=== PATIENT | male | born 1940 | race Caucasian/White ===

== ENCOUNTER 2023-05-15 23:54 | Emergency (ER) | payer MEDICARE, SELFPAY ==
[2023-05-15 23:58] VITALS: BP 175/82; PULSE 65; RESP 18; TEMP 36.4; O2SAT 97; BMI 30.5
--- NOTE | 2023-05-16 00:11 | ED.GENADUL1 ---
HPI - General Adult General Chief complaint: Abdominal Pain Stated complaint: BACK PAIN Time Seen by Provider: 05/16/23 00:06 History of Present Illness HPI narrative: patient presents complaining of right CVA and RLQ pain for past couple of days. Believes he may have a kidney stone. Thought at first it was a pulled muscle. No fever, nausea or urinary symptoms Onset (ago): day(s) Related Data Home Medications Medication Instructions Recorded Confirmed apixaban 5 mg tablet (Eliquis) mg 05/16/23 exenatide microspheres 2 mg/0.85 mg subcut 05/16/23 mL subcutaneous auto-injector ([employer]) levothyroxine 50 mcg tablet mcg 05/16/23 metformin 850 mg tablet mg 05/16/23 rosuvastatin 10 mg tablet mg 05/16/23 sacubitril 24 mg-valsartan 26 mg tab 05/16/23 tablet (Entresto) tamsulosin 0.4 mg capsule mg PO 05/16/23 Allergies Allergy/AdvReac Type Severity Reaction Status Date / Time No Known Drug Allergies Allergy Verified 05/16/23 00:03 Review of Systems ROS Status of ROS 10 or more systems reviewed and unremarkable except as noted in history and below PFSH PFSH Social History Smoking status: Former smoker Exam Constitutional Vital Signs, click to edit/add: Last Vital Signs Temp 97.6 F 05/15/23 23:58 Pulse 69 05/16/23 02:53 Resp 16 05/16/23 02:53 BP 178/72 H 05/16/23 02:53 Pulse Ox 97 05/16/23 02:53 O2 Del Method Room Air 05/16/23 02:53 Common normals: no apparent distress, average body habitus, oriented x3, no limitations, healthy appearing, alert and well nourished Eye Common normals: EOMs intact bilaterally and conjunctivae normal Respiratory Common normals: normal respiratory effort, no retractions and no use of accessory muscles Cardio Common normals: regular rate, regular rhythm, S1 normal heart sound and S2 normal heart sound GI Common normals: Normal to inspection, nondistended, normoactive bowel sounds present, soft to palpation and non-tender Back & Pelvis Other: No CVA tenderness Extremity Common normals: normal to inspection and full ROM Neuro Common normals: oriented x3, CN's II-XII intact bilaterally, moves all extremities and no focal motor deficits Psych Appearance: grossly normal Course Vital Signs Vital signs: Vital Signs Temperature 97.6 F 05/15/23 23:58 Pulse Rate 65 05/15/23 23:58 Respiratory Rate 18 05/15/23 23:58 Blood Pressure 175/82 H 05/15/23 23:58 Pulse Oximetry 97 05/15/23 23:58 Oxygen Delivery Method Room Air 05/15/23 23:58 Temperature 97.6 F 05/15/23 23:58 Pulse Rate 69 05/16/23 02:53 Respiratory Rate 16 05/16/23 02:53 Blood Pressure 178/72 H 05/16/23 02:53 Pulse Oximetry 97 05/16/23 02:53 Oxygen Delivery Method Room Air 05/16/23 02:53 Medical Decision Making MDM Narrative Medical decision making narrative: patient presents with right flank/CVA/RLQ pain for a couple of days. exam of these sites nontender. Past history of kidney stones. CT with findings of circumferential urinary bladder wall thickening measuring up to 7mm thick and mild perivesical stranding .Finding concerning for cystitis. Mild bilateral perinephric stranding/edema without radiopaque obstructing renal, ureteral or bladder stones. No hydronephrosis. Marked prostatomegaly protruding into the posterior urinary bladder wall. Also 2.2cm adrenal nodule . Urine not infected. Patient afebrile . WBC normal. Lipase elevated but patient does not have epigastric pain and CT pancreas is normal. bladder scan with 100cc urine. Patient is already on flomax. Advised to follow up with urology as his prostatomegaly may be underlying cause of his symptoms and CT renal tract findings. Lab Data Labs: Lab Results 05/16/23 05/16/23 Range/Units 00:15 00:24 WBC 7.0 (4.0-11.0) 10^3/uL RBC 4.26 L (4.70-6.10) 10^6/uL Hgb 13.4 L (14.0-18.0) g/dL Hct 42.0 (42.0-54.0) % MCV 98.6 H (80.0-94.0) fL MCH 31.5 (25.9-34.0) pg MCHC 31.9 (29.9-35.2) g/dL RDW 15.8 H (11.0-15.0) % Plt Count 271 (150-450) 10^3/uL MPV 10.3 (9.5-13.5) fL Neut % (Auto) 70.0 (43.0-75.0) % Lymph % (Auto) 16.7 L (20.5-60.0) % [place] % (Auto) 9.0 (1.7-12.0) % Eos % (Auto) 3.1 (0.9-7.0) % Baso % (Auto) 0.6 (0.2-2.0) % Neut # (Auto) 4.9 (1.4-6.5) 10^3/uL Lymph # (Auto) 1.2 (1.2-3.8) 10^3/uL [place] # (Auto) 0.6 (0.3-0.8) 10^3/uL Eos # (Auto) 0.2 (0.0-0.7) 10^3/uL Baso # (Auto) 0.0 (0.0-0.1) 10^3/uL Abs Immat Gran (auto) 0.04 H (0.00-0.03) 10^3/uL Imm/Tot Granulo (auto) 0.6 H (0.0-0.5) % Sodium 143 (136-145) mmol/L Potassium 4.0 (3.5-5.1) mmol/L Chloride 107 (98-107) mmol/L Carbon Dioxide 24.6 (21.0-32.0) mmol/L Anion Gap 15.4 BUN 17.0 (7.0-18.0) mg/dL Creatinine 1.13 (0.70-1.30) mg/dL Est GFR ( Amer) >60 (>=60) Est GFR (Non-Af Amer) >60 (>=60) BUN/Creatinine Ratio 15.0 Glucose 172 H (74-106) mg/dL Calcium 8.7 (8.5-10.1) mg/dL Total Bilirubin 0.7 (0.2-1.0) mg/dL AST 21 (15-37) U/L ALT 21 (16-63) U/L Alkaline Phosphatase 73 (46-116) U/L Total Protein 7.5 (6.4-8.2) g/dL Albumin 3.1 L (3.4-5.0) g/dL Globulin 4.4 g/dL Albumin/Globulin Ratio 0.7 Lipase 239.0 H (16.0-77.0) U/L Urine Color Lt. yellow (YELLOW) Urine Clarity Clear (CLEAR) Urine pH 6.0 (5.0-9.0) Ur Specific [place] 1.020 (1.005-1.025) Urine Protein 100 A (NEG/TRACE) mg/dL Urine Glucose (UA) 100 A (NEGATIVE) mg/dL Urine Ketones Negative (NEGATIVE) mg/dL Urine Occult Blood Trace-i (NEGATIVE) Urine Nitrite Negative (NEGATIVE) Urine Bilirubin Negative (NEGATIVE) Urine Urobilinogen 0.2 (0.2-1.0) EU/dL Ur Leukocyte Esterase Negative (NEGATIVE) Urine RBC 0-2 (0-2) #/HPF Urine WBC None seen (NONE SEEN) #/HPF Ur Squamous Epith Cells None seen (NONE/RARE) #/LPF Urine Crystals None seen (None Seen) #/HPF Urine Bacteria None seen (NONE SEEN) #/HPF Urine Casts None seen (NONE SEEN) #/LPF Urine Mucus None seen (NONE SEEN) Imaging Data Abdominal x-ray: Radiologist's impression: ITS Impressions Abdomen/Pelvis CT 05/16/23 00:13 IMPRESSION: Circumferential urinary bladder wall thickening measuring up to 7 mm thick and mild perivesical stranding. Finding is concerning for cystitis. Recommend close clinical attention and with urinalysis. Mild bilateral perinephric stranding/edema without radiopaque obstructing renal, ureteral, or urinary bladder stones. No hydronephrosis. 2.2 cm right adrenal nodule with internal punctate densities/calcifications. Recommend nonemergency dedicated adrenal mass imaging protocol to further evaluate. Marked prostamegaly protruding into the posterior urinary bladder wall. Multilevel lumbar disc herniations, facet arthropathy, and ligamentum flavum thickening greatest at L3-L4 and L4-L5 with severe spinal canal stenosis at these levels. Electronically authenticated by: ORVILLE HUGO Date: 05/16/2023 01:51 Discharge Plan Discharge Chief Complaint: Abdominal Pain Clinical Impression: Flank pain Patient Disposition: Home, Self-Care Prescriptions / Home Meds: No Action metformin 850 mg tablet tamsulosin 0.4 mg capsule PO levothyroxine 50 mcg tablet rosuvastatin 10 mg tablet Eliquis 5 mg tablet Entresto 24-26 mg tablet Bydureon BCise 2 mg/0.85 mL auto-injector SUBCUT Instructions: Flank Pain (ED) Additional Instructions: Follow up with Urology as discussed. (4) Rogers sent home, may take one every 4-6 hours as needed for pain Prescription for Norflex sent home, fill tmrw and can take one twice daily as needed. Stand Alone Forms: Portal Instructions Referrals: MARYLIN RAYMUNDO MD [Primary Care Provider] - 1 week Smooth Reis MD [Physician] - As soon as possible Discharge Date/Time: 05/16/23 03:14
--- NOTE | 2023-05-16 00:13 | CT_ITS ---
The [address] [address] Patient Name: SHAHID SANCHEZ MRN: [id number] date: 1940 Sex: M Assigned Patient Location: ER Current Patient Location: ER Accession/Order Number: [id number] Exam Date: 05/16/2023 00:38 Report Date: 05/16/2023 01:51 At the request of: CEDRIC HOPE Procedure: CT abdomen pelvis wo con EXAM: CT abdomen pelvis wo con HISTORY: kidney stone , right flank pain. Reported history of chronic kidney infections. COMPARISON: No comparison abdominal imaging available at the time of dictation. TECHNIQUE: Multiple axial views CT abdomen pelvis without IV contrast. Coronal sagittal reformats performed. FINDINGS: Visualized lung bases demonstrate small bilateral pleural effusions and scattered lung edema. Visualized cardiac apex is unremarkable. Partially visualized lead tip is within the right ventricle. Small hiatal hernia. Stomach is underdistended. No perigastric extraluminal free fluid/free air. Status post cholecystectomy. Liver, pancreas, spleen, and left adrenal gland are unremarkable. Circumferential urinary bladder wall thickening measuring up to 7 mm thick and mild perivesical stranding. Mild bilateral perinephric stranding/edema without radiopaque obstructing stones or hydronephrosis. 2.2 cm right adrenal nodule with internal punctate densities/calcifications. Prostamegaly measuring 5.3 cm transverse diameter and protruding into the posterior urinary bladder wall. Prior surgical changes of partial colectomy at the right large bowel. Appendix is not seen and likely surgically absent. Scattered colonic diverticula without pericolonic inflammatory stranding. Moderate amount of stool within the right large bowel. No evidence for small bowel obstruction, large ascites, or free air. Scattered heavy atherosclerotic calcifications of the abdominal aorta, celiac artery origin, superior mesenteric artery origin, bilateral renal arteries origin, and bilateral iliac arteries. Multilevel lumbar spondylosis with arthritic changes throughout the visualized bony structures. Multilevel lumbar disc herniations, facet arthropathy, and ligamentum flavum thickening greatest at L3-L4 and L4-L5 with severe spinal canal stenosis at these levels. CT/CT abdomen pelvis wo con IMPRESSION: Circumferential urinary bladder wall thickening measuring up to 7 mm thick and mild perivesical stranding. Finding is concerning for cystitis. Recommend close clinical attention and with urinalysis. Mild bilateral perinephric stranding/edema without radiopaque obstructing renal, ureteral, or urinary bladder stones. No hydronephrosis. 2.2 cm right adrenal nodule with internal punctate densities/calcifications. Recommend nonemergency dedicated adrenal mass imaging protocol to further evaluate. Marked prostamegaly protruding into the posterior urinary bladder wall. Multilevel lumbar disc herniations, facet arthropathy, and ligamentum flavum thickening greatest at L3-L4 and L4-L5 with severe spinal canal stenosis at these levels. Electronically authenticated by: ORVILLE HUGO Date: 05/16/2023 01:51
--- NOTE | 2023-05-16 00:22 | PC.NURSE ---
Pt came to ER for evaluation of right sided blank pain and a weak urine stream. States he has history of kidney infections. Iv started, labs drawn and urine obtained and sent to lab.
[2023-05-16 00:26] LABS: Basophils Percent Auto 0.6 % (0.2-2.0); Eosinophils Absolute Auto 0.2 10^3/uL (0.0-0.7); Eosinophils Percent Auto 3.1 % (0.9-7.0); Hemoglobin 13.4 g/dL (14.0-18.0); Immature Granulocytes Abs Auto 0.04 10^3/uL (0.00-0.03); Immature Granulocytes Pct Auto 0.6 % (0.0-0.5); Lymphocytes Absolute Auto 1.2 10^3/uL (1.2-3.8); Lymphocytes Percent Auto 16.7 % (20.5-60.0); Mean Corpuscular HGB Conc 31.9 g/dL (29.9-35.2); Mean Corpuscular Hemoglobin 31.5 pg (25.9-34.0); Mean Corpuscular Volume 98.6 fL (80.0-94.0); Mean Platelet Volume 10.3 fL (9.5-13.5); Monocytes Absolute Auto 0.6 10^3/uL (0.3-0.8); Neutrophils Absolute Auto 4.9 10^3/uL (1.4-6.5); Platelet Count 271 10^3/uL (150-450); Red Blood Count 4.26 10^6/uL (4.70-6.10); Red Cell Distribution Width 15.8 % (11.0-15.0)
[2023-05-16 00:30] LABS: Bilirubin Urine NEGATIVE (NEGATIVE); Blood Urine TRACE-I (NEGATIVE); Clarity Urine CLEAR (CLEAR); Color Urine LT. YELLOW (YELLOW); Glucose Urine UA 100 mg/dL (NEGATIVE); Ketones Urine NEGATIVE (NEGATIVE); Leukocyte Esterase Urine NEGATIVE (NEGATIVE); Nitrite Urine NEGATIVE (NEGATIVE); Protein Urine 100 mg/dL (NEG/TRACE); Urobilinogen Urine 0.2 EU/dL (0.2-1.0)
[2023-05-16 00:31] LABS: Urine Microscopic Indicated YES
[2023-05-16 00:38] LABS: Alanine Aminotransferase 21 U/L (16-63); Albumin Globulin Ratio 0.7; Albumin Level 3.1 g/dL (3.4-5.0); Alkaline Phosphatase 73 U/L (46-116); Anion Gap 15.4; Aspartate Amino Transferase 21 U/L (15-37); Bilirubin Total 0.7 mg/dL (0.2-1.0); Calcium 8.7 mg/dL (8.5-10.1); Carbon Dioxide 24.6 mmol/L (21.0-32.0); Chloride 107 mmol/L (98-107); Estimated GFR (African America >60 (>=60); Estimated GFR (Non-African Ame >60 (>=60); Globulin 4.4 g/dL; Glucose 172 mg/dL (74-106); Sodium 143 mmol/L (136-145); Total Protein 7.5 g/dL (6.4-8.2)
[2023-05-16 00:42] LABS: Bacteria Urine NONE SEEN #/HPF (NONE SEEN); Cast Seen? NONE SEEN #/LPF (NONE SEEN); Crystals Seen? None Seen #/HPF (None Seen); Mucus Urine NONE SEEN (NONE SEEN); RBC Urine 0-2 #/HPF (0-2); Squamous Epithelial Cell Urine NONE SEEN #/LPF (NONE/RARE); WBC Urine NONE SEEN #/HPF (NONE SEEN)
[2023-05-16 02:53] VITALS: BP 178/72; PULSE 69; RESP 16; O2SAT 97
[2023-05-16] MEDS: HYDROCODONE/ACET 5-325 MG TABLET 4 TAB PO (03:10)
--- NOTE | 2023-05-16 03:12 | PC.NURSE ---
Discussed discharge paperwork with pt. All questions answered. To-go norco and script sent home with pt. Number for urology provided and pt verbalized understanding to follow up this week. Pt ambulated off unit in stable condition.
== END 2023-05-16 03:14 | disposition home or self-care (01) ==
PROVIDERS: Emergency Provider Internal Medicine; PCP Internal Medicine
DX: R10.31 Right lower quadrant pain (principal); Z79.84 Long term (current) use of oral hypoglycemic drugs; Z79.899 Other long term (current) drug therapy; Z87.891 Personal history of nicotine dependence; Z87.442 Personal history of urinary calculi; M51.26 Other intervertebral disc displacement, lumbar region; N42.9 Disorder of prostate, unspecified; Z79.01 Long term (current) use of 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s; N32.89 Other specified disorders of bladder
CPT/HCPCS: 36415; 51798; 74176; 80053; 81001; 83690; 85025; 99284

== ENCOUNTER 2023-10-13 13:57 | Outpatient (OUT) | payer MEDICARE, SELFPAY ==
[2023-10-13 15:25] LABS: Basophils Percent Auto 0.4 % (0.2-2.0); Eosinophils Absolute Auto 0.2 10^3/uL (0.0-0.7); Eosinophils Percent Auto 2.8 % (0.9-7.0); Immature Granulocytes Abs Auto 0.02 10^3/uL (0.00-0.03); Immature Granulocytes Pct Auto 0.3 % (0.0-0.5); Lymphocytes Absolute Auto 1.5 10^3/uL (1.2-3.8); Lymphocytes Percent Auto 19.9 % (20.5-60.0); Mean Corpuscular HGB Conc 33.3 g/dL (29.9-35.2); Mean Corpuscular Hemoglobin 32.3 pg (25.9-34.0); Mean Corpuscular Volume 96.8 fL (80.0-94.0); Mean Platelet Volume 10.5 fL (9.5-13.5); Monocytes Absolute Auto 0.8 10^3/uL (0.3-0.8); Monocytes Percent Auto 11.1 % (1.7-12.0); Neutrophils Absolute Auto 4.8 10^3/uL (1.4-6.5); Neutrophils Percent Auto 65.5 % (43.0-75.0); Platelet Count 185 10^3/uL (150-450); Red Blood Count 2.48 10^6/uL (4.70-6.10); Red Cell Distribution Width 15.9 % (11.0-15.0); White Blood Count 7.4 10^3/uL (4.0-11.0)
== END 2023-10-13 13:58 | disposition home or self-care (01) ==
LOC: LAB 13:59
PROVIDERS: PCP Internal Medicine; Visit Provider Internal Medicine
DX: K92.2 Gastrointestinal hemorrhage, unspecified (principal); R04.0 Epistaxis
CPT/HCPCS: 36415; 85025

== ENCOUNTER 2023-10-18 09:35 | Outpatient (OUT) | payer MEDICARE, SELFPAY ==
[2023-10-18 10:30] LABS: Basophils Percent Auto 0.2 % (0.2-2.0); Eosinophils Absolute Auto 0.1 10^3/uL (0.0-0.7); Eosinophils Percent Auto 1.3 % (0.9-7.0); Hemoglobin 7.8 g/dL (14.0-18.0); Immature Granulocytes Abs Auto 0.08 10^3/uL (0.00-0.03); Immature Granulocytes Pct Auto 0.7 % (0.0-0.5); Lymphocytes Absolute Auto 0.8 10^3/uL (1.2-3.8); Mean Corpuscular HGB Conc 33.2 g/dL (29.9-35.2); Mean Corpuscular Hemoglobin 31.6 pg (25.9-34.0); Mean Corpuscular Volume 95.1 fL (80.0-94.0); Mean Platelet Volume 9.5 fL (9.5-13.5); Monocytes Absolute Auto 0.2 10^3/uL (0.3-0.8); Monocytes Percent Auto 1.6 % (1.7-12.0); Neutrophils Absolute Auto 9.5 10^3/uL (1.4-6.5); Neutrophils Percent Auto 89.2 % (43.0-75.0); Platelet Count 235 10^3/uL (150-450); Red Blood Count 2.47 10^6/uL (4.70-6.10); Red Cell Distribution Width 15.6 % (11.0-15.0); White Blood Count 10.7 10^3/uL (4.0-11.0)
[2023-10-18 10:47] LABS: Hematocrit 23.5 % (42.0-54.0)
== END 2023-10-18 09:36 | disposition home or self-care (01) ==
PROVIDERS: PCP Internal Medicine; Visit Provider Internal Medicine
DX: D50.9 Iron deficiency anemia, unspecified (principal); K92.2 Gastrointestinal hemorrhage, unspecified; R04.0 Epistaxis
CPT/HCPCS: 36415; 85025

== ENCOUNTER 2023-10-18 09:50 | Emergency (ER) | payer MEDICARE, SELFPAY ==
[2023-10-18 09:59] VITALS: BP 118/55; PULSE 48; TEMP 36.6; O2SAT 97; BMI 40.3
[2023-10-18 10:06] VITALS: O2SAT 98
--- NOTE | 2023-10-18 10:52 | CT_ITS ---
The [address] [address] Patient Name: SHAHID SANCHEZ MRN: [id number] date: 1940 Sex: M Assigned Patient Location: ER Current Patient Location: Accession/Order Number: [id number] Exam Date: 10/18/2023 11:07 Report Date: 10/18/2023 14:04 At the request of: NOEL AGUERO Procedure: CT head/brain wo con CT HEAD WITHOUT CONTRAST, 10/18/2023 HISTORY: The patient fell this morning. Right hip pain. COMPARISON: None. TECHNIQUE: Noncontrast axial CT images obtained through the head. Reconstructions obtained in the sagittal and coronal planes. Dose reduction techniques were achieved by using automated exposure control and/or adjustment of mA and/or kV according to patient size and/or use of iterative reconstruction technique. FINDINGS: The paranasal sinuses are clear. The mastoid air cells are clear. No skull lesion. Prior cataract surgery. Extracranial soft tissue structures are unremarkable. Moderate brain atrophy. No hydrocephalus. No mass effect. No shift of midline. 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 Small chronic cortical infarct posteriorly in the right frontal lobe. Santamaria matter and white matter differentiation normal. No hemorrhage. No mass. No edema in the brain. The cerebellum is unremarkable. CT/CT head/brain wo con IMPRESSION: 1. No acute findings. No acute intracranial hemorrhage. No skull fracture. 2. Brain atrophy. No hydrocephalus. Electronically authenticated by: SHUN HERNADEZ Date: 10/18/2023 14:04
--- NOTE | 2023-10-18 10:55 | CT_ITS ---
The [address] [address] Patient Name: SHAHID SANCHEZ MRN: [id number] date: 1940 Sex: M Assigned Patient Location: ER Current Patient Location: ER Accession/Order Number: [id number] Exam Date: 10/18/2023 11:07 Report Date: 10/18/2023 11:36 At the request of: NOEL AGUERO Procedure: CT hip RT wo con PROCEDURE: CT hip RT wo con COMPARISON: None. HISTORY: right hip pain FINDINGS: BONES:No acute fracture or dislocation. Mild hip osteoarthritis with marginal osteophyte formation. Mild enthesopathic spurring of the greater trochanter. SOFT TISSUES:Negative. No visible soft tissue swelling. EFFUSION:None visible. OTHER: Extensive atherosclerosis CT/CT hip RT wo con IMPRESSION: No acute fracture Electronically authenticated by: MAXIM ELLIS Date: 10/18/2023 11:36
[2023-10-18] MEDS: HYDROCODONE/ACET 5-325 MG TABLET 1 TAB PO (11:00)
[2023-10-18] MEDS: ONDANSETRON 4 MG RAPDIS TABLET SL (11:00)
--- NOTE | 2023-10-18 11:04 | ED_ITS ---
HPI HPI - General Adult General Chief complaint: Extremity Injury, Upper Stated complaint: FALL, RIGHT SIDE EXTREMITY PAIN Time Seen by Provider: 10/18/23 10:27 Source: patient Mode of arrival: Wheelchair Limitations: no limitations History of Present Illness HPI narrative: Patient is a 83-year-old male who is presenting with multiple complaints of myalgia, arthralgia, stiff and sore after a fall 2 days ago. Patient had a mechanical fall, patient lost his balance using a walker and fell forward, he was not lightheaded, dizzy, no chest pain or shortness of breath at that time. Patient says that he is becoming more short of breath with exertion, he does wear oxygen at home. Patient is due to have open heart surgery in October today to have the valve replaced at [facility] Patient daughter is at bedside. Patient was here to do outpatient lab work today. Patient is on Eliquis, patient did fall and did hit his head 2 days ago. He has no headache, mild soreness to both sides of his neck. Patient has no headache, no no significant nausea or vomiting. However with position changes he did have mild nausea, but he correlates this secondary to pain is causing him to have nausea. Patient took nothing for pain at home today because he was not sure what he could take for pain for his surgery that is in 2 and half to 3 weeks away from today. Patient has no chest pain or shortness of breath. Patient does have right shoulder pain, right hip pain, with any type of movement patient is moaning with aches and pains. Has not done any ice, no Tylenol, nothing for pain yesterday or today. No heat. Patient has a history of intermittent epistaxis, no acute bleeding from his nose today. Patient has seen ENT Dr. Norman for this. Pay has a history rheumatoid arthritis. All systems are negative except as noted/marked. All systems reviewed and otherwise negative. Nurses note and vital signs reviewed and patient is not hypoxic. General: The patient appears mild distress secondary to diffuse myalgia and arthralgia. Patient is resting uncomfortably on cart. Patient is not toxic, lethargic, or listless Skin: Warm, dry, no pallor noted. There is no rash noted. No petechiae, purpura. Head: Normocephalic, atraumatic, no scalp hematoma. No signs of trauma to his head or scalp. No midline cervical tenderness palpation. Patient does not have any paracervical tenderness to palpation to soft tissues, full range of motion of cervical spine with minimal pain. Eye: Normal conjunctiva, no drainage, EOMI. PERRL Ears, Nose, Mouth, and Throat: oral mucosa is moist. Nares patent. Mouth without vesicles. Cardiovascular: Regular Rate and Rhythm, no murmur, gallop, rub Respiratory: Patient is in no distress, no accessory muscle use, lungs are clear to auscultation, no wheezing, rales or rhonchi Back: non-tender, no CVA tenderness bilaterally to percussion. No CT LS midline pain GI: no tenderness to palpation, no masses appreciated. No rebound, guarding, or rigidity noted. No distention Musculoskeletal: Patient has full range of motion of all of the extremities which is normal for him, he does have mild pain with flexion extension abduction of right shoulder and left shoulder, but no acute signs of fracture or dislocation. Patient does have moderate tenderness to the right hip with internal/external rotation and flexion of the right hip. It appears patient is more sore, but imaging will be done. Patient has mild tenderness to palpation to bilateral ASIS. Full range of motion of left lower extremity with no si gnificant pain. 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 No secondary signs of infection. No motor, sensory, or focal neurological deficits Neurological: A&O x4, normal speech Psychiatric: Cooperative Related Data Home Medications ?Medication ?Instructions ?Recorded ?Confirmed apixaban 5 mg tablet (Eliquis) mg 05/16/23 exenatide microspheres 2 mg/0.85 mg subcut 05/16/23 mL subcutaneous auto-injector ([place]) levothyroxine 50 mcg tablet mcg 05/16/23 metformin 850 mg tablet mg 05/16/23 rosuvastatin 10 mg tablet mg 05/16/23 sacubitril 24 mg-valsartan 26 mg tab 05/16/23 tablet (Entresto) tamsulosin 0.4 mg capsule mg PO 05/16/23 Previous Rx's ?Medication ?Instructions ?Recorded hydrocodone 5 mg-acetaminophen 325 1 tab PO Q4H PRN pain #10 tabs 10/18/23 mg tablet methocarbamol 500 mg tablet 500 mg PO Q8H PRN muscle pain #10 10/18/23 tabs Allergies Allergy/AdvReac Type Severity Reaction Status Date / Time No Known Drug Allergies Allergy Verified 05/16/23 00:03 Opioid HPI Opioid Management Most Recent Opioid Data: Last Pain Scale 10 10/18/23 11:00 Last ED Pain Assessment 10/18/23 10:12 Last MAR Pain Assessment 10/18/23 11:00 PFSH PFSH Social History Smoking status: Former smoker Exam Constitutional Vital Signs, click to edit/add: Last Vital Signs Temp 97.8 F 10/18/23 09:59 Pulse 48 L 10/18/23 09:59 Resp 18 10/18/23 09:59 BP 118/55 10/18/23 09:59 Pulse Ox 98 10/18/23 10:06 O2 Del Method Room Air 10/18/23 10:06 O2 Flow Rate 4 10/18/23 10:06 Course Vital Signs Vital signs: Vital Signs Temperature 97.8 F 10/18/23 09:59 Pulse Rate 48 L 10/18/23 09:59 Respiratory Rate 18 10/18/23 09:59 Blood Pressure 118/55 10/18/23 09:59 Pulse Oximetry 97 10/18/23 09:59 Oxygen Delivery Method Room Air 10/18/23 09:59 Temperature 97.8 F 10/18/23 09:59 Pulse Rate 48 L 10/18/23 09:59 Respiratory Rate 18 10/18/23 09:59 Blood Pressure 118/55 10/18/23 09:59 Pulse Oximetry 98 10/18/23 10:06 Oxygen Delivery Method Room Air 10/18/23 10:06 Oxygen Delivery Flow Rate 4 10/18/23 10:06 Medical Decision Making [facility] Narrative Medical decision making narrative: Patient CT of the brain shows no acute findings, CT of the hip and pelvis showed no acute findings. Patient was given a Lisman. Education was done at bedside and using either Tylenol or Lisman, but not together so the patient does not actually take too much Tylenol for pain. He was prescribed Lisman and Robaxin. Patient was educated using ice, stretching. At discharge time, Dr. Nichole had called, stating that patient's hemoglobin was 7.8 his lab draw from this morning. He did not recommend to give patient any type of blood now, he recommended that patient to stop the methotrexate from now until his open heart surgery and he will follow-up with the patient as an outpatient. Patient and daughter are aware of this. This was placed on patient's discharge paperwork as well. Discharge Plan Discharge Stand Alone Forms: Portal Instructions Chief Complaint: Extremity Injury, Upper Clinical Impression: Pain in right shoulder, CHI (closed head injury), Contusion of hip, right, Fall, Myalgia, Arthralgia Patient Disposition: Home, Self-Care Time of Disposition Decision: 13:09 Condition: Fair Prescriptions / Home Meds: New methocarbamol 500 mg tablet 500 mg PO Q8H PRN (Reason: muscle pain) Qty: 10 0RF hydrocodone-acetaminophen 5-325 mg tablet 1 tab PO Q4H PRN (Reason: pain) Qty: 10 0RF No Action metformin 850 mg tablet tamsulosin 0.4 mg capsule PO levothyroxine 50 mcg tablet rosuvastatin 10 mg tablet Eliquis 5 mg tablet Entresto 24-26 mg tablet Bydureon BCise 2 mg/0.85 mL auto-injector SUBCUT Print Language: Angolan Instructions: Head Injury (ED), Musculoskeletal Pain (ED), Arthralgia (ED), Fall Prevention (ED), Shoulder Pain (ED), Hip Contusion (ED) Additional Instructions: Dr. Nichole called the ER at discharge time. Your hemoglobin is 7.8 on your blood work drawn today. Stop taking your methotrexate for the next several months until restarted by Dr. Nichole A copy of your CAT scan of your head and right hip/pelvis was given to you as well, no acute fracture today. Do not use heat, use ice 20 minutes on, 20 minutes off. Use Tylenol every 4 hours as needed for pain. If you are having severe pain, use Lisman instead of Tylenol, but do not take Lisman and Tylenol together, you could accidentally be taking too much pain medication. Follow-up with PCP for further recommendations. Referrals: MARYLIN RAYMUNDO DO [Primary Care Provider] - 1 week
[2023-10-18 13:25] VITALS: TEMP 36.4
--- NOTE | 2023-10-18 13:48 | PC.NURSE ---
Patient left with our oxygen tank due to his being missing in action. I located the tank after he had already left. Contacted patient and told them they could pick their tank up at their convience.
== END 2023-10-18 13:26 | disposition home or self-care (01) ==
PROVIDERS: Emergency Provider Emergency Medicine; PCP Internal Medicine
DX: D50.9 Iron deficiency anemia, unspecified (principal); K92.2 Gastrointestinal hemorrhage, unspecified; R04.0 Epistaxis; Z79.01 Long term (current) use of 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s; Z99.81 Dependence on supplemental oxygen; M06.9 Rheumatoid arthritis, unspecified; Z87.891 Personal history of nicotine dependence; M25.511 Pain in right shoulder; S09.8XXA Other specified injuries of head, initial encounter; S70.01XA Contusion of right hip, initial encounter; M79.10 Myalgia, unspecified site; M25.50 Pain in unspecified joint; W19.XXXA Unspecified fall, initial encounter
CPT/HCPCS: 36415; 70450; 73700; 85025; 99284; Q0162

== ENCOUNTER 2023-11-16 12:45 | Outpatient (OUT) | payer MEDICARE, SELFPAY ==
[2023-11-16 12:58] LABS: Basophils Absolute Auto 0.1 10^3/uL (0.0-0.1); Basophils Percent Auto 0.7 % (0.2-2.0); Eosinophils Absolute Auto 0.2 10^3/uL (0.0-0.7); Hematocrit 29.8 % (42.0-54.0); Hemoglobin 9.9 g/dL (14.0-18.0); Immature Granulocytes Abs Auto 0.07 10^3/uL (0.00-0.03); Immature Granulocytes Pct Auto 0.8 % (0.0-0.5); Lymphocytes Absolute Auto 1.8 10^3/uL (1.2-3.8); Lymphocytes Percent Auto 19.5 % (20.5-60.0); Mean Corpuscular HGB Conc 33.2 g/dL (29.9-35.2); Mean Corpuscular Hemoglobin 32.7 pg (25.9-34.0); Mean Corpuscular Volume 98.3 fL (80.0-94.0); Monocytes Absolute Auto 0.8 10^3/uL (0.3-0.8); Monocytes Percent Auto 8.7 % (1.7-12.0); Neutrophils Absolute Auto 6.3 10^3/uL (1.4-6.5); Neutrophils Percent Auto 68.3 % (43.0-75.0); Platelet Count 208 10^3/uL (150-450); Red Blood Count 3.03 10^6/uL (4.70-6.10); Red Cell Distribution Width 16.7 % (11.0-15.0); White Blood Count 9.2 10^3/uL (4.0-11.0)
[2023-11-16 13:29] LABS: BUN Creatinine Ratio 16.1; Calcium 8.7 mg/dL (8.5-10.1); Carbon Dioxide 28.5 mmol/L (21.0-32.0); Chloride 102 mmol/L (98-107); Estimated GFR (African America 48 (>=60); Estimated GFR (Non-African Ame 39 (>=60); Glucose 185 mg/dL (74-106); Potassium 3.5 mmol/L (3.5-5.1); Sodium 140 mmol/L (136-145)
== END 2023-11-16 12:46 | disposition home or self-care (01) ==
LOC: LAB 12:47
PROVIDERS: PCP Internal Medicine
DX: I35.0 Nonrheumatic aortic (valve) stenosis (principal); Z95.2 Presence of prosthetic heart valve
CPT/HCPCS: 36415; 80048; 85025

== ENCOUNTER 2024-01-04 14:55 | Outpatient (RCR) | payer MEDICARE, SELFPAY | END 2024-01-05 16:50 | disposition home or self-care (01) | LOC: PT 14:55 | PROVIDERS: PCP Internal Medicine; Visit Provider Internal Medicine | DX: M54.50 Low back pain, unspecified (principal); R27.0 Ataxia, unspecified | CPT/HCPCS: 97012; 97110; 97162 ==

== ENCOUNTER 2024-05-12 12:51 | Outpatient (RCR) | payer MEDICARE, SELFPAY | END 2024-05-13 10:41 | disposition home or self-care (01) | LOC: PT 12:51 | PROVIDERS: PCP Internal Medicine; Visit Provider Internal Medicine | DX: R27.0 Ataxia, unspecified (principal) | CPT/HCPCS: 97162 ==

== ENCOUNTER 2024-08-01 14:04 | Outpatient (OUT) | payer MEDICARE, SELFPAY ==
--- NOTE | 2024-08-01 14:22 | XR_ITS ---
The [address] [address] Patient Name: SHAHID SANCHEZ MRN: [id number] date: 1940 Sex: M Assigned Patient Location: [facility] Current Patient Location: [facility] Accession/Order Number: [id number] Exam Date: 08/01/2024 14:29 Report Date: 08/01/2024 14:30 At the request of: HELEN CASAS DO Procedure: XR chest 2V Chest 2 views CLINICAL HISTORY: Shortness Of Breath COMPARISON: None FINDINGS: Pacemaker device in place. Heart valve replacement. Cardiomegaly with mild vascular congestion. No consolidation pneumothorax pleural effusion or free air. XR/XR chest 2V IMPRESSION: CHF FINDINGS. NO CONSOLIDATION TO SUGGEST PNEUMONIA. Impression dictated by: Ricardo Francisco Jr., D.O. 08/01/2024 2:30 PM Dictation Location: [place] [address] Electronically authenticated by: [id number] Y Date: 08/01/2024 14:30
== END 2024-08-01 14:05 | disposition home or self-care (01) ==
LOC: RAD 14:05
PROVIDERS: PCP Internal Medicine; Visit Provider Internal Medicine
DX: R06.02 Shortness of breath (principal)
CPT/HCPCS: 71046

== ENCOUNTER 2024-08-03 13:00 | Outpatient (OUT) | payer MEDICARE, SELFPAY ==
--- NOTE | 2024-08-03 14:56 | RT_ITS ---
The [facility] Test Date: 2024-08-03 Pat Name: SHAHID SANCHEZ Department: Room: - Gender: Male Head Silverman: Wendy Collado RRT : 1940 Requested By: Kelvin Steiner Order Number: [id number] Reading MD: Kelvin Steiner Interpretive Statements Pulmonary function testing was completed according to ATS criteria. Findings were considered accurate and reproducible, with exception of DLCO which did not meet ATS standards. Both pre- and post-bronchodilator values utilized for spirometry. Spirometry (based on pre-bronchodilator values): -FEV1/FVC: Low normal @ 70% -FEV1: Normal @ 92% -FVC: Normal @ 92% -There is no significant bronchodilator response. Lung volumes by plethysmography (based on pre-bronchodilator values): -RV: Low normal @ 81% -TLC: Low normal @ 80% Diffusion capacity: -DLCO: Very severe reduction @ 29% when corrected for Hb 10g/dL Impressions: -Spirometry trends towards a mild obstruction pattern. There is no bronchodilator response. Lung volumes are normal. Very severe diffusion impairment out of proportion to remainder of testing which may be due in part to inability to meet ATS criteria for DLCO testing. Overall study suggests COPD/emphysema. Clinical correlation required. Electronically Signed On 08-07-2024 8:00:59 EDT by Kelvin Steiner
[2024-08-03] MEDS: ALBUTEROL SULFATE 2.5 MG/3 ML VIAL NEB IH (14:58)
--- NOTE | 2024-08-07 16:11 | W.PM.PROCNOT ---
Procedure: 6-Minute Walk (6MW) Date of 6MW: 08/03/2024 Indication: Dyspnea MMRC: 2 Resting data: -HR: 66 -BP: 143/65 -SpO2: 93% -FiO2: Room air -Hugo: 0 Protocol: -6MW was initiated according to standard protocol. Total walk duration was 2 minutes until he desaturated to 87% on room air. 2L/min O2 was applied and patient was rested. -A new 6MW was initiated according to standard protocol. Total walk duration was 6 minutes with lowest SpO2 @ 83% on 3L/min at the 6 minute luis; he was placed on 4L/min. Highest Hugo was 5. Recovery data: -HR: 71 -BP: 160/68 -SpO2: 100% -FiO2: 4L/min -Hugo: 0 Number of stops: None Total walk distance: 125m, which is 42% of predicted walk distance. Impressions: -Normal resting oxygenation. Ambulatory desaturations requiring 4L/min supplemental O2. Reduced walk distance. Recommendations: -4L/min O2 with ambulation/activity. Clinical correlation required.
== END 2024-08-03 13:01 | disposition home or self-care (01) ==
LOC: CARD 13:00
PROVIDERS: PCP Internal Medicine; Visit Provider Internal Medicine
DX: R06.02 Shortness of breath (principal)
CPT/HCPCS: 36415; 82805; 85018; 94060; 94618; 94726; 94729

== ENCOUNTER 2024-08-14 13:44 | Outpatient (OUT) | payer MEDICARE, SELFPAY ==
[2024-08-14 14:04] LABS: ABG PCO2 31.7 mmHg (35.0-45.0); pH ABG 7.461 (7.350-7.450)
[2024-08-14 14:05] LABS: Allen Test POSITIVE (POSITIVE); Base Excess ABG -1.2 mmol/L (-2.0-2.0); HCO3 ABG 22.6 mmol/L (22.0-26.0); O2 Mode ROOM AIR; Oxygen Saturation ABG 87.3 %; Puncture Site RT BRACH
[2024-08-14 14:10] LABS: PO2 ABG 50.3 mmHg (80.0-100.0)
== END 2024-08-14 13:45 | disposition home or self-care (01) ==
LOC: CARD 13:44
PROVIDERS: PCP Internal Medicine; Visit Provider Internal Medicine
DX: R06.02 Shortness of breath (principal)
CPT/HCPCS: 36600; 82805

== ENCOUNTER 2024-08-17 12:42 | Outpatient (OUT) | payer MEDICARE, SELFPAY ==
--- OUTSIDE RECORDS SUMMARY | 2020-07-02 16:20 | XMS_ITS | Continuity of Care Document ---
Author Name [facility] Organization [facility] Care Team Providers Care Pump Tender Name Role Phone [facility] Unavailable Unavailable Problems Combined list of problems from Department of [facility] and [facility] Affairs facilities. It does not include entries that were removed or entered in error. Problem Status Onset Date Problem Type Date of Resolution Comments Source Diabetes mellitus Active Condition [facility] Rheumatoid arthritis Active Condition [facility] Medications Combined list of outpatient medications from Department of [facility] and [facility] facilities.Medications provided include 1) outpatient medications from the last 15 months, and 2) patient-reported medications. Medication Details Route Status Patient Instructions Prescription Expires Prescription Number Last Dispense Date Ordering Provider Order Date Order Qty Source CHOLECALCIF VINH TAB TAKE BY MOUTH EVERY DAY ORAL ACTIVE HARRY VELAZQUEZ [facility] TAKE BY MOUTH EVERY DAY ORAL ACTIVE [facility]QUEZ 2020 [facility] INFLIXIMAB INJ,LYPHL INJECT IV PIGGYBAC K INTRAV ENOUS ACTIVE HARRY VELAZQUEZ 2020 [facility] METFORMIN TAB,ORAL TAKE BY MOUTH TWICE A DAY WITH MEALS LUDIN ACTIVE HARRY VELAZQUEZ 2020 [facility] METHOTREXAT E TAB TAKE BY MOUTH EVERY WEEK ORAL ACTIVE HARRY VELAZQUEZ 2020 [facility] OLMESARTAN MEDOXOMIL TAB TAKE BY MOUTH EVERY DAY ORAL ACTIVE HARRY VELAZQUEZ 2020 [facility] ROSUVASTATI N CALCIUM TAB TAKE BY MOUTH AT BEDTIME HARRY MOON 2020 [facility] SEMAGLUTIDE PEN INJ,SOLN INJECT SUBCUTAN EOUSLY EVERY WEEK SUBCUT ANEOUS ACTIVE HARRY VELAZQUEZ 2020 [facility] ZINC SUPPLEMENT CAP/ TAB TAKE BY MOUTH EVERY DAY ORAL ACTIVE HARRY VELAZQUEZ 2020 [facility] Immunizations Combined list of available immunizations from the Department of Defense and Veterans Affairs facilities. Immunization Series Date Given Administered By Site Reaction Lot Number CVX Code Drug Malt Liquors Sales Supervisor Status Comments Source INFLUENZA (HISTORICAL) [address] Michelle [facility] Social History Combined list of available smoking, tobacco, and other social history from Department of Defense and Veterans Affairs facilities. Social History Type Response Date Comment Sour e Tobacco smoking status NHIS VA-TOBACCO FORMER USER 06/21/2018 [facility] GRANDA History of tobacco use [place]-TOBACCO QUIT 1 5 YRS OR MORE 06/21/2018 [facility] GRANDA
--- OUTSIDE RECORDS SUMMARY | 2024-08-12 05:22 | XMS_ITS | Continuity of Care Document ---
Author Organization [facility] Address [address] [place] [address] Phone Care Team Providers [employer] Organizer Name Role Phone Al Martinez JR Primary Care Provider [phone] Floyd Bolton MD Attending Provider [phone] Aleida Valle MD Attending Provider [phone] Care Teams Patient Care Team Team Status: Active Member Role Status Dates Al Martinez JR DO Primary Care Provider Active Visit Care Team Team Status: Inactive Member Role Status Dates Al Martinez JR DO Primary Care Provider Active Start: June 08, 2024 End: June 08, 2024 Floyd Bolton MD Attending Provider Active St art: June 08, 2024 End: June 08, 2024 Visit Care Team Team Status: Active Member Role Status Dates Al Martinez JR DO Primary Care Provider Active Start: July 07, 2024 Aleida Valle MD Other Provider Active St art: July 07, 2024 Kana Mcdonough MD Attending Provider Active Start: July 07, 2024 Visit Care Team Team Status: Inactive Member Role Status Dates Al Martinez JR DO Primary Care Provider Active Start: July 07, 2024 End: July 07, 2024 Aleida Valle MD Attending Provider Active Start: July 07, 2024 End: July 07, 2024 Patient Care Team Team Status: Inactive Member Role Status Dates Al Martinez JR DO Primary Care Provider Active Start: August 08, 2024 End: August 08, 2024 Floyd Bolton MD Attending Provider Active St art: August 08, 2024 End: August 08, 2024 Chief Complaint and Reason for Visit Chief Complaint Admit Date M05.79 M15.0 Z79.899 June 08, 2024 10 :18am SSS July 07, 2024 11: 00am SSS July 07, 2024 11: 18am Allergies, Adverse Reactions, Alerts No known allergies Social History Smoking Status Status Start Date End Date Date of Observa tion Ex-smoker (finding) September 4:00pm Observation Status Observation Response Date of Response Patient Sex Male August 09, 2024 1 2:06am Assigned Sex Male October 07 Family History Relationship Condition Age at Onset Recorded Date/T louise father Diabetes mellitus Unknown sister Malignant neoplasm Unknown sister Malignant neoplasm Unknown brother Heart failure Unknown father Diabetes mellitus Unknown mother Malignant neoplasm Unknown Malignant neoplasm of breast Unknown sister Unknown Malignant neoplasm Unknown sister Malignant neoplasm Unknown Unknown Problems Active Problems Medical Problem Onset Date Status Rheumatoid arthritis Active Acute respiratory failure with hypoxia Active Diabetes mellitus, type 2 Active Anemia Active Aortic stenosis Active Sick sinus syndrome Active Hypercholesteremia Active Hypothyroidism Active Chronic kidney disease Active Severe aortic stenosis Active Hypertension Active Hypokalemia Active Inactive/Resolved Problems Medical Problem Onset Date Status MAYLIN (acute kidney injury) Resolv ed Acute anemia Resolved Acute on chronic anemia Resolved Chronic systolic dysfunction of left ventricle Resolved Acute exacerbation of CHF (congestive heart fail ure) Resolved GI (gastrointestinal bleed) Reso lved Heart block, AV Resolved A-fib Resolved Pulmonary hypertension Resolved Hyponatremia Resolved Acute kidney injury superimposed on CKD Resolved Acute systolic (congestive) heart failure Resolved Acute hyponatremia Resolved Acute on chronic systolic (congestive) heart lizbet lure Resolved Medications Medication Status Dose Units Route Directions Qty Days St art Date Stop Date End Date Instructions Pioglitazone 15 mg tablet Discont inued 1 TAB PO Daily Dece er 2016 1:00am August 09, 2017 8:13a m Metformin 500 mg tablet Discont inued 1 TAB PO As Directed Decemb er 2016 1:00am September 09, 2017 9:56a m Clopidogrel 75 mg tablet Discont inued 1 TAB PO Daily Decemb er 2016 1:00am September 09, 2017 9:55a m Tramadol 50 mg tablet Discont inued 1 TAB PO As Directed Decemb er 2016 1:00am August 09, 2017 8:14a m Methotrexate Sodium 2.5 mg tablet Discont inued 1 TAB PO As Directed Decemb er 2016 1:00am September 09, 2017 9:56a m Finasteride 5 mg tablet Discont inued 1 TAB PO Daily Decemb er 2016 1:00am August 09, 2017 8:11a m Olmesartan 40 mg tablet Discont inued 1 TAB PO Daily Dece er 2016 1:00am August 09, 2017 8:12a m Rosuvastatin 10 mg tablet Discont inued 1 TAB PO Daily Dece er 2016 1:00am August 09, 2017 8:13a m Mirabegron (Myrbetriq) 50 mg tablet extended release 24 hr Discont inued 1 TAB PO As Directed Decemb er 2016 1:00am August 09, 2017 8:12a m Empagliflozi n (Jardiance) 10 mg tablet Discont inued 1 TAB PO As Directed Dece er 2016 1:00am August 09, 2017 8:09a m Liraglutide (Victoza 2-Mike) 0.6 mg/0.1 mL (18 mg/3 mL) Pen Injector Discont inued 1.8 MG SUBCUT daily August 09, 2017 12:00a m September 09, 2017 9:55a m Infliximab (Remicade) 100 mg Recon Soln Discont inued 0 mg/kg IV Once August 09, 2017 12:00a m September 09, 2017 9:55a m Please contact the information source for Protocol details. Metoprolol Tartrate 25 mg tablet Discont inued 25 MG PO Daily September 09, 2023 12:00a m September 15, 2023 6:54p m Furosemide 40 mg tablet Discont inued 80 MG PO Twice daily September 09, 2023 12:00a m October 26, 2023 10:10 am Patient takes 2 in the morning and 2 at 1500 states he started this 2 weeks ago Metoprolol Succinate 50 mg Tablet Extended Release 24 Hr Active 50 MG PO Daily September 15, 2023 12:00a m Spironolacto ne 25 mg Tablet Discont inued 25 MG PO Daily September 15, 2023 12:00a m October 26, 2023 10:10 am Valsartan 40 mg tablet Discont inued 40 MG PO Daily September 15, 2023 12:00a m October 26, 2023 10:10 am Aspirin (Aspirin Low Dose) 81 mg Tablet,Delay ed Release (Dr/Ec) Discont inued 81 MG PO Daily September 09, 2017 12:00a m [facility] 2022 10:48 am Cephalexin 500 mg Capsule Discont inued 500 MG PO Q12H September 09, 2017 12:00a m [facility] 2022 10:49 am Gabapentin 300 mg Capsule Discont inued 1 CAP PO Three times daily September 09, 2017 12:00a m [facility] 2022 10:50 am Empagliflozi n (Jardiance) 10 mg Tablet Discont inued 10 MG PO Daily September 09, 2017 12:00a m [facility] 2022 10:50 am Metformin 850 mg tablet Discont inued 850 MG PO Daily [facility] [address] 2022 1:00am October 26, 2023 10:10 am Folic Acid 20 mg Capsule Active 20 MG PO Daily [facility] [address] 2022 1:00am Methenamine Hippurate (Hiprex) 1 gram tablet Active 1 GM PO Twice daily [facility] [address] 2022 1:00am Methotrexate Sodium 2.5 mg tablet Discont inued 15 MG PO every week [facility] [address] 2022 1:00am October 19, 2023 2:46p m wednesdays Tamsulosin 0.4 mg capsule Active 0.4 MG PO Bedtime [facility] [address] 2022 1:00am Levothyroxin e 50 mcg tablet Active 50 MCG PO Daily [facility] [address] 2022 1:00am take 2 on sundays, 1 daily other days Infliximab (Remicade) 100 mg Recon Soln Discont inued 0 .ROUTE .COMPLEX [facility] [address] 2022 1:00am October 19, 2023 2:46p m as directed. pt. states approx every 8 weeks Montelukast (Singulair) 10 mg Tablet Active 10 MG PO Daily [facility] [address] 2022 1:00am Wednesday ,wednesday, and wednesday Dutasteride 0.5 mg capsule Active 0.5 MG PO Every evening [facility] [address] 2022 1:00am Rosuvastatin (Crestor) 10 mg Tablet Active 10 MG PO 4 times per week [facility] [address] 2022 1:00am Wednesday, Wednesday, Wednesday and Wednesday Cholecalcife rol (Vitamin D3) (Vitamin D3) 25 mcg (1,000 unit) Tablet,Chewa ble Active 25 MCG PO Daily [facility] [address] 2022 1:00am Apixaban (Eliquis) 5 mg Tablet Discont inued 5 MG PO Twice daily [facility] [address] 2022 1:00am October 26, 2023 10:10 am Sacubitril-V alsartan (Entresto) 24-26 mg tablet Discont inued 1 TAB PO Twice daily [facility] [address] 2022 1:00am September 15, 2023 6:54p m Exenatide Microspheres (Bydureon Bcise) 2 mg/0.85 mL auto-injecto r Discont inued 2 MG SUBCUT every week [facility] [address] 2022 1:00am October 19, 2023 2:46p m mondays Finerenone (Kerendia) 20 mg Tablet Discont inued 20 MG PO Daily [facility] [address] 2022 1:00am September 09, 2023 12:12 pm Clindamycin Hcl 300 mg capsule Discont inued 600 MG PO Three times daily 12 2 [facility] [address] 2022 1:00am September 09, 2023 12:11 pm Vericiguat (Verquvo) 10 mg tablet Active 10 MG PO Daily October 19, 2023 12:00a m Hydrocodone- Acetaminophe n 5-325 mg tablet Discont inued 1 TAB PO Every 4 hours as needed for pain October 19, 2023 12:00a m October 26, 2023 11:20 am Methocarbamo l 500 mg tablet Active 500 MG PO Every 8 hours as needed for muscle pain October 19, 2023 12:00a m Bumetanide 1 mg Tablet Active 1 MG PO BID@0800,16 00 60 October 26, 2023 12:00a m Pantoprazole 40 mg Tablet,Delay ed Release (Dr/Ec) Active 40 MG PO Twice daily 60 October 26, 2023 12:00a m Hydrocodone- Acetaminophe n 5-325 mg tablet Active 1 TAB PO Every 4 hours as needed for pain 12 2 October 26, 2023 Insulin Aspart U-100 (Novolog Flexpen U-100 Insulin) 100 unit/mL (3 mL) Insulin Pen Active 0 UNIT SUBCUT 3X/Day with meals and bedtime October 26, 2023 12:00a m Please contact the information source for Protocol details. Immunizations Immunization Event Date Not Given Reason Dose Number Screening Technician Lot Number Vaccine Information Statement (VIS) Detail COVID-19 (Moderna), Age 12+ June 11, 2021 COVID-19 (Pfizer) Bivalent Booster, Age 12Y+ March 03, 2022 COVID-19 (Pfizer) May 24, 2020 COVID-19 (Pfizer) June 14, 2020 COVID-19 (Pfizer) February 06, 2021 Tetanus, Diphtheria adult, 5 Lf pres free abs February 05, 2017 Medical Equipment Device Date Implanted Device Details Endocardial pacing lead March 12, 2023 KENDALL: [id number] Issuing Agency: [facility] Device Id: [id number] Expiration Date: 2025-10-26 Serial Number: [id number] Single-chamber implantable pacemaker, rate-responsive March 12, 2023 KENDALL: [id number] Issuing Agency: [facility] Device Id: [id number] Expiration Date: 2024-02-26 Serial Number: [id number] Relevant Diagnostic Tests and/or Laboratory Data Laboratory Results Test Date/Time Result Interpretation Reference Range Result Comment Performing Site Corrected White Blood Count June 08, 2024 10:18am 5.0 10*3/uL 4.1-10.5 [facility] [id number] [address] [facility] [address] Corrected White Blood Count August 08, 2024 10:43am 5.4 10*3/uL 4.1-10.5 [facility] [id number] [address] [facility] [address] Uncorrected WBC Count June 08, 2024 10:18am 5.0 10*3/uL 4.1-10.5 [facility] [id number] [address] [facility] [address] Uncorrected WBC Count August 08, 2024 10:43am 5.4 10*3/uL 4.1-10.5 [facility] [id number] [address] [facility] [address] Red Blood Count June 08, 2024 10:18am 3.29 10*6/uL Below low normal 3.90-5.60 [facility] [id number] [address] [facility] [address] Red Blood Count August 08, 2024 10:43am 3.16 10*6/uL Below low normal 3.90-5.60 [facility] [id number] [address] [facility] [address] Hemoglobin June 08, 2024 10:18am 10.8 g/dL Below low normal 13.0-17.0 [facility] [id number] [address] [facility] [address] Hemoglobin August 08, 2024 10:43am 10.2 g/dL Below low normal 13.0-17.0 [facility] [id number] [address] [facility] [address] Hematocrit June 08, 2024 10:18am 30.8 % Below low normal 38.8-50.0 [facility] [id number] [address] [facility] [address] Hematocrit August 08, 2024 10:43am 29.9 % Below low normal 38.8-50.0 [facility] [id number] [address] [facility] [address] Mean Corpuscular Volume June 08, 2024 10:18am 93.7 fL 83.5-101 [facility] [id number] [address] [facility] [address] Mean Corpuscular Volume August 08, 2024 10:43am 94.7 fL 83.5-101 [facility] [id number] [address] [facility] [address] Mean Corpuscular Hemoglobin June 08, 2024 10:18am 32.8 pg 27.5-35.2 [facility] [id number] [address] [facility] [address] Mean Corpuscular Hemoglobin August 08, 2024 10:43am 32.5 pg 27.5-35.2 [facility] [id number] [address] [facility] [address] Mean Corpuscular Hemoglobin Concent June 08, 2024 10:18am 35.0 g/dL 32.5-35.6 [facility] [id number] [address] [facility] [address] Mean Corpuscular Hemoglobin Concent August 08, 2024 10:43am 34.3 g/dL 32.5-35.6 [facility] [id number] [address] [facility] [address] Red Cell Distribution Width June 08, 2024 10:18am 18.9 % Above high normal 12.0-14.8 [facility] [id number] [address] [facility] [address] Red Cell Distribution Width August 08, 2024 10:43am 17.9 % Above high normal 12.0-14.8 [facility] [id number] [address] [facility] [address] Platelet Count June 08, 2024 10:18am 186 10*3/uL 150-450 [facility] [id number] [address] [facility] [address] Platelet Count August 08, 2024 10:43am 191 10*3/uL 150-450 [facility] [id number] [address] [facility] [address] Mean Platelet Volume June 08, 2024 10:18am 8.4 fL 6.6-10.1 [facility] [id number] [address] [facility] [address] Mean Platelet Volume August 08, 2024 10:43am 8.6 fL 6.6-10.1 [facility] [id number] [address] [facility] [address] Neutrophils (%) (Auto) June 08, 2024 10:18am 72.5 % . [facility] [id number] [address] [facility] [address] Neutrophils (%) (Auto) August 08, 2024 10:43am 67.5 % . [facility] [id number] [address] [facility] [address] Lymphocytes (%) (Auto) June 08, 2024 10:18am 13.9 % . [facility] [id number] [address] [facility] [address] Lymphocytes (%) (Auto) August 08, 2024 10:43am 16.9 % . [facility] [id number] [address] [facility] [address] Monocytes (%) (Auto) June 08, 2024 10:18am 10.7 % . [facility] [id number] [address] [facility] [address] Monocytes (%) (Auto) August 08, 2024 10:43am 12.1 % . [facility] [id number] [address] [facility] [address] Eosinophils (%) (Auto) June 08, 2024 10:18am 2.2 % . [facility] [id number] [address] [facility] [address] Eosinophils (%) (Auto) August 08, 2024 10:43am 2.6 % . [facility] [id number] [address] [facility] [address] Basophils (%) (Auto) June 08, 2024 10:18am 0.7 % . [facility] [id number] [address] [facility] [address] Basophils (%) (Auto) August 08, 2024 10:43am 0.9 % . [facility] [id number] [address] [facility] [address] Nucleated RBC Relative Count (auto) June 08, 2024 10:18am 0.1 /100{WBC } 0-0.5 [facility] [id number] [address] [facility] [address] Nucleated RBC Relative Count (auto) August 08, 2024 10:43am 0.1 /100{WBC } 0-0.5 [facility] [id number] [address] [place], [place] [address] Neutrophils # (Auto) June 08, 2024 10:18am 3.6 10*3/uL 1.8-7.7 [facility] [id number] [address] [place], [place] [address] Neutrophils # (Auto) August 08, 2024 10:43am 3.6 10*3/uL 1.8-7.7 [facility] [id number] [address] [place], [place] [address] Lymphocytes # (Auto) June 08, 2024 10:18am 0.7 10*3/uL Below low normal 1.00-4.8 [facility] [id number] [address] [place], [place] [address] Lymphocytes # (Auto) August 08, 2024 10:43am 0.9 10*3/uL Below low normal 1.00-4.8 [facility] [id number] [address] [place], [place] [address] Monocytes # (Auto) June 08, 2024 10:18am 0.5 10*3/uL 0.0-0.8 [facility] [id number] [address] [place], [place] [address] Monocytes # (Auto) August 08, 2024 10:43am 0.6 10*3/uL 0.0-0.8 [facility] [id number] [address] [place], [place] [address] Eosinophils # (Auto) June 08, 2024 10:18am 0.1 10*3/uL 0.0-0.45 [facility] [id number] [address] [place], [place] [address] Eosinophils # (Auto) August 08, 2024 10:43am 0.1 10*3/uL 0.0-0.45 [facility] [id number] [address] [place], [place] [address] Basophils # (Auto) June 08, 2024 10:18am 0.0 10*3/uL 0.0-0.2 [facility] [id number] [address] [place], [place] [address] Basophils # (Auto) August 08, 2024 10:43am 0.0 10*3/uL 0.0-0.2 [facility] [id number] [address] [id number] Erythrocyte Sedimentation Rate June 08, 2024 10:18am 19 mm/hr 0-19 [facility] [id number] [address] [id number] Erythrocyte Sedimentation Rate August 08, 2024 10:43am 17 mm/hr 0-19 [facility] [id number] [address] [place], [place] [address] Glucose Level June 08, 2024 10:18am 137 mg/dL Above high normal 70-100 ADA recommended reference rangeRandom Glucose Reference Range is dependent on time and content of last meal. Glucose of more than 200 mg/dL in a nonstressed, ambulatory subject supports the diagnosis of Diabetes Mellitus. [facility] [id number] [address] [place], [place] [address] Glucose Level August 08, 2024 10:43am 138 mg/dL Above high normal 70-100 ADA recommended reference rangeRandom Glucose Reference Range is dependent on time and content of last meal. Glucose of more than 200 mg/dL in a nonstressed, ambulatory subject supports the diagnosis of Diabetes Mellitus. [facility] [id number] [address] [place], [place] [address] Blood Urea Nitrogen June 08, 2024 10:18am 28 mg/dL Above high normal 7-25 [facility] [id number] [address] [place], [place] [address] Blood Urea Nitrogen August 08, 2024 10:43am 30 mg/dL Above high normal 7-25 [facility] [id number] [address] [place], [place] [address] Creatinine June 08, 2024 10:18am 1.28 mg/dL 0.70-1.30 [facility] [id number] [address] [place], [place] [address] Creatinine August 08, 2024 10:43am 1.40 mg/dL Above high normal 0.70-1.30 [facility] [id number] [address] [place], [place] [address] Estimated GFR (CKD-EPI) June 08, 2024 10:18am 55.879 mL/Min [facility] [id number] [address] [place] [address] Estimated GFR (CKD-EPI) August 08, 2024 10:43am 50.182 mL/Min [facility] [id number] [address] [facility] [address] Sodium Level June 08, 2024 10:18am 140 mmol/L 136-145 [facility] [id number] [address] [facility] [address] Sodium Level August 08, 2024 10:43am 140 mmol/L 136-145 [facility] [id number] [address] [facility] [address] Potassium Level June 08, 2024 10:18am 3.8 mmol/L 3.5-5.1 [facility] [id number] [address] [facility] [address] Potassium Level August 08, 2024 10:43am 3.7 mmol/L 3.5-5.1 [facility] [id number] [address] [facility] [address] Chloride Level June 08, 2024 10:18am 106 mmol/L 98-107 [facility] [id number] [address] [facility] [address] Chloride Level August 08, 2024 10:43am 107 mmol/L 98-107 [facility] [id number] [address] [facility] [address] Carbon Dioxide Level June 08, 2024 10:18am 24.9 mmol/L 21.0-31.0 [facility] [id number] [address] [facility] [address] Carbon Dioxide Level August 08, 2024 10:43am 23.7 mmol/L 21.0-31.0 [facility] [id number] [address] [facility] [address] Anion Gap June 08, 2024 10:18am 12.9 mEq/L 6.0-15.0 [facility] [id number] [address] [facility] [address] Anion Gap August 08, 2024 10:43am 13.0 mEq/L 6.0-15.0 [facility] [id number] [address] [facility] [address] Calcium Level June 08, 2024 10:18am 9.2 mg/dL 8.6-10.3 [facility] [id number] [address] [facility] [address] Calcium Level August 08, 2024 10:43am 9.3 mg/dL 8.6-10.3 [facility] [id number] [address] [facility] [address] Total Protein June 08, 2024 10:18am 6.6 g/dL 6.4-8.9 [facility] [id number] [address] [facility] [address] Total Protein August 08, 2024 10:43am 6.4 g/dL 6.4-8.9 [facility] [id number] [address] [facility] [address] Albumin June 08, 2024 10:18am 3.9 g/dL 3.5-5.7 [facility] [id number] [address] [facility] [address] Albumin August 08, 2024 10:43am 3.9 g/dL 3.5-5.7 [facility] [id number] [address] [facility] [address] Globulin June 08, 2024 10:18am 2.7 g/dL [facility] [id number] [address] [facility] [address] Globulin August 08, 2024 10:43am 2.5 g/dL [facility] [id number] [address] [facility] [address] Albumin/Globulin Ratio June 08, 2024 10:18am 1.4 [facility] [id number] [address] [facility] [address] Albumin/Globulin Ratio August 08, 2024 10:43am 1.6 [facility] [id number] [address] [place] [address] Total Bilirubin June 08, 2024 10:18am 1.6 mg/dL Above high normal 0.3-1.0 Samples from patients who have taken Naproxen have shown spurious elevation in Total Bilirubin levels. A metabolite of Naproxen, O-desmethyln aproxen, has been shown to interfere with the Femi-Cathi everett method for measuring Total Bilirubin. [facility] [id number] [address] [facility] [address] Total Bilirubin August 08, 2024 10:43am 1.0 mg/dL 0.3-1.0 [facility] [id number] [address] [facility] [address] Aspartate Amino Transf (AST/SGOT) June 08, 2024 10:18am 26 U/L [facility] [id number] [address] [facility] [address] Aspartate Amino Transf (AST/SGOT) August 08, 2024 10:43am 23 U/L [facility] [id number] [address] [facility] [address] Alanine Aminotransferase (ALT/SGPT) June 08, 2024 10:18am 17 U/L [facility] [id number] [address] [facility] [address] Alanine Aminotransferase (ALT/SGPT) August 08, 2024 10:43am 16 U/L [facility] [id number] [address] [facility] [address] Alkaline Phosphatase June 08, 2024 10:18am 54 U/L 34-104 [facility] [id number] [address] [facility] [address] Alkaline Phosphatase August 08, 2024 10:43am 58 U/L 34-104 [facility] [id number] [address] [place] [address] Pharmacy Creatinine Clearance (Chem June 08, 2024 10:18am N/A [facility] [id number] [address] [place] [address] Pharmacy Creatinine Clearance (Chem August 08, 2024 10:43am N/A [facility] [id number] [address] [place] [address] Advance Directives Advance Directive Response Recorded Date/ Time Advance Directives No November 2:59pm Insurance Providers Guarantor Bruno Jay Address [address] [facility] [address] [facility] [address] Contact Info. Home Phone: Payer Policy Id Coverage Id Subscriber's Name Subscriber Id Effective Date Expiration Date Medicare [id number] Bruno Jay [id number] [employer] Claims [id number] Bruno Jay [id number] Encounters Encounter Location(s) Arrival/Admit Date Discharge/Depart Date Provider(s) [facility] [address] June 08, 2024 10:18am June 08, 2024 10:19am Floyd Bolton MD Non-patient / Non-visit [facility] July 07, 2024 11:00am Hortencia Mcdonough [facility]Pacemaker Check July 07, 2024 11:18am July 07, 2024 11:19am Aleida Valle MD [facility] [address] August 08, 2024 10:59am August 08, 2024 11:00am Floyd Bolton MD
--- OUTSIDE RECORDS SUMMARY | 2024-08-14 10:00 | XMS_ITS ---
Author Organization The [facility] in [place] Address [address] [place] [address] Care Team Providers Care Scales Inspector Name Role Phone Al Martinez DO Primary Care Provider Unavail able Kelvin Steiner Unavailable [phone] Allergies No Known Allergies REASON FOR VISIT 1m F/U - SOB, hypoxia Medications Medication SIG (Take, Route, Frequency, Duration) Notes Start Date End Date Status Tamsulosin HCl 0.4 MG TAKE 1 CAPSULE BY MOUTH AT BEDTIME Oral for 90 Days Active ProFe 391.3 (180 Fe) MG TAKE 1 CAPSULE B Y MOUTH WITH dinner Oral for 90 Days Active Rosuvastatin Calcium 5 MG TAKE 1 TABLET BY MOUTH DAILY Oral for 90 Days Active Spironolactone 25 MG Oral for 90 Days Active Methotrexate Sodium 2.5 MG Oral for 84 Days Active Metoprolol Succinate ER 25 MG Oral for 90 Days Active Montelukast Sodium 10 MG TAKE 1 TABLET B Y MOUTH EVERY DAY Oral for 90 Days Activ e Pantoprazole Sodium 40 MG TAKE 1 TABLET BY MOUTH EVERY MORNING Oral for 90 Days Active Trelegy Ellipta 100-62.5-25 MCG/ACT 1 puff Inhalation Once a day for 30 days Rinse after use 08/14/2024 Active Famotidine 40 MG Oral for 90 Days Active Kerendia 20 MG Oral for 30 Days Active Levothyroxine Sodium 50 MCG Oral for 90 Days Active metFORMIN HCl 850 MG TAKE 1 TABLET BY MO PAH ONCE DAILY BEFORE MEALS IN THE EVENING Oral for 90 Days Active Eliquis 5 MG TAKE 1 TABLET BY ROSA TH TWICE DAILY Oral for 90 Days Active Bydureon BCise 2 MG/0.85ML INJECT 2mg HERNANDEZ BCUTANEOUSLY (UNDER THE SKIN) ONCE A WEEK Subcutaneous for 28 Days Active Colesevelam HCl 625 MG take 6 tablets by mouth daily Oral for 90 Days Active Dutasteride 0.5 MG TAKE 1 TABLET EVERY DAY Oral for 90 Days Active Social History Tobacco Use: Social History Observation Description Date Details (start date - stop date) Former Smoker NA - NA Tobacco Control (Standard) Question Answer Notes Tobacco use: Former smoker How long has it been since y ou last smoked? Greater than 10 years Additional Findings: Tobacco non-user Ex -very heavy cigarette smoker (40+/day) Problems Problem Type SNOMED Code ICD Code Onset Dates Problem Status W/U Status Risk Notes Problem Chronic respiratory failure (78194395) Chronic respiratory failure with hypoxia (J96.11) Active confirmed Problem Abnormal CXR (R93.89) Active confirmed Vital Signs Weight 218.8 lbs 08/14/2024 Height 72 in 08/14/2024 Blood pressure systolic 130 mm Hg 08/15/19 25 Blood pressure diastolic 55 mm Hg 025 Temperature 96.8 degrees Fahrenheit 08/15/19 25 Heart Rate 70 /min 08/14/2024 Respiratory Rate 18 /min 08/14/2024 BMI 29.67 kg/m2 08/14/2024 Oximetry 94 % 08/14/2024 Procedures Procedure Date Ordered Date Performed Result Body Sit e Inhaler Teaching/Aerosol-performed 08/14/2024 08/14/2024 N /A Encounters Encounter Location Date Provider Diagnosis Pulmonary Medicine [address] [address] 08/14/2024 Kelvin Steiner Shortness of breath R06.02 ; Chronic respiratory failure with hypoxia J96.11 ; Abnormal CXR R93.89 ; RA (rheumatoid arthritis) M06.9 ; Chronic systolic CHF (congestive heart failure) I50.22 ; CAD (coronary artery disease) I25.10 and DM2 (diabetes mellitus, type 2) E11.9 Assessments Encounter Date Diagnosis (ICD Code) Assessment Notes Treatment Notes Treatment Clinical Notes Section Notes 08/14/2024 Shortness of breath (ICD-10 - R06.02) Spirometry pretty much is consistent with mild obstruction (FEV1/FVC @ 70% is right at the cusp for official diagnosis of obstructive lung disease; FEV1 92%), but DLCO is drastically decreased out of proportion @ 29%. He did not meet ATS standards for DLCO testing, but even accounting for this, it is a signifcant decrease. From a spirometry standpoint, with the obstruction, suggested a trial of a maintenance inhaler. I have samples of Trelegy 100. Discussed it would be 1 puff QD. Inhaler demonstration was performed with the patient. Appropriate technique was demonstrated. Proper timing for administration was reviewed. Counseled on rinsing after use. Inhaler samples provided. Will see him back in 1 month to review his response to Trelegy, HRCT results, and how he is doing with O2. 08/14/2024 Chronic respiratory failure with hypoxia (ICD-10 - J96.11) Rbfk-ce-zwtm encounter performed with the patient to document need to prescribe supplemental oxygen (O2). -Qualifying study: 6MW 08/03/2024 - --Resting on RA: SpO2 92% --Ambulating on RA: SpO2 87% --Ambulating on O2 3L/min: SpO2 83% -Flow & directions: Recommending 4L/min O2 with ambulation/activit y at a minimum -Counseled patient not begin, restart, or continue smoking, around the O2 due to risk of fire which could result in damage to the O2 tanks & lines, smoke inhalation and flame damage to the airway, significant vaughn, potential , property damage, and potential harm & to bystanders. Additionally, counseled it is not johnson to begin, restart, or continue smoking given the underlying pulmonary disease that led to the point of requiring O2. -Recommendations: 6MW 08/03/2024 confirmed need for patient to have supplemental O2. At end of 6 minutes, SpO2 was 83% despite 3L/min, so I am prescribing 4L/min with ambulation/activit y - it is possible he may require more. ABG today on RA was also low, with SaO2 87% and pO2 50.3. He states he wants POC and was going to buy an Inogen. I steered patient away from this - a POC may be insufficient for him. Patient requested [facility] as his DME. They can assess him for portability, but it is possible he may require tanks. Unclear why DLCO is 29% - way out of proportion to other testing. Ordering HRCT to evaluate for any ILD. 08/14/2024 Abnormal CXR (ICD-10 - R93.89) CXR 08/01/2024 noted CHF findings - though he has a history of systolic CHF, he has appeared euvolemic. He has RA and is on MTX, so there is concern he may be developing connective tissue-ILD. Ordering HRCT for better evaluation of the lung architecture. 08/14/2024 RA (rheumatoid arthritis) (ICD-10 - M06.9) Follows with Dr. Bolton, on methotrexate and Remicade. With very low DLCO and abnormal CXR, ordering HRCT to evaluate for ILD. 08/14/2024 Chronic systolic CHF (congestive heart failure) (ICD-10 - I50.22) Euvolemic on examination today. 08/14/2024 CAD (coronary artery disease) (ICD-10 - I25.10) F/U with cardiology. 08/14/2024 DM2 (diabetes mellitus, type 2) (ICD-10 - E11.9) Steroids prescribed for this patient's underlying pulmonary disease can adversely affect blood glucose levels, inducing hyperglycemia and worsening underlying diabetes. The patient is encouraged to follow up with the primary care provider to create a plan to manage diabetes in this situation. 08/14/2024 Other Plan Of Treatment Medication Medication Name Sig Start Date Stop Date Notes Trelegy Ellipta 100-62.5-25 MCG/ACT 1 puff Inhalation Once a day for 30 days 08/14/2024 Treatment Notes Assessment Notes Shortness of breath Spirometry pretty much is consistent with mild obstruction (FEV1/FVC @ 70% is right at the cusp for official diagnosis of obstructive lung disease; FEV1 92%), but DLCO is drastically decreased out of proportion @ 29%. He did not meet ATS standards for DLCO testing, but even accounting for this, it is a signifcant decrease. From a spirometry standpoint, with the obstruction, suggested a trial of a maintenance inhaler. I have samples of Trelegy 100. Discussed it would be 1 puff QD. Inhaler demonstration was performed with the patient. Appropriate technique was demonstrated. Proper timing for administration was reviewed. Counseled on rinsing after use. Inhaler samples provided. Will see him back in 1 month to review his response to Trelegy, HRCT results, and how he is doing with O2. Chronic respiratory failure with hypoxia Fbib-zk-anqd encounter performed with the patient to document need to prescribe supplemental oxygen (O2). -Qualifying study: 6MW 08/03/2024 - --Resting on RA: SpO2 92% --Ambulating on RA: SpO2 87% --Ambulating on O2 3L/min: SpO2 83% -Flow & directions: Recommending 4L/min O2 with ambulation/activity at a minimum -Counseled patient not begin, restart, or continue smoking, around the O2 due to risk of fire which could result in damage to the O2 tanks & lines, smoke inhalation and flame damage to the airway, significant vaughn, potential , property damage, and potential harm & to bystanders. Additionally, counseled it is not johnson to begin, restart, or continue smoking given the underlying pulmonary disease that led to the point of requiring O2. -Recommendations: 6MW 08/03/2024 confirmed need for patient to have supplemental O2. At end of 6 minutes, SpO2 was 83% despite 3L/min, so I am prescribing 4L/min with ambulation/activity - it is possible he may require more. ABG today on RA was also low, with SaO2 87% and pO2 50.3. He states he wants POC and was going to buy an Inogen. I steered patient away from this - a POC may be insufficient for him. Patient requested [facility] as his DME. They can assess him for portability, but it is possible he may require tanks. Unclear why DLCO is 29% - way out of proportion to other testing. Ordering HRCT to evaluate for any ILD. Abnormal CXR CXR 08/01/2024 noted CHF findings - though he has a history of systolic CHF, he has appeared euvolemic. He has RA and is on MTX, so there is concern he may be developing connective tissue-ILD. Ordering HRCT for better evaluation of the lung architecture. RA (rheumatoid arthritis) Follows with Dr. Bolton, on methotrexate and Remicade. With very low DLCO and abnormal CXR, ordering HRCT to evaluate for ILD. Chronic systolic CHF (conges tive heart failure) Euvolemic on examination today. CAD (coronary artery disease) F/U with cardiology. DM2 (diabetes mellitus, type 2) Steroids prescribed for this patient's underlying pulmonary disease can adversely affect blood glucose levels, inducing hyperglycemia and worsening underlying diabetes. The patient is encouraged to follow up with the primary care provider to create a plan to manage diabetes in this situation. Future Test Test Name Order Date CT Chest High Resolution 08/14/2024 Next Appt Details Follow Up: 4w F/U, Reason: O 2, dyspnea, HRCT Provider Name:Kelvin Kahlil, 09/11/2024 02:30:00 PM, [address] [facility], [place], [address], Progress Notes * Bruno JAY FDOB:1940 (83 yo M)Acc No.[id number]:08/14/2024 Follow Up Patient: Bruno PALACIOS Provider: Marc Steiner DO :1940 A ge:83 Y S ex:Male Date:08/14/2024 Address:[address] [facility], [address] Pcp:Al Martinez, DO Check In:01:42 PM ESTCheck O ut:02:28 PM EST Subjective: * Chief Complaints: * 1 m F/U - SOB, hypoxia * HPI: G eneral: Breathing is doing about the same as last visit - no better, no worse. Several tests were done and were reviewed today with the patient. -PFT 08/03/2024: Mild obstruction in spirometry and low normal lung volumes, but a very low DLCO @ 29% out of proportion to the remainder of the PFT. -CXR 08/01/2024: CHF findings -6MW 08/03/2024: Resting SpO2 93%, but desaturated on RA to 87% with ambulation. At end of study (6 minutes), SpO2 83% on 3L/min O2. Recommendations are for 4L/min O2 with activity -ABG 08/14/2024: pH 7.46, pCO2 31.7, pO2 50.3, SaO2 87%, FiO2 21% MA Intake Comments:. Patient presents for a follow-up after recent testing. Patient complains of SOB with exertion and cough. Patient is currently enrolled in cardiac rehab at [facility]. Patient is under the care of [facility] & . * ROS: G eneral/Constitutional: Fever or sweats d enies. C hange of appetite d enies. C hills d enies. W eight Change d enies. H EENT: Dry mouth d enies. S ore throat d enies. N osebleed a dmits. O ral Ulcers d enies. P ost Nasal Drip A dmits. C ongestion A dmits. H oarseness D enies. C ardiovascular: Tachycardia d enies. E shellie D enies. C hest pain d enies. P alpitations d enies. R espiratory: Chest tightness d enies. P leurisy D enies. D yspnea w ith exertion. C ough p roductive, clear. H emoptysis d enies. W heezing d enies. G astrointestinal: Acid Reflux/GERD/Heartburn s ometimes. D ysphagia d enies. M usculoskeletal: Arthralgias/joint pain A dmits. S kin: Easy bruising d enies. R mario alberto d enies. ? N eurologic: Seizures d enies. T remor d enies. H ematology: Abnormal Bleeding d enies. P sychiatric: Anxiety d enies. 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 S ister(s): breast cancer. D jaya(s): rheumatoid arthritis. F ather: diagnosed with Diabetes mellitus without mention of complication, type II or unspecified type, not stated as uncontrolled. * Social History: T obacco Use: T obacco Control (Standard) T obacco use: F ormer smoker H ow long has it been since you last smoked??Greater than 10 years A dditional Findings: Tobacco non-user E x-very heavy cigarette smoker (40+/day) Electronic Cigarette use C urrent user N o LM: Additional Tobacco Questions N umber of Years Pt Smoked: 1 5 N umber of Packs per Day: 2 When did you stop smokin. M iscellaneous: O ccupation O ccupation: R [employer] Pets: cat. D rugs/Alcohol: D rugs H ave you used drugs other than those for medical reasons in the past 12 months? N o D oes the Patient have a History of Drug Abuse in the Past? N o Caffeine I ntake: 1 -2 cups per day Coffee Do you drink alcohol?: No. Do you smoke marijuana?: Denies. * Medications: T akingBydureon BCise 2 MG/0.85ML Auto-injector INJECT 2mg SUBCUTANEOUSLY (UNDER THE SKIN) ONCE A WEEK Subcutaneous Colesevelam HCl 625 MG Tablet take 6 tablets by mouth daily Oral Dutasteride 0.5 MG Capsule TAKE 1 TABLET EVERY DAY Oral Eliquis(Apixaban) 5 MG Tablet TAKE 1 TABLET BY MOUTH TWICE DAILY Oral Famotidine 40 MG Tablet Oral Kerendia(Finerenone) 20 MG Tablet Oral Levothyroxine Sodium 50 MCG Tablet Oral metFORMIN HCl 850 MG Tablet TAKE 1 TABLET BY MOUTH ONCE DAILY BEFORE MEALS IN THE EVENING Oral Methotrexate Sodium 2.5 MG Tablet Oral Metoprolol Succinate ER 25 MG Tablet Extended Release 24 Hour Oral Montelukast Sodium 10 MG Tablet TAKE 1 TABLET BY MOUTH EVERY DAY Oral Pantoprazole Sodium 40 MG Tablet Delayed Release TAKE 1 TABLET BY MOUTH EVERY MORNING Oral ProFe(Polysaccharide Iron Complex) 391.3 (180 Fe) MG Capsule TAKE 1 CAPSULE BY MOUTH WITH dinner Oral Rosuvastatin Calcium 5 MG Tablet TAKE 1 TABLET BY MOUTH DAILY Oral Spironolactone 25 MG Tablet Oral Tamsulosin HCl 0.4 MG Capsule TAKE 1 CAPSULE BY MOUTH AT BEDTIME Oral Taking Bydureon BCise 2 MG/0.85ML Auto-injector INJECT 2mg SUBCUTANEOUSLY (UNDER THE SKIN) ONCE A WEEK Subcutaneous Taking Colesevelam HCl 625 MG Tablet take 6 tablets by mouth daily Oral Taking Dutasteride 0.5 MG Capsule TAKE 1 TABLET EVERY DAY Oral Taking Eliquis(Apixaban) 5 MG Tablet TAKE 1 TABLET BY MOUTH TWICE DAILY Oral Taking Famotidine 40 MG Tablet Oral Taking Kerendia(Finerenone) 20 MG Tablet Oral Taking Levothyroxine Sodium 50 MCG Tablet Oral Taking metFORMIN HCl 850 MG Tablet TAKE 1 TABLET BY MOUTH ONCE DAILY BEFORE MEALS IN THE EVENING Oral Taking Methotrexate Sodium 2.5 MG Tablet Oral Taking Metoprolol Succinate ER 25 MG Tablet Extended Release 24 Hour Oral Taking Montelukast Sodium 10 MG Tablet TAKE 1 TABLET BY MOUTH EVERY DAY Oral Taking Pantoprazole Sodium 40 MG Tablet Delayed Release TAKE 1 TABLET BY MOUTH EVERY MORNING Oral Taking ProFe(Polysaccharide Iron Complex) 391.3 (180 Fe) MG Capsule TAKE 1 CAPSULE BY MOUTH WITH dinner Oral Taking Rosuvastatin Calcium 5 MG Tablet TAKE 1 TABLET BY MOUTH DAILY Oral Taking Spironolactone 25 MG Tablet Oral Taking Tamsulosin HCl 0.4 MG Capsule TAKE 1 CAPSULE BY MOUTH AT BEDTIME Oral DiscontinuedBumetanide 1 MG Tablet Oral Medication List reviewed and reconciled with the patientDiscontinued Bumetanide 1 MG Tablet Oral Medication List reviewed and reconciled with the patient * Allergies: N .K.D.A.no[Allergies Verified] Objective: * Vitals: W t:218.8lbs, Ht: 72 in, BP:sittin/55mm Hg, Temp:Forehead:96.8F, HR:70/min, RR:18/min, BMI:29.67Index, Oxygen sat %:Room Air:94%, Ht-cm: 182.88 cm, Wt-k.25 kg. * Examination: E xam: GENERAL APPEARANCE: A ppears stated age. Skin N ormal. Mouth P ink and moist. Dentures. Oropharynx M allampati Class III. Trachea M idline. Chest N ormal. Respiratory Normal M ovements, E ffort N ormal. Auscultation B reath sounds remain diminished. Clear today, no wheezes, coarse breath sounds, crackles, or rhonchi. Percussion M ild dullness in extreme bases. Egophony N o egophony. Fremitus N ormal fremitus. Cardiac I rregularly irregular. Gastrointestinal N ormal. Vascular N o edema. Musculoskeletal N ormal posture. Neurological F ocal, intact. Psychiatric A lert and oriented x3. Mentation/Cognition N ormal. Assessment: * Assessment: 1. S hortness of breath - R06.02 (Primary) 2 . C hronic respiratory failure with hypoxia - J96.11 3 . A bnormal CXR - R93.89 4 . R A (rheumatoid arthritis) - M06.9 5 . C hronic systolic CHF (congestive heart failure) - I50.22 6 . C AD (coronary artery disease) - I25.10 7 . D M2 (diabetes mellitus, type 2) - E11.9 Plan: * Treatment: 2. C hronic respiratory failure with hypoxia Notes: Wdlh-at-oibq encounter performed with the patient to document need to prescribe supplemental oxygen (O2). -Qualifying study: 6MW 08/03/2024 - --Resting on RA: SpO2 92% --Ambulating on RA: SpO2 87% --Ambulating on O2 3L/min: SpO2 83% -Flow & directions: Recommending 4L/min O2 with ambulation/activity at a minimum -Counseled patient not begin, restart, or continue smoking, around the O2 due to risk of fire which could result in damage to the O2 tanks & lines, smoke inhalation and flame damage to the airway, significant vaughn, potential , property damage, and potential harm & to bystanders. Additionally, counseled it is not johnson to begin, restart, or continue smoking given the underlying pulmonary disease that led to the point of requiring O2. -Recommendations: 6MW 08/03/2024 confirmed need for patient to have supplemental O2. At end of 6 minutes, SpO2 was 83% despite 3L/min, so I am prescribing 4L/min with ambulation/activity - it is possible he may require more. ABG today on RA was also low, with SaO2 87% and pO2 50.3. He states he wants POC and was going to buy an Inogen. I steered patient away from this - a POC may be insufficient for him. Patient requested [facility] as his DME. They can assess him for portability, but it is possible he may require tanks. Unclear why DLCO is 29% - way out of proportion to other testing. Ordering HRCT to evaluate for any ILD. 3. A bnormal CXR I maging: CT Chest High Resolution (Ordered for 08/14/2024) Notes: CXR 08/01/2024 noted CHF findings - though he has a history of systolic CHF, he has appeared euvolemic. He has RA and is on MTX, so there is concern he may be developing connective tissue-ILD. Ordering HRCT for better evaluation of the lung architecture. 4. R A (rheumatoid arthritis) I maging: CT Chest High Resolution (Ordered for 08/14/2024) Notes: Follows with Dr. Bolton, on methotrexate and Remicade. With very low DLCO and abnormal CXR, ordering HRCT to evaluate for ILD. 5. C hronic systolic CHF (congestive heart failure) Notes: Euvolemic on examination today. 6. C AD (coronary artery disease) Notes: F/U with cardiology. 7. D M2 (diabetes mellitus, type 2) Notes: Steroids prescribed for this patient's underlying pulmonary disease can adversely affect blood glucose levels, inducing hyperglycemia and worsening underlying diabetes. The patient is encouraged to follow up with the primary care provider to create a plan to manage diabetes in this situation. ? * Procedure Codes: 9 4664 AEROSOLVAPOR INHAL * Preventive Medicine: COVID Vaccination: H as patient had COVID Vaccination? COVID Vaccination Y es 03/25/2023 Immunization Status: P neumovacc L ess than 7 yrs ago-UTD per patient. I nfluenza U TD per patient. B oostrix 1 04/07/2016. Screenings/Counseling: F ALL RISK SCREENING Fall Risk Assessment: N o falls in the past year Are you afraid of falling? N o T OBACCO ACTION PLAN Patient counselled on the dangers of tobacco use and urged to quit. 0 08/14/2024 Former Education on smoking effects provided?08/14/2024 Former B ND ACTION PLAN Above Normal BMI Follow-up D ietary management education, guidance, and counseling * Follow Up: 4 w F/U (Reason: O2, dyspnea, HRCT) * * Sign off status: Completed Visit Status: C HK (Check Out) Addendum: * true * Provider: Marc Steiner DO Date: 0 08/14/2024 Generated for Bennett cabral/Autumn/Lexiitting on: 0 08/17/2024 12:44 PM EDT History and Physical Notes * HPI (History of Present Illness) Category Sub-Category Detail Notes Category Not es General Patient present s for a follow-up after recent testing. Patient complains of SOB with exertion and cough. Patient is currently enrolled in cardiac rehab at [facility]. Patient is under the care of NO & . Examination Category Sub-Category Detail Notes Category Not es Exam GENERAL APPEARANCE: Appears stated age Skin Normal Mouth [place] and moist. [place] ures Trachea Midline Chest Normal Respiratory Normal Movements, Ef fort Normal Auscultation Breath sounds remain diminished. Clear today, no wheezes, coarse breath sounds, crackles, or rhonchi Percussion Mild dullness in ext augie bases Egophony No egophony Bronchophony Fremitus Normal fremitus Cardiac Irregularly irregula r Gastrointestinal Normal Vascular No edema Musculoskeletal Normal posture Neurological Focal, intact Psychiatric Alert and oriented x 3 Mentation/Cognition Normal Oropharynx Mallampati Class III
--- OUTSIDE RECORDS SUMMARY | 2024-08-15 07:28 | XMS_ITS ---
Author Organization The [facility] in [place] Address [address] [place] [address] Care Team Providers Care Safety Professional Name Role Phone Al Martinez DO Primary Care Provider Ranjeet Kelvin Delong Unavailable [phone] REASON FOR VISIT 6MW Results Encounters Encounter Location Date Provider Diagnosis Pulmonary Medicine [place] [address] [place] [address] 08/15/2024 Kelvin Steiner Plan Of Treatment Next Appt Details Provider Name:Kelvin Steiner, 09/11/2024 02:30:00 PM, [address] [place], [address], Progress Notes * Bruno JAY FDOB:1940 (83 yo M)Acc No.[id number]:08/15/2024 Patient: Bruon PALACIOS :1940 A ge:83 Y S ex:Male Address:[facility] [address], [place], [address] * true * Date: Generated for Printi ng/Faxing/eTransmitting on: 0 08/17/2024 12:44 PM EDT
--- OUTSIDE RECORDS SUMMARY | 2024-08-15 12:49 | XMS_ITS ---
Author Organization [facility] in [place] Address [address] [place] [address] Care Team Providers Care Cat Tender Name Role Phone Al Martinez DO Primary Care Provider Ranjeet Kelvin Delong Unavailable [phone] REASON FOR VISIT Pulm Rehab Order Encounters Encounter Location Date Provider Diagnosis Pulmonary Medicine [place] [address] [place] [address] 08/15/2024 Kelvin Steiner Plan Of Treatment Next Appt Details Provider Name:Kelvin Steiner, 09/11/2024 02:30:00 PM, [address] [place], [address], Progress Notes * Bruno JAY FDOB:1940 (83 yo M)Acc No.[id number]:08/15/2024 Patient: Bruno PALACIOS :1940 A ge:83 Y S ex:Male Address:[facility] [facility], [address] [address], [place], [address] * true * Date: Generated for Printi ng/Faxing/eTransmitting on: 0 08/17/2024 12:44 PM EDT
--- OUTSIDE RECORDS SUMMARY | 2024-08-17 12:44 | XMS_ITS | Clinical Summary ---
Author Organization [facility] Address [address] [place] [address] Phone Care Team Providers Care Real Estate Loan Officer Name Role Phone RosalbaAl reilly Primary Care Provider [phone] Allergies No known active allergies Medications Bydureon BCise 2 mg/0.85 mL auto-injector Inject 2 mg under the skin 1 (one) time per week in the customer business manager.. 3 Active oxyCODONE-acetami nophen (Percocet) 5-325 mg tablet Take 1 tablet by mouth every 4 hours if needed for severe pain (7 - 10). Active bumetanide (Bumex) 1 mg tabletIndications :Severe aortic stenosis Take 1 tablet (1 mg) by mouth once daily. 90 tablet 2 4 Active colesevelam (Welchol) 625 mg tabletIndications :Severe aortic stenosis Take 2 tablets (1,250 mg) by mouth 2 times a day as needed (diarrhea). Take with meal(s) and a liquid. 30 tablet 4 Active Eliquis 5 mg tabletIndications :Severe aortic stenosis Take 1 tablet (5 mg) by mouth 2 times a day. 90 tablet 2 4 Active metFORMIN (Glucophage) 850 mg tabletIndications :Severe aortic stenosis Take 1 tablet (850 mg) by mouth once daily at bedtime. take with evening meal 90 tablet 2 4 Active vericiguat (Verquvo) 10 mg tabletIndications :Severe aortic stenosis Take 10 mg by mouth once daily. 90 tablet 2 4 Active cholecalciferol (Vitamin D-3) 5,000 Units tabletIndications :Severe aortic stenosis Take 1 tablet (5,000 Units) by mouth early in the morning.. 90 tablet 3 4 Active folic acid (Folvite) 800 mcg tabletIndications :Severe aortic stenosis Take 1 tablet (800 mcg) by mouth once daily. 90 tablet 2 4 Active levothyroxine (Synthroid, Levoxyl) 50 mcg tabletIndications :Severe aortic stenosis Take 1 tablet (50 mcg) by mouth once daily. 1 tab and Wednesday take 2 tabs 30 tablet 4 Active montelukast (Singulair) 10 mg tabletIndications :Severe aortic stenosis Take 1 tablet (10 mg) by mouth 4 times a week. [facility] 30 tablet 1 4 Active pantoprazole (ProtoNix) 40 mg EC tabletIndications :Severe aortic stenosis Take 1 tablet (40 mg) by mouth 2 times a day. Do not crush, chew, or split. 30 tablet 1 4 Active rosuvastatin (Crestor) 10 mg tabletIndications :Severe aortic stenosis Take 1 tablet (10 mg) by mouth 4 times a week. MWFSu 16 tablet 1 4 Active dutasteride (Avodart) 0.5 mg capsule Take 1 capsule (0.5 mg) by mouth once daily. Active Kerendia 20 mg tablet Take 1 tablet (20 mg) by mouth early in the morning.. 4 Active methotrexate (Trexall) 2.5 mg tablet Take 6 tablets (15 mg total) by mouth 1 (one) time per week. 4 Active metoprolol succinate XL (Toprol-XL) 25 mg 24 hr tabletIndications :Single vessel coronary artery disease,Chronic systolic heart failure,Primary hypertension Take 1 tablet (25 mg) by mouth once daily. Do not crush or chew. 90 tablet 3 4 01/25/20 Active Active Problems Problem Noted Date Diagnosed Date ACEI/ARB contraindicated 07/12/2024 Former smoker 01/25/2024 Other specified anemias 11/04/2023 Severe aortic stenosis 11/01/2023 Nonrheumatic aortic valve stenosis 10/13/2023 History of transcatheter aortic valve replacemen t (TAVR) 10/13/2023 Single vessel coronary artery disease 10/13/2023 BMI 28.0-28.9,adult 06/23/2023 Pulmonary hypertension (Multi) 06/23/2023 Adenocarcinoma of colon 02/23/2023 Persistent atrial fibrillation (Multi) Benign neoplasm of transverse colon 02/23/2023 Benign neoplasm of descending colon 02/23/2023 Diabetes mellitus (Multi) 02/23/2023 HTN (hypertension) 02/23/2023 Hypercholesteremia 02/23/2023 Hypothyroidism 02/23/2023 Immunosuppression 02/23/2023 Kidney disease 02/23/2023 Personal history of colon cancer, stage II 02/23 Positive colorectal cancer screening using Colog uard test 02/23/2023 Rheumatoid arthritis 02/23/2023 Sleep apnea 02/23/2023 Vitamin D deficiency 02/23/2023 care home current use of 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 therapy 1 04/25/2022 Bradycardia 02/23/2023 Chronic systolic heart failure 02/23/2023 Shortness of breath 02/23/2023 Abnormal ECG 01/21/2017 Resolved Problems Problem Noted Date Diagnosed Date Resolved Date Aortic stenosis 11/05/2023 01/25/2024 Aortic stenosis, severe 10/29/202312/28 Dilated cardiomyopathy (Multi) 10/13/2023 01/25/2024 Heart disease, hypertensive 02/23/2023 06/23/2023 HFrEF (heart failure with re duced ejection fraction) 02/23/2023 01/25/2024 Encounters Date Type Department Care Team Description 08/14/2024 Scanned Document [facility] [id number] [place] [address] Scanning, Generic Provider 07/12/2024 3:30 PM EDT Office Visit [facility] [address] [address] Aleida Valle MD Chronic systolic heart failure (Primary Dx); Single vessel coronary artery disease; Severe aortic stenosis; Pulmonary hypertension (Multi); Persistent atrial fibrillation (Multi); Nonrheumatic aortic valve stenosis; Hypercholesteremia; Primary hypertension; History of transcatheter aortic valve replacement (TAVR); Bradycardia; Abnormal ECG; care home current use of 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 therapy; Shortness of breath; Former smoker; BMI 28.0-28.9,adult 07/12/2024 Travel 07/07/2024 Orders Only [facility] [id number] [place] [address] Scanning, Generic Provider 06/08/2024 Scanned Document [facility] [id number] [place] [address] Scanning, Generic Provider from Last 3 Months Immunizations Immunization Administration Dates Next Due DTP 10/25/2020 Novel [id number], preservative-free 03/25 Pfizer COVID-19 vaccine, biv alent, age 12 years and older (30 mcg/0.3 mL) 03/03/2022 Tdap vaccine, age 7 year and older (BOOSTRIX, AD ACEL) 02/05/2017 Family History Medical History Relation Name Comments Heart failure Brother Diabetes type I Father Cancer Mother Cancer Sister Relation Name Status Comments Brother Father Mother Sister Social History Tobacco Use Types Packs/Day Years Used Date Smoking Tobacco: Former Cigarettes Smokeless Tobacco: Never Alcohol Use Standard Drinks/Week Comments Not Currently 0 (1 standard drink = 0.6 oz pur e alcohol) AUDIT-C Answer Date Recorded Q1: How often do you have a drink containing alcohol? Never 11/01/2023 Q2: How many drinks containi ng alcohol do you have on a typical day when you are drinking? Patient does not drink Q3: How often do you have si x or more drinks on one occasion? Never 11/01/2023 Overall Financial Resource Strain (CARDIA) Answe r Date Recorded How hard is it for you to pa y for the very basics like food, housing, medical care, and heating? Not hard at all 11/01/2023 PHQ-2 Answer Date Recorded Patient Health Questionnaire-2 Score 0 11/01/2023 PRAPARE - Transportation Answer Date Re corded In the past 12 months, has l ack of transportation kept you from medical appointments or from getting medications? No 07/2023 In the past 12 months, has l ack of transportation kept you from meetings, work, or from getting things needed for daily living? No 11/01/2023 Housing Stability Vital Sign Answer Aman e Recorded In the last 12 months, was t here a time when you were not able to pay the mortgage or rent on time? No 11/01/2023 In the past 12 months, how m any times have you moved where you were living? 1 11/01/2023 At any time in the past 12 m [facility], were you homeless or living in a jail (including now)? No 11/01/2023 Sex and Gender Information Value Date Recorded Sex Assigned at Not on file Legal Sex Male 3:25 PM EST Gender Identity Not on file Sexual Orientation Not on file Last Filed Vital Signs Vital Sign Reading Time Taken Comments Blood Pressure 130/52 07/12/2024 3:47 PM EDT Pulse 69 07/12/2024 3:47 PM EDT Temperature 36.5 C (97.7 F) 11/13/2023 1:05 PM EDT Respiratory Rate 17 11/13/2023 1:05 PM EDT Oxygen Saturation 95% 11/13/2023 1:05 PM EDT Inhaled Oxygen Concentration - - Weight 96.7 kg (213 lb 3.2 oz) 07/12/2024 3:47 P M EDT Height 182.9 cm (6') 07/12/2024 3:47 PM EDT Body Mass Index 28.92 07/12/2024 3:47 PM EDT Plan of Treatment Upcoming Encounters Date Type Department Care Team (Late st Contact Info) Description 11/10/2024 9:00 AM EDT Telemedicine Clinical Support [facility] [address] [place] [address] 04/12/2025 1:40 PM EST Office Visit [facility] [address] [facility] [address] [place] [address] Aleida Valle MD [address] [place] [address] Health Maintenance Due Date Last Done Comments Diabetes: Urine Protein Screening 1940 Lipid Panel 1940 Medicare Annual Wellness Visit (AWV) 1940 Diabetes: Retinopathy Screening 10[birth year]08/1950 Pneumococcal Vaccine (1 of 2 - PCV) 1960 Zoster Vaccines (1 of 2) 1959 RSV High Risk: (Elderly (60+) or Population) (1 - 1-dose 75+ series) 2016 COVID-19 Vaccine ( season) 2023 03/25/2023, 03/03/2022, 06/11/2021, Additional history exists Diabetes: Hemoglobin A1C 02/01/2024 11/01/2023 TSH Level 10/31/2024 11/01/2023 Creatinine Level 11/12/2024 11/13/2023, , 11/11/2023, Additional history exists Potassium Level 11/12/2024 11/13/2023, 10/27, 11/11/2023, Additional history exists Influenza Vaccine (Season Ended) 2024 03/25/2009 Echocardiogram 01/11/2025 01/12/2024, 10/27, 11/12/2023, Additional history exists DTaP/Tdap/Td Vaccines (3 - Td or Tdap) 10/25/2030 10/25/2020, 02/05/2017 HIB Vaccines Aged Out No longer eligi ble based on patient's age to complete this topic HPV Vaccines Aged Out No longer eligi ble based on patient's age to complete this topic Hepatitis A Vaccines Aged Out No long er eligible based on patient's age to complete this topic Hepatitis B Vaccines Aged Out No long er eligible based on patient's age to complete this topic IPV Vaccines Aged Out No longer eligi ble based on patient's age to complete this topic Meningococcal Vaccine Aged Out No claude daphney eligible based on patient's age to complete this topic Rotavirus Vaccines Aged Out No longer eligible based on patient's age to complete this topic Medical Devices Implanted Type Area Alcoholism Worker Device Identifier Shelf Expiration Date Model / Serial / Lot Base Plate Base Plate Bilatera l: Knee Cardiac Pacemaker Cardiac Pacemaker Chest Valve, Aortic, 34mm, Evolut Fx Transcatheter - [id number] - [id number] Implanted:Qty: 1 on 11/12/2023 by Milton Camejo MD at [facility] Heart Valve Repair N/A: Heart [employer] 08/19/2025 [id number]- [id number] / [id number] / [id number] Procedures Procedure Name Priority Date/Time Associated Diagnosis Comments ECG 12-LEAD Routine 07/12/2024 3:38 PM EDT Persistent atrial fibrillation (Multi) OUTSIDE DEVICE CHECK - ONBASE SCAN 07/07/2024 TRANSTHORACIC ECHO (TTE) COMPLETE Routine 01/12/2024 10:49 AM EDT Aortic stenosis, severe S/P TAVR (transcatheter aortic valve replacement) COMPREHENSIVE METABOLIC PANEL Routine 11/13/2023 10:35 AM EDT HEMOGLOBIN A1C Routine 11/01/2023 6:18 PM EDT TSH WITH REFLEX TO FREE T4 IF ABNORMAL Routine 11/01/2023 6:18 PM EDT from Last 3 Months or Most Recently Relevant to Health Maintenance Results * ECG 12 Lead (07/12/2024 3:38 PM EDT) Narrative CPACS - 07/12/2024 4:21 PM EDT Atrial fibrillation with controlled rate probable old inferior [place] us Aleida Valle MD ECG ORDERABLES Final Resu lt [facility] * Outside Device Check - Onbase Scan (07/07/2024) Narrative 07/07/2024 Ordered by an unspecified provider. us Generic Provider Scanning CV CARDIAC SERVICES MT OCEDURES Final Result * TRANSTHORACIC ECHO (TTE) COMPLETE (01/12/2024 10:49 AM EDT) AV mn grad 10.0 mmHg SYNGO AV pk jose 2.09 m/s SYNGO LV Biplane EF 49 % SYNGO LVOT diam 2.00 cm SYNGO MV avg E/e' ratio 18.20 SYNGO LV EF 53 % SYNGO RVSP 39.7 mmHg SYNGO LVIDd 4.71 cm SYNGO Aortic Valve Area by Continuity of Peak Velocity 1.13 cm2 SYNGO AV pk grad 17.5 mmHg SYNGO Aortic Valve Area by Continuity of VTI 1.13 cm2 SYNGO LV A4C EF 47.0 SYNGO 01/12/2024 10:0 5 AM EDT Narrative SYNGO - 01/17/2024 3:44 PM EDT [address], [address], [place] [address] TRANSTHORACIC ECHOCARDIOGRAM REPORT Patient Name: SHAHID JAY Chastity Physician: [id number] Aleida Valle MD Study Date: 01/12/2024 Ordering Provider: [id number] MOLINA MRN/PID: [id number] Fellow: Nurse: Date of /Age: 7 1940 / 83 years Innersole Maker: Wen Ron RDCS, RDMS, RVT Gender: M Additional Staff: Height: 180.34 cm Admit Date: Weight: 90.27 kg Admission Status: Outpatient BSA / BMI: 2.10 m2 / 27.76 Department Location: [facility] kg/m2 [place] Blood Pressure: 134 /62 mmHg Study Type: TRANSTHORACIC ECHO (TTE) COMPLETE Diagnosis/ICD: 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 Evolut FX #34, HX , AFib, CAD, CHF, HTN, DM, Pacemaker, Dilated CM, CPT Codes: Echo Complete w Full [id number] Study Detail: The following Echo studies were performed: 2D, M-Mode, Doppler and color flow. PHYSICIAN INTERPRETATION: Left Ventricle: The left ventricular systolic function is low normal, with a visually estimated ejection fraction of 50-55%. The left ventricle was not well visualized. The left ventricular ejection fraction could not be measured. The left ventricular cavity size is normal. Spectral Doppler shows a normal pattern of left ventricular diastolic filling. Mild LVH. Left Atrium: The left atrium is moderately dilated. Right Ventricle: The right ventricle is normal in size. There is mildly reduced right ventricular systolic function. Right Atrium: The right atrium is moderately dilated. Aortic Valve: The aortic valve appears structurally normal. The aortic valve dimensionless index is 0.36. There is no evidence of aortic valve regurgitation. The peak instantaneous gradient of the aortic valve is 17.5 mmHg. The mean gradient of the aortic valve is 10.0 mmHg. Mitral Valve: The mitral valve is normal in structure. There is trace to mild mitral valve regurgitation. Tricuspid Valve: The tricuspid valve is structurally normal. There is mild tricuspid regurgitation. The Doppler estimated RVSP is moderately elevated right ventricular systolic pressure at 39.7 mmHg. Pulmonic Valve: The pulmonic valve is structurally normal. There is no indication of pulmonic valve regurgitation. Pericardium: No pericardial effusion noted. Aorta: The aortic root is normal. CONCLUSIONS: 1. The left ventricle was not well visualized. The left ventricular ejection fraction could not be measured. 2. The left ventricular systolic function is low normal, with a visually estimated ejection fraction of 50-55%. 3. Mild LVH. 4. There is mildly reduced right ventricular systolic function. 5. The left atrium is moderately dilated. 6. The right atrium is moderately dilated. 7. Trace to mild mitral valve regurgitation. 8. Mild tricuspid regurgitation is visualized. 9. Moderately elevated right ventricular systolic pressure. 10. No significant changes noted when compared to previous study. QUANTITATIVE DATA SUMMARY: 2D MEASUREMENTS: Normal Ranges: Ao Root d: 3.20 cm (2.0-3.7cm) LAs: 4.40 cm (2.7-4.0cm) RVIDd: 3.63 cm (0.9-3.6cm) IVSd: 1.15 cm (0.6-1.1cm) LVPWd: 1.40 cm (0.6-1.1cm) LVIDd: 4.71 cm (3.9-5.9cm) LVIDs: 3.21 cm LV Mass Index: 110.3 g/m2 LV % FS 31.8 % LV SYSTOLIC FUNCTION BY 2D PLANIMETRY (MOD): Normal Ranges: EF-A4C View: 47 % (>=55%) EF-A2C View: 46 % EF-Biplane: 49 % EF-Visual: 53 % LV EF Reported: 53 % LV DIASTOLIC FUNCTION: Normal Ranges: MV Peak E: 1.65 m/s (0.7-1.2 m/s) MV e' 0.077 m/s (>8.0) MV lateral e' 0.09 m/s MV medial e' 0.06 m/s E/e' Ratio: 21.41 (<8.0) MITRAL VALVE: Normal Ranges: MV Vmax: 1.80 m/s (<=1.3m/s) MV peak P.0 mmHg (<5mmHg) MV mean P.0 mmHg (<48mmHg) MITRAL INSUFFICIENCY: Normal Ranges: MR Vmax: 453.00 cm/s dP/dt: 1010 mmHg/s (>1200mmHg/sec) AORTIC VALVE: Normal Ranges: AoV Vmax: 2.09 m/s (<=1.7m/s) AoV Peak P.5 mmHg (<20mmHg) AoV Mean P.0 mmHg (1.7-11.5mmHg) LVOT Max Jose: 0.75 m/s (<=1.1m/s) AoV VTI: 46.00 cm (18-25cm) LVOT VTI: 16.50 cm LVOT Diameter: 2.00 cm (1.8-2.4cm) AoV Area, VTI: 1.13 cm2 (2.5-5.5cm2) AoV Area,Vmax: 1.13 cm2 (2.5-4.5cm2) AoV Dimensionless Index: 0.36 TRICUSPID VALVE/RVSP: Normal Ranges: Peak TR Velocity: 3.03 m/s RV Syst Pressure: 40 mmHg (< 30mmHg) PULMONIC VALVE: Normal Ranges: PV Max Jose: 0.7 m/s (0.6-0.9m/s) PV Max P.2 mmHg [id number] Aleida Valle MD Electronically signed on 01/17/2024 at 3:44:31 PM Final Procedure Note Aleida Valle MD - 01/17/[address], [address], [place] [address] TRANSTHORACIC ECHOCARDIOGRAM REPORT Patient Name: SHAHID JAY Reading Physician: [id number] Krause Study Date: 01/12/2024 Ordering Provider: ANGIE MOLINA MRN/PID: [id number] Fellow: Nurse: Date of /Age: 7 1940 / 83 years Innersole Maker: Alcides COPPOLA, MACKENZIE,RVT Gender: M Additional Staff: Height: 180.34 cm Admit Date: Weight: 90.27 kg Admission Status: Outpatient BSA / BMI: 2.10 m2 / 27.76 Department Location: [facility] kg/m2 [place] Blood Pressure: 134 /62 mmHg Study Type: TRANSTHORACIC ECHO (TTE) COMPLETE Diagnosis/ICD: 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 Evolut FX #34, HX , AFib, CAD, CHF, HTN,DM, Pacemaker, Dilated CM, CPT Codes: Echo Complete w Full Doppler-[id number] Study Detail: The following Echo studies were performed: 2D, M-Mode,Doppler and color flow. PHYSICIAN INTERPRETATION: Left Ventricle: The left ventricular systolic function is low normal, witha visually estimated ejection fraction of 50-55%. The left ventricle wasnot well visualized. The left ventricular ejection fraction could not bemeasured. The left ventricular cavity size is normal. Spectral Dopplershows a normal pattern of left ventricular diastolic filling. Mild LVH. Left Atrium: The left atrium is moderately dilated. Right Ventricle: The right ventricle is normal in size. There is mildlyreduced right ventricular systolic function. Right Atrium: The right atrium is moderately dilated. Aortic Valve: The aortic valve appears structurally normal. The aorticvalve dimensionless index is 0.36. There is no evidence of aortic valveregurgitation. The peak instantaneous gradient of the aortic valve is 17.5mmHg. The mean gradient of the aortic valve is 10.0 mmHg. Mitral Valve: The mitral valve is normal in structure. There is trace tomild mitral valve regurgitation. Tricuspid Valve: The tricuspid valve is structurally normal. There is mildtricuspid regurgitation. The Doppler estimated RVSP is moderately elevatedright ventricular systolic pressure at 39.7 mmHg. Pulmonic Valve: The pulmonic valve is structurally normal. There is noindication of pulmonic valve regurgitation. Pericardium: No pericardial effusion noted. Aorta: The aortic root is normal. CONCLUSIONS: 1. The left ventricle was not well visualized. The left ventricularejection fraction could not be measured. 2. The left ventricular systolic function is low normal, with a visuallyestimated ejection fraction of 50-55%. 3. Mild LVH. 4. There is mildly reduced right ventricular systolic function. 5. The left atrium is moderately dilated. 6. The right atrium is moderately dilated. 7. Trace to mild mitral valve regurgitation. 8. Mild tricuspid regurgitation is visualized. 9. Moderately elevated right ventricular systolic pressure. 10. No significant changes noted when compared to previous study. QUANTITATIVE DATA SUMMARY: 2D MEASUREMENTS: Normal Ranges: Ao Root d: 3.20 cm (2.0-3.7cm) LAs: 4.40 cm (2.7-4.0cm) RVIDd: 3.63 cm (0.9-3.6cm) IVSd: 1.15 cm (0.6-1.1cm) LVPWd: 1.40 cm (0.6-1.1cm) LVIDd: 4.71 cm (3.9-5.9cm) LVIDs: 3.21 cm LV Mass Index: 110.3 g/m2 LV % FS 31.8 % LV SYSTOLIC FUNCTION BY 2D PLANIMETRY (MOD): Normal Ranges: EF-A4C View: 47 % (>=55%) EF-A2C View: 46 % EF-Biplane: 49 % EF-Visual: 53 % LV EF Reported: 53 % LV DIASTOLIC FUNCTION: Normal Ranges: MV Peak E: 1.65 m/s (0.7-1.2 m/s) MV e' 0.077 m/s (>8.0) MV lateral e' 0.09 m/s MV medial e' 0.06 m/s E/e' Ratio: 21.41 (<8.0) MITRAL VALVE: Normal Ranges: MV Vmax: 1.80 m/s (<=1.3m/s) MV peak P.0 mmHg (<5mmHg) MV mean P.0 mmHg (<48mmHg) MITRAL INSUFFICIENCY: Normal Ranges: MR Vmax: 453.00 cm/s dP/dt: 1010 mmHg/s (>1200mmHg/sec) AORTIC VALVE: Normal Ranges: AoV Vmax: 2.09 m/s (<=1.7m/s) AoV Peak P.5 mmHg (<20mmHg) AoV Mean P.0 mmHg (1.7-11.5mmHg) LVOT Max Jose: 0.75 m/s (<=1.1m/s) AoV VTI: 46.00 cm (18-25cm) LVOT VTI: 16.50 cm LVOT Diameter: 2.00 cm (1.8-2.4cm) AoV Area, VTI: 1.13 cm2 (2.5-5.5cm2) AoV Area,Vmax: 1.13 cm2 (2.5-4.5cm2) AoV Dimensionless Index: 0.36 TRICUSPID VALVE/RVSP: Normal Ranges: Peak TR Velocity: 3.03 m/s RV Syst Pressure: 40 mmHg (< 30mmHg) PULMONIC VALVE: Normal Ranges: PV Max Jose: 0.7 m/s (0.6-0.9m/s) PV Max P.2 mmHg [id number] Aleida Valle MD Electronically signed on 01/17/2024 at 3:44:31 PM Final us Andrasanto Molina [employer] CV ECHO PROCEDURES F inal Result SYNGO * (ABNORMAL) Comprehensive metabolic panel (11/13/2023 10:35 AM EDT) [facility] Glucose 250(H) 74 - 99 mg/dL LAB CHEMISTRY METHOD 11/13/2023 12:22 PM EDT [facility] Sodium 137 136 - 145 mmol/L LAB CHEMISTRY METHOD 11/13/2023 12:22 PM EDT [facility] Potassium 3.9 3.5 - 5.3 mmol/L LAB CHEMISTRY METHOD 11/13/2023 12:22 PM EDT [facility] Chloride 101 98 - 107 mmol/L LAB CHEMISTRY METHOD 11/13/2023 12:22 PM EDT [facility] Bicarbonate 23 21 - 32 mmol/L LAB CHEMISTRY METHOD 11/13/2023 12:22 PM EDT [facility] Anion Gap 17 10 - 20 mmol/L LAB CHEMISTRY METHOD 11/13/2023 12:22 PM EDT [facility] Urea Nitrogen 29(H) 6 - 23 mg/dL LAB CHE[facility] Creatinine 1.51(H) 0.50 - 1.30 mg/dL LAB CHEMISTRY METHOD [facility]23 [facility] eGFR 46(L) >60 mL/min/1. 73m*2 LAB CHEMISTRY METHOD 11/13/2023 12:22 PM [facility] Comment: Calculations of estimated GFR are performed using the 2020 CKD-EPI Study Refit equation without the race variable for the IDMS-Traceable creatinine methods. https://jasn.asnjournals.org/content///ASN.1031043554 Calcium 8.9 8.6 - 10.6 mg/dL LAB CHEMISTRY METHOD 11/13/2023 12:22 PM [facility] Albumin 3.4 3.4 - 5.0 g/dL LAB CHEMISTRY METHOD 11/13/2023 12:22 PM EDT [facility] Alkaline Phosphatase 60 33 - 136 U/L LAB CHEMISTRY METHOD 11/13/2023 12:22 PM [facility] Total Protein 6.5 6.4 - 8.2 g/dL LAB CHEMISTRY METHOD [facility]23 [facility] AST 20 9 - 39 U/L LAB CHEMISTRY METHOD 11/13[facility]2023 12[facility] Bilirubin, Total 0.8 0.0 - 1.2 mg/dL LAB CHEMISTRY METHOD 11/13/2023 12:22 PM EDT [facility] ALT 13 10 - 52 U/L LAB CHEMISTRY METHOD 11/13/2023 12:22 PM EDT [facility] Comment:Patients treated wit h Sulfasalazine may generate falsely decreased results for ALT. Blood Venous blood specimen / Unknown Venipuncture / Unknown 11/13/2023 10:35 AM EDT 11/13/2023 10:41 AM EDT us Caron León MD LAB BLOOD ORDERABLES Final Res ult Performing Organization Address [facility] de Phone Number [facility] [address] [place], [place] [id number] * (ABNORMAL) TSH with reflex to Free T4 if abnormal (11/01/2023 6:18 PM EDT) Thyroid Stimulating Hormone 8.94(H) 0.44 - 3.98 mIU/L LAB IMMUNOASSAY METHOD 11/01/2023 8:18 PM EDT [facility] Blood Venous blood specimen / Unknown Venipuncture / Unknown 11/01/2023 6:18 PM EDT 11/01/2023 6:52 PM EDT Narrative [facility] - 11/01/2023 8:18 PM EDT TSH testing is performed using different testing methodology at [facility] than at other [facility]. Direct result comparisons should only be made within the same method. us Micah Mccallum [employer] LAB BLOOD ORDERABLES Fin al Result Performing Organization Address [facility] de Phone Number [facility] [address] [place] [phone] * (ABNORMAL) Hemoglobin A1c (11/01/2023 6:18 PM EDT) Hemoglobin A1C 6.9(H) see below % 7:39 PM EDT [facility] Estimated Average Glucose 151 Not Established mg/dL 11/01/2023 7:39 PM EDT [facility] Blood Venous blood specimen / Unknown Venipuncture / Unknown 11/01/2023 6:18 PM EDT 11/01/2023 6:53 PM EDT Narrative [facility] - 11/01/2023 7:39 PM EDT Diagnosis of Diabetes-Adults Non-Diabetic: < or = 5.6% Increased risk for developing diabetes: 5.7-6.4% Diagnostic of diabetes: > or = 6.5% us Micah Montanez Xena [facility] BLOOD ORDERABLES Fin al Result [facility] [address] [facility] [address] [address] [phone] from Last 3 Months or Most Recently Relevant to Health Maintenance Insurance MEDICARE PART A AND B [facility] MEDICARE PART A AND B AARP Advance Directives For more information, please contact: [phone] (Available ) Documents on File Type Date Recorded 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 Living Will 11/15/2023 * Full Code (Latest Code Status on File) Date Activated Date Inactivated Comments 11/01/2023 4:50 PM Question Answer Comments Plan of Care: Code Status Discussion Completed Decision Maker: Patient Healthcare Agents on File Name Relationship Healthcare Agent Relationship Communication Lilliana Bullard Daughter First Altern ate Health Care Agent [email or web address] Paddy Mann Daughter Second Alternate Health Care Agent Care Teams Real Estate Loan Officer Relationship Specialty Start Date End Date Al Martinez DO [address] [place] [address] PCP - General Internal Medicine 07/01/23
--- OUTSIDE RECORDS SUMMARY | 2024-08-17 12:44 | XMS_ITS | Encounter Summary ---
Author Organization [facility] Address [address] [place] [address] Phone Care Team Providers Care Property Inspector Name Role Phone RosalbaAl reilly Primary Care Provider Encounter Details Date Type Department Care Team (Late st Contact Info) Description 06/08/2024 Scanned Document [facility] [address] [place] [phone] Scanning, Generic Provider Social History Tobacco Use Types Packs/Day Years Used Date Smoking Tobacco: Former Cigarettes Smokeless Tobacco: Never Alcohol Use Standard Drinks/Week Comments Yes 0 (1 standard drink = 0.6 oz pur e alcohol) rarely AUDIT-C Answer Date Recorded Q1: How often [...] any time in the past 12 m ont, were you homeless or living in a fdc (including now)? No 11/01/2023 Sex and Gender Information Value Date Recorded Sex Assigned at Not on file Legal Sex Male 3:25 PM EST Gender Identity Not on file Sexual Orientation Not on file documented as of this encounter Plan of Treatment Upcoming Encounters Date Type Department Care Team (Late st Contact Info) Description 11/10/2024 9:00 AM EDT Telemedicine Clinical Support [facility] [address] [facility] [address] [place] [address] 04/12/2025 1:40 PM EST Office Visit [facility] [address] [facility] [address] [place] [address] Aleida Valle MD [address]03 [facility] [address], [address] [place] [address] documented as of this encounter Visit Diagnoses Not on filedocumented in this encounter Additional Health Concerns Assessment Noted Time A fall risk assessment has been complete d for the patient 01/25/2024 2:32 PM EDT documented as of this encounter Care Teams Property Inspector Relationship Specialty [place] [address] [place] [address] PCP - General Internal Medicine 07/01/23 documented as of this encounter
--- OUTSIDE RECORDS SUMMARY | 2024-08-17 12:44 | XMS_ITS | Clinical Summary ---
Author Organization [facility] Address [address] [place] [address] Care Team Providers Care Student Success Counselor Name Role Phone Michelle Newton DO, Charles Lewis Primary Care Provi haim Referring, No(Hist) Unavailable Unavailable Allergies No known active allergies Medications PLAVIX 75MG TABLET Take one(1) tablet daily. 0 12/09/19 03 Active amLODIPine (NORVASC) 10 mg tabletIndication s:Abnormal ECG Take 10 mg by mouth once daily. Active levothyroxine (SYNTHROID) 50 mcg tabletIndication s:Abnormal ECG Take 50 mcg by mouth daily before breakfast. Active finasteride (PROSCAR) 5 mg tabletIndication s:Abnormal ECG Take 5 mg by mouth once daily. Active mirabegron (MYRBETRIQ) 50 mg [id number]: Abnormal ECG Take 50 mg by mouth once daily. Active methotrexate 2.5 mg tabletIndication s:Abnormal ECG Take 2.5 mg by mouth every Wednesday. take six tablets every wed. Active rosuvastatin (CRESTOR) 10 mg tabletIndication s:Abnormal ECG Take 10 mg by mouth once daily. Active metFORMIN (GLUCOPHAGE) 500 mg tabletIndication s:Abnormal ECG Take 500 mg by mouth twice daily with meals. Active folic acid 800 mcg tabletIndication s:Abnormal ECG Take 400 mcg by mouth once daily. Active cholecalciferol (VITAMIN D-3) 5,000 unit tabIndications:A bnormal ECG Take 5,000 Units by mouth once daily. Active Ferrous Gluconate (IRON HIGH POTENCY) 240 mg (27 mg iron) tabletIndication s:Abnormal ECG Take 240 mg by mouth once daily. Active liraglutide (VICTOZA) 0.6 mg/ 0.1 ml subcutaneous pen injector Inject 1.8 mg subcutaneously once daily. Active inFLIXimab (REMICADE) 100 mg injection Inject 600 mg intravenously once daily. Active olmesartan (BENICAR) 40 mg tablet Take 40 mg by mouth once daily. Active oxybutynin (DITROPAN) 5 mg tablet Take 5 mg by mouth three times daily. Active Active Problems Problem Noted Date Diagnosed Date Abnormal ECG 01/21/2017 Family History Medical History Relation Comments Diabetes Father Heart Father [place] Hyperlipidemia Father Hypertension Father Cancer Mother breast cancer di ed at 52 Breast Cancer Sister Relation Status Comments Father Mother Sister Social History Tobacco Use Types Packs/Day Years Used Date Smoking Tobacco: Former Cigarettes 2 20 1 - 01/21/1985 Smokeless Tobacco: Never Alcohol Use Standard Drinks/Week Comments Yes 2 (1 standard drink = 0.6 oz pur e alcohol) Area Deprivation Index Answer Date Angelito rded National Score (1-100), lower number is lower ri sk Not on file 03/05/2020 State Score (1-10), lower number is lower risk N ot on file 03/05/2020 Data from: https://www.neighborhoodatlas.[facility]/. Last address used for calculation Not on file 03/05/2020 Sex and Gender Information Value Date Recorded Sex Assigned at Not on file Legal Sex Male 9:46 AM EST Gender Identity Not on file Sexual Orientation Not on file Last Filed Vital Signs Vital Sign Reading Time Taken Comments Blood Pressure 132/62 01/05/2019 8:26 AM EDT Pulse 77 01/05/2019 8:26 AM EDT Temperature 36.6 C (97.9 F) 01/05/2019 8:26 AM EDT Respiratory Rate 16 03/15/2018 7:39 AM EST Oxygen Saturation 96% 01/05/2019 8:26 AM EDT Inhaled Oxygen Concentration - - Weight 115.2 kg (254 lb) 01/05/2019 8:26 AM EDT Height 180.3 cm (5' 11 ) 03/15/2018 7:39 AM EST Body Mass Index 35.43 03/15/2018 7:39 AM EST Plan of Treatment Health Maintenance Due Date Last Done Comments Anxiety Screening 10/08/1958 Depression Screening 10/08/1958 Pneumococcal Vaccine: 50+ (1 of 1 - PCV) 10/08/1991 Shingrix Vaccine (1 of 2) 10/08/1991 RSV Vaccine (1 - 1-dose 75+ series) 2016 Diabetes Screening 03/15/2021 03/15/2018, 0 12/08/2002, 12/21/2000 Covid-19 Vaccine (1 - season) 2023 Advance Directive Discussion 03/29/2024 Influenza Vaccine (Season Ended) 2024 11/28/19 19, 03/25/2009 DTaP,Tdap,Td Vaccine (2 - Td or Tdap) 02/05/202712/2016 Procedures Procedure Name Priority Date/Time Associated Diagnosis Comments COMPREHENSIVE METABOLIC PANEL Routine 03/15/2018 10:35 AM EST Preoperative cardiovascular examination Aortic valve stenosis, etiology of cardiac valve disease unspecified Essential hypertension Dyslipidemia from Last 3 Months or Most Recently Relevant to Health Maintenance Results * (ABNORMAL) COMP METABOLIC PANEL (03/15/2018 10:35 AM EST) Protein, Total 7.3 6.3 - 8.0 g/dL 03/15/2018 4:56 PM EST [facility] Albumin 3.9 3.9 - 4.9 g/dL 03/15/2018 4:56 PM EST [facility] Calcium 9.2 8.5 - 10.2 mg/dL 03/15/2018 4:56 PM EST [facility] Bilirubin, Total 0.5 0.2 - 1.3 mg/dL 03/15/2018 4:56 PM EST [facility] Alkaline Phosphatase 68 38 - 113 U/L 03/15/2018 4:56 PM EST [facility] AST 27 14 - 40 U/L 03/15/2018 4:56 PM EST [facility] Glucose 155(H) 74 - 99 mg/dL 03/15/2018 4:56 PM EST [facility] Comment: The [place] Diabetes Association (ADA) provides guidance for cutoff values for fasting glucose and random glucose. The ADA defines fasting as no caloric intake for at least 8 hours. Fasting plasma glucose results between 100 to 125 mg/dL indicate increased risk for diabetes (prediabetes). Fasting plasma glucose results greater than or equal to 126 mg/dL meet the criteria for diagnosis of diabetes. In the absence of unequivocal hyperglycemia, results should be confirmed by repeat testing. In a patient with classic symptoms of hyperglycemia or hyperglycemic crisis, random plasma glucose results greater than or equal to 200 mg/dL meet the criteria for diagnosis of diabetes. Reference: Standards of Medical Care in Diabetes 2016, [place] Diabetes Association. Diabetes Care. 2016.39(Suppl 1). BUN 18 9 - 24 mg/dL 03/15/2018 4:56 PM [facility] Creatinine 1.31(H) 0.73 - 1.22 mg/dL 03/15/2018 4:[address] [facility] Sodium 140 136 - 144 mmol/L 03/15/2018 4:[address] [facility] Potassium 4.6 3.7 - 5.1 mmol/L 03/15/2018 4:[address] [facility] Chloride 104 97 - 105 mmol/L 03/15/2018 4:[address] [facility] CO2 24 22 - 30 mmol/L 03/15/2018 4:[address] [facility] Anion Gap 12 9 - 18 mmol/L 03/15/2018 4:[address] [facility] ALT 23 10 - 54 U/L 03/15/2018 4:[address] [facility] eGFR- >60 03/15/2018 4:[address] [facility] eGFR-All Other Races 53 . 03/15/2018 4:[address] [facility] Comment: eGFR (Estimated GFR) Units of measure: mL/min/1.73 meters squared eGFR is derived from the reexpressed MDRD Study equation using the following parameters: serum creatinine, age, gender and race. The creatinine assay has been calibrated to be traceable to IDMS. An eGFR <60 mL/min/1.73m2 for >3 months is consistent with chronic kidney disease. Refer to KDOQI guidelines for clinical interpretation. In patients with unstable renal function, e.g. those with acute kidney injury, the eGFR may not accurately reflect actual GFR. Blood specimen (specimen) BLOOD SPECIMEN / Unknown 03/15/2018 10:35 AM EST 03/15/2018 10:37 AM EST [facility] Final Result [facility] [address] [place] [address] from Last 3 Months or Most Recently Relevant to Health Maintenance Insurance MEDICARE Member Subscriber Plan / Payer (Ef fective 2006-Present) Name:Bruno Jay Member ID:[id number] Relation to Subscriber:Self Name:Bruno Jay Subscriber ID:[id number] Payer ID:Not on file Group ID:Not on file Type:Medicare Address: [address] Care Teams Student Success Counselor Relationship Specialty Start Date End Date Al Martinez Jr., [facility] [place] [address] PCP - General 01/29/01 Referring, No(Hist) 03/17/18
--- OUTSIDE RECORDS SUMMARY | 2024-08-17 12:44 | XMS_ITS | Encounter Summary ---
Author Organization [facility] Address [address] [place] [address] Phone Care Team Providers Care Rfid Specialist Name Role Phone RosalbaAl reilly Erich HDEZ Primary Care Provider [phone] Camryn Davies NARROW GAUGE BRAKEMAN Unavailable Encounter Details Date Type Department Care Team (Late st Contact Info) Description 09/14/2023 Scanned Document [facility] [address] [place] [phone] Scanning, Generic Provider Social History Tobacco Use Types Packs/Day Years Used Date Smoking Tobacco: Former Cigarettes Smokeless Tobacco: Never Alcohol Use Standard Drinks/Week Comments Not Currently 0 (1 standard drink = 0.6 oz pur e alcohol) Sex and Gender Information Value Date Recorded Sex Assigned at Not on file Legal Sex Male 3:25 PM EST Gender Identity Not on file Sexual Orientation Not on file documented as of this encounter Plan of Treatment Upcoming Encounters Date Type Department Care Team (Late st Contact Info) Description 11/10/2024 9:00 AM EDT [facility] [address] [place] [phone] 04/12/2025 1:40 PM EST Office Visit [facility] [address] [place] [address] Aleida Valle MD [address] [place] [address] documented as of this encounter Procedures Procedure Name Priority Date/Time Associated Diagnosis Comments CARDIAC CATHETERIZATION PROCEDURE - ONBASE SCAN 09/14/2023 documented in this encounter Results * Cardiac Catheterization - Onbase Scan (09/14/2023) Narrative 09/14/2023 Ordered by an unspecified provider. us Generic Provider Scanning CV CARDIAC CATH PROCED URES Final Result documented in this encounter Visit Diagnoses Not on filedocumented in this encounter Additional Health Concerns Assessment Noted Time A fall risk assessment has been complete d for the patient 06/23/2023 1:14 PM EDT documented as of this encounter Care Teams Rfid Specialist Relationship Specialty Start Date End Date Al Martinez DO [address] [place] [address] PCP - General Internal Medicine 07/01/23 Camryn Davies, ROHINI Consular OfficerMold Insert Changer 11/15/23 11/15/23 documented as of this encounter
--- OUTSIDE RECORDS SUMMARY | 2024-08-17 12:44 | XMS_ITS | Encounter Summary ---
Author Organization [facility] Address [address] [place] [address] Phone Care Team Providers Care Human Resources Recruiter Name Role Phone RosalbaAl reilly Erich HDEZ Primary Care Provider [phone] Camryn Davies CABIN MAN Unavailable Encounter Details Date Type Department Care Team (Late st Contact Info) Description 09/13/2023 Scanned Document [facility] [address] [place] [phone] Scanning, Generic Provider Social History Tobacco Use [...] 11/10/2024 9:00 AM EDT [facility] [address] [place] [address] 04/12/2025 1:40 PM EST Office Visit [facility] [address] [place] [address] Aleida Valle MD [address] [place] [address] documented as of this encounter Procedures Procedure Name Priority Date/Time Associated Diagnosis Comments ECHOCARDIOGRAM 09/13/2023 documented in this encounter Results * Echocardiogram (09/13/2023) Narrative 09/13/2023 Ordered by an unspecified provider. us Generic Provider Scanning CV ECHO PROCEDURES Fin al Result documented in this encounter Visit Diagnoses Not on filedocumented in this encounter Additional Health Concerns Assessment Noted Time A fall risk assessment has been complete d for the patient 06/23/2023 1:14 PM EDT documented as of this encounter Care Teams Human Resources Recruiter Relationship Specialty Start Date End Date Al Martinez DO [address] [place] [address] PCP - General Internal Medicine 07/01/23 Camryn Davies, CABIN MAN Contact AssemblerBarrel Racer 11/15/23 11/15/23 documented as of this encounter
--- OUTSIDE RECORDS SUMMARY | 2024-08-17 12:44 | XMS_ITS | Encounter Summary ---
Author Organization [facility] Address [address] [place] [address] Phone Care Team Providers Care Seam Rubbing Machine Operator Name Role Phone RosalbaAl reilly Primary Care Provider [phone] Encounter Details Date Type Department Care Team (Late st Contact Info) Description 08/14/2024 Scanned Document [facility] [address] [place] [phone] Scanning, Generic Provider Social History Tobacco Use [...] were you homeless or living in a penitentiary (including now)? No 11/01/2023 Sex and Gender Information Value Date Recorded Sex Assigned at Not on file Legal Sex Male 3:25 PM EST Gender Identity Not on file Sexual Orientation Not on file documented as of this encounter Plan of Treatment Upcoming Encounters Date Type Department Care Team (Late st Contact Info) Description 11/10/2024 9:00 AM EDT Telemedicine Clinical Support [facility] [address] [facility] [address] [place] [address] 04/12/2025 1:40 PM EST Office Visit [facility] [address] [facility] [address] [place] [address] Aleida Valle MD 703 [facility] [address], [address] [place] [address] documented as of this encounter Visit Diagnoses Not on filedocumented in this encounter Additional Health Concerns Assessment Noted Time A fall risk assessment has been complete d for the patient 07/12/2024 3:47 PM EDT documented as of this encounter Care Teams Seam Rubbing Machine Operator Relationship Specialty [place] [address] [place] [address] PCP - General Internal Medicine 07/01/23 documented as of this encounter
--- OUTSIDE RECORDS SUMMARY | 2024-08-17 12:44 | XMS_ITS | Encounter Summary ---
Author Organization [facility] Address [address] [place] [address] Phone Care Team Providers Care Machine Erector Name Role Phone RosalbaAl reilly Erich HDEZ Primary Care Provider Camryn Davies PRODUCTION TESTER Unavailable Encounter Details Date Type Department Care Team (Late st Contact Info) Description 09/09/2023 Scanned Document [facility] [address] [place] [phone] Scanning, Generic Provider Social History Tobacco Use [...] 11/10/2024 9:00 AM EDT [facility] [address] [place] [phone] 04/12/2025 1:40 PM EST Office Visit [facility] [address] [place] [address] Aleida Valle MD [address] [facility] [address] [place] [address] documented as of this encounter Procedures Procedure Name Priority Date/Time Associated Diagnosis Comments OUTSIDE DEVICE CHECK - ONBASE SCAN 09/09/2023 OUTSIDE IMAGING SCAN 09/09/2023 documented in this encounter Results * Outside Device Check - Onbase Scan (09/09/2023) Narrative 09/09/2023 Ordered by an unspecified provider. us Generic Provider Scanning CV CARDIAC SERVICES TX OCEDURES Final Result * OUTSIDE IMAGING SCAN (09/09/2023) Anatomical Region Laterality Modality Other Narrative 09/09/2023 Ordered by an unspecified provider. us Generic Provider Scanning OUTSIDE SCAN Final Result documented in this encounter Visit Diagnoses Not on filedocumented in this encounter Additional Health Concerns Assessment Noted Time A fall risk assessment has been complete d for the patient 06/23/2023 1:14 PM EDT documented as of this encounter Care Teams Machine Erector Relationship Specialty Start Date End Date Al Martinez DO [address] [place] [address] PCP - General Internal Medicine 07/01/23 Camryn Davies LPN Associate CounselOptical Dispenser 11/15/23 11/15/23 documented as of this encounter
--- OUTSIDE RECORDS SUMMARY | 2024-08-17 12:44 | XMS_ITS ---
Author Organization [facility] Address [address] 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 Past Treatment and Therapy Plans No past plan information found. Lifetime Dose Tracking * Chemical Lifetime Dose Automatic Entry Manual Entr y Fluoro Time 27 minutes 0 minutes 27 minutes Air Kerma 1,302 mGy 0 mGy 1,302 mGy Resolved Problems Problem Noted Date Diagnosed Date Resolved Date Aortic stenosis 11/05/2023 01/25/2024 Aortic stenosis, severe 10/29/202312/28 Dilated cardiomyopathy (Multi) 10/13/2023 01/25/2024 Heart disease, hypertensive 02/23/2023 06/23/2023 HFrEF (heart failure with re duced ejection fraction) 02/23/2023 01/25/2024
--- OUTSIDE RECORDS SUMMARY | 2024-08-17 12:44 | XMS_ITS | Patient Health Record ---
Author Organization [facility] in [place] Address [address] [place] [address] Care Team Providers Care Technology Coordinator Name Role Phone Al Raymundo DO Primary Care Provider Unavail Helen Delong Unavailable [phone] Allergies No Known Allergies Results Component Value Reference Range Notes HEMOGLOBIN Reviewed date:08/07/2024 07:41:16 AM Interpretation: Performing Lab: Notes/Report: [facility] , Hemoglobin 10.0 14.0-18.0 g/dL Performing Lab: see note ML - [facility] BLOOD GASES BTY Reviewed date:08/14/2024 03:13:08 PM Interpretation: Performing Lab: Notes/Report: [facility] , pH ABG 7.461 7.350-7.450 ABG PCO2 31.7 35.0-45.0 mmHg PO2 ABG 50.3 80.0-100.0 mmHg RESULTS CALL ED TO WENDY COLLADO RRT at 1404 HCO3 ABG 22.6 22.0-26.0 mmol/L Base Excess ABG -1.2 -2.0-2.0 mmol/L Oxygen Saturation ABG 87.3 Frandy Test POSITIVE POSITIVE O2 Mode ROOM AIR Puncture Site RT BRACH Performing Lab: see note ML - [facility] ITP Reviewed date:07/26/2024 02:48:32 PM Interpretation: Performing Lab: Notes/Report: Source Facility: [facility]-[address] [place] [address] [place] [address] Cardiac Rehab Report Signed Patient: SHAHID JAY MR#: [id number] : 1940 Acct:[id number] Age/Sex: 83 / M ADM Date: 07/26/24 Loc: CR Attending Dr: AL RAYMUNDO D.O. Ordering Physician: Helen Casas D.O. Date of Service: 07/26/24 Procedure(s): ITP Accession Number(s): [id number] cc: [facility] Test Date: 2024-07-26 Pat Name: SHAHID JAY Department: Room: - Gender: Male School Age Program Associate: : 1940 Requested By: Helen Casas Order Number: [id number] Reading MD: Helen Casas Interpretive Statements Continue to monitor SpO2 with exercise. Recommend supplemental O2 if SpO2 drops to 88% or less during exercise - apply @ 2L/min O2 per NC to maintain SpO2 89% or greater. Otherwise, continue participating in cardiac rehabilitation with the outlined exercise prescription. Electronically Signed On 07-26-2024 14:34:28 EDT by Helen Casas Dictated By: Helen Casas D.O. Signed By: 07/26/24 1434 07/26/24 1434 DD/ 0747 TD/TT: Advertising Operations Manager: [place] [address] Cardiac Rehab Report Signed Patient: SHAHID JAY MR#: [id number] : 1940 Acct:[id number] Age/Sex: 83 / M ADM Date: 07/26/24 Loc: CR Attending Dr: ELLI RAYMUNDO D.O. Ordering Physician: Helen Casas D.O. Date of Service: 07/26/24 Procedure(s): ITP Accession Number(s): [id number] cc: [facility] Test Date: 2024-07-26 Pat Name: SHAHID Lock Department: 94 Room: - Gender: Male School Age Program Associate: : 1940 Requ ested By: Helen Casas Order Number: [id number] Reading MD: Helen Casas Interpretive Statements Continue to monitor SpO2 with exercise. Recommend supplemental O2 if SpO2 drops to 88% or less during exercise - apply @ 2L/min O2 per NC to maintain SpO2 89% or greater. Otherwise, continue participating in cardiac rehabilitation with the outlined exercise prescription. Electronically Jessica d On 07-26-2024 14:34:28 EDT by Helen Casas Dictated By: Marc Casas D.O. Signed By: 07/26/24 1434 07/26/24 1434 DD/ 0747 TD/TT: Advertising Operations Manager: XR Chest PA and Lateral (Rou anderson CXR) * Reviewed date:08/01/2024 03:40:54 PM Interpretation: Performing Lab: Notes/Report: RT pulmonary function test Reviewed date:08/07/2024 10:34:54 AM Interpretation: Performing Lab: Notes/Report: Source Facility: [place] [address] Respiratory Report Signed Patient: SHAHID JAY MR#: [id number] : 1940 Acct:[id number] Age/Sex: 83 / M ADM Date: 08/03/24 Loc: CARD Attending Dr: Helen Casas D.O. Ordering Physician: Helen Casas D.O. Date of Service: 08/03/24 Procedure(s): RT pulmonary function test Accession Number(s): [id number] cc: [facility] Test Date: 2024-08-03 Pat Name: SHAHID JAY Department: Room: - Gender: Male School Age Program Associate: Wendy Collado RRT : 1940 Requested By: Helen Casas Order Number: [id number] Reading MD: Helen Casas Interpretive Statements Pulmonary function testing was completed according to ATS criteria. Findings were considered accurate and reproducible, with exception of DLCO which did not meet ATS standards. Both pre- and post-bronchodilator values utilized for spirometry. Spirometry (based on pre-bronchodilator values): -FEV1/FVC: Low normal @ 70% -FEV1: Normal @ 92% -FVC: Normal @ 92% -There is no significant bronchodilator response. Lung volumes by plethysmography (based on pre-bronchodilator values): -RV: Low normal @ 81% -TLC: Low normal @ 80% Diffusion capacity: -DLCO: Very severe reduction @ 29% when corrected for Hb 10g/dL Impressions: -Spirometry trends towards a mild obstruction pattern. There is no bronchodilator response. Lung volumes are normal. Very severe diffusion impairment out of proportion to remainder of testing which may be due in part to inability to meet ATS criteria for DLCO testing. Overall study suggests COPD/emphysema. Clinical correlation required. Electronically Signed On 08-07-2024 8:00:59 EDT by Helen Casas Dictated By: Helen Casas D.O. Signed By: 08/07/24 0808/07/24 08 DD/ 1432 TD/TT: Advertising Operations Manager: [place] [address] Respiratory Report Signed Patient: SHAHID JAY MR#: [id number] : 1940 Acct:[id number] Age/Sex: 83 / M ADM Date: 08/03/24 Loc: CARD Attending Dr: Helen Casas D.O. Ordering Physician: Helen Casas D.O. Date of Service: 08/03/24 Procedure(s): RT pulmonary function test Accession Number(s): [id number] cc: [facility] Test Date: 2024-08-03 Pat Name: SHAHID Lock Department: 94 Room: - Gender: Male Technic mariaa: Wendy Collado RRT : 1940 Requ ested By: Helen Casas Order Number: [id number] Reading MD: Helen Casas Interpretive Statements Pulmonary function testing was completed according to ATS criteria. Findings were considered accu rate and reproducible, with exception of DLCO which did not meet ATS standar ds. Both pre- and post-bronchodilator values utilized for spirometry. Spirometry (based on pre-bronchodilator values): -FEV1/FVC: Low gabby l @ 70% -FEV1: Normal @ 92% -FVC: Normal @ 92% -There is no signifi cant bronchodilator response. Lung volumes by plethysmography (based on pre-bronchodilator values): -RV: Low normal @ 81% -TLC: Low normal @ 80% Diffusion capacity: -DLCO: Very severe reduction @ 29% when corrected for Hb 10g/dL Impressions: -Spirometry trends towards a mild obstruction pattern. There is no bronchodilator respo nse. Lung volumes are normal. Very severe diffusion impairment out of proportion to remainder of testing which may be due in part to inability to meet ATS criteria for DLCO testing. Overall study suggests COPD/emphysema. Clin ical correlation required. Electronically Jessica d On 08-07-2024 8:00:59 EDT by Helen Casas Dictated By: Marc Casas D.O. Signed By: 08/07/24 0801 08/07/24 08 DD/ 1432 TD/TT: Advertising Operations Manager: XR chest 2V Reviewed date:08/01/2024 02:59:55 PM Interpretation: Performing Lab: Notes/Report: Source Facility: [place] [address] XRay Report Signed Patient: SHAHID JAY MR#: [id number] : 1940 Acct:[id number] Age/Sex: 83 / M ADM Date: 08/01/24 Loc: RAD Attending Dr: Helen Casas D.O. Ordering Physician: Helen Casas D.O. Date of Service: 08/01/24 Procedure(s): XR chest 2V Accession Number(s): [id number] cc: Helen Casas D.O.; AL RAYMUNDO D.O. [place] [address] Patient Name: SHAHID JAY MRN: [id number] date: 1940 Sex: M Assigned Patient Location: [facility] Current Patient Location: RAD Accession/Order Number: [id number] Exam Date: 08/01/2024 14:29 Report Date: 08/01/2024 14:30 At the request of: HELEN CASAS DO Procedure: XR chest 2V Chest 2 views CLINICAL HISTORY: Shortness Of Breath COMPARISON: None FINDINGS: Pacemaker device in place. Heart valve replacement. Cardiomegaly with mild vascular congestion. No consolidation pneumothorax pleural effusion or free air. XR/XR chest 2V IMPRESSION: CHF FINDINGS. NO CONSOLIDATION TO SUGGEST PNEUMONIA. Impression dictated by: Ricardo Francisco Jr., D.O. 08/01/2024 2:30 PM Dictation Location: [facility] Electronically authenticated by: [id number] Y Date: 08/01/2024 14:30 Dictated By: Ricardo Francisco M.D. Signed By: 08/01/24 1433 DD/ 143 TD/TT: Advertising Operations Manager: [place] [address] XRay Report Signed Patient: SHAHID JAY MR#: [id number] : 1940 Acct:[id number] Age/Sex: 83 / M ADM Date: 08/01/24 Loc: JOAQUIM Attending Dr: Helen Casas D.O. Ordering Physician: Helen Casas D.O. Date of Service: 08/01/24 Procedure(s): XR chest 2V Accession Number(s): [id number] cc: Helen Casas D.O; AL RAYMUNDO D.O. [place] [address] Patient Name: SHAHDI JAY MRN: [id number] date: 1940 Sex: M Assigned Patient Location: [facility] Current Patient Loca tion: RAD Accession/Order Numb er: [id number] Exam Date: 08/01/2024 14:29 Report Date: 08/01/2024 14:30 At the request of: HELEN CASAS DO Procedure: XR chest 2V Chest 2 views CLINICAL HISTORY: Shortness Of Breath COMPARISON: None FINDINGS: Pacemaker device in place. Heart valve replacement. Cardiomegaly with mild vascular congestion. No consolidation pneumothorax pleural effusion or free air. X R/XR chest 2V IMPRESSION: CHF FINDINGS. NO CONSOLIDATION TO SUGGEST PNEUMONIA. Impression dictated by: Ricardo Francisco Jr., D.O. 08/01/2024 2:30 PM Dictation [facility] Electronically authenticated by: [id number] Y Date: 08/01/2024 14:30 Dictated By: Ricardo Francisco M.D. Signed By: 08/01/24 1433 DD/ 1430 TD/TT: Advertising Operations Manager: Reason For Referral No Information Medications Medication SIG (Take, Route, Frequency, Duration) Notes Start Date End Date Status Famotidine 40 MG Oral for 90 Days Active Tamsulosin HCl 0.4 MG TAKE 1 CAPSULE BY MOUTH AT BEDTIME Oral for 90 Days Active Kerendia 20 MG Oral for 30 Days Active Levothyroxine Sodium 50 MCG Oral for 90 Days Active metFORMIN HCl 850 MG TAKE 1 TABLET BY [facility] ONCE DAILY BEFORE MEALS IN THE EVENING Oral for 90 Days Active Methotrexate Sodium 2.5 MG Oral for 84 Days Active Metoprolol Succinate ER 25 MG Oral for 90 Days Active Montelukast Sodium 10 MG TAKE 1 TABLET B Y MOUTH EVERY DAY Oral for 90 Days Activ e Pantoprazole Sodium 40 MG TAKE 1 TABLET BY MOUTH EVERY MORNING Oral for 90 Days Active Bydureon BCise 2 MG/0.85ML INJECT 2mg HERNANDEZ BCUTANEOUSLY (UNDER THE SKIN) ONCE A WEEK Subcutaneous for 28 Days Active Trelegy Ellipta 100-62.5-25 MCG/ACT 1 puff Inhalation Once a day for 30 days Rinse after use 08/14/2024 Active Colesevelam HCl 625 MG take 6 tablets by mouth daily Oral for 90 Days Active ProFe 391.3 (180 Fe) MG TAKE 1 CAPSULE B Y MOUTH WITH dinner Oral for 90 Days Active Dutasteride 0.5 MG TAKE 1 TABLET EVERY DAY Oral for 90 Days Active Rosuvastatin Calcium 5 MG TAKE 1 TABLET BY MOUTH DAILY Oral for 90 Days Active Eliquis 5 MG [facility] Oral for 90 Days Active Spironolactone 25 MG Oral for 90 Days Active Immunizations Vaccine Route Administration Date Status [facility] Sy[facility] Pre -Filled 30 mcg/0.3 mL Unknown 03/25/2023 Administered Tdap (Boostrix) Unknown 02/05/2017 Administered Social History Tobacco Use: Social History Observation [...] Status Risk Notes Problem Chronic respiratory failure (18057751) Chronic respiratory failure with hypoxia (J96.11) Active confirmed Problem Coronary artery disease (24612174) CAD (coronary artery disease) (I25.10) Active confirmed Problem Hiatal hernia (61297030) Hiatal hernia (K44.9) Active confirmed Problem Rheumatoid arthritis (50099796) RA (rheumatoid arthritis) (M06.9) Active confirmed Problem Diabetes mellitus type 2 (disorder) (79525060) DM2 (diabetes mellitus, type 2) (E11.9) Active confirmed Problem Pleural effusion (99616134) Pleural effusion (J90) Active confirmed Problem Chronic systolic heart failure (952882181) Chronic systolic CHF (congestive heart failure) (I50.22) Active confirmed Problem Secondary pulmonary hypertension (47556150) 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) Active confirmed Problem Abnormal CXR (R93.89) Active confirmed Problem Chronic atrial fibrillation (659553224) Chronic atrial fibrillation (I48.20) Active confirmed Vital Signs Heart Rate 70 /min 08/14/2024 Temperature 96.8 degrees Fahrenheit 08/14/2024 Respiratory Rate 18 /min 08/14/2024 Oximetry 94 % 08/14/2024 Blood pressure diastolic 55 mm Hg 08/14/2024 Height 72 in 08/14/2024 Blood pressure systolic 130 mm Hg 08/14/2024 Weight 218.8 lbs 08/14/2024 BMI 29.67 kg/m2 08/14/2024 Procedures Procedure Date Ordered Date Performed Result Body Sit e Six minute walk 07/17/2024 08/03/2024 N/A PFT (86436, 68120, 04851) 07/17/2024 08/03/2024 N/A ABG 08/02/2024 08/14/2024 N/A Inhaler Teaching/Aerosol-performed 08/14/2024 08/14/2024 N /A Encounters Encounter Location Date Provider Diagnosis [facility] [place] [address] [place] [address] 07/06/2024 [facility] [place] [address] [place] [address] 08/02/2024 Helen Samsa Shortness of breath R06.02 [facility] [place] [address] [place] [address] 08/15/2024 [facility] [address] [place] [address] 08/15/2024 [facility] [address] [place] [address] 08/14/2024 Helen [facility] Shortness of breath R06.02 ; Chronic respiratory failure with hypoxia J96.11 ; Abnormal CXR R93.89 ; RA (rheumatoid arthritis) M06.9 ; Chronic systolic CHF (congestive heart failure) I50.22 ; CAD (coronary artery disease) I25.10 and DM2 (diabetes mellitus, type 2) E11.9 [facility] [place] [address] [place] [address] 07/17/2024 Helen [facility] Shortness of breath R06.02 ; Hypoxemia R09.02 ; Postnasal drip R09.82 ; RA (rheumatoid arthritis) M06.9 ; Pleural effusion J90 ; Other secondary pulmonary hypertension I27.29 ; Epistaxis R04.0 ; Chronic systolic CHF (congestive heart failure) I50.22 ; Chronic atrial fibrillation I48.20 ; Hiatal hernia K44.9 ; CAD (coronary artery disease) I25.10 and DM2 (diabetes mellitus, type 2) E11.9 Assessments Encounter Date Diagnosis (ICD Code) Assessment Notes Treatment Notes Treatment Clinical Notes Section Notes 07/17/2024 Shortness of breath (ICD-10 - R06.02) Worsening CERVANTES over time. Has multiple cardiac issues which could be contributing, but these are being managed by cardiology. Worse despite TAVR. Unknown if any pulmonary contribution. Has smoking history, so COPD is in the differential. Additionally, he has RA, but no known lung disease. Patient voiced he would like to find out what is going on. Recommended PFT and CXR to start, along with 6MW to assess his oxygenation better. He voiced agreement. Will F/U after testing is completed. 07/17/2024 Hypoxemia (ICD-10 - R09.02) Low SpO2 noted in cardiac rehab, low today in the office with SpO2 85% on room air. Supplemental O2 ambulation may help relief his CERVANTES, though I am unclear if he would actually wear it while active/out and about... Ordering 6MW to assess for adequate required O2 flow. 08/14/2024 Shortness of breath (ICD-10 - R06.02) [...] respiratory failure with hypoxia (ICD-10 - J96.11) [id number] encounter performed with the patient to document [...] Ordering HRCT to evaluate for any ILD. 08/02/2024 Shortness of breath (ICD-10 - R06.02) 08/14/2024 Abnormal CXR (ICD-10 - R93.89) CXR 08/01/2024 noted CHF findings - though he has a history of systolic CHF, he has appeared euvolemic. He has RA and is on MTX, so there is concern he may be developing connective tissue-ILD. Ordering HRCT for better evaluation of the lung architecture. 07/17/2024 Postnasal drip (ICD-10 - R09.82) He complains of sinus congestion leading to PND inducing cough (? upper airway cough syndrome). With his epistaxis and management by Dr. Smith, I explained that I am very cautious about prescribing any intranasal sprays at this time - they have the potential of worsening epistaxis. He is already using [place] saline gel - I did recommend intranasal saline to use liberally. Anything beyond this, I would refer back to Dr. Smith. 07/17/2024 RA (rheumatoid arthritis) (ICD-10 - M06.9) Follows with Dr. Bolton, on methotrexate and Remicade. No known connective tissue disease-associated pulmonary disease. Ordering CXR and PFT for initial evaluation. Depending on findings, he may require HRCT. 08/14/2024 RA (rheumatoid arthritis) (ICD-10 - M06.9) Follows with Dr. Bolton, on methotrexate and Remicade. With very low DLCO and abnormal CXR, ordering HRCT to evaluate for ILD. 08/14/2024 Chronic systolic CHF (congestive heart failure) (ICD-10 - I50.22) Euvolemic on examination today. 07/17/2024 Pleural effusion (ICD-10 - J90) No large effusion auscultated, percussed, etc. on examination. Would be most consistent secondary to CHF. 07/17/2024 Other secondary pulmonary hypertension (ICD-10 - I27.29) Likely group 2 (cardiac) - unclear if any group 3 involvement. 08/14/2024 CAD (coronary artery disease) (ICD-10 - I25.10) F/U with cardiology. 08/14/2024 DM2 (diabetes mellitus, type 2) (ICD-10 - E11.9) Steroids prescribed for this patient's underlying pulmonary disease can adversely affect blood glucose levels, inducing hyperglycemia and worsening underlying diabetes. The patient is encouraged to follow up with the primary care provider to create a plan to manage diabetes in this situation. 07/17/2024 Epistaxis (ICD-10 - R04.0) F/U with Dr. Smith. 07/17/2024 Chronic systolic CHF (congestive heart failure) (ICD-10 - I50.22) Appears fairly euvolemic today. F/U with cardiology. 07/17/2024 Chronic atrial fibrillation (ICD-10 - I48.20) F/U with cardiology. 07/17/2024 Hiatal hernia (ICD-10 - K44.9) May be contriubting to reflux. 07/17/2024 CAD (coronary artery disease) (ICD-10 - I25.10) F/U with cardiology. 07/17/2024 DM2 (diabetes mellitus, type 2) (ICD-10 - E11.9) Steroids prescribed for this patient's underlying pulmonary disease can adversely affect blood glucose levels, inducing hyperglycemia and worsening underlying diabetes. The patient is encouraged to follow up with the primary care provider to create a plan to manage diabetes in this situation. 08/14/2024 Other Plan Of Treatment Future Test Test Name Order Date CT Chest High Resolution 08/14/2024 Next Appt Details Provider Name:Helen Casas, 09/11/2024 02:30:00 PM, [address] [place], [address], Insurance Providers Payer Name Payer Address Payer Phone Subscriber Number Group Number Insured Name Patient Relationship to Insured Coverage Start Date Coverage End Date [place] [address] [place] [address] [id number] Shahid Jay Self - patient is the insured 7 [facility] MEDICARE ADVANTAGE [address] [address] [place] [address] [id number] Shahid Jay Self - patient is the insured Medical (General) History Medical History History ICD Code Chronic systolic CHF (congestive heart f ailure) I50.22 Pleural effusion J90 Hiatal hernia K44.9 CAD (coronary artery disease) I25.10 Other secondary pulmonary hypertension I 27.29 Chronic atrial fibrillation I48.20 AV node dysfunction I45.89 Diverticulosis K57.90 Lumbar spinal stenosis M48.061 Aortic stenosis Q25.3 HTN (hypertension) I10 DM2 (diabetes mellitus, type 2) E11.9 RA (rheumatoid arthritis) M06.9 Hypothyroidism E03.9 OA (osteoarthritis) M19.90 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
--- OUTSIDE RECORDS SUMMARY | 2024-08-17 12:44 | XMS_ITS | Encounter Summary ---
Author Organization [facility] Address [address] [place] [address] Care Team Providers Care Warp Spooler Name Role Phone Al Martinez MD Primary Care Provider [phone] Dewey Smith DO Unavailable [phone] Encounter Details Date Type Department Care Team (Late st Contact Info) Description 08/16/2024 Abstract [facility] [address] [facility] [place] [phone] Dewey Smith DO [address] [place], [place] [id number] Social History Tobacco Use Types Packs/Day Years Used Date Smoking Tobacco: Former Cigarettes Q uit: 1980 Smokeless Tobacco: Never Alcohol Use Standard Drinks/Week Comments Not Currently 0 (1 standard drink = 0.6 oz pur e alcohol) Sex and Gender Information Value Date Recorded Sex Assigned at Not on file Legal Sex Male 7:35 PM EDT Gender Identity Not on file Sexual Orientation Not on file documented as of this encounter Plan of Treatment Not on file documented as of this encounter Visit Diagnoses Not on filedocumented in this encounter Care Teams Warp Spooler Relationship Specialty Start Date End Date Al Martinez MD [address] [place] [address] [place] [address] PCP - General Internal Medicine 07/24/23 Dewey Smith DO [address] [place] [address] Otolaryngology 08/24/23 documented as of this encounter
--- OUTSIDE RECORDS SUMMARY | 2024-08-17 12:44 | XMS_ITS | Encounter Summary ---
Author Organization [facility] Address [address] [place] [address] Phone Care Team Providers Care Wrapper Stemmer Hand Name Role Phone RosalbaAl reilly Primary Care Provider Camryn Davies ENGINE INSPECTOR Unavailable Encounter Details Date Type Department Care Team (Late st Contact Info) Description 10/11/2023 Cardiology Conference [facility] [address] [place] [address] [place] [address] [place] [address] Social History Tobacco Use Types Packs/Day Years Used Date Smoking Tobacco: Former Cigarettes Smokeless Tobacco: Never Alcohol Use Standard Drinks/Week Comments Not Currently 0 (1 standard drink = 0.6 oz pur e alcohol) Sex and Gender Information Value Date Recorded Sex Assigned at Not on file Legal Sex Male 3:25 PM EST Gender Identity Not on file Sexual Orientation Not on file COVID-19 Exposure Response Date Recorded In the last 10 days, have yo u been in contact with someone who was confirmed or suspected to have Coronavirus/COVID-19? No / Unsure 10/13/2023 2:59 PM EDT documented as of this encounter Plan of Treatment Upcoming Encounters Date Type Department Care Team (Late st Contact Info) Description 11/10/2024 9:00 AM EDT Telemedicine Clinical Support [facility]3] [place] [address] [place] [address] 04/12/2025 1:40 PM EST Office Visit [facility] [address] [facility] [address] [place] [address] Aleida Valle MD [address] [facility] [address] [place] [address] documented as of this encounter Visit Diagnoses Not on filedocumented in this encounter Additional Health Concerns Assessment Noted Time A fall risk assessment has been complete d for the patient 06/23/2023 1:14 PM EDT documented as of this encounter Care Teams Wrapper Stemmer Hand Relationship Specialty Start Date End Date Al Martinez DO [address] [place] [address] PCP - General Internal Medicine 07/01/23 Camryn Davies, ROHINI Jewelry ManagerFreight Inspector 11/15/23 11/15/23 documented as of this encounter
--- NOTE | 2024-08-17 12:45 | CT_ITS ---
The [address] [address] Patient Name: SHAHID SANCHEZ MRN: [id number] date: 1940 Sex: M Assigned Patient Location: CT Current Patient Location: CT Accession/Order Number: [id number] Exam Date: 08/17/2024 14:11 Report Date: 08/17/2024 14:20 At the request of: HELEN CASAS DO Procedure: CT chest high res HIGH RESOLUTION CT CHEST WITHOUT CONTRAST CLINICAL DATA: Suspected failure on recent chest x-ray COMPARISON: Chest x-ray 08/01/2024 Spiral axial unenhanced images were obtained through the chest. Images were reconstructed at 1 mm sections at 10 mm increments. High-resolution imaging was also performed in the prone position. Images were evaluated using both narrow and wide window settings. This CT exam was performed using one or more following dose reduction techniques: Automated exposure control, adjustment of the mA and/or kV according to patient size, or use of iterative reconstruction technique. The heart is borderline prominent. There is no pericardial effusion. Coronary artery disease is seen. There is an aortic valve. There is no aortic aneurysm. There is plaque at the aortic arch, descending aorta and proximal great vessels. There is asymmetric enlargement of the left thyroid lobe where there may be a hypodense nodule. A left-sided pacemaker is identified. There are small scattered mediastinal lymph nodes. There is slight thoracolumbar dextroscoliotic curvature as well as moderate endplate spurring at the spine. There are small to moderate size layering pleural effusions. There is obstructive lung disease with airspace lucencies. There is interstitial thickening, greater at the lower lungs. There may be some scarring or atelectasis. There is no focal consolidation or pneumothorax. Limited imaging through the upper abdomen shows adrenal limb thickening on the left and nodularity on the right. There is a small amount of perihepatic fluid. CT/CT chest high res IMPRESSION: BORDERLINE CARDIOMEGALY WITH INTERSTITIAL CHANGES AND SMALL EFFUSIONS. FAILURE IS POSSIBLE. OBSTRUCTIVE LUNG DISEASE. Impression dictated by: Stella Kramer M.D. 08/17/2024 2:20 PM Dictation Location: [place] [address] Electronically authenticated by: [id number] Y Date: 08/17/2024 14:20
--- OUTSIDE RECORDS SUMMARY | 2024-08-17 12:45 | XMS_ITS | Encounter Summary ---
Author Organization [facility] Address [address] [place] [address] Phone Care Team Providers Care Cna Pct Name Role Phone Al Martinez DO Primary Care Provider [phone] Al Martinez DO Primary Care Provider +- [phone] Camryn Davies FORGING ENGINEER Unavailable Encounter Details Date Type Department Care Team (Late st Contact Info) Description 03/12/2023 Scanned Document [facility] [address] [place] [phone] Scanning, Generic Provider Social History Tobacco Use [...] suspected to have Coronavirus/COVID-19? No / Unsure 03/09/2023 6:57 AM EST documented as of this encounter Plan of Treatment Upcoming Encounters Date Type Department Care Team (Late st Contact Info) Description 11/10/2024 9:00 AM EDT Telemedicine Clinical Support [facility] [place] [address] [place] [phone] 04/12/2025 1:40 PM EST Office Visit [facility] [address] [facility] [address] [place] [address] Aleida Valle MD [address] [facility] [address] [place] [address] documented as of this encounter Procedures Procedure Name Priority Date/Time Associated Diagnosis Comments OUTSIDE IMAGING SCAN 03/12/2023 documented in this encounter Results * OUTSIDE IMAGING SCAN (03/12/2023) Anatomical Region Laterality Modality Other Narrative 03/12/2023 Ordered by an unspecified provider. us Generic Provider Scanning OUTSIDE SCAN Final Result documented in this encounter Visit Diagnoses Not on filedocumented in this encounter Additional Health Concerns Assessment Noted Time A fall risk assessment has been complete d for the patient 02/23/2023 1:21 PM EST documented as of this encounter Care Teams Cna Pct Relationship Specialty Start Date End Date Al Martinez DO PCP - General Internal Medicine 02/05/23 06/30/23 Al Martinez DO [facility] [place] [address] PCP - General Internal Medicine 07/01/23 Camryn Davies, FORGING ENGINEER Biometrics AnalystTrain Gate Attendant 11/15/23 11/15/23 documented as of this encounter
--- OUTSIDE RECORDS SUMMARY | 2024-08-17 12:45 | XMS_ITS | Clinical Summary ---
Author Organization [facility] Address [address] [place] [address] Care Team Providers Care Armature Balancer Name Role Phone lA Martinez MD Primary Care Provider + [phone] Luis Dewey Leslie DO Unavailable [phone] Allergies No known active allergies Medications Eliquis 5 MG tablet Take 5 mg by mouth in the morning and 5 mg before bedtime. Active dutasteride (Avodart) 0.5 MG capsule 1 capsule 1 (one) time each day at the same time Active Bydureon BCise 2 MG/0.85ML pen inject 2 milligrams subcutaneously every week in ABDOMEN,THIGH,OR.. . (REFER TO PRESCRIPTION NOTES). 3 Active Folic Acid 20 MG capsule Daily 3 Active furosemide (Lasix) 40 MG tablet Take 40 mg by mouth in the morning. 4 Active inFLIXimab (Remicade) 100 MG injection Infuse 600 mg into a venous catheter in the morning. Active levothyroxine (Synthroid, Levoxyl) 50 MCG tablet Take 50 mcg by mouth in the morning. 3 Active metFORMIN (Glucophage) 850 MG tablet Take 50 mg by mouth in the morning. 3 Active methotrexate 2.5 MG tablet take 6 tablets by mouth every week 3 Active Entresto 24-26 MG tablet Take 1 tablet by mouth in the morning and 1 tablet in the evening. 3 Active tamsulosin (Flomax) 0.4 MG 24 hr capsule Take 0.4 mg by mouth at bedtime 3 Active rosuvastatin (Crestor) 10 MG tablet Take 10 mg by mouth in the morning. 3 Active pioglitazone (Actos) 15 MG tablet 1 (one) time each day at the same time Active montelukast (Singulair) 10 MG tablet Take 10 mg by mouth Daily Active bumetanide (Bumex) 1 MG tablet Take 1 mg by mouth Daily Active colesevelam (Welchol) 625 MG tablet Take 1,250 mg by mouth 2 (two) times a day as needed 4 Active famotidine (Pepcid) 40 MG tablet TAKE 1 TABLET BY MOUTH AT BEDTIME EVERY DAY 4 Active Kerendia 20 MG tablet Take 20 mg by mouth Daily 4 Active metoprolol succinate XL (Toprol-XL) 25 MG 24 hr tablet Take 25 mg by mouth in the morning. 4 025 Active pantoprazole (ProtoNix) 40 MG EC tablet TAKE 1 TABLET BY MOUTH IN THE MORNING 30 MINUTES BEFORE MEALS Active Ozempic, 2 MG/DOSE, 8 MG/3ML solution pen-injector INJECT 2 (TWO) mg SUBCUTANEOUSLY (UNDER THE SKIN) EVERY WEEK 4 Active Verquvo 10 MG tablet Take 1 tablet by mouth Daily Active ProFe 391.3 (180 Fe) MG capsule TAKE 1 CAPSULE BY MOUTH WITH dinner 5 Active Resolved Problems Problem Noted Date Diagnosed Date Resolved Date Former smoker 01/25/2024 04/11/2024 Other specified anemias 11/04/202303/29 History of transcatheter aor tic valve replacement (TAVR) 10/13/2023 04/11/2024 Nonrheumatic aortic valve stenosis 10/13/2023 04/11/2024 Single vessel coronary artery disease 10/13/2023 04/11/2024 Benign neoplasm of descending colon 08/09/2023 08/09/2023 BMI 29.0-29.9,adult 08/09/2023 08/09/19 Heart block, AV 08/09/2023 08/09/2023 Heart disease, hypertensive 08/09/2023 08/09/2023 A-fib 08/09/2023 08/09/2023 BMI 32.0-32.9,adult 06/23/2023 08/09/19 24 Pulmonary hypertension 06/23/202308/08 Adenocarcinoma of colon 02/23/202307/27 Benign neoplasm of descending colon 02/23/2023 08/09/2023 Benign neoplasm of transverse colon 02/23/2023 08/09/2023 Bradycardia 02/23/2023 08/09/2023 Diabetes mellitus 02/23/2023 08/09/2023 Heart failure 02/23/2023 08/09/2023 HTN (hypertension) 02/23/2023 Hypercholesteremia 02/23/2023 Hypothyroidism 02/23/2023 08/09/2023 Immunosuppression 02/23/2023 08/09/2023 Kidney disease 02/23/2023 08/09/2023 FPC current use of ant icoagulant therapy 02/23/2023 08/09/2023 Persistent atrial fibrillation (HCC) 02/23/2023 08/09/2023 Personal history of colon cancer, stage II 02/23/2023 08/09/2023 Positive colorectal cancer s creening using Cologuard test 02/23/2023 08/09/2023 Rheumatoid arthritis 02/23/2023 024 Shortness of breath 02/23/2023 08/09/19 24 Sleep apnea 02/23/2023 08/09/2023 Vitamin D deficiency 02/23/2023 024 Chronic systolic heart failure 02/23/2023 04/11/2024 Abnormal ECG 01/21/2017 08/09/2023 Encounters Date Type Department Care Team Description 08/16/2024 Telephone [facility] [place] [address] [place] [address] Dewey Smith, Appointment (ENT F/U) 08/16/2024 Abstract [facility] [place] [address] [place] [phone] Dewey Smith DO 06/20/2024 2:45 PM EDT Office Visit [facility] [address] [place] [address] Dewey Smith, Chronic anticoagulation (Primary Dx); Nasal septal deviation; Recurrent epistaxis; Chronic rhinitis; Dysphonia 06/20/2024 Bamboo flowsheet [facility] [place] [address] [place] [address] Dewey Smith DO 06/20/2024 Travel 05/30/2024 2:45 PM EST Office Visit [facility] [place] [address] [place] [address] Dewey Smith, Nasal septal deviation (Primary Dx); Chronic anticoagulation; Recurrent epistaxis 05/30/2024 Bamboo flowsheet [facility] [place] [address] [place] [address] Dewey Smith DO 05/30/2024 Travel from Last 3 Months Immunizations Immunization Administration Dates Next Due DTP 10/25/2020 Novel [id number], preservative-free 03/25 Td (adult), 5 Lf tetanus tox oid, preservative free, adsorbed 02/05/2017 Tdap 02/05/2017 Social History Tobacco Use Types Packs/Day Years Used Date Smoking Tobacco: Former Cigarettes Q uit: 1980 Smokeless Tobacco: Never Tobacco Cessation:Counseling Given: Not Answered Alcohol Use Standard Drinks/Week Comments Not Currently 0 (1 standard drink = 0.6 oz pur e alcohol) Sex and Gender Information Value Date Recorded Sex Assigned at Not on file Legal Sex Male 7:35 PM EDT Gender Identity Not on file Sexual Orientation Not on file Last Filed Vital Signs Vital Sign Reading Time Taken Comments Blood Pressure 128/76 05/16/2018 12:00 PM EST Pulse - - Temperature - - Respiratory Rate - - Oxygen Saturation - - Inhaled Oxygen Concentration - - Weight 102 kg (225 lb) 06/20/2024 2:48 PM EDT Height 182.9 cm (6') 06/20/2024 2:48 PM EDT Body Mass Index 30.52 06/20/2024 2:48 PM EDT Plan of Treatment Health Maintenance Due Date Last Done Comments Pneumococcal Vaccine: 65+ Years (1 of - PCV) 992 Influenza Vaccine (Season Ended) 2024 Insurance MEDICARE [facility] Care Teams Armature Balancer Relationship Specialty Start Date End Date Al Martinez MD [facility] [place] [address] PCP - General Internal Medicine 07/24/23 Dewey Smith DO [address] [place] [address] Otolaryngology 08/24/23
--- OUTSIDE RECORDS SUMMARY | 2024-08-17 12:45 | XMS_ITS | Encounter Summary ---
Author Organization [facility] Address [address] [place] [address] Phone Care Team Providers Care Record Clerk Salesperson Name Role Phone Al Martinez DO Primary Care Provider [phone] Al Martinez DO Primary Care Provider [phone] [address] RAILWAY Unavailable Encounter Details Date Type Department Care Team (Late st Contact Info) Description 01/28/2023 Scanned Document [facility] [address] [place] [phone] Scanning, Generic Provider Social History Tobacco Use Types Packs/Day Years Used Date Smoking Tobacco: Never Assessed Sex and Gender Information Value Date Recorded Sex Assigned at Not on file Legal Sex Male 3:25 PM EST Gender Identity Not on file Sexual Orientation Not on file documented as of this encounter Plan of Treatment Upcoming Encounters Date Type Department Care Team (Late st Contact Info) Description 11/10/2024 9:00 AM EDT Telemedicine Clinical Support [facility] [place] [address] [facility] [address] [place] [address] 04/12/2025 1:40 PM EST Office Visit [facility] [address] [facility] [address] [place] [address] Aleida Valle MD [facility] [facility] [address] [place] [address] documented as of this encounter Visit Diagnoses Not on filedocumented in this encounter Care Teams Record Clerk Salesperson Relationship Specialty Start Date End Date Al Martinez DO PCP - General Internal Medicine 02/05/23 06/30/23 Al Martinez DO [facility] [place] [address] PCP - General Internal Medicine 07/01/23 Camryn Davies, ROHINI Plastic SewerExhaust And Muffler Repairer 11/15/23 11/15/23 documented as of this encounter
--- OUTSIDE RECORDS SUMMARY | 2024-08-17 12:45 | XMS_ITS | Encounter Summary ---
Author Organization [facility] Address [address] [place] [address] Phone Care Team Providers Care Service Specialist Name Role Phone Al Martinez DO Primary Care Provider [phone] Al Martinez DO Primary Care Provider [phone] Camryn Davies WATCHGUARD Unavailable Encounter Details Date Type Department Care Team (Late st Contact Info) Description 03/13/[address]23 [address]anned Document [facility] [address] [place] [phone] Scanning, Generic Provider Social History Tobacco Use [...] 11/10/2024 9:00 AM EDT Telemedicine Clinical Support [facility] [place] [address] [place] [phone] 04/12/2025 1:40 PM EST Office Visit [facility] [address] [facility] [address] [place] [address] Aleida Valle MD [address] [facility] [address] [place] [address] documented as of this encounter Procedures Procedure Name Priority Date/Time Associated Diagnosis Comments OUTSIDE IMAGING SCAN 03/13/2023 documented in this encounter Results * OUTSIDE IMAGING SCAN (03/13/2023) Anatomical Region Laterality Modality Other Narrative 03/13/2023 Ordered by an unspecified provider. us Generic Provider Scanning OUTSIDE SCAN Final Result documented in this encounter Visit Diagnoses Not on filedocumented in this encounter Additional Health Concerns Assessment Noted Time A fall risk assessment has been complete d for the patient 02/23/2023 1:21 PM EST documented as of this encounter Care Teams Service Specialist Relationship Specialty Start Date End Date Al Martinez DO PCP - General Internal Medicine 02/05/23 06/30/23 Al Martinez DO [facility] [place] [address] PCP - General Internal Medicine 07/01/23 Camryn Davies, WATCHGUARD Infrastructure DirectorField Producer 11/15/23 11/15/23 documented as of this encounter
--- OUTSIDE RECORDS SUMMARY | 2024-08-17 12:45 | XMS_ITS | Encounter Summary ---
Author Organization [facility] Address [address] [place] [address] Phone Care Team Providers Care Rn Quality Name Role Phone RosalbaAl reilly Primary Care Provider Camryn Davies FINE WIRE DRAWER Unavailable Encounter Details Date Type Department Care Team (Late st Contact Info) Description 10/20/2023 Scanned Document [facility] [address] [place] [phone] Scanning, Generic Provider Social History Tobacco Use [...] 11/10/2024 9:00 AM EDT Telemedicine Clinical Support [facility] [place] [address] [place] [address] 04/12/2025 1:40 PM EST Office Visit [facility] [address] [facility] [address] [place] [phone] Aleida Valle MD [address] [facility] [address] [place] [address] documented as of this encounter Visit Diagnoses Not on filedocumented in this encounter Additional Health Concerns Assessment Noted Time A fall risk assessment has been complete d for the patient 10/13/2023 4:04 PM EDT documented as of this encounter Care Teams Rn Quality Relationship Specialty Start Date End Date Al Martinez DO [address] [place] [address] PCP - General Internal Medicine 07/01/23 Camryn Davies, ROHINI Help Desk AgentBacon Stringer 11/15/23 11/15/23 documented as of this encounter
--- OUTSIDE RECORDS SUMMARY | 2024-08-17 12:45 | XMS_ITS | Clinical Summary ---
Author Organization [employer] [facility] Address [id number] [address] [place] [address] Care Team Providers Care Principal Law Clerk Name Role Phone Unavailable Primary Care Provider Unavailabl e Social History Tobacco Use Types Packs/Day Years Used Date Smoking Tobacco: Never Assessed Childcare Answer Date Recorded Childcare Unknown 05/28/2020 Employment Answer Date Recorded Employment Unknown 05/28/2020 Purpose - Life Answer Date Recorded Purpose and direction in life Unknown Sex and Gender Information Value Date Recorded Sex Assigned at Not on file Legal Sex Male 11:40 AM EDT Gender Identity Not on file Sexual Orientation Not on file Plan of Treatment Health Maintenance Due Date Last Done Comments Depression Screening 1952 Tobacco Screening 1952 DTaP,Tdap and Td Vaccines (1 - Tdap) 1960 Zoster (Shingles) Vaccine (1 of 2) 10/08/1991 Fall Risk Screening 2006 Influenza Vaccine 11/27/2024 Medical Devices Not on file Insurance MEDICARE [facility]
--- OUTSIDE RECORDS SUMMARY | 2024-08-17 12:45 | XMS_ITS | Encounter Summary ---
Author Organization [facility] Address [address] [place] [address] Care Team Providers Care Environmental Advisor Name Role Phone Al Martinez MD Primary Care Provider + [phone] Dewey Smith DO Unavailable [phone] Reason for Visit * Reason Onset Date Comments Appointment 08/16/2024 ENT F/U Encounter Details Date Type Department Care Team ([facility] Contact Info) Description 08/16/2024 Telephone [facility] [address] [place] [phone] Dewey Smith DO [address] [place] [address] Appointment (ENT F/U) Social History Tobacco Use Types Packs/Day Years [...] on file documented as of this encounter Miscellaneous Notes * Telephone Encounter - Amanda Schilling - 08/16/2024 2:[address] Smith if PT calls in it is ok to schedule him. documented in this encounter Plan of Treatment Not on file documented as of this encounter Visit Diagnoses Not on filedocumented in this encounter Care Teams Environmental Advisor Relationship Specialty Start Date End Date Al Martinez MD [facility] [place] [address] PCP - General Internal Medicine 07/24/23 Dewey Smith DO [address] [address] Otolaryngology 08/24/23 documented as of this encounter
== END 2024-08-17 12:43 | disposition home or self-care (01) ==
LOC: CT 12:42
PROVIDERS: PCP Internal Medicine; Visit Provider Internal Medicine
DX: R93.89 Abnormal findings on diagnostic imaging of other specified body structures (principal); M06.9 Rheumatoid arthritis, unspecified; J44.9 Chronic obstructive pulmonary disease, unspecified
CPT/HCPCS: 71250

== ENCOUNTER 2024-08-28 09:50 | Outpatient (OUT) | payer MEDICARE, SELFPAY ==
--- OUTSIDE RECORDS SUMMARY | 2020-07-02 16:20 | XMS_ITS | Continuity of Care Document ---
Author Name [facility] Organization [facility] Care Team Providers Care Resident Program Specialist Name Role Phone [facility] Unavailable Unavailable Problems Combined list of problems from Department of [facility] and [facility] Affairs facilities. It does not include entries that were removed or entered in error. Problem Status Onset Date Problem Type Date of Resolution Comments Source Diabetes mellitus Active Condition [facility] Rheumatoid arthritis Active Condition [facility] Medications Combined list of outpatient medications from Department of [facility] and [facility] facilities.Medications provided include 1) outpatient medications from the last 15 months, and 2) patient-reported medications. Medication Details Route Status Patient Instructions Prescription Expires Prescription Number Last Dispense Date Ordering Provider Order Date Order Qty Source CHOLECALCIF VINH TAB TAKE BY MOUTH EVERY DAY ORAL ACTIVE HARRY VEL[facility]QUEZ [facility] FOLIC ACID TAB TAKE BY MOUTH EVERY DAY ORAL ACTIVE HARRY VELAZQUEZ 2020 [facility] INFLIXIMAB INJ,LYPHL INJECT IV PIGGYBAC K INTRAV ENOUS ACTIVE HARRY VELAZQUEZ 2020 [facility] METFORMIN TAB,ORAL TAKE BY MOUTH TWICE A DAY WITH MEALS LUDIN ACTIVE HARRY VELAZQUEZ 2020 [facility] METHOTREXAT E TAB TAKE BY MOUTH EVERY WEEK ORAL ACTIVE HARRY VELAZQUEZ 2020 [facility] OLMESARTAN MEDOXOMIL TAB TAKE BY MOUTH EVERY DAY ORAL ACTIVE HARRY VELAZQUEZ 2020 [facility] ROSUVASTATI N CALCIUM TAB TAKE BY MOUTH AT BEDTIME HARRY MOON 2020 [facility] SEMAGLUTIDE PEN INJ,SOLN INJECT SUBCUTAN EOUSLY EVERY WEEK SUBCUT ANEOUS ACTIVE HARRY VELAZQUEZ 2020 [facility] ZINC SUPPLEMENT CAP/ TAB TAKE BY MOUTH EVERY DAY ORAL ACTIVE HARRY VELAZQUEZ 2020 [facility] Immunizations Combined list of available immunizations from the Department of Defense and Veterans Affairs facilities. Immunization Series Date Given Administered By Site Reaction Lot Number CVX Code Drug Watch Dial Stoner Status Comments Source INFLUENZA (HISTORICAL) [address] Michelle [facility]AGA [facility] Social History Combined list of available smoking, tobacco, and other social history from Department of Defense and Veterans Affairs facilities. Social History Type Response Date Comment Sour e Tobacco smoking status NHIS VA-TOBACCO FORMER USER 06/21/2018 [facility] History of tobacco use [place]-TOBACCO QUIT 1 5 YRS OR MORE 06/21/2018 [facility] GRANDA
--- OUTSIDE RECORDS SUMMARY | 2024-08-15 07:28 | XMS_ITS ---
Author Organization [facility] [place] Address [address] [place] [address] Care Team Providers Care Hand Blocker Name Role Phone Al Martinez DO Primary Care Provider Ranjeet Carolyn Delonghan Unavailable [phone] REASON FOR VISIT 6MW Results Encounters Encounter Location Date Provider Diagnosis Pulmonary Medicine [place] [address] [place] [address] 08/15/2024 Kelvin Steiner Plan Of Treatment Next Appt Details Provider Name:Kelvin Steiner, 09/11/2024 02:30:00 PM, [address] [place], [address], Progress Notes * Bruno JAY FDOB:1940 (83 yo M)Acc No.[id number]:08/15/2024 Patient: Bruno PALACIOS :1940 A ge:83 Y S ex:Male Address:[facility] [address], [place], [address] * true * Date: Generated for Printi ng/Faxing/eTransmitting on: 0 08/28/2024 09:54 AM EDT
--- OUTSIDE RECORDS SUMMARY | 2024-08-15 12:49 | XMS_ITS ---
Author Organization [facility] in [place] Address [address] [place] [address] Care Team Providers Care Iuss Analyst Name Role Phone Al Martinez DO Primary Care Provider Ranjeet Kelvin Delong Unavailable [phone] REASON FOR VISIT Pulm Rehab Order Encounters Encounter Location Date Provider Diagnosis Pulmonary Medicine [place] [address] [place] [address] 08/15/2024 Kelvin Steiner Plan Of Treatment Next Appt Details Provider Name:Kelvin Steiner, 09/11/2024 02:30:00 PM, [address] [place], [address], Progress Notes * Bruno JAY FDOB:1940 (83 yo M)Acc No.[id number]:08/15/2024 Patient: Bruno PALACIOS :1940 A ge:83 Y S ex:Male Address:[facility] [address], [place], [address] * true * Date: Generated for Printi ng/Faxing/eTransmitting on: 0 08/28/2024 09:54 AM EDT
--- OUTSIDE RECORDS SUMMARY | 2024-08-17 10:13 | XMS_ITS ---
Author Organization [facility] in [place] Address [address] [place] [address] Care Team Providers Care Iron Carrier Name Role Phone Al Martinez DO Primary Care Provider Ranjeet mosley KahlilKelvin cardona Unavailable [phone] REASON FOR VISIT Appointment Encounters Encounter Location Date Provider Diagnosis Pulmonary Medicine [place] [address] [place] [address] 08/17/2024 Kelvin Steiner Plan Of Treatment Next Appt Details Provider Name:Kelvin Steiner, 09/11/2024 02:30:00 PM, [address] [place], [address], Progress Notes * Bruno JAY FDOB:1940 (83 yo M)Acc No.[id number]:08/17/2024 Patient: Bruno PALACIOS :1940 A ge:83 Y S ex:Male Address:[facility], [address] * true * Date: Generated for Printi ng/Faxing/eTransmitting on: 0 08/28/2024 09:53 AM EDT
--- OUTSIDE RECORDS SUMMARY | 2024-08-28 09:53 | XMS_ITS | Clinical Summary ---
Author Organization [facility] Address [address] [place] [address] Phone Care Team Providers Care Surfboard Maker Name Role Phone RosalbaAl reilly Primary Care Provider [phone] Allergies No known active allergies Medications Bydureon BCise 2 mg/0.85 mL auto-injector Inject 2 mg under the skin 1 (one) time per week in the medical language specialist.. 3 Active oxyCODONE-acetami nophen (Percocet) 5-325 mg [...] mg) by mouth 4 times a week. [facility] tablet 1 4 Active pantoprazole (ProtoNix) [...] Sleep apnea 02/23/2023 Vitamin D deficiency 02/23/2023 skilled nursing current use of 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 therapy 1 04/25/2022 [...] Department Care Team Description 08/14/2024 Scanned Document [facility] [address] [place] [address] Scanning, Generic Provider 07/12/2024 3:30 PM EDT Office Visit [facility] [address] [address] Aleida Valle MD Chronic systolic heart failure (Primary Dx); Single vessel coronary artery disease; Severe aortic stenosis; Pulmonary hypertension (Multi); Persistent atrial fibrillation (Multi); Nonrheumatic aortic valve stenosis; Hypercholesteremia; Primary hypertension; History of transcatheter aortic valve replacement (TAVR); Bradycardia; Abnormal ECG; skilled nursing current use of 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 therapy; Shortness of breath; Former smoker; BMI 28.0-28.9,adult 07/12/2024 Travel 07/07/2024 Orders Only [facility] [address] [employer] [place] [address] Scanning, Generic Provider 06/08/2024 Scanned Document [facility] [address] [employer] [place] [address] Scanning, Generic Provider from Last 3 Months Immunizations Immunization Administration Dates Next Due DTP 10/25/2020 Novel [id number], preservative-free 03/25 Pfizer COVID-19 vaccine, biv alent, [...] any time in the past 12 m [facility], were you homeless or living in a care home (including now)? No 11/01/2023 Sex and Gender [...] 11/10/2024 9:00 AM EDT Telemedicine Clinical Support [facility] [address] [place] [address] 04/12/2025 1:40 PM EST Office Visit [facility] [address] [facility] [address] [place] [address] Aleida Valle MD [address] [place] [address] Health Maintenance Due Date Last Done Comments [...] this topic Medical Devices Implanted Type Area Racecar Driver Device Identifier Shelf Expiration Date Model / Serial / Lot Base Plate Base Plate Bilatera l: Knee Cardiac Pacemaker Cardiac Pacemaker Chest Valve, Aortic, 34mm, Evolut Fx Transcatheter - [id number] - [id number] Implanted:Qty: 1 on 11/12/2023 by Milton Camejo MD at [facility] Heart Valve Repair N/A: Heart [employer] 08/19/2025 EVFXPLUS- 34 / [id number] / [id number] Procedures Procedure Name Priority Date/Time Associated Diagnosis [...] fibrillation with controlled rate probable old inferior [place] us Aleida Valle MD ECG ORDERABLES Final Resu lt [facility] * Outside Device Check - Onbase Scan (07/07/2024) Narrative 07/07/2024 Ordered by an unspecified provider. us Generic Provider Scanning [facility] [place] OCEDURES Final Result * TRANSTHORACIC ECHO (TTE) [...] Narrative SYNGO - 01/17/2024 3:44 PM EDT [address], [address], [place] [address] TRANSTHORACIC ECHOCARDIOGRAM REPORT Patient Name: SHAHID JAY Chastity Physician: [id number] Aleida Valle MD Study Date: 01/12/2024 Ordering Provider: [id number] MOLINA MRN/PID: [id number] Fellow: Nurse: Date of /Age: 7 1940 / 83 years Installation Drafter: Wen Ron RDCS, RDMS, RVT Gender: M Additional Staff: Height: 180.34 cm Admit Date: Weight: 90.27 kg Admission Status: Outpatient BSA / BMI: 2.10 m2 / 27.76 Department Location: [facility] kg/m2 [place] Blood Pressure: 134 /62 mmHg Study Type: TRANSTHORACIC ECHO (TTE) COMPLETE Diagnosis/ICD: 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 Evolut FX #34, HX , AFib, CAD, CHF, HTN, DM, Pacemaker, Dilated CM, CPT Codes: Echo Complete w Full [id number] Study Detail: The following Echo studies were [...] 0.7 m/s (0.6-0.9m/s) PV Max P.2 mmHg [id number] Aleida Valle MD Electronically signed on 01/17/2024 at 3:44:31 PM Final Procedure Note Aleida Valle MD - 01/17/[address], [address], [place] [address] TRANSTHORACIC ECHOCARDIOGRAM REPORT Patient Name: SHAHID JAY Reading Physician: [id number] Krause Study Date: 01/12/2024 Ordering Provider: ANIGE MOLINA MRN/PID: [id number] Fellow: Nurse: Date of /Age: 7 1940 / 83 years Installation Drafter: Alcides COPPOLA, MACKENZIE,RVT Gender: M Additional Staff: Height: 180.34 cm Admit Date: Weight: 90.27 kg Admission Status: Outpatient BSA / BMI: 2.10 m2 / 27.76 Department Location: [facility] kg/m2 [place] Blood Pressure: 134 /62 mmHg Study Type: TRANSTHORACIC ECHO (TTE) COMPLETE Diagnosis/ICD: 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 Evolut FX #34, HX , AFib, CAD, CHF, HTN,DM, Pacemaker, Dilated CM, CPT Codes: Echo Complete w Full [id number] Study Detail: The following Echo studies were [...] 0.7 m/s (0.6-0.9m/s) PV Max P.2 mmHg [id number] Aleida Valle MD Electronically signed on 01/17/2024 at 3:44:31 PM Final us Andrasanto Molina RESEARCH AND DEVELOPMENT DIRECTOR-KNITTING MACHINE FIXER HEAD CV ECHO PROCEDURES F inal Result SYNGO * (ABNORMAL) Comprehensive metabolic panel (11/13/2023 10:35 AM EDT) [facility] Glucose 250(H) 74 - 99 mg/dL LAB CHEMISTRY METHOD 11/13/2023 12:22 PM EDT [facility] Sodium 137 136 - 145 mmol/L LAB CHEMISTRY METHOD 11/13/2023 12:22 PM EDT [facility] Potassium 3.9 3.5 - 5.3 mmol/L LAB CHEMISTRY METHOD 11/13/2023 12:22 PM EDT [facility] Chloride 101 98 - 107 mmol/L LAB CHEMISTRY METHOD 11/13/2023 12:22 PM EDT [facility] Bicarbonate 23 21 - 32 mmol/L LAB CHEMISTRY METHOD 11/13/2023 12:22 PM EDT [facility] Anion Gap 17 10 - 20 mmol/L LAB CHEMISTRY METHOD 11/13/2023 12:22 PM EDT [facility] Urea Nitrogen 29(H) 6 - 23 mg/dL LAB CHEMISTRY METHOD [facility] Creatinine 1.51(H) 0.50 - 1.30 mg/dL LAB CHEMISTRY METHOD 11/13[facility]2023 [facility] eGFR 46(L) >60 mL/min/1. 73m*2 LAB CHEMISTRY METHOD 11/13/2023 12:22 PM [facility] Comment: Calculations of estimated GFR are performed using the 2020 CKD-EPI Study Refit equation without the race variable for the IDMS-Traceable creatinine methods. https://jasn.asnjournals.org/content///ASN.7545759720 Calcium 8.9 8.6 - 10.6 mg/dL LAB CHEMISTRY METHOD 11/13/2023 12:22 PM [facility] Albumin 3.4 3.4 - 5.0 g/dL LAB CHEMISTRY METHOD 11/13/2023 12:22 PM EDT [facility] Alkaline Phosphatase 60 33 - 136 U/L LAB CHEMISTRY METHOD 11/13/2023 12:22 PM [facility] Total Protein 6.5 6.4 - 8.2 g/dL LAB CHEMISTRY METHOD 11/13/2023 12:[facility] AST 20 9 - 39 U/L LAB CHEMISTRY METHOD 11/13/2023 12:[facility] Bilirubin, Total 0.8 0.0 - 1.2 mg/dL LAB CHEMISTRY METHOD 11/13/2023 12:22 PM EDT [facility] ALT 13 10 - 52 U/L LAB CHEMISTRY METHOD 11/13/2023 12:22 PM EDT [facility] Comment:Patients treated wit h Sulfasalazine may generate falsely decreased results for ALT. Blood Venous blood specimen / Unknown Venipuncture / Unknown 11/13/2023 10:35 AM EDT 11/13/2023 10:41 AM EDT us Caron León MD LAB BLOOD ORDERABLES Final Res ult Performing Organization Address [facility] de Phone Number [facility] [address] [place], [place] [id number] * (ABNORMAL) TSH with reflex to Free T4 if abnormal (11/01/2023 6:18 PM EDT) Thyroid Stimulating Hormone 8.94(H) 0.44 - 3.98 mIU/L LAB IMMUNOASSAY METHOD 11/01/2023 8:18 PM EDT [facility] Blood Venous blood specimen / Unknown Venipuncture / Unknown 11/01/2023 6:18 PM EDT 11/01/2023 6:52 PM EDT Narrative [facility] - 11/01/2023 8:18 PM EDT TSH testing is performed using different testing methodology at [facility] than at other [facility] surgeons hospital. Direct result comparisons should only be made within the same method. us Micah Mccallum RESEARCH AND DEVELOPMENT DIRECTOR-KNITTING MACHINE FIXER HEAD LAB BLOOD ORDERABLES Fin al Result Performing Organization Address [facility] de Phone Number [facility] [address] [place] [address] * (ABNORMAL) Hemoglobin A1c (11/01/2023 6:18 PM EDT) Hemoglobin A1C 6.9(H) see below % 7:39 PM EDT [facility] Estimated Average Glucose 151 Not Established mg/dL 11/01/2023 7:39 PM EDT [facility] Blood Venous blood specimen / Unknown Venipuncture / Unknown 11/01/2023 6:18 PM EDT 11/01/2023 6:53 PM EDT Narrative [facility] - 11/01/2023 7:39 PM EDT Diagnosis of Diabetes-Adults Non-Diabetic: < or = 5.6% Increased risk for developing diabetes: 5.7-6.4% Diagnostic of diabetes: > or = 6.5% us Micah Montanez Xena RESEARCH AND DEVELOPMENT DIRECTOR-KNITTING MACHINE FIXER HEAD LAB BLOOD ORDERABLES Fin al Result [facility] [address] [facility] [address] [place] [id number] from Last 3 Months or Most Recently Relevant to Health Maintenance Insurance MEDICARE PART A AND B [facility] MEDICARE PART A AND B AARP Advance Directives For more information, please contact: [phone] (Available ) Documents on File Type Date Recorded Patient Printed Circuit Boards Contact Printer Expl anation Living Will 11/15/2023 * Full Code (Latest Code Status on File) Date Activated Date Inactivated Comments 11/01/2023 4:50 PM Question Answer Comments Plan of Care: Code Status Discussion Completed Decision Maker: Patient Healthcare Agents on File Name Relationship Healthcare Agent Relationship Communication Lilliana Bullard Daughter First Altern ate Health Care Agent [email or web address] Paddy Mann Daughter Second Alternate Health Care Agent Care Teams Surfboard Maker Relationship Specialty Start Date End Date Al Martinez DO [address] [place] [address] PCP - General Internal Medicine 07/01/23
--- OUTSIDE RECORDS SUMMARY | 2024-08-28 09:53 | XMS_ITS | Encounter Summary ---
Author Organization [facility] Address [address] [place] [address] Care Team Providers Care Line Service Technician Name Role Phone Al Martinez MD Primary Care Provider [phone] Dewey Smith DO Unavailable [phone] Encounter Details Date Type Department Care Team (Late st Contact Info) Description 08/16/2024 Abstract [facility] [address] [facility] [place] [phone] Dewey Smith DO [address] [place], [place] [phone] Social History Tobacco Use Types Packs/Day Years [...] on filedocumented in this encounter Care Teams Line Service Technician Relationship Specialty Start Date End Date Al Martinez MD [address] [place] [address] [place] [address] PCP - General Internal Medicine 07/24/23 Dewey Smith DO [address] [place] [address] Otolaryngology 08/24/23 documented as of this encounter
--- OUTSIDE RECORDS SUMMARY | 2024-08-28 09:54 | XMS_ITS | Clinical Summary ---
Author Organization [facility] Address [address] [place] [address] Care Team Providers Care Value Stream Manager Name Role Phone Michelle Newton DO, Charles [...] once daily. Active mirabegron (MYRBETRIQ) 50 mg [id number]: Abnormal ECG Take 50 mg by mouth [...] History Relation Comments Diabetes Father Heart Father CT Hyperlipidemia Father Hypertension Father Cancer Mother breast [...] N ot on file 03/05/2020 Data from: [email or web address] Last address used for calculation Not on [...] - 8.0 g/dL 03/15/2018 4:56 PM EST [facility] Albumin 3.9 3.9 - 4.9 g/dL 03/15/2018 4:56 PM EST [facility] Calcium 9.2 8.5 - 10.2 mg/dL 03/15/2018 4:56 PM EST [facility] Bilirubin, Total 0.5 0.2 - 1.3 mg/dL 03/15/2018 4:56 PM EST [facility] Alkaline Phosphatase 68 38 - 113 U/L 03/15/2018 4:56 PM EST [facility] AST 27 14 - 40 U/L 03/15/2018 4:56 PM EST [facility] Glucose 155(H) 74 - 99 mg/dL 03/15/2018 4:56 PM EST [facility] Comment: The [place] Diabetes Association (ADA) provides guidance for cutoff [...] Standards of Medical Care in Diabetes 2016, [place] Diabetes Association. Diabetes Care. 2016.39(Suppl 1). BUN 18 9 - 24 mg/dL 03/15/2018 4:56 PM [facility] Creatinine 1.31(H) 0.73 - 1.22 mg/dL 03/15/2018 4:56 PM [facility] Sodium 140 136 - 144 mmol/L 03/15/2018 4:56 PM [facility] Potassium 4.6 3.7 - 5.1 mmol/L 03/15/2018 4:56 PM [facility] Chloride 104 97 - 105 mmol/L 03/15/2018 4:56 PM [facility] CO2 24 22 - 30 mmol/L 03/15/2018 4:56 PM [facility] Anion Gap 12 9 - 18 mmol/L 03/15/2018 4:56 PM [facility] ALT 23 10 - 54 U/L 03/15/2018 4:56 PM [facility] eGFR- >60 03/15/2018 4:56 PM [facility] eGFR-All Other Races 53 . 03/15/2018 4:56 PM [facility] Comment: eGFR (Estimated GFR) Units [...] AM EST [facility] Final Result [facility] [address] [place] [address] from Last 3 Months or Most Recently Relevant to Health Maintenance Insurance MEDICARE Member Subscriber Plan / Payer (Ef fective 2006-Present) Name:Bruno Jay Member ID:[id number] Relation to Subscriber:Self Name:Bruno Jay Subscriber ID:[id number] Payer ID:Not on file Group ID:Not on file Type:Medicare Address: [address] Care Teams Value Stream Manager Relationship Specialty Start Date End Date Al Martinez Jr., [facility] [place] [address] PCP - General 01/29/01 Referring, No(Hist) 03/17/18
--- OUTSIDE RECORDS SUMMARY | 2024-08-28 09:54 | XMS_ITS | Encounter Summary ---
Author Organization [facility] Address [address] [place] [address] Phone Care Team Providers Care Shingle Catcher Name Role Phone Al Martinez DO Primary Care Provider [phone] Al Martinez DO Primary Care Provider [phone] Camryn Davies CUSTOMER SUPPORT MANAGER Unavailable [phone] Encounter Details Date Type Department Care Team (Late st Contact Info) Description 03/12/2023 Scanned Document [facility] [address] [place] [phone] Scanning, Generic Provider Social History Tobacco Use [...] 11/10/2024 9:00 AM EDT Telemedicine Clinical Support [facility] [address] [place] [address] 04/12/2025 1:40 PM EST Office [facility] [address] [facility] [address] [place] [address] Aleida Valle MD [address] [facility] [address] [place] [address] documented as of this encounter [...] documented as of this encounter Care Teams Shingle Catcher Relationship Specialty Start Date End Date Al Martinez DO PCP - General Internal Medicine 02/05/23 06/30/23 Al Martinez DO [facility] [place] [address] PCP - General Internal Medicine 07/01/23 Camryn Davies, CUSTOMER SUPPORT MANAGER Relocation CoordinatorCalibration Checker 11/15/23 11/15/23 documented as of this encounter
--- OUTSIDE RECORDS SUMMARY | 2024-08-28 09:54 | XMS_ITS | Clinical Summary ---
Author Organization [facility] Address [id number] [address] [place] [address] Care Team Providers Care Fish Technologist Name Role Phone Unavailable Primary Care Provider [...] Medical Devices Not on file Insurance [facility]
--- OUTSIDE RECORDS SUMMARY | 2024-08-28 09:54 | XMS_ITS | Encounter Summary ---
Author Organization [facility] Address [address] [place] [address] Phone Care Team Providers Care Telecommunications Manager Name Role Phone RosalbaAl reilly Erich HDEZ Primary Care Provider Camryn Davies IN HOME SALES CONSULTANT Unavailable Encounter Details Date Type Department Care Team (Late st Contact Info) Description 09/14/2023 Scanned Document [facility] [address] [place] [phone] Scanning, Generic Provider Social History Tobacco Use [...] 11/10/2024 9:00 AM EDT [facility] [address] [place] [address] 04/12/2025 1:40 PM EST Office Visit [facility] [address] [place] [address] Aleida Valle MD [address] [place] [address] documented as of this encounter [...] documented as of this encounter Care Teams Telecommunications Manager Relationship Specialty Start Date End Date Al Martinez DO [address] [place] [address] PCP - General Internal Medicine 07/01/23 Camryn Davies, ROHINI Magistrate AssistantRetail Cashier Associate 11/15/23 11/15/23 documented as of this encounter
--- OUTSIDE RECORDS SUMMARY | 2024-08-28 09:54 | XMS_ITS | Encounter Summary ---
Author Organization [facility] Address [address] [place] [address] Phone Care Team Providers Care Staking Press Operator Name Role Phone RosalbaAl reilly Erich HDEZ Primary Care Provider Camryn Davies ENGRAVER COPPERPLATE Unavailable Encounter Details Date Type Department Care Team (Late st Contact Info) Description 09/09/2023 Scanned Document [facility] [address] [place] [address] Scanning, Generic Provider Social History Tobacco Use [...] Clinical Support [facility] [address] [place] [address] 04/12/2025 1:40 PM EST Office Visit [facility] [address] [place] [address] Aleida Valle MD [address] [facility] [address] [place] [address] documented as of this encounter Procedures Procedure Name Priority Date/Time Associated Diagnosis Comments OUTSIDE DEVICE CHECK - ONBASE SCAN 09/09/2023 OUTSIDE IMAGING SCAN 09/09/2023 documented in this encounter Results * Outside Device Check - Onbase Scan (09/09/2023) Narrative 09/09/2023 Ordered by an unspecified provider. us Generic Provider Scanning [facility] [place] OCEDURES Final Result * OUTSIDE IMAGING SCAN [...] documented as of this encounter Care Teams Staking Press Operator Relationship Specialty Start Date End Date Al Martinez DO [address] [place] [address] PCP - General Internal Medicine 07/01/23 Camryn Davies LPN Tester EquipmentJig And Fixture Maker 11/15/23 11/15/23 documented as of this encounter
--- OUTSIDE RECORDS SUMMARY | 2024-08-28 09:54 | XMS_ITS | Encounter Summary ---
Author Organization [facility] Address [address] [place] [address] Care Team Providers Care Brand Inspector Name Role Phone Al Martinez MD Primary Care Provider [phone] Dewey Smith DO Unavailable [phone] Reason for Visit * Reason Onset Date Comments Appointment 08/16/2024 ENT F/U Encounter Details Date Type Department Care Team ([facility] Contact Info) Description 08/16/2024 Telephone [facility] [address] [place] [phone] Dewey Smith DO [address] [place] [address] Appointment (ENT F/U) Social History Tobacco Use [...] on filedocumented in this encounter Care Teams Brand Inspector Relationship Specialty Start Date End Date Al Martinez MD [facility] [place] [address] PCP - General Internal Medicine 07/24/23 Dewey Smith DO [address] [place] [address] Otolaryngology 08/24/23 documented as of this encounter
--- OUTSIDE RECORDS SUMMARY | 2024-08-28 09:54 | XMS_ITS | Encounter Summary ---
Author Organization [facility] Address [address] [place] [address] Phone Care Team Providers Care Heel Cementer Name Role Phone Al Martinez DO Primary Care Provider [phone] Al Martinez DO Primary Care Provider [phone] Camryn Davies GAGE DESIGNER Unavailable Encounter Details Date Type Department Care Team (Late st Contact Info) Description 03/13/2023 Scanned Document [facility] [address] [place] [place] [phone] Scanning, Generic Provider Social History Tobacco Use [...] 11/10/2024 9:00 AM EDT Telemedicine Clinical Support [facility] [address] [place] [address] 04/12/2025 1:40 PM EST Office Visit [facility] [address] [facility] [address] [place] [address] Aleida Valle MD [address] [facility] [address] [place] [address] documented as of this encounter [...] documented as of this encounter Care Teams Heel Cementer Relationship Specialty Start Date End Date Al Martinez DO PCP - General Internal Medicine 02/05/23 06/30/23 Al Martinez DO [facility] [place] [address] PCP - General Internal Medicine 07/01/23 Camryn Davies, GAGE DESIGNER Sharepoint EngineerAudio Visual Technician 11/15/23 11/15/23 documented as of this encounter
--- OUTSIDE RECORDS SUMMARY | 2024-08-28 09:54 | XMS_ITS | Encounter Summary ---
Author Organization [facility] Address [address] [place] [address] Phone Care Team Providers Care Process Development Technician Name Role Phone RosalbaAl reilly Primary Care Provider Encounter Details Date Type Department Care Team (Late st Contact Info) Description 06/08/2024 Scanned Document [facility] [address] [place] [address] Scanning, Generic Provider Social History Tobacco Use [...] 11/10/2024 9:00 AM EDT Telemedicine Clinical Support [facility] [address] [facility] [address] [place] [address] 04/12/2025 1:40 PM EST Office Visit [facility] [address] [facility] [address] [place] [address] Aleida Valle MD [address] [facility] 2[address] [place] [address] documented as of this encounter Visit Diagnoses Not on filedocumented in this encounter Additional Health Concerns Assessment Noted Time A fall risk assessment has been complete d for the patient 01/25/2024 2:32 PM EDT documented as of this encounter Care Teams Process Development Technician Relationship Specialty [place] [address] [place] [address] PCP - General Internal Medicine 07/01/23 documented as of this encounter
--- OUTSIDE RECORDS SUMMARY | 2024-08-28 09:54 | XMS_ITS | Encounter Summary ---
Author Organization [facility] Address [address] [place] [address] Phone Care Team Providers Care Campus Safety Officer Name Role Phone RosalbaAl reilly Primary Care Provider Camryn Davies WASH DRILLER HELPER Unavailable [phone] Encounter Details Date Type Department Care Team (Late st Contact Info) Description 10/11/2023 Cardiology Conference [facility] [address] [place] [address] [place] [address] [place] [address] Social History Tobacco Use Types Packs/Day Years [...] 11/10/2024 9:00 AM EDT Telemedicine Clinical Support [facility] [place] [address] [place] [address] 04/12/2025 1:40 PM EST Office Visit [facility] 703 [facility] [address] [place] [address] Aleida Valle MD [facility]03 [facility] [address] [place] [address] documented as of this encounter Visit Diagnoses Not on filedocumented in this encounter Additional Health Concerns Assessment Noted Time A fall risk assessment has been complete d for the patient 06/23/2023 1:14 PM EDT documented as of this encounter Care Teams Campus Safety Officer Relationship Specialty Start Date End Date Al Martinez DO [address] [place] [address] PCP - General Internal Medicine 07/01/23 Camryn Davies, ROHINI Bridges SupervisorPharmacy Tech Customer Service 11/15/23 11/15/23 documented as of this encounter
--- OUTSIDE RECORDS SUMMARY | 2024-08-28 09:54 | XMS_ITS | Encounter Summary ---
Author Organization [facility] Address [address] [place] [address] Phone Care Team Providers Care Deburr Operator Name Role Phone Al Martinez DO Primary Care Provider [phone] Al Martinez DO Primary Care Provider [phone] Camryn Davies TRACTOR ENGINE ASSEMBLER Unavailable Encounter Details Date Type Department Care Team (Late st Contact Info) Description 01/28/2023 Scanned Document [facility] [address] [place] [phone] Scanning, Generic Provider Social History Tobacco Use [...] 9:00 AM EDT Telemedicine Clinical Support [facility] [place] [address] [facility] [address] [place] [address] 04/12/2025 1:40 PM EST Office Visit [facility] 703 [facility] [address] [place] [address] Aleida Valle MD [facility] [address] [place] [address] documented as of this encounter Visit Diagnoses Not on filedocumented in this encounter Care Teams Deburr Operator Relationship Specialty Start Date End Date Al Martinez DO PCP - General Internal Medicine 02/05/23 06/30/23 Al Martinez DO [facility] [place] [address] PCP - General Internal Medicine 07/01/23 Camryn Davies, ROHINI Percussion Welding Machine OperatorPipe Tester 11/15/23 11/15/23 documented as of this encounter
--- OUTSIDE RECORDS SUMMARY | 2024-08-28 09:54 | XMS_ITS | Encounter Summary ---
Author Organization [facility] Address [address] [place] [address] Phone Care Team Providers Care Coach Driver Name Role Phone RosalbaAl reilly Erich HDEZ Primary Care Provider Camryn Davies FAGOT HEATER Unavailable [phone] Encounter Details Date Type Department Care Team (Late st Contact Info) Description 09/13/2023 Scanned Document [facility] [address] [place] [phone] Scanning, Generic Provider Social History Tobacco Use [...] AM EDT Telemedicine Clinical Support [facility] [address] [place] [address] 04/12/2025 1:40 PM EST Office Visit [facility] [address] [place] [address] Aleida Valle MD [address] [place] [address] documented as of this encounter [...] documented as of this encounter Care Teams Coach Driver Relationship Specialty Start Date End Date Al Martinez DO [address] [place] [address] PCP - General Internal Medicine 07/01/23 Camryn Davies, FAGOT HEATER Strategic Partner Development ManagerGamma Facilities Operator 11/15/23 11/15/23 documented as of this encounter
--- OUTSIDE RECORDS SUMMARY | 2024-08-28 09:54 | XMS_ITS | Encounter Summary ---
Author Organization [facility] Address [address] [place] [address] Phone Care Team Providers Care Policy Change Clerk Name Role Phone RosalbaAl reilly Primary Care Provider Camryn Davies POLICE SERGEANT Unavailable Encounter Details Date Type Department Care Team (Late st Contact Info) Description 10/20/2023 Scanned Document [facility] [address] [place] [address] Scanning, Generic Provider Social History Tobacco Use [...] 11/10/2024 9:00 AM EDT Telemedicine Clinical Support [facility] [place] [address] [place] [address] 04/12/2025 1:40 PM EST Office Visit [facility] 703 [facility] [address] [place] [address] Aleida Valle MD 703 [facility] [address], [address] [place] [address] documented as of this encounter Visit Diagnoses Not on filedocumented in this encounter Additional Health Concerns Assessment Noted Time A fall risk assessment has been complete d for the patient 10/13/2023 4:04 PM EDT documented as of this encounter Care Teams Policy Change Clerk Relationship Specialty Start Date End Date Al Martinez DO [address] [place] [address] PCP - General Internal Medicine 07/01/23 Camryn Davies, ROHINI Warp PreparerMetalizing Machine Operator Automatic 11/15/23 11/15/23 documented as of this encounter
--- OUTSIDE RECORDS SUMMARY | 2024-08-28 09:54 | XMS_ITS | Encounter Summary ---
Author Organization [facility] Address [address] [place] [address] Phone Care Team Providers Care Manager Purchasing Name Role Phone RosalbaAl reilly Primary Care Provider Encounter Details Date Type Department Care Team (Late st Contact Info) Description 08/14/2024 Scanned Document [facility] [address] [place] [address] Scanning, Generic Provider Social History Tobacco Use [...] were you homeless or living in a alf (including now)? No 11/01/2023 Sex and Gender Information Value Date Recorded Sex Assigned at Not on file Legal Sex Male 3:25 PM EST Gender Identity Not on file Sexual Orientation Not on file documented as of this encounter Plan of Treatment Upcoming Encounters Date Type Department Care Team (Late st Contact Info) Description 11/10/2024 9:00 AM EDT Telemedicine Clinical Support [facility] [address] [facility] [address] [place] [address] 04/12/2025 1:40 PM EST Office Visit [facility] 703 [facility] [address] [place] [address] Aleida Valle MD 703 [facility], [address] [place] [address] documented as of this encounter Visit Diagnoses Not on filedocumented in this encounter Additional Health Concerns Assessment Noted Time A fall risk assessment has been complete d for the patient 07/12/2024 3:47 PM EDT documented as of this encounter Care Teams Manager Purchasing Relationship Specialty [place] [address] [place] [address] PCP - General Internal Medicine 07/01/23 documented as of this encounter
--- OUTSIDE RECORDS SUMMARY | 2024-08-28 09:54 | XMS_ITS | Clinical Summary ---
Author Organization [facility] Address [address] [place] [address] Care Team Providers Care Warp Changer Name Role Phone Al Martinez MD Primary Care Provider [phone] Luis Dewey Leslie DO Unavailable [phone] Allergies No known active allergies Medications Eliquis [...] Immunosuppression 02/23/2023 08/09/2023 Kidney disease 02/23/2023 08/09/2023 skilled nursing current use of ant icoagulant therapy 02/23/2023 [...] 08/16/2024 Telephone [facility] [address] [place] [address] Dewey Smith, Appointment (ENT F/U) 08/16/2024 Abstract [facility] [address] [place] [address] Dewey Smith DO 06/20/2024 2:45 PM EDT Office Visit [facility] [address] [place] [address] Dewey Smith, Chronic anticoagulation (Primary Dx); Nasal septal deviation; Recurrent epistaxis; Chronic rhinitis; Dysphonia 06/20/2024 Bamboo flowsheet [facility] [place] [address] [place] [address] Dewey Smith DO 06/20/2024 Travel 05/30/2024 2:45 PM EST Office Visit [facility] [place] [address] [place] [address] Dewey Smith, Nasal septal deviation (Primary Dx); Chronic anticoagulation; Recurrent epistaxis 05/30/2024 Bamboo flowsheet [facility] [place] [address] [place] [address] Dewey Smith DO 05/30/2024 Travel from Last 3 Months Immunizations Immunization Administration Dates Next Due DTP 10/25/2020 Novel [id number], preservative-free 03/25 Td (adult), 5 Lf tetanus [...] Influenza Vaccine (Season Ended) 2024 Insurance MEDICARE [facility] Care Teams Warp Changer Relationship Specialty Start Date End Date Al Martinez MD [facility] [place] [address] PCP - General Internal Medicine 07/24/23 Dewey Smith DO [address] [place] [address] Otolaryngology 08/24/23
--- OUTSIDE RECORDS SUMMARY | 2024-08-28 09:54 | XMS_ITS ---
Author Organization [facility] Address [address] [place] [address] Phone Care Team Providers Care Mid Teacher Name Role Phone Al Martinez Primary Care Provider [phone] Active Problems Problem Noted Date Diagnosed Date [...] Sleep apnea 02/23/2023 Vitamin D deficiency 02/23/2023 terminal operator current use of 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 therapy 1 04/25/2022 [...]
[2024-08-28 10:22] LABS: Basophils Percent Auto 0.5 % (0.2-2.0); Eosinophils Absolute Auto 0.2 10^3/uL (0.0-0.7); Eosinophils Percent Auto 2.4 % (0.9-7.0); Hematocrit 26.7 % (42.0-54.0); Hemoglobin 8.8 g/dL (14.0-18.0); Immature Granulocytes Abs Auto 0.03 10^3/uL (0.00-0.03); Immature Granulocytes Pct Auto 0.5 % (0.0-0.5); Lymphocytes Absolute Auto 0.8 10^3/uL (1.2-3.8); Lymphocytes Percent Auto 12.7 % (20.5-60.0); Mean Corpuscular Hemoglobin 31.8 pg (25.9-34.0); Mean Corpuscular Volume 96.4 fL (80.0-94.0); Mean Platelet Volume 10.2 fL (9.5-13.5); Monocytes Absolute Auto 0.5 10^3/uL (0.3-0.8); Monocytes Percent Auto 7.5 % (1.7-12.0); Neutrophils Absolute Auto 4.9 10^3/uL (1.4-6.5); Neutrophils Percent Auto 76.4 % (43.0-75.0); Platelet Count 177 10^3/uL (150-450); Red Blood Count 2.77 10^6/uL (4.70-6.10); Red Cell Distribution Width 16.1 % (11.0-15.0); White Blood Count 6.4 10^3/uL (4.0-11.0)
[2024-08-28 10:30] LABS: Estimated Average Glucose 160 mg/dL; Glycohemoglobin A1C 7.2 % (4.5-6.2)
[2024-08-28 10:40] LABS: Bilirubin Urine NEGATIVE (NEGATIVE); Blood Urine NEGATIVE (NEGATIVE); Clarity Urine CLEAR (CLEAR); Color Urine YELLOW (YELLOW); Glucose Urine UA NEGATIVE (NEGATIVE); Ketones Urine NEGATIVE (NEGATIVE); Leukocyte Esterase Urine NEGATIVE (NEGATIVE); Nitrite Urine NEGATIVE (NEGATIVE); Protein Urine 30 mg/dL (NEG/TRACE); Specific Gravity Urine 1.015 (1.005-1.025); Urobilinogen Urine 0.2 EU/dL (0.2-1.0)
[2024-08-28 10:47] LABS: Urine Microscopic Indicated NO
[2024-08-28 10:50] LABS: Alanine Aminotransferase 25 U/L (16-63); Albumin Level 3.4 g/dL (3.4-5.0); Alkaline Phosphatase 63 U/L (46-116); Anion Gap 13.7; Aspartate Amino Transferase 25 U/L (15-37); Bilirubin Direct 0.4 mg/dL (0.0-0.2); Bilirubin Total 1.1 mg/dL (0.2-1.0); Carbon Dioxide 29.1 mmol/L (21.0-32.0); Chloride 103 mmol/L (98-107); Estimated GFR (African America 42 (>=60 mL/min/1.73m^2); Estimated GFR (Non-African Ame 35 (>=60 mL/min/1.73m^2); Globulin 3.4 g/dL; Potassium 3.8 mmol/L (3.5-5.1); Sodium 142 mmol/L (136-145); Thyroid Stimulating Hormone 6.809 uIU/mL (0.358-3.740); Total Protein 6.8 g/dL (6.4-8.2)
== END 2024-08-28 09:51 | disposition home or self-care (01) ==
LOC: LAB 09:52
PROVIDERS: PCP Internal Medicine; Visit Provider Internal Medicine
DX: E03.9 Hypothyroidism, unspecified (principal); D50.9 Iron deficiency anemia, unspecified; I50.30 Unspecified diastolic (congestive) heart failure; E11.65 Type 2 diabetes mellitus with hyperglycemia; R33.9 Retention of urine, unspecified
CPT/HCPCS: 36415; 80051; 80076; 81003; 82565; 83036; 83880; 84443; 84520; 85025

== ENCOUNTER 2024-09-01 09:35 | Outpatient (OUT) | payer MEDICARE, SELFPAY ==
--- OUTSIDE RECORDS SUMMARY | 2020-07-02 16:20 | XMS_ITS | Continuity of Care Document ---
Author Name [facility] Organization [facility] Care Team Providers Care Engineer Intern Name Role Phone [facility] Unavailable Unavailable Problems Combined list of problems from Department of [facility] and [facility] Affairs facilities. It does not include entries that were removed or entered in error. Problem Status Onset Date Problem Type Date of Resolution Comments Source Diabetes mellitus Active Condition [facility] Rheumatoid arthritis Active Condition [facility] Medications Combined list of outpatient medications from Department of [facility] and [facility] facilities.Medications provided include 1) outpatient medications from the last 15 months, and 2) patient-reported medications. Medication Details Route Status Patient Instructions Prescription Expires Prescription Number Last Dispense Date Ordering Provider Order Date Order Qty Source CHOLECALCIF VINH TAB TAKE BY MOUTH EVERY DAY ORAL ACTIVE HARRY VELAZQUEZ 2020 [facility] TAB TAKE BY MOUTH EVERY DAY ORAL ACTIVE HARRY VELAZQUEZ 2020 [facility] INFLIXIMAB INJ,LYPHL INJECT IV PIGGYBAC K INTRAV ENOUS ACTIVE HARRY VELAZQUEZ 2020 [facility] METFORMIN TAB,ORAL TAKE BY MOUTH TWICE A DAY WITH MEALS LUDIN ACTIVE HARRY VELAZQUEZ 2020 [facility] METHOTREXAT E TAB TAKE BY MOUTH EVERY WEEK ORAL ACTIVE HARRY VELAZQUEZ 2020 [facility] OLMESARTAN MEDOXOMIL TAB TAKE BY MOUTH EVERY DAY ORAL ACTIVE HARRY VELAZQUEZ 2020 [facility] ROSUVASTATI N CALCIUM TAB TAKE BY MOUTH AT BEDTIME HARRY MOON 2020 [facility] SEMAGLUTIDE PEN INJ,SOLN INJECT SUBCUTAN EOUSLY EVERY WEEK SUBCUT ANEOUS ACTIVE HARRY VELAZQUEZ 2020 [facility] ZINC SUPPLEMENT CAP/ TAB TAKE BY MOUTH EVERY DAY ORAL ACTIVE HARRY VELAZQUEZ 2020 [facility] Immunizations Combined list of available immunizations from the Department of Defense and Veterans Affairs facilities. Immunization Series Date Given Administered By Site Reaction Lot Number CVX Code Drug Supervisor Fish [employer]cher[employer] Status Comments Source INFLUENZA (HISTORICAL) [address] Michelle [facility] Social History Combined list of available smoking, tobacco, and other social history from Department of Defense and Veterans Affairs facilities. Social History Type Response Date Comment Sour e Tobacco smoking status NHIS VA-TOBACCO FORMER USER 06/21/2018 ESTIVEN GRANDA History of tobacco use [place]-TOBACCO QUIT 1 5 YRS OR MORE 06/21/2018 ESTIVEN GRANDA
--- OUTSIDE RECORDS SUMMARY | 2024-08-15 07:28 | XMS_ITS ---
Author Organization [facility] in [place] Address [address] [place] [address] Care Team Providers Care Manager Information Name Role Phone Al Martinez DO Primary Care Provider Ranjeet Carolyn Delonghan Unavailable [phone] REASON FOR VISIT 6MW Results Encounters Encounter Location Date Provider Diagnosis Pulmonary Medicine [place] [address] [place] [address] 08/15/2024 Kelvin Steiner Plan Of Treatment Next Appt Details Provider Name:Kelvin Steiner, 09/11/2024 02:30:00 PM, [address] [place], [address], Progress Notes * Bruno JAY FDOB:1940 (83 yo M)Acc No.[id number]:08/15/2024 Patient: Bruno PALACIOS :1940 A ge:83 Y S ex:Male Address:[facility] [address], [place], [address] * true * Date: Generated for Printi ng/Faxing/eTransmitting on: 0 09/01/2024 09:38 AM EDT
--- OUTSIDE RECORDS SUMMARY | 2024-08-15 12:49 | XMS_ITS ---
Author Organization The [facility] in [place] Address [address] [place] [address] Care Team Providers Care Coal Wheeler Name Role Phone Al Martinez DO Primary Care Provider Ranjeet Kelvin Delong Unavailable [phone] REASON FOR VISIT Pulm Rehab Order Encounters Encounter Location Date Provider Diagnosis Pulmonary Medicine [place] [address] [place] [address] 08/15/2024 Kelvin Steiner Plan Of Treatment Next Appt Details Provider Name:Kelvin Steiner, 09/11/2024 02:30:00 PM, [address] [place], [address], Progress Notes * Bruno JAY FDOB:1940 (83 yo M)Acc No.[id number]:08/15/2024 Patient: Bruno PALACIOS :1940 A ge:83 Y S ex:Male Address:[facility] [address], [place], [address] * true * Date: Generated for Printi ng/Faxing/eTransmitting on: 0 09/01/2024 09:38 AM EDT
--- OUTSIDE RECORDS SUMMARY | 2024-08-17 10:13 | XMS_ITS ---
Author Organization [facility] in [place] Address [address] [place] [address] Care Team Providers Care Senior Manager Creative Services Name Role Phone Al Martinez DO Primary Care Provider Ranjeet mosley KahlilKelvin cardona Unavailable [phone] REASON FOR VISIT Appointment Encounters Encounter Location Date Provider Diagnosis Pulmonary Medicine [place] [address] [place] [address] 08/17/2024 Kelvin Steiner Plan Of Treatment Next Appt Details Provider Name:Kelvin Steiner, 09/11/2024 02:30:00 PM, [address] [place], [address], Progress Notes * Bruno JAY FDOB:1940 (83 yo M)Acc No.[id number]:08/17/2024 Patient: Bruno PALACIOS :1940 A ge:83 Y S ex:Male Address:[facility], [address] * true * Date: Generated for Printi ng/Faxing/eTransmitting on: 0 09/01/2024 09:38 AM EDT
--- OUTSIDE RECORDS SUMMARY | 2024-09-01 09:38 | XMS_ITS | Encounter Summary ---
Author Organization [facility] Address [address] [place] [address] Phone Care Team Providers Care Hr Business Partner Consultant Name Role Phone RosalbaAl reilly Primary Care Provider Camryn Davies WATER RESOURCE ENGINEER Unavailable Encounter Details Date Type Department Care Team (Late st Contact Info) Description 10/20/2023 Scanned Document [facility] [address] [place] [address] Scanning, Generic Provider Social History Tobacco Use [...] Care Team (Late st Contact Info) Description 11/08/2024 1:30 PM EDT Office Visit [facility] [address] [place] [address] [place] [address] [place] [address] 11/10/2024 9:00 AM EDT Telemedicine Clinical Support [facility] [place] [address] [facility] [address] [place] [address] 04/12/2025 1:40 PM EST Office [facility] 703 [facility] [address] [place] [address] Aleida Valle MD [facility]03 [facility] [address] [place] [address] documented as of this encounter Visit Diagnoses Not on filedocumented in this encounter Additional Health Concerns Assessment Noted Time A fall risk assessment has been complete d for the patient 10/13/2023 4:04 PM EDT documented as of this encounter Care Teams Hr Business Partner Consultant Relationship Specialty Start Date End Date Al Martinez DO [address] [place] [address] PCP - General Internal Medicine 07/01/23 Camryn Davies, ROHINI Seed Mill SuperintendentLeather Sprayer 11/15/23 11/15/23 documented as of this encounter
--- OUTSIDE RECORDS SUMMARY | 2024-09-01 09:38 | XMS_ITS | Encounter Summary ---
Author Organization [facility] Address [address] [place] [address] Phone Care Team Providers Care Chemical Preparer Name Role Phone RosalbaAl reilly Primary Care Provider [phone] Encounter Details Date Type Department Care Team (Late st Contact Info) Description 08/14/2024 Scanned Document [facility] [address] [place] [address] Scanning, Generic Provider Social History Tobacco Use [...] were you homeless or living in a fpc (including now)? No 11/01/2023 Sex and Gender Information Value Date Recorded Sex Assigned at Not on file Legal Sex Male 3:25 PM EST Gender Identity Not on file Sexual Orientation Not on file documented as of this encounter Plan of Treatment Upcoming Encounters Date Type Department Care Team (Late st Contact Info) Description 11/08/2024 1:30 PM EDT Office Visit [facility] [address] [facility] [address] [place] [address] [place] [address] [place] [address] 11/10/2024 9:00 AM EDT Telemedicine Clinical Support [facility] [address] [address] [facility] [address] [place] [address] 04/12/2025 1:40 PM EST Office Visit [facility] 703 [facility] [address] [place] [address] Aleida Valle MD 703 [facility] 2, [address] [place] [address] documented as of this encounter Visit Diagnoses Not on filedocumented in this encounter Additional Health Concerns Assessment Noted Time A fall risk assessment has been complete d for the patient 07/12/2024 3:47 PM EDT documented as of this encounter Care Teams Chemical Preparer Relationship Specialty Start Date End Date Al Martinez DO [facility] [place] [address] PCP - General Internal Medicine 07/01/23 documented as of this encounter
--- OUTSIDE RECORDS SUMMARY | 2024-09-01 09:38 | XMS_ITS | Clinical Summary ---
Author Organization [facility] Address [address] [place] [address] Care Team Providers Care Knuckle Strap Sewer Name Role Phone Al Martinez MD Primary Care Provider [phone] Luis Dewey Leslie DO Unavailable [phone] Allergies No known active allergies Medications Eliquis [...] Immunosuppression 02/23/2023 08/09/2023 Kidney disease 02/23/2023 08/09/2023 prison current use of ant icoagulant therapy 02/23/2023 [...] 08/16/2024 Telephone [facility] [address] [place] [address] Dewey Smith, Appointment (ENT F/U) 08/16/2024 Abstract [facility] [address] [place] [address] Dewey Smith DO 06/20/2024 2:45 PM EDT Office Visit [facility] [address] [place] [address] Dewey Smith DO Chronic anticoagulation (Primary Dx); Nasal septal deviation; Recurrent epistaxis; Chronic rhinitis; Dysphonia 06/20/2024 Bamboo flowsheet [facility] [address] [place] [address] Dewey Smith DO 06/20/2024 Travel from Last 3 Months Immunizations Immunization Administration Dates Next Due DTP 10/25/2020 Novel [id number], preservative-free 03/25 Td (adult), 5 Lf tetanus [...] Comments Pneumococcal Vaccine: 65+ Years (1 of 1 - PCV) 992 Influenza Vaccine (Season Ended) 2024 [place] [address] [employer] Care Teams Knuckle Strap Sewer Relationship Specialty Start Date End Date Al Martinez MD [address] [facility] [place] [address] PCP - General Internal Medicine 07/24/23 Dewey Smith DO [address] [place] [address] Otolaryngology 08/24/23
--- OUTSIDE RECORDS SUMMARY | 2024-09-01 09:38 | XMS_ITS | Encounter Summary ---
Author Organization [facility] Address [address] [place] [address] Phone Care Team Providers Care Collector Of Aquarium Specimens Name Role Phone RosalbaAl reilly Erich HDEZ Primary Care Provider [phone] Camryn Davies RESIDENTIAL DESIGNER Unavailable Encounter Details Date Type Department Care Team (Late st Contact Info) Description 09/14/2023 Scanned Document [facility] [address] [place] [address] Scanning, Generic Provider Social History Tobacco Use [...] Description 11/08/2024 1:30 PM EDT Office Visit [facility] [address] [place] [address] [place] [address] [place] [address] 11/10/2024 9:00 AM EDT Telemedicine Clinical Support [facility] [place] [address] [address] [place] [address] [place] [address] 04/12/2025 1:40 PM EST Office Visit [facility] 703 [facility] [address] [place] [address] Aleida Valle MD [address], [address] [place] [address] documented as of this encounter [...] documented as of this encounter Care Teams Collector Of Aquarium Specimens Relationship Specialty Start Date End Date Al Martinez DO [facility] [place] [address] PCP - General Internal Medicine 07/01/23 Camryn Davies, ROHINI DriverGraphic Art Technician 11/15/23 11/15/23 documented as of this encounter
--- OUTSIDE RECORDS SUMMARY | 2024-09-01 09:38 | XMS_ITS | Clinical Summary ---
Author Organization [facility] Address [address] [place] [address] Care Team Providers Care Solar Project Engineer Name Role Phone Michelle Newton DO, Charles [...] once daily. Active mirabegron (MYRBETRIQ) 50 mg [id number]: Abnormal ECG Take 50 mg by mouth [...] History Relation Comments Diabetes Father Heart Father NE Hyperlipidemia Father Hypertension Father Cancer Mother breast [...] N ot on file 03/05/2020 Data from: [email or web address] Last address used for calculation Not on [...] [facility] Comment: The [place] Diabetes Association (ADA) provides guidance for cutoff [...] Standards of Medical Care in Diabetes 2016, [place] [employer] Association. Diabetes Care. 2016.39(Suppl 1). BUN 18 9 - 24 mg/dL 03/15/2018 4:56 PM [facility] Creatinine 1.31(H) 0.73 - 1.22 mg/dL 03/15/2018 4:56 PM [facility] Sodium 140 136 - 144 mmol/L 03/15/2018 4:56 PM [facility] Potassium 4.6 3.7 - 5.1 mmol/L 03/15/2018 4:56 PM [facility] Chloride 104 97 - 105 mmol/L 03/15/2018 4:56 PM [facility] CO2 24 22 - 30 mmol/L 03/15/2018 4:56 PM [facility] Anion Gap 12 9 - 18 mmol/L 03/15/2018 4:56 PM [facility] ALT 23 10 - 54 U/L 03/15/2018 4:56 PM [facility] eGFR- >60 03/15/2018 4:56 PM [facility] eGFR-All Other Races 53 . 03/15/2018 4:56 PM [facility] Comment: eGFR (Estimated GFR) Units of [...] [facility] [address] [place] [address] from Last 3 Months or Most Recently Relevant to Health Maintenance Insurance MEDICARE Member Subscriber Plan / Payer (Ef fective 2006-Present) Name:Bruno Jay Member ID:[id number] Relation to Subscriber:Self Name:Bruno Jay Subscriber ID:[id number] Payer ID:Not on file Group ID:Not on file Type:Medicare Address: [address] Care Teams Solar Project Engineer Relationship Specialty Start Date End Date Al Martinez Jr., [facility] [place] [address] PCP - General 01/29/01 Referring, No(Hist) 03/17/18
--- OUTSIDE RECORDS SUMMARY | 2024-09-01 09:38 | XMS_ITS | Clinical Summary ---
Author Organization [facility] Address [address] [place] [address] Phone Care Team Providers Care Bpm Solution Architect Name Role Phone RosalbaAl reilly Primary Care Provider Allergies No known active allergies Medications Bydureon BCise 2 mg/0.85 mL auto-injector Inject 2 mg under the skin 1 (one) time per week in the small brake form operator.. 3 Active oxyCODONE-acetami nophen (Percocet) 5-325 mg [...] mg) by mouth 4 times a week. [facility] tablet 1 4 Active pantoprazole [...] Sleep apnea 02/23/2023 Vitamin D deficiency 02/23/2023 intermediate current use of 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 therapy 1 04/25/2022 [...] Encounters Date Type Department Care Team Description 08/29/[address] [address] Vivian Mack LPN eliquis 08/14/2024 Scanned Document [facility] [address] [place] [address] Scanning, Generic Provider 07/28/2024 Scanned Document [facility] [address] [place] [address] Scanning, Generic Provider 07/12/2024 3:30 PM EDT Office Visit [facility] [address] [address] Aleida Valle MD Chronic systolic heart failure (Primary Dx); Single vessel coronary artery disease; Severe aortic stenosis; Pulmonary hypertension (Multi); Persistent atrial fibrillation (Multi); Nonrheumatic aortic valve stenosis; Hypercholesteremia; Primary hypertension; History of transcatheter aortic valve replacement (TAVR); Bradycardia; Abnormal ECG; intermediate current use of 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 therapy; Shortness of breath; Former smoker; BMI 28.0-28.9,adult 07/12/2024 Travel 07/07/2024 Orders Only [facility] [address] [place] [address] Scanning, Generic Provider 06/08/2024 Scanned Document [facility] [address] [facility] [place] [address] Scanning, Generic Provider from Last 3 Months Immunizations Immunization Administration Dates Next Due DTP 10/25/2020 Novel [id number], preservative-free 03/25 Pfizer COVID-19 vaccine, biv alent, [...] any time in the past 12 m [facility], were you homeless or living in [...] Description 11/08/2024 1:30 PM EDT Office Visit [facility] [address] [place] [address] [place] [address] [place] [address] 11/10/2024 9:00 AM EDT Telemedicine Clinical Support [facility] [address] [facility] [address] [place] [address] 04/12/2025 1:40 PM EST Office Visit [facility] 703 [facility] [address] [place] [address] Aleida Valle MD 703 [facility] [address] [place], [place] [phone] Health Maintenance Due Date Last Done Comments [...] this topic Medical Devices Implanted Type Area Home Health Care Case Manager Device Identifier Shelf Expiration Date Model / Serial / Lot Base Plate Base Plate Bilatera l: Knee Cardiac Pacemaker Cardiac Pacemaker Chest Valve, Aortic, 34mm, Evolut Fx Transcatheter - [id number] - [id number] Implanted:Qty: 1 on 11/12/2023 by Milton Camejo MD at [facility] Heart Valve Repair N/A: Heart [employer] 08/19/2025 EVFXPLUS- 34 / [id number] / [id number] Procedures Procedure Name Priority Date/Time Associated Diagnosis Comments OUTSIDE LAB SCAN 07/28/2024 ECG 12-LEAD Routine 07/12/2024 3:38 PM EDT [...] Recently Relevant to Health Maintenance Results * OUTSIDE LAB SCAN (07/28/2024) Narrative 07/28/2024 Ordered by an unspecified provider. us Generic Provider Scanning OUTSIDE SCAN Final Result * ECG 12 Lead (07/12/2024 3:38 PM EDT) Narrative CPACS - 07/12/2024 4:21 PM EDT Atrial fibrillation with controlled rate probable old inferior KS us Aleida Valle MD ECG ORDERABLES Final Resu lt CPACS * Outside Device Check - Onbase Scan (07/07/2024) Narrative 07/07/2024 Ordered by an unspecified provider. us Generic Provider Scanning [facility] [place] OCEDURES Final Result * TRANSTHORACIC ECHO (TTE) [...] Narrative SYNGO - 01/17/2024 3:44 PM EDT [facility] [address] [facility], [address], [place] [address] TRANSTHORACIC ECHOCARDIOGRAM REPORT Patient Name: SHAHID JAY Reading Physician: [id number] Aleida Valle MD Study Date: 01/12/2024 Ordering Provider: [id number] KALANI MOLINA MRN/PID: [id number] Fellow: Nurse: Date of /Age: 7 1940 / 83 years Catheter Builder: Wen Ron RDCS, RDMS, RVT Gender: M Additional Staff: Height: 180.34 cm Admit Date: Weight: 90.27 kg Admission Status: Outpatient BSA / BMI: 2.10 m2 / 27.76 Department Location: [facility] kg/m2 [place] Blood Pressure: 134 /62 mmHg Study Type: TRANSTHORACIC ECHO (TTE) COMPLETE Diagnosis/ICD: 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 Evolut FX #34, HX , AFib, CAD, CHF, HTN, DM, Pacemaker, Dilated CM, CPT Codes: Echo Complete w Full Doppler-54701 Study Detail: The following Echo studies were [...] 0.7 m/s (0.6-0.9m/s) PV Max P.2 mmHg 11330 Aleida Valle MD Electronically signed on 01/17/2024 at 3:44:31 PM Final Procedure Note Aleida Valle MD - 01/17/[address], [address] [place] [address] TRANSTHORACIC ECHOCARDIOGRAM REPORT Patient Name: SHAHID JAY Chastity Physician: [id number] Krause Study Date: 01/12/2024 Ordering Provider: ANGIE MOLINA MRN/PID: [id number] Fellow: Nurse: Date of /Age: 7 1940 / 83 years Catheter Builder: Alcides COPPOLA RDMSRVT Gender: M Additional Staff: Height: 180.34 cm Admit Date: Weight: 90.27 kg Admission Status: Outpatient BSA / BMI: 2.10 m2 / 27.76 [facility] Blood Pressure: 134 /62 mmHg Study Type: TRANSTHORACIC ECHO (TTE) COMPLETE Diagnosis/ICD: 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 Evolut FX #34, HX , AFib, CAD, CHF, HTN,DM, Pacemaker, Dilated CM, CPT Codes: Echo Complete w Full Doppler-54595 Study Detail: The following Echo studies were [...] 0.7 m/s (0.6-0.9m/s) PV Max P.2 mmHg [id number] Aleida Valle MD Electronically signed on 01/17/2024 at 3:44:31 PM Final us Kalanisanto Molina SILK WINDING MACHINE OPERATOR-PRINTED CIRCUIT BOARD PCB DESIGNER CV ECHO PROCEDURES F inal Result SYNGO * (ABNORMAL) Comprehensive metabolic panel (11/13/2023 10:35 AM EDT) Glucose 250(H) 74 - 99 mg/dL LAB CHEMISTRY METHOD 11/13/2023 12:22 PM EDT [facility] Sodium 137 136 - 145 mmol/L LAB CHEMISTRY METHOD 11/13/2023 12:22 PM EDT [facility] Potassium 3.9 3.5 - 5.3 mmol/L LAB CHEMISTRY METHOD 11/13/2023 12:22 PM EDT [facility] Chloride 101 98 - 107 mmol/L LAB CHEMISTRY METHOD 11/13/2023 12:22 PM EDT [facility] Bicarbonate 23 21 - 32 mmol/L LAB CHEMISTRY METHOD 11/13/2023 12:22 PM EDT [facility] Anion Gap 17 10 - 20 mmol/L LAB CHEMISTRY METHOD 11/13/2023 12:22 PM EDT [facility] Urea Nitrogen 29(H) 6 - 23 mg/dL LAB CHEMISTRY METHOD 11/13/2023 12:22 PM EDT [facility] Creatinine 1.51(H) 0.50 - 1.30 mg/dL LAB CHEMISTRY METHOD 11/13/2023 12:22 PM EDT [facility] eGFR 46(L) >60 mL/min/1. 73m*2 LAB CHEMISTRY METHOD 11/13/2023 12:22 PM EDT [facility] Comment: Calculations of estimated GFR are performed using the 2020 CKD-EPI Study Refit equation without the race variable for the IDMS-Traceable creatinine methods. https://jasn.asnjournals.org/content//ASN.3858717540 Calcium 8.9 8.6 - 10.6 mg/dL LAB CHEMISTRY METHOD 11/13/2023 12:22 PM EDT [facility] Albumin 3.4 3.4 - 5.0 g/dL LAB CHEMISTRY METHOD 11/13/2023 12:22 PM EDT [facility] Alkaline Phosphatase 60 33 - 136 U/L LAB CHEMISTRY METHOD 11/13/2023 12:22 PM EDT [facility] Total Protein 6.5 6.4 - 8.2 g/dL LAB CHEMISTRY METHOD 11/13/2023 12:22 PM EDT [facility] AST 20 9 - 39 U/L LAB CHEMISTRY METHOD 11/13/2023 12:22 PM EDT [facility] Bilirubin, Total 0.8 0.0 - 1.2 mg/dL LAB CHEMISTRY METHOD 11/13/2023 12:22 PM EDT [facility] ALT 13 10 - 52 U/L LAB CHEMISTRY METHOD 11/13/2023 12:22 PM EDT [facility] Comment:Patients treated wit h Sulfasalazine may generate falsely decreased results for ALT. Blood Venous blood specimen / Unknown Venipuncture / Unknown 11/13/2023 10:35 AM EDT 11/13/2023 10:41 AM EDT us Caron Lóen MD LAB BLOOD ORDERABLES Final Res ult [facility] [address] [place] [address] * (ABNORMAL) TSH with reflex to Free T4 if abnormal (11/01/2023 6:18 PM EDT) Thyroid Stimulating Hormone 8.94(H) 0.44 - 3.98 mIU/L LAB IMMUNOASSAY METHOD 11/01/2023 8:18 PM EDT [facility] Blood Venous blood specimen / Unknown Venipuncture / Unknown 11/01/2023 6:18 PM EDT 11/01/2023 6:52 PM EDT Narrative [facility] - 11/01/2023 8:18 PM EDT TSH testing is performed using different testing methodology at [facility] than at other [facility]. Direct result comparisons should only be made within the same method. Micah Tarik Xena SILK WINDING MACHINE OPERATORBARNSTABLE [facility] BLOOD ORDERABLES Fin al Result Performing Organization Address [facility] Co de Phone Number [facility] [address] [place] [phone] * (ABNORMAL) Hemoglobin A1c (11/01/2023 6:18 PM EDT) Hemoglobin A1C 6.9(H) see below % 7:39 PM EDT [facility] Estimated Average Glucose 151 Not Established mg/dL 11/01/2023 7:39 PM EDT [facility] Blood Venous blood specimen / Unknown Venipuncture / Unknown 11/01/2023 6:18 PM EDT 11/01/2023 6:53 PM EDT Narrative [facility] - 11/01/2023 7:39 PM EDT Diagnosis of Diabetes-Adults Non-Diabetic: < or = 5.6% Increased risk for developing diabetes: 5.7-6.4% Diagnostic of diabetes: > or = 6.5% Micah Mccallum SILK WINDING MACHINE OPERATORB[facility]ST[facility] BLOOD ORDERABLES Fin al Result Performing Organization Address [facility] de Phone Number [facility] [address] [place] [phone] from Last 3 Months or Most Recently Relevant to Health Maintenance Insurance MEDICARE PART A AND B MEDICARE PART A AND B Member Subscriber Plan / Payer ( fective 2006-Present) Name:Shahid Jay Member ID:[id number] Relation to Subscriber:Self Name:Shahid Jay Subscriber ID:[id number] Payer ID:Not on file Group ID:Not on file Type:Not on file Address: [address] Advance Directives For more information, please contact: [phone] (Available ) Documents on File Type Date Recorded Patient Software Test And Validation Engineer Expl anation Living Will 11/15/2023 * Full Code (Latest Code Status on File) Date Activated Date Inactivated Comments 11/01/2023 4:50 PM Question Answer Comments Plan of Care: Code Status Discussion Completed Decision Maker: Patient Healthcare Agents on File Name Relationship Healthcare Agent Relationship Communication Lilliana Bullard Daughter First Altern ate Health Care Agent [email or web address] Paddy Mann Daughter Second Alternate Health Care Agent Care Teams Bpm Solution Architect Relationship Specialty Start Date End Date Al [place] DO [address] [place] [address] PCP - General Internal Medicine 07/01/23
--- OUTSIDE RECORDS SUMMARY | 2024-09-01 09:38 | XMS_ITS | Encounter Summary ---
Author Organization [facility] Address [address] [place] [address] Phone Care Team Providers Care Linux Engineer Name Role Phone RosalbaAl reilly Primary Care Provider [phone] Encounter Details Date Type Department Care Team (Late st Contact Info) Description 06/08/2024 Scanned Document [facility] [address] [place] [address] Scanning, Generic Provider Social History Tobacco Use [...] were you homeless or living in a longterm (including now)? No 11/01/2023 Sex and Gender Information Value Date Recorded Sex Assigned at Not on file Legal Sex Male 3:25 PM EST Gender Identity Not on file Sexual Orientation Not on file documented as of this encounter Plan of Treatment Upcoming Encounters Date Type Department Care Team (Late st Contact Info) Description 11/08/2024 1:30 PM EDT Office Visit [facility] [address] [facility] [address] [place] [address] [place] [address] [place] [address] 11/10/2024 9:00 AM EDT Telemedicine Clinical Support [facility] [address] [facility] [address] [place] [address] 04/12/2025 1:40 PM EST Office Visit [facility] 703 [facility] [address] [place] [address] Aleida Valle MD 703 [facility] 2, [address] [place] [address] documented as of this encounter Visit Diagnoses Not on filedocumented in this encounter Additional Health Concerns Assessment Noted Time A fall risk assessment has been complete d for the patient 01/25/2024 2:32 PM EDT documented as of this encounter Care Teams Linux Engineer Relationship Specialty Start Date End Date Al [place] DO [facility] [place] [address] PCP - General Internal Medicine 07/01/23 documented as of this encounter
--- OUTSIDE RECORDS SUMMARY | 2024-09-01 09:38 | XMS_ITS | Encounter Summary ---
Author Organization [facility] Address [address] [place] [address] Phone Care Team Providers Care Clarifier Operator Name Role Phone RosalbaAl reilly Erich HDEZ Primary Care Provider [phone] Camryn Davies TOPSTITCHER LOCKSTITCH Unavailable Encounter Details Date Type Department Care Team (Late st Contact Info) Description 09/09/2023 Scanned Document [facility] [address] [place] [phone] Scanning, Generic Provider Social History Tobacco Use [...] Description 11/08/2024 1:30 PM EDT Office Visit [facility] [address] [place] [address] [place] [address] [place] [address] 11/10/2024 9:00 AM EDT Telemedicine Clinical Support [facility] [address] [place] [address] [place] [address] 04/12/2025 1:40 PM EST [facility] Visit [facility] 703 [facility] [address] [place] [address] Aleida Valle MD [address] [place] [address] documented as of this encounter Procedures Procedure Name Priority Date/Time Associated Diagnosis Comments OUTSIDE DEVICE CHECK - ONBASE SCAN 09/09/2023 OUTSIDE IMAGING SCAN 09/09/2023 documented in this encounter Results * Outside Device Check - Onbase Scan (09/09/2023) Narrative 09/09/2023 Ordered by an unspecified provider. us Generic Provider Scanning [facility] [place] OCEDURES Final Result * OUTSIDE IMAGING SCAN [...] documented as of this encounter Care Teams Clarifier Operator Relationship Specialty Start Date End Date Al [place] DO [address] [place] [address] PCP - General Internal Medicine 07/01/23 Camryn Davies, TOPSTITCHER LOCKSTITCH Technical Project ManagerNuclear Equipment Operator 11/15/23 11/15/23 documented as of this encounter
--- OUTSIDE RECORDS SUMMARY | 2024-09-01 09:38 | XMS_ITS | Encounter Summary ---
Author Organization [facility] Address [address] [place] [address] Phone Care Team Providers Care Personal Banking Assistant Name Role Phone RosalbaAl reilly Erich HDEZ Primary Care Provider Camryn Davies BULLET LUBRICANT MIXER Unavailable Encounter Details Date Type Department Care Team (Late st Contact Info) Description 09/13/2023 Scanned Document [facility] [address] [place] [phone] Scanning, Generic Provider Social History Tobacco Use [...] Description 11/08/2024 1:30 PM EDT Office Visit [facility] [address] [place] [address] [place] [address] [place] [address] 11/10/2024 9:00 AM EDT Telemedicine Clinical Support [facility] [address] [place] [address] [place] [address] 04/12/2025 1:40 PM EST Office Visit [facility] [address] [facility] [address] [place] [address] Aleida Valle MD [address] [facility] [address] [place] [address] documented as of this encounter [...] documented as of this encounter Care Teams Personal Banking Assistant Relationship Specialty Start Date End Date Al [place] DO [address] [place] [address] PCP - General Internal Medicine 07/01/23 Camryn Davies, ROHINI Station Mechanic ApprenticeVerification Clerk 11/15/23 11/15/23 documented as of this encounter
--- OUTSIDE RECORDS SUMMARY | 2024-09-01 09:38 | XMS_ITS | Encounter Summary ---
Author Organization [facility] Address [address] [place] [address] Care Team Providers Care Roller Turner Name Role Phone Al [place] MD Primary Care Provider [phone] Dewey Smith DO Unavailable [phone] Encounter Details Date Type Department Care Team (Late st Contact Info) Description 08/16/2024 Abstract [facility] [address] [place] [phone] Dewey Smith DO [address] [place], [place] [phone] Social History Tobacco Use Types Packs/Day Years [...] on filedocumented in this encounter Care Teams Roller Turner Relationship Specialty Start Date End Date Al [place] MD [address] [place] [address] [place] [address] PCP - General Internal Medicine 07/24/23 Dewey Smith DO [address] [place] [address] Otolaryngology 08/24/23 documented as of this encounter
--- OUTSIDE RECORDS SUMMARY | 2024-09-01 09:38 | XMS_ITS | Encounter Summary ---
Author Organization [facility] Address [address] [place] [address] Phone Care Team Providers Care Gymnastics Coach Or Instructor Name Role Phone RosalbaAl reilly Primary Care Provider Camryn Davies SOLUTION MANAGER Unavailable Encounter Details Date Type Department Care Team (Late st Contact Info) Description 10/11/[address] [facility] [address] [place] [address] [place] [address] [place] [address] Social History Tobacco Use Types Packs/Day Years [...] Description 11/08/2024 1:30 PM EDT Office Visit [facility] [address] [place] [address] [place] [address] [place] [address] 11/10/2024 9:00 AM EDT Telemedicine Clinical Support [facility] [address] [facility] [address] [place] [phone] 04/12/2025 1:40 PM EST Office Visit [facility] 703 [facility] [address] [place] [address] Aleida Valle MD [facility] [address] [place] [address] documented as of this encounter Visit Diagnoses Not on filedocumented in this encounter Additional Health Concerns Assessment Noted Time A fall risk assessment has been complete d for the patient 06/23/2023 1:14 PM EDT documented as of this encounter Care Teams Gymnastics Coach Or Instructor Relationship Specialty Start Date End Date Al Martinez DO [address] [place] [address] PCP - General Internal Medicine 07/01/23 Camryn Davies, ROHINI Finish SpecialistPublic Relations Senior Associate 11/15/23 11/15/23 documented as of this encounter
--- OUTSIDE RECORDS SUMMARY | 2024-09-01 09:38 | XMS_ITS ---
Author Organization [facility] Address [address] [place] [address] Phone Care Team Providers Care Preparation Department Supervisor Name Role Phone Al Martinez Primary Care Provider [phone] Active Problems Problem Noted Date Diagnosed Date [...] Sleep apnea 02/23/2023 Vitamin D deficiency 02/23/2023 african studies professor current use of 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 therapy 1 04/25/2022 [...]
--- OUTSIDE RECORDS SUMMARY | 2024-09-01 09:39 | XMS_ITS | Encounter Summary ---
Author Organization [facility] Address [address] [place] [address] Phone Care Team Providers Care Commercial Lending Assistant Name Role Phone RosalbaAl reilly Primary Care Provider Encounter Details Date Type Department Care Team (Late st Contact Info) Description 07/28/2024 Scanned Document [facility] [address] [place] [address] Scanning, Generic Provider Social History Tobacco Use [...] time in the past 12 m [facility], were you homeless or living in a assisted (including now)? No 11/01/2023 Sex and Gender Information Value Date Recorded Sex Assigned at Not on file Legal Sex Male 3:25 PM EST Gender Identity Not on file Sexual Orientation Not on file COVID-19 Exposure Response Date Recorded In the last 10 days, have yo u been in contact with someone who was confirmed or suspected to have Coronavirus/COVID-19? No / Unsure 07/12/2024 3:38 PM EDT documented as of this encounter Plan of Treatment Upcoming Encounters Date Type Department Care Team (Late st Contact Info) Description 11/08/2024 1:30 PM EDT Office Visit [facility] [address] [facility] [address] [place] [phone] [place] [address] [place] [address] 11/10/2024 9:00 AM EDT Telemedicine Clinical Support [facility] [address] [address] [facility] [address] [place] [address] 04/12/2025 1:40 PM EST Office Visit [facility] 703 [facility] 250 [place] [address] Aleida Valle MD 703 [facility] 2, [address] [place] [address] documented as of this encounter Procedures Procedure Name Priority Date/Time Associated Diagnosis Comments OUTSIDE LAB SCAN 07/28/2024 documented in this encounter Results * OUTSIDE LAB SCAN (07/28/2024) Narrative 07/28/2024 Ordered by an unspecified provider. us Generic Provider Scanning OUTSIDE SCAN Final Result documented in this encounter Visit Diagnoses Not on filedocumented in this encounter Additional Health Concerns Assessment Noted Time A fall risk assessment has been complete d for the patient 07/12/2024 3:47 PM EDT documented as of this encounter Care Teams Commercial Lending Assistant Relationship Specialty Start Date End Date Al Martinez DO [facility] [place] [address] PCP - General Internal Medicine 07/01/23 documented as of this encounter
--- OUTSIDE RECORDS SUMMARY | 2024-09-01 09:39 | XMS_ITS | Encounter Summary ---
Author Organization [facility] Address [address] [place] [address] Phone Care Team Providers Care Survey Data Technician Name Role Phone Al Martinez DO Primary Care Provider [phone] Al Martinez DO Primary Care Provider [phone] Camryn Davies NET WEB DEVELOPER Unavailable Encounter Details Date Type Department Care Team (Late st Contact Info) Description 03/13/2023 Scanned Document [facility] [address] [place] [phone] Scanning, Generic Provider Social History Tobacco Use [...] Description 11/08/2024 1:30 PM EDT Office Visit [facility] [address] [place] [phone] [place] [address] [place] [address] 11/10/2024 9:00 AM EDT Telemedicine Clinical Support [facility] [address] [facility] [address] [place] [phone] 04/12/2025 1:40 PM EST Office Visit [facility] [address] [facility] [address] [place] [address] Aleida Valle MD [address] [facility] [address] [place] [address] documented as of this encounter Procedures Procedure Name Priority Date/Time Associated Diagnosis Comments OUTSIDE IMAGING SCAN 03/13/2023 documented in this encounter Results * OUTSIDE IMAGING SCAN (03/13/2023) Anatomical Region Laterality Modality Other Narrative 03/13/2023 Ordered by an unspecified provider. Generic Provider Scanning OUTSIDE SCAN Final Result documented in this encounter Visit Diagnoses Not on filedocumented in this encounter Additional Health Concerns Assessment Noted Time A fall risk assessment has been complete d for the patient 02/23/2023 1:21 PM EST documented as of this encounter Care Teams Survey Data Technician Relationship Specialty Start Date End Date Al Martinez DO PCP - General Internal Medicine 02/05/23 06/30/23 Al Martinez DO [address] [place] [address] PCP - General Internal Medicine 07/01/23 Camryn Davies, ROHINI Medical Insurance VerifierAssistant Fitness Manager 11/15/23 11/15/23 documented as of this encounter
--- OUTSIDE RECORDS SUMMARY | 2024-09-01 09:39 | XMS_ITS | Encounter Summary ---
Author Organization [facility] Address [address] [place] [address] Phone Care Team Providers Care Yarn Finisher Name Role Phone Al Martinez DO Primary Care Provider [phone] Al Martinez DO Primary Care Provider [phone] Camryn Davies DIRECTOR SALES Unavailable Encounter Details Date Type Department Care Team (Late st Contact Info) Description 03/12/2023 Scanned Document [facility] [address] [place] [phone] Scanning, Generic Provider Social History Tobacco Use [...] Description 11/08/2024 1:30 PM EDT Office Visit [facility] [address] [place] [phone] [place] [address] [place] [address] 11/10/2024 9:00 AM EDT Telemedicine Clinical Support [facility] [address] [facility] [address] [place] [phone] 04/12/2025 1:40 PM EST Office Visit [facility] [address] [facility] [address] [place] [address] Aleida Valle MD 7[address] [facility] [address] [place] [address] documented as of this encounter Procedures Procedure Name Priority Date/Time Associated Diagnosis Comments OUTSIDE IMAGING SCAN 03/12/2023 documented in this encounter Results * OUTSIDE IMAGING SCAN (03/12/2023) Anatomical Region Laterality Modality Other Narrative 03/12/2023 Ordered by an unspecified provider. Generic Provider Scanning OUTSIDE SCAN Final Result documented in this encounter Visit Diagnoses Not on filedocumented in this encounter Additional Health Concerns Assessment Noted Time A fall risk assessment has been complete d for the patient 02/23/2023 1:21 PM EST documented as of this encounter Care Teams Yarn Finisher Relationship Specialty Start Date End Date Al Martinez DO PCP - General Internal Medicine 02/05/23 06/30/23 Al Martinez DO [address] [place] [address] PCP - General Internal Medicine 07/01/23 Camryn Davies, ROHINI Sport InternSkid Wrapper 11/15/23 11/15/23 documented as of this encounter
--- OUTSIDE RECORDS SUMMARY | 2024-09-01 09:39 | XMS_ITS | Encounter Summary ---
Author Organization [facility] Address [address] [place] [address] Phone Care Team Providers Care Shipping Clerk Crating Name Role Phone Al Martinez DO Primary Care Provider [phone] Al Martinez DO Primary Care Provider [phone] Camryn Davies PEDIATRIC HOSPITALIST Unavailable Encounter Details Date Type Department Care Team (Late st Contact Info) Description 01/28/2023 Scanned Document [facility] [place] [facility] [address] [place] [phone] Scanning, Generic Provider Social History Tobacco Use [...] Description 11/08/2024 1:30 PM EDT Office Visit [facility] [address] [facility] [address] [place] [address] [place] [address] [place] [address] 11/10/2024 9:00 AM EDT Telemedicine Clinical Support [facility] [address] [facility] [address] [place] [phone] 04/12/2025 1:40 PM EST Office Visit [facility] [address] [facility] [address] [place] [address] Aleida Valle MD [address] [facility] [address] [place] [address] documented as of this encounter Visit Diagnoses Not on filedocumented in this encounter Care Teams Shipping Clerk Crating Relationship Specialty Start Date End Date Al Martinez DO PCP - General Internal Medicine 02/05/23 06/30/23 Al Martinez DO [address] [place] [address] PCP - General Internal Medicine 07/01/23 Camryn Davies, ROHINI Reinforced IronworkerDance Director 11/15/23 11/15/23 documented as of this encounter
--- OUTSIDE RECORDS SUMMARY | 2024-09-01 09:39 | XMS_ITS | Clinical Summary ---
Author Organization [facility] Address [id number] [address] [place] [address] Care Team Providers Care Facility Maintenance Technician Name Role Phone Unavailable Primary Care Provider [...] Medical Devices Not on file Insurance MEDICARE [facility]
--- OUTSIDE RECORDS SUMMARY | 2024-09-01 09:39 | XMS_ITS | Encounter Summary ---
Author Organization [facility] Address [address] [place] [address] Phone Care Team Providers Care Chain Mortiser Operator Name Role Phone RosalbaAl reilly Primary Care Provider Reason for Referral * Consultation (Routine) - Authorized Specialty Diagnoses / Procedures Referred By Contac t Referred To Contact Cardiology Diagnoses Persistent atrial fibrillation (Multi) Anemia, unspecified type Kidney disease Joby Valle MD [address] [place] [address] Phone: tel: fax: Christian Yan MD [address] [facility] [address] [place] [address] Phone: tel: fax: Referral ID Status Reason Start Date Expiration Date Visits Requested Visits Authorized [id number] Authorized Specialty Services Required 08/30/2024 08/30/2025 1 1 Reason for Visit * Reason Onset Date Comments ector 08/29/2024 Encounter Details Date Type Department Care Team (Late st Contact Info) Description 08/29/2024 Telephone [facility] [place] [address] Vivian Mack LPN eliquis Social History Tobacco Use Types Packs/Day Years [...] any time in the past 12 m [facility], were you homeless or living in a residential (including now)? No 11/01/2023 Sex and Gender Information Value Date Recorded Sex Assigned at Not on file Legal Sex Male 3:25 PM EST Gender Identity Not on file Sexual Orientation Not on file documented as of this encounter Miscellaneous Notes * Telephone Encounter - Ara Dey RN - 08/30/2024 2:16 PM EDT Phoned patient and advised of recommendations. He verbalized understanding. Pt states Dr. Martinez's office phoned him earlier and updated him. Pt states he has seen ENT already and reports he will follow up with them again. * Telephone Encounter - Ara Dey RN - 08/30/2024 1:32 PM EDT Pt states that he continues to deal with nosebleeds on and off, he is unsure if this is a cause of concerns for him to remain off of eliquis. Please advise if pt should begin taking eliquis 2.5 mg bid with nosebleeds or be taken off. * Addendum Note - Joby Valle MD - 08/30/2024 1:21 PM EDTAddended by: JOBY VALLE on: 08/30/2024 01:21 PM Modules accepted: Orders * Addendum Note - Ara Dey RN - 08/30/2024 12:13 PM EDTAddended by: ARA DEY on: 08/30/2024 12:13 PM Modules accepted: Orders * Telephone Encounter - Ara Dey RN - 08/30/2024 12:09 PM EDT Pt states that he continues to deal with nosebleeds on and off, he is unsure if this is a cause of concerns for him to remain off of eliquis. Please advise if pt should begin taking eliquis 2.5 mg bid with nosebleeds or be taken off. * Telephone Encounter - Ara Dey RN - 08/30/2024 12:06 PM EDT Images from the original note were not included. Phoned pt, advised of recommendations he verbalized understanding. Discussed watchman with patient, pt states that he is interested. Order prepped and sent to Dr. Joby Valle MD for signature. Task sent to membership secretary to call and arrange once order signed. Shared Decision Tool - Referral for Left Atrial Appendage Occlusion My patient Bruno Jay 1940 has been evaluated by me and is referred to [facility] for a left atrial appendage implant due thromboembolic stroke risk from atrial fibrillation with CHADS2 score >=2 or a [id number] score >= 3. This patient is not a good candidate for intermodal dispatcher anticoagulation for the following reason(s): This patient however should be able to tolerate short term anticoagulation as necessary for LAAO device implant. My Patient and I, the referring physician, have reviewed the following: Yes Atrial Fibrillation increases the risk of stroke. Yes Anticoagulants or blood thinners help reduce the risk of stroke for most people. Yes Blood thinners may cause minor or serious bleeding issues. Yes Blood thinners include the medications aspirin, warfarin, and NOAC (dabigatran, edoxaban, rivaroxaban, apixaban...), each with unique risk and safety profiles. Yes We reviewed his/her anticoagulation history and previous experiences. Yes We discussed lack of other alternative treatments available to prevent stroke risk. Yes We discussed the LAAO device implant vs taking anticoagulation to reduce stroke risk. Yes We referred the patient to a LAAO outpatient clinic for further explanation and consideration. Yes The LAAO device has been adequately explained along with the risks and benefits of treatment. Alternative treatment has been discussed with all questions answered. After discussion of the above considerations, it has been decided to be evaluated for the LAAO therapies. Reviewed and approved by Dr. Joby Valle MD on 08/30/24 at 12:08 PM. * Telephone Encounter - Ara Dey RN - 08/30/2024 12:[address] Martinez's office phones for update. Update provided they verbalized understanding. * Telephone Encounter - Vivian Mack LPN - 08/30/2024 9:21 AM EDT Left message on Dr. Martinez's a/m ) Patient will need contacted . * Telephone Encounter - Vivian Mack LPN - 08/29/2024 10:[address] Martinez's office called. Eliquis was stopped secondary to anemia. HBG 8.8 and results will be faxed. Pcp office inquired about a sooner visit and mentioned watchman device. To Dr. Joby Valle MD Pcp office would also like updated with plan documented in this encounter Plan of Treatment Upcoming Encounters Date Type Department Care Team (Late st Contact Info) Description 11/08/2024 1:30 PM EDT Office Visit [facility] [address] [place] [phone] [place] [address] [place] [address] 11/10/2024 9:00 AM EDT Telemedicine Clinical Support [facility] [place] [address] [place] [phone] 04/12/2025 1:40 PM EST Office Visit [facility] [address] [facility] [address] [place] [address] Joby Valle MD [address] [facility] [address] [place] [address] Scheduled Referrals Name Type Priority Associated Diagnoses Orde r Schedule Referral to [facility] Outpatient Referral Non-Urgent Persistent atrial fibrillation (Multi) Anemia, unspecified type Kidney disease Expected: 08/30/2024 (Approximate), Expires: 08/30/2025 documented as of this encounter Visit Diagnoses Diagnosis Persistent atrial fibrillation (Multi) Atrial fibrillation Anemia, unspecified type Kidney disease Unspecified disorder of kidney and ureter documented in this encounter Additional Health Concerns Assessment Noted Time A fall risk assessment has been complete d for the patient 07/12/2024 3:47 PM EDT documented as of this encounter Care Teams Chain Mortiser Operator Relationship Specialty Start Date End Date Al Martinez DO [address] [place] [address] PCP - General Internal Medicine 07/01/23 documented as of this encounter
[2024-09-01 10:07] LABS: Basophils Percent Auto 0.5 % (0.2-2.0); Eosinophils Absolute Auto 0.1 10^3/uL (0.0-0.7); Eosinophils Percent Auto 2.2 % (0.9-7.0); Hemoglobin 8.7 g/dL (14.0-18.0); Immature Granulocytes Abs Auto 0.02 10^3/uL (0.00-0.03); Immature Granulocytes Pct Auto 0.3 % (0.0-0.5); Lymphocytes Absolute Auto 0.9 10^3/uL (1.2-3.8); Lymphocytes Percent Auto 14.7 % (20.5-60.0); Mean Corpuscular HGB Conc 32.2 g/dL (29.9-35.2); Mean Corpuscular Hemoglobin 31.3 pg (25.9-34.0); Mean Corpuscular Volume 97.1 fL (80.0-94.0); Mean Platelet Volume 10.1 fL (9.5-13.5); Monocytes Absolute Auto 0.6 10^3/uL (0.3-0.8); Monocytes Percent Auto 9.7 % (1.7-12.0); Neutrophils Absolute Auto 4.2 10^3/uL (1.4-6.5); Neutrophils Percent Auto 72.6 % (43.0-75.0); Platelet Count 185 10^3/uL (150-450); Red Blood Count 2.78 10^6/uL (4.70-6.10); Red Cell Distribution Width 17.1 % (11.0-15.0); White Blood Count 5.8 10^3/uL (4.0-11.0)
[2024-09-01 10:41] LABS: Anion Gap 15.1; Carbon Dioxide 25.4 mmol/L (21.0-32.0); Chloride 103 mmol/L (98-107); Estimated GFR (African America 47 (>=60 mL/min/1.73m^2); Estimated GFR (Non-African Ame 39 (>=60 mL/min/1.73m^2); Potassium 4.5 mmol/L (3.5-5.1); Sodium 139 mmol/L (136-145)
== END 2024-09-01 09:36 | disposition home or self-care (01) ==
LOC: LAB 09:36
PROVIDERS: PCP Internal Medicine; Visit Provider Internal Medicine
DX: E03.9 Hypothyroidism, unspecified (principal); D50.9 Iron deficiency anemia, unspecified; R60.0 Localized edema
CPT/HCPCS: 36415; 80051; 82565; 84443; 84520; 85025

== ENCOUNTER 2024-09-18 13:53 | Outpatient (RCR) | payer MEDICARE, SELFPAY ==
--- NOTE | 2024-05-31 16:06 | CR1_ITS ---
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
--- NOTE | 2024-06-01 13:13 | CR1_ITS ---
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
--- NOTE | 2024-06-28 09:43 | CR1_ITS ---
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
--- NOTE | 2024-07-26 07:41 | CR1_ITS ---
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 Recommend supplemental O2 if SpO2 drops to 88% or less during exercise - apply @ 2L/min O2 per NC to maintain SpO2 89% or greater. Otherwise, continue participating in cardiac rehabilitation with the outlined exercise prescription. Electronically Signed On 07-26-2024 14:34:28 EDT by Kelvin Steiner
--- NOTE | 2024-08-29 14:45 | CR1_ITS ---
[facility] Test Date: 2024-08-29 Pat Name: SHAHID SANCHEZ Department: Room: - Gender: Male Hoisting Laborer: : 1940 Requested By: Kelvin Steiner Order Number: [id number] Reading MD: Kelvin Steiner Interpretive Statements Patient should complete phase 2 pulmonary rehabilitation. Using O2 in conjunction with cardiac rehabilitation can possibly improve his stamina and health more than either alone. Electronically Signed On 08-30-2024 16:42:50 EDT by Kelvin Steiner
== END 2024-09-18 14:57 | disposition home or self-care (01) ==
LOC: CR 13:53
PROVIDERS: PCP Internal Medicine; Visit Provider Internal Medicine
DX: I50.9 Heart failure, unspecified (principal); Z95.2 Presence of prosthetic heart valve
CPT/HCPCS: 93798

== ENCOUNTER 2024-10-09 17:08 | Emergency (ER) | payer MEDICARE, SELFPAY ==
[2024-10-09] VITALS (20 sets, daily range): BP systolic 129–153; BP diastolic 41–73; PULSE 63–76; TEMP 36.4–36.6; O2SAT 95–100; BMI 27.9
--- NOTE | 2024-10-09 17:19 | ECG_ITS ---
[facility] Test Date: 2024-10-09 Pat Name: SHAHID SANCHEZ Department: Room: - Gender: Male Cleaner Signs: : 1940 Requested By: MARYLIN RAYMUNDO Order Number: [id number] Reading MD: CAROLA ENGEL Measurements Intervals [place] Rate: 69 P: -[id number] MD: -[id number] QRS: -74 QRSD: 150 T: 92 QT: 412 QTc: 431 Interpretive Statements ATRIAL FIBRILLATION 1574 with frequent ventricular premature complexes 2330 Nonspecific intraventricular conduction block 60180 Possible Inferior myocardial infarction with posterior extension cannot be excluded 9150 abnormal ECG Compared to ECG 10/22/2021 12:13:23 Ventricular premature complex(es) now present Myocardial infarct finding now present Right bundle-branch block no longer present Left-axis deviation no longer present Electronically Signed On 10-11-2024 13:27:24 EDT by CAROLA ENGEL
--- NOTE | 2024-10-09 17:26 | ED.GENADUL1 ---
HPI HPI - General Adult General Chief complaint: Fall Stated complaint: FALL/ BACK PAIN Time Seen by Provider: 10/09/24 17:15 Source: patient Mode of arrival: Wheelchair Limitations: no limitations History of Present Illness HPI narrative: 84-year-old male presented because his legs gave out and he almost fell. Somebody caught him. He states that this happens from time to time. He states when he was going to physical therapy it did not happen but 3 weeks ago when he stopped it started up again and it happened 3 times. He did not pass out or nearly passed out. There was no injury. He states he gets back injections for this issue. No chest pain or shortness of breath. Related Data Home Medications ?Medication ?Instructions ?Recorded ?Confirmed exenatide microspheres 2 mg/0.85 mg subcut 05/16/23 mL subcutaneous auto-injector ([employer]) levothyroxine 50 mcg tablet mcg 05/16/23 metformin 850 mg tablet mg 05/16/23 rosuvastatin 10 mg tablet mg 05/16/23 sacubitril 24 mg-valsartan 26 mg tab 05/16/23 tablet (Entresto) tamsulosin 0.4 mg capsule 0.4 mg PO BEDTIME 05/16/23 10/09/24 apixaban 2.5 mg tablet (Eliquis) 2.5 mg PO Q12H 10/09/24 10/09/24 bumetanide 2 mg tablet 2 mg PO .DAILY IN AM 10/09/24 10/09/24 dutasteride 0.5 mg capsule 0.5 mg PO DAILY 10/09/24 10/09/24 famotidine 40 mg tablet 40 mg PO BEDTIME 10/09/24 10/09/24 finerenone 20 mg tablet (Kerendia) 20 mg PO DAILY 10/09/24 10/09/24 fluticasone fur. 100 mcg-umeclid 1 inh inhalation DAILY 10/09/24 10/09/24 62.5 mcg-vilant 25 mcg inhalat.powder (Trelegy Ellipta) levothyroxine 75 mcg tablet 75 mcg PO DAILY 10/09/24 10/09/24 methotrexate sodium 2.5 mg tablet mg 10/09/24 metoprolol succinate 25 mg 25 mg PO DAILY 10/09/24 10/09/24 tablet,extended release 24 hr montelukast 10 mg tablet 10 mg PO DAILY 10/09/24 10/09/24 pantoprazole 40 mg tablet,delayed 40 mg PO DAILY 10/09/24 10/09/24 release polysaccharide iron complex 180 mg 180 mg PO DAILY 10/09/24 10/09/24 iron capsule (Pro Fe) rosuvastatin 5 mg tablet 5 mg PO DAILY 10/09/24 10/09/24 semaglutide 2 mg/dose (8 mg/3 mL) 2 mg subcut .WEEKLY 10/09/24 10/09/24 subcutaneous pen injector (Ozempic) spironolactone 25 mg tablet 25 mg PO Q12H 10/09/24 10/09/24 vericiguat 10 mg tablet (Verquvo) 10 mg PO DAILY 10/09/24 10/09/24 Previous Rx's ?Medication ?Instructions ?Recorded hydrocodone 5 mg-acetaminophen 325 1 tab PO Q4H PRN pain #10 tabs 10/18/23 mg tablet methocarbamol 500 mg tablet 500 mg PO Q8H PRN muscle pain #10 10/18/23 tabs Allergies Allergy/AdvReac Type Severity Reaction Status Date / Time No Known Drug Allergies Allergy Verified 10/09/24 17:20 Opioid HPI Opioid Management Most Recent Opioid Data: Last Pain Scale 10 10/18/23, 11:00 Review of Systems ROS Narrative A ten point review of systems is negative except as noted above. PFSH PFSH Social History Smoking status: Former smoker Little interest or pleasure in doing things: not at all Feeling down, depressed, or hopeless: not at all Exam Narrative Exam Narrative: Nurses note and vital signs reviewed and patient is not hypoxic. General: The patient appears well and in no apparent distress. Patient is resting comfortably on cart. Skin: Warm, dry, no pallor noted. There is no rash noted. Head: Normocephalic, atraumatic Eye: Normal conjunctiva, no drainage Ears, Nose, Mouth, and Throat: oral mucosa is moist. Nares patent. Cardiovascular: Regular Rate and Rhythm Respiratory: Patient is in no distress, no accessory muscle use, lungs are clear to auscultation, no wheezing, rales or rhonchi Back: non-tender GI: Soft obese and nontender Musculoskeletal: The patient has no evidence of calf tenderness, bilateral lower extremity edema, symmetrical pulses noted bilaterally Neurological: A&O x4, normal speech Psychiatric: Cooperative Constitutional Vital Signs, click to edit/add: Last Vital Signs Temp 97.6 F 10/09/24 17:15 Pulse 71 10/09/24 18:50 Resp 27 H 10/09/24 18:50 BP 144/63 H 10/09/24 17:28 Pulse Ox 96 10/09/24 18:50 O2 Del Method Nasal Cannula 10/09/24 17:38 O2 Flow Rate 3 10/09/24 17:38 Course Vital Signs Vital signs: Vital Signs Temperature 97.6 F 10/09/24 17:15 Pulse Rate 71 10/09/24 17:15 Respiratory Rate 16 10/09/24 17:15 Blood Pressure 139/61 10/09/24 17:15 Pulse Oximetry 95 10/09/24 17:15 Oxygen Delivery Method Nasal Cannula 10/09/24 17:15 Oxygen Delivery Flow Rate 3 10/09/24 17:15 Temperature 97.6 F 10/09/24 17:15 Pulse Rate 71 10/09/24 18:50 Respiratory Rate 27 H 10/09/24 18:50 Blood Pressure 144/63 H 10/09/24 17:28 Pulse Oximetry 96 10/09/24 18:50 Oxygen Delivery Method Nasal Cannula 10/09/24 17:38 Oxygen Delivery Flow Rate 3 10/09/24 17:38 Medical Decision Making MDM Narrative Medical decision making narrative: Hemoglobin is 7.4 and he positive stool is identified. He was given IV Protonix. I spoke to our hospitalist who request transfer to [facility] and this will be initiated. The patient is signed out to Dr. Arora at change of shift. Lab Data Lab results reviewed: Yes I reviewed the patient's lab results Labs: Lab Results 10/09/24 10/09/24 Range/Units 17:30 18:30 WBC 5.3 (4.0-11.0) 10^3/uL RBC 2.44 L (4.70-6.10) 10^6/uL Hgb 7.4 L (14.0-18.0) g/dL Hct 22.8 L* (42.0-54.0) % MCV 93.4 (80.0-94.0) fL MCH 30.3 (25.9-34.0) pg MCHC 32.5 (29.9-35.2) g/dL RDW 16.3 H (11.0-15.0) % Plt Count 182 (150-450) 10^3/uL MPV 10.3 (9.5-13.5) fL Neut % (Auto) 75.5 H (43.0-75.0) % Lymph % (Auto) 13.7 L (20.5-60.0) % [place] % (Auto) 8.3 (1.7-12.0) % Eos % (Auto) 1.9 (0.9-7.0) % Baso % (Auto) 0.4 (0.2-2.0) % Neut # (Auto) 4.0 (1.4-6.5) 10^3/uL Lymph # (Auto) 0.7 L (1.2-3.8) 10^3/uL [place] # (Auto) 0.4 (0.3-0.8) 10^3/uL Eos # (Auto) 0.1 (0.0-0.7) 10^3/uL Baso # (Auto) 0.0 (0.0-0.1) 10^3/uL Abs Immat Gran (auto) 0.01 (0.00-0.03) 10^3/uL Imm/Tot Granulo (auto) 0.2 (0.0-0.5) % Sodium 138 (136-145) mmol/L Potassium 4.3 (3.5-5.1) mmol/L Chloride 102 (98-107) mmol/L Carbon Dioxide 26.3 (21.0-32.0) mmol/L Anion Gap 14.0 BUN 35.0 H (7.0-18.0) mg/dL Creatinine 1.65 H (0.70-1.30) mg/dL Est GFR ( Amer) 49 L (>=60 mL/min/1.73m^2) Est GFR (Non-Af Amer) 40 L (>=60 mL/min/1.73m^2) BUN/Creatinine Ratio 21.2 Glucose 158 H (74-106) mg/dL Calcium 9.6 (8.5-10.1) mg/dL Troponin I High Sens 19.6 (4.0-76.1) pg/mL Stool Occult Blood Positive A ECG Data Attestation: I personally reviewed and interpreted this ECG as follows: (EKG on my interpretation shows atrial fibrillation with a rate of 69) Critical Care Time Critical Care Time Critical Care Time: Yes Total Critical Care Time: 35 Attestation: Due to the high probability of sudden and clinically significant deterioration in the patient's condition he/she required the highest level of my preparedness to intervene urgently I provided critical care time including documentation time, medication orders and management, reevaluation, vital sign assessment, ordering and reviewing of lab tests, ordering and reviewing of x-ray studies, and admission orders. Aggregate critical care time is 35 minutes including only time during which I was engaged in work directly related to his/her care and did not include time spent treating other patients simultaneously. Discharge Plan Discharge Chief Complaint: Fall Clinical Impression: Anemia, GI (gastrointestinal bleed) [facility]position: [facility] Time of Disposition Decision: 18:57 Discharge Location: [facility] Condition: Fair Mode of Transportation: EMS
--- NOTE | 2024-10-09 17:45 | XR_ITS ---
The [address] [address] Patient Name: SHAHID SANCHEZ MRN: [id number] date: 1940 Sex: M Assigned Patient Location: ED.MAIN Current Patient Location: ED.MAIN Accession/Order Number: [id number] Exam Date: 10/09/2024 18:36 Report Date: 10/09/2024 18:38 At the request of: HONEY CALI MD Procedure: XR chest 1V XR chest 1V 10/09/2024 5:45 PM SIGNS AND SYMPTOMS: ^weak ^Y PROTOCOL: Frontal radiograph of the chest COMPARISON: 08/17/2024 FINDINGS: The trachea is midline. There is a single lead pacer device on the left. Atherosclerotic changes are noted in the thoracic aorta. There is cardiomegaly. Chronic interstitial changes are noted. The lung parenchyma is clear, otherwise. The bony thorax is intact. Degenerative changes are noted in the shoulders and thoracic spine. XR/XR chest 1V IMPRESSION: There is cardiomegaly. Chronic interstitial changes are noted. The lung parenchyma is clear, otherwise. Impression dictated by: Adal Barlow M.D. 10/09/2024 6:38 PM Dictation Location: [place] [address] Electronically authenticated by: [id number] Y Date: 10/09/2024 18:38
[2024-10-09 18:10] LABS: Hemoglobin 7.4 g/dL (14.0-18.0); Immature Granulocytes Abs Auto 0.01 10^3/uL (0.00-0.03); Immature Granulocytes Pct Auto 0.2 % (0.0-0.5); Lymphocytes Absolute Auto 0.7 10^3/uL (1.2-3.8); Mean Corpuscular HGB Conc 32.5 g/dL (29.9-35.2); Mean Corpuscular Hemoglobin 30.3 pg (25.9-34.0); Mean Corpuscular Volume 93.4 fL (80.0-94.0); Platelet Count 182 10^3/uL (150-450); Red Blood Count 2.44 10^6/uL (4.70-6.10); White Blood Count 5.3 10^3/uL (4.0-11.0)
[2024-10-09 18:18] LABS: Hematocrit 22.8 % (42.0-54.0)
[2024-10-09 18:29] LABS: Anion Gap 14.0; Blood Urea Nitrogen 35.0 mg/dL (7.0-18.0); Calcium 9.6 mg/dL (8.5-10.1); Carbon Dioxide 26.3 mmol/L (21.0-32.0); Chloride 102 mmol/L (98-107); Estimated GFR (African America 49 (>=60 mL/min/1.73m^2); Estimated GFR (Non-African Ame 40 (>=60 mL/min/1.73m^2); Glucose 158 mg/dL (74-106); Potassium 4.3 mmol/L (3.5-5.1); Sodium 138 mmol/L (136-145)
[2024-10-09] MEDS: PANTOPRAZOLE SODIUM 40 MG VIAL IV (19:07)
--- NOTE | 2024-10-09 19:34 | ED.GENADUL1 ---
HPI HPI - General Adult General Chief complaint: Fall Stated complaint: FALL/ BACK PAIN Time Seen by Provider: 10/09/24 17:15 Source: patient Mode of arrival: Wheelchair Limitations: no limitations History of Present Illness HPI narrative: This 84-year-old male with a history of atrial fibrillation who is on Eliquis was signed out to me at shift change. He was brought to the emergency department after he became weak earlier today and felt like his legs were going to give out on him. He did not actually fall. He is awake alert oriented. Vital signs are stable. He has had a gradual decrease in his hemoglobin over the course of the last several months. He admits that intermittently he has blood in his stool and also has intermittent bouts of diarrhea. He does have a history of colon cancer and had a colon resection several years ago. He cannot recall exactly when that was. He has not had any trouble since that time. He discussed having a colonoscopy with his family physician but was told he would have to pay for it himself. He cannot recall the last time he had a follow-up colonoscopy. The patient admits that he has recently lost some weight but states that he was trying to lose weight. He is not having any abdominal pain. He denies any chest pain or shortness of breath. The case was discussed with [facility], Drew Rossi. The patient has not had a colonoscopy in many years. She feels that in light of his stable vital signs and hemoglobin of 7.4. He should be able to be transfused in the emergency department and discharged home with close follow-up. She took his information and her office will contact him for a colonoscopy in the near future, possibly next week. This plan was discussed with the patient and his family. He is agreeable to this and did not wish to be admitted to the hospital. Patient consented to a blood transfusion. Type and screen and crossmatch was ordered and he was transfused 1 unit of packed red blood cells without incident. Related Data Home Medications ?Medication ?Instructions ?Recorded ?Confirmed exenatide microspheres 2 mg/0.85 mg subcut 05/16/23 mL subcutaneous auto-injector ([employer]) levothyroxine 50 mcg tablet mcg 05/16/23 metformin 850 mg tablet mg 05/16/23 rosuvastatin 10 mg tablet mg 05/16/23 sacubitril 24 mg-valsartan 26 mg tab 05/16/23 tablet (Entresto) tamsulosin 0.4 mg capsule 0.4 mg PO BEDTIME 05/16/23 10/09/24 apixaban 2.5 mg tablet (Eliquis) 2.5 mg PO Q12H 10/09/24 10/09/24 bumetanide 2 mg tablet 2 mg PO .DAILY IN AM 10/09/24 10/09/24 dutasteride 0.5 mg capsule 0.5 mg PO DAILY 10/09/24 10/09/24 famotidine 40 mg tablet 40 mg PO BEDTIME 10/09/24 10/09/24 finerenone 20 mg tablet (Kerendia) 20 mg PO DAILY 10/09/24 10/09/24 fluticasone fur. 100 mcg-umeclid 1 inh inhalation DAILY 10/09/24 10/09/24 62.5 mcg-vilant 25 mcg inhalat.powder (Trelegy Ellipta) levothyroxine 75 mcg tablet 75 mcg PO DAILY 10/09/24 10/09/24 methotrexate sodium 2.5 mg tablet mg 10/09/24 metoprolol succinate 25 mg 25 mg PO DAILY 10/09/24 10/09/24 tablet,extended release 24 hr montelukast 10 mg tablet 10 mg PO DAILY 10/09/24 10/09/24 pantoprazole 40 mg tablet,delayed 40 mg PO DAILY 10/09/24 10/09/24 release polysaccharide iron complex 180 mg 180 mg PO DAILY 10/09/24 10/09/24 iron capsule (Pro Fe) rosuvastatin 5 mg tablet 5 mg PO DAILY 10/09/24 10/09/24 semaglutide 2 mg/dose (8 mg/3 mL) 2 mg subcut .WEEKLY 10/09/24 10/09/24 subcutaneous pen injector (Ozempic) spironolactone 25 mg tablet 25 mg PO Q12H 10/09/24 10/09/24 vericiguat 10 mg tablet (Verquvo) 10 mg PO DAILY 10/09/24 10/09/24 Previous Rx's ?Medication ?Instructions ?Recorded hydrocodone 5 mg-acetaminophen 325 1 tab PO Q4H PRN pain #10 tabs 10/18/23 mg tablet methocarbamol 500 mg tablet 500 mg PO Q8H PRN muscle pain #10 10/18/23 tabs Allergies Allergy/AdvReac Type Severity Reaction Status Date / Time No Known Drug Allergies Allergy Verified 10/09/24 17:20 Opioid HPI Opioid Management Most Recent Opioid Data: Last Pain Scale 10 10/18/23, 11:00 PFSH PFSH Social History Smoking status: Former smoker Little interest or pleasure in doing things: not at all Feeling down, depressed, or hopeless: not at all Exam Constitutional Vital Signs, click to edit/add: Last Vital Signs Temp 97.5 F L 10/10/24 00:42 Pulse 69 10/10/24 00:42 Resp 20 10/10/24 00:42 BP 139/61 10/10/24 00:42 Pulse Ox 98 10/09/24 21:48 O2 Del Method Nasal Cannula 10/09/24 21:48 O2 Flow Rate 2 10/09/24 21:48 Course Vital Signs Vital signs: Vital Signs Temperature 97.6 F 10/09/24 17:15 Pulse Rate 71 10/09/24 17:15 Respiratory Rate 16 10/09/24 17:15 Blood Pressure 139/61 10/09/24 17:15 Pulse Oximetry 95 10/09/24 17:15 Oxygen Delivery Method Nasal Cannula 10/09/24 17:15 Oxygen Delivery Flow Rate 3 10/09/24 17:15 Temperature 97.5 F L 10/10/24 00:42 Pulse Rate 69 10/10/24 00:42 Respiratory Rate 20 10/10/24 00:42 Blood Pressure 139/61 10/10/24 00:42 Pulse Oximetry 98 10/09/24 21:48 Oxygen Delivery Method Nasal Cannula 10/09/24 21:48 Oxygen Delivery Flow Rate 2 10/09/24 21:48 Medical Decision Making Lab Data Labs: Lab Results 10/09/24 10/09/24 10/09/24 Range/Units 17:30 18:30 20:14 WBC 5.3 (4.0-11.0) 10^3/uL RBC 2.44 L (4.70-6.10) 10^6/uL Hgb 7.4 L (14.0-18.0) g/dL Hct 22.8 L* (42.0-54.0) % MCV 93.4 (80.0-94.0) fL MCH 30.3 (25.9-34.0) pg MCHC 32.5 (29.9-35.2) g/dL RDW 16.3 H (11.0-15.0) % Plt Count 182 (150-450) 10^3/uL MPV 10.3 (9.5-13.5) fL Neut % (Auto) 75.5 H (43.0-75.0) % Lymph % (Auto) 13.7 L (20.5-60.0) % [place] % (Auto) 8.3 (1.7-12.0) % Eos % (Auto) 1.9 (0.9-7.0) % Baso % (Auto) 0.4 (0.2-2.0) % Neut # (Auto) 4.0 (1.4-6.5) 10^3/uL Lymph # (Auto) 0.7 L (1.2-3.8) 10^3/uL [place] # (Auto) 0.4 (0.3-0.8) 10^3/uL Eos # (Auto) 0.1 (0.0-0.7) 10^3/uL Baso # (Auto) 0.0 (0.0-0.1) 10^3/uL Abs Immat Gran (auto) 0.01 (0.00-0.03) 10^3/uL Imm/Tot Granulo (auto) 0.2 (0.0-0.5) % Sodium 138 (136-145) mmol/L Potassium 4.3 (3.5-5.1) mmol/L Chloride 102 (98-107) mmol/L Carbon Dioxide 26.3 (21.0-32.0) mmol/L Anion Gap 14.0 BUN 35.0 H (7.0-18.0) mg/dL Creatinine 1.65 H (0.70-1.30) mg/dL Est GFR ( Amer) 49 L (>=60 mL/min/1.73m^2) Est GFR (Non-Af Amer) 40 L (>=60 mL/min/1.73m^2) BUN/Creatinine Ratio 21.2 Glucose 158 H (74-106) mg/dL Calcium 9.6 (8.5-10.1) mg/dL Troponin I High Sens 19.6 (4.0-76.1) pg/mL Stool Occult Blood Positive A Blood Type AB Negative Antibody Screen Negative Crossmatch See Detail Discharge Plan Discharge Chief Complaint: Fall Clinical Impression: Anemia, GI (gastrointestinal bleed), Generalized weakness Patient Disposition: Home, Self-Care Time of Disposition Decision: 00:46 Condition: Fair Mode of Transportation: Private Vehicle Prescriptions / Home Meds: No Action metformin 850 mg tablet tamsulosin 0.4 mg capsule 0.4 mg PO BEDTIME levothyroxine 50 mcg tablet rosuvastatin 10 mg tablet Entresto 24-26 mg tablet Bydureon BCise 2 mg/0.85 mL auto-injector SUBCUT methocarbamol 500 mg tablet 500 mg PO Q8H PRN (Reason: muscle pain) Qty: 10 0RF hydrocodone-acetaminophen 5-325 mg tablet 1 tab PO Q4H PRN (Reason: pain) Qty: 10 0RF Eliquis 2.5 mg tablet 2.5 mg PO Q12H bumetanide 2 mg tablet 2 mg PO .DAILY IN AM dutasteride 0.5 mg capsule 0.5 mg PO DAILY famotidine 40 mg tablet 40 mg PO BEDTIME Kerendia 20 mg tablet 20 mg PO DAILY Trelegy Ellipta 100-62.5-25 mcg blister with device 1 inh INHALATION DAILY levothyroxine 75 mcg tablet 75 mcg PO DAILY methotrexate sodium 2.5 mg tablet metoprolol succinate 25 mg tablet extended release 24 hr 25 mg PO DAILY montelukast 10 mg tablet 10 mg PO DAILY pantoprazole 40 mg tablet,delayed release (DR/EC) 40 mg PO DAILY Pro Fe 180 mg iron capsule 180 mg PO DAILY rosuvastatin 5 mg tablet 5 mg PO DAILY Ozempic 2 mg/dose (8 mg/3 mL) pen injector 2 mg SUBCUT .WEEKLY spironolactone 25 mg tablet 25 mg PO Q12H Verquvo 10 mg tablet 10 mg PO DAILY Print Language: Italian Instructions: Gastrointestinal Bleeding (ED), Weakness (ED), Anemia (ED) Referrals: MARYLIN RAYMUNDO DO [Primary Care Provider, Family Practice] - 1 week Ly,Shabana Mcclendon DO [Physician] - As soon as possible Referral Note: Address: [address] [place] [address], [address] [place] [id number] Clinical Impression: GI (gastrointestinal bleed); Anemia
[2024-10-09] MEDS: IPRATROPIUM/ALBUTEROL SULFATE 3 ML AMPUL.NEB IH (21:45)
[2024-10-09] MEDS: 0.9 % SODIUM CHLORIDE 250 ML IV (22:45)
--- NOTE | 2024-10-09 23:19 | PC.NURSE ---
Blood and vitals were started at 224. It would not register the transfusion record
[2024-10-10 00:42] VITALS: BP 139/61; PULSE 69; TEMP 36.4
[2024-10-10 01:00] VITALS: BP 132/61; PULSE 69; TEMP 36.4
[2024-10-10 01:37] VITALS: BP 144/71; PULSE 69; TEMP 36.4; O2SAT 95
[2024-10-10 02:30] VITALS: BP 129/60; PULSE 69; TEMP 36.4
== END 2024-10-10 06:37 | disposition home or self-care (01) ==
PROVIDERS: Emergency Medicine; Emergency Provider Emergency Medicine; PCP Internal Medicine
DX: D64.9 Anemia, unspecified (principal); K92.2 Gastrointestinal hemorrhage, unspecified; R53.1 Weakness; I48.91 Unspecified atrial fibrillation; Z79.01 Long term (current) use of 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s; Z95.0 Presence of cardiac pacemaker; Z90.49 Acquired absence of other specified parts of digestive tract; Z85.038 Personal history of other malignant neoplasm of large intestine; Z87.891 Personal history of nicotine dependence
CPT/HCPCS: 36415; 36430; 71045; 80048; 84484; 85025; 86850; 86900; 86901; 93005; 94640; 96374; 99285; G0328; P9016; P9038

== ENCOUNTER 2024-10-30 10:31 | Outpatient (OUT) | payer MEDICARE, SELFPAY ==
--- OUTSIDE RECORDS SUMMARY | 2024-09-04 11:32 | XMS_ITS ---
Author Organization [facility] Address [address] [place] [address] Care Team Providers Care Biological Chemist Name Role Phone Al Martinez DO Primary Care Provider Kelvin Head [phone] REASON FOR VISIT Appointment Encounters Encounter Location Date Provider Diagnosis Pulmonary Medicine [place] [address] [place] [address] 09/04/2024 Kelvin Steiner Plan Of Treatment No Information Progress Notes * Bruno JAY FDOB:1940 (83 yo M)Acc No.[id number]:09/04/2024 Patient: Bruno PALACIOS :1940 A ge:83 Y S ex:Male Address:[address] [place] [address], [phone] Subjective: * Chief Complaints: * A ppointment * Medical History: * Surgical History: * Hospitalization/Major Diagno stic Procedure: * Medications: Objective: * Vitals: * Physical Examination: Assessment: Plan: * Treatment: * Procedure Codes: * true * Date: Generated for Printi ng/Faxing/eTransmitting on: 0 10/30/2024 10:38 AM EDT
--- OUTSIDE RECORDS SUMMARY | 2024-09-11 10:30 | XMS_ITS ---
Author Organization [facility] in [place] Address [address] [place] [address] Care Team Providers Care Electrical Manufacturing Technician Name Role Phone Al Martinez DO Primary Care Provider Unavail able Kelvin Steiner Unavailable [phone] Allergies No Known Allergies REASON FOR VISIT 4w F/U- O2, dyspnea, HRCT Medications Medication SIG (Take, Route, Frequency, Duration) Notes Start Date End Date Status Metoprolol Succinate ER 25 MG Oral for 90 Days Active ProFe 391.3 (180 Fe) MG TAKE 1 CAPSULE B Y MOUTH WITH dinner Oral for 90 Days Active Montelukast Sodium 10 MG TAKE 1 TABLET B Y MOUTH EVERY DAY Oral for 90 Days Activ e Pantoprazole Sodium 40 MG TAKE 1 TABLET BY MOUTH EVERY MORNING Oral for 90 Days Active Kerendia 20 MG Oral for 30 Days Active Levothyroxine Sodium 50 MCG Oral for 90 Days Active Famotidine 40 MG Oral for 90 Days Active Methotrexate Sodium 2.5 MG Oral for 84 Days Active metFORMIN HCl 850 MG TAKE 1 TABLET BY MO UTH ONCE DAILY BEFORE MEALS IN THE EVENING Oral for 90 Days Active Eliquis 5 MG TAKE 1 TABLET BY ROSA TH TWICE DAILY Oral for 90 Days Active Tamsulosin HCl 0.4 MG TAKE 1 CAPSULE BY MOUTH AT BEDTIME Oral for 90 Days Active Colesevelam HCl 625 MG take 6 tablets by mouth daily Oral for 90 Days Active Dutasteride 0.5 MG TAKE 1 TABLET EVERY DAY Oral for 90 Days Active Bydureon BCise 2 MG/0.85ML INJECT 2mg HERNANDEZ BCUTANEOUSLY (UNDER THE SKIN) ONCE A WEEK Subcutaneous for 28 Days Active Spironolactone 25 MG Oral for 90 Days Active Rosuvastatin Calcium 5 MG TAKE 1 TABLET BY MOUTH DAILY Oral for 90 Days Active Social History [...] Problem Status W/U Status Risk Notes Problem Centrilobular emphysema (54115038) Centrilobular emphysema (J43.2) Active confirmed Problem Left thyroid nodule (E04.1) Active confirmed Vital Signs Temperature 97.0 degrees Fahrenheit 09/12/19 25 Blood pressure systolic 106 mm Hg 09/12/19 25 Blood pressure diastolic 50 mm Hg 025 Heart Rate 69 /min 09/11/2024 Respiratory Rate 20 /min 09/11/2024 Height 72 in 09/11/2024 Weight 223.2 lbs 09/11/2024 BMI 30.27 kg/m2 09/11/2024 Oximetry 93 % 09/11/2024 4L O2 Activity/Resting Encounters Encounter Location Date Provider Diagnosis Pulmonary [facility] [address] [place] [address] 09/11/2024 Kelvin Steiner Chronic systolic CHF (congestive heart failure) I50.22 ; Centrilobular emphysema J43.2 ; Chronic respiratory failure with hypoxia J96.11 ; Left thyroid nodule E04.1 and RA (rheumatoid arthritis) M06.9 Assessments Encounter Date Diagnosis (ICD Code) Assessment Notes Treatment Notes Treatment Clinical Notes Section Notes 09/11/2024 Chronic systolic CHF (congestive heart failure) (ICD-10 - I50.22) Patient complains of dyspnea. No response to Trelegy (triple ICS/LABA/LAMA). HRCT suggests volume overload/CHF with bilateral pleural effusions, interstitial thickening, and borderline cardiomegaly. Worse BLE edema today on examination. Overall, appears majority of dyspnea is cardiac related. At this point, recommend returning to cardiology for continued treatment. At age 83, this may be his new baseline. F/U PRN 09/11/2024 Centrilobular emphysema (ICD-10 - J43.2) Emphysematous changes noted on HRCT, SHIVA > RUL. PFT trends towards mild obstruction, but had zero benefit from Trelegy suggesting COPD is not the predominant cause for his dyspnea. 09/11/2024 Chronic respiratory failure with hypoxia (ICD-10 - J96.11) Qdlx-vi-imlz encounter performed with the patient to document need to prescribe supplemental oxygen (O2). -Qualifying study: 6MW 08/03/2024 - --Resting on RA: SpO2 92% --Ambulating on RA: SpO2 87% --Ambulating on O2 3L/min: SpO2 83% -Flow & directions: 4L/min O2 -Counseled patient not begin, restart, or continue [...] led to the point of requiring O2. -Recommendations : Continue O2 @ 4L/min O2. 09/11/2024 Left thyroid nodule (ICD-10 - E04.1) HRCT 08/17/2024 notes a left thyroid hypodense region suggestive of nodule. Patient has history of hypothyroidism. Will defer to PCP for further w/up. 09/11/2024 RA (rheumatoid arthritis) (ICD-10 - M06.9) HRCT does not appear to have ILD associated with RA...appears more CHF-related. F/U with Dr. Bolton, for methotrexate and Remicade. 09/11/2024 Other Plan Of Treatment Medication Medication Name Sig Start Date Stop Date Notes Trelegy Ellipta 100-62.5-25 MCG/ACT 1 puff Inhalation Once a day 08/14/2024 Treatment Notes Assessment Notes Chronic systolic CHF (conges tive heart failure) Patient complains of dyspnea. No response to Trelegy (triple ICS/LABA/LAMA). HRCT suggests volume overload/CHF with bilateral pleural effusions, interstitial thickening, and borderline cardiomegaly. Worse BLE edema today on examination. Overall, appears majority of dyspnea is cardiac related. At this point, recommend returning to cardiology for continued treatment. At age 83, this may be his new baseline. F/U PRN Centrilobular emphysema Emphysematous changes noted on HRCT, SHIVA > RUL. PFT trends towards mild obstruction, but had zero benefit from Trelegy suggesting COPD is not the predominant cause for his dyspnea. Chronic respiratory failure with hypoxia Sohi-qk-qsue encounter performed with the patient to document need to prescribe supplemental oxygen (O2). -Qualifying study: 6MW 08/03/2024 - --Resting on RA: SpO2 92% --Ambulating on RA: SpO2 87% --Ambulating on O2 3L/min: SpO2 83% -Flow & directions: 4L/min O2 -Counseled patient not begin, restart, or continue [...] to the point of requiring O2. -Recommendations: Continue O2 @ 4L/min O2. Left thyroid nodule HRCT 08/17/2024 notes a left thyroid hypodense region suggestive of nodule. Patient has history of hypothyroidism. Will defer to PCP for further w/up. RA (rheumatoid arthritis) HRCT does not appear to have ILD associated with RA...appears more CHF-related. F/U with Dr. Bolton, for methotrexate and Remicade. Next Appt Details Follow Up: PRN, Reason: Progress Notes * Bruno JAY FDOB:1940 (83 yo M)Acc No.[id number]:09/11/2024 Follow Up Patient: Bruno PALACIOS Provider: Marc Steiner DO :1940 A ge:83 Y S ex:Male Date:09/11/2024 Address:[address] [place] [address] [place], [id number] Pcp:Al Martinez, DO Check In:02:16 PM ESTCheck O ut:02:59 PM EST Subjective: * Chief Complaints: * 4 w F/U- O2, dyspnea, HRCT * HPI: G eneral: Patient was seen for SOB. Borderline obstruction on spirometry with very severe diffusion impairment at 29% on prior PFT. He also has RA. Ordered HRCT to better evaluate. HRCT was done 08/17/2024 - I personally reviewed the imaging; I reviewed results with patient. There were bilateral xtkvq-kk-orbyxljp effusions, bilateral lower lobe interstitial thickening and borderline cardiomegaly - all which appear consistent with CHF (which he has known systolic CHF). There were additional areas of emphysema noted in the upper lung thomson, L > R. He was started on Trelegy 100 last visit. He has been on it for 3 weeks and has not noticed any significant improvement. Denies any adverse effects. Re-reviewed 6MW, PFT, and ABG. MA Intake Comments:. Patient presents for a follow-up. Patient is currently on 4L O2 at home. DME:[facility]. Patient states he wears 8L O2 at HS. Patient complains of SOB, Cough and mouth irritation. Patient states he rinses his mouth as he was advised after using Trelegy. Patient reports rare use of his rescue inhaler. Patient is under the care of [facility] & . * ROS: G eneral/Constitutional: Fever [...] C ardiovascular: Tachycardia d enies. E shellie a dmits. C hest pain d enies. P alpitations d enies. R espiratory: Chest tightness d enies. P leurisy D enies. D yspnea w ith exertion. C ough p roductive, clear. H emoptysis d enies. W heezing d enies. G astrointestinal: Acid Reflux/GERD/Heartburn s ometimes. M usculoskeletal: Arthralgias/joint pain A dmits. S kin: Easy bruising d enies. R mario alberto d enies. ? N eurologic: Dizziness/Lightheadedness ? orthostatic hypotension. S eizures d enies. T remor d enies. H ematology: Abnormal Bleeding d enies. P sychiatric: Anxiety d enies. * Active Problem List J43.2 Centrilobular emphys maeve Modified On:09/11/2024 Status:confirmed J96.11 Chronic respiratory failure with hypoxia Modified On:08/14/2024 Status:confirmed I25.10 CAD (coronary artery disease) Modified On:07/17/2024 Status:confirmed K44.9 Hiatal hernia Modified On:07/17/2024 Status:confirmed M06.9 RA (rheumatoid arthr itis) Modified On:07/17/2024 Status:confirmed E11.9 DM2 (diabetes [facility], type 2) Modified On:07/17/2024 Status:confirmed J90 Pleural effusion Modified On:07/17/2024 Status:confirmed E04.1 Left thyroid nodule Modified On:09/11/2024 Status:confirmed I50.22 Chronic systolic CHF (congestive heart failure) Modified On:07/17/2024 Status:confirmed 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 D rugs/Alcohol: D rugs H [...] 1 CAPSULE BY MOUTH AT BEDTIME Oral Trelegy Ellipta(Znvjytdruqf-Stfnqfdng-Bcojav) 100-62.5-25 MCG/ACT Aerosol Powder Breath Activated 1 puff Inhalation Once a day Rinse after useMedication List reviewed and reconciled with the patientTaking Bydureon BCise 2 MG/0.85ML Auto-injector INJECT 2mg [...] CAPSULE BY MOUTH AT BEDTIME Oral Taking Trelegy Ellipta(Tkhedkntfbn-Qoeshwlsv-Djhubx) 100-62.5-25 MCG/ACT Aerosol Powder Breath Activated 1 puff Inhalation Once a day Rinse after useMedication List reviewed and reconciled with the patient * Allergies: N .K.D.A.no[Allergies Verified] Objective: * Vitals: W t:223.2lbs, Ht: 72 in, BP:sittin/50mm Hg, Temp:Forehead:97.0F, HR: 77 /min,69/min, RR:20/min, BMI:30.27Index, Oxygen sat %: Oxygen 4l:82 %,Oxygen 4l:93%, Ht-cm: 182.88 cm, Wt-k.24 kg. 4L O2 Activity/Resting. * Examination: E xam: GENERAL APPEARANCE: A ppears stated age. Skin N ormal. Mouth P ink and moist. Dentures. Oropharynx M allampati Class III. Trachea M idline. Chest N ormal. Respiratory Normal M ovements, E ffort N ormal. Auscultation U nchanged breath sounds - diminished but clear to auscultation. Percussion M ild dullness in extreme bases. Egophony N o egophony. Fremitus D ecreased tactile fremitus in the bases. Cardiac I rregularly irregular. Gastrointestinal N ormal. Vascular 1 + pitting edema. Musculoskeletal U sing a wheeled walker. Neurological F ocal, intact. Psychiatric A lert and oriented x3. Mentation/Cognition N ormal. Assessment: * Assessment: 1. C hronic systolic CHF (congestive heart failure) - I50.22 (Primary) 2 . C entrilobular emphysema - J43.2 3 . C hronic respiratory failure with hypoxia - J96.11 4 . L eft thyroid nodule - E04.1 5 . R A (rheumatoid arthritis) - M06.9 Plan: * Treatment: 2. C entrilobular emphysema Stop Trelegy Ellipta Aerosol Powder Breath Activated, 100-62.5-25 MCG/ACT, 1 puff, Inhalation, Once a day Rinse after use. Notes: Emphysematous changes noted on HRCT, SHIVA > RUL. PFT trends towards mild obstruction, but had zero benefit from Trelegy suggesting COPD is not the predominant cause for his dyspnea. 3. C hronic respiratory failure with hypoxia Notes: Liiq-rf-srfq encounter performed with the patient to document need to prescribe supplemental oxygen (O2). -Qualifying study: 6MW 08/03/2024 - --Resting on RA: SpO2 92% --Ambulating on RA: SpO2 87% --Ambulating on O2 3L/min: SpO2 83% -Flow & directions: 4L/min O2 -Counseled patient not begin, restart, or continue [...] to the point of requiring O2. -Recommendations: Continue O2 @ 4L/min O2. 4. L eft thyroid nodule Notes: HRCT 08/17/2024 notes a left thyroid hypodense region suggestive of nodule. Patient has history of hypothyroidism. Will defer to PCP for further w/up. 5. R A (rheumatoid arthritis) Notes: HRCT does not appear to have ILD associated with RA...appears more CHF-related. F/U with Dr. Bolton, for methotrexate and Remicade. * Procedure Codes: * Preventive Medicine: COVID Vaccination: H as [...] tobacco use and urged to quit. 0 09/11/2024 Former Education on smoking effects provided?09/11/2024 Former B VT ACTION PLAN Above Normal BMI Follow-up D ietary management education, guidance, and counseling * Follow Up: P RN * * Sign off status: Completed Visit Status: C HK (Check Out) true * Provider: Marc Steiner DO Date: 0 09/11/2024 Generated for Bennett cabral/Autumn/eTransmitting on: 0 10/30/2024 10:37 AM EDT History and Physical Notes * HPI (History of Present Illness) Category Sub-Category Detail Notes Category Not es General Patient present s for a follow-up. Patient is currently on 4L O2 at home. DME:[facility]. Patient states he wears 8L O2 at HS. Patient complains of SOB, Cough and mouth irritation. Patient states he rinses his mouth as he was advised after using Trelegy. Patient reports rare use of his rescue inhaler. Patient is under the care of [facility] & . Examination Category Sub-Category Detail Notes Category Not es Exam GENERAL APPEARANCE: Appears stated age Skin Normal Mouth [place] and moist. [place] ures Trachea Midline Chest Normal Respiratory Normal Movements, Ef fort Normal Auscultation Unchanged breath jeff nds - diminished but clear to auscultation Percussion Mild dullness in ext augie bases Egophony No egophony Bronchophony Fremitus Decreased tactile fr emitus in the bases Cardiac Irregularly irregula r Gastrointestinal Normal Vascular 1+ pitting edema Musculoskeletal Using a wheeled walk er Neurological Focal, intact Psychiatric Alert and oriented x 3 Mentation/Cognition Normal Oropharynx Mallampati Class III
--- OUTSIDE RECORDS SUMMARY | 2024-10-17 09:52 | XMS_ITS ---
Author Organization [facility] in [place] Address [address] [place] [address] Care Team Providers Care Bag Printer Name Role Phone Al Martinez DO Primary Care Provider Kelvin Head Unavailable [phone] REASON FOR VISIT Oxygen/Letter Encounters Encounter Location Date Provider Diagnosis Pulmonary Medicine [facility] [address] [place] [address] 10/17/2024 Kelvin Steiner Plan Of Treatment No Information Progress Notes * Bruno JAY FDOB:1940 (84 yo M)Acc No.[id number]:10/17/2024 Patient: Bruno PALACIOS :1940 A ge:84 Y S ex:Male Address:[facility], [address] * true * Date: Generated for Bennett cabral/Autumn/eTransmitting on: 0 10/30/2024 10:38 AM EDT
--- OUTSIDE RECORDS SUMMARY | 2024-10-30 10:38 | XMS_ITS | Patient Health Record ---
Author Organization [facility] in [place] Address [address] [place] [address] Care Team Providers Care Phone Counselor Name Role Phone Al Raymundo DO Primary Care Provider Unavail Helen Delong Unavailable [phone] Allergies No Known Allergies Results Component Value Reference Range Notes ITP Reviewed date:07/26/2024 02:48:32 PM Interpretation: Performing Lab: Notes/Report: Source Facility: [place] [address] Cardiac Rehab Report Signed Patient: SHAHID JAY MR#: [id number] : 1940 Acct:[id number] Age/Sex: 83 / M ADM Date: 07/26/24 Loc: CR Attending Dr: AL RAYMUNDO D.O. Ordering Physician: Helen Casas D.O. Date of Service: 07/26/24 Procedure(s): ITP Accession Number(s): [id number] cc: [facility] Test Date: 2024-07-26 Pat Name: SHAHID JAY Department: Room: - Gender: Male Supervisor Heading: : 1940 Requested By: Helen Casas Order Number: [id number] Chastity MD: Helen Casas Interpretive Statements Continue to [...] Helen Casas D.O. Signed By: 07/26/24 1434 07/26/241433 DD/ TD/TT: [employer] Crewmember: [place] [address] Cardiac Rehab Report Signed Patient: SHAHID JAY MR#: [id number] : 1940 Acct:[id number] Age/Sex: 83 / M ADM Date: 07/26/24 Loc: CR Attending Dr: ELLI RAYMUNDO D.O. Ordering Physician: Helen Casas D.O. Date of Service: 07/26/24 Procedure(s): ITP Accession Number(s): [id number] cc: [facility] Test Date: 2024-07-26 Pat Name: SHAHID Lock Department: 94 Room: - Gender: Male Supervisor Heading: : 1940 Requ ested By: Helen Casas Order Number: [id number] Reading MD: Helen Casas Interpretive Statements Continue [...] Marc Casas D.O. Signed By: 07/26/24 1434 07/26/241433 DD/ 0747 TD/TT: [employer] Crewmember: JENNIFER chest 2V Reviewed date:08/01/2024 02:59:55 PM Interpretation: Performing Lab: Notes/Report: Source Facility: [place] [address] [place] [address] XRay Report Signed Patient: SHAHID JAY MR#: [id number] : 1940 Acct:[id number] Age/Sex: 83 / M ADM Date: 08/01/24 Loc: RAD Attending Dr: Helen Casas D.O. Ordering Physician: Helen Casas D.O. Date of Service: 08/01/24 Procedure(s): XR chest 2V Accession Number(s): [id number] cc: Helen Casas D.O.; AL RAYMUNDO D.O. [place] [id number] Patient Name: SHAHID JAY MRN: [facility]:[id number] date: 1940 Sex: M Assigned Patient Location: RAD Current Patient Location: RAD Accession/Order Number: [id number] Exam Date: 08/01/2024 14:29 Report Date: 08/01/2024 [...] Jr., D.O. 08/01/2024 2:30 PM Dictation Location: [place] [address] Electronically authenticated by: [id number] Y Date: 08/01/2024 14:30 Dictated By: Ricardo Francisco M.D. Signed By: 08/01/24 1433 DD/ 1430 TD/TT: [employer] Crewmember: [place] [address] XRay Report Signed Patient: SHAHID JAY MR#: [id number] : 1940 Acct:[id number] Age/Sex: 83 / M ADM Date: 08/01/24 Loc: RAD Attending Dr: Helen Casas D.O. Ordering Physician: Helen Casas D.O. Date of Service: 08/01/24 Procedure(s): XR chest 2V Accession Number(s): [id number] cc: Helen Casas D.O; AL RAYMUNDO D.O. The [address] [address] Patient Name: SHAHID JAY MRN: [id number] date: 1940 Sex: M Assigned Patient Location: [facility] Current Patient Loca tion: RAD Accession/Order Numb er: [id number] Exam Date: 08/01/2024 14:29 Report Date: 08/01/2024 [...] PNEUMONIA. Impression dictated by: Ricardo Francisco Jr., D.ODorcas 08/01/2024 2:30 PM Dictation Location: [place] [address] Electronically authenticated by: [id number] Y Date: 08/01/2024 14:30 Dictated By: Ricardo Francisco M.D. Signed By: 08/01/24 1433 DD/ 1430 TD/TT: [employer]member: HEMOGLOBIN Reviewed date:08/07/2024 07:41:16 AM Interpretation: Performing Lab: Notes/Report: [facility] , Hemoglobin 10.0 14.0-18.0 g/dL Performing Lab: see note ML - The [facility] LB CT Chest High Resolution Reviewed date:08/17/2024 02:56:29 PM Interpretation: Performing Lab: Notes/Report: BLOOD GASES BTY Reviewed date:08/14/2024 03:13:08 PM Interpretation: Performing Lab: Notes/Report: [facility] , pH ABG 7.461 7.350-7.450 ABG PCO2 31.7 35.0-45.0 mmHg PO2 ABG 50.3 80.0-100.0 mmHg RESULTS CALL ED TO WENDY COLLADO RRT at 1404 HCO3 ABG 22.6 22.0-26.0 mmol/L Base Excess ABG -1.2 -2.0-2.0 mmol/L Oxygen Saturation ABG 87.3 Frandy Test POSITIVE POSITIVE O2 Mode ROOM AIR Puncture Site RT BRACH Performing Lab: see note ML - The [facility] LB CT chest high res Reviewed date:08/22/2024 08:00:51 AM Interpretation: Performing Lab: Notes/Report: Source Facility: [facility]-[address] [place] [address] [place] [address] CT Scan Report Signed Patient: SHAHID JAY MR#: [id number] : 1940 Acct:[id number] Age/Sex: 83 / M ADM Date: 08/17/24 Loc: CT Attending Dr: Helen Casas D.O. Ordering Physician: Helen Casas D.O. Date of Service: 08/17/24 Procedure(s): CT chest high res Accession Number(s): [id number] cc: AL RAYMUNDO D.O. [place] [address] Patient Name: SHAHID JAY MRN: [id number] date: 1940 Sex: M Assigned Patient Location: CT Current Patient Location: CT Accession/Order Number: [id number] Exam Date: 08/17/2024 14:11 Report Date: 08/17/2024 14:20 At the request of: HELEN CASAS DO Procedure: CT chest high res HIGH RESOLUTION CT CHEST WITHOUT CONTRAST CLINICAL DATA: Suspected failure on recent chest x-ray COMPARISON: Chest x-ray 08/01/2024 Spiral axial unenhanced images were obtained through the chest. Images were reconstructed at 1 mm sections at 10 mm increments. High-resolution imaging was also performed in the prone position. Images were evaluated using both narrow and wide window settings. This CT exam was performed using one or more following dose reduction techniques: Automated exposure control, adjustment of the mA and/or kV according to patient size, or use of iterative reconstruction technique. The heart is borderline prominent. There is no pericardial effusion. Coronary artery disease is seen. There is an aortic valve. There is no aortic aneurysm. There is plaque at the aortic arch, descending aorta and proximal great vessels. There is asymmetric enlargement of the left thyroid lobe where there may be a hypodense nodule. A left-sided pacemaker is identified. There are small scattered mediastinal lymph nodes. There is slight thoracolumbar dextroscoliotic curvature as well as moderate endplate spurring at the spine. There are small to moderate size layering pleural effusions. There is obstructive lung disease with airspace lucencies. There is interstitial thickening, greater at the lower lungs. There may be some scarring or atelectasis. There is no focal consolidation or pneumothorax. Limited imaging through the upper abdomen shows adrenal limb thickening on the left and nodularity on the right. There is a small amount of perihepatic fluid. CT/CT chest high res IMPRESSION: BORDERLINE CARDIOMEGALY WITH INTERSTITIAL CHANGES AND SMALL EFFUSIONS. FAILURE IS POSSIBLE. OBSTRUCTIVE LUNG DISEASE. Impression dictated by: Stella Kramer M.D. 08/17/2024 2:20 PM Dictation Location: [place] [address] Electronically authenticated by: [id number] Y Date: 08/17/2024 14:20 Dictated By: Stella Kramer M.D. Signed By: 08/17/24 142 DD/ 19 TD/TT: [employer] Crewmember: [place] [address] CT Scan Report Signed Patient: SHAHID JAY MR#: [id number] : 1940 Acct:[id number] Age/Sex: 83 / M ADM Date: 08/17/24 Loc: CT Attending Dr: Helen Casas D.O. Ordering Physician: Helen Casas D.O. Date of Service: 08/17/24 Procedure(s): CT erin st high res Accession Number(s): [id number] cc: AL RAYMUNDO D.O. [address] [address] Patient Name: SHAHID JAY MRN: [id number] date: 1940 Sex: M Assigned Patient Location: CT Current Patient Loca tion: CT Accession/Order Numb er: [id number] Exam Date: 08/17/2024 14:11 Report Date: 08/17/2024 14:20 At the request of: HELEN CASAS DO Procedure: CT chest high res HIGH RESOLUTION CT C HEST WITHOUT CONTRAST CLINICAL DATA: Suspe cted failure on recent chest x-ray COMPARISON: Chest x- ray 08/01/2024 Spiral axial unenhan eric images were obtained through the chest. Images were reconstructed at 1 m m sections at 10 mm increments. High-resolution imaging was also performed i n the prone position. Images were evaluated using both narrow and wide wind ow settings. This CT exam was performed using one or more following dose reduc tion techniques: Automated exposure control, adjustment of the mA and/or kV according to patient size, or use of iterative reconstruction technique. The heart is borderl ine prominent. There is no pericardial effusion. Coronary artery dise ase is seen. There is an aortic valve. There is no aortic aneurysm. The re is plaque at the aortic arch, descending aorta and proximal great vesse ls. There is asymmetric enlargement of the left thyroid lobe where there may be a hypodense nodule. A left-sided pacemaker is identified. There ar e small scattered mediastinal lymph nodes. There is slight thoracolumbar dextroscoliotic curvature as well as moderate endplate spurring at the spine. There are small to moderate size layering pleural effusions. There is obstructive lung dis ease with airspace lucencies. There is interstitial thickening, greater at the lower lungs. There may be some scarring or atelectasis. There i s no focal consolidation or pneumothorax. Limited imaging thro ugh the upper abdomen shows adrenal limb thickening on the left and nodularity on the right. There is a small amount of perihepatic fluid. C T/CT chest high res IMPRESSION: BORDERLINE CARDIOMEG PACO WITH INTERSTITIAL CHANGES AND SMALL EFFUSIONS. FAILURE IS POSSIBLE. OBSTRUCTIVE LUNG DISEASE. Impression dictated by: Stella Kramer M.D. 08/17/2024 2:20 PM Dictation Location: [place] [address] Electronically authenticated by: [id number] Y Date: 08/17/2024 14:20 Dictated By: Stella Kramer M.D. Signed By: 08/17/24 1423 DD/ 1420 TD/TT: [employer] Crewmember: RT pulmonary function test Reviewed date:08/07/2024 10:34:54 AM Interpretation: Performing Lab: Notes/Report: Source Facility: [facility]-[address] [place] [address] [place] [id number] Respiratory Report Signed Patient: SHAHID JAY MR#: [id number] : 1940 Acct:[id number] Age/Sex: 83 / M ADM Date: 08/03/24 Loc: CARD Attending Dr: Helen Casas D.O. Ordering Physician: Helen Casas D.O. Date of Service: 08/03/24 Procedure(s): RT pulmonary function test Accession Number(s): [id number] cc: [facility] Test Date: 2024-08-03 Pat Name: SHAHID JAY Department: Room: - Gender: Male Supervisor Heading: Wendy Collado RRT : 1940 Requested By: Helen Casas Order Number: [id number] Reading MD: Helen Casas Interpretive Statements Pulmonary [...] By: 08/07/24 0808/07/24 08 DD/ 1432 TD/TT: [employer] Crewmember: The [address] [address] Respiratory Report Signed Patient: SHAHID JAY MR#: [id number] : 1940 Acct:[id number] Age/Sex: 83 / M ADM Date: 08/03/24 Loc: CARD Attending Dr: Helen Casas D.O. Ordering Physician: Helen Casas D.O. Date of Service: 08/03/24 Procedure(s): RT pulmonary function test Accession Number(s): [id number] cc: [facility] Test Date: 2024-08-03 Pat Name: SHAHID Lock Department: 94 Room: - Gender: Male Technic mariaa: Wendy Collado RRT : 1940 Requ ested By: Helen Casas Order Number: [id number] Reading MD: Helen Casas Interpretive Statements Pulmonary [...] 08/07/24 0801 08/07/24 08 DD/ 1432 TD/TT: [employer] Crewmember: XR Chest PA and Lateral (Rou anderson CXR) * Reviewed date:08/01/2024 03:40:54 PM Interpretation: Performing Lab: Notes/Report: ITP Reviewed date:09/20/2024 07:47:47 AM Interpretation: Performing Lab: Notes/Report: Source Facility: [place] [address] [place] [address] Cardiac Rehab Report Signed Patient: SHAHID JAY MR#: [id number] : 1940 Acct:[id number] Age/Sex: 83 / M ADM Date: 09/18/24 Loc: CR Attending Dr: AL RAYMUNDO D.O. Ordering Physician: Helen Casas D.O. Date of Service: 09/18/24 Procedure(s): ITP Accession Number(s): [id number] cc: [facility] Test Date: 2024-09-18 Pat Name: SHAHID JAY Department: Room: - Gender: Male Supervisor Heading: : 1940 Requested By: Helen Casas Order Number: [id number] Reading MD: Helen Casas Interpretive Statements Patient has successfully completed the outlined treatment plan. He is encouraged to participate in phase 3. Electronically Signed On 09-20-2024 7:11:49 EDT by Hleen Casas Dictated By: Helen Casas D.O. Signed By: 09/20/24 0712 09/20/24 0712 DD/ 1446 TD/TT: [employer] Crewmember: [place] [address] Cardiac Rehab Report Signed Patient: SHAHID JAY MR#: [id number] : 1940 Acct:[id number] Age/Sex: 83 / M ADM Date: 09/18/24 Loc: CR Attending Dr: ELLI RAYMUNDO D.O. Ordering Physician: Helen Casas D.O. Date of Service: 09/18/24 Procedure(s): ITP Accession Number(s): [id number] cc: [facility] Test Date: 2024-09-18 Pat Name: SHAHID Lock Department: 94 Room: - Gender: Male Supervisor Heading: : 1940 Requ ested By: Helen Casas Order Number: [id number] Chastity MD: Helen Casas Interpretive Statements Patient has successf ully completed the outlined treatment plan. He is encouraged to partic ipate in phase 3. Electronically Jessica d On 09-20-2024 7:11:49 EDT by Helen Casas Dictated By: Marc Casas D.O. Signed By: 09/20/24 0712 09/20/24711 DD/ 1446 TD/TT: [employer] Crewmember: [employer] Reviewed date:08/30/2024 04:54:50 PM Interpretation: Performing Lab: Notes/Report: Source Facility: [place] [address] [place] [address] Cardiac Rehab Report Signed Patient: SHAHID JAY MR#: [id number] : 1940 Acct:[id number] Age/Sex: 83 / M ADM Date: 08/25/24 Loc: CR Attending Dr: AL RAYMUNDO D.O. Ordering Physician: Helen Casas D.O. Date of Service: 08/29/24 Procedure(s): PEMA Accession Number(s): [id number] cc: [facility] Test Date: 2024-08-29 Pat Name: SHAHID JAY Department: Room: - Gender: Male Supervisor Heading: : 1940 Requested By: Helen Casas Order Number: [id number] Chastity MD: Helen Casas Interpretive Statements Patient should complete phase 2 pulmonary rehabilitation. Using O2 in conjunction with cardiac rehabilitation can possibly improve his stamina and health more than either alone. Electronically Signed On 08-30-2024 16:42:50 EDT by Helen Casas Dictated By: Helen Casas D.O. Signed By: 08/30/24 1643 08/30/24 164 DD/ 1448 TD/TT: [employer] Crewmember: [place] [address] Cardiac Rehab Report Signed Patient: SHAHID JAY MR#: [id number] : 1940 Acct:[id number] Age/Sex: 83 / M ADM Date: 08/25/24 Loc: CR Attending Dr: ELLI RAYMUNDO D.O. Ordering Physician: Helen Casas D.O. Date of Service: 08/29/24 Procedure(s): ITP Accession Number(s): [id number] cc: [facility] Test Date: 2024-08-29 Pat Name: SHAHID Lock Department: 94 Room: - Gender: Male Supervisor Heading: : 1940 Requested By: Helen Casas Order Number: [id number] Reading MD: Helen Casas Interpretive Statements Patient should compl ete phase 2 pulmonary rehabilitation. Using O2 in conjunction with car diac rehabilitation can possibly improve his stamina and health more than eit her alone. Electronically Jessica d On 08-30-2024 16:42:50 EDT by Helen Casas Dictated By: Marc Casas D.O. Signed By: 08/30/24 1643 08/30/24 164 DD/ 1448 TD/TT: [employer] Crewmember: Reason For Referral No Information Medications Medication SIG (Take, Route, Frequency, Duration) Notes Start Date End Date Status Methotrexate Sodium 2.5 MG Oral for 84 Days Active Metoprolol Succinate ER 25 MG Oral for 90 Days Active metFORMIN HCl 850 MG TAKE 1 TABLET BY [facility] ONCE DAILY BEFORE MEALS IN THE EVENING Oral for 90 Days Active Colesevelam HCl [...] MOUTH DAILY Oral for 90 Days Active Montelukast Sodium 10 MG TAKE 1 TABLET B Y MOUTH EVERY DAY Oral for 90 Days Activ e Bydureon BCise 2 MG/0.85ML INJECT 2mg HERNANDEZ BCUTANEOUSLY (UNDER THE SKIN) ONCE A WEEK Subcutaneous for 28 Days Active Pantoprazole Sodium 40 MG TAKE 1 TABLET BY MOUTH EVERY MORNING Oral for 90 Days Active Kerendia 20 MG Oral for 30 Days Active Levothyroxine Sodium 50 MCG Oral for 90 Days Active Eliquis 5 MG TAKE 1 TABLET BY ROSA TH TWICE DAILY Oral for 90 Days Active Spironolactone 25 MG Oral for 90 Days Active Famotidine 40 MG Oral for 90 Days Active Tamsulosin HCl 0.4 MG TAKE 1 CAPSULE BY MOUTH AT BEDTIME Oral for 90 Days Active Immunizations Vaccine Route Administration Date Status Comme [facility] Pfizer Syringe Pre -Filled 30 mcg/0.3 mL [...] W/U Status Risk Notes Problem Centrilobular emphysema (93654436) Centrilobular emphysema (J43.2) Active confirmed Problem Chronic respiratory failure (52575737) Chronic respiratory failure with hypoxia (J96.11) Active confirmed Problem Coronary artery disease (72312775) CAD (coronary artery disease) (I25.10) Active confirmed Problem Hiatal hernia (87654229) Hiatal hernia (K44.9) Active confirmed Problem Rheumatoid arthritis (66145434) RA (rheumatoid arthritis) (M06.9) Active confirmed Problem Diabetes mellitus type 2 (disorder) (50043539) DM2 (diabetes mellitus, type 2) (E11.9) Active confirmed Problem Pleural effusion (98209755) Pleural effusion (J90) Active confirmed Problem Non-toxic single thyroid nodule (529838417) Left thyroid nodule (E04.1) Active confirmed Problem Chronic systolic heart failure (710252440) Chronic systolic CHF (congestive heart failure) (I50.22) Active confirmed Problem Secondary pulmonary hypertension (76269635) 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) Active confirmed Problem Chronic atrial fibrillation (248518816) Chronic atrial fibrillation (I48.20) Active confirmed Vital Signs Heart Rate 69 /min 09/11/2024 4L O2 Activity/ Resting Temperature 97.0 degrees Fahrenheit 09/11/2024 4L O 2 Activity/Resting Respiratory Rate 20 /min 09/11/2024 4L O2 Activ ity/Resting Blood pressure diastolic 50 mm Hg 09/11/2024 4L O2 Activity/Resting Oximetry 93 % 09/11/2024 4L O2 Activity/ Resting Height 72 in 09/11/2024 4L O2 Activity/ Resting Blood pressure systolic 106 mm Hg 09/11/2024 4L O 2 Activity/Resting Weight 223.2 lbs 09/11/2024 4L O2 Activity/ Resting BMI 30.27 kg/m2 09/11/2024 4L O2 Activity/ Resting Procedures Procedure Date Ordered Date Performed Result Body Sit e Six minute walk 07/17/2024 08/03/2024 N/A PFT (95333, 29736, 95541) 07/17/2024 08/03/2024 N/A ABG 08/02/2024 08/14/2024 N/A Inhaler Teaching/Aerosol-performed 08/14/2024 08/14/2024 N /A Encounters Encounter Location Date Provider Diagnosis Pulmonary [facility] [address] [place] [address] 07/06/2024 [facility] Pulmonary [facility] [address] [place] [address] 08/02/2024 [facility] Shortness of breath R06.02 [facility] [address] [place] [address] 08/15/2024 [facility] Pulmonary [facility] [address] [place] [address] 08/15/2024 [facility] Pulmonary [facility] [address] [place] [address] 08/17/2024 [facility] Pulmonary [facility] [address] [place] [address] 09/04/2024 [facility] Pulmonary [facility] [address] [facility] [place] [address] 10/17/2024 [facility] Pulmonary [facility] [address] [place] [address] 08/14/2024 [facility] Shortness of breath R06.02 ; Chronic respiratory failure with hypoxia J96.11 ; Abnormal CXR R93.89 ; RA (rheumatoid arthritis) M06.9 ; Chronic systolic CHF (congestive heart failure) I50.22 ; CAD (coronary artery disease) I25.10 and DM2 (diabetes mellitus, type 2) E11.9 [facility] [address] [place] [address] 09/11/2024 Helen Casas Chronic systolic CHF (congestive heart failure) I50.22 ; Centrilobular emphysema J43.2 ; Chronic respiratory failure with hypoxia J96.11 ; Left thyroid nodule E04.1 and RA (rheumatoid arthritis) M06.9 [facility] [address] [place] [address] 07/17/2024 Helen Casas Shortness of breath R06.02 ; Hypoxemia R09.02 [...] respiratory failure with hypoxia (ICD-10 - J96.11) Oqhp-kb-qesg encounter performed with the patient to document [...] Ordering HRCT to evaluate for any ILD. 09/11/2024 Chronic systolic CHF (congestive heart failure) [...] not the predominant cause for his dyspnea. 08/02/2024 Shortness of breath (ICD-10 - R06.02) 09/11/2024 Chronic respiratory failure with hypoxia (ICD-10 - J96.11) Qoym-op-tlbc encounter performed with the patient to document [...] O2. -Recommendations: Continue O2 @ 4L/min O2. 08/14/2024 Abnormal CXR (ICD-10 - R93.89) CXR [...] of worsening epistaxis. He is already using [facility] saline gel - I did recommend intranasal [...] CXR, ordering HRCT to evaluate for ILD. 09/11/2024 Left thyroid nodule (ICD-10 - E04.1) HRCT 08/17/2024 notes a left thyroid hypodense region suggestive of nodule. Patient has history of hypothyroidism. Will defer to PCP for further w/up. 09/11/2024 RA (rheumatoid arthritis) (ICD-10 - M06.9) HRCT does not appear to have ILD associated with RA...appears more CHF-related. F/U with Dr. Bolton, for methotrexate and Remicade. 08/14/2024 Chronic systolic CHF (congestive heart failure) [...] manage diabetes in this situation. 08/14/2024 Other 09/11/2024 Other Plan Of Treatment No Information Insurance Providers Payer Name Payer Address Payer Phone Subscriber Number Group Number Insured Name Patient Relationship to Insured Coverage Start Date Coverage End Date [place] [address] [place] [address] [id number] Misty Shahid Self - patient is the insured 7 [employer] MEDICARE ADVANTAGE [address] [address] [place] [address] [id number] Misty Shahid Self - patient is the insured Medical (General) History Medical History History ICD Code Centrilobular emphysema J43.2 Chronic respiratory failure with hypoxia J96.11 Chronic systolic CHF (congestive heart f ailure) I50.22 Pleural effusion J90 Hiatal hernia K44.9 CAD (coronary artery disease) I25.10 Other secondary pulmonary hypertension I 27.29 Chronic atrial fibrillation I48.20 AV node dysfunction I45.89 Diverticulosis K57.90 Lumbar spinal stenosis M48.061 Aortic stenosis Q25.3 HTN (hypertension) I10 DM2 (diabetes mellitus, type 2) E11.9 RA (rheumatoid arthritis) M06.9 Hypothyroidism E03.9 OA (osteoarthritis) M19.90 Left thyroid nodule E04.1 Right adrenal mass E27.9 History of colon cancer Z85.038 Surgical History Surgery Date(Month/Year) [facility] 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
--- OUTSIDE RECORDS SUMMARY | 2024-10-30 10:38 | XMS_ITS | Clinical Summary ---
Author Organization [facility] Address [address] [place] [address] Phone Care Team Providers Care Clinical Product Manager Name Role Phone RosalbaAl reilly Primary Care Provider [phone] Allergies No known active allergies Medications Bydureon BCise 2 mg/0.85 mL auto-injector Inject 2 mg under the skin 1 (one) time per week in the veneer manufacturer.. 3 Active oxyCODONE-acetami nophen (Percocet) 5-325 mg [...] mg) by mouth 4 times a week. [facility] [place] 1 4 [...] Sleep apnea 02/23/2023 Vitamin D deficiency 02/23/2023 prison current use of 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 therapy 1 04/25/2022 [...] Type Department Care Team Description 08/29/[address] [address] Vivian Mack LPN maemitesh 08/14/2024 Scanned Document [facility] [address] [place] [address] Scanning, Generic Provider from Last 3 Months Immunizations Immunization Administration Dates Next Due DTP 10/25/2020 Novel [id number], preservative-free 03/25 Pfizer COVID-19 vaccine, biv alent, [...] any time in the past 12 m [facility], were you homeless or living in [...] Description 11/08/2024 1:30 PM EDT Office Visit [facility] [address] [facility] 101 [place] [address] [place] [address] [place] [address] 11/10/2024 9:00 AM EDT Telemedicine [facility] [address] [facility] [address] [place] [address] 04/12/2025 1:40 PM EST Office Visit [facility] 7[address] [facility] 250 [place] [address] Aleida Valle MD 703 [facility] 2, [address] [place] [address] Health Maintenance Due Date Last Done Comments [...] 10/27, 11/11/2023, Additional history exists Influenza Vaccine (#1) 2024 03/25/2009 Echocardiogram 01/11/2025 01/12/2024, 10/27, 11/12/2023, [...] this topic Medical Devices Implanted Type Area Instructional Design Manager Device Identifier Shelf Expiration Date Model / Serial / Lot Base Plate Base Plate Bilatera l: Knee Cardiac Pacemaker Cardiac Pacemaker Chest Valve, Aortic, 34mm, Evolut Fx Transcatheter - [id number] - [id number] Implanted:Qty: 1 on 11/12/2023 by Milton Camejo MD at [facility] Heart Valve Repair N/A: Heart [employer] 08/19/2025 EVFXPLUS- 34 / [id number] / [id number] Procedures Procedure Name Priority Date/Time Associated Diagnosis Comments TRANSTHORACIC ECHO (TTE) COMPLETE Routine 01/12/2024 10:49 AM EDT Aortic stenosis, severe S/P TAVR (transcatheter aortic valve replacement) COMPREHENSIVE METABOLIC PANEL Routine 11/13/2023 10:35 AM EDT HEMOGLOBIN A1C Routine 11/01/2023 6:18 PM EDT TSH WITH REFLEX TO FREE T4 IF ABNORMAL Routine 11/01/2023 6:18 PM EDT from Last 3 Months or Most Recently Relevant to Health Maintenance Results * TRANSTHORACIC ECHO (TTE) COMPLETE (01/12/2024 10:49 AM EDT) [facility] Signature AV mn grad 10.0 mmHg SYNGO AV [...] Narrative SYNGO - 01/17/2024 3:44 PM EDT [address], [address] [place] [address] TRANSTHORACIC ECHOCARDIOGRAM REPORT Patient Name: SHAHID Hawyood Physician: [id number] Aleida Valle MD Study Date: 01/12/2024 Ordering Provider: [id number] KALANI MOLINA MRN/PID: [id number] Fellow: Nurse: Date of /Age: 7 1940 / 83 years Office Runner: Wen Ron RDCS, RDMS, RVT Gender: M Additional Staff: Height: 180.34 cm Admit Date: Weight: 90.27 kg Admission Status: Outpatient BSA / BMI: 2.10 m2 / 27.76 Department Location: [facility] Heart kg/m2 [place]ita Blood Pressure: 134 /62 mmHg Study Type: TRANSTHORACIC ECHO (TTE) COMPLETE Diagnosis/ICD: 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 Evolut FX #34, HX , AFib, CAD, CHF, HTN, DM, Pacemaker, Dilated CM, CPT Codes: Echo Complete w Full Doppler-[id number] Study Detail: The following Echo studies were [...] 0.7 m/s (0.6-0.9m/s) PV Max P.2 mmHg [id number] Aleida Valle MD Electronically signed on 01/17/2024 at 3:44:31 PM Final Procedure Note Aleida Valle MD - 01/17/[address], [address] [place] [address] TRANSTHORACIC ECHOCARDIOGRAM REPORT Patient Name: SHAHID JAY Chastity Physician: [id number] Krause Study Date: 01/12/2024 Ordering Provider: [id number] MOLINA MRN/PID: [id number] Fellow: Nurse: Date of /Age: 7 1940 / 83 years Office Runner: Alcides COPPOLA, MACKENZIE,RVT Gender: M Additional Staff: Height: 180.34 cm Admit Date: Weight: 90.27 kg Admission Status: Outpatient BSA / BMI: 2.10 m2 / 27.76 Department Location: [facility]/[address] Blood Pressure: 134 /62 mmHg Study Type: TRANSTHORACIC ECHO (TTE) COMPLETE Diagnosis/ICD: 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 Evolut FX #34, HX , AFib, CAD, CHF, HTN,DM, Pacemaker, Dilated CM, CPT Codes: Echo Complete w Full Doppler-[id number] Study Detail: The following Echo studies were [...] 0.7 m/s (0.6-0.9m/s) PV Max P.2 mmHg [id number] Aleida Valle MD Electronically signed on 01/17/2024 at 3:44:31 PM Final us Kalani Molina PHOTORESIST CONTACT PRINTER-ACCOUNTING SYSTEMS MANAGER CV ECHO PROCEDURES F inal Result SYNGO * (ABNORMAL) Comprehensive metabolic panel (11/13/2023 10:35 AM EDT) Pathologist [facility] Glucose 250(H) 74 - 99 mg/dL LAB CHEMISTRY METHOD 11/13/2023 12:22 PM EDT [facility] Sodium 137 136 - 145 mmol/L LAB CHEMISTRY METHOD 11/13/2023 12:22 PM EDT [facility] Potassium 3.9 3.5 - 5.3 mmol/L LAB CHEMISTRY METHOD 11/13/2023 12:22 PM EDT [facility] Chloride 101 98 - 107 mmol/L LAB CHEMISTRY METHOD 11/13/2023 12:22 PM EDT [facility] Bicarbonate 23 21 - 32 mmol/L LAB CHEMISTRY METHOD 11/13/2023 12:22 PM EDT [facility] Anion Gap 17 10 - 20 mmol/L LAB CHEMISTRY METHOD 11/13/2023 12:22 PM EDT [facility] Urea Nitrogen 29(H) 6 - 23 mg/dL LAB CHEMISTRY METHOD 11/13/2023 12:22 PM EDT [facility] Creatinine 1.51(H) 0.50 - 1.30 mg/dL LAB CHEMISTRY METHOD 11/13/2023 12:22 PM EDT [facility] eGFR 46(L) >60 mL/min/1. 73m*2 LAB CHEMISTRY METHOD 11/13/2023 12:22 PM EDT [facility] Comment: Calculations of estimated GFR are performed using the 2020 CKD-EPI Study Refit equation without the race variable for the IDMS-Traceable creatinine methods. https://jasn.asnjournals.org/content//ASN.1801451920 Calcium 8.9 8.6 - 10.6 mg/dL LAB CHEMISTRY METHOD 11/13/2023 12:22 PM EDT [facility] Albumin 3.4 3.4 - 5.0 g/dL LAB CHEMISTRY METHOD 11/13/2023 12:22 PM EDT [facility] Alkaline Phosphatase 60 33 - 136 U/L LAB CHEMISTRY METHOD 11/13/2023 12:22 PM EDT [facility] Total Protein 6.5 6.4 - 8.2 g/dL LAB CHEMISTRY METHOD 11/13/2023 12:22 PM EDT [facility] AST 20 9 - 39 U/L LAB CHEMISTRY METHOD 11/13/2023 12:22 PM EDT [facility] Bilirubin, Total 0.8 0.0 - 1.2 mg/dL LAB CHEMISTRY METHOD 11/13/2023 12:22 PM EDT [facility] ALT 13 10 - 52 U/L LAB CHEMISTRY METHOD 11/13/2023 12:22 PM EDT [facility] Comment:Patients treated wit h Sulfasalazine may generate falsely decreased results for ALT. Blood Venous blood specimen / Unknown Venipuncture / Unknown 11/13/2023 10:35 AM EDT 11/13/2023 10:41 AM EDT us Caron León MD LAB BLOOD ORDERABLES Final Res ult [facility] [address] [place], [place] [id number] * (ABNORMAL) TSH with reflex to Free T4 if abnormal (11/01/2023 6:18 PM EDT) Thyroid Stimulating Hormone 8.94(H) 0.44 - 3.98 mIU/L LAB IMMUNOASSAY METHOD 11/01/2023 8:18 PM EDT [facility] Blood Venous blood specimen / Unknown Venipuncture / Unknown 11/01/2023 6:18 PM EDT 11/01/2023 6:52 PM EDT Narrative [facility] - 11/01/2023 8:18 PM EDT TSH testing is performed using different testing methodology at [facility] than at other [facility]. Direct result comparisons should only be made within the same method. us Micah Mccallum PHOTORESIST CONTACT PRINTER-ACCOUNTING SYSTEMS MANAGER LAB BLOOD ORDERABLES Fin al Result Performing Organization Address [facility] Co de Phone Number [facility] [address] [place] [phone] * (ABNORMAL) Hemoglobin A1c (11/01/2023 6:18 PM EDT) Hemoglobin A1C 6.9(H) see below % 7:39 PM EDT [facility] Estimated Average Glucose 151 Not Established mg/dL 11/01/2023 7:39 PM EDT [facility] Blood Venous blood specimen / Unknown Venipuncture / Unknown 11/01/2023 6:18 PM EDT 11/01/2023 6:53 PM EDT Narrative [facility] - 11/01/2023 7:39 PM EDT Diagnosis of Diabetes-Adults Non-Diabetic: < or = 5.6% Increased risk for developing diabetes: 5.7-6.4% Diagnostic of diabetes: > or = 6.5% Micah Tarik Xena PHOTORESIST CONTACT PRINTER-ACCOUNTING SYSTEMS MANAGER LAB BLOOD ORDERABLES Fin al Result Performing Organization Address [facility] Co de Phone Number [facility] [address] [place] [address] from Last 3 Months or Most Recently Relevant to Health Maintenance Insurance MEDICARE PART A AND B [facility] MEDICARE PART A AND B [facility] Member Subscriber Plan / Payer (Ef fective 2022-Present) Name:Shahid Jay Relation to Subscriber:Self Name:Shahid Jay Payer ID:Not on file Group ID:Not on file Type:Not on file Address: [facility] [address] [place] [id number] Advance Directives For more information, please contact: [phone] (Available ) Documents on File Type Date Recorded 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 Expl anation Living Will 11/15/2023 * Full Code (Latest Code Status on File) Date Activated Date Inactivated Comments 11/01/2023 4:50 PM Question Answer Comments Plan of Care: Code Status Discussion Completed Decision Maker: Patient Healthcare Agents on File Name Relationship Healthcare Agent Relationship Communication Lilliana Bullard Daughter First Altern ate Health Care Agent [email or web address] Paddy Mann Daughter Second Alternate Health Care Agent Care Teams Clinical Product Manager Relationship Specialty Start Date End Date Al Martinez DO [address] [place] [address] PCP - General Internal Medicine 07/01/23
--- OUTSIDE RECORDS SUMMARY | 2024-10-30 10:38 | XMS_ITS | Encounter Summary ---
Author Organization [facility] Address [address] [place] [address] Phone Care Team Providers Care Hemodialysis Patient Care Specialist Name Role Phone RosalbaAl reilly Primary Care Provider Encounter Details Date Type Department Care Team (Late st Contact Info) Description 07/28/2024 Scanned Document [facility] [address] [place] [address] Scanning, Generic Provider Social History [...] any time in the past 12 m [facility], were you homeless or living in a senior care (including now)? No 11/01/2023 Sex and Gender [...] Description 11/08/2024 1:30 PM EDT Office Visit [facility] [address] [facility] 101 [place] [phone] [place] [address] [place] [address] 11/10/2024 9:00 AM EDT Telemedicine Clinical Support [facility] [place] [address] [facility] 1800 [place] [address] 04/12/2025 1:40 PM EST Office [facility] 7[address] [facility] 250 [place] [address] Aleida Valle MD 703 [facility] 2, [address] [place] [address] documented as of this encounter [...] documented as of this encounter Care Teams Hemodialysis Patient Care Specialist Relationship Specialty Start Date End Date Al Martinez DO [facility]3 [place] [address] PCP - General Internal Medicine 07/01/23 documented as of this encounter
--- OUTSIDE RECORDS SUMMARY | 2024-10-30 10:38 | XMS_ITS | Encounter Summary ---
Author Organization [facility] Address [address] [place] [address] Phone Care Team Providers Care Cartridge Feeder Name Role Phone RosalbaAl reilly Erich HDEZ Primary Care Provider Camryn Davies AIRCRAFT CAPTAIN Unavailable Encounter Details Date Type Department Care Team (Late st Contact Info) Description 09/14/2023 Scanned Document [facility] [address] [place] [phone] Scanning, Generic Provider Social History Tobacco Use [...] Description 11/08/2024 1:30 PM EDT Office Visit [facility] [address] [place] [address] [place] [address] [place] [address] 11/10/2024 9:00 AM EDT Telemedicine Clinical Support [facility] [address] [place] [address] [place] [address] 04/12/2025 1:40 PM EST Office Visit [facility] 703 [facility] [address] [place] [address] Aleida Valle MD [address] [place] [address] documented as of this encounter [...] documented as of this encounter Care Teams Cartridge Feeder Relationship Specialty Start Date End Date Al Martinez DO [facility]3 [place] [address] PCP - General Internal Medicine 07/01/23 Camryn Davies, ROHINI Grounds Maintenance ManagerPatient Sitter 11/15/23 11/15/23 documented as of this encounter
--- OUTSIDE RECORDS SUMMARY | 2024-10-30 10:38 | XMS_ITS | Encounter Summary ---
Author Organization [facility] Address [address] [place] [address] Phone Care Team Providers Care Inspector Materials And Processes Name Role Phone RosalbaAl reilly Erich HDEZ Primary Care Provider Camryn Davies SPARE HAND CARDING Unavailable [phone] Encounter Details Date Type Department Care Team (Late st Contact Info) Description 09/09/2023 Scanned Document [facility] [address] [place] [address] Scanning, Generic Provider Social History Tobacco Use [...] Description 11/08/2024 1:30 PM EDT Office Visit [facility] [address] [place] [address] [place] [address] [place] [address] 11/10/2024 9:00 AM EDT Telemedicine Clinical Support [facility] [address] [place] [address] 04/12/2025 1:40 PM EST Office Visit [facility] [address] [facility] [address] [place] [address] Aleida Valle MD [address] [place] [address] documented as of this encounter Procedures Procedure Name Priority Date/Time Associated Diagnosis Comments OUTSIDE DEVICE CHECK - ONBASE SCAN 09/09/2023 OUTSIDE IMAGING SCAN 09/09/2023 documented in this encounter Results * Outside Device Check - Onbase Scan (09/09/2023) Narrative 09/09/2023 Ordered by an unspecified provider. us Generic Provider Scanning CV CARDIAC SERVICES MA OCEDURES Final Result * OUTSIDE IMAGING SCAN [...] documented as of this encounter Care Teams Inspector Materials And Processes Relationship Specialty Start Date End Date Al Martinez DO [address] [place] [address] PCP - General Internal Medicine 07/01/23 Camryn Davies, SPARE HAND CARDING Insurance Examining ClerkDirector Professional Services 11/15/23 11/15/23 documented as of this encounter
--- OUTSIDE RECORDS SUMMARY | 2024-10-30 10:38 | XMS_ITS | Encounter Summary ---
Author Organization [facility] Address [address] [place] [address] Phone Care Team Providers Care Archery Equipment Hay Sorter Name Role Phone RosalbaAl reilly Primary Care Provider Encounter Details Date Type Department Care Team (Late st Contact Info) Description 06/08/2024 Scanned Document [facility] [address] [place] [phone] Scanning, Generic Provider Social History Tobacco Use [...] were you homeless or living in a correction (including now)? No 11/01/2023 Sex and Gender Information Value Date Recorded Sex Assigned at Not on file Legal Sex Male 3:25 PM EST Gender Identity Not on file Sexual Orientation Not on file documented as of this encounter Plan of Treatment Upcoming Encounters Date Type Department Care Team (Late st Contact Info) Description 11/08/2024 1:30 PM EDT Office Visit [facility] [address] [facility] 101 [place] [address] [place] [address] [place] [address] 11/10/2024 9:00 AM EDT Telemedicine Clinical Support [facility] [address] [facility] 1800 [place] [address] 04/12/2025 1:40 PM EST Office Visit [facility] [address] [facility] [address] [place] [address] Aleida Valle MD 703 [facility] 2, [address] [place] [address] documented as of this encounter Visit Diagnoses Not on filedocumented in this encounter Additional Health Concerns Assessment Noted Time A fall risk assessment has been complete d for the patient 01/25/2024 2:32 PM EDT documented as of this encounter Care Teams Archery Equipment Hay Sorter Relationship Specialty Start Date End Date Al Martinez DO [facility] [place] [address] PCP - General Internal Medicine 07/01/23 documented as of this encounter
--- OUTSIDE RECORDS SUMMARY | 2024-10-30 10:38 | XMS_ITS | Encounter Summary ---
Author Organization [facility] Address [address] [place] [address] Phone Care Team Providers Care Upholsterer Apprentice Name Role Phone RosalbaAl reilly Primary Care Provider [phone] Camryn Davies CIRCUS TRAINER Unavailable Encounter Details Date Type Department Care Team (Late st Contact Info) Description 10/11/2023 Cardiology Conference [facility] [address] [place] [address] Ramon Snow MD Office Address Unavailable as of 09/26/2024 Social History Tobacco Use Types Packs/Day Years [...] [facility] [address] [place] [address] [place] [address] [place] [address] 11/10/2024 9:00 AM EDT Telemedicine Clinical Support [facility] [address] [place] [address] [place] [address] 04/12/2025 1:40 PM EST Office Visit [facility] 703 [facility] [address] [place] [address] Aleida Valle MD 703 [facility] [address] [place] [address] documented as of this encounter Visit Diagnoses Not on filedocumented in this encounter Additional Health Concerns Assessment Noted Time A fall risk assessment has been complete d for the patient 06/23/2023 1:14 PM EDT documented as of this encounter Care Teams Upholsterer Apprentice Relationship Specialty Start Date End Date Al Martinez DO [address] [place] [address] PCP - General Internal Medicine 07/01/23 Camryn Davies, ROHINI Animal Laboratory TechnicianComplaint Investigations Officer 11/15/23 11/15/23 documented as of this encounter
--- OUTSIDE RECORDS SUMMARY | 2024-10-30 10:38 | XMS_ITS | Encounter Summary ---
Author Organization [facility] Address [address] [place] [address] Phone Care Team Providers Care Electrician Station Assistant Name Role Phone RosalbaAl reilly Primary Care Provider Camryn Davies SUEDING MACHINE TENDER Unavailable Encounter Details Date Type Department Care Team (Late st Contact Info) Description 10/20/2023 Scanned Document [facility] [address] [place] [address] Scanning, Generic Provider Social History Tobacco Use [...] Description 11/08/2024 1:30 PM EDT Office Visit [facility] [address] [place] [address] [place] [address] [place] [address] 11/10/2024 9:00 AM EDT Telemedicine Clinical Support [facility] [place] [address] [facility] [address] [place] [address] 04/12/2025 1:40 PM EST Office Visit [facility] [address]03 [facility] [address] [place] [address] Aleida Valle MD [facility]03 [facility], [address] [place] [address] documented as of this encounter Visit Diagnoses Not on filedocumented in this encounter Additional Health Concerns Assessment Noted Time A fall risk assessment has been complete d for the patient 10/13/2023 4:04 PM EDT documented as of this encounter Care Teams Electrician Station Assistant Relationship Specialty Start Date End Date Al Martinez DO [address] [place] [address] PCP - General Internal Medicine 07/01/23 Camryn Davies, ROHINI Refrigeration ManagerHand Plate Stacker 11/15/23 11/15/23 documented as of this encounter
--- OUTSIDE RECORDS SUMMARY | 2024-10-30 10:38 | XMS_ITS | Encounter Summary ---
Author Organization [facility] Address [address] [place] [address] Phone Care Team Providers Care Av Specialist Name Role Phone RosalbaAl reilly Primary Care Provider [phone] Encounter Details Date Type Department Care Team (Late st Contact Info) Description 08/14/2024 Scanned Document [facility] [address] [place] [address] Scanning, Generic Provider Social History Tobacco Use [...] were you homeless or living in a chcf (including now)? No 11/01/2023 Sex and Gender Information Value Date Recorded Sex Assigned at Not on file Legal Sex Male 3:25 PM EST Gender Identity Not on file Sexual Orientation Not on file documented as of this encounter Plan of Treatment Upcoming Encounters Date Type Department Care Team (Late st Contact Info) Description 11/08/2024 1:30 PM EDT Office Visit [facility] [address] [facility] 101 [place] [address] [place] [address] [place] [address] 11/10/2024 9:00 AM EDT Telemedicine Clinical Support [facility] [address] [facility] 1800 [place] [address] 04/12/2025 1:40 PM EST Office Visit [facility] 703 [facility] [address] [place] [address] Aleida Valle MD 703 [facility] 2, [address] [place] [address] documented as of this encounter Visit Diagnoses Not on filedocumented in this encounter Additional Health Concerns Assessment Noted Time A fall risk assessment has been complete d for the patient 07/12/2024 3:47 PM EDT documented as of this encounter Care Teams Av Specialist Relationship Specialty Start Date End Date Al Martinez DO [facility]3 [place] [address] PCP - General Internal Medicine 07/01/23 documented as of this encounter
--- OUTSIDE RECORDS SUMMARY | 2024-10-30 10:38 | XMS_ITS | Encounter Summary ---
Author Organization [facility] Address [address] [place] [address] Care Team Providers Care Jive Developer Name Role Phone Al Martinez MD Primary Care Provider [phone] Dewey Smith DO Unavailable [phone] Encounter Details Date Type Department Care Team (Late st Contact Info) Description 08/16/2024 Abstract [facility] [address] [place] [address] Dewey Smith DO [address] [place] [address] Social History Tobacco Use Types Packs/Day Years [...] on filedocumented in this encounter Care Teams Jive Developer Relationship Specialty Start Date End Date Al Martinez MD [facility] [place] [address] PCP - General Internal Medicine 07/24/23 Dewey Smith DO [address] [place] [address] Otolaryngology 08/24/23 documented as of this encounter
--- OUTSIDE RECORDS SUMMARY | 2024-10-30 10:38 | XMS_ITS | Clinical Summary ---
Author Organization [facility] Address [address] [place] [address] Care Team Providers Care Home Advisor Name Role Phone Michelle Newton DO, Charles [...] once daily. Active mirabegron (MYRBETRIQ) 50 mg [id number]: Abnormal ECG Take 50 mg by mouth [...] History Relation Comments Diabetes Father Heart Father [place] Hyperlipidemia Father Hypertension Father Cancer Mother breast [...] N ot on file 03/05/2020 Data from: https://www.neighborhoodatlas.[facility] [place] Last address used for calculation Not on [...] Diabetes Screening 03/15/2021 03/15/2018, 0 12/08/2002, 12/21/2000 Advance Directive Discussion 03/29/2024 Influenza Vaccine (#1) 2024 11/27/2018, 2008 DTaP,Tdap,Td Vaccine (2 - Td or Tdap) [...] - 8.0 g/dL 03/15/2018 4:56 PM EST [facility] Albumin 3.9 3.9 - 4.9 g/dL 03/15/2018 4:56 PM EST [facility] Calcium 9.2 8.5 - 10.2 mg/dL 03/15/2018 4:56 PM [facility] Bilirubin, Total 0.5 0.2 - 1.3 mg/dL 03/15/2018 4:56 PM [facility] Alkaline Phosphatase 68 38 - 113 U/L 03/15/2018 4:56 PM [facility] AST 27 14 - 40 U/L 03/15/2018 4:56 PM [facility] Glucose 155(H) 74 - 99 mg/dL 03/15/2018 4:56 PM [facility] Comment: The [place] Diabetes Association (ADA) provides guidance for cutoff [...] Standards of Medical Care in Diabetes 2016, [place] Diabetes Association. Diabetes Care. 2016.39(Suppl 1). BUN 18 9 - 24 mg/dL 03/15/2018 4:56 PM EST [facility] Creatinine 1.31(H) 0.73 - 1.22 mg/dL 03/15/2018 4:56 PM [facility] Sodium 140 136 - 144 mmol/L 03/15/2018 4:56 PM [facility] Potassium 4.6 3.7 - 5.1 mmol/L 03/15/2018 4:56 PM [facility] Chloride 104 97 - 105 mmol/L 03/15/2018 4:56 PM [facility] CO2 24 22 - 30 mmol/L 03/15/2018 4:56 PM [facility] Anion Gap 12 9 - 18 mmol/L 03/15/2018 4:56 PM [facility] ALT 23 10 - 54 U/L 03/15/2018 4:56 PM [facility] eGFR- >60 03/15/2018 4:56 PM [facility] eGFR-All Other Races 53 . 03/15/2018 4:56 PM [facility] Comment: eGFR (Estimated GFR) Units [...] 10:35 AM EST 03/15/2018 10:37 AM EST [facility] Final Result [facility] [address] [place] [address] from Last 3 Months or Most Recently Relevant to Health Maintenance [place] [phone] [address] Care Teams Home Advisor Relationship Specialty Start Date End Date Al Martinez Jr., [facility] [place] [address] PCP - General 01/29/01 Referring, No(Hist) 03/17/18
--- OUTSIDE RECORDS SUMMARY | 2024-10-30 10:38 | XMS_ITS | Encounter Summary ---
Author Organization [facility] Address [address] [place] [address] Phone Care Team Providers Care Group Art Supervisor Name Role Phone Al Martinez DO Primary Care Provider [phone] Al Martinez DO Primary Care Provider [phone] Camryn Davies SUBJECT SCIENTIFIC RESEARCH Unavailable Encounter Details Date Type Department Care Team (Late st Contact Info) Description 03/13/2023 Scanned Document [facility] [address] [place] [place] [phone] Scanning, Generic Provider Social History Tobacco Use [...] Description 11/08/2024 1:30 PM EDT Office Visit [facility] [address] [place] [phone] [place] [address] [place] [address] 11/10/2024 9:00 AM EDT Telemedicine Clinical Support [facility] [address] [facility] [address] [place] [phone] 04/12/2025 1:40 PM EST Office Visit [facility] [address] [facility] [address] [place] [address] Aleida Valle MD [address] [facility] [address] [place] [address] documented as of this encounter [...] documented as of this encounter Care Teams Group Art Supervisor Relationship Specialty Start Date End Date Al Martinez DO PCP - General Internal Medicine 02/05/23 06/30/23 Al Martinez DO [address] [place] [address] PCP - General Internal Medicine 07/01/23 Camryn Davies, ROHINI Insurance Marketing SpecialistSales Representative Sales Manager 11/15/23 11/15/23 documented as of this encounter
--- OUTSIDE RECORDS SUMMARY | 2024-10-30 10:38 | XMS_ITS | Encounter Summary ---
Author Organization [facility] Address [address] [place] [address] Phone Care Team Providers Care Metal Cut Off Saw Tender Name Role Phone Al Martinez DO Primary Care Provider [phone] Al Martinez DO Primary Care Provider [phone] Camryn Davies METAL WIRE TECHNICIAN Unavailable Encounter Details Date Type Department Care Team (Late st Contact Info) Description 01/28/2023 Scanned Document [facility] [address] [place] [phone] Scanning, Generic Provider Social History Tobacco Use [...] Description 11/08/2024 1:30 PM EDT Office Visit [facility] [address] [facility] [address] [place] [address] [place] [address] [place] [address] 11/10/2024 9:00 AM EDT Telemedicine Clinical Support [facility] [address] [facility] [address] [place] [address] 04/12/2025 1:40 PM EST Office Visit [facility] [address] [facility] [address] [place] [address] Aleida Valle MD [address] [facility] [address] [place] [address] documented as of this encounter Visit Diagnoses Not on filedocumented in this encounter Care Teams Metal Cut Off Saw Tender Relationship Specialty Start Date End Date Al Martinez DO PCP - General Internal Medicine 02/05/23 06/30/23 Al Martinez DO [address] [place] [address] PCP - General Internal Medicine 07/01/23 Camryn Davies, ROHINI Opto Mechanical TechnicianAuto Glass Installer 11/15/23 11/15/23 documented as of this encounter
--- OUTSIDE RECORDS SUMMARY | 2024-10-30 10:38 | XMS_ITS | Encounter Summary ---
Author Organization [facility] Address [address] [place] [address] Phone Care Team Providers Care Records Section Supervisor Name Role Phone Al Martinez DO Primary Care Provider [phone] Al Martinez DO Primary Care Provider [phone] Camryn Davies [employer] Unavailable [phone] Encounter Details Date Type Department Care Team (Late st Contact Info) Description 03/12/2023 Scanned Document [facility] [address] [place] [phone] Scanning, Generic Provider Social History Tobacco Use [...] Description 11/08/2024 1:30 PM EDT Office Visit [facility] [address] [place] [phone] [place] [address] [place] [address] 11/10/2024 9:00 AM EDT Telemedicine Clinical Support [facility] [address] [facility] [address] [place] [address] 04/12/2025 1:40 PM EST Office Visit [facility] [address] [facility] [address] [place] [address] Aleida Valle MD [address] [facility] [address] [place] [address] documented as of this encounter [...] documented as of this encounter Care Teams Records Section Supervisor Relationship Specialty Start Date End Date Al Martinez DO PCP - General Internal Medicine 02/05/23 06/30/23 Al Martinez DO [address] [place] [address] PCP - General Internal Medicine 07/01/23 Camryn Davies, ROHINI Restaurant Maintenance TechnicianQuality Control Assessor 11/15/23 11/15/23 documented as of this encounter
--- OUTSIDE RECORDS SUMMARY | 2024-10-30 10:38 | XMS_ITS | Clinical Summary ---
Author Organization [facility] Address [address] [place] [address] Care Team Providers Care Home Office Claim Specialist Name Role Phone Al Martinez MD Primary Care Provider [phone] Luis Dewey Leslie DO Unavailable [phone] Allergies No known active allergies Medications Eliquis [...] Immunosuppression 02/23/2023 08/09/2023 Kidney disease 02/23/2023 08/09/2023 senior living current use of ant icoagulant therapy 02/23/2023 08/09/2023 Persistent atrial fibrillation 02/23/2023 08/09/2023 Personal history of colon cancer, stage II 02/23/2023 08/09/2023 Positive colorectal cancer s creening using Cologuard test 02/23/2023 08/09/2023 Rheumatoid arthritis 02/23/2023 024 Shortness of breath 02/23/2023 08/09/19 24 Sleep apnea 02/23/2023 08/09/2023 Vitamin D deficiency 02/23/2023 024 Chronic systolic heart failure 02/23/2023 04/11/2024 Abnormal ECG 01/21/2017 08/09/2023 Encounters Date Type Department Care Team Description 10/09/2024 Telephone [facility] [address] [place] [address] Dewey Smith, DO 08/16/2024 Telephone [facility] [address] [place] [phone] Dewey Smith, DO Appointment (ENT F/U) 08/16/2024 Abstract [facility] [address] [place] [address] Dewey Smith, from Last 3 Months Immunizations Immunization Administration Dates Next Due DTP 10/25/2020 Novel [id number], preservative-free 03/25 Td (adult), 5 Lf tetanus [...] of 1 - PCV) 992 Influenza Vaccine (#1) 2024 Insurance MEDICARE [facility] Care Teams Home Office Claim Specialist Relationship Specialty Start Date End Date Al Martinez MD [address] [place] [address] PCP - General Internal Medicine 07/24/23 Dewey Smith DO [address] [place] [address] Otolaryngology 08/24/23
--- OUTSIDE RECORDS SUMMARY | 2024-10-30 10:38 | XMS_ITS | Clinical Summary ---
Author Organization [employer] [facility] Address [id number] [address] [place] [address] Care Team Providers Care Cia Agent Name Role Phone Unavailable Primary Care Provider [...] Medical Devices Not on file Insurance MEDICARE [facility]
--- OUTSIDE RECORDS SUMMARY | 2024-10-30 10:38 | XMS_ITS ---
Author Organization [facility] Address [address] 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
--- OUTSIDE RECORDS SUMMARY | 2024-10-30 10:38 | XMS_ITS | Encounter Summary ---
Author Organization [facility] Address [address] [place] [address] Phone Care Team Providers Care Assistant Fitness Manager Name Role Phone RosalbaAl reilly Erich HDEZ Primary Care Provider Camryn Davies LEAD SOFTWARE QA ENGINEER Unavailable Encounter Details Date Type Department Care Team (Late st Contact Info) Description 09/13/2023 Scanned Document [facility] [address] [place] [phone] Scanning, Generic Provider Social History Tobacco Use [...] Description 11/08/2024 1:30 PM EDT Office Visit [facility] [address] [place] [phone] [place] [address] [place] [address] 11/10/2024 9:00 AM EDT Telemedicine Clinical Support [facility] [address] [place] [address] [place] [address] 04/12/2025 1:40 PM EST [facility] Visit [facility] [address] [facility] [address] [place] [address] Aleida Valle MD [address] [facility] [address] [place] [address] documented as of this encounter [...] documented as of this encounter Care Teams Assistant Fitness Manager Relationship Specialty Start Date End Date Al Martinez DO [address] [place] [address] PCP - General Internal Medicine 07/01/23 Camryn Davies, ROHINI Mold Design EngineerClerical Adviser 11/15/23 11/15/23 documented as of this encounter
--- OUTSIDE RECORDS SUMMARY | 2024-10-30 10:38 | XMS_ITS | Encounter Summary ---
Author Organization [facility] Address [address] [place] [address] Phone Care Team Providers Care Home Energy Inspector Name Role Phone Al Martinez DO Primary Care Provider [phone] Al Martinez DO Primary Care Provider [phone] Camryn Davies PULMONARY SPECIALIST Unavailable [phone] Encounter Details Date Type Department Care Team (Late st Contact Info) Description 1940 Scanned Document [facility] [address] [place] [phone] Scanning, Generic Provider Social History Tobacco Use [...] Description 11/08/2024 1:30 PM EDT Office Visit [facility] [address] [facility] [address] [place] [address] [place] [address] [place] [address] 11/10/2024 9:00 AM EDT Telemedicine Clinical Support [facility] [address] [facility] [address] [place] [address] 04/12/2025 1:40 PM EST Office Visit [facility] [address] [facility] [address] [place] [address] Aleida Valle MD [address] [employer] [address] [place] [address] documented as of this encounter Visit Diagnoses Not on filedocumented in this encounter Care Teams Home Energy Inspector Relationship Specialty Start Date End Date Al Mratinez DO PCP - General Internal Medicine 02/05/23 06/30/23 Al Martinez DO [address] [place] [address] PCP - General Internal Medicine 07/01/23 Camryn Davies, ROHINI Market Sales ManagerInstructional Manager 11/15/23 11/15/23 documented as of this encounter
[2024-10-30 10:59] LABS: Hematocrit 27.6 % (42.0-54.0); Hemoglobin 9.0 g/dL (14.0-18.0); Immature Granulocytes Abs Auto 0.04 10^3/uL (0.00-0.03); Immature Granulocytes Pct Auto 0.7 % (0.0-0.5); Lymphocytes Absolute Auto 0.7 10^3/uL (1.2-3.8); Mean Corpuscular HGB Conc 32.6 g/dL (29.9-35.2); Mean Corpuscular Hemoglobin 30.8 pg (25.9-34.0); Mean Corpuscular Volume 94.5 fL (80.0-94.0); Platelet Count 168 10^3/uL (150-450); Red Blood Count 2.92 10^6/uL (4.70-6.10); White Blood Count 6.0 10^3/uL (4.0-11.0)
[2024-10-30 11:40] LABS: Alanine Aminotransferase 20 U/L (16-63); Albumin Globulin Ratio 1.0; Albumin Level 3.4 g/dL (3.4-5.0); Alkaline Phosphatase 63 U/L (46-116); Anion Gap 13.9; Aspartate Amino Transferase 16 U/L (15-37); Blood Urea Nitrogen 31.0 mg/dL (7.0-18.0); Carbon Dioxide 21.3 mmol/L (21.0-32.0); Chloride 107 mmol/L (98-107); Estimated GFR (African America 56 (>=60 mL/min/1.73m^2); Estimated GFR (Non-African Ame 46 (>=60 mL/min/1.73m^2); Globulin 3.4 g/dL; Potassium 4.2 mmol/L (3.5-5.1); Sodium 138 mmol/L (136-145); Total Protein 6.8 g/dL (6.4-8.2)
[2024-10-30 11:42] LABS: NT Pro B Type Natriuretic Pept 3048.0 pg/mL (<=1800.0)
== END 2024-10-30 10:32 | disposition home or self-care (01) ==
LOC: LAB 10:35
PROVIDERS: PCP Internal Medicine; Visit Provider Internal Medicine
DX: Z79.899 Other long term (current) drug therapy (principal); R06.02 Shortness of breath; R53.83 Other fatigue; D50.9 Iron deficiency anemia, unspecified
CPT/HCPCS: 36415; 80051; 80076; 82565; 83036; 83880; 84520; 85025

== ENCOUNTER 2024-12-05 09:24 | Outpatient (OUT) | payer MEDICARE, SELFPAY ==
--- OUTSIDE RECORDS SUMMARY | 2024-12-05 09:39 | XMS_ITS | CCD ---
Author Organization [facility] Care Team Providers Care Residue Furnace Operator Name Role Phone Al Raymundo Primary Care Provider Solomon Bolton Attending Provider JR Al Raymundo Primary Care Provider MD Solomon Bolton Attending Provider [phone] DO Kelvin Fu Jr Attending Provider MD Solomon Bolton Attending Provider MD Solomon Bolton Attending Provider [phone] AL RAYMUNDO JR Primary Care Physician MD Solomon Bolton Attending Provider NAYAN DUTTA Admitting Unavailable Joceline Hough Consulting Unavailable ISAIAH ., NAYAN Attending Unavailable BREANNE, DR COULTER Primary Care Unavailable ISAIAH ., NAYAN Consulting Unavailable NILL ., DR PEDROZA Consulting Unavailable BREANNE, DR COULTER Primary Care Unavailable NILL ., DR PEDROZA Admitting Unavailable NILL ., DR PERDOZA Attending Unavailable LYSSA COUCH Consulting Unavailable SAMIRJOSE LUIS Consulting Unavailable NATO BAR Consulting Unavailable AL RAYMUNDO Referring Unavailable Yovany AVILA Attending Unavailable Yovany AVILA Attending Unavailable NILLYovany Attending Unavailable ALANNALYovany Attending Unavailable NO FAMILY, PHYSICIAN Primary Care Provider Unava MD Solomon Khan Attending Provider [phone] NO FAMILY, PHYSICIAN Primary Care Provider Unava ilMD Floyd Ordoñez Attending Provider lA Raymundo DO Primary Care Provider NO FAMILY, PHYSICIAN Primary Care Provider Unava ilMD Omega Ordoñezew Attending Provider MD Arnulfo Carter Attending Provider JR Al Raymundo Primary Care Provider Al Raymundo DO Primary Care Provider [phone] MD Joby Pinedo Attending Provider JR Al Raymundo Primary Care Provider Al Raymundo DO Primary Care Provider MD Manny Perez Emergency Provider DO Astrid Osman Admit Provider DO Astrid Osman Attending Provider PATRICIA Gamez Other Provider Unavailable DO Erin Reyna Other Provider MD Gabe Bowens Other Provider MD Arnulfo Carter Other Provider MD Joby Pinedo Other Provider MD Al Uriostegui Other Provider ROSSY Aldrich Other Provider MD Destini Rae Other Provider MD Nela Calderónammed Naeb Other Provider MD Tano Law Other Provider Rula [facility] Concetta Jung Other Provider MD Misael Gonzales Attending Provider JR Al Raymundo Primary Care Provider MD Joby Pinedo Attending Provider ROSSY Tsai Attending Provider JR Al Raymundo Primary Care Provider [phone] TONYA Davidson Emergency Provider [phone] MD Mary Colin Admit Provider MD Mary Colin Attending Provider MD Valerio Saeed Other Provider MD Ananth Wilde Other Provider DO William Smalls Attending Provider JR Al Raymundo Primary Care Provider MD Joby Pinedo Other Provider JOBY PINEDO Referring Unavailable VALONE, AL Jung Primary Care Unavailable TRABOULNICOLÁSI, JOBY Referring Unavailable VALONE, AL Jung Primary Care Unavailable ANDRA MOLINA Referring Unavailable VALONE, AL Jung Primary Care Unavailable SHAHIDA, JOBY Referring Unavailable VALONE, AL Jung Primary Care Unavailable SHAHIDA, JOBY Referring Unavailable VALONE, AL Jung Primary Care Unavailable Al Raymundo DO Primary Care Provider Al Raymundo MD Primary Care Provider Dewey Chamorro DO Unavailable Al Raymundo JR Primary Care Provider Floyd Bolton MD Attending Provider [phone] Al Raymundo JR Primary Care Provider [phone] Floyd Bolton MD Attending Provider [phone] DEWEY CHAMORRO Attending Unavailable BREANNE, AL Jung Referring Unavailable MADELYNENELA, DEWEY S Attending Unavailable MADELYNENELA, DEWEY S Attending Unavailable PEDRO PABLO, DEWEY Nelson Attending Unavailable VALONE, AL Jung Referring Unavailable DEWEY CHAMORRO Attending Unavailable Joby Pinedo MD Attending Provider Al Raymundo DO Primary Care Provider Al Raymundo JR Primary Care Provider Floyd Bolton MD Attending Provider JOBY PINEDO Attending Unavailable SHAHIDA, JOBY Referring Unavailable VALONE, AL Jung Primary Care Unavailable TRABOULSSI, MOURHAF Attending Unavailable TRABOULSSI, MOURHAF Referring Unavailable VALONE, AL L Primary Care Unavailable TRABOULSSI, MOURHAF Attending Unavailable TRABOULSSI, MOURHAF Referring Unavailable VALONE, AL L Primary Care Unavailable Valone JR, Al L Primary Care Provider Hoang CABRERA, Floyd Attending Provider [phone] Joby Pinedo MD Other Provider [phone] Kana Mcdonough MD Attending Provider Joby Pinedo MD Attending Provider MEDARDO TSAI Attending Unavailable MILTON CAMEJO Referring Unavailab le VALONE, AL L Primary Care Unavailable Valone JRAl L Primary Care Provider Ly DOShabana Attending Provider Ly DOShabana Other Provider [phone] Traboulssi, Mourhaf Admitting Unavailable Valone, Al L Primary Care Unavailable Traboulssi, Mourhaf Attending Unavailable Hoang, Floyd Admitting Unavailable BoltonFloyd Attending Unavailable Valone, Al L Primary Care Unavailable Traboulssi, Mourhaf Attending Unavailable Traboulssi, Mourhaf Admitting Unavailable Valone, Al L Primary Care Unavailable Ly, Shabana L Admitting Unavailable Ly, Shabana Jung Attending Unavailable Valone, Al L Primary Care Unavailable Valone, Al L Primary Care Unavailable Traboulssi, Mourhaf Admitting Unavailable Traboulssi, Mourhaf Attending Unavailable Valone, Al L Primary Care Unavailable Traboulssi, Mourhaf Admitting Unavailable Traboulssi, Mourhaf Attending Unavailable Valone, Al L Primary Care Unavailable Bolton, Floyd Admitting Unavailable Bolton, Floyd Attending Unavailable Valone, Al L Primary Care Unavailable Bolton, Floyd Admitting Unavailable Bolton, Floyd Attending Unavailable Unavailable Unavailable Unavailable Allergies Allergy Classification Reported Allergen(s) Allergy Type Date of Onset Reaction(s) Facility (1 source) empagliflozin Drug Allergy [facility] Repository (1 source) No Known Medication Allergies; 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: [No Known Medication Allergies] Propensity to adverse reactions (disorder) [facility] Repository Medications Current Medications Medication Drug Class(es) Dates Sig (Normalized) Sig (Original) acetaminophen 325 mg oral tablet (1 source) Start: 11-01-2023 take 650 mg by mouth every four hours as needed acetaminophen 325 mg / oxyCODONE hydrochloride 5 mg oral tablet (6 sources) Opioid Agonist Start: 11-01-2023 take 1 tablet by mouth every four hours as needed take 1 tablet by vickie th every four hours as needed oxyCODONE-acetaminophen (Percocet) 5-325 mg tablet Take 1 tablet by mouth every 4 hours if needed for severe pain (7 - 10). Active amoxicillin 500 mg oral capsule (1 source) Penicillin-class Antibacterial Start: 05-20-2022 End: 02-23-2023 take 1 capsule by mouth every eight hours amoxicillin (Amoxil) 500 mg capsule Take 1 capsule (500 mg) by mouth every 8 hours. 0 05/20/2022 02/23/2023 Discontinued (Other) apixaban 2.5 mg oral tablet (20 sources) Factor Xa Inhibitor Start: 11-03-2024 take 1 tablet by mouth twice daily Apixaban (Eliquis) 2.5 mg tablet Active 2.5 MG PO Twice daily November 03, 2024 12:00am Complies with drug therapy Start: 05-27-2022 End: 11-13-2023 take 1 tablet by mouth twice daily Apixaban (Eliquis) 5 mg Tablet Discontinued 5 MG PO Twice daily March 10, 2023 1:00am October 26, 2023 10:10am bumetanide 1 mg oral tablet (20 sources) Loop Diuretic Start: 10-26-2023 End: 11-13-2023 take 1 tablet by mouth once daily bumetanide (Bumex) 1 mg tablet Indications: Severe aortic stenosis Take 1 tablet (1 mg) by mouth once daily. 90 tablet 2 11/13/2023 Active Start: 10-26-2023 End: 11-03-2024 take 1 tablet by mouth twice daily as needed for edema Bumetanide 1 mg Tablet Active 1 MG PO BID@0800,1600 as needed for edema November 03, 2024 12:00am Complies with drug therapy calcium carbonate 500 mg chewable tablet (1 source) Start: 11-09-2023 cholecalciferol 0.125 mg oral tablet (20 sources) Vitamin D Start: 11-13-2023 take 1 tablet by mouth in the morning cholecalciferol (Vitamin D-3) 5,000 Units tablet Indications: Severe aortic stenosis Take 1 tablet (5,000 Units) by mouth early in the morning.. 90 tablet 3 11/13/2023 Active Start: 11-02-2023 Start: 03-10-2023 End: 11-13-2023 Start: 03-10-2023 cholecalcifero l, vitamin D3, 25 mcg (1,000 unit) tablet,chewable Chew 1 tablet (1,000 Units) early in the morning.. 03/10/2023 Active Start: 03-10-2023 take 1 tablet by vickie th once daily Cholecalciferol (Vitamin D3) (Vitamin D3) 25 mcg (1,000 unit) Tablet,Chewable Active 25 MCG PO Daily March 10, 2023 1:00am Complies with drug therapy colesevelam hydrochloride 625 mg oral tablet (16 sources) Bile Acid Sequestrant Start: 11-13-2023 End: 12-13-2023 take 2 tablets by mouth twice daily as needed for diarrhea colesevelam (Welchol) 625 mg tablet Indications: Severe aortic stenosis Take 2 tablets (1,250 mg) by mouth 2 times a day as needed (diarrhea). Take with meal(s) and a liquid. 30 tablet 11/13/2023 Active Start: 01-18-2023 End: 02-23-2023 take 4 tablets by mouth once daily colesevelam (Welchol) 625 mg tablet Take 4 tablets (2,500 mg) by mouth once daily. 0 01/18/2023 02/23/2023 Discontinued (Other) Start: 05-27-2022 take 1 tablet by vickie th once daily Welchol 625 mg Tab 625 mg = 1 tab(s), Oral, Daily, Refills(s) 0 Start Date: 05/27/22 Status: Ordered dapagliflozin 10 mg oral tablet (3 sources) Sodium-Glucose Cotransporter 2 Inhibitor Start: 04-06-2022 End: 02-23-2023 take 1 tablet by mouth once daily Farxiga 10 mg oral tablet 10 mg = 1 tab(s), Oral, Daily, Refills(s) 0 Start Date: 05/27/22 Status: Ordered docusate sodium 100 mg oral capsule (1 source) Start: 11-01-2023 dutasteride 0.5 mg oral capsule (20 sources) 5-alpha Reductase Inhibitor Start: 02-09-2023 End: 12-13-2023 Start: 05-27-2022 take 1 capsule by mo [facility] once daily in the evening Dutasteride 0.5 mg capsule Active 0.5 MG PO Every evening March 10, 2023 1:00am Complies with drug therapy famotidine 40 mg oral tablet (8 sources) Histamine-2 Receptor Antagonist Start: 02-03-2024 take 1 tablet by mouth once daily at bedtime famotidine (Pepcid) 40 MG tablet TAKE 1 TABLET BY MOUTH AT BEDTIME EVERY DAY 02/03/2024 Active finasteride 5 mg oral tablet (20 sources) 5-alpha Reductase Inhibitor Start: 11-01-2023 Start: 03-15-2017 End: 08-09-2017 take 1 tablet by mouth once daily Finasteride 5 mg tablet Discontinued 1 TAB PO Daily March 15, 2017 1:00am August 09, 2017 8:11am finerenone (Kerendia) 20 mg tablet (16 sources) take 1 tablet by vickie once daily finerenone (Kerendia) 20 mg tablet Take 1 tablet (20 mg) by mouth once daily. Active take 1 tablet by mouth once aly y finerenone (Kerendia) 20 mg tablet Take 1 tablet (20 mg) by mouth once daily. 0 Active finerenone 20 MG Oral Tablet [Kerendia] (2 sources) Start: 05-27-2022 take 1 tablet by mouth once daily Kerendia 20 mg oral tablet 20 mg = 1 tab(s), Oral, Daily, Refills(s) 0 Start Date: 05/27/22 Status: Ordered Fluticasone-Umeclid in-Vilanter (1 source) Anticholinergic, Corticosteroid, beta2-Adrenergic Agonist Start: 11-13-2024 Fluticasone-Umecli din-Vilanter (Trelegy Ellipta) 100-62.5-25 mcg blister with device Active 1 INH INHALATION Daily November 13, 2024 12:00am Complies with drug therapy folic acid 0.8 mg oral tablet (20 sources) Start: 11-13-2023 End: 11-13-2023 take 1 tablet by mouth once daily folic acid (Folvite) 800 mcg tablet Indications: Severe aortic stenosis Take 1 tablet (800 mcg) by mouth once daily. 90 tablet 2 11/13/2023 Active Start: 11-01-2023 Start: 03-10-2023 take 1 capsule by [facility] once daily Folic Acid 20 mg Capsule Active 20 MG PO Daily March 10, 2023 1:00am Complies with drug therapy Start: 05-27-2022 folic acid as diretced, Refills(s) 0 Start Date: 05/27/22 Status: Ordered glucagon (rdna) 1 mg injection (1 source) Antihypoglycemic Agent Start: 11-01-2023 50 ml glucose 500 mg/ml prefilled syringe (3 sources) Start: 11-01-2023 250 ml heparin sodium, porcine 100 unt/ml injection (2 sources) Unfractionated Heparin, Anti-coagulant Start: 11-04-2023 End: 11-12-2023 Insulin Aspart U-100 (Novolog Flexpen U-100 Insulin) 100 unit/mL (3 mL) Insulin Pen (7 sources) Start: 10-26-2023 Insulin Aspart U-100 (Novolog Flexpen U-100 Insulin) 100 unit/mL (3 mL) Insulin Pen Active 0 UNIT SUBCUT 3X/Day with meals and bedtime October 26, 2023 12:00am Please contact the information source for Protocol details. Start: 10-26-2023 Insulin Aspart U-100 (Novolog Flexpen U-100 Insulin) 100 unit/mL (3 mL) Insulin Pen Active 0 UNIT SUBCUT 3X/Day with meals and bedtime October 25, 2023 11:00pm Please contact the information source for Protocol details. Start: 10-26-2023 Insulin Aspart U-100 (Novolog Flexpen U-100 Insulin) 100 unit/mL (3 mL) Insulin Pen Active 0 UNIT SUBCUT 3X/Day with meals and bedtime October 26, 2023 12:00am insulin lispro 100 unt/ml injectable solution (2 sources) Insulin Analog Start: 11-02-2023 End: 11-06-2023 Ipratropium (3 sources) Anticholinergic Start: 05-27-2022 Atrovent 0.03% [place] 2 spray(s), Nasal, TID, Refill(s) 0 Start Date: 05/27/22 Status: Ordered End: 11-01-2023 Kerendia 20 mg tablet (3 sources) Start: 12-02-2023 take 1 tablet by mouth in the morning Kerendia 20 mg tablet Take 1 tablet (20 mg) by mouth early in the morning.. 12/02/2023 Active Kerendia 20 MG tablet (8 sources) Start: 03-07-2024 take 1 tablet by mouth once daily Kerendia 20 MG tablet Take 20 mg by mouth Daily 03/07/2024 Active levothyroxine sodium 0.075 mg oral tablet (20 sources) l-Thyroxi ne Start: 11-03-2024 take 1 tablet by mouth once daily Levothyroxine 75 mcg tablet Active 75 MCG PO Daily November 03, 2024 12:00am Complies with drug therapy Start: 11-07-2023 Start: 03-10-2023 End: 11-03-2024 take 2 tablets by mouth once daily, then take 1 tablet by mouth once daily Levothyroxine 50 mcg tablet Discontinued 50 MCG PO Daily March 10, 2023 1:00am November 03, 2024 12:41pm take 2 on sundays, 1 daily other days Start: 02-01-2023 End: 12-13-2023 levothyroxine (Synthroid, Le voxyl) 50 mcg tablet Indications: Severe aortic stenosis Take 1 tablet (50 mcg) by mouth once daily. 1 tab and Wednesday take 2 tabs 30 tablet 11/13/2023 Active Start: 05-27-2022 take 1 tablet by once daily Synthroid 50 mcg Tab 50 mcg = 1 tab(s), Oral, Daily, Refills(s) 0 Start Date: 05/27/22 Status: Ordered lidocaine 0.04 mg/mg medicated patch (2 sources) Antiarrhythmic, Amide Local Anesthetic Start: 11-02-2023 End: 11-13-2023 magnesium oxide 400 mg oral tablet (1 source) Start: 11-04-2023 melatonin 5 mg oral tablet (1 source) Start: 11-02-2023 methenamine hippurate 1000 m g oral tablet (20 sources) Start: 03-10-2023 Methenamine Hi ppurate (Hiprex) 1 gram tablet Active 1 GM PO Twice daily March 10, 2023 1:00am Complies with drug therapy Start: 02-12-2023 take 1 tablet by vickie twice daily methenamine hippurate (Hiprex) 1 gram tablet Take 1 tablet (1 g) by mouth 2 times a day. 0 02/12/2023 Active methocarbamol 500 mg oral tablet (10 sources) Muscle Relaxant Start: 10-19-2023 take 1 tablet by mouth every eight hours as needed for pain Methocarbamol 500 mg tablet Active 500 MG PO Every 8 hours as needed for muscle pain October 19, 2023 12:00am Complies with drug therapy methotrexate 2.5 mg oral tablet (20 sources) Folate Analog Metabolic Inhibitor Start: 11-03-2024 Methotrexate Sodium 2.5 mg tablet Active 15 MG PO every week November 03, 2024 12:00am Complies with drug therapy Start: 12-29-2023 take 6 tablets by mo [facility] every week methotrexate (Trexall) 2.5 mg tablet Take 6 tablets (15 mg total) by mouth 1 (one) time per week. 12/29/2023 Active Start: 03-10-2023 End: 10-19-2023 Methotrexate Sodium 2.5 mg t ablet Discontinued 15 MG PO every week March 10, 2023 1:00am October 19, 2023 2:46pm wednesdays Start: 03-10-2023 End: 10-19-2023 take 15 mg by mouth every week Methotrexate Sodium Dis continued 15 MG PO every week March 10, 2023 1:00am October 19, 2023 2:46pm wednesdays Start: 02-09-2023 End: 11-01-2023 take 6 tablets by mouth every week methotrexate 2.5 MG tablet take 6 tablets by mouth every week 02/09/2023 Active Start: 05-27-2022 methotrexate a s directed, Refills(s) 0 Start Date: 05/27/22 Status: Ordered Start: 03-15-2017 End: 09-09-2017 Methotrexate Sodium 2.5 mg t ablet Discontinued 1 TAB PO As Directed March 15, 2017 1:00am September 09, 2017 9:56am Start: 03-15-2017 End: 09-09-2017 Methotrexate Sodium Disconti nued 1 TAB PO As Directed March 15, 2017 1:00am September 09, 2017 9:56am 24 hr metoprolol succinate 25 mg extended release oral tablet (20 sources) beta-Adrenergic Radha Start: 01-25-2024 End: 02-01-2025 take 1 tablet by mouth once daily metoprolol succinate XL (Toprol-XL) 25 mg 24 hr tablet Indications: Single vessel coronary artery disease , Chronic systolic heart failure , Primary hypertension Take 1 tablet (25 mg) by mouth once daily. Do not crush or chew. 90 tablet 3 11/03/2024 11:42 AM EDT 01/25/2024 02/01/2025 Active Start: 01-25-2024 End: 01-24-2025 take 1 tablet by mouth every twenty-four hours in the morning metoprolol succinate XL (Toprol-XL) 25 MG 24 hr tablet Take 25 mg by mouth in the morning. 01/25/2024 01/24/2025 Active Start: 09-15-2023 End: 01-25-2024 take 1 tablet by mouth once daily Metoprolol Succinate 50 mg Tablet Extended Release 24 Hr Active 50 MG PO Daily September 15, 2023 12:00am Complies with drug therapy Start: 09-09-2023 End: 09-15-2023 take 1 tablet by mouth once daily Metoprolol Tartrate 25 mg tablet Discontinued 25 MG PO Daily September 09, 2023 12:00am September 15, 2023 6:54pm Start: 09-02-2023 End: 01-25-2024 take 1 tablet by mouth every twelve hours metoprolol tartrate (Lopressor) 25 mg tablet Take 1 tablet (25 mg) by mouth every 12 hours. 09/02/2023 01/25/2024 Discontinued (Med List Cleanup) montelukast 10 mg oral tablet (20 sources) Leukotriene Receptor Antagonist Start: 10-24-2022 End: 11-13-2023 take 1 tablet by mouth four times weekly montelukast (Singulair) 10 mg tablet Indications: Severe aortic stenosis Take 1 tablet (10 mg) by mouth 4 times a week. MWFSu 30 tablet 1 11/13/2023 Active Start: 05-27-2022 take 1 tablet by vickie th once daily Montelukast (Singulair) 10 mg Tablet Active 10 MG PO Daily March 10, 2023 1:00am Wednesday ,wednesday, and wednesday Complies with drug therapy nitrofurantoin, macrocrystals 25 mg / nitrofurantoin, monohydrate 75 mg oral capsule (1 source) Nitrofuran Antibacterial Start: 11-06-2022 End: 02-23-2023 take 1 capsule by mouth twice daily nitrofurantoin, macrocrystal-monohydrate, (Macrobid) 100 mg capsule Take 1 capsule (100 mg) by mouth 2 times a day. 0 11/06/2022 02/23/2023 Discontinued (Other) Ozempic 2 mg/dose (8 mg/3 mL) pen injector (1 source) Start: 12-23-2022 End: 02-23-2023 inject 2 mg by subcutaneous injection every week Ozempic 2 mg/dose (8 mg/3 mL) pen injector inject 2 milligrams subcutaneously every week 0 12/23/2022 02/23/2023 Discontinued (Other) Ozempic, 2 MG/DOSE, 8 MG/3ML solution pen-injector (8 sources) Start: 03-24-2024 inject 2 mg by subcutaneous injection every week Ozempic, 2 MG/DOSE, 8 MG/3ML solution pen-injector INJECT 2 (TWO) mg SUBCUTANEOUSLY (UNDER THE SKIN) EVERY WEEK 03/24/2024 Active pantoprazole 40 mg delayed release oral tablet (20 sources) Proton Pump Inhibitor Start: 10-26-2023 End: 11-13-2023 take 1 tablet by mouth twice daily Pantoprazole 40 mg Tablet,Delayed Release (Dr/Ec) Active 40 MG PO Twice daily 60 30 October 26, 2023 12:00am Complies with drug therapy polyethylene glycol 3350 06664 mg powder for oral solution (1 source) Osmotic Laxative Start: 11-05-2023 polysaccharide iron complex 391 mg oral capsule (3 sources) Start: 11-13-2023 End: 12-13-2023 Start: 11-02-2023 rosuvastatin calcium 10 mg o ral tablet (20 sources) HMG-CoA Reductase Inhibitor Start: 11-01-2023 Start: 03-10-2023 End: 01-08-2024 take 1 tablet by mouth four times weekly Rosuvastatin (Crestor) 10 mg Tablet Active 10 MG PO 4 times per week March 10, 2023 1:00am Wednesday, Wednesday, Wednesday and Wednesday Complies with drug therapy Start: 03-10-2023 take 1 tablet by vickie th once daily Rosuvastatin (Crestor) 10 mg Tablet Active 10 MG PO Daily March 10, 2023 1:00am Start: 05-27-2022 take 1 tablet by vickie th once daily Crestor 10 mg Tab 10 mg = 1 tab(s), Oral, Daily, Refills(s) 0 Start Date: 05/27/22 Status: Ordered Start: 03-15-2017 End: 08-09-2017 take 1 tablet by mouth once daily Rosuvastatin 10 mg tablet Discontinued 1 TAB PO Daily March 15, 2017 1:00am August 09, 2017 8:13am sacubitril 24 mg / valsartan 26 mg oral tablet (20 sources) Angiotensin 2 Receptor Radha Start: 11-13-2024 take 1 tablet by mouth twice daily Sacubitril-Valsartan (Entresto) 24-26 mg tablet Active 1 TAB PO Twice daily November 13, 2024 12:00am Complies with drug therapy Start: 02-12-2023 End: 10-13-2023 take 1 tablet by mouth twice daily Sacubitril-Valsartan (Entresto) 24-26 mg tablet Discontinued 1 TAB PO Twice daily March 10, 2023 1:00am September 15, 2023 6:54pm Start: 02-12-2023 take 1 tablet by vickie th in the morning Entresto 24-26 MG tablet Take 1 tablet by mouth in the morning and 1 tablet in the evening. 02/12/2023 Active Start: 05-27-2022 take 1 tablet by vickie th twice daily Entresto 24 mg-26 mg oral tablet 1 tab(s), Oral, BID, Refill(s) 0 Start Date: 05/27/22 Status: Ordered Ozempic (2 sources) Start: 05-27-2022 Ozempic Refill(s) 0 Start Date: 05/27/22 Status: Ordered Semaglutide (1 source) Start: 11-03-2024 inject 2 mg by subcutaneous injection every week Semaglutide (Ozempic) 2 mg/dose (8 mg/3 mL) pen injector Active 2 MG SUBCUT every week November 03, 2024 12:00am Complies with drug therapy spironolactone 25 mg oral tablet (16 sources) Aldosterone Antagonist Start: 11-03-2024 take 1 tablet by mouth twice daily Spironolactone 25 mg tablet Active 25 MG PO Twice daily November 03, 2024 12:00am Complies with drug therapy Start: 11-03-2023 Start: 09-15-2023 End: 11-01-2023 take 1 tablet by mouth once daily Spironolactone 25 mg Tablet Discontinued 25 MG PO Daily September 15, 2023 12:00am October 26, 2023 10:10am tamsulosin hydrochloride 0.4 mg oral capsule (20 sources) alpha-Adrenergic Radha Start: 02-09-2023 take 1 capsule by mouth at bedtime Tamsulosin 0.4 mg capsule Active 0.4 MG PO Bedtime March 10, 2023 1:00am Complies with drug therapy Start: 02-09-2023 End: 12-13-2023 take 1 capsule by mouth at bedtime Tamsulosin 0.4 mg capsule Active 0.4 MG PO Bedtime March 10, 2023 12:00am terbinafine 250 mg oral tablet (2 sources) Allylamine Antifungal Start: 05-27-2022 terbinafine 250 mg Tab use one week per month, Refills(s) 0 Start Date: 05/27/22 Status: Ordered triamcinolone acetonide 0.001 mg/mg topical ointment (1 source) Corticosteroid Start: 05-26-2022 End: 02-23-2023 triamcinolone (Kenalog) 0.1 % ointment apply twice a day TO SCALP twice a day for 2 weeks AFTER EFUDEX USE 0 05/26/2022 02/23/2023 Discontinued (Other) Vericiguat (2 sources) Start: 10-19-2023 take 1 tablet by mouth once daily Vericiguat (Verquvo) 10 mg tablet Active 10 MG PO Daily October 19, 2023 12:00am Complies with drug therapy Start: 10-19-2023 take 1 tablet by mouth once da marisabel Vericiguat (Verquvo) 10 mg tablet (8 sources) Start: 10-19-2023 take 1 tablet by mouth once daily Vericiguat (Verquvo) 10 mg tablet Active 10 MG PO Daily October 18, 2023 11:00pm Start: 10-19-2023 take 1 tablet by vickie th once daily Vericiguat (Verquvo) 10 mg tablet Active 10 MG PO Daily October 19, 2023 12:00am vericiguat (Verquvo) 10 mg tablet (4 sources) Start: 11-13-2023 take 1 tablet by mouth once daily vericiguat (Verquvo) 10 mg tablet Indications: Severe aortic stenosis Take 10 mg by mouth once daily. 90 tablet 2 11/13/2023 Active Verquvo 10 MG tablet (8 sources) take 1 tablet by mouth once daily Verquvo 10 MG tablet Take 1 tablet by mouth Daily Active Vitamin B12 100 mcg oral tablet (2 sources) Start: 05-27-2022 take 1 tablet by mouth once daily Vitamin B12 100 mcg oral tablet 100 mcg = 1 tab(s), Oral, Daily, Refills(s) 0 Start Date: 05/27/22 Status: Ordered Vitamin D3 2000 intl units (2 sources) Start: 05-27-2022 take 1 tablet by mouth once daily Vitamin D3 2000 intl units = 1 tab(s), Oral, Daily, Refills(s) 0 Start Date: 05/27/22 Status: Ordered (2 sources) Start: 11-13-2023 End: 11-13-2023 (1 source) Start: 11-04-2023 Completed/Discontinued Medications Medication Drug Class(es) Dates Sig (Normalized) Sig (Original) acetaminophen 325 mg / HYDROcodone bitartrate 5 mg oral tablet (19 sources) Opioid Agonist Start: 10-19-2023 End: 11-03-2024 take 1 tablet by mouth every four hours as needed for pain Hydrocodone-Aceta minophen 5-325 mg tablet Discontinued 1 TAB PO Every 4 hours as needed for pain 02 27October 26, 2023 November 03, 2024 12:36pm aspirin 81 mg delayed release oral tablet (20 sources) Platelet Aggregation Inhibitor, Nonsteroidal Anti-inflammatory Drug Start: 09-09-2017 End: 03-10-2023 take 1 tablet by mouth once daily Aspirin (Aspirin Low Dose) 81 mg Tablet,Delayed Release (Dr/Ec) Discontinued 81 MG PO Daily September 09, 2017 12:00am March 10, 2023 10:48am calcium chloride 0.0014 meq/ml / potassium chloride 0.004 meq/ml / sodium chloride 0.103 meq/ml / sodium lactate 0.028 meq/ml injectable solution (1 source) Start: 11-12-2023 End: 11-12-2023 ceFAZolin 2000 mg injection (1 source) Cephalosporin Antibacterial Start: 11-12-2023 End: 11-12-2023 cephalexin 500 mg oral capsule (20 sources) Cephalosporin Antibacterial Start: 09-09-2017 End: 03-10-2023 take 1 capsule by mouth every twelve hours Cephalexin 500 mg Capsule Discontinued 500 MG PO Q12H September 09, 2017 12:00am March 10, 2023 10:49am chlorothiazide 500 mg injection (2 sources) Thiazide Diuretic Start: 11-06-2023 End: 11-07-2023 clindamycin 300 mg oral capsule (16 sources) Lincosamide Antibacterial Start: 03-12-2023 End: 09-09-2023 take 2 capsules by mouth three times daily Clindamycin Hcl 300 mg capsule Discontinued 600 MG PO Three times daily 02 27March 12, 2023 1:00am September 09, 2023 12:11pm Start: 03-12-2023 End: 09-09-2023 take 600 mg by mouth three times daily Clindamycin Hcl Discontinued 600 MG PO Three times daily 02 27March 12, 2023 1:00am September 09, 2023 12:11pm clopidogrel 75 mg oral tablet (20 sources) P2Y12 Platelet Inhibitor Start: 03-15-2017 End: 09-09-2017 take 1 tablet by mouth once daily Clopidogrel 75 mg tablet Discontinued 1 TAB PO Daily March 15, 2017 1:00am September 09, 2017 9:55am empagliflozin 10 mg oral tablet (20 sources) Sodium-Glucose Cotransporter 2 Inhibitor Start: 09-09-2017 End: 03-10-2023 take 1 tablet by mouth once daily Empagliflozin (Jardiance) 10 mg Tablet Discontinued 10 MG PO Daily September 09, 2017 12:00am March 10, 2023 10:50am Start: 03-15-2017 End: 08-09-2017 Empagliflozin (Jardiance) 10 mg tablet Discontinued 1 TAB PO As Directed March 15, 2017 1:00am August 09, 2017 8:09am 0.85 ml exenatide 2.35 mg/ml auto-injector (20 sources) GLP-1 Receptor Agonist Start: 02-03-2023 End: 10-19-2023 Exenatide Microspheres (Bydureon Bcise) 2 mg/0.85 mL auto-injector Discontinued 2 MG SUBCUT every week March 10, 2023 1:00am October 19, 2023 2:46pm mondays Finerenone (17 sources) Start: 03-10-2023 End: 09-09-2023 take 1 tablet by mouth once daily Finerenone (Kerendia) 20 mg Tablet Discontinued 20 MG PO Daily March 10, 2023 12:00am September 09, 2023 11:12am Start: 03-10-2023 End: 09-09-2023 take 1 tablet by mouth once daily Finerenone (Kerendia) 20 mg Tablet Discontinued 20 MG PO Daily March 10, 2023 1:00am September 09, 2023 12:12pm Start: 03-10-2023 take 1 tablet by vickie th once daily Finerenone (Kerendia) 20 mg Tablet Active 20 MG PO Daily March 10, 2023 1:00am Start: 03-10-2023 take 1 tablet by vickie th once daily Finerenone (Kerendia) 20 mg Tablet Active 20 MG PO Daily March 10, 2023 12:00am 4 ml furosemide 10 mg/ml inj ection (20 sources) Loop Diuretic Start: 11-10-2023 End: 11-10-2023 Start: 11-08-2023 End: 11-08-2023 Start: 11-08-2023 End: 11-08-2023 Start: 11-05-2023 End: 11-05-2023 Start: 11-04-2023 End: 11-04-2023 Start: 11-02-2023 End: 11-04-2023 Start: 09-09-2023 End: 10-26-2023 Furosemide 40 mg tablet Disc ontinued 80 MG PO Twice daily September 09, 2023 12:00am October 26, 2023 10:10am Patient takes 2 in the morning and 2 at 1500 states he started this 2 weeks ago Start: 06-23-2023 End: 06-22-2024 take 1 tablet by mouth in the morning furosemide (Lasix) 40 MG tablet Take 40 mg by mouth in the morning. 06/23/2023 06/22/2024 Active Start: 06-23-2023 End: 11-01-2023 Furosemide Discontinued 80 M G PO Twice daily September 09, 2023 12:00am October 26, 2023 10:10am Patient takes 2 in the morning and 2 at 1500 states he started this 2 weeks ago gabapentin 300 mg oral capsule (20 sources) Anti-epileptic Agent Start: 09-09-2017 End: 03-10-2023 take 1 capsule by mouth three times daily Gabapentin 300 mg Capsule Discontinued 1 CAP PO Three times daily September 09, 2017 12:00am March 10, 2023 10:50am inFLIXimab 100 mg injection (20 sources) Tumor Necrosis Factor Radha Start: 03-10-2023 End: 10-19-2023 Infliximab (Remicade) 100 mg Recon Soln Discontinued 0 .ROUTE .COMPLEX March 10, 2023 1:00am October 19, 2023 2:46pm as directed. pt. states approx every 8 weeks Start: 05-27-2022 Remicade as di rected, Refills(s) 0 Start Date: 05/27/22 Status: Ordered Start: 08-09-2017 End: 09-09-2017 Infliximab (Remicade) 100 mg Recon Soln Discontinued 0 mg/kg IV Once Protocol: Age less than 75 years, to be administred with initial in subcutaneous dose August 09, 2017 12:00am September 09, 2017 9:55am Please contact the information source for Protocol details. Start: 08-09-2017 End: 09-09-2017 take 100 mg intravenously once Infliximab (Remicade) 1 00 mg Recon Soln Discontinued 0 mg/kg IV Once August 09, 2017 12:00am September 09, 2017 9:55am Please contact the information source for Protocol details. End: 11-01-2023 inFLIXimab ([place] b[place]on) 100 mg injection Infuse 600 mg into a venous catheter once daily. 0 Active Infliximab (Remicade) 100 mg Recon Soln (15 sources) Start: 03-10-2023 End: 07-23-2024 Infliximab (Remicade) 100 mg Recon Soln Discontinued 0 .ROUTE .COMPLEX March 10, 2023 12:00am October 19, 2023 1:46pm as directed. pt. states approx every 8 weeks Start: 03-10-2023 End: 10-19-2023 Infliximab (Remicade) 100 mg Recon Soln Discontinued 0 .ROUTE .COMPLEX March 10, 2023 1:00am October 19, 2023 2:46pm as directed. pt. states approx every 8 weeks Start: 03-10-2023 Infliximab (Re micade) 100 mg Recon Soln Active 0 .ROUTE .COMPLEX March 10, 2023 1:00am as directed. pt. states approx every 8 weeks Start: 03-10-2023 Infliximab (Re micade) 100 mg Recon Soln Active 0 .ROUTE .COMPLEX March 10, 2023 12:00am as directed. pt. states approx every 8 weeks 3 ml insulin aspart, human 100 unt/ml pen injector (2 sources) Insulin Analog Start: 10-26-2023 End: 11-03-2024 Insulin Aspart U-100 (Novolo g Flexpen U-100 Insulin) 100 unit/mL (3 mL) Insulin Pen Discontinued 0 UNIT SUBCUT 3X/Day with meals and bedtime Protocol: *If the corrective scale dose has been administered within the past 4 hours, do not use corrective scale again unless approved by prescriber* Condition: Corrective Scale #2 (TDI 26-50 UNITS) Condition: Dose/Route: Instructions: Condition: Fingerstick Blood Glucose Dose/Route: Insulin Units Condition: 150-199 mg/dl Dose/Route: 2 unit Condition: 200-249 mg/dl Dose/Route: 3 unit Condition: 250-299 mg/dl Dose/Route: 5 unit Condition: 300-349 mg/dl Dose/Route: 7 unit Condition: 350-399 mg/dl Dose/Route: 8 unit Condition: greater than or = 400 mg/dl Dose/Route: 9 unit Instructions: Call Provider 1 October 26, 2023 12:00am November 03, 2024 12:37pm Please contact the information source for Protocol details. iohexol (OMNIPaque) 350 mg iodine/mL solution 50 mL (1 source) Start: 10-06-2023 End: 10-06-2023 50 mL, intravenous, Once in imaging, Starting on Wed10/06/23 at 1300, For 1 dose 3 ml liraglutide 6 mg/ml pen injector (20 sources) GLP-1 Receptor Agonist Start: 08-09-2017 End: 09-09-2017 Liraglutide (Victoza 2-Mike) 0.6 mg/0.1 mL (18 mg/3 mL) Pen Injector Discontinued 1.8 MG SUBCUT daily August 09, 2017 12:00am September 09, 2017 9:55am 50 ml magnesium sulfate 40 mg/ml injection (3 sources) Start: 11-05-2023 End: 11-06-2023 Start: 11-01-2023 End: 11-02-2023 metFORMIN hydrochloride 850 mg oral tablet (20 sources) Biguanide Start: 02-11-2023 End: 11-13-2023 take 1 tablet by mouth once daily Metformin 850 mg tablet Discontinued 850 MG PO Daily March 10, 2023 1:00am October 26, 2023 10:10am Start: 02-11-2023 metFORMIN (Glu cophage) 850 MG tablet Take 50 mg by mouth in the morning. 02/11/2023 Active Start: 05-27-2022 take 1 tablet by vickie th once daily metformin 850 mg Tab 850 mg = 1 tab(s), Oral, Daily, Refills(s) 0 Start Date: 05/27/22 Status: Ordered Start: 03-15-2017 End: 09-09-2017 Metformin 500 mg tablet Disc ontinued 1 TAB PO As Directed March 15, 2017 1:00am September 09, 2017 9:56am Start: 03-15-2017 End: 09-09-2017 Metformin Discontinued 1 TAB PO As Directed March 15, 2017 1:00am September 09, 2017 9:56am metOLazone 2.5 mg oral tablet (2 sources) Thiazide-like Diuretic Start: 10-13-2023 End: 10-12-2024 24 hr mirabegron 50 mg extended release oral tablet (20 sources) beta3-Adrenergic Agonist Start: 03-15-2017 End: 08-09-2017 take 1 tablet by mouth every twenty-fou r hours Mirabegron (Myrbetriq) 50 mg tablet extended release 24 hr Discontinued 1 TAB PO As Directed March 15, 2017 1:00am August 09, 2017 8:12am olmesartan medoxomil 40 mg oral tablet (20 sources) Angiotensin 2 Receptor Radha Start: 03-15-2017 End: 08-09-2017 take 1 tablet by mouth once daily Olmesartan 40 mg tablet Discontinued 1 TAB PO Daily March 15, 2017 1:00am August 09, 2017 8:12am pioglitazone 15 mg oral tablet (20 sources) Peroxisome Proliferator Receptor alpha Agonist, Peroxisome Proliferator Receptor gamma Agonist, Thiazolidinedione Start: 03-15-2017 End: 08-09-2017 take 1 tablet by mouth once daily Pioglitazone 15 mg tablet Discontinued 1 TAB PO Daily March 15, 2017 1:00am August 09, 2017 8:13am microencapsulated potassium chloride 20 meq extended release oral tablet (4 sources) Start: 11-09-2023 End: 11-09-2023 Start: 11-05-2023 End: 11-06-2023 take 40 mEq by mouth every two hours Start: 11-02-2023 End: 11-02-2023 take 40 mEq by mouth every four hours regadenoson (Lexiscan) injec tion 0.4 mg (2 sources) Start: 07-01-2023 End: 07-01-2023 regadenoson (Lexiscan) injection 0.4 mg sodium chloride 0.111 meq/ml nasal spray (4 sources) Start: 11-02-2023 End: 11-12-2023 Start: 09-27-2023 End: 10-06-2023 300 mL/hr, intravenous, Once , On Wed09/27/23 at 1615, For 1 dose, 300cc/hr for 3 hours then bolus remainder Start: 09-27-2023 sodium chlorid e 0.9% infusion Tc-99m tetrofosmin (Myoview) injection 11.3 millicurie (2 sources) Start: 07-01-2023 End: 07-01-2023 Tc-99m tetrofosmin (Myoview) injection 11.3 millicurie Tc-99m tetrofosmin (Myoview) injection 33.1 millicurie (2 sources) Start: 07-01-2023 End: 07-01-2023 Tc-99m tetrofosmin (Myoview) injection 33.1 millicurie traMADol hydrochloride 50 mg oral tablet (20 sources) Opioid Agonist Start: 03-15-2017 End: 08-09-2017 Tramadol 50 mg tablet Discontinued 1 TAB PO As Directed March 15, 2017 1:00am August 09, 2017 8:14am Start: 03-15-2017 End: 08-09-2017 Tramadol Discontinued 1 TAB PO As Directed March 15, 2017 1:00am August 09, 2017 8:14am valsartan 40 mg oral tablet (14 sources) Angiotensin 2 Receptor Radha Start: 09-15-2023 End: 11-01-2023 take 1 tablet by mouth once daily Valsartan 40 mg tablet Discontinued 40 MG PO Daily September 15, 2023 12:00am October 26, 2023 10:10am (2 sources) Start: 11-04-2023 End: 11-04-2023 Start: 11-04-2023 take [id number] [IU] intravenou sly every four hours as needed (1 source) End: 11-01-2023 (2 sources) Start: 11-13-2023 End: 11-13-2023 Start: 11-12-2023 End: 11-12-2023 Problems Active Problems Problem Classification Problem Date Documented Da te Episodic/Chronic Acute and unspecified renal failure (20 sources) Acute renal failure syndrome; 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: [Acute kidney failure, unspecified] 10-19-2023 Episodic Cancer of colon (20 sources) Adenocarcinoma of large intestine; 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: [Malignant neoplasm of colon, unspecified] Onset: 3 Resolved: 4 05-27-2022 Chronic Cardiac dysrhythmias (20 sources) Atrial fibrillation; 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: [Unspecified atrial fibrillation] Onset: 3 Resolved: 4 05-27-2022 Chronic Chronic kidney disease (9 sources) Chronic kidney disease; 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: [Chronic kidney disease, unspecified] 11-22-2023 Chronic Chronic kidney disease (2 sources) Chronic kidney disease; 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: [Chronic kidney disease, stage 3b (Multi)] Onset: 5 Conduction disorders (20 sources) Atrioventricular block; 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: [Unspecified atrioventricular block] Onset: 3 Resolved: 4 03-13-2023 Chronic Congestive heart failure; nonhypertensive (20 sources) Heart failure; 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: [Heart failure, unspecified] Onset: 3 Resolved: 5 05-27-2022 Chronic Coronary atherosclerosis and other heart disease (19 sources) Single coronary vessel disease; 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: [Atherosclerotic heart disease of [place] coronary artery without angina pectoris] Onset: 4 Resolved: 5 10-13-2023 Chronic Deficiency and other anemia (20 sources) Anemia; 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: [Anemia, unspecified] Onset: 4 Resolved: 5 10-19-2023 Episodic Deficiency and other anemia (8 sources) Anemia, unspecified; 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: [Anemia, unspecified] 10-19-2023 Episodic Deficiency and other anemia (9 sources) Chronic anemia; 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: [Anemia, unspecified] 10-20-2023 Episodic Diabetes mellitus without complication (20 sources) Diabetes mellitus; 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: [Type 2 diabetes mellitus without complications] Onset: 3 Resolved: 4 05-27-2022 Chronic Disorders of lipid metabolism (20 sources) Hypercholesterolemia; 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: [Pure hypercholesterolemia, unspecified] Onset: 3 Resolved: 4 05-27-2022 Chronic Diverticulosis and diverticulitis (1 source) Diverticulosis of large intestine without perforation or abscess without bleeding; 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: [DVRTCLOS LG INT NO PERF/ABSC W/O BL] Onset: 3 Chronic Essential hypertension (20 sources) Hypertensive disorder; 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: [Essential (primary) hypertension] Onset: 3 Resolved: 4 05-27-2022 Chronic Fluid and electrolyte disorders (20 sources) Hypokalemia; 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: [Hypokalemia] 09-11-2023 Episodic Gastrointestinal hemorrhage (12 sources) Gastrointestinal hemorrhage; 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: [Gastrointestinal hemorrhage, unspecified] 07-23-2024 Episodic Heart valve disorders (20 sources) Nonrheumatic aortic (valve) stenosis; 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: [Severe aortic valve stenosis] Onset: 4 Resolved: 5 09-11-2023 Chronic Immunity disorders (20 sources) Immunosuppression; 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: [Immunodeficiency, unspecified] Onset: 3 Resolved: 4 05-27-2022 Chronic Nutritional deficiencies (20 sources) Vitamin D deficiency; 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: [Vitamin D deficiency, unspecified] Onset: 3 Resolved: 4 05-27-2022 Chronic Other aftercare (1 source) Encounter for follow-up examination after completed treatment for malignant neoplasm; 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: [Encounter for follow-up examination after completed treatment for malignant neoplasm] Onset: 5 Episodic Other and ill-defined heart disease (12 sources) Chronic systolic dysfunction of left ventricle; 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: [Heart disease, unspecified] 09-11-2023 Chronic Other and ill-defined heart disease (2 sources) Heart disease, unspecified; 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: [Heart disease, unspecified] 10-19-2023 Chronic Other and unspecified benign neoplasm (1 source) Benign neoplasm of descending colon; 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: [BENIGN NEOPLASM OF DESCENDING COLON] Onset: 3 Episodic Other and unspecified benign neoplasm (1 source) Benign neoplasm of ascending colon; 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: [BENIGN NEOPLASM OF ASCENDING COLON] Onset: 3 Episodic Other gastrointestinal disorders (1 source) Abnormal feces; 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: [Other fecal abnormalities] Onset: 3 Episodic Other gastrointestinal disorders (4 sources) Other fecal abnormalities; 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: [OTHER FECAL ABNORMALITIES] Onset: 3 Episodic Other nutritional; endocrine; and metabolic disorders (2 sources) Body mass index (BMI) 30.0-30.9, adult; 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: [Body mass index (BMI) 30.0-30.9, adult] Onset: 4 Chronic Other nutritional; endocrine; and metabolic disorders (2 sources) Body mass index (BMI) 28.0-28.9, adult; 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: [Body mass index (BMI) 28.0-28.9, adult] Onset: 5 Episodic Other upper respiratory disease (2 sources) Chronic rhinitis; 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: [Chronic rhinitis] 04-11-2024 Chronic Other upper respiratory disease (6 sources) Epistaxis; 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: [Epistaxis] 04-11-2024 Episodic Other upper respiratory disease (6 sources) Deviated nasal septum; 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: [Deviated nasal septum] 04-11-2024 Episodic Pulmonary heart disease (20 sources) Pulmonary hypertension; 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: [Pulmonary hypertension, unspecified] Onset: 4 Resolved: 4 06-23-2023 Chronic Residual codes; unclassified (20 sources) Sleep apnea; 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: [Sleep apnea, unspecified] Onset: 3 Resolved: 4 05-27-2022 Chronic Residual codes; unclassified (1 source) Sleep apnea, unspecified; 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: [SLEEP APNEA UNSPECIFIED] Onset: 3 Chronic Residual codes; unclassified (1 source) Obstructive sleep apnea syndrome; 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: [Obstructive sleep apnea (adult) (pediatric)] 01-25-2024 Chronic Residual codes; unclassified (2 sources) Obstructive sleep apnea (adult) (pediatric); 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: [Obstructive sleep apnea (adult) (pediatric)] Onset: 3 Chronic Residual codes; unclassified (2 sources) Edema; 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: [Edema, unspecified] 01-25-2024 Episodic Respiratory failure; insufficiency; arrest (adult) (12 sources) Acute respiratory failure; 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: [Acute respiratory failure with hypoxia] 09-15-2023 Episodic Rheumatoid arthritis and related disease (20 sources) Rheumatoid arthritis; 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: [Rheumatoid arthritis, unspecified] Onset: 3 Resolved: 4 05-27-2022 Chronic Thyroid disorders (20 sources) Hypothyroidism; 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: [Hypothyroidism, unspecified] Onset: 3 Resolved: 4 05-27-2022 Chronic Unclassified (1 source) CONTACT W/AND (SUSP) EXPOS COVID-19; 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: [CONTACT W/AND (SUSP) EXPOS COVID-19] Onset: 2 Unclassified (1 source) Aortic stenosis, severe 01-12-2024 Unclassified (6 sources) Other persistent atrial fibrillation; 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: [Other persistent atrial fibrillation (Multi)] Onset: 3 Past or Other Problems Problem Classification Problem Date Documented Date Episodic/Chronic Cancer of colon (20 sources) History of malignant neoplasm of colon; 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: [Personal history of other malignant neoplasm of large intestine] Onset: 06-03-2022 Resolved: 08-09-2023 Episodic Cardiac dysrhythmias (20 sources) Bradycardia; 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: [Bradycardia, unspecified] Onset: 02-23-2023 Resolved: 08-09-2023 02-23-2023 Episodic Deficiency and other anemia (1 source) Iron deficiency anemia; 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: [Iron deficiency anemia, unspecified] 11-13-2023 Episodic Hypertension with complications and secondary hypertension (20 sources) Hypertensive heart disease; 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: [Hypertensive heart disease with heart failure] Onset: 07-16-2022 Resolved: 08-09-2023 05-27-2022 Chronic Malaise and fatigue (1 source) Weakness; 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: [WEAKNESS] Onset: 10-24-2021 Episodic Other aftercare (20 sources) Long-term current use of 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; 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] Onset: 02-23-2023 Resolved: 08-09-2023 05-27-2022 Episodic Other aftercare (3 sources) USP (current) use of 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s; 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: [PRISON CURRNT USE ANTICOAGULANTS] Onset: 07-16-2022 Episodic Other aftercare (1 source) USP (current) use of oral hypoglycemic drugs; 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: [PRISON USE ORAL HYPOGLYCEMIC DX] Onset: 10-24-2021 Episodic Other aftercare (1 source) Other chcf (current) drug therapy; 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: [OTH PRISON CURRENT DRUG THERAPY] Onset: 10-24-2021 Episodic Other and unspecified benign neoplasm (20 sources) Benign neoplasm of transverse colon; 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: [Benign neoplasm of transverse colon] Onset: 07-21-2022 Resolved: 08-09-2023 Episodic Other and unspecified benign neoplasm (20 sources) Benign neoplasm of descending colon; 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: [Benign neoplasm of descending colon] Onset: 07-21-2022 Resolved: 08-09-2023 Episodic Other connective tissue disease (1 source) Other bursitis of elbow, right elbow; 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: [OTHER BURSITIS OF ELBOW RIGHT ELBOW] Onset: 10-24-2021 Episodic Other diseases of kidney and ureters (20 sources) Kidney disease; 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: [Disorder of kidney and ureter, unspecified] Onset: 02-23-2023 Resolved: 08-09-2023 05-27-2022 Episodic Other lower respiratory disease (20 sources) Dyspnea; 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: [Shortness of breath] Onset: 02-23-2023 Resolved: 08-09-2023 02-23-2023 Episodic Other lower respiratory disease (2 sources) Shortness of breath; 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: [Shortness of breath] Onset: 02-23-2023 Episodic Other non-traumatic joint disorders (3 sources) Pain in right elbow; 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: [PAIN IN RIGHT ELBOW] Onset: 10-22-2021 Episodic Other nutritional; endocrine; and metabolic disorders (20 sources) Body mass index 30+ - obesity; 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: [Body mass index (BMI) 32.0-32.9, adult] Onset: 06-23-2023 Resolved: 08-09-2023 06-23-2023 Chronic Other nutritional; endocrine; and metabolic disorders (14 sources) Overweight in adulthood with body mass index of 25 or more but less than 30; 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: [Body mass index (BMI) 29.0-29.9, adult] Onset: 06-23-2023 Resolved: 08-09-2023 06-03-2022 Episodic Other screening for suspected conditions (not mental disorders or infectious disease) (20 sources) Stool DNA-based colorectal cancer screening positive; 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: [Other fecal abnormalities] Onset: 01-21-2017 Resolved: 08-09-2023 05-27-2022 Episodic Susana-; endo-; and myocarditis; cardiomyopathy (except that caused by tuberculosis or sexually transmitted disease) (9 sources) Dilated cardiomyopathy; 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] Onset: 10-13-2023 Resolved: 01-25-2024 10-13-2023 Chronic Residual codes; unclassified (2 sources) Administration of medication contraindicated; 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: [Procedure and treatment not carried out because of other contraindication] Onset: 07-12-2024 07-12-2024 Episodic Residual codes; unclassified (2 sources) Edema, unspecified; 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: [Edema, unspecified] Onset: 10-13-2023 Episodic Screening and history of mental health and substance abuse codes (16 sources) Personal history of nicotine dependence; 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: [Ex-smoker] Onset: 07-16-2022 Resolved: 04-11-2024 01-25-2024 Episodic Unclassified (20 sources) Onset: 02-23-2023 Resolved: 07-12-2024 02-23-2023 Results Test Name Value Interpretation Reference Range Facility Glucose Poct Glucometerson 0 11-13-2024 Commemt1 Glu2: Cleaned Meter Normal [facility] Comment on above: Result Comment: PERF ORMED BY: [facility] [place] [address] PATHOLOGIST IT RISK AND ASSURANCE SENIOR MANAGER ELROY GORMAN M.D. Performed By: #### G JOSE M #### Point of Care testing , Glucose [Mass/Vol] 100 mg/dL Normal [facility] Comment on above: Result Comment: [facility] [place] Glucose Reference Range is dependent on time and content of last meal. Glucose of more than 200 mg/dL in a nonstressed, ambulatory subject supports the diagnosis of Diabetes Mellitus. Performed By: #### G JOSE M #### Point of Care testing , Mike 11-13-2024 L ----- Specimen: [id number] Received: 11/13/24 Status: JOHNNY Valles Num: [id number] Spec Type: Surgical Subm Dr: Shabana Gutierrez DO Tissues: A Colon Biopsy (TRANSVERSE COLON POLYP) Procedures: HE/2, Gross/Micro L4 Age/ Patient Sex Location Account Attending Physician Shahid Sanchez 84/M [id number] Shabana Gutierrez DO SPEC NUM: [id number] RECD: 11/13/24 STATUS: JOHNNY VALLES NUM: [id number] RIVER: 11/13/[address] [facility] DR: Shabana Gutierrez DO ENTERED: 11/13/24 [facility] DR: JESSICA TYPE: Surgical DEPT: S ORDERED: HE/2, Gross/Micro L4 ORDERED: HE/2, Gross/Micro L4 Pathological Diagnosis Colon, transverse, polypectomy: - Fragments of tubular adenoma. Clinical Information History of colon cancer, weight loss, anemia, colon polyp. Gross Description Received in formalin labeled with the patients name, date of , and transverse colon is a shaw-washburn, focally erythematous, friable, 1 cm in greatest dimension polypoid fragment with adherent vegetative material. The specimen is inked black at the apparent point of attachment, serially sectioned, and entirely submitted in a single cassette. The vegetative material is retained. (1, ns, [id number]) Microscopic Description Microscopic examination is performed. CPT Codes 89087 Specimen: [id number] Received: 11/13/24 Status: JOHNNY Valles Num: [id number] Spec Type: Surgical Subm Dr: Shabana Gutierrez DO Tissues: A Colon Biopsy (TRANSVERSE COLON POLYP) Procedures: HE/2, Gross/Micro L4 Patient: Shahid Sanchez [id number] (Continued) Signed (signature on file) Thomas Lozano MD 11/14/24820 Normal [facility] Alanine aminotransferase [En zymatic activity/volume] in Serum or PlasmaOrdered By: Floyd Bolton on 08-08-2024 ALT [Catalytic activity/Vol] Alanine aminotransferase [Enzymatic activity/volume] in Serum or Plasma [facility] ALT [Catalytic activity/Vol] 16 U/L Normal [facility] Comment on above: Performed By: #### C MP, CBC, ESR #### [address] Albumin [Mass/volume] in Ser um or Plasma by Bromocresol green (BCG) dye binding methoOrdered By: Floyd Bolton on 08-08-2024 Albumin BCG dye [Mass/Vol] Albumin [Mass/volume] in Serum or Plasma by Bromocresol green (BCG) dye binding metho 3.5-5.7 [facility] Albumin BCG dye [Mass/Vol] 3.9 g/dL 3.5-5.7 [facility] Alkaline phosphatase [Enzyma tic activity/volume] in Serum or PlasmaOrdered By: Floyd Bolton on 08-08-2024 ALP [Catalytic activity/Vol] Alkaline phosphatase [Enzymatic activity/volume] in Serum or Plasma 34-104 [facility] ALP [Catalytic activity/Vol] 58 U/L Normal 34-104 [facility] Comment on above: Result Comment: PERF ORMED BY: [place] [address] PATHOLOGIST [employer] SENIOR MANAGER KACI MCCLAIN M.D. Performed By: #### C MP, CBC, ESR #### [address] Aspartate aminotransferase [ Enzymatic activity/volume] in Serum or PlasmaOrdered By: Floyd Bolton on 08-08-2024 AST [Catalytic activity/Vol] Aspartate aminotransferase [Enzymatic activity/volume] in Serum or Plasma 13-39 [facility] AST [Catalytic activity/Vol] 23 U/L Normal 13-39 [facility] Comment on above: Performed By: #### C MP, CBC, ESR #### [facility] [address] [place] [address] [place] Basophils Auto (Bld) [#/Vol] Ordered By: Floyd Bolton on 08-08-2024 Basophils (Bld) [#/Vol] Automated basophil count 0.0-0.2 [facility] Basophils [#/volume] in Bloo d by Automated countOrdered By: Floyd Bolton on 08-08-2024 Basophils (Bld) [#/Vol] 0.0 10*3/uL Normal 0.0-0.2 [facility] Comment on above: Performed By: #### C MP, CBC, ESR #### [facility] [address] Basophils/100 WBC Auto (Bld) Ordered By: Floyd Bolton on 08-08-2024 Basophils/100 WBC (Bld) Automated basophil % . [facility] Basophils/100 leukocytes in Blood by Automated countOrdered By: Floyd Bolton on 08-08-2024 Basophils/100 WBC (Bld) 0.9 % Normal . [facility] Comment on above: Performed By: #### C MP, CBC, ESR #### [facility] [address] Bilirubin.total [Mass/volume ] in Serum or PlasmaOrdered By: Floyd Bolton on 08-08-2024 Bilirubin [Mass/Vol] Bilirubin.total [Mass/volume] in Serum or Plasma 0.3-1.0 [facility] Bilirubin [Mass/Vol] 1.0 mg/dL Normal 0.3-1.0 [facility] Comment on above: Performed By: #### C MP, CBC, ESR #### [facility] [address] Calcium [Mass/volume] in Ser um or PlasmaOrdered By: Floyd Bolton on 08-08-2024 Calcium [Mass/Vol] Calcium [Mass/volume ] in Serum or Plasma 8.6-10.3 [facility] Calcium [Mass/Vol] 9.3 mg/dL Normal 8.6-10.3 [facility] Comment on above: Performed By: #### C MP, CBC, ESR #### [facility] [address] [place] [address] [place] Carbon dioxide, total [Moles /volume] in Serum or PlasmaOrdered By: Floyd Bolton on 08-08-2024 CO2 [Moles/Vol] Carbon dioxide, tota l [Moles/volume] in Serum or Plasma 21.0-31.0 [facility] CO2 [Moles/Vol] 23.7 mmol/L Normal 21.0-31.0 [facility] Comment on above: Performed By: #### C MP, CBC, ESR #### [address] Chloride [Moles/volume] in S paulo or PlasmaOrdered By: Floyd Bolton on 08-08-2024 Chloride [Moles/Vol] Chloride [Moles/vol ume] in Serum or Plasma 98-107 [facility] Chloride [Moles/Vol] 107 mmol/L Normal 98-107 [facility] Comment on above: Performed By: #### C MP, CBC, ESR #### [facility] [address] [place] [address] Complete Blood Count Auto Di ffon 08-08-2024 Mean Corpuscular HGB Conc 34.3 g/dL Normal 32.5-35.6 [facility] Comment on above: Performed By: #### C MP, CBC, ESR #### [facility] [address] [place] [address] NRBC% 0.1 /100{WBC} Normal 0-0.5 [facility] Comment on above: Performed By: #### C MP, CBC, ESR #### [address] Comprehensive Metabolic Pane mike 08-08-2024 Albumin [Mass/Vol] 3.9 g/dL Normal 3.5-5.7 [facility] Comment on above: Performed By: #### C MP, CBC, ESR #### [address] Estimated GFR 50.182 mL/Min Normal [facility] Comment on above: Performed By: #### C MP, CBC, ESR #### [address] Creatinine [Mass/volume] in Serum or PlasmaOrdered By: Floyd Bolton on 08-08-2024 Creatinine [Mass/Vol] Creatinine [Mass/v olume] in Serum or Plasma High 0.70-1.30 [facility] Creatinine [Mass/Vol] 1.40 mg/dL High 0.70-1.30 [facility] Comment on above: Performed By: #### C MP, CBC, ESR #### [address] Eosinophils Auto (Bld) [#/Vo l]Ordered By: Floyd Bolton on 08-08-2024 Eosinophils (Bld) [#/Vol] Automated eosinophil count 0.0-0.45 [facility] Eosinophils [#/volume] in Bl ood by Automated countOrdered By: Floyd Bolton on 08-08-2024 Eosinophils (Bld) [#/Vol] 0.1 10*3/uL Normal 0.0-0.45 [facility] Comment on above: Performed By: #### C MP, CBC, ESR #### [address] Eosinophils/100 WBC Auto (Bl d)Ordered By: Floyd Bolton on 08-08-2024 Eosinophils/100 WBC (Bld) Automated eosinophil % . [facility] Eosinophils/100 leukocytes i n Blood by Automated countOrdered By: Floyd Bolton on 08-08-2024 Eosinophils/100 WBC (Bld) 2.6 % Normal . [facility] Comment on above: Performed By: #### C MP, CBC, ESR #### [address] Erythrocyte Sedimentation Ra umesh 08-08-2024 ESR (Bld) [Velocity] 17 mm/h Normal 0-19 [facility] Comment on above: Result Comment: PERF ORMED BY: [place] [address] PATHOLOGIST [employer] ASS[employer]ANCE SENIOR MANAGER KACI MCCLAIN M.D. Performed By: #### C MP, CBC, ESR #### [address] Erythrocyte distribution wid th Auto (RBC) [Ratio]Ordered By: Floyd Bolton on 08-08-2024 Erythrocyte distribution width (RBC) [Ratio] Erythrocyte distribution width [Ratio] by Automated count High 12.0-14.8 [facility] Erythrocyte distribution wid th [Ratio] by Automated countOrdered By: Floyd Bolton on 08-08-2024 Erythrocyte distribution width (RBC) [Ratio] 17.9 % High 12.0-14.8 [facility] Comment on above: Performed By: #### C MP, CBC, ESR #### [facility] [address] Erythrocyte sedimentation ra te by Photometric methodOrdered By: Floyd Bolton on 08-08-2024 ESR Photometric method (Bld) [Velocity] Erythrocyte sedimentation rate by Photometric method 0-19 [facility] ESR Photometric method (Bld) [Velocity] 17 mm/hr 0-19 [facility] Erythrocytes [#/volume] in B lood by Automated countOrdered By: Floyd Bolton on 08-08-2024 RBC (Bld) [#/Vol] 3.16 10*6/uL Low 3.90-5.60 [facility] Comment on above: Performed By: #### C MP, CBC, ESR #### [facility] [address] Globulin Calc (S) [Mass/Vol] Ordered By: Floyd Bolton on 08-08-2024 Globulin (S) [Mass/Vol] Serum globulin measurement by calculation (mass/volume) [facility] Glucose [Mass/volume] in Ser um or PlasmaOrdered By: Floyd Bolton on 08-08-2024 Glucose [Mass/Vol] Glucose [Mass/volume ] in Serum or Plasma High 70-100 [facility] Comment on above: ADA recommended refe rence rangeRandom Glucose Reference Range is dependent on time and content of last meal. Glucose of more than 200 mg/dL in a nonstressed, ambulatory subject supports the diagnosis of Diabetes Mellitus. Glucose [Mass/Vol] 138 mg/dL High 70-100 [facility] Comment on above: ADA recommended refe rence rangeRandom Glucose Reference Range is dependent on time and content of last meal. Glucose of more than 200 mg/dL in a nonstressed, ambulatory subject supports the diagnosis of Diabetes Mellitus. Result Comment: [place] Glucose Reference Range is dependent on time and content of last meal. Glucose of more than 200 mg/dL in a nonstressed, ambulatory subject supports the diagnosis of Diabetes Mellitus. ADA recommended reference range Performed By: #### C MP, CBC, ESR #### [address] Hematocrit Auto (Bld) [Volum e fraction]Ordered By: Floyd Bolton on 08-08-2024 Hematocrit (Bld) [Volume fraction] Hematocrit [Volume Fraction] of Blood by Automated count Low 38.8-50.0 [facility] Hematocrit [Volume Fraction] of Blood by Automated countOrdered By: Floyd Bolton on 08-08-2024 Hematocrit (Bld) [Volume fraction] 29.9 % Low 38.8-50.0 [facility] Comment on above: Performed By: #### C MP, CBC, ESR #### [address] Hemoglobin [Mass/volume] in BloodOrdered By: Floyd Bolton on 08-08-2024 Hemoglobin (Bld) [Mass/Vol] Hemoglobin [Mass/volume] in Blood Low 13.0-17.0 [facility] Hemoglobin (Bld) [Mass/Vol] 10.2 g/dL Low 13.0-17.0 [facility] Comment on above: Performed By: #### C MP, CBC, ESR #### [address] Leukocytes [#/volume] correc liborio for nucleated erythrocytes in Blood by Automated counOrdered By: Floyd Bolton on 08-08-2024 WBC corrected for nucl RBC Auto (Bld) [#/Vol] Leukocytes [#/volume] corrected for nucleated erythrocytes in Blood by Automated coun 4.1-10.5 [facility] WBC corrected for nucl RBC Auto (Bld) [#/Vol] 5.4 10*3/uL 4.1-10. [facility] Leukocytes [#/volume] in Blo od by Automated countOrdered By: Floyd Bolton on 08-08-2024 WBC (Bld) [#/Vol] 5.4 10*3/uL Normal 4.1-10.5 [facility] Comment on above: Performed By: #### C MP, CBC, ESR #### [facility] [address] [place] [address] Lymphocytes Auto (Bld) [#/Vo l]Ordered By: Floyd Bolton on 08-08-2024 Lymphocytes (Bld) [#/Vol] Lymphocytes [#/volume] in Blood by Automated count Low 1.00-4.8 [facility] Lymphocytes [#/volume] in Bl ood by Automated countOrdered By: Floyd Bolton on 08-08-2024 Lymphocytes (Bld) [#/Vol] 0.9 10*3/uL Low 1.00-4.8 [facility] Comment on above: Performed By: #### C MP, CBC, ESR #### [facility] [address] [place] [address] Lymphocytes/100 WBC Auto (Bl d)Ordered By: Floyd Bolton on 08-08-2024 Lymphocytes/100 WBC (Bld) Lymphocytes/100 leukocytes in Blood by Automated count . [facility] Lymphocytes/100 leukocytes i n Blood by Automated countOrdered By: Floyd Bolton on 08-08-2024 Lymphocytes/100 WBC (Bld) 16.9 % Normal . [facility] Comment on above: Performed By: #### C MP, CBC, ESR #### [address] MCH Auto (RBC) [Entitic mass ]Ordered By: Floyd Bolton on 08-08-2024 MCH (RBC) [Entitic mass] MCH [Entitic mass] by Automated count 27.5-35.2 [facility] MCH [Entitic mass] by Automa liborio countOrdered By: Floyd Bolton on 08-08-2024 MCH (RBC) [Entitic mass] 32.5 pg Normal 27.5-35.2 [facility] Comment on above: Performed By: #### C MP, CBC, ESR #### [address] MCHC Auto (RBC) [Mass/Vol]Or dered By: Floyd Bolton on 08-08-2024 MCHC (RBC) [Mass/Vol] MCHC [Mass/volume] by Automated count 32.5-35.6 [facility] MCHC (RBC) [Mass/Vol] 34.3 g/dL 32.5-35.6 [facility] MCV Auto (RBC) [Entitic vol] Ordered By: Floyd Bolton on 08-08-2024 MCV (RBC) [Entitic vol] MCV [Entitic volume] by Automated count 83.5-101 [facility] MCV [Entitic volume] by Auto mated countOrdered By: Floyd Bolton on 08-08-2024 MCV (RBC) [Entitic vol] 94.7 fL Normal 83.5-101 [facility] Comment on above: Performed By: #### C MP, CBC, ESR #### [facility] [address] [place] [address] Monocytes Auto (Bld) [#/Vol] Ordered By: Floyd Bolton on 08-08-2024 Monocytes (Bld) [#/Vol] Automated blood monocyte count 0.0-0.8 [facility] Monocytes [#/volume] in Bloo d by Automated countOrdered By: Floyd Bolton on 08-08-2024 Monocytes (Bld) [#/Vol] 0.6 10*3/uL Normal 0.0-0.8 [facility] Comment on above: Performed By: #### C MP, CBC, ESR #### [facility] [address] [place] [address] [place] Monocytes/100 WBC Auto (Bld) Ordered By: Floyd Bolton on 08-08-2024 Monocytes/100 WBC (Bld) Automated monocyte % . [facility] Monocytes/100 leukocytes in Blood by Automated countOrdered By: Floyd Bolton on 08-08-2024 Monocytes/100 WBC (Bld) 12.1 % Normal . [facility] Comment on above: Performed By: #### C MP, CBC, ESR #### [facility] [address] [place] [address] Neutrophils Auto (Bld) [#/Vo l]Ordered By: Floyd Bolton on 08-08-2024 Neutrophils (Bld) [#/Vol] Neutrophils [#/volume] in Blood by Automated count 1.8-7.7 [facility] Neutrophils [#/volume] in Bl ood by Automated countOrdered By: Floyd Bolton on 08-08-2024 Neutrophils (Bld) [#/Vol] 3.6 10*3/uL Normal 1.8-7.7 [facility] Comment on above: Performed By: #### C MP, CBC, ESR #### [facility] [address] Neutrophils/100 WBC Auto (Bl d)Ordered By: Floyd Bolton on 08-08-2024 Neutrophils/100 WBC (Bld) Automated neutrophil % . [facility] Neutrophils/100 leukocytes i n Blood by Automated countOrdered By: Floyd Bolton on 08-08-2024 Neutrophils/100 WBC (Bld) 67.5 % Normal . [facility] Comment on above: Performed By: #### C MP, CBC, ESR #### [facility] [address] No Panel InformationOrdered By: Floyd Bolton on 08-08-2024 Estimated GFR (CKD-EPI) 50.182 mL/Min [facility] Creatinine Clearance (Chem N/A [facility] Nucleated erythrocytes [Pres ence] in Blood by Automated countOrdered By: Floyd Bolton on 08-08-2024 Nucleated RBC Auto Ql (Bld) Nucleated erythrocytes [Presence] in Blood by Automated count 0-0.5 [facility] Nucleated RBC Auto Ql (Bld) 0.1 /100{WBC} 0-0.5 [facility] Platelet mean volume Auto (B ld) [Entitic vol]Ordered By: Floyd Bolton on 08-08-2024 Platelet mean volume (Bld) [Entitic vol] Platelet mean volume [Entitic volume] in Blood by Automated count 6.6-10.1 [facility] Platelet mean volume [Entiti c volume] in Blood by Automated countOrdered By: Floyd Bolton on 08-08-2024 Platelet mean volume (Bld) [Entitic vol] 8.6 fL Normal 6.6-10.1 [facility] Comment on above: Performed By: #### C MP, CBC, ESR #### [address] Platelets Auto (Bld) [#/Vol] Ordered By: Floyd Bolton on 08-08-2024 Platelets (Bld) [#/Vol] Platelets [#/volume] in Blood by Automated count 150-450 [facility] Platelets [#/volume] in Bloo d by Automated countOrdered By: Floyd Bolton on 08-08-2024 Platelets (Bld) [#/Vol] 191 10*3/uL Normal 150-450 [facility] Comment on above: Performed By: #### C MP, CBC, ESR #### [address] Potassium [Moles/volume] in Serum or PlasmaOrdered By: lFoyd Bolton on 08-08-2024 Potassium [Moles/Vol] Potassium [Moles/v olume] in Serum or Plasma 3.5-5.1 [facility] Potassium [Moles/Vol] 3.7 mmol/L Normal 3.5-5.1 [facility] Comment on above: Performed By: #### C MP, CBC, ESR #### [address] Protein [Mass/volume] in Ser um or PlasmaOrdered By: Floyd Bolton on 08-08-2024 Protein [Mass/Vol] Protein [Mass/volume ] in Serum or Plasma 6.4-8.9 [facility] Protein [Mass/Vol] 6.4 g/dL Normal 6.4-8.9 [facility] Comment on above: Performed By: #### C MP, CBC, ESR #### [address] RBC Auto (Bld) [#/Vol]Ordere d By: Floyd Bolton on 08-08-2024 RBC (Bld) [#/Vol] Erythrocytes [#/volu me] in Blood by Automated count Low 3.90-5.60 [facility] Serum globulin measurement b y calculation (mass/volume)Ordered By: Floyd Bolton on 08-08-2024 Globulin (S) [Mass/Vol] 2.5 g/dL Normal [facility] Comment on above: Performed By: #### C MP, CBC, ESR #### [facility] [address] Serum or plasma albumin/glob ulin mass ratioOrdered By: Floyd Bolton on 08-08-2024 Albumin/Globulin [Mass ratio] Serum or plasma albumin/globulin mass ratio [facility] Albumin/Globulin [Mass ratio] 1.6 {ratio} Normal [facility] Comment on above: Performed By: #### C MP, CBC, ESR #### [facility] [address] Serum or plasma anion gap de terminationOrdered By: Floyd Bolton on 08-08-2024 Anion gap [Moles/Vol] Serum or plasma an ion gap determination 6.0-15.0 [facility] Anion gap [Moles/Vol] 13.0 mmol/L Normal 6.0-15.0 [facility] Comment on above: Performed By: #### C MP, CBC, ESR #### [facility] [address] Sodium [Moles/volume] in Ser um or PlasmaOrdered By: Floyd Bolton on 08-08-2024 Sodium [Moles/Vol] Sodium [Moles/volume ] in Serum or Plasma 136-145 [facility] Sodium [Moles/Vol] 140 mmol/L Normal 136-145 [facility] Comment on above: Performed By: #### C MP, CBC, ESR #### [facility] [address] Urea nitrogen [Mass/volume] in Serum or PlasmaOrdered By: Floyd Bolton on 08-08-2024 Urea nitrogen [Mass/Vol] Urea nitrogen [Mass/volume] in Serum or Plasma High 7-25 [facility] Urea nitrogen [Mass/Vol] 30 mg/dL [facility] 725 [facility] Comment on above: Performed By: #### C MP, CBC, ESR #### [facility] [address] [place] [id number] [facility] WBC Auto (Bld) [#/Vol]Ordere d By: Floyd Bolton on 08-08-2024 WBC (Bld) [#/Vol] Leukocytes [#/volume ] in Blood by Automated count 4.1-10.5 [facility] ECG 12 [place] 07-12-2024 Atrial fibrillation with controlled rate probable old inferior CO [facility] Work Phone: Alanine aminotransferase [En zymatic activity/volume] in Serum or PlasmaOrdered By: Floyd Bolton on 06-08-2024 ALT [Catalytic activity/Vol] Alanine aminotransferase [Enzymatic activity/volume] in Serum or Plasma 7-52 [facility] Albumin [Mass/volume] in Ser um or Plasma by Bromocresol green (BCG) dye binding methoOrdered By: Floyd Bolton on 06-08-2024 Albumin BCG dye [Mass/Vol] Albumin [Mass/volume] in Serum or Plasma by Bromocresol green (BCG) dye binding metho 3.5-5.7 [facility] Alkaline phosphatase [Enzyma tic activity/volume] in Serum or PlasmaOrdered By: Floyd Bolton on 06-08-2024 ALP [Catalytic activity/Vol] Alkaline phosphatase [Enzymatic activity/volume] in Serum or Plasma 34-104 [facility] Aspartate aminotransferase [ Enzymatic activity/volume] in Serum or PlasmaOrdered By: Floyd Bolton on 06-08-2024 AST [Catalytic activity/Vol] Aspartate aminotransferase [Enzymatic activity/volume] in Serum or Plasma 13-39 [facility] Basophils Auto (Bld) [#/Vol] Ordered By: Floyd Bolton on 06-08-2024 Basophils (Bld) [#/Vol] Automated basophil count 0.0-0.2 [facility] Basophils/100 WBC Auto (Bld) Ordered By: Floyd Bolton on 06-08-2024 Basophils/100 WBC (Bld) Automated basophil % . [facility] Bilirubin.total [Mass/volume ] in Serum or PlasmaOrdered By: Floyd Bolton on 06-08-2024 Bilirubin [Mass/Vol] Bilirubin.total [Mass/volume] in Serum or Plasma High 0.3-1.0 [facility] Comment on above: Samples from patient s who have taken Naproxen have shown spurious elevation in Total Bilirubin levels. A metabolite of Naproxen, O-desmethylnaproxen, has been shown to interfere with the Adeel method for measuring Total Bilirubin. Calcium [Mass/volume] in Ser um or PlasmaOrdered By: Floyd Bolton on 06-08-2024 Calcium [Mass/Vol] Calcium [Mass/volume ] in Serum or Plasma 8.6-10.3 [facility] Carbon dioxide, total [Moles /volume] in Serum or PlasmaOrdered By: Floyd Bolton on 06-08-2024 CO2 [Moles/Vol] Carbon dioxide, tota l [Moles/volume] in Serum or Plasma 21.0-31.0 [facility] Chloride [Moles/volume] in S paulo or PlasmaOrdered By: Floyd Bolton on 06-08-2024 Chloride [Moles/Vol] Chloride [Moles/vol ume] in Serum or Plasma 98-107 [facility] Complete Blood Count Auto Di ffon 06-08-2024 Basophils (Bld) [#/Vol] 0.0 10*3/uL Normal 0.0-0.2 [facility] Comment on above: Performed By: #### C MP, CBC, ESR #### [facility] [address] [place] [address] [place] Basophils/100 WBC (Bld) 0.7 % Normal . [facility] Comment on above: Performed By: #### C MP, CBC, ESR #### [facility] [address] [place] [id number] [place] Eosinophils (Bld) [#/Vol] 0.1 10*3/uL Normal 0.0-0.45 [facility] Comment on above: Performed By: #### C MP, CBC, ESR #### [facility] [address] [place] [id number] [facility] Eosinophils/100 WBC (Bld) 2.2 % Normal . [facility] Comment on above: Performed By: #### C MP, CBC, ESR #### [facility] [address] Erythrocyte distribution width (RBC) [Ratio] 18.9 % High 12.0-14.8 [facility] Comment on above: Performed By: #### C MP, CBC, ESR #### [address] Hematocrit (Bld) [Volume fraction] 30.8 % Low 38.8-50.0 [facility] Comment on above: Performed By: #### C MP, CBC, ESR #### [address] Hemoglobin (Bld) [Mass/Vol] 10.8 g/dL Low 13.0-17.0 [facility] Comment on above: Performed By: #### C MP, CBC, ESR #### [address] Lymphocytes (Bld) [#/Vol] 0.7 10*3/uL Low 1.00-4.8 [facility] Comment on above: Performed By: #### C MP, CBC, ESR #### [address] Lymphocytes/100 WBC (Bld) 13.9 % Normal . [facility] Comment on above: Performed By: #### C MP, CBC, ESR #### [address] MCH (RBC) [Entitic mass] 32.8 pg Normal 27.5-35.2 [facility] Comment on above: Performed By: #### C MP, CBC, ESR #### [address] MCV (RBC) [Entitic vol] 93.7 fL Normal 83.5-101 [facility] Comment on above: Performed By: #### C MP, CBC, ESR #### [address] Mean Corpuscular HGB Conc 35.0 g/dL Normal 32.5-35.6 [facility] Comment on above: Performed By: #### C MP, CBC, ESR #### [facility] [address] [place] [address] [place] Monocytes (Bld) [#/Vol] 0.5 10*3/uL Normal 0.0-0.8 [facility] Comment on above: Performed By: #### C MP, CBC, ESR #### [facility] [address] [place] [address] [place] Monocytes/100 WBC (Bld) 10.7 % Normal . [facility] Comment on above: Performed By: #### C MP, CBC, ESR #### [facility] [address] Neutrophils (Bld) [#/Vol] 3.6 10*3/uL Normal 1.8-7.7 [facility] Comment on above: Performed By: #### C MP, CBC, ESR #### [address] Neutrophils/100 WBC (Bld) 72.5 % Normal . [facility] Comment on above: Performed By: #### C MP, CBC, ESR #### [address] NRBC% 0.1 /100{WBC} Normal 0-0.5 [facility] Comment on above: Performed By: #### C MP, CBC, ESR #### [address] Platelet mean volume (Bld) [Entitic vol] 8.4 fL Normal 6.6-10.1 [facility] Comment on above: Performed By: #### C MP, CBC, ESR #### [facility] [address] [place] [address] [place] Platelets (Bld) [#/Vol] 186 10*3/uL Normal 150-450 [facility] Comment on above: Performed By: #### C MP, CBC, ESR #### [place] [address] [place] RBC (Bld) [#/Vol] 3.29 10*6/uL Low 3.90-5.60 [facility] Comment on above: Performed By: #### C MP, CBC, ESR #### [address] WBC (Bld) [#/Vol] 5.0 10*3/uL Normal 4.1-10.5 [facility] Comment on above: Performed By: #### C MP, CBC, ESR #### [address] Comprehensive Metabolic Pane mike 06-08-2024 Albumin [Mass/Vol] 3.9 g/dL Normal 3.5-5.7 [facility] Comment on above: Performed By: #### C MP, CBC, ESR #### [address] Albumin/Globulin [Mass ratio] 1.4 {ratio} Normal [facility] Comment on above: Performed By: #### C MP, CBC, ESR #### [address] ALP [Catalytic activity/Vol] 54 U/L Normal 34-104 [facility] Comment on above: Result Comment: PERF ORMED BY: [place] [address] PATHOLOGIST [employer] AND ASSURANCE SENIOR MANAGER KACI MCCLAIN M.D. Performed By: #### C MP, CBC, ESR #### [address] ALT [Catalytic activity/Vol] 17 U/L Normal 7-52 [facility] Comment on above: Performed By: #### C MP, CBC, ESR #### [address] Anion gap [Moles/Vol] 12.9 mmol/L Normal 6.0-15.0 [facility] Comment on above: Performed By: #### C MP, CBC, ESR #### [address] AST [Catalytic activity/Vol] 26 U/L Normal 13-39 [facility] Comment on above: Performed By: #### C MP, CBC, ESR #### [address] Bilirubin [Mass/Vol] 1.6 mg/dL High 0.3-1.0 [facility] Comment on above: Result Comment: Samp les from patients who have taken Naproxen have shown spurious elevation in Total Bilirubin levels. A metabolite of Naproxen, O-desmethylnaproxen, has been shown to interfere with the Jendrassik-Grof method for measuring Total Bilirubin. Performed By: #### C MP, CBC, ESR #### [address] Calcium [Mass/Vol] 9.2 mg/dL Normal 8.6-10.3 [facility] Comment on above: Performed By: #### C MP, CBC, ESR #### [address] Chloride [Moles/Vol] 106 mmol/L Normal 98-107 [facility] Comment on above: Performed By: #### C MP, CBC, ESR #### [address] CO2 [Moles/Vol] 24.9 mmol/L Normal 21.0-31.0 [facility] Comment on above: Performed By: #### C MP, CBC, ESR #### [address] Creatinine [Mass/Vol] 1.28 mg/dL Normal 0.70-1.30 [facility] Comment on above: Performed By: #### C MP, CBC, ESR #### [address] Estimated GFR 55.879 mL/Min Normal [facility] Comment on above: Performed By: #### C MP, CBC, ESR #### [address] Globulin (S) [Mass/Vol] 2.7 g/dL Normal [facility] Comment on above: Performed By: #### C MP, CBC, ESR #### [place] [address] [place] Glucose [Mass/Vol] 137 mg/dL High 70-100 [facility] Comment on above: Result Comment: [facility] [place] Glucose Reference Range is dependent on time and content of last meal. Glucose of more than 200 mg/dL in a nonstressed, ambulatory subject supports the diagnosis of Diabetes Mellitus. ADA recommended reference range Performed By: #### C MP, CBC, ESR #### [facility] [address] Potassium [Moles/Vol] 3.8 mmol/L Normal 3.5-5.1 [facility] Comment on above: Performed By: #### C MP, CBC, ESR #### [facility] [address] Protein [Mass/Vol] 6.6 g/dL Normal 6.4-8.9 [facility] Comment on above: Performed By: #### C MP, CBC, ESR #### [facility] [address] Sodium [Moles/Vol] 140 mmol/L Normal 136-145 [facility] Comment on above: Performed By: #### C MP, CBC, ESR #### [facility] [address] [place] [address] [place] Urea nitrogen [Mass/Vol] 28 mg/dL High 7-25 [facility] Comment on above: Performed By: #### C MP, CBC, ESR #### [facility] [address] Creatinine [Mass/volume] in Serum or PlasmaOrdered By: Floyd Bolton on 06-08-2024 Creatinine [Mass/Vol] Creatinine [Mass/v olume] in Serum or Plasma 0.70-1.30 [facility] Eosinophils Auto (Bld) [#/Vo l]Ordered By: Floyd Bolton on 06-08-2024 Eosinophils (Bld) [#/Vol] Automated eosinophil count 0.0-0.45 [facility] Eosinophils/100 WBC Auto (Bl d)Ordered By: Floyd Bolton on 06-08-2024 Eosinophils/100 WBC (Bld) Automated eosinophil % . [facility] Erythrocyte Sedimentation Ra umesh 06-08-2024 ESR (Bld) [Velocity] 19 mm/h Normal 0-19 [facility] Comment on above: Result Comment: PERF ORMED BY: [facility] [address] [place] [address] PATHOLOGIST [employer] ASSURANCE SENIOR MANAGER KACI MCCLAIN M.D. Performed By: #### C MP, CBC, ESR #### [address] Erythrocyte distribution wid th Auto (RBC) [Ratio]Ordered By: Floyd Bolton on 06-08-2024 Erythrocyte distribution width (RBC) [Ratio] Erythrocyte distribution width [Ratio] by Automated count High 12.0-14.8 [facility] Erythrocyte sedimentation ra te by Photometric methodOrdered By: Floyd Bolton on 06-08-2024 ESR Photometric method (Bld) [Velocity] Erythrocyte sedimentation rate by Photometric method 0-19 [facility] Globulin Calc (S) [Mass/Vol] Ordered By: Floyd Bolton on 06-08-2024 Globulin (S) [Mass/Vol] Serum globulin measurement by calculation (mass/volume) [facility] Glucose [Mass/volume] in Ser um or PlasmaOrdered By: Floyd Bolton on 06-08-2024 Glucose [Mass/Vol] Glucose [Mass/volume ] in Serum or Plasma High 70-100 [facility] Comment on above: ADA recommended refe rence rangeRandom Glucose Reference Range is dependent on time and content of last meal. Glucose of more than 200 mg/dL in a nonstressed, ambulatory subject supports the diagnosis of Diabetes Mellitus. Hematocrit Auto (Bld) [Volum e fraction]Ordered By: Floyd Bolton on 06-08-2024 Hematocrit (Bld) [Volume fraction] Hematocrit [Volume Fraction] of Blood by Automated count Low 38.8-50.0 [facility] Hemoglobin [Mass/volume] in BloodOrdered By: Floyd Bolton on 06-08-2024 Hemoglobin (Bld) [Mass/Vol] Hemoglobin [Mass/volume] in Blood Low 13.0-17.0 [facility] Leukocytes [#/volume] correc liborio for nucleated erythrocytes in Blood by Automated counOrdered By: Floyd Bolton on 06-08-2024 WBC corrected for nucl RBC Auto (Bld) [#/Vol] Leukocytes [#/volume] corrected for nucleated erythrocytes in Blood by Automated coun 4.1-10.5 [facility] Lymphocytes Auto (Bld) [#/Vo l]Ordered By: Floyd Bolton on 06-08-2024 Lymphocytes (Bld) [#/Vol] Lymphocytes [#/volume] in Blood by Automated count Low 1.00-4.8 [facility] Lymphocytes/100 WBC Auto (Bl d)Ordered By: Floyd Bolton on 06-08-2024 Lymphocytes/100 WBC (Bld) Lymphocytes/100 leukocytes in Blood by Automated count . [facility] MCH Auto (RBC) [Entitic mass ]Ordered By: Floyd Bolton on 06-08-2024 MCH (RBC) [Entitic mass] MCH [Entitic mass] by Automated count 27.5-35.2 [facility] MCHC Auto (RBC) [Mass/Vol]Or dered By: Floyd Bolton on 06-08-2024 MCHC (RBC) [Mass/Vol] MCHC [Mass/volume] by Automated count 32.5-35.6 [facility] MCV Auto (RBC) [Entitic vol] Ordered By: Floyd Bolton on 06-08-2024 MCV (RBC) [Entitic vol] MCV [Entitic volume] by Automated count 83.5-101 [facility] Monocytes Auto (Bld) [#/Vol] Ordered By: Floyd Bolton on 06-08-2024 Monocytes (Bld) [#/Vol] Automated blood monocyte count 0.0-0.8 [facility] Monocytes/100 WBC Auto (Bld) Ordered By: Floyd Bolton on 06-08-2024 Monocytes/100 WBC (Bld) Automated monocyte % . [facility] Neutrophils Auto (Bld) [#/Vo l]Ordered By: Floyd Bolton on 06-08-2024 Neutrophils (Bld) [#/Vol] Neutrophils [#/volume] in Blood by Automated count 1.8-7.7 [facility] Neutrophils/100 WBC Auto (Bl d)Ordered By: Floyd Bolton on 06-08-2024 Neutrophils/100 WBC (Bld) Automated neutrophil % . [facility] No Panel InformationOrdered By: Floyd Bolton on 06-08-2024 Estimated GFR (CKD-EPI) 55.879 mL/Min [facility] Creatinine Clearance (Chem N/A [facility] Nucleated erythrocytes [Pres ence] in Blood by Automated countOrdered By: Floyd Bolton on 06-08-2024 Nucleated RBC Auto Ql (Bld) Nucleated erythrocytes [Presence] in Blood by Automated count 0-0.5 [facility] Platelet mean volume Auto (B ld) [Entitic vol]Ordered By: Floyd Bolton on 06-08-2024 Platelet mean volume (Bld) [Entitic vol] Platelet mean volume [Entitic volume] in Blood by Automated count 6.6-10.1 [facility] Platelets Auto (Bld) [#/Vol] Ordered By: Floyd Bolton on 06-08-2024 Platelets (Bld) [#/Vol] Platelets [#/volume] in Blood by Automated count 150-450 [facility] Potassium [Moles/volume] in Serum or PlasmaOrdered By: Floyd Bolton on 06-08-2024 Potassium [Moles/Vol] Potassium [Moles/v olume] in Serum or Plasma 3.5-5.1 [facility] Protein [Mass/volume] in Ser um or PlasmaOrdered By: Floyd Bolton on 06-08-2024 Protein [Mass/Vol] Protein [Mass/volume ] in Serum or Plasma 6.4-8.9 [facility] RBC Auto (Bld) [#/Vol]Ordere d By: Floyd Bolton on 06-08-2024 RBC (Bld) [#/Vol] Erythrocytes [#/volu me] in Blood by Automated count Low 3.90-5.60 [facility] Serum or plasma albumin/glob ulin mass ratioOrdered By: Floyd Bolton on 06-08-2024 Albumin/Globulin [Mass ratio] Serum or plasma albumin/globulin mass ratio [facility] Serum or plasma anion gap de terminationOrdered By: lFoyd Bolton on 06-08-2024 Anion gap [Moles/Vol] Serum or plasma an ion gap determination 6.0-15.0 [facility] Sodium [Moles/volume] in Ser um or PlasmaOrdered By: Floyd Bolton on 06-08-2024 Sodium [Moles/Vol] Sodium [Moles/volume ] in Serum or Plasma 136-145 [facility] Urea nitrogen [Mass/volume] in Serum or PlasmaOrdered By: Floyd Bolton on 06-08-2024 Urea nitrogen [Mass/Vol] Urea nitrogen [Mass/volume] in Serum or Plasma High 7-25 [facility] WBC Auto (Bld) [#/Vol]Ordere d By: Floyd Bolton on 06-08-2024 WBC (Bld) [#/Vol] Leukocytes [#/volume ] in Blood by Automated count 4.1-10.5 [facility] Alanine aminotransferase [En zymatic activity/volume] in Serum or PlasmaOrdered By: Floyd Bolton on 04-12-2024 ALT [Catalytic activity/Vol] Alanine aminotransferase [Enzymatic activity/volume] in Serum or Plasma 7-52 [facility] Albumin [Mass/volume] in Ser um or Plasma by Bromocresol green (BCG) dye binding methoOrdered By: Floyd Bolton on 04-12-2024 Albumin BCG dye [Mass/Vol] Albumin [Mass/volume] in Serum or Plasma by Bromocresol green (BCG) dye binding metho 3.5-5.7 [facility] Alkaline phosphatase [Enzyma tic activity/volume] in Serum or PlasmaOrdered By: Floyd Bolton on 04-12-2024 ALP [Catalytic activity/Vol] Alkaline phosphatase [Enzymatic activity/volume] in Serum or Plasma 34-104 [facility] Aspartate aminotransferase [ Enzymatic activity/volume] in Serum or PlasmaOrdered By: Floyd Bolton on 04-12-2024 AST [Catalytic activity/Vol] Aspartate aminotransferase [Enzymatic activity/volume] in Serum or Plasma 13-39 [facility] Basophils Auto (Bld) [#/Vol] Ordered By: Floyd Bolton on 04-12-2024 Basophils (Bld) [#/Vol] Automated basophil count 0.0-0.2 [facility] Basophils/100 WBC Auto (Bld) Ordered By: Floyd Bolton on 01-15-2025 Basophils/100 WBC (Bld) Automated basophil % . [facility] Bilirubin.total [Mass/volume ] in Serum or PlasmaOrdered By: Floyd Bolton on 04-12-2024 Bilirubin [Mass/Vol] Bilirubin.total [Mass/volume] in Serum or Plasma High 0.3-1.0 [facility] Comment on above: Samples from patient s who have taken Naproxen have shown spurious elevation in Total Bilirubin levels. A metabolite of Naproxen, O-desmethylnaproxen, has been shown to interfere with the Femi-Batsheva method for measuring Total Bilirubin. Calcium [Mass/volume] in Ser um or PlasmaOrdered By: Floyd Bolton on 04-12-2024 Calcium [Mass/Vol] Calcium [Mass/volume ] in Serum or Plasma 8.6-10.3 [facility] Carbon dioxide, total [Moles /volume] in Serum or PlasmaOrdered By: Floyd Bolton on 04-12-2024 CO2 [Moles/Vol] Carbon dioxide, tota l [Moles/volume] in Serum or Plasma 21.0-31.0 [facility] Chloride [Moles/volume] in S paulo or PlasmaOrdered By: Floyd Bolton on 04-12-2024 Chloride [Moles/Vol] Chloride [Moles/vol ume] in Serum or Plasma 98-107 [facility] Complete Blood Count Auto Di ffon 04-12-2024 Basophils (Bld) [#/Vol] 0.0 10*3/uL Normal 0.0-0.2 [facility] Comment on above: Performed By: #### C MP, CBC, ESR #### [address] Basophils/100 WBC (Bld) 0.5 % Normal . [facility] Comment on above: Performed By: #### C MP, CBC, ESR #### [address] Eosinophils (Bld) [#/Vol] 0.1 10*3/uL Normal 0.0-0.45 [facility] Comment on above: Performed By: #### C MP, CBC, ESR #### [address] Eosinophils/100 WBC (Bld) 1.2 % Normal . [facility] Comment on above: Performed By: #### C MP, CBC, ESR #### [address] Erythrocyte distribution width (RBC) [Ratio] 18.1 % High 12.0-14.8 [facility] Comment on above: Performed By: #### C MP, CBC, ESR #### [address] Hematocrit (Bld) [Volume fraction] 32.8 % Low 38.8-50.0 [facility] Comment on above: Performed By: #### C MP, CBC, ESR #### [address] Hemoglobin (Bld) [Mass/Vol] 11.0 g/dL Low 13.0-17.0 [facility] Comment on above: Performed By: #### C MP, CBC, ESR #### [address] Lymphocytes (Bld) [#/Vol] 0.6 10*3/uL Low 1.00-4.8 [facility] Comment on above: Performed By: #### C MP, CBC, ESR #### [address] Lymphocytes/100 WBC (Bld) 8.3 % Normal . [facility] Comment on above: Performed By: #### C MP, CBC, ESR #### [address] MCH (RBC) [Entitic mass] 31.1 pg Normal 27.5-35.2 [facility] Comment on above: Performed By: #### C MP, CBC, ESR #### [address] MCV (RBC) [Entitic vol] 92.8 fL Normal 83.5-101 [facility] Comment on above: Performed By: #### C MP, CBC, ESR #### [address] Mean Corpuscular HGB Conc 33.5 g/dL Normal 32.5-35.6 [facility] Comment on above: Performed By: #### C MP, CBC, ESR #### [address] Monocytes (Bld) [#/Vol] 0.9 10*3/uL High 0.0-0.8 [facility] Comment on above: Performed By: #### C MP, CBC, ESR #### [address] Monocytes/100 WBC (Bld) 11.5 % Normal . [facility] Comment on above: Performed By: #### C MP, CBC, ESR #### [address] Neutrophils (Bld) [#/Vol] 6.0 10*3/uL Normal 1.8-7.7 [facility] Comment on above: Performed By: #### C MP, CBC, ESR #### [address] Neutrophils/100 WBC (Bld) 78.5 % Normal . [facility] Comment on above: Performed By: #### C MP, CBC, ESR #### [address] NRBC% 0.1 /100{WBC} Normal 0-0.5 [facility] Comment on above: Performed By: #### C MP, CBC, ESR #### [place] [address] [place] Platelet mean volume (Bld) [Entitic vol] 9.2 fL Normal 6.6-10.1 [facility] Comment on above: Performed By: #### C MP, CBC, ESR #### [place] [address] [place] Platelets (Bld) [#/Vol] 147 10*3/uL Low 150-450 [facility] Comment on above: Performed By: #### C MP, CBC, ESR #### [address] RBC (Bld) [#/Vol] 3.53 10*6/uL Low 3.90-5.60 [facility] Comment on above: Performed By: #### C MP, CBC, ESR #### [address] WBC (Bld) [#/Vol] 7.7 10*3/uL Normal 4.1-10.5 [facility] Comment on above: Performed By: #### C MP, CBC, ESR #### [address] Comprehensive Metabolic Pane mike 04-12-2024 Albumin [Mass/Vol] 3.7 g/dL Normal 3.5-5.7 [facility] Comment on above: Performed By: #### C MP, CBC, ESR #### [address] Albumin/Globulin [Mass ratio] 1.3 {ratio} Normal [facility] Comment on above: Performed By: #### C MP, CBC, ESR #### [address] ALP [Catalytic activity/Vol] 50 U/L Normal 34-104 [facility] Comment on above: Result Comment: PERF ORMED BY: [place] [address] PATHOLOGIST [employer] RISK AND ASSURANCE SENIOR MANAGER KACI MCCLAIN M.D. Performed By: #### C MP, CBC, ESR #### [address] ALT [Catalytic activity/Vol] 22 U/L Normal 7-52 [facility] Comment on above: Performed By: #### C MP, CBC, ESR #### [address] Anion gap [Moles/Vol] 13.6 mmol/L Normal 6.0-15.0 [facility] Comment on above: Performed By: #### C MP, CBC, ESR #### [facility] [address] [place] [id number] [place] AST [Catalytic activity/Vol] 23 U/L Normal 13-39 [facility] Comment on above: Performed By: #### C MP, CBC, ESR #### [facility] [address] [place] [id number] [place] Bilirubin [Mass/Vol] 1.7 mg/dL High 0.3-1.0 [facility] Comment on above: Result Comment: Samp les from patients who have taken Naproxen have shown spurious elevation in Total Bilirubin levels. A metabolite of Naproxen, O-desmethylnaproxen, has been shown to interfere with the Jendrjocelyneik-Grof method for measuring Total Bilirubin. Performed By: #### C MP, CBC, ESR #### [facility] [address] [place] [address] [place] Calcium [Mass/Vol] 9.1 mg/dL Normal 8.6-10.3 [facility] Comment on above: Performed By: #### C MP, CBC, ESR #### [facility] [address] [place] [address] [place] Chloride [Moles/Vol] 104 mmol/L Normal 98-107 [facility] Comment on above: Performed By: #### C MP, CBC, ESR #### [facility] [address] [place] [address] [place] CO2 [Moles/Vol] 26.6 mmol/L Normal 21.0-31.0 [facility] Comment on above: Performed By: #### C MP, CBC, ESR #### [facility] [address] [place] [id number] [place] Creatinine [Mass/Vol] 1.00 mg/dL Normal 0.70-1.30 [facility] Comment on above: Performed By: #### C MP, CBC, ESR #### [facility] [address] [place] [id number] [place] GFR/1.73 sq M.predicted MDRD (S/P/Bld) [Vol rate/Area] mL/min/{1.73_m2} Normal [facility] Comment on above: Performed By: #### C MP, CBC, ESR #### [address] Globulin (S) [Mass/Vol] 2.8 g/dL Normal [facility] Comment on above: Performed By: #### C MP, CBC, ESR #### [address] Glucose [Mass/Vol] 135 mg/dL High 70-100 [facility] Comment on above: Result Comment: [facility] [place] Glucose Reference Range is dependent on time and content of last meal. Glucose of more than 200 mg/dL in a nonstressed, ambulatory subject supports the diagnosis of Diabetes Mellitus. ADA recommended reference range Performed By: #### C MP, CBC, ESR #### [address] Potassium [Moles/Vol] 3.2 mmol/L Low 3.5-5.1 [facility] Comment on above: Performed By: #### C MP, CBC, ESR #### [address] Protein [Mass/Vol] 6.5 g/dL Normal 6.4-8.9 [facility] [facility] Comment on above: Performed By: #### C MP, CBC, ESR #### [address] Sodium [Moles/Vol] 141 mmol/L Normal 136-145 [facility] Comment on above: Performed By: #### C MP, CBC, ESR #### [address] Urea nitrogen [Mass/Vol] 23 mg/dL Normal 7-25 [facility] Comment on above: Performed By: #### C MP, CBC, ESR #### [place] [address] [place] Creatinine [Mass/volume] in Serum or PlasmaOrdered By: Floyd Bolton on 04-12-2024 Creatinine [Mass/Vol] Creatinine [Mass/v olume] in Serum or Plasma 0.70-1.30 [facility] Eosinophils Auto (Bld) [#/Vo l]Ordered By: Floyd Bolton on 04-12-2024 Eosinophils (Bld) [#/Vol] Automated eosinophil count 0.0-0.45 [facility] Eosinophils/100 WBC Auto (Bl d)Ordered By: Floyd Bolton on 04-12-2024 Eosinophils/100 WBC (Bld) Automated eosinophil % . [facility] Erythrocyte Sedimentation Ra umesh 04-12-2024 ESR (Bld) [Velocity] 13 mm/h Normal 0-19 [facility] Comment on above: Result Comment: PERF ORMED BY: [facility] [address] [place] [address] PATHOLOGIST IT RISK AND ASSURANCE SENIOR MANAGER KACI MCCLAIN M.D. Performed By: #### C MP, CBC, ESR #### [address] Erythrocyte distribution wid th Auto (RBC) [Ratio]Ordered By: Floyd Bolton on 04-12-2024 Erythrocyte distribution width (RBC) [Ratio] Erythrocyte distribution width [Ratio] by Automated count High 12.0-14.8 [facility] Erythrocyte sedimentation ra te by Photometric methodOrdered By: Floyd Bolton on 04-12-2024 ESR Photometric method (Bld) [Velocity] Erythrocyte sedimentation rate by Photometric method 0-19 [facility] Globulin Calc (S) [Mass/Vol] Ordered By: Floyd Bolton on 04-12-2024 Globulin (S) [Mass/Vol] Serum globulin measurement by calculation (mass/volume) [facility] Glucose [Mass/volume] in Ser um or PlasmaOrdered By: Floyd Bolton on 04-12-2024 Glucose [Mass/Vol] Glucose [Mass/volume ] in Serum or Plasma High 70-100 [facility] Comment on above: ADA recommended refe rence rangeRandom Glucose Reference Range is dependent on time and content of last meal. Glucose of more than 200 mg/dL in a nonstressed, ambulatory subject supports the diagnosis of Diabetes Mellitus. Hematocrit Auto (Bld) [Volum e fraction]Ordered By: Floyd Bolton on 04-12-2024 Hematocrit (Bld) [Volume fraction] Hematocrit [Volume Fraction] of Blood by Automated count Low 38.8-50.0 [facility] Hemoglobin [Mass/volume] in BloodOrdered By: Floyd Bolton on 04-12-2024 Hemoglobin (Bld) [Mass/Vol] Hemoglobin [Mass/volume] in Blood Low 13.0-17.0 [facility] Leukocytes [#/volume] correc liborio for nucleated erythrocytes in Blood by Automated counOrdered By: Floyd Bolton on 04-12-2024 WBC corrected for nucl RBC Auto (Bld) [#/Vol] Leukocytes [#/volume] corrected for nucleated erythrocytes in Blood by Automated coun 4.1-10.5 [facility] Lymphocytes Auto (Bld) [#/Vo l]Ordered By: Floyd Bolton on 04-12-2024 Lymphocytes (Bld) [#/Vol] Lymphocytes [#/volume] in Blood by Automated count Low 1.00-4.8 [facility] Lymphocytes/100 WBC Auto (Bl d)Ordered By: Floyd Bolton on 04-12-2024 Lymphocytes/100 WBC (Bld) Lymphocytes/100 leukocytes in Blood by Automated count . [facility] MCH Auto (RBC) [Entitic mass ]Ordered By: Floyd Bolton on 04-12-2024 MCH (RBC) [Entitic mass] MCH [Entitic mass] by Automated count 27.5-35.2 [facility] MCHC Auto (RBC) [Mass/Vol]Or dered By: Floyd Bolton on 04-12-2024 MCHC (RBC) [Mass/Vol] MCHC [Mass/volume] by Automated count 32.5-35.6 [facility] MCV Auto (RBC) [Entitic vol] Ordered By: Floyd Bolton on 04-12-2024 MCV (RBC) [Entitic vol] MCV [Entitic volume] by Automated count 83.5-101 [facility] Monocytes Auto (Bld) [#/Vol] Ordered By: Floyd Bolton on 04-12-2024 Monocytes (Bld) [#/Vol] Automated blood monocyte count High 0.0-0.8 [facility] Monocytes/100 WBC Auto (Bld) Ordered By: Floyd Bolton on 04-12-2024 Monocytes/100 WBC (Bld) Automated monocyte % . [facility] Neutrophils Auto (Bld) [#/Vo l]Ordered By: Floyd Bolton on 04-12-2024 Neutrophils (Bld) [#/Vol] Neutrophils [#/volume] in Blood by Automated count 1.8-7.7 [facility] Neutrophils/100 WBC Auto (Bl d)Ordered By: Floyd Bolton on 04-12-2024 Neutrophils/100 WBC (Bld) Automated neutrophil % . [facility] No Panel InformationOrdered By: Floyd Bolton on 04-12-2024 Estimated GFR (CKD-EPI) > 60.0 mL/Min [facility] Creatinine Clearance (Chem N/A [facility] Nucleated erythrocytes [Pres ence] in Blood by Automated countOrdered By: Floyd Bolton on 04-12-2024 Nucleated RBC Auto Ql (Bld) Nucleated erythrocytes [Presence] in Blood by Automated count 0-0.5 [facility] Platelet mean volume Auto (B ld) [Entitic vol]Ordered By: Floyd Bolton on 04-12-2024 Platelet mean volume (Bld) [Entitic vol] Platelet mean volume [Entitic volume] in Blood by Automated count 6.6-10.1 [facility] Platelets Auto (Bld) [#/Vol] Ordered By: Floyd Bolton on 04-12-2024 Platelets (Bld) [#/Vol] Platelets [#/volume] in Blood by Automated count Low 150-450 [facility] Potassium [Moles/volume] in Serum or PlasmaOrdered By: Floyd Bolton on 04-12-2024 Potassium [Moles/Vol] Potassium [Moles/v olume] in Serum or Plasma Low 3.5-5.1 [facility] Protein [Mass/volume] in Ser um or PlasmaOrdered By: Floyd Bolton on 04-12-2024 Protein [Mass/Vol] Protein [Mass/volume ] in Serum or Plasma 6.4-8.9 [facility] RBC Auto (Bld) [#/Vol]Ordere d By: Floyd Bolton on 04-12-2024 RBC (Bld) [#/Vol] Erythrocytes [#/volu me] in Blood by Automated count Low 3.90-5.60 [facility] Serum or plasma albumin/glob ulin mass ratioOrdered By: Floyd Bolton on 04-12-2024 Albumin/Globulin [Mass ratio] Serum or plasma albumin/globulin mass ratio [facility] Serum or plasma anion gap de terminationOrdered By: Floyd Bolton on 04-12-2024 Anion gap [Moles/Vol] Serum or plasma an ion gap determination 6.0-15.0 [facility] Sodium [Moles/volume] in Ser um or PlasmaOrdered By: Floyd Bolton on 04-12-2024 Sodium [Moles/Vol] Sodium [Moles/volume ] in Serum or Plasma 136-145 [facility] Urea nitrogen [Mass/volume] in Serum or PlasmaOrdered By: Floyd Botlon on 04-12-2024 Urea nitrogen [Mass/Vol] Urea nitrogen [Mass/volume] in Serum or Plasma 7-25 [facility] WBC Auto (Bld) [#/Vol]Ordere d By: Floyd Bolton on 04-12-2024 WBC (Bld) [#/Vol] Leukocytes [#/volume ] in Blood by Automated count 4.1-10.5 [facility] TRANSTHORACIC ECHO (TTE) COM PLETEon 01-12-2024 TRANSTHORACIC ECHO (TTE) COMPLETE [address], [address] [place] [address] TRANSTHORACIC ECHOCARDIOGRAM REPORT Patient Name: SHAHID Haywood Physician: [id number] Pinedo MD Study Date: 01/12/2024 Ordering Provider: [id number] MOLINA MRN/PID: [id number] Fellow: Nurse: Date of /Age: 7 1940 / 83 years Regional Clinical Research Associate: Wen Ron RDCS, MACKENZIE, RVT Gender: M Additional Staff: Height: 180.34 cm Admit Date: Weight: 90.27 kg Admission Status: Outpatient BSA / BMI: 2.10 m2 / 27.76 Department Location: [facility] kg/[address] Blood Pressure: 134 /62 mmHg Study Type: TRANSTHORACIC ECHO (TTE) COMPLETE Diagnosis/ICD: 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 Evolut FX #34, HX , AFib, CAD, CHF, HTN, DM, Pacemaker, Dilated CM, CPT Codes: Echo Complete w Full Doppler-63313 Study Detail: The following Echo studies were [...] AoV Mean P.0 mmHg (1.7-11.5mmHg) LVOT Max Charlotte: 0.75 m/s (<=1.1m/s) AoV VTI: 46.00 cm (18-25cm) LVOT VTI: 16.50 cm LVOT Diameter: 2.00 cm (1.8-2.4cm) AoV Area, VTI: 1.13 cm2 (2.5-5.5cm2) AoV Area,Vmax: 1.13 cm2 (2.5-4.5cm2) AoV Dimensionless Index: 0.36 TRICUSPID VALVE/RVSP: Normal Ranges: Peak TR Velocity: 3.03 m/s RV Syst Pressure: 40 mmHg (< 30mmHg) PULMONIC VALVE: Normal Ranges: PV Max Charlotte: 0.7 m/s (0.6-0.9m/s) PV Max P.2 mmHg [id number] Joby Pinedo MD Electronically signed on 01/17/2024 at 3:44:31 PM Final Normal [facility] CBC panel Auto (Bld)on 11-12 Erythrocyte distribution width (RBC) [Ratio] 16.8 % High 11.5 - 14.5 % [facility] Hematocrit (Bld) [Volume fraction] 27.9 % Low 41.0 - 52.0 % [facility] Hemoglobin (Bld) [Mass/Vol] 9.2 g/dL Low 13.5 - 17.5 g/dL [facility] Interpretation and review of laboratory results Abnormal [facility] MCH (RBC) [Entitic mass] 31.4 pg 26.0 - 34.0 pg [facility] MCHC (RBC) [Mass/Vol] 33.0 g/dL 32.0 - 36.0 g/dL [facility] MCV (RBC) [Entitic vol] 95 fL 80 - 100 fL [facility] Nucleated RBC/100 WBC (Bld) [Ratio] 0.0 % [facility] Platelets (Bld) [#/Vol] 221 10*3/uL [facility] RBC (Bld) [#/Vol] 2.93 10*6/uL Low [facility] WBC (Bld) [#/Vol] 8.9 10*3/uL [facility] Erythrocyte distribution width (RBC) [Ratio] 16.8 % High 11.5-14.5 [facility] Comment on above: Performed By: #### 5 8410-2 #### CHRIST Jung ([id number]) [facility] ([facility]) [address] [place] [address] Hematocrit (Bld) [Volume fraction] 27.9 % Low 41.0-52.0 [facility] Comment on above: Performed By: #### 5 8410-2 #### CHRIST Jung ([id number]) [facility] ([facility]) [address] [place] [address] Hemoglobin (Bld) [Mass/Vol] 9.2 g/dL Low 13.5-17.5 [facility] Comment on above: Performed By: #### 5 8410-2 #### CHRIST Jung ([id number]) [facility] ([facility]) [address] [place] [address] MCH (RBC) [Entitic mass] 31.4 pg Normal 26.0-34.0 [facility] Comment on above: Performed By: #### 5 8410-2 #### CHRIST Jung ([id number]) [facility] ([facility]) [address] [place] [address] MCHC (RBC) [Mass/Vol] 33.0 g/dL Normal 32.0-36.0 [facility] Comment on above: Performed By: #### 5 8410-2 #### CHRIST Jung ([id number]) [facility] ([facility]) [address] [place] [address] MCV (RBC) [Entitic vol] 95 fL Normal 80-100 [facility] Comment on above: Performed By: #### 5 8410-2 #### CHRIST Jung ([id number]) [facility] ([facility]) [address] [place] [address] Nucleated RBC/100 WBC (Bld) [Ratio] 0.0 /100 WBCs Normal 0.0-0.0 [facility] Comment on above: Performed By: #### 5 8410-2 #### CHRIST Jung ([id number]) [facility] ([facility]) [address] [place] [address] Platelets (Bld) [#/Vol] 221 x10*3/uL Normal 150-450 [facility] Comment on above: Performed By: #### 5 8410-2 #### CHRIST Jung ([id number]) [facility] ([facility]) [address] [place] [address] RBC (Bld) [#/Vol] 2.93 x10*6/uL Low 4.50-5.90 [facility] Comment on above: Performed By: #### 5 8410-2 #### CHRIST Jung ([id number]) [facility] ([facility]) [address] [place] [address] WBC (Bld) [#/Vol] 8.9 x10*3/uL Normal 4.4-11.3 [facility] Comment on above: Performed By: #### 5 8410-2 #### CHRIST Jung ([id number]) [facility] ([facility]) [address] [place] [address] Comprehensive metabolic 2000 panelon 11-13-2023 Albumin BCP dye [Mass/Vol] 3.4 g/dL 3.4 - 5.0 g/dL [facility] ALP [Catalytic activity/Vol] 60 U/L 33 - 136 U/L [facility] ALT With P-5'-P [Catalytic activity/Vol] 13 U/L 10 - 52 U/L [facility] Anion gap [Moles/Vol] 17 mmol/L 10 - 2 0 mmol/L [facility] AST With P-5'-P [Catalytic activity/Vol] 20 U/L 9 - 39 U/L [facility] Bilirubin [Mass/Vol] 0.8 mg/dL 0.0 - 1 .2 mg/dL [facility] Calcium [Mass/Vol] 8.9 mg/dL 8.6 - 10. 6 mg/dL [facility] Chloride [Moles/Vol] 101 mmol/L 98 - 10 7 mmol/L [facility] CO2 [Moles/Vol] 23 mmol/L 21 - 32 mmol/L [facility] Creatinine [Mass/Vol] 1.51 mg/dL High 0.50 - 1.30 mg/dL [facility] GFR/1.73 sq M.predicted among non-blacks MDRD (S/P/Bld) [Vol rate/Area] 46 mL/min/{1.73_m2} Low - PINF [facility] Glucose [Mass/Vol] 250 mg/dL High 74 - 99 mg/dL [facility] Interpretation and review of laboratory results Abnormal [facility] Potassium [Moles/Vol] 3.9 mmol/L 3.5 - 5.3 mmol/L [facility] Protein [Mass/Vol] 6.5 g/dL 6.4 - 8.2 g/dL [facility] Sodium [Moles/Vol] 137 mmol/L 136 - 145 mmol/L [facility] Urea nitrogen [Mass/Vol] 29 mg/dL High 6 - 23 mg/dL [facility] Albumin BCP dye [Mass/Vol] 3.4 g/dL Normal 3.4-5.0 [facility] Comment on above: Performed By: #### 2 4323-8 #### CHRIST Jung ([id number]) [facility] ([facility]) [address] [place] [address] ALP [Catalytic activity/Vol] 60 U/L Normal 33-136 [facility] Comment on above: Performed By: #### 2 4323-8 #### CHRIST Jung ([id number]) [facility] ([facility]) [address] [place] [address] ALT With P-5'-P [Catalytic activity/Vol] 13 U/L Normal 10-52 [facility] Comment on above: Result Comment: Yenni ents treated with Sulfasalazine may generate falsely decreased results for ALT. Performed By: #### 2 4323-8 #### CHRIST Jung ([id number]) [facility] ([facility]) [address] [place] [address] Anion gap [Moles/Vol] 17 mmol/L Normal 10-20 [facility] Comment on above: Performed By: #### 2 4323-8 #### CHRIST Jung ([id number]) [facility] ([facility]) [address] [place] [address] AST With P-5'-P [Catalytic activity/Vol] 20 U/L Normal 9-39 [facility] Comment on above: Performed By: #### 2 4323-8 #### CHRIST CHIRINOS L ([id number]) [facility] ([facility]) [address] [place] [address] Bilirubin [Mass/Vol] 0.8 mg/dL Normal 0.0-1.2 [facility] Comment on above: Performed By: #### 2 4323-8 #### CHRIST MARCELINOER L ([id number]) [facility] ([facility]) [address] [place] [address] Calcium [Mass/Vol] 8.9 mg/dL Normal 8.6-10.6 [facility] Comment on above: Performed By: #### 2 4323-8 #### CHRIST CHIRINOS L ([id number]) [facility] ([facility]) [address] [place] [address] Chloride [Moles/Vol] 101 mmol/L Normal 98-107 [facility] Comment on above: Performed By: #### 2 4323-8 #### CHRIST CHIUMOTZER L ([id number]) [facility] ([facility]) [address] [place] [address] CO2 [Moles/Vol] 23 mmol/L Normal 21-32 [facility] Comment on above: Performed By: #### 2 4323-8 #### CHRIST CHIUMOTZER L ([id number]) [facility] ([facility]) [address] [place] [address] Creatinine [Mass/Vol] 1.51 mg/dL High 0.50-1.30 [facility] Comment on above: Performed By: #### 2 4323-8 #### CHRIST CHIUMOTZER L ([id number]) [facility] ([facility]) [address] [place] [address] Glomerular filtration rate/1.73 sq M.predicted 46 mL/min/1.73m*2 Low >60 [facility] Comment on above: Result Comment: Calc ulations of estimated GFR are performed using the 2020 CKD-EPI Study Refit equation without the race variable for the IDMS-Traceable creatinine methods. https://jasn.asnjournals.org/content//ASN.29696 57816 Performed By: #### 2 4323-8 #### CHRIST Jung ([id number]) [facility] ([facility]) [address] [place] [address] Glucose [Mass/Vol] 250 mg/dL High 74-99 [facility] Comment on above: Performed By: #### 2 4323-8 #### CHRIST Jung ([id number]) [facility] ([facility]) [address] [place] [address] Potassium [Moles/Vol] 3.9 mmol/L Normal 3.5-5.3 [facility] Comment on above: Performed By: #### 2 4323-8 #### CHRIST Jung ([id number]) [facility] ([facility]) [address] [place] [address] Protein [Mass/Vol] 6.5 g/dL Normal 6.4-8.2 [facility] Comment on above: Performed By: #### 2 4323-8 #### CHRIST Jung ([id number]) [facility] ([facility]) [address] [place] [address] Sodium [Moles/Vol] 137 mmol/L Normal 136-145 [facility] Comment on above: Performed By: #### 2 4323-8 #### CHRIST Jung ([id number]) [facility] ([facility]) [address] [place] [address]25 Urea nitrogen [Mass/Vol] 29 mg/dL High 6-23 [facility] Comment on above: Performed By: #### 2 4323-8 #### CHRIST Jung ([id number]) [facility] ([facility]) [address] [place] [address]2783 Glucose Test strip manual (B ld) [Mass/Vol]on 11-13-2023 Glucose [Mass/Vol] 145 mg/dL High 74 - 99 mg/dL [facility] Interpretation and review of laboratory results Abnormal [facility] Glucose [Mass/Vol] 145 mg/dL High 74-99 [facility] Comment on above: Performed By: #### 2 341-6 #### CHRIST Jung ([id number]) [facility] ([facility]) [address] [place] [address] Glucose [Mass/Vol] 135 mg/dL High 74 - 99 mg/dL [facility] Interpretation and review of laboratory results Abnormal [facility] Glucose [Mass/Vol] 135 mg/dL High 74-99 [facility] Comment on above: Performed By: #### 2 341-6 #### CHRIST Jung ([id number]) [facility] ([facility]) [address] [place] [address]75 Heparin Assay, UFHon 024 Heparin unfractionated Chromogenic method Qn (PPP) 0.2 See Comment Below for Therapeutic Ranges IU/mL [facility] Heparin unfractionated Chromogenic method Qn (PPP) 0.1 See Comment Below for Therapeutic Ranges IU/mL [facility] Heparin unfractionated Chrom ogenic method Qn (PPP)on 11-13-2023 Interpretation and review of laboratory results Normal [facility] Interpretation and review of laboratory results Normal [facility] Heparin.unfractionatedon Heparin unfractionated Chromogenic method Qn (PPP) 0.2 IU/mL Normal See Comment Below for Therapeutic Ranges [facility] Comment on above: Order Comment: Obtai n 4 hours after any Heparin dosage change. Nursing to release order. The therapeutic reference range for UFH may be either 0.3-0.6 IU/mL or 0.3-0.7 IU/mL based on the clinical setting for 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 therapy and the associated nomogram used. For Heparin dosing guidelines based on clinical scenario and Heparin Assay results, please refer to local Pharmacy and the [facility] Guidelines for Anticoagulation Therapy available on the [facility] intranet at: [email or web address]/Pages/Denbo_ ospitals_Guidelines_for_[email or web address].aspx Performed By: #### 3 274-8 #### CHRIST Jung ([id number]) [facility] ([facility]) [address] [place] [address] Magnesiumon 11-13-2023 Magnesium [Mass/Vol] 2.12 mg/dL 1.60 - 2.40 mg/dL [facility] Magnesium [Mass/Vol] 2.12 mg/dL Normal 1.60-2.40 [facility] Comment on above: Performed By: #### 1 9123-9 #### CHRIST Jung ([id number]) [facility] ([facility]) [address] [place] [address] Magnesium [Mass/Vol]on 11-12 Interpretation and review of laboratory results Normal [facility] No Panel Informationon 11-12 [facility] TRANSTHORACIC ECHO (TTE) BEE ITEDon 11-13-2023 TRANSTHORACIC ECHO (TTE) [facility], [address] [place] [address] and TRANSTHORACIC ECHOCARDIOGRAM REPORT Patient Name: SHAHID Haywood Physician: [id number] Eddie Syed MD Study Date: 11/13/2023 Ordering Provider: [id number] CARON LEÓN MRN/PID: [id number] Fellow: Nurse: Jill Painter RN Date of /Age: 7 1940 / 83 years Regional Clinical Research Associate: Lulú Allen RDCS Gender: M Additional Staff: Height: 180.34 cm Admit Date: 11/11/2023 Weight: 90.26 kg Admission Status: Inpatient - Priority discharge BSA / BMI: 2.10 m2 / 27.75 kg/m2 Blood Pressure: 139/51 mmHg Department Location: [facility] Non Invasive Study Type: TRANSTHORACIC ECHO (TTE) LIMITED Diagnosis/ICD: Nonrheumatic aortic (valve) stenosis-I35.0 Indication: S/P TAVR CPT Code: Echo Limited-38097; Doppler Limited-53220; Color Doppler-66345 Patient History: Diabetes: Yes Pertinent History: A-Fib, CHF, HTN, CAD, Cardiomyopathy and Dyspnea. Aortic stenosis,s/p TAVR 34 Evolut FX (11/22/23),PHTN,CKD,GUNNER,Co mike [place],Appendage thrombus (OSH),. Study Detail: The following Echo studies were performed: 2D, M-Mode, Doppler and color flow. Technically challenging study due to body habitus and patient lying in supine position. Definity used as a contrast agent for endocardial border definition. Total contrast used for this procedure was 2 mL via IV push. Patient has a pacemaker. PHYSICIAN INTERPRETATION: Left Ventricle: Left ventricular ejection fraction is low normal, by visual estimate at 50-55%. The patient is in atrial fibrillation which may influence the estimate of left ventricular function and transvalvular flows. There are no regional left ventricular wall motion abnormalities. The left ventricular cavity size is normal. Abnormal (paradoxical) septal motion, consistent with RV pacemaker. Left ventricular diastolic filling was not assessed. Left Atrium: The left atrium is severely dilated. Right Ventricle: The right ventricle is mildly enlarged. There is mildly reduced right ventricular systolic function. A device is visualized in the right ventricle. Right Atrium: The right atrium is mild to moderately dilated. There is a device visualized in the right atrium. Aortic Valve: There is a prosthetic aortic valve present. The aortic valve dimensionless index is 0.58. There is a Medtronic transcatheter aortic valve replacement, with a 34 reported size. There is no evidence of aortic valve regurgitation. The peak instantaneous gradient of the aortic valve is 15.5 mmHg. The mean gradient of the aortic valve is 8.1 mmHg. Normal gradients and DI for a TAVR. Mitral Valve: The mitral valve is normal in structure. There is mild to moderate mitral annular calcification. There is trace mitral valve regurgitation. Tricuspid Valve: The tricuspid valve is structurally normal. Tricuspid regurgitation was not assessed. Pulmonic Valve: The pulmonic valve is structurally normal. There is trace pulmonic valve regurgitation. Pericardium: There is a trivial pericardial effusion. Aorta: The aortic root is normal. In comparison to the previous echocardiogram(s): Compared with study dated 11/12/2023, no significant change . Stable gradients across TAVR. CONCLUSIONS: 1. Left ventricular ejection fraction is low normal, by visual estimate at 50-55%. 2. Abnormal septal motion consistent with RV pacemaker. 3. There is mildly reduced right ventricular systolic function. 4. Mildly enlarged right ventricle. 5. The left atrium is severely dilated. 6. The right atrium is mild to moderately dilated. 7. There is a transcatheter aortic valve replacement. 8. Normal gradients and DI for a TAVR. 9. The patient is in atrial fibrillation which may influence the estimate of left ventricular function and transvalvular flows. 10. Compared with study dated 11/12/2023, no significant change . Stable gradients across TAVR. RECOMMENDATIONS: Utilizing an FDA cleared automated machine learning algorithm (RoombeatsGo Heart Failure by [employer]), the analysis of the apical 4-chamber echocardiogram suggests the presence of heart failure with preserved ejection fraction (HFpEF). Clinical correlation looking for additional heart failure signs and symptoms is recommended, as a definite diagnosis of heart failure cannot be made by imaging alone. Per the ACC/AHA/HFSA universal diagnosis of heart failure, HFpEF is defined as 1) signs and symptoms leading to clinical diagnosis of heart failure, 2) an ejection fraction of at least 50%, and 3) evidence of elevated intra-cardiac filling pressures by echocardiography, BNP elevation, or catheterization. QUANTITATIVE DATA SUMMARY: 2D MEASUREMENTS: Normal Ranges: LAs: 4.27 cm (2.7-4.0cm) IVSd: 1.02 cm (0.6-1.1cm) LVPWd: 1.23 cm (0.6-1.1cm) LVIDd: 4.79 cm (3.9-5.9cm) LVIDs: 3.49 cm LV Mass Index: 95 g/m2 LVEDV Index: 67 ml/m2 LV % FS 27.0 % LA VOLUME: Normal R (more content not included)... Normal [facility] US Heart Transthoracicon Aortic Valve Area by Continuity of Peak Velocity 1.97 cm2 [facility] Work Phone: Aortic Valve Area by Continuity of VTI 1.79 cm2 [facility] Work Phone: AV mn grad 8.1 mmHg [facility] Work Phone: AV pk grad 15.5 mmHg [facility] Work Phone: AV pk [place] 1.97 m/s [facility] Work Phone: LV A4C EF 56.8 [facility] Work Phone: LV EF 53 % [facility] Work Phone: LVIDd 4.79 cm [facility] Work Phone: LVOT diam 1.99 cm [facility] Work Phone: RV free wall pk S' 8.00 cm/s [facility] Work Phone: Tricuspid annular plane systolic excursion 1.3 cm [facility] Work Phone: SYNGO [facility] Work Phone: [facility] Work Phone: XR CHEST 1 VIEWon 11-13-2023 XR CHEST 1 VIEW Interpreted By: Jarvis Isaac, STUDY: XR CHEST 1 VIEW; 11/13/2023 10:40 am INDICATION: Signs/Symptoms:SOB. COMPARISON: Exam dated 11/01/2023 ACCESSION NUMBER(S): [id number] ORDERING CLINICIAN: CARON LEÓN FINDINGS: AP radiograph of the chest was provided. Left chest wall pacing device and lead tip are in similar position. Status post TAVR. CARDIOMEDIASTINAL SILHOUETTE: Cardiomediastinal silhouette is stable in size and configuration. Calcifications in the aortic arch. LUNGS: Improved perihilar and interstitial opacities. Persistent interstitial opacities in the mid to lower lungs. Trace blunting of the costophrenic angles. No pneumothorax. ABDOMEN: No remarkable upper abdominal findings. BONES: No acute osseous changes. IMPRESSION: 1. Findings of pulmonary edema, improved from prior exam. 2. Stable trace bilateral pleural effusions. 3. Medical devices as above. MACRO: None Signed by: Jarvis Vallecillo 11/13/2023 3:08 PM Dictation workstation: [id number] Normal [facility] CBC panel Auto (Bld)on 11-11 Erythrocyte distribution width (RBC) [Ratio] 16.7 % High 11.5 - 14.5 % [facility] Hematocrit (Bld) [Volume fraction] 27.2 % Low 41.0 - 52.0 % [facility] Hemoglobin (Bld) [Mass/Vol] 9.0 g/dL Low 13.5 - 17.5 g/dL [facility] Interpretation and review of laboratory results Abnormal [facility] MCH (RBC) [Entitic mass] 31.7 pg 26.0 - 34.0 pg [facility] MCHC (RBC) [Mass/Vol] 33.1 g/dL 32.0 - 36.0 g/dL [facility] MCV (RBC) [Entitic vol] 96 fL 80 - 100 fL [facility] Nucleated RBC/100 WBC (Bld) [Ratio] 0.0 % [facility] Platelets (Bld) [#/Vol] 238 10*3/uL [facility] RBC (Bld) [#/Vol] 2.84 10*6/uL [facility] WBC (Bld) [#/Vol] 6.4 10*3/uL [facility] ECG 12-LEADon 11-12-2023 ECG 12-LEAD Ventricular Rate 68 Atrial Rate 72 P-R Interval 328 QRS Duration 182 Q-T Interval 480 QTC Calculation(Bazett) 510 R [place] -65 T [place] 109 QRS Count 11 Q Onset 203 T Offset 443 QTC [place] 500 Diagnosis Ventricular-paced rhythm with frequent PVCs Left axis deviation Left ventricular hypertrophy with QRS widening and repolarization abnormality Inferior infarct , age undetermined Cannot rule out Anterior infarct , age undetermined Abnormal ECG When compared with ECG of 12-NOV-2023 08:54, Current undetermined rhythm precludes rhythm comparison, needs review Reconfirmed by Chun Silva ([id number]) on 11/15/2023 7:48:54 AM Normal [facility] ECG 12-LEAD Ventricular Rate 71 Atrial Rate 277 QRS Duration 164 Q-T Interval 442 QTC Calculation(Bazett) 480 R [place] -61 T [place] 116 QRS Count 11 Q Onset 209 T Offset 430 QTC [place] 467 Diagnosis Wide QRS rhythm with frequent ventricular-paced complexes and with occasional Premature ventricular complexes Left axis deviation Left ventricular hypertrophy with QRS widening and repolarization abnormality Inferior infarct , age undetermined Anterolateral infarct , age undetermined Abnormal ECG When compared with ECG of 01-NOV-2023 17:45, Previous ECG has undetermined rhythm, needs review Confirmed by Chun Silva ([id number]) on 11/15/2023 7:47:10 AM Normal [facility] Glucose Test strip manual (B ld) [Mass/Vol]on 11-12-2023 Glucose [Mass/Vol] 186 mg/dL High 74 - 99 mg/dL [facility] Interpretation and review of laboratory results Abnormal [facility] Glucose [Mass/Vol] 122 mg/dL High 74 - 99 mg/dL [facility] Interpretation and review of laboratory results Abnormal [facility] Glucose [Mass/Vol] 111 mg/dL High 74 - 99 mg/dL [facility] Interpretation and review of laboratory results Abnormal [facility] Magnesiumon 11-12-2023 Magnesium [Mass/Vol] 1.96 mg/dL 1.60 - 2.40 mg/dL [facility] Magnesium [Mass/Vol]on 11-11 Interpretation and review of laboratory results Normal [facility] No Panel Informationon 11-11 [facility] Renal function 2000 panelon 11-12-2023 Albumin BCP dye [Mass/Vol] 2.9 g/dL Low 3.4 - 5.0 g/dL [facility] Anion gap [Moles/Vol] 14 mmol/L 10 - 2 0 mmol/L [facility] Calcium [Mass/Vol] 7.8 mg/dL Low 8.6 - 10. 6 mg/dL [facility] Chloride [Moles/Vol] 102 mmol/L 98 - 10 7 mmol/L [facility] CO2 [Moles/Vol] 25 mmol/L 21 - 32 mmol/L [facility] Creatinine [Mass/Vol] 1.37 mg/dL High 0.50 - 1.30 mg/dL [facility] GFR/1.73 sq M.predicted among non-blacks MDRD (S/P/Bld) [Vol rate/Area] 52 mL/min/{1.73_m2} Low - PINF [facility] Glucose [Mass/Vol] 116 mg/dL High 74 - 99 mg/dL [facility] Interpretation and review of laboratory results Abnormal [facility] Phosphate [Mass/Vol] 3.5 mg/dL 2.5 - 4 .9 mg/dL [facility] Potassium [Moles/Vol] 3.4 mmol/L Low 3.5 - 5.3 mmol/L [facility] Sodium [Moles/Vol] 138 mmol/L 136 - 145 mmol/L [facility] Urea nitrogen [Mass/Vol] 29 mg/dL High 6 - 23 mg/dL [facility] Heart TransthoracicOrdere d By: Eddie Syed on 11-12-2023 Aortic Valve Area by Continuity of Peak Velocity 0.92 cm2 [facility] Work Phone: [phone] Aortic Valve Area by Continuity of VTI 0.96 cm2 [facility] Work Phone: [phone] AV mn grad 19.0 mmHg [facility] Work Phone: [phone] AV pk grad 34.8 mmHg [facility] Work Phone: [phone] AV pk [place] 2.95 m/s [facility] Work Phone: [phone] LV A4C EF 48.2 [facility] Work Phone: [phone] LV EF 53 % [facility] Work Phone: [phone] LVIDd 4.60 cm [facility] Work Phone: [phone] LVOT diam 2.40 cm [facility] Work Phone: [phone] [facility] Work Phone: [phone] US Heart Transthoracicon SYNGO [facility] Work Phone: Von Willebrand multimericon 11-12-2023 vWf multimers IB Nom (PPP) Comment [facility] vWf multimers IB Nom (PPP)on 11-12-2023 [facility] Blood type and Indirect anti body screen panel (Bld)on 11-11-2023 ABO group [facility] (Bld) [facility] screen Ql Negative [facility] D Ag Ql (Bld) Negative [facility] CBC panel Auto (Bld)on 11-10 Erythrocyte distribution width (RBC) [Ratio] 16.4 % High 11.5 - 14.5 % [facility] Hematocrit (Bld) [Volume fraction] 30.9 % Low 41.0 - 52.0 % [facility] Hemoglobin (Bld) [Mass/Vol] 10.1 g/dL Low 13.5 - 17.5 g/dL [facility] Interpretation and review of laboratory results Abnormal [facility] MCH (RBC) [Entitic mass] 31.1 pg 26.0 - 34.0 pg [facility] MCHC (RBC) [Mass/Vol] 32.7 g/dL 32.0 - 36.0 g/dL [facility] MCV (RBC) [Entitic vol] 95 fL 80 - 100 fL [facility] Nucleated RBC/100 WBC (Bld) [Ratio] 0.0 % [facility] Platelets (Bld) [#/Vol] 270 10*3/uL [facility] RBC (Bld) [#/Vol] 3.25 10*6/uL [facility] WBC (Bld) [#/Vol] 7.0 10*3/uL [facility] Glucose Test strip manual (B ld) [Mass/Vol]on 11-11-2023 Glucose [Mass/Vol] 106 mg/dL High 74 - 99 mg/dL [facility] Interpretation and review of laboratory results Abnormal [facility] Glucose [Mass/Vol] 238 mg/dL High 74 - 99 mg/dL [facility] Interpretation and review of laboratory results Abnormal [facility] Glucose [Mass/Vol] 106 mg/dL High 74 - 99 mg/dL [facility] Interpretation and review of laboratory results Abnormal [facility] Heparin Assay, UFHon 024 Heparin unfractionated Chromogenic method Qn (PPP) 0.6 See Comment Below for Therapeutic Ranges IU/mL [facility] Heparin unfractionated Chrom ogenic method Qn (PPP)on 11-11-2023 Interpretation and review of laboratory results Normal [facility] Magnesiumon 11-11-2023 Magnesium [Mass/Vol] 2.21 mg/dL 1.60 - 2.40 mg/dL [facility] Magnesium [Mass/Vol]on 11-10 Interpretation and review of laboratory results Normal [facility] No Panel Informationon 11-10 [facility] Renal function 2000 panelon 11-11-2023 Albumin BCP dye [Mass/Vol] 3.7 g/dL 3.4 - 5.0 g/dL [facility] Anion gap [Moles/Vol] 16 mmol/L 10 - 2 0 mmol/L [facility] Calcium [Mass/Vol] 9.2 mg/dL 8.6 - 10. 6 mg/dL [facility] Chloride [Moles/Vol] 94 mmol/L Low 98 - 10 7 mmol/L [facility] CO2 [Moles/Vol] 31 mmol/L 21 - 32 mmol/L [facility] Creatinine [Mass/Vol] 1.66 mg/dL High 0.50 - 1.30 mg/dL [facility] GFR/1.73 sq M.predicted among non-blacks MDRD (S/P/Bld) [Vol rate/Area] 41 mL/min/{1.73_m2} Low - PINF [facility] Glucose [Mass/Vol] 166 mg/dL High 74 - 99 mg/dL [facility] Interpretation and review of laboratory results Abnormal [facility] Phosphate [Mass/Vol] 3.7 mg/dL 2.5 - 4 .9 mg/dL [facility] Potassium [Moles/Vol] 3.7 mmol/L 3.5 - 5.3 mmol/L [facility] Sodium [Moles/Vol] 137 mmol/L 136 - 145 mmol/L [facility] Urea nitrogen [Mass/Vol] 34 mg/dL High 6 - 23 mg/dL [facility] VWF GP1bM Activityon 024 Interpretation and review of laboratory results Abnormal [facility] VWF GP1bM Activity 218 High [facility] CBC panel Auto (Bld)on 11-09 Erythrocyte distribution width (RBC) [Ratio] 16.4 % High 11.5 - 14.5 % [facility] Hematocrit (Bld) [Volume fraction] 30.9 % Low 41.0 - 52.0 % [facility] Hemoglobin (Bld) [Mass/Vol] 10.2 g/dL Low 13.5 - 17.5 g/dL [facility] Interpretation and review of laboratory results Abnormal [facility] MCH (RBC) [Entitic mass] 31.6 pg 26.0 - 34.0 pg [facility] MCHC (RBC) [Mass/Vol] 33.0 g/dL 32.0 - 36.0 g/dL [facility] MCV (RBC) [Entitic vol] 96 fL 80 - 100 fL [facility] Nucleated RBC/100 WBC (Bld) [Ratio] 0.0 % [facility] Platelets (Bld) [#/Vol] 296 10*3/uL [facility] RBC (Bld) [#/Vol] 3.23 10*6/uL [facility] WBC (Bld) [#/Vol] 6.7 10*3/uL [facility] Erythrocyte distribution width (RBC) [Ratio] 16.2 % High 11.5 - 14.5 % [facility] Hematocrit (Bld) [Volume fraction] 31.0 % Low 41.0 - 52.0 % [facility] Hemoglobin (Bld) [Mass/Vol] 10.1 g/dL Low 13.5 - 17.5 g/dL [facility] Interpretation and review of laboratory results Abnormal [facility] MCH (RBC) [Entitic mass] 31.2 pg 26.0 - 34.0 pg [facility] MCHC (RBC) [Mass/Vol] 32.6 g/dL 32.0 - 36.0 g/dL [facility] MCV (RBC) [Entitic vol] 96 fL 80 - 100 fL [facility] Nucleated RBC/100 WBC (Bld) [Ratio] 0.0 % [facility] Platelets (Bld) [#/Vol] 252 10*3/uL [facility] RBC (Bld) [#/Vol] 3.24 10*6/uL [facility] WBC (Bld) [#/Vol] 7.1 10*3/uL [facility] Glucose Test strip manual (B ld) [Mass/Vol]on 11-10-2023 Glucose [Mass/Vol] 233 mg/dL High 74 - 99 mg/dL [facility] Interpretation and review of laboratory results Abnormal [facility] Glucose [Mass/Vol] 197 mg/dL High 74 - 99 mg/dL [facility] Interpretation and review of laboratory results Abnormal [facility] Glucose [Mass/Vol] 176 mg/dL High 74 - 99 mg/dL [facility] Interpretation and review of laboratory results Abnormal [facility] Glucose [Mass/Vol] 113 mg/dL High 74 - 99 mg/dL [facility] Interpretation and review of laboratory results Abnormal [facility] Heparin Assay, UFHon 024 Heparin unfractionated Chromogenic method Qn (PPP) 0.4 See Comment Below for Therapeutic Ranges IU/mL [facility] Heparin unfractionated Chrom ogenic method Qn (PPP)on 11-10-2023 Interpretation and review of laboratory results Normal [facility] Magnesiumon 11-10-2023 Magnesium [Mass/Vol] 2.15 mg/dL 1.60 - 2.40 mg/dL [facility] Magnesium [Mass/Vol] 2.06 mg/dL 1.60 - 2.40 mg/dL [facility] Magnesium [Mass/Vol]on 11-09 Interpretation and review of laboratory results Normal [facility] Interpretation and review of laboratory results Normal [facility] No Panel Informationon 11-09 [facility] Renal function 2000 panelon 11-10-2023 Albumin BCP dye [Mass/Vol] 3.7 g/dL 3.4 - 5.0 g/dL [facility] Anion gap [Moles/Vol] 17 mmol/L 10 - 2 0 mmol/L [facility] Calcium [Mass/Vol] 9.1 mg/dL 8.6 - 10. 6 mg/dL [facility] Chloride [Moles/Vol] 93 mmol/L Low 98 - 10 7 mmol/L [facility] CO2 [Moles/Vol] 30 mmol/L 21 - 32 mmol/L [facility] Creatinine [Mass/Vol] 1.85 mg/dL High 0.50 - 1.30 mg/dL [facility] GFR/1.73 sq M.predicted among non-blacks MDRD (S/P/Bld) [Vol rate/Area] 36 mL/min/{1.73_m2} Low - PINF [facility] Glucose [Mass/Vol] 169 mg/dL High 74 - 99 mg/dL [facility] Interpretation and review of laboratory results Abnormal [facility] Phosphate [Mass/Vol] 4.0 mg/dL 2.5 - 4 .9 mg/dL [facility] Potassium [Moles/Vol] 4.3 mmol/L 3.5 - 5.3 mmol/L [facility] Sodium [Moles/Vol] 136 mmol/L 136 - 145 mmol/L [facility] Urea nitrogen [Mass/Vol] 41 mg/dL High 6 - 23 mg/dL [facility] Albumin BCP dye [Mass/Vol] 3.4 g/dL 3.4 - 5.0 g/dL [facility] Anion gap [Moles/Vol] 17 mmol/L 10 - 2 0 mmol/L [facility] Calcium [Mass/Vol] 8.9 mg/dL 8.6 - 10. 6 mg/dL [facility] Chloride [Moles/Vol] 95 mmol/L Low 98 - 10 7 mmol/L [facility] CO2 [Moles/Vol] 27 mmol/L 21 - 32 mmol/L [facility] Creatinine [Mass/Vol] 1.74 mg/dL High 0.50 - 1.30 mg/dL [facility] GFR/1.73 sq M.predicted among non-blacks MDRD (S/P/Bld) [Vol rate/Area] 39 mL/min/{1.73_m2} Low - PINF [facility] Glucose [Mass/Vol] 169 mg/dL High 74 - 99 mg/dL [facility] Interpretation and review of laboratory results Abnormal [facility] Phosphate [Mass/Vol] 3.1 mg/dL 2.5 - 4 .9 mg/dL [facility] Potassium [Moles/Vol] 3.7 mmol/L 3.5 - 5.3 mmol/L [facility] Sodium [Moles/Vol] 135 mmol/L Low 136 - 145 mmol/L [facility] Urea nitrogen [Mass/Vol] 38 mg/dL High 6 - 23 mg/dL [facility] Glucose Test strip manual (B ld) [Mass/Vol]on 11-09-2023 Glucose [Mass/Vol] 159 mg/dL High 74 - 99 mg/dL [facility] Interpretation and review of laboratory results Abnormal [facility] Glucose [Mass/Vol] 247 mg/dL High 74 - 99 mg/dL [facility] Interpretation and review of laboratory results Abnormal [facility] Glucose [Mass/Vol] 212 mg/dL High 74 - 99 mg/dL [facility] Interpretation and review of laboratory results Abnormal [facility] Glucose [Mass/Vol] 139 mg/dL High 74 - 99 mg/dL [facility] Interpretation and review of laboratory results Abnormal [facility] Heparin Assay, UFHon 024 Heparin unfractionated Chromogenic method Qn (PPP) 0.4 See Comment Below for Therapeutic Ranges IU/mL [facility] Heparin unfractionated Chrom ogenic method Qn (PPP)on 11-09-2023 Interpretation and review of laboratory results Normal [facility] CBC panel Auto (Bld)on 11-07 Erythrocyte distribution width (RBC) [Ratio] 16.2 % High 11.5 - 14.5 % [facility] Hematocrit (Bld) [Volume fraction] 32.3 % Low 41.0 - 52.0 % [facility] Hemoglobin (Bld) [Mass/Vol] 10.4 g/dL Low 13.5 - 17.5 g/dL [facility] Interpretation and review of laboratory results Abnormal [facility] MCH (RBC) [Entitic mass] 31.1 pg 26.0 - 34.0 pg [facility] MCHC (RBC) [Mass/Vol] 32.2 g/dL 32.0 - 36.0 g/dL [facility] MCV (RBC) [Entitic vol] 97 fL 80 - 100 fL [facility] Nucleated RBC/100 WBC (Bld) [Ratio] 0.0 % [facility] Platelets (Bld) [#/Vol] 286 10*3/uL [facility] RBC (Bld) [#/Vol] 3.34 10*6/uL [facility] WBC (Bld) [#/Vol] 8.1 10*3/uL [facility] Cardiac device check - Surge ryOrdered By: Robert Roberson on 11-08-2023 [facility] Work Phone: Glucose Test strip manual (B ld) [Mass/Vol]on 11-08-2023 Glucose [Mass/Vol] 226 mg/dL High 74 - 99 mg/dL [facility] Interpretation and review of laboratory results Abnormal [facility] Glucose [Mass/Vol] 193 mg/dL High 74 - 99 mg/dL [facility] Interpretation and review of laboratory results Abnormal [facility] Glucose [Mass/Vol] 214 mg/dL High 74 - 99 mg/dL [facility] Interpretation and review of laboratory results Abnormal [facility] Glucose [Mass/Vol] 131 mg/dL High 74 - 99 mg/dL [facility] Interpretation and review of laboratory results Abnormal [facility] Heparin Assay, UFHon 024 Heparin unfractionated Chromogenic method Qn (PPP) 0.4 See Comment Below for Therapeutic Ranges IU/mL [facility] Heparin unfractionated Chrom ogenic method Qn (PPP)on 11-08-2023 Interpretation and review of laboratory results Normal [facility] Magnesiumon 11-08-2023 Magnesium [Mass/Vol] 2.16 mg/dL 1.60 - 2.40 mg/dL [facility] Magnesium [Mass/Vol]on 11-07 Interpretation and review of laboratory results Normal [facility] No Panel Informationon 11-07 [facility] Renal function 2000 panelon 11-08-2023 Albumin BCP dye [Mass/Vol] 3.7 g/dL 3.4 - 5.0 g/dL [facility] Anion gap [Moles/Vol] 17 mmol/L 10 - 2 0 mmol/L [facility] Calcium [Mass/Vol] 9.4 mg/dL 8.6 - 10. 6 mg/dL [facility] Chloride [Moles/Vol] 92 mmol/L Low 98 - 10 7 mmol/L [facility] CO2 [Moles/Vol] 29 mmol/L 21 - 32 mmol/L [facility] Creatinine [Mass/Vol] 1.82 mg/dL High 0.50 - 1.30 mg/dL [facility] GFR/1.73 sq M.predicted among non-blacks MDRD (S/P/Bld) [Vol rate/Area] 37 mL/min/{1.73_m2} Low - PINF [facility] Glucose [Mass/Vol] 238 mg/dL High 74 - 99 mg/dL [facility] Interpretation and review of laboratory results Abnormal [facility] Phosphate [Mass/Vol] 4.1 mg/dL 2.5 - 4 .9 mg/dL [facility] Potassium [Moles/Vol] 3.4 mmol/L Low 3.5 - 5.3 mmol/L [facility] Sodium [Moles/Vol] 135 mmol/L Low 136 - 145 mmol/L [facility] Urea nitrogen [Mass/Vol] 40 mg/dL High 6 - 23 mg/dL [facility] Albumin BCP dye [Mass/Vol] 3.6 g/dL 3.4 - 5.0 g/dL [facility] Anion gap [Moles/Vol] 18 mmol/L 10 - 2 0 mmol/L [facility] Calcium [Mass/Vol] 9.7 mg/dL 8.6 - 10. 6 mg/dL [facility] Chloride [Moles/Vol] 93 mmol/L Low 98 - 10 7 mmol/L [facility] CO2 [Moles/Vol] 32 mmol/L 21 - 32 mmol/L [facility] Creatinine [Mass/Vol] 1.75 mg/dL High 0.50 - 1.30 mg/dL [facility] GFR/1.73 sq M.predicted among non-blacks MDRD (S/P/Bld) [Vol rate/Area] 38 mL/min/{1.73_m2} Low - PINF [facility] Glucose [Mass/Vol] 121 mg/dL High 74 - 99 mg/dL [facility] Interpretation and review of laboratory results Abnormal [facility] Phosphate [Mass/Vol] 4.5 mg/dL 2.5 - 4 .9 mg/dL [facility] Potassium [Moles/Vol] 3.9 mmol/L 3.5 - 5.3 mmol/L [facility] Sodium [Moles/Vol] 139 mmol/L 136 - 145 mmol/L [facility] Urea nitrogen [Mass/Vol] 38 mg/dL High 6 - 23 mg/dL [facility] Von Willebrand Factor Antige n; [facility]; VWF - Miscellaneous TestOrdered By: Anabel Callahan on 11-08-2023 Scan Result See Scanned Result [facility] CBC panel Auto (Bld)on 11-06 Erythrocyte distribution width (RBC) [Ratio] 16.3 % High 11.5 - 14.5 % [facility] Hematocrit (Bld) [Volume fraction] 32.0 % Low 41.0 - 52.0 % [facility] Hemoglobin (Bld) [Mass/Vol] 10.2 g/dL Low 13.5 - 17.5 g/dL [facility] Interpretation and review of laboratory results Abnormal [facility] MCH (RBC) [Entitic mass] 31.1 pg 26.0 - 34.0 pg [facility] MCHC (RBC) [Mass/Vol] 31.9 g/dL Low 32.0 - 36.0 g/dL [facility] MCV (RBC) [Entitic vol] 98 fL 80 - 100 fL [facility] Nucleated RBC/100 WBC (Bld) [Ratio] 0.0 % [facility] Platelets (Bld) [#/Vol] 338 10*3/uL [facility] RBC (Bld) [#/Vol] 3.28 10*6/uL [facility] WBC (Bld) [#/Vol] 9.0 10*3/uL [facility] Glucose Test strip manual (B ld) [Mass/Vol]on 11-07-2023 Glucose [Mass/Vol] 258 mg/dL High 74 - 99 mg/dL [facility] Interpretation and review of laboratory results Abnormal [facility] Glucose [Mass/Vol] 145 mg/dL High 74 - 99 mg/dL [facility] Interpretation and review of laboratory results Abnormal [facility] Glucose [Mass/Vol] 215 mg/dL High 74 - 99 mg/dL [facility] Interpretation and review of laboratory results Abnormal [facility] Glucose [Mass/Vol] 137 mg/dL High 74 - 99 mg/dL [facility] Interpretation and review of laboratory results Abnormal [facility] Heparin Assay, UFHon 024 Heparin unfractionated Chromogenic method Qn (PPP) 0.4 See Comment Below for Therapeutic Ranges IU/mL [facility] Heparin unfractionated Chrom ogenic method Qn (PPP)on 11-07-2023 Interpretation and review of laboratory results Normal [facility] Magnesiumon 11-07-2023 Magnesium [Mass/Vol] 2.09 mg/dL 1.60 - 2.40 mg/dL [facility] Magnesium [Mass/Vol]on 11-06 Interpretation and review of laboratory results Normal [facility] No Panel Informationon 11-06 [facility] Renal function 2000 panelon 11-07-2023 Albumin BCP dye [Mass/Vol] 3.7 g/dL 3.4 - 5.0 g/dL [facility] Anion gap [Moles/Vol] 17 mmol/L 10 - 2 0 mmol/L [facility] Calcium [Mass/Vol] 9.8 mg/dL 8.6 - 10. 6 mg/dL [facility] Chloride [Moles/Vol] 92 mmol/L Low 98 - 10 7 mmol/L [facility] CO2 [Moles/Vol] 33 mmol/L High 21 - 32 mmol/L [facility] Creatinine [Mass/Vol] 1.74 mg/dL High 0.50 - 1.30 mg/dL [facility] GFR/1.73 sq M.predicted among non-blacks MDRD (S/P/Bld) [Vol rate/Area] 39 mL/min/{1.73_m2} Low - PINF [facility] Glucose [Mass/Vol] 164 mg/dL High 74 - 99 mg/dL [facility] Interpretation and review of laboratory results Abnormal [facility] Phosphate [Mass/Vol] 4.1 mg/dL 2.5 - 4 .9 mg/dL [facility] Potassium [Moles/Vol] 4.2 mmol/L 3.5 - 5.3 mmol/L [facility] Sodium [Moles/Vol] 138 mmol/L 136 - 145 mmol/L [facility] Urea nitrogen [Mass/Vol] 36 mg/dL High 6 - 23 mg/dL [facility] CBC panel Auto (Bld)on 11-05 Erythrocyte distribution width (RBC) [Ratio] 16.1 % High 11.5 - 14.5 % [facility] Hematocrit (Bld) [Volume fraction] 31.2 % Low 41.0 - 52.0 % [facility] Hemoglobin (Bld) [Mass/Vol] 9.9 g/dL Low 13.5 - 17.5 g/dL [facility] Interpretation and review of laboratory results Abnormal [facility] MCH (RBC) [Entitic mass] 31.3 pg 26.0 - 34.0 pg [facility] MCHC (RBC) [Mass/Vol] 31.7 g/dL Low 32.0 - 36.0 g/dL [facility] MCV (RBC) [Entitic vol] 99 fL 80 - 100 fL [facility] Nucleated RBC/100 WBC (Bld) [Ratio] 0.0 % [facility] Platelets (Bld) [#/Vol] 318 10*3/uL [facility] RBC (Bld) [#/Vol] 3.16 10*6/uL [facility] WBC (Bld) [#/Vol] 8.0 10*3/uL [facility] Erythrocyte distribution width (RBC) [Ratio] 16.1 % High 11.5 - 14.5 % [facility] Hematocrit (Bld) [Volume fraction] 29.4 % Low 41.0 - 52.0 % [facility] Hemoglobin (Bld) [Mass/Vol] 9.6 g/dL Low 13.5 - 17.5 g/dL [facility] Interpretation and review of laboratory results Abnormal [facility] MCH (RBC) [Entitic mass] 31.8 pg 26.0 - 34.0 pg [facility] MCHC (RBC) [Mass/Vol] 32.7 g/dL 32.0 - 36.0 g/dL [facility] MCV (RBC) [Entitic vol] 97 fL 80 - 100 fL [facility] Nucleated RBC/100 WBC (Bld) [Ratio] 0.0 % [facility] Platelets (Bld) [#/Vol] 330 10*3/uL [facility] RBC (Bld) [#/Vol] 3.02 10*6/uL [facility] WBC (Bld) [#/Vol] 8.5 10*3/uL [facility] Glucose Test strip manual (B ld) [Mass/Vol]on 11-06-2023 Glucose [Mass/Vol] 215 mg/dL High 74 - 99 mg/dL [facility] Interpretation and review of laboratory results Abnormal [facility] Glucose [Mass/Vol] 157 mg/dL High 74 - 99 mg/dL [facility] Interpretation and review of laboratory results Abnormal [facility] Glucose [Mass/Vol] 159 mg/dL High 74 - 99 mg/dL [facility] Interpretation and review of laboratory results Abnormal [facility] Glucose [Mass/Vol] 135 mg/dL High 74 - 99 mg/dL [facility] Interpretation and review of laboratory results Abnormal [facility] Heparin Assay, UFHon 024 Heparin unfractionated Chromogenic method Qn (PPP) 0.5 See Comment Below for Therapeutic Ranges IU/mL [facility] Heparin unfractionated Chrom ogenic method Qn (PPP)on 11-06-2023 Interpretation and review of laboratory results Normal [facility] Magnesiumon 11-06-2023 Magnesium [Mass/Vol] 2.15 mg/dL 1.60 - 2.40 mg/dL [facility] Magnesium [Mass/Vol]on 11-05 Interpretation and review of laboratory results Normal [facility] No Panel Informationon 11-05 [facility] Renal function 2000 panelon 11-06-2023 Albumin BCP dye [Mass/Vol] 3.6 g/dL 3.4 - 5.0 g/dL [facility] Anion gap [Moles/Vol] 17 mmol/L 10 - 2 0 mmol/L [facility] Calcium [Mass/Vol] 9.5 mg/dL 8.6 - 10. 6 mg/dL [facility] Chloride [Moles/Vol] 96 mmol/L Low 98 - 10 7 mmol/L [facility] CO2 [Moles/Vol] 30 mmol/L 21 - 32 mmol/L [facility] Creatinine [Mass/Vol] 1.63 mg/dL High 0.50 - 1.30 mg/dL [facility] GFR/1.73 sq M.predicted among non-blacks MDRD (S/P/Bld) [Vol rate/Area] 42 mL/min/{1.73_m2} Low - PINF [facility] Glucose [Mass/Vol] 151 mg/dL High 74 - 99 mg/dL [facility] Interpretation and review of laboratory results Abnormal [facility] Phosphate [Mass/Vol] 3.4 mg/dL 2.5 - 4 .9 mg/dL [facility] Potassium [Moles/Vol] 4.0 mmol/L 3.5 - 5.3 mmol/L [facility] Sodium [Moles/Vol] 139 mmol/L 136 - 145 mmol/L [facility] Urea nitrogen [Mass/Vol] 33 mg/dL High 6 - 23 mg/dL [facility] CBC panel Auto (Bld)on 11-04 Erythrocyte distribution width (RBC) [Ratio] 15.9 % High 11.5 - 14.5 % [facility] Hematocrit (Bld) [Volume fraction] 29.0 % Low 41.0 - 52.0 % [facility] Hemoglobin (Bld) [Mass/Vol] 9.1 g/dL Low 13.5 - 17.5 g/dL [facility] Interpretation and review of laboratory results Abnormal [facility] MCH (RBC) [Entitic mass] 30.7 pg 26.0 - 34.0 pg [facility] MCHC (RBC) [Mass/Vol] 31.4 g/dL Low 32.0 - 36.0 g/dL [facility] MCV (RBC) [Entitic vol] 98 fL 80 - 100 fL [facility] Nucleated RBC/100 WBC (Bld) [Ratio] 0.0 % [facility] Platelets (Bld) [#/Vol] 309 10*3/uL [facility] RBC (Bld) [#/Vol] 2.96 10*6/uL [facility] WBC (Bld) [#/Vol] 8.1 10*3/uL [facility] ECG 12 LeadOrdered By: Hal Dickey on 11-05-2023 Atrial Rate 73 BPM [facility] Work Phone: [phone] Q Onset 214 ms [facility] Work Phone: [phone] QRS Count 11 beats [facility] Work Phone: [phone] QRS Duration 158 ms [facility] Work Phone: [phone] QT Interval 448 ms [facility] Work Phone: [phone] QTC Calculation(Bazett) 483 ms [facility] Work Phone: [phone] QTC [place] [address] [facility] Work Phone: [phone] R [place] -60 degrees [facility] Work Phone: T [place] 109 degrees [facility] Work Phone: [phone] T Offset 438 ms [facility] Work Phone: Ventricular Rate 70 BPM [facility] Work Phone: [facility] Work Phone: ECG 12 Leadon 11-05-2023 [facility] Work Phone: Glucose Test strip manual (B ld) [Mass/Vol]on 11-05-2023 Glucose [Mass/Vol] 188 mg/dL High 74 - 99 mg/dL [facility] Interpretation and review of laboratory results Abnormal [facility] Glucose [Mass/Vol] 150 mg/dL High 74 - 99 mg/dL [facility] Interpretation and review of laboratory results Abnormal [facility] Glucose [Mass/Vol] 252 mg/dL High 74 - 99 mg/dL [facility] Interpretation and review of laboratory results Abnormal [facility] Glucose [Mass/Vol] 111 mg/dL High 74 - 99 mg/dL [facility] Interpretation and review of laboratory results Abnormal [facility] Heparin Assay, UFHon 024 Heparin unfractionated Chromogenic method Qn (PPP) 0.6 See Comment Below for Therapeutic Ranges IU/mL [facility] Heparin unfractionated Chromogenic method Qn (PPP) 0.5 See Comment Below for Therapeutic Ranges IU/mL [facility] Heparin unfractionated Chromogenic method Qn (PPP) 0.2 See Comment Below for Therapeutic Ranges IU/mL [facility] Heparin unfractionated Chrom ogenic method Qn (PPP)on 11-05-2023 Interpretation and review of laboratory results Normal [facility] Interpretation and review of laboratory results Normal [facility] Interpretation and review of laboratory results Normal [facility] Magnesiumon 11-05-2023 Magnesium [Mass/Vol] 1.84 mg/dL 1.60 - 2.40 mg/dL [facility] Magnesium [Mass/Vol]on 11-04 Interpretation and review of laboratory results Normal [facility] No Panel Informationon 11-04 [facility] Renal function 2000 panelon 11-05-2023 Albumin BCP dye [Mass/Vol] 3.2 g/dL Low 3.4 - 5.0 g/dL [facility] Anion gap [Moles/Vol] 15 mmol/L 10 - 2 0 mmol/L [facility] Calcium [Mass/Vol] 8.5 mg/dL Low 8.6 - 10. 6 mg/dL [facility] Chloride [Moles/Vol] 93 mmol/L Low 98 - 10 7 mmol/L [facility] CO2 [Moles/Vol] 33 mmol/L High 21 - 32 mmol/L [facility] Creatinine [Mass/Vol] 1.32 mg/dL High 0.50 - 1.30 mg/dL [facility] GFR/1.73 sq M.predicted among non-blacks MDRD (S/P/Bld) [Vol rate/Area] 54 mL/min/{1.73_m2} Low - PINF [facility] Glucose [Mass/Vol] 277 mg/dL High 74 - 99 mg/dL [facility] Interpretation and review of laboratory results Abnormal [facility] Phosphate [Mass/Vol] 3.6 mg/dL 2.5 - 4 .9 mg/dL [facility] Potassium [Moles/Vol] 3.6 mmol/L 3.5 - 5.3 mmol/L [facility] Sodium [Moles/Vol] 137 mmol/L 136 - 145 mmol/L [facility] Urea nitrogen [Mass/Vol] 31 mg/dL High 6 - 23 mg/dL [facility] CBC panel Auto (Bld)on 11-03 Erythrocyte distribution width (RBC) [Ratio] 15.9 % High 11.5 - 14.5 % [facility] Hematocrit (Bld) [Volume fraction] 29.1 % Low 41.0 - 52.0 % [facility] Hemoglobin (Bld) [Mass/Vol] 9.2 g/dL Low 13.5 - 17.5 g/dL [facility] Interpretation and review of laboratory results Abnormal [facility] MCH (RBC) [Entitic mass] 31.3 pg 26.0 - 34.0 pg [facility] MCHC (RBC) [Mass/Vol] 31.6 g/dL Low 32.0 - 36.0 g/dL [facility] MCV (RBC) [Entitic vol] 99 fL 80 - 100 fL [facility] Nucleated RBC/100 WBC (Bld) [Ratio] 0.0 % [facility] Platelets (Bld) [#/Vol] 348 10*3/uL [facility] RBC (Bld) [#/Vol] 2.94 10*6/uL [facility] WBC (Bld) [#/Vol] 8.0 10*3/uL [facility] Glucose Test strip manual (B ld) [Mass/Vol]on 11-04-2023 Glucose [Mass/Vol] 171 mg/dL High 74 - 99 mg/dL [facility] Interpretation and review of laboratory results Abnormal [facility] Glucose [Mass/Vol] 186 mg/dL High 74 - 99 mg/dL [facility] Interpretation and review of laboratory results Abnormal [facility] Glucose [Mass/Vol] 180 mg/dL High 74 - 99 mg/dL [facility] Interpretation and review of laboratory results Abnormal [facility] Glucose [Mass/Vol] 112 mg/dL High 74 - 99 mg/dL [facility] Interpretation and review of laboratory results Abnormal [facility] Haptoglobinon 11-04-2023 Haptoglobin [Mass/Vol] 141 mg/dL 37 - 246 mg/dL [facility] Haptoglobin [Mass/Vol]on Interpretation and review of laboratory results Normal [facility] Heparin Assay, UFHon 024 Heparin unfractionated Chromogenic method Qn (PPP) 0.1 See Comment Below for Therapeutic Ranges IU/mL [facility] Heparin unfractionated Chromogenic method Qn (PPP) 0.3 See Comment Below for Therapeutic Ranges IU/mL [facility] Heparin unfractionated Chrom ogenic method Qn (PPP)on 11-04-2023 Interpretation and review of laboratory results Normal [facility] Interpretation and review of laboratory results Normal [facility] Magnesiumon 11-04-2023 Magnesium [Mass/Vol] 1.57 mg/dL Low 1.60 - 2.40 mg/dL [facility] No Panel Informationon 11-03 Interpretation and review of laboratory results Abnormal [facility] Renal function 2000 panelon 11-04-2023 Albumin BCP dye [Mass/Vol] 3.4 g/dL 3.4 - 5.0 g/dL [facility] Anion gap [Moles/Vol] 15 mmol/L 10 - 2 0 mmol/L [facility] Calcium [Mass/Vol] 8.8 mg/dL 8.6 - 10. 6 mg/dL [facility] Chloride [Moles/Vol] 98 mmol/L 98 - 10 7 mmol/L [facility] CO2 [Moles/Vol] 31 mmol/L 21 - 32 mmol/L [facility] Creatinine [Mass/Vol] 1.38 mg/dL High 0.50 - 1.30 mg/dL [facility] GFR/1.73 sq M.predicted among non-blacks MDRD (S/P/Bld) [Vol rate/Area] 51 mL/min/{1.73_m2} Low - PINF [facility] Glucose [Mass/Vol] 176 mg/dL High 74 - 99 mg/dL [facility] Phosphate [Mass/Vol] 3.5 mg/dL 2.5 - 4 .9 mg/dL [facility] Potassium [Moles/Vol] 3.6 mmol/L 3.5 - 5.3 mmol/L [facility] Sodium [Moles/Vol] 140 mmol/L 136 - 145 mmol/L [facility] Urea nitrogen [Mass/Vol] 32 mg/dL High 6 - 23 mg/dL [facility] CBC panel Auto (Bld)on 11-02 Erythrocyte distribution width (RBC) [Ratio] 15.9 % High 11.5 - 14.5 % [facility] Hematocrit (Bld) [Volume fraction] 29.2 % Low 41.0 - 52.0 % [facility] [facility] Hemoglobin (Bld) [Mass/Vol] 9.3 g/dL Low 13.5 - 17.5 g/dL [facility] Interpretation and review of laboratory results Abnormal [facility] MCH (RBC) [Entitic mass] 31.4 pg 26.0 - 34.0 pg [facility] MCHC (RBC) [Mass/Vol] 31.8 g/dL Low 32.0 - 36.0 g/dL [facility] MCV (RBC) [Entitic vol] 99 fL 80 - 100 fL [facility] Nucleated RBC/100 WBC (Bld) [Ratio] 0.0 % [facility] Platelets (Bld) [#/Vol] 339 10*3/uL [facility] RBC (Bld) [#/Vol] 2.96 10*6/uL Low [facility] WBC (Bld) [#/Vol] 6.0 10*3/uL [facility] Cardiac device check - Surge nichol 11-03-2023 Radiology Study observation (narrative) [facility] Work Phone: EGD Study observation Narrat iveon 11-03-2023 [facility] Work Phone: Radiology Study observation (narrative) [facility] Work Phone: EGD Study observation Narrat iveOrdered By: Fela Dsouza on 11-03-2023 [facility] Work Phone: Glucose Test strip manual (B ld) [Mass/Vol]on 11-03-2023 Glucose [Mass/Vol] 187 mg/dL High 74 - 99 mg/dL [facility] Interpretation and review of laboratory results Abnormal [facility] Glucose [Mass/Vol] 179 mg/dL High 74 - 99 mg/dL [facility] Interpretation and review of laboratory results Abnormal [facility] Glucose [Mass/Vol] 127 mg/dL High 74 - 99 mg/dL [facility] Interpretation and review of laboratory results Abnormal [facility] Glucose [Mass/Vol] 130 mg/dL High 74 - 99 mg/dL [facility] Interpretation and review of laboratory results Abnormal [facility] LDH Lactate to pyruvate reac tion [Catalytic activity/Vol]on 11-03-2023 Interpretation and review of laboratory results Normal [facility] Lactate dehydrogenaseon LDH Lactate to pyruvate reaction [Catalytic activity/Vol] 215 U/L 84 - 246 U/L [facility] Magnesiumon 11-03-2023 Magnesium [Mass/Vol] 1.71 mg/dL 1.60 - 2.40 mg/dL [facility] Magnesium [Mass/Vol]on 11-02 Interpretation and review of laboratory results Normal [facility] No Panel Informationon 11-02 [facility] Renal function 2000 panelon 11-03-2023 Albumin BCP dye [Mass/Vol] 3.2 g/dL Low 3.4 - 5.0 g/dL [facility] Anion gap [Moles/Vol] 12 mmol/L 10 - 2 0 mmol/L [facility] Calcium [Mass/Vol] 8.6 mg/dL 8.6 - 10. 6 mg/dL [facility] Chloride [Moles/Vol] 100 mmol/L 98 - 10 7 mmol/L [facility] CO2 [Moles/Vol] 33 mmol/L High 21 - 32 mmol/L [facility] Creatinine [Mass/Vol] 1.30 mg/dL 0.50 - 1.30 mg/dL [facility] GFR/1.73 sq M.predicted among non-blacks MDRD (S/P/Bld) [Vol rate/Area] 55 mL/min/{1.73_m2} Low - PINF [facility] Glucose [Mass/Vol] 189 mg/dL High 74 - 99 mg/dL [facility] Interpretation and review of laboratory results Abnormal [facility] Phosphate [Mass/Vol] 3.3 mg/dL 2.5 - 4 .9 mg/dL [facility] Potassium [Moles/Vol] 4.0 mmol/L 3.5 - 5.3 mmol/L [facility] Sodium [Moles/Vol] 141 mmol/L 136 - 145 mmol/L [facility] Urea nitrogen [Mass/Vol] 32 mg/dL High 6 - 23 mg/dL [facility] CBC panel Auto (Bld)on 11-01 Erythrocyte distribution width (RBC) [Ratio] 15.9 % High 11.5 - 14.5 % [facility] Hematocrit (Bld) [Volume fraction] 29.9 % Low 41.0 - 52.0 % [facility] Hemoglobin (Bld) [Mass/Vol] 9.7 g/dL Low 13.5 - 17.5 g/dL [facility] Interpretation and review of laboratory results Abnormal [facility] MCH (RBC) [Entitic mass] 31.3 pg 26.0 - 34.0 pg [facility] MCHC (RBC) [Mass/Vol] 32.4 g/dL 32.0 - 36.0 g/dL [facility] MCV (RBC) [Entitic vol] 97 fL 80 - 100 fL [facility] Nucleated RBC/100 WBC (Bld) [Ratio] 0.0 % [facility] Platelets (Bld) [#/Vol] 417 10*3/uL [facility] RBC (Bld) [#/Vol] 3.10 10*6/uL [facility] WBC (Bld) [#/Vol] 6.1 10*3/uL [facility] Cobalamin (Vitamin B12) [Mas s/Vol]on 11-02-2023 Interpretation and review of laboratory results Normal [facility] Folateon 11-02-2023 Folate [Mass/Vol] ng/mL 5.0 - PINF ng/mL [facility] Folate [Mass/Vol]on 11-02-19 Interpretation and review of laboratory results Normal [facility] Glucose Test strip manual (B ld) [Mass/Vol]on 11-02-2023 Glucose [Mass/Vol] 147 mg/dL High 74 - 99 mg/dL [facility] Interpretation and review of laboratory results Abnormal [facility] Glucose [Mass/Vol] 217 mg/dL High 74 - 99 mg/dL [facility] Interpretation and review of laboratory results Abnormal [facility] Glucose [Mass/Vol] 195 mg/dL High 74 - 99 mg/dL [facility] Interpretation and review of laboratory results Abnormal [facility] Glucose [Mass/Vol] 135 mg/dL High 74 - 99 mg/dL [facility] Interpretation and review of laboratory results Abnormal [facility] Magnesiumon 11-02-2023 Magnesium [Mass/Vol] 2.06 mg/dL 1.60 - 2.40 mg/dL [facility] Magnesium [Mass/Vol]on 11-01 Interpretation and review of laboratory results Normal [facility] No Panel Informationon 11-01 [facility] Renal function 2000 panelon 11-02-2023 Albumin BCP dye [Mass/Vol] 3.4 g/dL 3.4 - 5.0 g/dL [facility] Anion gap [Moles/Vol] 13 mmol/L 10 - 2 0 mmol/L [facility] Calcium [Mass/Vol] 8.8 mg/dL 8.6 - 10. 6 mg/dL [facility] Chloride [Moles/Vol] 97 mmol/L Low 98 - 10 7 mmol/L [facility] CO2 [Moles/Vol] 32 mmol/L 21 - 32 mmol/L [facility] Creatinine [Mass/Vol] 1.25 mg/dL 0.50 - 1.30 mg/dL [facility] GFR/1.73 sq M.predicted among non-blacks MDRD (S/P/Bld) [Vol rate/Area] 57 mL/min/{1.73_m2} Low - PINF [facility] Glucose [Mass/Vol] 202 mg/dL High 74 - 99 mg/dL [facility] Interpretation and review of laboratory results Abnormal [facility] Phosphate [Mass/Vol] 3.1 mg/dL 2.5 - 4 .9 mg/dL [facility] Potassium [Moles/Vol] 3.1 mmol/L Low 3.5 - 5.3 mmol/L [facility] Sodium [Moles/Vol] 139 mmol/L 136 - 145 mmol/L [facility] Urea nitrogen [Mass/Vol] 37 mg/dL High 6 - 23 mg/dL [facility] Vitamin B12on 11-02-2023 Cobalamin (Vitamin B12) [Mass/Vol] 669 pg/mL 211 - 911 pg/mL [facility] XR Chest 2 Viewson 4 UH MMODAL UH MMODAL [facility] Work Phone: XR Chest 2 ViewsOrdered By: Jessica Danielle on 11-02-2023 [facility] Work Phone: Blood type and Indirect anti body screen panel (Bld)on 11-01-2023 ABO group Nom (Bld) AB [facility] Blood group antibody screen Ql Negative [facility] D Ag Ql (Bld) Negative [facility] CBC panel Auto (Bld)on 10-31 Erythrocyte distribution width (RBC) [Ratio] 15.8 % High 11.5 - 14.5 % [facility] Hematocrit (Bld) [Volume fraction] 27.7 % Low 41.0 - 52.0 % [facility] Hemoglobin (Bld) [Mass/Vol] 9.1 g/dL Low 13.5 - 17.5 g/dL [facility] Interpretation and review of laboratory results Abnormal [facility] MCH (RBC) [Entitic mass] 31.1 pg 26.0 - 34.0 pg [facility] MCHC (RBC) [Mass/Vol] 32.9 g/dL 32.0 - 36.0 g/dL [facility] MCV (RBC) [Entitic vol] 95 fL 80 - 100 fL [facility] Nucleated RBC/100 WBC (Bld) [Ratio] 0.0 % [facility] Platelets (Bld) [#/Vol] 383 10*3/uL [facility] RBC (Bld) [#/Vol] 2.93 10*6/uL Low [facility] WBC (Bld) [#/Vol] 5.4 10*3/uL [facility] ECG 12-LEADon 11-01-2023 ECG 12-LEAD Ventricular Rate 70 Atrial Rate 73 QRS Duration 158 Q-T Interval 448 QTC Calculation(Bazett) 483 R [place] -60 T [place] 109 QRS Count 11 Q Onset 214 T Offset 438 QTC Fredericia 471 Diagnosis Undetermined rhythm Left axis deviation Left ventricular hypertrophy with QRS widening and repolarization abnormality Lateral infarct , age undetermined Inferior infarct , age undetermined Abnormal ECG No previous ECGs available Confirmed by Hal Dickey ([id number]) on 11/05/2023 12:48:30 PM Normal [facility] Ferritinon 11-01-2023 Ferritin [Mass/Vol] 496 ng/mL High 20 - 300 ng/mL [facility] Free T4 [Mass/Vol]on 024 Interpretation and review of laboratory results Normal [facility] Glucose Test strip manual (B ld) [Mass/Vol]on 11-01-2023 Glucose [Mass/Vol] 189 mg/dL High 74 - 99 mg/dL [facility] Interpretation and review of laboratory results Abnormal [facility] HbA1c (Bld) [Mass fraction]o n 11-01-2023 Average glucose Estimated from glycated hemoglobin (Bld) [Mass/Vol] 151 mg/dL Not Established [facility] Interpretation and review of laboratory results Abnormal [facility] Hemoglobin A1con 11-01-2023 HbA1c (Bld) [Mass fraction] 6.9 % High see below [facility] Iron and Iron binding capaci ty panelon 11-01-2023 Iron [Mass/Vol] 63 ug/dL 35 - 150 ug/dL [facility] Iron binding capacity [Mass/Vol] 259 ug/dL 240 - 445 ug/dL [facility] Iron binding capacity.unsaturated [Mass/Vol] 196 ug/dL 110 - 370 ug/dL [facility] Iron saturation [Mass fraction] 24 % Low 25 - 45 % [facility] Lactateon 11-01-2023 Lactate [Moles/Vol] 1.9 mmol/L 0.4 - 2. 0 mmol/L [facility] Lactate [Moles/Vol]on 2023 Interpretation and review of laboratory results Normal [facility] Magnesiumon 11-01-2023 Magnesium [Mass/Vol] 1.51 mg/dL Low 1.60 - 2.40 mg/dL [facility] Natriuretic peptide B [Mass/ Vol]on 11-01-2023 Interpretation and review of laboratory results Abnormal [facility] Natriuretic peptide B (Bld) [Mass/Vol] 417 pg/mL High 0 - 99 pg/mL [facility] No Panel Informationon 10-31 Interpretation and review of laboratory results Abnormal [facility] PT and aPTT panel Coag (PPP) on 11-01-2023 aPTT Coag (PPP) [Time] 37 s [facility] INR Coag (PPP) [Relative time] 1.2 {INR} High 0.9 - 1.1 [facility] Interpretation and review of laboratory results Abnormal [facility] PT Coag (PPP) [Time] 13.1 s High [facility] Renal function 2000 panelon 11-01-2023 Albumin BCP dye [Mass/Vol] 3.3 g/dL Low 3.4 - 5.0 g/dL [facility] Anion gap [Moles/Vol] 15 mmol/L 10 - 2 0 mmol/L [facility] Calcium [Mass/Vol] 8.4 mg/dL Low 8.6 - 10. 6 mg/dL [facility] Chloride [Moles/Vol] 97 mmol/L Low 98 - 10 7 mmol/L [facility] CO2 [Moles/Vol] 32 mmol/L 21 - 32 mmol/L [facility] Creatinine [Mass/Vol] 1.27 mg/dL 0.50 - 1.30 mg/dL [facility] GFR/1.73 sq M.predicted among non-blacks MDRD (S/P/Bld) [Vol rate/Area] 56 mL/min/{1.73_m2} Low - PINF [facility] Glucose [Mass/Vol] 130 mg/dL High 74 - 99 mg/dL [facility] Phosphate [Mass/Vol] 2.5 mg/dL 2.5 - 4 .9 mg/dL [facility] Potassium [Moles/Vol] 3.6 mmol/L 3.5 - 5.3 mmol/L [facility] Sodium [Moles/Vol] 140 mmol/L 136 - 145 mmol/L [facility] Urea nitrogen [Mass/Vol] 41 mg/dL High 6 - 23 mg/dL [facility] TSH with reflex to Free T4 i f abnormalon 11-01-2023 Interpretation and review of laboratory results Abnormal [facility] TSH Qn 8.94 m[IU]/L High [facility] Thyroxine, Freeon 11-01-2023 Free T4 [Mass/Vol] 1.32 ng/dL 0.78 - 1. 48 ng/dL [facility] XR Chest 2 Viewson 4 Radiology Study observation (narrative) [facility] Work Phone: Calcium [Mass/volume] in Ser um or PlasmaOrdered By: Obnydiadamadeline Aguilaromar on 10-26-2023 Calcium [Mass/Vol] 8.5 mg/dL Low 8.6-10.3 [facility] Carbon dioxide, total [Moles /volume] in Serum or PlasmaOrdered By: Obaydah Daromar on 10-26-2023 CO2 [Moles/Vol] 31.2 mmol/L High 21.0-31.0 [facility] Chloride [Moles/volume] in S paulo or PlasmaOrdered By: Obaydah Daromar on 10-26-2023 Chloride [Moles/Vol] 96 mmol/L Low 98-107 [facility] Creatinine [Mass/volume] in Serum or PlasmaOrdered By: Obaydah Daromar on 10-26-2023 Creatinine [Mass/Vol] 1.50 mg/dL High 0.70-1.30 [facility] Erythrocyte distribution wid th Auto (RBC) [Ratio]Ordered By: William Smalls on 10-26-2023 Erythrocyte distribution width (RBC) [Ratio] 16.6 % High 12.0-14.8 [facility] Glucose Glucometer (BldC) [M ass/Vol]Ordered By: William Smalls on 10-26-2023 Glucose [Mass/Vol] 282 mg/dL [facility] Comment on above: Random Glucose Refer ence Range is dependent on time and content of last meal. Glucose of more than 200 mg/dL in a nonstressed, ambulatory subject supports the diagnosis of Diabetes Mellitus. Glucose [Mass/volume] in Ser um or PlasmaOrdered By: Mary Colin on 10-26-2023 Glucose [Mass/Vol] 116 mg/dL High 70-100 [facility] Comment on above: ADA recommended refe rence rangeRandom Glucose Reference Range is dependent on time and content of last meal. Glucose of more than 200 mg/dL in a nonstressed, ambulatory subject supports the diagnosis of Diabetes Mellitus. Hematocrit Auto (Bld) [Volum e fraction]Ordered By: William Smalls on 10-26-2023 Hematocrit (Bld) [Volume fraction] 25.4 % Low 38.8-50.0 [facility] Hemoglobin [Mass/volume] in BloodOrdered By: William Smalls on 10-26-2023 Hemoglobin (Bld) [Mass/Vol] 8.9 g/dL Low 13.0-17.0 [facility] Leukocytes [#/volume] correc liborio for nucleated erythrocytes in Blood by Automated counOrdered By: William Smalls on 10-26-2023 WBC corrected for nucl RBC Auto (Bld) [#/Vol] 6.5 10*3/uL 4.1-10.5 [facility] MCH Auto (RBC) [Entitic mass ]Ordered By: William Smalls on 10-26-2023 MCH (RBC) [Entitic mass] 32.7 pg 27.5-35.2 [facility] MCHC Auto (RBC) [Mass/Vol]Or dered By: William Smalls on 10-26-2023 MCHC (RBC) [Mass/Vol] 35.1 g/dL 32.5-35.6 [facility] MCV Auto (RBC) [Entitic vol] Ordered By: William Smalls on 10-26-2023 MCV (RBC) [Entitic vol] 93.0 fL 83.5-101 [facility] Magnesium [Mass/volume] in S paulo or PlasmaOrdered By: William Smalls on 10-26-2023 Magnesium [Mass/Vol] 1.6 mg/dL Low 1.9-2.7 [facility] No Panel InformationOrdered By: Mary Colin on 10-26-2023 Estimated GFR (CKD-EPI) 46.195 mL/Min [facility] Creatinine Clearance (Chem 44.40 [facility] Platelet mean volume Auto (B ld) [Entitic vol]Ordered By: William Smalls on 10-26-2023 Platelet mean volume (Bld) [Entitic vol] 7.3 fL 6.6-10.1 [facility] Platelets Auto (Bld) [#/Vol] Ordered By: William Smalls on 10-26-2023 Platelets (Bld) [#/Vol] 264 10*3/uL 150-450 [facility] Potassium [Moles/volume] in Serum or PlasmaOrdered By: Mary Colin on 10-26-2023 Potassium [Moles/Vol] 3.4 mmol/L Low 3.5-5.1 [facility] RBC Auto (Bld) [#/Vol]Ordere d By: William Smalls on 10-26-2023 RBC (Bld) [#/Vol] 2.73 10*6/uL Low 3.90-5.60 [facility] Serum or plasma anion gap de terminationOrdered By: Mary Colin on 10-26-2023 Anion gap [Moles/Vol] 14.2 mmol/L 6.0-15.0 [facility] Sodium [Moles/volume] in Ser um or PlasmaOrdered By: Mary Aguilaromar on 10-26-2023 Sodium [Moles/Vol] 138 mmol/L 136-145 [facility] Urea nitrogen [Mass/volume] in Serum or PlasmaOrdered By: Mary Aguilaromar on 10-26-2023 Urea nitrogen [Mass/Vol] 90 mg/dL High 7-25 [facility] No Panel InformationOrdered By: William Smalls on 10-25-2023 Bedside Glucose Comment Glu2: cleaned meter [facility] Basophils Auto (Bld) [#/Vol] Ordered By: Obaydah Daromar on 10-24-2023 Basophils (Bld) [#/Vol] 0.0 10*3/uL 0.0-0.2 [facility] Basophils/100 WBC Auto (Bld) Ordered By: Obaydah Daromar on 10-24-2023 Basophils/100 WBC (Bld) 0.2 % . [facility] Eosinophils Auto (Bld) [#/Vo l]Ordered By: Obaydah Daromar on 10-24-2023 Eosinophils (Bld) [#/Vol] 0.1 10*3/uL 0.0-0.45 [facility] Eosinophils/100 WBC Auto (Bl d)Ordered By: Obaydah Daromar on 10-24-2023 Eosinophils/100 WBC (Bld) 0.4 % . [facility] Lymphocytes Auto (Bld) [#/Vo l]Ordered By: Obaydah Daromar on 10-24-2023 Lymphocytes (Bld) [#/Vol] 0.7 10*3/uL Low 1.00-4.8 [facility] Lymphocytes/100 WBC Auto (Bl d)Ordered By: Obaydah Daromar on 10-24-2023 Lymphocytes/100 WBC (Bld) 5.2 % . [facility] Monocytes Auto (Bld) [#/Vol] Ordered By: Obaydah Daromar on 10-24-2023 Monocytes (Bld) [#/Vol] 1.1 10*3/uL High 0.0-0.8 [facility] Monocytes/100 WBC Auto (Bld) Ordered By: Obaydah Daromar on 10-24-2023 Monocytes/100 WBC (Bld) 8.1 % . [facility] Neutrophils Auto (Bld) [#/Vo l]Ordered By: Obaydah Daromar on 10-24-2023 Neutrophils (Bld) [#/Vol] 11.9 10*3/uL High 1.8-7.7 [facility] Neutrophils/100 WBC Auto (Bl d)Ordered By: Obnydiadamadeline Aguilaromar on 10-24-2023 Neutrophils/100 WBC (Bld) 86.1 % . [facility] Nucleated erythrocytes [Pres ence] in Blood by Automated countOrdered By: Mary Aguilaromar on 10-24-2023 Nucleated RBC Auto Ql (Bld) 0.0 /100{WBC} 0-0.5 [facility] WBC Auto (Bld) [#/Vol]Ordere d By: Obnydiadamadeline Aguilaromar on 10-24-2023 WBC (Bld) [#/Vol] 13.8 10*3/uL High 4.1-10.5 [facility] Alanine aminotransferase [En zymatic activity/volume] in Serum or PlasmaOrdered By: Objenelle Aguilaromar on 10-23-2023 ALT [Catalytic activity/Vol] 25 U/L 7-52 [facility] Albumin [Mass/volume] in Ser um or Plasma by Bromocresol green (BCG) dye binding methoOrdered By: Objenelle Aguilaromar on 10-23-2023 Albumin BCG dye [Mass/Vol] 3.2 g/dL Low 3.5-5.7 [facility] Alkaline phosphatase [Enzyma tic activity/volume] in Serum or PlasmaOrdered By: Objenelle Aguilaromar on 10-23-2023 ALP [Catalytic activity/Vol] 77 U/L 34-104 [facility] Aspartate aminotransferase [ Enzymatic activity/volume] in Serum or PlasmaOrdered By: Obnydiadah Jeffomar on 10-23-2023 AST [Catalytic activity/Vol] 22 U/L 13-39 [facility] Bilirubin.total [Mass/volume ] in Serum or PlasmaOrdered By: Obnydiadah Jeffomar on 10-23-2023 Bilirubin [Mass/Vol] 1.0 mg/dL 0.3-1.0 [facility] Globulin Calc (S) [Mass/Vol] Ordered By: Obnydiadamadeline Aguilaromar on 10-23-2023 Globulin (S) [Mass/Vol] 3.5 g/dL [facility] Protein [Mass/volume] in Ser um or PlasmaOrdered By: Mary Colin on 10-23-2023 Protein [Mass/Vol] 6.7 g/dL 6.4-8.9 [facility] Serum or plasma albumin/glob ulin mass ratioOrdered By: Mary Colin on 10-23-2023 Albumin/Globulin [Mass ratio] 0.9 {ratio} [facility] Bilirubin Test strip Ql (U)O rdered By: Wander Davidson on 10-22-2023 Bilirubin Ql (U) Negative Negative [facility] Color Auto (U)Ordered By: Marbin Davidson on 10-22-2023 Color (U) Light-yellow Yellow [facility] Glucose [Mass/volume] in Uri ne by Test stripOrdered By: Wander Davidson on 10-22-2023 Glucose Test strip (U) [Mass/Vol] Normal mg/dL Normal [facility] Hemoglobin Test strip Ql (U) Ordered By: Wander Davidson on 10-22-2023 Hemoglobin Ql (U) Negative Negative [facility] Ketones Test strip Ql (U)Ord ered By: Wander Davidson on 10-22-2023 Ketones Ql (U) Negative Negative [facility] Leukocyte esterase [Presence ] in Urine by Test stripOrdered By: Wander Davidson on 10-22-2023 Leukocyte esterase Test strip Ql (U) Negative Negative [facility] Nitrite Test strip Ql (U)Ord ered By: Wander Davidson on 10-22-2023 Nitrite Ql (U) Negative Negative [facility] Protein Test strip (U) [Mass /Vol]Ordered By: Wander Davidson on 10-22-2023 Protein (U) [Mass/Vol] Negative Negative [facility] Specific gravity Test strip (U) [Rel density]Ordered By: Wander Davidson on 10-22-2023 Specific gravity (U) [Rel density] 1.007 1.001-1.030 [facility] Urine appearanceOrdered By: Wander Davidson on 10-22-2023 Appearance (U) Clear Clear [facility] Urobilinogen Test strip (U) [Mass/Vol]Ordered By: Wander Davidson on 10-22-2023 Urobilinogen (U) [Mass/Vol] Normal mg/dL Normal [facility] pH Test strip (U)Ordered By: Wander Davidson on 10-22-2023 pH (U) 5.0 [pH] 5.0-9.0 [facility] Anisocytosis LM Ql (Bld)Orde red By: Mary Colin on 10-20-2023 Anisocytosis Ql (Bld) Moderate [facility] Folate [Mass/volume] in Seru m or PlasmaOrdered By: Mary Colin on 10-20-2023 Folate [Mass/Vol] 2.6 ng/mL Low >5.9 [facility] Comment on above: Folate reference ran ge: >5.9 ng/mlThe WHO technical consultation on folate and vitamin [id number] has determined that folate concentrations lessthan 4 ng/ml are considered deficient. INR in Platelet poor plasma by Coagulation assayOrdered By: Mary Colin on 10-20-2023 INR Coag (PPP) [Relative time] 1.9 {INR} [facility] Comment on above: INR Therapeutic Rang e A) Pre- and Peroperative OAT started two weeks before surgery. NOT HIP SURGERY: 1.5 - 2.5 HIP SURGERY: 2 - 3B) Primary and secondary prevention of venous THROMBOSIS: 2 - 3C) Active venous thrombosis, pulmonary embolismand prevention of recurrent venous thrombosis: 2 - 3D) Prevention of arterial thromboembolismincluding patients with mechanical heart valves: 3 - 4.5 Microcytes LM Ql (Bld)Ordere d By: Mary Colin on 10-20-2023 Microcytes Ql (Bld) Slight [facility] Ovalocyte detectionOrdered B y: Mary Colin on 10-20-2023 Ovalocytes LM Ql (Bld) Slight [facility] Platelet adequacy [Presence] in Blood by Light microscopyOrdered By: Mary Colin on 10-20-2023 Platelets LM Ql (Bld) Normal Normal [facility] Platelet morphology finding [Identifier] in BloodOrdered By: Mary Colin on 10-20-2023 Platelet morphology finding Nom (Bld) Normal Normal [facility] Poikilocytosis [Presence] in Blood by Light microscopyOrdered By: Mary Colin on 10-20-2023 Poikilocytosis LM Ql (Bld) Moderate [facility] Polychromasia [Presence] in Blood by Light microscopyOrdered By: Mary Colin on 10-20-2023 Polychromasia LM Ql (Bld) Slight [facility] Prothrombin time (PT)Ordered By: Mary Colin on 10-20-2023 PT Coag (PPP) [Time] 21.2 s High 9.0-12.9 [facility] Comment on above: A hematocrit value g reater than 55% may lead to inaccurate results in coagulation testing. Patients having hematocrit values >55% require a special collection tube for coagulation studies. Please contact the laboratory at [phone] for redraw instructions. RBC morphologyOrdered By: Campos Colin on 10-20-2023 RBC morphology finding Nom (Bld) N/A [facility] Schistocytes [Presence] in B lood by Light microscopyOrdered By: Mary Colin on 10-20-2023 Schistocytes LM Ql (Bld) Slight [facility] Teardrop cell detectionOrder ed By: Mary Colin on 10-20-2023 Dacrocytes LM Ql (Bld) Slight [facility] Vitamin B12 ser/plasOrdered By: Mary Colin on 10-20-2023 Cobalamin (Vitamin B12) [Mass/Vol] 515 pg/mL 180-914 [facility] Activated partial thrombopla stin time (aPTT) in platelet poor plasma by coagulation aOrdered By: Wander Davidson on 10-19-2023 aPTT Coag (PPP) [Time] 39.2 s High 25.1-36.5 [facility] Comment on above: A hematocrit value g reater than 55% may lead to inaccurate results in coagulation testing. Patients having hematocrit values >55% require a special collection tube for coagulation studies. Please contact the laboratory at [phone] for redraw instructions. Alanine aminotransferase [En zymatic activity/volume] in Serum or PlasmaOrdered By: Wander Davidson on 10-19-2023 ALT [Catalytic activity/Vol] 39 U/L 7-52 [facility] Albumin [Mass/volume] in Ser um or Plasma by Bromocresol green (BCG) dye binding methoOrdered By: Wander Davidson on 10-19-2023 Albumin BCG dye [Mass/Vol] 3.1 g/dL Low 3.5-5.7 [facility] Alkaline phosphatase [Enzyma tic activity/volume] in Serum or PlasmaOrdered By: Wander Davidson on 10-19-2023 ALP [Catalytic activity/Vol] 68 U/L 34-104 [facility] Anisocytosis LM Ql (Bld)Orde red By: Wander Davidson on 10-19-2023 Anisocytosis Ql (Bld) Slight Fir [facility] Aspartate aminotransferase [ Enzymatic activity/volume] in Serum or PlasmaOrdered By: Wander Davidson on 10-19-2023 AST [Catalytic activity/Vol] 40 U/L High 13-39 [facility] Basophils Auto (Bld) [#/Vol] Ordered By: Wander Davidson on 10-19-2023 Basophils (Bld) [#/Vol] 0.0 10*3/uL 0.0-0.2 [facility] Basophils/100 WBC Auto (Bld) Ordered By: Wander Davidson on 10-19-2023 Basophils/100 WBC (Bld) 0.1 % . [facility] Bilirubin.total [Mass/volume ] in Serum or PlasmaOrdered By: Wander Davidson 10-19-2023 Bilirubin [Mass/Vol] 1.3 mg/dL High 0.3-1.0 [facility] Comment on above: Samples from patient s who have taken Naproxen have shown spurious elevation in Total Bilirubin levels. A metabolite of Naproxen, O-desmethylnaproxen, has been shown to interfere with the Femi-Batsheva method for measuring Total Bilirubin. Calcium [Mass/volume] in Ser um or PlasmaOrdered By: Wander Davidson on 10-19-2023 Calcium [Mass/Vol] 8.7 mg/dL 8.6-10.3 [facility] Carbon dioxide, total [Moles /volume] in Serum or PlasmaOrdered By: Wander Davidson on 10-19-2023 CO2 [Moles/Vol] 23.4 mmol/L 21.0-31.0 [facility] Chloride [Moles/volume] in S paulo or PlasmaOrdered By: Wander Davidson on 10-19-2023 Chloride [Moles/Vol] 90 mmol/L Low 98-107 [facility] Creatine kinase [Enzymatic a ctivity/volume] in Serum or PlasmaOrdered By: Wander Davidson on 10-19-2023 CK [Catalytic activity/Vol] 89 U/L 30-223 [facility] Creatinine [Mass/volume] in Serum or PlasmaOrdered By: Wander Davidson on 10-19-2023 Creatinine [Mass/Vol] 3.47 mg/dL High 0.70-1.30 [facility] Eosinophils Auto (Bld) [#/Vo l]Ordered By: Wander Davidson on 10-19-2023 Eosinophils (Bld) [#/Vol] 0.0 10*3/uL 0.0-0.45 [facility] Eosinophils/100 WBC Auto (Bl d)Ordered By: Wander Davidson on 10-19-2023 Eosinophils/100 WBC (Bld) 0.1 % . [facility] Erythrocyte distribution wid th Auto (RBC) [Ratio]Ordered By: Wander Davidson 10-19-2023 Erythrocyte distribution width (RBC) [Ratio] 16.4 % High 12.0-14.8 [facility] Ferritin [Mass/volume] in Se rum or PlasmaOrdered By: Wander Davidson 10-19-2023 Ferritin [Mass/Vol] 797.8 ng/mL High 23.9-336.2 [facility] Globulin Calc (S) [Mass/Vol] Ordered By: Wander Davidson 10-19-2023 Globulin (S) [Mass/Vol] 3.5 g/dL [facility] Glucose [Mass/volume] in Ser um or PlasmaOrdered By: Wander Davidson on 10-19-2023 Glucose [Mass/Vol] 202 mg/dL High 70-100 [facility] Comment on above: ADA recommended refe rence rangeRandom Glucose Reference Range is dependent on time and content of last meal. Glucose of more than 200 mg/dL in a nonstressed, ambulatory subject supports the diagnosis of Diabetes Mellitus. Hematocrit Auto (Bld) [Volum e fraction]Ordered By: Wander Davidson on 10-19-2023 Hematocrit (Bld) [Volume fraction] 21.3 % Low 38.8-50.0 [facility] Hemoglobin [Mass/volume] in BloodOrdered By: Wander Davidson on 10-19-2023 Hemoglobin (Bld) [Mass/Vol] 7.4 g/dL Low 13.0-17.0 [facility] INR in Platelet poor plasma by Coagulation assayOrdered By: Wander Davidson on 10-19-2023 INR Coag (PPP) [Relative time] 2.0 {INR} [facility] Comment on above: INR Therapeutic Rang e A) Pre- and Peroperative OAT started two weeks before surgery. NOT HIP SURGERY: 1.5 - 2.5 HIP SURGERY: 2 - 3B) Primary and secondary prevention of venous THROMBOSIS: 2 - 3C) Active venous thrombosis, pulmonary embolismand prevention of recurrent venous thrombosis: 2 - 3D) Prevention of arterial thromboembolismincluding patients with mechanical heart valves: 3 - 4.5 Iron [Mass/volume] in Serum or PlasmaOrdered By: Wander Davidson on 10-19-2023 Iron [Mass/Vol] 39 ug/dL Low 50-212 [facility] Iron binding capacity [Mass/ volume] in Serum or PlasmaOrdered By: Wander Davidson on 10-19-2023 Iron binding capacity [Mass/Vol] 225 ug/dL Low 255-450 [facility] Iron saturation [Mass Fracti on] in Serum or PlasmaOrdered By: Wander Davidson on 10-19-2023 Iron saturation [Mass fraction] 17.3 % Low 20-50 [facility] Leukocytes [#/volume] correc liborio for nucleated erythrocytes in Blood by Automated counOrdered By: Wander Davidson on 10-19-2023 WBC corrected for nucl RBC Auto (Bld) [#/Vol] 12.3 10*3/uL High 4.1-10.5 [facility] Lymphocytes Auto (Bld) [#/Vo l]Ordered By: Wander Davidson on 10-19-2023 Lymphocytes (Bld) [#/Vol] 0.3 10*3/uL Low 1.00-4.8 [facility] Lymphocytes/100 WBC Auto (Bl d)Ordered By: Wander Davidson on 10-19-2023 Lymphocytes/100 WBC (Bld) 2.5 % . [facility] MCH Auto (RBC) [Entitic mass ]Ordered By: Wander Davidson on 10-19-2023 MCH (RBC) [Entitic mass] 32.1 pg 27.5-35.2 [facility] MCHC Auto (RBC) [Mass/Vol]Or dered By: Wander Davidson on 10-19-2023 MCHC (RBC) [Mass/Vol] 34.8 g/dL 32.5-35.6 [facility] MCV Auto (RBC) [Entitic vol] Ordered By: Wanedr Davidson on 10-19-2023 MCV (RBC) [Entitic vol] 92.2 fL 83.5-101 [facility] Magnesium [Mass/volume] in S paulo or PlasmaOrdered By: Wander Davidson on 10-19-2023 Magnesium [Mass/Vol] 1.8 mg/dL Low 1.9-2.7 [facility] Monocyte distribution width [Entitic volume] in Blood by AutomatedOrdered By: Wander Davidson on 10-19-2023 Monocyte distribution width Auto (Bld) [Entitic vol] 26.69 % High 0.00-20.00 [facility] Comment on above: For adults in ED, MD W > 20.0 may be associated with a higher risk of sepsis during the first 12 hrs of hospital admissionThe predictive value of MDW for identifying sepsis in patients with hematological abnormalities has not been established Monocytes Auto (Bld) [#/Vol] Ordered By: Wander Davidson on 10-19-2023 Monocytes (Bld) [#/Vol] 0.4 10*3/uL 0.0-0.8 [facility] Monocytes/100 WBC Auto (Bld) Ordered By: Wander Davidson on 10-19-2023 Monocytes/100 WBC (Bld) 3.4 % . [facility] Natriuretic peptide B [Mass/ Vol]Ordered By: Wander Davidson on 10-19-2023 Natriuretic peptide B (Bld) [Mass/Vol] 315.0 pg/mL High 5-100 [facility] Neutrophils Auto (Bld) [#/Vo l]Ordered By: Wander Davidson on 10-19-2023 Neutrophils (Bld) [#/Vol] 11.6 10*3/uL High 1.8-7.7 [facility] Neutrophils/100 WBC Auto (Bl d)Ordered By: Wander Davidson on 10-19-2023 Neutrophils/100 WBC (Bld) 93.9 % . [facility] No Panel InformationOrdered By: Wander Davidson on 10-19-2023 Estimated GFR (CKD-EPI) 16.885 mL/Min [facility] Creatinine Clearance (Chem 20.08 [facility] Nucleated erythrocytes [Pres ence] in Blood by Automated countOrdered By: Wander Davidson on 10-19-2023 Nucleated RBC Auto Ql (Bld) 0.1 /100{WBC} 0-0.5 [facility] Platelet adequacy [Presence] in Blood by Light microscopyOrdered By: Wander Davidson on 10-19-2023 Platelets LM Ql (Bld) Normal Normal [facility] Platelet mean volume Auto (B ld) [Entitic vol]Ordered By: Wander Davidson on 10-19-2023 Platelet mean volume (Bld) [Entitic vol] 7.6 fL 6.6-10.1 [facility] Platelet morphology finding [Identifier] in BloodOrdered By: Wander Davidson on 10-19-2023 Platelet morphology finding Nom (Bld) Normal Normal [facility] Platelets Auto (Bld) [#/Vol] Ordered By: Wander Davidson on 10-19-2023 Platelets (Bld) [#/Vol] 210 10*3/uL 150-450 [facility] Potassium [Moles/volume] in Serum or PlasmaOrdered By: Wander Davidson on 10-19-2023 Potassium [Moles/Vol] 5.0 mmol/L 3.5-5.1 [facility] Protein [Mass/volume] in Ser um or PlasmaOrdered By: Wander Davidson on 10-19-2023 Protein [Mass/Vol] 6.6 g/dL 6.4-8.9 [facility] Prothrombin time (PT)Ordered By: Wander Davidson on 10-19-2023 PT Coag (PPP) [Time] 22.8 s High 9.0-12.9 [facility] Comment on above: A hematocrit value g reater than 55% may lead to inaccurate results in coagulation testing. Patients having hematocrit values >55% require a special collection tube for coagulation studies. Please contact the laboratory at [phone] for redraw instructions. RBC Auto (Bld) [#/Vol]Ordere d By: Wander Davidson on 10-19-2023 RBC (Bld) [#/Vol] 2.31 10*6/uL Low 3.90-5.60 [facility] RBC morphologyOrdered By: Marbin Davidson on 10-19-2023 RBC morphology finding Nom (Bld) N/A [facility] Serum or plasma albumin/glob ulin mass ratioOrdered By: Wander Davidson on 10-19-2023 Albumin/Globulin [Mass ratio] 0.9 {ratio} [facility] Serum or plasma anion gap de terminationOrdered By: Wander Davidson on 10-19-2023 Anion gap [Moles/Vol] 18.6 mmol/L High 6.0-15.0 [facility] Sodium [Moles/volume] in Ser um or PlasmaOrdered By: Wander Davidson on 10-19-2023 Sodium [Moles/Vol] 127 mmol/L Low 136-145 [facility] Transferrin [Mass/volume] in Serum or PlasmaOrdered By: Wander Davidson on 10-19-2023 Transferrin [Mass/Vol] 161 mg/dL Low 203-362 [facility] Troponin I.cardiac [Mass/vol ume] in Serum or Plasma by Detection limit <= 0.01 ng/Ordered By: Wander Davidson on 10-19-2023 Troponin I.cardiac DL <= 0.01 ng/mL [Mass/Vol] 28.7 pg/mL High 0.0-20.0 [facility] Urea nitrogen [Mass/volume] in Serum or PlasmaOrdered By: Wander Davidson on 10-19-2023 Urea nitrogen [Mass/Vol] 78 mg/dL High 7-25 [facility] WBC Auto (Bld) [#/Vol]Ordere d By: Wander Davidson on 10-19-2023 WBC (Bld) [#/Vol] 12.3 10*3/uL High 4.1-10.5 [facility] CT TAVR low contrast chest a bdomen pelvison 10-06-2023 1. 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 2. Severe calcifications of the aortic valve correlating with history of aortic stenosis. 3. Findings consistent with pulmonary interstitial and alveolar edema with small bilateral pleural effusions. Recommend follow-up chest CT in 1-3 months to evaluate for resolution after treatment. 4. 1.5 cm left thyroid nodule. Recommend thyroid ultrasound for further evaluation. 5. Prostatomegaly. Correlate with serum PSA and clinical exam as warranted. 6. Severe coronary artery calcifications. MACRO: Critical Finding: See findings. Notification was initiated on 10/06/2023 at 2:54 pm by Jarvis Vallecillo. (-YCF-) Instructions: Signed by: Jarvis Vallecillo 10/06/2023 2:54 PM Dictation workstation: [id number] [facility] Interpreted By: Jarvis Isaac, Vandana Reveles STUDY: CT TAVR LOW CONTRAST CHEST ABDOMEN PELVIS; 10/06/2023 1:00 pm INDICATION: Signs/Symptoms:aortic stenosis, dyspnea, fatigue, 02/26/23 Echo; aortic peak [place] 3.92, aortic mean 33. COMPARISON: None. ACCESSION NUMBER(S): [id number] ORDERING CLINICIAN: MEDARDO TSAI TECHNIQUE: Multi-detector CT technology was employed. Initial limited axial imaging of chest with prospective gating is performed. Following this,helical multi-detector acquisition of the chest with retrospective gating and minimal slice thickness was performed following the intravenous administration of 50 mL Omnipaque 350, subsequently, contrast enhanced non-gated CT examination of the abdomen and pelvis was obtained. For optimization of anatomic evaluation, multiplanar reconstruction, maximum intensity projections, and advanced 3-D off-line postprocessing were performed on a dedicated stand-alone workstation under the direct supervision of the interpreting physician. FINDINGS: Potential study limitations: None. Left subclavian approach single lead pacemaker terminates in the expected position near the right ventricle. THORACIC AORTA AND HEART: The thoracic aorta normal in course and caliber.Qkqx-zt-bmjkuyuk calcifications of the aorta and branch vessels. There is no evidence for acute aortic pathology, such as dissection, intramural hematoma, or contained rupture. The sinotubular junction is preserved. The arch vessel branching pattern is conventional. All of the arch branch vessels appear widely patent in their proximal portions. There is minimal to moderate calcific atherosclerotic disease throughout the right brachiocephalic artery and left subclavian. Normal atrioventricular and ventriculoarterial concordance. There is mild cardiomegaly with multichamber involvement. There are significant calcifications of aortic valve, in keeping with patients history of aortic stenosis. Normal coronary artery origins.Severe coronary artery calcifications. Please note,the study is not optimized for evaluation of coronary arteries. Mild mitral annular calcifications. There is no pericardial effusion seen. PULMONARY ARTERIES Main pulmonary artery borderline dilated at main pulmonary artery of 2.9 cm and right pulmonary arteries are dilated 23 cm, and left pulmonary artery dilated at 24 cm. Although the study is not tailored for evaluation of pulmonary arteries, there are no discrete filling defects within the pulmonary arteries or its opacified branches to suggest pulmonary embolism. SYSTEMIC AND PULMONARY VEINS Normal systemic venous and pulmonary venous return. The SVC and IVC are of normal caliber. Normal pulmonary venous anatomy. CHEST: Mildly enlarged, heterogeneous left thyroid gland with hypodense nodule measuring approximately 1.5 cm. There is a prominent subcarinal lymph node measuring up to 1.3 cm in size. Otherwise, there are numerous though not pathologically enlarged mediastinal lymph nodes. Esophagus appears within normal limits as seen. The trachea and central airways are patent. No endobronchial lesion is seen.There is mild diffuse peribronchial thickening. Tvpwl-odffaom-vnpz-left small pleural effusions. Interlobular septal thickening primarily in dependent portions with associated areas of consolidation and ground-glass opacity. Apical predominant mild emphysema. Mild bronchiectasis in the maejp-ssdueqk-gqoc-left lower lobes. ABDOMINAL AORTA: The abdominal aorta and its branches demonstrate scattered calcified and non calcified atherosclerotic plaques. The celiac, SMA, MARCO and bilateral renal arteries are normal in caliber. There is at least moderate stenosis of the left renal artery origin secondary to calcified plaque. ABDOMEN AND PELVIS: HEPATOBILIARY SYSTEM: The liver is normal in size. Subcentimeter hypodensity in the right hepatic lobe is incompletely characterized but most likely represents a simple cyst or biliary hamartoma. GALLBLADDER: Status post cholecystectomy. The intrahepatic and extrahepatic bile ducts are not dilated. PANCREAS: The pancreas is within normal limits.No suspicious focal lesions identified. SPLEEN: The spleen is normal in size.No suspicious focal lesions are seen. ADRENAL GLANDS: There is a 2.2 cm soft tissue nodule in the right adrenal gland with focal area of calcification. Left adrenal gland appears normal. KIDNEYS AND URETERS: The bilateral kidneys are normal in size and enhance symmetrically. No focal renal lesion is identified. There is no evidence of hydroureteronephrosis or nephroureterolithiasis. GI TRACT: The stomach is unremarkable. The small bowel is normal in caliber without evidence of focal wall thickening or obstruction. Status post right hemicolecto (more content not included)... [facility] Jarvis Vallecillo MD - 10/06/2023 Interpreted By: Jarvis Vallecillo and Omar Mahmoud STUDY: CT TAVR LOW CONTRAST CHEST ABDOMEN PELVIS; 10/06/2023 1:00 pm INDICATION: Signs/Symptoms:aortic stenosis, dyspnea, fatigue, 02/26/23 Echo; aortic peak [place] 3.92, aortic mean 33. COMPARISON: None. ACCESSION NUMBER(S): [id number] ORDERING CLINICIAN: MEDARDO TSAI TECHNIQUE: Multi-detector CT technology was employed. Initial limited axial imaging of chest with prospective gating is performed. Following this,helical multi-detector acquisition of the chest with retrospective gating and minimal slice thickness was performed following the intravenous administration of 50 mL Omnipaque 350, subsequently, contrast enhanced non-gated CT examination of the abdomen and pelvis was obtained. For optimization of anatomic evaluation, multiplanar reconstruction, maximum intensity projections, and advanced 3-D off-line postprocessing were performed on a dedicated stand-alone workstation under the direct supervision of the interpreting physician. FINDINGS: Potential study limitations: None. Left subclavian approach single lead pacemaker terminates in the expected position near the right ventricle. THORACIC AORTA AND HEART: The thoracic aorta normal in course and caliber.Uddc-cc-qrzrutre calcifications of the aorta and branch vessels. There is no evidence for acute aortic pathology, such as dissection, intramural hematoma, or contained rupture. The sinotubular junction is preserved. The arch vessel branching pattern is conventional. All of the arch branch vessels appear widely patent in their proximal portions. There is minimal to moderate calcific atherosclerotic disease throughout the right brachiocephalic artery and left subclavian. Normal atrioventricular and ventriculoarterial concordance. There is mild cardiomegaly with multichamber involvement. There are significant calcifications of aortic valve, in keeping with patients history of aortic stenosis. Normal coronary artery origins.Severe coronary artery calcifications. Please note,the study is not optimized for evaluation of coronary arteries. Mild mitral annular calcifications. There is no pericardial effusion seen. PULMONARY ARTERIES Main pulmonary artery borderline dilated at main pulmonary artery of 2.9 cm and right pulmonary arteries are dilated 23 cm, and left pulmonary artery dilated at 24 cm. Although the study is not tailored for evaluation of pulmonary arteries, there are no discrete filling defects within the pulmonary arteries or its opacified branches to suggest pulmonary embolism. SYSTEMIC AND PULMONARY VEINS Normal systemic venous and pulmonary venous return. The SVC and IVC are of normal caliber. Normal pulmonary venous anatomy. CHEST: Mildly enlarged, heterogeneous left thyroid gland with hypodense nodule measuring approximately 1.5 cm. There is a prominent subcarinal lymph node measuring up to 1.3 cm in size. Otherwise, there are numerous though not pathologically enlarged mediastinal lymph nodes. Esophagus appears within normal limits as seen. The trachea and central airways are patent. No endobronchial lesion is seen.There is mild diffuse peribronchial thickening. Vumsr-xtwewgd-zxaa-left small pleural effusions. Interlobular septal thickening primarily in dependent portions with associated areas of consolidation and ground-glass opacity. Apical predominant mild emphysema. Mild bronchiectasis in the awptu-jokgpyd-fgrw-left lower lobes. ABDOMINAL AORTA: The abdominal aorta and its branches demonstrate scattered calcified and non calcified atherosclerotic plaques. The celiac, SMA, MARCO and bilateral renal arteries are normal in caliber. There is at least moderate stenosis of the left renal artery origin secondary to calcified plaque. ABDOMEN AND PELVIS: HEPATOBILIARY SYSTEM: The liver is normal in size. Subcentimeter hypodensity in the right hepatic lobe is incompletely characterized but most likely represents a simple cyst or biliary hamartoma. GALLBLADDER: Status post cholecystectomy. The intrahepatic and extrahepatic bile ducts are not dilated. PANCREAS: The pancreas is within normal limits.No suspicious focal lesions identified. SPLEEN: The spleen is normal in size.No suspicious focal lesions are seen. ADRENAL GLANDS: There is a 2.2 cm soft tissue nodule in the right adrenal gland with focal area of calcification. Left adrenal gland appears normal. KIDNEYS AND URETERS: The bilateral kidneys are normal in size and enhance symmetrically. No focal renal lesion is identified. There is no evidence of hydroureteronephrosis or nephroureterolithiasis. GI TRACT: The stomach is unremarkable. The small bowel is normal in caliber without evidence of focal wall thickening or o (more content not included)... [facility] Work Phone: Radiology Study observation (narrative) [facility] Work Phone: CT TAVR low contrast chest a bdomen pelvisOrdered By: Jarvis Vallecillo on 10-06-2023 [facility] Work Phone: Albumin [Mass/volume] in Ser um or Plasma by Bromocresol green (BCG) dye binding methoOrdered By: Medardo Tsai on 09-22-2023 Albumin BCG dye [Mass/Vol] 3.5 g/dL 3.5-5.7 [facility] Calcium [Mass/volume] in Ser um or PlasmaOrdered By: Medardo Tsai on 09-22-2023 Calcium [Mass/Vol] 9.2 mg/dL 8.6-10.3 [facility] Carbon dioxide, total [Moles /volume] in Serum or PlasmaOrdered By: Medardo Tsai on 09-22-2023 CO2 [Moles/Vol] 31.8 mmol/L High 21.0-31.0 [facility] Chloride [Moles/volume] in S paulo or PlasmaOrdered By: Medardo Tsai on 09-22-2023 Chloride [Moles/Vol] 101 mmol/L 98-107 [facility] Creatinine [Mass/volume] in Serum or PlasmaOrdered By: Medardo Tsai on 09-22-2023 Creatinine [Mass/Vol] 1.46 mg/dL High 0.70-1.30 [facility] Glucose [Mass/volume] in Ser um or PlasmaOrdered By: Medardo Tsai on 09-22-2023 Glucose [Mass/Vol] 104 mg/dL High 70-100 [facility] Comment on above: ADA recommended refe rence rangeRandom Glucose Reference Range is dependent on time and content of last meal. Glucose of more than 200 mg/dL in a nonstressed, ambulatory subject supports the diagnosis of Diabetes Mellitus. No Panel InformationOrdered By: Medardo Tsai on 09-22-2023 Estimated GFR (CKD-EPI) 48.015 mL/Min [facility] Creatinine Clearance (Chem N/A [facility] Phosphate [Mass/volume] in S paulo or PlasmaOrdered By: Medardo Tsai on 09-22-2023 Phosphate [Mass/Vol] 4.0 mg/dL 2.5-4.5 [facility] Potassium [Moles/volume] in Serum or PlasmaOrdered By: Medardo Tsai on 09-22-2023 Potassium [Moles/Vol] 4.6 mmol/L 3.5-5.1 [facility] Serum or plasma anion gap de terminationOrdered By: Medardo Tsai on 09-22-2023 Anion gap [Moles/Vol] 12.8 mmol/L 6.0-15.0 [facility] Sodium [Moles/volume] in Ser um or PlasmaOrdered By: Medardo Tsai on 09-22-2023 Sodium [Moles/Vol] 141 mmol/L 136-145 [facility] Urea nitrogen [Mass/volume] in Serum or PlasmaOrdered By: Medardo Tsai on 09-22-2023 Urea nitrogen [Mass/Vol] 41 mg/dL High 7-25 [facility] Basophils Auto (Bld) [#/Vol] Ordered By: Misael Gonzales on 09-15-2023 Basophils (Bld) [#/Vol] 0.0 10*3/uL 0.0-0.2 [facility] Basophils/100 WBC Auto (Bld) Ordered By: Misael Gonzales on 09-15-2023 Basophils/100 WBC (Bld) 0.4 % . [facility] Calcium [Mass/volume] in Ser um or PlasmaOrdered By: Astrid Osman on 09-15-2023 Calcium [Mass/Vol] 8.1 mg/dL Low 8.6-10.3 [facility] Carbon dioxide, total [Moles /volume] in Serum or PlasmaOrdered By: Astrid Osman on 09-15-2023 CO2 [Moles/Vol] 30.4 mmol/L 21.0-31.0 [facility] Chloride [Moles/volume] in S paulo or PlasmaOrdered By: Astrid Osman on 09-15-2023 Chloride [Moles/Vol] 103 mmol/L 98-107 [facility] Creatinine [Mass/volume] in Serum or PlasmaOrdered By: Astrid Osman on 09-15-2023 Creatinine [Mass/Vol] 1.01 mg/dL 0.70-1.30 [facility] Eosinophils Auto (Bld) [#/Vo l]Ordered By: Misael Gonzales on 09-15-2023 Eosinophils (Bld) [#/Vol] 0.1 10*3/uL 0.0-0.45 [facility] Eosinophils/100 WBC Auto (Bl d)Ordered By: Misael Gonzales on 09-15-2023 Eosinophils/100 WBC (Bld) 1.8 % . [facility] Erythrocyte distribution wid th Auto (RBC) [Ratio]Ordered By: Misael Gonzales on 09-15-2023 Erythrocyte distribution width (RBC) [Ratio] 17.7 % High 12.0-14.8 [facility] Glucose Glucometer (BldC) [M ass/Vol]Ordered By: Misael Gonzales on 09-15-2023 Glucose [Mass/Vol] 208 mg/dL [facility] Comment on above: Random Glucose Refer ence Range is dependent on time and content of last meal. Glucose of more than 200 mg/dL in a nonstressed, ambulatory subject supports the diagnosis of Diabetes Mellitus. Glucose [Mass/volume] in Ser um or PlasmaOrdered By: Astrid Osman on 09-15-2023 Glucose [Mass/Vol] 142 mg/dL High 70-100 [facility] Comment on above: ADA recommended refe rence rangeRandom Glucose Reference Range is dependent on time and content of last meal. Glucose of more than 200 mg/dL in a nonstressed, ambulatory subject supports the diagnosis of Diabetes Mellitus. Hematocrit Auto (Bld) [Volum e fraction]Ordered By: Misael Gonzales on 09-15-2023 Hematocrit (Bld) [Volume fraction] 30.8 % Low 38.8-50.0 [facility] Hemoglobin [Mass/volume] in BloodOrdered By: Misael Gonzales on 09-15-2023 Hemoglobin (Bld) [Mass/Vol] 10.5 g/dL Low 13.0-17.0 [facility] Leukocytes [#/volume] correc liborio for nucleated erythrocytes in Blood by Automated counOrdered By: Misael Gonzales on 09-15-2023 WBC corrected for nucl RBC Auto (Bld) [#/Vol] 6.6 10*3/uL 4.1-10.5 [facility] Lymphocytes Auto (Bld) [#/Vo l]Ordered By: Misael Gonzales on 09-15-2023 Lymphocytes (Bld) [#/Vol] 0.8 10*3/uL Low 1.00-4.8 [facility] Lymphocytes/100 WBC Auto (Bl d)Ordered By: Misael Gonzales on 09-15-2023 Lymphocytes/100 WBC (Bld) 12.1 % . [facility] MCH Auto (RBC) [Entitic mass ]Ordered By: Misael Gonzales on 09-15-2023 MCH (RBC) [Entitic mass] 32.0 pg 27.5-35.2 [facility] MCHC Auto (RBC) [Mass/Vol]Or dered By: Misael Gonzales on 09-15-2023 MCHC (RBC) [Mass/Vol] 34.1 g/dL 32.5-35.6 [facility] MCV Auto (RBC) [Entitic vol] Ordered By: Misael Gonzales on 09-15-2023 MCV (RBC) [Entitic vol] 93.8 fL 83.5-101 [facility] Monocytes Auto (Bld) [#/Vol] Ordered By: Misael Gonzales on 09-15-2023 Monocytes (Bld) [#/Vol] 0.7 10*3/uL 0.0-0.8 [facility] Monocytes/100 WBC Auto (Bld) Ordered By: Misael Gonzales on 09-15-2023 Monocytes/100 WBC (Bld) 10.2 % . [facility] Neutrophils Auto (Bld) [#/Vo l]Ordered By: Misael Gonzales on 09-15-2023 Neutrophils (Bld) [#/Vol] 5.0 10*3/uL 1.8-7.7 [facility] Neutrophils/100 WBC Auto (Bl d)Ordered By: Misael Gonzales on 09-15-2023 Neutrophils/100 WBC (Bld) 75.5 % . [facility] No Panel InformationOrdered By: Astrid Osman on 09-15-2023 Estimated GFR (CKD-EPI) > 60.0 mL/Min [facility] Creatinine Clearance (Chem 69.89 [facility] Nucleated erythrocytes [Pres ence] in Blood by Automated countOrdered By: Misael Gonzales on 09-15-2023 Nucleated RBC Auto Ql (Bld) 0.1 /100{WBC} 0-0.5 [facility] Platelet mean volume Auto (B ld) [Entitic vol]Ordered By: Misael Gonzales on 09-15-2023 Platelet mean volume (Bld) [Entitic vol] 8.2 fL 6.6-10.1 [facility] Platelets Auto (Bld) [#/Vol] Ordered By: Misael Gonzales on 09-15-2023 Platelets (Bld) [#/Vol] 163 10*3/uL 150-450 [facility] Potassium [Moles/volume] in Serum or PlasmaOrdered By: Astrid Osman on 09-15-2023 Potassium [Moles/Vol] 3.8 mmol/L 3.5-5.1 [facility] RBC Auto (Bld) [#/Vol]Ordere d By: Misael Gonzales on 09-15-2023 RBC (Bld) [#/Vol] 3.28 10*6/uL Low 3.90-5.60 [facility] Serum or plasma anion gap de terminationOrdered By: Astrid Osman on 09-15-2023 Anion gap [Moles/Vol] 8.4 mmol/L 6.0-15.0 [facility] Sodium [Moles/volume] in Ser um or PlasmaOrdered By: Astrid Osman on 09-15-2023 Sodium [Moles/Vol] 138 mmol/L 136-145 [facility] Urea nitrogen [Mass/volume] in Serum or PlasmaOrdered By: Astrid Osman on 09-15-2023 Urea nitrogen [Mass/Vol] 21 mg/dL 7-25 [facility] WBC Auto (Bld) [#/Vol]Ordere d By: Misael Gonzales on 09-15-2023 WBC (Bld) [#/Vol] 6.6 10*3/uL 4.1-10.5 [facility] Activated partial thrombopla stin time (aPTT) in platelet poor plasma by coagulation aOrdered By: Joby Pinedo on 09-14-2023 aPTT Coag (PPP) [Time] 39.9 s High 25.1-36.5 [facility] Comment on above: A hematocrit value g reater than 55% may lead to inaccurate results in coagulation testing. Patients having hematocrit values >55% require a special collection tube for coagulation studies. Please contact the laboratory at [phone] for redraw instructions. INR in Platelet poor plasma by Coagulation assayOrdered By: Joby Pinedo on 09-14-2023 INR Coag (PPP) [Relative time] 1.1 {INR} [facility] Comment on above: INR Therapeutic Rang e A) Pre- and Peroperative OAT started two weeks before surgery. NOT HIP SURGERY: 1.5 - 2.5 HIP SURGERY: 2 - 3B) Primary and secondary prevention of venous THROMBOSIS: 2 - 3C) Active venous thrombosis, pulmonary embolismand prevention of recurrent venous thrombosis: 2 - 3D) Prevention of arterial thromboembolismincluding patients with mechanical heart valves: 3 - 4.5 Magnesium [Mass/volume] in S paulo or PlasmaOrdered By: Astrid Osman on 09-14-2023 Magnesium [Mass/Vol] 1.6 mg/dL Low 1.9-2.7 [facility] Prothrombin time (PT)Ordered By: Joby Pinedo on 09-14-2023 PT Coag (PPP) [Time] 13.2 s High 9.0-12.9 [facility] Comment on above: A hematocrit value g reater than 55% may lead to inaccurate results in coagulation testing. Patients having hematocrit values >55% require a special collection tube for coagulation studies. Please contact the laboratory at [phone] for redraw instructions. Triiodothyronine (T3) [Mass/ volume] in Serum or PlasmaOrdered By: Misael Gonzales on 09-14-2023 T3 [Mass/Vol] 0.58 ng/mL Low 0.87-1.78 [facility] Alanine aminotransferase [En zymatic activity/volume] in Serum or PlasmaOrdered By: Nash Harris on 09-13-2023 ALT [Catalytic activity/Vol] 12 U/L 7-52 [facility] Albumin [Mass/volume] in Ser um or Plasma by Bromocresol green (BCG) dye binding methoOrdered By: Nash Harris on 09-13-2023 Albumin BCG dye [Mass/Vol] 3.2 g/dL Low 3.5-5.7 [facility] Alkaline phosphatase [Enzyma tic activity/volume] in Serum or PlasmaOrdered By: Nash Harris on 09-13-2023 ALP [Catalytic activity/Vol] 47 U/L 34-104 [facility] Aspartate aminotransferase [ Enzymatic activity/volume] in Serum or PlasmaOrdered By: Nash Harris on 09-13-2023 AST [Catalytic activity/Vol] 17 U/L 13-39 [facility] Bilirubin.total [Mass/volume ] in Serum or PlasmaOrdered By: Nash Harris on 09-13-2023 Bilirubin [Mass/Vol] 1.5 mg/dL High 0.3-1.0 [facility] Comment on above: Samples from patient s who have taken Naproxen have shown spurious elevation in Total Bilirubin levels. A metabolite of Naproxen, O-desmethylnaproxen, has been shown to interfere with the Femi-Batsheva method for measuring Total Bilirubin. Globulin Calc (S) [Mass/Vol] Ordered By: Nash Harris on 09-13-2023 Globulin (S) [Mass/Vol] 2.2 g/dL [facility] - Chemistry and C hemistry - challengeOrdered By: Misael Gonzales on 09-13-2023 CO2 [Moles/Vol] 26.7 mmol/L 23.0-27.0 [facility] HCO3 (Bld) [Moles/Vol] 25.6 mmol/L 23.0-29.0 [facility] No Panel InformationOrdered By: Misael Gonzales on 09-13-2023 Bedside Glucose Comment Glu2: cleaned meter [facility] Arterial Blood Base Excess 2.0 mmol/L -3.0-3.0 [facility] Arterial Blood Oxygen Content 6.3 mmol/L Low 6.6-9.7 [facility] Arterial Blood Oxygen Saturation 87.9 % Low 95.0-100.0 [facility] Arterial Blood Partial Pressure CO2 36.0 mm[Hg] 35.0-45.0 [facility] Arterial Blood Partial Pressure O2 52.6 mm[Hg] Low 80.0-100.0 [facility] Arterial Blood pH 7.47 High 7.35-7.45 [facility] Blood Gas Critical Value See comment [facility] Comment on above: Critical Value alarcon d on: 09/13/2023 at 13:15 Blood Gas Liter Flow 3 L/min [facility] Blood Gas Sample Site Right brachial [facility] FiO2 34 % [facility] Oxygen Delivery Device Nasal cannula [facility] Protein [Mass/volume] in Ser um or PlasmaOrdered By: Nash Harris on 09-13-2023 Protein [Mass/Vol] 5.4 g/dL Low 6.4-8.9 [facility] Serum or plasma albumin/glob ulin mass ratioOrdered By: Nash Harris on 09-13-2023 Albumin/Globulin [Mass ratio] 1.5 {ratio} [facility] Thyroxine (T4) free [Mass/vo lume] in Serum or PlasmaOrdered By: Misael Gonzales on 09-13-2023 Free T4 [Mass/Vol] 1.41 ng/dL High 0.61-1.12 [facility] Alanine aminotransferase [En zymatic activity/volume] in Serum or PlasmaOrdered By: Manny Perez on 09-09-2023 ALT [Catalytic activity/Vol] 16 U/L 7-52 [facility] Albumin [Mass/volume] in Ser um or Plasma by Bromocresol green (BCG) dye binding methoOrdered By: Manny Perez on 09-09-2023 Albumin BCG dye [Mass/Vol] 3.5 g/dL 3.5-5.7 [facility] Alkaline phosphatase [Enzyma tic activity/volume] in Serum or PlasmaOrdered By: Manny Perez on 09-09-2023 ALP [Catalytic activity/Vol] 55 U/L 34-104 [facility] Aspartate aminotransferase [ Enzymatic activity/volume] in Serum or PlasmaOrdered By: Manny Sanfordland on 09-09-2023 AST [Catalytic activity/Vol] 21 U/L 13-39 [facility] Basophils Auto (Bld) [#/Vol] Ordered By: Manny Sanfordland on 09-09-2023 Basophils (Bld) [#/Vol] 0.1 10*3/uL 0.0-0.2 [facility] Basophils/100 WBC Auto (Bld) Ordered By: Manny Sanfordland on 09-09-2023 Basophils/100 WBC (Bld) 0.5 % . [facility] Bilirubin.total [Mass/volume ] in Serum or PlasmaOrdered By: Manny Sanfordland on 09-09-2023 Bilirubin [Mass/Vol] 2.2 mg/dL 0.3-1.0 [facility] Comment on above: Samples from patient s who have taken Naproxen have shown spurious elevation in Total Bilirubin levels. A metabolite of Naproxen, O-desmethylnaproxen, has been shown to interfere with the Jendrjocelyneik-Grodebra method for measuring Total Bilirubin. COVID CepheidOrdered By: Ghanshyam Perez on 09-09-2023 SARS-CoV-2 (COVID-19) Ab IA Ql Negative Negative [facility] Comment on above: This is a duplicate Cepheid Xpert Xpress CoV-2/Flu/RSV Plus RNA by RT-PCR result to be used for statistical tracking purpose only. SARS-CoV-2 (COVID-19) RNA KRISTIE+probe Ql (Unsp spec) [facility] Calcium [Mass/volume] in Ser um or PlasmaOrdered By: Manny Sanfordland 09-09-2023 Calcium [Mass/Vol] 8.8 mg/dL 8.6-10.3 [facility] Carbon dioxide, total [Moles /volume] in Serum or PlasmaOrdered By: Manny Sanfordland on 09-09-2023 CO2 [Moles/Vol] 24.3 mmol/L 21.0-31.0 [facility] Chloride [Moles/volume] in S paulo or PlasmaOrdered By: Manny Sanfordland 09-09-2023 Chloride [Moles/Vol] 102 mmol/L 98-107 [facility] Creatine kinase [Enzymatic a ctivity/volume] in Serum or PlasmaOrdered By: Manny Sanfordland 09-09-2023 CK [Catalytic activity/Vol] 40 U/L 30-223 [facility] Creatinine [Mass/volume] in Serum or PlasmaOrdered By: Manny Sanfordland 09-09-2023 Creatinine [Mass/Vol] 1.21 mg/dL 0.70-1.30 [facility] Eosinophils Auto (Bld) [#/Vo l]Ordered By: [facility] 09-09-2023 Eosinophils (Bld) [#/Vol] 0.1 10*3/uL 0.0-0.45 [facility] Eosinophils/100 WBC Auto (Bl d)Ordered By: [facility] 09-09-2023 Eosinophils/100 WBC (Bld) 0.5 % . [facility] Erythrocyte distribution wid th Auto (RBC) [Ratio]Ordered By: Manny Perez 09-09-2023 Erythrocyte distribution width (RBC) [Ratio] 18.4 % 12.0-14.8 [facility] Globulin Calc (S) [Mass/Vol] Ordered By: [facility] 09-09-2023 Globulin (S) [Mass/Vol] 2.8 g/dL [facility] Glucose [Mass/volume] in Ser um or PlasmaOrdered By: Manny Sanfordland 09-09-2023 Glucose [Mass/Vol] 239 mg/dL 70-100 [facility] Comment on above: ADA recommended refe rence rangeRandom Glucose Reference Range is dependent on time and content of last meal. Glucose of more than 200 mg/dL in a nonstressed, ambulatory subject supports the diagnosis of Diabetes Mellitus. Hematocrit Auto (Bld) [Volum e fraction]Ordered By: Manny Perez on 09-09-2023 Hematocrit (Bld) [Volume fraction] 36.7 % 38.8-50.0 [facility] Hemoglobin [Mass/volume] in BloodOrdered By: Manny Perez on 09-09-2023 Hemoglobin (Bld) [Mass/Vol] 12.6 g/dL 13.0-17.0 [facility] Leukocytes [#/volume] correc liborio for nucleated erythrocytes in Blood by Automated counOrdered By: Manny Perez on 09-09-2023 WBC corrected for nucl RBC Auto (Bld) [#/Vol] 11.0 10*3/uL 4.1-10.5 [facility] Lymphocytes Auto (Bld) [#/Vo l]Ordered By: Manny Perez on 09-09-2023 Lymphocytes (Bld) [#/Vol] 0.4 10*3/uL 1.00-4.8 [facility] Lymphocytes/100 WBC Auto (Bl d)Ordered By: Manny Perez on 09-09-2023 Lymphocytes/100 WBC (Bld) 4.0 % . [facility] MCH Auto (RBC) [Entitic mass ]Ordered By: Manny Perez 09-09-2023 MCH (RBC) [Entitic mass] 31.9 pg 27.5-35.2 [facility] MCHC Auto (RBC) [Mass/Vol]Or dered By: Manny Perez on 09-09-2023 MCHC (RBC) [Mass/Vol] 34.3 g/dL 32.5-35.6 [facility] MCV Auto (RBC) [Entitic vol] Ordered By: Manny Perez on 09-09-2023 MCV (RBC) [Entitic vol] 92.8 fL 83.5-101 [facility] Monocyte distribution width [Entitic volume] in Blood by AutomatedOrdered By: Manny Perez 09-09-2023 Monocyte distribution width Auto (Bld) [Entitic vol] 20.88 % High 0.00-20.00 [facility] Comment on above: For adults in ED, MD W > 20.0 may be associated with a higher risk of sepsis during the first 12 hrs of hospital admission Monocytes Auto (Bld) [#/Vol] Ordered By: Manny Perez on 09-09-2023 Monocytes (Bld) [#/Vol] 0.6 10*3/uL 0.0-0.8 [facility] Monocytes/100 WBC Auto (Bld) Ordered By: Manny Perez on 09-09-2023 Monocytes/100 WBC (Bld) 5.7 % . [facility] Natriuretic peptide B [Mass/ Vol]Ordered By: Manny Perez on 09-09-2023 Natriuretic peptide B (Bld) [Mass/Vol] 517.0 pg/mL High 5-100 [facility] Neutrophils Auto (Bld) [#/Vo l]Ordered By: Manny Sanfordland on 09-09-2023 Neutrophils (Bld) [#/Vol] 9.8 10*3/uL 1.8-7.7 [facility] Neutrophils/100 WBC Auto (Bl d)Ordered By: Manny Sanfordland on 09-09-2023 Neutrophils/100 WBC (Bld) 89.3 % . [facility] No Panel InformationOrdered By: Manny Perez on 09-09-2023 Estimated GFR (CKD-EPI) > 60.0 mL/Min [facility] Creatinine Clearance (Chem 57.51 [facility] Nucleated erythrocytes [Pres ence] in Blood by Automated countOrdered By: Manny Perez on 09-09-2023 Nucleated RBC Auto Ql (Bld) 0.0 /100{WBC} 0-0.5 [facility] Platelet mean volume Auto (B ld) [Entitic vol]Ordered By: Manny Perez on 09-09-2023 Platelet mean volume (Bld) [Entitic vol] 7.8 fL 6.6-10.1 [facility] Platelets Auto (Bld) [#/Vol] Ordered By: Manny Perez 09-09-2023 Platelets (Bld) [#/Vol] 279 10*3/uL 150-450 [facility] Potassium [Moles/volume] in Serum or PlasmaOrdered By: Manny Perez on 09-09-2023 Potassium [Moles/Vol] 3.9 mmol/L 3.5-5.1 [facility] Protein [Mass/volume] in Ser um or PlasmaOrdered By: Manny Perez on 09-09-2023 Protein [Mass/Vol] 6.3 g/dL 6.4-8.9 [facility] RBC Auto (Bld) [#/Vol]Ordere d By: Manny Perez on 09-09-2023 RBC (Bld) [#/Vol] 3.95 10*6/uL 3.90-5.60 [facility] Serum or plasma albumin/glob ulin mass ratioOrdered By: Manny Perez on 09-09-2023 Albumin/Globulin [Mass ratio] 1.3 {ratio} [facility] Serum or plasma anion gap de terminationOrdered By: Manny Perez 09-09-2023 Anion gap [Moles/Vol] 15.6 mmol/L 6.0-15.0 [facility] Sodium [Moles/volume] in Ser um or PlasmaOrdered By: Manny Perez 09-09-2023 Sodium [Moles/Vol] 138 mmol/L 136-145 [facility] Thyrotropin [Units/volume] i n Serum or PlasmaOrdered By: Astrid Osman on 09-09-2023 TSH Qn 5.51 m[IU]/L High 0.45-5.33 [facility] Troponin I.cardiac [Mass/vol ume] in Serum or Plasma by Detection limit <= 0.01 ng/Ordered By: Astrid Osman on 09-09-2023 Troponin I.cardiac DL <= 0.01 ng/mL [Mass/Vol] 22.5 pg/mL High 0.0-20.0 [facility] Troponin I.cardiac [Mass/vol ume] in Serum or Plasma by Detection limit <= 0.01 ng/Ordered By: Manny Perez on 09-09-2023 Troponin I.cardiac DL <= 0.01 ng/mL [Mass/Vol] 15.9 pg/mL 0.0-20.0 [facility] Urea nitrogen [Mass/volume] in Serum or PlasmaOrdered By: Manny Perez on 09-09-2023 Urea nitrogen [Mass/Vol] 27 mg/dL 7-25 [facility] WBC Auto (Bld) [#/Vol]Ordere d By: Manny Perez on 09-09-2023 WBC (Bld) [#/Vol] 11.0 10*3/uL 4.1-10.5 [facility] Calcium [Mass/volume] in Ser um or PlasmaOrdered By: Joby Pinedo on 07-07-2023 Calcium [Mass/Vol] 8.5 mg/dL Low 8.6-10.3 [facility] Carbon dioxide, total [Moles /volume] in Serum or PlasmaOrdered By: Joby Pinedo on 07-07-2023 CO2 [Moles/Vol] 28.2 mmol/L 21.0-31.0 [facility] Chloride [Moles/volume] in S paulo or PlasmaOrdered By: Joby Pinedo on 07-07-2023 Chloride [Moles/Vol] 103 mmol/L 98-107 [facility] Creatinine [Mass/volume] in Serum or PlasmaOrdered By: Joby Pinedo on 07-07-2023 Creatinine [Mass/Vol] 0.89 mg/dL 0.70-1.30 [facility] Glucose [Mass/volume] in Ser um or PlasmaOrdered By: Joby Pinedo on 07-07-2023 Glucose [Mass/Vol] 149 mg/dL High 70-100 [facility] Comment on above: ADA recommended refe rence rangeRandom Glucose Reference Range is dependent on time and content of last meal. Glucose of more than 200 mg/dL in a nonstressed, ambulatory subject supports the diagnosis of Diabetes Mellitus. No Panel InformationOrdered By: Joby Pinedo on 07-07-2023 Estimated GFR (CKD-EPI) > 60.0 mL/Min [facility] Creatinine Clearance (Chem N/A [facility] Potassium [Moles/volume] in Serum or PlasmaOrdered By: Joby Pinedo on 07-07-2023 Potassium [Moles/Vol] 3.9 mmol/L 3.5-5.1 [facility] Serum or plasma anion gap de terminationOrdered By: Joby Pinedo on 07-07-2023 Anion gap [Moles/Vol] 11.7 mmol/L 6.0-15.0 [facility] Sodium [Moles/volume] in Ser um or PlasmaOrdered By: Joby Pinedo on 07-07-2023 Sodium [Moles/Vol] 139 mmol/L 136-145 [facility] Urea nitrogen [Mass/volume] in Serum or PlasmaOrdered By: Joby Pinedo on 07-07-2023 Urea nitrogen [Mass/Vol] 16 mg/dL 7-25 [facility] NUCLEAR STRESS TESTon 2023 NUCLEAR STRESS TEST Interpreted By: Gabe Love and Beal Gina STUDY: MYOCARDIAL PERFUSION STRESS TEST WITH LEXISCAN Performing facility: [facility], [address] [place] [address], [address], [address] Provider: Joby Pinedo MD PCP: Dr. Martin RAYMUNDO Supervising provider: Dian Reyna DO, [facility] INDICATION: SOB HISTORY: Gender: M; Age: 82 y/o ; Height: HT 180.3 cm cm; Weight: WT 104.917 kg kg. High Cholesterol; SOB; HTN; Arrhythmias; AFib, Bradycardia RA, HF, Edema PPM Abnormal EKG; Quit smoking. COMPARISON: No comparison. ACCESSION NUMBER(S): [id number] ORDERING CLINICIAN: JOBY PINEDO TECHNIQUE: ONE DAY protocol. Stress injection: Date:07/01/23, 33.1 mCi of Myoview IV 20 seconds after rapid injection of Lexiscan. Rest injection: Date: 07/01/23, 11.3 mCi of Myoview IV at rest. The patient had a rapid injection of 0.4 mg of Lexiscan IV over 10 seconds. Imaging was performed by gated tomographic technique. Reason for Lexiscan: PPM, RA, SOB STRESS TEST DATA: Resting heart rate was 71 BPM. Resting blood pressure was 138/78 mmHg. Peak blood pressure was 138/68 mmHg. Peak heart rate was 73 BPM. TEST TERMINATED DUE TO: Protocol completed FINDINGS: STRESS TEST RESULTS: Resting electrocardiogram revealed atrial fibrillation with left bundle branch block. There were no significant ischemic ECG changes or dysrhythmias. The patient did not have chest pains/symptoms during procedure. There was a normal recovery phase. IMAGING RESULTS: Image quality was good. Rest and stress tomographic images were reviewed and revealed normal perfusion without evidence of ischemia, myocardial infarction, or left ventricular dilatation with stress. Overall left ventricular systolic function appeared to be normal without regional wall motion abnormalities. Ejection fraction was 51%. TID is 1.01 and is normal. There was no evidence of attenuation artifact. IMPRESSION: Normal Lexiscan Myoview cardiac perfusion stress test. No evidence of ischemia or myocardial infarction by perfusion imaging. Normal left ventricular systolic function, ejection fraction 51%. No previous studies are available for comparison. Signed by: Gabe Bowens 07/03/2023 5:07 PM Dictation workstation: [id number] [facility] Activated partial thrombopla stin time (aPTT) in platelet poor plasma by coagulation aOrdered By: Arnulfo Carter on 03-12-2023 aPTT Coag (PPP) [Time] 37.9 s 25.1-36.5 [facility] Comment on above: A hematocrit value g reater than 55% may lead to inaccurate results in coagulation testing. Patients having hematocrit values >55% require a special collection tube for coagulation studies. Please contact the laboratory at [phone] for redraw instructions. Basophils Auto (Bld) [#/Vol] Ordered By: Arnulfo Carter on 03-12-2023 Basophils (Bld) [#/Vol] 0.0 10*3/uL 0.0-0.2 [facility] Basophils/100 WBC Auto (Bld) Ordered By: Arnulfo Carter on 03-12-2023 Basophils/100 WBC (Bld) 1.1 % . [facility] Eosinophils Auto (Bld) [#/Vo l]Ordered By: Arnulfo Carter on 03-12-2023 Eosinophils (Bld) [#/Vol] 0.1 10*3/uL 0.0-0.45 [facility] Eosinophils/100 WBC Auto (Bl d)Ordered By: Arnulfo Carter on 03-12-2023 Eosinophils/100 WBC (Bld) 2.4 % . [facility] Erythrocyte distribution wid th Auto (RBC) [Ratio]Ordered By: Arnulfo Carter on 03-12-2023 Erythrocyte distribution width (RBC) [Ratio] 16.4 % 12.0-14.8 [facility] Glucose Glucometer (BldC) [M ass/Vol]Ordered By: Arnulfo Carter on 03-12-2023 Glucose [Mass/Vol] 126 mg/dL [facility] Comment on above: Random Glucose Refer ence Range is dependent on time and content of last meal. Glucose of more than 200 mg/dL in a nonstressed, ambulatory subject supports the diagnosis of Diabetes Mellitus. Hematocrit Auto (Bld) [Volum e fraction]Ordered By: Arnulfo Carter on 03-12-2023 Hematocrit (Bld) [Volume fraction] 34.2 % 38.8-50.0 [facility] Hemoglobin [Mass/volume] in BloodOrdered By: Arnulfo Carter on 03-12-2023 Hemoglobin (Bld) [Mass/Vol] 11.7 g/dL 13.0-17.0 [facility] INR in Platelet poor plasma by Coagulation assayOrdered By: Arnulfo Carter on 03-12-2023 INR Coag (PPP) [Relative time] 1.1 {INR} [facility] Comment on above: INR Therapeutic Rang e A) Pre- and Peroperative OAT started two weeks before surgery. NOT HIP SURGERY: 1.5 - 2.5 HIP SURGERY: 2 - 3B) Primary and secondary prevention of venous THROMBOSIS: 2 - 3C) Active venous thrombosis, pulmonary embolismand prevention of recurrent venous thrombosis: 2 - 3D) Prevention of arterial thromboembolismincluding patients with mechanical heart valves: 3 - 4.5 Leukocytes [#/volume] correc liborio for nucleated erythrocytes in Blood by Automated counOrdered By: Arnulfo Carter on 03-12-2023 WBC corrected for nucl RBC Auto (Bld) [#/Vol] 4.6 10*3/uL 4.1-10.5 [facility] Lymphocytes Auto (Bld) [#/Vo l]Ordered By: Arnulfo Carter on 03-12-2023 Lymphocytes (Bld) [#/Vol] 1.0 10*3/uL 1.00-4.8 [facility] Lymphocytes/100 WBC Auto (Bl d)Ordered By: Arnulfo Carter on 03-12-2023 Lymphocytes/100 WBC (Bld) 21.4 % . [facility] MCH Auto (RBC) [Entitic mass ]Ordered By: Arnulfo Carter on 03-12-2023 MCH (RBC) [Entitic mass] 32.7 pg 27.5-35.2 [facility] MCHC Auto (RBC) [Mass/Vol]Or dered By: Arnulfo Carter on 03-12-2023 MCHC (RBC) [Mass/Vol] 34.1 g/dL 32.5-35.6 [facility] MCV Auto (RBC) [Entitic vol] Ordered By: Arnulfo Carter on 03-12-2023 MCV (RBC) [Entitic vol] 95.8 fL 83.5-101 [facility] Monocytes Auto (Bld) [#/Vol] Ordered By: Arnulfo Carter on 03-12-2023 Monocytes (Bld) [#/Vol] 0.4 10*3/uL 0.0-0.8 [facility] Monocytes/100 WBC Auto (Bld) Ordered By: Arnulfo Carter on 03-12-2023 Monocytes/100 WBC (Bld) 7.6 % . [facility] Neutrophils Auto (Bld) [#/Vo l]Ordered By: Arnulfo Carter on 03-12-2023 Neutrophils (Bld) [#/Vol] 3.1 10*3/uL 1.8-7.7 [facility] Neutrophils/100 WBC Auto (Bl d)Ordered By: Arnulfo Carter on 03-12-2023 Neutrophils/100 WBC (Bld) 67.5 % . [facility] No Panel InformationOrdered By: Arnulfo Carter on 03-12-2023 Bedside Glucose Comment Glu2: cleaned meter [facility] Nucleated erythrocytes [Pres ence] in Blood by Automated countOrdered By: Arnulfo Carter on 03-12-2023 Nucleated RBC Auto Ql (Bld) 0.0 /100{WBC} 0-0.5 [facility] Platelet mean volume Auto (B ld) [Entitic vol]Ordered By: Arnulfo Carter on 03-12-2023 Platelet mean volume (Bld) [Entitic vol] 9.1 fL 6.6-10.1 [facility] Platelets Auto (Bld) [#/Vol] Ordered By: Arnulfo Carter on 03-12-2023 Platelets (Bld) [#/Vol] 179 10*3/uL 150-450 [facility] Prothrombin time (PT)Ordered By: Arnulfo Carter on 03-12-2023 PT Coag (PPP) [Time] 13.5 s 9.0-12.9 [facility] Comment on above: A hematocrit value g reater than 55% may lead to inaccurate results in coagulation testing. Patients having hematocrit values >55% require a special collection tube for coagulation studies. Please contact the laboratory at [phone] for redraw instructions. RBC Auto (Bld) [#/Vol]Ordere d By: Arnulfo Carter on 03-12-2023 RBC (Bld) [#/Vol] 3.57 10*6/uL 3.90-5.60 [facility] WBC Auto (Bld) [#/Vol]Ordere d By: Arnulfo Carter on 03-12-2023 WBC (Bld) [#/Vol] 4.6 10*3/uL 4.1-10.5 [facility] Basophils Auto (Bld) [#/Vol] Ordered By: Arnulfo Carter on 03-10-2023 Basophils (Bld) [#/Vol] 0.1 10*3/uL 0.0-0.2 [facility] Basophils/100 WBC Auto (Bld) Ordered By: Arnulfo Carter on 03-10-2023 Basophils/100 WBC (Bld) 1.0 % . [facility] Calcium [Mass/volume] in Ser um or PlasmaOrdered By: Arnulfo Carter on 03-10-2023 Calcium [Mass/Vol] 8.8 mg/dL 8.6-10.3 [facility] Carbon dioxide, total [Moles /volume] in Serum or PlasmaOrdered By: Arnulfo Carter on 03-10-2023 CO2 [Moles/Vol] 24.5 mmol/L 21.0-31.0 [facility] Chloride [Moles/volume] in S paulo or PlasmaOrdered By: Arnulfo Carter on 03-10-2023 Chloride [Moles/Vol] 111 mmol/L 98-107 [facility] Creatinine [Mass/volume] in Serum or PlasmaOrdered By: Arnulfo Carter on 03-10-2023 Creatinine [Mass/Vol] 1.12 mg/dL 0.70-1.30 [facility] Eosinophils Auto (Bld) [#/Vo l]Ordered By: Arnulfo Carter on 03-10-2023 Eosinophils (Bld) [#/Vol] 0.2 10*3/uL 0.0-0.45 [facility] Eosinophils/100 WBC Auto (Bl d)Ordered By: Arnulfo Carter on 03-10-2023 Eosinophils/100 WBC (Bld) 3.1 % . [facility] Erythrocyte distribution wid th Auto (RBC) [Ratio]Ordered By: Arnulfo Carter on 03-10-2023 Erythrocyte distribution width (RBC) [Ratio] 16.4 % 12.0-14.8 [facility] Glucose [Mass/volume] in Ser um or PlasmaOrdered By: Arnulfo Carter on 03-10-2023 Glucose [Mass/Vol] 120 mg/dL 70-100 [facility] Comment on above: ADA recommended refe rence rangeRandom Glucose Reference Range is dependent on time and content of last meal. Glucose of more than 200 mg/dL in a nonstressed, ambulatory subject supports the diagnosis of Diabetes Mellitus. Hematocrit Auto (Bld) [Volum e fraction]Ordered By: Arnulfo Carter on 03-10-2023 Hematocrit (Bld) [Volume fraction] 37.0 % 38.8-50.0 [facility] Hemoglobin [Mass/volume] in BloodOrdered By: Arnulfo Carter on 03-10-2023 Hemoglobin (Bld) [Mass/Vol] 12.6 g/dL 13.0-17.0 [facility] Leukocytes [#/volume] correc liborio for nucleated erythrocytes in Blood by Automated counOrdered By: Arnulfo Carter on 03-10-2023 WBC corrected for nucl RBC Auto (Bld) [#/Vol] 5.5 10*3/uL 4.1-10.5 [facility] Lymphocytes Auto (Bld) [#/Vo l]Ordered By: Arnulfo Carter on 03-10-2023 Lymphocytes (Bld) [#/Vol] 1.0 10*3/uL 1.00-4.8 [facility] Lymphocytes/100 WBC Auto (Bl d)Ordered By: Arnulfo Carter on 03-10-2023 Lymphocytes/100 WBC (Bld) 18.6 % . [facility] MCH Auto (RBC) [Entitic mass ]Ordered By: Arnulfo Carter on 03-10-2023 MCH (RBC) [Entitic mass] 32.5 pg 27.5-35.2 [facility] MCHC Auto (RBC) [Mass/Vol]Or dered By: Arnulfo Carter on 03-10-2023 MCHC (RBC) [Mass/Vol] 34.1 g/dL 32.5-35.6 [facility] MCV Auto (RBC) [Entitic vol] Ordered By: Arnulfo Carter on 03-10-2023 MCV (RBC) [Entitic vol] 95.3 fL 83.5-101 [facility] Monocytes Auto (Bld) [#/Vol] Ordered By: Arnulfo Carter on 03-10-2023 Monocytes (Bld) [#/Vol] 0.5 10*3/uL 0.0-0.8 [facility] Monocytes/100 WBC Auto (Bld) Ordered By: Arnulfo Carter on 03-10-2023 Monocytes/100 WBC (Bld) 9.2 % . [facility] Neutrophils Auto (Bld) [#/Vo l]Ordered By: Arnulfo Carter on 03-10-2023 Neutrophils (Bld) [#/Vol] 3.7 10*3/uL 1.8-7.7 [facility] Neutrophils/100 WBC Auto (Bl d)Ordered By: Arnulfo Carter on 03-10-2023 Neutrophils/100 WBC (Bld) 68.1 % . [facility] No Panel InformationOrdered By: Arnulfo Carter on 03-10-2023 Estimated GFR (CKD-EPI) > 60.0 mL/Min [facility] Creatinine Clearance (Chem N/A [facility] Nucleated erythrocytes [Pres ence] in Blood by Automated countOrdered By: Arnulfo Carter on 03-10-2023 Nucleated RBC Auto Ql (Bld) 0.1 /100{WBC} 0-0.5 [facility] Platelet mean volume Auto (B ld) [Entitic vol]Ordered By: Arnulfo Carter on 03-10-2023 Platelet mean volume (Bld) [Entitic vol] 9.0 fL 6.6-10.1 [facility] Platelets Auto (Bld) [#/Vol] Ordered By: Arnulfo Carter on 03-10-2023 Platelets (Bld) [#/Vol] 183 10*3/uL 150-450 [facility] Potassium [Moles/volume] in Serum or PlasmaOrdered By: Arnulfo Carter on 03-10-2023 Potassium [Moles/Vol] 4.3 mmol/L 3.5-5.1 [facility] RBC Auto (Bld) [#/Vol]Ordere d By: Arnulfo Carter on 03-10-2023 RBC (Bld) [#/Vol] 3.88 10*6/uL 3.90-5.60 [facility] Serum or plasma anion gap de terminationOrdered By: Arnulfo Carter on 03-10-2023 Anion gap [Moles/Vol] 9.8 mmol/L 6.0-15.0 [facility] Sodium [Moles/volume] in Ser um or PlasmaOrdered By: Arnulfo Carter on 03-10-2023 Sodium [Moles/Vol] 141 mmol/L 136-145 [facility] Urea nitrogen [Mass/volume] in Serum or PlasmaOrdered By: Arnulfo Carter on 03-10-2023 Urea nitrogen [Mass/Vol] 22 mg/dL 7-25 [facility] WBC Auto (Bld) [#/Vol]Ordere d By: Arnulfo Carter on 03-10-2023 WBC (Bld) [#/Vol] 5.5 10*3/uL 4.1-10.5 [facility] XR CHEST 2 VIEWSon 3 XR CHEST 2 VIEWS Interpreted By: Erna Yap, STUDY: XR CHEST 2 VIEWS; 03/09/2023 7:14 am INDICATION: Signs/Symptoms:Pacemaker insertion. COMPARISON: None. ACCESSION NUMBER(S): [id number] ORDERING CLINICIAN: JOBY PINEDO FINDINGS: No consolidation. Streaky left basilar opacity suggestive of atelectasis. Trace left pleural effusion. No pneumothorax. Diffuse interstitial pulmonary opacities suggestive of pulmonary edema.. Enlarged heart size. No acute osseous abnormality. Atherosclerosis. Multilevel degenerative change in the spine. IMPRESSION: Cardiomegaly with pulmonary edema. Trace left pleural effusion. Signed by: Erna Velasquez 03/10/2023 11:50 AM Dictation workstation: [id number] [facility] TRANSTHORACIC ECHO (TTE) COM PLETEon 02-26-2023 TRANSTHORACIC ECHO (TTE) COMPLETE [address], [address] [place] [address] TRANSTHORACIC ECHOCARDIOGRAM REPORT Patient Name: SHAHID SANCHEZ Chastity Physician: [id number] Pinedo MD Study Date: 02/26/2023 Ordering Provider: Jeffrey PINEDO MRN/PID: [id number] Fellow: Nurse: Date of /Age: 7 1940 / 82 years Regional Clinical Research Associate: Kaycee Morse RDCS, RVT Gender: M Additional Staff: Height: 180.34 cm Admit Date: Weight: 103.42 kg Admission Status: BSA: 2.23 m2 Department Location: [facility] Study Type: TRANSTHORACIC ECHO (TTE) COMPLETE Diagnosis/ICD: Other persistent AFib-I48.19; Bradycardia, unspecified-R00.1; Chronic systolic (congestive) heart failure (CHF)-I50.22; Essential (primary) hypertension-I10 Indication: Diabetes, POC, Former Smoker, Shortness of Breath, Rheumatoid Arthritis, History of Colon Cancer CPT Codes: Echo Complete w Full Doppler-[id number] Study Detail: The following Echo studies were performed: 2D, M-Mode, Doppler and color flow. PHYSICIAN INTERPRETATION: Left Ventricle: Left ventricular systolic function is normal, with an estimated ejection fraction of 65%. There are no regional wall motion abnormalities. The left ventricular cavity size is normal. Spectral Doppler shows a normal pattern of left ventricular diastolic filling. Mild concentric left ventricular hypertrophy. Left Atrium: The left atrium is mildly dilated. Mildly dilated left atrium. Right Ventricle: The right ventricle is normal in size. There is normal right ventricular global systolic function. Right Atrium: The right atrium is normal in size. Aortic Valve: The aortic valve appears abnormal. There is trivial aortic valve regurgitation. The peak instantaneous gradient of the aortic valve is 61.5 mmHg. The mean gradient of the aortic valve is 33.0 mmHg. Calcified aortic valve with appearance of aortic stenosis. Peak gradient is 61 mmHg. Mean gradient is 33 mmHg. Calculated aortic valve area is 1.08 cm??? consistent with moderate severe aortic stenosis. Mitral Valve: The mitral valve is mildly thickened. There is mild mitral valve regurgitation. Tricuspid Valve: The tricuspid valve is structurally normal. There is mild tricuspid regurgitation. The Doppler estimated RVSP is severely elevated at 64.2 mmHg. Pulmonic Valve: The pulmonic valve is structurally normal. There is no indication of pulmonic valve regurgitation. Pericardium: There is no pericardial effusion noted. Aorta: The aortic root is normal. CONCLUSIONS: 1. Left ventricular systolic function is normal with a 65% estimated ejection fraction. 2. Mild concentric left ventricular hypertrophy. 3. Mildly dilated left atrium. 4. Mild mitral valve regurgitation. 5. Mild tricuspid regurgitation is visualized. 6. Severely elevated right ventricular systolic pressure. 7. Aortic valve appears abnormal. 8. Calcified aortic valve with appearance of aortic stenosis. Peak gradient is 61 mmHg. Mean gradient is 33 mmHg. Calculated aortic valve area is 1.08 cm??? consistent with moderate severe aortic stenosis. 9. No previous study available for comparison. QUANTITATIVE DATA SUMMARY: 2D MEASUREMENTS: Normal Ranges: Ao Root d: 3.20 cm (2.0-3.7cm) LAs: 4.30 cm (2.7-4.0cm) RVIDd: 3.10 cm (0.9-3.6cm) IVSd: 1.40 cm (0.6-1.1cm) LVPWd: 1.20 cm (0.6-1.1cm) LVIDd: 5.50 cm (3.9-5.9cm) LVIDs: 3.10 cm LV Mass Index: 136.5 g/m2 LV % FS 43.6 % LV SYSTOLIC FUNCTION BY 2D PLANIMETRY (MOD): Normal Ranges: EF-A4C View: 63.6 % (>=55%) LV DIASTOLIC FUNCTION: Normal Ranges: MV Peak E: 1.45 m/s (0.7-1.2 m/s) MV Peak A: 1.01 m/s (0.42-0.7 m/s) E/A Ratio: 1.44 (1.0-2.2) MV lateral e' 0.08 m/s MV medial e' 0.06 m/s E/e' Ratio: 19.30 (<8.0) MITRAL VALVE: Normal Ranges: MV Vmax: 1.67 m/s (<=1.3m/s) MV peak P.2 mmHg (<5mmHg) MV mean P.0 mmHg (<48mmHg) MITRAL INSUFFICIENCY: Normal Ranges: MR Vmax: 415.00 cm/s dP/dt: 649 mmHg/s (>1200mmHg/sec) AORTIC VALVE: Normal Ranges: AoV Vmax: 3.92 m/s (<=1.7m/s) AoV Peak P.5 mmHg (<20mmHg) AoV Mean P.0 mmHg (1.7-11.5mmHg) LVOT Max [place]: 0.86 m/s (<=1.1m/s) AoV VTI: 113.00 cm (18-25cm) LVOT VTI: 22.20 cm LVOT Diameter: 2.50 cm (1.8-2.4cm) AoV Area, VTI: 0.96 cm2 (2.5-5.5cm2) AoV Area,Vmax: 1.08 cm2 (2.5-4.5cm2) AoV Dimensionless Index: 0.20 TRICUSPID VALVE/RVSP: Normal Ranges: Peak TR Velocity: 3.91 m/s RV Syst Pressure: 64.2 mmHg (< 30mmHg) PULMONIC VALVE: Normal Ranges: PV Max [place]: 0.9 m/s (0.6-0.9m/s) PV Max P.0 mmHg PIEDV: 2.71 m/s PADP: 32.4 mmHg [id number] Joby Pinedo MD Electronically signed on 02/26/2023 at 6:13:11 PM Final Normal [facility] US Heart Transthoracicon Aortic Valve Area by Continuity of Peak Velocity 1.08 [facility] Work Phone: Aortic Valve Area by Continuity of VTI 0.96 [facility] Work Phone: AV mn grad 33.0 [facility] Work Phone: AV pk grad 61.5 [facility] Work Phone: AV pk charlotte 3.92 [facility] Work Phone: LV A4C EF 63.6 [facility] Work Phone: LVIDd 5.50 [facility] Work Phone: LVOT diam 2.50 [facility] Work Phone: MV avg E/e' ratio 19.30 [facility] Work Phone: MV E/A ratio 1.44 [facility] Work Phone: RVSP 64.2 [facility] Work Phone: [address], [address] [place] [address] TRANSTHORACIC ECHOCARDIOGRAM REPORT Patient Name: SHAHIDRODOLFO MCKEONRKISTOPHER Haywood Physician: [id number] Pinedo MD Study Date: 02/26/2023 Ordering Provider: Jeffrey PINEDO MRN/PID: [id number] Fellow: Nurse: Date of /Age: 7 1940 / 82 years Regional Clinical Research Associate: Kaycee Morse RDCS, RVT Gender: M Additional Staff: Height: 180.34 cm Admit Date: Weight: 103.42 kg Admission Status: BSA: 2.23 m2 Department Location: [facility] Study Type: TRANSTHORACIC ECHO (TTE) COMPLETE Diagnosis/ICD: 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 PHYSICIAN INTERPRETATION: Left Ventricle: Left ventricular systolic function is normal, with an estimated ejection fraction of 65%. There are no regional wall motion abnormalities. The left ventricular cavity size is normal. Spectral Doppler shows a normal pattern of left ventricular diastolic filling. Mild concentric left ventricular hypertrophy. Left Atrium: The left atrium is mildly dilated. Mildly dilated left atrium. Right Ventricle: The right ventricle is normal in size. There is normal right ventricular global systolic function. Right Atrium: The right atrium is normal in size. Aortic Valve: The aortic valve appears abnormal. There is trivial aortic valve regurgitation. The peak instantaneous gradient of the aortic valve is 61.5 mmHg. The mean gradient of the aortic valve is 33.0 mmHg. Calcified aortic valve with appearance of aortic stenosis. Peak gradient is 61 mmHg. Mean gradient is 33 mmHg. Calculated aortic valve area is 1.08 cm consistent with moderate severe aortic stenosis. Mitral Valve: The mitral valve is mildly thickened. There is mild mitral valve regurgitation. Tricuspid Valve: The tricuspid valve is structurally normal. There is mild tricuspid regurgitation. The Doppler estimated RVSP is severely elevated at 64.2 mmHg. Pulmonic Valve: The pulmonic valve is structurally normal. There is no indication of pulmonic valve regurgitation. Pericardium: There is no pericardial effusion noted. Aorta: The aortic root is normal. CONCLUSIONS: 1. Left ventricular systolic function is normal with a 65% estimated ejection fraction. 2. Mild concentric left ventricular hypertrophy. 3. Mildly dilated left atrium. 4. Mild mitral valve regurgitation. 5. Mild tricuspid regurgitation is visualized. 6. Severely elevated right ventricular systolic pressure. 7. Aortic valve appears abnormal. 8. Calcified aortic valve with appearance of aortic stenosis. Peak gradient is 61 mmHg. Mean gradient is 33 mmHg. Calculated aortic valve area is 1.08 cm consistent with moderate severe aortic stenosis. 9. No previous study available for comparison. QUANTITATIVE DATA SUMMARY: 2D MEASUREMENTS: Normal Ranges: Ao Root d: 3.20 cm (2.0-3.7cm) LAs: 4.30 cm (2.7-4.0cm) RVIDd: 3.10 cm (0.9-3.6cm) IVSd: 1.40 cm (0.6-1.1cm) LVPWd: 1.20 cm (0.6-1.1cm) LVIDd: 5.50 cm (3.9-5.9cm) LVIDs: 3.10 cm LV Mass Index: 136.5 g/m2 LV % FS 43.6 % LV SYSTOLIC FUNCTION BY 2D PLANIMETRY (MOD): Normal Ranges: EF-A4C View: 63.6 % (>=55%) LV DIASTOLIC FUNCTION: Normal Ranges: MV Peak E: 1.45 m/s (0.7-1.2 m/s) MV Peak A: 1.01 m/s (0.42-0.7 m/s) E/A Ratio: 1.44 (1.0-2.2) MV lateral e' 0.08 m/s MV medial e' 0.06 m/s E/e' Ratio: 19.30 (<8.0) MITRAL VALVE: Normal Ranges: MV Vmax: 1.67 m/s (<=1.3m/s) MV peak P.2 mmHg (<5mmHg) MV mean P.0 mmHg (<48mmHg) MITRAL INSUFFICIENCY: Normal Ranges: MR Vmax: 415.00 cm/s dP/dt: 649 mmHg/s (>1200mmHg/sec) AORTIC VALVE: Normal Ranges: AoV Vmax: 3.92 m/s (<=1.7m/s) AoV Peak P.5 mmHg (<20mmHg) AoV Mean P.0 mmH (more content not included)... Joby Reeves MD - 02/26/[address], Suite [facility], [place] [address] TRANSTHORACIC ECHOCARDIOGRAM REPORT Patient Name: SHAHID SANCHEZ Reading Physician: [id number] Joby Pinedo MD Study Date: 02/26/2023 Ordering Provider: [id number] JOBY PINEDO MRN/PID: [id number] Fellow: Nurse: Date of /Age: 7 1940 / 82 years Regional Clinical Research Associate: Kaycee Morse RDCS, RVT Gender: M Additional Staff: Height: 180.34 cm Admit Date: Weight: 103.42 kg Admission Status: BSA: 2.23 m2 Department Location: [facility] Study Type: TRANSTHORACIC ECHO (TTE) COMPLETE Diagnosis/ICD: Other persistent AFib-I48.19; Bradycardia, unspecified-R00.1; Chronic systolic (congestive) heart failure (CHF)-I50.22; Essential (primary) hypertension-I10 Indication: Diabetes, POC, Former Smoker, Shortness of Breath, Rheumatoid Arthritis, History of Colon Cancer CPT Codes: Echo Complete w Full Doppler-[id number] Study Detail: The following Echo studies were performed: 2D, M-Mode, Doppler and color flow. PHYSICIAN INTERPRETATION: Left Ventricle: Left ventricular systolic function is normal, with an estimated ejection fraction of 65%. There are no regional wall motion abnormalities. The left ventricular cavity size is normal. Spectral Doppler shows a normal pattern of left ventricular diastolic filling. Mild concentric left ventricular hypertrophy. Left Atrium: The left atrium is mildly dilated. Mildly dilated left atrium. Right Ventricle: The right ventricle is normal in size. There is normal right ventricular global systolic function. Right Atrium: The right atrium is normal in size. Aortic Valve: The aortic valve appears abnormal. There is trivial aortic valve regurgitation. The peak instantaneous gradient of the aortic valve is 61.5 mmHg. The mean gradient of the aortic valve is 33.0 mmHg. Calcified aortic valve with appearance of aortic stenosis. Peak gradient is 61 mmHg. Mean gradient is 33 mmHg. Calculated aortic valve area is 1.08 cm consistent with moderate severe aortic stenosis. Mitral Valve: The mitral valve is mildly thickened. There is mild mitral valve regurgitation. Tricuspid Valve: The tricuspid valve is structurally normal. There is mild tricuspid regurgitation. The Doppler estimated RVSP is severely elevated at 64.2 mmHg. Pulmonic Valve: The pulmonic valve is structurally normal. There is no indication of pulmonic valve regurgitation. Pericardium: There is no pericardial effusion noted. Aorta: The aortic root is normal. CONCLUSIONS: 1. Left ventricular systolic function is normal with a 65% estimated ejection fraction. 2. Mild concentric left ventricular hypertrophy. 3. Mildly dilated left atrium. 4. Mild mitral valve regurgitation. 5. Mild tricuspid regurgitation is visualized. 6. Severely elevated right ventricular systolic pressure. 7. Aortic valve appears abnormal. 8. Calcified aortic valve with appearance of aortic stenosis. Peak gradient is 61 mmHg. Mean gradient is 33 mmHg. Calculated aortic valve area is 1.08 cm consistent with moderate severe aortic stenosis. 9. No previous study available for comparison. QUANTITATIVE DATA SUMMARY: 2D MEASUREMENTS: Normal Ranges: Ao Root d: 3.20 cm (2.0-3.7cm) LAs: 4.30 cm (2.7-4.0cm) RVIDd: 3.10 cm (0.9-3.6cm) IVSd: 1.40 cm (0.6-1.1cm) LVPWd: 1.20 cm (0.6-1.1cm) LVIDd: 5.50 cm (3.9-5.9cm) LVIDs: 3.10 cm LV Mass Index: 136.5 g/m2 LV % FS 43.6 % LV SYSTOLIC FUNCTION BY 2D PLANIMETRY (MOD): Normal Ranges: EF-A4C View: 63.6 % (>=55%) LV DIASTOLIC FUNCTION: Normal Ranges: MV Peak E: 1.45 m/s (0.7-1.2 m/s) MV Peak A: 1.01 m/s (0.42-0.7 m/s) E/A Ratio: 1.44 (1.0-2.2) MV lateral e' 0.08 m/s MV medial e' 0.06 m/s E/e' Ratio: 19.30 (<8.0) MITRAL VALVE: Normal Ranges: MV Vmax: 1.67 m/s (<=1.3m/s) MV peak P.2 mmHg (<5mmHg) MV mean P.0 mmHg (<48mmHg) MITRAL INSUFFICIENCY: Normal Ranges: MR Vmax: 415.00 cm/s dP/dt: 649 mmHg/s (>1200mmHg/sec) AORTIC VALVE: Normal Ranges: AoV Vmax: 3.92 m/s (<=1.7m/s) AoV Peak P.5 mmHg (<20mmHg) AoV Mean P.0 mmHg (1.7-11.5mmHg) LVOT Max [place]: 0.86 m/s (<=1.1m/s) AoV VTI: 113.00 cm (18-25cm) LVOT VTI: 22.20 cm LVOT Diameter: 2.50 cm (1.8-2.4cm) AoV Area, VTI: 0.96 cm2 (2.5-5.5cm2) AoV Area,Vmax: 1.08 cm2 (2.5-4.5cm2) AoV Dimensionless Index: 0.20 TRICUSPID VALVE/RVSP: Normal Ranges: Peak TR Velocity: 3.91 m/s RV Syst Pressure: 64.2 mmHg (< 30mmHg) PULMONIC VALVE: Normal Ranges: PV Max [place]: 0.9 m/s (0.6-0.9m/s) PV Max P.0 mmHg PIEDV: 2.71 m/s PADP: 32.4 mmHg [id number] Joby Pinedo MD Electronically signed on 02/26/2023 at 6:13:11 PM Final [facility] Work Phone: [facility] Work Phone: ECG 12 Leadon 02-23-2023 Baseline rhythm appe ars to be atrial fibrillation or junctional with heart rate around 36 bpm. 1 PVC was noted. QRS duration is [address] [facility] Work Phone: Alanine aminotransferase [En zymatic activity/volume] in Serum or PlasmaOrdered By: Floyd Bolton on 01-28-2023 ALT [Catalytic activity/Vol] 21 U/L 7-52 [facility] Albumin [Mass/volume] in Ser um or Plasma by Bromocresol green (BCG) dye binding methoOrdered By: Floyd Bolton on 01-28-2023 Albumin BCG dye [Mass/Vol] 3.7 g/dL 3.5-5.7 [facility] Alkaline phosphatase [Enzyma tic activity/volume] in Serum or PlasmaOrdered By: Floyd Bolton on 01-28-2023 ALP [Catalytic activity/Vol] 47 U/L 34-104 [facility] Aspartate aminotransferase [ Enzymatic activity/volume] in Serum or PlasmaOrdered By: Floyd Bolton on 01-28-2023 AST [Catalytic activity/Vol] 22 U/L 13-39 [facility] Basophils Auto (Bld) [#/Vol] Ordered By: Floyd Bolton on 01-28-2023 Basophils (Bld) [#/Vol] 0.0 10*3/uL 0.0-0.2 [facility] Basophils/100 WBC Auto (Bld) Ordered By: Floyd Bolton on 01-28-2023 Basophils/100 WBC (Bld) 0.5 % . [facility] Bilirubin.total [Mass/volume ] in Serum or PlasmaOrdered By: Floyd Bolton on 01-28-2023 Bilirubin [Mass/Vol] 1.2 mg/dL 0.3-1.0 [facility] Calcium [Mass/volume] in Ser um or PlasmaOrdered By: Floyd Bolton on 01-28-2023 Calcium [Mass/Vol] 8.5 mg/dL 8.6-10.3 [facility] Carbon dioxide, total [Moles /volume] in Serum or PlasmaOrdered By: Floyd Bolton on 01-28-2023 CO2 [Moles/Vol] 23.7 mmol/L 21.0-31.0 [facility] Chloride [Moles/volume] in S paulo or PlasmaOrdered By: Floyd Bolton on 01-28-2023 Chloride [Moles/Vol] 110 mmol/L 98-107 [facility] Creatinine [Mass/volume] in Serum or PlasmaOrdered By: Floyd Bolton on 01-28-2023 Creatinine [Mass/Vol] 1.18 mg/dL 0.70-1.30 [facility] Eosinophils Auto (Bld) [#/Vo l]Ordered By: Floyd Bolton on 01-28-2023 Eosinophils (Bld) [#/Vol] 0.1 10*3/uL 0.0-0.45 [facility] Eosinophils/100 WBC Auto (Bl d)Ordered By: Floyd Bolton on 01-28-2023 Eosinophils/100 WBC (Bld) 2.3 % . [facility] Erythrocyte distribution wid th Auto (RBC) [Ratio]Ordered By: Floyd Bolton on 01-28-2023 Erythrocyte distribution width (RBC) [Ratio] 16.5 % 12.0-14.8 [facility] Erythrocyte sedimentation ra te by Photometric methodOrdered By: Floyd Bolton on 01-28-2023 ESR Photometric method (Bld) [Velocity] 16 mm/hr 0-19 [facility] Globulin Calc (S) [Mass/Vol] Ordered By: Floyd Bolton on 01-28-2023 Globulin (S) [Mass/Vol] 2.3 g/dL [facility] Glucose [Mass/volume] in Ser um or PlasmaOrdered By: Floyd Bolton on 01-28-2023 Glucose [Mass/Vol] 148 mg/dL 70-100 [facility] Comment on above: ADA recommended refe rence rangeRandom Glucose Reference Range is dependent on time and content of last meal. Glucose of more than 200 mg/dL in a nonstressed, ambulatory subject supports the diagnosis of Diabetes Mellitus. Hematocrit Auto (Bld) [Volum e fraction]Ordered By: Floyd Bolton on 01-28-2023 Hematocrit (Bld) [Volume fraction] 36.6 % 38.8-50.0 [facility] Hemoglobin [Mass/volume] in BloodOrdered By: Floyd Bolton on 01-28-2023 Hemoglobin (Bld) [Mass/Vol] 12.7 g/dL 13.0-17.0 [facility] Leukocytes [#/volume] correc liborio for nucleated erythrocytes in Blood by Automated counOrdered By: Floyd Bolton on 01-28-2023 WBC corrected for nucl RBC Auto (Bld) [#/Vol] 6.5 10*3/uL 4.1-10.5 [facility] Lymphocytes Auto (Bld) [#/Vo l]Ordered By: Floyd Bolton on 01-28-2023 Lymphocytes (Bld) [#/Vol] 1.0 10*3/uL 1.00-4.8 [facility] Lymphocytes/100 WBC Auto (Bl d)Ordered By: Floyd Bolton on 11-02-2023 Lymphocytes/100 WBC (Bld) 16.1 % . [facility] MCH Auto (RBC) [Entitic mass ]Ordered By: Floyd Bolton on 01-28-2023 MCH (RBC) [Entitic mass] 32.7 pg 27.5-35.2 [facility] MCHC Auto (RBC) [Mass/Vol]Or dered By: Floyd Bolton on 01-28-2023 MCHC (RBC) [Mass/Vol] 34.7 g/dL 32.5-35.6 [facility] MCV Auto (RBC) [Entitic vol] Ordered By: Floyd Bolton on 01-28-2023 MCV (RBC) [Entitic vol] 94.2 fL 83.5-101 [facility] Monocytes Auto (Bld) [#/Vol] Ordered By: Floyd Bolton on 01-28-2023 Monocytes (Bld) [#/Vol] 0.5 10*3/uL 0.0-0.8 [facility] Monocytes/100 WBC Auto (Bld) Ordered By: Floyd Bolton on 01-28-2023 Monocytes/100 WBC (Bld) 7.3 % . [facility] Neutrophils Auto (Bld) [#/Vo l]Ordered By: Floyd Bolton on 01-28-2023 Neutrophils (Bld) [#/Vol] 4.8 10*3/uL 1.8-7.7 [facility] Neutrophils/100 WBC Auto (Bl d)Ordered By: Floyd Bolton on 01-28-2023 Neutrophils/100 WBC (Bld) 73.8 % . [facility] No Panel InformationOrdered By: Floyd Bolton on 01-28-2023 Estimated GFR (CKD-EPI) > 60.0 mL/Min [facility] Creatinine Clearance (Chem N/A [facility] Nucleated erythrocytes [Pres ence] in Blood by Automated countOrdered By: Floyd Bolton on 01-28-2023 Nucleated RBC Auto Ql (Bld) 0.2 /100{WBC} 0-0.5 [facility] Platelet mean volume Auto (B ld) [Entitic vol]Ordered By: Floyd Bolton on 01-28-2023 Platelet mean volume (Bld) [Entitic vol] 9.6 fL 6.6-10.1 [facility] Platelets Auto (Bld) [#/Vol] Ordered By: Floyd Bolton on 01-28-2023 Platelets (Bld) [#/Vol] 212 10*3/uL 150-450 [facility] Potassium [Moles/volume] in Serum or PlasmaOrdered By: Floyd Bolton on 01-28-2023 Potassium [Moles/Vol] 4.2 mmol/L 3.5-5.1 [facility] Protein [Mass/volume] in Ser um or PlasmaOrdered By: Floyd Bolton on 01-28-2023 Protein [Mass/Vol] 6.0 g/dL 6.4-8.9 [facility] RBC Auto (Bld) [#/Vol]Ordere d By: Floyd Bolton on 01-28-2023 RBC (Bld) [#/Vol] 3.89 10*6/uL 3.90-5.60 [facility] Serum or plasma albumin/glob ulin mass ratioOrdered By: Floyd Bolton on 01-28-2023 Albumin/Globulin [Mass ratio] 1.6 {ratio} [facility] Serum or plasma anion gap de terminationOrdered By: Floyd Bolton on 01-28-2023 Anion gap [Moles/Vol] 11.5 mmol/L 6.0-15.0 [facility] Sodium [Moles/volume] in Ser um or PlasmaOrdered By: Floyd Bolton on 01-28-2023 Sodium [Moles/Vol] 141 mmol/L 136-145 [facility] Urea nitrogen [Mass/volume] in Serum or PlasmaOrdered By: Floyd Bolton on 01-28-2023 Urea nitrogen [Mass/Vol] 21 mg/dL 7-25 [facility] WBC Auto (Bld) [#/Vol]Ordere d By: Floyd Bolton on 01-28-2023 WBC (Bld) [#/Vol] 6.5 10*3/uL 4.1-10.5 [facility] Alanine aminotransferase [En zymatic activity/volume] in Serum or PlasmaOrdered By: Floyd Bolton on 2022 ALT [Catalytic activity/Vol] 18 U/L 7-52 [facility] Albumin [Mass/volume] in Ser um or Plasma by Bromocresol green (BCG) dye binding methoOrdered By: Floyd Bolton on 2022 Albumin BCG dye [Mass/Vol] 3.5 g/dL 3.5-5.7 [facility] Alkaline phosphatase [Enzyma tic activity/volume] in Serum or PlasmaOrdered By: Floyd Bolton on 2022 ALP [Catalytic activity/Vol] 50 U/L 34-104 [facility] Aspartate aminotransferase [ Enzymatic activity/volume] in Serum or PlasmaOrdered By: Floyd Bolton on 2022 AST [Catalytic activity/Vol] 19 U/L 13-39 [facility] Basophils Auto (Bld) [#/Vol] Ordered By: Floyd Bolton on 2022 Basophils (Bld) [#/Vol] 0.1 10*3/uL 0.0-0.2 [facility] Basophils/100 WBC Auto (Bld) Ordered By: Floyd Bolton on 2022 Basophils/100 WBC (Bld) 0.8 % . [facility] Bilirubin.total [Mass/volume ] in Serum or PlasmaOrdered By: Floyd Bolton on 2022 Bilirubin [Mass/Vol] 0.9 mg/dL 0.3-1.0 [facility] Calcium [Mass/volume] in Ser um or PlasmaOrdered By: Floyd Bolton on 2022 Calcium [Mass/Vol] 8.6 mg/dL 8.6-10.3 [facility] Carbon dioxide, total [Moles /volume] in Serum or PlasmaOrdered By: Floyd Bolton on 2022 CO2 [Moles/Vol] 22.3 mmol/L 21.0-31.0 [facility] Chloride [Moles/volume] in S paulo or PlasmaOrdered By: Floyd Bolton on 2022 Chloride [Moles/Vol] 108 mmol/L 98-107 [facility] Creatinine [Mass/volume] in Serum or PlasmaOrdered By: Floyd Bolton on 2022 Creatinine [Mass/Vol] 1.21 mg/dL 0.70-1.30 [facility] Eosinophils Auto (Bld) [#/Vo l]Ordered By: Floyd Bolton on 2022 Eosinophils (Bld) [#/Vol] 0.2 10*3/uL 0.0-0.45 [facility] Eosinophils/100 WBC Auto (Bl d)Ordered By: Floyd Bolton on 2022 Eosinophils/100 WBC (Bld) 2.0 % . [facility] Erythrocyte distribution wid th Auto (RBC) [Ratio]Ordered By: Floyd Bolton on 2022 Erythrocyte distribution width (RBC) [Ratio] 15.4 % 12.0-14.8 [facility] Erythrocyte sedimentation ra te by Photometric methodOrdered By: Floyd Bolton on 2022 ESR Photometric method (d) [Velocity] 31 mm/hr 0-19 [facility] Globulin Calc (S) [Mass/Vol] Ordered By: Floyd Bolton on 2022 Globulin (S) [Mass/Vol] 3.0 g/dL [facility] Glucose [Mass/volume] in Ser um or PlasmaOrdered By: Floyd Bolton on 2022 Glucose [Mass/Vol] 144 mg/dL 70-100 [facility] Comment on above: ADA recommended refe rence rangeRandom Glucose Reference Range is dependent on time and content of last meal. Glucose of more than 200 mg/dL in a nonstressed, ambulatory subject supports the diagnosis of Diabetes Mellitus. Hematocrit Auto (Bld) [Volum e fraction]Ordered By: Floyd Bolton on 2022 Hematocrit (Bld) [Volume fraction] 34.6 % 38.8-50.0 [facility] Hemoglobin [Mass/volume] in BloodOrdered By: Floyd Bolton on 2022 Hemoglobin (Bld) [Mass/Vol] 11.9 g/dL 13.0-17.0 [facility] Leukocytes [#/volume] correc liborio for nucleated erythrocytes in Blood by Automated counOrdered By: Floyd Bolton on 2022 WBC corrected for nucl RBC Auto (Bld) [#/Vol] 8.1 10*3/uL 4.1-10.5 [facility] Lymphocytes Auto (Bld) [#/Vo l]Ordered By: Floyd Bolton on 2022 Lymphocytes (Bld) [#/Vol] 0.9 10*3/uL 1.00-4.8 [facility] Lymphocytes/100 WBC Auto (Bl d)Ordered By: Floyd Bolton on 2022 Lymphocytes/100 WBC (Bld) 10.9 % . [facility] MCH Auto (RBC) [Entitic mass ]Ordered By: Floyd Bolton on 2022 MCH (RBC) [Entitic mass] 32.4 pg 27.5-35.2 [facility] MCHC Auto (RBC) [Mass/Vol]Or dered By: Floyd Bolton on 2022 MCHC (RBC) [Mass/Vol] 34.5 g/dL 32.5-35.6 [facility] MCV Auto (RBC) [Entitic vol] Ordered By: Floyd Bolton on 2022 MCV (RBC) [Entitic vol] 94.1 fL 83.5-101 [facility] Monocytes Auto (Bld) [#/Vol] Ordered By: Floyd Bolton on 2022 Monocytes (Bld) [#/Vol] 0.4 10*3/uL 0.0-0.8 [facility] Monocytes/100 WBC Auto (Bld) Ordered By: Floyd Bolton on 2022 Monocytes/100 WBC (Bld) 5.3 % . [facility] Neutrophils Auto (Bld) [#/Vo l]Ordered By: Floyd Bolton on 2022 Neutrophils (Bld) [#/Vol] 6.6 10*3/uL 1.8-7.7 [facility] Neutrophils/100 WBC Auto (Bl d)Ordered By: Floyd Bolton on 2022 Neutrophils/100 WBC (Bld) 81.0 % . [facility] No Panel InformationOrdered By: Floyd Bolton on 07-12-2023 Estimated GFR (CKD-EPI) > 60.0 mL/Min [facility] Creatinine Clearance (Chem N/A [facility] Nucleated erythrocytes [Pres ence] in Blood by Automated countOrdered By: Floyd Bolton on 2022 Nucleated RBC Auto Ql (Bld) 0.1 /100{WBC} 0-0.5 [facility] Platelet mean volume Auto (B ld) [Entitic vol]Ordered By: Floyd Bolton on 2022 Platelet mean volume (Bld) [Entitic vol] 9.0 fL 6.6-10.1 [facility] Platelets Auto (Bld) [#/Vol] Ordered By: Floyd Bolton on 2022 Platelets (Bld) [#/Vol] 190 10*3/uL 150-450 [facility] Potassium [Moles/volume] in Serum or PlasmaOrdered By: Floyd Bolton on 2022 Potassium [Moles/Vol] 3.9 mmol/L 3.5-5.1 [facility] Protein [Mass/volume] in Ser um or PlasmaOrdered By: Floyd Bolton on 2022 Protein [Mass/Vol] 6.5 g/dL 6.4-8.9 [facility] RBC Auto (Bld) [#/Vol]Ordere d By: Floyd Bolton on 2022 RBC (Bld) [#/Vol] 3.67 10*6/uL 3.90-5.60 [facility] Serum or plasma albumin/glob ulin mass ratioOrdered By: Floyd Bolton on 2022 Albumin/Globulin [Mass ratio] 1.2 {ratio} [facility] Serum or plasma anion gap de terminationOrdered By: Floyd Bolton on 2022 Anion gap [Moles/Vol] 11.6 mmol/L 6.0-15.0 [facility] Sodium [Moles/volume] in Ser um or PlasmaOrdered By: Floyd Bolton on 2022 Sodium [Moles/Vol] 138 mmol/L 136-145 [facility] Urea nitrogen [Mass/volume] in Serum or PlasmaOrdered By: Floyd Bolton on 2022 Urea nitrogen [Mass/Vol] 17 mg/dL 7- [facility] WBC Auto (Bld) [#/Vol]Ordere d By: Floyd Bolton on 2022 WBC (Bld) [#/Vol] 8.1 10*3/uL 4.1-10.5 [facility] Ambulatory Visit Summaryon 0 07-21-2022 Ambulatory Visit Summary SHAHID SANCHEZ :1940 Visit Date:07/21/2022 Ambulatory Visit Instructions Your Care Team Attending Physician - MARGARITA CABRERA, Yovany Lopez Primary Care Physician - AL RAYMUNDO JR, DO This Is Your Medications List apixaban (Eliquis 5 mg oral tablet) cholecalciferol (Vitamin D3 2000 intl units) colesevelam (Welchol 625 mg Tab) cyanocobalamin (Vitamin B12 100 mcg oral tablet) dapagliflozin (Farxiga 10 mg oral tablet) dutasteride (Avodart 0.5 mg Cap) finerenone (Kerendia 20 mg oral tablet) folic acid infliximab (Remicade) ipratropium nasal (Atrovent 0.03% [place]) levothyroxine (Synthroid 50 mcg Tab) metformin (metformin 850 mg Tab) methotrexate montelukast (Singulair 10 mg Tab) rosuvastatin (Crestor 10 mg Tab) sacubitril-valsartan (Entresto 24 mg-26 mg oral tablet) semaglutide (Ozempic) terbinafine (terbinafine 250 mg Tab) Procedures Performed Colonoscopy (07/08/2022), Exploratory laparotomy (05/02/2018), Right hemicolectomy (05/02/2018), Colonoscopy (04/28/2018), Colonoscopy (12/10/2017), Laparoscopic cholecystectomy (01/2017), Repair of umbilical hernia (01/2017), Colonoscopy (12/15/2012), Colonoscopy (02/07/2009), Colonoscopy (02/02/2008), Arthroplasty of knee, Arthroplasty of right knee, Rotator cuff repair, Rotator cuff repair. Medications What How Much When Instructions Unchanged apixaban (Eliquis 5 mg oral tablet) 1 Tablets By Mouth 2 times a day Unchanged cholecalciferol (Vitamin D3 2000 intl units) 1 Tablets By Mouth Every day Unchanged colesevelam (Welchol 625 mg Tab) 1 Tablets By Mouth Every day Unchanged cyanocobalamin (Vitamin B12 100 mcg oral tablet) 1 Tablets By Mouth Every day Unchanged dapagliflozin (Farxiga 10 mg oral tablet) 1 Tablets By Mouth Every day Unchanged dutasteride (Avodart 0.5 mg Cap) 1 Capsules By Mouth Every day Unchanged finerenone (Kerendia 20 mg oral tablet) 1 Tablets By Mouth Every day Unchanged folic acid as diretced Unchanged infliximab (Remicade) as directed Unchanged ipratropium nasal (Atrovent 0.03% [place]) 2 Sprays Nasal Inhalation 3 times a day Unchanged levothyroxine (Synthroid 50 mcg Tab) 1 Tablets By Mouth Every day Unchanged metformin (metformin 850 mg Tab) 1 Tablets By Mouth Every day Unchanged methotrexate as directed Unchanged montelukast (Singulair 10 mg Tab) Unchanged rosuvastatin (Crestor 10 mg Tab) 1 Tablets By Mouth Every day Unchanged sacubitril-valsartan (Entresto 24 mg-26 mg oral tablet) 1 Tablets By Mouth 2 times a day Unchanged semaglutide (Ozempic) Unchanged terbinafine (terbinafine 250 mg Tab) use one week per month Allergies No Known Allergies No Known Medication Allergies Problems Ongoing - Any problem that you are currently receiving treatment for. 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 History of Present Illness s/p colonoscopy with polypectomy x 2 for small tubular adenomas at ileocolic anastomosis and descending colon; doing well, denies pain or blood in stools. Assessment/Plan 1. Benign neoplasm of descending colon (D12.4: Benign neoplasm of descending colon) plan surveillance colonoscopy in 5 years as long as patient in good health; call with problems/questions. 2. Benign neoplasm of transverse colon (D12.3: Benign neoplasm of transverse colon) see # 1 Follow-up No qualifying data available Problem List/Past Medical History Ongoing Adenocarcinoma of colon Atrial fibrillation Benign neoplasm of transverse colon BMI 29.0-29.9,adult Diabetes mellitus Heart disease, hypertensive Heart failure HTN (hypertension) Hypercholesteremia Hypothyroidism Immunosuppression Kidney disease USP current use of 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 Personal history of colon cancer, stage II Positive colorectal cancer screening using Cologuard test Rheumatoid arthritis Sleep apnea Tubular adenoma of colon Vitamin D deficiency Historical No qualifying data Procedure/Surgical History Colonoscopy (07/08/2022), Exploratory laparotomy (05/02/2018), Right hemicolectomy (05/02/2018), Colonoscopy (04/28/2018), Colonoscopy (12/10/2017), Laparoscopic cholecystectomy (01/2017), Repair of umbilical hernia (01/2017), Colonoscopy (12/15/2012), Colonoscopy (02/07/2009), Colonoscopy (02/02/2008), Arthroplasty of knee, Arthroplasty of right knee, Rotator cuff repair, Rotator cuff repair. Medications Atrovent 0.03% [place], 2 spray(s), Nasal, TID Avodart 0.5 mg Cap, 0.5 mg= 1 cap(s), Oral, Daily Crestor 10 mg Tab, 10 mg= 1 tab(s), Oral, Daily Eliquis 5 mg oral tablet, 5 mg= 1 tab(s), Oral, BID Entresto 24 mg-26 mg oral tablet, 1 tab(s), Oral, BID Farxiga 10 mg oral tablet, 10 mg= 1 tab(s), Oral, Daily folic acid Kerendia 20 mg oral tablet, 20 mg= 1 tab(s), Oral, Daily metformin 850 mg Tab, 850 mg= 1 tab(s), Oral, Daily methotrexate Ozempic Remicade Singulair 10 mg Tab Synthroid 50 mcg Tab, 50 mcg= 1 tab(s), Oral, Daily terbinafine 250 mg Tab Vitamin B12 100 mcg oral tablet, 100 mcg= 1 tab(s), Oral, Daily Vitamin D3 2000 intl units, 1 tab(s), Oral, Daily Welchol 625 mg Tab, 625 mg= 1 tab(s), Oral, Daily Allergies No Known Allergies No Known Medication Allergies Social History Alcohol - Denies Alcohol Use, 06/03/2022 Substance Abuse - Denies Substance Abuse, 06/03/2022 Tobacco Former smoker, quit more than 30 days ago Tobacco Use:. Never Smokeless Tobacco Use:. Cigarettes, 1 per day. Started age 20.0 Years. Stopped age 43 Years., 06/03/2022 Family History Diabetes mellitus type 2: Father. Primary malignant neoplasm of female breast: Mother. Rheumatoid arthritis: Brother. Immunizations Vaccine Date Status SARS-CoV-2 (COVID-19) [id number] 03/03/2022 Recorded influenza virus vaccine, inactivated 12/2021 Recorded SARS-CoV-2 (COVID-19) mRNA-1273 vaccine 06/11/2021 Recorded SARS-CoV-2 (COVID-19) mRNA BNT-162b2 vax 02/06/2021 Recorded SARS-CoV-2 (COVID-19) mRNA BNT-162b2 vax 06/14/2020 Recorded SARS-CoV-2 (COVID-19) mRNA BNT-162b2 vax 05/24/2020 Recorded [facility] Comment on above: Result Comment: Elec tronically Signed By: MARGARITA CABRERA, Yovany Figueredo\Date and Time Signed: 07/21/22 14:14 EDT Reminderson 07-21-2022 Reminders - From: Sarah Patel LPN To: N - Clinical; Sent: 07/21/2022 14:00:46 EDT Show up: 06/08/2027 07:00:00 EDT Subject: colonoscopy recall Due Date/Time: 07/09/2027 07:00:00 EDT Reminder/Recall Patient due for colonoscopy 07/09/2027. [facility] Pathology Noteon 07-13-2022 Pathology Note [id number]:12 7 [facility] Outside Colonoscopyon 2022 Outside Colonoscopy [id number]:12 7 [facility] POINT OF CARE GLUCOSEon 06-27 Glucose [Mass/Vol] 133 mg/dL Critically high 74-106 [facility] Comment on above: Performed By: #### P OCGLUC ####[facility] [address] [place], [place] [address]QeDorcas Rudd Lab Reportson 07-03-2022 Lab Reports [id number]:12 7 [facility] Alanine aminotransferase [En zymatic activity/volume] in Serum or PlasmaOrdered By: Floyd Bolton on 06-16-2022 ALT [Catalytic activity/Vol] 38 U/L 7-52 [facility] Albumin [Mass/volume] in Ser um or Plasma by Bromocresol green (BCG) dye binding methoOrdered By: Floyd Bolton on 06-16-2022 Albumin BCG dye [Mass/Vol] 3.9 g/dL 3.5-5.7 [facility] Alkaline phosphatase [Enzyma tic activity/volume] in Serum or PlasmaOrdered By: Floyd Bolton on 06-16-2022 ALP [Catalytic activity/Vol] 53 U/L 34-104 [facility] Aspartate aminotransferase [ Enzymatic activity/volume] in Serum or PlasmaOrdered By: Floyd Bolton on 06-16-2022 AST [Catalytic activity/Vol] 33 U/L 13-39 [facility] Basophils Auto (Bld) [#/Vol] Ordered By: Floyd Bolton on 06-16-2022 Basophils (Bld) [#/Vol] 0.1 10*3/uL 0.0-0.2 [facility] Basophils/100 WBC Auto (Bld) Ordered By: Floyd Bolton on 06-16-2022 Basophils/100 WBC (Bld) 0.9 % . [facility] Bilirubin.total [Mass/volume ] in Serum or PlasmaOrdered By: Floyd Bolton on 06-16-2022 Bilirubin [Mass/Vol] 0.8 mg/dL 0.3-1.0 [facility] Calcium [Mass/volume] in Ser um or PlasmaOrdered By: Floyd Bolton on 06-16-2022 Calcium [Mass/Vol] 9.1 mg/dL 8.6-10.3 [facility] Carbon dioxide, total [Moles /volume] in Serum or PlasmaOrdered By: Floyd Bolton on 06-16-2022 CO2 [Moles/Vol] 23.6 mmol/L 21.0-31.0 [facility] Chloride [Moles/volume] in S paulo or PlasmaOrdered By: Floyd Bolton on 06-16-2022 Chloride [Moles/Vol] 107 mmol/L 98-107 [facility] Creatinine [Mass/volume] in Serum or PlasmaOrdered By: Floyd Bolton on 06-16-2022 Creatinine [Mass/Vol] 1.28 mg/dL 0.70-1.30 [facility] Eosinophils Auto (Bld) [#/Vo l]Ordered By: Floyd Bolton on 06-16-2022 Eosinophils (Bld) [#/Vol] 0.2 10*3/uL 0.0-0.45 [facility] Eosinophils/100 WBC Auto (Bl d)Ordered By: Floyd Bolton on 06-16-2022 Eosinophils/100 WBC (Bld) 2.4 % . [facility] Erythrocyte distribution wid th Auto (RBC) [Ratio]Ordered By: Floyd Bolton on 06-16-2022 Erythrocyte distribution width (RBC) [Ratio] 15.8 % 12.0-14.8 [facility] Erythrocyte sedimentation ra te by Photometric methodOrdered By: Floyd Bolton on 06-16-2022 ESR Photometric method (Bld) [Velocity] 22 mm/hr 0-19 [facility] Globulin Calc (S) [Mass/Vol] Ordered By: Floyd Bolton on 06-16-2022 Globulin (S) [Mass/Vol] 2.7 g/dL [facility] Glucose [Mass/volume] in Ser um or PlasmaOrdered By: Floyd Bolton on 06-16-2022 Glucose [Mass/Vol] 133 mg/dL 74-109 [facility] Comment on above: ADA recommended refe rence rangeRandom Glucose Reference Range is dependent on time and content of last meal. Glucose of more than 200 mg/dL in a nonstressed, ambulatory subject supports the diagnosis of Diabetes Mellitus. Hematocrit Auto (Bld) [Volum e fraction]Ordered By: Floyd Bolton on 06-16-2022 Hematocrit (Bld) [Volume fraction] 37.5 % 38.8-50.0 [facility] Hemoglobin [Mass/volume] in BloodOrdered By: Floyd Bolton on 06-16-2022 Hemoglobin (Bld) [Mass/Vol] 12.9 g/dL 13.0-17.0 [facility] Laboratory - Chemistry and C hemistry - challengeOrdered By: Floyd Bolton on 06-16-2022 GFR/1.73 sq M.predicted MDRD (S/P/Bld) [Vol rate/Area] 56.578 mL/min/{1.73_m2} [facility] Leukocytes [#/volume] correc liborio for nucleated erythrocytes in Blood by Automated counOrdered By: Floyd Bolton on 06-16-2022 WBC corrected for nucl RBC Auto (Bld) [#/Vol] 6.6 10*3/uL 4.1-10.5 [facility] Lymphocytes Auto (Bld) [#/Vo l]Ordered By: Floyd Bolton on 06-16-2022 Lymphocytes (Bld) [#/Vol] 1.1 10*3/uL 1.00-4.8 [facility] Lymphocytes/100 WBC Auto (Bl d)Ordered By: Floyd Bolton on 06-16-2022 Lymphocytes/100 WBC (Bld) 17.0 % . [facility] MCH Auto (RBC) [Entitic mass ]Ordered By: Floyd Bolton on 06-16-2022 MCH (RBC) [Entitic mass] 33.2 pg 27.5-35.2 [facility] MCHC Auto (RBC) [Mass/Vol]Or dered By: Floyd Bolton on 06-16-2022 MCHC (RBC) [Mass/Vol] 34.4 g/dL 32.5-35.6 [facility] MCV Auto (RBC) [Entitic vol] Ordered By: Floyd Bolton on 06-16-2022 MCV (RBC) [Entitic vol] 96.3 fL 83.5-101 [facility] Monocytes Auto (Bld) [#/Vol] Ordered By: Floyd Bolton on 06-16-2022 Monocytes (Bld) [#/Vol] 0.7 10*3/uL 0.0-0.8 [facility] Monocytes/100 WBC Auto (Bld) Ordered By: Floyd Bolton on 06-16-2022 Monocytes/100 WBC (Bld) 10.1 % . [facility] Neutrophils Auto (Bld) [#/Vo l]Ordered By: Floyd Bolton on 06-16-2022 Neutrophils (Bld) [#/Vol] 4.6 10*3/uL 1.8-7.7 [facility] Neutrophils/100 WBC Auto (Bl d)Ordered By: Floyd Bolton on 06-16-2022 Neutrophils/100 WBC (Bld) 69.6 % . [facility] No Panel InformationOrdered By: Floyd Bolton on 06-16-2022 Pharmacy Creatinine Clearance (Chem N/A [facility] Nucleated erythrocytes [Pres ence] in Blood by Automated countOrdered By: Floyd Bolton on 06-16-2022 Nucleated RBC Auto Ql (Bld) 0.1 /100{WBC} 0-0.5 [facility] Platelet mean volume Auto (B ld) [Entitic vol]Ordered By: Floyd Bolton on 06-16-2022 Platelet mean volume (Bld) [Entitic vol] 9.0 fL 6.6-10.1 [facility] Platelets Auto (Bld) [#/Vol] Ordered By: Floyd Bolton on 06-16-2022 Platelets (Bld) [#/Vol] 211 10*3/uL 150-450 [facility] Potassium [Moles/volume] in Serum or PlasmaOrdered By: Floyd Bolton on 06-16-2022 Potassium [Moles/Vol] 4.3 mmol/L 3.5-5.1 [facility] Protein [Mass/volume] in Ser um or PlasmaOrdered By: Floyd Bolton on 06-16-2022 Protein [Mass/Vol] 6.6 g/dL 6.4-8.9 [facility] RBC Auto (Bld) [#/Vol]Ordere d By: Floyd Bolton on 06-16-2022 RBC (Bld) [#/Vol] 3.90 10*6/uL 3.90-5.60 [facility] Serum or plasma albumin/glob ulin mass ratioOrdered By: Floyd Bolton on 06-16-2022 Albumin/Globulin [Mass ratio] 1.4 {ratio} [facility] Serum or plasma anion gap de terminationOrdered By: Floyd Bolton on 06-16-2022 Anion gap [Moles/Vol] 11.7 mmol/L 6.0-15.0 [facility] Sodium [Moles/volume] in Ser um or PlasmaOrdered By: Floyd Bolton on 06-16-2022 Sodium [Moles/Vol] 138 mmol/L 136-145 [facility] Urea nitrogen [Mass/volume] in Serum or PlasmaOrdered By: Floyd Bolton on 06-16-2022 Urea nitrogen [Mass/Vol] 21 mg/dL 7-25 [facility] WBC Auto (Bld) [#/Vol]Ordere d By: Floyd Bolton on 06-16-2022 WBC (Bld) [#/Vol] 6.6 10*3/uL 4.1-10.5 [facility] Physician Referralon 023 Physician Referral [id number]:12 7 [facility] Consent for Procedure/Surger yon 06-04-2022 Consent for Procedure/Surgery [id number]:12 7 [facility] Facesheeton 06-04-2022 Facesheet [id number]:12 7 [facility] Ambulatory Visit Summaryon 0 06-03-2022 Ambulatory Visit Summary SHAHID SANCHEZ :1940 Visit Date:06/03/2022 Ambulatory Visit Instructions Your Diagnosis Positive colorectal cancer screening using Cologuard test Personal history of colon cancer, stage II Your Care Team Attending Physician - MARGARITA CABRERA, Yovany Lopez Primary Care Physician - AL RAYMUNDO JR, DO This Is Your Medications List Contact prescribing physician if questions or concerns apixaban (Eliquis 5 mg oral tablet) cholecalciferol (Vitamin D3 2000 intl units) colesevelam (Welchol 625 mg Tab) cyanocobalamin (Vitamin B12 100 mcg oral tablet) dapagliflozin (Farxiga 10 mg oral tablet) dutasteride (Avodart 0.5 mg Cap) finerenone (Kerendia 20 mg oral tablet) folic acid infliximab (Remicade) ipratropium nasal (Atrovent 0.03% [place]) levothyroxine (Synthroid 50 mcg Tab) metformin (metformin 850 mg Tab) methotrexate montelukast (Singulair 10 mg Tab) rosuvastatin (Crestor 10 mg Tab) sacubitril-valsartan (Entresto 24 mg-26 mg oral tablet) semaglutide (Ozempic) terbinafine (terbinafine 250 mg Tab) Procedures Performed Exploratory laparotomy (05/02/2018), Right hemicolectomy (05/02/2018), Colonoscopy (04/28/2018), Colonoscopy (12/10/2017), Laparoscopic cholecystectomy (01/2017), Repair of umbilical hernia (01/2017), Colonoscopy (12/15/2012), Colonoscopy (02/07/2009), Colonoscopy (02/02/2008), Arthroplasty of knee, Arthroplasty of right knee, Rotator cuff repair, Rotator cuff repair. Discharge Vitals Heart Rate (Peripheral) 70 Respiratory Rate 16 Blood Pressure 130/80 Height 185.4 cm Height 73 in Weight 102 kg Weight 224.4 lb BMI 29.67 Medications What How Much When Instructions Unchanged apixaban (Eliquis 5 mg oral tablet) 1 Tablets By Mouth 2 times a day Contact prescribing physician if questions or concerns Unchanged cholecalciferol (Vitamin D3 2000 intl units) 1 Tablets By Mouth Every day Contact prescribing physician if questions or concerns Unchanged colesevelam (Welchol 625 mg Tab) 1 Tablets By Mouth Every day Contact prescribing physician if questions or concerns Unchanged cyanocobalamin (Vitamin B12 100 mcg oral tablet) 1 Tablets By Mouth Every day Contact prescribing physician if questions or concerns Unchanged dapagliflozin (Farxiga 10 mg oral tablet) 1 Tablets By Mouth Every day Contact prescribing physician if questions or concerns Unchanged dutasteride (Avodart 0.5 mg Cap) 1 Capsules By Mouth Every day Contact prescribing physician if questions or concerns Unchanged finerenone (Kerendia 20 mg oral tablet) 1 Tablets By Mouth Every day Contact prescribing physician if questions or concerns Unchanged folic acid as diretced Contact prescribing physician if questions or concerns Unchanged infliximab (Remicade) as directed Contact prescribing physician if questions or concerns Unchanged ipratropium nasal (Atrovent 0.03% [place]) 2 Sprays Nasal Inhalation 3 times a day Contact prescribing physician if questions or concerns Unchanged levothyroxine (Synthroid 50 mcg Tab) 1 Tablets By Mouth Every day Contact prescribing physician if questions or concerns Unchanged metformin (metformin 850 mg Tab) 1 Tablets By Mouth Every day Contact prescribing physician if questions or concerns Unchanged methotrexate as directed Contact prescribing physician if questions or concerns Unchanged montelukast (Singulair 10 mg Tab) Contact prescribing physician if questions or concerns Unchanged rosuvastatin (Crestor 10 mg Tab) 1 Tablets By Mouth Every day Contact prescribing physician if questions or concerns Unchanged sacubitril-valsartan (Entresto 24 mg-26 mg oral tablet) 1 Tablets By Mouth 2 times a day Contact prescribing physician if questions or concerns Unchanged semaglutide (Ozempic) Contact prescribing physician if questions or concerns Unchanged terbinafine (terbinafine 250 mg Tab) use one week per month Contact prescribing physician if questions or concerns Allergies No Known Allergies No Known Medication Allergies Problems Ongoing - Any problem that you are currently receiving treatment for. 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:12 7 [facility] Basophils Auto (Bld) [#/Vol] Ordered By: Floyd Bolton on 04-21-2022 Basophils (Bld) [#/Vol] 0.1 10*3/uL 0.0-0.2 [facility] Basophils/100 WBC Auto (Bld) Ordered By: Floyd Bolton on 04-21-2022 Basophils/100 WBC (Bld) 0.9 % . [facility] Body fluid albumin measureme nt (mass/volume)Ordered By: Floyd Bolton on 04-21-2022 Albumin (Body fld) [Mass/Vol] 3.4 g/dL 3.2-5.5 [facility] Creatinine and Glomerular fi ltration rate.predicted panel (S/P/Bld)Ordered By: Floyd Bolton on 04-21-2022 Creatinine [Mass/Vol] 1.12 mg/dL 0.64-1.27 [facility] Eosinophils Auto (Bld) [#/Vo l]Ordered By: Floyd Bolton on 04-21-2022 Eosinophils (Bld) [#/Vol] 0.2 10*3/uL 0.0-0.45 [facility] Eosinophils/100 WBC Auto (Bl d)Ordered By: Floyd Bolton on 04-21-2022 Eosinophils/100 WBC (Bld) 2.8 % . [facility] Erythrocyte distribution wid th Auto (RBC) [Ratio]Ordered By: Floyd Bolton on 04-21-2022 Erythrocyte distribution width (RBC) [Ratio] 16.1 % 12.0-14.8 [facility] Erythrocyte sedimentation ra te by Photometric methodOrdered By: Floyd Bolton on 04-21-2022 ESR Photometric method (Bld) [Velocity] 25 mm/hr 0-19 [facility] Estimated glomerular filtrat ion rate (GFR) non- AmericanOrdered By: Floyd Bolton on 04-21-2022 GFR/1.73 sq M.predicted among non-blacks MDRD (S/P/Bld) [Vol rate/Area] > 60 mL/Min [facility] Globulin Calc (S) [Mass/Vol] Ordered By: Floyd Bolton on 04-21-2022 Globulin (S) [Mass/Vol] 3.2 g/dL [facility] Hematocrit Auto (Bld) [Volum e fraction]Ordered By: Floyd Bolton on 04-21-2022 Hematocrit (Bld) [Volume fraction] 36.1 % 38.8-50.0 [facility] Hemoglobin [Mass/volume] in BloodOrdered By: Floyd Bolton on 04-21-2022 Hemoglobin (Bld) [Mass/Vol] 12.2 g/dL 13.0-17.0 [facility] Leukocytes [#/volume] correc liborio for nucleated erythrocytes in Blood by Automated counOrdered By: Floyd Bolton on 04-21-2022 WBC corrected for nucl RBC Auto (Bld) [#/Vol] 6.6 10*3/uL 4.1-10.5 [facility] Lymphocytes Auto (Bld) [#/Vo l]Ordered By: Floyd Bolton on 04-21-2022 Lymphocytes (Bld) [#/Vol] 1.3 10*3/uL 1.00-4.8 [facility] Lymphocytes/100 WBC Auto (Bl d)Ordered By: Floyd Bolton on 04-21-2022 Lymphocytes/100 WBC (Bld) 20.5 % . [facility] MCH Auto (RBC) [Entitic mass ]Ordered By: Floyd Bolton on 04-21-2022 MCH (RBC) [Entitic mass] 32.5 pg 27.5-35.2 [facility] MCHC Auto (RBC) [Mass/Vol]Or dered By: Floyd Bolton on 04-21-2022 MCHC (RBC) [Mass/Vol] 33.8 g/dL 32.5-35.6 [facility] MCV Auto (RBC) [Entitic vol] Ordered By: Floyd Bolton on 04-21-2022 MCV (RBC) [Entitic vol] 96.4 fL 83.5-101 [facility] Monocytes Auto (Bld) [#/Vol] Ordered By: Floyd Bolton on 04-21-2022 Monocytes (Bld) [#/Vol] 0.4 10*3/uL 0.0-0.8 [facility] Monocytes/100 WBC Auto (Bld) Ordered By: Floyd Bolton on 04-21-2022 Monocytes/100 WBC (Bld) 6.0 % . [facility] Neutrophils Auto (Bld) [#/Vo l]Ordered By: Floyd Bolton on 04-21-2022 Neutrophils (Bld) [#/Vol] 4.6 10*3/uL 1.8-7.7 [facility] Neutrophils/100 WBC Auto (Bl d)Ordered By: Floyd Bolton on 04-21-2022 Neutrophils/100 WBC (Bld) 69.8 % . [facility] No Panel InformationOrdered By: Floyd Bolton on 04-21-2022 Estimated GFR () > 60 mL/Min [facility] Comment on above: GFR estimated refere nce range: According to KDOQI guidelines, <60 ml/min/1.73m2 is sufficient to diagnose a patient with chronic kidney disease. Pharmacy Creatinine Clearance (Chem N/A [facility] Nucleated erythrocytes [Pres ence] in Blood by Automated countOrdered By: Floyd Bolton on 04-21-2022 Nucleated RBC Auto Ql (Bld) 0.1 /100{WBC} 0-0.5 [facility] Platelet mean volume Auto (B ld) [Entitic vol]Ordered By: Floyd Bolton on 04-21-2022 Platelet mean volume (Bld) [Entitic vol] 9.2 fL 6.6-10.1 [facility] Platelets Auto (Bld) [#/Vol] Ordered By: Floyd Bolton on 04-21-2022 Platelets (Bld) [#/Vol] 202 10*3/uL 150-450 [facility] Protein [Mass/volume] in Ser um or PlasmaOrdered By: Floyd Bolton on 04-21-2022 Protein [Mass/Vol] 6.6 g/dL 6.1-7.9 [facility] RBC Auto (Bld) [#/Vol]Ordere d By: Floyd Bolton on 04-21-2022 RBC (Bld) [#/Vol] 3.74 10*6/uL 3.90-5.60 [facility] Serum or plasma alanine cortez otransferase measurement without P-5'-P (enzymatic activiOrdered By: Floyd Bolton on 04-21-2022 ALT No additional P-5'-P [Catalytic activity/Vol] 68 U/L 10-60 [facility] Serum or plasma albumin/glob ulin mass ratioOrdered By: Floyd Bolton on 04-21-2022 Albumin/Globulin [Mass ratio] 1.1 {ratio} [facility] Serum or plasma alkaline cm sphatase measurement (enzymatic activity/volume)Ordered By: Floyd Bolton on 04-21-2022 ALP [Catalytic activity/Vol] 45 U/L 32-92 [facility] Serum or plasma anion gap de terminationOrdered By: Floyd Bolton on 04-21-2022 Anion gap [Moles/Vol] 13.3 mmol/L 6.0-15.0 [facility] Serum or plasma aspartate am inotransferase measurement (enzymatic activity/volume)Ordered By: Floyd Bolton on 04-21-2022 AST [Catalytic activity/Vol] 64 U/L 10-42 [facility] Serum or plasma calcium wong urement (mass/volume)Ordered By: Floyd Bolton on 04-21-2022 Calcium [Mass/Vol] 9.1 mg/dL 8.2-10.2 [facility] Serum or plasma chloride fan surement (moles/volume)Ordered By: Floyd Bolton on 04-21-2022 Chloride [Moles/Vol] 105 mmol/L 95-114 [facility] Serum or plasma glucose wong urement (mass/volume)Ordered By: Floyd Bolton on 04-21-2022 Glucose [Mass/Vol] 165 mg/dL 70-100 [facility] Comment on above: ADA recommended refe rence rangeRandom Glucose Reference Range is dependent on time and content of last meal. Glucose of more than 200 mg/dL in a nonstressed, ambulatory subject supports the diagnosis of Diabetes Mellitus. Serum or plasma potassium me asurement (moles/volume)Ordered By: Floyd Bolton on 04-21-2022 Potassium [Moles/Vol] 4.1 mmol/L 3.5-5.1 [facility] Serum or plasma sodium measu rement (moles/volume)Ordered By: Floyd Bolton on 04-21-2022 Sodium [Moles/Vol] 135 mmol/L 136-146 [facility] Serum or plasma total biliru bin measurement (mass/volume)Ordered By: Floyd Bolton on 04-21-2022 Bilirubin [Mass/Vol] 0.7 mg/dL 0.3-1.2 [facility] Serum or plasma total carbon dioxide measurement (moles/volume)Ordered By: Floyd Bolton on 04-21-2022 CO2 [Moles/Vol] 20.8 mmol/L 22.0-30.0 [facility] Serum or plasma urea nitroge n measurement (mass/volume)Ordered By: Floyd Bolton on 04-21-2022 Urea nitrogen [Mass/Vol] 14 mg/dL 9 [facility] WBC Auto (Bld) [#/Vol]Ordere d By: Floyd Bolton on 04-21-2022 WBC (Bld) [#/Vol] 6.6 10*3/uL 4.1-10.5 [facility] Albumin [Mass/volume] in Ser um or PlasmaOrdered By: Floyd Bolton on 12-09-2021 Albumin [Mass/Vol] 3.0 g/dL 3.2-5.5 [facility] Basophils Auto (Bld) [#/Vol] Ordered By: Floyd Bolton on 12-09-2021 Basophils (Bld) [#/Vol] 0.0 10*3/uL 0.0-0.2 [facility] Basophils/100 WBC Auto (Bld) Ordered By: Floyd Bolton on 12-09-2021 Basophils/100 WBC (Bld) 0.3 % . [facility] Blood hemoglobin measurement (mass/volume)Ordered By: Floyd Bolton on 12-09-2021 Hemoglobin (Bld) [Mass/Vol] 12.7 g/dL 13.0-17.0 [facility] Blood leukocytes automated c ount (number/volume)Ordered By: Floyd Bolton on 12-09-2021 WBC (Bld) [#/Vol] 4.9 10*3/uL 4.5-11.0 [facility] Creatinine and Glomerular fi ltration rate.predicted panel (S/P/Bld)Ordered By: Floyd Bolton on 12-09-2021 Creatinine [Mass/Vol] 1.27 mg/dL 0.64-1.27 [facility] Eosinophils Auto (Bld) [#/Vo l]Ordered By: Floyd Bolton on 12-09-2021 Eosinophils (Bld) [#/Vol] 0.1 10*3/uL 0.0-0.45 [facility] [facility] Eosinophils/100 WBC Auto (Bl d)Ordered By: Floyd Bolton on 12-09-2021 Eosinophils/100 WBC (Bld) 2.7 % . [facility] Erythrocyte distribution wid th Auto (RBC) [Ratio]Ordered By: Floyd Bolton on 12-09-2021 Erythrocyte distribution width (RBC) [Ratio] 16.5 % 12.0-14.8 [facility] Erythrocyte sedimentation ra te by Photometric methodOrdered By: Floyd Bolton on 12-09-2021 ESR Photometric method (d) [Velocity] 23 mm/hr 0-19 [facility] Estimated glomerular filtrat ion rate (GFR) non- AmericanOrdered By: Floyd Bolton on 12-09-2021 GFR/1.73 sq M.predicted among non-blacks MDRD (S/P/Bld) [Vol rate/Area] 55 mL/Min [facility] Globulin Calc (S) [Mass/Vol] Ordered By: Floyd Bolton on 12-09-2021 Globulin (S) [Mass/Vol] 3.1 g/dL [facility] Hematocrit Auto (Bld) [Volum e fraction]Ordered By: Floyd Bolton on 12-09-2021 Hematocrit (Bld) [Volume fraction] 37.2 % 38.8-50.0 [facility] Laboratory - Hematology and Cell countsOrdered By: Floyd Bolton on 12-09-2021 Nucleated RBC/100 WBC (Bld) [Ratio] 0.1 % 0-0.5 [facility] Lymphocytes Auto (Bld) [#/Vo l]Ordered By: Floyd Bolton on 12-09-2021 Lymphocytes (Bld) [#/Vol] 0.8 10*3/uL 1.00-4.8 [facility] Lymphocytes/100 WBC Auto (Bl d)Ordered By: Floyd Bolton on 12-09-2021 Lymphocytes/100 WBC (Bld) 16.5 % . [facility] MCH Auto (RBC) [Entitic mass ]Ordered By: Floyd Bolton on 12-09-2021 MCH (RBC) [Entitic mass] 32.3 pg 27.5-35.2 [facility] MCHC Auto (RBC) [Mass/Vol]Or dered By: Floyd Bolton on 12-09-2021 MCHC (RBC) [Mass/Vol] 34.0 g/dL 32.5-35.6 [facility] MCV Auto (RBC) [Entitic vol] Ordered By: Floyd Bolton on 12-09-2021 MCV (RBC) [Entitic vol] 94.9 fL 83.5-101 [facility] Monocytes Auto (Bld) [#/Vol] Ordered By: Floyd Bolton on 12-09-2021 Monocytes (Bld) [#/Vol] 0.6 10*3/uL 0.0-0.8 [facility] Monocytes/100 WBC Auto (Bld) Ordered By: Floyd Bolton on 12-09-2021 Monocytes/100 WBC (Bld) 11.6 % . [facility] Neutrophils Auto (Bld) [#/Vo l]Ordered By: Floyd Bolton on 12-09-2021 Neutrophils (Bld) [#/Vol] 3.4 10*3/uL 1.8-7.7 [facility] Neutrophils/100 WBC Auto (Bl d)Ordered By: Floyd Bolton on 12-09-2021 Neutrophils/100 WBC (Bld) 68.9 % . [facility] No Panel InformationOrdered By: Floyd Bolton on 12-09-2021 Estimated GFR () > 60 mL/Min [facility] Comment on above: GFR estimated refere nce range: According to KDOQI guidelines, <60 ml/min/1.73m2 is sufficient to diagnose a patient with chronic kidney disease. Pharmacy Creatinine Clearance (Chem N/A [facility] Platelet mean volume Auto (B ld) [Entitic vol]Ordered By: Floyd Bolton on 12-09-2021 Platelet mean volume (Bld) [Entitic vol] 8.9 fL 6.6-10.1 [facility] Platelets Auto (Bld) [#/Vol] Ordered By: Floyd Bolton on 12-09-2021 Platelets (Bld) [#/Vol] 181 10*3/uL 150-450 [facility] Protein [Mass/volume] in Ser um or PlasmaOrdered By: Floyd Bolton on 12-09-2021 Protein [Mass/Vol] 6.1 g/dL 6.1-7.9 [facility] RBC Auto (Bld) [#/Vol]Ordere d By: Floyd Bolton on 12-09-2021 RBC (Bld) [#/Vol] 3.92 10*6/uL 3.90-5.60 [facility] Serum or plasma alanine cortez otransferase measurement without P-5'-P (enzymatic activiOrdered By: Floyd Bolton on 12-09-2021 ALT No additional P-5'-P [Catalytic activity/Vol] 16 U/L 10-60 [facility] Serum or plasma albumin/glob ulin mass ratioOrdered By: Floyd Bolton on 12-09-2021 Albumin/Globulin [Mass ratio] 1.0 {ratio} [facility] Serum or plasma alkaline cm sphatase measurement (enzymatic activity/volume)Ordered By: Floyd Bolton on 12-09-2021 ALP [Catalytic activity/Vol] 48 U/L 32-92 [facility] Serum or plasma anion gap de terminationOrdered By: Floyd Bolton on 12-09-2021 Anion gap [Moles/Vol] 15.9 mmol/L 6.0-15.0 [facility] Serum or plasma aspartate am inotransferase measurement (enzymatic activity/volume)Ordered By: Floyd Bolton on 12-09-2021 AST [Catalytic activity/Vol] 20 U/L 10-42 [facility] Serum or plasma calcium wong urement (mass/volume)Ordered By: Floyd Bolton on 12-09-2021 Calcium [Mass/Vol] 9.1 mg/dL 8.2-10.2 [facility] Serum or plasma chloride fan surement (moles/volume)Ordered By: Floyd Bolton on 12-09-2021 Chloride [Moles/Vol] 104 mmol/L 95-114 [facility] Serum or plasma glucose wong urement (mass/volume)Ordered By: Floyd Bolton on 09-13-2022 Glucose [Mass/Vol] 162 mg/dL 70-100 [facility] Comment on above: ADA recommended refe rence range Random Glucose Reference Range is dependent on time and content of last meal. Glucose of more than 200 mg/dL in a nonstressed, ambulatory subject supports the diagnosis of Diabetes Mellitus. Serum or plasma potassium me asurement (moles/volume)Ordered By: Floyd Bolton on 12-09-2021 Potassium [Moles/Vol] 4.0 mmol/L 3.5-5.1 [facility] Serum or plasma sodium measu rement (moles/volume)Ordered By: Floyd Bolton on 12-09-2021 Sodium [Moles/Vol] 136 mmol/L 136-146 [facility] Serum or plasma total biliru bin measurement (mass/volume)Ordered By: Floyd Bolton on 12-09-2021 Bilirubin [Mass/Vol] 1.2 mg/dL 0.3-1.2 [facility] Serum or plasma total carbon dioxide measurement (moles/volume)Ordered By: Floyd Bolton on 12-09-2021 CO2 [Moles/Vol] 20.1 mmol/L 22.0-30.0 [facility] Serum or plasma urea nitroge n measurement (mass/volume)Ordered By: Floyd Bolton on 12-09-2021 Urea nitrogen [Mass/Vol] 23 mg/dL - [facility] BNPon 10-22-2021 Natriuretic peptide B (Bld) [Mass/Vol] 4537.0 pg/mL Critically high <=1,800.[address] [facility] Comment on above: Performed By: #### C MADM, CRP, BNP, CMP #### [facility] [address] [address] [address] Thomas Rudd CARDIAC JOHANNY ADMITon 022 CK [Catalytic activity/Vol] 76 U/L Normal 39-[address] [facility] Comment on above: Performed By: #### C MADM, CRP, BNP, CMP #### [facility] [address] [place], [place] [address] Dr. Thomas Rudd CK.MB [Mass/Vol] 0.66 ng/mL Normal <=3.[address] [facility] Comment on above: Performed By: #### C MADM, CRP, BNP, CMP #### [facility] [address] [address] [address] Thomas Rdud HSTROP 22.8 pg/mL Normal 4.0-76.[address] [facility] Comment on above: Result Comment: CUT- OFF POINTS HAVE BEEN ESTABLISHED BASED ON THE FOURTH UNIVERSAL DEFINITIONS OF MYOCARDIAL INFARCTION. THE UPPER REFERENCE LIMIT (URL) OF TROPONIN, DEFINED THE 99TH PERCENTILE OF cTnI DISTRIBUTION IN A REFERENCE POPULATION, HAS BEEN CONFIRMED THE DECISION THRESHOLD FOR CO DIAGNOSIS. Performed By: #### C MADM, CRP, BNP, CMP #### [facility] [address] [address] [address] Thomas Rudd LUCY 184 ng/mL Critically high 16-[address] [facility] Comment on above: Performed By: #### C MADM, CRP, BNP, CMP #### [facility] [address] [address] [address] Thomas Rudd CBC AUTO DIFFon 10-22-2021 BASO # 0.0 103/ul Normal 0.0-0.[address] [facility] Comment on above: Performed By: #### C BC ####[facility] [address] [address]DrDorcas Rudd Basophils/100 WBC (Bld) 0.1 % Critically low 0.2-2.[address] [facility] Comment on above: Performed By: #### C BC ####[facility] [address] [address]Dr. Thomas Rudd EO # 0.0 103/ul Normal 0.0-0.[address] [facility] Comment on above: Performed By: #### C BC ####[facility] [address] [address]Dr. Thomas Rudd Eosinophils/100 WBC (Bld) 0.0 % Critically low 0.9-7.[address] [facility] Comment on above: Performed By: #### C BC ####[facility] [address] [address]Dr. Thomas Rudd Erythrocyte distribution width (RBC) [Ratio] 15.9 % Critically high 11.0-15.[address] [facility] Comment on above: Performed By: #### C BC ####[facility] [address] [address]DrDorcas Rudd Hematocrit (Bld) [Volume fraction] 34.8 % Critically low 42.0-54.[address] [facility] Comment on above: Performed By: #### C BC ####[facility] [address] [place], [place] [address]DrDorcas Rudd Hemoglobin (Bld) [Mass/Vol] 12.0 g/dL Critically low 14.0-18.[address] [facility] Comment on above: Performed By: #### C BC ####[facility] [address] [place], [place] [address]DrDorcas Rudd IG # 0.15 10e3/ul Critically high 0.00-0.[address] [facility] Comment on above: Performed By: #### C BC ####[facility] [address] [place], [place] [address]DrDorcas Rudd IG % 0.9 % Critically high 0.0-0.[address] [facility] Comment on above: Performed By: #### C BC ####[facility] [address] [place], [place] [address]DrDorcas Rudd LYMPH # 0.9 103/ul Critically low 1.2-3.[address] [facility] Comment on above: Performed By: #### C BC ####[facility] [address] [place], [place] [address]DrDorcas Rudd Lymphocytes/100 WBC (Bld) 5.7 % Critically low 20.5-60.[address] [facility] Comment on above: Performed By: #### C BC ####[facility] [address] [place], [place] [address]DrDorcas Rudd MANUAL DIFF REQ NO Normal [facility] Comment on above: Performed By: #### C BC ####[facility] [address] [place], [place] [address]DrDorcas Rudd MCH (RBC) [Entitic mass] 32.4 pg Normal 25.9-34.[address] [facility] Comment on above: Performed By: #### C BC ####[facility] [address] [address]DrDorcas Rudd MCHC (RBC) [Mass/Vol] 34.5 g/dL Normal 29.9-35.[address] [facility] Comment on above: Performed By: #### C BC ####[facility] [address] [address]DrDorcas Rudd MCV (RBC) [Entitic vol] 94.1 fL Critically high 80.0-94.[address] [facility] Comment on above: Performed By: #### C BC ####[facility] [address] [place], [place] [address]DrDorcas Rudd MONO # 1.4 103/ul Critically high 0.3-0.[address] [facility] Comment on above: Performed By: #### C BC ####[facility] [address] [place], [place] [address]DrDorcas Rudd Monocytes/100 WBC (Bld) 8.6 % Normal 1.7-12.[address] [facility] Comment on above: Performed By: #### C BC ####[facility] [address] [place], [place] [address]DrDorcas Rudd NEUT # 13.6 103/ul Critically high 1.4-6.[address] [facility] Comment on above: Performed By: #### C BC ####[facility] [address] [place], [place] [address]DrDorcas Rudd Neutrophils/100 WBC (Bld) 84.7 % Critically high 43.0-75.[address] [facility] Comment on above: Performed By: #### C BC ####[facility] [address] [place], [place] [address]DrDorcas Rudd Platelet mean volume (Bld) [Entitic vol] 10.7 fL Normal 9.5-13.[address] [facility] Comment on above: Performed By: #### C BC ####[facility] [address] [place], [place] [address]Dr. Thomas Rudd PLT 190 103/ul Normal 150-[address] [facility] Comment on above: Performed By: #### C BC ####[facility] [address] [id number][address] Thomas Rudd RBC 3.70 106/ul Critically low 4.70-6.[address] [facility] Comment on above: Performed By: #### C BC ####[facility] [address] [id number] Thomas Rudd WBC 16.1 103/ul Critically high 4.0-11.[address] [facility] Comment on above: Performed By: #### C BC ####[facility] [address] [address]Dr. Thomas Rudd CRPon 10-22-2021 CRP 12.6 mg/dL Critically high <=1.[address] [facility] Comment on above: Performed By: #### C MADM, CRP, BNP, CMP #### [facility] [address] [place] [address] Dr. Thomas Rudd CULTURE BLOODon 10-22-2021 Microscopic examination of blood, culture Culture Observations: NO GROWTH AT [address] [facility] Comment on above: Performed By: #### B LDCX2 #### [facility] [address] [place] [address] Dr. Thomas Rudd Microscopic examination of blood, culture Culture Observations: NO GROWTH AT [address] [facility] Comment on above: Performed By: #### B LDCX1 ####[facility] [address] [address]Dr. Thomas Rudd Covid-19 PCR (CVDTB)on 09-27 SARS-CoV-2 (COVID-19) RNA KRISTIE+probe Ql (Unsp spec) Not detected Normal NOT DETECTED [facility] Comment on above: Result Comment: When diagnostic testing is negative, the possibility of a false negative should be considered in the context of a patient's recent exposures and the presence of clinical signs and symptoms consistent with SARS-CoV-2. This test is not yet approved or cleared by the [place] FDA. When there are no FDA-approved or cleared tests available, and other criteria are met, FDA can make tests available under an emergency access mechanism called an Emergency Use Authorization (EUA). The EUA for this test is supported by the Meat Cutter Apprentice of Health and Human Service's declaration that circumstances exist to justify the emergency use of in vitro diagnostics for the detection and/or diagnosis of the virus that causes COVID-19. This EUA will remain in effect for the duration of the COVID-19 declaration justifying emergency of IVDs, unless it is terminated or revoked by the FDA (after which the test may no longer be used). Performed By: #### C VDTBH ####[facility] [address] [address]Dr. Thomas Rudd LACTATE/LACTIC ACIDon 2021 Lactate [Moles/Vol] 1.5 mmol/L Normal 0.4-1.[address] [facility] Comment on above: Performed By: #### L ACT #### [facility] [address] [address] [address] Thomas Rudd PROF 14(COMP METB)on 022 Albumin [Mass/Vol] 3.1 g/dL Critically low 3.4-5.[address] [facility] Comment on above: Performed By: #### C MADM, CRP, BNP, CMP #### [facility] [address] [address] [address] Thomas Rudd Albumin/Globulin [Mass ratio] 0.9 {ratio} Normal [facility] Comment on above: Performed By: #### C MADM, CRP, BNP, CMP #### [facility] [address] [address] [address] Thomas Rudd ALP [Catalytic activity/Vol] 47 U/L Normal 46-[address] [facility] Comment on above: Performed By: #### C MADM, CRP, BNP, CMP #### [facility] [address] [address] [address] Thomas Rudd ALT [Catalytic activity/Vol] 14 U/L Critically low 16-[address] [facility] Comment on above: Performed By: #### C MADM, CRP, BNP, CMP #### [facility] [address] [place] [address] Dr. Thomas Rudd Anion gap [Moles/Vol] 13.9 mmol/L Normal [facility] Comment on above: Performed By: #### C MADM, CRP, BNP, CMP #### [facility] [address] [address] [address] Thomas Rudd AST [Catalytic activity/Vol] 17 U/L Normal 15-[address] [facility] Comment on above: Performed By: #### C MADM, CRP, BNP, CMP #### [facility] [address] [place] [address] Dr. Thomas Rudd Bilirubin [Mass/Vol] 2.9 mg/dL Critically high 0.2-1.[address] [facility] Comment on above: Performed By: #### C MADM, CRP, BNP, CMP #### [facility] [address] [place] [address] Dr. Thomas Rudd Calcium [Mass/Vol] 8.5 mg/dL Normal 8.5-10.[address] [facility] Comment on above: Performed By: #### C MADM, CRP, BNP, CMP #### [facility] [address] [place] [address] Dr. Thomas Rudd Chloride [Moles/Vol] 103 mmol/L Normal 98-[address] [facility] Comment on above: Performed By: #### C MADM, CRP, BNP, CMP #### [facility] [address] [place] [address] Dr. Thomas Rudd CO2 [Moles/Vol] 22.2 mmol/L Normal 21.0-32.[address] [facility] Comment on above: Performed By: #### C MADM, CRP, BNP, CMP #### [facility] [address] [place] [address] Dr. Thomas Rudd Creatinine [Mass/Vol] 1.51 mg/dL Critically high 0.70-1.[address] [facility] Comment on above: Performed By: #### C MADM, CRP, BNP, CMP #### [facility] [address] [place] [address] Dr. Thomas Rudd EGFR-AF SCOTTISH 54 mL/min/1.73m2 Critically low >=[address] [facility] Comment on above: Performed By: #### C MADM, CRP, BNP, CMP #### [facility] [address] [address] [address] Thomas Rudd EGFR-NON AF SCOTTISH 45 mL/min/1.73m2 Critically low >=[address] [facility] Comment on above: Performed By: #### C MADM, CRP, BNP, CMP #### [facility] [address] [address] [address] Thomas Rudd Globulin (S) [Mass/Vol] 3.5 g/dL Normal [facility] Comment on above: Performed By: #### C MADM, CRP, BNP, CMP #### [facility] [address] [place] [address] Dr. Thomas Rudd Glucose [Mass/Vol] 178 mg/dL Critically high 74-106 [facility] Comment on above: Performed By: #### C MADM, CRP, BNP, CMP #### [facility] [address] [address] [address] Thomas Rudd Potassium [Moles/Vol] 4.1 mmol/L Normal 3.5-5.[address] [facility] Comment on above: Performed By: #### C MADM, CRP, BNP, CMP #### [facility] [address] [place] [address] Dr. Thomas Rudd Protein [Mass/Vol] 6.6 g/dL Normal 6.4-8.[address] [facility] Comment on above: Performed By: #### C MADM, CRP, BNP, CMP #### [facility] [address] [address] [address] Thomas Rudd Sodium [Moles/Vol] 135 mmol/L Critically low 136-[address] [facility] Comment on above: Performed By: #### C MADM, CRP, BNP, CMP #### [facility] [address] [address] [address] Thomas Rudd Urea nitrogen [Mass/Vol] 19.0 mg/dL Critically high 7.0-18.[address] [facility] Comment on above: Performed By: #### C MADM, CRP, BNP, CMP #### [facility] [address] [place] [address] Dr. Thomas Rudd Urea nitrogen/Creatinine [Mass ratio] 12.6 mg/mg Normal [facility] Comment on above: Performed By: #### C MADM, CRP, BNP, CMP #### [facility] [address] [place] [address] Dr. Thomas Rudd PROTIMEon 10-22-2021 INR Coag (PPP) [Relative time] 1.24 {INR} Normal [facility] Comment on above: Performed By: #### P TT, PT #### [facility] [address] [place] [address] Dr. Thomas Rudd INR GUIDELINES SEE BELOW Normal [facility] Comment on above: Result Comment: MADHURI RED INR: 2.0 - 3.0 CONDITIONS NOT LISTED BELOW 2.5 - 3.5 FOR PROSTHETIC HEART VALVE REPLACEMENT 2.5 - 3.5 RECURRENT THROMBOSIS Performed By: #### P TT, PT #### [facility] [address] [place] [address] Dr. Thomas Rudd PT Coag (PPP) [Time] 13.2 s Critically high 9.0-11.[address] [facility] Comment on above: Performed By: #### P TT, PT #### [facility] [address] [place] [address] Dr. Thomas Rudd PTTon 10-22-2021 aPTT Coag (Bld) [Time] 38.6 s Critically high 22.3-36. [address] [facility] Comment on above: Performed By: #### P TT, PT #### [facility] [address] [place] [address] Dr. Thomas Rudd SED RATE STRONG CITYERGRENon 2021 SED RATE 33 mm/hr Critically high <=[address] [facility] Comment on above: Performed By: #### S EDR #### [facility] [address] [place] [address] Dr. Thomas Rudd TSHon 10-22-2021 TSH 1.538 uIU/mL Normal 0.358-3.[address] [facility] Comment on above: Performed By: #### T ####[facility] [address] [place], [place] [address]WrDorcas Rudd XR CHEST 1 Von 10-22-2021 XR CHEST 1 V EXAMINATION: XR CHES T 1 V HISTORY: Swelling , shortness breath COMPARISON: No relevant comparison available. FINDINGS: LUNGS: No significant pulmonary parenchymal abnormalities. VASCULATURE: No increased pulmonary vasculature. PLEURA: No pneumothorax, effusion, or pleural thickening. CARDIAC: Cardiomegaly. MEDIASTINUM: No visible mass or adenopathy. BONES: No fracture or visible bone lesion. OTHER: Negative. IMPRESSION: 1. No acute pulmonary process. 2. Cardiomegaly. No prior studies for comparison. Electronically authenticated by: JOCELINE HOUGH Date: 2021-10-22 12:[address] [facility] Albumin [Mass/volume] in Ser um or PlasmaOrdered By: Floyd Bolton on 08-07-2021 Albumin [Mass/Vol] 3.5 g/dL 3.2-5.5 [facility] Basophils Auto (Bld) [#/Vol] Ordered By: Floyd Bolton on 08-07-2021 Basophils (Bld) [#/Vol] 0.0 10*3/uL 0.0-0.2 [facility] Basophils/100 WBC Auto (Bld) Ordered By: Floyd Bolton on 08-07-2021 Basophils/100 WBC (Bld) 0.5 % [facility] Blood hemoglobin measurement (mass/volume)Ordered By: Floyd Bolton on 08-07-2021 Hemoglobin (Bld) [Mass/Vol] 13.3 g/dL 13.0-17.0 [facility] Blood leukocytes automated c ount (number/volume)Ordered By: Floyd Bolton on 08-07-2021 WBC (Bld) [#/Vol] 5.9 10*3/uL 4.5-11.0 [facility] Creatinine and Glomerular fi ltration rate.predicted panel (S/P/Bld)Ordered By: Floyd Bolton on 08-07-2021 Creatinine [Mass/Vol] 1.09 mg/dL 0.64-1.27 [facility] Eosinophils Auto (Bld) [#/Vo l]Ordered By: Floyd Bolton on 08-07-2021 Eosinophils (Bld) [#/Vol] 0.2 10*3/uL 0.0-0.45 [facility] Eosinophils/100 WBC Auto (Bl d)Ordered By: Floyd Bolton on 08-07-2021 Eosinophils/100 WBC (Bld) 3.0 % [facility] Erythrocyte distribution wid th Auto (RBC) [Ratio]Ordered By: Floyd Bolton on 08-07-2021 Erythrocyte distribution width (RBC) [Ratio] 16.1 % 12.0-14.8 [facility] Estimated glomerular filtrat ion rate (GFR) non- AmericanOrdered By: Floyd Bolton on 08-07-2021 GFR/1.73 sq M.predicted among non-blacks MDRD (S/P/Bld) [Vol rate/Area] > 60 mL/Min [facility] Globulin Calc (S) [Mass/Vol] Ordered By: Floyd Bolton on 08-07-2021 Globulin (S) [Mass/Vol] 2.8 g/dL [facility] Hematocrit Auto (Bld) [Volum e fraction]Ordered By: Floyd Bolton on 08-07-2021 Hematocrit (Bld) [Volume fraction] 38.5 % 38.8-50.0 [facility] - Hematology and Cell countsOrdered By: Floyd Bolton on 08-07-2021 Nucleated RBC/100 WBC (Bld) [Ratio] 0.0 % 0-0.5 [facility] Lymphocytes Auto (Bld) [#/Vo l]Ordered By: Floyd Bolton on 08-07-2021 Lymphocytes (Bld) [#/Vol] 1.0 10*3/uL 1.00-4.8 [facility] Lymphocytes/100 WBC Auto (Bl d)Ordered By: Floyd Bolton on 08-07-2021 Lymphocytes/100 WBC (Bld) 17.7 % [facility] MCH Auto (RBC) [Entitic mass ]Ordered By: Floyd Bolton on 08-07-2021 MCH (RBC) [Entitic mass] 32.6 pg 27.5-35.2 [facility] MCHC Auto (RBC) [Mass/Vol]Or dered By: Floyd Bolton on 08-07-2021 MCHC (RBC) [Mass/Vol] 34.6 g/dL 32.5-35.6 [facility] MCV Auto (RBC) [Entitic vol] Ordered By: Floyd Bolton on 08-07-2021 MCV (RBC) [Entitic vol] 94.1 fL 83.5-101 [facility] Monocytes Auto (Bld) [#/Vol] Ordered By: Floyd Bolton on 08-07-2021 Monocytes (Bld) [#/Vol] 0.6 10*3/uL 0.0-0.8 [facility] Monocytes/100 WBC Auto (Bld) Ordered By: Floyd Bolton on 08-07-2021 Monocytes/100 WBC (Bld) 9.4 % [facility] Neutrophils Auto (Bld) [#/Vo l]Ordered By: Floyd Bolton on 08-07-2021 Neutrophils (Bld) [#/Vol] 4.1 10*3/uL 1.8-7.7 [facility] Neutrophils/100 WBC Auto (Bl d)Ordered By: Floyd Bolton on 08-07-2021 Neutrophils/100 WBC (Bld) 69.4 % [facility] No Panel InformationOrdered By: Floyd Bolton on 08-07-2021 Estimated GFR () > 60 mL/Min [facility] Comment on above: GFR estimated refere nce range: According to KDOQI guidelines, <60 ml/min/1.73m2 is sufficient to diagnose a patient with chronic kidney disease. Pharmacy Creatinine Clearance (Chem N/A [facility] No Panel InformationOrdered By: Al Raymundo on 08-07-2021 Prostate Specific Antigen Screen 0.510 ng/mL 0.000-4.000 [facility] Platelet mean volume Auto (B ld) [Entitic vol]Ordered By: Floyd Bolton on 08-07-2021 Platelet mean volume (Bld) [Entitic vol] 8.6 fL 6.6-10.1 [facility] Platelets Auto (Bld) [#/Vol] Ordered By: Floyd Bolton on 08-07-2021 Platelets (Bld) [#/Vol] 198 10*3/uL 150-450 [facility] Protein [Mass/volume] in Ser um or PlasmaOrdered By: Floyd Bolton on 08-07-2021 Protein [Mass/Vol] 6.3 g/dL 6.1-7.9 [facility] RBC Auto (Bld) [#/Vol]Ordere d By: Floyd Bolton on 08-07-2021 RBC (Bld) [#/Vol] 4.10 10*6/uL 3.90-5.60 [facility] Serum or plasma alanine cortez otransferase measurement without P-5'-P (enzymatic activiOrdered By: Floyd Bolton on 08-07-2021 ALT No additional P-5'-P [Catalytic activity/Vol] 23 U/L 10-60 [facility] Serum or plasma albumin/glob ulin mass ratioOrdered By: Floyd Bolton on 08-07-2021 Albumin/Globulin [Mass ratio] 1.3 {ratio} [facility] Serum or plasma alkaline cm sphatase measurement (enzymatic activity/volume)Ordered By: Floyd Bolton on 08-07-2021 ALP [Catalytic activity/Vol] 52 U/L 32-92 [facility] Serum or plasma aspartate am inotransferase measurement (enzymatic activity/volume)Ordered By: Floyd Bolton on 08-07-2021 AST [Catalytic activity/Vol] 25 U/L 10-42 [facility] Serum or plasma calcium wong urement (mass/volume)Ordered By: Floyd Bolton on 08-07-2021 Calcium [Mass/Vol] 9.0 mg/dL 8.2-10.2 [facility] Serum or plasma chloride fan surement (moles/volume)Ordered By: Floyd Bolton on 08-07-2021 Chloride [Moles/Vol] 104 mmol/L 95-114 [facility] Serum or plasma glucose wong urement (mass/volume)Ordered By: Floyd Bolton on 08-07-2021 Glucose [Mass/Vol] 114 mg/dL 70-100 [facility] Comment on above: ADA recommended refe rence range Random Glucose Reference Range is dependent on time and content of last meal. Glucose of more than 200 mg/dL in a nonstressed, ambulatory subject supports the diagnosis of Diabetes Mellitus. Serum or plasma potassium me asurement (moles/volume)Ordered By: Floyd Bolton on 08-07-2021 Potassium [Moles/Vol] 4.0 mmol/L 3.5-5.1 [facility] Serum or plasma sodium measu rement (moles/volume)Ordered By: Floyd Bolton on 08-07-2021 Sodium [Moles/Vol] 137 mmol/L 136-146 [facility] Serum or plasma total biliru bin measurement (mass/volume)Ordered By: Floyd Bolton on 08-07-2021 Bilirubin [Mass/Vol] 1.5 mg/dL 0.3-1.2 [facility] Comment on above: Samples from patient s who have taken Naproxen have shown spurious elevation in Total Bilirubin levels. A metabolite of Naproxen, O-desmethylnaproxen, has been shown to interfere with the Femi-Batsheva method for measuring Total Bilirubin. Serum or plasma total carbon dioxide measurement (moles/volume)Ordered By: Floyd Bolton on 08-07-2021 CO2 [Moles/Vol] 22.9 mmol/L 22.0-30.0 [facility] Serum or plasma urea nitroge n measurement (mass/volume)Ordered By: Floyd Bolton on 08-07-2021 Urea nitrogen [Mass/Vol] 17 mg/dL 9-23 [facility] Albumin [Mass/volume] in Ser um or Plasmaon 08-22-2020 Albumin [Mass/Vol] 3.6 g/dL 3.2-5.5 [facility] Basophils Auto (Bld) [#/Vol] on 08-22-2020 Basophils (Bld) [#/Vol] 0.0 10*3/uL 0.0-0.2 [facility] Basophils/100 WBC Auto (Bld) on 08-22-2020 Basophils/100 WBC (Bld) 0.2 % [facility] Blood hemoglobin measurement (mass/volume)on 08-22-2020 Hemoglobin (Bld) [Mass/Vol] 12.3 g/dL 13.0-17.0 [facility] Blood leukocytes automated c ount (number/volume)on 08-22-2020 WBC (Bld) [#/Vol] 5.8 10*3/uL 4.5-11.0 [facility] Creatinine and Glomerular fi ltration rate.predicted panel (S/P/Bld)on 08-22-2020 Creatinine [Mass/Vol] 1.33 mg/dL 0.64-1.27 [facility] Eosinophils Auto (Bld) [#/Vo l]on 08-22-2020 Eosinophils (Bld) [#/Vol] 0.1 10*3/uL 0.0-0.45 [facility] Eosinophils/100 WBC Auto (Bl d)on 08-22-2020 Eosinophils/100 WBC (Bld) 2.2 % [facility] Erythrocyte distribution wid th Auto (RBC) [Ratio]on 08-22-2020 Erythrocyte distribution width (RBC) [Ratio] 15.7 % 12.0-14.8 [facility] Erythrocyte sedimentation ra te by Photometric methodon 08-22-2020 ESR Photometric method (Bld) [Velocity] 19 mm/hr 0-19 [facility] Estimated glomerular filtrat ion rate (GFR) non- Americanon 08-22-2020 GFR/1.73 sq M.predicted among non-blacks MDRD (S/P/Bld) [Vol rate/Area] 52 mL/Min [facility] Globulin Calc (S) [Mass/Vol] on 08-22-2020 Globulin (S) [Mass/Vol] 2.8 g/dL [facility] Hematocrit Auto (Bld) [Volum e fraction]on 08-22-2020 Hematocrit (Bld) [Volume fraction] 36.6 % 38.8-50.0 [facility] Laboratory - Hematology and Cell countson 08-22-2020 Nucleated RBC/100 WBC (Bld) [Ratio] 0.1 % 0-0.5 [facility] Lymphocytes Auto (Bld) [#/Vo l]on 08-22-2020 Lymphocytes (Bld) [#/Vol] 1.3 10*3/uL 1.00-4.8 [facility] Lymphocytes/100 WBC Auto (Bl d)on 08-22-2020 Lymphocytes/100 WBC (Bld) 22.1 % [facility] MCH Auto (RBC) [Entitic mass ]on 08-22-2020 MCH (RBC) [Entitic mass] 31.9 pg 27.5-35.2 [facility] MCHC Auto (RBC) [Mass/Vol]on 08-22-2020 MCHC (RBC) [Mass/Vol] 33.5 g/dL 32.5-35.6 [facility] MCV Auto (RBC) [Entitic vol] on 08-22-2020 MCV (RBC) [Entitic vol] 95.1 fL 83.5-101 [facility] Monocytes Auto (Bld) [#/Vol] on 08-22-2020 Monocytes (Bld) [#/Vol] 0.6 10*3/uL 0.0-0.8 [facility] Monocytes/100 WBC Auto (Bld) on 08-22-2020 Monocytes/100 WBC (Bld) 10.5 % [facility] Neutrophils Auto (Bld) [#/Vo l]on 08-22-2020 Neutrophils (Bld) [#/Vol] 3.8 10*3/uL 1.8-7.7 [facility] Neutrophils/100 WBC Auto (Bl d)on 08-22-2020 Neutrophils/100 WBC (Bld) 65.0 % [facility] No Panel Informationon 08-22 Estimated GFR () > 60 mL/Min [facility] Comment on above: GFR estimated refere nce range: According to KDOQI guidelines, <60 ml/min/1.73m2 is sufficient to diagnose a patient with chronic kidney disease. Pharmacy Creatinine Clearance (Chem N/A [facility] Platelet mean volume Auto (B ld) [Entitic vol]on 08-22-2020 Platelet mean volume (Bld) [Entitic vol] 8.4 fL 6.6-10.1 [facility] Platelets Auto (Bld) [#/Vol] on 08-22-2020 Platelets (Bld) [#/Vol] 238 10*3/uL 150-450 [facility] Protein [Mass/volume] in Ser um or Plasmaon 08-22-2020 Protein [Mass/Vol] 6.4 g/dL 6.1-7.9 [facility] RBC Auto (Bld) [#/Vol]on RBC (Bld) [#/Vol] 3.85 10*6/uL 3.90-5.60 [facility] Serum or plasma alanine cortez otransferase measurement without P-5'-P (enzymatic activion 08-22-2020 ALT No additional P-5'-P [Catalytic activity/Vol] 24 U/L 10-60 [facility] Serum or plasma albumin/glob ulin mass ratioon 08-22-2020 Albumin/Globulin [Mass ratio] 1.3 {ratio} [facility] Serum or plasma alkaline cm sphatase measurement (enzymatic activity/volume)on 08-22-2020 ALP [Catalytic activity/Vol] 44 U/L 32-92 [facility] Serum or plasma aspartate am inotransferase measurement (enzymatic activity/volume)on 08-22-2020 AST [Catalytic activity/Vol] 25 U/L 10-42 [facility] Serum or plasma calcium wong urement (mass/volume)on 08-22-2020 Calcium [Mass/Vol] 8.9 mg/dL 8.2-10.2 [facility] Serum or plasma chloride fan surement (moles/volume)on 08-22-2020 Chloride [Moles/Vol] 106 mmol/L 95-114 [facility] Serum or plasma glucose wong urement (mass/volume)on 08-22-2020 Glucose [Mass/Vol] 162 mg/dL 70-100 [facility] Comment on above: ADA recommended refe rence rangeRandom Glucose Reference Range is dependent on time and content of last meal. Glucose of more than 200 mg/dL in a nonstressed, ambulatory subject supports the diagnosis of Diabetes Mellitus. Serum or plasma potassium me asurement (moles/volume)on 08-22-2020 Potassium [Moles/Vol] 4.1 mmol/L 3.5-5.1 [facility] Serum or plasma sodium measu rement (moles/volume)on 08-22-2020 Sodium [Moles/Vol] 137 mmol/L 136-146 [facility] Serum or plasma total biliru bin measurement (mass/volume)on 08-22-2020 Bilirubin [Mass/Vol] 1.2 mg/dL 0.3-1.2 [facility] Serum or plasma total carbon dioxide measurement (moles/volume)on 08-22-2020 CO2 [Moles/Vol] 22.4 mmol/L 22.0-30.0 [facility] Serum or plasma urea nitroge n measurement (mass/volume)on 08-22-2020 Urea nitrogen [Mass/Vol] 25 mg/dL 12-19 [facility] Albumin [Mass/volume] in Ser um or Plasmaon 06-26-2020 Albumin [Mass/Vol] 3.5 g/dL 3.2-5.5 [facility] Basophils Auto (Bld) [#/Vol] on 06-26-2020 Basophils (Bld) [#/Vol] 0.0 10*3/uL 0.0-0.2 [facility] Basophils/100 WBC Auto (Bld) on 06-26-2020 Basophils/100 WBC (Bld) 0.7 % [facility] Blood hemoglobin measurement (mass/volume)on 06-26-2020 Hemoglobin (Bld) [Mass/Vol] 13.2 g/dL 13.0-17.0 [facility] Blood leukocytes automated c ount (number/volume)on 06-26-2020 WBC (Bld) [#/Vol] 6.7 10*3/uL 4.5-11.0 [facility] Creatinine and Glomerular fi ltration rate.predicted panel (S/P/Bld)on 06-26-2020 Creatinine [Mass/Vol] 1.21 mg/dL 0.64-1.27 [facility] Eosinophils Auto (Bld) [#/Vo l]on 06-26-2020 Eosinophils (Bld) [#/Vol] 0.2 10*3/uL 0.0-0.45 [facility] Eosinophils/100 WBC Auto (Bl d)on 06-26-2020 Eosinophils/100 WBC (Bld) 2.3 % [facility] Erythrocyte distribution wid th Auto (RBC) [Ratio]on 06-26-2020 Erythrocyte distribution width (RBC) [Ratio] 16.0 % 12.0-14.8 [facility] Erythrocyte sedimentation ra te by Photometric methodon 06-26-2020 ESR Photometric method (Bld) [Velocity] 21 mm/hr 0-19 [facility] GFR/1.73 sq M.predicted marilia g non-blacks MDRD (S/P/Bld) [Vol rate/Area]on 06-26-2020 GFR/1.73 sq M predicted among non-blacks MDRD (S/P/Bld) [Vol rate/Area] 58 mL/Min [facility] Globulin Calc (S) [Mass/Vol] on 06-26-2020 Globulin (S) [Mass/Vol] 3.2 g/dL [facility] Hematocrit Auto (Bld) [Volum e fraction]on 06-26-2020 Hematocrit (Bld) [Volume fraction] 37.2 % 38.8-50.0 [facility] Lymphocytes Auto (Bld) [#/Vo l]on 06-26-2020 Lymphocytes (Bld) [#/Vol] 1.3 10*3/uL 1.00-4.8 [facility] Lymphocytes/100 WBC Auto (Bl d)on 06-26-2020 Lymphocytes/100 WBC (Bld) 19.7 % [facility] MCH Auto (RBC) [Entitic mass ]on 06-26-2020 MCH (RBC) [Entitic mass] 33.4 pg 27.5-35.2 [facility] MCHC Auto (RBC) [Mass/Vol]on 06-26-2020 MCHC (RBC) [Mass/Vol] 35.4 g/dL 32.5-35.6 [facility] MCV Auto (RBC) [Entitic vol] on 06-26-2020 MCV (RBC) [Entitic vol] 94.2 fL 83.5-101 [facility] Monocytes Auto (Bld) [#/Vol] on 06-26-2020 Monocytes (Bld) [#/Vol] 0.6 10*3/uL 0.0-0.8 [facility] Monocytes/100 WBC Auto (Bld) on 06-26-2020 Monocytes/100 WBC (Bld) 9.1 % [facility] Neutrophils Auto (Bld) [#/Vo l]on 06-26-2020 Neutrophils (Bld) [#/Vol] 4.6 10*3/uL 1.8-7.7 [facility] Neutrophils/100 WBC Auto (Bl d)on 06-26-2020 Neutrophils/100 WBC (Bld) 68.2 % [facility] No Panel Informationon 06-26 Estimated GFR () > 60 mL/Min [facility] Comment on above: GFR estimated refere nce range: According to KDOQI guidelines, <60 ml/min/1.73m2 is sufficient to diagnose a patient with chronic kidney disease. Otheron 06-26-2020 GFR/1.73 sq M.predicted MDRD (S/P/Bld) [Vol rate/Area] > 60 mL/Min [facility] Comment on above: GFR estimated refere nce range: According to KDOQI guidelines, <60 ml/min/1.73m2 is sufficient to diagnose a patient with chronic kidney disease. Nucleated RBC/100 WBC (Bld) [Ratio] 0.1 % 0-0.5 [facility] Pharmacy Creatinine Clearance (Chem N/A [facility] Platelet mean volume Auto (B ld) [Entitic vol]on 06-26-2020 Platelet mean volume (Bld) [Entitic vol] 8.4 fL 6.6-10.1 [facility] Platelets Auto (Bld) [#/Vol] on 06-26-2020 Platelets (Bld) [#/Vol] 241 10*3/uL 150-450 [facility] Protein [Mass/volume] in Ser um or Plasmaon 06-26-2020 Protein [Mass/Vol] 6.7 g/dL 6.1-7.9 [facility] RBC Auto (Bld) [#/Vol]on RBC (Bld) [#/Vol] 3.95 10*6/uL 3.90-5.60 [facility] Serum or plasma alanine cortez otransferase measurement without P-5'-P (enzymatic activion 06-26-2020 ALT No additional P-5'-P [Catalytic activity/Vol] 25 U/L [facility] Serum or plasma albumin/glob ulin mass ratioon 06-26-2020 Albumin/Globulin [Mass ratio] 1.1 {ratio} [facility] Serum or plasma alkaline cm sphatase measurement (enzymatic activity/volume)on 06-26-2020 ALP [Catalytic activity/Vol] 47 U/L [facility] Serum or plasma aspartate am inotransferase measurement (enzymatic activity/volume)on 06-26-2020 AST [Catalytic activity/Vol] 25 U/L 10 [facility] Serum or plasma calcium wong urement (mass/volume)on 06-26-2020 Calcium [Mass/Vol] 9.0 mg/dL 8.2-10.2 [facility] Serum or plasma chloride fan surement (moles/volume)on 06-26-2020 Chloride [Moles/Vol] 103 mmol/L 95-114 [facility] Serum or plasma glucose wong urement (mass/volume)on 06-26-2020 Glucose [Mass/Vol] 220 mg/dL 70-100 [facility] Comment on above: ADA recommended refe rence rangeRandom Glucose Reference Range is dependent on time and content of last meal. Glucose of more than 200 mg/dL in a nonstressed, ambulatory subject supports the diagnosis of Diabetes Mellitus. Serum or plasma potassium me asurement (moles/volume)on 06-26-2020 Potassium [Moles/Vol] 4.0 mmol/L 3.5-5.1 [facility] Serum or plasma sodium measu rement (moles/volume)on 06-26-2020 Sodium [Moles/Vol] 136 mmol/L 136-146 [facility] Serum or plasma total biliru bin measurement (mass/volume)on 06-26-2020 Bilirubin [Mass/Vol] 1.2 mg/dL 0.3-1.2 [facility] Serum or plasma total carbon dioxide measurement (moles/volume)on 06-26-2020 CO2 [Moles/Vol] 21.4 mmol/L 22.0-30.0 [facility] Serum or plasma urea nitroge n measurement (mass/volume)on 06-26-2020 Urea nitrogen [Mass/Vol] 18 mg/dL 12-19 [facility] Vital Signs Date Time Vital Sign Value Performing Clinician Facility 11-13-2024 09:10-0400 Diastolic blood pressure 70 mm[Hg] Al Breanne Work Phone: [facility] 11-13-2024 09:10-0400 Heart rate 76 /min Al Raymundo JR Work Phone: [facility] 11-13-2024 09:10-0400 Respiratory rate 16 /min Al Raymundo JR Work Phone: [facility] 11-13-2024 09:10-0400 SaO2% (BldA) [Mass fraction] 92 % Al Raymundo JR Work Phone: [facility] 11-13-2024 09:10-0400 Systolic blood pressure 148 mm[Hg] Al Raymundo JR Work Phone: [facility] 11-13-2024 06:52-0400 Body height 180.34 cm Al Raymundo JR Work Phone: [facility] 11-13-2024 06:52-0400 Body weight 90.26 kg Al Raymundo JR Work Phone: [facility] 07-12-2024 15:47-0400 Body height 182.9 cm Joby Pinedo MD Work Phone: [facility] 07-12-2024 15:47-0400 Body mass index (BMI) [Ratio] 28.92 kg/m2 Joby Pinedo MD Work Phone: [facility] 07-12-2024 15:47-0400 Body weight 96.71 kg Joby Pinedo MD Work Phone: [facility] 07-12-2024 15:47-0400 Diastolic blood pressure 52 mm[Hg] Joby Pinedo MD Work Phone: [facility] 07-12-2024 15:47-0400 Heart rate 69 /min Joby Pinedo MD Work Phone: [facility] 07-12-2024 15:47-0400 Systolic blood pressure 130 mm[Hg] Joby Pinedo MD Work Phone: [facility] 05-30-2024 15:03-0500 Body height 182.9 cm Dewey Biedenbach DO Work Phone: [facility] 05-30-2024 15:03-0500 Body mass index (BMI) [Ratio] 30.52 kg/m2 Dewey Biedenbach DO Work Phone: [facility] 05-30-2024 15:03-0500 Body weight 102.06 kg Dewey Biedenbach DO Work Phone: [facility] 05-02-2024 14:50-0500 Body height 182.9 cm Dewey Biedenbach DO Work Phone: [facility] 05-02-2024 14:50-0500 Body mass index (BMI) [Ratio] 30.52 kg/m2 Dewey Biedenbach DO Work Phone: [facility] 05-02-2024 14:50-0500 Body weight 102.06 kg Dewey Biedenbach DO Work Phone: [facility] 04-11-2024 14:26-0500 Body height 182.9 cm Dewey Biedenbach DO Work Phone: [facility] 04-11-2024 14:26-0500 Body mass index (BMI) [Ratio] 30.52 kg/m2 Dewey Biedenbach DO Work Phone: [facility] 04-11-2024 14:26-0500 Body weight 102.06 kg Dewey Biedenbach DO Work Phone: [facility] 01-25-2024 14:33-0400 Body height 182.9 cm Joby Pinedo MD Work Phone: [facility] 01-25-2024 14:33-0400 Body mass index (BMI) [Ratio] 30.11 kg/m2 Joby Pinedo MD Work Phone: [facility] 01-25-2024 14:33-0400 Body weight 100.7 kg Joby Pinedo MD Work Phone: [facility] 01-25-2024 14:33-0400 Diastolic blood pressure 48 mm[Hg] Joby Pinedo MD Work Phone: [facility] 01-25-2024 14:33-0400 Heart rate 56 /min Joby Pinedo MD Work Phone: [facility] 01-25-2024 14:33-0400 Systolic blood pressure 132 mm[Hg] Joby Pinedo MD Work Phone: [facility] 11-13-2023 13:05-0400 Body temperature 97.7 [degF] Milton Camejo MD Work Phone: [facility] 11-13-2023 13:05-0400 Diastolic blood pressure 50 mm[Hg] Milton Camejo MD Work Phone: [facility] 11-13-2023 13:05-0400 Heart rate 69 /min Milton Camejo MD Work Phone: [facility] 11-13-2023 13:05-0400 Respiratory rate 17 /min Milton Camejo MD Work Phone: [facility] 11-13-2023 13:05-0400 SaO2% (BldA) [Mass fraction] 95 % Milton Camejo MD Work Phone: [facility] 11-13-2023 13:05-0400 Systolic blood pressure 133 mm[Hg] Milton Camejo MD Work Phone: [facility] 11-13-2023 04:25-0400 Body mass index (BMI) [Ratio] 27.78 kg/m2 Milton Camejo MD Work Phone: [facility] 11-13-2023 04:25-0400 Body weight 90.35 kg Milton Camejo MD Work Phone: [facility] 11-03-2023 09:32-0400 Body height 180.3 cm Milton Camejo MD Work Phone: [facility] 10-26-2023 12:00-0400 Body temperature 97.7 [degF] JR Al Raymundo Work Phone: [facility] 10-26-2023 12:00-0400 Diastolic blood pressure 65 mm[Hg] JR Al Raymundo Work Phone: [facility] 10-26-2023 12:00-0400 Heart rate 68 /min JR Al Navarretetommie Work Phone: [facility] 10-26-2023 12:00-0400 Inhaled oxygen flow rate 3 L/min JR Al Navarretetommie Work Phone: [facility] 10-26-2023 12:00-0400 Respiratory rate 18 /min JR Al Raymundo Work Phone: [facility] 10-26-2023 12:00-0400 SaO2% (BldA) [Mass fraction] 100 % JR Al Raymundo Work Phone: [facility] 10-26-2023 12:00-0400 Systolic blood pressure 161 mm[Hg] JR Al Raymundo Work Phone: [facility] 10-26-2023 06:00-0400 Body weight 97.2 kg JR Al Rayumndo Work Phone: [facility] 10-20-2023 16:11-0400 Body height 177.8 cm JR Al Raymundo Work Phone: [facility] 10-19-2023 19:33-0400 Body temperature 97.3 [degF] JR Al Raymundo Work Phone: [facility] 10-19-2023 19:33-0400 Diastolic blood pressure 53 mm[Hg] JR Al Raymundo Work Phone: [facility] 10-19-2023 19:33-0400 Heart rate 80 /min JR Al Raymundo Work Phone: [facility] 10-19-2023 19:33-0400 Inhaled oxygen flow rate 4 L/min JR Al Raymundo Work Phone: [facility] 10-19-2023 19:33-0400 Respiratory rate 17 /min JR Al Raymundo Work Phone: [facility] 10-19-2023 19:33-0400 SaO2% (BldA) [Mass fraction] 95 % JR Al Raymundo Work Phone: [facility] 10-19-2023 19:33-0400 Systolic blood pressure 115 mm[Hg] JR Al Raymundo Work Phone: [facility] 10-19-2023 13:04-0400 Body height 182.88 cm JR Al Raymundo Work Phone: [facility] 10-19-2023 13:04-0400 Body weight 99.79 kg JR Al Raymundo Work Phone: [facility] 10-13-2023 16:01-0400 Body height 180.3 cm Joby Pinedo MD Work Phone: [facility] 10-13-2023 16:01-0400 Body mass index (BMI) [Ratio] 30.4 kg/m2 Joby Pinedo MD Work Phone: [facility] 10-13-2023 16:01-0400 Body weight 98.88 kg Joby Pinedo MD Work Phone: [facility] 10-13-2023 16:01-0400 Diastolic blood pressure 64 mm[Hg] Joby Pinedo MD Work Phone: [facility] 10-13-2023 16:01-0400 Heart rate 70 /min Joby Pinedo MD Work Phone: [facility] 10-13-2023 16:01-0400 Systolic blood pressure 110 mm[Hg] Joby Pinedo MD Work Phone: [facility] 09-15-2023 20:00-0400 Body temperature 97.6 [degF] Al Raymundo Work Phone: [facility] 09-15-2023 20:00-0400 Diastolic blood pressure 59 mm[Hg] Al Raymundo Work Phone: [facility] 09-15-2023 20:00-0400 Heart rate 68 /min Al Raymundo Work Phone: [facility] 09-15-2023 20:00-0400 Inhaled oxygen flow rate 6 L/min Al Raymundo Work Phone: [facility] 09-15-2023 20:00-0400 Respiratory rate 18 /min Al Raymundo Work Phone: [facility] 09-15-2023 20:00-0400 SaO2% (BldA) [Mass fraction] 95 % Al Raymundo Work Phone: [facility] 09-15-2023 20:00-0400 Systolic blood pressure 128 mm[Hg] Al Navarreteone Work Phone: [facility] 09-15-2023 06:00-0400 Body weight 102.4 kg Al Raymundo Work Phone: [facility] 09-10-2023 13:36-0400 Body height 180.34 cm Al Rosalbatommie Work Phone: [facility] 09-09-2023 15:30-0400 Diastolic blood pressure 56 mm[Hg] JR Al Raymundo Work Phone: [facility] 09-09-2023 15:30-0400 Heart rate 69 /min JR Al Raymundo Work Phone: [facility] 09-09-2023 15:30-0400 Inhaled oxygen flow rate 3 L/min JR Al Raymundo Work Phone: [facility] 09-09-2023 15:30-0400 Respiratory rate 18 /min JR Al Raymundo Work Phone: [facility] 09-09-2023 15:30-0400 SaO2% (BldA) [Mass fraction] 95 % JR Al Raymundo Work Phone: [facility] 09-09-2023 15:30-0400 Systolic blood pressure 125 mm[Hg] JR Al Raymundo Work Phone: [facility] 09-09-2023 11:56-0400 Body height 180.34 cm JR Al Raymundo Work Phone: [facility] 09-09-2023 11:56-0400 Body temperature 98.8 [degF] JR Al Raymundo Work Phone: [facility] 09-09-2023 11:56-0400 Body weight 99.33 kg JR Al Raymundo Work Phone: [facility] 07-01-2023 09:59-0400 Diastolic blood pressure 78 mm[Hg] [address] 07-01-2023 09:59-0400 Heart rate 71 /min [address] 07-01-2023 09:59-0400 Systolic blood pressure 138 mm[Hg] [address] 06-23-2023 13:14-0400 Body height 180.3 cm Joby Pinedo MD Work Phone: [facility] 06-23-2023 13:14-0400 Body mass index (BMI) [Ratio] 32.26 kg/m2 Joby Pinedo MD Work Phone: [facility] 06-23-2023 13:14-0400 Body weight 104.92 kg Joby Pinedo MD Work Phone: [facility] 06-23-2023 13:14-0400 Diastolic blood pressure 78 mm[Hg] Joby Pinedo MD Work Phone: [facility] 06-23-2023 13:14-0400 Heart rate 72 /min Joby Pinedo MD Work Phone: [facility] 06-23-2023 13:14-0400 Systolic blood pressure 138 mm[Hg] Joby Pniedo MD Work Phone: [facility] 03-13-2023 08:00-0500 Body temperature 97.9 [degF] PHYSICIAN NO [facility] 03-13-2023 08:00-0500 Diastolic blood pressure 70 mm[Hg] PHYSICIAN NO [facility] 03-13-2023 08:00-0500 Heart rate 66 /min PHYSICIAN NO [facility] 03-13-2023 08:00-0500 Respiratory rate 17 /min PHYSICIAN NO [facility] 03-13-2023 08:00-0500 SaO2% (BldA) [Mass fraction] 95 % PHYSICIAN NO [facility] 03-13-2023 08:00-0500 Systolic blood pressure 137 mm[Hg] PHYSICIAN NO [facility] 03-13-2023 06:00-0500 Body weight 105.2 kg PHYSICIAN NO [facility] 03-12-2023 12:26-0500 Inhaled oxygen flow rate 8 L/min PHYSICIAN NO [facility] 03-12-2023 11:15-0500 Body height 182.88 cm PHYSICIAN NO [facility] 03-12-2023 11:15-0500 Body mass index (BMI) [Ratio] 31.6 kg/m2 PHYSICIAN NO [facility] 02-26-2023 07:55-0500 Body height 180.[address] 02-26-2023 07:55-0500 Body mass index (BMI) [Ratio] 31.8 kg/m2 [address] 02-26-2023 07:55-0500 Body weight 103.[address] 02-23-2023 13:22-0500 Diastolic blood pressure 60 mm[Hg] Joby Pinedo MD Work Phone: [facility] 02-23-2023 13:22-0500 Systolic blood pressure 144 mm[Hg] Joby Pinedo MD Work Phone: [facility] 02-23-2023 13:21-0500 Body height 180.3 cm Joby Pinedo MD Work Phone: [facility] 02-23-2023 13:21-0500 Body mass index (BMI) [Ratio] 31.8 kg/m2 Joby Pinedo MD Work Phone: [facility] 02-23-2023 13:21-0500 Body weight 103.42 kg Joby Pinedo MD Work Phone: [facility] 02-23-2023 13:21-0500 Heart rate 36 /min Joby Pinedo MD Work Phone: [facility] 06-03-2022 13:15-0500 Blood Pressure Location Yovany AVILA [facility] [place] 06-03-2022 13:15-0500 Diastolic blood pressure 80 mm[Hg] Yovany AVILA [facility] [place] 06-03-2022 13:15-0500 Heart rate 70 /min Yovany AVILA [facility] 06-03-2022 13:15-0500 Respiratory rate 16 /min Yovany AVILA [facility] [place] 06-03-2022 13:15-0500 Systolic blood pressure 130 mm[Hg] Yovany AVILA [facility] [place] Encounters Encounter Date Encounter Type Care Provider Facility Start: 11-13-2024 End: 11-13-2024 ambulatory Shabana L Ly Facility:[facility] Start: 11-13-2024 Non-patient / Non-visit Shabana L Ly DO -[facility] Work Phone: Start: 11-10-2024 End: 11-10-2024 Office outpatient visit 15 minutes Medardo Tsai 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 Work Phone: [facility] Comment on above: S/P TAVR (transcathe ter aortic valve replacement) (Primary Dx); Chronic kidney disease, stage 3b (Multi) Start: 11-10-2024 End: 11-10-20[facility] Start: 10-06-2024 End: 10-06-2024 Patient encounter procedure Joby Pinedo MD -Pacemaker Check Start: 10-06-2024 End: 10-06-2024 ambulatory Al Raymundo JR Work Phone: [facility] Work Phone: Start: 10-06-2024 Non-patient / Non-visit Hortencia Mcdonough [facility] Start: 08-08-2024 End: 08-08-2024 Patient encounter procedure Al Raymundo JR Work Phone: [facility] [address] Work Phone: Start: 08-08-2024 End: 08-08-2024 ambulatory Al Raymundo JR Work Phone: [facility] Work Phone: Start: 07-12-2024 End: 07-12-2024 ambulatory JOBY [facility] Start: 07-12-2024 End: 07-12-2024 Office outpatient visit 25 minutes Joby Pinedo MD Work Phone: [facility] Comment on above: Chronic systolic hea rt failure (Primary Dx); Single vessel coronary artery disease; Severe aortic stenosis; Pulmonary hypertension (Multi); Persistent atrial fibrillation (Multi); Nonrheumatic aortic valve stenosis; Hypercholesteremia; Primary hypertension; History of transcatheter aortic valve replacement (TAVR); Bradycardia; Abnormal ECG; 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; Shortness of breath; Former smoker; BMI 28.0-28.9,adult Start: 07-07-2024 End: 07-07-2024 Patient encounter procedure Al Raymundo Work Phone: [facility]-Pacemaker Check Start: 07-07-2024 End: 07-07-2024 ambulatory Al Jung Rosalbatommie REGALADO Work Phone: [facility] Work Phone: Start: 07-07-2024 Non-patient / Non-visit Rock Raymundo JR Work Phone: [facility] Start: 06-20-2024 End: 06-20-2024 ambulatory DEWEY CHAMORRO Not Available Start: 06-08-2024 End: 06-08-2024 ambulatory Al Raymundo Work Phone: [facility] Work Phone: Start: 06-08-2024 End: 06-08-2024 Patient encounter procedure Al Ryamundo Work Phone: [facility] [address] Work Phone: Start: 05-30-2024 End: 05-30-2024 ambulatory DEWEY CHAMORRO Not Available Start: 05-30-2024 End: 05-30-2024 Office outpatient visit 15 minutes Dewey Chamorro DO Work Phone: [facility] Comment on above: Nasal septal deviati on (Primary Dx); Chronic anticoagulation; Recurrent epistaxis Start: 05-30-2024 End: 05-30-2024 Bamboo flowsheet Dewey Chamorro DO Work Phone: [facility] Start: 05-30-2024 End: 05-30-2024 Bamboo flowsheet Dewey Chamorro DO Work Phone: [facility] Start: 05-02-2024 End: 05-02-2024 ambulatory DEWEY CHAMORRO Not Available Start: 05-02-2024 End: 05-02-2024 Office outpatient visit 25 minutes Dewey Chamorro DO Work Phone: [facility] Comment on above: Nasal septal deviati on (Primary Dx); Chronic anticoagulation; Recurrent epistaxis Start: 05-02-2024 End: 05-02-2024 Bamboo flowsheet Dewey Chamorro DO Work Phone: [facility] Start: 05-02-2024 End: 05-02-2024 Bamboo flowsheet Dewey Chamorro DO Work Phone: [facility] Start: 04-12-2024 End: 04-12-2024 Patient encounter procedure Al Raymundo JR Work Phone: [facility] [address] Work Phone: Start: 04-12-2024 End: 04-12-2024 ambulatory Al Raymundo JR Work Phone: [facility] Work Phone: Start: 04-11-2024 End: 04-11-2024 ambulatory DEWEY CHAMORRO Not Available Start: 04-11-2024 End: 04-11-2024 Office outpatient visit 25 minutes Dewey Chamorro DO Work Phone: [facility] Comment on above: Recurrent epistaxis (Primary Dx); Chronic anticoagulation; Nasal septal deviation; Chronic rhinitis Start: 04-11-2024 End: 04-11-2024 Bamboo flowsheet Dewey Chamorro DO Work Phone: [facility] ED[facility] Start: 04-11-2024 End: 04-11-2024 Bamboo flowsheet Dewey Chamorro Work Phone: [facility] Start: 04-07-2024 End: 04-07-2024 ambulatory Al Raymundo Facility:[facility] Start: 04-07-2024 Non-patient / Non-visit [facility] Start: 01-25-2024 End: 01-25-2024 ambulatory [facility] Ambulatory Start: 01-25-2024 End: 01-25-2024 Office outpatient visit 25 minutes Joby Pinedo MD Work Phone: [facility] Comment on above: Nonrheumatic aortic valve stenosis (Primary Dx); Single vessel coronary artery disease; Chronic systolic heart failure; Persistent atrial fibrillation (Multi); Edema, unspecified type; Severe aortic stenosis; History of transcatheter aortic valve replacement (TAVR); Pulmonary hypertension (Multi); Primary hypertension; Hypercholesteremia; Abnormal ECG; Shortness of breath; 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; Obstructive sleep apnea syndrome; BMI 30.0-30.9,adult; Former smoker Start: 01-12-2024 End: 01-12-2024 Subsequent hospital visit by physician Nicole Soler Echo/Vasc Room 2 [facility] Comment on above: Aortic stenosis, sev ere; S/P TAVR (transcatheter aortic valve replacement) Start: 01-12-2024 End: 01-12-2024 ambulatory ANDRA MOLINA [facility] Start: 01-06-2024 End: 01-06-2024 ambulatory Al Raymundo Facility:[facility] Start: 01-06-2024 Non-patient / Non-visit JR Heike lopez Valtommie Work Phone: [facility] Start: 11-01-2023 End: 11-13-2023 Evaluation and management of inpatient Milton Camejo MD Work Phone: [facility] [place] [facility] Start: 10-23-2023 Non-patient / Non-visit JR Heike lopez Valtommie Work Phone: [facility] Work Phone: Start: 10-20-2023 Non-patient / Non-visit JR Heike Raymundo Work Phone: [facility] Work Phone: Start: 10-20-2023 Non-patient / Non-visit JR Heike Raymundo Work Phone: [facility] Work Phone: Start: 10-19-2023 End: 10-26-2023 Evaluation and management of inpatient JR Al Raymundo Work Phone: [facility] [place] [facility] Work Phone: Start: 10-13-2023 End: 10-13-2023 Office outpatient visit 25 minutes Joby Pinedo MD Work Phone: [facility] Comment on above: Chronic systolic hea rt failure (Multi) (Primary Dx); Persistent atrial fibrillation (Multi); Nonrheumatic aortic valve stenosis; Pulmonary hypertension (Multi); History of transcatheter aortic valve replacement (TAVR); Primary hypertension; Hypercholesteremia; BMI 30.0-30.9,adult; Bradycardia; Dilated cardiomyopathy (Multi); Edema, unspecified type Start: 10-13-2023 End: 10-13-2023 ambulatory [facility] Start: 10-06-2023 End: 10-06-2023 Subsequent hospital visit by physician [facility] Comment on above: Nonrheumatic aortic valve stenosis Start: 09-22-2023 End: 09-22-2023 ambulatory JR Al Raymundo Work Phone: [facility] Work Phone: Start: 09-22-2023 End: 09-22-2023 Patient encounter procedure JR Al Raymundo Work Phone: [facility] [address] Work Phone: Start: 09-09-2023 End: 09-15-2023 Evaluation and management of inpatient JR Al Raymundo Work Phone: [facility] [place] [facility] Work Phone: Start: 08-24-2023 End: 08-24-2023 ambulatory DEWEY CHAMORRO Not Available Start: 07-07-2023 End: 07-07-2023 ambulatory JR Al Raymundo Work Phone: [facility] Work Phone: Start: 07-07-2023 End: 07-07-2023 Patient encounter procedure JR Al Raymundo Work Phone: [facility] [address] Work Phone: Start: 07-01-2023 End: 07-01-2023 Subsequent hospital visit by physician Nicole Kelly La Admin Room 1 [facility] Comment on above: Shortness of breath Start: 07-01-2023 End: 07-01-2023 ambulatory JOBY PINEDO [facility] Start: 06-23-2023 End: 06-23-2023 ambulatory JR Al Raymundo Work Phone: [facility] Work Phone: Start: 06-23-2023 End: 06-23-2023 Patient encounter procedure JR Al Raymundo Work Phone: [facility]-Pacemaker Check Start: 06-23-2023 End: 06-23-2023 Office outpatient visit 25 minutes Joby Pinedo MD Work Phone: [facility] Comment on above: Persistent atrial fi brillation (CMS/HCC) (Primary Dx); Bradycardia; Cardiac pacemaker; Abnormal ECG; Primary hypertension; 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 [address] [place] Start: 03-12-2023 End: 03-13-[address] [facility] Work Phone: Start: 03-10-2023 End: 03-10-2023 ambulatory PHYSICIAN NO [facility] Work Phone: Start: 03-10-2023 End: 03-10-2023 Patient encounter procedure PHYSICIAN NO [facility] Work Phone: Start: 03-09-2023 End: 03-09-[address] [facility] Start: 02-26-2023 End: 02-26-[address] [facility] Start: 02-26-2023 End: 02-26-2023 Subsequent hospital visit by physician Nicole Soler Echo/Vasc Room 2 [facility] Comment on above: Persistent atrial fi brillation (CMS/HCC); Bradycardia; Chronic systolic heart failure (CMS/HCC); Hypertension, unspecified type Start: 02-23-2023 End: 02-23-2023 Office outpatient new 60 minutes Joby Pinedo MD Work Phone: [facility] Comment on above: Bradycardia (Primary Dx); Persistent atrial fibrillation (CMS/HCC); USP current use of 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 therapy; Chronic systolic heart failure (CMS/HCC); Hypertension, unspecified type; Type 2 diabetes mellitus without complication, unspecified whether chcf insulin use (CMS/HCC); Heart failure, unspecified HF chronicity, unspecified heart failure type (CMS/HCC); Abnormal ECG; Immunosuppression (CMS/HCC); Permanent atrial fibrillation (CMS/HCC) Start: 01-28-2023 End: 01-28-2023 ambulatory PHYSICIAN TISHA [facility] Work Phone: Start: 01-28-2023 End: 01-28-2023 Patient encounter procedure PHYSICIAN [facility] [address] Work Phone: Start: 2022 End: 2022 ambulatory PHYSICIAN NO [facility] Work Phone: Start: 2022 End: 2022 Patient encounter procedure PHYSICIAN NO FAMILY [facility] [address] Work Phone: Start: 07-21-2022 End: 07-22-2022 ambulatory Yovany AVILA Facility: [place] Start: 07-21-2022 End: 07-21-2022 Patient encounter procedure Yovany Jessica ALANNAL General Surgery N[facility] [place] Start: 07-08-2022 End: 07-09-[address] YOVANY AVILA . Facility: Start: 06-16-2022 End: 06-16-2022 ambulatory MD Solomon Bolton Work Phone: [facility] Work Phone: Start: 06-16-2022 End: 06-16-2022 Patient encounter procedure MD Solomon Bolton Work Phone: [facility] [address] Work Phone: Start: 06-03-2022 End: 06-04-2022 ambulatory Yovany Lopez MARGARITA Facility: [place] Start: 06-03-2022 End: 06-03-2022 Patient encounter procedure Yovany AVILA [facility] [place] Start: 05-20-2022 ambulatory AL RAYMUNDO Facility : [place] Start: 04-21-2022 End: 04-21-2022 ambulatory MD Solomon Bolton Work Phone: [facility] Work Phone: Start: 04-21-2022 End: 04-21-2022 Patient encounter procedure MD Solomon Bolton Work Phone: [facility] [address] Work Phone: Start: 12-09-2021 End: 12-09-2021 Patient encounter procedure DO Kelvin Fu Jr Work Phone: [facility] [address] Start: 10-22-2021 End: 10-22-2021 ambulatory NAYAN COLON . Facility: Start: 10-02-2021 End: 10-02-2021 Departed Referred JR Al Raymundo Work Phone: [facility] [address] [place] Start: 08-07-2021 End: 08-07-2021 Patient encounter procedure JR Al Raymundo Work Phone: [facility] [address] Start: 08-22-2020 End: 08-22-2020 Patient encounter procedure Al Raymundo Work Phone: -Lab [address] Start: 06-26-2020 End: 06-26-2020 Patient encounter procedure Al Raymundo -Lab [address] Procedures Date Procedure Procedure Detail Performing Clinician Start: 07-12-2024 Ecg routine ecg w/least 12 lds w/i&r Joby Pinedo MD Work Phone: Start: 11-13-2023 Glucose quantitative blood xcpt reagent strip Milton Camejo MD Work Phone: Start: 11-13-2023 Echo transthorc r-t 2d w/wo m-mode rec f-up/lmtd Caron León MD Work Phone: Start: 11-13-2023 Comprehensive metabolic panel Caron multani MD Work Phone: Start: 11-13-2023 End: 11-13-2023 Heparin assay Andra Molina 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 Work Phone: Start: 11-12-2023 Glucose quantitative blood xcpt reagent strip Milton Camejo MD Work Phone: Start: 11-12-2023 Glucose quantitative blood xcpt reagent strip Milton Camejo MD Work Phone: Start: 11-12-2023 Ecg routine ecg w/least 12 lds trcg only w/o i&r Andra Molina 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 Work Phone: Start: 11-12-2023 End: 11-13-2023 Renal function panel Andra Teja Molina 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 Work Phone: Start: 11-12-2023 Echo transthorc r-t 2d w/wo m-mode rec f-up/lmtd Andra A Molina 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 Work Phone: Start: 11-12-2023 Ecg routine ecg w/least 12 lds trcg only w/o i&r Andra Teja Molina 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 Work Phone: Start: 11-12-2023 Glucose quantitative blood xcpt reagent strip Waldo Saeed MD Work Phone: Start: 11-12-2023 PULSE OXIMETRY, SPOT Andra A Molina 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 Work Phone: Start: 11-12-2023 PULSE OXIMETRY, SPOT Andra A Molina 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 Work Phone: Start: 11-12-2023 PULSE OXIMETRY, SPOT Andra A Molina 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 Work Phone: Start: 11-11-2023 PULSE OXIMETRY, SPOT Andra A Molina 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 Work Phone: Start: 11-11-2023 Renal function panel Andra Teja Molina 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 Work Phone: Start: 11-11-2023 PULSE OXIMETRY, SPOT Andra A Molina 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 Work Phone: Start: 11-11-2023 Glucose quantitative blood xcpt reagent strip Waldo Saeed MD Work Phone: Start: 11-11-2023 Glucose quantitative blood xcpt reagent strip Waldo Saeed MD Work Phone: Start: 11-11-2023 PULSE OXIMETRY, SPOT Andra A Molina 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 Work Phone: Start: 11-11-2023 Blood typing serologic rh (d) Holden hill PA-C Work Phone: Start: 11-11-2023 PULSE OXIMETRY, SPOT Andra A Molina 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 Work Phone: Start: 11-11-2023 Glucose quantitative blood xcpt reagent strip Waldo Saeed MD Work Phone: Start: 11-11-2023 Heparin assay Andra A Molina 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 Work Phone: Start: 11-11-2023 PULSE OXIMETRY, SPOT Andra A Molina 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 Work Phone: Start: 11-11-2023 PULSE OXIMETRY, SPOT Andra A Molina 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 Work Phone: Start: 11-10-2023 Glucose quantitative blood xcpt reagent strip Waldo Saeed MD Work Phone: Start: 11-10-2023 PULSE OXIMETRY, SPOT Andra A Molina 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 Work Phone: Start: 11-10-2023 Renal function panel Andra A Molina 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 Work Phone: Start: 11-10-2023 Glucose quantitative blood xcpt reagent strip Waldo Saeed MD Work Phone: Start: 11-10-2023 PULSE OXIMETRY, SPOT Andra A Molina 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 Work Phone: Start: 11-10-2023 PULSE OXIMETRY, SPOT Andra A Molina 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 Work Phone: Start: 11-10-2023 Glucose quantitative blood xcpt reagent strip Waldo Saeed MD Work Phone: Start: 11-10-2023 End: 11-10-2023 Renal function panel Holden Ornelas PA-C Work Phone: Start: 11-10-2023 PULSE OXIMETRY, SPOT Andra A Molina 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 Work Phone: Start: 11-10-2023 PULSE OXIMETRY, SPOT Andra A Molina 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 Work Phone: Start: 11-10-2023 PULSE OXIMETRY, SPOT Andra A Molina 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 Work Phone: Start: 11-09-2023 Glucose quantitative blood xcpt reagent strip Cody Medeiros MD Work Phone: Start: 11-09-2023 PULSE OXIMETRY, SPOT Andra A Molina 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 Work Phone: Start: 11-09-2023 PULSE OXIMETRY, SPOT Andra A Molina 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 Work Phone: Start: 11-09-2023 Glucose quantitative blood xcpt reagent strip Cody Medeiros MD Work Phone: Start: 11-09-2023 Glucose quantitative blood xcpt reagent strip Cody Medeiros MD Work Phone: Start: 11-09-2023 PULSE OXIMETRY, SPOT Andra A Molina 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 Work Phone: Start: 11-09-2023 End: 11-09-2023 Heparin assay Andra A Molina 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 Work Phone: Start: 11-09-2023 PULSE OXIMETRY, SPOT Andra A Molina 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 Work Phone: Start: 11-09-2023 PULSE OXIMETRY, SPOT Andra A Molina 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 Work Phone: Start: 11-09-2023 PULSE OXIMETRY, SPOT Andra A Molina 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 Work Phone: Start: 11-08-2023 Glucose quantitative blood xcpt reagent strip Cody Medeiros MD Work Phone: Start: 11-08-2023 PULSE OXIMETRY, SPOT Andra A Molina 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 Work Phone: Start: 11-08-2023 Renal function panel Andra A Molina 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 Work Phone: Start: 11-08-2023 Glucose quantitative blood xcpt reagent strip Cody Medeiros MD Work Phone: Start: 11-08-2023 PULSE OXIMETRY, SPOT Andra A Molina 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 Work Phone: Start: 11-08-2023 PULSE OXIMETRY, SPOT Andra A Molina 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 Work Phone: Start: 11-08-2023 Glucose quantitative blood xcpt reagent strip Cody Medeiros MD Work Phone: Start: 11-08-2023 End: 11-08-2023 Renal function panel Micah Mccallum 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 Work Phone: Start: 11-08-2023 PULSE OXIMETRY, SPOT Andra A Molina 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 Work Phone: Start: 11-08-2023 PULSE OXIMETRY, SPOT Andra A Molina 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 Work Phone: Start: 11-08-2023 PULSE OXIMETRY, SPOT Andra A Molina 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 Work Phone: Start: 11-07-2023 Glucose quantitative blood xcpt reagent strip Remi Marie MD MPH Work Phone: Start: 11-07-2023 PULSE OXIMETRY, SPOT Andra A Molina 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 Work Phone: Start: 11-07-2023 Renal function panel Andra A Molina 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 Work Phone: Start: 11-07-2023 Glucose quantitative blood xcpt reagent strip Remi Marie MD MPH Work Phone: Start: 11-07-2023 PULSE OXIMETRY, SPOT Andra A Molina 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 Work Phone: Start: 11-07-2023 PULSE OXIMETRY, SPOT Andra A Molina 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 Work Phone: Start: 11-07-2023 Glucose quantitative blood xcpt reagent strip Remi Marie MD MPH Work Phone: Start: 11-07-2023 End: 11-07-2023 Heparin assay Andra A Molina 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 Work Phone: Start: 11-07-2023 PULSE OXIMETRY, SPOT Andra A Molina 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 Work Phone: Start: 11-07-2023 PULSE OXIMETRY, SPOT Andra A Molina 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 Work Phone: Start: 11-07-2023 PULSE OXIMETRY, SPOT Andra A Molina 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 Work Phone: Start: 11-06-2023 Glucose quantitative blood xcpt reagent strip Remi Marie MD MPH Work Phone: Start: 11-06-2023 PULSE OXIMETRY, SPOT Andra A Molina 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 Work Phone: Start: 11-06-2023 Renal function panel Andra A Molina 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 Work Phone: Start: 11-06-2023 PULSE OXIMETRY, SPOT Andra A Molina 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 Work Phone: Start: 11-06-2023 Glucose quantitative blood xcpt reagent strip Remi Marie MD MPH Work Phone: Start: 11-06-2023 PULSE OXIMETRY, SPOT Andra A Molina 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 Work Phone: Start: 11-06-2023 Glucose quantitative blood xcpt reagent strip Remi Marie MD MPH Work Phone: Start: 11-06-2023 PULSE OXIMETRY, SPOT Andra A Molina 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 Work Phone: Start: 11-06-2023 End: 11-06-2023 Blood count complete automated Trupti Foss PA-C Work Phone: Start: 11-06-2023 PULSE OXIMETRY, SPOT Andra A Molina 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 Work Phone: Start: 11-06-2023 PULSE OXIMETRY, SPOT Andra A Molina 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 Work Phone: Start: 11-05-2023 Glucose quantitative blood xcpt reagent strip Guerita Molina MD PhD Work Phone: Start: 11-05-2023 PULSE OXIMETRY, SPOT Andra A Molina 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 Work Phone: Start: 11-05-2023 End: 11-05-2023 Renal function panel Andra A Molina 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 Work Phone: Start: 11-05-2023 PULSE OXIMETRY, SPOT Andra A Molina 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 Work Phone: Start: 11-05-2023 End: 11-05-2023 Heparin assay Andra A Molina 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 Work Phone: Start: 11-05-2023 PULSE OXIMETRY, SPOT Andra A Molina 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 Work Phone: Start: 11-05-2023 End: 11-05-2023 Heparin assay Andra A Molina 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 Work Phone: Start: 11-05-2023 PULSE OXIMETRY, SPOT Andra A Molina 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 Work Phone: Start: 11-05-2023 Heparin assay Andra A Molina 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 Work Phone: Start: 11-04-2023 PULSE OXIMETRY, SPOT Andra A Molina 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 Work Phone: Start: 11-04-2023 End: 11-04-2023 Renal function panel Andra A Molina 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 Work Phone: Start: 11-04-2023 PULSE OXIMETRY, SPOT Andra A Molina 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 Work Phone: Start: 11-04-2023 End: 11-04-2023 Heparin assay Trupti Foss PA-C Work Phone: Start: 11-04-2023 PULSE OXIMETRY, SPOT Andra A Molina 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 Work Phone: Start: 11-04-2023 Glucose quantitative blood xcpt reagent strip Guerita Molina MD PhD Work Phone: Start: 11-04-2023 PULSE OXIMETRY, SPOT Andra Teja Molina 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 Work Phone: Start: 11-04-2023 Glucose quantitative blood xcpt reagent strip Guerita Molina MD PhD Work Phone: Start: 11-04-2023 PULSE OXIMETRY, SPOT Andra A Molina 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 Work Phone: Start: 11-04-2023 PULSE OXIMETRY, SPOT Andra A Molina 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 Work Phone: Start: 11-03-2023 Glucose quantitative blood xcpt reagent strip Guerita Molina MD PhD Work Phone: Start: 11-03-2023 PULSE OXIMETRY, SPOT Andra A Molina 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 Work Phone: Start: 11-03-2023 Renal function panel Andra A Molina 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 Work Phone: Start: 11-03-2023 PULSE OXIMETRY, SPOT Andra A Molina 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 Work Phone: Start: 11-03-2023 Glucose quantitative blood xcpt reagent strip Guerita Molina MD PhD Work Phone: Start: 11-03-2023 Glucose quantitative blood xcpt reagent strip Guerita Molina MD PhD Work Phone: Start: 11-03-2023 PULSE OXIMETRY, SPOT Andra A Molina 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 Work Phone: Start: 11-03-2023 Esophagogastroduodenoscopy transoral diagnostic Sera Lalito CABRERA Work Phone: Start: 11-03-2023 Susana-px dev eval pm/ldls pm phys/qhp in person Fela Dsouza MD Work Phone: Start: 11-03-2023 PULSE OXIMETRY, SPOT Andra A Molina 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 Work Phone: Start: 11-03-2023 Glucose quantitative blood xcpt reagent strip Guerita Molina MD PhD Work Phone: Start: 11-03-2023 PULSE OXIMETRY, SPOT Andra A Molina 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 Work Phone: Start: 11-02-2023 Glucose quantitative blood xcpt reagent strip Guerita Molina MD PhD Work Phone: Start: 11-02-2023 PULSE OXIMETRY, SPOT Andra A Molina 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 Work Phone: Start: 11-02-2023 End: 11-02-2023 Renal function panel Andra A Molina 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 Work Phone: Start: 11-02-2023 PULSE OXIMETRY, SPOT Andra A Molina 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 Work Phone: Start: 11-02-2023 End: 11-02-2023 Cyanocobalamin vitamin b-12 Trupti poe PA-C Work Phone: Start: 11-02-2023 PULSE OXIMETRY, SPOT Andra A Molina 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 Work Phone: Start: 11-02-2023 Glucose quantitative blood xcpt reagent strip Guerita Molina MD PhD Work Phone: Start: 11-02-2023 PULSE OXIMETRY, SPOT Andra A Molina 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 Work Phone: Start: 11-02-2023 PULSE OXIMETRY, SPOT Andra A Molina 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 Work Phone: Start: 11-02-2023 PULSE OXIMETRY, SPOT Andra A Molina 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 Work Phone: Start: 11-01-2023 Glucose quantitative blood xcpt reagent strip Guerita Molina MD PhD Work Phone: Start: 11-01-2023 PULSE OXIMETRY, SPOT Andra A Molina 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 Work Phone: Start: 11-01-2023 Radiologic exam chest 2 views Micah tirado 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 Work Phone: Start: 11-01-2023 Blood typing serologic rh (d) Micah tirado 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 Work Phone: Start: 11-01-2023 Renal function panel Andra Teja Molina 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 Work Phone: Start: 11-01-2023 Ecg routine ecg w/least 12 lds trcg only w/o i&r Micah Mccallum 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 Work Phone: Start: 11-01-2023 End: 11-01-2023 PULSE OXIMETRY, SPOT Andrasanto Molina 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 Work Phone: Start: 11-01-2023 Thyrotropin [Units/volume] in Serum or Plasma Nicole 2 Start: 10-19-2023 CT cervical spine without contrast JR Jackie Raymundo Work Phone: Start: 10-19-2023 CT of abdomen and pelvis without contrast JR Al Raymundo Work Phone: Start: 10-19-2023 CT of head without contrast JR Al luna Work Phone: Start: 10-19-2023 Plain chest X-ray JR Al Raymundo Work Phone: Start: 10-06-2023 Ct angiography chest w/contrast/noncontrast Milton Camejo MD Work Phone: Start: 09-14-2023 CL LHC & COR Angio JR Al Raymundo Work Phone: Start: 09-09-2023 SARS-CoV-2, Influenza & RSV (PCR) JR Heike Raymundo Work Phone: Start: 09-09-2023 Plain chest X-ray JR Al Raymundo Work Phone: Start: 07-01-2023 NUCLEAR STRESS TEST JOBY PINEDO Start: 06-23-2023 Plain chest X-ray JR Al Raymundo Work Phone: Start: 03-13-2023 Plain chest X-ray PHYSICIAN NO FAMILY Start: 03-12-2023 Plain chest X-ray PHYSICIAN NO FAMILY Start: 03-12-2023 Implantation of cardiac pacemaker PHYSIC SREE NO FAMILY Start: 03-09-2023 XR CHEST 2 VIEWS JOBY PINEDO Start: 02-26-2023 TRANSTHORACIC ECHO (TTE) COMPLETE GILSON PINEDO Start: 02-26-2023 Echo tthrc r-t 2d w/wom-mode compl spec&colr d Joby Pinedo MD Work Phone: Start: 02-23-2023 Ecg routine ecg w/least 12 lds w/i&r Joby Pinedo MD Work Phone: Start: 07-08-2022 Colonoscopy Yovany NILL Start: 05-02-2018 Exploratory laparotomy Yovany NILL Start: 05-02-2018 Right colectomy Yovany NILL Start: 04-28-2018 Colonoscopy Yovany NILL Start: 12-10-2017 Colonoscopy Yovany NILL Start: 01-27-2017 Laparoscopic cholecystectomy Yovany NIL L Start: 01-27-2017 Repair of umbilical hernia Yovany NILL Start: 12-15-2012 Colonoscopy Yovany NILL Start: 02-07-2009 Colonoscopy Yovany NILL Start: 02-02-2008 Colonoscopy Yovany NILL Arthroplasty of knee Yovany NILL Arthroplasty of right knee Tarik lópez ALANNAL Repair of musculoten dinous cuff of shoulder Yovany NILL Plan of Treatment Date Care Activity Detail Author Start: 10-25-2030 DTaP/Tdap/Td Vaccines (3 - Td or Tdap) DTaP/Tdap/Td Vaccines (3 - Td or Tdap) [facility] Start: 10-25-2030 [facility] Start: 04-12-2025 End: 04-12-2025 Patient encounter procedure 04/12/2025 1:40 PM EST Office Visit [facility] [address] [place] [address] Joby Pinedo MD [address] [place] [address] [facility] Start: 01-11-2025 Echocardiography Echocardiogram [facility] Start: 11-27-2024 Influenza vaccination [facility] Start: 11-13-2024 [facility] Start: 11-12-2024 Creatinine measurement [facility] Start: 11-12-2024 Echocardiography Echocardiogram [facility] Start: 11-12-2024 Potassium measurement [facility] Start: 11-11-2024 [facility] Start: 11-10-2024 End: 11-10-2025 Heart Transthoracic Transthoracic echo (TTE) complete Echocardiography Routine S/P TAVR (transcatheter aortic valve replacement) Expected: 11/10/2024, Expires: 11/10/2025 [facility] Service Area Work Phone: Comment on above: Expected: 11/10/2024, Expires: Start: 11-10-2024 End: 11-10-2024 ambulatory [facility] Start: 11-10-2024 End: 11-10-2024 Telemedicine consultation with patient 11/10/2024 9:00 AM EDT Telemedicine Clinical Support [facility] [address] [place] [id number] [facility] Start: 10-31-2024 Thyroid stimulating hormone measurement [facility] Start: 09-12-2024 Echocardiography Echocardiogram [facility] Start: 07-12-2024 End: 07-12-2024 Patient encounter procedure 07/12/2024 3:30 PM EDT Office Visit [facility] [address] [place] [address] Joby Pinedo MD [address] [place] [address] [facility] Start: 06-20-2024 End: 06-20-2024 Patient encounter procedure 06/20/2024 2:45 PM EDT Office Visit [facility] [address] [place] [id number] Dewey Chamorro, DO [address] [place] [address] [facility] Start: 05-30-2024 End: 05-30-2024 Patient encounter procedure 05/30/2024 2:45 PM EST Office Visit [facility] [address] [place] [phone] Dewey Chamorro, DO [address] [place] [address] [facility] Start: 05-02-2024 End: 05-02-2024 Patient encounter procedure 05/02/2024 2:45 PM EST Office Visit [facility] [address] [place] [phone] Dewey Chamorro, DO [address] [place] [address] [facility] Start: 02-27-2024 Echocardiography Echocardiogram [facility] Start: 02-01-2024 Hemoglobin A1c measurement [facility] Start: 01-25-2024 End: 01-25-2024 ambulatory [facility] Start: 01-25-2024 End: 01-25-2024 Patient encounter procedure 01/25/2024 2:10 PM EDT Office Visit [facility] [address] [place] [phone] Joby Pinedo MD [address] [place] [address] [facility] Start: 12-16-2023 End: 12-16-2023 ambulatory [facility] Start: 12-13-2023 End: 01-12-2024 US Heart Transthoracic [facility] Work Phone: Start: 11-28-2023 COVID-19 Vaccine () COVID-19 Vaccine () [facility] Start: 11-28-2023 Influenza vaccination [facility] Start: 11-17-2023 End: 02-12-2024 Basic metabolic 2000 panel - Serum or Plasma [facility] Work Phone: Start: 11-17-2023 End: 02-12-2024 CBC panel - Blood by Automated count [facility] Work Phone: Start: 10-26-2023 [facility] Start: 10-20-2023 Comprehensive metabolic 2000 panel - Serum or Plasma [facility] Start: 10-20-2023 [facility] Start: 10-19-2023 Referral to lodging facilities attendant [facility] Start: 10-19-2023 Referral to counter tender [facility] Start: 10-19-2023 Hospital admission [facility] Start: 10-19-2023 Physical therapy procedure [facility] Start: 10-19-2023 Referral to dual rate supervisor [facility] Start: 10-19-2023 Referral to occupational therapist [facility] Start: 10-19-2023 [facility] Start: 10-19-2023 [facility] Start: 10-13-2023 End: 10-13-2023 Patient encounter procedure 10/13/2023 3:30 PM EDT Office Visit [place] [address] [place] [address] Joby Pinedo MD [address] [facility] [address] [place] [address] [facility] Start: 10-13-2023 End: 10-12-2024 Basic metabolic 2000 panel - Serum or Plasma Basic Metabolic Panel Lab Routine Dilated cardiomyopathy (Multi) Edema, unspecified type Expected: 10/13/2023 (Approximate), Expires: 10/12/2024 [facility] Work Phone: Comment on above: Expected: 10/13/2023 (Approximate), Expi res: 10/12/2024 Start: 10-13-2023 End: 10-12-2025 Heart Transthoracic Transthoracic Echo Complete Echocardiography Routine Nonrheumatic aortic valve stenosis Pulmonary hypertension (Multi) Expected: 10/13/2023 (Approximate), Expires: 10/12/2025 [facility] Service Area Work Phone: Comment on above: Expected: 10/13/2023 (Approximate), Expi res: 10/12/2025 Start: 09-20-2023 [facility] Start: 09-19-2023 [facility] Start: 09-18-2023 [facility] Start: 09-17-2023 [facility] Start: 09-16-2023 End: 09-16-2023 Patient encounter procedure 09/16/2023 3:30 PM EDT Office Visit [facility] [address] [place] [address] Joby Pinedo MD [address] [facility] [address] [place] [address] [facility] Start: 09-16-2023 [facility] Start: 09-15-2023 End: 09-15-2023 [facility] Start: 09-14-2023 End: 09-14-2023 [facility] Start: 09-13-2023 [facility] Start: 09-12-2023 [facility] Start: 09-11-2023 [facility] Start: 09-10-2023 [facility] Start: 09-09-2023 [facility] Start: 09-09-2023 [facility] Start: 09-09-2023 [facility] Start: 09-09-2023 Fluoroscopy of Left Heart using Low Osmolar Contrast Fluoroscopy of Left Heart using Low Osmolar Contrast [facility] Start: 09-09-2023 Fluoroscopy of Multiple Coronary Arteries using Low Osmolar Contrast Fluoroscopy of Multiple Coronary Arteries using Low Osmolar Contrast [facility] Start: 09-09-2023 Measurement of Cardiac Sampling and Pressure, Left Heart, Percutaneous Approach Measurement of Cardiac Sampling and Pressure, Left Heart, Percutaneous Approach [facility] Start: 09-09-2023 Hospital admission [facility] Start: 09-09-2023 Referral to lodging facilities attendant [facility] Start: 09-09-2023 [facility] Start: 07-07-2023 End: 06-22-2024 Basic metabolic 2000 panel - Serum or Plasma Basic Metabolic Panel Lab Routine Shortness of breath Expected: 07/07/2023 (Approximate), Expires: 06/22/2024 [facility] Work Phone: Comment on above: Expected: 07/07/2023 (Approximate), Expi res: 06/22/2024 Start: 07-01-2023 End: 07-01-2023 Patient encounter procedure 07/01/2023 10:15 AM EDT [facility] [address] [address] [facility] Start: 07-01-2023 End: 07-01-2023 [facility] Start: 06-23-2023 End: 06-22-2025 NM Heart Perfusion W stress and W radionuclide IV Nuclear Stress Test Cardiac Nuclear Medicine Routine Shortness of breath Expected: 06/23/2023 (Approximate), Expires: 06/22/2025 [facility] Service Area Work Phone: Comment on above: Expected: 06/23/2023 (Approximate), Expi res: 06/22/2025 Start: 05-20-2023 COVID-19 Vaccine ( season) COVID-19 Vaccine () [facility] Start: 05-20-2023 COVID-19 Vaccine () COVID-19 Vaccine () [facility] Start: 05-20-2023 [facility] Start: 04-29-2023 End: 04-29-2023 Patient encounter procedure 04/29/2023 2:30 PM EST Office Visit [address] [place] [address] Joby Pinedo MD [address] [facility] [address] [place] [address] [facility] Start: 03-13-2023 [facility] Start: 03-13-2023 [facility] Start: 03-13-2023 Hospital admission [facility] Start: 03-12-2023 [facility] Start: 02-26-2023 End: 02-26-2023 Patient encounter procedure 02/26/2023 7:45 AM EST Appointment [address] [place] [address] [facility] Start: 02-23-2023 End: 02-23-2025 US Heart Transthoracic Transthoracic Echo (TTE) Complete Echocardiography Routine Persistent atrial fibrillation (CMS/HCC) Bradycardia Chronic systolic heart failure (CMS/HCC) Hypertension, unspecified type Expected: 02/23/2023 (Approximate), Expires: 02/23/2025 [facility] Service Area Work Phone: Comment on above: Expected: 02/23/2023 (Approximate), Expi res: 02/23/2025 Start: 09-01-2023 Influenza vaccination Influenza Vaccine (#1) [facility] Start: 04-28-2022 COVID-19 Vaccine (5 - Pfizer risk series) COVID-19 Vaccine (5 - Pfizer risk series) [facility] Start: 2016 RSV High Risk: (Elderly (60+) or Population) (1 - 1-dose 75+ series) RSV High Risk: (Elderly (60+) or Population) (1 - 1-dose 75+ series) [facility] Start: 2006 Pneumococcal Vaccine: 65+ Years (1 of 1 - PCV) Pneumococcal Vaccine: 65+ Years (1 of 1 - PCV) [facility] Start: 2001 RSV patients and/or patients aged 60+ years (1 - 1-dose 60+ series) RSV patients and/or patients aged 60+ years (1 - 1-dose 60+ series) [facility] Start: 2001 [facility] Start: 1960 Pneumococcal vaccination Pneumococcal Vaccine (1 of 2 - PCV) [facility] Start: 1960 Urine screening for protein [facility] Start: 1960 Zoster Vaccines (1 of 2) Zoster Vaccines (1 of 2) [facility] Start: 1960 [facility] Start: 10-08-1951 Diabetic foot examination Diabetes: Foot Exam [facility] Start: 10-08-1951 Glaucoma screening [facility] Start: 10-08-1947 Pneumococcal Vaccine: 65+ Years (1 - PCV) Pneumococcal Vaccine: 65+ Years (1 - PCV) [facility] Start: 10-08-1947 Pneumococcal Vaccine: 65+ Years (1 of 2 - PCV) Pneumococcal Vaccine: 65+ Years (1 of 2 - PCV) [facility] Start: 10-08-1947 [facility] Start: 1941 Creatinine measurement Creatinine Level [facility] Start: 1941 Hemoglobin A1c measurement Diabetes: Hemoglobin A1C [facility] Start: 1941 Lipid panel [facility] Start: 1941 Medicare Annual Wellness Visit [facility] Start: 1941 Potassium measurement Potassium Level [facility] Start: 1941 Thyroid stimulating hormone measurement TSH Level [facility] Start: 1941 Urine screening for protein Diabetes: Urine Protein Screening [facility] End: 11-12-[address] [facility] Work Phone: Cardiac catheterizat ion study [facility] Work Phone: CBC panel - Blood by Automated count [facility] Work Phone: ECG 12 lead [facility] Work Phone: Electrocardiogram, 1 2-lead PRN ACS symptoms [facility] Work Phone: Electrocardiogram, 1 2-lead PRN ACS symptoms [facility] Work Phone: Glucose [Mass/volume ] in Serum or Plasma [facility] Work Phone: End: 11-04-2023 Hemoglobin.gastrointestinal [Presence] in Stool --1st specimen [facility] Work Phone: Heparin unfractionat ed [Units/volume] in Platelet poor plasma by Chromogenic method [facility] Work Phone: Magnesium [Mass/volu me] in Serum or Plasma [facility] Work Phone: End: 07-01-2023 NM Heart Perfusion W stress and W radionuclide IV [facility] Work Phone: Comment on above: Once for 1 Occurrences starting 07/01/19 24 until 07/01/2023 Patient Education [facility] Work Phone: Patient referral [facility] Work Phone: Pulse oximetry, spot [facility] Work Phone: Renal function 2000 panel - Serum or Plasma [facility] Work Phone: End: 01-12-[address] [facility] Work Phone: Comment on above: Once for 1 Occurrences starting 01/12/20 24 until 01/12/2024 End: 11-13-2023 XR Chest Single view [facility] Service Area Work Phone: Immunizations Immunization Date Immunization Notes Care Provider Omid salmon 03-03-2022 COVID-19 (Pfizer) Bivalent Booster, Age 12Y+ JR Al Raymundo Work Phone: [facility] 03-03-2022 SARS-CoV-2 (COVID-19 ) [id number] Yovany MONDRAGONL [facility] [place] 12-27-2021 influenza virus vaccine, unspecified formulation Yovany NILL [facility] [place] 06-11-2021 COVID-19 (Moderna), Age 12+ JR Al Raymundo Work Phone: [facility] 06-11-2021 SARS-CoV-2 (COVID-19 ) mRNA-1273 vaccine Yovany NILL [facility] [place] 02-06-2021 COVID-19 (Pfizer) JR Al Raymundo Work Phone: [facility] 02-06-2021 SARS-CoV-2 (COVID-19 ) mRNA BNT-162b2 vax Yovany NILL [facility] 10-25-2020 diphtheria, tetanus toxoids and pertussis vaccine Joby Pinedo MD Work Phone: [facility] Work Phone: 06-14-2020 COVID-19 (Pfizer) JR Al Raymundo Work Phone: [facility] 06-14-2020 SARS-CoV-2 (COVID-19 ) mRNA BNT-162b2 vax Yovany NILL [facility] [place] 05-24-2020 COVID-19 (Pfizer) Al Raymundo Work Phone: [facility] 05-24-2020 SARS-CoV-2 (COVID-19 ) mRNA BNT-162b2 vax Yovany AVILA [facility] [place] 02-05-2017 tetanus and diphther ia toxoids, adsorbed, preservative free, for adult use (5 Lf of tetanus toxoid and 2 Lf of diphtheria toxoid) JR Al Raymundo Work Phone: [facility] 02-05-2017 tetanus toxoid, reduced diphtheria toxoid, and acellular pertussis vaccine, adsorbed Joby Pinedo MD Work Phone: [facility] Work Phone: 03-25-2009 novel [id number]-[id number], preservative-free, injectable Joby Pinedo MD Work Phone: [facility] Work Phone: 03-25-2009 influenza virus vaccine, unspecified formulation Joby Pinedo MD Work Phone: [facility] Work Phone: Payers Date Payer Category Payer Self-pay [id number] 2022 Medicare supplementa l policy (as second payer) [facility] [id number]. [id number] 2022 Private Health Insurance [id number] .[id number]. [id number] 2022 Unknown [id number]. 1.13.647. 2.7.3.731774.315 2006 Medicare [id number]. 1.13.647. 2.7.3.231800.315 1959 Medicare [id number] 1959 Unknown [id number] 1941 Unknown [id number] 2.16.840.1.580284.3.579. 2.593 1941 Unknown [id number] 2.16.840.1.184362.3.579. 2.593 1941 Unknown [id number] 2.16.840.1.285228.3.579. 2.727 1941 Unknown [id number] 2.16.840.1.451702.3.579. 2.727 1941 Unknown [id number] 2.16.840.1.036087.3.579. 2.727 1941 Unknown [id number] 2.16.840.1.774790.3.579. 2.727 1941 Unknown [id number] 2.16.840.1.135818.3.579. 2.1246 1941 Unknown [id number] 2.16.840.1.607510.3.579. 2.124 1941 Unknown [id number] 2.16.840.1.264579.3.579. 2.124 1941 Unknown [id number] 2.16.840.1.640660.3.579. 2.124 1941 Unknown [id number] 2.16.840.1.129885.3.579. 2.124 1941 Unknown [id number] 2.16.840.1.040838.3.579. 2.124 1942 Unknown [id number] 2.16.840.1.458553.3.579. 2.1245 1941 Unknown [id number] 2.16.840.1.761100.3.579. 2.1245 1941 Unknown [id number] 2.16.840.1.080788.3.579. 2.1258 1941 Unknown [id number] 2.16.840.1.497417.3.579. 2.1258 1941 Unknown [id number] 2.16.840.1.686083.3.579. 2.1258 1941 Unknown [id number] 2.16.840.1.540123.3.579. 2.1258 1941 Unknown [id number] 2.840.1.370519.3.579. 2.1258 1941 Unknown [id number] 2..840.1.178783.3.579. 2.1243 1941 Unknown [id number] 2.840.1.925697.3.579. 2.1243 1941 Unknown [id number] 2..840.1.898933.3.579. 2.1243 1941 Unknown [id number] 2.840.1.155611.3.579. 2.1245 Unknown [id number] 2.16.840.1.485912.3.579. 2.531 Unknown [id number] 2.16.840.1.415386.3.579. 2.531 Unknown [id number] 2.16.840.1.913169.3.579. 2.531 Unknown [id number] 2.16.840.1.772087.3.579. 2.531 Unknown [id number] 2.16.840.1.137802.3.579. 2.531 Unknown [id number] 2.16.840.1.383495.3.579. 2.531 Unknown [id number] 2.16.840.1.902088.3.579. 2.531 Unknown [id number] 2.16.840.1.792257.3.579. 2.531 Social History Date Type Detail Facility [facility] Start: 1940 Sex Assigned At Male [facility] Start: 06-03-2022 End: 11-13-2024 Tobacco smoking status Ex-smoker (finding) [facility] [place] Start: 02-05-2023 Tobacco smoking status Never [facility] [place] Start: 02-23-2023 End: 11-01-2023 Sex Assigned At Male Jose Null [facility] End: 03-29-1979 History of tobacco use Current smoker [facility] Work Phone: End: 03-29-1979 History of tobacco use Cigarette Smoker [facility] Work Phone: Start: 02-23-2023 End: 04-11-2024 Tobacco use and exposure Smokeless tobacco non-user [facility] Work Phone: Start: 02-23-2023 End: 01-25-2024 Alcohol intake Current drinker of alcohol (finding) [facility] Work Phone: Start: 02-23-2023 End: 11-01-2023 History of Social function [facility] Start: 1940 Sex Assigned At Not on file [facility] Work Phone: Start: 02-13-2023 End: 07-12-2024 Exposure to SARS-CoV-2 (event) Not sure [facility] Start: 06-23-2023 End: 11-10-2024 Alcohol intake Ex-drinker (finding) [facility] Work Phone: How often to you hav e a drink containing alcohol? Never [facility] In the past 12 month s, was there a time when you were not able to pay the mortgage or rent on time? No [facility] Work Phone: Start: 01-25-2024 Alcohol Comment rarely [facility] Work Phone: Start: 04-08-2024 End: 08-09-2024 Sex Male (finding) [facility] Medical Equipment Procedure Code Equipment Code Equipment Origin al Text Equipment Identifier Dates Insertion, pacemaker Endocardial pacing lead [id number] FDA Start: 03-12-2023 Insertion, pacemaker Single-chamber implantable pacemaker, rate-responsive ()[id number] FDA Start: 03-12-2023 [id number] Start: 11-12-2023 Goals Date Patient Goal Desired Activity /State Functional Status Date Assessment Result Facility 10-26-2023 Functional status Patient Not at Baseline [facility] Work Phone: 10-19-2023 Functional status Patient Not at Baseline [facility] Work Phone: 09-15-2023 Functional status Patient at Baseline [facility] Work Phone: 09-09-2023 Functional status Patient at Baseline [facility] Work Phone: 03-13-2023 Functional status Patient at Baseline [facility] Work Phone: 06-03-2022 Functional Status N/A [facility] Mental Status Date Assessment Result Facility 10-26-2023 Cognitive function Cognitive Sta tus Patient at Baseline [facility] Work Phone: 10-19-2023 Cognitive function Cognitive Sta tus Patient at Baseline [facility] Work Phone: 09-15-2023 Cognitive function Cognitive Sta tus Patient at Baseline [facility] Work Phone: 09-09-2023 Cognitive function Cognitive Sta tus Patient at Baseline [facility] Work Phone: 03-13-2023 Cognitive function Cognitive Sta tus Patient at Baseline [facility] Work Phone: Clinical Notes 05-07-2020 to 11-10-2024 Medardo Teja Tsai, 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 - 11/10/2024 9:00 AM Jet Pinedo MD - 07/12/2024 3:30 PM EDTPatient InstructionsAttachHorace Chamorro DO - 05/30/2024 2:45 PM ESTPatient Instructions Note Date & Type Note Facility 11-10-2024 History of Present illness Narrative Structural Heart Follow up visit Shahid Sanchez is a 84 y.o. male with a medical history of HTN, DM, HLD, A-fib, sick sinus syndrome s/p pacemaker, RA, HFrEF, severe aortic stenosis, CAD, GUNNER (not using CPAP), chronic respiratory failure from CHF on 2.5LO2. s/p 34 mm Evolut FX + presents for 1 year follow up denies SOB,CERVANTES, fatigue No results found for this or any previous visit (from the past 96 hours). Transthoracic echo (TTE) complete Result Date: 01/17/[address], [address] [address] TRANSTHORACIC ECHOCARDIOGRAM REPORT Patient Name: SHAHID SANCHEZ Reading Physician: [id number] Joby Pinedo MD Study Date: 01/12/2024 Ordering Provider: [id number] MOLINA MRN/PID: [id number] Fellow: Nurse: Date of /Age: 7 1940 / 83 years Regional Clinical Research Associate: Wen Ron RDCS, MACKENZIE, RVT Gender: M Additional Staff: Height: 180.34 cm Admit Date: Weight: 90.27 kg Admission Status: Outpatient BSA / BMI: 2.10 m2 / 27.76 Department Location: [facility] kg/[address] Blood Pressure: 134 /62 mmHg Study Type: TRANSTHORACIC ECHO (TTE) COMPLETE Diagnosis/ICD: 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 Evolut FX #34, HX , AFib, CAD, CHF, HTN, DM, Pacemaker, Dilated CM, CPT Codes: Echo Complete w Full Doppler-[id number] Study Detail: The following Echo studies were [...] AoV Mean P.0 mmHg (1.7-11.5mmHg) LVOT Max [place]: 0.75 m/s (<=1.1m/s) AoV VTI: 46.00 cm (18-25cm) LVOT VTI: 16.50 cm LVOT Diameter: 2.00 cm (1.8-2.4cm) AoV Area, VTI: 1.13 cm2 (2.5-5.5cm2) AoV Area,Vmax: 1.13 cm2 (2.5-4.5cm2) AoV Dimensionless Index: 0.36 TRICUSPID VALVE/RVSP: Normal Ranges: Peak TR Velocity: 3.03 m/s RV Syst Pressure: 40 mmHg (< 30mmHg) PULMONIC VALVE: Normal Ranges: PV Max Charlotte: 0.7 m/s (0.6-0.9m/s) PV Max P.2 mmHg [id number] Joby Pinedo MD Electronically signed on 01/17/2024 at 3:44:31 PM Final Transthoracic Echo (TTE) Limited Result Date: 11/15/2023 [facility], [address] [place] [address] and TRANSTHORACIC ECHOCARDIOGRAM REPORT Patient Name: SHAHID SANCHEZ Reading Physician: [id number] Eddie Syed MD Study Date: 11/13/2023 Ordering Provider: [id number] CARON LEÓN MRN/PID: [id number] Fellow: Nurse: Jill Painter RN Date of /Age: 7 1940 / 83 years Regional Clinical Research Associate: Lulú Allen [facility] Gender: M Additional Staff: Height: 180.34 cm Admit Date: 11/11/2023 Weight: 90.26 kg Admission Status: Inpatient - Priority discharge BSA / BMI: 2.10 m2 / 27.75 kg/m2 Blood Pressure: 139/51 mmHg Department Location: [facility] Non Invasive Study Type: TRANSTHORACIC ECHO (TTE) LIMITED Diagnosis/ICD: Nonrheumatic aortic (valve) stenosis-I35.0 Indication: S/P TAVR CPT Code: Echo Limited-28194; Doppler Limited-35315; Color Doppler-[id number] Patient History: Diabetes: Yes Pertinent History: A-Fib, CHF, HTN, CAD, Cardiomyopathy and Dyspnea. Aortic stenosis,s/p TAVR 34 Evolut FX (11/22/23),PHTN,CKD,GUNNER,Colon CA,Appendage thrombus (OSH),. Study Detail: The following Echo studies were performed: 2D, M-Mode, Doppler and color flow. Technically challenging study due to body habitus and patient lying in supine position. Definity used as a contrast agent for endocardial border definition. Total contrast used for this procedure was 2 mL via IV push. Patient has a pacemaker. PHYSICIAN INTERPRETATION: Left Ventricle: Left ventricular ejection fraction is low normal, by visual estimate at 50-55%. The patient is in atrial fibrillation which may influence the estimate of left ventricular function and transvalvular flows. There are no regional left ventricular wall motion abnormalities. The left ventricular cavity size is normal. Abnormal (paradoxical) septal motion, consistent with RV pacemaker. Left ventricular diastolic filling was not assessed. Left Atrium: The left atrium is severely dilated. Right Ventricle: The right ventricle is mildly enlarged. There is mildly reduced right ventricular systolic function. A device is visualized in the right ventricle. Right Atrium: The right atrium is mild to moderately dilated. There is a device visualized in the right atrium. Aortic Valve: There is a prosthetic aortic valve present. The aortic valve dimensionless index is 0.58. There is a Medtronic transcatheter aortic valve replacement, with a 34 reported size. There is no evidence of aortic valve regurgitation. The peak instantaneous gradient of the aortic valve is 15.5 mmHg. The mean gradient of the aortic valve is 8.1 mmHg. Normal gradients and DI for a TAVR. Mitral Valve: The mitral valve is normal in structure. There is mild to moderate mitral annular calcification. There is trace mitral valve regurgitation. Tricuspid Valve: The tricuspid valve is structurally normal. Tricuspid regurgitation was not assessed. Pulmonic Valve: The pulmonic valve is structurally normal. There is trace pulmonic valve regurgitation. Pericardium: There is a trivial pericardial effusion. Aorta: The aortic root is normal. In comparison to the previous echocardiogram(s): Compared with study dated 11/12/2023, no significant change . Stable gradients across TAVR. CONCLUSIONS: 1. Left ventricular ejection fraction is low normal, by visual estimate at 50-55%. 2. Abnormal septal motion consistent with RV pacemaker. 3. There is mildly reduced right ventricular systolic function. 4. Mildly enlarged right ventricle. 5. The left atrium is severely dilated. 6. The right atrium is mild to moderately dilated. 7. There is a transcatheter aortic valve replacement. 8. Normal gradients and DI for a TAVR. 9. The patient is in atrial fibrillation which may influence the estimate of left ventricular function and transvalvular flows. 10. Compared with study dated 11/12/2023, no significant change . Stable gradients across TAVR. RECOMMENDATIONS: Utilizing an FDA cleared automated machine learning algorithm (RoombeatsGo Heart Failure by [employer]), the analysis of the apical 4-chamber echocardiogram suggests the presence of heart failure with preserved ejection fraction (HFpEF). Clinical correlation looking for additional heart failure signs and symptoms is recommended, as a definite diagnosis of heart failure cannot be made by imaging alone. Per the ACC/AHA/HFSA universal diagnosis of heart failure, HFpEF is defined as 1) signs and symptoms leading to clinical diagnosis of heart failure, 2) an ejection fraction of at least 50%, and 3) evidence of elevated intra-cardiac filling pressures by echocardiography, BNP elevation, or catheterization. QUANTITATIVE DATA SUMMARY: 2D MEASUREMENTS: Normal Ranges: LAs: 4.27 cm (2.7-4.0cm) IVSd: 1.02 cm (0.6-1.1cm) LVPWd: 1.23 cm (0.6-1.1cm) LVIDd: 4.79 cm (3.9-5.9cm) LVIDs: 3.49 cm LV Mass Index: 95 g/m2 LVEDV Index: 67 ml/m2 LV % FS 27.0 % LA VOLUME: Normal Ranges: LA Vol A4C: 100.7 ml (22+/-6mL/m2) LA Vol Index A4C: 47.8ml/m2 LA Area A4C: 29.0 cm2 LA [place] A4C: 7.1 cm LA Vol A4C: 97.0 ml RA VOLUME BY A/L METHOD: Normal Ranges: RA Area A4C: 22.6 cm2 M-MODE MEASUREMENTS: Normal Ranges: Ao Root: 3.50 cm (2.0-3.7cm) LAs: 4.30 cm (2.7-4.0cm) LV SYSTOLIC FUNCTION BY 2D PLANIMETRY (MOD): Normal Ranges: EF-A4C View: 57 % (>=55%) EF-A2C View: 56 % EF-Biplane: 57 % EF-Visual: 53 % LV EF Reported: 53 % LV DIASTOLIC FUNCTION: Normal Ranges: MV Peak E: 1.52 m/s (0.7-1.2 m/s) MV e' 0.060 m/s (>8.0) MV lateral e' 0.07 m/s MV medial e' 0.05 m/s E/e' Ratio: 25.34 (<8.0) AORTIC VALVE: Normal Ranges: AoV Vmax: 1.97 m/s (<=1.7m/s) AoV Peak P.5 mmHg (<20mmHg) AoV Mean P.1 mmHg (1.7-11.5mmHg) LVOT Max [place]: 1.25 m/s (<=1.1m/s) AoV VTI: 44.39 cm (18-25cm) LVOT VTI: 25.57 cm LVOT Diameter: 1.99 cm (1.8-2.4cm) AoV Area, VTI: 1.79 cm2 (2.5-5.5cm2) AoV Area,Vmax: 1.97 cm2 (2.5-4.5cm2) AoV Dimensionless Index: 0.58 RIGHT VENTRICLE: TAPSE: 13.0 mm RV s' 0.08 m/s [id number] Eddie Syed MD Electronically signed on 11/13/2023 at 2:51:07 PM Final (Updated) Transthoracic Echo (TTE) Limited Result Date: 11/12/2023 [facility], [address] [place] [address] and TRANSTHORACIC ECHOCARDIOGRAM REPORT Patient Name: SHAHID SANCHEZ Chastity Physician: [id number] Eddie ySed MD Study Date: 11/12/2023 Ordering Provider: [id number] MOLINA MRN/PID: [id number] Fellow: Nurse: Date of /Age: 7 1940 / 83 years Regional Clinical Research Associate: Jena Ag RDCS Gender: M Additional Staff: Height: 180.34 cm Admit Date: Weight: 90.27 kg Admission Status: Inpatient - Routine BSA / BMI: 2.10 m2 / 27.76 kg/m2 Blood Pressure: 132/66 mmHg Department Location: [facility] Import Export Manager Study Type: TRANSTHORACIC ECHO (TTE) LIMITED Diagnosis/ICD: Nonrheumatic aortic (valve) stenosis-I35.0 Indication: TAVR periprocedure CPT Code: Echo Limited-78278; Doppler Limited-04361; Color Doppler-79942 Patient History: Pertinent History: HTN, DM, HLD, A-fib, sss s/p pacemaker, HFrEF, CAD. Study Detail: The following Echo studies were performed: 2D, M-Mode, Doppler and color flow. Technically challenging study due to patient lying in supine position and prominent lung artifact. Definity used as a contrast agent for endocardial border definition. Total contrast used for this procedure was 3 mL via IV push. PHYSICIAN INTERPRETATION: Left Ventricle: Left ventricular ejection fraction is low normal, by visual estimate at 50-55%. The patient is in atrial fibrillation which may influence the estimate of left ventricular function and transvalvular flows. There are no regional left ventricular wall motion abnormalities. The left ventricular cavity size is normal. Left ventricular diastolic filling was not assessed. Left Atrium: The left atrium is enlarged. Right Ventricle: The right ventricle was not well visualized. Right ventricular systolic function not assessed. Right Atrium: The right atrium was not well visualized. Aortic Valve: The aortic valve appears structurally normal. There is moderate to severe aortic valve cusp calcification. There is evidence of severe aortic valve stenosis. The aortic valve dimensionless index is 0.21. There is trace aortic valve regurgitation. The peak instantaneous gradient of the aortic valve is 34.8 mmHg. The mean gradient of the aortic valve is 19.0 mmHg. Mitral Valve: The mitral valve is normal in structure. There is moderate to severe mitral annular calcification. There is mild mitral valve regurgitation. Tricuspid Valve: The tricuspid valve is structurally normal. There is trace tricuspid regurgitation. Pulmonic Valve: The pulmonic valve is structurally normal. There is trace pulmonic valve regurgitation. Pericardium: There is a trivial pericardial effusion. Aorta: The aortic root is normal. In comparison to the previous echocardiogram(s): Although previous studies are available for review, a comparison with the current echocardiogram is not feasible due to its limited scope or image quality. Post Transcatheter Aortic Valve Placement (TAVR): The peak instantaneous gradient of the aortic valve is 7.6 mmHg. The mean gradient of the aortic valve is 4.0 mmHg. There is a Medtronic transcatheter aortic valve replacement, with a 34 mm reported size. Nomrla gradients and DI. Trivial perivalvular leak. No new effusions. CONCLUSIONS: 1. Left ventricular ejection fraction is low normal, by visual estimate at 50-55%. 2. The left atrium is enlarged. 3. There is moderate to severe mitral annular calcification. 4. Severe aortic valve stenosis. 5. There is moderate to severe aortic valve cusp calcification. 6. The patient is in atrial fibrillation which may influence the estimate of left ventricular function and transvalvular flows. 7. Post TAVR - Nomrla gradients and DI. Trivial perivalvular leak. No new effusions. QUANTITATIVE DATA SUMMARY: 2D MEASUREMENTS: Normal Ranges: LAs: 4.30 cm (2.7-4.0cm) IVSd: 1.10 cm (0.6-1.1cm) LVPWd: 1.40 cm (0.6-1.1cm) LVIDd: 4.60 cm (3.9-5.9cm) LVIDs: 3.50 cm LV Mass Index: 103 g/m2 LVEDV Index: 67 ml/m2 LV % FS 23.9 % LV SYSTOLIC FUNCTION BY 2D PLANIMETRY (MOD): Normal Ranges: EF-A4C View: 48 % (>=55%) EF-A2C View: 45 % EF-Biplane: 47 % EF-Visual: 53 % LV EF Reported: 53 % AORTIC VALVE: Normal Ranges: AoV Vmax: 2.95 m/s (<=1.7m/s) AoV Vmax Post TAVR: 1.38 m/s (<=1.7m/s) AoV Peak P.8 mmHg (<20mmHg) AoV Peak PG Post TAVR: 7.6 mmHg (<20mmHg) AoV Mean P.0 mmHg (1.7-11.5mmHg) AoV Mean PG Post TAVR: 4.0 mmHg (1.7-11.5mmHg) LVOT Max [place]: 0.60 m/s (<=1.1m/s) LVOT Max [place] Post TAVR: 0.77 m/s (<=1.1m/s) AoV VTI: 69.50 cm (18-25cm) AoV VTI Post TAVR: 29.90 cm (18-25cm) LVOT VTI: 14.80 cm LVOT VTI Post TAVR: 16.80 cm LVOT Diameter: 2.40 cm (1.8-2.4cm) LVOT Diameter Post TAVR: 2.10 cm (1.8-2.4cm) AoV Area, VTI: 0.96 cm2 (2.5-5.5cm2) AoV Area, VTI Post TAVR: 1.95 cm2 (2.5-5.5cm2) AoV Area,Vmax: 0.92 cm2 (2.5-4.5cm2) AoV Area,Vmax Post TAVR: 1.93 cm2 (2.5-4.5cm2) AoV Dimensionless Index: 0.21 AoV Dimensionless Index Post TAVR: 0.56 [id number] Eddie Syed MD Electronically signed on 11/12/2023 at 2:38:01 PM Final Heart Failure Follow up NYHA class 1 Edema Stable Dyspnea on Exertion Denies Fatigue Improved Exercise Intolerance Denies Orthopnea Denies PND Denies Chest pain No Syncope No Palpitations No Weight gain No Weight loss No KCCQ Questionnaire 1 Heart failure affects different people in different ways. Some feel shortness of breath while others feel fatigue. Please indicate how much you are limited by heart failure (shortness of breath or fatigue) in your ability to do the following activities over the past 2 weeks. A.) Showering/bathing 5. Not at All B.) Walking 1 block on level ground 4. Slightly C.) Hurrying or Jogging 6. Limited for other reastons 2. Over the past 2 weeks, how many times did you have swelling in your feet, ankles or legs when you woke up in the morning? 5. Never 3. Over the past 2 weeks, on average, how many times has fatigue limited your ability to do what you wanted? 3. At least once a day 4. Over the past 2 weeks, on average, how many times has shortness of breath limited your ability to do what you wanted? 7. Never 5. Over the past 2 weeks, on average, how many times have you been forced to sleep sitting up in a chair or with at least 3 pillows to prop you up because of shortness of breath? Never 6. Over the past 2 weeks, how much has your heart failure limited your enjoyment of life? It has slightly limited my enjoyment of life 7. If you had to spend the rest of your life with your heart failure the way it is right now, how would you feel about this? 3. Somewhat satisfied 8. How much does your heart failure affect your lifestyle? Please indicate how your heart failure may have limited yourparticipation in the following activities over the past 2 weeks A.) Hobbies, recreational activities 4. 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 Slightly limited C.) Visiting family or friends out of your home 5. Did not limit at all Impression: Doing well clinically has some fatigue when walking to mailbox. Discussed exercise routine to help build muscle to increase stamina. BP 105/60 has PPM. Edema to bilat lower extremities at end of day. Diuretic recently changed d/t worsening kidney function (patient unsure of med) BMP and CBC reviewed significant for chronic anemia with Hgb 8.8 and CKD with Crn 1.88 Plan: - Cont Metoprolol - Echo now (ordered) - Cont Eliquis - Cont to increase activity as tolerated - f/u with PCP and Cards as directed - Life-long Dental SBE prophylaxis needed Post procedure (complete) echo requirements per TVT registry -1 month echo to be done 23-75 days post implant -1 year echo to be done 305-425 days post implant - Annually after implant Virtual or Telephone Consent An interactive audio and video telecommunication system which permits real time communications between the patient (at the originating site) and provider (at the distant site) was utilized to provide this telehealth service. Verbal consent was requested and obtained from Shahid Sanchez on this date, 11/10/24 for a telehealth visit and the patient's location was confirmed at the time of the visit. documented in this encounter [facility] Work Phone: 07-12-2024 History of Present illness Narrative Chief Complaint Patient presents with Follow-up 6 month with EKG, chronic systolic heart failure Subjective Shahid Sanchez is a 83 y.o. male HPI Patient is here for follow-up to management for chronic systolic heart failure that improved following aortic valve replacement, coronary artery disease, chronic atrial fibrillation with AV node dysfunction requiring pacemaker. Since last time he was seen he is doing well. He denies complaint of chest pain, palpitation, lightheadedness, dizziness or syncope. His main issue is related to his rheumatoid arthritis. His echocardiogram last year showed ejection fraction in the range of 50 to 55% with good bioprosthetic aortic valve function with moderate degree of pulmonary hypertension. Recent lab noted and reviewed with him Assessment 1. 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 Currently decompensated with evidence of volume overload. Ejection fraction has improved from 35 up to 50 following his TAVR 2. Severe aortic stenosis. Status post recent TAVR without any complication 3. Single-vessel coronary artery disease with occlusion of the RCA 4. Chronic atrial fibrillation with slow suggestive of AV node dysfunction. Status post recent permanent pacemaker implantation 5. Long-term anticoagulation due to chronic atrial fibrillation 6. Hypertension 7. Diabetes mellitus 8. Rheumatoid arthritis 9. History of colon cancer status postresection with no recurrence 10. Pulmonary hypertension 11. Chronic kidney disease stage III 12. Status post permanent pacemaker with good device function based on recent device check Plan 1. I advised the patient to continue present medical regimen 2. I reviewed his recent lab work and previous echo and device check 3. I reviewed with him endocarditis prophylaxis 4. I will see him back in 9 months Review of Systems Cardiovascular: Positive for dyspnea on exertion. Vitals: 07/12/24 1547 BP: 130/52 BP Location: Left arm Patient Position: Sitting Pulse: 69 Weight: 96.7 kg (213 lb 3.2 oz) Height: 1.829 m (6') EKG done in office today Objective Physical Exam Constitutional: Appearance: Normal appearance. HENT: Nose: Nose normal. Neck: Vascular: No carotid bruit. Cardiovascular: Rate and Rhythm: Normal rate. Rhythm irregularly irregular. Pulses: Normal pulses. Heart sounds: Murmur heard. Systolic murmur is present with a grade of 2/6. Pulmonary: Effort: Pulmonary effort is normal. Abdominal: General: Bowel sounds are normal. Palpations: Abdomen is soft. Musculoskeletal: General: Normal range of motion. Cervical back: Normal range of motion. Right lower leg: No edema. Left lower leg: No edema. Skin: General: Skin is warm and dry. Neurological: General: No focal deficit present. Mental Status: He is alert. Psychiatric: Mood and Affect: Mood normal. Behavior: Behavior normal. Thought Content: Thought content normal. Judgment: Judgment normal. Allergies Patient has no known allergies. 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 cholecalciferol (VITAMIN D-3) 5,000 Units, oral, Daily colesevelam (WELCHOL) 1,250 mg, oral, 2 times daily PRN, Take with meal(s) and a liquid. dutasteride (AVODART) 0.5 mg, Daily Eliquis 5 mg, oral, 2 times daily folic acid (FOLVITE) 800 mcg, oral, Daily Kerendia 20 mg tablet 1 tablet, Daily (30) levothyroxine (SYNTHROID, LEVOXYL) 50 mcg, oral, Daily, 1 tab wed-wed and Wednesday take 2 tabs metFORMIN (GLUCOPHAGE) 850 mg, oral, Nightly, take with evening meal methotrexate (Trexall) 2.5 mg tablet 6 tablets, Weekly metoprolol succinate XL (TOPROL-XL) 25 mg, oral, Daily, Do not crush or chew. montelukast (SINGULAIR) 10 mg, oral, 4 times weekly, MWFSu oxyCODONE-acetaminophen (Percocet) 5-325 mg tablet 1 tablet, Every 4 hours PRN pantoprazole (PROTONIX) 40 mg, oral, 2 times daily, Do not crush, chew, or split. rosuvastatin (CRESTOR) 10 mg, oral, 4 times weekly, MWFSu Verquvo 10 mg, oral, Daily Assessment/Plan 1. Chronic systolic heart failure Follow Up In Cardiology 2. Single vessel coronary artery disease Follow Up In Cardiology 3. Severe aortic stenosis 4. Pulmonary hypertension (Multi) 5. Persistent atrial fibrillation (Multi) ECG 12 Lead 6. Nonrheumatic aortic valve stenosis 7. Hypercholesteremia 8. Primary hypertension 9. History of transcatheter aortic valve replacement (TAVR) 10. Bradycardia 11. 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 Shortness of breath 14. Former smoker 15. BMI 28.0-28.9,adult Scribe Attestation By signing my name below, I, Mnina Lane LPN, Scribe attest that this documentation has been prepared under the direction and in the presence of Joby Pinedo MD. Provider Attestation - Scribe documentation All medical record entries made by the Thomasibe were at my direction and personally dictated by me. I have reviewed the chart and agree that the record accurately reflects my personal performance of the history, physical exam, discussion and plan. documented in this encounter [facility] Work Phone: 07-12-2024 Instructions Minna Myers LPN - 07/12/2024 3:30 PM EDT Please bring all medicines, vitamins, and herbal supplements with you when you come to the office. Prescriptions will not be filled unless you are compliant with your follow up appointments or have a follow up appointment scheduled as per instruction of your physician. Refills should be requested at the time of your visit. BMI was above normal measurement. Current weight: 96.7 kg (213 lb 3.2 oz) Weight change since last visit (-) denotes wt loss -8.8 lbs Weight loss needed to achieve BMI 25: 29.3 Lbs Weight loss needed to achieve BMI 30: -7.5 Lbs Provided instructions on dietary changes Provided instructions on exercise. The following attachments cannot be sent through Care Everywhere.DASH Diet (Malagasy)documented in this encounter [facility] Work Phone: 05-30-2024 History of Present illness Narrative Subjective Patient ID: Shahid Sanchez is a 83 y.o. male who presents for Epistaxis (Nose Bleed) (3 week ken[place] ) Epistaxis (Nose Bleed) 82-year-old white male presents today for recheck of frequent epistaxis. Patient describes no further episodes of nasal bleeding after blowing his nose. Symptoms have been isolated to the right side. Currently takes blood thinner for cardiac reasons. Recent aortic valve replacement Review of Systems HENT: Positive for nosebleeds. Patient does describe recurrent difficulties with nasal bleeding on the right side as well as nasal dryness. Denies any nasal pain or sinus pressure. Does describe hoarseness of his throat with irritation which is more severe when lying down. Does describe significant difficulties with fatigue and shortness of breath. This has been going on since getting a cardiac pacemaker. The rest of his review of systems is negative. Allergies as of 05/30/2024 (No Known Allergies) Past Medical History: Diagnosis Date A-fib ([facility]) 08/09/2023 Abnormal ECG 01/21/2017 Adenocarcinoma of colon ([facility]) 02/23/2023 Benign neoplasm of descending colon 02/23/2023 Benign neoplasm of descending colon 08/09/2023 Benign neoplasm of transverse colon 02/23/2023 BMI 29.0-29.9,adult 08/09/2023 BMI 32.0-32.9,adult 06/23/2023 Bradycardia 02/23/2023 Chronic systolic heart failure ([facility]) 02/23/2023 Diabetes mellitus ([facility]) 02/23/2023 Former smoker 01/25/2024 Heart block, AV 08/09/2023 Heart disease, hypertensive ([facility]) 08/09/2023 Heart failure ([facility]) 02/23/2023 History of transcatheter aortic valve replacement (TAVR) 10/13/2023 HTN (hypertension) ([facility]) 02/23/2023 Hypercholesteremia ([facility]) 02/23/2023 Hypothyroidism ([facility]) 02/23/2023 Immunosuppression ([facility]) 02/23/2023 Kidney disease 02/23/2023 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/23/2023 Nonrheumatic aortic valve stenosis 10/13/2023 Other specified anemias 11/04/2023 Persistent atrial fibrillation (HCC) ([facility]) 02/23/2023 Personal history of colon cancer, stage II 02/23/2023 Positive colorectal cancer screening using Cologuard test 02/23/2023 Pulmonary hypertension ([facility]) 06/23/2023 Rheumatoid arthritis ([facility]) 02/23/2023 Shortness of breath 02/23/2023 Single vessel coronary artery disease ([facility]) 10/13/2023 Sleep apnea 02/23/2023 Vitamin D deficiency 02/23/2023 Current Outpatient Medications: bumetanide (Bumex) 1 MG tablet, Take 1 mg by mouth Daily, Disp: , Rfl: Bydureon BCise 2 MG/0.85ML pen, inject 2 milligrams subcutaneously every week in ABDOMEN,THIGH,OR... (REFER TO PRESCRIPTION NOTES)., Disp: , Rfl: colesevelam (Welchol) 625 MG tablet, Take 1,250 mg by mouth 2 (two) times a day as needed, Disp: , Rfl: dutasteride (Avodart) 0.5 MG capsule, 1 capsule 1 (one) time each day at the same time, Disp: , Rfl: Eliquis 5 MG tablet, Take 5 mg by mouth in the morning and 5 mg before bedtime., Disp: , Rfl: Entresto 24-26 MG tablet, Take 1 tablet by mouth in the morning and 1 tablet in the evening., Disp: , Rfl: famotidine (Pepcid) 40 MG tablet, TAKE 1 TABLET BY MOUTH AT BEDTIME EVERY DAY, Disp: , Rfl: Folic Acid 20 MG capsule, Daily, Disp: , Rfl: furosemide (Lasix) 40 MG tablet, Take 40 mg by mouth in the morning., Disp: , Rfl: inFLIXimab (Remicade) 100 MG injection, Infuse 600 mg into a venous catheter in the morning., Disp: , Rfl: Kerendia 20 MG tablet, Take 20 mg by mouth Daily, Disp: , Rfl: levothyroxine (Synthroid, Levoxyl) 50 MCG tablet, Take 50 mcg by mouth in the morning., Disp: , Rfl: metFORMIN (Glucophage) 850 MG tablet, Take 50 mg by mouth in the morning., Disp: , Rfl: methotrexate 2.5 MG tablet, take 6 tablets by mouth every week, Disp: , Rfl: metoprolol succinate XL (Toprol-XL) 25 MG 24 hr tablet, Take 25 mg by mouth in the morning., Disp: , Rfl: montelukast (Singulair) 10 MG tablet, Take 10 mg by mouth Daily, Disp: , Rfl: Ozempic, 2 MG/DOSE, 8 MG/3ML solution pen-injector, INJECT 2 (TWO) mg SUBCUTANEOUSLY (UNDER THE SKIN) EVERY WEEK, Disp: , Rfl: pantoprazole (ProtoNix) 40 MG EC tablet, TAKE 1 TABLET BY MOUTH IN THE MORNING 30 MINUTES BEFORE MEALS, Disp: , Rfl: pioglitazone (Actos) 15 MG tablet, 1 (one) time each day at the same time, Disp: , Rfl: rosuvastatin (Crestor) 10 MG tablet, Take 10 mg by mouth in the morning., Disp: , Rfl: tamsulosin (Flomax) 0.4 MG 24 hr capsule, Take 0.4 mg by mouth at bedtime, Disp: , Rfl: Verquvo 10 MG tablet, Take 1 tablet by mouth Daily, Disp: , Rfl: Past Surgical History: Procedure Laterality Date CARDIAC PACEMAKER PLACEMENT 04/29/2023 Social History Socioeconomic History Marital status: Spouse name: Not on file Number of children: Not on file Years of education: Not on file Highest education level: Not on file Occupational History Not on file Tobacco Use Smoking status: Former Current packs/day: 0.00 Types: Cigarettes Quit date: 1979 Years since quittin.2 Smokeless tobacco: Never Substance and Sexual Activity Alcohol use: Not Currently Drug use: Defer Sexual activity: Not on file Other Topics Concern Not on file Social History Narrative Not on file Social Drivers of Health Financial Resource Strain: Low Risk (11/01/2023) Received from [facility] Overall Financial Resource Strain (CARDIA) Difficulty of Paying Living Expenses: Not hard at all Food Insecurity: Not on file Transportation Needs: No Transportation Needs (11/01/2023) Received from [facility] PRAPARE - Transportation Lack of Transportation (Medical): No Lack of Transportation (Non-Medical): No Physical Activity: Not on file Stress: Not on file Social Connections: Not on file Intimate Partner Violence: Not on file Housing Stability: Low Risk (11/01/2023) Received from [facility] Housing Stability Vital Sign Unable to Pay for Housing in the Last Year: No Number of Times Moved in the Last Year: 1 Homeless in the Last Year: No Objective ENT Physical Exam General Examination: General overview: Normal, age-appropriate, no evidence of distress, voice is mildly hoarse. Head: Normocephalic, atraumatic Eyes: Pupils are equally round and reactive to light and accommodation, extraocular muscles are intact Ears: External ear architecture within normal limits, ear canals are patent, tympanic membranes are intact. Nose: External nose unremarkable, nares patent, septum intact, deviation of the nasal septum to the left with dry mucosa. Evidence of prior cauterization on the right. It is very dry with no evidence of bleeding. Oral cavity: Mucosa moist, no evidence of ulcer, mass, or lesion Throat: Clear, indirect examination reveals mild irritation. Neck/thyroid: Neck supple, full range of motion, no cervical lymphadenopathy, no evidence of thyromegaly Lymph nodes: No cervical lymphadenopathy Skin: Warm and dry, no evidence of suspicious lesions, no rash Heart: No jugular venous distention, point of maximal impulse normal Lungs: Good air movement, no audible wheezing, no shortness of breath Chest: Normal shape and expansion Abdomen: Normal, soft, nontender, nondistended Musculoskeletal: Cervical spine normal, full range of motion Extremities: No clubbing, cyanosis, or edema Peripheral pulses: 2+ radial, 2+ carotid Neurologic: Alert and oriented, cranial nerves 2-12 are grossly intact Psych: Alert and oriented, normal affect, no evidence of distress Assessment/Plan Diagnoses and all orders for this visit: Nasal septal deviation Comments: no significant change, will observe for now Chronic anticoagulation Comments: patient to continue taking Eliquis, follow up with family physician and subspecialist Recurrent epistaxis Comments: the right septum continues to heal with dryness and scab formation. He is encouraged to increase his usage of saline gel in his nose to Improve healing Recheck in 3 weeks documented in this encounter [facility] 05-02-2024 History of Present illness Narrative Subjective Patient ID: Shahid Sanchez is a 83 y.o. male who presents for Epistaxis (Nose Bleed) (3 week kenya nosebleeds) HPI 82-year-old white male presents today for recheck of frequent epistaxis. Patient describes no further episodes of nasal bleeding after blowing his nose. Symptoms have been isolated to the right side. Currently takes blood thinner for cardiac reasons. Recent aortic valve replacement Review of Systems Patient does describe recurrent difficulties with nasal bleeding on the right side as well as nasal dryness. Denies any nasal pain or sinus pressure. Does describe hoarseness of his throat with irritation which is more severe when lying down. Does describe significant difficulties with fatigue and shortness of breath. This has been going on since getting a cardiac pacemaker. The rest of his review of systems is negative. Allergies as of 05/02/2024 (No Known Allergies) Past Medical History: Diagnosis Date A-fib ([facility]) 08/09/2023 Abnormal ECG 01/21/2017 Adenocarcinoma of colon ([facility]) 02/23/2023 Benign neoplasm of descending colon 02/23/2023 Benign neoplasm of descending colon 08/09/2023 Benign neoplasm of transverse colon 02/23/2023 BMI 29.0-29.9,adult 08/09/2023 BMI 32.0-32.9,adult 06/23/2023 Bradycardia 02/23/2023 Chronic systolic heart failure ([facility]) 02/23/2023 Diabetes mellitus ([facility]) 02/23/2023 Former smoker 01/25/2024 Heart block, AV 08/09/2023 Heart disease, hypertensive ([facility]) 08/09/2023 Heart failure ([facility]) 02/23/2023 History of transcatheter aortic valve replacement (TAVR) 10/13/2023 HTN (hypertension) ([facility]) 02/23/2023 Hypercholesteremia ([facility]) 02/23/2023 Hypothyroidism ([facility]) 02/23/2023 Immunosuppression ([facility]) 02/23/2023 Kidney disease 02/23/2023 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/23/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 Nonrheumatic aortic valve stenosis 10/13/2023 Other specified anemias 11/04/2023 Persistent atrial fibrillation (HCC) ([facility]) 02/23/2023 Personal history of colon cancer, stage II 02/23/2023 Positive colorectal cancer screening using Cologuard test 02/23/2023 Pulmonary hypertension ([facility]) 06/23/2023 Rheumatoid arthritis ([facility]) 02/23/2023 Shortness of breath 02/23/2023 Single vessel coronary artery disease ([facility]) 10/13/2023 Sleep apnea 02/23/2023 Vitamin D deficiency 02/23/2023 Current Outpatient Medications: bumetanide (Bumex) 1 MG tablet, Take 1 mg by mouth Daily, Disp: , Rfl: Bydureon BCise 2 MG/0.85ML pen, inject 2 milligrams subcutaneously every week in ABDOMEN,THIGH,OR... (REFER TO PRESCRIPTION NOTES)., Disp: , Rfl: colesevelam (Welchol) 625 MG tablet, Take 1,250 mg by mouth 2 (two) times a day as needed, Disp: , Rfl: dutasteride (Avodart) 0.5 MG capsule, 1 capsule 1 (one) time each day at the same time, Disp: , Rfl: Eliquis 5 MG tablet, Take 5 mg by mouth in the morning and 5 mg before bedtime., Disp: , Rfl: Entresto 24-26 MG tablet, Take 1 tablet by mouth in the morning and 1 tablet in the evening., Disp: , Rfl: famotidine (Pepcid) 40 MG tablet, TAKE 1 TABLET BY MOUTH AT BEDTIME EVERY DAY, Disp: , Rfl: Folic Acid 20 MG capsule, Daily, Disp: , Rfl: furosemide (Lasix) 40 MG tablet, Take 40 mg by mouth in the morning., Disp: , Rfl: inFLIXimab (Remicade) 100 MG injection, Infuse 600 mg into a venous catheter in the morning., Disp: , Rfl: Kerendia 20 MG tablet, Take 20 mg by mouth Daily, Disp: , Rfl: levothyroxine (Synthroid, Levoxyl) 50 MCG tablet, Take 50 mcg by mouth in the morning., Disp: , Rfl: metFORMIN (Glucophage) 850 MG tablet, Take 50 mg by mouth in the morning., Disp: , Rfl: methotrexate 2.5 MG tablet, take 6 tablets by mouth every week, Disp: , Rfl: metoprolol succinate XL (Toprol-XL) 25 MG 24 hr tablet, Take 25 mg by mouth in the morning., Disp: , Rfl: montelukast (Singulair) 10 MG tablet, Take 10 mg by mouth Daily, Disp: , Rfl: Ozempic, 2 MG/DOSE, 8 MG/3ML solution pen-injector, INJECT 2 (TWO) mg SUBCUTANEOUSLY (UNDER THE SKIN) EVERY WEEK, Disp: , Rfl: pantoprazole (ProtoNix) 40 MG EC tablet, TAKE 1 TABLET BY MOUTH IN THE MORNING 30 MINUTES BEFORE MEALS, Disp: , Rfl: pioglitazone (Actos) 15 MG tablet, 1 (one) time each day at the same time, Disp: , Rfl: rosuvastatin (Crestor) 10 MG tablet, Take 10 mg by mouth in the morning., Disp: , Rfl: tamsulosin (Flomax) 0.4 MG 24 hr capsule, Take 0.4 mg by mouth at bedtime, Disp: , Rfl: Verquvo 10 MG tablet, Take 1 tablet by mouth Daily, Disp: , Rfl: Past Surgical History: Procedure Laterality Date CARDIAC PACEMAKER PLACEMENT 04/29/2023 Social History Socioeconomic History Marital status: Spouse name: Not on file Number of children: Not on file Years of education: Not on file Highest education level: Not on file Occupational History Not on file Tobacco Use Smoking status: Former Current packs/day: 0.00 Types: Cigarettes Quit date: 1979 Years since quittin.1 Smokeless tobacco: Never Substance and Sexual Activity Alcohol use: Not Currently Drug use: Defer Sexual activity: Not on file Other Topics Concern Not on file Social History Narrative Not on file Social Drivers of Health Financial Resource Strain: Low Risk (11/01/2023) Received from [facility] Overall Financial Resource Strain (CARDIA) Difficulty of Paying Living Expenses: Not hard at all Food Insecurity: Not on file Transportation Needs: No Transportation Needs (11/01/2023) Received from [facility] PRAPARE - Transportation Lack of Transportation (Medical): No Lack of Transportation (Non-Medical): No Physical Activity: Not on file Stress: Not on file Social Connections: Not on file Intimate Partner Violence: Not on file Housing Stability: Low Risk (11/01/2023) Received from [facility] Housing Stability Vital Sign Unable to Pay for Housing in the Last Year: No Number of Times Moved in the Last Year: 1 Homeless in the Last Year: No Objective ENT Physical Exam General Examination: General overview: Normal, age-appropriate, no evidence of distress, voice is mildly hoarse. Head: Normocephalic, atraumatic Eyes: Pupils are equally round and reactive to light and accommodation, extraocular muscles are intact Ears: External ear architecture within normal limits, ear canals are patent, tympanic membranes are intact. Nose: External nose unremarkable, nares patent, septum intact, deviation of the nasal septum to the left with dry mucosa. Evidence of prior cauterization on the right. It is very dry with no evidence of bleeding. Antibiotic ointment is applied. Oral cavity: Mucosa moist, no evidence of ulcer, mass, or lesion Throat: Clear, indirect examination reveals mild irritation. Neck/thyroid: Neck supple, full range of motion, no cervical lymphadenopathy, no evidence of thyromegaly Lymph nodes: No cervical lymphadenopathy Skin: Warm and dry, no evidence of suspicious lesions, no rash Heart: No jugular venous distention, point of maximal impulse normal Lungs: Good air movement, no audible wheezing, no shortness of breath Chest: Normal shape and expansion Abdomen: Normal, soft, nontender, nondistended Musculoskeletal: Cervical spine normal, full range of motion Extremities: No clubbing, cyanosis, or edema Peripheral pulses: 2+ radial, 2+ carotid Neurologic: Alert and oriented, cranial nerves 2-12 are grossly intact Psych: Alert and oriented, normal affect, no evidence of distress Assessment/Plan Diagnoses and all orders for this visit: Nasal septal deviation Comments: Currently stable, observe for any worsening symptoms Chronic anticoagulation Comments: Continue Eliquis, follow up with family physician and subspecialist. Recurrent epistaxis Comments: Patient encouraged to maintain saline gel in his nose to facilitate further healing of the area of cauterization. Recheck in 3 weeks documented in this encounter [facility] 04-11-2024 History of Present illness Narrative Subjective Patient ID: Shahid Sanchez is a 83 y.o. male who presents for Epistaxis (Nose Bleed) (Nosebleeds / last seen in July) HPI 82-year-old white male presents today for evaluation of frequent epistaxis. Patient describes repeated episodes of nasal bleeding after blowing his nose. Symptoms have been isolated to the right side. Currently takes blood thinner for cardiac reasons. Recent aortic valve replacement Review of Systems Patient does describe recurrent difficulties with nasal bleeding on the right side as well as nasal dryness. Denies any nasal pain or sinus pressure. Does describe hoarseness of his throat with irritation which is more severe when lying down. Does describe significant difficulties with fatigue and shortness of breath. This has been going on since getting a cardiac pacemaker. The rest of his review of systems is negative. Allergies as of 04/11/2024 (No Known Allergies) Past Medical History: Diagnosis Date A-fib (CMS/HCC) 08/09/2023 Abnormal ECG 01/21/2017 Adenocarcinoma of colon (CMS/HCC) 02/23/2023 Benign neoplasm of descending colon 02/23/2023 Benign neoplasm of descending colon 08/09/2023 Benign neoplasm of transverse colon 02/23/2023 BMI 29.0-29.9,adult 08/09/2023 BMI 32.0-32.9,adult 06/23/2023 Bradycardia 02/23/2023 Chronic systolic heart failure ([facility]) 02/23/2023 Diabetes mellitus ([facility]) 02/23/2023 Former smoker 01/25/2024 Heart block, AV 08/09/2023 Heart disease, hypertensive ([facility]) 08/09/2023 Heart failure ([facility]) 02/23/2023 History of transcatheter aortic valve replacement (TAVR) 10/13/2023 HTN (hypertension) ([facility]) 02/23/2023 Hypercholesteremia ([facility]) 02/23/2023 Hypothyroidism ([facility]) 02/23/2023 Immunosuppression ([facility]) 02/23/2023 Kidney disease 02/23/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/23/2023 Nonrheumatic aortic valve stenosis 10/13/2023 Other specified anemias 11/04/2023 Persistent atrial fibrillation (HCC) ([facility]) 02/23/2023 Personal history of colon cancer, stage II 02/23/2023 Positive colorectal cancer screening using Cologuard test 02/23/2023 Pulmonary hypertension ([facility]) 06/23/2023 Rheumatoid arthritis ([facility]) 02/23/2023 Shortness of breath 02/23/2023 Single vessel coronary artery disease ([facility]) 10/13/2023 Sleep apnea 02/23/2023 Vitamin D deficiency 02/23/2023 Current Outpatient Medications: bumetanide (Bumex) 1 MG tablet, Take 1 mg by mouth Daily, Disp: , Rfl: Bydureon BCise 2 MG/0.85ML pen, inject 2 milligrams subcutaneously every week in ABDOMEN,THIGH,OR... (REFER TO PRESCRIPTION NOTES)., Disp: , Rfl: colesevelam (Welchol) 625 MG tablet, Take 1,250 mg by mouth 2 (two) times a day as needed, Disp: , Rfl: dutasteride (Avodart) 0.5 MG capsule, 1 capsule 1 (one) time each day at the same time, Disp: , Rfl: Eliquis 5 MG tablet, Take 5 mg by mouth in the morning and 5 mg before bedtime., Disp: , Rfl: Entresto 24-26 MG tablet, Take 1 tablet by mouth in the morning and 1 tablet in the evening., Disp: , Rfl: famotidine (Pepcid) 40 MG tablet, TAKE 1 TABLET BY MOUTH AT BEDTIME EVERY DAY, Disp: , Rfl: Folic Acid 20 MG capsule, Daily, Disp: , Rfl: furosemide (Lasix) 40 MG tablet, Take 40 mg by mouth in the morning., Disp: , Rfl: inFLIXimab (Remicade) 100 MG injection, Infuse 600 mg into a venous catheter in the morning., Disp: , Rfl: Kerendia 20 MG tablet, Take 20 mg by mouth Daily, Disp: , Rfl: levothyroxine (Synthroid, Levoxyl) 50 MCG tablet, Take 50 mcg by mouth in the morning., Disp: , Rfl: metFORMIN (Glucophage) 850 MG tablet, Take 50 mg by mouth in the morning., Disp: , Rfl: methotrexate 2.5 MG tablet, take 6 tablets by mouth every week, Disp: , Rfl: metoprolol succinate XL (Toprol-XL) 25 MG 24 hr tablet, Take 25 mg by mouth in the morning., Disp: , Rfl: montelukast (Singulair) 10 MG tablet, Take 10 mg by mouth Daily, Disp: , Rfl: Ozempic, 2 MG/DOSE, 8 MG/3ML solution pen-injector, INJECT 2 (TWO) mg SUBCUTANEOUSLY (UNDER THE SKIN) EVERY WEEK, Disp: , Rfl: pantoprazole (ProtoNix) 40 MG EC tablet, TAKE 1 TABLET BY MOUTH IN THE MORNING 30 MINUTES BEFORE MEALS, Disp: , Rfl: pioglitazone (Actos) 15 MG tablet, 1 (one) time each day at the same time, Disp: , Rfl: rosuvastatin (Crestor) 10 MG tablet, Take 10 mg by mouth in the morning., Disp: , Rfl: tamsulosin (Flomax) 0.4 MG 24 hr capsule, Take 0.4 mg by mouth at bedtime, Disp: , Rfl: Verquvo 10 MG tablet, Take 1 tablet by mouth Daily, Disp: , Rfl: Past Surgical History: Procedure Laterality Date CARDIAC PACEMAKER PLACEMENT 04/29/2023 Social History Socioeconomic History Marital status: Spouse name: Not on file Number of children: Not on file Years of education: Not on file Highest education level: Not on file Occupational History Not on file Tobacco Use Smoking status: Former Current packs/day: 0.00 Types: Cigarettes Quit date: 1980 Years since quittin.0 Smokeless tobacco: Never Substance and Sexual Activity Alcohol use: Not Currently Drug use: Defer Sexual activity: Not on file Other Topics Concern Not on file Social History Narrative Not on file Social Drivers of Health Financial Resource Strain: Low Risk (11/01/2023) Received from [facility] Overall Financial Resource Strain (CARDIA) Difficulty of Paying Living Expenses: Not hard at all Food Insecurity: Not on file Transportation Needs: No Transportation Needs (11/01/2023) Received from [facility] PRAPARE - Transportation Lack of Transportation (Medical): No Lack of Transportation (Non-Medical): No Physical Activity: Not on file Stress: Not on file Social Connections: Not on file Intimate Partner Violence: Not on file Housing Stability: Low Risk (11/01/2023) Received from [facility] Housing Stability Vital Sign Unable to Pay for Housing in the Last Year: No Number of Times Moved in the Last Year: 1 Homeless in the Last Year: No Objective ENT Physical Exam General Examination: General overview: Normal, age-appropriate, no evidence of distress, voice is mildly hoarse. Head: Normocephalic, atraumatic Eyes: Pupils are equally round and reactive to light and accommodation, extraocular muscles are intact Ears: External ear architecture within normal limits, ear canals are patent, tympanic membranes are intact. Nose: External nose unremarkable, nares patent, septum intact, deviation of the nasal septum to the left with dry mucosa. Evidence of recent bleeding on the right septum. No active hemorrhage. Crusting of the anterior septum is noted on the right. Nasal cautery: Preop diagnosis: Epistaxis Postop diagnosis: Same Procedure: Control of epistaxis Location: Kiesselbach's plexus Procedure: Consent was obtained. The anterior nasal cavity was topically anesthetized. Location of bleeding was Kiesselbach's plexus. The area of hemorrhage is treated with a combination of silver nitrate and direct pressure. The amount of blood was in significant. Postprocedure: The area of cauterization is treated with topical ointment. Patient is fully instructed on post treatment care and follow-up in this office. Oral cavity: Mucosa moist, no evidence of ulcer, mass, or lesion Throat: Clear, indirect examination reveals mild irritation. Neck/thyroid: Neck supple, full range of motion, no cervical lymphadenopathy, no evidence of thyromegaly Lymph nodes: No cervical lymphadenopathy Skin: Warm and dry, no evidence of suspicious lesions, no rash Heart: No jugular venous distention, point of maximal impulse normal Lungs: Good air movement, no audible wheezing, no shortness of breath Chest: Normal shape and expansion Abdomen: Normal, soft, nontender, nondistended Musculoskeletal: Cervical spine normal, full range of motion Extremities: No clubbing, cyanosis, or edema Peripheral pulses: 2+ radial, 2+ carotid Neurologic: Alert and oriented, cranial nerves 2-12 are grossly intact Psych: Alert and oriented, normal affect, no evidence of distress Assessment/Plan Diagnoses and all orders for this visit: Recurrent epistaxis Comments: Patient will start using saline gel in his nose on a frequent basis. Chronic anticoagulation Comments: Patient will continue current blood thinner, we will see him back if his symptoms worsen. Follow up with family physician and subspecialist Nasal septal deviation Comments: Will observe for any worsening symptoms. Do not recommend surgery at this time Chronic rhinitis Comments: Saline spray/gel Recheck in 3 weeks documented in this encounter [facility] 01-25-2024 History of Present illness Narrative Subjective Shahid Sanchez is a 83 y.o. male Chief Complaint Follow-up HPI Patient is here for follow-up continue management for chronic systolic heart failure, Aortic stenosis, LV systolic function status post recent TAVR. Since last time I saw him he reports mild dizziness. He report his shortness of breath and fatigue has improved. His TAVR went without any complication. Today's heart rate are a little bit on the low range of 56. His repeat echocardiogram showed improvement of his LV systolic function up to 50%. Assessment 1. 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 Currently decompensated with evidence of volume overload. Ejection fraction has improved from 35 up to 50 following his TAVR 2. Severe aortic stenosis. Status post recent TAVR without any complication 3. Single-vessel coronary artery disease with occlusion of the RCA 4. Chronic atrial fibrillation with slow suggestive of AV node dysfunction. Status post recent permanent pacemaker implantation 5. Long-term anticoagulation due to chronic atrial fibrillation 6. Hypertension 7. Diabetes mellitus 8. Rheumatoid arthritis 9. History of colon cancer status postresection with no recurrence 10. Pulmonary hypertension 11. Chronic kidney disease stage III Plan 1. I advised the patient to cut down his metoprolol to Toprol XL 25 mg once daily 2. I reviewed his recent hospitalization record and echocardiogram 3. I reviewed his previous device check 4 I reviewed with him endocarditis prophylaxis 5. I will see him back in 6 months and advised him to call me if his dizziness does not improve and we will consider cutting down on his diuretics Review of Systems Constitutional: Positive for malaise/fatigue. Neurological: Positive for dizziness. All other systems reviewed and are negative. Vitals: 01/25/24 1433 BP: (!) 132/48 BP Location: Right arm Patient Position: Sitting Pulse: 56 Weight: 101 kg (222 lb) Height: 1.829 m (6') Objective Physical Exam Constitutional: Appearance: Normal appearance. HENT: Nose: Nose normal. Neck: Vascular: No carotid bruit. Cardiovascular: Rate and Rhythm: Normal rate. Rhythm irregularly irregular. Pulses: Normal pulses. Heart sounds: Murmur heard. Systolic murmur is present with a grade of 2/6. Pulmonary: Effort: Pulmonary effort is normal. Abdominal: General: Bowel sounds are normal. Palpations: Abdomen is soft. Musculoskeletal: General: Normal range of motion. Cervical back: Normal range of motion. Right lower leg: No edema. Left lower leg: No edema. Skin: General: Skin is warm and dry. Neurological: General: No focal deficit present. Mental Status: He is alert. Psychiatric: Mood and Affect: Mood normal. Behavior: Behavior normal. Thought Content: Thought content normal. Judgment: Judgment normal. Allergies Patient has no known allergies. Current Medications Current Outpatient Medications: bumetanide (Bumex) 1 mg tablet, Take 1 tablet (1 mg) by mouth once daily., Disp: 90 tablet, Rfl: 2 Bydureon BCise 2 mg/0.85 mL auto-injector, Inject 2 mg under the skin 1 (one) time per week in the web development director.., Disp: , Rfl: cholecalciferol (Vitamin D-3) 5,000 Units tablet, Take 1 tablet (5,000 Units) by mouth early in the morning.., Disp: 90 tablet, Rfl: 3 colesevelam (Welchol) 625 mg tablet, Take 2 tablets (1,250 mg) by mouth 2 times a day as needed (diarrhea). Take with meal(s) and a liquid., Disp: 30 tablet, Rfl: 0 dutasteride (Avodart) 0.5 mg capsule, Take 1 capsule (0.5 mg) by mouth once daily., Disp: , Rfl: Eliquis 5 mg tablet, Take 1 tablet (5 mg) by mouth 2 times a day., Disp: 90 tablet, Rfl: 2 folic acid (Folvite) 800 mcg tablet, Take 1 tablet (800 mcg) by mouth once daily., Disp: 90 tablet, Rfl: 2 Kerendia 20 mg tablet, Take 1 tablet (20 mg) by mouth early in the morning.., Disp: , Rfl: levothyroxine (Synthroid, Levoxyl) 50 mcg tablet, Take 1 tablet (50 mcg) by mouth once daily. 1 tab and Wednesday take 2 tabs, Disp: 30 tablet, Rfl: 0 metFORMIN (Glucophage) 850 mg tablet, Take 1 tablet (850 mg) by mouth once daily at bedtime. take with evening meal, Disp: 90 tablet, Rfl: 2 methotrexate (Trexall) 2.5 mg tablet, Take 6 tablets (15 mg total) by mouth 1 (one) time per week., Disp: , Rfl: montelukast (Singulair) 10 mg tablet, Take 1 tablet (10 mg) by mouth 4 times a week. MWu, Disp: 30 tablet, Rfl: 1 oxyCODONE-acetaminophen (Percocet) 5-325 mg tablet, Take 1 tablet by mouth every 4 hours if needed for severe pain (7 - 10)., Disp: , Rfl: pantoprazole (ProtoNix) 40 mg EC tablet, Take 1 tablet (40 mg) by mouth 2 times a day. Do not crush, chew, or split., Disp: 30 tablet, Rfl: 1 rosuvastatin (Crestor) 10 mg tablet, Take 1 tablet (10 mg) by mouth 4 times a week. MWFSu (Patient taking differently: Take 0.5 tablets (5 mg) by mouth 4 times a week. MWu), Disp: 16 tablet, Rfl: 1 vericiguat (Verquvo) 10 mg tablet, Take 10 mg by mouth once daily., Disp: 90 tablet, Rfl: 2 metoprolol succinate XL (Toprol-XL) 25 mg 24 hr tablet, Take 1 tablet (25 mg) by mouth once daily. Do not crush or chew., Disp: 90 tablet, Rfl: 3 Assessment/Plan 1. Nonrheumatic aortic valve stenosis Follow Up In Cardiology 2. Single vessel coronary artery disease metoprolol succinate XL (Toprol-XL) 25 mg 24 hr tablet 3. Chronic systolic heart failure metoprolol succinate XL (Toprol-XL) 25 mg 24 hr tablet Follow Up In Cardiology 4. Persistent atrial fibrillation (Multi) 5. Edema, unspecified type Follow Up In Cardiology 6. Severe aortic stenosis 7. History of transcatheter aortic valve replacement (TAVR) 8. Pulmonary hypertension (Multi) 9. Primary hypertension metoprolol succinate XL (Toprol-XL) 25 mg 24 hr tablet 10. Hypercholesteremia 11. Abnormal ECG 12. 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 Obstructive sleep apnea syndrome 15. BMI 30.0-30.9,adult 16. Former smoker Scribe Attestation By signing my name below, I, Taylor Baca LPN attest that this documentation has been prepared under the direction and in the presence of Joby Pinedo MD. Provider Attestation - Scribe documentation All medical record entries made by the Scribe were at my direction and personally dictated by me. I have reviewed the chart and agree that the record accurately reflects my personal performance of the history, physical exam, discussion and plan. documented in this encounter [facility] Work Phone: 01-25-2024 Instructions Nancy Phillips LPN - 01/25/2024 2:10 PM EDT Please bring all medicines, vitamins, and herbal supplements with you when you come to the office. Prescriptions will not be filled unless you are compliant with your follow up appointments or have a follow up appointment scheduled as per instruction of your physician. Refills should be requested at the time of your visit. Fall Prevention Education Given BMI was above normal measurement. Current weight: 101 kg (222 lb) Weight change since last visit (-) denotes wt loss 22.81 lbs Weight loss needed to achieve BMI 25: 38.1 Lbs Weight loss needed to achieve BMI 30: 1.3 Lbs Provided instructions on dietary changes. The following attachments cannot be sent through Care Everywhere.Heart Healthy Diet (Malagasy)documented in this encounter [facility] Work Phone: 11-12-2023 Miscellaneous Notes The patient's goals for the shift include The clinical goals for the shift include pt will remain fee from injury this shift Problem: Fall/Injury Goal: Not fall by end of shift Outcome: Progressing Goal: Be free from injury by end of the shift Outcome: Progressing Goal: Verbalize understanding of personal risk factors for fall in the hospital Outcome: Progressing Goal: Verbalize understanding of risk factor reduction measures to prevent injury from fall in the home Outcome: Progressing Goal: Use assistive devices by end of the shift Outcome: Progressing Goal: Pace activities to prevent fatigue by end of the shift Outcome: Progressing Problem: Pain - Adult Goal: Verbalizes/displays adequate comfort level or baseline comfort level Outcome: Progressing Problem: Safety - Adult Goal: Free from fall injury Outcome: Progressing Patient: Shahid Sanchez NPO guidelines met: Yes Physical Exam Airway Mallampati: III Cardiovascular Rhythm: regular Dental Pulmonary Plan ASA 3 Mild TAVR (Transcatheter AV Replacement), TVP for TAVR Operative Note Date: 11/01/2023 - 11/12/2023 OR Location: [facility] Cardiac Import Export Manager Name: Shahid Sanchez, : 1940, Age: 83 y.o., , Sex: male Diagnosis Pre-op Diagnosis * Aortic stenosis [I35.0] Post-op Diagnosis * Aortic stenosis [I35.0] Procedures TVP for TAVR TAVR-OR TAVR (Transcatheter AV Replacement) 35058 - [place] REPLACE AORTIC VALVE PERQ FEMORAL ARTRY APPROACH 1) Transcatheter Aortic Valve Replacement (34 mm Medtronic Evolut Pro Plus SN: [id number]) via right femoral artery 2) Percutaneous placement of balloon tipped pacing catheter (Right internal jugular vein) 3) Left heart catheterization including left ventricular end diastolic pressure 4) Percutaneous balloon aortic valvuloplasty (21 mm True Balloon) 5) Percutaneous pre-close of the right common femoral artery Surgeons Panel 1: * Milton Camejo - Primary Panel 2: * Medardo Rowe - Primary Resident/Fellow/Other Systems Project Manager: Surgeons and Role: * No surgeons found with a matching role * Procedure Summary Anesthesia: Anesthesia type not filed in the log. ASA: ASA status not filed in the log. Anesthesia Staff: No anesthesia staff entered. Estimated Blood Loss: minimal mL Intra-op Medications: * Intraprocedure medication information is unavailable because the case start and end events have not been set * Anesthesia Record Intraprocedure I/O Totals None Specimen: No specimens collected Staff: Scrub Person: Police Lieutenant Patrol: Ashish Police Lieutenant Patrol: Kayode Drains and/or Catheters: * None in log * Tourniquet Times: N/A Implants: Implants Type Name Action Serial No. Heart Valve Repair DELIVERY SYSTEM, EVOLUT FX, 34MM - [id number] Used, Not Implanted Heart Valve Repair VALVE, AORTIC, 34MM, EVOLUT FX TRANSCATHETER - [id number] - [id number] Implanted [id number] Findings: Severe calcification of the aortic valve leaflets. Tri-leaflet valve. Implant height at 6 mm on the non-coronary annulus and 10 mm on the left coronary annulus. Post-deployment transthoracic echocardiography showed that there was trivial paravalvular leak, and the mean gradient across the valve was 4 mmHg. There were no conduction abnormalities throughout the case. Indications: Shahid Sanchez is an 83 y.o. male who is having surgery for Aortic stenosis [I35.0]. The patient was seen in the preoperative area. The risks, benefits, complications, treatment options, non-operative alternatives, expected recovery and outcomes were discussed with the patient. The possibilities of reaction to medication, pulmonary aspiration, injury to surrounding structures, bleeding, recurrent infection, the need for additional procedures, failure to diagnose a condition, and creating a complication requiring transfusion or operation were discussed with the patient. The patient concurred with the proposed plan, giving informed consent. The site of surgery was properly noted/marked if necessary per policy. The patient has been actively warmed in preoperative area. Preoperative antibiotics have been ordered and given within 1 hours of incision. Venous thrombosis prophylaxis have been ordered including chemical prophylaxis Procedure Details: After informed consent was obtained, and all questions asked and answered to the patient's satisfaction, they were brought back to the cardiology catheterization laboratory and placed on the Import Export Manager table. A timeout was performed with the correct patient, correct procedure, the correct laterality, timing and dosage of antibiotics, the availability of blood products, and all correct equipment was verified as being present prior to beginning the case. Ultrasound guidance was utilized to place a 7 Russian locking sheath in the right internal jugular vein. This was done using a modified Seldinger technique. A balloon tipped pacing wire was then floated through to the right ventricle and locked into place. Next an 6 Fr sheath was placed in the left common femoral artery using a modified Seldinger technique. A 6 Fr pigtail was placed over a wire into the non-coronary sinus. Next attention was placed to the right femoral artery, and using fluoroscopic guidance and a micropuncture needle, the right common femoral artery was accessed using modified Seldinger technique. This was exchanged for an 8 Russian sheath, and then 2 Pro-glide Perclose sutures were placed. Next the right common femoral artery was dilated to a 18 Russian size, and a 18 Russian sheath was placed in the right common femoral artery under direct fluoroscopic guidance using a Supercore wire. The patient was then systemically heparinized. An 180 cm J-wire was then used to place an JR-4 catheter in the ascending aorta and a floppy tip straight wire was utilized to cross the aortic valve and JR-4 catheter was moved into the left ventricle. An 180 cm exchange length J-wire was then utilized over the through the JR-4 catheter, this was exchanged for a pigtail catheter, hemodynamics were measured. A safari wire was placed through the pigtail catheter into the left ventricle. The evolute valve was then checked to ensure that it was loaded correctly on the sheath using fluoroscopy. The Balloon was tracked over the safari wire, into the LVOT. Rapid pacing was initiated at 180 BPM, after decrement in ejection and blood pressure, the balloon was inflated and deflated rapidly. Rapid pacing was then stopped, and the balloon was removed from the body. Next the 18 Russian sheath was removed from the right common femoral artery, over the safari wire, and the delivery system and valve replaced bareback into the right common femoral artery. The valve was then advanced on the delivery system through to the ascending aorta, and we verified our correct projection. The evolute valve was then advanced across the nisqually aortic valve, and slowly this was deployed as the pacemaker was set at 150 bpm. After the valve was deployed 80%, we stopped evaluated our depth; we were happy. We noted that there was one dot to the left of midline, and two dots to the right of midline in our cusp-overlap view. We then continued with slow deployment of the paddles and release of the evolute valve from the delivery system. The nose cone was then retracted into the valve centrally, and the delivery system was removed to the descending thoracic aorta. The pigtail was then removed from behind the cage of the evolute valve, and the delivery system was recaptured. The pigtail was placed through the valve into the LV and hemodynamics were again measured. A supracore wire was exchanged from the Safari wire and the delivery system was then removed from the right common femoral artery over the supracore wire, and the the 2 previously placed proglide Perclose sutures were cinched. The Perclose devices were locked. Next attention was placed to the left femoral artery, and this was closed with a Perclose device. Patient then was taken to the floor in stable condition. Complications: None; patient tolerated the procedure well. Disposition: PACU - hemodynamically stable. Condition: stable Medardo Rowe MD The patient's goals for the shift include The clinical goals for the shift include pt will remain safe and comfortable while ambulating throughout the shift Over the shift, the patient did not make progress toward the following goals. Barriers to progression include CERVANTES. Recommendations to address these barriers include monitored ambulation. The patient's goals for the shift include pain will be managed. The clinical goals for the shift include patient will ambulate throughout shift Over the shift, the patient did make progress toward the following goals. Problem: Fall/Injury Goal: Not fall by end of shift Outcome: Progressing Goal: Be free from injury by end of the shift Outcome: Progressing Goal: Verbalize understanding of personal risk factors for fall in the hospital Outcome: Progressing Goal: Verbalize understanding of risk factor reduction measures to prevent injury from fall in the home Outcome: Progressing Goal: Use assistive devices by end of the shift Outcome: Progressing Goal: Pace activities to prevent fatigue by end of the shift Outcome: Progressing The clinical goals for the shift include patient will be HDS throughout my shift. The patient's goals for the shift include The clinical goals for the shift include patinet will ambulate throughout the shift Over the shift, the patient did not make progress toward the following goals. Barriers to progression include CERVANTES, weakness. Recommendations to address these barriers include guided ambulation. The patient's goals for the shift include Pt will ambulate in the [place] at least once The clinical goals for the shift include HDS throughout the shift Problem: Fall/Injury Goal: Not fall by end of shift Outcome: Progressing Goal: Be free from injury by end of the shift Outcome: Progressing Goal: Verbalize understanding of personal risk factors for fall in the hospital Outcome: Progressing Goal: Verbalize understanding of risk factor reduction measures to prevent injury from fall in the home Outcome: Progressing Goal: Use assistive devices by end of the shift Outcome: Progressing Goal: Pace activities to prevent fatigue by end of the shift Outcome: Progressing Problem: Pain - Adult Goal: Verbalizes/displays adequate comfort level or baseline comfort level Outcome: Progressing 83 year old male with PMH of HTN, DM, HLD, A-fib, sick sinus syndrome s/p pacemaker, RA, HFrEF, CAD, GUNNER (not using CPAP), chronic respiratory failure due to recurrent admission from [facility] needing o2 2L, and severe aortic stenosis. Admitted with [facility] and Acute anemia work up. Patient s/p EGD on 11/02, with no signs of GI blood loss and no concerning lesions. GI recs for daily PPI. Structural Heart team involved due to the Echo findings, 65 EF , severe aortic stenosis, mean AV gradient 33, AV Vmax 3.9, HUBER 1.0 Structural team plan for future TAVR procedure. TAVR Workup all completed. - NYHA: IV - Frailty: 3 - EK11/01/2023 AV paced, HR 70, W[place] -, QRS 158 ms - TTE: 09/13/2023 LV 35%, mild MR, mild TR, AV gradients 64/36 mmHg, RVSP elevated consistent with moderate to severe PHTN, LA moderate dilated, mobile densitey of the LA appendage measuring 0.7x0.8 cm consist with thrombus, RA moderately dilated, RA moderately dilated no pericardial effusion - CT TAVR: completed 10/05 - LHC: 09/13 completed Left Main no significant disease. Lesion to ostial area of the LAD 30% eccentric lesion, no stenosis, RCA totally occluded in the proximal portion (chronic) - dental clearance: No need, pt has full dentures - STS 2.8 - KCCQ completed Patient is schedule for TAVR procedure 11/12/2023. Continue to optimized HF symptoms From the Structural Heart team, okay to discharge patient once primary team feels he is stable and HF symptoms are optimized. We appreciate the ability to participate in the patient care. Please page [phone] if further questions and concerns. MARGARITA John The patient's goals for the shift include The clinical goals for the shift include patient will ambulate throughout the shift Over the shift, the patient did not make progress toward the following goals. Barriers to progression include CERVANTES. Recommendations to address these barriers include monitored ambulation. Problem: Fall/Injury Goal: Not fall by end of shift Outcome: Progressing Problem: Pain - Adult Goal: Verbalizes/displays adequate comfort level or baseline comfort level Outcome: Progressing Problem: Safety - Adult Goal: Free from fall injury Outcome: Progressing The patient's goals for the shift include The clinical goals for the shift include Ambulate in the hallway this shift The patient's goals for the shift include to void more after receiving Lasix diuretic, so surgery for valve replacement can proceed The clinical goals for the shift include pt will remain HDS throughout shift Pt received Lasix IV, not voiding a significant amount since receiving, they may need to adjust diuretics, otherwise pt progressing Problem: Fall/Injury Goal: Not fall by end of shift Outcome: Progressing Goal: Be free from injury by end of the shift Outcome: Progressing Goal: Verbalize understanding of personal risk factors for fall in the hospital Outcome: Progressing Goal: Verbalize understanding of risk factor reduction measures to prevent injury from fall in the home Outcome: Progressing Goal: Use assistive devices by end of the shift Outcome: Progressing Goal: Pace activities to prevent fatigue by end of the shift Outcome: Progressing Problem: Pain - Adult Goal: Verbalizes/displays adequate comfort level or baseline comfort level Outcome: Progressing Problem: Discharge Planning Goal: Discharge to home or other facility with appropriate resources Outcome: Progressing Problem: Safety - Adult Goal: Free from fall injury Outcome: Progressing Problem: Chronic Conditions and Co-morbidities Goal: Patient's chronic conditions and co-morbidity symptoms are monitored and maintained or improved Outcome: Progressing Problem: Diabetes Goal: Achieve decreasing blood glucose levels by end of shift Outcome: Progressing Goal: Increase stability of blood glucose readings by end of shift Outcome: Progressing Goal: Decrease in ketones present in urine by end of shift Outcome: Progressing Goal: Maintain electrolyte levels within acceptable range throughout shift Outcome: Progressing Goal: Maintain glucose levels >70mg/dl to <250mg/dl throughout shift Outcome: Progressing Goal: No changes in neurological exam by end of shift Outcome: Progressing Goal: Learn about and adhere to nutrition recommendations by end of shift Outcome: Progressing Goal: Vital signs within normal range for age by end of shift Outcome: Progressing Goal: Increase self care and/or family involovement by end of shift Outcome: Progressing Goal: Receive DSME education by end of shift Outcome: Progressing Problem: Fall/Injury Goal: Not fall by end of shift Outcome: Progressing Problem: Pain - Adult Goal: Verbalizes/displays adequate comfort level or baseline comfort level Outcome: Progressing The patient's goals for the shift include The clinical goals for the shift include patient will tolerate being titrated to 2L The patient's goals for the shift include The clinical goals for the shift include HDS Over the shift, the patient did make progress toward the following goals. Shahid Sanchez is a 83 y.o. male with a medical history of non ischemic HFrEF, HTN, DM, HLD, A-fib, sick sinus syndrome s/p pacemaker, RA, hx of colon CA s/p resection, HFrEF, severe aortic stenosis, CAD, GUNNER (not using CPAP), chronic respiratory failure from CHF on 2.5LO2, was directly admitted by structural heart team/ Dr. Brenner for HFrEF exacerbation, anemia and possible expedited TAVR. Eliquis held in light of bleeding history and anemia. Patient diuresed with IV therapies. GI consulted, Underwent EGD 11/02 revealing normal esophagus, stomach, and duodenum. No overt signs of GI blood loss. Anemia suspected to be multifactorial from anemia of chronic disease and bone marrow suppression in setting of acute illness as well as mulitple phlebotomies. No urgent indication for repeat colonoscopy. ENT consulted for hx of epistaxis and nasal congestion, recommending regular sprays and humidifed oxygen to avoid discomfort. Trial resumption of anticoagulation with heparin gtt with no bleeding issues ### Structural heart consulted. Plan for inpatient TAVR per structural once diuresed closer to euvolemia. ### He was diuresed with lasix gtt andIV Diuril with improvement in fluid status, but complicated by worsening MAYLIN #### Discharge weight: ### kg After all labs and VS were reviewed the decision was made that the patient was medically stable for discharge. The patient was discharged in satisfactory condition. More than 60 minutes were spent in coordinating patient discharge. KCCQ Questionnaire 1 Heart failure affects different people in different ways. Some feel shortness of breath while others feel fatigue. Please indicate how much you are limited by heart failure (shortness of breath or fatigue) in your ability to do the following activities over the past 2 weeks. 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 Slightly B.) Walking 1 block on level ground 1. Extremely C.) Hurrying or Jogging 1. Extremely 2. Over the past 2 weeks, how many times did you have swelling in your feet, ankles or legs when you woke up in the morning? 1. Every morning 3. Over the past 2 weeks, on average, how many times has fatigue limited your ability to do what you wanted? 3. At least once a day 4. Over the past 2 weeks, on average, how many times has shortness of breath limited your ability to do what you wanted? 3. At least once a day 5. Over the past 2 weeks, on average, how many times have you been forced to sleep sitting up in a chair or with at least 3 pillows to prop you up because of shortness of breath? 1-2 times per week 6. Over the past 2 weeks, how much has your heart failure limited your enjoyment of life? It has slightly limited my enjoyment of life 7. If you had to spend the rest of your life with your heart failure the way it is right now, how would you feel about this? 1. Not at all 8. How much does your heart failure affect your lifestyle? Please indicate how your heart failure may have limited yourparticipation in the following activities over the past 2 weeks A.) Hobbies, recreational activities 3. Moderately limited B.) Working or doing pacs specialist 3. Moderately limited C.) Visiting family or friends out of your home 3. Moderately limited Walking Test 5 meter: 13 Seconds The patient's goals for the shift include The clinical goals for the shift include pt will remain HDS throughout the shift The patient's goals for the shift include The clinical goals for the shift include pt will remain HDS throughout the shift Over the shift, the patient did make progress toward the following goals. Problem: Fall/Injury Goal: Not fall by end of shift Outcome: Progressing Goal: Be free from injury by end of the shift Outcome: Progressing Goal: Verbalize understanding of personal risk factors for fall in the hospital Outcome: Progressing Goal: Verbalize understanding of risk factor reduction measures to prevent injury from fall in the home Outcome: Progressing Goal: Use assistive devices by end of the shift Outcome: Progressing Goal: Pace activities to prevent fatigue by end of the shift Outcome: Progressing Problem: Pain - Adult Goal: Verbalizes/displays adequate comfort level or baseline comfort level Outcome: Progressing Problem: Safety - Adult Goal: Free from fall injury Outcome: Progressing Problem: Discharge Planning Goal: Discharge to home or other facility with appropriate resources Outcome: Progressing Problem: Chronic Conditions and Co-morbidities Goal: Patient's chronic conditions and co-morbidity symptoms are monitored and maintained or improved Outcome: Progressing Problem: Diabetes Goal: Achieve decreasing blood glucose levels by end of shift Outcome: Progressing Goal: Increase stability of blood glucose readings by end of shift Outcome: Progressing Goal: Decrease in ketones present in urine by end of shift Outcome: Progressing Goal: Maintain electrolyte levels within acceptable range throughout shift Outcome: Progressing Goal: Maintain glucose levels >70mg/dl to <250mg/dl throughout shift Outcome: Progressing Goal: No changes in neurological exam by end of shift Outcome: Progressing Goal: Learn about and adhere to nutrition recommendations by end of shift Outcome: Progressing Goal: Vital signs within normal range for age by end of shift Outcome: Progressing Goal: Increase self care and/or family involovement by end of shift Outcome: Progressing Goal: Receive DSME education by end of shift Outcome: Progressing pt did not received his Vericiguat tonight. Pharmacy said we do not have this med. Pt needs to bring from home but he does not know how he can bring it as he lives 2 hours away from here. Care team will need to find a solution tomorrow documented in this encounter [facility] Work Phone: 11-12-2023 History of Present illness Narrative Subjective Data: Patient sitting up in chair this morning prior to his TAVR. He reports feeling well and eager for procedure today. All questions were answered and addressed. - TAVR this morning - team to cover patient's care for the next 24hr, will likely come back to [facility] after 24hr for further diuresis and to coordinate discharge back to his facility Overnight Events: No acute events overnight Objective Data: Last Recorded Vitals: Vitals: 11/12/23 0542 11/12/23 0721 11/12/23 1039 11/12/23 1040 BP: 108/57 135/62 Pulse: 69 63 Resp: 19 Temp: 36.3 C (97.3 F) TempSrc: SpO2: 97% 100% 100% Weight: 90.9 kg (200 lb 4.8 oz) Height: Last Labs: Results for orders placed or performed during the hospital encounter of 11/12/23 (from the past 24 hour(s)) ACTIVATED CLOTTING TIME LOW Result Value Ref Range POCT Activated Clotting Time Low Range 313 (H) 83 - 199 sec Last I/O: I/O last 3 completed shifts: In: 480 (5.3 mL/kg) [P.O.:480] Out: 2049 (22.6 mL/kg) [Urine:2049 (0.6 mL/kg/hr)] Weight: 90.9 kg Past Cardiology Tests (Last 3 Years): 07/01/23 NM stress IMPRESSION: Normal Lexiscan [employer] cardiac perfusion stress test. No evidence of ischemia or myocardial infarction by perfusion imaging. Normal left ventricular systolic function, ejection fraction 51%. No previous studies are available for comparison. Echo: Transthoracic Echo (TTE) Complete 02/26/2023 CONCLUSIONS: 1. Left ventricular systolic function is normal with a 65% estimated ejection fraction. 2. Mild concentric left ventricular hypertrophy. 3. Mildly dilated left atrium. 4. Mild mitral valve regurgitation. 5. Mild tricuspid regurgitation is visualized. 6. Severely elevated right ventricular systolic pressure. 7. Aortic valve appears abnormal. 8. Calcified aortic valve with appearance of aortic stenosis. Peak gradient is 61 mmHg. Mean gradient is 33 mmHg. Calculated aortic valve area is 1.08 cm consistent with moderate severe aortic stenosis. 9. No previous study available for comparison. Cath: No results found for this or any previous visit from the past 1095 days. Stress Test: Nuclear Stress Test 07/01/2023 Cardiac Imaging: No results found for this or any previous visit from the past 1095 days. Inpatient Medications: Scheduled medications Medication Dose Route Frequency cholecalciferol 5,000 Units oral Daily docusate sodium 100 mg oral BID finasteride 5 mg oral Daily folic acid 800 mcg oral Daily insulin lispro 0-10 Units subcutaneous TID iron polysaccharides 150 mg oral Daily with evening meal levothyroxine 100 mcg oral Every Wednesday levothyroxine 50 mcg oral Once per day on Wednesday lidocaine 1 patch transdermal Daily magnesium oxide 400 mg oral Daily [Held by provider] metoprolol succinate XL 50 mg oral Daily montelukast 10 mg oral Once per day on Wednesday pantoprazole 40 mg oral BID polyethylene glycol 17 g oral Daily rosuvastatin 5 mg oral Nightly sodium chloride 1 spray Each Nostril 4x daily [Held by provider] spironolactone 25 mg oral Daily tamsulosin 0.4 mg oral Nightly PRN medications Medication acetaminophen calcium carbonate dextrose dextrose dextrose glucagon heparin melatonin oxyCODONE-acetaminophen Continuous Medications Medication Dose Last Rate [Held by provider] furosemide 20 mg/hr Stopped (11/07/232208) [Held by provider] heparin 0-4,000 Units/hr Stopped (08/16/24 0826) lactated Ringer's 75 mL/hr Physical Exam: General: NAD, sitting up in chair Head/ neck: elevated JVD Cardiac: RRR, regular S1 S2 , 3/6 systolic murmur, no rub, no gallop; paced rhythm on tele, occ PVC's Pulm: CTAB. On RA Ext: warm to touch with palpable radial and pedal pulses GI: semisoft, non tender, + BS Extremities: 1/2+ pitting bilateral LE edema to mid calves (L>R edema at baseline), discoloration c/w venous stasis Neuro: speech clear, A & O x3, no focal neuro deficits Psych: appropriate mood and behavior, pleasant Skin: warm and dry Assessment/Plan Shahid Sanchez is a 83 y.o. male with a medical history of HTN, DM, HLD, A-fib, sick sinus syndrome s/p pacemaker, RA, HFrEF, severe aortic stenosis, CAD, GUNNER (not using CPAP), chronic respiratory failure from CHF on 2.5LO2, was directly admitted by structural heart team/ Dr. Brenner for HFrEF exacerbation, anemia and possible expedited TAVR. Acute on Chronic systolic heart failure, HFrEF 35%, NICM Severe aortic stenosis, HUBER 0.7cm - lodging facilities attendant Dr. Cruz, last seen 10/12 in decompensated CHF, Zaroxyln 2.5mg daily was started - team 10/[address] Dr[address] Re[address] Dr. Brenner, CT TAVR 10/05. Planned for TAVR 11/04 if Hgb remained stable >8. - Hgb (09/13) 10.7, (10/04) 8.4. when given update of recommendations, he reported dark stools, was asked to follow up with PCP Dr. Raymundo for suspected AVMs, see above - TTE 02/26/23 EF 65%, mild LVH, mild dilated LA, mild MR, TR, RVSP 64, HUBER 1cm2, peak grad 61mmHg,mn grad 33. - [place] 09/13/23 : EF 35%, LVH, LA moderately dilated, severe , max grad 64mmHg, mn 36mmHg, HUBER 0.7cm2. mild MR, TR, RVSP 50-60 - CT TAVR 10/06/23: Extensive atherosclerotic changes of thoracoabdominal aorta and branches. Mod to sev stenosis L renal artery. Severe calcifications of aortic valve. Pulmonary interstitial and alveolar edema with small bilateral pleural effusions. 1.5 cm left thyroid nodule. Prostatomegaly. Severe coronary artery calcifications. - admit BNP: 417 - admit wt: 96.2 kg - admit CXR: Worsening interstitial edema - daily standing wt: 90.9 kg (91.2, 91, 90.4, 90.2, 92.8, 95.2, 95.9, 95.3, 96.5, 97.1) - Aldactone dc'd outpt due to elevated K, restarted at discharge on 10/25 - s/p 120 mg IVP Lasix bolus on 11/03 (drip initiated at 15 mg/hr) & 11/04, 500 mg IV Diuril 11/05 - good response to drip + Diuril; s/p 500 mg IV Diuril on 11/05 & 11/06 - lasix gtt held 11/06 at 2200 for worsening MAYLIN, 40 mg IVP Lasix x2 on 11/07, s/p diuretic holiday on 11/08 iso worsening MAYLIN - remains hypervolemic, Cr stably elevated 1.66 - may need further IV diuresis following TAVR - on vericiguat for 1 week at home per pt, possibly as a trial, not on formulary here, follow up with outpt prescriber - home diuretic: bumex 1mg BID (upon dc from [facility] 10/25) - cont hold [place] 25 mg daily iso MAYLIN - held AM metop succ 50mg per SH prior to TAVR - 2gram sodium diet, 2L fluid restriction, daily standing weights, strict I&O's CAD - 07/01/23 lexiscan stress test negative for ischemia with EF 51% - [facility] 09/13: single vessel mild pRCA dz with collaterals - Medical therapy was recommended - cont Crestor 5 mg nightly, OAC instead of ASA in light of AF, see below SSS s/p single chamber pacemaker 05/2023 Chronic atrial fibrillation MADELYN thrombus dx by echo 09/13/23 - Off anticoagulation since 10/19/23 due to severe GI bleed, see below - (11/03) trial resumption of anticoagulation with heparin gtt - remains on heparin drip, no nosebleeds, hgb stable/improved - Overall rate controlled AF with Vpacing on telemetry. Occasional ectopy Hypertension - well controlled on toprol XL - SBP last 24 hrs: 108-129 - Continue with meds as above History of acute GI bleed and anemia 10/19/23 History of colon cancer s/p resection without recurrence Hx of epistaxis - seen by GI at [facility] felt to be high risk for endoscopy locally. GI suggesting transfer to [facility] (patient ultimately discharged to SNF) S/P 2 units PRBC. Eliquis stopped with consideration to restart if Hgb stable in the future. Hemoglobin stable during admission. Possible AVMs as source. Considered possible candidate for watchman. (Records requested.) - Hgb 10/25/2023 was 8.9, 08/2022 was 12.6 - today 11/09 H/H 10.1.9 - s/p EGD 11/02 normal findings. GI stated too high risk for colonoscopy given frailty/co-morbidities, did not find it necessary. Signed off - (11/01) ENT consulted for hx of epistaxis and nasal congestion > nasal spray 4x daily for 10 days, ayr nasalgel doesn exist here, change 02 to humidified. No acute bleeding seen. Signed off - continues to have dark stools iso PO iron, Hgb remains stable - Von willebrand labs pending ([facility] 11/01); haptoglobin normal - Vitamin B12, folate, and LDH WNL - continue PPI, PO iron supplement MAYLIN Hx Hypervolemic hyponatremia, (10/19/23) - likely elevated Cr ISO aggressive diuresis at prior admission, improved by time of discharged 10/25 to 1.5 - b/l Cr normal ~0.9-1.2 - Na as low as 127 (10/18)> Stable while [place] [facility] ~140 - Per patient, was started on finerenone 20mg daily July or August 2023 to help with kidney function - Cr today: 1.66 (1.85, 1.74, 1.82, 1.75, 1.74, 1.63,1.32, 1.38, 1.30, 1.25,1.27-admit) - Avoid nephrotoxins and hypotension, trend daily RFP Chronic back pain due to Rheumatoid arthritis - on methotrexate at home, but stopped due to MAYLIN - on percocet and lidocaine patch at prior to admit- pt refusing lidocaine patch - cont PRN percocet 1 tab q4h DM2 - on metformin outpatient prior to admission - on humalog SS at [facility] - HgbA1C 10/31: 6.9 % - SSI scale #2 while inpatient - diabetic diet, Accu-Cheks AC/HS, hypoglycemic protocol History of hypothyroidism - TSH 8.94 elevated on 10/31, FT4 1.32 wnl - continue levothyroxine 100 mcg on Sundays, 50 mcg every other day - follow up with PCP DVT ppx: heparin gtt DISPO: s/p TAVR 11/11, pending further diuresis/optimization - SH team to cover patient's care for the next 24hr, will likely come back to [facility] after 24hr for further diuresis and to coordinate discharge back to his facility Code status: Full Code NOK: DaughterPaddy Discussed with Dr. Christophe Ornelas PA-C Associated attestation - Waldo Saeed MD - 11/12/2023 6:05 PM EDT This is a shared visit. I have reviewed the Advanced Practice Provider's encounter note, approve the Advanced Practice Provider's documentation, and provide the following additional information from my personal encounter. Now s/p 34 mm Evolut Fx + TAVR. Did well. Structural team is primary tomorrow. Can likely be discharged in the next few days. Normal rate, regular rhythm, softer systolic murmur, minimal LE edema. Waldo Saeed MD Subjective Data: Patient sitting up in chair during assessment this AM. He reports less UO yesterday following one time IV lasix bolus; however LE does appear slightly improved. Encouraged ambulation around unit today. - remains hypervolemic, Cr stably elevated 1.85 - per SH, will hold off on further diuresis today while awaiting TAVR tomorrow - holding tomorrow AM metop succ per SH - plan for inpatient TAVR tomorrow AM 11/11 Overnight Events: No acute events overnight Objective Data: Last Recorded Vitals: Vitals: 11/11/23 0400 11/11/23 0516 11/11/23 0740 11/11/23 1218 BP: 101/50 119/52 93/59 Pulse: 67 69 68 Resp: 18 16 Temp: 36.5 C (97.7 F) 36.3 C (97.3 F) 36.2 C (97.2 F) TempSrc: Temporal SpO2: 96% 94% 93% 97% Weight: 91.2 kg (201 lb 1.6 oz) Height: Last Labs: Results for orders placed or performed during the hospital encounter of 11/01/23 (from the past 24 hour(s)) POCT GLUCOSE Result Value Ref Range POCT Glucose 197 (H) 74 - 99 mg/dL Renal Function Panel Result Value Ref Range Glucose 169 (H) 74 - 99 mg/dL Sodium 136 136 - 145 mmol/L Potassium 4.3 3.5 - 5.3 mmol/L Chloride 93 (L) 98 - 107 mmol/L Bicarbonate 30 21 - 32 mmol/L Anion Gap 17 10 - 20 mmol/L Urea Nitrogen 41 (H) 6 - 23 mg/dL Creatinine 1.85 (H) 0.50 - 1.30 mg/dL eGFR 36 (L) >60 mL/min/1.73m*2 Calcium 9.1 8.6 - 10.6 mg/dL Phosphorus 4.0 2.5 - 4.9 mg/dL Albumin 3.7 3.4 - 5.0 g/dL Magnesium Result Value Ref Range Magnesium 2.15 1.60 - 2.40 mg/dL CBC Result Value Ref Range WBC 6.7 4.4 - 11.3 x10*3/uL nRBC 0.0 0.0 - 0.0 /100 WBCs RBC 3.23 (L) 4.50 - 5.90 x10*6/uL Hemoglobin 10.2 (L) 13.5 - 17.5 g/dL Hematocrit 30.9 (L) 41.0 - 52.0 % MCV 96 80 - 100 fL MCH 31.6 26.0 - 34.0 pg MCHC 33.0 32.0 - 36.0 g/dL RDW 16.4 (H) 11.5 - 14.5 % Platelets 296 150 - 450 x10*3/uL POCT GLUCOSE Result Value Ref Range POCT Glucose 233 (H) 74 - 99 mg/dL Heparin Assay, UFH Result Value Ref Range Heparin Unfractionated 0.6 See Comment Below for Therapeutic Ranges IU/mL POCT GLUCOSE Result Value Ref Range POCT Glucose 106 (H) 74 - 99 mg/dL Type and screen Result Value Ref Range ABO TYPE AB Rh TYPE NEG ANTIBODY SCREEN NEG POCT GLUCOSE Result Value Ref Range POCT Glucose 238 (H) 74 - 99 mg/dL Last I/O: I/O last 3 completed shifts: In: 720 (7.9 mL/kg) [P.O.:720] Out: 1500 (16.4 mL/kg) [Urine:1500 (0.5 mL/kg/hr)] Weight: 91.2 kg Past Cardiology Tests (Last 3 Years): 07/01/23 NM stress IMPRESSION: Normal Lexiscan Myoview cardiac perfusion stress test. No evidence of ischemia or myocardial infarction by perfusion imaging. Normal left ventricular systolic function, ejection fraction 51%. No previous studies are available for comparison. Echo: Transthoracic Echo (TTE) Complete 02/26/2023 CONCLUSIONS: 1. Left ventricular systolic function is normal with a 65% estimated ejection fraction. 2. Mild concentric left ventricular hypertrophy. 3. Mildly dilated left atrium. 4. Mild mitral valve regurgitation. 5. Mild tricuspid regurgitation is visualized. 6. Severely elevated right ventricular systolic pressure. 7. Aortic valve appears abnormal. 8. Calcified aortic valve with appearance of aortic stenosis. Peak gradient is 61 mmHg. Mean gradient is 33 mmHg. Calculated aortic valve area is 1.08 cm consistent with moderate severe aortic stenosis. 9. No previous study available for comparison. Cath: No results found for this or any previous visit from the past 1095 days. Stress Test: Nuclear Stress Test 07/01/2023 Cardiac Imaging: No results found for this or any previous visit from the past 1095 days. Inpatient Medications: Scheduled medications Medication Dose Route Frequency cholecalciferol 5,000 Units oral Daily docusate sodium 100 mg oral BID finasteride 5 mg oral Daily folic acid 800 mcg oral Daily insulin lispro 0-10 Units subcutaneous TID iron polysaccharides 150 mg oral Daily with evening meal levothyroxine 100 mcg oral Every Wednesday levothyroxine 50 mcg oral Once per day on Wednesday lidocaine 1 patch transdermal Daily magnesium oxide 400 mg oral Daily [Held by provider] metoprolol succinate XL 50 mg oral Daily montelukast 10 mg oral Once per day on Wednesday pantoprazole 40 mg oral BID polyethylene glycol 17 g oral Daily rosuvastatin 5 mg oral Nightly sodium chloride 1 spray Each Nostril 4x daily [Held by provider] spironolactone 25 mg oral Daily tamsulosin 0.4 mg oral Nightly PRN medications Medication acetaminophen calcium carbonate dextrose dextrose dextrose glucagon heparin melatonin oxyCODONE-acetaminophen Continuous Medications Medication Dose Last Rate [Held by provider] furosemide 20 mg/hr Stopped (11/07/232208) heparin 0-4,000 Units/hr 1,400 Units/hr (11/11/23918) Physical Exam: General: NAD, sitting up in chair Head/ neck: elevated JVD Cardiac: RRR, regular S1 S2 , 3/6 systolic murmur, no rub, no gallop; paced rhythm on tele, occ PVC's Pulm: CTAB. On RA Ext: warm to touch with palpable radial and pedal pulses GI: semisoft, non tender, + BS Extremities: 1/2+ pitting bilateral LE edema to mid calves (L>R edema at baseline), discoloration c/w venous stasis Neuro: speech clear, A & O x3, no focal neuro deficits Psych: appropriate mood and behavior, pleasant Skin: warm and dry Assessment/Plan Shahid Sanchez is a 83 y.o. male with a medical history of HTN, DM, HLD, A-fib, sick sinus syndrome s/p pacemaker, RA, HFrEF, severe aortic stenosis, CAD, GUNNER (not using CPAP), chronic respiratory failure from CHF on 2.5LO2, was directly admitted by structural heart team/ Dr. Brenner for HFrEF exacerbation, anemia and possible expedited TAVR. 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 Re[address] Dr. Brenner, CT TAVR 10/05. Planned for TAVR 11/04 if Hgb remained stable >8. - Hgb (09/13) 10.7, (10/04) 8.4. when given update of recommendations, he reported dark stools, was asked to follow up with PCP Dr. Raymundo for suspected AVMs, see above - TTE 02/26/23 EF 65%, mild LVH, mild dilated LA, mild MR, TR, RVSP 64, HUBER 1cm2, peak grad 61mmHg,mn grad 33. - [facility] 09/13/23 : EF 35%, LVH, LA moderately dilated, severe , max grad 64mmHg, mn 36mmHg, HUBER 0.7cm2. mild MR, TR, RVSP 50-60 - CT TAVR 10/06/23: Extensive atherosclerotic changes of thoracoabdominal aorta and branches. Mod to sev stenosis L renal artery. Severe calcifications of aortic valve. Pulmonary interstitial and alveolar edema with small bilateral pleural effusions. 1.5 cm left thyroid nodule. Prostatomegaly. Severe coronary artery calcifications. - admit BNP: 417 - admit wt: 96.2 kg - admit CXR: Worsening interstitial edema - daily standing wt: 91.2 kg (91, 90.4, 90.2, 92.8, 95.2, 95.9, 95.3, 96.5, 97.1) - Aldactone dc'd outpt due to elevated K, restarted at discharge on 10/25 - s/p 120 mg IVP Lasix bolus on 11/03 (drip initiated at 15 mg/hr) & 11/04, 500 mg IV Diuril 11/05 - good response to drip + Diuril; s/p 500 mg IV Diuril on 11/05 & 11/06 - lasix gtt held 11/06 at 2200 for worsening MAYLIN, 40 mg IVP Lasix x2 on 11/07, s/p diuretic holiday on 11/08 iso worsening MAYLIN - remains hypervolemic, Cr stably elevated 1.85 - per , will hold off on further diuresis today while awaiting TAVR tomorrow - following, TAVR Saturday 11/11, team aware that he will be inpatient until procedure (pt appealed dc) - on vericiguat for 1 week at home per pt, possibly as a trial, not on formulary here, follow up with outpt prescriber - home diuretic: bumex 1mg BID (upon dc from [facility] 10/25) - cont hold [place] 25 mg daily iso MAYLIN - cont: Toprol XL 50 mg daily (holding tomorrow AM metop succ per SH) - 2gram sodium diet, 2L fluid restriction, daily standing weights, strict I&O's CAD - 07/01/23 lexiscan stress test negative for ischemia with EF 51% - [facility] 09/13: single vessel mild pRCA dz with collaterals - Medical therapy was recommended - cont Crestor 5 mg nightly, OAC instead of ASA in light of AF, see below SSS s/p single chamber pacemaker 05/2023 Chronic atrial fibrillation MADELYN thrombus dx by echo 09/13/23 - Off anticoagulation since 10/19/23 due to severe GI bleed, see below - (11/03) trial resumption of anticoagulation with heparin gtt - remains on heparin drip, no nosebleeds, hgb stable/improved - Overall rate controlled AF with Vpacing on telemetry. Occasional ectopy Hypertension - well controlled on toprol XL - SBP last 24 hrs: 93-119 - Continue with meds as above History of acute GI bleed and anemia 10/19/23 History of colon cancer s/p resection without recurrence Hx of epistaxis - seen by GI at [facility] felt to be high risk for endoscopy locally. GI suggesting transfer to [facility] (patient ultimately discharged to SNF) S/P 2 units PRBC. Eliquis stopped with consideration to restart if Hgb stable in the future. Hemoglobin stable during admission. Possible AVMs as source. Considered possible candidate for watchman. (Records requested.) - Hgb 10/25/2023 was 8.9, 08/2022 was 12.6 - today 11/09 H/H 10.2/.9 - s/p EGD 11/02 normal findings. GI stated too high risk for colonoscopy given frailty/co-morbidities, did not find it necessary. Signed off - (11/01) ENT consulted for hx of epistaxis and nasal congestion > nasal spray 4x daily for 10 days, ayr nasalgel doesn exist here, change 02 to humidified. No acute bleeding seen. Signed off - continues to have dark stools iso PO iron, Hgb remains stable - Von willebrand labs pending ([facility] 11/01); haptoglobin normal - Vitamin B12, folate, and LDH WNL - continue PPI, PO iron supplement MAYLIN Hx Hypervolemic hyponatremia, (10/19/23) - likely elevated Cr ISO aggressive diuresis at prior admission, improved by time of discharged 10/25 to 1.5 - b/l Cr normal ~0.9-1.2 - Na as low as 127 (10/18)> St[place] [facility] - Per patient, was started on finerenone 20mg daily July or August 2023 to help with kidney function - Cr today: 1.85 (1.74, 1.82, 1.75, 1.74, 1.63,1.32, 1.38, 1.30, 1.25,1.27-admit) - Avoid nephrotoxins and hypotension, trend daily RFP Chronic back pain due to Rheumatoid arthritis - on methotrexate at home, but stopped due to MAYLIN - on percocet and lidocaine patch at prior to admit- pt refusing lidocaine patch - cont PRN percocet 1 tab q4h DM2 - on metformin outpatient prior to admission - on humalog SS at [facility] - HgbA1C 10/31: 6.9 % - SSI scale #2 while inpatient - diabetic diet, Accu-Cheks AC/HS, hypoglycemic protocol History of hypothyroidism - TSH 8.94 elevated on 10/31, FT4 1.32 wnl - continue levothyroxine 100 mcg on Sundays, 50 mcg every other day - follow up with PCP DVT ppx: heparin gtt DISPO: pending TAVR 11/11, pending further diuresis/optimization Code status: Full Code NOK: DaughterPaddy Pt seen and examined and plan of care discussed with Dr. Christophe Ornelas PA-C Associated attestation - Waldo Saeed MD - 11/11/2023 7:43 PM EDT This is a shared visit. I have reviewed the Advanced Practice Provider's encounter note, approve the Advanced Practice Provider's documentation, and provide the following additional information from my personal encounter. 83 M with HTN, HLD, DM, Afib, SSS s/p PPM, HFrEF (EF 35%) who was directly admitted by the structural heart team for HFrEF and expedited TAVR evaluation. 1. Plan for TAVR 11/11. Holding Lasix per structural recommendation. Exam: normal rate, non labored breathing, left worse than right LE edema, systolic ejection murmur. Waldo Saeed MD 11/11/2023 Care Coordination Per Primary service remains hypervolemic, Cr stably elevated 1.74 - will restart diuresis at a deescalated rate with IV Lasix 40mg x1 bolus - continues to have dark stools iso PO iron, Hgb remains stable - plan for inpatient TAVR 11/11 Subjective Data: Patient sitting up eating breakfast during AM assessment. He reports feeling well, noting improvement in his LE, however still remains edematous (L>R at baseline). Patient is eager to get his TAVR Wednesday. - remains hypervolemic, Cr stably elevated 1.74 - will restart diuresis at a deescalated rate with IV Lasix 40mg x1 bolus - continues to have dark stools iso PO iron, Hgb remains stable - plan for inpatient TAVR 11/11 Overnight Events: No acute events overnight Objective Data: Last Recorded Vitals: Vitals: 11/09/23 2321 11/10/23 0438 11/10/23 0807 11/10/23 1129 BP: 111/60 107/50 110/57 112/51 BP Location: Right arm Right arm Patient Position: Lying Lying Pulse: 70 75 74 69 Resp: 18 16 16 19 Temp: 36.5 C (97.7 F) 36.6 C (97.9 F) 36.4 C (97.5 F) 36.3 C (97.3 F) TempSrc: Temporal Temporal SpO2: 90% 92% 93% 98% Weight: 91 kg (200 lb 9.9 oz) Height: Last Labs: Results for orders placed or performed during the hospital encounter of 11/01/23 (from the past 24 hour(s)) POCT GLUCOSE Result Value Ref Range POCT Glucose 247 (H) 74 - 99 mg/dL POCT GLUCOSE Result Value Ref Range POCT Glucose 159 (H) 74 - 99 mg/dL POCT GLUCOSE Result Value Ref Range POCT Glucose 113 (H) 74 - 99 mg/dL Heparin Assay, UFH Result Value Ref Range Heparin Unfractionated 0.4 See Comment Below for Therapeutic Ranges IU/mL CBC Result Value Ref Range WBC 7.1 4.4 - 11.3 x10*3/uL nRBC 0.0 0.0 - 0.0 /100 WBCs RBC 3.24 (L) 4.50 - 5.90 x10*6/uL Hemoglobin 10.1 (L) 13.5 - 17.5 g/dL Hematocrit 31.0 (L) 41.0 - 52.0 % MCV 96 80 - 100 fL MCH 31.2 26.0 - 34.0 pg MCHC 32.6 32.0 - 36.0 g/dL RDW 16.2 (H) 11.5 - 14.5 % Platelets 252 150 - 450 x10*3/uL Renal Function Panel Result Value Ref Range Glucose 169 (H) 74 - 99 mg/dL Sodium 135 (L) 136 - 145 mmol/L Potassium 3.7 3.5 - 5.3 mmol/L Chloride 95 (L) 98 - 107 mmol/L Bicarbonate 27 21 - 32 mmol/L Anion Gap 17 10 - 20 mmol/L Urea Nitrogen 38 (H) 6 - 23 mg/dL Creatinine 1.74 (H) 0.50 - 1.30 mg/dL eGFR 39 (L) >60 mL/min/1.73m*2 Calcium 8.9 8.6 - 10.6 mg/dL Phosphorus 3.1 2.5 - 4.9 mg/dL Albumin 3.4 3.4 - 5.0 g/dL Magnesium Result Value Ref Range Magnesium 2.06 1.60 - 2.40 mg/dL POCT GLUCOSE Result Value Ref Range POCT Glucose 176 (H) 74 - 99 mg/dL Last I/O: I/O last 3 completed shifts: In: 960 (10.5 mL/kg) [P.O.:960] Out: 1422 (15.6 mL/kg) [Urine:1422 (0.4 mL/kg/hr)] Weight: 91 kg Past Cardiology Tests (Last 3 Years): 07/01/23 NM stress IMPRESSION: Normal Lexiscan Myoview cardiac perfusion stress test. No evidence of ischemia or myocardial infarction by perfusion imaging. Normal left ventricular systolic function, ejection fraction 51%. No previous studies are available for comparison. Echo: Transthoracic Echo (TTE) Complete 02/26/2023 CONCLUSIONS: 1. Left ventricular systolic function is normal with a 65% estimated ejection fraction. 2. Mild concentric left ventricular hypertrophy. 3. Mildly dilated left atrium. 4. Mild mitral valve regurgitation. 5. Mild tricuspid regurgitation is visualized. 6. Severely elevated right ventricular systolic pressure. 7. Aortic valve appears abnormal. 8. Calcified aortic valve with appearance of aortic stenosis. Peak gradient is 61 mmHg. Mean gradient is 33 mmHg. Calculated aortic valve area is 1.08 cm consistent with moderate severe aortic stenosis. 9. No previous study available for comparison. Cath: No results found for this or any previous visit from the past 1095 days. Stress Test: Nuclear Stress Test 07/01/2023 Cardiac Imaging: No results found for this or any previous visit from the past 1095 days. Inpatient Medications: Scheduled medications Medication Dose Route Frequency cholecalciferol 5,000 Units oral Daily docusate sodium 100 mg oral BID finasteride 5 mg oral Daily folic acid 800 mcg oral Daily insulin lispro 0-10 Units subcutaneous TID iron polysaccharides 150 mg oral Daily with evening meal levothyroxine 100 mcg oral Every Wednesday levothyroxine 50 mcg oral Once per day on Wednesday lidocaine 1 patch transdermal Daily magnesium oxide 400 mg oral Daily metoprolol succinate XL 50 mg oral Daily montelukast 10 mg oral Once per day on Wednesday pantoprazole 40 mg oral BID polyethylene glycol 17 g oral Daily rosuvastatin 5 mg oral Nightly sodium chloride 1 spray Each Nostril 4x daily [Held by provider] spironolactone 25 mg oral Daily tamsulosin 0.4 mg oral Nightly PRN medications Medication acetaminophen calcium carbonate dextrose dextrose dextrose glucagon heparin melatonin oxyCODONE-acetaminophen Continuous Medications Medication Dose Last Rate [Held by provider] furosemide 20 mg/hr Stopped (11/07/232208) heparin 0-4,000 Units/hr 1,400 Units/hr (11/10/23 1226) Physical Exam: General: NAD, sitting up in chair Head/ neck: elevated JVD Cardiac: RRR, regular S1 S2 , 3/6 systolic murmur, no rub, no gallop; paced rhythm on tele, occ PVC's Pulm: CTAB. On RA Ext: warm to touch with palpable radial and pedal pulses GI: semisoft, non tender, + BS Extremities: 2+ pitting bilateral LE edema to mid calves (L>R edema at baseline), discoloration c/w venous stasis Neuro: speech clear, A & O x3, no focal neuro deficits Psych: appropriate mood and behavior, pleasant Skin: warm and dry Assessment/Plan Shahid Sanchez is a 83 y.o. male with a medical history of HTN, DM, HLD, A-fib, sick sinus syndrome s/p pacemaker, RA, HFrEF, severe aortic stenosis, CAD, GUNNER (not using CPAP), chronic respiratory failure from CHF on 2.LO2, was directly admitted by structural heart team/ Dr. Brenner for HFrEF exacerbation, anemia and possible expedited TAVR. 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ese [address] Dr. Brenner, CT TAVR 10/05. Planned for TAVR 11/04 if Hgb remained stable >8. - Hgb (09/13) 10.7, (10/04) 8.4. when given update of recommendations, he reported dark stools, was asked to follow up with PCP Dr. Raymundo for suspected AVMs, see above - TTE 02/26/23 EF 65%, mild LVH, mild dilated LA, mild MR, TR, RVSP 64, HUBER 1cm2, peak grad 61mmHg,mn grad 33. - [facility] 09/13/23 : EF 35%, LVH, LA moderately dilated, severe , max grad 64mmHg, mn 36mmHg, HUBER 0.7cm2. mild MR, TR, RVSP 50-60 - CT TAVR 10/06/23: Extensive atherosclerotic changes of thoracoabdominal aorta and branches. Mod to sev stenosis L renal artery. Severe calcifications of aortic valve. Pulmonary interstitial and alveolar edema with small bilateral pleural effusions. 1.5 cm left thyroid nodule. Prostatomegaly. Severe coronary artery calcifications. - admit BNP: 417 - admit wt: 96.2 kg - admit CXR: Worsening interstitial edema - daily standing wt: 91 kg (90.4, 90.2, 92.8, 95.2, 95.9, 95.3, 96.5, 97.1) - Aldactone dc'd outpt due to elevated K, restarted at discharge on 10/25 - s/p 120 mg IVP Lasix bolus on 11/03 (drip initiated at 15 mg/hr) & 11/04, 500 mg IV Diuril 11/05 - good response to drip + Diuril; s/p 500 mg IV Diuril on 11/05 & 11/06 - lasix gtt held 11/06 at 2200 for worsening MAYLIN, 40 mg IVP Lasix x2 on 11/07, s/p diuretic holiday on 11/08 iso worsening MAYLIN - remains hypervolemic, Cr stably elevated 1.74 - will restart diuresis at a deescalated rate with IV Lasix 40mg x1 bolus - SH following, TAVR Saturday 11/11, team aware that he will be inpatient until procedure (pt appealed dc) - on vericiguat for 1 week at home per pt, possibly as a trial, not on formulary here, follow up with outpt prescriber - home diuretic: bumex 1mg BID (upon dc from [facility] 10/25) - hold Devin 25 mg daily iso MAYLIN - cont: Toprol XL 50 mg daily - 2gram sodium diet, 2L fluid restriction, daily standing weights, strict I&O's CAD - 07/01/23 lexiscan stress test negative for ischemia with EF 51% - [facility] 09/13: single vessel mild pRCA dz with collaterals - Medical therapy was recommended - cont Crestor 5 mg nightly, OAC instead of ASA in light of AF, see below SSS s/p single chamber pacemaker 05/2023 Chronic atrial fibrillation MADELYN thrombus dx by echo 09/13/23 - Off anticoagulation since 10/19/23 due to severe GI bleed, see below - (11/03) trial resumption of anticoagulation with heparin gtt - remains on heparin drip, no nosebleeds, hgb stable/improved - Overall rate controlled AF with Vpacing on telemetry. Occasional ectopy Hypertension - well controlled on toprol XL - SBP last 24 hrs: 107-121 - Continue with meds as above History of acute GI bleed and anemia 10/19/23 History of colon cancer s/p resection without recurrence Hx of epistaxis - seen by GI at [facility] felt to be high risk for endoscopy locally. GI suggesting transfer to [facility] (patient ultimately discharged to ) S/P 2 units PRBC. Eliquis stopped with consideration to restart if Hgb stable in the future. Hemoglobin stable during admission. Possible AVMs as source. Considered possible candidate for watchman. (Records requested.) - Hgb 10/25/2023 was 8.9, 08/2022 was 12.6 - today 11/09 H/H 10.04/28 - s/p EGD 11/02 normal findings. GI stated too high risk for colonoscopy given frailty/co-morbidities, did not find it necessary. Signed off - (11/01) ENT consulted for hx of epistaxis and nasal congestion > nasal spray 4x daily for 10 days, ayr nasalgel doesn exist here, change 02 to humidified. No acute bleeding seen. Signed off - continues to have dark stools iso PO iron, Hgb remains stable - Von willebrand labs pending ([facility] 11/01); haptoglobin normal - Vitamin B12, folate, and LDH WNL - continue PPI, PO iron supplement MAYLIN Hx Hypervolemic hyponatremia, (10/19/23) - likely elevated Cr ISO aggressive diuresis at prior admission, improved by time of discharged 10/25 to 1.5 - b/l Cr normal ~0.9-1.2 - Na as low as 127 (10/18)> Stable [place] [facility]140 - Per patient, was started on finerenone 20mg daily July or August 2023 to help with kidney function - Cr today: 1.74 (1.82, 1.75, 1.74, 1.63,1.32, 1.38, 1.30, 1.25,1.27-admit) - Avoid nephrotoxins and hypotension, trend daily RFP Chronic back pain due to Rheumatoid arthritis - on methotrexate at home, but stopped due to MAYLIN - on percocet and lidocaine patch at prior to admit- pt refusing lidocaine patch - cont PRN percocet 1 tab q4h DM2 - on metformin outpatient prior to admission - on humalog SS at [facility] - HgbA1C 10/31: 6.9 % - SSI scale #2 while inpatient - diabetic diet, Accu-Cheks AC/HS, hypoglycemic protocol History of hypothyroidism - TSH 8.94 elevated on 10/31, FT4 1.32 wnl - continue levothyroxine 100 mcg on Sundays, 50 mcg every other day - follow up with PCP DVT ppx: heparin gtt DISPO: pending TAVR this admit 11/11, pending further diuresis/optimization Code status: Full Code NOK: DaughterPaddy Pt seen and examined and plan of care discussed with Dr. Christophe Ornelas PA-C Associated attestation - Waldo Saeed MD - 11/10/2023 10:50 PM EDT This is a shared visit. I have reviewed the Advanced Practice Provider's encounter note, approve the Advanced Practice Provider's documentation, and provide the following additional information from my personal encounter. 83 M with HTN, HLD, DM, Afib, SSS s/p PPM, HFrEF (EF 35%) who was directly admitted by the structural heart team for HFrEF and expedited TAVR evaluation. 1. Plan for TAVR 11/11. Transition Lasix drip to Lasix IV pushes. Exam: normal rate, non labored breathing, left worse than right LE edema, systolic ejection murmur. Waldo Saeed MD Physical Therapy Physical Therapy Evaluation Patient Name: Shahid Sanchez Today's Date: 11/10/2023 Time Calculation Start Time: 857 Stop Time: 912 Time Calculation (min): 15 min Assessment/Plan PT Assessment PT Assessment Results: Decreased strength, Decreased endurance, Decreased mobility Rehab Prognosis: Excellent Barriers to Discharge: Medical acuity Evaluation/Treatment Tolerance: Patient tolerated treatment well Medical Staff Made Aware: Yes Strengths: Physical health End of Session Communication: Bedside nurse Assessment Comment: Previously independent 83 y.o. M presents with HFrEF exacerbation, anemia and possible expedited TAVR on 11/11. Pt is able to perform all functional mobility with SBA. Pt is appropriate for Moderate Intensity Rehab upon D/C 2/2 history of recent falls. End of Session Patient Position: Up in chair, Alarm off, not on at start of session IP OR SWING BED PT PLAN Inpatient or Swing Bed: Inpatient PT Plan Treatment/Interventions: Bed mobility, Transfer training, Gait training, Stair training, Strengthening, Endurance training, Range of motion, Therapeutic exercise, Therapeutic activity PT Plan: Ongoing PT PT Frequency: 2 times per week PT Discharge Recommendations: Moderate intensity level of continued care Equipment Recommended upon Discharge: (Owns) PT Recommended Transfer Status: Stand by assist PT - OK to Discharge: Yes Subjective General Visit Information: General Reason for Referral: HFrEF exacerbation, anemia and possible expedited TAVR on 11/11 Past Medical History Relevant to Rehab: HTN, DM, HLD, A-fib, sick sinus syndrome s/p pacemaker, RA, HFrEF, severe aortic stenosis, CAD, GUNNER (not using CPAP), chronic respiratory failure from CHF on . Family/Caregiver Present: No Prior to Session Communication: Bedside nurse Patient Position Received: Up in room, Alarm off, not on at start of session Preferred Learning Style: auditory, verbal, visual General Comment: Pt pleasant and agreeable to PT session Home Living: Home Living Type of Home: Condo Lives With: Alone (Daughters live close by) Home Adaptive Equipment: (Rollator) Home Layout: One level Home Access: Level entry Bathroom Shower/Tub: Walk-in shower Bathroom Toilet: Standard Bathroom Equipment: Grab bars in shower Home Living Comments: Pt presenting to hospital from SNF where he stayed for a week and plans to D/C to SNF prior to returning home Prior Level of Function: Prior Function Per Pt/Caregiver Report Level of Justin: Independent with ADLs and functional transfers, Independent with homemaking with ambulation 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 Prior Function Comments: + drives, 2 falls inlast 6 months Precautions: Precautions Medical Precautions: Fall precautions, Cardiac precautions Objective Pain: Pain Assessment Pain Assessment: 0-10 0-10 (Numeric) Pain Score: 6 Pain Type: Chronic pain Pain Location: Back Pain Orientation: Lower Pain Interventions: Rest Cognition: Cognition Orientation Level: Oriented X4 General Assessments: Activity Tolerance Endurance: Endurance does not limit participation in activity Sensation Light Touch: No apparent deficits Coordination Movements are Fluid and Coordinated: Yes Postural Control Postural Control: Within Functional Limits Static Sitting Balance Static Sitting-Level of Assistance: Independent Static Standing Balance Static Standing-Level of Assistance: Distant supervision Functional Assessments: Transfers Transfer: Yes Transfer 1 Transfer From 1: Chair with arms to Transfer to 1: Stand Technique 1: Sit to stand Transfer Level of Assistance 1: Close supervision, Minimal verbal cues Transfers 2 Transfer From 2: Stand to Transfer to 2: Chair with arms Technique 2: Stand to sit Transfer Level of Assistance 2: Close supervision, Minimal verbal cues Trials/Comments 2: X2 Ambulation/Gait Training Ambulation/Gait Training Performed: Yes Ambulation/Gait Training 1 Surface 1: Level tile, Carpet Device 1: IV Pole Assistance 1: Close supervision, Minimal verbal cues Quality of Gait 1: Narrow base of support, Decreased step length Comments/Distance (ft) 1: 150ft Extremity/Trunk Assessments: RLE RLE : Within Functional Limits LLE LLE : Within Functional Limits Outcome Measures: [facility] Basic Mobility Turning from your back to your side while in a flat bed without using bedrails: None Moving from lying on your back to sitting on the side of a flat bed without using bedrails: None Moving to and from bed to chair (including a wheelchair): None Standing up from a chair using your arms (e.g. wheelchair or bedside chair): None To walk in hospital room: None Climbing 3-5 steps with railing: A little Basic Mobility - Total Score: 23 Encounter Problems Encounter Problems (Active) Balance STG - Maintains dynamic standing balance without upper extremity support (Progressing) Start: 11/10/23 Expected End: 11/24/23 INTERVENTIONS: 1. Practice standing with minimal support. 2. Educate patient about standing tolerance. 3. Educate patient about independence with gait, transfers, and ADL's. 4. Educate patient about use of assistive device. 5. Educate patient about self-directed care. Mobility LTG - Patient will ambulate community distance indep with LRD (Progressing) Start: 11/10/23 Expected End: 11/24/23 LTG - Patient will navigate 4-6 steps indep with rails/device (Progressing) Start: 11/10/23 Expected End: 11/24/23 PT Transfers STG - Transfer from bed to chair indep with LRD (Progressing) Start: 11/10/23 Expected End: 11/24/23 Pain - Adult Education Documentation Precautions, taught by Vanda Frausto PT at 11/10/2023 12:41 PM. Learner: Patient Readiness: Acceptance Method: Explanation Response: Verbalizes Understanding Body Mechanics, taught by Vanda Frausto PT at 11/10/2023 12:41 PM. Learner: Patient Readiness: Acceptance Method: Explanation Response: Verbalizes Understanding Mobility Training, taught by Vanda Frausto PT at 11/10/2023 12:41 PM. Learner: Patient Readiness: Acceptance Method: Explanation Response: Verbalizes Understanding Education Comments No comments found. Subjective Data: Patient seen and assessed this morning, sitting up in chair, ambulating in room, NAD. Denies any CP or SOB, dizziness or lightheadedness. Remains hypervolemic, but with elevated Cr will hold further diuresis. Reporting black/dark stool and upset stomach, Hgb improving, low suspisoin for acute bleeding. Updated on plan of care, agreeable to plan. - remains hypervolemic, but Cr today 1.82, cont diuretic holiday - PVR today with ~75 cc Overnight Events: No acute events overnight Objective Data: Last Recorded Vitals: Vitals: 11/09/23 0421 11/09/23 0811 11/09/23 1209 11/09/23 1526 BP: (!) 103/46 (!) 107/49 121/58 120/54 Pulse: 79 69 73 70 Resp: 16 18 16 16 Temp: 36.4 C (97.5 F) 36.4 C (97.5 F) 36.4 C (97.5 F) TempSrc: SpO2: 93% 99% 92% 95% Weight: 90.4 kg (199 lb 4.7 oz) Height: Last Labs: Results for orders placed or performed during the hospital encounter of 11/01/23 (from the past 24 hour(s)) CBC Result Value Ref Range WBC 8.1 4.4 - 11.3 x10*3/uL nRBC 0.0 0.0 - 0.0 /100 WBCs RBC 3.34 (L) 4.50 - 5.90 x10*6/uL Hemoglobin 10.4 (L) 13.5 - 17.5 g/dL Hematocrit 32.3 (L) 41.0 - 52.0 % MCV 97 80 - 100 fL MCH 31.1 26.0 - 34.0 pg MCHC 32.2 32.0 - 36.0 g/dL RDW 16.2 (H) 11.5 - 14.5 % Platelets 286 150 - 450 x10*3/uL Renal Function Panel Result Value Ref Range Glucose 238 (H) 74 - 99 mg/dL Sodium 135 (L) 136 - 145 mmol/L Potassium 3.4 (L) 3.5 - 5.3 mmol/L Chloride 92 (L) 98 - 107 mmol/L Bicarbonate 29 21 - 32 mmol/L Anion Gap 17 10 - 20 mmol/L Urea Nitrogen 40 (H) 6 - 23 mg/dL Creatinine 1.82 (H) 0.50 - 1.30 mg/dL eGFR 37 (L) >60 mL/min/1.73m*2 Calcium 9.4 8.6 - 10.6 mg/dL Phosphorus 4.1 2.5 - 4.9 mg/dL Albumin 3.7 3.4 - 5.0 g/dL Magnesium Result Value Ref Range Magnesium 2.16 1.60 - 2.40 mg/dL POCT GLUCOSE Result Value Ref Range POCT Glucose 226 (H) 74 - 99 mg/dL POCT GLUCOSE Result Value Ref Range POCT Glucose 139 (H) 74 - 99 mg/dL Heparin Assay, UFH Result Value Ref Range Heparin Unfractionated 0.4 See Comment Below for Therapeutic Ranges IU/mL POCT GLUCOSE Result Value Ref Range POCT Glucose 212 (H) 74 - 99 mg/dL POCT GLUCOSE Result Value Ref Range POCT Glucose 247 (H) 74 - 99 mg/dL Last I/O: I/O last 3 completed shifts: In: 240 (2.7 mL/kg) [P.O.:240] Out: 2975 (32.9 mL/kg) [Urine:2975 (0.9 mL/kg/hr)] Weight: 90.4 kg Past Cardiology Tests (Last 3 Years): 07/01/23 NM stress IMPRESSION: Normal Lexiscan Myoview cardiac perfusion stress test. No evidence of ischemia or myocardial infarction by perfusion imaging. Normal left ventricular systolic function, ejection fraction 51%. No previous studies are available for comparison. Echo: Transthoracic Echo (TTE) Complete 02/26/2023 CONCLUSIONS: 1. Left ventricular systolic function is normal with a 65% estimated ejection fraction. 2. Mild concentric left ventricular hypertrophy. 3. Mildly dilated left atrium. 4. Mild mitral valve regurgitation. 5. Mild tricuspid regurgitation is visualized. 6. Severely elevated right ventricular systolic pressure. 7. Aortic valve appears abnormal. 8. Calcified aortic valve with appearance of aortic stenosis. Peak gradient is 61 mmHg. Mean gradient is 33 mmHg. Calculated aortic valve area is 1.08 cm consistent with moderate severe aortic stenosis. 9. No previous study available for comparison. Ejection Fractions: No results found for: EF Cath: No results found for this or any previous visit from the past 1095 days. Stress Test: Nuclear Stress Test 07/01/2023 Cardiac Imaging: No results found for this or any previous visit from the past 1095 days. Inpatient Medications: Scheduled medications Medication Dose Route Frequency cholecalciferol 5,000 Units oral Daily docusate sodium 100 mg oral BID finasteride 5 mg oral Daily folic acid 800 mcg oral Daily insulin lispro 0-10 Units subcutaneous TID iron polysaccharides 150 mg oral Daily with evening meal levothyroxine 100 mcg oral Every Wednesday levothyroxine 50 mcg oral Once per day on Wednesday lidocaine 1 patch transdermal Daily magnesium oxide 400 mg oral Daily metoprolol succinate XL 50 mg oral Daily montelukast 10 mg oral Once per day on Wednesday pantoprazole 40 mg oral BID polyethylene glycol 17 g oral Daily rosuvastatin 5 mg oral Nightly sodium chloride 1 spray Each Nostril 4x daily [Held by provider] spironolactone 25 mg oral Daily tamsulosin 0.4 mg oral Nightly PRN medications Medication acetaminophen calcium carbonate dextrose dextrose dextrose glucagon heparin melatonin oxyCODONE-acetaminophen Continuous Medications Medication Dose Last Rate [Held by provider] furosemide 20 mg/hr Stopped (11/07/232208) heparin 0-4,000 Units/hr 1,400 Units/hr (11/09/23 1632) Physical Exam: General: NAD, sitting up in chair Head/ neck: elevated JVD Cardiac: RRR, regular S1 S2 , 3/6 systolic murmur, no rub, no gallop; paced rhythm on tele, occ PVC's Pulm: Crackles auscultated in RLL otherwise clear . On RA Ext: warm to touch with palpable radial and pedal pulses GI: semisoft, non tender, + BS Extremities: 2+ pitting bilateral LE edema to knees, discoloration c/w venous stasis Neuro: speech clear, A & O x3, no focal neuro deficits Psych: appropriate mood and behavior, pleasant Skin: warm and dry Assessment/Plan Shahid Sanchez is a 83 y.o. male with a medical history of HTN, DM, HLD, A-fib, sick sinus syndrome s/p pacemaker, RA, HFrEF, severe aortic stenosis, CAD, GUNNER (not using CPAP), chronic respiratory failure from CHF on 2.5LO2, was directly admitted by structural heart team/ Dr. Brenner for HFrEF exacerbation, anemia and possible expedited TAVR. 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ese [address] Dr. Brenner, CT TAVR 10/05. Planned for TAVR 11/04 if Hgb remained stable >8. - Hgb (09/13) 10.7, (10/04) 8.4. when given update of recommendations, he reported dark stools, was asked to follow up with PCP Dr. Raymundo for suspected AVMs, see above - TTE 02/26/23 EF 65%, mild LVH, mild dilated LA, mild MR, TR, RVSP 64, HUBER 1cm2, peak grad 61mmHg,mn grad 33. - [facility] 09/13/23 : EF 35%, LVH, LA moderately dilated, severe , max grad 64mmHg, mn 36mmHg, HUBER 0.7cm2. mild MR, TR, RVSP 50-60 - CT TAVR 10/06/23: Extensive atherosclerotic changes of thoracoabdominal aorta and branches. Mod to sev stenosis L renal artery. Severe calcifications of aortic valve. Pulmonary interstitial and alveolar edema with small bilateral pleural effusions. 1.5 cm left thyroid nodule. Prostatomegaly. Severe coronary artery calcifications. - admit BNP: 417 - admit wt: 96.2 kg - admit CXR: Worsening interstitial edema - daily standing wt: 90.4 kg (90.2, 92.8, 95.2, 95.9, 95.3, 96.5, 97.1) - Aldactone dc'd outpt due to elevated K, restarted at discharge on 10/25 - s/p 120 mg IVP Lasix bolus on 11/03 (drip initiated at 15 mg/hr) & 11/04, 500 mg IV Diuril 11/05 - good response to drip + Diuril; s/p 500 mg IV Diuril on 11/05 & 11/06 - lasix gtt held 11/06 at 2200 for worsening MAYLIN, 40 mg IVP Lasix x2 on 11/07 - remains hypervolemic, but Cr today 1.82, cont diuretic holiday, hold [place] 25 mg daily - PVR today with ~75 cc - SH following, TAVR Saturday 11/11, team aware that he will be inpatient until procedure (pt appealed dc) - on vericiguat for 1 week at home per pt, possibly as a trial, not on formulary here, follow up with outpt prescriber - home diuretic: bumex 1mg BID (upon dc from [facility] 10/25) - cont: Toprol XL 50 mg daily - 2gram sodium diet, 2L fluid restriction, daily standing weights, strict I&O's CAD - 07/01/23 lexiscan stress test negative for ischemia with EF 51% - [facility] 09/13: single vessel mild pRCA dz with collaterals - Medical therapy was recommended - cont Crestor 5 mg nightly, OAC instead of ASA in light of AF, see below SSS s/p single chamber pacemaker 05/2023 Chronic atrial fibrillation MADELYN thrombus dx by echo 09/13/23 - Off anticoagulation since 10/19/23 due to severe GI bleed, see below - (11/03) trial resumption of anticoagulation with heparin gtt - remains on heparin drip, no nosebleeds, hgb stable/improved - Overall rate controlled AF with Vpacing on telemetry. Occasional ectopy Hypertension - well controlled on toprol XL - SBP last 24 hrs: 103-125 - Continue with meds as above History of acute GI bleed and anemia 10/19/23 History of colon cancer s/p resection without recurrence Hx of epistaxis - seen by GI at [facility] felt to be high risk for endoscopy locally. GI suggesting transfer to [facility] (patient ultimately discharged to ) S/P 2 units PRBC. Eliquis stopped with consideration to restart if Hgb stable in the future. Hemoglobin stable during admission. Possible AVMs as source. Considered possible candidate for watchman. (Records requested.) - Hgb 10/25/2023 was 8.9, 08/2022 was 12.6 - today 11/07 H/H 10. - s/p EGD 11/02 normal findings. GI stated too high risk for colonoscopy given frailty/co-morbidities, did not find it necessary. Signed off - (11/01) ENT consulted for hx of epistaxis and nasal congestion > nasal spray 4x daily for 10 days, ayr nasalgel doesn exist here, change 02 to humidified. No acute bleeding seen. Signed off - Von willebrand labs pending ([facility] 11/01); haptoglobin normal - Vitamin B12, folate, and LDH WNL - continue PPI, PO iron supplement MAYLIN Hx Hypervolemic hyponatremia, (10/19/23) - likely elevated Cr ISO aggressive diuresis at prior admission, improved by time of discharged 10/25 to 1.5 - b/l Cr normal ~0.9-1.2 - Na as low as 127 (10/18)> Stable while [place] [facility] [place]140 - Per patient, was started on finerenone 20mg daily July or August 2023 to help with kidney function - Cr today: 1.82 (1.75, 1.74, 1.63,1.32, 1.38, 1.30, 1.25,1.27-admit) - Avoid nephrotoxins and hypotension, trend daily RFP Chronic back pain due to Rheumatoid arthritis - on methotrexate at home, but stopped due to MAYLIN - on percocet and lidocaine patch at prior to admit- pt refusing lidocaine patch - cont PRN percocet 1 tab q4h DM2 - on metformin outpatient prior to admission - on humalog SS at [facility] - HgbA1C 10/31: 6.9 % - SSI scale #2 while inpatient - diabetic diet, Accu-Cheks AC/HS, hypoglycemic protocol History of hypothyroidism - TSH 8.94 elevated on 8/5, FT4 1.32 wnl - continue levothyroxine 100 mcg on Sundays, 50 mcg every other day - follow up with PCP DVT ppx: heparin gtt DISPO: pending TAVR this admit 11/11, pending further diuresis/optimization Code status: Full Code NOK: DaughterPaddy Peripheral IV 11/01/23 20 G Left Wrist (Active) Site Assessment Dry;Intact;Clean 11/08/23899 Dressing Status Clean;Dry 11/08/23899 Number of days: 7 Peripheral IV 11/04/23 Left Forearm (Active) Site Assessment Clean;Dry;Intact 11/08/23899 Dressing Status Dry;Clean 11/08/23899 Number of days: 4 Pt seen and examined and plan of care discussed with Dr. Mala Mccallum, [employer] Associated attestation - Cody Medeiros MD - 11/10/2023 7:15 AM EDT This is a shared visit. I have reviewed the Advanced Practice Provider's encounter note, approve the Advanced Practice Provider's documentation, and provide the following additional information from my personal encounter. Give diuretic holiday today. Watch H/H, low threshold for GI evaluation. Plan TAVR later this week. Structural Heart Progress Note HPI Shahid Sanchez is a 83 y.o. male with a PMH of HTN, DM, HLD, A-fib, sick sinus syndrome s/p pacemaker, RA, HFrEF, CAD, GUNNER (not using CPAP), chronic respiratory failure due to recurrent admission from [facility] needing o2 2L, and severe aortic stenosis. Schedule for TAVR procedure 11/12/2023. Patient Active Problem List Diagnosis Date Noted Other specified anemias 11/04/2023 Severe aortic stenosis 11/01/2023 Nonrheumatic aortic valve stenosis 10/13/2023 Single vessel coronary artery disease 10/13/2023 Dilated cardiomyopathy (Multi) 10/13/2023 BMI 30.0-30.9,adult 06/23/2023 Pulmonary hypertension (Multi) 06/23/2023 Adenocarcinoma of colon (Multi) 02/23/2023 Persistent atrial fibrillation (Multi) 02/23/2023 Benign neoplasm of transverse colon 02/23/2023 Benign neoplasm of descending colon 02/23/2023 Diabetes mellitus (Multi) 02/23/2023 HFrEF (heart failure with reduced ejection fraction) (Multi) 02/23/2023 HTN (hypertension) 02/23/2023 Hypercholesteremia 02/23/2023 Hypothyroidism 02/23/2023 Immunosuppression (Multi) 02/23/2023 Kidney disease 02/23/2023 Personal history of colon cancer, stage II 02/23/2023 Positive colorectal cancer screening using Cologuard test 02/23/2023 Rheumatoid arthritis (Multi) 02/23/2023 Sleep apnea 02/23/2023 Vitamin D deficiency 02/23/2023 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/23/2023 Bradycardia 02/23/2023 Chronic systolic heart failure (Multi) 02/23/2023 Shortness of breath 02/23/2023 Abnormal ECG 01/21/2017 Aortic stenosis 11/05/2023 Aortic stenosis, severe 10/29/2023 LOS: 8 days Objective Vitals 24 hour ranges: Temp: [36.3 C (97.3 F)-36.5 C (97.7 F)] 36.4 C (97.5 F) Heart Rate: [68-79] 73 Resp: [16-20] 16 BP: (103-125)/(46-59) 121/58 SpO2: [92 %-99 %] 92 % Medical Gas Therapy: Supplemental oxygen O2 Delivery Method: Nasal cannula (2LNC) Intake/Output last 3 Shifts: Intake/Output Summary (Last 24 hours) at 11/09/2023 1412 Last data filed at 11/09/2023 1349 Gross per 24 hour Intake 480 ml Output 1497 ml Net -1017 ml LDA: Peripheral IV 11/01/23 20 G Left Wrist (Active) Placement Date/Time: 11/01/231627 Size (Gauge): 20 G Orientation: Left Location: Wrist Number of days: 7 Peripheral IV 11/04/23 Left Forearm (Active) Placement Date/Time: 11/04/23 1411 Orientation: Left Location: Forearm Site Prep: Alcohol;Chlorhexidine Insertion attempts: 1 Number of days: 5 Vent settings: Lab Results Results for orders placed or performed during the hospital encounter of 11/01/23 (from the past 96 hour(s)) CBC Result Value Ref Range WBC 8.1 4.4 - 11.3 x10*3/uL nRBC 0.0 0.0 - 0.0 /100 WBCs RBC 2.96 (L) 4.50 - 5.90 x10*6/uL Hemoglobin 9.1 (L) 13.5 - 17.5 g/dL Hematocrit 29.0 (L) 41.0 - 52.0 % MCV 98 80 - 100 fL MCH 30.7 26.0 - 34.0 pg MCHC 31.4 (L) 32.0 - 36.0 g/dL RDW 15.9 (H) 11.5 - 14.5 % Platelets 309 150 - 450 x10*3/uL Renal Function Panel Result Value Ref Range Glucose 277 (H) 74 - 99 mg/dL Sodium 137 136 - 145 mmol/L Potassium 3.6 3.5 - 5.3 mmol/L Chloride 93 (L) 98 - 107 mmol/L Bicarbonate 33 (H) 21 - 32 mmol/L Anion Gap 15 10 - 20 mmol/L Urea Nitrogen 31 (H) 6 - 23 mg/dL Creatinine 1.32 (H) 0.50 - 1.30 mg/dL eGFR 54 (L) >60 mL/min/1.73m*2 Calcium 8.5 (L) 8.6 - 10.6 mg/dL Phosphorus 3.6 2.5 - 4.9 mg/dL Albumin 3.2 (L) 3.4 - 5.0 g/dL Magnesium Result Value Ref Range Magnesium 1.84 1.60 - 2.40 mg/dL POCT GLUCOSE Result Value Ref Range POCT Glucose 150 (H) 74 - 99 mg/dL POCT GLUCOSE Result Value Ref Range POCT Glucose 188 (H) 74 - 99 mg/dL CBC Result Value Ref Range WBC 8.5 4.4 - 11.3 x10*3/uL nRBC 0.0 0.0 - 0.0 /100 WBCs RBC 3.02 (L) 4.50 - 5.90 x10*6/uL Hemoglobin 9.6 (L) 13.5 - 17.5 g/dL Hematocrit 29.4 (L) 41.0 - 52.0 % MCV 97 80 - 100 fL MCH 31.8 26.0 - 34.0 pg MCHC 32.7 32.0 - 36.0 g/dL RDW 16.1 (H) 11.5 - 14.5 % Platelets 330 150 - 450 x10*3/uL Heparin Assay, UFH Result Value Ref Range Heparin Unfractionated 0.5 See Comment Below for Therapeutic Ranges IU/mL POCT GLUCOSE Result Value Ref Range POCT Glucose 135 (H) 74 - 99 mg/dL POCT GLUCOSE Result Value Ref Range POCT Glucose 159 (H) 74 - 99 mg/dL POCT GLUCOSE Result Value Ref Range POCT Glucose 157 (H) 74 - 99 mg/dL CBC Result Value Ref Range WBC 8.0 4.4 - 11.3 x10*3/uL nRBC 0.0 0.0 - 0.0 /100 WBCs RBC 3.16 (L) 4.50 - 5.90 x10*6/uL Hemoglobin 9.9 (L) 13.5 - 17.5 g/dL Hematocrit 31.2 (L) 41.0 - 52.0 % MCV 99 80 - 100 fL MCH 31.3 26.0 - 34.0 pg MCHC 31.7 (L) 32.0 - 36.0 g/dL RDW 16.1 (H) 11.5 - 14.5 % Platelets 318 150 - 450 x10*3/uL Renal Function Panel Result Value Ref Range Glucose 151 (H) 74 - 99 mg/dL Sodium 139 136 - 145 mmol/L Potassium 4.0 3.5 - 5.3 mmol/L Chloride 96 (L) 98 - 107 mmol/L Bicarbonate 30 21 - 32 mmol/L Anion Gap 17 10 - 20 mmol/L Urea Nitrogen 33 (H) 6 - 23 mg/dL Creatinine 1.63 (H) 0.50 - 1.30 mg/dL eGFR 42 (L) >60 mL/min/1.73m*2 Calcium 9.5 8.6 - 10.6 mg/dL Phosphorus 3.4 2.5 - 4.9 mg/dL Albumin 3.6 3.4 - 5.0 g/dL Magnesium Result Value Ref Range Magnesium 2.15 1.60 - 2.40 mg/dL POCT GLUCOSE Result Value Ref Range POCT Glucose 215 (H) 74 - 99 mg/dL POCT GLUCOSE Result Value Ref Range POCT Glucose 137 (H) 74 - 99 mg/dL Heparin Assay, UFH Result Value Ref Range Heparin Unfractionated 0.4 See Comment Below for Therapeutic Ranges IU/mL POCT GLUCOSE Result Value Ref Range POCT Glucose 215 (H) 74 - 99 mg/dL POCT GLUCOSE Result Value Ref Range POCT Glucose 145 (H) 74 - 99 mg/dL CBC Result Value Ref Range WBC 9.0 4.4 - 11.3 x10*3/uL nRBC 0.0 0.0 - 0.0 /100 WBCs RBC 3.28 (L) 4.50 - 5.90 x10*6/uL Hemoglobin 10.2 (L) 13.5 - 17.5 g/dL Hematocrit 32.0 (L) 41.0 - 52.0 % MCV 98 80 - 100 fL MCH 31.1 26.0 - 34.0 pg MCHC 31.9 (L) 32.0 - 36.0 g/dL RDW 16.3 (H) 11.5 - 14.5 % Platelets 338 150 - 450 x10*3/uL Renal Function Panel Result Value Ref Range Glucose 164 (H) 74 - 99 mg/dL Sodium 138 136 - 145 mmol/L Potassium 4.2 3.5 - 5.3 mmol/L Chloride 92 (L) 98 - 107 mmol/L Bicarbonate 33 (H) 21 - 32 mmol/L Anion Gap 17 10 - 20 mmol/L Urea Nitrogen 36 (H) 6 - 23 mg/dL Creatinine 1.74 (H) 0.50 - 1.30 mg/dL eGFR 39 (L) >60 mL/min/1.73m*2 Calcium 9.8 8.6 - 10.6 mg/dL Phosphorus 4.1 2.5 - 4.9 mg/dL Albumin 3.7 3.4 - 5.0 g/dL Magnesium Result Value Ref Range Magnesium 2.09 1.60 - 2.40 mg/dL POCT GLUCOSE Result Value Ref Range POCT Glucose 258 (H) 74 - 99 mg/dL POCT GLUCOSE Result Value Ref Range POCT Glucose 131 (H) 74 - 99 mg/dL Renal Function Panel Result Value Ref Range Glucose 121 (H) 74 - 99 mg/dL Sodium 139 136 - 145 mmol/L Potassium 3.9 3.5 - 5.3 mmol/L Chloride 93 (L) 98 - 107 mmol/L Bicarbonate 32 21 - 32 mmol/L Anion Gap 18 10 - 20 mmol/L Urea Nitrogen 38 (H) 6 - 23 mg/dL Creatinine 1.75 (H) 0.50 - 1.30 mg/dL eGFR 38 (L) >60 mL/min/1.73m*2 Calcium 9.7 8.6 - 10.6 mg/dL Phosphorus 4.5 2.5 - 4.9 mg/dL Albumin 3.6 3.4 - 5.0 g/dL Heparin Assay, UFH Result Value Ref Range Heparin Unfractionated 0.4 See Comment Below for Therapeutic Ranges IU/mL POCT GLUCOSE Result Value Ref Range POCT Glucose 214 (H) 74 - 99 mg/dL POCT GLUCOSE Result Value Ref Range POCT Glucose 193 (H) 74 - 99 mg/dL CBC Result Value Ref Range WBC 8.1 4.4 - 11.3 x10*3/uL nRBC 0.0 0.0 - 0.0 /100 WBCs RBC 3.34 (L) 4.50 - 5.90 x10*6/uL Hemoglobin 10.4 (L) 13.5 - 17.5 g/dL Hematocrit 32.3 (L) 41.0 - 52.0 % MCV 97 80 - 100 fL MCH 31.1 26.0 - 34.0 pg MCHC 32.2 32.0 - 36.0 g/dL RDW 16.2 (H) 11.5 - 14.5 % Platelets 286 150 - 450 x10*3/uL Renal Function Panel Result Value Ref Range Glucose 238 (H) 74 - 99 mg/dL Sodium 135 (L) 136 - 145 mmol/L Potassium 3.4 (L) 3.5 - 5.3 mmol/L Chloride 92 (L) 98 - 107 mmol/L Bicarbonate 29 21 - 32 mmol/L Anion Gap 17 10 - 20 mmol/L Urea Nitrogen 40 (H) 6 - 23 mg/dL Creatinine 1.82 (H) 0.50 - 1.30 mg/dL eGFR 37 (L) >60 mL/min/1.73m*2 Calcium 9.4 8.6 - 10.6 mg/dL Phosphorus 4.1 2.5 - 4.9 mg/dL Albumin 3.7 3.4 - 5.0 g/dL Magnesium Result Value Ref Range Magnesium 2.16 1.60 - 2.40 mg/dL POCT GLUCOSE Result Value Ref Range POCT Glucose 226 (H) 74 - 99 mg/dL POCT GLUCOSE Result Value Ref Range POCT Glucose 139 (H) 74 - 99 mg/dL Heparin Assay, UFH Result Value Ref Range Heparin Unfractionated 0.4 See Comment Below for Therapeutic Ranges IU/mL POCT GLUCOSE Result Value Ref Range POCT Glucose 212 (H) 74 - 99 mg/dL POCT GLUCOSE Result Value Ref Range POCT Glucose 247 (H) 74 - 99 mg/dL Medications: Scheduled medications cholecalciferol, 5,000 Units, oral, Daily docusate sodium, 100 mg, oral, BID finasteride, 5 mg, oral, Daily folic acid, 800 mcg, oral, Daily insulin lispro, 0-10 Units, subcutaneous, TID iron polysaccharides, 150 mg, oral, Daily with evening meal levothyroxine, 100 mcg, oral, Every Wednesday levothyroxine, 50 mcg, oral, Once per day on Wednesday lidocaine, 1 patch, transdermal, Daily magnesium oxide, 400 mg, oral, Daily metoprolol succinate XL, 50 mg, oral, Daily montelukast, 10 mg, oral, Once per day on Wednesday pantoprazole, 40 mg, oral, BID polyethylene glycol, 17 g, oral, Daily rosuvastatin, 5 mg, oral, Nightly sodium chloride, 1 spray, Each Nostril, 4x daily spironolactone, 25 mg, oral, Daily tamsulosin, 0.4 mg, oral, Nightly Continuous medications [Held by provider] furosemide, 20 mg/hr, Last Rate: Stopped (11/07/232208) heparin, 0-4,000 Units/hr, Last Rate: 1,400 Units/hr (11/08/232255) PRN medications PRN medications: acetaminophen, calcium carbonate, dextrose, dextrose, dextrose, glucagon, heparin, melatonin, oxyCODONE-acetaminophen Physical Exam: Constitutional: awake/alert/oriented x3, no distress, cooperative Eyes: PERRL, ENMT: mucous membranes moist Head/Neck: NC?AT Respiratory/Thorax: clear upper lobes, + rales BB Cardiovascular: Regular rate and rhythm, + Systolic murmurs, normal S1 and S2 Gastrointestinal: Nondistended, soft, non-tender, no rebound tenderness or guarding, BS Extremities: + BLE edema, no cyanosis, + Neurological: alert and oriented x3, intact senses, motor, response and reflexes, normal strength Psychological: Appropriate mood and behavior Skin: Warm and dry, intact. Assessment/Plan Shahid Sanchez is a 83 y.o. male with a PMH of HTN, DM, HLD, A-fib, sick sinus syndrome s/p pacemaker, RA, HFrEF, CAD, GUNNER (not using CPAP), chronic respiratory failure due to recurrent admission from [facility] needing o2 2L, and severe aortic stenosis. Schedule for TAVR procedure 11/12/2023. Severe Aortic Stenosis SEBASTI[facility]N 09/13/23 : EF 35%, LVH, LA moderately dilated, severe , max grad 64mmHg, mn 36mmHg, HUBER 0.7cm2. mild MR, TR, RVSP 50-60 TAVR Workup all completed. - NYHA: IV - Frailty: 3 - EK11/01/2023 AV paced, HR 70, [place] -, QRS 158 ms - TTE: 09/13/2023 LV 35%, mild MR, mild TR, AV gradients 64/36 mmHg, RVSP elevated consistent with moderate to severe PHTN, LA moderate dilated, mobile densitey of the LA appendage measuring 0.7x0.8 cm consist with thrombus, RA moderately dilated, RA moderately dilated no pericardial effusion - CT TAVR: completed 10/05 - C: 09/13 completed Left Main no significant disease. Lesion to ostial area of the LAD 30% eccentric lesion, no stenosis, RCA totally occluded in the proximal portion (chronic) - dental clearance: No need, pt has full dentures - STS 2.8 - KCCQ completed PLAN: Continue diuresis per tolerance to optimized euvolemic stage Patient is schedule for TAVR procedure 11/12/2023. The day of the procedure: - NPO aftermidnight 11/11 0001 - HOLD any AC at midnight (HOLD Heparin gtt) - Avoid nephrotoxic drugs - Labs goal: Hgb>10, INR <1.5, PLT >50 - Type screen and ABO on 08/15 am D/w Dr. Nell Duron spent 30 minutes in the professional and overall care of this patient. We appreciate the ability to participate in the patient care. Please page [phone] if further questions and concerns. Andra A. Molina, 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 Subjective Data: Denies SOB, states he feels legs are getting better - pt appealing discharge though as mentioned over weekend but no discharge order yet - creatinine up to 1.74; lasix gtt held last pm - almost 3L neg - 40mg IV lasix BID Overnight Events: Lasix gtt held at 2200 Objective Data: Last Recorded Vitals: Vitals: 11/07/23 2332 11/08/23 0423 11/08/23 0820 11/08/23 1128 BP: 121/57 114/55 (!) 105/45 120/58 Pulse: 71 68 69 68 Resp: Temp: 36.1 C (97 F) 36.5 C (97.7 F) 36.4 C (97.5 F) 36.4 C (97.5 F) TempSrc: SpO2: 95% 94% 92% 92% Weight: 90.2 kg (198 lb 13.7 oz) Height: Last Labs: Results for orders placed or performed during the hospital encounter of 11/01/23 (from the past 24 hour(s)) POCT GLUCOSE Result Value Ref Range POCT Glucose 145 (H) 74 - 99 mg/dL CBC Result Value Ref Range WBC 9.0 4.4 - 11.3 x10*3/uL nRBC 0.0 0.0 - 0.0 /100 WBCs RBC 3.28 (L) 4.50 - 5.90 x10*6/uL Hemoglobin 10.2 (L) 13.5 - 17.5 g/dL Hematocrit 32.0 (L) 41.0 - 52.0 % MCV 98 80 - 100 fL MCH 31.1 26.0 - 34.0 pg MCHC 31.9 (L) 32.0 - 36.0 g/dL RDW 16.3 (H) 11.5 - 14.5 % Platelets 338 150 - 450 x10*3/uL Renal Function Panel Result Value Ref Range Glucose 164 (H) 74 - 99 mg/dL Sodium 138 136 - 145 mmol/L Potassium 4.2 3.5 - 5.3 mmol/L Chloride 92 (L) 98 - 107 mmol/L Bicarbonate 33 (H) 21 - 32 mmol/L Anion Gap 17 10 - 20 mmol/L Urea Nitrogen 36 (H) 6 - 23 mg/dL Creatinine 1.74 (H) 0.50 - 1.30 mg/dL eGFR 39 (L) >60 mL/min/1.73m*2 Calcium 9.8 8.6 - 10.6 mg/dL Phosphorus 4.1 2.5 - 4.9 mg/dL Albumin 3.7 3.4 - 5.0 g/dL Magnesium Result Value Ref Range Magnesium 2.09 1.60 - 2.40 mg/dL POCT GLUCOSE Result Value Ref Range POCT Glucose 258 (H) 74 - 99 mg/dL POCT GLUCOSE Result Value Ref Range POCT Glucose 131 (H) 74 - 99 mg/dL Renal Function Panel Result Value Ref Range Glucose 121 (H) 74 - 99 mg/dL Sodium 139 136 - 145 mmol/L Potassium 3.9 3.5 - 5.3 mmol/L Chloride 93 (L) 98 - 107 mmol/L Bicarbonate 32 21 - 32 mmol/L Anion Gap 18 10 - 20 mmol/L Urea Nitrogen 38 (H) 6 - 23 mg/dL Creatinine 1.75 (H) 0.50 - 1.30 mg/dL eGFR 38 (L) >60 mL/min/1.73m*2 Calcium 9.7 8.6 - 10.6 mg/dL Phosphorus 4.5 2.5 - 4.9 mg/dL Albumin 3.6 3.4 - 5.0 g/dL Heparin Assay, UFH Result Value Ref Range Heparin Unfractionated 0.4 See Comment Below for Therapeutic Ranges IU/mL POCT GLUCOSE Result Value Ref Range POCT Glucose 214 (H) 74 - 99 mg/dL Last I/O: I/O last 3 completed shifts: In: 660 (7.3 mL/kg) [P.O.:660] Out: 5230 (58 mL/kg) [Urine:5230 (1.6 mL/kg/hr)] Weight: 90.2 kg Past Cardiology Tests (Last 3 Years): 07/01/23 NM stress IMPRESSION: Normal Lexiscan Myoview cardiac perfusion stress test. No evidence of ischemia or myocardial infarction by perfusion imaging. Normal left ventricular systolic function, ejection fraction 51%. No previous studies are available for comparison. Echo: Transthoracic Echo (TTE) Complete 02/26/2023 CONCLUSIONS: 1. Left ventricular systolic function is normal with a 65% estimated ejection fraction. 2. Mild concentric left ventricular hypertrophy. 3. Mildly dilated left atrium. 4. Mild mitral valve regurgitation. 5. Mild tricuspid regurgitation is visualized. 6. Severely elevated right ventricular systolic pressure. 7. Aortic valve appears abnormal. 8. Calcified aortic valve with appearance of aortic stenosis. Peak gradient is 61 mmHg. Mean gradient is 33 mmHg. Calculated aortic valve area is 1.08 cm consistent with moderate severe aortic stenosis. 9. No previous study available for comparison. Ejection Fractions: No results found for: EF Cath: No results found for this or any previous visit from the past 1095 days. Stress Test: Nuclear Stress Test 07/01/2023 Cardiac Imaging: No results found for this or any previous visit from the past 1095 days. Inpatient Medications: Scheduled medications Medication Dose Route Frequency cholecalciferol 5,000 Units oral Daily docusate sodium 100 mg oral BID finasteride 5 mg oral Daily folic acid 800 mcg oral Daily furosemide 40 mg intravenous Once insulin lispro 0-10 Units subcutaneous TID iron polysaccharides 150 mg oral Daily with evening meal levothyroxine 100 mcg oral Every Wednesday levothyroxine 50 mcg oral Once per day on Wednesday lidocaine 1 patch transdermal Daily magnesium oxide 400 mg oral Daily metoprolol succinate XL 50 mg oral Daily montelukast 10 mg oral Once per day on Wednesday pantoprazole 40 mg oral BID polyethylene glycol 17 g oral Daily rosuvastatin 5 mg oral Nightly sodium chloride 1 spray Each Nostril 4x daily spironolactone 25 mg oral Daily tamsulosin 0.4 mg oral Nightly PRN medications Medication acetaminophen dextrose dextrose dextrose glucagon heparin melatonin oxyCODONE-acetaminophen Continuous Medications Medication Dose Last Rate [Held by provider] furosemide 20 mg/hr Stopped (11/07/232208) heparin 0-4,000 Units/hr 1,400 Units/hr (11/08/23 0516) Physical Exam: General: NAD, sitting up in chair Head/ neck: elevated JVD Cardiac: RRR, regular S1 S2 , 3/6 systolic murmur, no rub, no gallop; paced rhythm on tele Pulm: Crackles auscultated in RLL otherwise clear . On RA Ext: warm to touch with palpable radial and pedal pulses GI: semisoft, non tender, + BS Extremities: 2+ pitting bilateral LE edema to knees, discoloration c/w venous stasis Neuro: speech clear, A & O x3, no focal neuro deficits Psych: appropriate mood and behavior, pleasant Skin: warm and dry Assessment/Plan Shahid Sanchez is a 83 y.o. male with a medical history of HTN, DM, HLD, A-fib, sick sinus syndrome s/p pacemaker, RA, HFrEF, severe aortic stenosis, CAD, GUNNER (not using CPAP), chronic respiratory failure from CHF on 2.5LO2, was directly admitted by structural heart team/ Dr. Brenner for HFrEF exacerbation, anemia and possible expedited TAVR. Acute on Chronic systolic heart failure, HFrEF 35%, NICM Severe aortic stenosis, HUBER 0.7cm - lodging facilities attendant Dr. Cruz, last seen 10/12 in decompensated CHF, Zaroxyln 2.5mg daily was started - team 10/[address] Dr[address] Dr. Brenner, CT TAVR 10/05. Planned for TAVR 11/04 if Hgb remained stable >8. - Hgb (09/13) 10.7, (10/04) 8.4. when given update of recommendations, he reported dark stools, was asked to follow up with PCP Dr. Raymundo for suspected AVMs, see above - TTE 02/26/23 EF 65%, mild LVH, mild dilated LA, mild MR, TR, RVSP 64, HUBER 1cm2, peak grad 61mmHg,mn grad 33. - [place]ST[place] 09/13/23 : EF 35%, LVH, LA moderately dilated, severe , max grad 64mmHg, mn 36mmHg, HUBER 0.7cm2. mild MR, TR, RVSP 50-60 - CT TAVR 10/06/23: Extensive atherosclerotic changes of thoracoabdominal aorta and branches. Mod to sev stenosis L renal artery. Severe calcifications of aortic valve. Pulmonary interstitial and alveolar edema with small bilateral pleural effusions. 1.5 cm left thyroid nodule. Prostatomegaly. Severe coronary artery calcifications. - admit BNP: 417 - admit wt: 96.2 kg - admit CXR: Worsening interstitial edema - daily standing wt: 90.2 (92.8, 95.2, 95.9, 95.3, 96.5, 97.1) - Aldactone dc'd outpt due to elevated K, restarted at discharge on 10/25 - s/p 120 mg IVP Lasix bolus on 11/03 (drip initiated at 15 mg/hr) & 11/04, 500 mg IV Diuril 11/05 - great response to diuretic; UO 4L on 11/05, 3L on 11/06, wt down 6.2 kg since admit - Lasix drip at 20 mg /hr, chlorothiazide 500 mg IV x1 dose today yesterday- lasix gtt placed on hold last pm (11/06) - lasix 40 mg IV BID today; monitor creatinine closely as 1.74 today - Structural heart team following, TAVR scheduled for next Saturday 11/11- team aware that he will be inpatient until after procedure - Per Structural Heart team, okay to discharge patient once primary team feels he is stable and HF symptoms are optimized but pt is wishing to stay until procedure. As of today 11/07 he is not optimized - on vericiguat for 1 week at home per pt, possibly as a trial, not on formulary here, follow up with outpt prescriber - home diuretic: bumex 1mg BID (upon dc from [facility] 10/25) - cont: Toprol XL 50 mg daily, Spironolactone 25 mg daily - 2gram sodium diet, 2L fluid restriction, daily standing weights, strict I&O's CAD - 07/01/23 lexiscan stress test negative for ischemia with EF 51% - [facility] 09/13: single vessel mild pRCA dz with collaterals - Medical therapy was recommended - cont Crestor 5 mg nightly, OAC instead of ASA in light of AF, see below SSS s/p single chamber pacemaker 05/2023 Chronic atrial fibrillation MADELYN thrombus dx by echo 09/13/23 - Off anticoagulation since 10/19/23 due to severe GI bleed, see below - (11/03) trial resumption of anticoagulation with heparin gtt - remains on heparin drip, no nosebleeds, hgb stable - Overall rate controlled AF with Vpacing on telemetry. Occasional ectopy Hypertension - well controlled on toprol XL - SBP last 24 hrs: 108-121 - Continue with meds as above History of acute GI bleed and anemia 10/19/23 History of colon cancer s/p resection without recurrence Hx of epistaxis - seen by GI at [facility] felt to be high risk for endoscopy locally. GI suggesting transfer to [facility] (patient ultimately discharged to ) S/P 2 units PRBC. Eliquis stopped with consideration to restart if Hgb stable in the future. Hemoglobin stable during admission. Possible AVMs as source. Considered possible candidate for watchman. (Records requested.) - Hgb 10/25/2023 was 8.9, 08/2022 was 12.6 - today 11/07 H/H 10.2/ - s/p EGD 11/02 normal findings. GI stated too high risk for colonoscopy given frailty/co-morbidities, did not find it necessary. Signed off - (11/01) ENT consulted for hx of epistaxis and nasal congestion > nasal spray 4x daily for 10 days, ayr nasalgel doesn exist here, change 02 to humidified. No acute bleeding seen. Signed off - Von willebrand labs pending ([facility] 11/01); haptoglobin normal - Vitamin B12, folate, and LDH WNL - continue PPI, PO iron supplement MAYLIN, stable Hx Hypervolemic hyponatremia, (10/19/23) - likely elevated Cr ISO aggressive diuresis at prior admission, improved by time of discharged 10/25 to 1.5 - b/l Cr normal ~0.9-1.2 - Na as low as 127 (10/18)> Stable [place] [facility] [place]140 - today Fm=497 - Per patient, was started on finerenone 20mg daily July or August 2023 to help with kidney function - Cr today: 1.74 (.63,1.32, 1.38, 1.30, 1.25,1.27-admit) - Avoid nephrotoxins and hypotension, trend daily RFP Chronic back pain due to Rheumatoid arthritis - on methotrexate at home, but stopped due to MAYLIN - on percocet and lidocaine patch at prior to admit- pt refusing lidocaine patch - cont PRN percocet 1 tab q4h DM2 - on metformin outpatient prior to admission - on humalog SS at [facility] - HgbA1C 10/31: 6.9 % - SSI scale #2 while inpatient - CS 137-238 - diabetic diet, Accu-Cheks AC/HS, hypoglycemic protocol History of hypothyroidism - TSH 8.94 elevated on 10/31, FT4 1.32 wnl - continue levothyroxine 100 mcg on Sundays, 50 mcg every other day - follow up with PCP DVT ppx: heparin gtt DISPO: pending TAVR this admit on 11/11, further diuresis/optimization needed before procedure Code status: Full Code NOBraden: DaughterPaddy Peripheral IV 11/01/23 20 G Left Wrist (Active) Site Assessment Dry;Intact;Clean 11/08/23899 Dressing Status Clean;Dry 11/08/23899 Number of days: 7 Peripheral IV 11/04/23 Left Forearm (Active) Site Assessment Clean;Dry;Intact 11/08/23899 Dressing Status Dry;Clean 11/08/23899 Number of days: 4 Pt seen and examined and plan of care discussed with Dr. Medeiros Code Status: Full Code Tami Beyer APRN-[employer] Associated attestation - Cody Medeiros MD - 11/08/2023 4:53 PM EDT This is a shared visit. I have reviewed the Advanced Practice Provider's encounter note, approve the Advanced Practice Provider's documentation, and provide the following additional information from my personal encounter. Still with significant volume overload. Plan Continue diuresis. Plan TAVR later this week. Will discuss with structural team regarding patient's wishes for discharge; he would very much like to stay here till the TAVR is complete given transportation difficulties. 11/08/2023 Care Coordination I was informed by my dept manager grocery that pt had appealed discharge. Discussed with Cardiology [employer]. No plan for discharge today. Not medically ready. No discharge order had been placed.. Discussed with pt. He appealed as he was told he might be discharged home on Wednesday. Advised that he will not discharge today. The option to appeal is still open once the discharge order is placed. Planned TAVR for 11/11. Message left with Petra [phone] to advise pt not medically ready for discharge. Interval events: No acute events overnight Subjective: Patient seen and assessed this morning, sitting up in chair, NAD. Denies any CP or SOB, remains on RA. Denies any nosebleeds or bleeding, remains volume overloaded. Reports greatly increased urine output yesterday. Updated on plan of care, agreeable to plan. Today in brief: - great response to diuretic yesterday, UO 4L, wt down 5 lb - cont Lasix drip at 20 mg /hr, chlorothiazide 500 mg IV x1 dose today again - remains on RA Objective: Vitals: 11/07/232049 BP: 120/55 Pulse: 68 Resp: 18 Temp: 36.4 C (97.5 F) SpO2: 93% Weight 11/03/2023 0932 11/04/2023 0528 11/05/2023 0633 11/06/2023 0504 11/07/2023 0420 Weight: 96.2 kg (212 lb) 95.3 kg (210 lb 1.6 oz) 95.9 kg (211 lb 6.7 oz) 95.2 kg (209 lb 14.4 oz) 92.8 kg (204 lb 9.4 oz) Intake/Output Summary (Last 24 hours) at 11/07/2023 2158 Last data filed at 11/07/2023 1817 Gross per 24 hour Intake 660 ml Output 3305 ml Net -2645 ml Recent Results (from the past 24 hour(s)) POCT GLUCOSE Collection Time: 11/07/23 7:47 AM Result Value Ref Range POCT Glucose 137 (H) 74 - 99 mg/dL Heparin Assay, UFH Collection Time: 11/07/23 8:09 AM Result Value Ref Range Heparin Unfractionated 0.4 See Comment Below for Therapeutic Ranges IU/mL POCT GLUCOSE Collection Time: 11/07/23 11:23 AM Result Value Ref Range POCT Glucose 215 (H) 74 - 99 mg/dL POCT GLUCOSE Collection Time: 11/07/23 4:46 PM Result Value Ref Range POCT Glucose 145 (H) 74 - 99 mg/dL CBC Collection Time: 11/07/23 6:35 PM Result Value Ref Range WBC 9.0 4.4 - 11.3 x10*3/uL nRBC 0.0 0.0 - 0.0 /100 WBCs RBC 3.28 (L) 4.50 - 5.90 x10*6/uL Hemoglobin 10.2 (L) 13.5 - 17.5 g/dL Hematocrit 32.0 (L) 41.0 - 52.0 % MCV 98 80 - 100 fL MCH 31.1 26.0 - 34.0 pg MCHC 31.9 (L) 32.0 - 36.0 g/dL RDW 16.3 (H) 11.5 - 14.5 % Platelets 338 150 - 450 x10*3/uL Renal Function Panel Collection Time: 11/07/23 6:35 PM Result Value Ref Range Glucose 164 (H) 74 - 99 mg/dL Sodium 138 136 - 145 mmol/L Potassium 4.2 3.5 - 5.3 mmol/L Chloride 92 (L) 98 - 107 mmol/L Bicarbonate 33 (H) 21 - 32 mmol/L Anion Gap 17 10 - 20 mmol/L Urea Nitrogen 36 (H) 6 - 23 mg/dL Creatinine 1.74 (H) 0.50 - 1.30 mg/dL eGFR 39 (L) >60 mL/min/1.73m*2 Calcium 9.8 8.6 - 10.6 mg/dL Phosphorus 4.1 2.5 - 4.9 mg/dL Albumin 3.7 3.4 - 5.0 g/dL Magnesium Collection Time: 11/07/23 6:35 PM Result Value Ref Range Magnesium 2.09 1.60 - 2.40 mg/dL POCT GLUCOSE Collection Time: 11/07/23 9:28 PM Result Value Ref Range POCT Glucose 258 (H) 74 - 99 mg/dL Inpatient Medications: Scheduled medications Medication Dose Route Frequency cholecalciferol 5,000 Units oral Daily docusate sodium 100 mg oral BID finasteride 5 mg oral Daily folic acid 800 mcg oral Daily insulin lispro 0-10 Units subcutaneous TID iron polysaccharides 150 mg oral Daily with evening meal levothyroxine 100 mcg oral Every Wednesday levothyroxine 50 mcg oral Once per day on Wednesday lidocaine 1 patch transdermal Daily magnesium oxide 400 mg oral Daily metoprolol succinate XL 50 mg oral Daily montelukast 10 mg oral Once per day on Wednesday pantoprazole 40 mg oral BID polyethylene glycol 17 g oral Daily rosuvastatin 5 mg oral Nightly sodium chloride 1 spray Each Nostril 4x daily spironolactone 25 mg oral Daily tamsulosin 0.4 mg oral Nightly PRN medications Medication acetaminophen dextrose dextrose dextrose glucagon heparin melatonin oxyCODONE-acetaminophen Continuous Medications Medication Dose Last Rate furosemide 20 mg/hr 20 mg/hr (11/07/23 1050) heparin 0-4,000 Units/hr 1,400 Units/hr (11/07/23 1050) Telemetry 11/07/2023 (personally reviewed): 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 with occ PVCs vs Vs beats Physical exam: General: NAD, sitting up in chair Head/ neck: resolved epistaxis, elevated JVD Cardiac: RRR, regular S1 S2 , 3/6 systolic murmur, no rub, no gallop Pulm: CTA bilaterally, no wheezes, rales or rhonchi. On RA Vascular: Radial 2+ bilaterally GI: Non distended Extremities: 2+ pitting bilateral LE edema to knees, improving Neuro: no focal neuro deficits Psych: appropriate mood and behavior, pleasant Skin: warm and dry Assessment/Plan Shahid Sanchez is a 83 y.o. male with a medical history of HTN, DM, HLD, A-fib, sick sinus syndrome s/p pacemaker, RA, HFrEF, severe aortic stenosis, CAD, GUNNER (not using CPAP), chronic respiratory failure from CHF on 2.5LO2, was directly admitted by structural heart team/ Dr. Brenner for HFrEF exacerbation, anemia and possible expedited TAVR. Acute on Chronic systolic heart failure, HFrEF 35%, NICM Severe aortic stenosis, UHBER 0.7cm - lodging facilities attendant Dr. Cruz, last seen 10/12 in decompensated CHF, Zaroxyln 2.5mg daily was started - SH team 10/05 Dr. Reese and Dr. Brenner, CT TAVR 10/05. Planned for TAVR 11/04 if Hgb remained stable >8. - Hgb (09/13) 10.7, (10/04) 8.4. when given update of recommendations, he reported dark stools, was asked to follow up with PCP Dr. Raymundo for suspected AVMs, see above - TTE 02/26/23 EF 65%, mild LVH, mild dilated LA, mild MR, TR, RVSP 64, HUBER 1cm2, peak grad 61mmHg,mn grad 33. - [place] 09/13/23 : EF 35%, LVH, LA moderately dilated, severe , max grad 64mmHg, mn 36mmHg, HUBER 0.7cm2. mild MR, TR, RVSP 50-60 - CT TAVR 10/06/23: Extensive atherosclerotic changes of thoracoabdominal aorta and branches. Mod to sev stenosis L renal artery. Severe calcifications of aortic valve. Pulmonary interstitial and alveolar edema with small bilateral pleural effusions. 1.5 cm left thyroid nodule. Prostatomegaly. Severe coronary artery calcifications. - admit BNP: 417 - admit wt: 96.2 kg - admit CXR: Worsening interstitial edema - daily standing wt: 92.8 kg (95.2, 95.9, 95.3, 96.5, 97.1) - Aldactone dc'd outpt due to elevated K, restarted at discharge on 10/25 - s/p 120 mg IVP Lasix bolus on 11/03 (drip initiated at 15 mg/hr) & 11/04, 500 mg IV Diuril 11/05 - great response to diuretic yesterday, UO 4L, wt down 5 lb - cont Lasix drip at 20 mg /hr, chlorothiazide 500 mg IV x1 dose today again - Structural heart team following, TAVR scheduled for next Saturday 11/11, ok to discharge once medically optimized - on vericiguat for 1 week at home per pt, possibly as a trial, not on formulary here, follow up with outpt prescriber - home diuretic: bumex 1mg BID (upon dc from [facility] 10/25) - cont: Toprol XL 50 mg daily, Spironolactone 25 mg daily - 2gram sodium diet, 2L fluid restriction, daily standing weights, strict I&O's CAD - 07/01/23 lexiscan stress test negative for ischemia with EF 51% - [facility] 09/13: single vessel mild pRCA dz with collaterals - Medical therapy was recommended - cont Crestor 5 mg nightly, OAC instead of ASA in light of AF, see below SSS s/p single chamber pacemaker 05/2023 Chronic atrial fibrillation MADELYN thrombus dx by echo 09/13/23 - Off anticoagulation since 10/19/23 due to severe GI bleed, see below - (11/03) trial resumption of anticoagulation with heparin gtt - remains on heparin drip, no nosebleeds, hgb stable - Overall rate controlled AF with Vpacing on telemetry. Occasional ectopy Hypertension - well controlled on toprol XL - SBP last 24 hrs: 114-125 - Continue with meds as above History of acute GI bleed and anemia 10/19/23 History of colon cancer s/p resection without recurrence Hx of epistaxis - seen by GI at [facility] felt to be high risk for endoscopy locally. GI suggesting transfer to [facility] (patient ultimately discharged to ) S/P 2 units PRBC. Eliquis stopped with consideration to restart if Hgb stable in the future. Hemoglobin stable during admission. Possible AVMs as source. Considered possible candidate for watchman. (Records requested.) - Hgb 10/25/2023 was 8.9, 08/2022 was 12.6 - s/p EGD 11/02 normal findings. GI stated too high risk for colonoscopy given frailty/co-morbidities, did not find it necessary. Signed off - (11/01) ENT consulted for hx of epistaxis and nasal congestion > nasal spray 4x daily for 10 days, ayr nasalgel doesn exist here, change 02 to humidified. No acute bleeding seen. Signed off - Von willebrand labs and Haptoglobin pending - Hgb stable/improved, no evidence of gross bleeding - Vitamin B12, folate, and LDH WNL - continue PPI, PO iron supplement MAYLIN, stable Hx Hypervolemic hyponatremia, (10/19/23) - likely elevated Cr ISO aggressive diuresis at prior admission, improved by time of discharged 10/25 to 1.5 - b/l Cr normal ~0.9-1.2 - Na as low as 127 (10/18)> St[place] [facility] [place] - Per patient, was started on finerenone 20mg daily July or August 2023 to help with kidney function - Cr today: 1.63 (1.32, 1.38, 1.30, 1.25,1.27-admit) - Avoid nephrotoxins and hypotension, trend daily RFP Chronic back pain due to Rheumatoid arthritis - on methotrexate at home, but stopped due to MAYLIN - on percocet and lidocaine patch at [facility] prior to admit - cont PRN percocet 1 tab q4h DM2 - on metformin outpatient prior to admission - on humalog SS at [facility] - HgbA1C 10/31: 6.9 % - SSI scale #2 while inpatient - diabetic diet, Accu-Cheks AC/HS, hypoglycemic protocol History of hypothyroidism - TSH 8.94 elevated, FT4 1.32 wnl - continue levothyroxine 100 mcg on Sundays, 50 mcg every other day - follow up with PCP DVT ppx: heparin gtt DISPO: pending TAVR this admit vs outpt on 11/11, further diuresis/optimization Code status: Full Code NOK: DaughterPaddy Patient seen and discussed with Dr. Frank Mccallum, [employer] Interval events: No acute events overnight Subjective: Patient seen and assessed this morning, sitting up in chair, NAD. Denies any CP or SOB, remains on RA. Denies any nosebleeds or bleeding, remains volume overloaded. Reports increased urine output yesterday. Updated on plan of care, agreeable to plan. Today in brief: - increase Lasix drip to 20 mg /hr, chlorothiazide 500 mg IV x1 dose today - on RA this morning Objective: Vitals: 11/06/23 1548 BP: 123/56 Pulse: 71 Resp: 20 Temp: 36.4 C (97.5 F) SpO2: 96% Weight 11/03/2023 0542 11/03/2023 0932 11/04/2023 0528 11/05/2023 0633 11/06/2023 0504 Weight: 96.5 kg (212 lb 11.9 oz) 96.2 kg (212 lb) 95.3 kg (210 lb 1.6 oz) 95.9 kg (211 lb 6.7 oz) 95.2 kg (209 lb 14.4 oz) Intake/Output Summary (Last 24 hours) at 11/06/2023 1601 Last data filed at 11/06/2023 1400 Gross per 24 hour Intake 944.68 ml Output 1070 ml Net -125.32 ml Recent Results (from the past 24 hour(s)) CBC Collection Time: 11/05/23 4:09 PM Result Value Ref Range WBC 8.1 4.4 - 11.3 x10*3/uL nRBC 0.0 0.0 - 0.0 /100 WBCs RBC 2.96 (L) 4.50 - 5.90 x10*6/uL Hemoglobin 9.1 (L) 13.5 - 17.5 g/dL Hematocrit 29.0 (L) 41.0 - 52.0 % MCV 98 80 - 100 fL MCH 30.7 26.0 - 34.0 pg MCHC 31.4 (L) 32.0 - 36.0 g/dL RDW 15.9 (H) 11.5 - 14.5 % Platelets 309 150 - 450 x10*3/uL Renal Function Panel Collection Time: 11/05/23 4:09 PM Result Value Ref Range Glucose 277 (H) 74 - 99 mg/dL Sodium 137 136 - 145 mmol/L Potassium 3.6 3.5 - 5.3 mmol/L Chloride 93 (L) 98 - 107 mmol/L Bicarbonate 33 (H) 21 - 32 mmol/L Anion Gap 15 10 - 20 mmol/L Urea Nitrogen 31 (H) 6 - 23 mg/dL Creatinine 1.32 (H) 0.50 - 1.30 mg/dL eGFR 54 (L) >60 mL/min/1.73m*2 Calcium 8.5 (L) 8.6 - 10.6 mg/dL Phosphorus 3.6 2.5 - 4.9 mg/dL Albumin 3.2 (L) 3.4 - 5.0 g/dL Magnesium Collection Time: 11/05/23 4:09 PM Result Value Ref Range Magnesium 1.84 1.60 - 2.40 mg/dL POCT GLUCOSE Collection Time: 11/05/23 4:25 PM Result Value Ref Range POCT Glucose 150 (H) 74 - 99 mg/dL POCT GLUCOSE Collection Time: 11/05/23 8:28 PM Result Value Ref Range POCT Glucose 188 (H) 74 - 99 mg/dL CBC Collection Time: 11/06/23 7:51 AM Result Value Ref Range WBC 8.5 4.4 - 11.3 x10*3/uL nRBC 0.0 0.0 - 0.0 /100 WBCs RBC 3.02 (L) 4.50 - 5.90 x10*6/uL Hemoglobin 9.6 (L) 13.5 - 17.5 g/dL Hematocrit 29.4 (L) 41.0 - 52.0 % MCV 97 80 - 100 fL MCH 31.8 26.0 - 34.0 pg MCHC 32.7 32.0 - 36.0 g/dL RDW 16.1 (H) 11.5 - 14.5 % Platelets 330 150 - 450 x10*3/uL Heparin Assay, UFH Collection Time: 11/06/23 7:51 AM Result Value Ref Range Heparin Unfractionated 0.5 See Comment Below for Therapeutic Ranges IU/mL POCT GLUCOSE Collection Time: 11/06/23 7:57 AM Result Value Ref Range POCT Glucose 135 (H) 74 - 99 mg/dL POCT GLUCOSE Collection Time: 11/06/23 11:25 AM Result Value Ref Range POCT Glucose 159 (H) 74 - 99 mg/dL POCT GLUCOSE Collection Time: 11/06/23 3:47 PM Result Value Ref Range POCT Glucose 157 (H) 74 - 99 mg/dL Inpatient Medications: Scheduled medications Medication Dose Route Frequency cholecalciferol 5,000 Units oral Daily docusate sodium 100 mg oral BID finasteride 5 mg oral Daily folic acid 800 mcg oral Daily insulin lispro 0-10 Units subcutaneous TID iron polysaccharides 150 mg oral Daily with evening meal [START ON 11/07/2023] levothyroxine 100 mcg oral Every Wednesday levothyroxine 50 mcg oral Once per day on Wednesday lidocaine 1 patch transdermal Daily magnesium oxide 400 mg oral Daily metoprolol succinate XL 50 mg oral Daily montelukast 10 mg oral Once per day on Wednesday pantoprazole 40 mg oral BID polyethylene glycol 17 g oral Daily rosuvastatin 5 mg oral Nightly sodium chloride 1 spray Each Nostril 4x daily spironolactone 25 mg oral Daily tamsulosin 0.4 mg oral Nightly vericiguat 10 mg oral Daily PRN medications Medication acetaminophen dextrose dextrose dextrose glucagon heparin melatonin oxyCODONE-acetaminophen Continuous Medications Medication Dose Last Rate furosemide 20 mg/hr 20 mg/hr (11/06/23 1323) heparin 0-4,000 Units/hr 1,400 Units/hr (11/06/23 1555) Telemetry 11/06/2023 (personally reviewed): 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 with occ PVCs vs Vs beats Physical exam: General: NAD, sitting up in chair Head/ neck: resolved epistaxis, elevated JVD Cardiac: RRR, regular S1 S2 , 3/6 systolic murmur, no rub, no gallop Pulm: CTA bilaterally, no wheezes, rales or rhonchi. On RA Vascular: Radial 2+ bilaterally GI: Non distended Extremities: 2-3+ pitting bilateral LE edema to knees Neuro: no focal neuro deficits Psych: appropriate mood and behavior, pleasant Skin: warm and dry Assessment/Plan Shahid Sanchez is a 83 y.o. male with a medical history of HTN, DM, HLD, A-fib, sick sinus syndrome s/p pacemaker, RA, HFrEF, severe aortic stenosis, CAD, GUNNER (not using CPAP), chronic respiratory failure from CHF on 2.5LO2, was directly admitted by structural heart team/ Dr. Brenner for HFrEF exacerbation, anemia and possible expedited TAVR. Acute on Chronic systolic heart failure, HFrEF 35%, NICM Severe aortic stenosis, HUBER 0.7cm - lodging facilities attendant Dr. Cruz, last seen 10/12 in decompensated CHF, Zaroxyln 2.5mg daily was started - team 10/[address] Dr[address] Dr. Brenner, CT TAVR 10/05. Planned for TAVR 11/04 if Hgb remained stable >8. - Hgb (09/13) 10.7, (10/04) 8.4. when given update of recommendations, he reported dark stools, was asked to follow up with PCP Dr. Raymundo for suspected AVMs, see above - TTE 02/26/23 EF 65%, mild LVH, mild dilated LA, mild MR, TR, RVSP 64, HUBER 1cm2, peak grad 61mmHg,mn grad 33. - SEBASTIÁN 09/13/23 : EF 35%, LVH, LA moderately dilated, severe , max grad 64mmHg, mn 36mmHg, HUBER 0.7cm2. mild MR, TR, RVSP 50-60 - CT TAVR 10/06/23: Extensive atherosclerotic changes of thoracoabdominal aorta and branches. Mod to sev stenosis L renal artery. Severe calcifications of aortic valve. Pulmonary interstitial and alveolar edema with small bilateral pleural effusions. 1.5 cm left thyroid nodule. Prostatomegaly. Severe coronary artery calcifications. - admit BNP: 417 - admit wt: 96.2 kg - admit CXR: Worsening interstitial edema - daily standing wt: 95.2 kg (95.9, 95.3, 96.5, 97.1) - Aldactone dc'd outpt due to elevated K, restarted at discharge on 10/25 - s/p 120 mg IVP Lasix bolus on 11/03 (drip initiated at 15 mg/hr) & 11/04 - remains hypervolemic, slowly improving - increase Lasix drip to 20 mg /hr, chlorothiazide 500 mg IV x1 dose, on RA this morning - Structural heart team following, TAVR scheduled for next Saturday 11/11, ok to discharge once medically optimized - on vericiguat for 1 week at home per pt, possibly as a trial, not on formulary here, follow up with outpt prescriber - home diuretic: bumex 1mg BID (upon dc from [facility] 10/25) - cont: Toprol XL 50 mg daily, Spironolactone 25 mg daily - 2gram sodium diet, 2L fluid restriction, daily standing weights, strict I&O's CAD - 07/01/23 lexiscan stress test negative for ischemia with EF 51% - [facility] 09/13: single vessel mild pRCA dz with collaterals - Medical therapy was recommended - cont Crestor 5 mg nightly, OAC instead of ASA in light of AF, see below SSS s/p single chamber pacemaker 05/2023 Chronic atrial fibrillation MADELYN thrombus dx by echo 09/13/23 - Off anticoagulation since 10/19/23 due to severe GI bleed, see below - (11/03) trial resumption of anticoagulation with heparin gtt - remains on heparin drip, no nosebleeds, hgb stable - Overall rate controlled AF with Vpacing on telemetry. Occasional ectopy Hypertension - well controlled on toprol XL - SBP last 24 hrs: 107-125 - Renal ultrasound/Duplex - Continue with meds as above History of acute GI bleed and anemia 10/19/23 History of colon cancer s/p resection without recurrence Hx of epistaxis - seen by GI at [facility] felt to be high risk for endoscopy locally. GI suggesting transfer to [facility] (patient ultimately discharged to ) S/P 2 units PRBC. Eliquis stopped with consideration to restart if Hgb stable in the future. Hemoglobin stable during admission. Possible AVMs as source. Considered possible candidate for watchman. (Records requested.) - Hgb 10/25/2023 was 8.9, 08/2022 was 12.6 - s/p EGD 11/02 normal findings. GI stated too high risk for colonoscopy given frailty/co-morbidities, did not find it necessary. Signed off - (11/01) ENT consulted for hx of epistaxis and nasal congestion > nasal spray 4x daily for 10 days, ayr nasalgel doesn exist here, change 02 to humidified. No acute bleeding seen. Signed off - Von willebrand labs and Haptoglobin pending - Hgb stable ~9, no evidence of gross bleeding - Vitamin B12, folate, and LDH WNL - continue PPI, PO iron supplement MAYLIN, slowly improving Hx Hypervolemic hyponatremia, (10/19/23) - likely elevated Cr ISO aggressive diuresis at prior admission, improved by time of discharged 10/25 to 1.5 - b/l Cr normal ~0.9-1.2 - Na as low as 127 (10/18)> St[place] [facility] [place]140 - Per patient, was started on finerenone 20mg daily July or August 2023 to help with kidney function - Cr today: 1.32 (1.38, 1.30, 1.25,1.27-admit) - Avoid nephrotoxins and hypotension, trend daily RFP Chronic back pain due to Rheumatoid arthritis - on methotrexate at home, but stopped due to MAYLIN - on percocet and lidocaine patch at prior to admit - cont PRN percocet 1 tab q4h DM2 - on metformin outpatient prior to admission - on humalog SS at [facility] - HgbA1C 10/31: 6.9 % - SSI scale #2 while inpatient - diabetic diet, Accu-Cheks AC/HS, hypoglycemic protocol History of hypothyroidism - TSH 8.94 elevated, FT4 1.32 wnl - continue levothyroxine 100 mcg on Sundays, 50 mcg every other day - follow up with PCP DVT ppx: heparin gtt DISPO: pending TAVR this admit vs outpt on 11/11, further diuresis/optimization Code status: Full Code NOK: DaughterPaddy Patient seen and discussed with Dr. Frank Mccallum, 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 Interval events: No acute events overnight Subjective: No SOB or CP No nosebleeds Remains volume overloaded Today in brief: - Re-engage structural regarding TAVR in light of stable anemia without evidence of active source of GIB per GI - Structural has plan for TAVR next Wednesday - Trial resumption of anticoagulation with heparin gtt - tolerating hgb stable and no new nosebleeds - Haptoglobin and VWF labs pending > call lab - Check to see if [facility] EGD/c-scope records sent - Repeat Lasix IV 120mg this morning and continue 15mg/hr lasix gtt - Replete Mg IV Objective: Vitals: 11/05/23 1102 BP: 122/57 Pulse: 69 Resp: Temp: 36.3 C (97.3 F) SpO2: 100% Weight 11/02/2023 0500 11/03/2023 0542 11/03/2023 0932 11/04/2023 0528 11/05/2023 0633 Weight: 97.1 kg (214 lb) 96.5 kg (212 lb 11.9 oz) 96.2 kg (212 lb) 95.3 kg (210 lb 1.6 oz) 95.9 kg (211 lb 6.7 oz) Intake/Output Summary (Last 24 hours) at 11/05/2023 1228 Last data filed at 11/05/2023 1200 Gross per 24 hour Intake 717.25 ml Output 4275 ml Net -3557.75 ml Recent Results (from the past 24 hour(s)) Heparin Assay, UFH Collection Time: 11/04/23 3:36 PM Result Value Ref Range Heparin Unfractionated 0.3 See Comment Below for Therapeutic Ranges IU/mL POCT GLUCOSE Collection Time: 11/04/23 4:19 PM Result Value Ref Range POCT Glucose 186 (H) 74 - 99 mg/dL CBC Collection Time: 11/04/23 7:42 PM Result Value Ref Range WBC 8.0 4.4 - 11.3 x10*3/uL nRBC 0.0 0.0 - 0.0 /100 WBCs RBC 2.94 (L) 4.50 - 5.90 x10*6/uL Hemoglobin 9.2 (L) 13.5 - 17.5 g/dL Hematocrit 29.1 (L) 41.0 - 52.0 % MCV 99 80 - 100 fL MCH 31.3 26.0 - 34.0 pg MCHC 31.6 (L) 32.0 - 36.0 g/dL RDW 15.9 (H) 11.5 - 14.5 % Platelets 348 150 - 450 x10*3/uL Renal Function Panel Collection Time: 11/04/23 7:42 PM Result Value Ref Range Glucose 176 (H) 74 - 99 mg/dL Sodium 140 136 - 145 mmol/L Potassium 3.6 3.5 - 5.3 mmol/L Chloride 98 98 - 107 mmol/L Bicarbonate 31 21 - 32 mmol/L Anion Gap 15 10 - 20 mmol/L Urea Nitrogen 32 (H) 6 - 23 mg/dL Creatinine 1.38 (H) 0.50 - 1.30 mg/dL eGFR 51 (L) >60 mL/min/1.73m*2 Calcium 8.8 8.6 - 10.6 mg/dL Phosphorus 3.5 2.5 - 4.9 mg/dL Albumin 3.4 3.4 - 5.0 g/dL Magnesium Collection Time: 11/04/23 7:42 PM Result Value Ref Range Magnesium 1.57 (L) 1.60 - 2.40 mg/dL Heparin Assay, UFH Collection Time: 11/04/23 7:42 PM Result Value Ref Range Heparin Unfractionated 0.1 See Comment Below for Therapeutic Ranges IU/mL POCT GLUCOSE Collection Time: 11/04/23 7:59 PM Result Value Ref Range POCT Glucose 171 (H) 74 - 99 mg/dL Heparin Assay, UFH Collection Time: 11/05/23 2:30 AM Result Value Ref Range Heparin Unfractionated 0.2 See Comment Below for Therapeutic Ranges IU/mL POCT GLUCOSE Collection Time: 11/05/23 7:39 AM Result Value Ref Range POCT Glucose 111 (H) 74 - 99 mg/dL Heparin Assay, UFH Collection Time: 11/05/23 8:34 AM Result Value Ref Range Heparin Unfractionated 0.5 See Comment Below for Therapeutic Ranges IU/mL POCT GLUCOSE Collection Time: 11/05/23 11:36 AM Result Value Ref Range POCT Glucose 252 (H) 74 - 99 mg/dL Inpatient Medications: Scheduled medications Medication Dose Route Frequency cholecalciferol 5,000 Units oral Daily docusate sodium 100 mg oral BID finasteride 5 mg oral Daily folic acid 800 mcg oral Daily insulin lispro 0-5 Units subcutaneous TID iron polysaccharides 150 mg oral Daily with evening meal [START ON 11/07/2023] levothyroxine 100 mcg oral Every Wednesday levothyroxine 50 mcg oral Once per day on Wednesday lidocaine 1 patch transdermal Daily magnesium oxide 400 mg oral Daily metoprolol succinate XL 50 mg oral Daily montelukast 10 mg oral Once per day on Wednesday pantoprazole 40 mg oral BID polyethylene glycol 17 g oral Daily rosuvastatin 5 mg oral Nightly sodium chloride 1 spray Each Nostril 4x daily spironolactone 25 mg oral Daily tamsulosin 0.4 mg oral Nightly vericiguat 10 mg oral Daily PRN medications Medication acetaminophen dextrose dextrose glucagon glucagon heparin melatonin oxyCODONE-acetaminophen Continuous Medications Medication Dose Last Rate furosemide 15 mg/hr 15 mg/hr (11/05/23 1001) heparin 0-4,000 Units/hr 1,400 Units/hr (11/05/23 1001) Telemetry 11/05/2023 (personally reviewed): 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 with occ PVCs vs Vs beats Physical exam: General: NAD, standing Head/ neck: mild epistaxis Cardiac: RRR, regular S1 S2 , 3/6 systolic murmur, no rub, no gallop Pulm: CTA bilaterally, no wheezes, rales or rhonchi. Vascular: Radial 2+ bilaterally GI: Non distended Extremities: 2+ bilateral LE edema Neuro: no focal neuro deficits Psych: appropriate mood and behavior Skin: warm and dry Assessment/Plan Shahid Sanchez is a 83 y.o. male with a medical history of HTN, DM, HLD, A-fib, sick sinus syndrome s/p pacemaker, RA, HFrEF, severe aortic stenosis, CAD, GUNNER (not using CPAP), chronic respiratory failure from CHF on 2.5LO2, was directly admitted by structural heart team/ Dr. Brenner for HFrEF exacerbation, anemia and possible expedited TAVR. History of acute GI bleed and anemia 10/19/23 History of colon cancer s/p resection without recurrence Hx of epistaxis - seen by GI at [facility] felt to be high risk for endoscopy locally. GI suggesting transfer to [facility] (patient ultimately discharged to SNF) S/P 2 units PRBC. Eliquis stopped with consideration to restart if Hgb stable in the future. Hemoglobin stable during admission. Possible AVMs as source. Considered possible candidate for watchman. (Records requested.) - Hgb 10/24 8.9. 08/2022 12.6 - s/p EGD 11/02 with normal findings. GI stated too high risk for colonoscopy given frailty/comorbiditiesn and did not find it necessary at this time. Signed off - ENT consulted: encouraged humdified oxygen and nasal sprays. No acute bleeding seen. - Von willebrand labs pending - Haptoglobin pending. - Hgb stable here ~9s, no evidence of gross bleeding. Recheck fecal occult stool. 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 Cruz, last seen 10/12 in decompensated CHF. Zaroxyln 2.5mg daily was started - SH team 10/[address] Dr. Brenner, CT TAVR 10/05. Planned for TAVR 11/04 if Hgb remained stable >8. Hgb 09/13 10.7 and 10/04 8.4. when patient was given update of meeting recommendations, he reported dark stools. He was asked to follow up with PCP Dr. Raymundo. Suspected AVMs - TTE 02/26/23 EF 65%, mild LVH, mild dilated LA, mild MR, TR, RVSP 64, HUBER 1cm2, peak grad 61mmHg,mn grad 33. - [facility]BASTI[facility]N 09/13/23 : EF 35%, LVH, LA moderately dilated, severe , max grad 64mmHg, mn 36mmHg, HUBER 0.7cm2. mild MR, TR, RVSP 50-60 - CT TAVR 10/06/23 Extensive atherosclerotic changes of thoracoabdominal aorta and branches. Mod to sev stenosis L renal artery. Severe calcifications of aortic valve. Pulmonary interstitial and alveolar edema with small bilateral pleural effusions. 1.5 cm left thyroid nodule. Prostatomegaly. Severe coronary artery calcifications. - Aldactone dc outpatient due to elevated K, but restarted at discharge 10/25 - on vericiguat at home, no on formulary here. Can hold as inpt unless pt brings in from home - Discharged at [facility] on bumex 1mg BID - Hypervolemic. Volume slowly improving - Holding home bumex 1mg BID - s/p IV lasix lasix IV - 11/02 added spironolactone 25mg daily - Renal fxn stable. Continue with IV lasix drip at 15mg/hr and repeat bolus of 120mg bolus. - Wean O2 as tolerated - 11/04 Replete Magnesium for level 1.57 - Structural heart team following timing of TAVR planned for next Wednesday CAD single vessel mild pRCA dz with collaterals [facility] 09/13 - Medical therapy was recommended: crestor. OAC instead of aspirin in light of AF, see below. - 07/01/23 lexiscan stress test negative for ischemia with EF 51% SSS s/p single chamber pacemaker 05/2023 Chronic atrial fibrillation MADELYN thrombus dx by echo 09/13/23 - Off anticoagulation 10/19/23 due to severe GI bleed. O - 11/03 Trial resumption of anticoagulation with heparin gtt - 11/04 currently on heparin drip nosebleeds and hgb stable - Overall rate controlled AF with Vpacing on telemetry. Occasional ectopy Hypertension - well controlled on toprol XL Acute kidney disease creatinine slowly improving. Hx Hypervolemic hyponatremia 10/19/23 - Cr elevated in setting of aggressive diuresis at prior admission. Improved by time of discharged 10/25 to 1.5 - Cr 1.21 (09/08) - Na 128 (09/08). Na as low as 127 (10/18)> Stable while here at [facility] [place] 130-140 - Per patient, was started on finerenone 20mg daily July or August 2023 to help with kidney function - Cr today 1.38, 1.30 stable (1.25,1.27) Chronic back pain due to Rheumatoid arthritis - on methotrexate at home, but stopped due to MAYLIN - on percocet and lidocaine patch at prior to admit. Currently has percocet PRN DM2 - on metformin outpatient prior to admission - on humalog SS at [facility] - HgbA1C 10/31: 6.9 % - SS#1 while inpatient - Diabetic carb control diet History of hypothyroidism - TSH high but T4 WNL. - continue levoxyl DVT ppx: heparin gtt DISPO: pending TAVR eval, diuresis. Code status: Full Code Patient seen and discussed with Dr. Guerita Molina. Imani Garcia APRN-GRE[employer] MAN Associated attestation - Guerita Molina MD PhD - 11/05/2023 1:45 PM EDT This is a shared visit. I have reviewed the Advanced Practice Provider's encounter note, approve the Advanced Practice Provider's documentation, and provide the following additional information from my personal encounter. Shahid Sanchez is feeling fairly well today. He has not had any further epistaxis with humidified oxygen. Clinically, he remains hypervolemic and warm. Clear lung thomson, heart sounds 1, 2. 2-3+ pitting pedal edema to the knees. Diuresis will be continued with IV furosemide. Hb stable and anemia evaluation negative thus far. vWF pending Planned for valve intervention 11/12/2023 Guerita Molina MD PhD Interval events: No acute events overnight Subjective: No SOB or CP Today in brief: - Re-engage structural regarding TAVR in light of stable anemia without evidence of active source of GIB per GI - Trial resumption of anticoagulation with heparin gtt - Haptoglobin and VWF labs pending - Recheck fecal occult stool - Check to see if [facility] EGD/c-scope records sent - Escalate diuresis. Lasix IV 120mg this morning plus 15mg/hr lasix gtt - Replete Mg 400mg PO x1 Objective: Vitals: 11/04/23 0528 BP: 129/58 Pulse: 70 Resp: Temp: 36.4 C (97.5 F) SpO2: 93% Weight 11/01/2023 1804 11/02/2023 0500 11/03/2023 0542 11/03/2023 0932 11/04/2023 0528 Weight: 96.1 kg (211 lb 12.8 oz) 97.1 kg (214 lb) 96.5 kg (212 lb 11.9 oz) 96.2 kg (212 lb) 95.3 kg (210 lb 1.6 oz) Intake/Output Summary (Last 24 hours) at 11/04/2023 0726 Last data filed at 11/03/2023 2200 Gross per 24 hour Intake 540 ml Output 1750 ml Net -1210 ml Recent Results (from the past 24 hour(s)) POCT GLUCOSE Collection Time: 11/03/23 7:47 AM Result Value Ref Range POCT Glucose 130 (H) 74 - 99 mg/dL POCT GLUCOSE Collection Time: 11/03/23 12:03 PM Result Value Ref Range POCT Glucose 127 (H) 74 - 99 mg/dL POCT GLUCOSE Collection Time: 11/03/23 3:40 PM Result Value Ref Range POCT Glucose 179 (H) 74 - 99 mg/dL CBC Collection Time: 11/03/23 6:39 PM Result Value Ref Range WBC 6.0 4.4 - 11.3 x10*3/uL nRBC 0.0 0.0 - 0.0 /100 WBCs RBC 2.96 (L) 4.50 - 5.90 x10*6/uL Hemoglobin 9.3 (L) 13.5 - 17.5 g/dL Hematocrit 29.2 (L) 41.0 - 52.0 % MCV 99 80 - 100 fL MCH 31.4 26.0 - 34.0 pg MCHC 31.8 (L) 32.0 - 36.0 g/dL RDW 15.9 (H) 11.5 - 14.5 % Platelets 339 150 - 450 x10*3/uL Renal Function Panel Collection Time: 11/03/23 6:39 PM Result Value Ref Range Glucose 189 (H) 74 - 99 mg/dL Sodium 141 136 - 145 mmol/L Potassium 4.0 3.5 - 5.3 mmol/L Chloride 100 98 - 107 mmol/L Bicarbonate 33 (H) 21 - 32 mmol/L Anion Gap 12 10 - 20 mmol/L Urea Nitrogen 32 (H) 6 - 23 mg/dL Creatinine 1.30 0.50 - 1.30 mg/dL eGFR 55 (L) >60 mL/min/1.73m*2 Calcium 8.6 8.6 - 10.6 mg/dL Phosphorus 3.3 2.5 - 4.9 mg/dL Albumin 3.2 (L) 3.4 - 5.0 g/dL Magnesium Collection Time: 11/03/23 6:39 PM Result Value Ref Range Magnesium 1.71 1.60 - 2.40 mg/dL POCT GLUCOSE Collection Time: 11/03/23 9:11 PM Result Value Ref Range POCT Glucose 187 (H) 74 - 99 mg/dL Inpatient Medications: Scheduled medications Medication Dose Route Frequency [Held by provider] bumetanide 1 mg oral BID cholecalciferol 5,000 Units oral Daily docusate sodium 100 mg oral BID finasteride 5 mg oral Daily folic acid 800 mcg oral Daily furosemide 80 mg intravenous BID AC insulin lispro 0-5 Units subcutaneous TID iron polysaccharides 150 mg oral Daily with evening meal [START ON 11/07/2023] levothyroxine 100 mcg oral Every Wednesday levothyroxine 50 mcg oral Once per day on Wednesday lidocaine 1 patch transdermal Daily metoprolol succinate XL 50 mg oral Daily montelukast 10 mg oral Once per day on Wednesday pantoprazole 40 mg oral BID rosuvastatin 5 mg oral Nightly sodium chloride 1 spray Each Nostril 4x daily spironolactone 25 mg oral Daily tamsulosin 0.4 mg oral Nightly vericiguat 10 mg oral Daily PRN medications Medication acetaminophen dextrose dextrose glucagon glucagon melatonin oxyCODONE-acetaminophen Continuous Medications Medication Dose Last Rate Telemetry 11/04/2023 (personally reviewed): 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 with occ PVCs vs Vs beats Physical exam: General: NAD, standing Head/ neck: mild epistaxis Cardiac: RRR, regular S1 S2 , 3/6 systolic murmur, no rub, no gallop Pulm: CTA bilaterally, no wheezes, rales or rhonchi. Vascular: Radial 2+ bilaterally GI: Non distended Extremities: 2+ bilateral LE edema Neuro: no focal neuro deficits Psych: appropriate mood and behavior Skin: warm and dry Assessment/Plan Shahid Sanchez is a 83 y.o. male with a medical history of HTN, DM, HLD, A-fib, sick sinus syndrome s/p pacemaker, RA, HFrEF, severe aortic stenosis, CAD, GUNNER (not using CPAP), chronic respiratory failure from CHF on 2.5LO2, was directly admitted by structural heart team/ Dr. Brenner for HFrEF exacerbation, anemia and possible expedited TAVR. History of acute GI bleed and anemia 10/19/23 History of colon cancer s/p resection without recurrence Hx of epistaxis - seen by GI at [facility] felt to be high risk for endoscopy locally. GI suggesting transfer to [facility] (patient ultimately discharged to ) S/P 2 units PRBC. Eliquis stopped with consideration to restart if Hgb stable in the future. Hemoglobin stable during admission. Possible AVMs as source. Considered possible candidate for watchman. (Records requested.) - Hgb 10/24 8.9. 08/2022 12.6 - s/p EGD 11/02 with normal findings. GI stated too high risk for colonoscopy given frailty/comorbiditiesn and did not find it necessary at this time. Signed off - ENT consulted: encouraged humdified oxygen and nasal sprays. No acute bleeding seen. - Von willebrand labs pending - Haptoglobin pending. - Hgb stable here ~9s, no evidence of gross bleeding. Recheck fecal occult stool. 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 Cruz, last seen 10/12 in decompensated CHF. Zaroxyln 2.5mg daily was started - team 10/[address] Dr[address]. Brenner, CT TAVR 10/05. Planned for TAVR 11/04 if Hgb remained stable >8. Hgb 09/13 10.7 and 10/04 8.4. when patient was given update of meeting recommendations, he reported dark stools. He was asked to follow up with PCP Dr. Raymundo. Suspected AVMs - TTE 02/26/23 EF 65%, mild LVH, mild dilated LA, mild MR, TR, RVSP 64, HUBER 1cm2, peak grad 61mmHg,mn grad 33. - [place] 09/13/23 : EF 35%, LVH, LA moderately dilated, severe , max grad 64mmHg, mn 36mmHg, HUBER 0.7cm2. mild MR, TR, RVSP 50-60 - CT TAVR 10/06/23 Extensive atherosclerotic changes of thoracoabdominal aorta and branches. Mod to sev stenosis L renal artery. Severe calcifications of aortic valve. Pulmonary interstitial and alveolar edema with small bilateral pleural effusions. 1.5 cm left thyroid nodule. Prostatomegaly. Severe coronary artery calcifications. - Aldactone dc outpatient due to elevated K, but restarted at discharge 10/25 - on vericiguat at home, no on formulary here. Can hold as inpt unless pt brings in from home - Discharged at [facility] on bumex 1mg BID - Hypervolemic. Volume slowly improving - Holding home bumex 1mg BID - S/p lasix 40mg IV x1 11/01. Repleted KCl - s/p IV lasix 80mg BID 11/02. Added spironolactone 25mg daily - Renal fxn stable. Escalate IV lasix to 120 IV this morning plus 15mg /hr lasix gtt. - Wean O2 as tolerated - Replete Magnesium x1 - Structural heart team following. - Discuss timing of TAVR pending stability of CBC with trial of heparin if no further evidence of bleeding CAD single vessel mild pRCA dz with collaterals [facility] 09/13 - Medical therapy was recommended: crestor. OAC instead of aspirin in light of AF, see below. - 07/01/23 lexiscan stress test negative for ischemia with EF 51% SSS s/p single chamber pacemaker 05/2023 Chronic atrial fibrillation MADELYN thrombus dx by echo 09/13/23 - Off anticoagulation 10/19/23 due to severe GI bleed. O - Trial resumption of anticoagulation with heparin gtt - Overall rate controlled AF with Vpacing on telemetry. Occasional ectopy Hypertension - well controlled on toprol XL Acute kidney disease creatinine slowly improving. Hx Hypervolemic hyponatremia 10/19/23 - Cr elevated in setting of aggressive diuresis at prior admission. Improved by time of discharged 10/25 to 1.5 - Cr 1.21 (09/08) - Na 128 (09/08). Na as low as 127 (10/18)> Stable while here [place] [facility] 130-140 - Per patient, was started on finerenone 20mg daily July or August 2023 to help with kidney function - Cr today 1.30 stable (1.25,1.27) Chronic back pain due to Rheumatoid arthritis - on methotrexate at home, but stopped due to MAYLIN - on percocet and lidocaine patch at prior to admit. Currently has percocet PRN DM2 - on metformin outpatient prior to admission - on humalog SS at [facility] - HgbA1C 10/31: 6.9 % - SS#1 while inpatient - Diabetic carb control diet History of hypothyroidism - TSH high but T4 WNL. - continue levoxyl DVT ppx: heparin gtt DISPO: pending TAVR eval, diuresis. Code status: Full Code Patient seen and discussed with Dr. Guerita Molina. Trupti Foss PA-C Associated attestation - Guerita Molina MD PhD - 11/04/2023 12:57 PM EDT This is a shared visit. I have reviewed the Advanced Practice Provider's encounter note, approve the Advanced Practice Provider's documentation, and provide the following additional information from my personal encounter. Shahid Sanchez developed epistaxis again today. Thus far controlled with conservative measures, will observe closely and reconsult the ENT team as needed. He had fair diuresis 11/03/2023, but remains warm and hypervolemic. IV diuresis will be augmented. His evaluation for anemia has been negative so far. Appreciate the input of the gastroenterology team. No apparent GI lesion. His evaluation for heyde's syndrome continues, vWF results are pending. It is likely that his anemia is secondary to chronic inflammation +/- some worsening due to his recurrent epistaxis. Will discuss with the structural heart team wrt timing of his valve intervention. Guerita Molina MD PhD Images from the original note were not included. [facility] [place] PROGRESS NOTE Source of Information: The source of the history was patient and chart review Consult requested by: Service: Cardiology Reason for Consult: Anemia Admission Chief Complaint: HFrEF exacerbation SUBJECTIVE Interval: NAEO. Hb 9.7 from 9.1. Underwent EGD today. EXAM Vital signs: 11/03/2023 8:45 AM 11/03/2023 9:32 AM 11/03/2023 10:56 AM 11/03/2023 11:11 AM 11/03/2023 11:26 AM 11/03/2023 12:04 PM 11/03/2023 3:38 PM Vitals Systolic 120 123 96 116 126 133 118 Diastolic 84 57 60 60 55 60 45 Heart Rate 72 68 74 75 78 69 72 Temp 36.8 C (98.2 F) 36 C (96.8 F) 36.3 C (97.3 F) 36.3 C (97.3 F) Resp 19 20 20 18 16 16 Height (in) 1.803 m (5' 11 ) Weight (lb) 212 BMI 29.57 kg/m2 BSA (m2) 2.2 m2 Physical Exam General: NAD, AA&O x 3, frail appearing Eyes: EOMI, PERRLA ENT: MMM Heart: RRR Lungs: No respiratory distress, on NC Abdomen: Soft, non tender, non distended Skin: No jaundice Neuro: Appropriately responds to questions/commands DATA Labs Results for orders placed or performed during the hospital encounter of 11/01/23 (from the past 24 hour(s)) POCT GLUCOSE Result Value Ref Range POCT Glucose 147 (H) 74 - 99 mg/dL POCT GLUCOSE Result Value Ref Range POCT Glucose 130 (H) 74 - 99 mg/dL POCT GLUCOSE Result Value Ref Range POCT Glucose 127 (H) 74 - 99 mg/dL POCT GLUCOSE Result Value Ref Range POCT Glucose 179 (H) 74 - 99 mg/dL Imaging NA GI Procedures 11/03/2023 EGD Impression The esophagus, stomach and duodenum appeared normal. Findings The esophagus, stomach and duodenum appeared normal. No ulcers, erosions, masses or AVMs. ASSESSMENT / PLAN Assessment and Recommendations: Shahid Sanchez is a 83 y.o. male w/PMH of Afib, sick sinus syndrome s/p pacemaker, HFrEF severe aortic stenosis, CAD chronic respiratory failure due to CHF on 2.5L oxygen, GUNNER not using CPAP, colon cancer s/p resection directly admitted for HFrEF exacerbation, anemia and possible expedited TAVR. GI was consulted for acute on chronic anemia. Anemia is combination of BARBARA, ACD, or hemolysis (aortic stenosis). Cyndie had held post recent admission at [facility] requiring 2U pRBC for Hb drop. Although pt has no overt signs of GI bleed at the moment, giving that he is anticipated to be back on anti-platelet/anti-coagulation it would be reasonable to plan EGD. Pt appears frail to proceed colonoscopy. Also reports that he had surveillance colonoscopy post resection which reportedly unremarkable. EGD on 11/02 was unremarkable; no lesions to explain the recent episodes of Hb drop anemia. Plan -c/w daily PPI -Pt to follow up with his own GI as outpatient PRETTY per primary team. GI will sign off. ------ Marjan Starkey MD Gastroenterology Fellow After 5PM and on Weekends, please page on-call fellow. Case discussed with service attending Dr. Enamorado Final recommendations pending attending attestation. Associated attestation - Castillo Enamorado MD - 11/03/2023 7:49 PM EDT GI CONSULT ATTENDING NOTE: I saw and evaluated the patient. I personally obtained the rose and critical portions of the history and physical exam or was physically present for rose and critical portions performed by the fellow/resident/medical student. I agree with the trainee's medical decision making as described in the trainee's note with the exception as noted below. The total time spent on the floor rendering services for this patient (obtaining/reviewing additional history, performing medically appropriate exam and/or evaluation, reviewing the electronic chart, labs, imaging, independently interpreting the results and communicating and discussing with medical teams, counseling and educating the patient, discussing with family members, ordering medications, tests and/or procedures, coordinating care, and documentation) was 50 minutes. More than 50% of the time was required for counseling and coordinating care. No overt signs of GI blood loss. Anemia appears multifactorial including anemia of chronic disease, and bone marrow suppression related to acute illness as well as multiple phlebotomies. EGD showed no concerning lesions. Patient had recent colonoscopy 2 years ago post cancer resection which was unrevealing, and he is not a candidate for additional surveillance colonoscopies given advanced age and comorbidities. If patient shows signs of overt GI bleeding on antiplatelet and/or anticoagulation, please call us back. Castillo Enamorado MD, ALFREDO Chief Medical Silo Tender [facility] [place] Associate Chief and Director of Clinical Operations Division of Gastroenterology & Liver Disease Master Clinician [facility] wool classer [facility] Interval events: No acute events overnight Subjective: Did not urinate that much yesterday. No SOB. Legs still swollen. Today in brief: - EGD today to rule out UGIB source - Haptoglobin labs - Obtain [facility] EGD/c-scope records - Escalate diuresis to IV lasix 80mg BID - Add spironolactone 25mg daily for HF/K support - Add diabetic diet order for glucose control Objective: Vitals: 11/03/23 0542 BP: 118/51 Pulse: 68 Resp: 19 Temp: 36.4 C (97.5 F) SpO2: 96% Weight 11/01/2023 1638 11/01/2023 1638 11/01/2023 1804 11/02/2023 0500 11/03/2023 0542 Weight: 96.2 kg (212 lb) 96.2 kg (212 lb) 96.1 kg (211 lb 12.8 oz) 97.1 kg (214 lb) 96.5 kg (212 lb 11.9 oz) Intake/Output Summary (Last 24 hours) at 11/03/2023 0722 Last data filed at 11/03/2023 0542 Gross per 24 hour Intake 480 ml Output 1100 ml Net -620 ml Recent Results (from the past 24 hour(s)) POCT GLUCOSE Collection Time: 11/02/23 8:02 AM Result Value Ref Range POCT Glucose 135 (H) 74 - 99 mg/dL POCT GLUCOSE Collection Time: 11/02/23 11:42 AM Result Value Ref Range POCT Glucose 195 (H) 74 - 99 mg/dL Folate Collection Time: 11/02/23 12:38 PM Result Value Ref Range Folate, Serum >24.0 >5.0 ng/mL Vitamin B12 Collection Time: 11/02/23 12:38 PM Result Value Ref Range Vitamin B12 669 211 - 911 pg/mL POCT GLUCOSE Collection Time: 11/02/23 3:53 PM Result Value Ref Range POCT Glucose 217 (H) 74 - 99 mg/dL CBC Collection Time: 11/02/23 4:19 PM Result Value Ref Range WBC 6.1 4.4 - 11.3 x10*3/uL nRBC 0.0 0.0 - 0.0 /100 WBCs RBC 3.10 (L) 4.50 - 5.90 x10*6/uL Hemoglobin 9.7 (L) 13.5 - 17.5 g/dL Hematocrit 29.9 (L) 41.0 - 52.0 % MCV 97 80 - 100 fL MCH 31.3 26.0 - 34.0 pg MCHC 32.4 32.0 - 36.0 g/dL RDW 15.9 (H) 11.5 - 14.5 % Platelets 417 150 - 450 x10*3/uL Renal Function Panel Collection Time: 11/02/23 4:19 PM Result Value Ref Range Glucose 202 (H) 74 - 99 mg/dL Sodium 139 136 - 145 mmol/L Potassium 3.1 (L) 3.5 - 5.3 mmol/L Chloride 97 (L) 98 - 107 mmol/L Bicarbonate 32 21 - 32 mmol/L Anion Gap 13 10 - 20 mmol/L Urea Nitrogen 37 (H) 6 - 23 mg/dL Creatinine 1.25 0.50 - 1.30 mg/dL eGFR 57 (L) >60 mL/min/1.73m*2 Calcium 8.8 8.6 - 10.6 mg/dL Phosphorus 3.1 2.5 - 4.9 mg/dL Albumin 3.4 3.4 - 5.0 g/dL Magnesium Collection Time: 11/02/23 4:19 PM Result Value Ref Range Magnesium 2.06 1.60 - 2.40 mg/dL POCT GLUCOSE Collection Time: 11/02/23 8:03 PM Result Value Ref Range POCT Glucose 147 (H) 74 - 99 mg/dL Inpatient Medications: Scheduled medications Medication Dose Route Frequency bumetanide 1 mg oral BID cholecalciferol 5,000 Units oral Daily docusate sodium 100 mg oral BID finasteride 5 mg oral Daily folic acid 800 mcg oral Daily insulin lispro 0-5 Units subcutaneous TID iron polysaccharides 150 mg oral Daily with evening meal [START ON 11/07/2023] levothyroxine 100 mcg oral Every Wednesday levothyroxine 50 mcg oral Once per day on Wednesday lidocaine 1 patch transdermal Daily metoprolol succinate XL 50 mg oral Daily montelukast 10 mg oral Once per day on Wednesday pantoprazole 40 mg oral BID rosuvastatin 5 mg oral Nightly sodium chloride 1 spray Each Nostril 4x daily tamsulosin 0.4 mg oral Nightly vericiguat 10 mg oral Daily PRN medications Medication acetaminophen dextrose dextrose glucagon glucagon melatonin oxyCODONE-acetaminophen Continuous Medications Medication Dose Last Rate Telemetry 11/03/2023 (personally reviewed): 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 with occ PVCs vs Vs beats Physical exam: General: NAD Head/ neck: + JVD, + HJR to jaw line Cardiac: RRR, regular S1 S2 , 3/6 systolic murmur, no rub, no gallop Pulm: CTA bilaterally, no wheezes, rales or rhonchi. Vascular: Radial 2+ bilaterally GI: Non distended Extremities: 2+ bilateral LE edema Neuro: no focal neuro deficits Psych: appropriate mood and behavior Skin: warm and dry Assessment/Plan Shahid Sanchez is a 83 y.o. male with a medical history of HTN, DM, HLD, A-fib, sick sinus syndrome s/p pacemaker, RA, HFrEF, severe aortic stenosis, CAD, GUNNER (not using CPAP), chronic respiratory failure from CHF on 2.5, was directly admitted by structural heart team/ Dr. Brenner for HFrEF exacerbation, anemia and possible expedited TAVR. History of acute GI bleed and anemia 10/19/23 History of colon cancer s/p resection without recurrence Hx of epistaxis - seen by GI at [facility] felt to be high risk for endoscopy locally. GI suggesting transfer to [facility] (patient ultimately discharged to [facility]) S/P 2 units PRBC. Eliquis stopped with consideration to restart if Hgb stable in the future. Hemoglobin stable during admission. Considered possible candidate for watchman. - Hgb 10/24 8.9. 08/2022 12.6 - GI consulted. EGD today to rule out UGIB. - ENT consult encouraged humdified oxygen and nasal sprays. No acute bleeding seen. - Von willebrand labs pending - Vitamin B12, folate, and LDH WNL - Haptoglobin pending. 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 Cruz, last seen 10/12 in decompensated CHF. Zaroxyln 2.5mg daily was started - SH team 10/[address] Dr[address] Dr. Brenner, CT TAVR 10/05. Planned for TAVR 11/04 if Hgb remained stable >8. Hgb 09/13 10.7 and 10/04 8.4. when patient was given update of meeting recommendations, he reported dark stools. He was asked to follow up with PCP Dr. Raymundo. - TTE 02/26/23 EF 65%, mild LVH, mild dilated LA, mild MR, TR, RVSP 64, HUBER 1cm2, peak grad 61mmHg,mn grad 33. - [place] 09/13/23 : EF 35%, LVH, LA moderately dilated, severe , max grad 64mmHg, mn 36mmHg, HUBER 0.7cm2. mild MR, TR, RVSP 50-60 - CT TAVR 10/06/23 Extensive atherosclerotic changes of thoracoabdominal aorta and branches. Mod to sev stenosis L renal artery. Severe calcifications of aortic valve. Pulmonary interstitial and alveolar edema with small bilateral pleural effusions. 1.5 cm left thyroid nodule. Prostatomegaly. Severe coronary artery calcifications. - Aldactone dc outpatient due to elevated K, but restarted at discharge 10/25 - Discharged at [facility] on bumex 1mg BID - Hypervolemic. - Holding home bumex 1mg BID - S/p lasix 40mg IV x1 11/01. Repleted KCl - Escalate to IV lasix 80mg BID today. Monitor UOP - Add spironolactone 25mg daily - Wean O2 as tolerated - Structural heart team following. Possible TAVR pending anemia work up CAD single vessel mild pRCA dz with collaterals C 09/13 - Medical therapy was recommended: crestor. Defer aspirin pending anemia work up. - 07/01/23 lexiscan stress test negative for ischemia with EF 51% SSS s/p PPM 05/2023 Chronic atrial fibrillation MADELYN thrombus dx by echo 09/13/23 - Off anticoagulation 10/19/23 due to severe GI bleed. Ongoing anemia work up - AF with Vpacing on telemetry (see tele above) Hypertension - well controlled on toprol XL Acute kidney disease creatinine slowly improving. Hx Hypervolemic hyponatremia 10/19/23 - Cr elevated in setting of aggressive diuresis at prior admission. Improved by time of discharged 10/25 to 1.5 - Cr 1.21 (09/08) - Na 128 (09/08). Na as low as 127 (10/18)> Stable while here [place] [facility] 130-140 - Per patient, was started on finerenone 20mg daily July or August 2023 to help with kidney function - Cr today 1.25 stable (1.27) Chronic back pain due to Rheumatoid arthritis - on methotrexate at home, but stopped due to MAYLIN - on percocet and lidocaine patch at prior to admit. Currently has percocet PRN DM2 - on metformin outpatient prior to admission - on humalog SS at [facility] - HgbA1C 10/31: 6.9 % - SS#1 while inpatient - Diabetic carb control diet History of hypothyroidism - TSH high but T4 WNL. - continue levoxyl DVT ppx: home eliquis on hold in light of anemia/concern for active bleeding DISPO: pending TAVR eval, diuresis. Code status: Full Code Patient seen and discussed with Dr. Guerita Molina. Trupti Foss PA-C Associated attestation - Guerita Molina MD PhD - 11/03/2023 1:40 PM EDT This is a shared visit. I have reviewed the Advanced Practice Provider's encounter note, approve the Advanced Practice Provider's documentation, and provide the following additional information from my personal encounter. Shahid Mckeontz's anaemia evaluation is ongoing. No lesions of ENT exam and no further epistaxis remains volume overloaded, Khoi's labs ( vWF labs pending). EGD pending today. Will escalate IV diuretic regimen,and MRA dose today Guerita Molina MD PhD 11/02/2023 Care Coordination Shahid Sanchez is a 83 y.o. male with a medical history of HTN, DM, HLD, A-fib, sick sinus syndrome s/p pacemaker, RA, HFrEF, severe aortic stenosis, CAD, GUNNER (not using CPAP), chronic respiratory failure from CHF on 2.5LO2, was directly admitted by structural heart team/ Dr. Brenner for HFrEF exacerbation, anemia and possible expedited TAVR. Pt states he lives alone, did not use any assistive devices. Did admit to a fall at home. New to home 02. [facility] [employer]. Interval events: No acute events overnight Subjective: No CP. Legs swollen Today in brief: - GI consult for anemia work up - ENT consult for hx of epistaxis and nasal congestion - SH consult for severe aortic stenosis - Diurese with IV lasix 40mg1. Monitor UOP to consider escalating to BID. - Check B12, folate labs, and VWF labs Objective: Vitals: 11/02/23 0529 BP: 126/51 Pulse: 69 Resp: 19 Temp: 36.4 C (97.5 F) SpO2: 90% Weight 11/01/2023 1638 11/01/2023 1638 11/01/2023 1804 11/02/2023 0500 Weight: 96.2 kg (212 lb) 96.2 kg (212 lb) 96.1 kg (211 lb 12.8 oz) 97.1 kg (214 lb) Intake/Output Summary (Last 24 hours) at 11/02/2023 0804 Last data filed at 11/02/2023 0630 Gross per 24 hour Intake 500 ml Output 950 ml Net -450 ml Recent Results (from the past 24 hour(s)) ECG 12 Lead Collection Time: 11/01/23 5:52 PM Result Value Ref Range Ventricular Rate 70 BPM Atrial Rate 73 BPM QRS Duration 158 ms QT Interval 448 ms QTC Calculation(Bazett) 483 ms R [place] -60 degrees T [place] 109 degrees QRS Count 11 beats Q Onset 214 ms T Offset 438 ms QTC Fredericia 471 ms CBC Collection Time: 11/01/23 6:18 PM Result Value Ref Range WBC 5.4 4.4 - 11.3 x10*3/uL nRBC 0.0 0.0 - 0.0 /100 WBCs RBC 2.93 (L) 4.50 - 5.90 x10*6/uL Hemoglobin 9.1 (L) 13.5 - 17.5 g/dL Hematocrit 27.7 (L) 41.0 - 52.0 % MCV 95 80 - 100 fL MCH 31.1 26.0 - 34.0 pg MCHC 32.9 32.0 - 36.0 g/dL RDW 15.8 (H) 11.5 - 14.5 % Platelets 383 150 - 450 x10*3/uL Renal Function Panel Collection Time: 11/01/23 6:18 PM Result Value Ref Range Glucose 130 (H) 74 - 99 mg/dL Sodium 140 136 - 145 mmol/L Potassium 3.6 3.5 - 5.3 mmol/L Chloride 97 (L) 98 - 107 mmol/L Bicarbonate 32 21 - 32 mmol/L Anion Gap 15 10 - 20 mmol/L Urea Nitrogen 41 (H) 6 - 23 mg/dL Creatinine 1.27 0.50 - 1.30 mg/dL eGFR 56 (L) >60 mL/min/1.73m*2 Calcium 8.4 (L) 8.6 - 10.6 mg/dL Phosphorus 2.5 2.5 - 4.9 mg/dL Albumin 3.3 (L) 3.4 - 5.0 g/dL Magnesium Collection Time: 11/01/23 6:18 PM Result Value Ref Range Magnesium 1.51 (L) 1.60 - 2.40 mg/dL Coagulation Screen Collection Time: 11/01/23 6:18 PM Result Value Ref Range Protime 13.1 (H) 9.8 - 12.8 seconds INR 1.2 (H) 0.9 - 1.1 aPTT 37 27 - 38 seconds B-type natriuretic peptide Collection Time: 11/01/23 6:18 PM Result Value Ref Range BNP 417 (H) 0 - 99 pg/mL Type and screen Collection Time: 11/01/23 6:18 PM Result Value Ref Range ABO TYPE AB Rh TYPE NEG ANTIBODY SCREEN NEG Lactate Collection Time: 11/01/23 6:18 PM Result Value Ref Range Lactate 1.9 0.4 - 2.0 mmol/L Hemoglobin A1c Collection Time: 11/01/23 6:18 PM Result Value Ref Range Hemoglobin A1C 6.9 (H) see below % Estimated Average Glucose 151 Not Established mg/dL Iron and TIBC Collection Time: 11/01/23 6:18 PM Result Value Ref Range Iron 63 35 - 150 ug/dL UIBC 196 110 - 370 ug/dL TIBC 259 240 - 445 ug/dL % Saturation 24 (L) 25 - 45 % Ferritin Collection Time: 11/01/23 6:18 PM Result Value Ref Range Ferritin 496 (H) 20 - 300 ng/mL TSH with reflex to Free T4 if abnormal Collection Time: 11/01/23 6:18 PM Result Value Ref Range Thyroid Stimulating Hormone 8.94 (H) 0.44 - 3.98 mIU/L Thyroxine, Free Collection Time: 11/01/23 6:18 PM Result Value Ref Range Thyroxine, Free 1.32 0.78 - 1.48 ng/dL POCT GLUCOSE Collection Time: 11/01/23 9:41 PM Result Value Ref Range POCT Glucose 189 (H) 74 - 99 mg/dL Inpatient Medications: Scheduled medications Medication Dose Route Frequency bumetanide 1 mg oral BID cholecalciferol 5,000 Units oral Daily docusate sodium 100 mg oral BID finasteride 5 mg oral Daily folic acid 800 mcg oral Daily insulin lispro 0-5 Units subcutaneous TID iron polysaccharides 150 mg oral Daily with evening meal [START ON 11/07/2023] levothyroxine 100 mcg oral Every Wednesday levothyroxine 50 mcg oral Once per day on Wednesday lidocaine 1 patch transdermal Daily metoprolol succinate XL 50 mg oral Daily montelukast 10 mg oral Once per day on Wednesday pantoprazole 40 mg oral BID rosuvastatin 5 mg oral Nightly tamsulosin 0.4 mg oral Nightly vericiguat 10 mg oral Daily PRN medications Medication acetaminophen dextrose dextrose glucagon glucagon melatonin oxyCODONE-acetaminophen Continuous Medications Medication Dose Last Rate Telemetry 11/02/2023 (personally reviewed): AF w/Vpacing, occasional PVCs Physical exam: General: NAD Head/ neck: no JVD, negative HJR Cardiac: RRR, regular S1 S2 , 3/6 systolic murmur, no rub, no gallop Pulm: CTA bilaterally, no wheezes, rales or rhonchi. Vascular: Radial 2+ bilaterally GI: Non distended Extremities: 1+ bilateral LE edema Neuro: no focal neuro deficits Psych: appropriate mood and behavior Skin: warm and dry Assessment/Plan Shahid Sanchez is a 83 y.o. male with a medical history of HTN, DM, HLD, A-fib, sick sinus syndrome s/p pacemaker, RA, HFrEF, severe aortic stenosis, CAD, GUNNER (not using CPAP), chronic respiratory failure from CHF on 2., was directly admitted by structural heart team/ Dr. Brenner for HFrEF exacerbation, anemia and possible expedited TAVR. History of acute GI bleed and anemia 10/19/23 History of colon cancer s/p resection without recurrence Hx of epistaxis - seen by GI at [facility] felt to be high risk for endoscopy locally. GI suggesting transfer to [facility] (patient ultimately discharged to SNF) S/P 2 units PRBC. Eliquis stopped with consideration to restart if Hgb stable down the road. Hemoglobin stable during admission. Possible candidate for watchman. - Hgb 10/24 8.9. 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 Cruz, last seen 10/12 in decompensated CHF. Zaroxyln 2.5mg daily was started - SH team 10/[address] Dr[address]. Brenner, CT TAVR 10/05. Planned for TAVR 11/04 if Hgb remained stable >8. Hgb 09/13 10.7 and 10/04 8.4. when patient was given update of meeting recommendations, he reported dark stools. He was asked to follow up with PCP Dr. Raymundo. - TTE 02/26/23 EF 65%, mild LVH, mild dilated LA, mild MR, TR, RVSP 64mmHg, HUBER 1cm2, peak gradient 61mmHg, mn grad 33mmhg. - SEBASTIÁN 09/13/23 showed severe aortic stenosis with EF 35%, LVH, LA moderately dilated, severe , max grad 64mmHg, mean 36mmHg, HUBER 0.7cm2. mild MR, TR, RVSP 50-60mmHg - CT TAVR 10/06/23 Extensive atherosclerotic changes of thoracoabdominal aorta and branches. Mod to sev stenosis of of left renal artery. Severe calcifications of aortic valve. Pulmonary interstitial and alveolar edema with small bilateral pleural effusions. 1.5 cm left thyroid nodule. Prostatomegaly. Severe coronary artery calcifications. - aldactone dc outpatient due to elevated K, but restarted at discharge 10/25 - Discharged at [facility] on bumex 1mg BID - CXR pending. Appears hypervolemic. Diuresis with lasix 40mg IV x1 today. Increase to BID pending UOP. Wean O2 as tolerated. - consult CAD single vessel mild pRCA dz with collaterals [facility] 09/13 - medical therapy was recommended: crestor. Defer aspirin pending anemia work up. - 07/01/23 lexiscan stress test negative for ischemia with EF 51% SSS s/p PPM 05/2023 Chronic atrial fibrillation MADELYN thrombus dx by echo 09/13/23 - Off anticoagulation 10/19/23 due to severe GI bleed - AF with intermittent Vpacing on telemetry (see tele above) Hypertension - well controlled on toprol XL Acute kidney disease creatinine slowly improving. Hx Hypervolemic hyponatremia 10/19/23 - Cr elevated in setting of aggressive diuresis at prior admission. Improved by time of discharged 10/25 to 1.5 - Cr 1.21 (09/08) - Na 128 (09/08). Na as low as 127 (10/18) - Per patient was started on finerenone 20mg daily July or August 2023 to help with kidney function - Cr today 1.27 stable. - Na 10/31 140 WNL Chronic back pain due to Rheumatoid arthritis - on methotrexate at home, but stopped due to MAYLIN and placed on percocet and lidocaine patch inpatient which was continued at [facility] - on metformin outpatient prior to admission for MAYLIN - on humalog SS at [facility] - HgbA1C 10/31: 6.9 % - will initiate SS#1 while inpatient History of hypothyroidism - TSH high but T4 WNL. - continue levoxyl DVT ppx: home eliquis on hold in light of anemia/concern for active bleeding DISPO: pending TAVR eval, diuresis. Code status: Full Code Patient seen and discussed with Dr. Guerita Molina. Trupti Foss PA-C Pharmacy Medication History Review Shahid Sanchez is a 83 y.o. male admitted for Aortic stenosis, severe. Pharmacy reviewed the patient's [id number] medications and allergies for accuracy. The list below reflects the updated [facility] list. Prior to Admission Medications Prescriptions Last Dose Informant Bydureon BCise 2 mg/0.85 mL auto-injector few weeks Self, Family Member Sig: Inject 2 mg under the skin 1 (one) time per week in the web development director.. Eliquis 5 mg tablet 10/19/2023 Self, Family Member Sig: Take 1 tablet (5 mg) by mouth 2 times a day. cholecalciferol (Vitamin D-3) 5,000 Units tablet Self, Family Member Sig: Take 1 tablet (5,000 Units) by mouth early in the morning.. colesevelam (Welchol) 625 mg tablet Self, Family Member Sig: Take 6 tablets (3,750 mg) by mouth once daily. Take with meal(s) and a liquid. dutasteride (Avodart) 0.5 mg capsule 11/01/2023 Self, Family Member Sig: Take 1 capsule (0.5 mg) by mouth once daily. folic acid (Folvite) 800 mcg tablet Self, Family Member Sig: Take 1 tablet (800 mcg) by mouth once daily. furosemide (Lasix) 40 mg tablet Self, Family Member Sig: Take 1 tablet (40 mg) by mouth once daily. inFLIXimab (Remicade) 100 mg injection 1-2 months ago Self, Family Member Sig: Infuse 600 mg into a venous catheter once daily. Every 8 weeks ipratropium (Atrovent) 21 mcg (0.03 %) nasal spray Self, Family Member Sig: Administer 2 sprays into each nostril every 12 hours. levothyroxine (Synthroid, Levoxyl) 50 mcg tablet 11/01/2023 Self, Family Member Sig: Take 1 tablet (50 mcg) by mouth once daily. 1 tab and Wednesday take 2 tabs metFORMIN (Glucophage) 850 mg tablet 10/31/2023 Self, Family Member Sig: Take 1 tablet (850 mg) by mouth once daily at bedtime. take with evening meal metOLazone (Zaroxolyn) 2.5 mg tablet Unknown Self, Family Member Sig: Take 1 tablet (2.5 mg) by mouth once daily. methotrexate (Trexall) 2.5 mg tablet 3 weeks ago Self, Family Member Sig: take 6 tablets by mouth every week metoprolol succinate XL (Toprol-XL) 50 mg 24 hr tablet Self, Family Member Sig: Take 1 tablet (50 mg) by mouth once daily. montelukast (Singulair) 10 mg tablet Self, Family Member Sig: Take 1 tablet (10 mg) by mouth 4 times a week. MWFSu pantoprazole (ProtoNix) 40 mg EC tablet Self, Family Member Sig: Take 1 tablet (40 mg) by mouth 2 times a day. Do not crush, chew, or split. polysaccharide iron complex 180 mg iron capsule Self, Family Member Sig: Take 1 capsule (391.3 mg) by mouth once daily in the evening. Take with meals. rosuvastatin (Crestor) 10 mg tablet Self, Family Member Sig: Take 1 tablet (10 mg) by mouth 4 times a week. MWFSu spironolactone (Aldactone) 25 mg tablet Self, Family Member Sig: Take 1 tablet (25 mg) by mouth once daily. tamsulosin (Flomax) 0.4 mg 24 hr capsule Self, Family Member Sig: Take 1 capsule (0.4 mg) by mouth once daily at bedtime. valsartan (Diovan) 40 mg tablet Unknown Self, Family Member Sig: Take 1 tablet (40 mg) by mouth once daily. vericiguat (Verquvo) 10 mg tablet Unknown Self, Family Member Sig: Take 10 mg by mouth once daily. Facility-Administered Medications: None The list below reflects the updated allergy list. Please review each documented allergy for additional clarification and justification. Allergies Reviewed by Ajith Redman RPh on 11/01/2023 No Known Allergies Patient accepts M2B at discharge. Local pharmacy: [facility] in [place], [place] (previously used [facility], this pharmacy is closing) Sources: Pt interview - good historian, conversational. Familiar with most medications when prompted with drug name, pt can provide details (frequency, # of tablets) Interview with family members - supported patient with interview and confirming details of medications Dispense hx [facility] medication list 10/13/23 cardiology office visit Additional Comments: Discharged from SNF to home on Wednesday10/26/23. Sent to SNF after fall on 10/17 Metolazone 2.5 mg daily - recently prescribed, pt unsure if he started taking at home. Valsartan 40 mg daily - pt confirms Entresto 24-26 mg BID was discontinued. Pt unsure if he is taking valsartan 40 mg daily at home. Colesevelam - prescribed 6 tablets (3750 mg) daily, pt does not take daily. Takes 2 tablets daily PRN diarrhea. Vericiguat 20 mg daily - received 1 month supply in August 2023, reports taking. No refills. Eliquis - held since 10/19/23 due to patient/family reported GI bleed. Pt is in coverage gap/donut hole for insurance. Test claim ran and Eliquis is $150/month, family aware - did not express concern about bello. Ajith Redman PharmD Transitions of Care Pharmacist 11/01/23 Secure Chat preferred If no response call [phone] or DEONTICS Rec documented in this encounter [facility] Work Phone: 11-12-2023 History and physical note Images from the original note were not included. H&P reviewed. The patient was examined and there are no changes to the H&P. History Of Present Illness Shahid Sanchez is a 83 y.o. male with PMHx Afib, sick sinus syndrome s/p pacemaker, HFrEF, severe aortic stenosis, CAD chronic respiratory failure due to CHF on 2.5L oxygen, GUNNER not using CPAP, colon cancer s/p resection directly admitted for HFrEF exacerbation, anemia and possible expedited TAVR. GI was consulted for anemia. Past Medical History Past Medical History: Diagnosis Date Atrial fibrillation (Multi) BPH (benign prostatic hyperplasia) Cancer (Multi) CHF (congestive heart failure) (Multi) Chronic kidney disease Chronic UTI Colon cancer (Multi) Diabetes mellitus (Multi) Hearing impaired Heart murmur Heart valve disease Hyperlipidemia Hypertension Hypothyroidism Rheumatoid arthritis (Multi) Sleep apnea Surgical History Past Surgical History: Procedure Laterality Date CARDIAC CATHETERIZATION CAROTID ARTERY ANGIOPLASTY CATARACT EXTRACTION W/ INTRAOCULAR LENS IMPLANT COLON SURGERY COLON SURGERY partial surgical removal of colon COLONOSCOPY ELBOW SURGERY Bilateral ELBOW SURGERY GALLBLADDER SURGERY INSERT / REPLACE / REMOVE PACEMAKER KNEE SURGERY Bilateral PACEMAKER PLACEMENT ROTATOR CUFF REPAIR Bilateral SHOULDER OPEN ROTATOR CUFF REPAIR Bilateral TOTAL KNEE ARTHROPLASTY Bilateral Social History He reports that he has quit smoking. His smoking use included cigarettes. He has never used smokeless tobacco. He reports that he does not currently use alcohol. He reports that he does not use drugs. Family History Family History Problem Relation Name Age of Onset Cancer Mother Diabetes type I Father Cancer Sister Heart failure Brother Allergies No Known Allergies Review of Systems All other systems reviewed and are negative. Physical Exam Eyes: Extraocular Movements: Extraocular movements intact. Pupils: Pupils are equal, round, and reactive to light. Cardiovascular: Rate and Rhythm: Normal rate and regular rhythm. Pulmonary: Effort: Pulmonary effort is normal. Breath sounds: Normal breath sounds. Abdominal: General: Abdomen is flat. Palpations: Abdomen is soft. Musculoskeletal: General: Normal range of motion. Neurological: Mental Status: He is alert. Last Recorded Vitals Blood pressure 123/57, pulse 68, temperature 36.8 C (98.2 F), temperature source Temporal, resp. rate 19, height 1.803 m (5' 11 ), weight 96.2 kg (212 lb), SpO2 97%. Assessment/Plan EGD with anesthesia Marjan Starkey MD History Of Present Illness: Shahid Sanchez is a 83 y.o. male with a medical history of HTN, DM, HLD, A-fib, sick sinus syndrome s/p pacemaker, RA, HFrEF, severe aortic stenosis, CAD, GUNNER (not using CPAP), chronic respiratory failure from CHF on 2.5LO2, was directly admitted by structural heart team/ Dr. Brenner for HFrEF exacerbation, anemia and possible expedited TAVR. Son and daughter in law at bedside. Patient's lodging facilities attendant Dr. Cruz, last seen 10/12 in decompensated CHF. Zaroxyln 2.5mg daily was started, repeat echo ordered. Patient has had multiple hospital admissions: Admission 09/13/23 for CHF exacerbation. TTE showed new LA thrombus. Patient admitted to missing some doses of eliquis at home. He was given lasix boluses. Entresto stopped due to severe . LHC and SEBASTIÁN done for evaluation of . LHC showed single vessel CAD, SEBASTIÁN confirmed severe with new LV dysfunction. Patient was continued on eliquis, referral to for TAVR, and oral diuretics with lasix and spirolactone. His most recently discharged 10/26/23 from [facility] due to fall. Of note, patient fell 4 days prior to admission 10/19/23 because his legs gave out and he called a squad to help him get back up. He was not admitted at that time. Lives alone. Patient states he suddenly fell, no prodrome or LOC. Work up at [facility] showed Hgb of 7.4, hyponatremia with Na of 127 and elevated Cr. Of 3.47. Patient was tested positive for stool occult blood test. He was transfused 2 units of PRBC and was started on IV fluid goal hgb >8. He also had a CAT scan abdomen pelvis and chest x-ray which showed finding concerning for CHF. nephrology consulted. Hypervolemic hyponatremia and patient was diuresed with lasix gtt at 20ml transitioned to bumex 1mg BID. Eliquis held. GI consulted, likely AVMs per their note. No indication for EGD as patients stools were brown and Hgb remained stable. He was discharged to [facility] for rehab and to consider scope by GI in the future and undergo TAVR with Dr. Brenner 11/04. Family contacted Dr. Brenner's office for medical direction, they were told to be admitted for evaluation. Patient denies falls, CP, SOB, dizziness, changes in stool, N/V. Has BM every other day which is brown and soft in consistency. No further nosebleeds as he does not pick his nose anymore. Remains on 2.5LNC. Last Recorded Vitals: Vitals: 11/01/23 1638 11/01/23 1638 BP: 115/78 115/78 Pulse: 70 70 Resp: 18 Temp: 36.4 C (97.5 F) TempSrc: Temporal SpO2: 99% Weight: 96.2 kg (212 lb) 96.2 kg (212 lb) Height: 1.803 m (5' 10.98 ) 1.803 m (5' 11 ) Last Labs: CBC - No results in last year. _ _ _ _ CMP - No results in last year. _ _ _ --- _ _ _ _ _ PTT - No results in last year. _ _ _ No results found for: TROPHS , BNP , HGBA1C , LDLCALC , VLDL Last I/O: No intake/output data recorded. Past Cardiology Tests (Last 3 Years): EKG: ECG 12 Lead 02/23/2023 Echo: Transthoracic Echo (TTE) Complete 02/26/2023 Ejection Fractions: No results found for: EF Cath: No results found for this or any previous visit from the past 1095 days. Stress Test: Nuclear Stress Test 07/01/2023 Cardiac Imaging: No results found for this or any previous visit from the past 1095 days. Past Medical History: He has a past medical history of Atrial fibrillation (Multi), BPH (benign prostatic hyperplasia), Cancer (Multi), CHF (congestive heart failure) (Multi), Chronic kidney disease, Chronic UTI, Colon cancer (Multi), Diabetes mellitus (Multi), Hearing impaired, Heart murmur, Heart valve disease, Hyperlipidemia, Hypertension, Hypothyroidism, Rheumatoid arthritis (Multi), and Sleep apnea. Past Surgical History: He has a past surgical history that includes Shoulder open rotator cuff repair (Bilateral); Elbow surgery (Bilateral); Knee surgery (Bilateral); Gallbladder surgery; Colon surgery; Colonoscopy; pacemaker placement; Cardiac catheterization; Insert / replace / remove pacemaker; Cataract extraction w/ intraocular lens implant; Colon surgery; Total knee arthroplasty (Bilateral); Elbow surgery; Rotator cuff repair (Bilateral); and Carotid angioplasty. Social History: He reports that he has quit smoking. His smoking use included cigarettes. He has never used smokeless tobacco. He reports that he does not currently use alcohol. He reports that he does not use drugs. 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 4 children, lives alone. Does not exercise. Does not feel stable walking. Was discharged to [facility] for rehab. Family History: Family History Problem Relation Name Age of Onset Cancer Mother Diabetes type I Father Cancer Sister Heart failure Brother Allergies: Patient has no known allergies. Inpatient Medications: Scheduled medications Medication Dose Route Frequency docusate sodium 100 mg oral BID PRN medications Medication acetaminophen melatonin Continuous Medications Medication Dose Last Rate Outpatient Medications: Current Outpatient Medications Medication Instructions Bydureon BCise 2 mg/0.85 mL auto-injector Inject 2 mg under the skin 1 (one) time per week in the web development director.. cholecalciferol (VITAMIN D-3) 5,000 Units, oral, Daily dutasteride (AVODART) 0.5 mg, oral, Daily Eliquis 5 mg, oral, 2 times daily folic acid (Folvite) 800 mcg tablet 1 tablet, oral, Daily furosemide (LASIX) 40 mg, oral, Daily inFLIXimab 600 mg, intravenous, Daily RT, Every 8 weeks
levothyroxine (SYNTHROID, LEVOXYL) 50 mcg, oral, Daily, 1 tab wed-wed and Wednesday take 2 tabs metFORMIN (GLUCOPHAGE) 850 mg, oral, Nightly, take with evening meal methotrexate (Trexall) 2.5 mg tablet take 6 tablets by mouth every week metOLazone (ZAROXOLYN) 2.5 mg, oral, Daily metoprolol succinate XL (TOPROL-XL) 50 mg, oral, Daily montelukast (SINGULAIR) 10 mg, oral, 4 times weekly, MWFSu rosuvastatin (CRESTOR) 10 mg, oral, 4 times weekly, MWFSu spironolactone (ALDACTONE) 25 mg, oral, Once tamsulosin (FLOMAX) 0.4 mg, oral, Nightly valsartan (DIOVAN) 40 mg, oral, Daily Physical Exam: Generally: No acute distress, lying in hospital bed HEENT head atraumatic no cephalic, neck supple Heart regular rate and rhythm. Systolic ejection murmur heard Lungs crackles bilateral posterior bases Abdomen soft nontender nondistended Neurologically intact throughout Extremities 2+ pitting edema bilaterally, pulses intact Skin no rash Psych cooperative Assessment/Plan Shahid Sanchez is a 83 y.o. male with a medical history of HTN, DM, HLD, A-fib, sick sinus syndrome s/p pacemaker, RA, HFrEF, severe aortic stenosis, CAD, GUNNER (not using CPAP), chronic respiratory failure from CHF on 2.5LO2, was directly admitted by structural heart team/ Dr. Brenner for HFrEF exacerbation, anemia and possible expedited TAVR. History of acute GI bleed and anemia 10/19/23 History of colon cancer status postresection with no recurrence - seen by GI at [facility] felt to be high risk for endoscopy locally. GI suggesting transfer to [facility] (patient ultimately discharged to SNF) S/P 2 units PRBC. Eliquis stopped with consideration to restart if Hgb stable down the road.. Hemoglobin stable. Possible candidate for watchman. - CBC ordered for this pm (also drawn by outpatient team this am, but no results available) - GI consult in am- will need endoscopy - Hgb 10/24 8.9. in September 08 was 12.6. - continue PPI HFrEF exacerbation NICM Aortic valve disease. - lodging facilities attendant Dr. Cruz, last seen 10/12 in decompensated CHF. Zaroxyln 2.5mg daily was started, repeat echo ordered. - Followed by SH team, last seen 10/[address] Reese and Dr. Brenner, CT TAVR completed 10/05. Plan was for TAVR 11/04 if Hgb remained stable and >8. Hgb 09/13 10.7 and 10/04 8.4. when patient was given update of meeting recommendations, he reported dark stools. He was asked to follow up with PCP Dr. Raymundo. - TTE 02/26/23 EF 65%, mild LVH, mild dilated LA, mild MR, TR, RVSP 64mmHg, HUBER 1cm2, peak gradient 61mmHg, mean gradient 33mmhg. - SEBASTIÁN 09/13/23 showed severe aortic stenosis with EF 35%, LVH, LA moderately dilated, severe , max gradient 64mmHg, mean 36mmHg, HUBER 0.7cm2. mild MR, TR, RVSP 50-60mmHg - CT TAVR 10/06/23 Extensive atherosclerotic changes involving the thoracoabdominal aorta and its branches. 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 Severe calcifications of the aortic valve correlating with history of aortic stenosis. Findings consistent with pulmonary interstitial and alveolar edema with small bilateral pleural effusions. Recommend follow-up chest CT in 1-3 months to evaluate for resolution after treatment. 1.5 cm left thyroid nodule. Recommend thyroid ultrasound for further evaluation. Prostatomegaly. Correlate with serum PSA and clinical exam as warranted. Severe coronary artery calcifications. 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 which is chronic with extensive network of collateral by [facility] 09/14/23 - medical therapy was recommended - 07/01/23 lexiscan stress test negative for ischemia with EF 51% Sick sinus syndrome status post permanent pacemaker implantation 05/2023 - hx of slow AVN dysfunction Chronic atrial fibrillation MADELYN thrombus dx by echo 09/13/23 - Off anticoagulation 10/19/23 due to severe GI bleed Pulmonary hypertension Chronic respiratory failure - RVSP by SEBASTIÁN 50-60mmHg - on 2.5LNC since admission 08/2023 History of hypertension - well controlled Acute kidney disease creatinine slowly improving. Hx Hypervolemic hyponatremia 10/19/23 - Cr elevated in setting of aggressive diuresis. Improved by time of discharged 10/25 to 1.5 - Cr baseline normal (1.21 09/08) - Na normal at baseline (128 09/08) - Na as low as 127 10/18 - per patient was started on finerenone 20mg daily July or August 2023 to help with kidney function - await pm labs Chronic back pain due to Rheumatoid arthritis - on methotrexate at home, but stopped due to MAYLIN and placed on percocet and lidocaine patch inpatient which was continued at [facility] - on metformin outpatient prior to admission for MAYLIN - on humalog SS at [place] - will initiate SS inpatient - HgbA1C ordered History of hypothyroidism - continue levothyroxine - TSH and free t4 ordered Dispo: pending TAVR eval, diuresis. DVT ppx pending labs, SCD ordered. STAN Denise daughter in law [phone] Peripheral IV 11/01/23 20 G Left Wrist (Active) Site Assessment Clean;Dry;Intact 11/01/23 1627 Dressing Status Clean;Dry 11/01/23 1627 Number of days: 0 Code Status: Full Code To be staffed in am Wida M Gutierrez, 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-GREASE MAN Associated attestation - Guerita Molina MD PhD - 11/02/2023 1:32 PM EDT This is a shared visit. I have reviewed the Advanced Practice Provider's encounter note, approve the Advanced Practice Provider's documentation, and provide the following additional information from my personal encounter. 83-year-old man with history as above. Notably with aortic stenosis, being considered for TAVR. He has been hospitalized for evaluation of anemia/heart failure optimization prior to TAVR procedure. He has a history of having had significant epistaxis several weeks ago, he was being evaluated by an ENT team in [place] and was due for a procedure but was unable to have this done as he was otherwise hospitalized. He also describes a single episode of dark stool (appears to be weeks ago as well), and having brown/red stool for several weeks. He denies any other overt bleeding. He reports having had a colonoscopy done at some point within the last 5 to 10 years which he was told was normal. Clinically he is hypervolemic (1-2+ pitting edema to the mid shins), and warm to touch. He does have a harsh ESM consistent with aortic stenosis. He does have a normocytic anemia with hemoglobin ~9 g/dL. We will [facility] Our [facility]ology team has already been consulted, appreciate their input. It is possible that patient's right brown stool might have been the result of swallowed blood from his epistaxis. We will also asked our ENT team to review his nares/nasal passages. He reports continuing to feel very nasally congested, and does describe that he had significant bleeding when he did have epistaxis. The possibility of Heyde's syndrome also exists, we will check CBC, anemia labs, von Willebrand factor and consult our hematology colleagues pending results. Guerita Molina MD PhD documented in this encounter [facility] Work Phone: 11-02-2023 Consult note Associated Order (s): IP CONSULT TO ENT ENT DEPARTMENT CONSULTATION NOTE Name: Shahid Sanchez : 1940 Consulting Team: Cardiology SANG, Trupti Foss PA-C Reason for Consult: hx of epistaxis, anemia History of Present Illness The patient is a 83 y.o. male with past medical history significant for but not limited to HTN, DM, HLD, a-fib, sick sinus syndrome s/p pacemaker, RA, HFrEF, severe aortic stenosis, CAD, GUNNER, colon cancer s/p resection, chronic respiratory failure from CHF on 2.5L O2. Patient presented to directed admission to [facility] for HFrEF exacerbation, anemia and possible expedited TAVR. Patient denies any recent episodes of epistaxis for multiple days. Denies feeling of blood in back of throat. He does note that he has had feeling of nasal congestion for the past few days. Denies fevers, nausea, vomiting. He has nasal cannula in place at present and is sitting up in the chair. Review of care everywhere indicates patient followed by Dr. Chamorro for recurrent epistaxis (most recent visit 08/24/23) for which patient's symptoms are usually isolated to the right side; he also has a history of nasal dryness. Patient also with diagnosis of chronic rhinitis for which he was educated to use saline gel and saline spray. Prior notes indicate patient was recently discharged from [facility] on 10/26/23 after a fall for which he tested positive for stool occult blood and received 2 unit prbc; however, EGD was not performed. ENT was consulted for hx of epistaxis, anemia. ENT asked to evaluate patient due to history of epistaxis, but no concern for epistaxis at present by primary team. Primary team notes patient reporting nasal congestion. Additionally, patient is receiving supplemental O2 via nasal cannula-he does not have any form of humidification. At present, bp 115/43, SpO2 95%, HR 68, temp 97.3 F, RR 17. Most recent labs, WBC 5.4, Hgb 9.1, platelets 383 from 11/01/23. Patient takes eliquis daily, but it is currently held. ROS notable for cough. Patient reports congestion resolved following crusting being removed from his bilateral nares. Review of Systems 14 point review of systems completed and all negative except as noted in HPI. Past Medical History Past Medical History: Diagnosis Date Atrial fibrillation (Multi) BPH (benign prostatic hyperplasia) Cancer (Multi) CHF (congestive heart failure) (Multi) Chronic kidney disease Chronic UTI Colon cancer (Multi) Diabetes mellitus (Multi) Hearing impaired Heart murmur Heart valve disease Hyperlipidemia Hypertension Hypothyroidism Rheumatoid arthritis (Multi) Sleep apnea Past Surgical History Past Surgical History: Procedure Laterality Date CARDIAC CATHETERIZATION CAROTID ARTERY ANGIOPLASTY CATARACT EXTRACTION W/ INTRAOCULAR LENS IMPLANT COLON SURGERY COLON SURGERY partial surgical removal of colon COLONOSCOPY ELBOW SURGERY Bilateral ELBOW SURGERY GALLBLADDER SURGERY INSERT / REPLACE / REMOVE PACEMAKER KNEE SURGERY Bilateral PACEMAKER PLACEMENT ROTATOR CUFF REPAIR Bilateral SHOULDER OPEN ROTATOR CUFF REPAIR Bilateral TOTAL KNEE ARTHROPLASTY Bilateral Allergies No Known Allergies Medications Current Facility-Administered Medications: acetaminophen (Tylenol) tablet 650 mg, 650 mg, oral, q4h PRN, MARGARITA Silvestre bumetanide (Bumex) tablet 1 mg, 1 mg, oral, BID, MARGARITA Cherry, 1 mg at 11/02/23900 cholecalciferol (Vitamin D-3) tablet 5,000 Units, 5,000 Units, oral, Daily, MARGARITA Cherry, 5,000 Units at 11/02/23 0533 dextrose 50 % injection 12.5 g, 12.5 g, intravenous, q15 min PRN, MARGARITA Cherry dextrose 50 % injection 25 g, 25 g, intravenous, q15 min PRN, MARGARITA Cherry docusate sodium (Colace) capsule 100 mg, 100 mg, oral, BID, MARGARITA Silvestre, 100 mg at 11/02/23900 finasteride (Proscar) tablet 5 mg, 5 mg, oral, Daily, MARGARITA Cherry, 5 mg at 11/02/23900 folic acid (Folvite) tablet 800 mcg, 800 mcg, oral, Daily, MARGARITA Cherry, 800 mcg at 11/02/23900 furosemide (Lasix) injection 40 mg, 40 mg, intravenous, Once, Trupti Foss PA-C glucagon (Glucagen) injection 1 mg, 1 mg, intramuscular, q15 min PRN, MARGARITA Cherry glucagon (Glucagen) injection 1 mg, 1 mg, intramuscular, q15 min PRN, MARGARITA Cherry insulin lispro (HumaLOG) injection 0-5 Units, 0-5 Units, subcutaneous, TID, MARGARITA Cherry iron polysaccharides (Nu-Iron,Niferex) capsule 150 mg, 150 mg, oral, Daily with evening meal, MARGARITA Cherry [START ON 11/07/2023] levothyroxine (Synthroid, Levoxyl) tablet 100 mcg, 100 mcg, oral, Every Wednesday, MARGARITA Cherry levothyroxine (Synthroid, Levoxyl) tablet 50 mcg, 50 mcg, oral, Once per day on Wednesday, MARGARITA Cherry, 50 mcg at 11/02/23 0533 lidocaine 4 % patch 1 patch, 1 patch, transdermal, Daily, MARGARITA Cherry melatonin tablet 3 mg, 3 mg, oral, Nightly PRN, MARGARITA Silvestre metoprolol succinate XL (Toprol-XL) 24 hr tablet 50 mg, 50 mg, oral, Daily, MARGARITA Cherry, 50 mg at 11/02/23 09 montelukast (Singulair) tablet 10 mg, 10 mg, oral, Once per day on Wednesday, MARGARITA Cherry, 10 mg at 11/01/232199 oxyCODONE-acetaminophen (Percocet) 5-325 mg per tablet 1 tablet, 1 tablet, oral, q4h PRN, MARGARITA Cherry pantoprazole (ProtoNix) EC tablet 40 mg, 40 mg, oral, BID, MARGARITA Cherry, 40 mg at 11/02/23 09 rosuvastatin (Crestor) tablet 5 mg, 5 mg, oral, Nightly, MARGARITA Cherry, 5 mg at 11/01/232202 tamsulosin (Flomax) 24 hr capsule 0.4 mg, 0.4 mg, oral, Nightly, MARGARITA Cherry, 0.4 mg at 11/01/232199 vericiguat tablet 10 mg, 10 mg, oral, Daily, Wida M Gutierrez, 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[employer]GRE[employer] MAN Family History Family History Problem Relation Name Age of Onset Cancer Mother Diabetes type I Father Cancer Sister Heart failure Brother Social History Social History Socioeconomic History Marital status: Spouse name: Not on file Number of children: Not on file Years of education: Not on file Highest education level: Not on file Occupational History Not on file Tobacco Use Smoking status: Former Types: Cigarettes Smokeless tobacco: Never Substance and Sexual Activity Alcohol use: Not Currently Drug use: Never Sexual activity: Not on file Other Topics Concern Not on file Social History Narrative Not on file Social Determinants of Health Financial Resource Strain: Low Risk (11/01/2023) Overall Financial Resource Strain (CARDIA) Difficulty of Paying Living Expenses: Not hard at all Food Insecurity: Not on file Transportation Needs: No Transportation Needs (11/01/2023) PRAPARE - Transportation Lack of Transportation (Medical): No Lack of Transportation (Non-Medical): No Physical Activity: Not on file Stress: Not on file Social Connections: Not on file Intimate Partner Violence: Not on file Housing Stability: Low Risk (11/01/2023) Housing Stability Vital Sign Unable to Pay for Housing in the Last Year: No Number of Times Moved in the Last Year: 1 Homeless in the Last Year: No Vital Signs Vitals: 11/02/23 0804 BP: 145/51 Pulse: 65 Resp: 18 Temp: 36.4 C (97.5 F) SpO2: 91% Physical Examination GEN: The patient appears stated age in no acute distress, sitting up in chair VOICE: No dysphonia, volume is appropriate, no pitch/voice breaks, speaks in full sentences RESP: Unlabored on 3L NC, no stridor or increased work of breathing, audible cough CV: regular rate as documented EYES: EOM grossly intact with no scleral icterus NEURO: Alert with no focal deficits and CN II-XII symmetric and grossly intact bilaterally HEAD: Scalp is normocephalic and atraumatic FACE: No visible abrasions or lacerations EARS: Normal external ears, normal hearing to spoken voice NOSE: External nose appears normal, septal deviation to the left, anterior rhinoscopy reveals bilateral nasal crusting and dry septal mucosa bilaterally. Dr. Dunn removed bilateral nasal crusting. No bleeding or oozing of blood from bilateral nares. OC: Normal lips, normal tongue OP: normal pharyngeal alvarez, no blood visualized posterior oropharynx NECK: no visible scar Psych: calm and cooperative Laboratory and Data Results for orders placed or performed during the hospital encounter of 11/01/23 (from the past 24 hour(s)) ECG 12 Lead Result Value Ref Range Ventricular Rate 70 BPM Atrial Rate 73 BPM QRS Duration 158 ms QT Interval 448 ms QTC Calculation(Bazett) 483 ms R [place] -60 degrees T [place] 109 degrees QRS Count 11 beats Q Onset 214 ms T Offset 438 ms QTC Frederic[place] 471 ms CBC Result Value Ref Range WBC 5.4 4.4 - 11.3 x10*3/uL nRBC 0.0 0.0 - 0.0 /100 WBCs RBC 2.93 (L) 4.50 - 5.90 x10*6/uL Hemoglobin 9.1 (L) 13.5 - 17.5 g/dL Hematocrit 27.7 (L) 41.0 - 52.0 % MCV 95 80 - 100 fL MCH 31.1 26.0 - 34.0 pg MCHC 32.9 32.0 - 36.0 g/dL RDW 15.8 (H) 11.5 - 14.5 % Platelets 383 150 - 450 x10*3/uL Renal Function Panel Result Value Ref Range Glucose 130 (H) 74 - 99 mg/dL Sodium 140 136 - 145 mmol/L Potassium 3.6 3.5 - 5.3 mmol/L Chloride 97 (L) 98 - 107 mmol/L Bicarbonate 32 21 - 32 mmol/L Anion Gap 15 10 - 20 mmol/L Urea Nitrogen 41 (H) 6 - 23 mg/dL Creatinine 1.27 0.50 - 1.30 mg/dL eGFR 56 (L) >60 mL/min/1.73m*2 Calcium 8.4 (L) 8.6 - 10.6 mg/dL Phosphorus 2.5 2.5 - 4.9 mg/dL Albumin 3.3 (L) 3.4 - 5.0 g/dL Magnesium Result Value Ref Range Magnesium 1.51 (L) 1.60 - 2.40 mg/dL Coagulation Screen Result Value Ref Range Protime 13.1 (H) 9.8 - 12.8 seconds INR 1.2 (H) 0.9 - 1.1 aPTT 37 27 - 38 seconds B-type natriuretic peptide Result Value Ref Range BNP 417 (H) 0 - 99 pg/mL Type and screen Result Value Ref Range ABO TYPE AB Rh TYPE NEG ANTIBODY SCREEN NEG Lactate Result Value Ref Range Lactate 1.9 0.4 - 2.0 mmol/L Hemoglobin A1c Result Value Ref Range Hemoglobin A1C 6.9 (H) see below % Estimated Average Glucose 151 Not Established mg/dL Iron and TIBC Result Value Ref Range Iron 63 35 - 150 ug/dL UIBC 196 110 - 370 ug/dL TIBC 259 240 - 445 ug/dL % Saturation 24 (L) 25 - 45 % Ferritin Result Value Ref Range Ferritin 496 (H) 20 - 300 ng/mL TSH with reflex to Free T4 if abnormal Result Value Ref Range Thyroid Stimulating Hormone 8.94 (H) 0.44 - 3.98 mIU/L Thyroxine, Free Result Value Ref Range Thyroxine, Free 1.32 0.78 - 1.48 ng/dL POCT GLUCOSE Result Value Ref Range POCT Glucose 189 (H) 74 - 99 mg/dL POCT GLUCOSE Result Value Ref Range POCT Glucose 135 (H) 74 - 99 mg/dL Assessment The patient is a 83 y.o. male with past medical history significant for but not limited to HTN, DM, HLD, a-fib, sick sinus syndrome s/p pacemaker, RA, HFrEF, severe aortic stenosis, CAD, GUNNER, colon cancer s/p resection, chronic respiratory failure from CHF on 2.5L O2. Patient presented to directed admission to [facility] for HFrEF exacerbation, anemia and possible expedited TAVR. ENT consulted given history of epistaxis, anemia. Patient denies recent episodes of epistaxis, but reports nasal congestion. On examination, patient wearing nasal cannula (non-humidified) and he has bilateral crusting. Crusting removed and patient reports immediate resolution of congestion symptoms. Bilateral septal mucosa is dry, but no blood visualized in bilateral nares. No blood visualized at posterior oropharynx. Most recent hemoglobin checked yesterday 9.1, platelets 383. Recommendations -patient seen, examined and case discussed with Dr. Dunn -Nasal saline 5 sprays 4x daily for 10 days - [place]aston nasal gel 2x daily for 10 days -Avoid digital trauma or sticking objects into nose -transition nasal cannula to face mask, ensure O2 supplementation is humidified -please contact ENT with questions or concerns or if patient develops epistaxis -recommendations also discussed with patient and all questions answered -recommendations discussed with primary team DUANE Alyssa Bullock PA-C Otolaryngology- Head & Neck Surgery ENT Consult pager: [phone] Please page if urgent I personally examined the patient on this day Eduardo Dunn Images from the original note were not included. Structural Heart Consult HPI: 83 year old male with PMH of HTN, DM, HLD, A-fib, sick sinus syndrome s/p pacemaker, RA, HFrEF, CAD, GUNNER (not using CPAP), chronic respiratory failure due to recurrent admission from [facility] needing o2 2L, and severe aortic stenosis. Structural Heart team involved to the Echo findings, 65 EF , severe aortic stenosis, mean AV gradient 33, AV Vmax 3.9, HUBER 1.0. Patient undergoing the workup for the near future TAVR proceudure. Course complicated by recurrent admission (multiples) of AD[facility], recent fall without any syncope event per pt statement secondary to BLE weakness, and most recent acute anemia at the OSH, + occult stool, and required 2 units of prbc, GI was consulted with no intervention at the time thought due to AVM and hgb was stable post transfusion. Now transfer to [facility] for further management of his ADHF symptoms and evaluation by GI team of his acute blood loss anemia. Patient currently laying in bed comfortably, on 2l NC, does not appear to be in any distress. He does endorses + Orthopnea, Dyspnea with exertion, + edema BLE. ROS: Constitutional: fatigue Eyes: no acute eye problems ENT: no nosebleeds, no acute hearing loss, no earache, no sore throat Cardiovascular: + dyspnea on exertion, no chest pain Respiratory: no chronic cough, + SOB laying flat and + SOB with exertion Gastrointestinal: no acute bowel complaints Musculoskeletal: + Chronic back pain and knee pain Skin: no skin rashes Neurological: no headaches, no dizziness, no tingling, no fainting and no limb weakness. Psychiatric: no suicidal ideation, no confusion, no personality change and no emotional problems. Hematologic/Lymphatic: no bleeding issues. All other systems have been reviewed and are negative for complaint. TAVR Workup: - NYHA: IV - Frailty: 3/5 - EK11/01/2023 AV paced, HR 70, WY -, QRS 158 ms - TTE: 09/13/2023 LV 35%, mild MR, mild TR, AV gradients 64/36 mmHg, RVSP elevated consistent with moderate to severe PHTN, LA moderate dilated, mobile densitey of the LA appendage measuring 0.7x0.8 cm consist with thrombus, RA moderately dilated, RA moderately dilated no pericardial effusion - CT TAVR: completed 10/05 - LHC: 09/13 completed Left Main no significant disease. Lesion to ostial area of the LAD 30% eccentric lesion, no stenosis, RCA totally occluded in the proximal portion (chronic) - dental clearance: No need, pt has full dentures - STS 2.8 - KCCQ completed Physical Exam: Constitutional: alert and in no acute distress. Eyes: no erythema . ENT: no erythema, edema, exudate or lesions . Neck: NCAT + jvd Pulmonary: + rales BB mid posterior back, + rhonchi upper lobes no wheezing Cardiovascular: RRR, 3/6 DOMI RUSB, + pitting edema, non-displaced PMI, no S3 or S4 Abdomen: abdomen non-tender, no masses and no hepatomegaly . Neurologic: non-focal neurologic examination. 11/01/2023 4:38 PM 11/01/2023 6:04 PM 11/01/2023 9:07 PM 11/02/2023 12:00 AM 11/02/2023 5:00 AM 11/02/2023 5:29 AM 11/02/2023 8:04 AM Vitals Systolic 115 115 109 114 126 145 Diastolic 78 78 49 46 51 51 Heart Rate 70 70 71 70 69 65 Temp 36.4 C (97.5 F) 36.2 C (97.2 F) 36.5 C (97.7 F) 36.4 C (97.5 F) 36.4 C (97.5 F) Resp 18 18 18 19 18 Height (in) 1.803 m (5' 11 ) 1.803 m (5' 10.98 ) Weight (lb) 212 212 211.8 214 BMI 29.57 kg/m2 29.58 kg/m2 29.54 kg/m2 29.85 kg/m2 BSA (m2) 2.2 m2 2.19 m2 2.19 m2 2.21 m2 Current Outpatient Medications Medication Instructions bumetanide (BUMEX) 1 mg, oral, 2 times daily (morning and late afternoon) Bydureon BCise 2 mg/0.85 mL auto-injector Inject 2 mg under the skin 1 (one) time per week in the web development director.. cholecalciferol (VITAMIN D-3) 5,000 Units, oral, Daily colesevelam (Welchol) 625 mg tablet 6 tablets, oral, Daily, Take with meal(s) and a liquid. dutasteride (AVODART) 0.5 mg, oral, Daily Eliquis 5 mg, oral, 2 times daily folic acid (Folvite) 800 mcg tablet 1 tablet, oral, Daily levothyroxine (SYNTHROID, LEVOXYL) 50 mcg, oral, Daily, 1 tab wed-wed and Wednesday take 2 tabs lidocaine (Lidoderm) 5 % patch 1 patch, transdermal, Daily, Remove & discard patch within 12 hours or as directed by MD. Place on lower back metFORMIN (GLUCOPHAGE) 850 mg, oral, Nightly, take with evening meal metoprolol succinate XL (TOPROL-XL) 50 mg, oral, Daily montelukast (SINGULAIR) 10 mg, oral, 4 times weekly, MWFSu oxyCODONE-acetaminophen (Percocet) 5-325 mg tablet 1 tablet, oral, Every 4 hours PRN pantoprazole (PROTONIX) 40 mg, oral, 2 times daily, Do not crush, chew, or split. polysaccharide iron complex 180 mg iron capsule 1 capsule, oral, Daily with evening meal rosuvastatin (CRESTOR) 10 mg, oral, 4 times weekly, MWFSu tamsulosin (FLOMAX) 0.4 mg, oral, Nightly Verquvo 10 mg, oral, Daily 83 year old male with PMH of HTN, DM, HLD, A-fib, sick sinus syndrome s/p pacemaker, RA, HFrEF, CAD, GUNNER (not using CPAP), chronic respiratory failure due to recurrent admission from [facility] needing o2 2L, and severe aortic stenosis. Patient currently undergoing TAVR procedure work up as outpatient with the Structural Heart team. Patient recently presented to OSH with ADHF, recent fall without any syncopal event per pt statement secondary to BLE weakness, and acute anemia with + occult stool, and required 2 units of prbc, GI was consulted with no intervention at the time thought due to AVM and hgb was stable post transfusion. Now transfer to [facility] for further management of his ADHF symptoms and evaluation by GI team of his acute blood loss anemia. Plan: Patient's TAVR work up is completed. Now pending acute anemia work up: please consult GI and follow up with hgb trends Patient was noted to have L atrium appendage thrombus, due to Acute anemia work up unable to tolerate AC at this time. Continue to optimized ADHF symptoms per BP and HR and kidney function tolerance. TAVR procedure scheduling TBD. We will discuss this patient's case at our Valve Team meeting with representatives from Structural Heart and Cardiac Surgery. We appreciate the ability to participate in the patient care Please page [phone] if further questions and concerns. MARGARITA John Associated Order(s): IP CONSULT TO GASTROENTEROLOGY Images from the original note were not included. [facility] INITIAL CONSULT NOTE Source of Information: The source of the history was patient and chart review Consult requested by: Service: Cardiology Reason for Consult: Anemia Admission Chief Complaint: HFrEF exacerbation SUBJECTIVE HPI: Shahid Sanchez is a 83 y.o. male w/PMH of Afib, sick sinus syndrome s/p pacemaker, HFrEF severe aortic stenosis, CAD chronic respiratory failure due to CHF on 2.5L oxygen, GUNNER not using CPAP, colon cancer s/p resection directly admitted for HFrEF exacerbation, anemia and possible expedited TAVR. Recent admission at [facility] (10/19-10/25) for weakness. Found to have acute on chronic anemia of Hb 7.4 from baseline 8-9 requiring 2U pRBC to which pt responded appropriately. FOB positive. GI was consulted but EGD was deferred as felt to be to high risk for endoscopy locally and recommended at tertiary center. Eliquis was held since the DC. On admission to [facility], Hb 9.1-->9.7. UN 37. PT denies overt signs of GI bleed. Reports had one day of dark stool while being admitted at [facility] but resolved. Denies taking eliquis. Other pertinent lab; Ferritin 496 (10/31), Tsat 24 (8/), MCV 97. Reports that he had EGD and colonoscopy as a work up for TAVR at [place]. Does not recall details. Also reports history of colon cancer s/p colonic resection about 3 feet. No requirement of chemotherapy. Repeat colonoscopy most recently 2 years ago was unremarkable. ROS: Complete review of systems obtained, negative unless otherwise indicated above. No Known Allergies Past Medical History: Diagnosis Date Atrial fibrillation (Multi) BPH (benign prostatic hyperplasia) Cancer (Multi) CHF (congestive heart failure) (Multi) Chronic kidney disease Chronic UTI Colon cancer (Multi) Diabetes mellitus (Multi) Hearing impaired Heart murmur Heart valve disease Hyperlipidemia Hypertension Hypothyroidism Rheumatoid arthritis (Multi) Sleep apnea Past Surgical History: Procedure Laterality Date CARDIAC CATHETERIZATION CAROTID ARTERY ANGIOPLASTY CATARACT EXTRACTION W/ INTRAOCULAR LENS IMPLANT COLON SURGERY COLON SURGERY partial surgical removal of colon COLONOSCOPY ELBOW SURGERY Bilateral ELBOW SURGERY GALLBLADDER SURGERY INSERT / REPLACE / REMOVE PACEMAKER KNEE SURGERY Bilateral PACEMAKER PLACEMENT ROTATOR CUFF REPAIR Bilateral SHOULDER OPEN ROTATOR CUFF REPAIR Bilateral TOTAL KNEE ARTHROPLASTY Bilateral Family History Problem Relation Name Age of Onset Cancer Mother Diabetes type I Father Cancer Sister Heart failure Brother Social History Social History Narrative Not on file @SOCX2@ Medications: bumetanide, 1 mg, oral, BID cholecalciferol, 5,000 Units, oral, Daily docusate sodium, 100 mg, oral, BID finasteride, 5 mg, oral, Daily folic acid, 800 mcg, oral, Daily insulin lispro, 0-5 Units, subcutaneous, TID iron polysaccharides, 150 mg, oral, Daily with evening meal [START ON 11/07/2023] levothyroxine, 100 mcg, oral, Every Wednesday levothyroxine, 50 mcg, oral, Once per day on Wednesday lidocaine, 1 patch, transdermal, Daily metoprolol succinate XL, 50 mg, oral, Daily montelukast, 10 mg, oral, Once per day on Wednesday pantoprazole, 40 mg, oral, BID rosuvastatin, 5 mg, oral, Nightly tamsulosin, 0.4 mg, oral, Nightly vericiguat, 10 mg, oral, Daily PRN medications: acetaminophen, dextrose, dextrose, glucagon, glucagon, melatonin, oxyCODONE-acetaminophen EXAM Vital signs: 11/02/2023 12:00 AM 11/02/2023 5:00 AM 11/02/2023 5:29 AM 11/02/2023 8:04 AM 11/02/2023 11:43 AM 11/02/2023 3:51 PM 11/02/2023 8:04 PM Vitals Systolic 114 126 145 115 122 129 Diastolic 46 51 51 43 58 57 Heart Rate 70 69 65 68 68 70 Temp 36.5 C (97.7 F) 36.4 C (97.5 F) 36.4 C (97.5 F) 36.3 C (97.3 F) 36.3 C (97.3 F) 36.3 C (97.3 F) Resp 18 19 18 17 20 19 Weight (lb) 214 BMI 29.85 kg/m2 BSA (m2) 2.21 m2 Physical Exam General: NAD, AA&O x 3, frail appearing Eyes: EOMI, PERRLA ENT: MMM Heart: RRR Lungs: No respiratory distress, on NC Abdomen: Soft, non tender, non distended Skin: No jaundice Neuro: Appropriately responds to questions/commands DATA Labs Results for orders placed or performed during the hospital encounter of 11/01/23 (from the past 24 hour(s)) ECG 12 Lead Result Value Ref Range Ventricular Rate 70 BPM Atrial Rate 73 BPM QRS Duration 158 ms QT Interval 448 ms QTC Calculation(Bazett) 483 ms R [place] -60 degrees T [place] 109 degrees QRS Count 11 beats Q Onset 214 ms T Offset 438 ms QTC Frederic[place] 471 ms CBC Result Value Ref Range WBC 5.4 4.4 - 11.3 x10*3/uL nRBC 0.0 0.0 - 0.0 /100 WBCs RBC 2.93 (L) 4.50 - 5.90 x10*6/uL Hemoglobin 9.1 (L) 13.5 - 17.5 g/dL Hematocrit 27.7 (L) 41.0 - 52.0 % MCV 95 80 - 100 fL MCH 31.1 26.0 - 34.0 pg MCHC 32.9 32.0 - 36.0 g/dL RDW 15.8 (H) 11.5 - 14.5 % Platelets 383 150 - 450 x10*3/uL Renal Function Panel Result Value Ref Range Glucose 130 (H) 74 - 99 mg/dL Sodium 140 136 - 145 mmol/L Potassium 3.6 3.5 - 5.3 mmol/L Chloride 97 (L) 98 - 107 mmol/L Bicarbonate 32 21 - 32 mmol/L Anion Gap 15 10 - 20 mmol/L Urea Nitrogen 41 (H) 6 - 23 mg/dL Creatinine 1.27 0.50 - 1.30 mg/dL eGFR 56 (L) >60 mL/min/1.73m*2 Calcium 8.4 (L) 8.6 - 10.6 mg/dL Phosphorus 2.5 2.5 - 4.9 mg/dL Albumin 3.3 (L) 3.4 - 5.0 g/dL Magnesium Result Value Ref Range Magnesium 1.51 (L) 1.60 - 2.40 mg/dL Coagulation Screen Result Value Ref Range Protime 13.1 (H) 9.8 - 12.8 seconds INR 1.2 (H) 0.9 - 1.1 aPTT 37 27 - 38 seconds B-type natriuretic peptide Result Value Ref Range BNP 417 (H) 0 - 99 pg/mL Type and screen Result Value Ref Range ABO TYPE AB Rh TYPE NEG ANTIBODY SCREEN NEG Lactate Result Value Ref Range Lactate 1.9 0.4 - 2.0 mmol/L Hemoglobin A1c Result Value Ref Range Hemoglobin A1C 6.9 (H) see below % Estimated Average Glucose 151 Not Established mg/dL Iron and TIBC Result Value Ref Range Iron 63 35 - 150 ug/dL UIBC 196 110 - 370 ug/dL TIBC 259 240 - 445 ug/dL % Saturation 24 (L) 25 - 45 % Ferritin Result Value Ref Range Ferritin 496 (H) 20 - 300 ng/mL TSH with reflex to Free T4 if abnormal Result Value Ref Range Thyroid Stimulating Hormone 8.94 (H) 0.44 - 3.98 mIU/L Thyroxine, Free Result Value Ref Range Thyroxine, Free 1.32 0.78 - 1.48 ng/dL POCT GLUCOSE Result Value Ref Range POCT Glucose 189 (H) 74 - 99 mg/dL POCT GLUCOSE Result Value Ref Range POCT Glucose 135 (H) 74 - 99 mg/dL Imaging NA GI Procedures NA ASSESSMENT / PLAN Assessment and Recommendations: Shahid Sanchez is a 83 y.o. male w/PMH of Afib, sick sinus syndrome s/p pacemaker, HFrEF severe aortic stenosis, CAD chronic respiratory failure due to CHF on 2.5L oxygen, GUNNER not using CPAP, colon cancer s/p resection directly admitted for HFrEF exacerbation, anemia and possible expedited TAVR. GI was consulted for acute on chronic anemia. Anemia is combination of BARBARA, ACD, or hemolysis (aortic stenosis). Cyndie had held post recent admission at [facility] requiring 2U pRBC for Hb drop. Although pt has no overt signs of GI bleed at the moment, giving that he is anticipated to be back on anti-platelet/anti-coagulation it would be reasonable to plan EGD. Pt appears frail to proceed colonoscopy. Also reports that he had surveillance colonoscopy post resection which reportedly unremarkable. Plan -EGD 11/02 with anesthesia -->NPO 11/02 0001. I placed NPO myself -Obtain collateral reg EGD/Colonoscopy reports -c/w PPI BID -Add LDH/T-betsey/Hapto to next set of lab PRETTY per primary team. ------ Marjan Starkey MD Gastroenterology Fellow After 5PM and on Weekends, please page on-call fellow. Case discussed with service attending Dr. Garcia Final recommendations pending attending attestation. Associated attestation - Tristian Garcia MD PhD - 11/10/2023 11:36 AM EDT I saw and evaluated the patient. I personally obtained the rose and critical portions of the history and physical exam or was physically present for rose and critical portions performed by the trainee. I agree with the trainee's medical decision making as described in the trainee's note. Tristian Garcia MD documented in this encounter [facility] Work Phone: 10-26-2023 Progress note Note Date/Time October 26, 2023 10:40am [facility] [address] [place] [address] Cardiology Progress Note Signed Patient: Shahid Sanchez MR#: [id number] : 1940 Acct:[id number] Age/Sex: 83 / M Adm Date: 4 Loc: 4 Room: [address] [place] [address] Type: ADM IN Attending Dr: William Smalls DO Copies to: ~ Date of Service: 10/26/2023 Subjective Interval history: Patient feels better. Marked improvement of his lower extremity edema. Hemoglobin stable at 10. Creatinine 1.5 Exam Physical Exam Vital Signs: Temp Pulse Resp BP Pulse Ox O2 Del Method O2 Flow Rate 97.4 F L 71 98 H 119/61 98 Nasal Cannula 3 10/26/23 07:28 10/26/23 07:28 10/26/23 07:28 10/26/23 07:28 10/26/23 07:28 10/26/23 07:35 10/26/23 07:35 Eyes General: appearance normal, both eyes and all related structures Pupils: PERRL Neck Neck: normal visual inspection, supple and no lymphadenopathy noted Neck mass: No Thyroid: thyroid normal Carotids: normal carotid upstroke Chest Chest palpation & inspection: normal inspection of the chest Resp Effort & Inspection: normal respiratory effort Auscultation: rales and rhonchi Cardio Palpation: normal PMI Rhythm: abnormal rhythm irregularly irregular Heart Sounds: S1 normal, S2 normal and murmur systolic III/ GI Palpation: soft and no hepatosplenomegaly Percussion: normal to percussion Auscultation: normal bowel sounds Skin General: dry skin and other (Hyperpigmentation of the lower extremity below the knee) Extrem General: full ROM, capillary refill normal and pedal edema bilaterally Location:of the leg Severity: 2+ Objective Labs 10/26/23 05:27 10/26/23 05:27 Labs: Laboratory Results - last 24 hr 10/25/23 10/25/23 10/26/23 11:46 16:36 05:27 Corrected WBC 6.5 RBC 2.73 L Hgb 8.9 L Hct 25.4 L MCV 93.0 MCH 32.7 MCHC 35.1 RDW 16.6 H Plt Count 264 MPV 7.3 PHA Creatinine Clear 44.40 Sodium 138 Potassium 3.4 L Chloride 96 L Carbon Dioxide 31.2 H Anion Gap 14.2 BUN 90 H Creatinine 1.50 H Est GFR (CKD-EPI) 46.195 Glucose 116 H POC Glucose 287 194 POC Glucose Comment Glu2: cleaned meter Calcium 8.5 L Magnesium 1.6 L A&P - Cardiology (1) Acute anemia: Code(s): D64.9 - Anemia, unspecified Plan Assessment 1. Evidence of acute GI bleed and anemia seen by GI felt to be high risk for endoscopy locally. Hemoglobin stable 2. Chronic systolic dysfunction and aortic valve disease. SEBASTIÁN showed severe aortic stenosis with LV systolic dysfunction. 3. 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 Severe aortic stenosis patient is scheduled to undergo TAVR early October 5. Sick sinus syndrome status post permanent pacemaker implantation 6. 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 Long-term anticoagulation due to atrial fibrillation recent documentation ofleft atrial appendage organized thrombus. Off anticoagulation due to severe GI bleed 8. Pulmonary hypertension 9. History of colon cancer status postresection with no recurrence 10.History of hypertension 11.Acute on chronic kidney disease creatinine slowly improving. Creatinine downto 1.5 Plan 1- Continue to hold Eliquis. May need Watchman down the road. We may consider restarting that down the road if no further bleeding and hemoglobin stayed 2.- He is due for TAVR at on Nov 04. Patient is markedly improved and I believe he can be discharged home. Diuretics per renal service Documented By: Joby Pinedo MD 10/26/23 1039 Signed By: <Electronically signed by MD Joby Pinedo> 10/26/23 1041 [facility] Work Phone: 1(794) 778-265507-29-2024 Progress note Author William Smalls [facility] October 25, 2023 4:27pm Note Date/Time October 25, 2023 4:25 pm [facility] [address] [place] [address] Hospitalist Progress Note Signed Patient: Shahid Sanchez MR#: [id number] : 1940 Acct:[id number] Age/Sex: 83 / M Adm Date: 4 Loc: Room: [address] [place] [address] Type: ADM IN Attending Dr: William Smalls DO Copies to: ~ Date of Service: 10/25/2023 Subjective Subjective Narrative: Seen and evaluated, patient currently sitting up in the chair and is eating his lunch. He denies any complaints, I did explain the complexity of his case to which she did seem quite familiar with. He has an appointment on November 04 for his TAVR. I did explain that cardiology had cleared him this morning for discharge but I like to see his kidney function returning closer to normal priorto discharge was agreeable with this method. Exam Physical Exam Vital Signs: Temp Pulse Resp BP Pulse Ox O2 Del Method O2 Flow Rate 97.5 F L 69 17 128/60 100 Nasal Cannula 3 10/25/23 12:00 10/25/23 12:00 10/25/23 12:00 10/25/23 12:10/25/23 12:00 10/25/23 16:00 10/25/23 16:00 Narrative: General: Awake alert, no acute distress HEENT: head atraumatic, normocephalic, moist mucous membranes Neck: supple no masses, no lymphadenopathy CVS: regular rate and rhythm, flow murmur noted throughout his precordium Respiratory: clear to auscultation bilaterally, no wheezing or crackles, symmetric expansion GI: soft, nondistended, nontender, positive bowel sounds with no organomegaly Extremity: moves all extremities, no restrictions of movements, no calf tenderness, no edema Neuro: AOx3, CN II-VII intact. Moves all extremities in all planes of motion. Skin: dry, intact no rashes or lesions Objective Lab Results 10/24/23 05:20 10/25/23 05:26 Meds Allergies and Active Meds Allergies No Known Allergies Allergy (Verified 10/19/23 13:01) Active Meds: Active Medications Generic Name Dose Route Start Last Admin Trade Name Freq PRN Reason Stop Dose Admin Acetaminophen 650 mg 10/19/23 16:02 10/23/23 16:57 Acetaminophen 325 Mg Tablet PO 10/18/24 16:01 650 mg Q6HR PRN Administration Pain Scale 1 - 3 or fever Bumetanide 1 mg 10/24/23 08:00 10/25/23 08:34 Bumetanide 1 Mg Tablet PO 10/23/24 07:59 1 mg BID@0800,1600 APPLE Administration Dextrose 0 gm 10/20/23 09:51 Dextrose 50% In Water 25 Gm/50 Ml Syringe IV-PUSH 10/19/24 09:50 PRN PRN Hypoglycemia Docusate Sodium 200 mg 10/20/23 13:43 Docusate 100 Mg Capsule PO 10/19/24 13:42 BID PRN Constipation Glucose 0 gm 10/20/23 09:51 Dextrose 40% Gel 15 Gm Tube PO 10/19/24 09:50 PRN PRN Hypoglycemia Hydromorphone HCl 0.5 mg 10/22/23 03:06 10/23/23 22:40 Hydromorphone 0.5 Mg/0.5 Ml Syringe IV-PUSH 0.5 mg Q4H PRN Administration Pain Scale 7 - 10 Insulin Aspart 0 units 10/20/23 12:00 10/25/23 12:23 Insulin Aspart 300 Units/3 Ml Insuln.Pen SUBCUT 10/19/24 11:59 5 units TID.WM.HS APPLE Administration Protocol Pantoprazole Sodium 40 mg 10/25/23 21:00 Pantoprazole 40 Mg Tablet.Dr PO 10/24/24 20:59 BID APPLE Prochlorperazine Edisylate 5 mg 10/19/23 16:02 Prochlorperazine Edisylate 10 Mg/2 Ml Vial IV-PUSH 10/18/24 16:01 Q4H PRN Nausea And Vomiting Sennosides 17.6 mg 10/20/23 13:43 Sennosides Syrup 8.8 Mg/5 Ml Udc PO 10/19/24 21:59 HS PRN constipation Sodium Chloride 0 ml 10/19/23 13:00 10/25/23 08:47 Sodium Chloride 0.9 % 10 Ml Syringe IV-PUSH 10/18/24 12:59 10 ml PRN PRN Administration Flush Tramadol HCl 50 mg 10/24/23 10:59 Tramadol 50 Mg Tablet PO 04/21/24 10:58 Q6H PRN Pain Scale 4 - 7 A&P - Hospitalist Assessment/Plan (1) Acute hyponatremia: (2) Acute anemia: (3) Acute kidney injury superimposed on CKD: (4) Chronic systolic dysfunction of left ventricle: (5) Severe aortic stenosis: (6) A-fib: Plan Acute blood loss anemia Symptomatic anemia -Stable hemodynamics -Transfuse as needed to keep Hb above 8 or symptomatic anemia or ongoing bleeding - his hemoglobin has stabilized -Continue Protonix BID -Antiemetics IV/IM as directed -Hold antiplatelets and anticoagulation -Avoid NSAIDs -At this point, no evidence of overt GI bleed. Having Brown BM while here. -GI consulted, patient likely has AVMs per their note. No indication for EGD atthis point in time. -Monitor while here for any overt GI bleed. Monitor H/H. -Monitor on telemetry MAYLIN on CKD Hypervolemic hyponatremia -kidney function improving with diuresis -Has been transition to scheduled PO Lasix per nephrology -Nephrology input appreciated. Acute on chronic systolic CHF L Atrial Thrombus on AC Severe pulmonary hypertension Sick sinus syndrome status post pacemaker Atrial fibrillation Single-vessel CAD Severe aortic stenosis -On PO diuresis -Monitor I/Os -Healthy heart diet -Monitor on tele -Hold AC for now -Cardiology input appreciated. Holding Eliquis for now. Watchman device down the road. Patient might require GI evaluation prior to his TAVR at -Risks of embolic strokes been discussed with patient and he verbalized understanding and in agreement with this plan Home medications resumed as appropriate Diet: soft GI DVT ppx: SCDs GI ppx: PPI Code status: Full. Discussed with patient regarding CODE STATUS, he wishes to be DNR however his to me that his daughter is his power of senior trial attorney and would like to discuss further with him to confirm his wishes we will keep him full code for now. Status: inpatient Anticipate discharge tomorrow pending renal function Documented By: William Smalls DO 10/25/231621 Signed By: <Electronically signed by William Smalls DO> 10/25/237 [facility] Work Phone: [phone]) [phone] Progress note Author Lamont Spicer [facility] October 25, 2023 2:12pm Note Date/Time October 25, 2023 2:12 pm [facility] [address] [place] [address] Nephrology Progress Note Signed Patient: Shahid Sanchez MR#: [id number] : 1940 Acct:[id number] Age/Sex: 83 / M Adm Date: 4 Loc: 4 Room: 2M6064-5 Type: ADM IN Attending Dr: William Smalls DO Copies to: ~ Date of Service: 10/25/2023 Subjective Subjective Narrative: This is a 83-year-old old male with a medical history of HTN, DM, HLD, A-fib, sick sinus syndrome s/p pacemaker, RA, HF R EF, severe aortic stenosis, CAD was presented to the hospital after mechanical fall. Patient in the emergency room was found to have acute on chronic anemia with hemoglobin 7.4 g/dL, MAYLIN with elevated serum creatinine 3.4 mg/dL and hyponatremia with serum sodium 127 mmol/L. Patient was tested positive for stool occult blood test. He was transfused 1 unit of PRBC and was started on IV fluid. He also had a CAT scan abdomen pelvis and chest x-ray which showed finding concerning for CHF.Patient was recently admitted at [facility] for acute CHF exacerbation and respiratory failure. He had echocardiogram which showed EF 35 to 40% and severe . Patient was seen by the cardiology and had SEBASTIÁN which showed severe aortic stenosis moderate to severe pulmonary hypertension. He hada cardiac catheterization which showed single- vessel disease with collaterals. Patient diuretic regimen was also adjusted by cardiology. He was discharged on oral Lasix and spironolactone. Nephrology is consulted for hyponatremia and AKImanagement. Interim history Patient admitted for MAYLIN likely due to cardiorenal syndrome. Initially was treated with IV Lasix drip and had a good urine output. Patient was switched to Bumex 1 mg twice daily yesterday. He had a disproportionally high BUN likely due to diuresis. He was transfused PRBCs and hemoglobin has improved and remained stable. Patient was seen and examined at bedside. He denies any chest pain palpitation nausea vomiting or dizziness cough or shortness of breath. Patient remained stable at liters per minute nasal cannula Exam Physical Exam Vital Signs: Temp Pulse Resp BP Pulse Ox O2 Del Method O2 Flow Rate 97.5 F L 69 17 128/60 100 Nasal Cannula 3 10/25/23 12:10/25/23 12:10/25/23 12:10/25/23 12:10/25/23 12:10/25/23 12:10/25/23 12:00 Narrative: General: No acute distress Head :atraumatic normocephalic Eyes: PERRLA. Neck: no JVD no bruit. Heart: S1-S2. RRR Respiratory: Clear to auscultation. No wheezing. No crackles Abdomen: Soft, positive bowel sounds,no tenderness. Neurology: Awake alert oriented x3. No focal deficits Extremity. No cyanosis. +1 edema of lower extremities Skin: No skin rash Objective Intake and Output I&O: Intake & Output 10/22/23 10/23/23 10/24/23 10/25/23 23:59 23:59 23:59 23:59 Intake Total 510 / 510 500 / 500 925 / 925 450 / 450 Output Total 4100 / 4100 2500 / 2500 1000 / 1000 1150 / 1150 Balance -3590 / -3590 -2000 / -2000 -75 / -75 -700 / -700 Weight 232 lb 5.875 oz 228 lb 2.855 oz 220 lb 7.396 oz Meds and Allergies Meds: Active Medications Acetaminophen (Acetaminophen 325 Mg Tablet) 650 mg PO Q6HR PRN PRN Reason: Pain Scale 1 - 3 or fever Stop: 10/18/24 16:01 Last Admin: 10/23/23 16:57 Dose: 650 mg Bumetanide (Bumetanide 1 Mg Tablet) 1 mg PO BID@0800,1600 APPLE Stop: 10/23/24 07:59 Last Admin: 10/25/23 08:34 Dose: 1 mg Dextrose (Dextrose 50% In Water 25 Gm/50 Ml Syringe) 0 gm IV-PUSH PRN PRN PRN Reason: Hypoglycemia Stop: 10/19/24 09:50 Docusate Sodium (Docusate 100 Mg Capsule) 200 mg PO BID PRN PRN Reason: Constipation Stop: 10/19/24 13:42 Glucose (Dextrose 40% Gel 15 Gm Tube) 0 gm PO PRN PRN PRN Reason: Hypoglycemia Stop: 10/19/24 09:50 Hydromorphone HCl (Hydromorphone 0.5 Mg/0.5 Ml Syringe) 0.5 mg IV-PUSH Q4H PRN PRN Reason: Pain Scale 7 - 10 Last Admin: 10/23/23 22:40 Dose: 0.5 mg Insulin Aspart (Insulin Aspart 300 Units/3 Ml Insuln.Pen) 0 units SUBCUT TID..[facility]; Protocol Stop: 10/19/24 11:59 Last Admin: 10/25/23 12:23 Dose: 5 units Pantoprazole Sodium (Pantoprazole 40 Mg Tablet.Dr) 40 mg PO BID APPLE Stop: 10/24/24 20:59 Prochlorperazine Edisylate (Prochlorperazine Edisylate 10 Mg/2 Ml Vial) 5 mg IV- PUSH Q4H PRN PRN Reason: Nausea And Vomiting Stop: 10/18/24 16:01 Sennosides (Sennosides Syrup 8.8 Mg/5 Ml Udc) 17.6 mg PO HS PRN PRN Reason: constipation Stop: 10/19/24 21:59 Sodium Chloride (Sodium Chloride 0.9 % 10 Ml Syringe) 0 ml IV-PUSH PRN PRN PRN Reason: Flush Stop: 10/18/24 12:59 Last Admin: 10/25/23 08:47 Dose: 10 ml Tramadol HCl (Tramadol 50 Mg Tablet) 50 mg PO Q6H PRN PRN Reason: Pain Scale 4 - 7 Stop: 04/21/24 10:58 Allergies No Known Allergies Allergy (Verified 10/19/23 13:01) Results - Nephrology Labs 10/24/23 05:20 10/25/23 05:26 Labs: 10/25/23 05:26 BUN 107 H Creatinine 1.96 H Radiology Impressions Impressions - last 24 hours: Any impression(s) listed above is documentation that was entered by the reading physician into a diagnostic report(s) for Shahid Sanchez. I have reviewed the report(s) and am incorporating any findings in the treatment plan of this patient where applicable. A&P - Nephrology Assessment/Plan (1) Acute kidney injury superimposed on CKD: Assessment/Problem Details: He has MAYLIN on CKD likely due to the cardiorenal syndrome. He has no evidence ofobstructive uropathy on CAT scan. (2) Hyponatremia: Assessment/Problem Details: He has a hypervolemic hyponatremia. Serum sodium level is correcting with diuresis (3) Acute on chronic anemia: Assessment/Problem Details: Patient has acute on chronic anemia possibly due to occult GI bleed. He was transfused 1 unit of PRBC. (4) Acute on chronic systolic (congestive) heart failure: Assessment/Problem Details: Patient appears to have acute on chronic congestive heart failure likely due to thus symptomatic anemia (5) Severe aortic stenosis: Assessment/Problem Details: He has a severe aortic stenosis. Cardiology recommended outpatient TAVR. Plan * Will continue oral Bumex 1 mg twice daily. He likely has a disproportionally high BUN due to diuresis. His creatinine is trending down and is making adequate output. * Continue to hold home dose of the valsartan and spironolactone. * Monitor H&H and transfuse as needed to keep the hemoglobin greater than 8 g/dL. * Check renal function daily and monitor input output * Continue DM management as per the primary hospitalist team. The goal of blood sugar is between 100 to 150 mg/dL. * Check renal function daily and monitor for output Documented By: Lamont Spicer MD 10/25/23 1409 Signed By: <Electronically signed by Lamont Spicer MD> 10/25/23 1413 [facility] Work Phone: [phone]) [phone] Progress note Author Joby Pinedo [facility] October 25, 2023 1:18pm Note Date/Time October 25, 2023 1:12 pm [facility] [address] [place] [address] Cardiology Progress Note Signed Patient: Shahid Sanchez MR#: [id number] : 1940 Acct:[id number] Age/Sex: 83 / M Adm Date: 4 Loc: Room: [address] [place] [address] Type: ADM IN Attending Dr: William Smalls DO Copies to: ~ Date of Service: 10/25/2023 Subjective Interval history: Patient feels better. Marked improvement of his lower extremity edema. Hemoglobin stable at 10 Exam Physical Exam Vital Signs: Temp Pulse Resp BP Pulse Ox O2 Del Method O2 Flow Rate 98.8 F 69 17 129/67 95 Nasal Cannula 3 10/25/23 08:00 10/25/23 08:00 10/25/23 08:00 10/25/23 08:00 10/25/23 08:00 10/25/23 08:00 10/25/23 08:00 Eyes General: appearance normal, both eyes and all related structures Pupils: PERRL Neck Neck: normal visual inspection, supple and no lymphadenopathy noted Neck mass: No Thyroid: thyroid normal Carotids: normal carotid upstroke Chest Chest palpation & inspection: normal inspection of the chest Resp Effort & Inspection: normal respiratory effort Auscultation: rales and rhonchi Cardio Palpation: normal PMI Rhythm: abnormal rhythm irregularly irregular Heart Sounds: S1 normal, S2 normal and murmur systolic III/ Skin General: dry skin and other (Hyperpigmentation of the lower extremity below the knee) Extrem General: full ROM, capillary refill normal and pedal edema bilaterally Location:of the leg Severity: 2+ Objective Labs 10/24/23 05:20 10/25/23 05:26 Labs: Laboratory Results - last 24 hr 10/24/23 10/24/23 10/25/23 16:32 20:47 05:26 PHA Creatinine Clear 34.44 Sodium 133 L Potassium 3.3 L Chloride 93 L Carbon Dioxide 28.6 Anion Gap 14.7 BUN 107 H Creatinine 1.96 H Est GFR (CKD-EPI) 33.511 Glucose 138 H POC Glucose 310 234 POC Glucose Comment Glu2: cleaned meter Calcium 8.1 L Magnesium 1.6 L 10/25/23 10/25/23 07:23 11:46 PHA Creatinine Clear Sodium Potassium Chloride Carbon Dioxide Anion Gap BUN Creatinine Est GFR (CKD-EPI) Glucose POC Glucose 162 287 POC Glucose Comment Calcium Magnesium A&P - Cardiology (1) Acute anemia: Code(s): D64.9 - Anemia, unspecified Plan Assessment 1. Evidence of acute GI bleed and anemia seen by GI felt to be high risk for endoscopy locally 2. Chronic systolic dysfunction and aortic valve disease. SEBASTIÁN showed severe aortic stenosis with LV systolic dysfunction. 3. 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 Severe aortic stenosis patient is scheduled to undergo TAVR early October 5. Sick sinus syndrome status post permanent pacemaker implantation 6. 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 Long-term anticoagulation due to atrial fibrillation recent documentation ofleft atrial appendage organized thrombus. Off anticoagulation due to severe GI bleed 8. Pulmonary hypertension 9. History of colon cancer status postresection with no recurrence 10.History of hypertension 11.Acute on chronic kidney disease creatinine slowly improving. Creatinine downto 1.9 Plan 1- Continue to hold Eliquis. May need Watchman down the road. We may consider restarting that down the road if no further bleeding and hemoglobin stayed - He is due for TAVR at on Nov 04. Patient is markedly improved and I believe he can be discharged home. Diuretics per renal service -I will follow on as-needed basis Documented By: Joby Pinedo MD 10/25/23 1311 Signed By: <Electronically signed by MD Joby Pinedo> 10/25/23 1318 [facility] Work Phone: 1([phone]) [phone] Progress note Author Kelvin Qureshi [facility] October 24, 2023 3:36pm Note Date/Time October 24, 2023 3:36 pm [facility] [address] [place] [address] Cardiology Progress Note Signed Patient: Shahid Sanchez MR#: [id number] : 1940 Acct:[id number] Age/Sex: 83 / M Adm Date: 4 Loc: Room: [address] [place] [address] Type: ADM IN Attending Dr: Mary Colin MD Copies to: ~ Date of Service: 10/24/2023 Subjective Interval history: Patient feels better. Hemoglobin is up to 10s sCr continues to improve. Exam Physical Exam Vital Signs: Temp Pulse Resp BP Pulse Ox O2 Del Method O2 Flow Rate 98.2 F 69 18 116/59 L 95 Nasal Cannula 3 10/23/23 20:00 10/24/23 11:48 10/24/23 11:48 10/24/23 11:48 10/24/23 11:48 10/24/23 11:48 10/24/23 11:48 Const General: cooperative and other (Skin color is pale with edema conjunctiva) HEENT Head: atraumatic Mouth: oral mucosae normal Eyes General: appearance normal, both eyes and all related structures Pupils: PERRL Neck Neck: normal visual inspection, supple and no lymphadenopathy noted Neck mass: No Thyroid: thyroid normal Carotids: normal carotid upstroke Chest Chest palpation & inspection: normal inspection of the chest Resp Effort & Inspection: normal respiratory effort Auscultation: rales and rhonchi Cardio Palpation: normal PMI Rhythm: abnormal rhythm irregularly irregular Heart Sounds: S1 normal, S2 normal and murmur systolic III/ GI Palpation: soft and no hepatosplenomegaly Percussion: normal to percussion Auscultation: normal bowel sounds Skin General: dry skin and other (Hyperpigmentation of the lower extremity below the knee) Neuro General: patient alert, patient awake, patient oriented x3, tone normal and moves all extremities Extrem General: full ROM, capillary refill normal and pedal edema bilaterally Location:of the leg Severity: 1+ Psych Mental Status: mental status grossly normal Objective Labs 10/24/23 05:20 10/24/23 05:20 Labs: Laboratory Results - last 24 hr 10/23/23 10/23/23 10/24/23 17:08 20:31 05:20 Corrected WBC 13.8 H Uncorrected WBC Count 13.8 H RBC 3.15 L Hgb 10.1 L Hct 29.0 L MCV 92.1 MCH 32.1 MCHC 34.8 RDW 16.5 H Plt Count 222 MPV 7.9 Neut % (Auto) 86.1 Lymph % (Auto) 5.2 [place] % (Auto) 8.1 Eos % (Auto) 0.4 Baso % (Auto) 0.2 Nucleat RBC Rel Count 0.0 Neut # (Auto) 11.9 H Lymph # (Auto) 0.7 L [place] # (Auto) 1.1 H Eos # (Auto) 0.1 Baso # (Auto) 0.0 PHA Creatinine Clear 30.78 Sodium 131 L Potassium 3.6 Chloride 91 L Carbon Dioxide 27.9 Anion Gap 15.7 H BUN 98 H Creatinine 2.23 H Est GFR (CKD-EPI) 28.704 Glucose 168 H POC Glucose 200 283 POC Glucose Comment Calcium 8.9 10/24/23 11:51 Corrected WBC Uncorrected WBC Count RBC Hgb Hct MCV MCH MCHC RDW Plt Count MPV Neut % (Auto) Lymph % (Auto) [place] % (Auto) Eos % (Auto) Baso % (Auto) Nucleat RBC Rel Count Neut # (Auto) Lymph # (Auto) [place] # (Auto) Eos # (Auto) Baso # (Auto) PHA Creatinine Clear Sodium Potassium Chloride Carbon Dioxide Anion Gap BUN Creatinine Est GFR (CKD-EPI) Glucose POC Glucose 256 POC Glucose Comment Glu2: cleaned meter Calcium A&P - Cardiology (1) Acute anemia: Code(s): D64.9 - Anemia, unspecified Plan Assessment 1. Evidence of acute GI bleed and anemia seen by GI felt to be high risk for endoscopy locally 2. Chronic systolic dysfunction and aortic valve disease. SEBASTIÁN showed severe aortic stenosis with LV systolic dysfunction. 3. 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 Severe aortic stenosis patient is scheduled to undergo TAVR early October 5. Sick sinus syndrome status post permanent pacemaker implantation 6. 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 Long-term anticoagulation due to atrial fibrillation recent documentation ofleft atrial appendage organized thrombus. Off anticoagulation due to severe GI bleed 8. Pulmonary hypertension 9. History of colon cancer status postresection with no recurrence 10. History of hypertension 11. Acute on chronic kidney disease creatinine slowly improving. Creatinine down to 2.9 Plan - Continue to hold Eliquis. May need Watchman down the road. - He is due for TAVR at on Nov 04. May need GI workup ahead of that. GI do not feel comfortable doing endoscopy locally. - Monitor renal fxn. Nephrology on board and are diuresing. Documented By: Kelvin Qureshi MD 09/27 Signed By: <Electronically signed by Kelvin Qureshi MD> 10/24/23 1536 [facility] Work Phone: [phone] 342-815607-28-2024 Progress note Author Mary Colin [facility] October 24, 2023 2:09pm Note Date/Time October 24, 2023 2:09 pm [facility] [address] [place] [address] Hospitalist Progress Note Signed Patient: Shahid Sanchez MR#: [id number] : 1940 Acct:[id number] Age/Sex: 83 / M Adm Date: 4 Loc: 4 Room: 0K2905-8 Type: ADM IN Attending Dr: Mary Colin MD Copies to: ~ Date of Service: 10/24/2023 Subjective Subjective Narrative: Patient was seen evaluated at bedside, he is out of bed to chair, BP stable. He is on 3 L nasal cannula,usually states he is on home oxygen, denies any nausea, vomiting. Diuresing well with improvement in kidney function and volume status, currently on IV Lasix scheduled. Having BMs brown in color. no signs of overt GIbleed at this time. Cardio, nephro and GI inputs appreciated. Hb improved afterblood transfusion and remained stable. Exam Physical Exam Vital Signs: Temp Pulse Resp BP Pulse Ox O2 Del Method O2 Flow Rate 98.2 F 69 18 116/59 L 95 Nasal Cannula 3 10/23/23 20:00 10/24/23 11:48 10/24/23 11:48 10/24/23 11:48 10/24/23 11:48 10/24/23 11:48 10/24/23 11:48 Narrative: Const General: cooperative, more conversant HEENT Normal oropharyngeal mucosa without any ulcers or exudates Eyes: Conjunctiva normal Pulmonary Auscultation: Diminished breath sounds, no crackles, no wheezes Cardiovascular Rate: normal rate Rhythm: regular rhythm Heart Sounds: S1 normal, S2 normal and systolic murmur. GI Inspection: non-distended Palpation: soft, not firm and nontender. No rigidity or rebound. Deferred Neuro General: alert, awake and oriented x3. No obvious new focal deficit Musculoskeletal: normal range of motion Extrem General: no cyanosis, + pedal edema Psych Appearance: appropriate affect. Grossly normal. Objective Lab Results 10/24/23 05:20 10/24/23 05:20 Meds Allergies and Active Meds Allergies No Known Allergies Allergy (Verified 10/19/23 13:01) Active Meds: Active Medications Generic Name Dose Route Start Last Admin Trade Name Freq PRN Reason Stop Dose Admin Acetaminophen 650 mg 10/19/23 16:02 10/23/23 16:57 Acetaminophen 325 Mg Tablet PO 10/18/24 16:01 650 mg Q6HR PRN Administration Pain Scale 1 - 3 or fever Bumetanide 1 mg 10/24/23 08:00 10/24/23 09:47 Bumetanide 1 Mg Tablet PO 10/23/24 07:59 1 mg BID@0800,1600 APPLE Administration Dextrose 0 gm 10/20/23 09:51 Dextrose 50% In Water 25 Gm/50 Ml Syringe IV-PUSH 10/19/24 09:50 PRN PRN Hypoglycemia Docusate Sodium 200 mg 10/20/23 13:43 Docusate 100 Mg Capsule PO 10/19/24 13:42 BID PRN Constipation Glucose 0 gm 10/20/23 09:51 Dextrose 40% Gel 15 Gm Tube PO 10/19/24 09:50 PRN PRN Hypoglycemia Hydromorphone HCl 0.5 mg 10/22/23 03:06 10/23/23 22:40 Hydromorphone 0.5 Mg/0.5 Ml Syringe IV-PUSH 0.5 mg Q4H PRN Administration Pain Scale 7 - 10 Insulin Aspart 0 units 10/20/23 12:00 10/24/23 11:52 Insulin Aspart 300 Units/3 Ml Insuln.Pen SUBCUT 10/19/24 11:59 5 units TID.WM.HS APPLE Administration Protocol Pantoprazole Sodium 40 mg 10/19/23 21:00 10/24/23 09:47 Pantoprazole 40 Mg Vial IV-PUSH 10/18/24 20:59 40 mg BID APPLE Administration Prochlorperazine Edisylate 5 mg 10/19/23 16:02 Prochlorperazine Edisylate 10 Mg/2 Ml Vial IV-PUSH 10/18/24 16:01 Q4H PRN Nausea And Vomiting Sennosides 17.6 mg 10/20/23 13:43 Sennosides Syrup 8.8 Mg/5 Ml Udc PO 10/19/24 21:59 HS PRN constipation Sodium Chloride 0 ml 10/19/23 13:00 10/22/23 17:07 Sodium Chloride 0.9 % 10 Ml Syringe IV-PUSH 10/18/24 12:59 10 ml PRN PRN Administration Flush Sodium Chloride 10 ml 10/19/23 16:02 10/23/23 20:32 Sodium Chloride 0.9 % 10 Ml Vial.Pf INJECTION 10/18/24 16:01 10 ml PRN PRN Administration Dilution Sodium Chloride 10 ml 10/19/23 16:02 Sodium Chloride 0.9 % 10 Ml Syringe IV-PUSH 10/18/24 16:01 PRN PRN Flush Tramadol HCl 50 mg 10/24/23 10:59 Tramadol 50 Mg Tablet PO 04/21/24 10:58 Q6H PRN Pain Scale 4 - 7 A&P - Hospitalist Assessment/Plan (1) Acute hyponatremia: (2) Acute anemia: (3) Acute kidney injury superimposed on CKD: (4) Chronic systolic dysfunction of left ventricle: (5) Severe aortic stenosis: (6) A-fib: Plan Acute blood loss anemia Symptomatic anemia -Stable hemodynamics -Transfuse as needed to keep Hb above 8 or symptomatic anemia or ongoing bleeding -Received 1 unit of blood with improvement in Hb to 8.4, then Hb down to 7.8. added another unit of pRBC given his cardiac hx. Hb improved to 9.5>9.7>10.1. -Continue Protonix BID -Antiemetics IV/IM as directed -Hold antiplatelets and anticoagulation -Avoid NSAIDs -At this point, no evidence of overt GI bleed. Having Brown BM while here. -GI consulted. input appreciated. -Monitor while here for any overt GI bleed. Monitor H/H. -Monitor on telemetry MAYLIN on CKD Hypervolemic hyponatremia -kidney function improving with diuresis -Has been transition to scheduled IV Lasix per nephrology -Nephrology input appreciated. Acute on chronic systolic CHF L Atrial Thrombus on AC Severe pulmonary hypertension Sick sinus syndrome status post pacemaker Atrial fibrillation Single-vessel CAD Severe aortic stenosis -On IV diuresis -Monitor I/Os -Healthy heart diet -Monitor on tele -Hold AC for now -Cardiology input appreciated. Holding Eliquis for now. Watchman device down the road. Patient might require GI evaluation prior to his TAVR at -Risks of embolic strokes been discussed with patient and he verbalized understanding and in agreement with this plan Home medications resumed as appropriate Diet: soft GI DVT ppx: SCDs GI ppx: PPI Code status: Full. Discussed with patient regarding CODE STATUS, he wishes to be DNR however his to me that his daughter is his power of senior trial attorney and would like to discuss further with him to confirm his wishes we will keep him full code for now. Status: inpatient Discussed with patient at bedside. All questions answered. In agreement with theabove plan Patient has been accepted to SNF. Waiting on further improvement in kidney function Recommended GI evaluation prior to his TAVR at Continue current management for now Mary Blackburn MD Internal Medicine Hospitalist Attending Physician Documented By: Mary Colin MD 10/24/23 14 07 Signed By: <Electronically signed by Mary Colin MD> 10/24/23 1409 [facility] Work Phone: [phone]) 172-800707-28-2024 Progress note Author Valerio Saeed [facility] October 24, 2023 10:39am Note Date/Time October 24, 2023 10:3 9am [facility] [address] [place] [address] Nephrology Progress Note Signed Patient: Shahid Sanchez MR#: [id number] : 1940 Acct:[id number] Age/Sex: 83 / M Adm Date: 4 Loc: Room: [address] [place] [address] Type: ADM IN Attending Dr: Mary Colin MD Copies to: ~ Date of Service: 10/24/2023 Subjective Subjective Narrative: This is a 83-year-old old male with a medical history of HTN, DM, HLD, A-fib, sick sinus syndrome s/p pacemaker, RA, HF R EF, severe aortic stenosis, CAD was presented to the hospital after mechanical fall. Patient in the emergency room was found to have acute on chronic anemia with hemoglobin 7.4 g/dL, MAYLIN with elevated serum creatinine 3.4 mg/dL and hyponatremia with serum sodium 127 mmol/L. Patient was tested positive for stool occult blood test. He was transfused 1 unit of PRBC and was started on IV fluid. He also had a CAT scan abdomen pelvis and chest x-ray which showed finding concerning for CHF.Patient was recently admitted at [facility] for acute CHF exacerbation and respiratory failure. He had echocardiogram which showed EF 35 to 40% and severe . Patient was seen by the cardiology and had SEBASTIÁN which showed severe aortic stenosis moderate to severe pulmonary hypertension. He hada cardiac catheterization which showed single- vessel disease with collaterals. Patient diuretic regimen was also adjusted by cardiology. He was discharged on oral Lasix and spironolactone. Nephrology is consulted for hyponatremia and AKImanagement. Interim history Patient admitted for MAYLIN likely due to cardiorenal syndrome. Initially was treated with IV Lasix drip and had a good urine output. It was transition to the intermittent dose of Lasix and he continues have a good urine output with improvement of renal function. He had a disproportionally high BUN likely due to GI bleed. He was transfused PRBCs and hemoglobin has improved. Patient was seen and examined at bedside. He denies any chest pain palpitation nausea vomiting or dizziness cough or shortness of breath. Exam Physical Exam Vital Signs: Temp Pulse Resp BP Pulse Ox O2 Del Method O2 Flow Rate 98.2 F 76 18 128/73 97 Nasal Cannula 3 10/23/23 20:00 10/24/23 08:00 10/24/23 08:00 10/24/23 08:00 10/24/23 08:00 10/24/23 08:00 10/24/23 08:00 Narrative: General: Appears comfortable and not in distress Heart: S1-S2, no rub Lung: Bilateral air entry, no wheezing or crackles Abdomen: Soft, positive bowel sounds Extremities: trace edema, no cyanosis Head: Atraumatic, normocephalic Ear: No gross hearing Deficit or external ear redness Eyes: No pallor or redness Neck: No JVD or visible mass Skin: No rashes, warm to touch FOLDER INSPECTOR: Awake,Alert, following simple command Musculoskeletal: No swelling or limitation of movement of the large joints Psychiatric: Cooperative, normal mood and affect Objective Intake and Output I&O: Intake & Output 10/21/23 10/22/23 10/23/23 10/24/23 23:59 23:59 23:59 23:59 Intake Total 875 / 875 510 / 510 500 / 500 300 / 300 Output Total 875 / 875 4100 / 4100 2500 / 2500 250 / 250 Balance 0 / 0 -3590 / -3590 -1999 / -1999 50 / 50 Weight 103.7 kg 105.4 kg 103.5 kg Meds and Allergies Meds: Active Medications Acetaminophen (Acetaminophen 325 Mg Tablet) 650 mg PO Q6HR PRN PRN Reason: Pain Scale 1 - 3 or fever Stop: 10/18/24 16:01 Last Admin: 10/23/23 16:57 Dose: 650 mg Bumetanide (Bumetanide 1 Mg Tablet) 1 mg PO BID@0800,1600 APPLE Stop: 10/23/24 07:59 Last Admin: 10/24/23 09:47 Dose: 1 mg Dextrose (Dextrose 50% In Water 25 Gm/50 Ml Syringe) 0 gm IV-PUSH PRN PRN PRN Reason: Hypoglycemia Stop: 10/19/24 09:50 Docusate Sodium (Docusate 100 Mg Capsule) 200 mg PO BID PRN PRN Reason: Constipation Stop: 10/19/24 13:42 Glucose (Dextrose 40% Gel 15 Gm Tube) 0 gm PO PRN PRN PRN Reason: Hypoglycemia Stop: 10/19/24 09:50 Hydromorphone HCl (Hydromorphone 0.5 Mg/0.5 Ml Syringe) 0.5 mg IV-PUSH Q4H PRN PRN Reason: Pain Scale 7 - 10 Last Admin: 10/23/23 22:40 Dose: 0.5 mg Insulin Aspart (Insulin Aspart 300 Units/3 Ml Insuln.Pen) 0 units SUBCUT TID.WM.HS APPLE; Protocol Stop: 10/19/24 11:59 Last Admin: 10/24/23 09:47 Dose: 2 units Pantoprazole Sodium (Pantoprazole 40 Mg Vial) 40 mg IV-PUSH BID APPLE Stop: 10/18/24 20:59 Last Admin: 10/24/23 09:47 Dose: 40 mg Prochlorperazine Edisylate (Prochlorperazine Edisylate 10 Mg/2 Ml Vial) 5 mg IV- PUSH Q4H PRN PRN Reason: Nausea And Vomiting Stop: 10/18/24 16:01 Sennosides (Sennosides Syrup 8.8 Mg/5 Ml Udc) 17.6 mg PO HS PRN PRN Reason: constipation Stop: 10/19/24 21:59 Sodium Chloride (Sodium Chloride 0.9 % 10 Ml Syringe) 0 ml IV-PUSH PRN PRN PRN Reason: Flush Stop: 10/18/24 12:59 Last Admin: 10/22/23 17:07 Dose: 10 ml Sodium Chloride (Sodium Chloride 0.9 % 10 Ml Vial.Pf) 10 ml INJECTION PRN PRN PRN Reason: Dilution Stop: 10/18/24 16:01 Last Admin: 10/23/23 20:32 Dose: 10 ml Sodium Chloride (Sodium Chloride 0.9 % 10 Ml Syringe) 10 ml IV-PUSH PRN PRN PRN Reason: Flush Stop: 10/18/24 16:01 Allergies No Known Allergies Allergy (Verified 10/19/23 13:01) Results - Nephrology Labs 10/24/23 05:20 10/24/23 05:20 Labs: 10/24/23 05:20 BUN 98 H Creatinine 2.23 H Radiology Impressions Impressions - last 24 hours: Any impression(s) listed above is documentation that was entered by the reading physician into a diagnostic report(s) for Shahid Sanchez. I have reviewed the report(s) and am incorporating any findings in the treatment plan of this patient where applicable. A&P - Nephrology Assessment/Plan (1) Acute kidney injury superimposed on CKD: Assessment/Problem Details: He has MAYLIN on CKD likely due to the cardiorenal syndrome. He has no evidence ofobstructive uropathy on CAT scan. (2) Hyponatremia: Assessment/Problem Details: He has a hypervolemic hyponatremia. (3) Acute on chronic anemia: Assessment/Problem Details: Patient has acute on chronic anemia possibly due to occult GI bleed. He was transfused 1 unit of PRBC. (4) Acute on chronic systolic (congestive) heart failure: Assessment/Problem Details: Patient appears to have acute on chronic congestive heart failure likely due to thus symptomatic anemia (5) Severe aortic stenosis: Assessment/Problem Details: He has a severe aortic stenosis. Cardiology recommended outpatient TAVR. Plan * Will stop IV Lasix and start oral Bumex 1 mg twice daily. He likely has a disproportionally high BUN due to the GI bleed. His creatinine is trending down and is making adequate output. * Continue to hold home dose of the valsartan and spironolactone. * Monitor H&H and transfuse as needed to keep the hemoglobin greater than 8 g/dL. * Check renal function daily and monitor input output * Continue to hold home dose of the metformin. Continue DM management as per the primary hospitalist team. The goal of blood sugar is between 100 to 150 mg/dL. * Check renal function daily and monitor for output Documented By: Valerio Saeed MD 10/24/23 1037 Signed By: <Electronically signed by Valerio Saeed MD> 10/24/23 1039 [facility] Work Phone: 1(115) 431-863507-27-2024 Progress note Author Kelvin Qureshi [facility] October 23, 2023 3:06pm Note Date/Time October 23, 2023 3:05 pm [facility] [address] [place] [address] Cardiology Progress Note Signed Patient: Shahid Sanchez MR#: [id number] : 1940 Acct:[id number] Age/Sex: 83 / M Adm Date: 4 Loc: 4 Room: [address] [place] [address] Type: ADM IN Attending Dr: Mary Colin MD Copies to: ~ Date of Service: 10/23/2023 Subjective Interval history: Patient feels better. Hemoglobin stable in the 9s. sCr improving. Exam Physical Exam Vital Signs: Temp Pulse Resp BP Pulse Ox O2 Del Method O2 Flow Rate 97.3 F L 75 20 141/57 H 97 Nasal Cannula 3 10/23/23 12:00 10/23/23 12:00 10/23/23 12:00 10/23/23 12:00 10/23/23 12:00 10/23/23 12:00 10/23/23 12:00 Const General: cooperative and other (Skin color is pale with edema conjunctiva) HEENT Head: atraumatic Mouth: oral mucosae normal Eyes General: appearance normal, both eyes and all related structures Pupils: PERRL Neck Neck: normal visual inspection, supple and no lymphadenopathy noted Neck mass: No Thyroid: thyroid normal Carotids: normal carotid upstroke Chest Chest palpation & inspection: normal inspection of the chest Resp Effort & Inspection: normal respiratory effort Auscultation: rales and rhonchi Cardio Palpation: normal PMI Rhythm: abnormal rhythm irregularly irregular Heart Sounds: S1 normal, S2 normal and murmur systolic III/ GI Palpation: soft and no hepatosplenomegaly Percussion: normal to percussion Auscultation: normal bowel sounds Skin General: dry skin and other (Hyperpigmentation of the lower extremity below the knee) Neuro General: patient alert, patient awake, patient oriented x3, tone normal and moves all extremities Extrem General: full ROM, capillary refill normal and pedal edema bilaterally Location:of the leg Severity: 1+ Psych Mental Status: mental status grossly normal Objective Labs 10/23/23 04:48 10/23/23 04:48 Labs: Laboratory Results - last 24 hr 10/22/23 10/22/23 10/23/23 16:14 20:44 04:48 Corrected WBC 11.3 H Uncorrected WBC Count 11.3 H RBC 2.99 L Hgb 9.7 L Hct 27.1 L MCV 90.8 MCH 32.5 MCHC 35.7 H RDW 16.4 H Plt Count 175 MPV 7.9 Neut % (Auto) 85.8 Lymph % (Auto) 5.9 [place] % (Auto) 7.4 Eos % (Auto) 0.7 Baso % (Auto) 0.2 Nucleat RBC Rel Count 0.0 Neut # (Auto) 9.7 H Lymph # (Auto) 0.7 L [place] # (Auto) 0.8 Eos # (Auto) 0.1 Baso # (Auto) 0.0 PHA Creatinine Clear 29.98 Sodium 128 L Potassium 3.7 Chloride 90 L Carbon Dioxide 27.8 Anion Gap 13.9 BUN 95 H Creatinine 2.31 H D Est GFR (CKD-EPI) 27.515 Glucose 202 H POC Glucose 224 223 POC Glucose Comment Glu2: cleaned meter Calcium 8.8 Magnesium 1.8 L Total Bilirubin 1.0 AST 22 ALT 25 Alkaline Phosphatase 77 Total Protein 6.7 Albumin 3.2 L Globulin 3.5 Albumin/Globulin Ratio 0.9 10/23/23 10/23/23 07:23 11:24 Corrected WBC Uncorrected WBC Count RBC Hgb Hct MCV MCH MCHC RDW Plt Count MPV Neut % (Auto) Lymph % (Auto) [place] % (Auto) Eos % (Auto) Baso % (Auto) Nucleat RBC Rel Count Neut # (Auto) Lymph # (Auto) [place] # (Auto) Eos # (Auto) Baso # (Auto) PHA Creatinine Clear Sodium Potassium Chloride Carbon Dioxide Anion Gap BUN Creatinine Est GFR (CKD-EPI) Glucose POC Glucose 232 344 POC Glucose Comment Glu2: cleaned meter Calcium Magnesium Total Bilirubin AST ALT Alkaline Phosphatase Total Protein Albumin Globulin Albumin/Globulin Ratio A&P - Cardiology (1) Acute anemia: Code(s): D64.9 - Anemia, unspecified Plan Assessment 1. Evidence of acute GI bleed and anemia seen by GI felt to be high risk for endoscopy locally 2. Chronic systolic dysfunction and aortic valve disease. SEBASTIÁN showed severe aortic stenosis with LV systolic dysfunction. 3. 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 Severe aortic stenosis patient is scheduled to undergo TAVR early October 5. Sick sinus syndrome status post permanent pacemaker implantation 6. 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 Long-term anticoagulation due to atrial fibrillation recent documentation ofleft atrial appendage organized thrombus. Off anticoagulation due to severe GI bleed 8. Pulmonary hypertension 9. History of colon cancer status postresection with no recurrence 10. History of hypertension 11. Acute on chronic kidney disease creatinine slowly improving. Creatinine down to 2.9 Plan - Continue to hold Eliquis. May need Watchman down the road. - He is due for TAVR at on Nov 04. May need GI workup ahead of that. GI do not feel comfortable doing endoscopy locally. - Monitor renal fxn. Nephrology on board and are diuresing. Documented By: Kelvin Qureshi MD 09/27 10/19 4167 Signed By: <Electronically signed by Kelvin Qureshi MD> 10/23/23 8970 [facility] Work Phone: [phone]) 969-276707-27-2024 Progress note Author Mary Colin [facility] October 23, 2023 12:10pm Note Date/Time October 23, 2023 12:1 1pm [facility] [address] [place] [address] Hospitalist Progress Note Signed Patient: Shahid Sanchez MR#: [id number] : 1940 Acct:[id number] Age/Sex: 83 / M Adm Date: 4 Loc: Room: [address] [place] [address] Type: ADM IN Attending Dr: Mary Colin MD Copies to: ~ Date of Service: 10/23/2023 Subjective Subjective Narrative: Patient was seen evaluated at bedside, he is out of bed to chair, BP stable. He is on 3 L nasal cannula,usually states he is on home oxygen, denies any nausea, vomiting. Diuresing well with improvement in kidney function and volume status, currently on IV Lasix scheduled. Having BMs brown in color. no signs of overt GIbleed at this time. Cardio, nephro and GI inputs appreciated. Hb improved afterblood transfusion and remained stable today. Patient feels better with more energy and good spirits according to him. Exam Physical Exam Vital Signs: Temp Pulse Resp BP Pulse Ox O2 Del Method O2 Flow Rate 97.3 F L 63 18 142/43 H 100 Nasal Cannula 3 10/23/23 08:00 10/23/23 08:00 10/23/23 08:00 10/23/23 08:00 10/23/23 08:00 10/23/23 08:00 10/23/23 08:00 Narrative: Const General: cooperative, more conversant HEENT Normal oropharyngeal mucosa without any ulcers or exudates Eyes: Conjunctiva normal Pulmonary Auscultation: Diminished breath sounds, no crackles, no wheezes Cardiovascular Rate: normal rate Rhythm: regular rhythm Heart Sounds: S1 normal, S2 normal and systolic murmur. GI Inspection: non-distended Palpation: soft, not firm and nontender. No rigidity or rebound. Deferred Neuro General: alert, awake and oriented x3. No obvious new focal deficit Musculoskeletal: normal range of motion Extrem General: no cyanosis, + pedal edema Psych Appearance: appropriate affect. Grossly normal. Objective Lab Results 10/23/23 04:48 10/23/23 04:48 Meds Allergies and Active Meds Allergies No Known Allergies Allergy (Verified 10/19/23 13:01) Active Meds: Active Medications Generic Name Dose Route Start Last Admin Trade Name Freq PRN Reason Stop Dose Admin Acetaminophen 650 mg 10/19/23 16:02 10/22/23 12:05 Acetaminophen 325 Mg Tablet PO 10/18/24 16:01 650 mg Q6HR PRN Administration Pain Scale 1 - 3 or fever Dextrose 0 gm 10/20/23 09:51 Dextrose 50% In Water 25 Gm/50 Ml Syringe IV-PUSH 10/19/24 09:50 PRN PRN Hypoglycemia Docusate Sodium 200 mg 10/20/23 13:43 Docusate 100 Mg Capsule PO 10/19/24 13:42 BID PRN Constipation Furosemide 40 mg 10/23/23 08:00 10/23/23 08:34 Furosemide 100 Mg/10 Ml Vial IV-PUSH 10/22/24 07:59 40 mg BID@0800,1600 APPLE Administration Glucose 0 gm 10/20/23 09:51 Dextrose 40% Gel 15 Gm Tube PO 10/19/24 09:50 PRN PRN Hypoglycemia Hydromorphone HCl 0.5 mg 10/22/23 03:06 10/23/23 05:24 Hydromorphone 0.5 Mg/0.5 Ml Syringe IV-PUSH 0.5 mg Q4H PRN Administration Pain Scale 7 - 10 Insulin Aspart 0 units 10/20/23 12:00 10/23/23 08:34 Insulin Aspart 300 Units/3 Ml Insuln.Pen SUBCUT 10/19/24 11:59 3 units TID.WM.HS APPLE Administration Protocol Pantoprazole Sodium 40 mg 10/19/23 21:00 10/23/23 08:34 Pantoprazole 40 Mg Vial IV-PUSH 10/18/24 20:59 40 mg BID APPLE Administration Prochlorperazine Edisylate 5 mg 10/19/23 16:02 Prochlorperazine Edisylate 10 Mg/2 Ml Vial IV-PUSH 10/18/24 16:01 Q4H PRN Nausea And Vomiting Sennosides 17.6 mg 10/20/23 13:43 Sennosides Syrup 8.8 Mg/5 Ml Udc PO 10/19/24 21:59 HS PRN constipation Sodium Chloride 0 ml 10/19/23 13:00 10/22/23 17:07 Sodium Chloride 0.9 % 10 Ml Syringe IV-PUSH 10/18/24 12:59 10 ml PRN PRN Administration Flush Sodium Chloride 10 ml 10/19/23 16:02 10/22/23 20:45 Sodium Chloride 0.9 % 10 Ml Vial.Pf INJECTION 10/18/24 16:01 10 ml PRN PRN Administration Dilution Sodium Chloride 10 ml 10/19/23 16:02 Sodium Chloride 0.9 % 10 Ml Syringe IV-PUSH 10/18/24 16:01 PRN PRN Flush A&P - Hospitalist Assessment/Plan (1) Acute hyponatremia: (2) Acute anemia: (3) Acute kidney injury superimposed on CKD: (4) Chronic systolic dysfunction of left ventricle: (5) Severe aortic stenosis: (6) A-fib: Plan Acute blood loss anemia Symptomatic anemia -BP more stable today. -Maintain 2 large bore IV access -Transfuse as needed to keep Hb above 8 or symptomatic anemia or ongoing bleeding -Received 1 unit of blood with improvement in Hb to 8.4, then Hb down to 7.8. added another unit of pRBC given his cardiac hx. Hb improved to 9.5. Hb stable 9.7 today. -Continue Protonix BID -Antiemetics IV/IM as directed -Hold antiplatelets and anticoagulation -Avoid NSAIDs -At this point, no evidence of overt GI bleed. Having Brown BM while here. -GI consulted. input appreciated. -Monitor while here for any overt GI bleed. Monitor H/H. -Monitor on telemetry MAYLIN on CKD Hypervolemic hyponatremia -kidney function improving with diuresis -Na 128 improving -Has been transition to scheduled IV Lasix per nephrology -Nephrology input appreciated. Acute on chronic systolic CHF L Atrial Thrombus on AC Severe pulmonary hypertension Sick sinus syndrome status post pacemaker Atrial fibrillation Single-vessel CAD Severe aortic stenosis -On IV diuresis -Monitor I/Os -Healthy heart diet -Monitor on tele -Hold AC for now -Cardiology input appreciated. Holding Eliquis for now. Watchman device down the road. Patient might require GI evaluation prior to his TAVR at -Risks of embolic strokes been discussed with patient and he verbalized understanding and in agreement with this plan Home medications resumed as appropriate Diet: soft GI DVT ppx: SCDs GI ppx: PPI Code status: Full. Discussed with patient regarding CODE STATUS, he wishes to be DNR however his to me that his daughter is his power of senior trial attorney and would like to discuss further with him to confirm his wishes we will keep him full code for now, will get palliative consult to coordinate care and goals of care discussion. Status: inpatient Discussed with patient at bedside. All questions answered. In agreement with theabove plan Patient has been accepted to SNF. Waiting on further improvement in kidney function Recommended GI evaluation prior to his TAVR at Continue current management for now Mary Blackburn MD Internal Medicine Hospitalist Attending Physician Documented By: Mary Colin MD 10/23/23 12 08 Signed By: <Electronically signed by Mary Colin MD> 10/23/23 1210 [facility] Work Phone: [phone]) 222-136507-27-2024 Progress note Author Valerio Saeed [facility] October 23, 2023 9:23am Note Date/Time October 23, 2023 9:23 am [facility] [address] [place] [address] Nephrology Progress Note Signed Patient: Shahid Sanchez MR#: [id number] : 1940 Acct:[id number] Age/Sex: 83 / M Adm Date: 4 Loc: Room: 5U5503-7 Type: ADM IN Attending Dr: Mary Colin MD Copies to: ~ Date of Service: 10/23/2023 Subjective Subjective Narrative: This is a 83-year-old old male with a medical history of HTN, DM, HLD, A-fib, sick sinus syndrome s/p pacemaker, RA, HF R EF, severe aortic stenosis, CAD was presented to the hospital after mechanical fall. Patient in the emergency room was found to have acute on chronic anemia with hemoglobin 7.4 g/dL, MAYLIN with elevated serum creatinine 3.4 mg/dL and hyponatremia with serum sodium 127 mmol/L. Patient was tested positive for stool occult blood test. He was transfused 1 unit of PRBC and was started on IV fluid. He also had a CAT scan abdomen pelvis and chest x-ray which showed finding concerning for CHF.Patient was recently admitted at [facility] for acute CHF exacerbation and respiratory failure. He had echocardiogram which showed EF 35 to 40% and severe . Patient was seen by the cardiology and had SEBASTIÁN which showed severe aortic stenosis moderate to severe pulmonary hypertension. He hada cardiac catheterization which showed single- vessel disease with collaterals. Patient diuretic regimen was also adjusted by cardiology. He was discharged on oral Lasix and spironolactone. Nephrology is consulted for hyponatremia and AKImanagement. Interim history Patient was seen and examined at bedside. He slept well last night and ate his breakfast this morning. He denies any chest pain palpitation nausea vomiting ordizziness cough or shortness of breath. Exam Physical Exam Vital Signs: Temp Pulse Resp BP Pulse Ox O2 Del Method O2 Flow Rate 97.3 F L 63 18 142/43 H 100 Nasal Cannula 3 10/23/23 08:00 10/23/23 08:00 10/23/23 08:00 10/23/23 08:00 10/23/23 08:00 10/23/23 08:00 10/23/23 08:00 Narrative: General: Appears comfortable and not in distress Heart: S1-S2, no rub Lung: Bilateral air entry, no wheezing or crackles Abdomen: Soft, positive bowel sounds Extremities: 1+ edema, no cyanosis Head: Atraumatic, normocephalic Ear: No gross hearing Deficit or external ear redness Eyes: No pallor or redness Neck: No JVD or visible mass Skin: No rashes, warm to touch FOLDER INSPECTOR: Awake,Alert, following simple command Musculoskeletal: No swelling or limitation of movement of the large joints Psychiatric: Cooperative, normal mood and affect Objective Intake and Output I&O: Intake & Output 10/20/23 10/21/23 10/22/23 10/23/23 23:59 23:59 23:59 23:59 Intake Total 1725 / 1725 875 / 875 510 / 510 100 / 100 Output Total 0 / 0 875 / 875 4100 / 4100 1300 / 1300 Balance 1725 / 1725 0 / 0 -3590 / -3590 -1200 / -1200 Weight 101.7 kg 103.7 kg 105.4 kg Meds and Allergies Meds: Active Medications Acetaminophen (Acetaminophen 325 Mg Tablet) 650 mg PO Q6HR PRN PRN Reason: Pain Scale 1 - 3 or fever Stop: 10/18/24 16:01 Last Admin: 10/22/23 12:05 Dose: 650 mg Dextrose (Dextrose 50% In Water 25 Gm/50 Ml Syringe) 0 gm IV-PUSH PRN PRN PRN Reason: Hypoglycemia Stop: 10/19/24 09:50 Docusate Sodium (Docusate 100 Mg Capsule) 200 mg PO BID PRN PRN Reason: Constipation Stop: 10/19/24 13:42 Furosemide (Furosemide 100 Mg/10 Ml Vial) 40 mg IV-PUSH BID@0800,1600 APPLE Stop: 10/22/24 07:59 Last Admin: 10/23/23 08:34 Dose: 40 mg Glucose (Dextrose 40% Gel 15 Gm Tube) 0 gm PO PRN PRN PRN Reason: Hypoglycemia Stop: 10/19/24 09:50 Hydromorphone HCl (Hydromorphone 0.5 Mg/0.5 Ml Syringe) 0.5 mg IV-PUSH Q4H PRN PRN Reason: Pain Scale 7 - 10 Last Admin: 10/23/23 05:24 Dose: 0.5 mg Insulin Aspart (Insulin Aspart 300 Units/3 Ml Insuln.Pen) 0 units SUBCUT TID.WM.[facility]; Protocol Stop: 10/19/24 11:59 Last Admin: 10/23/23 08:34 Dose: 3 units Pantoprazole Sodium (Pantoprazole 40 Mg Vial) 40 mg IV-PUSH BID APPLE Stop: 10/18/24 20:59 Last Admin: 10/23/23 08:34 Dose: 40 mg Prochlorperazine Edisylate (Prochlorperazine Edisylate 10 Mg/2 Ml Vial) 5 mg IV- PUSH Q4H PRN PRN Reason: Nausea And Vomiting Stop: 10/18/24 16:01 Sennosides (Sennosides Syrup 8.8 Mg/5 Ml Udc) 17.6 mg PO HS PRN PRN Reason: constipation Stop: 10/19/24 21:59 Sodium Chloride (Sodium Chloride 0.9 % 10 Ml Syringe) 0 ml IV-PUSH PRN PRN PRN Reason: Flush Stop: 10/18/24 12:59 Last Admin: 10/22/23 17:07 Dose: 10 ml Sodium Chloride (Sodium Chloride 0.9 % 10 Ml Vial.Pf) 10 ml INJECTION PRN PRN PRN Reason: Dilution Stop: 10/18/24 16:01 Last Admin: 10/22/23 20:45 Dose: 10 ml Sodium Chloride (Sodium Chloride 0.9 % 10 Ml Syringe) 10 ml IV-PUSH PRN PRN PRN Reason: Flush Stop: 10/18/24 16:01 Allergies No Known Allergies Allergy (Verified 10/19/23 13:01) Results - Nephrology Labs 10/23/23 04:48 10/23/23 04:48 Labs: 10/22/23 10/23/23 09:00 04:48 BUN 95 H Creatinine 2.31 H D Albumin 3.2 L Urine Color Light-yellow Urine Appearance Clear Urine pH 5.0 Ur Specific Joiner 1.007 Urine Protein Negative Urine Glucose (UA) Normal Urine Ketones Negative Urine Occult Blood Negative Urine Nitrite Negative Ur Leukocyte Esterase Negative Radiology Impressions Impressions - last 24 hours: Any impression(s) listed above is documentation that was entered by the reading physician into a diagnostic report(s) for Shahid Debra aDniel. I have reviewed the report(s) and am incorporating any findings in the treatment plan of this patient where applicable. A&P - Nephrology Assessment/Plan (1) Acute kidney injury superimposed on CKD: Assessment/Problem Details: He has MAYLIN on CKD likely due to the cardiorenal syndrome. He has no evidence ofobstructive uropathy on CAT scan. (2) Hyponatremia: Assessment/Problem Details: He has a hypervolemic hyponatremia. (3) Acute on chronic anemia: Assessment/Problem Details: Patient has acute on chronic anemia possibly due to occult GI bleed. He was transfused 1 unit of PRBC. (4) Acute on chronic systolic (congestive) heart failure: Assessment/Problem Details: Patient appears to have acute on chronic congestive heart failure likely due to thus symptomatic anemia (5) Severe aortic stenosis: Assessment/Problem Details: He has a severe aortic stenosis. Cardiology recommended outpatient TAVR. Plan * Will decrease Lasix to 40 mg IV twice daily. He likely has a disproportionally high BUN due to the GI bleed. His creatinine is trending down and is making adequate output. * Continue to hold home dose of the valsartan and spironolactone. * Monitor H&H and transfuse as needed to keep the hemoglobin greater than 8 g/dL. * Check renal function daily and monitor input output * Continue to hold home dose of the metformin. Continue DM management as per the primary hospitalist team. The goal of blood sugar is between 100 to 150 mg/dL. * Check renal function daily and monitor for output Documented By: Valerio Saeed MD 10/23/23921 Signed By: <Electronically signed by Valerio Saeed MD> 10/23/23922 [facility] Work Phone: 1(516) 975-442107-26-2024 Progress note Author Joby Pinedo [facility] October 22, 2023 2:25pm Note Date/Time October 22, 2023 2:24 pm [facility] [address] [place] [address] Cardiology Progress Note Signed Patient: Shahid Sanchez MR#: [id number] : 1940 Acct:[id number] Age/Sex: 83 / M Adm Date: 4 Loc: Room: [address] [place] [address] Type: ADM IN Attending Dr: Mary Colin MD Copies to: ~ Date of Service: 10/22/2023 Subjective Interval history: Patient feels better. Hemoglobin stable. Good diuresis. Renal and function slightly improved Exam Physical Exam Vital Signs: Temp Pulse Resp BP Pulse Ox O2 Del Method O2 Flow Rate 97.3 F L 67 20 116/63 100 Nasal Cannula 3 10/22/23 12:00 10/22/23 12:00 10/22/23 12:00 10/22/23 12:00 10/22/23 12:00 10/22/23 12:00 10/22/23 12:00 Eyes General: appearance normal, both eyes and all related structures Pupils: PERRL Neck Neck: normal visual inspection, supple and no lymphadenopathy noted Neck mass: No Thyroid: thyroid normal Carotids: normal carotid upstroke Chest Chest palpation & inspection: normal inspection of the chest Resp Effort & Inspection: normal respiratory effort Auscultation: rales and rhonchi Cardio Palpation: normal PMI Rhythm: abnormal rhythm irregularly irregular Heart Sounds: S1 normal, S2 normal and murmur systolic III/ GI Palpation: soft and no hepatosplenomegaly Percussion: normal to percussion Auscultation: normal bowel sounds Extrem General: full ROM, capillary refill normal and pedal edema bilaterally Location:of the leg Severity: 2+ Objective Labs 10/22/23 05:20 10/22/23 05:20 Labs: Laboratory Results - last 24 hr 10/19/23 10/21/23 10/21/23 15:26 15:25 17:11 Corrected WBC Uncorrected WBC Count RBC Hgb Hct MCV MCH MCHC RDW Plt Count MPV Neut % (Auto) Lymph % (Auto) [place] % (Auto) Eos % (Auto) Baso % (Auto) Nucleat RBC Rel Count Neut # (Auto) Lymph # (Auto) [place] # (Auto) Eos # (Auto) Baso # (Auto) PHA Creatinine Clear Sodium Potassium Chloride Carbon Dioxide Anion Gap BUN Creatinine Est GFR (CKD-EPI) Glucose POC Glucose 238 Calcium Magnesium Total Bilirubin AST ALT Alkaline Phosphatase Total Protein Albumin Globulin Albumin/Globulin Ratio Urine Color Light-yellow Urine Appearance Clear Urine pH 5.0 Ur Specific Joiner 1.009 Urine Protein Negative Urine Glucose (UA) Normal Urine Ketones Negative Urine Occult Blood Negative Urine Nitrite Negative Urine Bilirubin Negative Urine Urobilinogen Normal Ur Leukocyte Esterase Negative Blood Type AB Negative Antibody Screen Negative Crossmatch (AHG) See Detail 10/22/23 10/22/23 10/22/23 05:20 05:20 07:36 Corrected WBC 12.1 H Uncorrected WBC Count 12.1 H RBC 2.92 L Hgb 9.5 L Hct 26.7 L MCV 91.3 MCH 32.4 MCHC 35.5 RDW 16.2 H Plt Count 148 L MPV 7.7 Neut % (Auto) 87.8 Lymph % (Auto) 5.0 [place] % (Auto) 6.1 Eos % (Auto) 0.9 Baso % (Auto) 0.2 Nucleat RBC Rel Count 0.0 Neut # (Auto) 10.6 H Lymph # (Auto) 0.6 L [place] # (Auto) 0.7 Eos # (Auto) 0.1 Baso # (Auto) 0.0 PHA Creatinine Clear 23.24 Sodium 127 L Potassium 3.8 Chloride 89 L Carbon Dioxide 24.9 Anion Gap 16.9 H BUN 95 H Creatinine 2.98 H D Est GFR (CKD-EPI) 20.269 Glucose 164 H POC Glucose 184 Calcium 8.5 L Magnesium 1.8 L Cancelled Total Bilirubin 1.4 H AST 29 ALT 30 Alkaline Phosphatase 72 Total Protein 6.5 Albumin 3.1 L Globulin 3.4 Albumin/Globulin Ratio 0.9 Urine Color Urine Appearance Urine pH Ur Specific Joiner Urine Protein Urine Glucose (UA) Urine Ketones Urine Occult Blood Urine Nitrite Urine Bilirubin Urine Urobilinogen Ur Leukocyte Esterase Blood Type Antibody Screen Crossmatch ([facility]) 10/22/23 10/22/23 09:00 12:01 Corrected WBC Uncorrected WBC Count RBC Hgb Hct MCV MCH MCHC RDW Plt Count MPV Neut % (Auto) Lymph % (Auto) [place] % (Auto) Eos % (Auto) Baso % (Auto) Nucleat RBC Rel Count Neut # (Auto) Lymph # (Auto) [place] # (Auto) Eos # (Auto) Baso # (Auto) PHA Creatinine Clear Sodium Potassium Chloride Carbon Dioxide Anion Gap BUN Creatinine Est GFR (CKD-EPI) Glucose POC Glucose 263 Calcium Magnesium Total Bilirubin AST ALT Alkaline Phosphatase Total Protein Albumin Globulin Albumin/Globulin Ratio Urine Color Light-yellow Urine Appearance Clear Urine pH 5.0 Ur Specific Joiner 1.007 Urine Protein Negative Urine Glucose (UA) Normal Urine Ketones Negative Urine Occult Blood Negative Urine Nitrite Negative Urine Bilirubin Negative Urine Urobilinogen Normal Ur Leukocyte Esterase Negative Blood Type Antibody Screen Crossmatch (AHG) A&P - Cardiology (1) Acute anemia: Code(s): D64.9 - Anemia, unspecified Plan Assessment 1. Evidence of acute GI bleed and anemia seen by GI felt to be high risk for endoscopy locally 2. Chronic systolic dysfunction and aortic valve disease. SEBASTIÁN showed severe aortic stenosis with LV systolic dysfunction. 3. 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 Severe aortic stenosis patient is scheduled to undergo TAVR early October 5. Sick sinus syndrome status post permanent pacemaker implantation 6. 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 Long-term anticoagulation due to atrial fibrillation recent documentation ofleft atrial appendage organized thrombus. Off anticoagulation due to severe GI bleed 8. Pulmonary hypertension 9. History of colon cancer status postresection with no recurrence 10. History of hypertension 11. Acute on chronic kidney disease creatinine slowly improving. Creatinine down to 2.9 Plan 1. Continue to hold Eliquis. I explained the patient he is at risk for embolicevent. 2. Blood transfusion if needed 3. Diuretics was initiated by the renal service 4. Patient might need endoscopy prior to TAVR. GI do not feel comfortable doing endoscopy locally 5. Down the road consider Watchman device 6. Continue to monitor renal function Documented By: Joby Pinedo MD 10/22/231422 Signed By: <Electronically signed by MD Joby Pinedo> 10/22/23 1429 [facility] Work Phone: 1(264) 258-400707-26-2024 Progress note Author Mary Colin [facility] October 22, 2023 12:01pm Note Date/Time October 22, 2023 11:5 6am [facility] [address] [place] [address] Hospitalist Progress Note Signed Patient: Shahid Sanchez MR#: [id number] : 1940 Acct:[id number] Age/Sex: 83 / M Adm Date: 4 Loc: Room: [address] [place] [address] Type: ADM IN Attending Dr: Mary Colin MD Copies to: ~ Date of Service: 10/22/2023 Subjective Subjective Narrative: Patient was seen evaluated at bedside, he is out of bed to chair, BP stable. He is on 3 L nasal cannula,usually states he is on home oxygen, denies any nausea, vomiting. Diuresing well with improvement in kidney function and volume status, lasix drip stopped and transitioned to IV Lasix scheduled. Having BMs brown in color. no signs of overt GI bleed at this time. Cardio, nephro and GI inputs appreciated. Hb improved after blood trasnfusion. Exam Physical Exam Vital Signs: Temp Pulse Resp BP Pulse Ox O2 Del Method O2 Flow Rate 97.3 F L 69 16 125/56 L 99 Nasal Cannula 3 10/22/23 07:45 10/22/23 07:45 10/22/23 07:45 10/22/23 07:45 10/22/23 07:45 10/22/23 08:00 10/22/23 08:00 Narrative: Const General: cooperative, more conversant HEENT Normal oropharyngeal mucosa without any ulcers or exudates Eyes: Conjunctiva normal Pulmonary Auscultation: Diminished breath sounds, no crackles, no wheezes Cardiovascular Rate: normal rate Rhythm: regular rhythm Heart Sounds: S1 normal, S2 normal and systolic murmur. GI Inspection: non-distended Palpation: soft, not firm and nontender. No rigidity or rebound. Deferred Neuro General: alert, awake and oriented x3. No obvious new focal deficit Musculoskeletal: normal range of motion Extrem General: no cyanosis, + pedal edema Psych Appearance: appropriate affect. Grossly normal. Objective Lab Results 10/22/23 05:20 10/22/23 05:20 Meds Allergies and Active Meds Allergies No Known Allergies Allergy (Verified 10/19/23 13:01) Active Meds: Active Medications Generic Name Dose Route Start Last Admin Trade Name Freq PRN Reason Stop Dose Admin Acetaminophen 650 mg 10/19/23 16:02 Acetaminophen 325 Mg Tablet PO 10/18/24 16:01 Q6HR PRN Pain Scale 1 - 3 or fever Dextrose 0 gm 10/20/23 09:51 Dextrose 50% In Water 25 Gm/50 Ml Syringe IV-PUSH 10/19/24 09:50 PRN PRN Hypoglycemia Docusate Sodium 200 mg 10/20/23 13:43 Docusate 100 Mg Capsule PO 10/19/24 13:42 BID PRN Constipation Furosemide 60 mg 10/22/23 08:00 10/22/23 09:00 Furosemide 100 Mg/10 Ml Vial IV-PUSH 10/21/24 07:59 60 mg BID@0800,1600 APPLE Administration Glucose 0 gm 10/20/23 09:51 Dextrose 40% Gel 15 Gm Tube PO 10/19/24 09:50 PRN PRN Hypoglycemia Hydromorphone HCl 0.5 mg 10/22/23 03:06 10/22/23 10:29 Hydromorphone 0.5 Mg/0.5 Ml Syringe IV-PUSH 0.5 mg Q4H PRN Administration Pain Scale 7 - 10 Insulin Aspart 0 units 10/20/23 12:00 10/22/23 09:01 Insulin Aspart 300 Units/3 Ml Insuln.Pen SUBCUT 10/19/24 11:59 2 units TID.WM.HS APPLE Administration Protocol Pantoprazole Sodium 40 mg 10/19/23 21:00 10/22/23 09:00 Pantoprazole 40 Mg Vial IV-PUSH 10/18/24 20:59 40 mg BID APPLE Administration Prochlorperazine Edisylate 5 mg 10/19/23 16:02 Prochlorperazine Edisylate 10 Mg/2 Ml Vial IV-PUSH 10/18/24 16:01 Q4H PRN Nausea And Vomiting Sennosides 17.6 mg 10/20/23 13:43 Sennosides Syrup 8.8 Mg/5 Ml Udc PO 10/19/24 21:59 HS PRN constipation Sodium Chloride 0 ml 10/19/23 13:00 10/22/23 10:29 Sodium Chloride 0.9 % 10 Ml Syringe IV-PUSH 10/18/24 12:59 10 ml PRN PRN Administration Flush Sodium Chloride 10 ml 10/19/23 16:02 10/22/23 09:00 Sodium Chloride 0.9 % 10 Ml Vial.Pf INJECTION 10/18/24 16:01 10 ml PRN PRN Administration Dilution Sodium Chloride 10 ml 10/19/23 16:02 Sodium Chloride 0.9 % 10 Ml Syringe IV-PUSH 10/18/24 16:01 PRN PRN Flush A&P - Hospitalist Assessment/Plan (1) Acute hyponatremia: (2) Acute anemia: (3) Acute kidney injury superimposed on CKD: (4) Chronic systolic dysfunction of left ventricle: (5) Severe aortic stenosis: (6) A-fib: Plan Acute blood loss anemia Symptomatic anemia -BP stable today. -Maintain 2 large bore IV access -Transfuse as needed to keep Hb above 8 or symptomatic anemia or ongoing bleeding -Received 1 unit of blood with improvement in Hb to 8.4, then Hb down to 7.8. added another unit of pRBC given his cardiac hx. Hb improved to 9.5 -Continue Protonix BID -Antiemetics IV/IM as directed -Hold antiplatelets and anticoagulation -Avoid NSAIDs -At this point, no evidence of overt GI bleed. Having Brown BM while here. -GI consulted. input appreciated. -Monitor while here for any overt GI bleed. Monitor H/H. -Monitor on telemetry MAYLIN on CKD Hypervolemic hyponatremia -kidney function improving with diuresis -Na 127 improving -Has been transition to scheduled IV Lasix per nephrology -Nephrology input appreciated. Acute on chronic systolic CHF L Atrial Thrombus on AC Severe pulmonary hypertension Sick sinus syndrome status post pacemaker Atrial fibrillation Single-vessel CAD Severe aortic stenosis -On IV diuresis -Monitor I/Os -Healthy heart diet -Monitor on tele -Hold AC for now -Cardiology input appreciated. Holding Eliquis for now. Watchman device down the road. Patient might require GI evaluation prior to his TAVR at -Risks of embolic strokes been discussed with patient and he verbalized understanding and in agreement with this plan Home medications resumed as appropriate Diet: soft GI DVT ppx: SCDs GI ppx: PPI Code status: Full. Discussed with patient regarding CODE STATUS, he wishes to be DNR however his to me that his daughter is his power of senior trial attorney and would like to discuss further with him to confirm his wishes we will keep him full code for now, might consider palliative consult to coordinate care and goals of care discussion. Status: inpatient Discussed with patient at bedside. All questions answered. In agreement with theabove plan Patient has been accepted to SNF. Waiting on further improvement in kidney function Recommended GI evaluation prior to his TAVR at Continue current management for now Mary Blackburn MD Internal Medicine Hospitalist Attending Physician Documented By: Mary Colin MD 10/22/23 11 55 Signed By: <Electronically signed by Mary Colin MD> 10/22/23 1201 [facility] Work Phone: [phone]) 397-984607-26-2024 Progress note Author Valerio Saeed [facility] October 22, 2023 11:18am Note Date/Time October 22, 2023 11:1 7am [facility] [address] [place] [address] Nephrology Progress Note Signed Patient: Shahid Sanchez MR#: [id number] : 1940 Acct:[id number] Age/Sex: 83 / M Adm Date: 4 Loc: Room: [address] [place] [address] Type: ADM IN Attending Dr: Mary Colin MD Copies to: ~ Date of Service: 10/22/2023 Subjective Subjective Narrative: This is a 83-year-old old male with a medical history of HTN, DM, HLD, A-fib, sick sinus syndrome s/p pacemaker, RA, HF R EF, severe aortic stenosis, CAD was presented to the hospital after mechanical fall. Patient in the emergency room was found to have acute on chronic anemia with hemoglobin 7.4 g/dL, MAYLIN with elevated serum creatinine 3.4 mg/dL and hyponatremia with serum sodium 127 mmol/L. Patient was tested positive for stool occult blood test. He was transfused 1 unit of PRBC and was started on IV fluid. He also had a CAT scan abdomen pelvis and chest x-ray which showed finding concerning for CHF.Patient was recently admitted at [facility] for acute CHF exacerbation and respiratory failure. He had echocardiogram which showed EF 35 to 40% and severe . Patient was seen by the cardiology and had SEBASTIÁN which showed severe aortic stenosis moderate to severe pulmonary hypertension. He hada cardiac catheterization which showed single- vessel disease with collaterals. Patient diuretic regimen was also adjusted by cardiology. He was discharged on oral Lasix and spironolactone. Nephrology is consulted for hyponatremia and AKImanagement. Interim history Patient was seen and examined at bedside. He denies any chest pain palpitationnausea vomiting or dizziness cough or shortness of breath. He continues to havea good urine output with the Lasix. He was transfused 1 unit of PRBC and hemoglobin went up appropriately. Exam Physical Exam Vital Signs: Temp Pulse Resp BP Pulse Ox O2 Del Method O2 Flow Rate 97.3 F L 69 16 125/56 L 99 Nasal Cannula 3 10/22/23 07:45 10/22/23 07:45 10/22/23 07:45 10/22/23 07:45 10/22/23 07:45 10/22/23 08:00 10/22/23 08:00 Narrative: General: Appears comfortable and not in distress Heart: S1-S2, no rub Lung: Bilateral air entry, no wheezing or crackles Abdomen: Soft, positive bowel sounds Extremities: 1+ edema, no cyanosis Head: Atraumatic, normocephalic Ear: No gross hearing Deficit or external ear redness Eyes: No pallor or redness Neck: positive JVD or visible mass Skin: No rashes, warm to touch FOLDER INSPECTOR: Awake,Alert, following simple command Musculoskeletal: No swelling or limitation of movement of the large joints Psychiatric: Cooperative, normal mood and affect Objective Intake and Output I&O: Intake & Output 10/19/23 10/20/23 10/21/23 10/22/23 23:59 23:59 23:59 23:59 Intake Total 1725 / 1725 875 / 875 50 / 50 Output Total 0 / 0 875 / 875 2150 / 2150 Balance 1725 / 1725 0 / 0 -2100 / -2100 Weight 101.7 kg 101.7 kg 103.7 kg 105.4 kg Meds and Allergies Meds: Active Medications Acetaminophen (Acetaminophen 325 Mg Tablet) 650 mg PO Q6HR PRN PRN Reason: Pain Scale 1 - 3 or fever Stop: 10/18/24 16:01 Dextrose (Dextrose 50% In Water 25 Gm/50 Ml Syringe) 0 gm IV-PUSH PRN PRN PRN Reason: Hypoglycemia Stop: 10/19/24 09:50 Docusate Sodium (Docusate 100 Mg Capsule) 200 mg PO BID PRN PRN Reason: Constipation Stop: 10/19/24 13:42 Furosemide (Furosemide 100 Mg/10 Ml Vial) 60 mg IV-PUSH BID@0800,1600 APPLE Stop: 10/21/24 07:59 Last Admin: 10/22/23 09:00 Dose: 60 mg Glucose (Dextrose 40% Gel 15 Gm Tube) 0 gm PO PRN PRN PRN Reason: Hypoglycemia Stop: 10/19/24 09:50 Hydromorphone HCl (Hydromorphone 0.5 Mg/0.5 Ml Syringe) 0.5 mg IV-PUSH Q4H PRN PRN Reason: Pain Scale 7 - 10 Last Admin: 10/22/23 10:29 Dose: 0.5 mg Insulin Aspart (Insulin Aspart 300 Units/3 Ml Insuln.Pen) 0 units SUBCUT TID.WM.[facility]; Protocol Stop: 10/19/24 11:59 Last Admin: 10/22/23 09:01 Dose: 2 units Pantoprazole Sodium (Pantoprazole 40 Mg Vial) 40 mg IV-PUSH BID APPLE Stop: 10/18/24 20:59 Last Admin: 10/22/23 09:00 Dose: 40 mg Prochlorperazine Edisylate (Prochlorperazine Edisylate 10 Mg/2 Ml Vial) 5 mg IV- PUSH Q4H PRN PRN Reason: Nausea And Vomiting Stop: 10/18/24 16:01 Sennosides (Sennosides Syrup 8.8 Mg/5 Ml Udc) 17.6 mg PO HS PRN PRN Reason: constipation Stop: 10/19/24 21:59 Sodium Chloride (Sodium Chloride 0.9 % 10 Ml Syringe) 0 ml IV-PUSH PRN PRN PRN Reason: Flush Stop: 10/18/24 12:59 Last Admin: 10/22/23 10:29 Dose: 10 ml Sodium Chloride (Sodium Chloride 0.9 % 10 Ml Vial.Pf) 10 ml INJECTION PRN PRN PRN Reason: Dilution Stop: 10/18/24 16:01 Last Admin: 10/22/23 09:00 Dose: 10 ml Sodium Chloride (Sodium Chloride 0.9 % 10 Ml Syringe) 10 ml IV-PUSH PRN PRN PRN Reason: Flush Stop: 10/18/24 16:01 Allergies No Known Allergies Allergy (Verified 10/19/23 13:01) Results - Nephrology Labs 10/22/23 05:20 10/22/23 05:20 Labs: 10/21/23 10/22/23 10/22/23 15:25 05:20 09:00 BUN 95 H Creatinine 2.98 H D Albumin 3.1 L Urine Color Light-yellow Light-yellow Urine Appearance Clear Clear Urine pH 5.0 5.0 Ur Specific Joiner 1.009 1.007 Urine Protein Negative Negative Urine Glucose (UA) Normal Normal Urine Ketones Negative Negative Urine Occult Blood Negative Negative Urine Nitrite Negative Negative Ur Leukocyte Esterase Negative Negative Radiology Impressions Impressions - last 24 hours: Any impression(s) listed above is documentation that was entered by the reading physician into a diagnostic report(s) for Shahid Sanchez. I have reviewed the report(s) and am incorporating any findings in the treatment plan of this patient where applicable. A&P - Nephrology Assessment/Plan (1) Acute kidney injury superimposed on CKD: Assessment/Problem Details: He has MAYLIN on CKD likely due to the cardiorenal syndrome. He has no evidence ofobstructive uropathy on CAT scan. (2) Hyponatremia: Assessment/Problem Details: He has a hypervolemic hyponatremia. (3) Acute on chronic anemia: Assessment/Problem Details: Patient has acute on chronic anemia possibly due to occult GI bleed. He was transfused 1 unit of PRBC. (4) Acute on chronic systolic (congestive) heart failure: Assessment/Problem Details: Patient appears to have acute on chronic congestive heart failure likely due to thus symptomatic anemia (5) Severe aortic stenosis: Assessment/Problem Details: He has a severe aortic stenosis. Cardiology recommended outpatient TAVR. Plan * Will stop Lasix drip and start Lasix 60 mg IV twice daily. He likely has a disproportionally high BUN due to the GI bleed. His creatinine is trending down and is making adequate output. * Continue to hold home dose of the valsartan and spironolactone. * Monitor H&H and transfuse as needed to keep the hemoglobin greater than 8 g/dL. * Check renal function daily and monitor input output * Continue to hold home dose of the metformin. Continue DM management as per the primary hospitalist team. The goal of blood sugar is between 100 to 150 mg/dL. * Check renal function daily and monitor for output Documented By: Valerio Saeed MD 10/22/231114 Signed By: <Electronically signed by Valerio Saeed MD> 10/22/23 111 [facility] Work Phone: [phone]) 348-985407-25-2024 Progress note Author Valerio Saeed [facility] October 21, 2023 4:57pm Note Date/Time October 21, 2023 4:55 pm [facility] [address] [place] [address] Nephrology Progress Note Signed Patient: Shahid Sanchez MR#: [id number] : 1940 Acct:[id number] Age/Sex: 83 / M Adm Date: 4 Loc: Room: [address] [place] [address] Type: ADM IN Attending Dr: Mary Colin MD Copies to: ~ Date of Service: 10/21/2023 Subjective Subjective Narrative: This is a 83-year-old old male with a medical history of HTN, DM, HLD, A-fib, sick sinus syndrome s/p pacemaker, RA, HF R EF, severe aortic stenosis, CAD was presented to the hospital after mechanical fall. Patient in the emergency room was found to have acute on chronic anemia with hemoglobin 7.4 g/dL, MAYLIN with elevated serum creatinine 3.4 mg/dL and hyponatremia with serum sodium 127 mmol/L. Patient was tested positive for stool occult blood test. He was transfused 1 unit of PRBC and was started on IV fluid. He also had a CAT scan abdomen pelvis and chest x-ray which showed finding concerning for CHF.Patient was recently admitted at [facility] for acute CHF exacerbation and respiratory failure. He had echocardiogram which showed EF 35 to 40% and severe . Patient was seen by the cardiology and had SEBASTIÁN which showed severe aortic stenosis moderate to severe pulmonary hypertension. He hada cardiac catheterization which showed single- vessel disease with collaterals. Patient diuretic regimen was also adjusted by cardiology. He was discharged on oral Lasix and spironolactone. Nephrology is consulted for hyponatremia and AKImanagement. Interim history Patient was seen and examined at bedside. He reported that his shortness of breath has improved. He denies any chest pain palpitation nausea vomiting or dizziness. Exam Physical Exam Vital Signs: Temp Pulse Resp BP Pulse Ox O2 Del Method O2 Flow Rate 97.4 F L 69 22 130/69 96 Nasal Cannula 3 10/21/23 11:59 10/21/23 11:59 10/21/23 11:59 10/21/23 11:59 10/21/23 11:59 10/21/23 11:59 10/21/23 11:59 Narrative: General: Appears comfortable and not in distress Heart: S1-S2, no rub Lung: Bilateral air entry, no wheezing or crackles Abdomen: Soft, positive bowel sounds Extremities: 1+ edema, no cyanosis Head: Atraumatic, normocephalic Ear: No gross hearing Deficit or external ear redness Eyes: No pallor or redness Neck: positive JVD or visible mass Skin: No rashes, warm to touch FOLDER INSPECTOR: Awake,Alert, following simple command Musculoskeletal: No swelling or limitation of movement of the large joints Psychiatric: Cooperative, normal mood and affect Objective Intake and Output I&O: Intake & Output 10/18/23 10/19/23 10/20/23 10/21/23 23:59 23:59 23:59 23:59 Intake Total 1725 / 1725 125 / 125 Output Total 0 / 0 350 / 350 Balance 1725 / 1725 -225 / -225 Weight 101.7 kg 101.7 kg 103.7 kg Meds and Allergies Meds: Active Medications Acetaminophen (Acetaminophen 325 Mg Tablet) 650 mg PO Q6HR PRN PRN Reason: Pain Scale 1 - 3 or fever Stop: 10/18/24 16:01 Dextrose (Dextrose 50% In Water 25 Gm/50 Ml Syringe) 0 gm IV-PUSH PRN PRN PRN Reason: Hypoglycemia Stop: 10/19/24 09:50 Docusate Sodium (Docusate 100 Mg Capsule) 200 mg PO BID PRN PRN Reason: Constipation Stop: 10/19/24 13:42 Glucose (Dextrose 40% Gel 15 Gm Tube) 0 gm PO PRN PRN PRN Reason: Hypoglycemia Stop: 10/19/24 09:50 Furosemide 500 mg/ Sodium (Chloride) 100 mls @ 4 mls/hr IV .Q24H APPLE Stop: 10/19/24 11:29 Last Admin: 10/21/23 11:19 Dose: Not Given Sodium Chloride (0.9 % Sodium Chloride) 500 mls @ 20 mls/hr IV PROTOCOL PRN PRN Reason: BLOOD TRANSFUSION Stop: 10/22/23 10:22 Insulin Aspart (Insulin Aspart 300 Units/3 Ml Insuln.Pen) 0 units SUBCUT TID.WM.[facility]; Protocol Stop: 10/19/24 11:59 Last Admin: 10/21/23 12:30 Dose: 3 units Morphine Sulfate (Morphine Sulfate 2 Mg/Ml Vial) 2 mg IV-PUSH Q4H PRN PRN Reason: Pain Scale 8 - 10 Last Admin: 10/21/23 08:51 Dose: 2 mg Pantoprazole Sodium (Pantoprazole 40 Mg Vial) 40 mg IV-PUSH BID APPLE Stop: 10/18/24 20:59 Last Admin: 10/21/23 08:50 Dose: 40 mg Prochlorperazine Edisylate (Prochlorperazine Edisylate 10 Mg/2 Ml Vial) 5 mg IV- PUSH Q4H PRN PRN Reason: Nausea And Vomiting Stop: 10/18/24 16:01 Sennosides (Sennosides Syrup 8.8 Mg/5 Ml Udc) 17.6 mg PO HS PRN PRN Reason: constipation Stop: 10/19/24 21:59 Sodium Chloride (Sodium Chloride 0.9 % 10 Ml Syringe) 0 ml IV-PUSH PRN PRN PRN Reason: Flush Stop: 10/18/24 12:59 Last Admin: 10/20/23 21:06 Dose: 10 ml Sodium Chloride (Sodium Chloride 0.9 % 10 Ml Vial.Pf) 10 ml INJECTION PRN PRN PRN Reason: Dilution Stop: 10/18/24 16:01 Last Admin: 10/21/23 08:51 Dose: 10 ml Sodium Chloride (Sodium Chloride 0.9 % 10 Ml Syringe) 10 ml IV-PUSH PRN PRN PRN Reason: Flush Stop: 10/18/24 16:01 Allergies No Known Allergies Allergy (Verified 10/19/23 13:01) Results - Nephrology Labs 10/21/23 04:50 10/21/23 04:50 Labs: 10/21/23 04:50 BUN 93 H Creatinine 3.93 H Albumin 2.8 L Radiology Impressions Impressions - last 24 hours: Any impression(s) listed above is documentation that was entered by the reading physician into a diagnostic report(s) for Shahid Sanchez. I have reviewed the report(s) and am incorporating any findings in the treatment plan of this patient where applicable. A&P - Nephrology Assessment/Plan (1) Acute kidney injury superimposed on CKD: Assessment/Problem Details: He has MAYLIN on CKD likely due to the cardiorenal syndrome. He has no evidence ofobstructive uropathy on CAT scan. (2) Hyponatremia: Assessment/Problem Details: He has a hypervolemic hyponatremia. (3) Acute on chronic anemia: Assessment/Problem Details: Patient has acute on chronic anemia possibly due to occult GI bleed. He was transfused 1 unit of PRBC. (4) Acute on chronic systolic (congestive) heart failure: Assessment/Problem Details: Patient appears to have acute on chronic congestive heart failure likely due to thus symptomatic anemia (5) Severe aortic stenosis: Assessment/Problem Details: He has a severe aortic stenosis. Cardiology recommended outpatient TAVR. Plan * No need for emergent hemodialysis now. Will continue to assess its needs on regular basis. * Continue Lasix drip 20 mg/h. * Continue to hold home dose of the valsartan and spironolactone. * Monitor H&H and transfuse as needed to keep the hemoglobin greater than 8 g/dL. * Check renal function daily and monitor input output * Continue to hold home dose of the metformin. Continue DM management as per the primary hospitalist team. The goal of blood sugar is between 100 to 150 mg/dL. * Check renal function daily and monitor for output * I spoke to the patient's grand [id number] about possible need of dialysis if renal function continues to decline. I also explained to the patient. Documented By: Vaelrio Saeed MD 10/21/231651 Signed By: <Electronically signed by Valerio Saeed MD> 10/21/231656 [facility] Work Phone: 1([phone]) 255-111007-25-2024 Progress note Author Joby Pinedo [facility] October 21, 2023 3:43pm Note Date/Time October 21, 2023 3:43 pm [facility] [address] [place] [address] Cardiology Progress Note Signed Patient: Shahid Sanchez MR#: [id number] : 1940 Acct:[id number] Age/Sex: 83 / M Adm Date: 4 Loc: Room: [address] [place] [address] Type: ADM IN Attending Dr: Mary Colin MD Copies to: ~ Date of Service: 10/21/2023 Subjective Interval history: Patient feels better. Hemoglobin stable Exam Physical Exam Vital Signs: Temp Pulse Resp BP Pulse Ox O2 Del Method O2 Flow Rate 97.4 F L 69 22 130/69 96 Nasal Cannula 3 10/21/23 11:59 10/21/23 11:59 10/21/23 11:59 10/21/23 11:59 10/21/23 11:59 10/21/23 11:59 10/21/23 11:59 Eyes General: appearance normal, both eyes and all related structures Pupils: PERRL Neck Neck: normal visual inspection, supple and no lymphadenopathy noted Neck mass: No Thyroid: thyroid normal Carotids: normal carotid upstroke Chest Chest palpation & inspection: normal inspection of the chest Resp Effort & Inspection: normal respiratory effort Auscultation: rales and rhonchi Cardio Palpation: normal PMI Rhythm: abnormal rhythm irregularly irregular Heart Sounds: S1 normal, S2 normal and murmur systolic III/ GI Palpation: soft and no hepatosplenomegaly Percussion: normal to percussion Auscultation: normal bowel sounds Skin General: dry skin and other (Hyperpigmentation of the lower extremity below the knee) Extrem General: full ROM, capillary refill normal and pedal edema bilaterally Location:of the leg Severity: 2+ Objective Labs 10/21/23 04:50 10/21/23 04:50 Labs: Laboratory Results - last 24 hr 10/19/23 10/20/23 10/20/23 15:26 16:13 20:59 Corrected WBC Uncorrected WBC Count RBC Hgb Hct MCV MCH MCHC RDW Plt Count MPV Neut % (Auto) Lymph % (Auto) [place] % (Auto) Eos % (Auto) Baso % (Auto) Nucleat RBC Rel Count Neut # (Auto) Lymph # (Auto) [place] # (Auto) Eos # (Auto) Baso # (Auto) PHA Creatinine Clear Sodium Potassium Chloride Carbon Dioxide Anion Gap BUN Creatinine Est GFR (CKD-EPI) Glucose POC Glucose 185 155 Calcium Total Bilirubin AST ALT Alkaline Phosphatase Total Protein Albumin Globulin Albumin/Globulin Ratio Blood Type AB Negative Antibody Screen Negative Crossmatch (AHG) See Detail 10/21/23 10/21/23 10/21/23 04:50 07:58 12:03 Corrected WBC 11.0 H Uncorrected WBC Count 11.0 H RBC 2.40 L Hgb 7.8 L Hct 22.0 L MCV 91.8 MCH 32.6 MCHC 35.5 RDW 16.1 H Plt Count 141 L MPV 7.5 Neut % (Auto) 88.6 Lymph % (Auto) 5.9 [place] % (Auto) 4.7 Eos % (Auto) 0.6 Baso % (Auto) 0.2 Nucleat RBC Rel Count 0.1 Neut # (Auto) 9.7 H Lymph # (Auto) 0.6 L [place] # (Auto) 0.5 Eos # (Auto) 0.1 Baso # (Auto) 0.0 PHA Creatinine Clear 17.32 Sodium 129 L Potassium 4.4 Chloride 94 L Carbon Dioxide 23.5 Anion Gap 15.9 H BUN 93 H Creatinine 3.93 H Est GFR (CKD-EPI) 14.542 Glucose 116 H POC Glucose 149 246 Calcium 7.8 L Total Bilirubin 0.9 AST 45 H ALT 38 Alkaline Phosphatase 67 Total Protein 5.5 L Albumin 2.8 L Globulin 2.7 Albumin/Globulin Ratio 1.0 Blood Type Antibody Screen Crossmatch (AHG) A&P - Cardiology (1) Acute anemia: Code(s): D64.9 - Anemia, unspecified Plan Assessment 1. Evidence of acute GI bleed and anemia seen by GI felt to be high risk for endoscopy locally 2. Chronic systolic dysfunction and aortic valve disease. SEBASTIÁN showed severe aortic stenosis with LV systolic dysfunction. 3. 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 Severe aortic stenosis patient is scheduled to undergo TAVR early October 5. Sick sinus syndrome status post permanent pacemaker implantation 6. 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 Long-term anticoagulation due to atrial fibrillation recent documentation ofleft atrial appendage organized thrombus 8. Pulmonary hypertension 9. History of colon cancer status postresection with no recurrence 10. History of hypertension 11. Acute on chronic kidney disease creatinine slowly improving Plan 1. Continue to hold Eliquis. I explained the patient he is at risk for embolicevent 2. Blood transfusion if needed 3. Diuretics was initiated by the renal service 4. Patient might need endoscopy prior to TAVR. GI do not feel comfortable doing endoscopy locally 5. Down the road consider Watchman device Documented By: Joby Pinedo MD 10/21/23 1541 Signed By: <Electronically signed by MD Joby Pinedo> 10/21/23 1543 [facility] Work Phone: [phone]) 285-782307-25-2024 Progress note Author Mary Colin [facility] October 21, 2023 12:06pm Note Date/Time October 21, 2023 12:0 1pm [facility] [address] [place] [address] Hospitalist Progress Note Signed Patient: Shahid Sanchez MR#: [id number] : 1940 Acct:[id number] Age/Sex: 83 / M Adm Date: 4 Loc: Room: [address] [place] [address] Type: ADM IN Attending Dr: Mary Colin MD Copies to: ~ Date of Service: 10/21/2023 Subjective Subjective Narrative: Patient was seen evaluated at bedside, he is out of bed to chair, BP stable. He is on 3 L nasal cannula, denies any nausea, vomiting. Patient still appears fluid overloaded, on Lasix drip per nephrology., After adding laxatives, patienthad large BM according to him and it was brown in color. no signs of overt GI bleed at this time. Cardio, nephro and GI inputs appreciated. Exam Physical Exam Vital Signs: Temp Pulse Resp BP Pulse Ox O2 Del Method O2 Flow Rate 97.4 F L 69 22 130/69 96 Nasal Cannula 3 10/21/23 11:59 10/21/23 11:59 10/21/23 11:59 10/21/23 11:59 10/21/23 11:59 10/21/23 11:59 10/21/23 11:59 Narrative: Const General: cooperative, more conversant HEENT Normal oropharyngeal mucosa without any ulcers or exudates Eyes: Conjunctiva pale Pulmonary Auscultation: Diminished breath sounds, no crackles, no wheezes Cardiovascular Rate: normal rate Rhythm: regular rhythm Heart Sounds: S1 normal, S2 normal and systolic murmur. GI Inspection: non-distended Palpation: soft, not firm and nontender. No rigidity or rebound. Deferred Neuro General: alert, awake and oriented x3. No obvious new focal deficit Musculoskeletal: normal range of motion Extrem General: no cyanosis, + pedal edema Psych Appearance: appropriate affect. Grossly normal. Objective Lab Results 10/21/23 04:50 10/21/23 04:50 Meds Allergies and Active Meds Allergies No Known Allergies Allergy (Verified 10/19/23 13:01) Active Meds: Active Medications Generic Name Dose Route Start Last Admin Trade Name Freq PRN Reason Stop Dose Admin Acetaminophen 650 mg 10/19/23 16:02 Acetaminophen 325 Mg Tablet PO 10/18/24 16:01 Q6HR PRN Pain Scale 1 - 3 or fever Dextrose 0 gm 10/20/23 09:51 Dextrose 50% In Water 25 Gm/50 Ml Syringe IV-PUSH 10/19/24 09:50 PRN PRN Hypoglycemia Docusate Sodium 200 mg 10/20/23 13:43 Docusate 100 Mg Capsule PO 10/19/24 13:42 BID PRN Constipation Glucose 0 gm 10/20/23 09:51 Dextrose 40% Gel 15 Gm Tube PO 10/19/24 09:50 PRN PRN Hypoglycemia Furosemide 500 mg/ Sodium 100 mls @ 4 mls/hr 10/20/23 11:30 10/21/23 11:19 Chloride IV 10/19/24 11:29 Not Given .Q24H APPLE 20 MG/HR Sodium Chloride 500 mls @ 20 mls/hr 10/21/23 10:23 0.9 % Sodium Chloride IV 10/22/23 10:22 PROTOCOL PRN BLOOD TRANSFUSION Insulin Aspart 0 units 10/20/23 12:00 10/21/23 08:45 Insulin Aspart 300 Units/3 Ml Insuln.Pen SUBCUT 10/19/24 11:59 Not Given TID.WM.[facility] APPLE Protocol Morphine Sulfate 2 mg 10/19/23 16:02 10/21/23 08:51 Morphine Sulfate 2 Mg/Ml Vial IV-PUSH 2 mg Q4H PRN Administration Pain Scale 8 - 10 Pantoprazole Sodium 40 mg 10/19/23 21:00 10/21/23 08:50 Pantoprazole 40 Mg Vial IV-PUSH 10/18/24 20:59 40 mg BID APPLE Administration Prochlorperazine Edisylate 5 mg 10/19/23 16:02 Prochlorperazine Edisylate 10 Mg/2 Ml Vial IV-PUSH 10/18/24 16:01 Q4H PRN Nausea And Vomiting Sennosides 17.6 mg 10/20/23 13:43 Sennosides Syrup 8.8 Mg/5 Ml Udc PO 10/19/24 21:59 HS PRN constipation Sodium Chloride 0 ml 10/19/23 13:00 10/20/23 21:06 Sodium Chloride 0.9 % 10 Ml Syringe IV-PUSH 10/18/24 12:59 10 ml PRN PRN Administration Flush Sodium Chloride 10 ml 10/19/23 16:02 10/21/23 08:51 Sodium Chloride 0.9 % 10 Ml Vial.Pf INJECTION 10/18/24 16:01 10 ml PRN PRN Administration Dilution Sodium Chloride 10 ml 10/19/23 16:02 Sodium Chloride 0.9 % 10 Ml Syringe IV-PUSH 10/18/24 16:01 PRN PRN Flush A&P - Hospitalist Assessment/Plan (1) Acute hyponatremia: (2) Acute anemia: (3) Acute kidney injury superimposed on CKD: (4) Chronic systolic dysfunction of left ventricle: (5) Severe aortic stenosis: (6) A-fib: Plan Acute blood loss anemia Symptomatic anemia -BP stable today. -Maintain 2 large bore IV access -Transfuse as needed to keep Hb above 8 or symptomatic anemia or ongoing bleeding -Received 1 unit of blood with improvement in Hb to 8.4, today down to 7.8. willadd another unit of pRBC given his cardiac hx. -Continue Protonix BID -Antiemetics IV/IM as directed -Hold antiplatelets and anticoagulation -Avoid NSAIDs -At this point, no evidence of overt GI bleed. Had large Brown BM while here. -GI consulted. input appreciated. -Monitor while here for any overt GI bleed. Monitor H/H. -Monitor on telemetry MAYLIN on CKD Hypervolemic hyponatremia -kidney function slightly improving with Lasix drip. -Na 129 improving -Continue on Lasix Drip per nephrology -Nephrology input appreciated. Acute on chronic systolic CHF L Atrial Thrombus on AC Severe pulmonary hypertension Sick sinus syndrome status post pacemaker Atrial fibrillation Single-vessel CAD Severe aortic stenosis -Continue on IV Lasix drip -Monitor I/Os -Healthy heart diet -Monitor on tele -Hold AC for now -Cardiology input appreciated. Home medications resumed as appropriate Diet: soft GI DVT ppx: SCDs GI ppx: PPI Code status: Full Status: inpatient Discussed with patient at bedside. All questions answered. In agreement with theabove plan Mary Blackburn MD Internal Medicine Hospitalist Attending Physician Documented By: Mary Colin MD 10/21/2302 26 Signed By: <Electronically signed by Mary Colin MD> 10/21/23 1206 [facility] Work Phone: [phone]) 756-669307-24-2024 Consult note Author Joby Pinedo [facility] October 20, 2023 4:05pm Note Date/Time October 20, 2023 4:00 pm [facility] [address] [place] [address] Cardiology Consult Note Signed Patient: Shahid Sanchez MR#: [id number] : 1940 Acct:[id number] Age/Sex: 83 / M Adm Date: 4 Loc: Room: [address] [place] [address] Type: ADM IN Attending Dr: Mary Colin MD Copies to: Al Raymundo Jr, MD Mary Spivey MD~ Cardiology HPI History of Present Illness Consult Date: 10/20/23 Reason for Consult: Cardiac consultation requested for evaluation of heart failure, atrial fibrillation and anticoagulation management HPI: Mr. Sanchez is a 83 year old male well-known to me. He was recently evaluated with a finding of severe aortic stenosis, LV systolic dysfunction and the presence of organized left atrial thrombus. The patient treated with long-term anticoagulation. The patient brought to the hospital after a fall. He was evaluated in the emergency room and noted to be severely anemic with hemoglobin around 7. There was evidence also of acute kidney injury and volume overload. The patient was given a blood transfusion. He was seen by the renal service andIV diuretics has been reinstituted. The patient reports symptoms of fatigue andtiredness. He reports shortness of breath lower extremity edema. He denies anychest pain. Review of Systems Constitutional Constitutional: Reports fatigue and Reports weakness Eyes Eyes: Reports system reviewed and no additional complaints, except as documented ENT Ears, Nose, Mouth, and Throat: Reports system reviewed and no additional complaints, except as documented Cardiovascular Cardiovascular: Reports dyspnea on exertion and Reports leg edema Respiratory Respiratory: Reports dyspnea on exertion Gastrointestinal Gastrointestinal: Reports system reviewed and no additional complaints, except as documented Genitourinary Genitourinary: Reports system reviewed and no additional complaints, except as documented Integumentary/Breasts Comments: Lower extremity edema and hyperpigmentation of the lower extremity Neurologic Neurologic: Reports system reviewed and no additional complaints, except as documented Psychiatric Psychiatric: Reports system reviewed and no additional complaints, except as documented Endocrine Endocrine: Reports system reviewed and no additional complaints, except as documented Hematologic/Lymphatic Hematologic/Lymphatic: Reports system reviewed and no additional complaints, except as documented Allergic/Immunologic Allergic/Immunologic: Reports system reviewed and no additional complaints, except as documented [facility] Source: Unable to Obtain Medical History (Updated 10/20/23 @ 13:16 by Ananth Wilde MD) Skin cancer head, removed yearly Arthritis Hearing impaired hearing aids, doesnt always wear Arrhythmia Hypertension Hypercholesteremia CERVANTES (dyspnea on exertion) Chronic UTI Rheumatoid arthritis Hypothyroidism Diabetes mellitus, type 2 BPH (benign prostatic hyperplasia) Former smoker GUNNER (obstructive sleep apnea) does not use cpap History of colon cancer A-fib Surgical History History of phacoemulsification of cataract of both eyes with intraocular lens implantation History of partial surgical removal of colon History of cholecystectomy History of total bilateral knee replacement History of elbow surgery bilateral History of repair of rotator cuff bilateral History of carotid angioplasty Family History Father Diabetes Sister Cancer Sister Cancer Brother Heart failure Father Diabetes Mother Cancer Legacy FamHx Problem: Diagnosed with Cancer Malignant neoplasm of breast Sister Cancer Legacy FamHx Problem: Diagnosed with Cancer Sister Cancer Legacy FamHx Problem: Diagnosed with Cancer Social History Smoking Status: Former smoker Tobacco Type: cigarettes Substance Use Type: None Meds Medications and Allergies Allergies No Known Allergies Allergy (Verified 10/19/23 13:01) Home Medications apixaban 5 mg tablet (Eliquis) 5 mg PO BID 03/10/23 [History Confirmed 10/19/23] cholecalciferol (vitamin D3) 25 mcg (1,000 unit) chewable tablet (Vitamin D3) 25mcg PO DAILY 03/10/23 [History Confirmed 10/19/23] dutasteride 0.5 mg capsule 0.5 mg PO QPM 03/10/23 [History Confirmed 10/19/23] folic acid 20 mg capsule 20 mg PO DAILY 03/10/23 [History Confirmed 10/19/23] levothyroxine 50 mcg tablet 50 mcg PO DAILY 03/10/23 [History Confirmed 10/19/23] metformin 850 mg tablet 850 mg PO DAILY 03/10/23 [History Confirmed 10/19/23] methenamine hippurate 1 gram tablet (Hiprex) 1 g PO BID 03/10/23 [History Confirmed 10/19/23] montelukast 10 mg tablet (Singulair) 10 mg PO DAILY 03/10/23 [History Confirmed 10/19/23] rosuvastatin 10 mg tablet (Crestor) 10 mg PO 4XW 03/10/23 [History Confirmed 10/19/23] tamsulosin 0.4 mg capsule 0.4 mg PO HS 03/10/23 [History Confirmed 10/19/23] furosemide 40 mg tablet 80 mg PO BID 09/09/23 [History Confirmed 10/19/23] metoprolol succinate 50 mg tablet,extended release 24 hr 50 mg PO DAILY 30 days #30 tabs 09/15/23 [Rx Confirmed 10/19/23] spironolactone 25 mg tablet 25 mg PO DAILY 30 days #30 tabs 09/15/23 [Rx Confirmed 10/19/23] valsartan 40 mg tablet 40 mg PO DAILY 30 days #30 tabs 09/15/23 [Rx Confirmed 10/19/23] hydrocodone 5 mg-acetaminophen 325 mg tablet 1 tab PO Q4HR PRN pain 10/19/23 [History Confirmed 10/19/23] methocarbamol 500 mg tablet 500 mg PO Q8HR PRN muscle pain 10/19/23 [History Confirmed 10/19/23] vericiguat 10 mg tablet (Verquvo) 10 mg PO DAILY 10/19/23 [History Confirmed 10/19/23] Exam Physical Exam Vital Signs: Temp Pulse Resp BP Pulse Ox O2 Del Method O2 Flow Rate 97.2 F L 72 24 103/53 L 95 Nasal Cannula 3 10/20/23 11:54 10/20/23 11:54 10/20/23 11:54 10/20/23 11:54 10/20/23 11:54 10/20/23 11:54 10/20/23 11:54 Const General: cooperative and other (Skin color is pale with edema conjunctiva) HEENT Head: atraumatic Mouth: oral mucosae normal Eyes General: appearance normal, both eyes and all related structures Pupils: PERRL Neck Neck: normal visual inspection, supple and no lymphadenopathy noted Neck mass: No Thyroid: thyroid normal Carotids: normal carotid upstroke Chest Chest palpation & inspection: normal inspection of the chest Resp Effort & Inspection: normal respiratory effort Auscultation: rales and rhonchi Cardio Palpation: normal PMI Rhythm: abnormal rhythm irregularly irregular Heart Sounds: S1 normal, S2 normal and murmur systolic III/ GI Palpation: soft and no hepatosplenomegaly Percussion: normal to percussion Auscultation: normal bowel sounds Skin General: dry skin and other (Hyperpigmentation of the lower extremity below the knee) Neuro General: patient alert, patient awake, patient oriented x3, tone normal and moves all extremities Extrem General: full ROM, capillary refill normal and pedal edema bilaterally Location:of the leg Severity: 2+ Psych Mental Status: mental status grossly normal Results - Cardiology Labs 10/20/23 04:43 10/20/23 04:43 Lab results: Cardiac Enzymes 10/19/23 10/19/23 10/20/23 Range/Units 14:10 14:10 04:43 AST 49 H (13-39) U/L Total Creatine Kinase 89 Cancelled (30-223) U/L CBC 10/20/23 Range/Units 04:43 RBC 2.58 L (3.90-5.60) X10E6/uL Hgb 8.4 L (13.0-17.0) g/dL Hct 23.6 L (38.8-50.0) % Plt Count 171 (150-450) x10E3/uL Neut # (Auto) 10.5 H (1.8-7.7) x10E3/uL Lymph # (Auto) 1.1 (1.00-4.8) x10E3/uL [place] # (Auto) 0.4 (0.0-0.8) x10E3/uL Eos # (Auto) 0.0 (0.0-0.45) x10E3/uL Baso # (Auto) 0.0 (0.0-0.2) x10E3/uL Comprehensive Metabolic Panel 10/20/23 Range/Units 04:43 Sodium 128 L (136-145) mmol/L Potassium 4.7 (3.5-5.1) mmol/L Chloride 92 L (98-107) mmol/L Carbon Dioxide 24.6 (21.0-31.0) mmol/L BUN 88 H (7-25) mg/dL Creatinine 4.07 H D (0.70-1.30) mg/dL Glucose 160 H (70-100) mg/dL Calcium 8.1 L (8.6-10.3) mg/dL AST 49 H (13-39) U/L ALT 41 (7-52) U/L Alkaline Phosphatase 64 (34-104) U/L Total Protein 6.0 L (6.4-8.9) gm/dL Albumin 3.1 L (3.5-5.7) gm/dL Intake and Output 10/19/23 10/20/23 10/20/23 23:59 07:59 15:59 Intake Total 200 / 1200 1000 / 1200 Output Total 0 / 0 Balance 200 / 1200 1000 / 1200 Intake: IV 1000 / 1000 Sodium Chloride 0.9% 1,000 ml 1 1000 / 1000 ,000 ml @ 75 mls/hr IV .[id number] [facility] Rx#:[id number] Oral 200 / 200 Output: Urine Amount (Catheter) 0 / 0 [place] 0 / 0 Other: Total Intake (Blood Product) Cumulative Amt Irradiated Leuko Red Rbc Unit 325 [id number] # Unmeasured Voids 1 Weight 101.7 kg 101.7 kg Date of Last Bowel Movement 10/19/23 10/19/23 Patient Weight 10/20/23 23:59 Weight 101.7 kg Lab 10/19/23 10/20/23 14:10 04:43 PT 22.8 H 21.2 H INR 2.0 1.9 APTT 39.2 H EKG Interpretations EKG Attestation EKG: I reviewed this ECG and interpreted as documented below: (Atrial fibrillation with controlled rate and right bundle branch block) A&P - Cardiology (1) Acute anemia: Code(s): D64.9 - Anemia, unspecified Plan Assessment 1. Evidence of acute GI bleed and anemia seen by GI felt to be high risk for endoscopy locally 2. Chronic systolic dysfunction and aortic valve disease. SEBASTIÁN showed severe aortic stenosis with LV systolic dysfunction. 3. 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 Severe aortic stenosis patient is scheduled to undergo TAVR early October 5. Sick sinus syndrome status post permanent pacemaker implantation 6. 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 Long-term anticoagulation due to atrial fibrillation recent documentation ofleft atrial appendage organized thrombus 8. Pulmonary hypertension 9. History of colon cancer status postresection with no recurrence 10. History of hypertension 11. Acute on chronic kidney disease Plan 1. Hold Eliquis. I explained the patient he is at risk for embolic event 2. Blood transfusion 3. Diuretics was initiated by the renal service 4. Unfortunately with the patient history of colon cancer and presentation withGI bleed endoscopy is high highly indicated before his TAVR. This felt to be a higher risk procedure to be done locally. GI suggesting transfer to [facility] which I agree with 5. Down the road consider Watchman device Documented By: Joby Pinedo MD 10/20/23 1550 Signed By: <Electronically signed by MD Joby Pinedo> 10/20/23 1601 [facility] Work Phone: 1(656) 912-628607-24-2024 Progress note Author Mary Colin [facility] October 20, 2023 1:53pm Note Date/Time October 20, 2023 1:45 pm [facility] [address] [place] [address] Hospitalist Progress Note Signed Patient: Shahid Sanchez MR#: [id number] : 1940 Acct:[id number] Age/Sex: 83 / M Adm Date: 4 Loc: Room: 6F3934-2 Type: ADM IN Attending Dr: Mary Colin MD Copies to: ~ Date of Service: 10/20/2023 Subjective Subjective Narrative: Patient was seen evaluated at bedside, he is out of bed to chair, blood pressureborderline but stable, he is on 3 L nasal cannula, denies any nausea, vomiting, tolerated clear liquids, will advance to soft GI diet. Patient appears fluid overloaded, started on Lasix drip per nephrology. H/H stable after blood transfusion, no signs of overt GI bleed at this time. He has not had BM in couple of days, will add laxatives. Exam Physical Exam Vital Signs: Temp Pulse Resp BP Pulse Ox O2 Del Method O2 Flow Rate 97.2 F L 72 24 103/53 L 95 Nasal Cannula 3 10/20/23 11:54 10/20/23 11:54 10/20/23 11:54 10/20/23 11:54 10/20/23 11:54 10/20/23 11:54 10/20/23 11:54 Narrative: Const General: cooperative, more conversant HEENT Normal oropharyngeal mucosa without any ulcers or exudates Eyes: Conjunctiva pale Pulmonary Auscultation: Diminished breath sounds, no crackles, no wheezes Cardiovascular Rate: normal rate Rhythm: regular rhythm Heart Sounds: S1 normal, S2 normal and no murmurs GI Inspection: non-distended Palpation: soft, not firm and nontender. No rigidity or rebound. Deferred Neuro General: alert, awake and oriented x3. No obvious new focal deficit Musculoskeletal: normal range of motion Extrem General: no cyanosis, ++ pedal edema Psych Appearance: appropriate affect. Grossly normal. Objective Lab Results 10/20/23 04:43 10/20/23 04:43 Meds Allergies and Active Meds Allergies No Known Allergies Allergy (Verified 10/19/23 13:01) Active Meds: Active Medications Generic Name Dose Route Start Last Admin Trade Name Bert PRN Reason Stop Dose Admin Acetaminophen 650 mg 10/19/23 16:02 Acetaminophen 325 Mg Tablet PO 10/18/24 16:01 Q6HR PRN Pain Scale 1 - 3 or fever Bisacodyl 5 mg 10/20/23 13:42 Bisacodyl 5 Mg Tablet.Dr PO 10/20/23 13:43 ONCE ONE Dextrose 0 gm 10/20/23 09:51 Dextrose 50% In Water 25 Gm/50 Ml Syringe IV-PUSH 10/19/24 09:50 PRN PRN Hypoglycemia Docusate Sodium 200 mg 10/20/23 13:43 Docusate 100 Mg Capsule PO 10/19/24 13:42 BID PRN Constipation Glucose 0 gm 10/20/23 09:51 Dextrose 40% Gel 15 Gm Tube PO 10/19/24 09:50 PRN PRN Hypoglycemia Sodium Chloride 500 mls @ 20 mls/hr 10/19/23 15:03 10/19/23 18:05 0.9 % Sodium Chloride IV 10/20/23 15:02 20 mls/hr PROTOCOL PRN Administration BLOOD TRANSFUSION Furosemide 500 mg/ Sodium 100 mls @ 4 mls/hr 10/20/23 11:30 10/20/23 12:00 Chloride IV 10/19/24 11:29 20 mg/hr .Q24H APPLE 4 mls/hr Administration 20 MG/HR Insulin Aspart 0 units 10/20/23 12:00 10/20/23 12:01 Insulin Aspart 300 Units/3 Ml Insuln.Pen SUBCUT 10/19/24 11:59 2 units TID.WM.HS APPLE Administration Protocol Morphine Sulfate 2 mg 10/19/23 16:02 10/20/23 10:04 Morphine Sulfate 2 Mg/Ml Vial IV-PUSH 2 mg Q4H PRN Administration Pain Scale 8 - 10 Pantoprazole Sodium 40 mg 10/19/23 21:00 10/20/23 08:33 Pantoprazole 40 Mg Vial IV-PUSH 10/18/24 20:59 40 mg BID APPLE Administration Polyethylene Glycol 17 gm 10/20/23 13:42 Polyethylene Glycol 3350 17 Gm Powd.Pack PO 10/20/23 13:43 ONCE ONE Prochlorperazine Edisylate 5 mg 10/19/23 16:02 Prochlorperazine Edisylate 10 Mg/2 Ml Vial IV-PUSH 10/18/24 16:01 Q4H PRN Nausea And Vomiting Sennosides 17.6 mg 10/20/23 13:43 Sennosides Syrup 8.8 Mg/5 Ml Udc PO 10/19/24 21:59 HS PRN constipation Sodium Chloride 0 ml 10/19/23 13:00 10/20/23 10:05 Sodium Chloride 0.9 % 10 Ml Syringe IV-PUSH 10/18/24 12:59 10 ml PRN PRN Administration Flush Sodium Chloride 10 ml 10/19/23 16:02 10/20/23 08:33 Sodium Chloride 0.9 % 10 Ml Vial.Pf INJECTION 10/18/24 16:01 10 ml PRN PRN Administration Dilution Sodium Chloride 10 ml 10/19/23 16:02 Sodium Chloride 0.9 % 10 Ml Syringe IV-PUSH 10/18/24 16:01 PRN PRN Flush A&P - Hospitalist Assessment/Plan (1) Acute hyponatremia: (2) Acute anemia: (3) Acute kidney injury superimposed on CKD: (4) Chronic systolic dysfunction of left ventricle: (5) Severe aortic stenosis: (6) A-fib: Plan Acute blood loss anemia Symptomatic anemia -BP borderline stable on admission. Fell at home prior coming here. -Maintain 2 large bore IV access -Transfuse as needed to keep Hb above 7 or symptomatic anemia or ongoing bleeding -Received 1 unit of blood with improvement in Hb to 8.4 -Continue Protonix BID -Antiemetics IV/IM as directed -Hold antiplatelets and anticoagulation -Avoid NSAIDs -At this point, no evidence of overt GI bleed -GI consulted. input appreciated. -Monitor while here for any overt GI bleed. Monitor H/H. -Monitor on telemetry MAYLIN on CKD Hypervolemic hyponatremia -Worsening kidney function. Cr 4.07/BUN 88 -Na 128 -Started on Lasix Drip per nephrology -Nephrology input appreciated. Acute on chronic systolic CHF L Atrial Thrombus on AC Severe pulmonary hypertension Sick sinus syndrome status post pacemaker Atrial fibrillation Single-vessel CAD Severe aortic stenosis -Started on IV Lasix drip -Monitor I/Os -Healthy heart diet -Monitor on tele -Hold AC for now -Consult cardiology for input regarding CHF and AC. Home medications resumed as appropriate Diet: soft GI DVT ppx: SCDs GI ppx: PPI Code status: Full Status: inpatient Discussed with patient at bedside. All questions answered. In agreement with theabove plan Mary Blackburn MD Internal Medicine Hospitalist Attending Physician Documented By: Mary Colin MD 10/20/23 13 44 Signed By: <Electronically signed by Mary Colin MD> 10/20/23 7947 [facility] Work Phone: 1(844) 114-402707-24-2024 Consult note Author Ananth Wilde [facility] October 20, 2023 1:20pm Note Date/Time October 20, 2023 1:20 pm [facility] [address] [place] [address] Gastroenterology Consult Note Signed Patient: Shahid Sanchez MR#: [id number] : 1940 Acct:[id number] Age/Sex: 83 / M Adm Date: 4 Loc: Room: 1E5106-4 Type: ADM IN Attending Dr: Mary Colin MD Copies to: MD Al Olmos Jr, DO Mary Colin MD~ HPI Data of Consult Date of Consultation: 10/20/23 Requesting Physician: Mary Colin MD Consult Narrative History of present illness: Mr. Sanchez is a 83 year old male with a pmhx significant for severe , severe pulmonary HTN, HFrEF, chronic anemia, sick sinus syndrome, afib, HLD and HTN whois admitted for weakness. GI is consulted for anemia. The patient is not the most reliable historian. He denies any overt GI bleeding. He tells me he had a work up with EGD and colonoscopy around the first of the year in preparation forhis TAVR. He is unclear of the results but states he thinks they saw some bleeding . When I ask if he ever had a pill camera, he states they've put all kinds of cameras inside me . He denies OTC nsaid use. Denies drug/etoh use. cc:: CC: Mary Colin MD Review of Systems Review of Systems Unobtainable due to mental status [facility] Medical History (Updated 10/20/23 @ 13:16 by Ananth Wilde MD) Skin cancer head, removed yearly Arthritis Hearing impaired hearing aids, doesnt always wear Arrhythmia Hypertension Hypercholesteremia CERVANTES (dyspnea on exertion) Chronic UTI Rheumatoid arthritis Hypothyroidism Diabetes mellitus, type 2 BPH (benign prostatic hyperplasia) Former smoker GUNNER (obstructive sleep apnea) does not use cpap History of colon cancer A-fib Surgical History History of phacoemulsification of cataract of both eyes with intraocular lens implantation History of partial surgical removal of colon History of cholecystectomy History of total bilateral knee replacement History of elbow surgery bilateral History of repair of rotator cuff bilateral History of carotid angioplasty Family History Father Diabetes Sister Cancer Sister Cancer Brother Heart failure Father Diabetes Mother Cancer Legacy FamHx Problem: Diagnosed with Cancer Malignant neoplasm of breast Sister Cancer Legacy FamHx Problem: Diagnosed with Cancer Sister Cancer Legacy FamHx Problem: Diagnosed with Cancer Social History Smoking Status: Former smoker Tobacco Type: cigarettes Substance Use Type: None Meds Medications and Allergies Allergies No Known Allergies Allergy (Verified 10/19/23 13:01) Home Medications apixaban 5 mg tablet (Eliquis) 5 mg PO BID 03/10/23 [History Confirmed 10/19/23] cholecalciferol (vitamin D3) 25 mcg (1,000 unit) chewable tablet (Vitamin D3) 25mcg PO DAILY 03/10/23 [History Confirmed 10/19/23] dutasteride 0.5 mg capsule 0.5 mg PO QPM 03/10/23 [History Confirmed 10/19/23] folic acid 20 mg capsule 20 mg PO DAILY 03/10/23 [History Confirmed 10/19/23] levothyroxine 50 mcg tablet 50 mcg PO DAILY 03/10/23 [History Confirmed 10/19/23] metformin 850 mg tablet 850 mg PO DAILY 03/10/23 [History Confirmed 10/19/23] methenamine hippurate 1 gram tablet (Hiprex) 1 g PO BID 03/10/23 [History Confirmed 10/19/23] montelukast 10 mg tablet (Singulair) 10 mg PO DAILY 03/10/23 [History Confirmed 10/19/23] rosuvastatin 10 mg tablet (Crestor) 10 mg PO 4XW 03/10/23 [History Confirmed 10/19/23] tamsulosin 0.4 mg capsule 0.4 mg PO HS 03/10/23 [History Confirmed 10/19/23] furosemide 40 mg tablet 80 mg PO BID 09/09/23 [History Confirmed 10/19/23] metoprolol succinate 50 mg tablet,extended release 24 hr 50 mg PO DAILY 30 days #30 tabs 09/15/23 [Rx Confirmed 10/19/23] spironolactone 25 mg tablet 25 mg PO DAILY 30 days #30 tabs 09/15/23 [Rx Confirmed 10/19/23] valsartan 40 mg tablet 40 mg PO DAILY 30 days #30 tabs 09/15/23 [Rx Confirmed 10/19/23] hydrocodone 5 mg-acetaminophen 325 mg tablet 1 tab PO Q4HR PRN pain 10/19/23 [History Confirmed 10/19/23] methocarbamol 500 mg tablet 500 mg PO Q8HR PRN muscle pain 10/19/23 [History Confirmed 10/19/23] vericiguat 10 mg tablet (Verquvo) 10 mg PO DAILY 10/19/23 [History Confirmed 10/19/23] Exam Physical Exam Vital Signs: Temp Pulse Resp BP Pulse Ox O2 Del Method O2 Flow Rate 97.2 F L 72 24 103/53 L 95 Nasal Cannula 3 10/20/23 11:54 10/20/23 11:54 10/20/23 11:54 10/20/23 11:54 10/20/23 11:54 10/20/23 11:54 10/20/23 11:54 Const General: comfortable and no acute distress HEENT Head: normocephalic and atraumatic Eyes Sclera: sclerae normal EOM: EOM intact bilaterally Neck Neck: trachea midline and supple Resp Effort & Inspection: normal respiratory effort and able to speak in complete sentences GI Inspection: non-distended Palpation: soft Skin General: atrophy and dry skin Neuro General: patient alert and patient awake Psych Appearance: grossly normal Mental Status: mental status grossly normal Results - Gastroenterology Labs Labs: Laboratory Results - last 24 hr 10/19/23 10/19/23 10/19/23 14:10 14:10 14:10 Corrected WBC 12.3 H Uncorrected WBC Count 12.3 H RBC 2.31 L Hgb 7.4 L Hct 21.3 L MCV 92.2 MCH 32.1 MCHC 34.8 RDW 16.4 H Plt Count 210 MPV 7.6 Neut % (Auto) 93.9 Lymph % (Auto) 2.5 [place] % (Auto) 3.4 Eos % (Auto) 0.1 Baso % (Auto) 0.1 Nucleat RBC Rel Count 0.1 Neut # (Auto) 11.6 H Lymph # (Auto) 0.3 L [place] # (Auto) 0.4 Eos # (Auto) 0.0 Baso # (Auto) 0.0 Monocyte Dist Width 26.69 H Platelet Estimate Normal Plt Morphology Comment Normal RBC Morphology N/A Polychromasia Poikilocytosis Anisocytosis Slight Microcytosis Tear Drop Cells Ovalocytes Schistocytes PT 22.8 H INR 2.0 APTT 39.2 H PHA Creatinine Clear 20.08 Sodium 127 L Potassium 5.0 Chloride 90 L Carbon Dioxide 23.4 Anion Gap 18.6 H BUN 78 H Creatinine 3.47 H Est GFR (CKD-EPI) 16.885 Glucose 202 H POC Glucose Calcium 8.7 Magnesium 1.8 L Iron 39 L Cancelled TIBC 225 L Cancelled Iron Saturation 17.3 L Transferrin Ferritin Total Bilirubin AST ALT Alkaline Phosphatase Total Creatine Kinase Troponin I High Sens B-Natriuretic Peptide Total Protein Albumin Globulin Albumin/Globulin Ratio Vitamin B12 Folate Blood Type Blood Type Recheck Antibody Screen Crossmatch ([facility]) 10/19/23 10/19/23 10/19/23 14:10 14:10 14:10 Corrected WBC Uncorrected WBC Count RBC Hgb Hct MCV MCH MCHC RDW Plt Count MPV Neut % (Auto) Lymph % (Auto) [place] % (Auto) Eos % (Auto) Baso % (Auto) Nucleat RBC Rel Count Neut # (Auto) Lymph # (Auto) [place] # (Auto) Eos # (Auto) Baso # (Auto) Monocyte Dist Width Platelet Estimate Plt Morphology Comment RBC Morphology Polychromasia Poikilocytosis Anisocytosis Microcytosis Tear Drop Cells Ovalocytes Schistocytes PT INR APTT PHA Creatinine Clear Sodium Potassium Chloride Carbon Dioxide Anion Gap BUN Creatinine Est GFR (CKD-EPI) Glucose POC Glucose Calcium Magnesium Iron TIBC Iron Saturation Cancelled Transferrin 161 L Cancelled Ferritin 797.8 H Cancelled Total Bilirubin 1.3 H AST 40 H ALT 39 Alkaline Phosphatase 68 Total Creatine Kinase 89 Troponin I High Sens B-Natriuretic Peptide Total Protein Albumin Globulin Albumin/Globulin Ratio Vitamin B12 Folate Blood Type Blood Type Recheck Antibody Screen Crossmatch ([facility]) 10/19/23 10/19/23 10/19/23 14:10 15:26 16:53 Corrected WBC Uncorrected WBC Count RBC Hgb Hct MCV MCH MCHC RDW Plt Count MPV Neut % (Auto) Lymph % (Auto) [place] % (Auto) Eos % (Auto) Baso % (Auto) Nucleat RBC Rel Count Neut # (Auto) Lymph # (Auto) [place] # (Auto) Eos # (Auto) Baso # (Auto) Monocyte Dist Width Platelet Estimate Plt Morphology Comment RBC Morphology Polychromasia Poikilocytosis Anisocytosis Microcytosis Tear Drop Cells Ovalocytes Schistocytes PT INR APTT PHA Creatinine Clear Sodium Potassium Chloride Carbon Dioxide Anion Gap BUN Creatinine Est GFR (CKD-EPI) Glucose POC Glucose Calcium Magnesium Iron TIBC Iron Saturation Transferrin Ferritin Total Bilirubin AST ALT Alkaline Phosphatase Total Creatine Kinase Cancelled Troponin I High Sens 28.7 H B-Natriuretic Peptide 315.0 H Total Protein 6.6 Albumin 3.1 L Globulin 3.5 Albumin/Globulin Ratio 0.9 Vitamin B12 Folate Blood Type AB Negative Blood Type Recheck AB Negative Antibody Screen Negative Crossmatch ([facility]) See Detail 10/19/23 10/20/23 10/20/23 22:49 04:43 12:00 Corrected WBC 12.0 H Uncorrected WBC Count 12.0 H RBC 2.58 L Hgb 8.4 L Hct 23.6 L MCV 91.6 MCH 32.6 MCHC 35.6 RDW 16.3 H Plt Count 171 MPV 7.6 Neut % (Auto) 87.2 Lymph % (Auto) 9.3 [place] % (Auto) 3.4 Eos % (Auto) 0.0 Baso % (Auto) 0.1 Nucleat RBC Rel Count 0.1 Neut # (Auto) 10.5 H Lymph # (Auto) 1.1 [place] # (Auto) 0.4 Eos # (Auto) 0.0 Baso # (Auto) 0.0 Monocyte Dist Width Platelet Estimate Normal Plt Morphology Comment Normal RBC Morphology N/A Polychromasia Slight Poikilocytosis Moderate Anisocytosis Moderate Microcytosis Slight Tear Drop Cells Slight Ovalocytes Slight Schistocytes Slight PT 21.2 H INR 1.9 APTT PHA Creatinine Clear 16.72 Sodium 128 L Potassium 4.7 Chloride 92 L Carbon Dioxide 24.6 Anion Gap 16.1 H BUN 88 H Creatinine 4.07 H D Est GFR (CKD-EPI) 13.944 Glucose 160 H POC Glucose 222 188 Calcium 8.1 L Magnesium 1.8 L Iron TIBC Iron Saturation Transferrin Ferritin Total Bilirubin 1.4 H AST 49 H ALT 41 Alkaline Phosphatase 64 Total Creatine Kinase Troponin I High Sens B-Natriuretic Peptide Total Protein 6.0 L Albumin 3.1 L Globulin 2.9 Albumin/Globulin Ratio 1.1 Vitamin B12 515 Folate 2.6 L Blood Type Blood Type Recheck Antibody Screen Crossmatch ([facility]) A&P - Gastroenterology Assessment/Plan (1) Acute on chronic systolic (congestive) heart failure: (2) Acute on chronic anemia: (3) Hyponatremia: (4) Acute kidney injury superimposed on CKD: (5) Aortic stenosis: (6) Pulmonary hypertension: Plan -Patient states he has had recent endoscopic evaluations, with his severe aorticstenosis and CKD he is high risk for AVMs of the small bowel which would not be amenable to endoscopic therapy. -He has severe cardiopulmonary risk factors and unless he was having overt life-threatening bleeding should have optimization in a pulmonary hypertension clinicprior to any endoscopic evaluation. -This [facility] and sounds like he had his previous EGDand colonoscopy. -If he has AVMs of the small bowel then can consider outpatient octreotide through [facility]. -recommend obtaining his outside records from prior workup. Thank you for this consult, little further to add from a GI standpoint. I will peripherally follow. Documented By: Ananth Wilde MD 10/20/23 1302 Signed By: <Electronically signed by Ananth Wilde MD> 10/20/23 1320 [facility] Work Phone: [phone]) 134-112507-24-2024 Consult note Author Valerio Saeed [facility] October 20, 2023 11:31am Note Date/Time October 20, 2023 11:2 3am [facility] [address] [place] [address] Nephrology Consult Note Signed Patient: Shahid Sanchez MR#: [id number] : 1940 Acct:[id number] Age/Sex: 83 / M Adm Date: 4 Loc: Room: [address] [place] [address] Type: ADM IN Attending Dr: Mary Colin MD Copies to: MD Al Gama Jr, DO Obaydah M Daromar, MD~ Providers Consult Date: 10/20/23 Requesting Provider: Mary Colin MD Primary Care Provider: Al Raymundo JR, HPI Reason for Consult: MAYLIN on CKD and hyponatremia management. History of Present Illness: This is a 83-year-old old male with a medical history of HTN, DM, HLD, A-fib, sick sinus syndrome s/p pacemaker, RA, HF R EF, severe aortic stenosis, CAD was presented to the hospital after mechanical fall. Patient in the emergency room was found to have acute on chronic anemia with hemoglobin 7.4 g/dL, MAYLIN with elevated serum creatinine 3.4 mg/dL and hyponatremia with serum sodium 127 mmol/L. Patient was tested positive for stool occult blood test. He was transfused 1 unit of PRBC and was started on IV fluid. He also had a CAT scan abdomen pelvis and chest x-ray which showed finding concerning for CHF.Patient was recently admitted at [facility] for acute CHF exacerbation and respiratory failure. He had echocardiogram which showed EF 35 to 40% and severe . Patient was seen by the cardiology and had SEBASTIÁN which showed severe aortic stenosis moderate to severe pulmonary hypertension. He hada cardiac catheterization which showed single- vessel disease with collaterals. Patient diuretic regimen was also adjusted by cardiology. He was discharged on oral Lasix and spironolactone. Nephrology is consulted for hyponatremia and AKImanagement. Patient was seen and examined bedside reported to have some shortness of breath Review of Systems Review of Systems All other systems reviewed & are negative unless noted below or in HPI Review of systems: Cardiovascular: denies any chest pain, palpitation Pulmonary: denies any cough, hemoptysis Gastrointestinal: denies any nausea, vomiting, diarrhea Neurological :denies any headache, numbness, weakness Endocrine: denies any polyuria, polydipsia Dermatological: denies any itching or rash [facility] Medical History (Updated 10/20/23 @ 11:14 by Valerio Saeed MD) Skin cancer head, removed yearly Arthritis Hearing impaired hearing aids, doesnt always wear Arrhythmia Hypertension Hypercholesteremia CERVANTES (dyspnea on exertion) Chronic UTI Rheumatoid arthritis Hypothyroidism Diabetes mellitus, type 2 BPH (benign prostatic hyperplasia) Former smoker GUNNER (obstructive sleep apnea) does not use cpap History of colon cancer A-fib Surgical History History of phacoemulsification of cataract of both eyes with intraocular lens implantation History of partial surgical removal of colon History of cholecystectomy History of total bilateral knee replacement History of elbow surgery bilateral History of repair of rotator cuff bilateral History of carotid angioplasty Family History Father Diabetes Sister Cancer Sister Cancer Brother Heart failure Father Diabetes Mother Cancer Legacy FamHx Problem: Diagnosed with Cancer Malignant neoplasm of breast Sister Cancer Legacy FamHx Problem: Diagnosed with Cancer Sister Cancer Legacy FamHx Problem: Diagnosed with Cancer Social History Smoking Status: Former smoker Tobacco Type: cigarettes Substance Use Type: None Meds Medications & Allergies Allergies No Known Allergies Allergy (Verified 10/19/23 13:01) Home Medications apixaban 5 mg tablet (Eliquis) 5 mg PO BID 03/10/23 [History Confirmed 10/19/23] cholecalciferol (vitamin D3) 25 mcg (1,000 unit) chewable tablet (Vitamin D3) 25mcg PO DAILY 03/10/23 [History Confirmed 10/19/23] dutasteride 0.5 mg capsule 0.5 mg PO QPM 03/10/23 [History Confirmed 10/19/23] folic acid 20 mg capsule 20 mg PO DAILY 03/10/23 [History Confirmed 10/19/23] levothyroxine 50 mcg tablet 50 mcg PO DAILY 03/10/23 [History Confirmed 10/19/23] metformin 850 mg tablet 850 mg PO DAILY 03/10/23 [History Confirmed 10/19/23] methenamine hippurate 1 gram tablet (Hiprex) 1 g PO BID 03/10/23 [History Confirmed 10/19/23] montelukast 10 mg tablet (Singulair) 10 mg PO DAILY 03/10/23 [History Confirmed 10/19/23] rosuvastatin 10 mg tablet (Crestor) 10 mg PO 4XW 03/10/23 [History Confirmed 10/19/23] tamsulosin 0.4 mg capsule 0.4 mg PO HS 03/10/23 [History Confirmed 10/19/23] furosemide 40 mg tablet 80 mg PO BID 09/09/23 [History Confirmed 10/19/23] metoprolol succinate 50 mg tablet,extended release 24 hr 50 mg PO DAILY 30 days #30 tabs 09/15/23 [Rx Confirmed 10/19/23] spironolactone 25 mg tablet 25 mg PO DAILY 30 days #30 tabs 09/15/23 [Rx Confirmed 10/19/23] valsartan 40 mg tablet 40 mg PO DAILY 30 days #30 tabs 09/15/23 [Rx Confirmed 10/19/23] hydrocodone 5 mg-acetaminophen 325 mg tablet 1 tab PO Q4HR PRN pain 10/19/23 [History Confirmed 10/19/23] methocarbamol 500 mg tablet 500 mg PO Q8HR PRN muscle pain 10/19/23 [History Confirmed 10/19/23] vericiguat 10 mg tablet (Verquvo) 10 mg PO DAILY 10/19/23 [History Confirmed 10/19/23] Active Medications: Active Medications Acetaminophen (Acetaminophen 325 Mg Tablet) 650 mg PO Q6HR PRN PRN Reason: Pain Scale 1 - 3 or fever Stop: 10/18/24 16:01 Dextrose (Dextrose 50% In Water 25 Gm/50 Ml Syringe) 0 gm IV-PUSH PRN PRN PRN Reason: Hypoglycemia Stop: 10/19/24 09:50 Glucose (Dextrose 40% Gel 15 Gm Tube) 0 gm PO PRN PRN PRN Reason: Hypoglycemia Stop: 10/19/24 09:50 Sodium Chloride (0.9 % Sodium Chloride) 500 mls @ 20 mls/hr IV PROTOCOL PRN PRN Reason: BLOOD TRANSFUSION Stop: 10/20/23 15:02 Last Admin: 10/19/23 18:05 Dose: 20 mls/hr Furosemide 500 mg/ Sodium (Chloride) 100 mls @ 4 mls/hr IV .Q24H APPLE Stop: 10/19/24 11:14 Insulin Aspart (Insulin Aspart 300 Units/3 Ml Insuln.Pen) 0 units SUBCUT TID.[facility]; Protocol Stop: 10/19/24 11:59 Morphine Sulfate (Morphine Sulfate 2 Mg/Ml Vial) 2 mg IV-PUSH Q4H PRN PRN Reason: Pain Scale 8 - 10 Last Admin: 10/20/23 10:04 Dose: 2 mg Pantoprazole Sodium (Pantoprazole 40 Mg Vial) 40 mg IV-PUSH BID APPLE Stop: 10/18/24 20:59 Last Admin: 10/20/23 08:33 Dose: 40 mg Prochlorperazine Edisylate (Prochlorperazine Edisylate 10 Mg/2 Ml Vial) 5 mg IV- PUSH Q4H PRN PRN Reason: Nausea And Vomiting Stop: 10/18/24 16:01 Sodium Chloride (Sodium Chloride 0.9 % 10 Ml Syringe) 0 ml IV-PUSH PRN PRN PRN Reason: Flush Stop: 10/18/24 12:59 Last Admin: 10/20/23 10:05 Dose: 10 ml Sodium Chloride (Sodium Chloride 0.9 % 10 Ml Vial.Pf) 10 ml INJECTION PRN PRN PRN Reason: Dilution Stop: 10/18/24 16:01 Last Admin: 10/20/23 08:33 Dose: 10 ml Sodium Chloride (Sodium Chloride 0.9 % 10 Ml Syringe) 10 ml IV-PUSH PRN PRN PRN Reason: Flush Stop: 10/18/24 16:01 Exam Physical Exam Vital Signs: Temp Pulse Resp BP Pulse Ox O2 Del Method O2 Flow Rate 97.6 F 73 22 106/55 L 91 L Nasal Cannula 3 10/20/23 08:28 10/20/23 08:28 10/20/23 08:28 10/20/23 08:28 10/20/23 08:28 10/20/23 08:28 10/20/23 08:28 Narrative: General: Appears comfortable and not in distress Heart: S1-S2, no rub Lung: Bilateral air entry, no wheezing or crackles Abdomen: Soft, positive bowel sounds Extremities: 1+ edema, no cyanosis Head: Atraumatic, normocephalic Ear: No gross hearing Deficit or external ear redness Eyes: No pallor or redness Neck: positive JVD or visible mass Skin: No rashes, warm to touch FOLDER INSPECTOR: Awake,Alert, following simple command Musculoskeletal: No swelling or limitation of movement of the large joints Psychiatric: Cooperative, normal mood and affect Results - Nephrology Labs 10/20/23 04:43 10/20/23 04:43 Labs: 10/19/23 10/19/23 10/19/23 14:10 14:10 14:10 BUN 78 H Creatinine 3.47 H Iron Saturation 17.3 L Cancelled Ferritin 797.8 H Cancelled Albumin 3.1 L 10/20/23 04:43 BUN 88 H Creatinine 4.07 H D Iron Saturation Ferritin Albumin 3.1 L Radiology Impressions Impressions - last 24 hours: Impressions Chest X-Ray 10/19/23 13:29 IMPRESSION: Findings suggesting failure. No large pleural effusion. Impression dictated by: Wilberto Jacobo M.D.10/19/2023 1:59 PM Dictation Location: [place] [address] 10/19/23 13:29 IMPRESSION: No acute findings. CT Cervical Spine withoutcontrast TECHNIQUE: Axial imaging with 2-D and 3-D reconstruction. The CT exam was performed using one or more the following dose reduction techniques: Automated exposure control, adjustment of the MA and/or Kv according to patient size, or use of the iterative reconstruction technique. COMPARISON: None HISTORY: As above POST SURGERY CHANGES: None BONY ALIGNMENT: Adequate BONY SPINAL CANAL: Patent central bony canal FRACTURE: None BONY LESIONS: None SOFT TISSUES: Unremarkable DEGENERATIVE CHANGES: Extensive LUNG APICES: Unremarkable ADDITIONAL FINDINGS: 2.4 cm LEFT thyroid nodule. RIGHT carotid stent. Atherosclerosis of the carotid bifurcations. IMPRESSION: No acute process CT Abdomen and Pelvis withoutcontrast TECHNIQUE: Axial imaging with 2-D reconstruction. . The CT exam was performed using one or more the following dose reduction techniques: Automated exposure control, adjustment of the MA and/or Kv according to patient size, or use of theiterative reconstruction technique. COMPARISON: None History: As above LIMITATIONS: None LOWER THORAX basilar groundglass parenchymal densities. Additional basilar consolidation. No pleural effusion. LIVER: Hepatic steatosis GALLBLADDER: Cholecystectomy clips identified. BILE DUCTS: No dilatation SPLEEN: Unremarkable PANCREAS: Unremarkable ADRENAL GLANDS: Unremarkable KIDNEYS:Unremarkable AORTA: No abdominal aortic aneurysm identified. RETROPERITONEUM: No significant retroperitoneal abnormalities identified. MESENTERY:Unremarkable SMALL BOWEL: The small bowel loops are nondistended. APPENDIX: The appendix is normal. COLON: Unremarkable URINARY BLADDER: Urinary bladder is unremarkable. REPRODUCTIVE SYSTEM: Reproductive structures are unremarkable. PNEUMOPERITONEUM: None PERITONEAL FLUID:None BONY STRUCTURES: Extensive lumbar degeneration ABDOMINAL WALL: Unremarkable IMPRESSION: No acute abdominal or pelvic findings. Groundglass densities and consolidation of the lung bases. Consider failure. Impression dictated by: Wilberto Jacobo M.D.10/19/2023 2:38 PM Dictation Location: [place] [address] Any impression(s) listed above is documentation that was entered by the reading physician into a diagnostic report(s) for Shahid Sanchez. I have reviewed the report(s) and am incorporating any findings in the treatment plan of this patient where applicable. A&P - Nephrology Assessment/Plan (1) Acute kidney injury superimposed on CKD: Assessment/Problem Details: He has MAYLIN on CKD likely due to the cardiorenal syndrome. He has no evidence ofobstructive uropathy on CAT scan. (2) Hyponatremia: Assessment/Problem Details: He has a hypervolemic hyponatremia. (3) Acute on chronic anemia: Assessment/Problem Details: Patient has acute on chronic anemia possibly due to occult GI bleed. He was transfused 1 unit of PRBC. (4) Acute on chronic systolic (congestive) heart failure: Assessment/Problem Details: Patient appears to have acute on chronic congestive heart failure likely due to thus symptomatic anemia (5) Severe aortic stenosis: Assessment/Problem Details: He has a severe aortic stenosis. Cardiology recommended outpatient TAVR. Plan * No need for emergent hemodialysis now. Will continue to assess its needs on regular basis. * Stop IV fluid. * Will start the Lasix drip 20 mg/h. * Continue to hold home dose of the valsartan and spironolactone. * Monitor H&H and transfuse as needed to keep the hemoglobin greater than 8 g/dL. * Check renal function daily and monitor input output * Continue to hold home dose of the metformin. Continue DM management as per the primary hospitalist team. The goal of blood sugar is between 100 to 150 mg/dL. * Check renal function daily and monitor for output * Thanks for consult. Will continue follow with you. Please feel free to call us with any question. Documented By: Valerio Saeed MD 10/20/23 6809 Signed By: <Electronically signed by Valerio Saeed MD> 10/20/23 9440 [facility] Work Phone: 1(352) 325-632107-23-2024 History and physical note Author Mary Colin [facility] October 19, 2023 6:06pm Note Date/Time October 19, 2023 4:11 pm [facility] [address] [place] [address] Hospitalist H&P Signed Patient: Shahid Sanchez MR#: [id number] : 1940 Acct:[id number] Age/Sex: 83 / M Adm Date: 4 Loc: Room: [address] [place] [address] Type: ADM IN Attending Dr: Mary Colin MD Copies to: Al Raymundo Jr, DO Mary Colin MD~ HPI DATE OF EXAMINATION: 10/19/23 CHIEF COMPLAINT: Fall HISTORY OF PRESENT ILLNESS: Mr. Sanchez is an 82yo M with PMH of HTN, HLD, A-fib, sick sinus syndrome status post pacemaker 02/2023, hypothyroidism, RA on methotrexate who presented to the emergency department after a fall at home. Patient states he tripped and fell. he also has been SOB. He was initiated on nasal cannula O2 on prior hospitalization. Patient was discharged recently from our facility after had complicated hospital course with new findings. He required IV diuresis on prior admission, He was started on IV Lasix and had spironolactone added per cardiology. Echocardiogram revealed EF of 35-40%. Patient was noted to have severe valvular aortic stenosis. Patient's home Entresto was discontinued. Medication regimen was adjusted per cardiology. Patient underwent SEBASTIÁN as well as cardiac cath in preparation for need for likely TAVR. SEBASTIÁN did reveal left atrial appendage thrombus. Cardiac catheter revealed single-vessel coronary disease with significant collaterals. No intervention was performed on this coronary vessel. Patient is planned for outpatient aortic valve replacement through [facility]. He was medically optimized and discharged. Patient was maintained on Eliquis. He was requiring 3 L nasal cannula oxygen at rest and recommended 6 L nasal cannula on exertion. Patient denies any evidence of rectal bleed or black stools. He is not the best historian. Son and daughter in law at bedside. Patient lives alone. Patient supposed to get TAVR next month in October. In the ER, BP stable, HR stable. Hb noted to be 7.4 down from 10.5 at the time of discharge 09/15/2023. Rectal exam was done in the ER which showedlight brown stool but he was positive for occult blood, no black or tarry stool noted. Patient was ordered a unit of blood in the ER. Decision was made to admit him for further evaluation and management. Review of Systems Review of Systems Review of systems: 10 systems are reviewed and are negative except as mentioned elsewhere in the documentation [facility] Medical History Skin cancer head, removed yearly Arthritis Hearing impaired hearing aids, doesnt always wear Arrhythmia Hypertension Hypercholesteremia CERVANTES (dyspnea on exertion) Chronic UTI Rheumatoid arthritis Hypothyroidism Diabetes mellitus, type 2 BPH (benign prostatic hyperplasia) Former smoker GUNNER (obstructive sleep apnea) does not use cpap History of colon cancer CHF (congestive heart failure) A-fib Surgical History History of phacoemulsification of cataract of both eyes with intraocular lens implantation History of partial surgical removal of colon History of cholecystectomy History of total bilateral knee replacement History of elbow surgery bilateral History of repair of rotator cuff bilateral History of carotid angioplasty Family History Father Diabetes Sister Cancer Sister Cancer Brother Heart failure Father Diabetes Mother Cancer Legacy FamHx Problem: Diagnosed with Cancer Malignant neoplasm of breast Sister Cancer Legacy FamHx Problem: Diagnosed with Cancer Sister Cancer Legacy FamHx Problem: Diagnosed with Cancer Social History Smoking Status: Former smoker Tobacco Type: cigarettes Substance Use Type: None Meds Medications and Allergies Allergies No Known Allergies Allergy (Verified 10/19/23 13:01) Home Medications apixaban 5 mg tablet (Eliquis) 5 mg PO BID 03/10/23 [History Confirmed 10/19/23] cholecalciferol (vitamin D3) 25 mcg (1,000 unit) chewable tablet (Vitamin D3) 25mcg PO DAILY 03/10/23 [History Confirmed 10/19/23] dutasteride 0.5 mg capsule 0.5 mg PO QPM 03/10/23 [History Confirmed 10/19/23] folic acid 20 mg capsule 20 mg PO DAILY 03/10/23 [History Confirmed 10/19/23] levothyroxine 50 mcg tablet 50 mcg PO DAILY 03/10/23 [History Confirmed 10/19/23] metformin 850 mg tablet 850 mg PO DAILY 03/10/23 [History Confirmed 10/19/23] methenamine hippurate 1 gram tablet (Hiprex) 1 g PO BID 03/10/23 [History Confirmed 10/19/23] montelukast 10 mg tablet (Singulair) 10 mg PO DAILY 03/10/23 [History Confirmed 10/19/23] rosuvastatin 10 mg tablet (Crestor) 10 mg PO 4XW 03/10/23 [History Confirmed 10/19/23] tamsulosin 0.4 mg capsule 0.4 mg PO HS 03/10/23 [History Confirmed 10/19/23] furosemide 40 mg tablet 80 mg PO BID 09/09/23 [History Confirmed 10/19/23] metoprolol succinate 50 mg tablet,extended release 24 hr 50 mg PO DAILY 30 days #30 tabs 09/15/23 [Rx Confirmed 10/19/23] spironolactone 25 mg tablet 25 mg PO DAILY 30 days #30 tabs 09/15/23 [Rx Confirmed 10/19/23] valsartan 40 mg tablet 40 mg PO DAILY 30 days #30 tabs 09/15/23 [Rx Confirmed 10/19/23] hydrocodone 5 mg-acetaminophen 325 mg tablet 1 tab PO Q4HR PRN pain 10/19/23 [History Confirmed 10/19/23] vericiguat 10 mg tablet (Verquvo) 10 mg PO DAILY 10/19/23 [History Confirmed 10/19/23] Exam Physical Exam Vital Signs: Temp Pulse Resp BP Pulse Ox O2 Del Method O2 Flow Rate 98.8 F 78 20 103/50 L 94 L Nasal Cannula 3.5 10/19/23 13:04 10/19/23 14:46 10/19/23 14:46 10/19/23 14:46 10/19/23 14:46 10/19/23 14:46 10/19/23 14:46 Narrative: Const General: cooperative, pale appearing, ill appearing HEENT Normal oropharyngeal mucosa without any ulcers or exudates Eyes: Conjunctiva pale Pulmonary Auscultation: clear to auscultation , no crackles, no wheezes Cardiovascular Rate: normal rate Rhythm: regular rhythm Heart Sounds: S1 normal, S2 normal and no murmurs GI Inspection: non-distended Palpation: soft, not firm and nontender. No rigidity or rebound. Deferred Neuro General: alert, awake and oriented x3. No obvious new focal deficit Musculoskeletal: normal range of motion Extrem General: no cyanosis, ++ pedal edema Psych Appearance: appropriate affect. Grossly normal. Ill appearing Results - Hospitalist H&P Lab Results Labs: Laboratory Last Values Corrected WBC 12.3 X10E3/uL (4.1-10.5) H 10/19/23 14:10 Uncorrected WBC Count 12.3 x10E3/uL (4.1-10.5) H 10/19/23 14:10 RBC 2.31 X10E6/uL (3.90-5.60) L 10/19/23 14:10 Hgb 7.4 g/dL (13.0-17.0) L 10/19/23 14:10 Hct 21.3 % (38.8-50.0) L 10/19/23 14:10 MCV 92.2 fl (83.5-101) 10/19/23 14:10 MCH 32.1 pg (27.5-35.2) 10/19/23 14:10 MCHC 34.8 g/dL (32.5-35.6) 10/19/23 14:10 RDW 16.4 % (12.0-14.8) H 10/19/23 14:10 Plt Count 210 x10E3/uL (150-450) 10/19/23 14:10 MPV 7.6 fl (6.6-10.1) 10/19/23 14:10 Neut % (Auto) 93.9 % (.) 10/19/23 14:10 Lymph % (Auto) 2.5 % (.) 10/19/23 14:10 [place] % (Auto) 3.4 % (.) 10/19/23 14:10 Eos % (Auto) 0.1 % (.) 10/19/23 14:10 Baso % (Auto) 0.1 % (.) 10/19/23 14:10 Nucleat RBC Rel Count 0.1 /100 WBC (0-0.5) 10/19/23 14:10 Neut # (Auto) 11.6 x10E3/uL (1.8-7.7) H 10/19/23 14:10 Lymph # (Auto) 0.3 x10E3/uL (1.00-4.8) L 10/19/23 14:10 [place] # (Auto) 0.4 x10E3/uL (0.0-0.8) 10/19/23 14:10 Eos # (Auto) 0.0 x10E3/uL (0.0-0.45) 10/19/23 14:10 Baso # (Auto) 0.0 x10E3/uL (0.0-0.2) 10/19/23 14:10 Monocyte Dist Width 26.69 % (0.00-20.00) H 10/19/23 14:10 Platelet Estimate Normal (Normal) 10/19/23 14:10 Plt Morphology Comment Normal (Normal) 10/19/23 14:10 RBC Morphology N/A 10/19/23 14:10 Anisocytosis Slight 10/19/23 14:10 PT 22.8 Seconds (9.0-12.9) H 10/19/23 14:10 INR 2.0 10/19/23 14:10 APTT 39.2 Seconds (25.1-36.5) H 10/19/23 14:10 PHA Creatinine Clear 20.08 10/19/23 14:10 Sodium 127 mmol/L (136-145) L 10/19/23 14:10 Potassium 5.0 mmol/L (3.5-5.1) 10/19/23 14:10 Chloride 90 mmol/L (98-107) L 10/19/23 14:10 Carbon Dioxide 23.4 mmol/L (21.0-31.0) 10/19/23 14:10 Anion Gap 18.6 mEq/L (6.0-15.0) H 10/19/23 14:10 BUN 78 mg/dL (7-25) H 10/19/23 14:10 Creatinine 3.47 mg/dL (0.70-1.30) H 10/19/23 14:10 Est GFR (CKD-EPI) 16.885 mL/Min 10/19/23 14:10 Glucose 202 mg/dL (70-100) H 10/19/23 14:10 Calcium 8.7 mg/dL (8.6-10.3) 10/19/23 14:10 Magnesium 1.8 mg/dL (1.9-2.7) L 10/19/23 14:10 Total Bilirubin 1.3 mg/dl (0.3-1.0) H 10/19/23 14:10 AST 40 U/L (13-39) H 10/19/23 14:10 ALT 39 U/L (7-52) 10/19/23 14:10 Alkaline Phosphatase 68 U/L (34-104) 10/19/23 14:10 Troponin I High Sens 28.7 pg/mL (0.0-20.0) H 10/19/23 14:10 B-Natriuretic Peptide 315.0 pg/mL (5-100) H 10/19/23 14:10 Total Protein 6.6 gm/dL (6.4-8.9) 10/19/23 14:10 Albumin 3.1 gm/dL (3.5-5.7) L 10/19/23 14:10 Globulin 3.5 gm/dL 10/19/23 14:10 Albumin/Globulin Ratio 0.9 10/19/23 14:10 Blood Type AB Negative 10/19/23 15:26 Crossmatch (AHG) See Detail 10/19/23 15:26 Assessment & Plan Assessment/Plan (1) Acute hyponatremia: (2) Acute anemia: (3) Acute kidney injury superimposed on CKD: (4) Chronic systolic dysfunction of left ventricle: (5) Severe aortic stenosis: (6) A-fib: Plan Acute blood loss anemia Symptomatic anemia -BP borderline stable on admission. Fell at home prior coming here. -Obtain 2 large bore IV access -Transfuse as needed to keep Hb above 7 or symptomatic anemia or ongoing bleeding -Given Protonix 80 mg IV bolus followed by Protonix BID -Antiemetics IV/IM as directed -Start IV gentle hydration as directed -Hold antiplatelets and anticoagulation -Avoid NSAIDs -At this point, no evidence of overt GI bleed, will consult GI for input. -Monitor while here for any overt GI bleed. Monitor H/H. -Monitor on telemetry MAYLIN on CKD Acute hyponatremia -Cr 3.47 today, BUN 78 -Gentle hydration -Hold diuretics and HAYLEE -Consult nephrology Chronic systolic heart failure L Atrial Thrombus on AC Severe pulmonary hypertension Sick sinus syndrome status post pacemaker Atrial fibrillation Single-vessel CAD Severe aortic stenosis -Monitor on tele -Hold AC for now -Consult cardiology for input regarding AC. Perioperative risk in case needs endoscopies. Home medications resumed as appropriate Diet: clear liquids DVT ppx: SCDs GI ppx: PPI Code status: Full Status: inpatient Discussed with patient and son and daughter in law at bedside. All questions answered. In agreement with the above plan Mary Blackburn MD Internal Medicine Hospitalist Attending Physician IP vs OBS Justification Based on differential dx, clinical care plan, and risk of adverse events, if untreated, in my clinical judgement this patient requires an acute care setting as: INPATIENT because of an expectation of an over 2 midnight stay. Estimated length of stay (# of days): 4 Documented By: Mary Colin MD 10/19/23 16 06 Signed By: <Electronically signed by Mary Colin MD> 10/19/23 1806 [facility] Work Phone: [phone] 929-451607-23-2024 History and physical note Author Mary Colin [facility] October 19, 2023 6:06pm Note Date/Time October 19, 2023 4:11 pm [facility] [address] [place] [address] Hospitalist H&P Signed Patient: Shahid Sanchez MR#: [id number] : 1940 Acct:[id number] Age/Sex: 83 / M Adm Date: 4 Loc: Room: [address] [place] [address] Type: ADM IN Attending Dr: Mary Colin MD Copies to: Al Raymundo Jr, DO Mary Colin MD~ HPI DATE OF EXAMINATION: 10/19/23 CHIEF COMPLAINT: Fall HISTORY OF PRESENT ILLNESS: Mr. Sanchez is an 82yo M with PMH of HTN, HLD, A-fib, sick sinus syndrome status post pacemaker 02/2023, hypothyroidism, RA on methotrexate who presented to the emergency department after a fall at home. Patient states he tripped and fell. he also has been SOB. He was initiated on nasal cannula O2 on prior hospitalization. Patient was discharged recently from our facility after had complicated hospital course with new findings. He required IV diuresis on prior admission, He was started on IV Lasix and had spironolactone added per cardiology. Echocardiogram revealed EF of 35-40%. Patient was noted to have severe valvular aortic stenosis. Patient's home Entresto was discontinued. Medication regimen was adjusted per cardiology. Patient underwent SEBASTIÁN as well as cardiac cath in preparation for need for likely TAVR. SEBASTIÁN did reveal left atrial appendage thrombus. Cardiac catheter revealed single-vessel coronary disease with significant collaterals. No intervention was performed on this coronary vessel. Patient is planned for outpatient aortic valve replacement through [facility]. He was medically optimized and discharged. Patient was maintained on Eliquis. He was requiring 3 L nasal cannula oxygen at rest and recommended 6 L nasal cannula on exertion. Patient denies any evidence of rectal bleed or black stools. He is not the best historian. Son and daughter in law at bedside. Patient lives alone. Patient supposed to get TAVR next month in October. In the ER, BP stable, HR stable. Hb noted to be 7.4 down from 10.5 at the time of discharge 09/15/2023. Rectal exam was done in the ER which showedlight brown stool but he was positive for occult blood, no black or tarry stool noted. Patient was ordered a unit of blood in the ER. Decision was made to admit him for further evaluation and management. Review of Systems Review of Systems Review of systems: 10 systems are reviewed and are negative except as mentioned elsewhere in the documentation [facility] Medical History Skin cancer head, removed yearly Arthritis Hearing impaired hearing aids, doesnt always wear Arrhythmia Hypertension Hypercholesteremia CERVANTES (dyspnea on exertion) Chronic UTI Rheumatoid arthritis Hypothyroidism Diabetes mellitus, type 2 BPH (benign prostatic hyperplasia) Former smoker GUNNER (obstructive sleep apnea) does not use cpap History of colon cancer CHF (congestive heart failure) A-fib Surgical History History of phacoemulsification of cataract of both eyes with intraocular lens implantation History of partial surgical removal of colon History of cholecystectomy History of total bilateral knee replacement History of elbow surgery bilateral History of repair of rotator cuff bilateral History of carotid angioplasty Family History Father Diabetes Sister Cancer Sister Cancer Brother Heart failure Father Diabetes Mother Cancer Legacy FamHx Problem: Diagnosed with Cancer Malignant neoplasm of breast Sister Cancer Legacy FamHx Problem: Diagnosed with Cancer Sister Cancer Legacy FamHx Problem: Diagnosed with Cancer Social History Smoking Status: Former smoker Tobacco Type: cigarettes Substance Use Type: None Meds Medications and Allergies Allergies No Known Allergies Allergy (Verified 10/19/23 13:01) Home Medications apixaban 5 mg tablet (Eliquis) 5 mg PO BID 03/10/23 [History Confirmed 10/19/23] cholecalciferol (vitamin D3) 25 mcg (1,000 unit) chewable tablet (Vitamin D3) 25mcg PO DAILY 03/10/23 [History Confirmed 10/19/23] dutasteride 0.5 mg capsule 0.5 mg PO QPM 03/10/23 [History Confirmed 10/19/23] folic acid 20 mg capsule 20 mg PO DAILY 03/10/23 [History Confirmed 10/19/23] levothyroxine 50 mcg tablet 50 mcg PO DAILY 03/10/23 [History Confirmed 10/19/23] metformin 850 mg tablet 850 mg PO DAILY 03/10/23 [History Confirmed 10/19/23] methenamine hippurate 1 gram tablet (Hiprex) 1 g PO BID 03/10/23 [History Confirmed 10/19/23] montelukast 10 mg tablet (Singulair) 10 mg PO DAILY 03/10/23 [History Confirmed 10/19/23] rosuvastatin 10 mg tablet (Crestor) 10 mg PO 4XW 03/10/23 [History Confirmed 10/19/23] tamsulosin 0.4 mg capsule 0.4 mg PO HS 03/10/23 [History Confirmed 10/19/23] furosemide 40 mg tablet 80 mg PO BID 09/09/23 [History Confirmed 10/19/23] metoprolol succinate 50 mg tablet,extended release 24 hr 50 mg PO DAILY 30 days #30 tabs 09/15/23 [Rx Confirmed 10/19/23] spironolactone 25 mg tablet 25 mg PO DAILY 30 days #30 tabs 09/15/23 [Rx Confirmed 10/19/23] valsartan 40 mg tablet 40 mg PO DAILY 30 days #30 tabs 09/15/23 [Rx Confirmed 10/19/23] hydrocodone 5 mg-acetaminophen 325 mg tablet 1 tab PO Q4HR PRN pain 10/19/23 [History Confirmed 10/19/23] vericiguat 10 mg tablet (Verquvo) 10 mg PO DAILY 10/19/23 [History Confirmed 10/19/23] Exam Physical Exam Vital Signs: Temp Pulse Resp BP Pulse Ox O2 Del Method O2 Flow Rate 98.8 F 78 20 103/50 L 94 L Nasal Cannula 3.5 10/19/23 13:04 10/19/23 14:46 10/19/23 14:46 10/19/23 14:46 10/19/23 14:46 10/19/23 14:46 10/19/23 14:46 Narrative: Const General: cooperative, pale appearing, ill appearing HEENT Normal oropharyngeal mucosa without any ulcers or exudates Eyes: Conjunctiva pale Pulmonary Auscultation: clear to auscultation , no crackles, no wheezes Cardiovascular Rate: normal rate Rhythm: regular rhythm Heart Sounds: S1 normal, S2 normal and no murmurs GI Inspection: non-distended Palpation: soft, not firm and nontender. No rigidity or rebound. Deferred Neuro General: alert, awake and oriented x3. No obvious new focal deficit Musculoskeletal: normal range of motion Extrem General: no cyanosis, ++ pedal edema Psych Appearance: appropriate affect. Grossly normal. Ill appearing Results - Hospitalist H&P Lab Results Labs: Laboratory Last Values Corrected WBC 12.3 X10E3/uL (4.1-10.5) H 10/19/23 14:10 Uncorrected WBC Count 12.3 x10E3/uL (4.1-10.5) H 10/19/23 14:10 RBC 2.31 X10E6/uL (3.90-5.60) L 10/19/23 14:10 Hgb 7.4 g/dL (13.0-17.0) L 10/19/23 14:10 Hct 21.3 % (38.8-50.0) L 10/19/23 14:10 MCV 92.2 fl (83.5-101) 10/19/23 14:10 MCH 32.1 pg (27.5-35.2) 10/19/23 14:10 MCHC 34.8 g/dL (32.5-35.6) 10/19/23 14:10 RDW 16.4 % (12.0-14.8) H 10/19/23 14:10 Plt Count 210 x10E3/uL (150-450) 10/19/23 14:10 MPV 7.6 fl (6.6-10.1) 10/19/23 14:10 Neut % (Auto) 93.9 % (.) 10/19/23 14:10 Lymph % (Auto) 2.5 % (.) 10/19/23 14:10 [place] % (Auto) 3.4 % (.) 10/19/23 14:10 Eos % (Auto) 0.1 % (.) 10/19/23 14:10 Baso % (Auto) 0.1 % (.) 10/19/23 14:10 Nucleat RBC Rel Count 0.1 /100 WBC (0-0.5) 10/19/23 14:10 Neut # (Auto) 11.6 x10E3/uL (1.8-7.7) H 10/19/23 14:10 Lymph # (Auto) 0.3 x10E3/uL (1.00-4.8) L 10/19/23 14:10 [place] # (Auto) 0.4 x10E3/uL (0.0-0.8) 10/19/23 14:10 Eos # (Auto) 0.0 x10E3/uL (0.0-0.45) 10/19/23 14:10 Baso # (Auto) 0.0 x10E3/uL (0.0-0.2) 10/19/23 14:10 Monocyte Dist Width 26.69 % (0.00-20.00) H 10/19/23 14:10 Platelet Estimate Normal (Normal) 10/19/23 14:10 Plt Morphology Comment Normal (Normal) 10/19/23 14:10 RBC Morphology N/A 10/19/23 14:10 Anisocytosis Slight 10/19/23 14:10 PT 22.8 Seconds (9.0-12.9) H 10/19/23 14:10 INR 2.0 10/19/23 14:10 APTT 39.2 Seconds (25.1-36.5) H 10/19/23 14:10 PHA Creatinine Clear 20.08 10/19/23 14:10 Sodium 127 mmol/L (136-145) L 10/19/23 14:10 Potassium 5.0 mmol/L (3.5-5.1) 10/19/23 14:10 Chloride 90 mmol/L (98-107) L 10/19/23 14:10 Carbon Dioxide 23.4 mmol/L (21.0-31.0) 10/19/23 14:10 Anion Gap 18.6 mEq/L (6.0-15.0) H 10/19/23 14:10 BUN 78 mg/dL (7-25) H 10/19/23 14:10 Creatinine 3.47 mg/dL (0.70-1.30) H 10/19/23 14:10 Est GFR (CKD-EPI) 16.885 mL/Min 10/19/23 14:10 Glucose 202 mg/dL (70-100) H 10/19/23 14:10 Calcium 8.7 mg/dL (8.6-10.3) 10/19/23 14:10 Magnesium 1.8 mg/dL (1.9-2.7) L 10/19/23 14:10 Total Bilirubin 1.3 mg/dl (0.3-1.0) H 10/19/23 14:10 AST 40 U/L (13-39) H 10/19/23 14:10 ALT 39 U/L (7-52) 10/19/23 14:10 Alkaline Phosphatase 68 U/L (34-104) 10/19/23 14:10 Troponin I High Sens 28.7 pg/mL (0.0-20.0) H 10/19/23 14:10 B-Natriuretic Peptide 315.0 pg/mL (5-100) H 10/19/23 14:10 Total Protein 6.6 gm/dL (6.4-8.9) 10/19/23 14:10 Albumin 3.1 gm/dL (3.5-5.7) L 10/19/23 14:10 Globulin 3.5 gm/dL 10/19/23 14:10 Albumin/Globulin Ratio 0.9 10/19/23 14:10 Blood Type AB Negative 10/19/23 15:26 Crossmatch (AHG) See Detail 10/19/23 15:26 Assessment & Plan Assessment/Plan (1) Acute hyponatremia: (2) Acute anemia: (3) Acute kidney injury superimposed on CKD: (4) Chronic systolic dysfunction of left ventricle: (5) Severe aortic stenosis: (6) A-fib: Plan Acute blood loss anemia Symptomatic anemia -BP borderline stable on admission. Fell at home prior coming here. -Obtain 2 large bore IV access -Transfuse as needed to keep Hb above 7 or symptomatic anemia or ongoing bleeding -Given Protonix 80 mg IV bolus followed by Protonix BID -Antiemetics IV/IM as directed -Start IV gentle hydration as directed -Hold antiplatelets and anticoagulation -Avoid NSAIDs -At this point, no evidence of overt GI bleed, will consult GI for input. -Monitor while here for any overt GI bleed. Monitor H/H. -Monitor on telemetry MAYLIN on CKD Acute hyponatremia -Cr 3.47 today, BUN 78 -Gentle hydration -Hold diuretics and HAYLEE -Consult nephrology Chronic systolic heart failure L Atrial Thrombus on AC Severe pulmonary hypertension Sick sinus syndrome status post pacemaker Atrial fibrillation Single-vessel CAD Severe aortic stenosis -Monitor on tele -Hold AC for now -Consult cardiology for input regarding AC. Perioperative risk in case needs endoscopies. Home medications resumed as appropriate Diet: clear liquids DVT ppx: SCDs GI ppx: PPI Code status: Full Status: inpatient Discussed with patient and son and daughter in law at bedside. All questions answered. In agreement with the above plan Mary Blackburn MD Internal Medicine Hospitalist Attending Physician IP vs OBS Justification Based on differential dx, clinical care plan, and risk of adverse events, if untreated, in my clinical judgement this patient requires an acute care setting as: INPATIENT because of an expectation of an over 2 midnight stay. Estimated length of stay (# of days): 4 Documented By: Mary Colin MD 10/19/23 16 06 Signed By: <Electronically signed by Mary Colin MD> 10/19/23 1806 [facility] Work Phone: [phone] 525-955207-17-2024 History of Present illness Narrative* Joby Pinedo MD - 10/13/2023 3:30 PM EDT Subjective Shahid Sanchez is a 83 y.o. male Chief Complaint Hospital Follow-up HPI Patient is here for follow-up to management for chronic atrial fibrillation, recent presentation with heart failure and the finding of progression of his aortic valve disease. Following that the patient was referred for cardiac catheterization transesophageal echocardiogram which demonstrated LV systolic dysfunction, occlusion of his right coronary artery and severe aortic stenosis. He subsequently underwent TAVR. He continues to have significant lower extremity edema. He appears to be in classII heart failure. The patient Aldactone apparently was discontinued at 1 point of time due to high potassium. His K is around 5. Today he has significant volume overload and appears to be in heart failure. Assessment 1. 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 Currently decompensated with evidence of volume overload 2. Severe aortic stenosis status post recent TAVR 3. Single-vessel coronary artery disease with occlusion of the RCA 4. Chronic atrial fibrillation with slow suggestive of AV node dysfunction. Status post recent permanent pacemaker implantation with improvement of his energy level and functional status 5. Long-term anticoagulation due to chronic atrial fibrillation 6. Hypertension 7. Diabetes mellitus 8. Rheumatoid arthritis 9. History of colon cancer status postresection with no recurrence 10. Pulmonary hypertension Plan 1. I advised the patient to start Zaroxolyn 2.5 mg daily. He will have a BMP in a few weeks 2. Repeat post TAVR echocardiogram 3. I reviewed with the patient results of his diagnostic testing 4 I advised the patient if he had any lightheadedness, dizziness or syncope to go back immediately to the hospital 5. I will see him back in 3 months Review of Systems All other systems reviewed and are negative. Vitals: 10/13/23 1601 BP: 110/64 BP Location: Left arm Patient Position: Sitting Pulse: 70 Weight: 98.9 kg (218 lb) Height: 1.803 m (5' 11 ) Objective Physical Exam Constitutional: Appearance: Normal appearance. HENT: Nose: Nose normal. Neck: Vascular: No carotid bruit. Cardiovascular: Rate and Rhythm: Normal rate. Pulses: Normal pulses. Heart sounds: Murmur heard. Systolic murmur is present with a grade of 3/6. Pulmonary: Effort: Pulmonary effort is normal. Abdominal: General: Bowel sounds are normal. Palpations: Abdomen is soft. Musculoskeletal: General: Normal range of motion. Cervical back: Normal range of motion. Right lower le+ Edema present. Left lower le+ Edema present. Skin: General: Skin is warm and dry. Neurological: General: No focal deficit present. Mental Status: He is alert. Psychiatric: Mood and Affect: Mood normal. Behavior: Behavior normal. Thought Content: Thought content normal. Judgment: Judgment normal. Allergies Patient has no known allergies. Current Medications Current Outpatient Medications: Bydureon BCise 2 mg/0.85 mL auto-injector, inject 2 milligrams subcutaneously every week in ABDOMEN,THIGH,OR... (REFER TO PRESCRIPTION NOTES)., Disp: , Rfl: cholecalciferol, vitamin D3, 25 mcg (1,000 unit) tablet,chewable, Chew 1 tablet (1,000 Units) earlyin the morning.., Disp: , Rfl: dutasteride (Avodart) 0.5 mg capsule, Take 1 capsule (0.5 mg) by mouth once daily., Disp: , Rfl: Eliquis 5 mg tablet, Take 1 tablet (5 mg) by mouth 2 times a day., Disp: , Rfl: finerenone (Kerendia) 20 mg tablet, Take 1 tablet (20 mg) by mouth once daily., Disp: , Rfl: folic acid (Folvite) 800 mcg tablet, Take by mouth once daily., Disp: , Rfl: furosemide (Lasix) 40 mg tablet, Take 1 tablet (40 mg) by mouth once daily., Disp: 30 tablet, Rfl: 11 inFLIXimab (Remicade) 100 mg injection, Infuse 600 mg into a venous catheter once daily. Every 8 weeks, Disp: , Rfl: levothyroxine (Synthroid, Levoxyl) 50 mcg tablet, Take 1 tablet (50 mcg) by mouth once daily. 1 tabwed-wed and Wednesday take 2 tabs, Disp: , Rfl: metFORMIN (Glucophage) 850 mg tablet, Take 50 mg by mouth once daily. take with evening meal, Disp:, Rfl: methotrexate (Trexall) 2.5 mg tablet, take 6 tablets by mouth every week, Disp: , Rfl: metoprolol succinate XL (Toprol-XL) 50 mg 24 hr tablet, Take 1 tablet (50 mg) by mouth once daily.,Disp: , Rfl: montelukast (Singulair) 10 mg tablet, Take 1 tablet (10 mg) by mouth once daily., Disp: , Rfl: rosuvastatin (Crestor) 10 mg tablet, Take 1 tablet (10 mg) by mouth once daily. Just 4 days a week,Disp: , Rfl: spironolactone (Aldactone) 25 mg tablet, Take 1 tablet (25 mg) by mouth 1 time., Disp: , Rfl: tamsulosin (Flomax) 0.4 mg 24 hr capsule, Take 1 capsule (0.4 mg) by mouth once daily at bedtime., Disp: , Rfl: valsartan (Diovan) 40 mg tablet, Take 1 tablet (40 mg) by mouth once daily., Disp: , Rfl: metOLazone (Zaroxolyn) 2.5 mg tablet, Take 1 tablet (2.5 mg) by mouth once daily., Disp: 90 tablet,Rfl: 3 Current Facility-Administered Medications: sodium chloride 0.9% infusion, 300 mL/hr, intravenous, Once, Andra Molina APRN-GREASE MAN Assessment/Plan 1. Chronic systolic heart failure (Multi) 2. Persistent atrial fibrillation (Multi) Follow Up In Cardiology metOLazone (Zaroxolyn) 2.5 mg tablet 3. Nonrheumatic aortic valve stenosis metOLazone (Zaroxolyn) 2.5 mg tablet Transthoracic Echo Complete Follow Up In Cardiology 4. Pulmonary hypertension (Multi) Transthoracic Echo Complete 5. History of transcatheter aortic valve replacement (TAVR) 6. Primary hypertension 7. Hypercholesteremia 8. BMI 30.0-30.9,adult 9. Bradycardia 10. Dilated cardiomyopathy (Multi) Basic Metabolic Panel Basic Metabolic Panel 11. Edema, unspecified type Follow Up In Cardiology Basic Metabolic Panel Basic Metabolic Panel Scribe Attestation By signing my name below, vivian Duron Scribe attest that this documentation has been prepared under the direction and in the presence of MD Mino. Provider Attestation - Scribe documentation All medical record entries made by the Scribe were at my direction and personally dictated by me. Ihave reviewed the chart and agree that the record accurately reflects my personal performance of the history, physical exam, discussion and plan. documented in this [facility] Work Phone: [phone]) 701-222507-17-2024 Instructions* Patient Instructions* Vivian Mack LPN - 10/13/2023 3:30 PM EDT Please bring all medicines, vitamins, and herbal supplements with you when you come to the office. Prescriptions will not be filled unless you are compliant with your follow up appointments or have a follow up appointment scheduled as per instruction of your physician. Refills should be requested at the time of your visit. BMI was above normal measurement. Current weight: 98.9 kg (218 lb) Weight change since last visit (-) denotes wt loss -2 lbs Weight loss needed to achieve BMI 25: 39.1 Lbs Weight loss needed to achieve BMI 30: 3.4 Lbs Provided instructions on dietary changes. documented in this [facility] Work Phone: 1(368) 110-965206-19-2024 Progress note Author Joby Pinedo [facility] September 15, 2023 11:20am Note Date/Time September 15, 2023 11:1 8am [facility] [address] [place] [address] Cardiology Progress Note Signed Patient: Shahid Sanchez MR#: [id number] : 1940 Acct:[id number] Age/Sex: 82 / M Adm Date: 4 Loc: 3T Room: [address] [place] [address] Type: ADM IN Attending Dr: Misael Gonzales MD Copies to: ~ Date of Service: 09/15/2023 Subjective Principal diagnosis: Dyspnea on exertion Interval history: Patient without new complaint. Patient feels almost back to his baseline. Stillhave minimal edema. Result of his heart cath and SEBASTIÁN noted and reviewed with Exam Physical Exam Vital Signs: Temp Pulse Resp BP Pulse Ox O2 Del Method O2 Flow Rate 97.3 F L 68 18 148/67 H 98 Nasal Cannula 4 09/15/23 08:00 09/15/23 11:05 09/15/23 11:05 09/15/23 11:05 09/15/23 11:05 09/15/23 11:07 09/15/23 11:07 Resp Effort & Inspection: normal respiratory effort Auscultation: clear to auscultation bilaterally Cardio Palpation: normal PMI Rhythm: abnormal rhythm irregularly irregular Heart Sounds: S1 normal, S2 normal and murmur systolic III/ and at the left sternal border Skin General: dry skin Extrem General: full ROM and no clubbing, cyanosis or edema Objective Labs 09/14/23 06:17 09/15/23 05:43 Labs: Laboratory Results - last 24 hr 09/14/23 09/14/23 09/15/23 15:50 20:49 05:43 PHA Creatinine Clear 69.89 Sodium 138 Potassium 3.8 Chloride 103 Carbon Dioxide 30.4 Anion Gap 8.4 BUN 21 Creatinine 1.01 Est GFR (CKD-EPI) > 60.0 Glucose 142 H POC Glucose 205 233 Calcium 8.1 L 09/15/23 06:45 PHA Creatinine Clear Sodium Potassium Chloride Carbon Dioxide Anion Gap BUN Creatinine Est GFR (CKD-EPI) Glucose POC Glucose 130 Calcium A&P - Cardiology (1) Acute systolic (congestive) heart failure: Assessment/Problem Details: This is in the context of severe aortic stenosis, presently improved Code(s): I50.21 - Acute systolic (congestive) heart failure (2) Hypertension: Assessment/Problem Details: Not completely under control but improved since adjustments made yesterday Code(s): I10 - Essential (primary) hypertension Plan Assessment 1. Acute systolic heart failure due to LV systolic dysfunction and aortic valvedisease. SEBASTIÁN showed severe aortic stenosis with LV systolic dysfunction. Cardiac catheterization showed single-vessel disease with occlusion of the proximal RCA which is chronic with extensive network of collateral medical therapy was recommended 2. Echocardiogram suggestive of severe aortic stenosis 3. Sick sinus syndrome status post permanent pacemaker implantation 4. Chronic atrial fibrillation 5. Long-term anticoagulation 6. Pulmonary hypertension 7. History of colon cancer status postresection with no recurrence 8. History of hypertension Plan 1. Resume Eliquis 2. Switch to oral diuretics 3. I made arrangement for the patient to be evaluated at [facility] for TAVR Documented By: Joby Pinedo MD 09/15/23 1116 Signed By: <Electronically signed by MD Joby Pinedo> 09/15/23 1120 [facility] Work Phone: [phone] 158-559706-18-2024 Progress note Author Misael Gonzales [facility] September 14, 2023 9:21pm Note Date/Time September 14, 2023 5:27 pm [facility] [address] [place] [address] Hospitalist Progress Note Signed Patient: Shahid Sanchez MR#: [id number] : 1940 Acct:[id number] Age/Sex: 82 / M Adm Date: 4 Loc: Room: [address] [place] [address] Type: ADM IN Attending Dr: Misael Gonzales MD Copies to: ~ Date of Service: 09/14/2023 Subjective Subjective Narrative: Patient seen and assessed at bedside today after cardiac catheterization. He does continue to note improvement in his respiratory status overall. He denies any chest pain today. He believes his lower extremity swelling is improved as well. Exam Physical Exam Vital Signs: Temp Pulse Resp BP Pulse Ox O2 Del Method O2 Flow Rate 97.5 F L 70 16 118/64 82 L Nasal Cannula 3.5 09/14/23 12:26 09/14/23 15:39 09/14/23 15:39 09/14/23 15:39 09/14/23 15:39 09/14/23 16:00 09/14/23 16:00 Narrative: Constitutional: Elderly WM, resting in bed, mild dyspnea HEENT: Dry mucous membranes, neck supple, no JVD Cardiovascular: Distant heart sounds, irregular rhythm Respiratory: Clear to auscultation bilaterally, no wheezes, rales or rhonchi GI: Soft, NTND, NABS : Deferred Extremities: 1+ edema noted in the bilateral lower extremities distally Neuro: AAOx3, no focal deficits Skin: No rashes or lesions noted upon anterior inspection Psych: Calm, cooperative and conversant Objective Lab Results 09/14/23 06:17 09/14/23 06:17 Meds Allergies and Active Meds Allergies No Known Allergies Allergy (Verified 09/09/23 11:58) Active Meds: Active Medications Generic Name Dose Route Start Last Admin Trade Name Freq PRN Reason Stop Dose Admin Acetaminophen 1,000 mg 09/14/23 12:26 Acetaminophen 500 Mg Tablet PO 09/13/24 12:25 Q6H PRN Mild Pain Al Hydrox/Mg Hydrox/Simethicone 30 ml 09/14/23 12:26 Mag Hydrox/Al Hydrox/Simeth 30 Ml Udc PO 09/13/24 12:25 Q4H PRN Epigastric distress (Non-Card) Amlodipine Besylate 5 mg 09/12/23 09:00 09/14/23 08:59 Amlodipine 5 Mg Tablet PO 09/11/24 08:59 5 mg DAILY APPLE Administration Atorvastatin Calcium 20 mg 09/10/23 09:00 09/14/23 08:59 Atorvastatin 20 Mg Tablet PO 09/09/24 08:59 20 mg DAILY APPLE Administration Dextrose 0 gm 09/09/23 14:39 Dextrose 50% In Water 25 Gm/50 Ml Syringe IV-PUSH 09/08/24 14:38 PRN PRN Hypoglycemia Docusate Sodium 100 mg 09/14/23 12:26 Docusate 100 Mg Capsule PO 09/13/24 12:25 QHS PRN Constipation Dutasteride 0.5 mg 09/09/23 21:00 09/13/23 22:09 Dutasteride 0.5 Mg Capsule PO 09/08/24 20:59 0.5 mg QPM APPLE Administration Folic Acid 1 mg 09/10/23 09:00 09/14/23 08:59 Folic Acid 1 Mg Tablet PO 09/09/24 08:59 1 mg DAILY APPLE Administration Furosemide 60 mg 09/10/23 09:00 09/14/23 17:05 Furosemide 20 Mg/2 Ml Vial IV-PUSH 09/09/24 08:59 60 mg BID@0800,1600 APPLE Administration Glucose 0 gm 09/09/23 14:39 Dextrose 40% Gel 15 Gm Tube PO 09/08/24 14:38 PRN PRN Hypoglycemia Dextrose/Sodium Chloride 1,000 mls @ 20 mls/hr 09/13/23 10:00 09/14/23 09:09 5 % Dextrose-0.45 % Nacl IV 09/12/24 09:59 20 mls/hr .Q24H APPLE Administration Dextrose/Sodium Chloride 1,000 mls @ 100 mls/hr 09/14/23 11:00 09/14/23 12:45 5 % Dextrose-0.45 % Nacl IV 09/13/24 10:59 100 mls/hr .Q10H APPLE Administration Insulin Aspart 0 units 09/09/23 17:00 09/14/23 17:08 Insulin Aspart 300 Units/3 Ml Insuln.Pen SUBCUT 09/08/24 16:59 2 units TID.WM.HS APPLE Administration Protocol Levothyroxine Sodium 50 mcg 09/10/23 06:30 09/14/23 06:19 Levothyroxine 50 Mcg Tablet PO 09/09/24 06:29 50 mcg MoTuWeThFrSa@0630 APPLE Administration Levothyroxine Sodium 100 mcg 09/12/23 06:30 09/12/23 06:04 Levothyroxine 50 Mcg Tablet PO 09/11/24 06:29 100 mcg Adams@0630 APPLE Administration Metoprolol Succinate 50 mg 09/11/23 15:00 09/14/23 08:59 Metoprolol Succinate 50 Mg Tab.Er.24h PO 09/10/24 14:59 50 mg DAILY APPLE Administration Miscellaneous Information 1 each 09/14/23 12:26 Consult To Pharmacy MISCELLANE 09/13/24 12:25 .PHACONSULT PRN ZZ.Pharmacy Consult Protocol Montelukast Sodium 10 mg 09/10/23 09:00 09/14/23 08:59 Montelukast 10 Mg Tablet PO 09/09/24 08:59 10 mg DAILY APPLE Administration Morphine Sulfate 4 mg 09/14/23 12:26 Morphine Sulfate 4 Mg/Ml Cartridge IV-PUSH Q20M PRN Chest Pain Nitroglycerin 0.4 mg 09/14/23 12:26 Nitroglycerin 0.4 Mg Tab.Subl SUBLINGUAL 09/13/24 12:25 Q5M PRN Chest Pain Ondansetron HCl 4 mg 09/14/23 12:26 Ondansetron 4 Mg/2 Ml Vial IV-PUSH 09/13/24 12:25 Q6H PRN Nausea And Vomiting Potassium Chloride 40 meq 09/14/23 07:00 Potassium Chloride Er 20 Meq Tab.Er.Prt PO STAT PRN Hypokalemia Sodium Chloride 0 ml 09/09/23 11:56 09/14/23 03:08 Sodium Chloride 0.9 % 10 Ml Syringe IV-PUSH 09/08/24 11:55 10 ml PRN PRN Administration Flush Sodium Chloride 0 ml 09/10/23 14:19 09/11/23 15:57 Sodium Chloride 0.9 % 10 Ml Syringe IV-PUSH 09/09/24 14:18 10 ml PRN PRN Administration Flush Sodium Chloride 0 ml 09/13/23 13:07 Sodium Chloride 0.9 % 10 Ml Syringe IV-PUSH 09/12/24 13:06 PRN PRN Flush Spironolactone 25 mg 09/13/23 13:30 09/13/23 17:33 Spironolactone 25 Mg Tablet PO 09/12/24 13:29 25 mg DAILY APPLE Administration Tamsulosin HCl 0.4 mg 09/10/23 09:00 09/14/23 08:59 Tamsulosin 0.4 Mg Cap.Er.24h PO 09/09/24 08:59 0.4 mg DAILY APPLE Administration Triamcinolone Acetonide 1 applic 09/14/23 12:26 Triamcinolone 0.1% Cream 15 Gm Tube TOPICAL 09/13/24 12:25 QID PRN Irritation Vitamin D 25 mcg 09/10/23 09:00 09/14/23 08:59 Cholecalciferol 25 Mcg (1,000 Units) Tablet PO 09/09/24 08:59 25 mcg DAILY APPLE Administration A&P - Hospitalist Assessment/Plan (1) Acute exacerbation of CHF (congestive heart failure): (2) A-fib: (3) Rheumatoid arthritis: (4) Hypercholesteremia: (5) Hypertension: (6) Hypothyroidism: Plan ASSESSMENT AND PLAN: Acute systolic heart failure L Atrial Thrombus Severe pulmonary hypertension Sick sinus syndrome status post pacemaker Atrial fibrillation Single-vessel CAD Patient found to have coronary artery disease with severe CAD in the RCA. Patient had extensive collaterals. -Patient currently off of antiplatelet medication, given cardiac thrombus and CAD will restart on patient's Eliquis and discuss with cardiology in the a.m. -Continue monitoring on telemetry -IV Lasix 60 mg BID -Monitor intake and output, daily weights, low-salt diet -Stopped Entresto -Continue other medical management per cardiology: Metoprolol, amlodipine, spironolactone DM type [id number] insulin, hypoglycemia protocol, DM diet Hypothyroidism-TSH elevated, check free T4 Chronic medical conditions noted below, continue home regimens unless otherwise specified: Hypertension Hyperlipidemia Rheumatoid arthritis on methotrexate CODE STATUS: Full code DVT prophylaxis- Switched to Lovenox Documented By: Misael Gonzales MD 4 [id number] Signed By: <Electronically signed by Misael Gonzales MD> 09/14/23 9319 [facility] Work Phone: [phone] 136-702806-18-2024 Progress note Author Joby Pinedo [facility] September 14, 2023 11:10am Note Date/Time September 14, 2023 11:1 0am [facility] [address] [place] [address] Cardiology Progress Note Signed Patient: Shahid Sanchez MR#: [id number] : 1940 Acct:[id number] Age/Sex: 82 / M Adm Date: 4 Loc: Room: [address] [place] [address] Type: ADM IN Attending Dr: Misael Gonzales MD Copies to: ~ Date of Service: 09/14/2023 Subjective Principal diagnosis: Dyspnea on exertion Interval history: Patient without new complaint. Results of SEBASTIÁN reviewed with patient. Unfortunately post SEBASTIÁN the patient had transient hypoxia. His cath was delayed to ensure safety. I was concerned about methemoglobinemia but this did not turnout to be the case Exam Physical Exam Vital Signs: Temp Pulse Resp BP Pulse Ox O2 Del Method O2 Flow Rate 97.3 F L 67 16 123/58 L 94 L Nasal Cannula 3.5 09/14/23 03:54 09/14/23 03:54 09/14/23 03:54 09/14/23 03:54 09/14/23 03:54 09/14/23 03:54 09/14/23 03:54 Const General: cooperative Neck Neck: supple Lymphatic: no lymphadenopathy noted Resp Effort & Inspection: normal respiratory effort Auscultation: clear to auscultation bilaterally Cardio Palpation: normal PMI Rhythm: abnormal rhythm irregularly irregular Heart Sounds: S1 normal, S2 normal and murmur systolic III/ and at the left sternal border Skin General: dry skin Extrem General: full ROM and no clubbing, cyanosis or edema Objective Labs 09/14/23 06:17 09/14/23 06:17 Labs: Laboratory Results - last 24 hr 09/13/23 09/13/23 09/13/23 06:17 13:14 20:57 Corrected WBC Uncorrected WBC Count RBC Hgb Hct MCV MCH MCHC RDW Plt Count MPV Neut % (Auto) Lymph % (Auto) [place] % (Auto) Eos % (Auto) Baso % (Auto) Nucleat RBC Rel Count Neut # (Auto) Lymph # (Auto) [place] # (Auto) Eos # (Auto) Baso # (Auto) PT INR APTT Sample Site Right brachial ABG pH 7.47 H ABG pCO2 36.0 ABG pO2 52.6 L ABG HCO3 25.6 ABG Total CO2 26.7 ABG O2 Saturation 87.9 L ABG O2 Content 6.3 L ABG Base Excess 2.0 O2 Delivery Device Nasal cannula Liter Flow 3 FiO2 34 Critical Value PHA Creatinine Clear Sodium Potassium Chloride Carbon Dioxide Anion Gap BUN Creatinine Est GFR (CKD-EPI) Glucose POC Glucose 166 POC Glucose Comment Glu2: cleaned meter Calcium Magnesium Free T4 1.41 H Total T3 09/14/23 09/14/23 09/14/23 06:17 06:29 11:01 Corrected WBC 4.4 Uncorrected WBC Count 4.4 RBC 3.39 L Hgb 10.7 L Hct 31.5 L MCV 92.8 MCH 31.7 MCHC 34.2 RDW 18.1 H Plt Count 161 MPV 8.1 Neut % (Auto) 70.1 Lymph % (Auto) 15.7 [place] % (Auto) 10.8 Eos % (Auto) 2.6 Baso % (Auto) 0.8 Nucleat RBC Rel Count 0.0 Neut # (Auto) 3.1 Lymph # (Auto) 0.7 L [place] # (Auto) 0.5 Eos # (Auto) 0.1 Baso # (Auto) 0.0 PT 13.2 H INR 1.1 APTT 39.9 H Sample Site ABG pH ABG pCO2 ABG pO2 ABG HCO3 ABG Total CO2 ABG O2 Saturation ABG O2 Content ABG Base Excess O2 Delivery Device Liter Flow FiO2 Critical Value PHA Creatinine Clear 69.30 Sodium 140 Potassium 3.5 Chloride 103 Carbon Dioxide 31.3 H Anion Gap 9.2 BUN 22 Creatinine 1.02 Est GFR (CKD-EPI) > 60.0 Glucose 120 H POC Glucose 128 137 POC Glucose Comment Calcium 8.3 L Magnesium 1.6 L Free T4 Total T3 0.58 L A&P - Cardiology (1) Acute systolic (congestive) heart failure: Assessment/Problem Details: This is in the context of severe aortic stenosis, presently improved Code(s): I50.21 - Acute systolic (congestive) heart failure (2) Hypertension: Assessment/Problem Details: Not completely under control but improved since adjustments made yesterday Code(s): I10 - Essential (primary) hypertension Plan Assessment 1. Acute systolic heart failure due to LV systolic dysfunction and aortic valvedisease. SEBASTIÁN showed severe aortic stenosis with LV systolic dysfunction 2. Echocardiogram suggestive of severe aortic stenosis 3. Sick sinus syndrome status post permanent pacemaker implantation 4. Chronic atrial fibrillation 5. Long-term anticoagulation 6. Pulmonary hypertension 7. History of colon cancer status postresection with no recurrence 8. History of hypertension Plan 1. Continue diuresis with monitoring renal function 2. Plan to proceed with cardiac catheterization today 3. I discussed with patient treatment option at great length. The patient willneed evaluation for TAVR. Documented By: Joby Pinedo MD 09/14/23 1109 Signed By: <Electronically signed by MD Joby Pinedo> 09/14/23 1110 [facility] Work Phone: [phone] [facility] Progress note Author Misael Gonzales [facility] September 13, 2023 3:22pm Note Date/Time September 13, 2023 2:45 pm [facility] [address] [place] [address] Hospitalist Progress Note Signed Patient: Shahid Sanchez MR#: [id number] : 1940 Acct:[id number] Age/Sex: 82 / M Adm Date: 4 Loc: Room: [address] [place] [address] Type: ADM IN Attending Dr: Misael Gonzales MD Copies to: ~ Date of Service: 09/13/2023 Subjective Subjective Narrative: Patient's lower extremity edema is significantly improved. He is seen and assessed after SEBASTIÁN performed earlier today. He did have some dyspnea during theprocedure. Procedure did reveal left atrial thrombus. Otherwise, patient does note that his shortness of breath is improving since hospital admission. He cannow ambulate with less leg pain due to decreased edema and less shortness of breath overall. [facility] did [facility] I did explain that we will have further information on his overall condition after heart cath tomorrow. He does report to me that he is not fully adherent to his Eliquis, and does miss some doses here and there. Exam Physical Exam Vital Signs: Temp Pulse Resp BP Pulse Ox O2 Del Method O2 Flow Rate 97.6 F 72 16 130/63 95 Nasal Cannula 3 09/13/23 08:00 09/13/23 08:00 09/13/23 08:00 09/13/23 08:00 09/13/23 08:00 09/13/23 11:30 09/13/23 08:21 Narrative: Constitutional: Elderly WM, resting in bed, mild dyspnea HEENT: Dry mucous membranes, neck supple, no JVD Cardiovascular: Distant heart sounds, irregular rhythm Respiratory: Clear to auscultation bilaterally, no wheezes, rales or rhonchi GI: Soft, NTND, NABS : Deferred Extremities: 1+ edema noted in the bilateral lower extremities distally Neuro: AAOx3, no focal deficits Skin: No rashes or lesions noted upon anterior inspection Psych: Calm, cooperative and conversant Objective Lab Results 09/13/23 06:17 09/13/23 06:17 ABG Interpretation ABG results: 09/13/23 13:14 ABG pH 7.47 H ABG pCO2 36.0 ABG pO2 52.6 L ABG HCO3 25.6 ABG Total CO2 26.7 ABG O2 Saturation 87.9 L ABG O2 Content 6.3 L ABG Base Excess 2.0 Meds Allergies and Active Meds Allergies No Known Allergies Allergy (Verified 09/09/23 11:58) Active Meds: Active Medications Generic Name Dose Route Start Last Admin Trade Name Freq PRN Reason Stop Dose Admin Amlodipine Besylate 5 mg 09/12/23 09:00 09/13/23 08:04 Amlodipine 5 Mg Tablet PO 09/11/24 08:59 5 mg DAILY APPLE Administration Atorvastatin Calcium 20 mg 09/10/23 09:00 09/13/23 08:04 Atorvastatin 20 Mg Tablet PO 09/09/24 08:59 20 mg DAILY APPLE Administration Dextrose 0 gm 09/09/23 14:39 Dextrose 50% In Water 25 Gm/50 Ml Syringe IV-PUSH 09/08/24 14:38 PRN PRN Hypoglycemia Dutasteride 0.5 mg 09/09/23 21:00 09/12/23 21:35 Dutasteride 0.5 Mg Capsule PO 09/08/24 20:59 0.5 mg QPM APPLE Administration Folic Acid 1 mg 09/10/23 09:00 09/13/23 08:04 Folic Acid 1 Mg Tablet PO 09/09/24 08:59 1 mg DAILY APPLE Administration Furosemide 60 mg 09/10/23 09:00 09/12/23 15:48 Furosemide 20 Mg/2 Ml Vial IV-PUSH 09/09/24 08:59 60 mg BID@0800,1600 APPLE Administration Glucose 0 gm 09/09/23 14:39 Dextrose 40% Gel 15 Gm Tube PO 09/08/24 14:38 PRN PRN Hypoglycemia Dextrose/Sodium Chloride 1,000 mls @ 20 mls/hr 09/13/23 10:00 5 % Dextrose-0.45 % Nacl IV 09/12/24 09:59 .Q24H APPLE Dextrose/Sodium Chloride 1,000 mls @ 100 mls/hr 09/14/23 11:00 5 % Dextrose-0.45 % Nacl IV 09/13/24 10:59 .Q10H APPLE Insulin Aspart 0 units 09/09/23 17:00 09/13/23 08:04 Insulin Aspart 300 Units/3 Ml Insuln.Pen SUBCUT 09/08/24 16:59 Not Given TID.WM.[facility] Protocol Levothyroxine Sodium 50 mcg 09/10/23 06:30 09/13/23 08:04 Levothyroxine 50 Mcg Tablet PO 09/09/24 06:29 50 mcg MoTuWeThFrSa@0630 APPLE Administration Levothyroxine Sodium 100 mcg 09/12/23 06:30 09/12/23 06:04 Levothyroxine 50 Mcg Tablet PO 09/11/24 06:29 100 mcg Adams@0630 APPLE Administration Metoprolol Succinate 50 mg 09/11/23 15:00 09/13/23 08:04 Metoprolol Succinate 50 Mg Tab.Er.24h PO 09/10/24 14:59 50 mg DAILY APPLE Administration Miscellaneous Information 1 each 09/13/23 13:07 Consult To Pharmacy MISCELLANE 09/12/24 13:06 .PHACONSULT PRN ZZ.Pharmacy Consult Protocol Montelukast Sodium 10 mg 09/10/23 09:00 09/13/23 08:04 Montelukast 10 Mg Tablet PO 09/09/24 08:59 10 mg DAILY APPLE Administration Potassium Chloride 40 meq 09/13/23 07:00 Potassium Chloride Er 20 Meq Tab.Er.Prt PO STAT PRN Hypokalemia Potassium Chloride 40 meq 09/14/23 07:00 Potassium Chloride Er 20 Meq Tab.Er.Prt PO STAT PRN Hypokalemia Sodium Chloride 0 ml 09/09/23 11:56 09/12/23 15:48 Sodium Chloride 0.9 % 10 Ml Syringe IV-PUSH 09/08/24 11:55 10 ml PRN PRN Administration Flush Sodium Chloride 0 ml 09/10/23 14:19 09/11/23 15:57 Sodium Chloride 0.9 % 10 Ml Syringe IV-PUSH 09/09/24 14:18 10 ml PRN PRN Administration Flush Sodium Chloride 0 ml 09/13/23 13:07 Sodium Chloride 0.9 % 10 Ml Syringe IV-PUSH 09/12/24 13:06 PRN PRN Flush Spironolactone 25 mg 09/13/23 13:30 Spironolactone 25 Mg Tablet PO 09/12/24 13:29 DAILY APPLE Tamsulosin HCl 0.4 mg 09/10/23 09:00 09/13/23 08:04 Tamsulosin 0.4 Mg Cap.Er.24h PO 09/09/24 08:59 0.4 mg DAILY APPLE Administration Vitamin D 25 mcg 09/10/23 09:00 09/13/23 08:04 Cholecalciferol 25 Mcg (1,000 Units) Tablet PO 09/09/24 08:59 25 mcg DAILY APPLE Administration A&P - Hospitalist Assessment/Plan (1) Acute exacerbation of CHF (congestive heart failure): (2) A-fib: (3) Rheumatoid arthritis: (4) Hypercholesteremia: (5) Hypertension: (6) Hypothyroidism: Plan ASSESSMENT AND PLAN: Acute systolic heart failure L Atrial Thrombus Severe pulmonary hypertension Sick sinus syndrome status post pacemaker Atrial fibrillation Patient seen and assessed after SEBASTIÁN today. Left atrial thrombus noted on SEBASTIÁN. Given his combination of severe aortic stenosis, left atrial thrombus, acute heart failure, will defer to cardiology for further inpatient workup and recommendations. Will discuss with them regarding blood thinning agents. -Likely will need to initiate full anticoagulation, will discuss with cardiology -Continue monitoring on telemetry -IV Lasix 60 mg BID -Monitor intake and output, daily weights, low-salt diet -Continue to hold Entresto -Continue other medical management per cardiology: Metoprolol, amlodipine, spironolactone DM type II-[id number] insulin, hypoglycemia protocol, DM diet Hypothyroidism-TSH elevated, check free T4 Chronic medical conditions noted below, continue home regimens unless otherwise specified: Hypertension Hyperlipidemia Rheumatoid arthritis on methotrexate CODE STATUS: Full code DVT prophylaxis- Switched to Lovenox Documented By: Misael Gonzales MD 4 [id number] Signed By: <Electronically signed by Misael Gonzales MD> 09/13/23 1522 [facility] Work Phone: [phone] Progress note Author Joby Pinedo [facility] September 13, 2023 10:55am Note Date/Time September 13, 2023 10:5 5am [facility] [address] [place] [address] Cardiology Progress Note Signed Patient: Shahid Sanchez MR#: [id number] : 1940 Acct:[id number] Age/Sex: 82 / M Adm Date: 4 Loc: Room: [address] [place] [address] Type: ADM IN Attending Dr: Misael Gonzales MD Copies to: ~ Date of Service: 09/13/2023 Subjective Principal diagnosis: Dyspnea on exertion Interval history: Patient feels better. Less short of breath. Renal function stable Exam Physical Exam Vital Signs: Temp Pulse Resp BP Pulse Ox O2 Del Method O2 Flow Rate 97.8 F 65 16 131/66 93 L Nasal Cannula 3 09/13/23 04:00 09/13/23 04:00 09/13/23 04:00 09/13/23 04:00 09/13/23 04:00 09/13/23 08:21 09/13/23 08:21 Resp Effort & Inspection: normal respiratory effort Auscultation: clear to auscultation bilaterally Cardio Palpation: normal PMI Rhythm: abnormal rhythm irregularly irregular Heart Sounds: S1 normal, S2 normal and murmur systolic III/ and at the left sternal border Skin General: dry skin Extrem General: full ROM and no clubbing, cyanosis or edema Objective Labs 09/13/23 06:17 09/13/23 06:17 Labs: Laboratory Results - last 24 hr 09/10/23 09/10/23 09/11/23 11:43 16:40 11:15 Corrected WBC Uncorrected WBC Count RBC Hgb Hct MCV MCH MCHC RDW Plt Count MPV Neut % (Auto) Lymph % (Auto) [place] % (Auto) Eos % (Auto) Baso % (Auto) Nucleat RBC Rel Count Neut # (Auto) Lymph # (Auto) [place] # (Auto) Eos # (Auto) Baso # (Auto) PT INR APTT PHA Creatinine Clear Sodium Potassium Chloride Carbon Dioxide Anion Gap BUN Creatinine Est GFR (CKD-EPI) Glucose POC Glucose 176 178 213 Calcium Magnesium Total Bilirubin AST ALT Alkaline Phosphatase Total Protein Albumin Globulin Albumin/Globulin Ratio 09/11/23 09/12/23 09/12/23 16:24 11:09 16:25 Corrected WBC Uncorrected WBC Count RBC Hgb Hct MCV MCH MCHC RDW Plt Count MPV Neut % (Auto) Lymph % (Auto) [place] % (Auto) Eos % (Auto) Baso % (Auto) Nucleat RBC Rel Count Neut # (Auto) Lymph # (Auto) [place] # (Auto) Eos # (Auto) Baso # (Auto) PT INR APTT PHA Creatinine Clear Sodium Potassium Chloride Carbon Dioxide Anion Gap BUN Creatinine Est GFR (CKD-EPI) Glucose POC Glucose 192 275 146 Calcium Magnesium Total Bilirubin AST ALT Alkaline Phosphatase Total Protein Albumin Globulin Albumin/Globulin Ratio 09/12/23 09/13/23 09/13/23 21:35 06:17 07:03 Corrected WBC 5.6 Uncorrected WBC Count 5.6 RBC 3.44 L Hgb 11.0 L Hct 31.7 L MCV 92.2 MCH 32.0 MCHC 34.8 RDW 17.6 H Plt Count 183 MPV 8.0 Neut % (Auto) 73.6 Lymph % (Auto) 12.9 [place] % (Auto) 8.1 Eos % (Auto) 4.5 Baso % (Auto) 0.9 Nucleat RBC Rel Count 0.1 Neut # (Auto) 4.1 Lymph # (Auto) 0.7 L [place] # (Auto) 0.5 Eos # (Auto) 0.3 Baso # (Auto) 0.1 PT 12.9 INR 1.1 APTT 36.5 PHA Creatinine Clear 65.76 Sodium 141 Potassium 3.8 Chloride 103 Carbon Dioxide 31.9 H Anion Gap 9.9 BUN 23 Creatinine 1.06 Est GFR (CKD-EPI) > 60.0 Glucose 111 H POC Glucose 166 117 Calcium 8.3 L Magnesium 1.7 L Total Bilirubin 1.5 H AST 17 ALT 12 Alkaline Phosphatase 47 Total Protein 5.4 L Albumin 3.2 L Globulin 2.2 Albumin/Globulin Ratio 1.5 A&P - Cardiology (1) Acute systolic (congestive) heart failure: Code(s): I50.21 - Acute systolic (congestive) heart failure (2) Hypertension: Code(s): I10 - Essential (primary) hypertension Plan Assessment 1. Acute systolic heart failure due to LV systolic dysfunction and aortic valvedisease 2. Echocardiogram suggestive of severe aortic stenosis 3. Sick sinus syndrome status post permanent pacemaker implantation 4. Chronic atrial fibrillation 5. Long-term anticoagulation 6. Pulmonary hypertension 7. History of colon cancer status postresection with no recurrence 8. History of hypertension Plan 1. Continue diuresis with monitoring renal function 2. Hold anticoagulation will proceed with cardiac catheterization today 3. I discussed with patient treatment option at great length. The patient willneed evaluation for TAVR. Plan for proceeding with cath and SEBASTIÁN today 4 . D/C Entresto due to sever Documented By: Joby iPnedo MD 09/13/23 1053 Signed By: <Electronically signed by MD Joby Pineod> 09/13/23 1054 [facility] Work Phone: [phone] 911-213606-16-2024 Progress note Author Nash Harris [facility] September 12, 2023 3:38pm Note Date/Time September 12, 2023 3:38 pm [facility] [address] [place] [address] Hospitalist Progress Note Signed Patient: Shahid Sanchez MR#: [id number] : 1940 Acct:[id number] Age/Sex: 82 / M Adm Date: 4 Loc: Room: [address] [place] [address] Type: ADM IN Attending Dr: Nash Harris MD Copies to: ~ Date of Service: 09/12/2023 Subjective Subjective Narrative: Seen at bedside. He was having lunch sitting upright. He did not have any shortness of breath at this time. Lower extremity edema is improving. Patient was seen by the cardiology he will go for SEBASTIÁN/left heart cath tomorrow. Exam Physical Exam Vital Signs: Temp Pulse Resp BP Pulse Ox O2 Del Method O2 Flow Rate 97.5 F L 70 18 107/65 98 Nasal Cannula 2.5 09/12/23 11:48 09/12/23 11:48 09/12/23 11:48 09/12/23 11:48 09/12/23 11:48 09/12/23 11:48 09/12/23 11:48 Const General: cooperative, no acute distress and well hydrated Orientation: alert, awake and oriented x3 HEENT Head: normocephalic and atraumatic Face and sinus: normal facial exam and sinuses nontender Mouth: oral mucosae normal Eyes Conjunctivae: conjunctivae normal Sclera: sclerae normal Neck Thyroid: thyroid normal Carotids: normal carotid upstroke Lymphatic: no lymphadenopathy noted Resp Effort & Inspection: normal respiratory effort, able to speak in complete sentences and symmetric chest movement Auscultation: clear to auscultation bilaterally Cardio Palpation: normal PMI Rate: regular rate Rhythm: regular rhythm Heart Sounds: S1 normal and S2 normal Pulses: dorsalis pedis present GI Palpation: soft and no hepatosplenomegaly Auscultation: normal bowel sounds Skin General: no rashes or lesions noted and turgor normal Neuro General: tone normal and moves all extremities Speech: speech normal Motor: muscle tone normal throughout Sensory Exam: no sensory deficits noted Objective Lab Results 09/12/23 05:54 09/12/23 05:54 Meds Allergies and Active Meds Allergies No Known Allergies Allergy (Verified 09/09/23 11:58) Active Meds: Active Medications Generic Name Dose Route Start Last Admin Trade Name Freq PRN Reason Stop Dose Admin Amlodipine Besylate 5 mg 09/12/23 09:00 09/12/23 08:19 Amlodipine 5 Mg Tablet PO 09/11/24 08:59 5 mg DAILY APPLE Administration Atorvastatin Calcium 20 mg 09/10/23 09:00 09/12/23 08:19 Atorvastatin 20 Mg Tablet PO 09/09/24 08:59 20 mg DAILY APPLE Administration Benzocaine 1 applic 09/13/23 10:00 Benzocaine 20% [place] 57 Gm Can MUCOUS MEM ONCE PRN SEBASTIÁN Procedure Dextrose 0 gm 09/09/23 14:39 Dextrose 50% In Water 25 Gm/50 Ml Syringe IV-PUSH 09/08/24 14:38 PRN PRN Hypoglycemia Dutasteride 0.5 mg 09/09/23 21:00 09/11/23 21:27 Dutasteride 0.5 Mg Capsule PO 09/08/24 20:59 0.5 mg QPM APPLE Administration Folic Acid 1 mg 09/10/23 09:00 09/12/23 08:19 Folic Acid 1 Mg Tablet PO 09/09/24 08:59 1 mg DAILY APPLE Administration Furosemide 60 mg 09/10/23 09:00 09/12/23 08:19 Furosemide 20 Mg/2 Ml Vial IV-PUSH 09/09/24 08:59 60 mg BID@0800,1600 APPLE Administration Glucose 0 gm 09/09/23 14:39 Dextrose 40% Gel 15 Gm Tube PO 09/08/24 14:38 PRN PRN Hypoglycemia Dextrose/Sodium Chloride 1,000 mls @ 20 mls/hr 09/13/23 10:00 5 % Dextrose-0.45 % Nacl IV 09/12/24 09:59 .Q24H APPLE Dextrose/Sodium Chloride 1,000 mls @ 100 mls/hr 09/13/23 12:00 5 % Dextrose-0.45 % Nacl IV 09/12/24 11:59 .Q10H APPLE Insulin Aspart 0 units 09/09/23 17:00 09/12/23 11:48 Insulin Aspart 300 Units/3 Ml Insuln.Pen SUBCUT 09/08/24 16:59 3 units TID.WM.HS APPLE Administration Protocol Levothyroxine Sodium 50 mcg 09/10/23 06:30 09/11/23 06:54 Levothyroxine 50 Mcg Tablet PO 09/09/24 06:29 50 mcg MoTuWeThFrSa@0630 APPLE Administration Levothyroxine Sodium 100 mcg 09/12/23 06:30 09/12/23 06:04 Levothyroxine 50 Mcg Tablet PO 09/11/24 06:29 100 mcg Adams@0630 APPLE Administration Lidocaine HCl 15 ml 09/13/23 10:00 Lidocaine 2% Viscous 15 Ml Udc MUCOUS MEM ONCE PRN SEBASTIÁN Procedure Metoprolol Succinate 50 mg 09/11/23 15:00 09/12/23 08:19 Metoprolol Succinate 50 Mg Tab.Er.24h PO 09/10/24 14:59 50 mg DAILY APPLE Administration Midazolam HCl 0 mg 09/13/23 10:00 Midazolam/Pf 10 Mg/2 Ml Vial IV-PUSH ONCE PRN SEBASTIÁN Procedure Miscellaneous Information 1 each 09/10/23 14:19 Consult To Pharmacy MISCELLANE 09/09/24 14:18 .PHACONSULT PRN ZZ.Pharmacy Consult Protocol Montelukast Sodium 10 mg 09/10/23 09:00 09/12/23 08:19 Montelukast 10 Mg Tablet PO 09/09/24 08:59 10 mg DAILY APPLE Administration Potassium Chloride 40 meq 09/13/23 07:00 Potassium Chloride Er 20 Meq Tab.Er.Prt PO STAT PRN Hypokalemia Propofol 0 mg 09/13/23 10:00 Propofol 200 Mg/20 Ml Vial IV-PUSH ONCE PRN SEBASTIÁN Procedure Sodium Chloride 0 ml 09/09/23 11:56 09/12/23 08:20 Sodium Chloride 0.9 % 10 Ml Syringe IV-PUSH 09/08/24 11:55 10 ml PRN PRN Administration Flush Sodium Chloride 0 ml 09/10/23 14:19 09/11/23 15:57 Sodium Chloride 0.9 % 10 Ml Syringe IV-PUSH 09/09/24 14:18 10 ml PRN PRN Administration Flush Spironolactone 25 mg 09/09/23 16:35 09/12/23 08:19 Spironolactone 25 Mg Tablet PO 09/08/24 16:34 25 mg DAILY APPLE Administration Tamsulosin HCl 0.4 mg 09/10/23 09:00 09/12/23 08:19 Tamsulosin 0.4 Mg Cap.Er.24h PO 09/09/24 08:59 0.4 mg DAILY APPLE Administration Vitamin D 25 mcg 09/10/23 09:00 09/12/23 08:19 Cholecalciferol 25 Mcg (1,000 Units) Tablet PO 09/09/24 08:59 25 mcg DAILY APPLE Administration A&P - Hospitalist Assessment/Plan (1) Acute exacerbation of CHF (congestive heart failure): (2) A-fib: (3) Rheumatoid arthritis: (4) Hypercholesteremia: (5) Hypertension: (6) Hypothyroidism: Plan ASSESSMENT AND PLAN: 09/12/2023 Continue monitoring in telemetry IV Lasix 60 mg BID diuresis Monitor intake and output, daily weights, low-salt diet Appreciate consult recommendation by cardiology Check TSH Trend cardiac enzymes Hold Entresto for severe aortic stenosis Home medication will be ordered as appropriate once reconciled by RN/pharmacist Sliding-scale insulin, hypoglycemia protocol, DM diet Patient will have SEBASTIÁN/LHC on Wednesday Full code DVT prophylaxis-already on Eliquis Documented By: Nash Harris MD 09/12/23 1533 Signed By: <Electronically signed by Nash Harris MD> 09/12/23 1538 [facility] Work Phone: [phone] 339-843906-16-2024 Progress note Author Gabe Bowens [facility] September 12, 2023 11:29am Note Date/Time September 12, 2023 11:2 9am [facility] [address] [place] [address] Cardiology Progress Note Signed Patient: Shahid Sanchez MR#: [id number] : 1940 Acct:[id number] Age/Sex: 82 / M Adm Date: 4 Loc: Room: [address] [place] [address] Type: ADM IN Attending Dr: Nash Harris MD Copies to: ~ Date of Service: 09/12/2023 Subjective Principal diagnosis: Dyspnea on exertion Interval history: Patient is stable and currently has no complaints while at rest. He is scheduled for cardiac catheterization and SEBASTIÁN in 24 hours, blood pressure slightly elevated but acceptable Exam Physical Exam Vital Signs: Temp Pulse Resp BP Pulse Ox O2 Del Method O2 Flow Rate 97.5 F L 64 18 147/69 H 95 Nasal Cannula 2.5 09/12/23 08:17 09/12/23 08:17 09/12/23 08:17 09/12/23 08:17 09/12/23 08:17 09/12/23 08:17 09/12/23 08:17 Const General: cooperative, comfortable and no acute distress Nutritional Appearance: obese Orientation: alert, awake and oriented x3 HEENT Head: normal to inspection, normocephalic and atraumatic Ears: hearing grossly normal bilaterally Nose: external nose normal Face and sinus: normal facial exam Eyes Conjunctivae: conjunctivae normal Pupils: PERRL Neck Neck: trachea midline and supple Neck mass: No Thyroid: thyroid normal Carotids: normal carotid upstroke Resp Effort & Inspection: normal respiratory effort Auscultation: clear to auscultation bilaterally Cardio Jugular venous pressure: no JVD Palpation: normal PMI Rate: regular rate Rhythm: regular rhythm Heart Sounds: S1 normal, S2 normal and murmur (2-3/6 systolic ejection murmur) GI Inspection: normal to inspection Palpation: soft and no hepatosplenomegaly Auscultation: normal bowel sounds Extrem General: no clubbing, cyanosis or edema Objective Labs 09/12/23 05:54 09/12/23 05:54 Labs: Laboratory Results - last 24 hr 09/11/23 09/12/23 09/12/23 21:03 05:54 06:58 Corrected WBC 6.5 Uncorrected WBC Count 6.5 RBC 3.55 L Hgb 11.3 L Hct 33.0 L MCV 92.9 MCH 31.8 MCHC 34.2 RDW 18.2 H Plt Count 210 MPV 8.0 Neut % (Auto) 75.2 Lymph % (Auto) 14.8 [place] % (Auto) 5.8 Eos % (Auto) 3.5 Baso % (Auto) 0.7 Nucleat RBC Rel Count 0.0 Neut # (Auto) 4.9 Lymph # (Auto) 1.0 [place] # (Auto) 0.4 Eos # (Auto) 0.2 Baso # (Auto) 0.0 PHA Creatinine Clear 70.37 Sodium 139 Potassium 3.7 Chloride 102 Carbon Dioxide 31.0 Anion Gap 9.7 BUN 22 Creatinine 0.99 Est GFR (CKD-EPI) > 60.0 Glucose 121 H POC Glucose 168 127 Calcium 8.6 Magnesium 1.7 L 09/12/23 11:09 Corrected WBC Uncorrected WBC Count RBC Hgb Hct MCV MCH MCHC RDW Plt Count MPV Neut % (Auto) Lymph % (Auto) [place] % (Auto) Eos % (Auto) Baso % (Auto) Nucleat RBC Rel Count Neut # (Auto) Lymph # (Auto) [place] # (Auto) Eos # (Auto) Baso # (Auto) PHA Creatinine Clear Sodium Potassium Chloride Carbon Dioxide Anion Gap BUN Creatinine Est GFR (CKD-EPI) Glucose POC Glucose 275 Calcium Magnesium A&P - Cardiology (1) Acute systolic (congestive) heart failure: Assessment/Problem Details: This is in the context of severe aortic stenosis, presently improved Plan: Further cardiac investigations with cardiac catheterization scheduled this coming Wednesday Code(s): I50.21 - Acute systolic (congestive) heart failure (2) Hypertension: Assessment/Problem Details: Not completely under control but improved since adjustments made yesterday Plan: Continue current therapy Code(s): I10 - Essential (primary) hypertension (3) Severe aortic stenosis: Assessment/Problem Details: Patient was not aware of this diagnosis previously Plan: Further cardiac evaluation invasively on Wednesday in preparation for TAVR if he qualifies Code(s): I35.0 - Nonrheumatic aortic (valve) stenosis (4) Sick sinus syndrome: Assessment/Problem Details: Status post PEG insertion Code(s): I49.5 - Sick sinus syndrome (5) Heart block, AV: Assessment/Problem Details: Status post maker insertion Code(s): I44.30 - Unspecified atrioventricular block (6) A-fib: Assessment/Problem Details: Chronically anticoagulated Qualifiers: Atrial fibrillation type: permanent Qualified Code(s): I48.21 - Permanent atrial fibrillation Plan: Anticoagulants have been held in preparation for cardiac catheterization in 48 hours Code(s): I48.91 - Unspecified atrial fibrillation Plan Assessment 1. Acute systolic heart failure I suspect due to aortic valve disease 2. Echocardiogram suggestive of severe aortic stenosis 3. Sick sinus syndrome status post permanent pacemaker implantation 4. Chronic atrial fibrillation 5. Long-term anticoagulation 6. Pulmonary hypertension 7. History of colon cancer status postresection with no recurrence 8. History of hypertension Plan 1. Continue diuresis with monitoring renal function 2. Hold anticoagulation anticipating cardiac cath on Wednesday 3. I discussed with patient treatment option at great length. The patient willneed evaluation for TAVR. Will arrange for SEBASTIÁN/heart cath on Wednesday 4 . D/C Entresto due to sever Documented By: Gabe Bowens MD, [facility] 4 1127 Signed By: <Electronically signed by [facility] Gabe Bowens> 09/12/23 1129 [facility] Work Phone: [phone]) 910-585606-15-2024 Progress note Author Nash Harris [facility] September 11, 2023 7:49pm Note Date/Time September 11, 2023 7:49 pm [facility] [address] [place] [address] Hospitalist Progress Note Signed Patient: Shahid Sanchez MR#: [id number] : 1940 Acct:[id number] Age/Sex: 82 / M Adm Date: 4 Loc: Room: [address] [place] [address] Type: ADM IN Attending Dr: Nash Harris MD Copies to: ~ Date of Service: 09/11/2023 Subjective Subjective Narrative: Seen at bedside. He was having lunch sitting upright. He did not have any shortness of breath at this time. Lower extremity edema is improving. Patient was seen by the cardiology he will go for SEBASTIÁN/left heart cath on Wednesday Exam Physical Exam Vital Signs: Temp Pulse Resp BP Pulse Ox O2 Del Method O2 Flow Rate 98.2 F 70 18 117/54 L 100 Nasal Cannula 4 09/11/23 15:55 09/11/23 15:55 09/11/23 15:55 09/11/23 15:55 09/11/23 15:55 09/11/23 16:00 09/11/23 16:00 Const General: cooperative, no acute distress and well hydrated Orientation: alert, awake and oriented x3 HEENT Head: normocephalic and atraumatic Face and sinus: normal facial exam and sinuses nontender Mouth: oral mucosae normal Eyes Conjunctivae: conjunctivae normal Sclera: sclerae normal Neck Thyroid: thyroid normal Carotids: normal carotid upstroke Lymphatic: no lymphadenopathy noted Resp Effort & Inspection: normal respiratory effort, able to speak in complete sentences and symmetric chest movement Auscultation: clear to auscultation bilaterally Cardio Palpation: normal PMI Rate: regular rate Rhythm: regular rhythm Heart Sounds: S1 normal and S2 normal Pulses: dorsalis pedis present GI Palpation: soft and no hepatosplenomegaly Auscultation: normal bowel sounds Skin General: no rashes or lesions noted and turgor normal Neuro General: tone normal and moves all extremities Speech: speech normal Motor: muscle tone normal throughout Sensory Exam: no sensory deficits noted Objective Lab Results 09/11/23 05:55 09/11/23 05:55 Meds Allergies and Active Meds Allergies No Known Allergies Allergy (Verified 09/09/23 11:58) Active Meds: Active Medications Generic Name Dose Route Start Last Admin Trade Name Freq PRN Reason Stop Dose Admin Amlodipine Besylate 5 mg 09/12/23 09:00 Amlodipine 5 Mg Tablet PO 09/11/24 08:59 DAILY APPLE Atorvastatin Calcium 20 mg 09/10/23 09:00 09/11/23 08:13 Atorvastatin 20 Mg Tablet PO 09/09/24 08:59 20 mg DAILY APPLE Administration Benzocaine 1 applic 09/13/23 10:00 Benzocaine 20% [place] 57 Gm Can MUCOUS MEM ONCE PRN SEBASTIÁN Procedure Dextrose 0 gm 09/09/23 14:39 Dextrose 50% In Water 25 Gm/50 Ml Syringe IV-PUSH 09/08/24 14:38 PRN PRN Hypoglycemia Dutasteride 0.5 mg 09/09/23 21:00 09/10/23 21:03 Dutasteride 0.5 Mg Capsule PO 09/08/24 20:59 0.5 mg QPM APPLE Administration Folic Acid 1 mg 09/10/23 09:00 09/11/23 08:13 Folic Acid 1 Mg Tablet PO 09/09/24 08:59 1 mg DAILY APPLE Administration Furosemide 60 mg 09/10/23 09:00 09/11/23 15:56 Furosemide 20 Mg/2 Ml Vial IV-PUSH 09/09/24 08:59 60 mg BID@0800,1600 APPLE Administration Glucose 0 gm 09/09/23 14:39 Dextrose 40% Gel 15 Gm Tube PO 09/08/24 14:38 PRN PRN Hypoglycemia Dextrose/Sodium Chloride 1,000 mls @ 20 mls/hr 09/13/23 10:00 5 % Dextrose-0.45 % Nacl IV 09/12/24 09:59 .Q24H APPLE Dextrose/Sodium Chloride 1,000 mls @ 100 mls/hr 09/13/23 12:00 5 % Dextrose-0.45 % Nacl IV 09/12/24 11:59 .Q10H APPLE Insulin Aspart 0 units 09/09/23 17:00 09/11/23 16:39 Insulin Aspart 300 Units/3 Ml Insuln.Pen SUBCUT 09/08/24 16:59 1 units TID.WM.HS APPLE Administration Protocol Levothyroxine Sodium 50 mcg 09/10/23 06:30 09/11/23 06:54 Levothyroxine 50 Mcg Tablet PO 09/09/24 06:29 50 mcg MoTuWeThFrSa@0630 APPLE Administration Levothyroxine Sodium 100 mcg 09/12/23 06:30 Levothyroxine 50 Mcg Tablet PO 09/11/24 06:29 Adams@0630 APPLE Lidocaine HCl 15 ml 09/13/23 10:00 Lidocaine 2% Viscous 15 Ml Udc MUCOUS MEM ONCE PRN SEBASTIÁN Procedure Metoprolol Succinate 50 mg 09/11/23 15:00 09/11/23 14:43 Metoprolol Succinate 50 Mg Tab.Er.24h PO 09/10/24 14:59 50 mg DAILY APPLE Administration Midazolam HCl 0 mg 09/13/23 10:00 Midazolam/Pf 10 Mg/2 Ml Vial IV-PUSH ONCE PRN SEBASTIÁN Procedure Miscellaneous Information 1 each 09/10/23 14:19 Consult To Pharmacy MISCELLANE 09/09/24 14:18 .PHACONSULT PRN ZZ.Pharmacy Consult Protocol Montelukast Sodium 10 mg 09/10/23 09:00 09/11/23 08:13 Montelukast 10 Mg Tablet PO 09/09/24 08:59 10 mg DAILY APPLE Administration Potassium Chloride 40 meq 09/13/23 07:00 Potassium Chloride Er 20 Meq Tab.Er.Prt PO STAT PRN Hypokalemia Propofol 0 mg 09/13/23 10:00 Propofol 200 Mg/20 Ml Vial IV-PUSH ONCE PRN SEBASTIÁN Procedure Sodium Chloride 0 ml 09/09/23 11:56 09/10/23 08:28 Sodium Chloride 0.9 % 10 Ml Syringe IV-PUSH 09/08/24 11:55 10 ml PRN PRN Administration Flush Sodium Chloride 0 ml 09/10/23 14:19 09/11/23 15:57 Sodium Chloride 0.9 % 10 Ml Syringe IV-PUSH 09/09/24 14:18 10 ml PRN PRN Administration Flush Spironolactone 25 mg 09/09/23 16:35 09/11/23 08:13 Spironolactone 25 Mg Tablet PO 09/08/24 16:34 25 mg DAILY APPLE Administration Tamsulosin HCl 0.4 mg 09/10/23 09:00 09/11/23 08:13 Tamsulosin 0.4 Mg Cap.Er.24h PO 09/09/24 08:59 0.4 mg DAILY APPLE Administration Vitamin D 25 mcg 09/10/23 09:00 09/11/23 08:13 Cholecalciferol 25 Mcg (1,000 Units) Tablet PO 09/09/24 08:59 25 mcg DAILY APPLE Administration A&P - Hospitalist Assessment/Plan (1) Acute exacerbation of CHF (congestive heart failure): (2) A-fib: (3) Rheumatoid arthritis: (4) Hypercholesteremia: (5) Hypertension: (6) Hypothyroidism: Plan ASSESSMENT AND PLAN: 09/11/2023 Continue monitoring in telemetry Resume IV Lasix diuresis as per lodging facilities attendant. Monitor intake and output, daily weights, low-salt diet Obtain an echocardiogram Appreciate consult recommendation by cardiology Check TSH Trend cardiac enzymes Hold Entresto for severe aortic stenosis Home medication will be ordered as appropriate once reconciled by RN/pharmacist Sliding-scale insulin, hypoglycemia protocol, DM diet Patient will have SEBASTIÁN/LHC on Wednesday Full code DVT prophylaxis-already on Eliquis Documented By: Nash Harris MD 09/11/231945 Signed By: <Electronically signed by Nash Harris MD> 09/11/231948 [facility] Work Phone: [phone] Progress note Author Gabe Bowens [facility] September 11, 2023 12:46pm Note Date/Time September 11, 2023 12:3 9pm [facility] [address] [place] [address] Cardiology Progress Note Signed Patient: Shahid Sanchez MR#: [id number] : 1940 Acct:[id number] Age/Sex: 82 / M Adm Date: 4 Loc: Room: [address] [place] [address] Type: ADM IN Attending Dr: Nash Harris MD Copies to: ~ Date of Service: 09/11/2023 Subjective Principal diagnosis: Dyspnea on exertion Interval history: Patient is stable and currently has no complaints while at rest. He is scheduled for cardiac catheterization and SEBASTIÁN in 48 hours, blood pressure slightly elevated Exam Physical Exam Vital Signs: Temp Pulse Resp BP Pulse Ox O2 Del Method O2 Flow Rate 98.1 F 69 18 158/70 H 93 L Nasal Cannula 6 09/11/23 08:11 09/11/23 08:11 09/11/23 08:11 09/11/23 08:11 09/11/23 08:11 09/11/23 08:11 09/11/23 08:11 Const General: cooperative, comfortable and no acute distress Nutritional Appearance: obese Orientation: alert, awake and oriented x3 HEENT Head: normal to inspection, normocephalic and atraumatic Ears: hearing grossly normal bilaterally Nose: external nose normal Face and sinus: normal facial exam Eyes Conjunctivae: conjunctivae normal Pupils: PERRL Neck Neck: trachea midline and supple Neck mass: No Thyroid: thyroid normal Carotids: normal carotid upstroke Resp Effort & Inspection: normal respiratory effort Auscultation: clear to auscultation bilaterally Cardio Jugular venous pressure: no JVD Palpation: normal PMI Rate: regular rate Rhythm: regular rhythm Heart Sounds: S1 normal, S2 normal and murmur (2-3/6 systolic ejection murmur) GI Inspection: normal to inspection Palpation: soft and no hepatosplenomegaly Auscultation: normal bowel sounds Extrem General: no clubbing, cyanosis or edema Objective Labs 09/11/23 05:55 09/11/23 05:55 Labs: Laboratory Results - last 24 hr 09/10/23 09/11/23 09/11/23 22:17 05:55 06:49 Corrected WBC 6.3 Uncorrected WBC Count 6.3 RBC 3.37 L Hgb 10.9 L Hct 31.3 L MCV 92.9 MCH 32.2 MCHC 34.7 RDW 17.4 H Plt Count 185 D MPV 7.6 Neut % (Auto) 80.6 Lymph % (Auto) 11.4 [place] % (Auto) 4.5 Eos % (Auto) 2.9 Baso % (Auto) 0.6 Nucleat RBC Rel Count 0.0 Neut # (Auto) 5.1 Lymph # (Auto) 0.7 L [place] # (Auto) 0.3 Eos # (Auto) 0.2 Baso # (Auto) 0.0 PHA Creatinine Clear 77.46 Sodium 139 Potassium 3.2 L Chloride 102 Carbon Dioxide 31.5 H Anion Gap 8.7 BUN 23 Creatinine 0.91 Est GFR (CKD-EPI) > 60.0 Glucose 122 H D POC Glucose 157 141 Calcium 8.3 L Magnesium 1.5 L A&P - Cardiology (1) Acute systolic (congestive) heart failure: Assessment/Problem Details: This is in the context of severe aortic stenosis, presently improved Plan: Further cardiac investigations with cardiac catheterization scheduled this coming Wednesday, ensure adequate blood pressure control Code(s): I50.21 - Acute systolic (congestive) heart failure (2) Hypertension: Assessment/Problem Details: Not completely under control Plan: Will increase metoprolol succinate up to 50 mg daily and add amlodipine 5 mg daily Code(s): I10 - Essential (primary) hypertension (3) Severe aortic stenosis: Assessment/Problem Details: Patient was not aware of this diagnosis previously Plan: Further cardiac evaluation invasively on Wednesday in preparation for TAVR if he qualifies Code(s): I35.0 - Nonrheumatic aortic (valve) stenosis (4) Sick sinus syndrome: Assessment/Problem Details: Status post PEG insertion Code(s): I49.5 - Sick sinus syndrome (5) Heart block, AV: Assessment/Problem Details: Status post maker insertion Code(s): I44.30 - Unspecified atrioventricular block (6) Hypokalemia: Plan: Maintain potassium level around 4 mmol/L Code(s): E87.6 - Hypokalemia (7) A-fib: Assessment/Problem Details: Chronically anticoagulated Qualifiers: Atrial fibrillation type: permanent Qualified Code(s): I48.21 - Permanent atrial fibrillation Plan: Anticoagulants have been held in preparation for cardiac catheterization in 48 hours Code(s): I48.91 - Unspecified atrial fibrillation Plan Assessment 1. Acute systolic heart failure I suspect due to aortic valve disease 2. Echocardiogram suggestive of severe aortic stenosis 3. Sick sinus syndrome status post permanent pacemaker implantation 4. Chronic atrial fibrillation 5. Long-term anticoagulation 6. Pulmonary hypertension 7. History of colon cancer status postresection with no recurrence 8. History of hypertension Plan 1. Continue diuresis with monitoring renal function 2. Hold anticoagulation anticipating cardiac cath on Wednesday 3. I discussed with patient treatment option at great length. The patient willneed evaluation for TAVR. Will arrange for SEBASTIÁN/heart cath on Wednesday 4 . D/C Entresto due to sever Documented By: Gabe Bowens MD, [facility] 4 1237 Signed By: <Electronically signed by [facility] Gabe Bowens> 09/11/23 7266 [facility] Work Phone: 1(515) 772-265206-14-2024 Progress note Author Joby Pinedo [facility] September 10, 2023 2:02pm Note Date/Time September 10, 2023 1:59 pm [facility] [address] [place] [address] Cardiology Progress Note Signed Patient: Shahid Sanchez MR#: [id number] : 1940 Acct:[id number] Age/Sex: 82 / M Adm Date: 4 Loc: 3T Room: [address] [place] [address] Type: ADM IN Attending Dr: Astrid Osman DO Copies to: ~ Date of Service: 09/10/2023 Subjective Interval history: Patient feels better. Less short of breath Exam Physical Exam Vital Signs: Temp Pulse Resp BP Pulse Ox O2 Del Method O2 Flow Rate 97.6 F 68 18 130/69 97 Room Air 6 09/10/23 12:15 09/10/23 12:15 09/10/23 12:15 09/10/23 12:15 09/10/23 12:15 09/10/23 12:15 09/10/23 08:43 Const General: cooperative Neck Neck: supple Lymphatic: no lymphadenopathy noted Resp Effort & Inspection: normal respiratory effort Auscultation: clear to auscultation bilaterally Cardio Palpation: normal PMI Rhythm: abnormal rhythm irregularly irregular Heart Sounds: S1 normal, S2 normal and murmur systolic III/ and at the left sternal border Skin General: dry skin Extrem General: full ROM and no clubbing, cyanosis or edema Objective Labs 09/09/23 12:15 09/09/23 12:15 Labs: Laboratory Results - last 24 hr 09/09/23 09/09/23 09/09/23 12:15 12:28 16:15 POC Glucose POC Glucose Comment Magnesium Troponin I High Sens 20.4 H TSH 3rd Generation 5.51 H SARS-CoV-2 Rap RNA(RT-PCR) Negative 09/09/23 09/09/23 09/09/23 18:08 19:04 20:42 POC Glucose 243 158 POC Glucose Comment Glu2: cleaned meter Magnesium Troponin I High Sens 20.0 TSH 3rd Generation SARS-CoV-2 Rap RNA(RT-PCR) 09/09/23 09/10/23 09/10/23 22:54 06:24 06:34 POC Glucose 164 POC Glucose Comment Glu2: cleaned meter Magnesium 1.4 L Troponin I High Sens 22.5 H TSH 3rd Generation SARS-CoV-2 Rap RNA(RT-PCR) A&P - Cardiology (1) Acute systolic (congestive) heart failure: Code(s): I50.21 - Acute systolic (congestive) heart failure (2) Hypertension: Code(s): I10 - Essential (primary) hypertension Plan Assessment 1. Acute systolic heart failure I suspect due to aortic valve disease 2. Echocardiogram suggestive of severe aortic stenosis 3. Sick sinus syndrome status post permanent pacemaker implantation 4. Chronic atrial fibrillation 5. Long-term anticoagulation 6. Pulmonary hypertension 7. History of colon cancer status postresection with no recurrence 8. History of hypertension Plan 1. Continue diuresis with monitoring renal function 2. Hold anticoagulation anticipating cardiac cath on Wednesday 3. I discussed with patient treatment option at great length. The patient willneed evaluation for TAVR. Will arrange for SEBASTIÁN/heart cath on Wednesday 4 . D/C Entresto due to sever Documented By: Joby Pinedo MD 09/10/23 6724 Signed By: <Electronically signed by MD Joby Pinedo> 09/10/23 1407 [facility] Work Phone: [phone]) 912-948806-14-2024 Progress note Author Astrid Osman [facility] September 10, 2023 1:18pm Note Date/Time September 10, 2023 1:19 pm [facility] [address] [place] [address] Hospitalist Progress Note Signed Patient: Shahid Sanchez MR#: [id number] : 1940 Acct:[id number] Age/Sex: 82 / M Adm Date: 4 Loc: Room: [address] [place] [address] Type: ADM IN Attending Dr: Astrid Osman DO Copies to: ~ Date of Service: 09/10/2023 Subjective Subjective Narrative: Dyspnea is improving. Lower extremity edema is improving but continues to be significant. No chest pain or chest illness. Exam Physical Exam Vital Signs: Temp Pulse Resp BP Pulse Ox O2 Del Method O2 Flow Rate 97.6 F 68 18 130/69 97 Room Air 6 09/10/23 12:15 09/10/23 12:15 09/10/23 12:15 09/10/23 12:15 09/10/23 12:15 09/10/23 12:15 09/10/23 08:43 Narrative: Generally: No acute distress, lying in hospital bed HEENT head atraumatic no cephalic, neck supple Heart regular rate and rhythm. Systolic ejection murmur heard Lungs diminished bilaterally Abdomen soft nontender nondistended Neurologically intact throughout Extremities 3+ pitting edema bilaterally, pulses intact Skin no rash Psych cooperative Objective Lab Results 09/09/23 12:15 09/09/23 12:15 Microbiology Results Microbiology 09/09/23 12:28 Nasopharyngeal SARS-CoV-2, Influenza & RSV (PCR) - Final Meds Allergies and Active Meds Allergies No Known Allergies Allergy (Verified 09/09/23 11:58) Active Meds: Active Medications Generic Name Dose Route Start Last Admin Trade Name Freq PRN Reason Stop Dose Admin Apixaban 5 mg 09/09/23 21:00 09/10/23 08:33 Apixaban 5 Mg Tablet PO 09/08/24 20:59 5 mg BID APPLE Administration Atorvastatin Calcium 20 mg 09/10/23 09:00 09/10/23 08:33 Atorvastatin 20 Mg Tablet PO 09/09/24 08:59 20 mg DAILY APPLE Administration Dextrose 0 gm 09/09/23 14:39 Dextrose 50% In Water 25 Gm/50 Ml Syringe IV-PUSH 09/08/24 14:38 PRN PRN Hypoglycemia Dutasteride 0.5 mg 09/09/23 21:00 09/09/23 21:09 Dutasteride 0.5 Mg Capsule PO 09/08/24 20:59 0.5 mg QPM APPLE Administration Folic Acid 1 mg 09/10/23 09:00 09/10/23 08:33 Folic Acid 1 Mg Tablet PO 09/09/24 08:59 1 mg DAILY APPLE Administration Furosemide 60 mg 09/10/23 09:00 09/10/23 08:28 Furosemide 20 Mg/2 Ml Vial IV-PUSH 09/09/24 08:59 60 mg BID@0800,1600 APPLE Administration Glucose 0 gm 09/09/23 14:39 Dextrose 40% Gel 15 Gm Tube PO 09/08/24 14:38 PRN PRN Hypoglycemia Insulin Aspart 0 units 09/09/23 17:00 09/10/23 12:09 Insulin Aspart 300 Units/3 Ml Insuln.Pen SUBCUT 09/08/24 16:59 1 units TID.WM.HS APPLE Administration Protocol Levothyroxine Sodium 50 mcg 09/10/23 06:30 09/10/23 07:21 Levothyroxine 50 Mcg Tablet PO 09/09/24 06:29 Not Given MoTuWeThFrSa@0630 [facility] Levothyroxine Sodium 100 mcg 09/12/23 06:30 Levothyroxine 50 Mcg Tablet PO 09/11/24 06:29 Adams@0630 [facility] Metoprolol Tartrate 25 mg 09/10/23 09:00 09/10/23 08:33 Metoprolol Tartrate 25 Mg Tablet PO 09/09/24 08:59 25 mg DAILY APPLE Administration Montelukast Sodium 10 mg 09/10/23 09:00 09/10/23 08:34 Montelukast 10 Mg Tablet PO 09/09/24 08:59 10 mg DAILY APPLE Administration Sacubitril/Valsartan 1 tab 09/09/23 21:00 09/10/23 08:34 Sacubitril/Valsartan 24-26mg 1 Tab Tablet PO 09/08/24 20:59 1 tab BID APPLE Administration Sodium Chloride 0 ml 09/09/23 11:56 09/10/23 08:28 Sodium Chloride 0.9 % 10 Ml Syringe IV-PUSH 09/08/24 11:55 10 ml PRN PRN Administration Flush Spironolactone 25 mg 09/09/23 16:35 09/10/23 08:33 Spironolactone 25 Mg Tablet PO 09/08/24 16:34 25 mg DAILY APPLE Administration Tamsulosin HCl 0.4 mg 09/10/23 09:00 09/10/23 08:33 Tamsulosin 0.4 Mg Cap.Er.24h PO 09/09/24 08:59 0.4 mg DAILY APPLE Administration Vitamin D 25 mcg 09/10/23 09:00 09/10/23 08:34 Cholecalciferol 25 Mcg (1,000 Units) Tablet PO 09/09/24 08:59 25 mcg DAILY APPLE Administration A&P - Hospitalist Assessment/Plan (1) Acute exacerbation of CHF (congestive heart failure): (2) A-fib: (3) Rheumatoid arthritis: (4) Hypercholesteremia: (5) Hypertension: (6) Hypothyroidism: Plan Admit to medical floor with monitor and storage bin tender Resume IV Lasix diuresis as per lodging facilities attendant. Monitor intake and output, daily weights, low-salt diet Obtain an echocardiogram Cardiology consult tomorrow NO Check TSH Trend cardiac enzymes Home medication will be ordered as appropriate once reconciled by RN/pharmacist Sliding-scale insulin, hypoglycemia protocol, DM diet Discussed plan of care with patient Full code DVT prophylaxis-already on Eliquis Documented By: Astrid Osman DO 09/10/23 1317 Signed By: <Electronically signed by Astrid Osman DO> 09/10/23 1318 [facility] Work Phone: [phone]) 459-520106-13-2024 Consult note Author Arnulfo Carter [facility] September 09, 2023 4:38pm Note Date/Time September 09, 2023 4:38 pm [facility] [address] [place] [address] Cardiology Consult Note Signed Patient: Shahid Sanchez MR#: [id number] : 1940 Acct:[id number] Age/Sex: 82 / M Adm Date: 4 Loc: Room: [address] [place] [address] Type: ADM IN Attending Dr: Astrid Osman DO Copies to: DO Arnulfo Alvarez Jr, MD Yazid Hussein, DO~ Cardiology HPI History of Present Illness Consult Date: 09/09/23 Reason for Consult: Acute congestive heart failure HPI: Mr. Sanchez is a 82 year old maleSeen for the above He is an individual historically with chronic atrial fibrillation, normal left ventricular systolic function and no previous history of heart failure. He had not been on any diuretics or other heart failure medications. His care predominantly revolved around management of hypertension and atrial fibrillationand bradycardia arrhythmia, recently, with the implantation of a single-chamber pacemaker (because of chronic atrial fibrillation). He describes a 2 to 3-week history of worsening shortness of breath orthopnea PND and leg edema. No recent change in diet or medications. No syncope near syncope palpitation no anginal chest pain. I cannot elicit from him any other issues such as a recent viral illness cold cough or sputum production. Symptoms are predominantly dyspnea and edema. Review of Systems Review of Systems All other systems reviewed & are negative unless noted below or in HPI Constitutional Constitutional: Reports system reviewed and no additional complaints, except as documented Eyes Eyes: Reports system reviewed and no additional complaints, except as documented ENT Ears, Nose, Mouth, and Throat: Reports system reviewed and no additional complaints, except as documented Cardiovascular Cardiovascular: Reports as per HPI Respiratory Respiratory: Reports system reviewed and no additional complaints, except as documented Gastrointestinal Gastrointestinal: Reports system reviewed and no additional complaints, except as documented Genitourinary Genitourinary: Reports system reviewed and no additional complaints, except as documented Musculoskeletal Musculoskeletal: Reports system reviewed and no additional complaints, except asdocumented Integumentary/Breasts Skin/Breast: Reports system reviewed and no additional complaints, except as documented Neurologic Neurologic: Reports system reviewed and no additional complaints, except as documented Psychiatric Psychiatric: Reports system reviewed and no additional complaints, except as documented Endocrine Endocrine: Reports system reviewed and no additional complaints, except as documented Hematologic/Lymphatic Hematologic/Lymphatic: Reports system reviewed and no additional complaints, except as documented Allergic/Immunologic Allergic/Immunologic: Reports system reviewed and no additional complaints, except as documented [facility] Medical History (Updated 09/09/23 @ 16:37 by Arnulfo Carter MD) Skin cancer head, removed yearly Arthritis Hearing impaired hearing aids, doesnt always wear Arrhythmia Hypertension Hypercholesteremia CERVANTES (dyspnea on exertion) Chronic UTI Rheumatoid arthritis Hypothyroidism Diabetes mellitus, type 2 BPH (benign prostatic hyperplasia) Former smoker GUNNER (obstructive sleep apnea) does not use cpap History of colon cancer CHF (congestive heart failure) A-fib Surgical History History of phacoemulsification of cataract of both eyes with intraocular lens implantation History of partial surgical removal of colon History of cholecystectomy History of total bilateral knee replacement History of elbow surgery bilateral History of repair of rotator cuff bilateral History of carotid angioplasty Family History Father Diabetes Sister Cancer Sister Cancer Brother Heart failure Father Diabetes Mother Cancer Legacy FamHx Problem: Diagnosed with Cancer Malignant neoplasm of breast Sister Cancer Legacy FamHx Problem: Diagnosed with Cancer Sister Cancer Legacy FamHx Problem: Diagnosed with Cancer Social History Smoking Status: Former smoker Tobacco Type: cigarettes Substance Use Type: None Meds Medications and Allergies Allergies No Known Allergies Allergy (Verified 09/09/23 11:58) Home Medications apixaban 5 mg tablet (Eliquis) 5 mg PO BID 03/10/23 [History Confirmed 09/09/23] cholecalciferol (vitamin D3) 25 mcg (1,000 unit) chewable tablet (Vitamin D3) 25mcg PO DAILY 03/10/23 [History Confirmed 09/09/23] dutasteride 0.5 mg capsule 0.5 mg PO QPM 03/10/23 [History Confirmed 09/09/23] exenatide microspheres 2 mg/0.85 mL subcutaneous auto-injector (Bydureon BCise) 2 mg subcut QWEEK 03/10/23 [History Confirmed 09/09/23] folic acid 20 mg capsule 20 mg PO DAILY 03/10/23 [History Confirmed 09/09/23] infliximab 100 mg intravenous solution (Remicade) See Rx Instructions .Route .COMPLEX 03/10/23 [History Confirmed 09/09/23] levothyroxine 50 mcg tablet 50 mcg PO DAILY 03/10/23 [History Confirmed 09/09/23] metformin 850 mg tablet 850 mg PO DAILY 03/10/23 [History Confirmed 09/09/23] methenamine hippurate 1 gram tablet (Hiprex) 1 g PO BID 03/10/23 [History Confirmed 09/09/23] methotrexate sodium 2.5 mg tablet 15 mg PO QWEEK 03/10/23 [History Confirmed 09/09/23] montelukast 10 mg tablet (Singulair) 10 mg PO 4XW 03/10/23 [History Confirmed 09/09/23] rosuvastatin 10 mg tablet (Crestor) 10 mg PO 4XW 03/10/23 [History Confirmed 09/09/23] sacubitril 24 mg-valsartan 26 mg tablet (Entresto) 1 tab PO BID 03/10/23 [History Confirmed 09/09/23] tamsulosin 0.4 mg capsule 0.4 mg PO HS 03/10/23 [History Confirmed 09/09/23] furosemide 40 mg tablet 80 mg PO BID 09/09/23 [History Confirmed 09/09/23] metoprolol tartrate 25 mg tablet 25 mg PO DAILY 09/09/23 [History Confirmed 09/09/23] Exam Physical Exam Vital Signs: Temp Pulse Resp BP Pulse Ox O2 Del Method O2 Flow Rate 98.8 F 69 18 125/56 L 95 Nasal Cannula 3 09/09/23 11:56 09/09/23 15:30 09/09/23 15:30 09/09/23 15:30 09/09/23 15:30 09/09/23 15:30 09/09/23 15:30 HEENT Head: normal to inspection Ears: hearing grossly normal bilaterally Nose: external nose normal and nares normal Face and sinus: normal facial exam Mouth: oral mucosae normal and tongue normal Eyes Conjunctivae: conjunctivae normal Sclera: sclerae normal Neck Neck: normal visual inspection Carotids: normal carotid upstroke Lymphatic: no lymphadenopathy noted Chest Chest palpation & inspection: normal inspection of the chest Resp Effort & Inspection: normal respiratory effort Auscultation: clear to auscultation bilaterally Cardio Rate: regular rate Rhythm: regular rhythm Heart Sounds: S1 normal and S2 normal GI Inspection: normal to inspection Palpation: soft Skin General: no rashes or lesions noted Neuro General: patient alert, patient awake and patient oriented x3 Cognition: normal cognition Motor: muscle tone normal throughout Sensory Exam: no sensory deficits noted Results - Cardiology Labs 09/09/23 12:15 09/09/23 12:15 Lab results: Cardiac Enzymes 09/09/23 Range/Units 12:15 AST 21 (13-39) U/L Total Creatine Kinase 40 (30-223) U/L B-Natriuretic Peptide 517.0 H (5-100) pg/mL CBC 09/09/23 Range/Units 12:15 RBC 3.95 (3.90-5.60) X10E6/uL Hgb 12.6 L (13.0-17.0) g/dL Hct 36.7 L (38.8-50.0) % Plt Count 279 (150-450) x10E3/uL Neut # (Auto) 9.8 H (1.8-7.7) x10E3/uL Lymph # (Auto) 0.4 L (1.00-4.8) x10E3/uL [place] # (Auto) 0.6 (0.0-0.8) x10E3/uL Eos # (Auto) 0.1 (0.0-0.45) x10E3/uL Baso # (Auto) 0.1 (0.0-0.2) x10E3/uL Comprehensive Metabolic Panel 09/09/23 Range/Units 12:15 Sodium 138 (136-145) mmol/L Potassium 3.9 (3.5-5.1) mmol/L Chloride 102 (98-107) mmol/L Carbon Dioxide 24.3 (21.0-31.0) mmol/L BUN 27 H (7-25) mg/dL Creatinine 1.21 (0.70-1.30) mg/dL Glucose 239 H (70-100) mg/dL Calcium 8.8 (8.6-10.3) mg/dL AST 21 (13-39) U/L ALT 16 (7-52) U/L Alkaline Phosphatase 55 (34-104) U/L Total Protein 6.3 L (6.4-8.9) gm/dL Albumin 3.5 (3.5-5.7) gm/dL Intake and Output 09/09/23 09/09/23 09/09/23 07:59 15:59 23:59 Output Total 200 / 200 Balance -200 / -200 Output: Urine 200 / 200 Other: Weight 99.337 kg Patient Weight 09/09/23 23:59 Weight 99.337 kg A&P - Cardiology (1) Acute exacerbation of CHF (congestive heart failure): Assessment/Problem Details: Patient's manifestations are those of acute CHF. Unclear whether it systolic ordiastolic in nature. I recommended an echocardiogram in this regard. I agree with the furosemide implemented by the admitting service. I would also add spironolactone. Pending results of echocardiogram will make further adjustments to medical therapy. Qualifiers: Heart failure type: unspecified Qualified Code(s): I50.9 - Heart failure, unspecified Code(s): I50.9 - Heart failure, unspecified (2) A-fib: Assessment/Problem Details: Chronic and permanent. Treated with 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 therapy. 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 This was uneventful. Code(s): I44.30 - Unspecified atrioventricular block Plan Diuresis with a combination of spironolactone and furosemide. Echocardiogram. Pending results, further adjustments to medical therapy Documented By: Arnulfo Carter MD [id number] Signed By: <Electronically signed by MD Arnulfo Carter> 09/09/23 4498 [facility] Work Phone: [phone]) 271-638606-13-2024 History and physical note Author Astrid Osman [facility] September 09, 2023 2:39pm Note Date/Time September 09, 2023 2:39 pm [facility] [address] [place] [address] Hospitalist H&P Signed Patient: Shahid Sanchez MR#: [id number] : 1940 Acct:[id number] Age/Sex: 82 / M Adm Date: 4 Loc: ER Room: Type: [facility] ER Attending Dr: Copies to: DO Manny Alvarez Jr, MD Yazid Hussein, DO~ HPI DATE OF EXAMINATION: 09/09/23 CHIEF COMPLAINT: Dyspnea on exertion HISTORY OF PRESENT ILLNESS: 82-year-old with a past medical history of hypertension, hyperlipidemia, A-fib, 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 cardiology group, hypothyroidism, rheumatoid arthritis on methotrexate who presented to the hospital with dyspnea. He has been having worsening dyspnea over the last 3 to 4 weeks. His primary physician started him on nasal cannula 3 L/min. His oxygen saturation has been in the 80s and he has not been able to keep it up. Upon arrival to the hospital here in the ER, his oxygen saturation was in the 80s on room air and required 6 L to get above 90% or so. Patient denies any fever or chills. He has cough productive of frothy sputum. No chest pain or chest heaviness. No abdominal pain or nausea or vomiting. He has bilateral lower extremity edema over the last several days. Review of Systems Review of Systems All other systems reviewed & are negative unless noted below or in HPI [facility] Medical History (Updated 09/09/23 @ 14:36 by Astrid Osman DO) Skin cancer head, removed yearly Arthritis Hearing impaired hearing aids, doesnt always wear Arrhythmia Hypertension Hypercholesteremia CERVANTES (dyspnea on exertion) Chronic UTI Rheumatoid arthritis Hypothyroidism Diabetes mellitus, type 2 BPH (benign prostatic hyperplasia) Former smoker GUNNER (obstructive sleep apnea) does not use cpap History of colon cancer CHF (congestive heart failure) A-fib Surgical History History of phacoemulsification of cataract of both eyes with intraocular lens implantation History of partial surgical removal of colon History of cholecystectomy History of total bilateral knee replacement History of elbow surgery bilateral History of repair of rotator cuff bilateral History of carotid angioplasty Family History Father Diabetes Sister Cancer Sister Cancer Brother Heart failure Father Diabetes Mother Cancer Legacy FamHx Problem: Diagnosed with Cancer Malignant neoplasm of breast Sister Cancer Legacy FamHx Problem: Diagnosed with Cancer Sister Cancer Legacy FamHx Problem: Diagnosed with Cancer Social History Smoking Status: Never smoker Tobacco Type: cigarettes Substance Use Type: None Meds Medications and Allergies Allergies No Known Allergies Allergy (Verified 09/09/23 11:58) Home Medications apixaban 5 mg tablet (Eliquis) 5 mg PO BID 03/10/23 [History Confirmed 09/09/23] cholecalciferol (vitamin D3) 25 mcg (1,000 unit) chewable tablet (Vitamin D3) 25mcg PO DAILY 03/10/23 [History Confirmed 09/09/23] dutasteride 0.5 mg capsule 0.56 mg PO QPM 03/10/23 [History Confirmed 09/09/23] exenatide microspheres 2 mg/0.85 mL subcutaneous auto-injector ([employer] BCise) 2 mg subcut QWEEK 03/10/23 [History Confirmed 09/09/23] folic acid 20 mg capsule 20 mg PO DAILY 03/10/23 [History Confirmed 09/09/23] infliximab 100 mg intravenous solution (Remicade) See Rx Instructions .Route .COMPLEX 03/10/23 [History Confirmed 09/09/23] levothyroxine 50 mcg tablet 50 mcg PO DAILY 03/10/23 [History Confirmed 09/09/23] metformin 850 mg tablet 850 mg PO DAILY 03/10/23 [History Confirmed 09/09/23] methenamine hippurate 1 gram tablet (Hiprex) 1 g PO BID 03/10/23 [History Confirmed 09/09/23] methotrexate sodium 2.5 mg tablet 15 mg PO QWEEK 12/13/23 [History Confirmed 09/09/23] montelukast 10 mg tablet (Singulair) 10 mg PO DAILY 03/10/23 [History Confirmed 09/09/23] rosuvastatin 10 mg tablet (Crestor) 10 mg PO DAILY 03/10/23 [History Confirmed 09/09/23] sacubitril 24 mg-valsartan 26 mg tablet (Entresto) 1 tab PO BID 03/10/23 [History Confirmed 09/09/23] tamsulosin 0.4 mg capsule 0.4 mg PO DAILY 03/10/23 [History Confirmed 09/09/23] furosemide 40 mg tablet 40 mg PO DAILY 09/09/23 [History Confirmed 09/09/23] metoprolol tartrate 25 mg tablet 25 mg PO DAILY 09/09/23 [History Confirmed 09/09/23] Exam Physical Exam Vital Signs: Temp Pulse Resp BP Pulse Ox O2 Del Method O2 Flow Rate 98.8 F 66 18 117/55 L 95 Nasal Cannula 4 09/09/23 11:56 09/09/23 14:10 09/09/23 13:45 09/09/23 13:45 09/09/23 13:45 09/09/23 13:45 09/09/23 13:45 Narrative: Generally: No acute distress, lying in hospital bed HEENT head atraumatic no cephalic, neck supple Heart regular rate and rhythm. Systolic ejection murmur heard Lungs diminished bilaterally Abdomen soft nontender nondistended Neurologically intact throughout Extremities 3+ pitting edema bilaterally, pulses intact Skin no rash Psych cooperative Results - Hospitalist H&P Lab Results Labs: Laboratory Last Values Corrected WBC 11.0 X10E3/uL (4.1-10.5) H 09/09/23 12:15 Uncorrected WBC Count 11.0 x10E3/uL (4.1-10.5) H 09/09/23 12:15 RBC 3.95 X10E6/uL (3.90-5.60) 09/09/23 12:15 Hgb 12.6 g/dL (13.0-17.0) L 09/09/23 12:15 Hct 36.7 % (38.8-50.0) L 09/09/23 12:15 MCV 92.8 fl (83.5-101) 09/09/23 12:15 MCH 31.9 pg (27.5-35.2) 09/09/23 12:15 MCHC 34.3 g/dL (32.5-35.6) 09/09/23 12:15 RDW 18.4 % (12.0-14.8) H 09/09/23 12:15 Plt Count 279 x10E3/uL (150-450) 09/09/23 12:15 MPV 7.8 fl (6.6-10.1) 09/09/23 12:15 Neut % (Auto) 89.3 % (.) 09/09/23 12:15 Lymph % (Auto) 4.0 % (.) 09/09/23 12:15 [place] % (Auto) 5.7 % (.) 09/09/23 12:15 Eos % (Auto) 0.5 % (.) 09/09/23 12:15 Baso % (Auto) 0.5 % (.) 09/09/23 12:15 Nucleat RBC Rel Count 0.0 /100 WBC (0-0.5) 09/09/23 12:15 Neut # (Auto) 9.8 x10E3/uL (1.8-7.7) H 09/09/23 12:15 Lymph # (Auto) 0.4 x10E3/uL (1.00-4.8) L 09/09/23 12:15 [place] # (Auto) 0.6 x10E3/uL (0.0-0.8) 09/09/23 12:15 Eos # (Auto) 0.1 x10E3/uL (0.0-0.45) 09/09/23 12:15 Baso # (Auto) 0.1 x10E3/uL (0.0-0.2) 09/09/23 12:15 Monocyte Dist Width 20.88 % (0.00-20.00) H 09/09/23 12:15 PHA Creatinine Clear 57.51 09/09/23 12:15 Sodium 138 mmol/L (136-145) 09/09/23 12:15 Potassium 3.9 mmol/L (3.5-5.1) 09/09/23 12:15 Chloride 102 mmol/L (98-107) 09/09/23 12:15 Carbon Dioxide 24.3 mmol/L (21.0-31.0) 09/09/23 12:15 Anion Gap 15.6 mEq/L (6.0-15.0) H 09/09/23 12:15 BUN 27 mg/dL (7-25) H 09/09/23 12:15 Creatinine 1.21 mg/dL (0.70-1.30) 09/09/23 12:15 Est GFR (CKD-EPI) > 60.0 mL/Min 09/09/23 12:15 Glucose 239 mg/dL (70-100) H 09/09/23 12:15 Calcium 8.8 mg/dL (8.6-10.3) 09/09/23 12:15 Total Bilirubin 2.2 mg/dl (0.3-1.0) H 09/09/23 12:15 AST 21 U/L (13-39) 09/09/23 12:15 ALT 16 U/L (7-52) 09/09/23 12:15 Alkaline Phosphatase 55 U/L (34-104) 09/09/23 12:15 Total Creatine Kinase 40 U/L (30-223) 09/09/23 12:15 Troponin I High Sens 15.9 pg/mL (0.0-20.0) 09/09/23 12:15 B-Natriuretic Peptide 517.0 pg/mL (5-100) H 09/09/23 12:15 Total Protein 6.3 gm/dL (6.4-8.9) L 09/09/23 12:15 Albumin 3.5 gm/dL (3.5-5.7) 09/09/23 12:15 Globulin 2.8 gm/dL 09/09/23 12:15 Albumin/Globulin Ratio 1.3 09/09/23 12:15 SARS-CoV-2 Rap RNA(RT-PCR) Negative (Negative) 09/09/23 12:28 Microbiology Results Micro: Microbiology - Results from entire visit 09/09/23 12:28 Nasopharyngeal SARS-CoV-2, Influenza & RSV (PCR) - Final Assessment & Plan Assessment/Plan (1) Acute exacerbation of CHF (congestive heart failure): (2) A-fib: (3) Rheumatoid arthritis: (4) Hypercholesteremia: (5) Hypertension: (6) Hypothyroidism: Plan Admit to medical floor with monitor and storage bin tender Lasix 40 mg IV twice daily Monitor intake and output, daily weights, low-salt diet Obtain an echocardiogram Cardiology consult tomorrow [facility] Check TSH Trend cardiac enzymes Home medication will be ordered as appropriate once reconciled by RN/pharmacist Sliding-scale insulin, hypoglycemia protocol, DM diet Discussed plan of care with patient Full code DVT prophylaxis-already on Eliquis IP vs OBS Justification Based on differential dx, clinical care plan, and risk of adverse events, if untreated, in my clinical judgement this patient requires an acute care setting as: INPATIENT because of an expectation of an over 2 midnight stay. Estimated length of stay (# of days): 3 Documented By: Astrid Osman DO 09/09/23 1432 Signed By: <Electronically signed by Astrid Osman DO> 09/09/23 1439 [facility] Work Phone: 1(748) 462-420606-13-2024 History and physical note Author Astrid Osman [facility] September 09, 2023 2:39pm Note Date/Time September 09, 2023 2:39 pm [facility] [address] [place] [address] Hospitalist H&P Signed Patient: Shahid Sanchez MR#: [id number] : 1940 Acct:[id number] Age/Sex: 82 / M Adm Date: 4 Loc: ER Room: Type: [facility] ER Attending Dr: Copies to: DO Manny Alvarez Jr, MD Yazid Hussein, DO~ HPI DATE OF EXAMINATION: 09/09/23 CHIEF COMPLAINT: Dyspnea on exertion HISTORY OF PRESENT ILLNESS: 82-year-old with a past medical history of hypertension, hyperlipidemia, A-fib, 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 cardiology group, hypothyroidism, rheumatoid arthritis on methotrexate who presented to the hospital with dyspnea. He has been having worsening dyspnea over the last 3 to 4 weeks. His primary physician started him on nasal cannula 3 L/min. His oxygen saturation has been in the 80s and he has not been able to keep it up. Upon arrival to the hospital here in the ER, his oxygen saturation was in the 80s on room air and required 6 L to get above 90% or so. Patient denies any fever or chills. He has cough productive of frothy sputum. No chest pain or chest heaviness. No abdominal pain or nausea or vomiting. He has bilateral lower extremity edema over the last several days. Review of Systems Review of Systems All other systems reviewed & are negative unless noted below or in HPI [facility] Medical History (Updated 09/09/23 @ 14:36 by Astrid Osman DO) Skin cancer head, removed yearly Arthritis Hearing impaired hearing aids, doesnt always wear Arrhythmia Hypertension Hypercholesteremia CERVANTES (dyspnea on exertion) Chronic UTI Rheumatoid arthritis Hypothyroidism Diabetes mellitus, type 2 BPH (benign prostatic hyperplasia) Former smoker GUNNER (obstructive sleep apnea) does not use cpap History of colon cancer CHF (congestive heart failure) A-fib Surgical History History of phacoemulsification of cataract of both eyes with intraocular lens implantation History of partial surgical removal of colon History of cholecystectomy History of total bilateral knee replacement History of elbow surgery bilateral History of repair of rotator cuff bilateral History of carotid angioplasty Family History Father Diabetes Sister Cancer Sister Cancer Brother Heart failure Father Diabetes Mother Cancer Legacy FamHx Problem: Diagnosed with Cancer Malignant neoplasm of breast Sister Cancer Legacy FamHx Problem: Diagnosed with Cancer Sister Cancer Legacy FamHx Problem: Diagnosed with Cancer Social History Smoking Status: Never smoker Tobacco Type: cigarettes Substance Use Type: None Meds Medications and Allergies Allergies No Known Allergies Allergy (Verified 09/09/23 11:58) Home Medications apixaban 5 mg tablet (Eliquis) 5 mg PO BID 03/10/23 [History Confirmed 09/09/23] cholecalciferol (vitamin D3) 25 mcg (1,000 unit) chewable tablet (Vitamin D3) 25mcg PO DAILY 03/10/23 [History Confirmed 09/09/23] dutasteride 0.5 mg capsule 0.56 mg PO QPM 03/10/23 [History Confirmed 09/09/23] exenatide microspheres 2 mg/0.85 mL subcutaneous auto-injector (ByLogicLoopse) 2 mg subcut QWEEK 03/10/23 [History Confirmed 09/09/23] folic acid 20 mg capsule 20 mg PO DAILY 03/10/23 [History Confirmed 09/09/23] infliximab 100 mg intravenous solution (Remicade) See Rx Instructions .Route .COMPLEX 03/10/23 [History Confirmed 09/09/23] levothyroxine 50 mcg tablet 50 mcg PO DAILY 03/10/23 [History Confirmed 09/09/23] metformin 850 mg tablet 850 mg PO DAILY 03/10/23 [History Confirmed 09/09/23] methenamine hippurate 1 gram tablet (Hiprex) 1 g PO BID 03/10/23 [History Confirmed 09/09/23] methotrexate sodium 2.5 mg tablet 15 mg PO QWEEK 03/10/23 [History Confirmed 09/09/23] montelukast 10 mg tablet (Singulair) 10 mg PO DAILY 03/10/23 [History Confirmed 09/09/23] rosuvastatin 10 mg tablet (Crestor) 10 mg PO DAILY 03/10/23 [History Confirmed 09/09/23] sacubitril 24 mg-valsartan 26 mg tablet (Entresto) 1 tab PO BID 03/10/23 [History Confirmed 09/09/23] tamsulosin 0.4 mg capsule 0.4 mg PO DAILY 03/10/23 [History Confirmed 09/09/23] furosemide 40 mg tablet 40 mg PO DAILY 09/09/23 [History Confirmed 09/09/23] metoprolol tartrate 25 mg tablet 25 mg PO DAILY 09/09/23 [History Confirmed 09/09/23] Exam Physical Exam Vital Signs: Temp Pulse Resp BP Pulse Ox O2 Del Method O2 Flow Rate 98.8 F 66 18 117/55 L 95 Nasal Cannula 4 09/09/23 11:56 09/09/23 14:10 09/09/23 13:45 09/09/23 13:45 09/09/23 13:45 09/09/23 13:45 09/09/23 13:45 Narrative: Generally: No acute distress, lying in hospital bed HEENT head atraumatic no cephalic, neck supple Heart regular rate and rhythm. Systolic ejection murmur heard Lungs diminished bilaterally Abdomen soft nontender nondistended Neurologically intact throughout Extremities 3+ pitting edema bilaterally, pulses intact Skin no rash Psych cooperative Results - Hospitalist H&P Lab Results Labs: Laboratory Last Values Corrected WBC 11.0 X10E3/uL (4.1-10.5) H 09/09/23 12:15 Uncorrected WBC Count 11.0 x10E3/uL (4.1-10.5) H 09/09/23 12:15 RBC 3.95 X10E6/uL (3.90-5.60) 09/09/23 12:15 Hgb 12.6 g/dL (13.0-17.0) L 09/09/23 12:15 Hct 36.7 % (38.8-50.0) L 09/09/23 12:15 MCV 92.8 fl (83.5-101) 09/09/23 12:15 MCH 31.9 pg (27.5-35.2) 09/09/23 12:15 MCHC 34.3 g/dL (32.5-35.6) 09/09/23 12:15 RDW 18.4 % (12.0-14.8) H 09/09/23 12:15 Plt Count 279 x10E3/uL (150-450) 09/09/23 12:15 MPV 7.8 fl (6.6-10.1) 09/09/23 12:15 Neut % (Auto) 89.3 % (.) 09/09/23 12:15 Lymph % (Auto) 4.0 % (.) 09/09/23 12:15 [place] % (Auto) 5.7 % (.) 09/09/23 12:15 Eos % (Auto) 0.5 % (.) 09/09/23 12:15 Baso % (Auto) 0.5 % (.) 09/09/23 12:15 Nucleat RBC Rel Count 0.0 /100 WBC (0-0.5) 09/09/23 12:15 Neut # (Auto) 9.8 x10E3/uL (1.8-7.7) H 09/09/23 12:15 Lymph # (Auto) 0.4 x10E3/uL (1.00-4.8) L 09/09/23 12:15 [place] # (Auto) 0.6 x10E3/uL (0.0-0.8) 09/09/23 12:15 Eos # (Auto) 0.1 x10E3/uL (0.0-0.45) 09/09/23 12:15 Baso # (Auto) 0.1 x10E3/uL (0.0-0.2) 09/09/23 12:15 Monocyte Dist Width 20.88 % (0.00-20.00) H 09/09/23 12:15 PHA Creatinine Clear 57.51 09/09/23 12:15 Sodium 138 mmol/L (136-145) 09/09/23 12:15 Potassium 3.9 mmol/L (3.5-5.1) 09/09/23 12:15 Chloride 102 mmol/L (98-107) 09/09/23 12:15 Carbon Dioxide 24.3 mmol/L (21.0-31.0) 09/09/23 12:15 Anion Gap 15.6 mEq/L (6.0-15.0) H 09/09/23 12:15 BUN 27 mg/dL (7-25) H 09/09/23 12:15 Creatinine 1.21 mg/dL (0.70-1.30) 09/09/23 12:15 Est GFR (CKD-EPI) > 60.0 mL/Min 09/09/23 12:15 Glucose 239 mg/dL (70-100) H 09/09/23 12:15 Calcium 8.8 mg/dL (8.6-10.3) 09/09/23 12:15 Total Bilirubin 2.2 mg/dl (0.3-1.0) H 09/09/23 12:15 AST 21 U/L (13-39) 09/09/23 12:15 ALT 16 U/L (7-52) 09/09/23 12:15 Alkaline Phosphatase 55 U/L (34-104) 09/09/23 12:15 Total Creatine Kinase 40 U/L (30-223) 09/09/23 12:15 Troponin I High Sens 15.9 pg/mL (0.0-20.0) 09/09/23 12:15 B-Natriuretic Peptide 517.0 pg/mL (5-100) H 09/09/23 12:15 Total Protein 6.3 gm/dL (6.4-8.9) L 09/09/23 12:15 Albumin 3.5 gm/dL (3.5-5.7) 09/09/23 12:15 Globulin 2.8 gm/dL 09/09/23 12:15 Albumin/Globulin Ratio 1.3 09/09/23 12:15 SARS-CoV-2 Rap RNA(RT-PCR) Negative (Negative) 09/09/23 12:28 Microbiology Results Micro: Microbiology - Results from entire visit 09/09/23 12:28 Nasopharyngeal SARS-CoV-2, Influenza & RSV (PCR) - Final Assessment & Plan Assessment/Plan (1) Acute exacerbation of CHF (congestive heart failure): (2) A-fib: (3) Rheumatoid arthritis: (4) Hypercholesteremia: (5) Hypertension: (6) Hypothyroidism: Plan Admit to medical floor with monitor and storage bin tender Lasix 40 mg IV twice daily Monitor intake and output, daily weights, low-salt diet Obtain an echocardiogram Cardiology consult tomorrow [facility] Check TSH Trend cardiac enzymes Home medication will be ordered as appropriate once reconciled by RN/pharmacist Sliding-scale insulin, hypoglycemia protocol, DM diet Discussed plan of care with patient Full code DVT prophylaxis-already on Eliquis IP vs OBS Justification Based on differential dx, clinical care plan, and risk of adverse events, if untreated, in my clinical judgement this patient requires an acute care setting as: INPATIENT because of an expectation of an over 2 midnight stay. Estimated length of stay (# of days): 3 Documented By: Astrid Osman DO 09/09/23 1432 Signed By: <Electronically signed by Astrid Osman DO> 09/09/23 1439 [facility] Work Phone: [phone]) 152-865603-27-2024 History of Present illness Narrative* Joby Pinedo MD - 06/23/2023 1:00 PM EDT Subjective Shahid Sanchez is a 82 y.o. male Chief Complaint Follow-up HPI Patient is here for follow-up and management for chronic permanent atrial fibrillation, AV rachel dysfunction, long-term anticoagulation, shortness of breath and hypertension. He recently underwent evaluation. His outpatient Holter monitor showed severe bradycardia with heart rate in the 40s. Subsequently referred for an echocardiogram which showed normal LV systolic function and severe range pulmonary hypertension subsequently underwent single-lead pacemaker implantation by Dr. Carter. Since then he report improvement of his functional status. He continues to have lower extremity edema he denies chest pain, lightheadedness, dizziness or syncope. Assessment 1. Chronic atrial fibrillation with slow suggestive of AV node dysfunction. Status post recent permanent pacemaker implantation with improvement of his energy level and functional status 2. Long-term anticoagulation due to chronic atrial fibrillation 3. No previous history of coronary artery disease. No recent stress test available 4. Patient carries a diagnosis of heart failure the last echo appears primarily right-sided due to pulmonary hypertension recent echo showed normal LV systolic function 5. Shortness of breath, fatigue, tiredness and palpitation due to atrial fibrillation with slow ventricular rate slightly improved since pacemaker 6. Hypertension 7. Diabetes mellitus 8. Rheumatoid arthritis 9. History of colon cancer status postresection with no recurrence 10. Pulmonary hypertension etiology unclear I am hopeful that it will improve after improvement of his heart rate and adding low-dose diuretics. Will continue to monitor Plan 1. I advised the patient to start Lasix 40 mg once daily and to have basic metabolic profile in 1 week 2. The patient underwent recently successful implantation of pacemaker. He is scheduled to have a device check in the near future 3. Will arrange for Lexiscan myocardial fusion study in view of his symptoms shortness of breath and risk factors 4 I advised the patient if he had any lightheadedness, dizziness or syncope to go back immediately to the hospital 5. I will see him back in 3 to 4 months and follow-up plan on repeating his echocardiogram when achieving euvolemic state Review of Systems All other systems reviewed and are negative. Vitals: 06/23/23 1314 BP: 138/78 BP Location: Left arm Patient Position: Sitting Pulse: 72 Weight: 105 kg (231 lb 4.8 oz) Height: 1.803 m (5' 11 ) Objective Physical Exam Constitutional: Appearance: Normal appearance. HENT: Nose: Nose normal. Neck: Vascular: No carotid bruit. Cardiovascular: Rate and Rhythm: Normal rate. Rhythm regularly irregular. Pulses: Normal pulses. Heart sounds: Normal heart sounds. Pulmonary: Effort: Pulmonary effort is normal. Abdominal: General: Bowel sounds are normal. Palpations: Abdomen is soft. Musculoskeletal: General: Normal range of motion. Cervical back: Normal range of motion. Right lower le+ Edema present. Left lower le+ Edema present. Feet: Comments: One plus betsey edema Skin: General: Skin is warm and dry. Neurological: General: No focal deficit present. Mental Status: He is alert. Psychiatric: Mood and Affect: Mood normal. Behavior: Behavior normal. Thought Content: Thought content normal. Judgment: Judgment normal. Allergies Patient has no known allergies. Current Medications Current Outpatient Medications: Bydureon BCise 2 mg/0.85 mL auto-injector, inject 2 milligrams subcutaneously every week in ABDOMEN,THIGH,OR... (REFER TO PRESCRIPTION NOTES)., Disp: , Rfl: dutasteride (Avodart) 0.5 mg capsule, Take 1 capsule (0.5 mg) by mouth once daily., Disp: , Rfl: Eliquis 5 mg tablet, Take 1 tablet (5 mg) by mouth 2 times a day., Disp: , Rfl: Entresto 24-26 mg tablet, Take 1 tablet by mouth 2 times a day., Disp: , Rfl: finerenone (Kerendia) 20 mg tablet, Take 1 tablet (20 mg) by mouth once daily., Disp: , Rfl: inFLIXimab (Remicade) 100 mg injection, Infuse 600 mg into a venous catheter once daily. Every 8 weeks, Disp: , Rfl: levothyroxine (Synthroid, Levoxyl) 50 mcg tablet, Take 1 tablet (50 mcg) by mouth once daily. 1 tabwed-wed and Wednesday take 2 tabs, Disp: , Rfl: metFORMIN (Glucophage) 850 mg tablet, Take 50 mg by mouth once daily. take with evening meal, Disp:, Rfl: methotrexate (Trexall) 2.5 mg tablet, take 6 tablets by mouth every week, Disp: , Rfl: montelukast (Singulair) 10 mg tablet, Take 1 tablet (10 mg) by mouth once daily., Disp: , Rfl: rosuvastatin (Crestor) 10 mg tablet, Take 1 tablet (10 mg) by mouth once daily. Just 4 days a week,Disp: , Rfl: tamsulosin (Flomax) 0.4 mg 24 hr capsule, Take 1 capsule (0.4 mg) by mouth once daily at bedtime., Disp: , Rfl: furosemide (Lasix) 40 mg tablet, Take 1 tablet (40 mg) by mouth once daily., Disp: 30 tablet, Rfl: 11 Assessment/Plan 1. Persistent atrial fibrillation (CMS/HCC) Follow Up In Cardiology 2. Bradycardia Follow Up In Cardiology 3. Cardiac pacemaker Follow Up In Cardiology 4. Abnormal ECG 5. Primary hypertension 6. Hypercholesteremia 7. USP current use of 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 therapy 8. Shortness of breath Nuclear Stress Test furosemide (Lasix) 40 mg tablet Basic Metabolic Panel Basic Metabolic Panel Scribe Attestation By signing my name below, IVivian LPN, Scribe attest that this documentation has been prepared under the direction and in the presence of MD Mino. Provider Attestation - Scribe documentation All medical record entries made by the Scribe were at my direction and personally dictated by me. Ihave reviewed the chart and agree that the record accurately reflects my personal performance of the history, physical exam, discussion and plan. documented [facility] Work Phone: [phone] Instructions* Patient Instructions* Vivian Mack LPN - 06/23/2023 1:00 PM EDT Please bring all medicines, vitamins, and herbal supplements with you when you come to the office. Prescriptions will not be filled unless you are compliant with your follow up appointments or have a follow up appointment scheduled as per instruction of your physician. Refills should be requested at the time of your visit. Lexiscan stress Lasix 40 mg Follow up 3 months BMI was above normal measurement. Current weight: 105 kg (231 lb 4.8 oz) Weight change since last visit (-) denotes wt loss 5.3 lbs Weight loss needed to achieve BMI 25: 52.4 Lbs Weight loss needed to achieve BMI 30: 16.7 Lbs Provided instructions on dietary changes Provided instructions on exercise. documented in this encounterFire[facility] Work Phone: [phone] Progress note Author Arnulfo Carter [facility] March 13, 2023 10:08am Note Date/Time March 13, 2023 10:08am [facility] [address] [place] [address] Cardiology Progress Note Signed Patient: Shahid Sanchez MR#: [id number] : 1940 Acct:[id number] Age/Sex: 82 / M Adm Date: 3 Loc: Room: [address] [place] [address] Type: [facility] Attending Dr: Arnulfo Carter MD Copies to: ~ Date of Service: 03/13/2023 Subjective Principal diagnosis: High-grade atrioventricular rachel block Interval history: Patient underwent permanent pacemaker implantation yesterday and has had an uneventful postoperative course. Slept poorly. His operative site is dry and there is no bleeding or hematoma. He appears to be a suitable candidate for discharge. I reviewed his chest x-ray and it is unremarkable. He is pending a device check this morning. After a favorable device check he is otherwise suitable for discharge. A prescription for clindamycin has been sent to [facility] [place]. He has been instructed to initiate the prescription today. Exam Physical Exam Vital Signs: Temp Pulse Resp BP Pulse Ox O2 Del Method O2 Flow Rate 97.7 F 69 14 169/78 H 93 L Room Air 8 03/13/23 05:00 03/13/23 05:00 03/13/23 05:00 03/13/23 05:58 03/13/23 05:00 03/13/23 05:00 03/12/23 12:26 HEENT Head: normal to inspection Ears: hearing grossly normal bilaterally Nose: external nose normal and nares normal Face and sinus: normal facial exam Mouth: oral mucosae normal and tongue normal Eyes Conjunctivae: conjunctivae normal Sclera: sclerae normal Neck Neck: normal visual inspection Carotids: normal carotid upstroke Lymphatic: no lymphadenopathy noted Chest Chest palpation & inspection: normal inspection of the chest Resp Effort & Inspection: normal respiratory effort Auscultation: clear to auscultation bilaterally Cardio Rate: regular rate Rhythm: regular rhythm Heart Sounds: S1 normal and S2 normal GI Inspection: normal to inspection Palpation: soft Skin General: no rashes or lesions noted Neuro General: patient alert, patient awake and patient oriented x3 Cognition: normal cognition Motor: muscle tone normal throughout Sensory Exam: no sensory deficits noted Objective Labs 03/12/23 13:08 Labs: Laboratory Results - last 24 hr 03/12/23 03/12/23 08:55 13:08 Corrected WBC 4.6 Uncorrected WBC Count 4.6 RBC 3.57 L Hgb 11.7 L Hct 34.2 L MCV 95.8 MCH 32.7 MCHC 34.1 RDW 16.4 H Plt Count 179 MPV 9.1 Neut % (Auto) 67.5 Lymph % (Auto) 21.4 [place] % (Auto) 7.6 Eos % (Auto) 2.4 Baso % (Auto) 1.1 Nucleat RBC Rel Count 0.0 Neut # (Auto) 3.1 Lymph # (Auto) 1.0 [place] # (Auto) 0.4 Eos # (Auto) 0.1 Baso # (Auto) 0.0 PT 13.5 H INR 1.1 APTT 37.9 H A&P - Cardiology (1) Heart block, AV: Assessment/Problem Details: Symptomatic and also observed to have significant bradycardia arrhythmia and chronotropic incompetence. Technically he has high-grade if not complete atrioventricular rachel block based upon his low heart rate even with physical activity. Code(s): I44.30 - Unspecified atrioventricular block (2) A-fib: Assessment/Problem Details: Longstanding. Temple of rhythm deemed not possible hence treated with antithrombotic therapy and rate control strategy. Code(s): I48.91 - Unspecified atrial fibrillation Plan Discharge today on clindamycin 600 mg p.o. 3 times daily for 2 days. Other homemeds as before including Eliquis. Documented By: Arnulfo Carter MD [id number] Signed By: <Electronically signed by MD Arnulfo Carter> 03/13/23 100 [facility] Work Phone: [phone]) [phone] History of Present illness Narrative* Joby Pinedo MD - 02/23/2023 1:10 PM EST Cardiology Consultation- New Consult Reason for referral: Symptomatic bradycardia HPI: Shahid Sanchez is a 82 y.o. male Patient is here for cardiovascular evaluation for symptomatic bradycardia. He is a 82-year-old white male with multiple risk factor for ischemic heart disease including hypertension, diabetes mellitus, age and male gender who carry the diagnosis of persistent/chronic atrial fibrillation has been onanticoagulation according to him for several years. There has been no attempt to restore sinus mechanism. He recently had been complaining of fatigue, tiredness and shortness of breath. An outpatientHolter monitor showed significant bradycardia with average heart rate 41 bpm. The patient carries adiagnosis of congestive heart failure but it is unclear to me whether it systolic or diastolic. Reviewing the record I was able to find a stress test back in 2018 at [facility] that showed questionable area of inferior wall ischemia but normal LV systolic function. His echocardiogram also showed preserved LV systolic function but both test were done back in 2018. The patient describes limited exercise tolerance and dyspnea on exertion. Assessment 1. Chronic atrial fibrillation with slow suggestive of AV node dysfunction. He is not on any AV blocking agent 2. Long-term anticoagulation due to chronic atrial fibrillation 3. No previous history of coronary artery disease but I was able to find an old stress test that showed questionable small area of inferior wall ischemia back in 2018 at the [facility] 4. Patient carries a diagnosis of heart failure the last echo that I have was back in 2018 at [facility] showing normal LV systolic function unclear whether he has developed LV systolic dysfunction since then 5. Shortness of breath, fatigue, tiredness and palpitation due to atrial fibrillation with slow ventricular rate 6. Hypertension 7. Diabetes mellitus 8. Rheumatoid arthritis 9. History of colon cancer status postresection with no recurrence Plan 1. I reviewed the patient the results of his recent Holter monitor. Clearly the patient would need pacemaker. However it is unclear with his diagnosis of heart failure if the patient also qualify fordefibrillator. Advised the patient considering his QRS duration is more than 120 ms if he need a defibrillator it would be better to have a BiV AICD. Will arrange for an echocardiogram as soon as possible following that we will arrange for either jewelry model maker or defibrillator based on the finding 2. We discussed risk factor modification 3. I am reluctant to adjust the patient medication currently concerning his bradycardia we will address his blood pressure medication down the road if remains elevated 4 I advised the patient if he had any lightheadedness, dizziness or syncope to go back immediately to the hospital 5. We will try to retrieve any diagnostic testing from his primary care physician including echo orstress test if it was done after 2018 6. Patient will need ischemic evaluation after the issue of his bradycardia arrhythmia is addressed Past Medical History: Patient had a history of diabetes mellitus, hypertension, atrial fibrillation, colon cancer, and rheumatoid arthritis. Surgical History: He has a past surgical history that includes Shoulder open rotator cuff repair (Bilateral); Carotidstent; Elbow surgery (Bilateral); Knee surgery (Bilateral); Gallbladder surgery; Colon surgery; andColonoscopy. Family History: Family History Problem Relation Name Age of Onset Cancer Mother Diabetes type I Father Cancer Sister Heart failure Brother Social History: Social History Tobacco Use Smoking status: Former Types: Cigarettes Smokeless tobacco: Never Substance Use Topics Alcohol use: Yes Allergies: Patient has no known allergies. Current Medications: Current Outpatient Medications: Bydureon BCise 2 mg/0.85 mL auto-injector, inject 2 milligrams subcutaneously every week in ABDOMEN,THIGH,OR... (REFER TO PRESCRIPTION NOTES)., Disp: , Rfl: dutasteride (Avodart) 0.5 mg capsule, Take 1 capsule (0.5 mg) by mouth once daily., Disp: , Rfl: Eliquis 5 mg tablet, Take 1 tablet (5 mg) by mouth 2 times a day., Disp: , Rfl: Entresto 24-26 mg tablet, Take 1 tablet by mouth 2 times a day., Disp: , Rfl: finerenone (Kerendia) 20 mg tablet, Take 1 tablet (20 mg) by mouth once daily., Disp: , Rfl: inFLIXimab (Remicade) 100 mg injection, Infuse 600 mg into a venous catheter once daily., Disp: , Rfl: levothyroxine (Synthroid, Levoxyl) 50 mcg tablet, Take 1 tablet (50 mcg) by mouth once daily. 1 tabwed-wed and Wednesday take 2 tabs, Disp: , Rfl: metFORMIN (Glucophage) 850 mg tablet, Take 50 mg by mouth once daily. take with evening meal, Disp:, Rfl: methenamine hippurate (Hiprex) 1 gram tablet, Take 1 tablet (1 g) by mouth 2 times a day., Disp: , Rfl: methotrexate (Trexall) 2.5 mg tablet, take 6 tablets by mouth every week, Disp: , Rfl: montelukast (Singulair) 10 mg tablet, Take 1 tablet (10 mg) by mouth once daily., Disp: , Rfl: rosuvastatin (Crestor) 10 mg tablet, Take 1 tablet (10 mg) by mouth once daily., Disp: , Rfl: tamsulosin (Flomax) 0.4 mg 24 hr capsule, Take 1 capsule (0.4 mg) by mouth once daily at bedtime., Disp: , Rfl: Vitals: Visit Vitals BP 144/60 (BP Location: Left arm, Patient Position: Sitting) Pulse (!) 36 Ht 1.803 m (5' 11 ) Wt 103 kg (228 lb) BMI 31.80 kg/m Smoking Status Former BSA 2.27 m Review of Systems Constitutional: Positive for malaise/fatigue. Cardiovascular: Positive for dyspnea on exertion and irregular heartbeat. Musculoskeletal: Positive for joint pain. Objective Physical Exam Constitutional: Appearance: Normal appearance. He is normal weight. HENT: Nose: Nose normal. Neck: Vascular: No carotid bruit. Cardiovascular: Rate and Rhythm: Normal rate. Rhythm regularly irregular. Pulses: Normal pulses. Heart sounds: Murmur heard. Systolic murmur is present with a grade of 2/6. Pulmonary: Effort: Pulmonary effort is normal. Abdominal: General: Bowel sounds are normal. Palpations: Abdomen is soft. Genitourinary: Rectum: Normal. Musculoskeletal: General: Normal range of motion. Cervical back: Normal range of motion. Right lower leg: No edema. Left lower leg: No edema. Skin: General: Skin is warm and dry. Neurological: General: No focal deficit present. Mental Status: He is alert. Psychiatric: Mood and Affect: Mood normal. Behavior: Behavior normal. Thought Content: Thought content normal. Judgment: Judgment normal. Assessment and Plan: 1. Bradycardia Transthoracic Echo (TTE) Complete 2. 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 Chronic systolic heart failure (CMS/HCC) Transthoracic Echo (TTE) Complete 5. Hypertension, unspecified type Transthoracic Echo (TTE) Complete 6. Type 2 diabetes mellitus without complication, unspecified whether chcf insulin use (CMS/HCC) 7. Heart failure, unspecified HF chronicity, unspecified heart failure type (CMS/HCC) 8. Abnormal ECG 9. Immunosuppression (CMS/HCC) 10. Permanent atrial fibrillation (CMS/HCC) documented in this [facility] Work Phone: 1(484) 186-876611-28-2023 Instructions* Patient Instructions* Cm Nicole MA - 02/23/2023 1:10 PM EST Please bring all medicines, vitamins, and herbal supplements with you when you come to the office. Prescriptions will not be filled unless you are compliant with your follow up appointments or have a follow up appointment scheduled as per instruction of your physician. Refills should be requested at the time of your visit. documented in this [facility] Work Phone: 1(258) 218-143104-12-2023 NoteOPERATIVE NOTE OPERATION DATE: 07/08/2022 PREOPERATIVE DIAGNOSIS: Positive Cologuard, personal history of colon cancer. POSTOPERATIVE DIAGNOSIS: Polyp near the ileocolic anastomosis and descending colon polyp. PROCEDURE: Colonoscopy to ileocolic anastomosis with cold snare polypectomy x2. SURGEON: Yovany Avila M.D. ANESTHESIA: Monitored anesthesia care. ESTIMATED BLOOD LOSS: Less than 1 mL. INDICATIONS AND CONSENT: Patient is an 81-year-old male with personal history of colon cancer with recent positive Cologuard. Indications, risks, benefits, alternatives of proceeding with colonoscopy were explained extensively to the patient, including the risks of bleeding, colon perforation or anesthetic complications. All of his questions were answered. Informed consent was obtained. PROCEDURE: Patient brought to the operating room, placed in the left lateral decubitus position. Monitored anesthesia care was provided. Rectal exam was performed which showed no masses or blood. The scope was inserted into the anal canal. Under direct visualization was advanced. With the aid of abdominal compression, it was advanced to the ileocolic anastomosis which was widely patent. There was noted to be a 4 mm sessile polyp near the ileocolic anastomosis. This was removed with cold snare with good hemostasis. There was a moderate amount of liquid brown stool throughout the colon that was partially irrigated clear. The prep was fair. There were no mass lesions or inflammatory changes. In the descending colon, there was noted to be a 5 mm sessile polyp that was removed with cold snare with good hemostasis. There was some mild sigmoid diverticulosis. The scope was retroflexed in the anal canal. There was no significant hemorrhoidal disease. There were some prominent rectal veins. The scope was then withdrawn. Patient tolerated procedure well, was sent to recovery room in good condition. Follow up colonoscopy should be in five years, but may change, depending on the pathology results. CC: Al Raymundo D.O.[facility]03-08-2023 NoteChief Complaint consultation for positive Cologuard HPI Staff 81 year old male presents on consultation from Dr. Raymundo for positive Cologuard. Patient with history of invasive adenocarcinoma of colon with right hemicolectomy completed 04/2018. Patient has not had a colonoscopy since this time. He denies abdominal or rectal pain. No rectal bleeding or change in bowel habits. Denies nausea or vomiting. No unexplained weight loss. Patient on Eliquis for a.fib. History of Present Illness 81 yo male with h/o a fib, on Eliquis, htn, DMII, hypercholesterolemia, hypothyroidism, Rheumatoid arthritis, referred for positive Cologuard; patient with h/o T3N0 colon cancer at hepatic flexure, s/p right hemicolectomy in 2019; denies change in bms or blood in stools; no abd complaints; abd surgery also significant for cholecystectomy and primary repair of umbilical hernia; patient on Eliquis daily, no asa or NSAID use; no SBE prophylaxis; on methotrexate and Remicade for Rheumatoid arthritis; no tobacco use, no fmhjx of GI malignancy or IBD. Review of Systems PHQ Score Initial Depression Screen Score: 0 ROS - Provider Constitutional: no fever, no sweats, no weight loss. Eyes: no glasses, no blurred vision, no visual loss. ENMT: no dentures, no hoarseness, no swallowing difficulties, no hearing loss, no ear infection(s),no nose bleeds. Cardiovascular: normal blood pressure, no chest pain, regular heartbeat, no heart murmur. Respiratory: no shortness of breath, no cough, no asthma, no wheezing. Gastrointestinal: no nausea, no vomiting, no diarrhea, no constipation, no blood in stool, no change in bowel habits, no abdominal pain, no hepatitis. Genitourinary: no kidney stones, no urine infection, no dysuria. Musculoskeletal: yes pain, no weakness. Skin: no changing moles, no rash, no skin lumps. Neurologic: no seizures, no epilepsy, no headache. Psychiatric: no emotional or psychiatric problem. Heme/Lymph: no bleeding problems, no anemia, no blood clots, no transfusions. Allergy/Immunologic: no swollen lymph nodes/glands, no IV drug abuse. Other: Additional ROS info: Except as noted in the above Review of Systems and in the History of Present Illness, all other systems have been reviewed and are negative or noncontributory. Physical Exam Vitals & Measurements HR: 70(Peripheral) RR: 16 BP: 130/80 HT: 73 in HT: 185.4 cm WT: 102 kg WT: 224.4 lb BMI: 29.67 HEENT: normal conjunctiva, sclera clear, no scleral icterus, EOM intact, PERRLA, oral mucosa moist without lesions. Neck: trachea midline, no mass, symmetric, no thyromegaly or nodules, no adenopathy Respiratory: lungs CTA, respirations non labored. Cardiovascular: regular rate and rhythm, no murmur, no pedal edema or varicosities. Gastrointestinal: soft, non distended, no tenderness, no masses, well-healed midline incision with prominant diastasis recti, no palpable fascial defect; , no hepatosplenomegaly; normal bs Lymphatic: no cervical adenopathy, no supraclavicular adenopathy Musculoskeletal: normal gait, digits and nails without infection, nodes, cyanosis, clubbing. Skin: no rashes, no lesions, no ulcers, no subcutaneous nodules, induration. Psychiatric/Neuro: oriented to time, place, person, judgement normal, affect appropriate for age, insight intact, no focal deficits. Tests: reiewed, review of old records completed, Discussed surgical options, risks, and possible complications with patient. Assessment/Plan 1. Positive colorectal cancer screening using Cologuard test (R19.5: Other fecal abnormalities) plan colonoscopy under anesthesia for further evaluation, informed consent obtained. 2. 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 Medications Atrovent 0.03% [place], 2 spray(s), Nasal, TID Avodart 0.5 mg Cap, 0.5 mg= 1 cap(s), Oral, Daily Crestor 10 mg Tab, 10 mg= 1 tab(s), Oral, Daily Eliquis 5 mg oral tablet, 5 mg= 1 tab(s), Oral, BID Entresto 24 (more content not included)...[facility] HospitalComment on above:Result Comment: Electronically Signed By: MARGARITA CABRERA, Yovany Figueredo\Date and Time Signed: 06/03/22 13:54 [id number] NotePROCEDURE: XR ELBOW RT MIN 3 VIEWS HISTORY: Swelling ; surgery for bursa 10/02/2021 COMPARISON: None. FINDINGS: BONES:No fracture, dislocation, bone lesion. Small degenerative osteophytes along the articular margins of the ulna. Prominent degenerative enthesophyte at the triceps tendon insertion into the olecranon. SOFT TISSUES:Marked soft tissue thickening posterior to the elbow. EFFUSION:None visible. OTHER: Atherosclerotic disease. IMPRESSION: 1. Marked soft tissue thickening posterior to the elbow; olecranon bursitis versus postsurgical hematoma. No comparison studies. 2. No acute bone abnormality. Mild degenerative joint disease. Electronically authenticated by: JOCELINE HOUGH Date: 2021-10-22 12:53[facility]02-09-2021 NotePatient Outreach (COVAMN) SHAHID SANCHEZ ([id number]) 1940 M Date Time Provider Department 05/07/20 JEFFRY BLISS During your visit today, we recorded the following information about you: Allergies As of Date: 05/07/2020 (No Known Allergies) Date Reviewed: 01/05/2019 Reviewed by: Teresa Thompson Ma - Fully Assessed Order(s):SARS-COVID VACCINE 1ST DOSE APPT [26429MIT] Order #: [id number] FUTURE Prescriptions as of 05/07/2020 Sig: OLMESARTAN 40 MG TABLET Take 40 mg by mouth once ayl* OXYBUTYNIN CHLORIDE 5 MG TABL* Take 5 mg by mouth three time* LIRAGLUTIDE 0.6 MG/0.1 ML (18* Inject 1.8 mg subcutaneously * INFLIXIMAB 100 MG INTRAVENOUS* Inject 600 mg intravenously o* AMLODIPINE 10 MG TABLET Take 10 mg by mouth once aly* LEVOTHYROXINE 50 MCG TABLET Take 50 mcg by mouth daily be* FINASTERIDE 5 MG TABLET Take 5 mg by mouth once daily. MIRABEGRON ER 50 MG TABLET,EX* Take 50 mg by mouth once aly* METHOTREXATE SODIUM 2.5 MG TA* Take 2.5 mg by mouth every We* ROSUVASTATIN 10 MG TABLET Take 10 mg by mouth once aly* METFORMIN 500 MG TABLET Take 500 mg by mouth twice da* FOLIC ACID 800 MCG TABLET Take 400 mcg by mouth once da* CHOLECALCIFEROL (VITAMIN D3) * Take 5,000 Units by mouth onc* FERROUS GLUCONATE 240 MG (27 * Take 240 mg by mouth once susana* PLAVIX 75 MG TABLET Take one(1) tablet daily. Problem List As Of Date 05/07/2020 Noted Resolved Abnormal ECG [R94.31] 01/21/2017 Letter Text Encounter Status:Closed by CLAUDIA BRUNNER on 05/10/20[facility] Consult note Author Arnulfo Carter [facility] September 09, 2023 4:38pm Note Date/Time September 09, 2023 4:38 pm [facility] [address] [place] [address] Cardiology Consult Note Signed Patient: Shahid Sanchez MR#: [id number] : 1940 Acct:[id number] Age/Sex: 82 / M Adm Date: 4 Loc: Room: 0E8028-0 Type: ADM IN Attending Dr: Astrid Osman DO Copies to: DO Arnulfo Alvarez Jr, MD Yazid Hussein, DO~ Cardiology HPI History of Present Illness Consult Date: 09/09/23 Reason for Consult: Acute congestive heart failure HPI: Mr. Sanchez is a 82 year old maleSeen for the above He is an individual historically with chronic atrial fibrillation, normal left ventricular systolic function and no previous history of heart failure. He had not been on any diuretics or other heart failure medications. His care predominantly revolved around management of hypertension and atrial fibrillationand bradycardia arrhythmia, recently, with the implantation of a single-chamber pacemaker (because of chronic atrial fibrillation). He describes a 2 to 3-week history of worsening shortness of breath orthopnea PND and leg edema. No recent change in diet or medications. No syncope near syncope palpitation no anginal chest pain. I cannot elicit from him any other issues such as a recent viral illness cold cough or sputum production. Symptoms are predominantly dyspnea and edema. Review of Systems Review of Systems All other systems reviewed & are negative unless noted below or in HPI Constitutional Constitutional: Reports system reviewed and no additional complaints, except as documented Eyes Eyes: Reports system reviewed and no additional complaints, except as documented ENT Ears, Nose, Mouth, and Throat: Reports system reviewed and no additional complaints, except as documented Cardiovascular Cardiovascular: Reports as per HPI Respiratory Respiratory: Reports system reviewed and no additional complaints, except as documented Gastrointestinal Gastrointestinal: Reports system reviewed and no additional complaints, except as documented Genitourinary Genitourinary: Reports system reviewed and no additional complaints, except as documented Musculoskeletal Musculoskeletal: Reports system reviewed and no additional complaints, except asdocumented Integumentary/Breasts Skin/Breast: Reports system reviewed and no additional complaints, except as documented Neurologic Neurologic: Reports system reviewed and no additional complaints, except as documented Psychiatric Psychiatric: Reports system reviewed and no additional complaints, except as documented Endocrine Endocrine: Reports system reviewed and no additional complaints, except as documented Hematologic/Lymphatic Hematologic/Lymphatic: Reports system reviewed and no additional complaints, except as documented Allergic/Immunologic Allergic/Immunologic: Reports system reviewed and no additional complaints, except as documented [facility] Medical History (Updated 09/09/23 @ 16:37 by Arnulfo Carter MD) Skin cancer head, removed yearly Arthritis Hearing impaired hearing aids, doesnt always wear Arrhythmia Hypertension Hypercholesteremia CERVANTES (dyspnea on exertion) Chronic UTI Rheumatoid arthritis Hypothyroidism Diabetes mellitus, type 2 BPH (benign prostatic hyperplasia) Former smoker GUNNER (obstructive sleep apnea) does not use cpap History of colon cancer CHF (congestive heart failure) A-fib Surgical History History of phacoemulsification of cataract of both eyes with intraocular lens implantation History of partial surgical removal of colon History of cholecystectomy History of total bilateral knee replacement History of elbow surgery bilateral History of repair of rotator cuff bilateral History of carotid angioplasty Family History Father Diabetes Sister Cancer Sister Cancer Brother Heart failure Father Diabetes Mother Cancer [facility] Problem: Diagnosed with Cancer Malignant neoplasm of breast Sister Cancer [facility] Problem: Diagnosed with Cancer Sister Cancer [facility] Problem: Diagnosed with Cancer Social History Smoking Status: Former smoker Tobacco Type: cigarettes Substance Use Type: None Meds Medications and Allergies Allergies No Known Allergies Allergy (Verified 09/09/23 11:58) Home Medications apixaban 5 mg tablet (Eliquis) 5 mg PO BID 03/10/23 [History Confirmed 09/09/23] cholecalciferol (vitamin D3) 25 mcg (1,000 unit) chewable tablet (Vitamin D3) 25mcg PO DAILY 03/10/23 [History Confirmed 09/09/23] dutasteride 0.5 mg capsule 0.5 mg PO QPM 03/10/23 [History Confirmed 09/09/23] exenatide microspheres 2 mg/0.85 mL subcutaneous auto-injector (ByBjond BCise) 2 mg subcut QWEEK 03/10/23 [History Confirmed 09/09/23] folic acid 20 mg capsule 20 mg PO DAILY 03/10/23 [History Confirmed 09/09/23] infliximab 100 mg intravenous solution (Remicade) See Rx Instructions .Route .COMPLEX 03/10/23 [History Confirmed 09/09/23] levothyroxine 50 mcg tablet 50 mcg PO DAILY 03/10/23 [History Confirmed 09/09/23] metformin 850 mg tablet 850 mg PO DAILY 03/10/23 [History Confirmed 09/09/23] methenamine hippurate 1 gram tablet (Hiprex) 1 g PO BID 03/10/23 [History Confirmed 09/09/23] methotrexate sodium 2.5 mg tablet 15 mg PO QWEEK 03/10/23 [History Confirmed 09/09/23] montelukast 10 mg tablet (Singulair) 10 mg PO 4XW 03/10/23 [History Confirmed 09/09/23] rosuvastatin 10 mg tablet (Crestor) 10 mg PO 4XW 03/10/23 [History Confirmed 09/09/23] sacubitril 24 mg-valsartan 26 mg tablet (Entresto) 1 tab PO BID 03/10/23 [History Confirmed 09/09/23] tamsulosin 0.4 mg capsule 0.4 mg PO HS 03/10/23 [History Confirmed 09/09/23] furosemide 40 mg tablet 80 mg PO BID 09/09/23 [History Confirmed 09/09/23] metoprolol tartrate 25 mg tablet 25 mg PO DAILY 09/09/23 [History Confirmed 09/09/23] Exam Physical Exam Vital Signs: Temp Pulse Resp BP Pulse Ox O2 Del Method O2 Flow Rate 98.8 F 69 18 125/56 L 95 Nasal Cannula 3 09/09/23 11:56 09/09/23 15:30 09/09/23 15:30 09/09/23 15:30 09/09/23 15:30 09/09/23 15:30 09/09/23 15:30 HEENT Head: normal to inspection Ears: hearing grossly normal bilaterally Nose: external nose normal and nares normal Face and sinus: normal facial exam Mouth: oral mucosae normal and tongue normal Eyes Conjunctivae: conjunctivae normal Sclera: sclerae normal Neck Neck: normal visual inspection Carotids: normal carotid upstroke Lymphatic: no lymphadenopathy noted Chest Chest palpation & inspection: normal inspection of the chest Resp Effort & Inspection: normal respiratory effort Auscultation: clear to auscultation bilaterally Cardio Rate: regular rate Rhythm: regular rhythm Heart Sounds: S1 normal and S2 normal GI Inspection: normal to inspection Palpation: soft Skin General: no rashes or lesions noted Neuro General: patient alert, patient awake and patient oriented x3 Cognition: normal cognition Motor: muscle tone normal throughout Sensory Exam: no sensory deficits noted Results - Cardiology Labs 09/09/23 12:15 09/09/23 12:15 Lab results: Cardiac Enzymes 09/09/23 Range/Units 12:15 AST 21 (13-39) U/L Total Creatine Kinase 40 (30-223) U/L B-Natriuretic Peptide 517.0 H (5-100) pg/mL CBC 09/09/23 Range/Units 12:15 RBC 3.95 (3.90-5.60) X10E6/uL Hgb 12.6 L (13.0-17.0) g/dL Hct 36.7 L (38.8-50.0) % Plt Count 279 (150-450) x10E3/uL Neut # (Auto) 9.8 H (1.8-7.7) x10E3/uL Lymph # (Auto) 0.4 L (1.00-4.8) x10E3/uL [place] # (Auto) 0.6 (0.0-0.8) x10E3/uL Eos # (Auto) 0.1 (0.0-0.45) x10E3/uL Baso # (Auto) 0.1 (0.0-0.2) x10E3/uL Comprehensive Metabolic Panel 09/09/23 Range/Units 12:15 Sodium 138 (136-145) mmol/L Potassium 3.9 (3.5-5.1) mmol/L Chloride 102 (98-107) mmol/L Carbon Dioxide 24.3 (21.0-31.0) mmol/L BUN 27 H (7-25) mg/dL Creatinine 1.21 (0.70-1.30) mg/dL Glucose 239 H (70-100) mg/dL Calcium 8.8 (8.6-10.3) mg/dL AST 21 (13-39) U/L ALT 16 (7-52) U/L Alkaline Phosphatase 55 (34-104) U/L Total Protein 6.3 L (6.4-8.9) gm/dL Albumin 3.5 (3.5-5.7) gm/dL Intake and Output 09/09/23 09/09/23 09/09/23 07:59 15:59 23:59 Output Total 200 / 200 Balance -200 / -200 Output: Urine 200 / 200 Other: Weight 99.337 kg Patient Weight 09/09/23 23:59 Weight 99.337 kg A&P - Cardiology (1) Acute exacerbation of CHF (congestive heart failure): Assessment/Problem Details: Patient's manifestations are those of acute CHF. Unclear whether it systolic ordiastolic in nature. I recommended an echocardiogram in this regard. I agree with the furosemide implemented by the admitting service. I would also add spironolactone. Pending results of echocardiogram will make further adjustments to medical therapy. Qualifiers: Heart failure type: unspecified Qualified Code(s): I50.9 - Heart failure, unspecified Code(s): I50.9 - Heart failure, unspecified (2) A-fib: Assessment/Problem Details: Chronic and permanent. Treated with 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 therapy. 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 This was uneventful. Code(s): I44.30 - Unspecified atrioventricular block Plan Diuresis with a combination of spironolactone and furosemide. Echocardiogram. Pending results, further adjustments to medical therapy Documented By: Arnulfo Carter MD [id number] Signed By: <Electronically signed by MD Arnulfo Carter> 09/09/23 1638 [facility] Work Phone: Discharge summary Author Misael Gonzales [facility] September 15, 2023 7:10pm Note Date/Time September 15, 2023 7:10 pm [facility] [address] [place] [address] Discharge Summary Signed Patient: Shahid Sanchez MR#: [id number] : 1940 Acct:[id number] Age/Sex: 82 / M Adm Date: 4 Loc: Room: [address] [place] [address]: Misael Gonzales MD Copies to: DO Misael Alvarez Jr, MD~ Providers Date of Discharge: 09/15/23 Discharging Provider: Misael Gonzales Primary Care Provider: Al Raymundo Consults: 09/09/23 13:55 Consult to Cardiology Routine Comment: Consulting Provider: [employer] [facility] [employer] Reason For Exam: ?new CHF Has Provider Been Notified: Yes Date of Notification: 09/09/23 Time of Notification: 16:21 Discharge Diagnosis (1) Acute systolic (congestive) heart failure: (2) Hypertension: (3) Severe aortic stenosis: (4) Sick sinus syndrome: (5) Chronic systolic dysfunction of left ventricle: (6) Hypercholesteremia: (7) Hypothyroidism: (8) Rheumatoid arthritis: (9) Acute respiratory failure with hypoxia: Final Diagnosis Final Discharge Diagnosis: As above Summary Hospital Course Hospital course: Mr. Sanchez is an 82yo M with PMH of HTN, HLD, A-fib, sick sinus syndrome status post pacemaker 02/2023, hypothyroidism, RA on methotrexate who presented to the emergency department with complaints of dyspnea. Patient noticed worsening respiratory issues over the last 3 to 4 weeks. He was initiated on nasal cannula O2 at 3 L and the week before hospitalization. He did have worsening shortness of breath and was saturating in the 80s on room air and did need 6 L nasal cannula to maintain his saturations above 90%. BNP elevated at 517. He was started on IV Lasix and had spironolactone added per cardiology. Echocardiogram revealed EF of 35-40%. Patient was noted to have severe valvularaortic stenosis. Patient's home Entresto was discontinued. Medication regimen was adjusted per cardiology. Patient underwent SEBASTIÁN as well as cardiac cath in preparation for need for likely TAVR. SEBASTIÁN did reveal left atrial appendage thrombus. Cardiac catheter revealed single-vessel coronary disease with significant collaterals. No intervention was performed on this coronary vessel. Patient is planned for outpatient aortic valve replacement through [facility]. He was medically optimized and discharged, with plan for replacementof his aortic valve in the upcoming weeks. He was requiring 3 L nasal cannula oxygen at rest and recommended 6 L nasal cannula on exertion. 45 minutes spent coordinating the discharge of this patient Time Spent with Patient Time spent providing/coordinating discharge services (# min): 35 Surgeries and Procedures Operation Date: 09/14/23 11:15 Actual Procedures p [facility] - Joby Pinedo MD Discharge Plan Discharge Plan Patient Disposition: Home Activity: Other Comment: Please follow Cardiac Cath discharge instructions for activity restrictions Diet: Low-Sodium and Low-Cholesterol Additional Instructions: Please wear your home oxygen at 3l at rest and increase it to 6l with any activity. DISCHARGE INSTRUCTIONS FOR CARDIAC PROPERTY INSURANCE CLAIMS EXAMINER PROCEDURE: Heart Cath The following instructions have been prepared to help you care for yourself, or be cared for upon your return home. 1. You were given conscious sedation. Do not operate a vehicle, power tools, make important decisions, or drink alcohol for 24 hours. You might be drowsy orlight headed. Return to the Emergency Room if you have trouble breathing, walking or nausea and vomiting. 2. FOR BLEEDING: Apply continuous pressure to the site and call 911. 3. Operative Site Care: Keep the dressing clean and dry. You may change the dressing only if soiled or wet. You may remove the dressing the following morning. You may wash over the puncture site in the shower. If the puncture site is at the wrist no soaking for 3 days. Some bruising or slight swelling may be present. -Signs of infection are redness, warmth, swelling, getting more sore, colored drainage, fever or chills. -Should the arm or leg become cold, numb, blue or white, call the lodging facilities attendant immediately. 4. ACTIVITY: You are advised to go directly home from the hospital. Restrict your activities for the rest of the day. Resume light or normal activities tomorrow. Do not engage in any activity that will stress the puncture site. Avoid heavy lifting (over 15 lbs.), straining or bending at the catheter site for 48 hours after discharge. If the puncture site is at the wrist do not manipulate wrist for 24 hours and no lifting more than 3 lbs for 3 days. 5. DIET:You may eat your regular diet when you desire. 6. MEDICATIONS: Resume your daily prescription schedule. Prescriptions may be sent with you if needed. Use as directed. When taking pain medications, you may experience dizziness or drowsiness. Do not drink alcohol or drive when taking pain medications. 7. If you should experience episodes of angina e.g. chest discomfort, heaviness, tightness, pressure, burning, with or without radiation to the neck, jaws, arms, or back- Use 1 Nitrostat under your tongue every 5-10 minutes, and up to 3 tablets. If no relief- Call 911 and go to the nearest Emergency Room. -Notify the office for recurrent angina, chest pain or other concerns. You may NOT drive yourself home! Follow the medication instructions provided on your discharge. If the dosages and instructions on this sheet differ from the dosage and instructions on the bottle, follow the instructions on the bottle. [facility] information provided by the patient during their visit. Do not stop your medications without consulting your health care provider. Please take the list with you to your next doctor's appointment. Instructions: Oxygen Therapy, Adult (DC), Metoprolol, Spironolactone, Valsartan, Aortic Valve Replacement, Transcatheter, Know your Meds Prescriptions: New metoprolol succinate 50 mg Tablet Extended Release 24 Hr 50 mg PO DAILY 30 Days Qty: 30 12RF spironolactone 25 mg Tablet 25 mg PO DAILY 30 Days Qty: 30 12RF valsartan 40 mg tablet 40 mg PO DAILY 30 Days Qty: 30 12RF Continued furosemide 40 mg tablet 80 mg PO BID Rx Instructions: Patient takes 2 in the morning and 2 at 1500 states he started this 2 weeks ago metformin 850 mg tablet 850 mg PO DAILY Patient Comments: take 1 tablet by mouth once daily with SUPPER folic acid 20 mg Capsule 20 mg PO DAILY methenamine hippurate [Hiprex] 1 gram tablet 1 g PO BID Patient Comments: take 1 tablet by mouth twice a day methotrexate sodium 2.5 mg tablet 15 mg PO QWEEK Patient Comments: take 6 tablets by mouth every week on Wednesday Rx Instructions: wednesdays tamsulosin 0.4 mg capsule 0.4 mg PO HS Patient Comments: take 1 capsule by mouth at bedtime levothyroxine 50 mcg tablet 50 mcg PO DAILY Patient Comments: TAKE 1 TABLET BY MOUTH ONCE DAILY WEDNESDAY THRU WEDNESDAY - THEN 2 TABLETS ON SUNDAYS Rx Instructions: take 2 on sundays, 1 daily other days infliximab [Remicade] 100 mg Recon Soln See Rx Instructions .ROUTE .COMPLEX Rx Instructions: as directed. pt. states approx every 8 weeks montelukast [Singulair] 10 mg Tablet 10 mg PO 4XW Rx Instructions: Wednesday ,wednesday, and wednesday dutasteride 0.5 mg capsule 0.5 mg PO QPM Patient Comments: take 1 capsule by mouth once daily rosuvastatin [Crestor] 10 mg Tablet 10 mg PO 4XW Rx Instructions: Wednesday, Wednesday, Wednesday and Wednesday cholecalciferol (vitamin D3) [Vitamin D3] 25 mcg (1,000 unit) Tablet,Chewable 25 mcg PO DAILY Eliquis 5 mg Tablet 5 mg PO BID Bydureon BCise 2 mg/0.85 mL auto-injector 2 mg SUBCUT QWEEK Patient Comments: inject 2 milligrams subcutaneously every week in ABDOMEN,THIGH,OR... (REFER TO PRESCRIPTION NOTES). Rx Instructions: mondays Discontinued metoprolol tartrate 25 mg tablet 25 mg PO DAILY Entresto 24-26 mg tablet 1 tab PO BID Patient Comments: take 1 tablet by mouth twice a day . HOLD IF blood pressure IS LESS THAN 110 Other Ambulatory Orders: DME Home Medical Equipment (Routine) Timeframe: [id number] Location: Determined by Patient Ordered By: Misael Gonzales Follow Up: Joby Pinedo MD [Active Staff] - 10/13/23 3:30 pm Al Raymundo JR, [Primary Care Provider] - (His office was notified of your discharge. They will contact you with appointment information.) Milton Camejo MD [Referring] - (referral for TAVR- they will call with appointment) Exam Physical Exam Vital Signs: Temp Pulse Resp BP Pulse Ox O2 Del Method O2 Flow Rate 97.3 F L 68 18 125/63 97 Nasal Cannula 6 09/15/23 16:09/15/23 16:09/15/23 16:09/15/23 16:09/15/23 16:09/15/23 17:09/15/23 17:30 Narrative: Constitutional: Elderly WM, resting in bed, breathing comfortably on nasal cannula O2 HEENT: Dry mucous membranes, neck supple, no JVD Cardiovascular: Distant heart sounds, irregular rhythm Respiratory: Clear to auscultation bilaterally, no wheezes, rales or rhonchi GI: Soft, NTND, NABS : Deferred Extremities: 1+ edema noted in the bilateral lower extremities distally Neuro: AAOx3, no focal deficits Skin: No rashes or lesions noted upon anterior inspection Psych: Calm, cooperative and conversant Diagnostic Studies Completed and Pending Studies Pending studies at discharge: 09/16/23 05:00 Basic Metabolic Panel [CHEM] IN AM Complete Blood Count Auto Diff IN AM 09/17/23 05:00 Basic Metabolic Panel [CHEM] IN AM Complete Blood Count Auto Diff IN AM 09/18/23 05:00 Basic Metabolic Panel [CHEM] IN AM Complete Blood Count Auto Diff IN AM 09/19/23 05:00 Basic Metabolic Panel [CHEM] IN AM 09/20/23 05:00 Basic Metabolic Panel [CHEM] IN AM Labs on day of discharge: 09/15/23 16:22: POC Glucose 208 09/15/23 12:21: POC Glucose 212 09/15/23 10:38: Corrected WBC 6.6, Uncorrected WBC Count 6.6, RBC 3.28 L, Hgb 10.5 L, Hct 30.8 L, MCV 93.8, MCH 32.0, MCHC 34.1, RDW 17.7 H, Plt Count 163, MPV 8.2, Neut % (Auto) 75.5, Lymph % (Auto) 12.1, [place] % (Auto) 10.2, Eos % (Auto) 1.8, Baso % (Auto) 0.4, Nucleat RBC Rel Count 0.1, Neut # (Auto) 5.0, Lymph # (Auto) 0.8 L, [place] # (Auto) 0.7, Eos # (Auto) 0.1, Baso # (Auto) 0.0 09/15/23 06:45: POC Glucose 130 09/15/23 05:43: PHA Creatinine Clear 69.89, Sodium 138, Potassium 3.8, Chloride 103, Carbon Dioxide 30.4, Anion Gap 8.4, BUN 21, Creatinine 1.01, Est GFR (CKD-EPI) > 60.0, Glucose 142 H, Calcium 8.1 L 09/14/23 20:49: POC Glucose 233 Documented By: Misael Gonzales MD [id number] Signed By: <Electronically signed by Misael Gonzales MD> 09/15/23 191 [facility] Work Phone: Evaluation + Plan note No data available for this section [facility] [place] Evaluation noteNo assessment information available [facility] Diagnosis Bradycardia- Primary Other specified cardiac dysrhythmias Persistent atrial fibrillation ([facility]/HCC) Atrial fibrillation USP current use of 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 therapy Chronic systolic heart failure ([facility]/HCC) Chronic systolic heart failure Hypertension, unspecified type Type 2 diabetes mellitus without complication, unspecified whether chcf insulin use ([facility]) Heart failure, unspecified HF chronicity, unspecified heart failure type ([facility]) Abnormal ECG Nonspecific abnormal electrocardiogram (ECG) (EKG) Immunosuppression ([facility]) Permanent atrial fibrillation ([facility] Atrial fibrillation documented in this encounter [facility] Work Phone: Evaluation note* Diagnosis Persistent atrial fibrillation ([facility]) Atrial fibrillation Bradycardia Other specified cardiac dysrhythmias Chronic systolic heart failure ([facility]) Chronic systolic heart failure Hypertension, unspecified type documented in this encounter [facility] Work Phone: Evaluation note* Diagnosis Onset Date Resolution Status A-fib acute Heart block, AV acute [facility] Work Phone: Evaluation note* Diagnosis Persistent atrial fibrillation ([facility])- Primary Atrial fibrillation Bradycardia Other specified cardiac dysrhythmias Cardiac pacemaker Cardiac pacemaker in situ Abnormal ECG Nonspecific abnormal electrocardiogram (ECG) (EKG) Primary hypertension Unspecified essential hypertension Hypercholesteremia Pure hypercholesterolemia USP current use of 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 therapy Shortness of breath documented in this encounter [facility] Work Phone: Evaluation note* Diagnosis Shortness of breath documented in this encounter [facility] Work Phone: Evaluation note* Diagnosis Onset Date Resolution Status A-fib acute Acute exacerbation of CHF (congestive heart failure) acute Heart block, AV acute Hypercholesteremia acute Hypertension acute Hypothyroidism acute Rheumatoid arthritis acute [facility] Work Phone: Evaluation note* Diagnosis Onset Date Resolution Status A-fib acute Acute exacerbation of CHF (congestive heart failure) acute Acute systolic (congestive) heart failure acute Heart block, AV acute Hypercholesteremia acute Hypertension acute Hypokalemia acute Hypothyroidism acute Rheumatoid arthritis acute Severe aortic stenosis acute Sick sinus syndrome acute [facility] Work Phone: Evaluation note* Diagnosis Onset Date Resolution Status A-fib acute Hypercholesteremia acute Hypertension acute Hypokalemia acute Hypothyroidism acute Rheumatoid arthritis acute Severe aortic stenosis acute Sick sinus syndrome acute Acute exacerbation of CHF (congestive heart failure) resolved Acute systolic (congestive) heart failure resolved Heart block, AV resolved [facility] Work Phone: Evaluation note* Diagnosis Onset Date Resolution Status A-fib acute Hypercholesteremia acute Hypertension acute Hypokalemia acute Hypothyroidism acute Rheumatoid arthritis acute Severe aortic stenosis acute Sick sinus syndrome acute Acute exacerbation of CHF (congestive heart failure) resolved Acute systolic (congestive) heart failure resolved Heart block, AV resolved A-fib acute Acute anemia acute Acute hyponatremia acute Acute kidney injury superimposed on CKD acute [place] (acute kidney injury) ac [place] Anemia acute Chronic systolic dysfunction of left ventricle acute GI (gastrointestinal bleed) acute Severe aortic stenosis acute [facility] Work Phone: Evaluation note* Diagnosis Onset Date Resolution Status A-fib acute Hypercholesteremia acute Hypertension acute Hypokalemia acute Hypothyroidism acute Rheumatoid arthritis acute Severe aortic stenosis acute Sick sinus syndrome acute Acute exacerbation of CHF (congestive heart failure) resolved Acute systolic (congestive) heart failure resolved Heart block, AV resolved A-fib acute Acute anemia acute Acute hyponatremia acute Acute kidney injury superimposed on CKD acute Acute on chronic anemia acut e Acute on chronic systolic (congestive) heart failure acute [place] (acute kidney injury) ac [place] Anemia acute Aortic stenosis acute Chronic systolic dysfunction of left ventricle acute GI (gastrointestinal bleed) acute Hyponatremia acute Pulmonary hypertension acute Severe aortic stenosis acute [facility] Work Phone: Evaluation note* Diagnosis Onset Date Resolution Status Anemia acute Aortic stenosis acute Severe aortic stenosis acute Acute anemia resolved Acute hyponatremia resolved Acute kidney injury superimposed on CKD resolved Acute on chronic anemia reso lved Acute on chronic systolic (congestive) heart failure resolved [place]LIN (acute kidney injury) re solved [facility] Work Phone: Evaluation note* Diagnosis Aortic stenosis, severe S/P TAVR (transcatheter aortic valve replacement) documented in this encounter [facility] Work Phone: Evaluation note* Diagnosis Nonrheumatic aortic valve stenosis- Primary Single vessel coronary artery disease Coronary atherosclerosis of unspecified type of vessel, [place] or graft Chronic systolic heart failure Persistent atrial fibrillation (Multi) Atrial fibrillation Edema, unspecified type Severe aortic stenosis Aortic valve disorders History of transcatheter aortic valve replacement (TAVR) Pulmonary hypertension (Multi) Other chronic pulmonary heart diseases Primary hypertension Unspecified essential hypertension Hypercholesteremia Pure hypercholesterolemia Abnormal ECG Nonspecific abnormal electrocardiogram (ECG) (EKG) Shortness of breath USP current use of 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 therapy Obstructive sleep apnea syndrome Obstructive sleep apnea (adult) (pediatric) BMI 30.0-30.9,adult Former smoker Personal history of tobacco use, presenting hazards to health documented in this encounter [facility] Work Phone: Evaluation note* Diagnosis Nonrheumatic aortic valve stenosis documented in this encounter [facility] Work Phone: Evaluation note* Diagnosis Chronic systolic heart failure (Multi)- Primary Chronic systolic heart failure Persistent atrial fibrillation (Multi) Atrial fibrillation Nonrheumatic aortic valve stenosis Pulmonary hypertension (Multi) Other chronic pulmonary heart diseases History of transcatheter aortic valve replacement (TAVR) Primary hypertension Unspecified essential hypertension Hypercholesteremia Pure hypercholesterolemia BMI 30.0-30.9,adult Bradycardia Other specified cardiac dysrhythmias Dilated cardiomyopathy (Multi) Other primary cardiomyopathies Edema, unspecified type documented in this encounter [facility] Work Phone: Evaluation note* Diagnosis Aortic stenosis- Primary Aortic valve disorders Severe aortic stenosis Aortic valve disorders Iron deficiency anemia, unspecified iron deficiency anemia type Aortic stenosis Aortic valve disorders Aortic stenosis, severe S/P TAVR (transcatheter aortic valve replacement) Nonrheumatic aortic valve stenosis Severe aortic stenosis Aortic valve disorders Persistent atrial fibrillation (Multi) Atrial fibrillation Other specified anemias HFrEF (heart failure with reduced ejection fraction) (Multi) documented in this encounter [facility] Work Phone: Evaluation note* Diagnosis Recurrent epistaxis- Primary Chronic anticoagulation Encounter for long-term (current) use of 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s Nasal septal deviation Deviated nasal septum Chronic rhinitis documented [facility] Diagnosis Nasal septal deviation- Primary Deviated nasal septum Chronic anticoagulation Encounter for long-term (current) use of 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s Recurrent epistaxis documented in this encounter [facility]* Diagnosis Chronic systolic heart failure- Primary Single vessel coronary artery disease Coronary atherosclerosis of unspecified type of vessel, [place] or graft Severe aortic stenosis Aortic valve disorders Pulmonary hypertension (Multi) Other chronic pulmonary heart diseases Persistent atrial fibrillation (Multi) Atrial fibrillation Nonrheumatic aortic valve stenosis Hypercholesteremia Pure hypercholesterolemia Primary hypertension Unspecified essential hypertension History of transcatheter aortic valve replacement (TAVR) Bradycardia Other specified cardiac dysrhythmias Abnormal ECG Nonspecific abnormal electrocardiogram (ECG) (EKG) 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 Shortness of breath Former smoker Personal history of tobacco use, presenting hazards to health BMI 28.0-28.9,adult documented in this encounter [facility] Work Phone: Evaluation note* Diagnosis S/P TAVR (transcatheter aortic valve replacement)- Primary Chronic kidney disease, stage 3b (Multi) documented in this encounter [facility] Work Phone: Hospital Discharge instructions No data available for this section [facility] [place] [facility] Discharge instructions Additional Instructions DISCHARGE INSTRUCTIONS FOR PERMANENT PACEMAKER AND IMPLANTABLE CARDIOVERTER DEFIBRILLATOR (ICD) INSTRUCTIONS 1. Incision should be kept clean and dry. Please notify us if the site becomes red, swollen, develops drainage, or if you begin having a fever or chills before your 1 week appointment. 2. May shower- avoid running water directly on your incision. 3. Do NOT stop antibiotics. If you have problems with them, please call. 4. Call with any symptoms of dizziness, lightheadedness, or passing out. 5. You may use the involved arm but you must avoid reaching backwards with the involved arm for [address] to [address] your pacemaker/ICD implant card in your wallet/purse to carry with you at all times. You will receive this card in 6-8 weeks by mail. 7. You may resume driving in 2 weeks. 8. Continue all your home medications and the prescribed antibiotics per the medication reconciliation form. APPOINTMENT: 1. Office visit with nurse for incision check in the [facility] Office on 03/23/2023 at 10:30am. 2. Chest x-ray to be done the same day as your device check at [facility] on 06/17/2023. 3. Pacemaker/ICD clinic appointment at [facility] on 06/17/2023 at 1:30pm. 4. Office visit with Dr. Pinedo at the [facility] Office on 05/29/2023 at 1:00pm. [][facility] Work Phone: Hospital Discharge instructions Additional Instructions Please wear your home oxygen at 3l at rest and increase it to 6l with any activity. DISCHARGE INSTRUCTIONS FOR CARDIAC PROPERTY INSURANCE CLAIMS EXAMINER PROCEDURE: Heart Cath The following instructions have been prepared to help you care for yourself, or be cared for upon your return home. 1. You were given conscious sedation. Do not operate a vehicle, power tools, make important decisions, or drink alcohol for 24 hours. You might be drowsy or light headed. Return to the Emergency Room if you have trouble breathing, walking or nausea and vomiting. 2. FOR BLEEDING: Apply continuous pressure to the site and call 911. 3. Operative Site Care: Keep the dressing clean and dry. You may change the dressing only if soiled or wet. You may remove the dressing the following morning. You may wash over the puncture site in the shower. If the puncture site is at the wrist no soaking for 3 days. Some bruising or slight swelling may be present. -Signs of infection are redness, warmth, swelling, getting more sore, colored drainage, fever or chills. -Should the arm or leg become cold, numb, blue or white, call the lodging facilities attendant immediately. 4. ACTIVITY: You are advised to go directly home from the hospital. Restrict your activities for the rest of the day. Resume light or normal activities tomorrow. Do not engage in any activity that will stress the puncture site. Avoid heavy lifting (over 15 lbs.), straining or bending at the catheter site for 48 hours after discharge. If the puncture site is at the wrist do not manipulate wrist for 24 hours and no lifting more than 3 lbs for 3 days. 5. DIET:You may eat your regular diet when you desire. 6. MEDICATIONS: Resume your daily prescription schedule. Prescriptions may be sent with you if needed. Use as directed. When taking pain medications, you may experience dizziness or drowsiness. Do not drink alcohol or drive when taking pain medications. 7. If you should experience episodes of angina e.g. chest discomfort, heaviness, tightness, pressure, burning, with or without radiation to the neck, jaws, arms, or back- Use 1 Nitrostat under your tongue every 5-10 minutes, and up to 3 tablets. If no relief- Call 911 and go to the nearest Emergency Room. -Notify the office for recurrent angina, chest pain or other concerns. You may NOT drive yourself home! Follow the medication instructions provided on your discharge. If the dosages and instructions on this sheet differ from the dosage and instructions on the bottle, follow the instructions on the bottle. [facility] is not responsible for incorrect prescription information provided by the patient during their visit. Do not stop your medications without consulting your health care provider. Please take the list with you to your next doctor's appointment.[facility] Work Phone: Hospital Discharge instructions Additional Instructions DISCHARGE INSTRUCTIONS FOR UPPER ENDOSCOPY WHAT TO EXPECT: - You may feel full, gassy or cramping after your procedure. In some cases, this may be from a few hours to a day. Walking may help relieve the discomfort. - Your throat may feel sore today from the scope that the doctor passed through your throat to visualize your stomach. Take a throat lozenge or suck on ice to ease the discomfort. - You may notice some streaks of blood in your sputum if the doctor has taken a biopsy. - You should begin to recover from anesthesia within 1 hour of the procedure, however may feel groggy for the next 24 hours. DO's AND DON'Ts: - Call your doctor right away if you have a hard abdomen, severe pain, vomiting or if you cough up large amounts of blood. - Call your doctor if you develop any rashes, hives or difficulty breathing. - If you take 81 mg aspirin for your heart it is safe to resume this medication. - If you take other blood thinner medications your doctor will instruct you when these can safely be resumed. - Do NOT drive for 24 hours. - Do NOT operate machinery such as power tools, lawn mowers, snow blowers, sewing machines, etc. for 24 hours. - Avoid alcoholic beverages and drugs for allergies, nerves, or sleep. - Do NOT stay alone. Do NOT leave your child unattended. - Do NOT make important personal or business decisions or sign any legal documents. - Eat solid foods and drink liquids in smaller amounts than usual until normal appetite returns. If you should experience an upset stomach, liquids high in sugar content (soda, Abdulkadir-Aid, non-acid juices) are recommended. - Do NOT smoke. - Do take it easy today. You need not stay in bed, but avoid strenuous activities such as jogging or working out. DISCHARGE INSTRUCTIONS FOR COLONOSCOPY WHAT TO EXPECT: - You may feel full, gassy or cramping after your procedure. In some cases, this may be from a few hours to a day. Walking may help relieve the discomfort. - If you have polyp(s) removed you may note some minor bloody discharge after your first bowel movements. - You should begin to recover from anesthesia within 1 hour of the procedure, however may feel groggy for the next 24 hours. DO's AND DON'Ts: - Call your doctor right away if you have a hard abdomen, sever pain, are passing lots of bright red blood or clots. - Call your doctor if you develop any rashes, hives or difficulty breathing. - Let your doctor know if you have not had a bowel movement by 3 days after your procedure. - If you take 81 mg aspirin for your heart it is safe to resume this medication. - If you take other blood thinner medications your doctor will instruct you when these can safely be resumed. - Do NOT drive for 24 hours. - Do NOT operate machinery such as power tools, lawn mowers, snow blowers, sewing machines, etc. for 24 hours. - Avoid alcoholic beverages and drugs for allergies, nerves, or sleep. - Do NOT stay alone. Do NOT leave your child unattended. - Do NOT make important personal or business decisions or sign any legal documents. - Eat solid foods and drink liquids in smaller amounts than usual until normal appetite returns. If you should experience an upset stomach, liquids high in sugar content (soda, Abdulkadir-Aid, non-acid juices) are recommended. - You can resume normal activities tomorrow. FOLLOW UP & RECOMMENDATIONS: -Please call the office and make a follow up appointment to see me if symptoms persist -Notify the doctor if you have any problems. - No repeat colonoscopy due to age and comorbidities -Follow up with PCP. - Office number [phone]. [facility] Work Phone: Progress note No data available for this section General Surgery [place] Reason for referral (narrative)* Consultation (Routine) - Authorized Specialty Diagnoses / Procedures Referred By Contac t Referred To Contact Cardiology Diagnoses Persistent atrial fibrillation (CMS/HCC) Procedures Follow Up In Cardiology Joby Pinedo MD [address] [facility] 2, [address] [place] [address] Joby Pinedo MD [address] [facility] 2, [address] [address] Referral ID Status Reason Start Date Expiration Date V isits Requested Visits Authorized [id number] Authorized 06/23/2023 06/22/2024 1 1 * Cardiac Stress Testing (Routine) - Pending Review Specialty Diagnoses / Procedures Referred By Fátima t Referred To Contact Radiology Diagnoses Shortness of breath Procedures Nuclear Stress Test CHG MYOCARDIAL SPECT MULTIPLE STUDIES Joby Pinedo MD [address] [facility] 2, [address] [address] Referral ID Status Reason Start Date Expiration Date V isits Requested Visits Authorized [id number] Pending Review 06/23/2023 06/22/2024 5 5 [facility] Work Phone: Reason for referral (narrative)* Consultation (Routine) - Authorized Specialty Diagnoses / Procedures Referred By Contac t Referred To Contact Cardiology Diagnoses Nonrheumatic aortic valve stenosis Edema, unspecified type Procedures Follow Up In Cardiology Joby Pinedo MD [address] [facility] 2, [address] [address] Joby Pinedo MD [address] [facility] 2, [address] [address] Referral ID Status Reason Start Date Expiration Date V isits Requested Visits Authorized [id number] Authorized 10/13/2023 10/12/2024 1 1 * CV Imaging (Routine) - Pending Review Specialty Diagnoses / Procedures Referred By Contac t Referred To Contact Cardiology Diagnoses Nonrheumatic aortic valve stenosis Pulmonary hypertension (Multi) Procedures Transthoracic Echo Complete [place] ECHO TTHRC R-T 2D W/WOM-MODE COMPL SPEC&COLR D Joby Pinedo MD [address] [facility] 2, [address] [address] Referral ID Status Reason Start Date Expiration Date Visits Requested Visits Authorized [id number] Pending Review Perform Procedure 10/13/2023 10/12/2024 1 1 [facility] Work Phone: Reyaud for referral (narrative)No reason for referral information [facility] Work Phone: Reason for visit Narrative* CV Imaging (Routine) - Authorized Specialty Diagnoses / Procedures Referred By Contac t Referred To Contact Cardiology Diagnoses Aortic stenosis, severe S/P TAVR (transcatheter aortic valve replacement) Procedures Transthoracic echo (TTE) complete [place] ECHO TTHRC R-T 2D W/WOM-MODE COMPL SPEC&COLR D Andra Molina, [employer]AR[employer]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-GREASE MAN [address] [place] [address] Phone: tel: fax: Referral ID Status Reason Start Date Expiration Date Visits Requested Visits Authorized [id number] Authorized Perform Procedure 11/12/2023 11/11/2024 1 1 [facility] Work Phone: Glory for visit Narrative* Auth/Cert Specialty Diagnoses / Procedures Referred By Fátima t Referred To Contact Diagnoses Aortic stenosis, severe Procedures na [facility] Service [address] [address] [place] [address] [place] [address] [place] [address] Referral ID Status Reason Start Date Expiration Date Visits Re quested Visits Authorized [id number] 1 1 [facility] Work Phone: Advance Directives No Advanced Directives Records Found Advance Directive Response Recorded Date/ Time Advance Directives No November 2:59pm Advance Directive Response Recorded Date/ Time Advance Directives No November 1:59pm Documents on File Type Date Recorded Patient Recordist Chief Expl anation Living Will 11/15/2023 Date Activated Date Inactivated Comments 11/01/2023 4:50 PM Question Answer Comments Plan of Care: Code Status Discussion Completed Decision Maker: Patient Healthcare Agents on File Name Relationship Healthcare Agent Relationship Communication Lilliana Bullard Daughter First Altern ate Health Care Agent [email or web address] Paddy Mann Daughter Second Alternate Health Care Agent Healthcare Agents on File Name Relationship Healthcare Agent Relationship Communication Lilliana Bullard Daughter First Altern ate Health Care Agent [email or web address] Paddy Mann Daughter Second Alternate Health Care Agent Healthcare Agents on File Name Relationship Healthcare Agent Relationship Communication Lilliana Bullard Daughter First Altern ate Health Care Agent [email or web address] Paddy Mann Daughter Second Alternate Health Care Agent Healthcare Agents on File Name Relationship Healthcare Agent Relationship Communication Lilliana Bullard Daughter First Altern ate Health Care Agent [email or web address] Paddy Mann Daughter Second Alternate Health Care Agent Advance Directive Response Recorded Date/ Time Advance Directives No October 18 10:37am Assessments No Assessments Information Available Chief Complaint and Reason for Visit Chief Complaint M05.79 M15.0 Z79.899 Chief Complaint m05.79 m15.0 Z79.899 Chief Complaint olecranon bursitis R elbow Chief Complaint M05.7 M15.0 Z79.899 Chief Complaint M05.79 M15.0 Z79.899 SSS Chief Complaint M05.79 M15.0 Z79.899 SSS SSS Reason for Visit A-fib Heart block, AV Chief Complaint SSS Chief Complaint SSS R06.02 Chief Complaint SSS R06.02 trouble breathing Reason for Visit A-fib Acute exacerbation of CHF (congestive heart failure) Heart block, AV Hypercholesteremia Hypertension Hypothyroidism Rheumatoid arthritis Chief Complaint SSS R06.02 trouble breathing Reason for Visit A-fib Acute exacerbation of CHF (congestive heart failure) Acute systolic (congestive) heart failure Heart block, AV Hypercholesteremia Hypertension Hypokalemia Hypothyroidism Rheumatoid arthritis Severe aortic stenosis Sick sinus syndrome Chief Complaint R06.02 trouble breathing i35.0 Reason for Visit A-fib Hypercholesteremia Hypertension Hypokalemia Hypothyroidism Rheumatoid arthritis Severe aortic stenosis Sick sinus syndrome Acute exacerbation of CHF (congestive heart failure) Acute systolic (congestive) heart failure Heart block, AV Chief Complaint trouble breathing i35.0 Difficulty Breathing Reason for Visit A-fib Hypercholesteremia Hypertension Hypokalemia Hypothyroidism Rheumatoid arthritis Severe aortic stenosis Sick sinus syndrome Acute exacerbation of CHF (congestive heart failure) Acute systolic (congestive) heart failure Heart block, AV A-fib Acute anemia Acute hyponatremia Acute kidney injury superimposed on CKD MAYLIN (acute kidney injury) Anemia Chronic systolic dysfunction of left ventricle GI (gastrointestinal bleed) Severe aortic stenosis Chief Complaint trouble breathing i35.0 Difficulty Breathing Difficulty Breathing Difficulty Breathing Difficulty Breathing Reason for Visit A-fib Hypercholesteremia Hypertension Hypokalemia Hypothyroidism Rheumatoid arthritis Severe aortic stenosis Sick sinus syndrome Acute exacerbation of CHF (congestive heart failure) Acute systolic (congestive) heart failure Heart block, AV A-fib Acute anemia Acute hyponatremia Acute kidney injury superimposed on CKD Acute on chronic anemia Acute on chronic systolic (congestive) heart failure MAYLIN (acute kidney injury) Anemia Aortic stenosis Chronic systolic dysfunction of left ventricle GI (gastrointestinal bleed) Hyponatremia Pulmonary hypertension Severe aortic stenosis Chief Complaint Difficulty Breathing Difficulty Breathing Difficulty Breathing Difficulty Breathing [facility] Reason for Visit Anemia Aortic stenosis Severe aortic stenosis Acute anemia Acute hyponatremia Acute kidney injury superimposed on CKD Acute on chronic anemia Acute on chronic systolic (congestive) heart failure MAYLIN (acute kidney injury) Chief Complaint Admit Date [facility] April 07, 2024 2 :13pm Chief Complaint Admit Date [facility] April 07, 2024 2 :13pm M05.79 M15.0 Z79.899 April 12, 2024 11:14am Chief Complaint Admit Date M05.79 M15.0 Z79.899 April 12, 2024 11:14am M05.79 M15.0 Z79.899 June 08, 2024 10 :18am SSS July 07, 2024 11: 00am SSS July 07, 2024 11: 18am Chief Complaint Admit Date M05.79 M15.0 Z79.899 June 08, 2024 10 :18am SSS July 07, 2024 11: 00am SSS July 07, 2024 11: 18am Chief Complaint Admit Date soof August 08, 2024 10:59 am [facility] October 06, 2024 9:00 am [facility] October 06, 2024 11:0 0am Chief Complaint Admit Date [facility] October 06, 2024 9:00 am [facility] October 06, 2024 11:0 0am hx colon ca/hx of colon resection/wgt lo ss/anemia November 13, 2024 6:29am Summary Purpose Family History No Family History Records Found Relationship Condition Age at Onset Recorded Date/T louise father Diabetes mellitus Unknown sister Malignant neoplasm Unknown brother Heart failure Unknown Relationship Condition Age at Onset Recorded Date/T louise father Diabetes mellitus Unknown sister Malignant neoplasm Unknown brother Heart failure Unknown Not Specified Malignant neoplasm Unknown Malignant neoplasm of breast Unknown sister Unknown Malignant neoplasm Unknown Unknown Relationship Condition Age at Onset Recorded Date/T louise father Diabetes mellitus Unknown sister Malignant neoplasm Unknown brother Heart failure Unknown mother Malignant neoplasm Unknown Malignant neoplasm of breast Unknown sister Unknown Malignant neoplasm Unknown Unknown Relationship Condition Age at Onset Recorded Date/T louise father Diabetes mellitus Unknown sister Malignant neoplasm Unknown brother Heart failure Unknown mother Malignant neoplasm of breast Unknown Malignant neoplasm Unknown sister Unknown Reason for Referral Specialty Diagnoses / Procedures Referred By Contac t Referred To Contact Cardiology Diagnoses Aortic stenosis, severe S/P TAVR (transcatheter aortic valve replacement) Procedures Transthoracic echo (TTE) complete [place] ECHO TTHRC R-T 2D W/WOM-MODE COMPL SPEC&COLR D Andra Molina, [employer]AR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-[employer] MAN [address] [id number] Referral ID Status Reason Start Date Expiration Date Visits Requested Visits Authorized [id number] Authorized Perform Procedure 11/12/2023 11/11/2024 1 1 Specialty Diagnoses / Procedures Referred By Contac t Referred To Contact Radiology Diagnoses Nonrheumatic aortic valve stenosis Procedures CT TAVR low contrast chest abdomen pelvis Medardo Tsai, EAR[employer]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-[employer] MAN [address] [place] [address] Referral ID Status Reason Start Date Expiration Date Visits Requested Visits Authorized [id number] Pending Review Perform Procedure 09/23/2023 09/22/2024 1 1 Specialty Diagnoses / Procedures Referred By Contac t Referred To Contact Radiology Diagnoses Shortness of breath Procedures Nuclear Stress Test CHG MYOCARDIAL SPECT MULTIPLE STUDIES Joby Pinedo MD [address] [facility] 2, [address] [place] [address] Referral ID Status Reason Start Date Expiration Date V isits Requested Visits Authorized [id number] Pending Review 06/23/2023 06/22/2024 5 5 Specialty Diagnoses / Procedures Referred By Contac t Referred To Contact Diagnoses Persistent atrial fibrillation (CMS/HCC) Procedures ECG 12 Lead Joby Pinedo MD [address] [facility] 2, [address] [place] [address] Referral ID Status Reason Start Date Expiration Date V isits Requested Visits Authorized [id number] Pending Review 02/23/2023 02/23/2024 1 1 Specialty Diagnoses / Procedures Referred By Contac t Referred To Contact Cardiology Diagnoses Persistent atrial fibrillation (CMS/HCC) Procedures Follow Up In Cardiology Joby Pinedo MD [address] [facility] 2, [place] [id number] Joby Pinedo MD [address] [place] [address] 2, [place] [phone] Referral ID Status Reason Start Date Expiration Date V isits Requested Visits Authorized [id number] Authorized 02/23/2023 02/23/2024 1 1 Specialty Diagnoses / Procedures Referred By Fátima owusu Referred To Contact Cardiology Diagnoses Persistent atrial fibrillation (CMS/HCC) Bradycardia Chronic systolic heart failure (CMS/HCC) Hypertension, unspecified type Procedures Transthoracic Echo (TTE) Complete WY ECHO TRANSTHORC R-T 2D W/WO M-MODE REC F-UP/LMTD WY DOP ECHOCARD COLOR FLOW VELOCITY MAPPING WY DOP ECHOCARD PULSE WAVE W/SPECTRAL F-UP/LMTD STD Joby Pinedo MD [address] [place] [address], [place] [id number] Referral ID Status Reason Start Date Expiration Date Visits Requested Visits Authorized [id number] Pending Review Perform Procedure 02/23/2024 1 1 Additional Source Comments Goals (unrecognized section and content) Goals may be documented in a n alternate sectionGoals may be documented in an alternate sectionGoals may be documented in an alternate sectionGoals may be documented in an alternate section No data available for this sectionGoals may be documented in an alternate section No data available for this sectionGoals may be documented in an alternate sectionGoals may be documented in an alternate sectionGoals may be documented in an alternate sectionGoals may be documented in an alternate sectionGoals may be documented in an alternate sectionGoals may be documented in an alternate sectionGoals may be documented in an alternate sectionGoals may be documented in an alternate sectionGoals may be documented in an alternate sectionGoals may be documented in an alternate sectionGoals may be documented in an alternate sectionGoals may be documented in an alternate section (unrecognized sect ion and content) No Status Records FoundNo Status Records FoundNo Status Records FoundNo Status Records FoundNo Status Records FoundNo Status Records FoundNo Status Records FoundNo Status Records FoundNo Status Records Found INFORMATION SOURCE (unrecogn ized section and content) DATE CREATED AUTHOR 05/01/2021 [facility] DATE CREATED AUTHOR AUTHOR'S ORGANIZ ATION 07/16/2022 [facility] DATE CREATED AUTHOR AUTHOR'S ORGANIZ ATION 07/22/2022 [facility] DATE CREATED AUTHOR AUTHOR'S ORGANIZ ATION 11/15/2023 [facility] DATE CREATED AUTHOR AUTHOR'S ORGANIZ ATION 01/31/2024 [facility] DATE CREATED AUTHOR AUTHOR'S ORGANIZ ATION 06/21/2024 [facility] EPIC DATE CREATED AUTHOR AUTHOR'S ORGANIZ ATION 08/31/2024 [facility] DATE CREATED AUTHOR AUTHOR'S ORGANIZ ATION 11/11/2024 [facility] DATE CREATED AUTHOR AUTHOR'S ORGANIZ ATION 11/19/2024 [facility] Care Teams (unrecognized sec tion and content) Team Status: Active Member Role Status Dates Al Raymundo JR DO Primary Care Provider Active Team Status: Active Member Role Status Dates Al Raymundo JR DO Primary Care Provider Active Start: October 06, 2024 Joby Pinedo MD Other Provider Active St art: October 06, 2024 Kana Mcdonough MD Attending Provider Active Start: October 06, 2024 Team Status: Inactive Member Role Status Dates Al Raymundo JR DO Primary Care Provider Active Start: October 06, 2024 End: October 06, 2024 Joby Pinedo MD Attending Provider Active Start: October 06, 2024 End: October 06, 2024 Team Status: Active Member Role Status Dates Al Raymundo JR DO Primary Care Provider Active Start: November 13, 2024 Shabana Gutierrez DO Attending Provider Active St art: November 13, 2024 Shabana Gutierrez , DO Other Provider Active Start: November 13, 2024 Team Status: Inactive Member Role Status Dates Al Raymundo JR DO Primary Care Provider Active Start: April 12, 2024 End: April 12, 2024 Floyd Bolton MD Attending Provider Active St art: April 12, 2024 End: April 12, 2024 Team Status: Inactive Member Role Status Dates Al Raymundo JR DO Primary Care Provider Active Start: June 08, 2024 End: June 08, 2024 Floyd Bolton MD Attending Provider Active St art: June 08, 2024 End: June 08, 2024 Team Status: Active Member Role Status Dates Al Raymundo JR DO Primary Care Provider Active Start: July 07, 2024 Joby Pinedo MD Other Provider Active St art: July 07, 2024 Kana Mcdonough MD Attending Provider Active Start: July 07, 2024 Team Status: Inactive Member Role Status Dates Al Raymundo JR DO Primary Care Provider Active Start: July 07, 2024 End: July 07, 2024 Joby Pinedo MD Attending Provider Active Start: July 07, 2024 End: July 07, 2024 Team Status: Active Member Role Status Dates Al Raymundo JR DO Primary Care Provider Active Start: April 07, 2024 Joby Pinedo MD Other Provider Active St art: April 07, 2024 Kana Mcdonough MD Attending Provider Active Start: April 07, 2024 Team Status: Inactive Member Role Status Dates Solomon Bolton MD Attending Provider Active Team Status: Inactive Member Role Status Dates Kelvin Fu Jr, DO Attending Provider Active Team Status: Inactive Member Role Status Dates Al Raymundo JR DO Primary Care Provider Active Solomon Bolton MD Attending Provider Active Team Status: Active Member Role Status Dates PHYSICIAN NO FAMILY Primary Care Provider Active Team Status: Inactive Member Role Status Dates PHYSICIAN NO FAMILY Primary Care Provider Active Solomon Bolton MD Attending Provider Active Team Status: Inactive Member Role Status Dates PHYSICIAN NO FAMILY Primary Care Provider Active Floyd Bolton MD Attending Provider Active Residue Furnace Operator Relationship Specialty Start Date End Date Al Raymundo DO [address] [place] [address] PCP - General Internal Medicine 02/05/23 Residue Furnace Operator Relationship Specialty Start Date End Date Al Raymundo DO [address] [place] [address] PCP - General Internal Medicine 02/05/23 Team Status: Inactive Member Role Status Dates Arnulfo Carter MD Attending Provider Active Al Raymundo JR DO Primary Care Provider Active Residue Furnace Operator Relationship Specialty Start Date End Date Al Raymundo DO PCP - General Internal Medicine 02/05/23 Team Status: Inactive Member Role Status Dates Joby Pinedo MD Attending Provider Active Start: June 23, 2023 End: June 23, 2023 Al Raymundo JR DO Primary Care Provider Active Start: June 23, 2023 End: June 23, 2023 Residue Furnace Operator Relationship Specialty Start Date End Date Al Raymundo DO [address] [place] [address] PCP - General Internal Medicine 07/01/23 Residue Furnace Operator Relationship Specialty Start Date End Date Al Raymundo DO [address] [place], [place] [id number] PCP - General Internal Medicine 07/01/23 Residue Furnace Operator Relationship Specialty Start Date End Date Al Raymundo DO [address] [facility] [place] [address] PCP - General Internal Medicine 07/01/23 Team Status: Inactive Member Role Status Dates Al Raymundo JR DO Primary Care Provider Active Start: July 07, 2023 End: July 07, 2023 Joby Pinedo MD Attending Provider Active Start: July 07, 2023 End: July 07, 2023 Team Status: Active Member Role Status Dates Al Raymundo JR DO Primary Care Provider Active Start: September 09, 2023 Manny Perez MD Emergency Provider Active Start: September 09, 2023 Astrid Osman DO Admit Provider, Atte nding Provider Active Start: September 09, 2023 Shana Gamez RN Other Provider Active Star t: September 09, 2023 Erin Reyna DO Other Provider Active Start : September 09, 2023 Gabe Bowens MD Other Provider Active Start: September 09, 2023 Arnulfo Carter MD Other Provider Active Start: September 09, 2023 Joby iPnedo MD Other Provider Active St art: September 09, 2023 Al Uriostegui MD Other Provider Active Start: September 09, 2023 Sherry Aldrich APRN Other Provider Active Start : September 09, 2023 Destini Rae MD Other Provider Active Start: J une 2023 Genoveva Calderón MD Other Provider Active Start: September 09, 2023 Tano Law MD Other Provider Active Start: J une 2023 Concetta Horta , [facility]- Other Provider Active Sta rt: September 09, 2023 Team Status: Inactive Member Role Status Dates Al Raymundo JR DO Primary Care Provider Active Start: September 09, 2023 End: September 15, 2023 Manny Perez MD Emergency Provider Active Start: September 09, 2023 End: September 15, 2023 Astrid Osman DO Admit Provider Active Start: September 09, 2023 End: September 15, 2023 Shana Gamez RN Other Provider Active Star t: September 09, 2023 End: September 15, 2023 Erin Reyna DO Other Provider Active Start : September 09, 2023 End: September 15, 2023 Gabe Bowens MD Other Provider Active Start: September 09, 2023 End: September 15, 2023 Arnulfo Carter MD Other Provider Active Start: September 09, 2023 End: September 15, 2023 Joby Pinedo MD Other Provider Active St art: September 09, 2023 End: September 15, 2023 Al Uriostegui MD Other Provider Active Start: September 09, 2023 End: September 15, 2023 Sherry Aldrich APRN Other Provider Active Start : September 09, 2023 End: September 15, 2023 Destini Rae MD Other Provider Active Start: J 2023 End: September 15, 2023 Genoveva Calderón MD Other Provider Active Start: September 09, 2023 End: September 15, 2023 Tano Law MD Other Provider Active Start: J une 2023 End: September 15, 2023 Concetta Horta , [facility]- Other Provider Active Sta rt: September 09, 2023 End: September 15, 2023 Misael Gonzales MD Attending Provider Active Start: September 09, 2023 End: September 15, 2023 Team Status: Inactive Member Role Status Dates Al Raymundo JR DO Primary Care Provider Active Start: September 22, 2023 End: September 22, 2023 POP Lyle RN AIRPLANE MECHANIC APPRENTICE-C Attending Provider Active Start: September 21 End: September 22, 2023 Team Status: Active Member Role Status Dates Al Raymundo JR DO Primary Care Provider Active Start: October 19, 2023 Wander Davidson PA-C Emergency Provider Active Start: October 19, 2023 Mary Colin MD Admit Provider, A ttending Provider Active Start: October 19, 2023 Valerio Saeed MD Other Provider Active Start: Mary gutierrez 2023 Ananth Wilde MD Other Provider Active Start : October 19, 2023 Joby Pinedo MD Other Provider Active St art: October 19, 2023 Team Status: Inactive Member Role Status Dates Al Raymundo JR DO Primary Care Provider Active Start: October 19, 2023 End: October 26, 2023 Wander Davidson PA-C Emergency Provider Active Start: October 19, 2023 End: October 26, 2023 Mary Colin MD Admit Provider Active Sta rt: October 19, 2023 End: October 26, 2023 Joby Pinedo MD Other Provider Active St art: October 19, 2023 End: October 26, 2023 Ananth Wilde MD Other Provider Active Start : October 19, 2023 End: October 26, 2023 Valerio Saeed MD Other Provider Active Start: Ju ly 2023 End: October 26, 2023 William Smalls DO Attending Provider Active St art: October 19, 2023 End: October 26, 2023 Team Status: Active Member Role Status Dates Al Raymundo JR DO Primary Care Provider Active Start: October 20, 2023 Wander Davidson PA-C Emergency Provider Active Start: October 20, 2023 Mary Colin MD Admit Provider, Other Provider Active Start: October 20, 2023 Joby Pinedo MD Other Provider Active St art: October 20, 2023 Ananth Wilde MD Other Provider Active Start : October 20, 2023 Valerio Saeed MD Attending Provider, Other Provider Active Start: October 20, 2023 Team Status: Active Member Role Status Dates Al Raymundo JR DO Primary Care Provider Active Start: October 20, 2023 Wander Davidson PA-C Emergency Provider Active Start: October 20, 2023 Mary Colin MD Admit Provider, Other Provider Active Start: October 20, 2023 Joby Pinedo MD Other Provider Active St art: October 20, 2023 Ananth Wilde MD Attending Provider, Other Provider Active Start: October 20, 2023 Valerio Saeed MD Other Provider Active Start: Ju ly 2023 Team Status: Active Member Role Status Dates Al Raymundo JR DO Primary Care Provider Active Start: October 23, 2023 Wander Davidson PA-C Emergency Provider Active Start: October 23, 2023 Mary Colin MD Admit Provider, O ther Provider Active Start: October 23, 2023 Joby Pinedo MD Other Provider Active St art: October 23, 2023 Ananth Wilde MD Other Provider Active Start : October 23, 2023 Valerio Saeed MD Other Provider Active Start: Ju ly 2023 Kelvin Qureshi MD Attending Provider Active Start: October 22 Team Status: Active Member Role Status Dates Al Raymundo JR DO Primary Care Provider Active Start: January 06, 2024 Joby Pinedo MD Other Provider Active St art: January 06, 2024 Kana Mcdonough MD Attending Provider Active Start: January 06, 2024 Residue Furnace Operator Relationship Specialty Start Date End Date Al Raymundo DO [facility] [place] [address] PCP - General Internal Medicine 07/01/23 Residue Furnace Operator Relationship Specialty Start Date End Date Al Raymundo DO [address] [place] [address] PCP - General Internal Medicine 07/01/23 Residue Furnace Operator Relationship Specialty Start Date End Date Al Ramyundo DO [facility] [place] [address] PCP - General Internal Medicine 07/01/23 Residue Furnace Operator Relationship Specialty Start Date End Date Al Raymundo DO [address] [place] [address] PCP - General Internal Medicine 07/01/23 Residue Furnace Operator Relationship Specialty Start Date End Date Al Raymundo DO [facility] [place] [address] PCP - General Internal Medicine 07/01/23 Residue Furnace Operator Relationship Specialty Start Date End Date Al Raymundo MD [facility] [place], [place] [id number] PCP - General Internal Medicine 07/24/23 Dewey Chamorro DO [address] [place] [address] Otolaryngology 08/24/23 Residue Furnace Operator Relationship Specialty Start Date End Date Al Raymundo MD [address] [place] [address] PCP - General Internal Medicine 07/24/23 Dewey Chamorro DO [address] [place] [address] Otolaryngology 08/24/23 Residue Furnace Operator Relationship Specialty Start Date End Date Al Raymundo MD [address] [place] [address] PCP - General Internal Medicine 07/24/23 Dewey Chamorro DO [address] [place] [address] Otolaryngology 08/24/23 Residue Furnace Operator Relationship Specialty Start Date End Date Al Raymundo MD [address] [place] [address] PCP - General Internal Medicine 07/24/23 Dewey Chamorro DO [address] [place] [address] Otolaryngology 08/24/23 Residue Furnace Operator Relationship Specialty Start Date End Date Al Raymundo DO [address] [place] [address] PCP - General Internal Medicine 07/01/23 Team Status: Inactive Member Role Status Dates Al Raymundo JR DO Primary Care Provider Active Start: August 08, 2024 End: August 08, 2024 Floyd Bolton MD Attending Provider Active art: August 08, 2024 End: August 08, 2024 Residue Furnace Operator Relationship Specialty Start Date End Date Breanne Al JungDO [address] [place] [address] PCP - General Internal Medicine 07/01/23 Reason for Visit (unrecogniz ed section and content) Reason Comments Establish Care Breanne-bradycardia,a bn,holter Specialty Diagnoses / Procedures Referred By Contac t Referred To Contact Diagnoses Persistent atrial fibrillation (CMS/HCC) Procedures ECG 12 Lead Joby Pinedo MD [address] [place] [address] [facility] [address], [address] [address] Referral ID Status Reason Start Date Expiration Date V isits Requested Visits Authorized [id number] Pending Review 02/23/2023 02/23/2024 1 1 Specialty Diagnoses / Procedures Referred By Contac t Referred To Contact Cardiology Diagnoses Persistent atrial fibrillation (CMS/HCC) Bradycardia Chronic systolic heart failure (CMS/HCC) Hypertension, unspecified type Procedures Transthoracic Echo (TTE) Complete [place] ECHO TRANSTHORC R-T 2D W/WO M-MODE REC F-UP/LMTD W[place] DOP ECHOCARD COLOR FLOW VELOCITY MAPPING [place] DOP ECHOCARD PULSE WAVE W/SPECTRAL F-UP/LMTD STD Joby Pinedo MD [address] [facility] [address], [address] [address] Referral ID Status Reason Start Date Expiration Date Visits Requested Visits Authorized [id number] Pending Review Perform Procedure 3 02/23/2024 1 1 Reason Comments Follow-up 15 wk PC Insert Specialty Diagnoses / Procedures Referred By Contac t Referred To Contact Cardiology Diagnoses Bradycardia Cardiac pacemaker Procedures Follow Up In Cardiology Joby Pinedo MD [address], [address] [address] Joby Pinedo MD [address], [address] [address] Referral ID Status Reason Start Date Expiration Date V isits Requested Visits Authorized [id number] Authorized 03/02/2023 03/01/2024 1 1 Specialty Diagnoses / Procedures Referred By Contac t Referred To Contact Radiology Diagnoses Shortness of breath Procedures Nuclear Stress Test CHG MYOCARDIAL SPECT MULTIPLE STUDIES Joby Pinedo MD [address] [place] [address] 2, [place] [id number] Referral ID Status Reason Start Date Expiration Date V isits Requested Visits Authorized [id number] Pending Review 06/23/2023 06/22/2024 5 5 Reason Comments Follow-up 3m with ECHO results Specialty Diagnoses / Procedures Referred By Contac t Referred To Contact Cardiology Diagnoses Nonrheumatic aortic valve stenosis Edema, unspecified type Procedures Follow Up In Cardiology Joby Pinedo MD [address] [place] [address] 2, [place] [id number] Phone: tel: fax: Joby Pinedo MD [address] [place] [address] 2, [address] [address] Phone: tel: fax: Referral ID Status Reason Start Date Expiration Date V isits Requested Visits Authorized [id number] Authorized 10/13/2023 10/12/2024 1 1 Specialty Diagnoses / Procedures Referred By Contac t Referred To Contact Radiology Diagnoses Nonrheumatic aortic valve stenosis Procedures CT TAVR low contrast chest abdomen pelvis Medardo Tsai, 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-GREASE MAN [address] [place] [address] Referral ID Status Reason Start Date Expiration Date Visits Requested Visits Authorized [id number] Pending Review Perform Procedure 09/23/2023 09/22/2024 1 1 Reason Comments Hospital Follow-up Specialty Diagnoses / Procedures Referred By Contac t Referred To Contact Cardiology Diagnoses Persistent atrial fibrillation (Multi) Procedures Follow Up In Cardiology Joby Pinedo MD [address] [place] [address] 2, [address] [address] Joby Pinedo MD [address] [place] [address] 2, [address] [address] Referral ID Status Reason Start Date Expiration Date V isits Requested Visits Authorized [id number] Authorized 06/23/2023 06/22/2024 1 1 Reason Comments Epistaxis (Nose Bleed) Nosebleeds / last seen in July Reason Comments Epistaxis (Nose Bleed) 3 week ken[place] noseb kaley Reason Comments Epistaxis (Nose Bleed) 3 week ken[place] Reason Comments Follow-up 6 month with EKG, ch [facility] systolic heart failure Specialty Diagnoses / Procedures Referred By Contac t Referred To Contact Cardiology Diagnoses Chronic systolic heart failure Procedures Follow Up In Cardiology Joby Pinedo MD [address] [place] [address], [place] [id number] Phone: tel: fax: Joby Pinedo MD [address] [place] [address], [address] [address] Phone: tel: fax: Referral ID Status Reason Start Date Expiration Date V isits Requested Visits Authorized [id number] Authorized 01/25/2024 01/24/2025 1 1 Scheduled Active and Recently Administ ered Medications (unrecognized section and content) Medication Order 11/11/2023 11/12/2023 11/13/2023 ceFAZolin (Ancef) 2 g in dextrose (iso) IV 100 mL (COMPLETED) 2 g, intravenous, Administer over 30 Minutes, Once, On Wed11/12/23 at 1000, For 1 dose, Preprocedure, Administer within 60 minutes prior to incision. premix bag, Dosing of this medication varies based on severity of illness. Does this patient have sepsis or concern for sepsis (probable or documented infection plus systemic manifestations of infection)? No, Suspected Indication (Select all that apply): Surgical Prophylaxis, Indications: Surgical Prophylaxis 1030 (New Bag - Provider: Ashish Chavez RN)1100 (Stopped - Provider: Rosita Jimenez RN) cholecalciferol (Vitamin D-3) tablet 5,000 Units 5,000 Units, oral, Daily, First dose on Wed11/02/23 at 0600 0607 (Given - Provider: Lorena Aponte LPN) 0512 (Given - Provider: Lorena Aponte LPN) 0613 (Given - Provider: Joselin Cheatham RN) docusate sodium (Colace) capsule 100 mg 100 mg, oral, 2 times daily, First dose on Wed11/01/23 at 2100, Bowel Regimen - for prevention of constipation Hold for loose stools 09 (Not Given - Provider: Rosita Jimenez RN - Reason: Patient/family refused)2007 (Given - Provider: Lorena Aponte LPN) 09 (Not Given - Provider: Rosita Jimenez RN - Reason: Patient/family refused)2120 (Given - Provider: Joselin Cheatham RN) 09 (Not Given - Provider: Yang Schumacher RN - Reason: Patient/family refused)2100 (Due) finasteride (Proscar) tablet 5 mg 5 mg, oral, Daily, First dose on Wed11/01/23 at 2044, Do not crush, chew, or split. 0923 (Given - Provider: Rosita Jimenez RN) 0812 (Given - Provider: Rosita Jimenez RN) 0835 (Given - Provider: Yang Schumacher RN) folic acid (Folvite) tablet 800 mcg 800 mcg, oral, Daily, First dose on Wed11/01/23 at 2045 0922 (Given - Provider: Rosita Jimenez RN) 0812 (Given - Provider: Rosita Jimenez RN) 0835 (Given - Provider: Yang Schumacher RN) insulin lispro (HumaLOG) injection 0-10 Units 0-10 Units, subcutaneous, 3 times daily (morning, midday, late afternoon), First dose on Wed11/06/23 at 0830, Do not hold when patient is not eating, continue order as scheduled for hyperglycemia management. Insulin Lispro Corrective Scale #2 Hypoglycemia protocol Call LIP unit(s) if Blood Glucose is between 0 - 70 mg/dL 0 unit(s) if Blood glucose is between 71-150 2 unit(s) if Blood glucose is between 151-200 4 unit(s) if Blood glucose is between 201-250 6 unit(s) if Blood glucose is between 251-300 8 unit(s) if Blood glucose is between 301-350 10 unit(s) if Blood glucose is between 351-400 Notify provider unit(s) if Blood Glucose is greater than 400 mg/dL 0800 (Not Given - Provider: Rosita Jimenez RN - Reason: Contraindicated - Comment: [phone] (Given - Provider: Rosita Jimenez RN)1700 (Not Given - Provider: Rosita Jimenez RN - Reason: Contraindicated) 0800 (Not Given - Provider: Rosita Jimenez RN - Reason: NPO)1200 (Not Given - Provider: Rosita Jimenez RN - Reason: Patient not available)1700 (Not Given - Provider: Rosita Jimenez RN - Reason: Contraindicated) 0800 (Not Given - Provider: Yang Schumacher RN - Reason: Order parameters not met)1200 (Not Given - Provider: Yang Schumacher RN - Reason: Order parameters not met)1700 (Due) iron polysaccharides (Nu-Iron,Niferex) capsule 150 mg 150 mg, oral, Daily with evening meal, First dose on Wed11/02/23 at 1700 1737 (Given - Provider: Rosita Jimenez RN) 1742 (Given - Provider: Rosita Jimenez RN) 1700 (Due) levothyroxine (Synthroid, Levoxyl) tablet 100 mcg 100 mcg, oral, User specified (Every Wednesday), First dose on Wed11/07/23 at 0600 levothyroxine (Synthroid, Levoxyl) tablet 50 mcg 50 mcg, oral, User specified (Once per day on Wednesday), First dose on Wed11/02/23 at 0600 0607 (Given - Provider: Lorena Aponte LPN) 0512 (Given - Provider: Lorena Aponte LPN) 0613 (Given - Provider: Joselin Cheatahm RN) lidocaine 4 % patch 1 patch 1 patch, transdermal, Administer over 24 Hours, Daily, First dose on Wed11/02/23 at 0900 0900 (Not Given - Provider: Rosita Jimenez RN - Reason: Patient/family refused) 09 (Not Given - Provider: Rosita Jimenez RN - Reason: Patient/family refused) 0834 (Medication Applied - Provider: Yang Schumacher RN - Comment: back) magnesium oxide (Mag-Ox) tablet 400 mg 400 mg, oral, Daily, First dose on Wed11/04/23 at 0945 0923 (Given - Provider: Rosita Jimenez RN) 0812 (Given - Provider: Rosita Jimenez RN) 0835 (Given - Provider: Yang Schumacher RN) metoprolol succinate XL (Toprol-XL) 24 hr tablet 50 mg 50 mg, oral, Daily, First dose on Wed11/02/23 at 0900, Do not crush or chew., On hold since Wed11/11/2023 at 1504 until manually unheld 922 (Given - Provider: Rosita Jimenez RN)1504 (Held by provider - Provider: Holden Ornelas PA-C - Reason: Other) 0900 (Not Given - Provider: Rosita Jimenez RN - Reason: See Provider Order) 0900 (Dose Auto Held - Provider: Holden Ornelas PA-C) montelukast (Singulair) tablet 10 mg 10 mg, oral, 4 times weekly (Once per day on Wednesday), First dose on Wed11/01/23 at 2044 0812 (Given - Provider: Rosita Jimenez RN) pantoprazole (ProtoNix) EC tablet 40 mg 40 mg, oral, 2 times daily, First dose on Wed11/01/23 at 2100, Do not crush, chew, or split. 0923 (Given - Provider: Rosita Jimenez RN)2006 (Given - Provider: Lorena Aponte LPN) 08 (Given - Provider: Rosita Jimenez RN)2120 (Given - Provider: Joselin Cheatham RN) 0835 (Given - Provider: Yang Schumacher RN)2100 (Due) perflutren lipid microspheres (Definity) injection 0.5-10 mL of dilution (COMPLETED) 0.5-10 mL of dilution, intravenous, Once in imaging, Starting on Wed11/12/23 at 0936, For 1 dose, Preprocedure, Contrast - for use by imaging provider only. Prior to administration, Definity product must be activated. First, bring vial to room temperature. Then, shake vial for 45 seconds. Do not use if the 45 second activation cycle has not been completed. Following activation, the product will appear as a milky white suspension and may be used immediately. If not used within 5 minutes of activation, re-suspend by inverting and shaking the vial for 10 seconds. Discard unused product. Administration: Dilute 1.3 mL of activated DEFINITY with 8.7 mL of normal saline in a 10 mL syringe. Inject 0.5 mL of diluted DEFINITY when notified the images/film are unclear to enhance view of Left Ventricular borders. Repeat 0.5 mL of DEFINITY until clear images are obtained, not to exceed 10 mLs. Once images are obtained or limit of medication is reached, flush line with 10 mL of Normal Saline. 1004 (Given - Provider: Yuliana Paris RN) perflutren lipid microspheres (Definity) injection 0.5-10 mL of dilution (COMPLETED) 0.5-10 mL of dilution, intravenous, Once in imaging, Starting on Wed11/13/23 at 1152, For 1 dose, CV Medications, Contrast - for use by imaging provider only. Prior to administration, Definity product must be activated. First, bring vial to room temperature. Then, shake vial for 45 seconds. Do not use if the 45 second activation cycle has not been completed. Following activation, the product will appear as a milky white suspension and may be used immediately. If not used within 5 minutes of activation, re-suspend by inverting and shaking the vial for 10 seconds. Discard unused product. Administration: Dilute 1.3 mL of activated DEFINITY with 8.7 mL of normal saline in a 10 mL syringe. Inject 0.5 mL of diluted DEFINITY when notified the images/film are unclear to enhance view of Left Ventricular borders. Repeat 0.5 mL of DEFINITY until clear images are obtained, not to exceed 10 mLs. Once images are obtained or limit of medication is reached, flush line with 10 mL of Normal Saline. 1159 (Given - Provider: Jill Painter RN) polyethylene glycol (Glycolax, Miralax) packet 17 g 17 g, oral, Daily, First dose on Wed11/05/23 at 1015 0900 (Not Given - Provider: Rosita Jimenez RN - Reason: Patient/family refused) 0900 (Not Given - Provider: Rosita Jimenez RN - Reason: NPO) 0900 (Not Given - Provider: Yang Schumacher RN - Reason: Patient/family refused) rosuvastatin (Crestor) tablet 5 mg 5 mg, oral, Nightly, First dose on Wed11/01/23 at 2100 2006 (Given - Provider: Lorena Aponte LPN) 2100 (Due) 2100 (Due) sodium chloride ([place]) 0.65 % nasal spray 1 spray () 1 spray, Each Nostril, 4 times daily, First dose on Wed11/02/23 at 1500, For 10 days 0607 (Given - Provider: Lorena Aponte LPN)1245 (Given - Provider: Rosita Jimenez RN)1737 (Given - Provider: Rosita Jimenez RN)2006 (Given - Provider: Lorena Aponte LPN) 0812 (Given - Provider: Rosita Jimenez RN)1300 (Not Given - Provider: Rosita Jimenez RN - Reason: Patient not available) spironolactone (Aldactone) tablet 25 mg 25 mg, oral, Daily, First dose on Wed11/03/23 at 0945, On hold since Wed11/09/2023 at 1813 until manually unheld 0900 (Not Given - Provider: Rosita Jimenez RN - Reason: See Provider Order) 0900 (Not Given - Provider: Rosita Jimenez, PATRICIA - Reason: See Provider Order) 0900 (Dose Auto Held - Provider: Micah Mccallum APRN-GREASE MAN) tamsulosin (Flomax) 24 hr capsule 0.4 mg 0.4 mg, oral, Nightly, First dose on Wed11/01/23 at 2100, Give 30 minutes after the same mealtime each day. Capsules should be swallowed whole; do not crush, chew, or open. 2006 (Given - Provider: Lorena Aponte LPN) 2120 (Given - Provider: Joselin Cheatham, PATRICIA) 2099 (Due) Continuous Medication Order 11/11/2023 11/12/2023 11/13/2023 furosemide (Lasix) 500 mg in 50 mL (10 mg/mL) infusion 20 mg/hr (2 mL/hr), intravenous, Continuous, Starting on Maya 11/04/23 at 1015, On hold since Wed11/07/2023 at 2209 until manually unheld heparin 25,000 Units in dextrose 5% 250 mL (100 Units/mL) infusion (premix) (CANCELED) 0-4,000 Units/hr (0-40 mL/hr), intravenous, Continuous, Starting on Maya 11/04/23 at 1000, Until Wed11/12/23 at 1601, Low Intensity Heparin Protocol (70-124kg) Initial Dose: 12 units/kg/hr --> Use heparin calculator for units/hr rate Maximum Initial Dose: 1000 units/hr Recheck Heparin Assay, UFH level 4 hours after any rate change, or per protocol. Titration Table: Heparin Assay, UFH < 0.1: Bolus 4,000 units, INCREASE rate by 300 units/hr. , Heparin Assay, UFH 0.1 to 0.2: Bolus 2,000 units. INCREASE rate by 200 units/hr. Heparin Assay, UFH 0.3 to 0.6: (THERAPEUTIC) DO NOT CHANGE Infusion Rate. No Bolus. Heparin Assay, UFH 0.7 to 1: No Bolus. DECREASE rate by 200 unit/hour. Heparin Assay, UFH 1.1 to 1.2: No Bolus. HOLD heparin infusion for 1 hour, then DECREASE rate by 200 units/hour. Heparin Assay, UFH > 1.2: No Bolus. HOLD heparin infusion for 1 hour, then recheck heparin assay. If repeat is > 0.6, continue to HOLD INFUSION. Confirm last draw was performed correctly (pump was paused for a minimum of 2 minutes, sample NOT drawn off line/lumen where medication was infusing) and contact provider for further orders. If repeat is <= 0.6, REDUCE previous infusion rate by 300 units/hour and restart infusion. Recheck Heparin Assay, UFH in 4 hours after dose reduction, resume nomogram. , On hold since Wed11/12/2023 at 0826 until manually unheld 0919 (New Bag - Provider: Rosita Jimenez, PATRICIA) 0119 (New Bag - Provider: Karissa Leyva RN)0826 (Stopped - Provider: Rosita Jimenez RN)0826 (Held by provider - Provider: Holden Ornelas PA-C - Reason: Other)1601 (Unheld by provider - Provider: Andra Molina APRN-GREASE MAN) heparin 25,000 Units in dextrose 5% 250 mL (100 Units/mL) infusion (premix) 0-4,000 Units/hr (0-40 mL/hr), intravenous, Continuous, Starting on Wed11/12/23 at 2100, Until Discontinued, Low Intensity Heparin Protocol (70-124kg) Initial Dose: 12 units/kg/hr --> Use heparin calculator for units/hr rate Maximum Initial Dose: 1000 units/hr Recheck Heparin Assay, UFH level 4 hours after any rate change, or per protocol. Titration Table: Heparin Assay, UFH < 0.1: Bolus 4,000 units, INCREASE rate by 300 units/hr. , Heparin Assay, UFH 0.1 to 0.2: Bolus 2,000 units. INCREASE rate by 200 units/hr. Heparin Assay, UFH 0.3 to 0.6: (THERAPEUTIC) DO NOT CHANGE Infusion Rate. No Bolus. Heparin Assay, UFH 0.7 to 1: No Bolus. DECREASE rate by 200 unit/hour. Heparin Assay, UFH 1.1 to 1.2: No Bolus. HOLD heparin infusion for 1 hour, then DECREASE rate by 200 units/hour. Heparin Assay, UFH > 1.2: No Bolus. HOLD heparin infusion for 1 hour, then recheck heparin assay. If repeat is > 0.6, continue to HOLD INFUSION. Confirm last draw was performed correctly (pump was paused for a minimum of 2 minutes, sample NOT drawn off line/lumen where medication was infusing) and contact provider for further orders. If repeat is <= 0.6, REDUCE previous infusion rate by 300 units/hour and restart infusion. Recheck Heparin Assay, UFH in 4 hours after dose reduction, resume nomogram. 2117 (New Bag - Provider: Joselin Cheatham, PATRICIA) 0152 (Rate/Dose Change - Provider: Joselin Cheatham RN)1015 (Rate/Dose Change - Provider: Yang Schumacher RN) lactated Ringer's infusion () 75 mL/hr, intravenous, Continuous, Starting on Wed11/12/23 at 1000, For 4 hours, Preprocedure 1337 (New Bag - Provider: Rosita Jimenez, PATRICIA) PRN Medication Order 11/11/2023 11/12/2023 11/13/2023 acetaminophen (Tylenol) tablet 650 mg 650 mg, oral, Every 4 hours PRN, pain mild (1-3), first line, Starting on Wed11/01/23 at 1640, Administer tablet or oral liquid per patient preference., If ordered PRN for pain, nurse is permitted to administer this medication for higher pain scores based on patient preference? Yes 9635 (Given - Provider: Yang Schumacher RN) aspirin tablet (CANCELED) As needed, Starting on Wed11/12/23 at 1227, Intraprocedure 1227 (Given - Provider: Denise Moreno RN) calcium carbonate (Tums) chewable tablet 500 mg 500 mg, oral, 4 times daily PRN, indigestion, heartburn, Starting on Tu11/09/23 at 0840 dextrose 50 % injection 12.5 g 12.5 g, intravenous, Every 15 min PRN, For blood glucose 41 to 70 mg/dL, Starting on Wed11/01/23 at 1955, May repeat until blood glucose level reaches 100 mg/dL or greater. Push 2 - 3 mL/minute if patient has secure IV access. dextrose 50 % injection 12.5 g 12.5 g, intravenous, Every 15 min PRN, For blood glucose 41 to 70 mg/dL, Starting on 11/06/23 at 0804, May repeat until blood glucose level reaches 100 mg/dL or greater. Push 2 - 3 mL/minute if patient has secure IV access. dextrose 50 % injection 25 g 25 g, intravenous, Every 15 min PRN, For blood glucose less than or equal to 40 mg/dL, Starting on Wed11/01/23 at 1955, May repeat until blood glucose level reaches 100 mg/dL or greater. Push 2 - 3 mL/minute if patient has secure IV access. fentaNYL PF (Sublimaze) injection (CANCELED) As needed, Starting on Wed11/12/23 at 1042, Intraprocedure 1042 (Given - Provider: Kayode Rollins RN)1113 (Given - Provider: Kayode Rollins, PATRICIA)1211 (Given - Provider: Kayode Rollins, PATRICIA) glucagon (Glucagen) injection 1 mg 1 mg, intramuscular, Every 15 min PRN, low blood sugar - see comments, For blood glucose 41 to 70 mg/dL and no IV access, Starting on Wed11/01/23 at 1955, Give until blood glucose is 100 mg/dL or greater. If patient DOES NOT HAVE secure IV access & patient is unconscious, NPO or is unable to eat or drink. heparin 1,000 unit/mL injection (CANCELED) As needed, Starting on Wed11/12/23 at 1139, Intraprocedure 1139 (Given - Provider: Kayode Rollins, PATRICIA) heparin bolus from bag 2,000-4,000 Units 2,000-4,000 Units, intravenous, Every 4 hours PRN, repeat bolus per current Heparin Assay, UFH result, Starting on Maya 11/04/23 at 0935, Heparin Assay, UFH <0.1: Enter a 0 into the Heparin Assay, UFH field, Heparin Assay, UFH <0.1 Bolus Dose (units): 4000, Heparin Assay, UFH 0.1-0.2 Bolus Dose (units): 2000, Heparin Assay, UFH 0.3-0.6 Bolus Dose (units): 0, Heparin Assay, UFH 0.7-1 Bolus Dose (units): 0, Heparin Assay, UFH 1.1-1.2 Bolus Dose (units): 0, Heparin Assay, UFH >1.2 Bolus Dose (units): 0, Heparin Assay, UFH >2: Enter a 2 into the Heparin Assay, UFH field 0154 (Bolus from Bag - Provider: Joselin Cheatham RN)1014 (Bolus from Bag - Provider: Yang Schumacher RN) iohexol (OMNIPaque) 350 mg iodine/mL solution (CANCELED) As needed, Starting on Wed11/12/23 at 1225, Intraprocedure 1225 (Given - Provider: Milton Camejo MD) lidocaine (Xylocaine) 20 mg/mL (2 %) injection (CANCELED) As needed, Starting on Wed11/12/23 at 1049, Intraprocedure 1049 (Given - Provider: Milton Camejo MD) lidocaine PF (Xylocaine) 10 mg/mL (1 %) injection (CANCELED) As needed, Starting on Wed11/12/23 at 1130, Intraprocedure 1130 (Given - Provider: Kayode Rollins RN - Comment: Lt yelitza) melatonin tablet 5 mg 5 mg, oral, Nightly PRN, sleep, Starting on Wed11/02/23 at 1320 midazolam (Versed) injection (CANCELED) As needed, Starting on Wed11/12/23 at 1042, Intraprocedure 1042 (Given - Provider: Kayode Rollins RN)1114 (Given - Provider: Kayode Rollins RN) oxyCODONE-acetaminophen (Percocet) 5-325 mg per tablet 1 tablet 1 tablet, oral, Every 4 hours PRN, pain moderate (4-6), second line, Starting on 11/01/23 at 2021, If ordered PRN for pain, nurse is permitted to administer this medication for higher pain scores based on patient preference? Yes 0130 (Given - Provider: Fatou Ramirez RN) 013 (Given - Provider: Lorena Aponte LPN) protamine injection (COMPLETED) Continuous PRN, Starting on Wed11/12/23 at 1213, Intraprocedure 1213 (New Bag - Provider: Kayode Rollins RN) FOR RECORDS PERTAINING TO PATIENTS WHO ARE OR HAVE BEEN ENROLLED IN A CHEMICAL DEPENDENCY/SUBSTANCEABUSE PROGRAM, SOME INFORMATION MAY BE OMITTED. This clinical summary was aggregated from multiple sources. Caution should be exercised in using it in the provision of clinical care. This summary normalizes information from multiple sources, and as a consequence, information in this document may materially change the coding, format and clinical context of patient data. In addition, data may be omitted in some cases. CLINICAL DECISIONS SHOULD BE BASED ON THE PRIMARY CLINICAL RECORDS. [employer] provides no warranty or guarantee of the accuracy or completeness of information in this document.
[2024-12-05 09:57] LABS: Hematocrit 31.8 % (42.0-54.0); Hemoglobin 10.4 g/dL (14.0-18.0); Immature Granulocytes Abs Auto 0.03 10^3/uL (0.00-0.03); Immature Granulocytes Pct Auto 0.3 % (0.0-0.5); Lymphocytes Absolute Auto 2.5 10^3/uL (1.2-3.8); Mean Corpuscular HGB Conc 32.7 g/dL (29.9-35.2); Mean Corpuscular Hemoglobin 30.5 pg (25.9-34.0); Mean Corpuscular Volume 93.3 fL (80.0-94.0); Platelet Count 242 10^3/uL (150-450); Red Blood Count 3.41 10^6/uL (4.70-6.10); White Blood Count 9.3 10^3/uL (4.0-11.0)
[2024-12-05 11:21] LABS: Alanine Aminotransferase 15 U/L (16-63); Albumin Globulin Ratio 0.9; Albumin Level 3.2 g/dL (3.4-5.0); Alkaline Phosphatase 68 U/L (46-116); Anion Gap 15.7; Aspartate Amino Transferase 24 U/L (15-37); Blood Urea Nitrogen 36.0 mg/dL (7.0-18.0); Calcium 8.8 mg/dL (8.5-10.1); Carbon Dioxide 23.8 mmol/L (21.0-32.0); Chloride 104 mmol/L (98-107); Estimated GFR (African America 56 (>=60 mL/min/1.73m^2); Estimated GFR (Non-African Ame 46 (>=60 mL/min/1.73m^2); Globulin 3.7 g/dL; Glucose 133 mg/dL (74-106); Potassium 4.5 mmol/L (3.5-5.1); Sodium 139 mmol/L (136-145); Total Protein 6.9 g/dL (6.4-8.2)
== END 2024-12-05 09:25 | disposition home or self-care (01) ==
LOC: LAB 09:24
PROVIDERS: PCP Internal Medicine; Visit Provider Internal Medicine Rheumatology
DX: M05.79 Rheumatoid arthritis with rheumatoid factor of multiple sites without organ or systems involvement (principal); M15.0 Primary generalized (osteo)arthritis; Z79.899 Other long term (current) drug therapy; D50.9 Iron deficiency anemia, unspecified; N18.31 Chronic kidney disease, stage 3a; R06.02 Shortness of breath; E11.65 Type 2 diabetes mellitus with hyperglycemia
CPT/HCPCS: 36415; 80053; 80061; 83036; 83880; 85025; 85652

== ENCOUNTER 2024-12-05 09:26 | Outpatient (OUT) | payer MEDICARE, SELFPAY ==
--- OUTSIDE RECORDS SUMMARY | 2024-12-05 09:50 | XMS_ITS | CCD ---
Author Organization [facility] ion Partnership [facility] Care Team Providers Care Tab Cutter Name Role Phone Al Raymundo Primary Care Provider [phone] Solomon Bolton Attending Provider JR Al Raymundo Primary Care Provider [phone] MD Solomon Bolton Attending Provider [phone] DO Kelvin Fu Jr Attending Provider MD Solomon Bolton Attending Provider MD Solomon Bolton Attending Provider [phone] AL RAYMUNDO JR Primary Care Physician [phone] MD Solomon Bolton Attending Provider NAYAN DUTTA Admitting Unavailable Joceline Hough Consulting Unavailable ISAIAH ., NAYAN Attending Unavailable BREANNE, DR COULTER Primary Care Unavailable ISAIAH ., NAYAN Consulting Unavailable NILL ., DR PEDROZA Consulting Unavailable BREANNE, DR COULTER Primary Care Unavailable NILL ., DR PEDROZA Admitting Unavailable NILL ., DR PEDROZA Attending Unavailable LYSSA COUCH Consulting Unavailable SAMIRJOSE LUIS Consulting Unavailable NATO BAR Consulting Unavailable AL RAYMUNDO Referring Unavailable Yovany AVILA Attending Unavailable Yovany AVILA Attending Unavailable NILLYovany Attending Unavailable ALANNALYovany Attending Unavailable NO FAMILY, PHYSICIAN Primary Care Provider Unava MD Solomon Khan Attending Provider [phone] NO FAMILY, PHYSICIAN Primary Care Provider Unava ilMD Floyd Ordoñez Attending Provider Al Raymundo DO Primary Care Provider NO FAMILY, PHYSICIAN Primary Care Provider Unava ilMD Omega Ordoñezew Attending Provider MD Arnulfo Carter Attending Provider JR Al Raymundo Primary Care Provider Al Raymundo DO Primary Care Provider MD Joby Pinedo Attending Provider JR Al Raymundo Primary Care Provider Al Raymundo DO Primary Care Provider [phone] MD Manny Perez Emergency Provider DO Astrid Osman Admit Provider DO Astrid Osman Attending Provider PATRICIA Gamez Other Provider Unavailable DO Erin Reyna Other Provider MD Gabe Bowens Other Provider MD Arnulfo aCrter Other Provider MD Joby Pinedo Other Provider MD Al Uriostegui Other Provider ROSSY Aldrich Other Provider MD Destini Rae Other Provider MD Nela Calderónammed Naeb Other Provider MD Tano Law Other Provider Rula [facility] Concetta Jung Other Provider MD Misael Gonzales Attending Provider JR Al Raymundo Primary Care Provider [phone] MD Joby Pinedo Attending Provider ROSSY Tsai Attending Provider JR Al Raymundo Primary Care Provider TONYA Davidson Emergency Provider MD Mary Colin Admit Provider [phone] MD Mary Colin Attending Provider MD Valerio [...] Primary Care Provider Dewey Chamorro DO Unavailable [phone] Al Raymundo JR Primary Care Provider Floyd Bolton MD Attending Provider [phone] Al Raymundo JR Primary Care Provider Floyd Bolton MD Attending Provider [phone] DEWEY CHAMORRO Attending Unavailable BREANNE, AL Jung [...] Valone JR, Al L Primary Care Provider [phone] Hoang CABRERA, Floyd Attending Provider [phone] Joby Pinedo MD Other Provider Kana Mcdonough MD Attending Provider Joby Pinedo MD Attending Provider MEDARDO TSAI Attending Unavailable MILTON CAMEJO Referring Unavailab le VALONE, AL L Primary Care Unavailable Valone JRAl L Primary Care Provider [phone] Ly DOShabana Attending Provider [phone] Ly DOShabana Other Provider Traboulssi, Mourhaf Admitting Unavailable Valone, Al L [...] Facility (1 source) empagliflozin Drug Allergy [facility] Repository (1 source) No Known Medication Allergies; 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: [No Known Medication Allergies] Propensity to adverse reactions (disorder) [facility] Repository Medications Current Medications Medication Drug [...] Start: 05-27-2022 take 1 capsule by mo [facility] once daily in the evening Dutasteride 0.5 [...] 11-01-2023 Start: 03-10-2023 take 1 capsule by [facility] once daily Folic Acid 20 [...] (3 sources) Anticholinergic Start: 05-27-2022 Atrovent 0.03% Cove 2 spray(s), Nasal, TID, Refill(s) 0 Start [...] Start: 12-29-2023 take 6 tablets by mo [facility] every week methotrexate (Trexall) 2.5 mg tablet [...] Complies with drug therapy polyethylene glycol 3350 61615 mg powder for oral solution (1 source) [...] Start: 11-04-2023 End: 11-04-2023 Start: 11-04-2023 take [id number] [IU] intravenou sly every four hours as [...] vessel disease; 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: [Atherosclerotic heart disease of [place] coronary artery without angina pectoris] Onset: 4 [...] sources) Long-term current use of 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; 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: [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] Onset: 02-23-2023 Resolved: 08-09-2023 05-27-2022 Episodic Other aftercare (3 sources) nursing home (current) use of 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s; 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: [INTERMEDIATE CURRNT USE ANTICOAGULANTS] Onset: 07-16-2022 Episodic Other aftercare (1 source) nursing home (current) use of oral hypoglycemic drugs; 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: [INTERMEDIATE USE ORAL HYPOGLYCEMIC DX] Onset: 10-24-2021 Episodic Other aftercare (1 source) Other fpc (current) drug therapy; 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: [OTH INTERMEDIATE CURRENT DRUG THERAPY] Onset: 10-24-2021 Episodic Other [...] 11-13-2024 Commemt1 Glu2: Cleaned Meter Normal [facility] Comment on above: Result Comment: PERF ORMED BY: [facility] [place] [address] PATHOLOGIST PAPER MILL SUPERINTENDENT ELROY GORMAN M.D. Performed By: #### G JOSE M #### Point of Care testing , Glucose [Mass/Vol] 100 mg/dL Normal [facility] Comment on above: Result Comment: [facility] Glucose Reference Range is dependent on time and content of last meal. Glucose of more than 200 mg/dL in a nonstressed, ambulatory subject supports the diagnosis of Diabetes Mellitus. Performed By: #### G JOSE M #### Point of Care testing , Mike 11-13-2024 L ----- Specimen: [id number] Received: 11/13/24 Status: JOHNNY Valles Num: [id number] Spec Type: Surgical Subm Dr: Shabana Gutierrez DO Tissues: A Colon Biopsy (TRANSVERSE COLON POLYP) Procedures: HE/2, Gross/Micro L4 Age/ Patient Sex Location Account Attending Physician Shahid Sanchez 84/M [id number] Shabana Gutierrez DO SPEC NUM: [id number] RECD: 11/13/24 STATUS: JOHNNY VALLES NUM: [id number] RIVER: 11/13/24 [facility] DR: Shabana Gutierrez DO ENTERED: 11/13/24 [facility] DR: JESSICA TYPE: Surgical DEPT: S ORDERED: [...] The vegetative material is retained. (1, ns, [id number]) Microscopic Description Microscopic examination is performed. CPT Codes 92380 Specimen: [id number] Received: 11/13/24 Status: JOHNNY Valles Num: [id number] Spec Type: Surgical Subm Dr: Shabana Gutierrez DO Tissues: A Colon Biopsy (TRANSVERSE COLON POLYP) Procedures: HE/2, Gross/Micro L4 Patient: Shahid Sanchez [id number] (Continued) Signed (signature on file) Thomas Lozano MD 11/14/24820 Normal [facility] Alanine aminotransferase [En zymatic activity/volume] in Serum or PlasmaOrdered By: Floyd Bolton on 08-08-2024 ALT [Catalytic activity/Vol] Alanine aminotransferase [Enzymatic activity/volume] in Serum or Plasma [facility] ALT [Catalytic activity/Vol] 16 U/L Normal [facility] Comment on above: Performed By: #### C MP, CBC, ESR #### [address] Albumin [Mass/volume] in Ser um or Plasma by Bromocresol green (BCG) dye binding methoOrdered By: Floyd Bolton on 08-08-2024 Albumin BCG dye [Mass/Vol] Albumin [Mass/volume] in Serum or Plasma by Bromocresol green (BCG) dye binding metho 3.5-5.7 [facility] Albumin BCG dye [Mass/Vol] 3.9 g/dL 3.5-5.7 [facility] Alkaline phosphatase [Enzyma tic activity/volume] in Serum or PlasmaOrdered By: Floyd Bolton on 08-08-2024 ALP [Catalytic activity/Vol] Alkaline phosphatase [Enzymatic activity/volume] in Serum or Plasma 34-104 [facility] ALP [Catalytic activity/Vol] 58 U/L Normal 34-104 [facility] Comment on above: Result Comment: PERF ORMED BY: [place] [address] PATHOLOGIST P[employer] M[employer] SUPERINTENDENT KACI MCCLAIN M.D. Performed By: #### C MP, CBC, ESR #### [address] Aspartate aminotransferase [ Enzymatic activity/volume] in Serum or PlasmaOrdered By: Floyd Bolton on 08-08-2024 AST [Catalytic activity/Vol] Aspartate aminotransferase [Enzymatic activity/volume] in Serum or Plasma 13-39 [facility] AST [Catalytic activity/Vol] 23 U/L Normal 13-39 [facility] Comment on above: Performed By: #### C MP, CBC, ESR #### [facility] [address] [place] [address] [place] Basophils Auto (Bld) [#/Vol] Ordered By: Floyd Bolton on 08-08-2024 Basophils (Bld) [#/Vol] Automated basophil count 0.0-0.2 [facility] Basophils [#/volume] in Bloo d by Automated countOrdered By: Floyd Bolton on 08-08-2024 Basophils (Bld) [#/Vol] 0.0 10*3/uL Normal 0.0-0.2 [facility] Comment on above: Performed By: #### C MP, CBC, ESR #### [facility] [address] Basophils/100 WBC Auto (Bld) Ordered By: Floyd Bolton on 08-08-2024 Basophils/100 WBC (Bld) Automated basophil % . [facility] Basophils/100 leukocytes in Blood by Automated countOrdered By: Floyd Bolton on 08-08-2024 Basophils/100 WBC (Bld) 0.9 % Normal . [facility] Comment on above: Performed By: #### C MP, CBC, ESR #### [facility] [address] Bilirubin.total [Mass/volume ] in Serum or PlasmaOrdered By: Floyd Bolton on 08-08-2024 Bilirubin [Mass/Vol] Bilirubin.total [Mass/volume] in Serum or Plasma 0.3-1.0 [facility] Bilirubin [Mass/Vol] 1.0 mg/dL Normal 0.3-1.0 [facility] Comment on above: Performed By: #### C MP, CBC, ESR #### [facility] [address] Calcium [Mass/volume] in Ser um or PlasmaOrdered By: Floyd Bolton on 08-08-2024 Calcium [Mass/Vol] Calcium [Mass/volume ] in Serum or Plasma 8.6-10.3 [facility] Calcium [Mass/Vol] 9.3 mg/dL Normal 8.6-10.3 [facility] Comment on above: Performed By: #### C MP, CBC, ESR #### [facility] [address] [place] [address] [place] Carbon dioxide, total [Moles /volume] in Serum or PlasmaOrdered By: Floyd Bolton on 08-08-2024 CO2 [Moles/Vol] Carbon dioxide, tota l [Moles/volume] in Serum or Plasma 21.0-31.0 [facility] CO2 [Moles/Vol] 23.7 mmol/L Normal 21.0-31.0 [facility] Comment on above: Performed By: #### C MP, CBC, ESR #### [address] Chloride [Moles/volume] in S paulo or PlasmaOrdered By: Floyd Bolton on 08-08-2024 Chloride [Moles/Vol] Chloride [Moles/vol ume] in Serum or Plasma 98-107 [facility] Chloride [Moles/Vol] 107 mmol/L Normal 98-107 [facility] Comment on above: Performed By: #### C MP, CBC, ESR #### [facility] [address] [place] [address] Complete Blood Count Auto Di ffon 08-08-2024 Mean Corpuscular HGB Conc 34.3 g/dL Normal 32.5-35.6 [facility] Comment on above: Performed By: #### C MP, CBC, ESR #### [facility] [address] [place] [address] NRBC% 0.1 /100{WBC} Normal 0-0.5 [facility] Comment on above: Performed By: #### C MP, CBC, ESR #### [address] Comprehensive Metabolic Pane mike 08-08-2024 Albumin [Mass/Vol] 3.9 g/dL Normal 3.5-5.7 [facility] Comment on above: Performed By: #### C MP, CBC, ESR #### [address] Estimated GFR 50.182 mL/Min Normal [facility] Comment on above: Performed By: #### C MP, CBC, ESR #### [address] Creatinine [Mass/volume] in Serum or PlasmaOrdered By: Floyd Bolton on 08-08-2024 Creatinine [Mass/Vol] Creatinine [Mass/v olume] in Serum or Plasma High 0.70-1.30 [facility] Creatinine [Mass/Vol] 1.40 mg/dL High 0.70-1.30 [facility] Comment on above: Performed By: #### C MP, CBC, ESR #### [address] Eosinophils Auto (Bld) [#/Vo l]Ordered By: Floyd Bolton on 08-08-2024 Eosinophils (Bld) [#/Vol] Automated eosinophil count 0.0-0.45 [facility] Eosinophils [#/volume] in Bl ood by Automated countOrdered By: Floyd Bolton on 08-08-2024 Eosinophils (Bld) [#/Vol] 0.1 10*3/uL Normal 0.0-0.45 [facility] Comment on above: Performed By: #### C MP, CBC, ESR #### [address] Eosinophils/100 WBC Auto (Bl d)Ordered By: Floyd Bolton on 08-08-2024 Eosinophils/100 WBC (Bld) Automated eosinophil % . [facility] Eosinophils/100 leukocytes i n Blood by Automated countOrdered By: Floyd Bolton on 08-08-2024 Eosinophils/100 WBC (Bld) 2.6 % Normal . [facility] Comment on above: Performed By: #### C MP, CBC, ESR #### [address] Erythrocyte Sedimentation Ra umesh 08-08-2024 ESR (Bld) [Velocity] 17 mm/h Normal 0-19 [facility] Comment on above: Result Comment: PERF ORMED BY: [place] [address] PATHOLOGIST PAP[employer] M[employer] SUPERINTENDENT KACI MCCLAIN M.D. Performed By: #### C MP, CBC, ESR #### [address] Erythrocyte distribution wid th Auto (RBC) [Ratio]Ordered By: Floyd Bolton on 08-08-2024 Erythrocyte distribution width (RBC) [Ratio] Erythrocyte distribution width [Ratio] by Automated count High 12.0-14.8 [facility] Erythrocyte distribution wid th [Ratio] by Automated countOrdered By: Floyd Bolton on 08-08-2024 Erythrocyte distribution width (RBC) [Ratio] 17.9 % High 12.0-14.8 [facility] Comment on above: Performed By: #### C MP, CBC, ESR #### [facility] [address] Erythrocyte sedimentation ra te by Photometric methodOrdered By: Floyd Bolton on 08-08-2024 ESR Photometric method (Bld) [Velocity] Erythrocyte sedimentation rate by Photometric method 0-19 [facility] ESR Photometric method (Bld) [Velocity] 17 mm/hr 0-19 [facility] Erythrocytes [#/volume] in B lood by Automated countOrdered By: Floyd Bolton on 08-08-2024 RBC (Bld) [#/Vol] 3.16 10*6/uL Low 3.90-5.60 [facility] Comment on above: Performed By: #### C MP, CBC, ESR #### [facility] [address] Globulin Calc (S) [Mass/Vol] Ordered By: Floyd Bolton on 08-08-2024 Globulin (S) [Mass/Vol] Serum globulin measurement by calculation (mass/volume) [facility] Glucose [Mass/volume] in Ser um or PlasmaOrdered By: Floyd Bolton on 08-08-2024 Glucose [Mass/Vol] Glucose [Mass/volume ] in Serum or Plasma High 70-100 [facility] Comment on above: ADA recommended refe rence rangeRandom Glucose Reference Range is dependent on time and content of last meal. Glucose of more than 200 mg/dL in a nonstressed, ambulatory subject supports the diagnosis of Diabetes Mellitus. Glucose [Mass/Vol] 138 mg/dL High 70-100 [facility] Comment on above: ADA recommended refe rence rangeRandom Glucose Reference Range is dependent on time and content of last meal. Glucose of more than 200 mg/dL in a nonstressed, ambulatory subject supports the diagnosis of Diabetes Mellitus. Result Comment: [place] om Glucose Reference Range is dependent on time and content of last meal. Glucose of more than 200 mg/dL in a nonstressed, ambulatory subject supports the diagnosis of Diabetes Mellitus. ADA recommended reference range Performed By: #### C MP, CBC, ESR #### [address] Hematocrit Auto (Bld) [Volum e fraction]Ordered By: Floyd Bolton on 08-08-2024 Hematocrit (Bld) [Volume fraction] Hematocrit [Volume Fraction] of Blood by Automated count Low 38.8-50.0 [facility] Hematocrit [Volume Fraction] of Blood by Automated countOrdered By: Floyd Bolton on 08-08-2024 Hematocrit (Bld) [Volume fraction] 29.9 % Low 38.8-50.0 [facility] Comment on above: Performed By: #### C MP, CBC, ESR #### [address] Hemoglobin [Mass/volume] in BloodOrdered By: Floyd Bolton on 08-08-2024 Hemoglobin (Bld) [Mass/Vol] Hemoglobin [Mass/volume] in Blood Low 13.0-17.0 [facility] Hemoglobin (Bld) [Mass/Vol] 10.2 g/dL Low 13.0-17.0 [facility] Comment on above: Performed By: #### C MP, CBC, ESR #### [address] Leukocytes [#/volume] correc liborio for nucleated erythrocytes in Blood by Automated counOrdered By: Floyd Bolton on 08-08-2024 WBC corrected for nucl RBC Auto (Bld) [#/Vol] Leukocytes [#/volume] corrected for nucleated erythrocytes in Blood by Automated coun 4.1-10.5 [facility] WBC corrected for nucl RBC Auto (Bld) [#/Vol] 5.4 10*3/uL 4.1-10. [facility] Leukocytes [#/volume] in Blo od by Automated countOrdered By: Floyd Bolton on 08-08-2024 WBC (Bld) [#/Vol] 5.4 10*3/uL Normal 4.1-10.5 [facility] Comment on above: Performed By: #### C MP, CBC, ESR #### [facility] [address] [place] [address] Lymphocytes Auto (Bld) [#/Vo l]Ordered By: Floyd Bolton on 08-08-2024 Lymphocytes (Bld) [#/Vol] Lymphocytes [#/volume] in Blood by Automated count Low 1.00-4.8 [facility] Lymphocytes [#/volume] in Bl ood by Automated countOrdered By: Floyd Bolton on 08-08-2024 Lymphocytes (Bld) [#/Vol] 0.9 10*3/uL Low 1.00-4.8 [facility] Comment on above: Performed By: #### C MP, CBC, ESR #### [facility] [address] [place] [address] Lymphocytes/100 WBC Auto (Bl d)Ordered By: Floyd Bolton on 08-08-2024 Lymphocytes/100 WBC (Bld) Lymphocytes/100 leukocytes in Blood by Automated count . [facility] Lymphocytes/100 leukocytes i n Blood by Automated countOrdered By: Floyd Bolton on 08-08-2024 Lymphocytes/100 WBC (Bld) 16.9 % Normal . [facility] Comment on above: Performed By: #### C MP, CBC, ESR #### [address] MCH Auto (RBC) [Entitic mass ]Ordered By: Floyd Bolton on 08-08-2024 MCH (RBC) [Entitic mass] MCH [Entitic mass] by Automated count 27.5-35.2 [facility] MCH [Entitic mass] by Automa liborio countOrdered By: Floyd Bolton on 08-08-2024 MCH (RBC) [Entitic mass] 32.5 pg Normal 27.5-35.2 [facility] Comment on above: Performed By: #### C MP, CBC, ESR #### [address] MCHC Auto (RBC) [Mass/Vol]Or dered By: Floyd Bolton on 08-08-2024 MCHC (RBC) [Mass/Vol] MCHC [Mass/volume] by Automated count 32.5-35.6 [facility] MCHC (RBC) [Mass/Vol] 34.3 g/dL 32.5-35.6 [facility] MCV Auto (RBC) [Entitic vol] Ordered By: Floyd Bolton on 08-08-2024 MCV (RBC) [Entitic vol] MCV [Entitic volume] by Automated count 83.5-101 [facility] MCV [Entitic volume] by Auto mated countOrdered By: Floyd Bolton on 08-08-2024 MCV (RBC) [Entitic vol] 94.7 fL Normal 83.5-101 [facility] Comment on above: Performed By: #### C MP, CBC, ESR #### [facility] [address] [place] [address] Monocytes Auto (Bld) [#/Vol] Ordered By: Floyd Bolton on 08-08-2024 Monocytes (Bld) [#/Vol] Automated blood monocyte count 0.0-0.8 [facility] Monocytes [#/volume] in Bloo d by Automated countOrdered By: Floyd Bolton on 08-08-2024 Monocytes (Bld) [#/Vol] 0.6 10*3/uL Normal 0.0-0.8 [facility] Comment on above: Performed By: #### C MP, CBC, ESR #### [facility] [address] [place] [address] [place] Monocytes/100 WBC Auto (Bld) Ordered By: Floyd Bolton on 08-08-2024 Monocytes/100 WBC (Bld) Automated monocyte % . [facility] Monocytes/100 leukocytes in Blood by Automated countOrdered By: Floyd Bolton on 08-08-2024 Monocytes/100 WBC (Bld) 12.1 % Normal . [facility] Comment on above: Performed By: #### C MP, CBC, ESR #### [facility] [address] [place] [address] Neutrophils Auto (Bld) [#/Vo l]Ordered By: Floyd Bolton on 08-08-2024 Neutrophils (Bld) [#/Vol] Neutrophils [#/volume] in Blood by Automated count 1.8-7.7 [facility] Neutrophils [#/volume] in Bl ood by Automated countOrdered By: Floyd Bolton on 08-08-2024 Neutrophils (Bld) [#/Vol] 3.6 10*3/uL Normal 1.8-7.7 [facility] Comment on above: Performed By: #### C MP, CBC, ESR #### [facility] [address] Neutrophils/100 WBC Auto (Bl d)Ordered By: Floyd Bolton on 08-08-2024 Neutrophils/100 WBC (Bld) Automated neutrophil % . [facility] Neutrophils/100 leukocytes i n Blood by Automated countOrdered By: Floyd Bolton on 08-08-2024 Neutrophils/100 WBC (Bld) 67.5 % Normal . [facility] Comment on above: Performed By: #### C MP, CBC, ESR #### [facility] [address] No Panel InformationOrdered By: Floyd Bolton on 08-08-2024 Estimated GFR (CKD-EPI) 50.182 mL/Min [facility] Creatinine Clearance (Chem N/A [facility] Nucleated erythrocytes [Pres ence] in Blood by Automated countOrdered By: Floyd Bolton on 08-08-2024 Nucleated RBC Auto Ql (Bld) Nucleated erythrocytes [Presence] in Blood by Automated count 0-0.5 [facility] Nucleated RBC Auto Ql (Bld) 0.1 /100{WBC} 0-0.5 [facility] Platelet mean volume Auto (B ld) [Entitic vol]Ordered By: Floyd Bolton on 08-08-2024 Platelet mean volume (Bld) [Entitic vol] Platelet mean volume [Entitic volume] in Blood by Automated count 6.6-10.1 [facility] Platelet mean volume [Entiti c volume] in Blood by Automated countOrdered By: Floyd Bolton on 08-08-2024 Platelet mean volume (Bld) [Entitic vol] 8.6 fL Normal 6.6-10.1 [facility] Comment on above: Performed By: #### C MP, CBC, ESR #### [address] Platelets Auto (Bld) [#/Vol] Ordered By: Floyd Bolton on 08-08-2024 Platelets (Bld) [#/Vol] Platelets [#/volume] in Blood by Automated count 150-450 [facility] Platelets [#/volume] in Bloo d by Automated countOrdered By: Floyd Bolton on 08-08-2024 Platelets (Bld) [#/Vol] 191 10*3/uL Normal 150-450 [facility] Comment on above: Performed By: #### C MP, CBC, ESR #### [address] Potassium [Moles/volume] in Serum or PlasmaOrdered By: Floyd Bolton on 08-08-2024 Potassium [Moles/Vol] Potassium [Moles/v olume] in Serum or Plasma 3.5-5.1 [facility] Potassium [Moles/Vol] 3.7 mmol/L Normal 3.5-5.1 [facility] Comment on above: Performed By: #### C MP, CBC, ESR #### [address] Protein [Mass/volume] in Ser um or PlasmaOrdered By: Floyd Bolton on 08-08-2024 Protein [Mass/Vol] Protein [Mass/volume ] in Serum or Plasma 6.4-8.9 [facility] Protein [Mass/Vol] 6.4 g/dL Normal 6.4-8.9 [facility] Comment on above: Performed By: #### C MP, CBC, ESR #### [address] RBC Auto (Bld) [#/Vol]Ordere d By: Floyd Bolton on 08-08-2024 RBC (Bld) [#/Vol] Erythrocytes [#/volu me] in Blood by Automated count Low 3.90-5.60 [facility] Serum globulin measurement b y calculation (mass/volume)Ordered By: Floyd Bolton on 08-08-2024 Globulin (S) [Mass/Vol] 2.5 g/dL Normal [facility] Comment on above: Performed By: #### C MP, CBC, ESR #### [facility] [address] Serum or plasma albumin/glob ulin mass ratioOrdered By: Floyd Bolton on 08-08-2024 Albumin/Globulin [Mass ratio] Serum or plasma albumin/globulin mass ratio [facility] Albumin/Globulin [Mass ratio] 1.6 {ratio} Normal [facility] Comment on above: Performed By: #### C MP, CBC, ESR #### [facility] [address] Serum or plasma anion gap de terminationOrdered By: Floyd Bolton on 08-08-2024 Anion gap [Moles/Vol] Serum or plasma an ion gap determination 6.0-15.0 [facility] Anion gap [Moles/Vol] 13.0 mmol/L Normal 6.0-15.0 [facility] Comment on above: Performed By: #### C MP, CBC, ESR #### [facility] [address] Sodium [Moles/volume] in Ser um or PlasmaOrdered By: Floyd Bolton on 08-08-2024 Sodium [Moles/Vol] Sodium [Moles/volume ] in Serum or Plasma 136-145 [facility] Sodium [Moles/Vol] 140 mmol/L Normal 136-145 [facility] Comment on above: Performed By: #### C MP, CBC, ESR #### [facility] [address] Urea nitrogen [Mass/volume] in Serum or PlasmaOrdered By: Floyd Bolton on 08-08-2024 Urea nitrogen [Mass/Vol] Urea nitrogen [Mass/volume] in Serum or Plasma High 7-25 [facility] Urea nitrogen [Mass/Vol] 30 mg/dL [facility] 725 [facility] Comment on above: Performed By: #### C MP, CBC, ESR #### [facility] [address] [place] [id number] [facility] WBC Auto (Bld) [#/Vol]Ordere d By: Floyd Bolton on 08-08-2024 WBC (Bld) [#/Vol] Leukocytes [#/volume ] in Blood by Automated count 4.1-10.5 [facility] ECG 12 [place] 07-12-2024 Atrial fibrillation with controlled rate probable old inferior [facility] Work Phone: Alanine aminotransferase [En zymatic activity/volume] in Serum or PlasmaOrdered By: Floyd Bolton on 06-08-2024 ALT [Catalytic activity/Vol] Alanine aminotransferase [Enzymatic activity/volume] in Serum or Plasma 7-52 [facility] Albumin [Mass/volume] in Ser um or Plasma by Bromocresol green (BCG) dye binding methoOrdered By: Floyd Bolton on 06-08-2024 Albumin BCG dye [Mass/Vol] Albumin [Mass/volume] in Serum or Plasma by Bromocresol green (BCG) dye binding metho 3.5-5.7 [facility] Alkaline phosphatase [Enzyma tic activity/volume] in Serum or PlasmaOrdered By: Floyd Bolton on 06-08-2024 ALP [Catalytic activity/Vol] Alkaline phosphatase [Enzymatic activity/volume] in Serum or Plasma 34-104 [facility] Aspartate aminotransferase [ Enzymatic activity/volume] in Serum or PlasmaOrdered By: Floyd Bolton on 06-08-2024 AST [Catalytic activity/Vol] Aspartate aminotransferase [Enzymatic activity/volume] in Serum or Plasma 13-39 [facility] Basophils Auto (Bld) [#/Vol] Ordered By: Floyd Bolton on 06-08-2024 Basophils (Bld) [#/Vol] Automated basophil count 0.0-0.2 [facility] Basophils/100 WBC Auto (Bld) Ordered By: Floyd Bolton on 06-08-2024 Basophils/100 WBC (Bld) Automated basophil % . [facility] Bilirubin.total [Mass/volume ] in Serum or PlasmaOrdered By: Floyd Bolton on 06-08-2024 Bilirubin [Mass/Vol] Bilirubin.total [Mass/volume] in Serum or Plasma High 0.3-1.0 [facility] Comment on above: Samples from patient s who have taken Naproxen have shown spurious elevation in Total Bilirubin levels. A metabolite of Naproxen, O-desmethylnaproxen, has been shown to interfere with the Adeel method for measuring Total Bilirubin. Calcium [Mass/volume] in Ser um or PlasmaOrdered By: Floyd Bolton on 06-08-2024 Calcium [Mass/Vol] Calcium [Mass/volume ] in Serum or Plasma 8.6-10.3 [facility] Carbon dioxide, total [Moles /volume] in Serum or PlasmaOrdered By: Floyd Bolton on 06-08-2024 CO2 [Moles/Vol] Carbon dioxide, tota l [Moles/volume] in Serum or Plasma 21.0-31.0 [facility] Chloride [Moles/volume] in S paulo or PlasmaOrdered By: Floyd Bolton on 06-08-2024 Chloride [Moles/Vol] Chloride [Moles/vol ume] in Serum or Plasma 98-107 [facility] Complete Blood Count Auto Di ffon 06-08-2024 Basophils (Bld) [#/Vol] 0.0 10*3/uL Normal 0.0-0.2 [facility] Comment on above: Performed By: #### C MP, CBC, ESR #### [facility] [address] [place] [address] [place] Basophils/100 WBC (Bld) 0.7 % Normal . [facility] Comment on above: Performed By: #### C MP, CBC, ESR #### [facility] [address] [place] [id number] [place] Eosinophils (Bld) [#/Vol] 0.1 10*3/uL Normal 0.0-0.45 [facility] Comment on above: Performed By: #### C MP, CBC, ESR #### [facility] [address] [place] [id number] [facility] Eosinophils/100 WBC (Bld) 2.2 % Normal . [facility] Comment on above: Performed By: #### C MP, CBC, ESR #### [facility] [address] Erythrocyte distribution width (RBC) [Ratio] 18.9 % High 12.0-14.8 [facility] Comment on above: Performed By: #### C MP, CBC, ESR #### [address] Hematocrit (Bld) [Volume fraction] 30.8 % Low 38.8-50.0 [facility] Comment on above: Performed By: #### C MP, CBC, ESR #### [address] Hemoglobin (Bld) [Mass/Vol] 10.8 g/dL Low 13.0-17.0 [facility] Comment on above: Performed By: #### C MP, CBC, ESR #### [address] Lymphocytes (Bld) [#/Vol] 0.7 10*3/uL Low 1.00-4.8 [facility] Comment on above: Performed By: #### C MP, CBC, ESR #### [address] Lymphocytes/100 WBC (Bld) 13.9 % Normal . [facility] Comment on above: Performed By: #### C MP, CBC, ESR #### [address] MCH (RBC) [Entitic mass] 32.8 pg Normal 27.5-35.2 [facility] Comment on above: Performed By: #### C MP, CBC, ESR #### [address] MCV (RBC) [Entitic vol] 93.7 fL Normal 83.5-101 [facility] Comment on above: Performed By: #### C MP, CBC, ESR #### [address] Mean Corpuscular HGB Conc 35.0 g/dL Normal 32.5-35.6 [facility] Comment on above: Performed By: #### C MP, CBC, ESR #### [facility] [address] [place] [address] [place] Monocytes (Bld) [#/Vol] 0.5 10*3/uL Normal 0.0-0.8 [facility] Comment on above: Performed By: #### C MP, CBC, ESR #### [facility] [address] [place] [address] [place] Monocytes/100 WBC (Bld) 10.7 % Normal . [facility] Comment on above: Performed By: #### C MP, CBC, ESR #### [facility] [address] Neutrophils (Bld) [#/Vol] 3.6 10*3/uL Normal 1.8-7.7 [facility] Comment on above: Performed By: #### C MP, CBC, ESR #### [address] Neutrophils/100 WBC (Bld) 72.5 % Normal . [facility] Comment on above: Performed By: #### C MP, CBC, ESR #### [address] NRBC% 0.1 /100{WBC} Normal 0-0.5 [facility] Comment on above: Performed By: #### C MP, CBC, ESR #### [address] Platelet mean volume (Bld) [Entitic vol] 8.4 fL Normal 6.6-10.1 [facility] Comment on above: Performed By: #### C MP, CBC, ESR #### [facility] [address] [place] [address] [place] Platelets (Bld) [#/Vol] 186 10*3/uL Normal 150-450 [facility] Comment on above: Performed By: #### C MP, CBC, ESR #### [place] [address] [place] RBC (Bld) [#/Vol] 3.29 10*6/uL Low 3.90-5.60 [facility] Comment on above: Performed By: #### C MP, CBC, ESR #### [address] WBC (Bld) [#/Vol] 5.0 10*3/uL Normal 4.1-10.5 [facility] Comment on above: Performed By: #### C MP, CBC, ESR #### [address] Comprehensive Metabolic Pane mike 06-08-2024 Albumin [Mass/Vol] 3.9 g/dL Normal 3.5-5.7 [facility] Comment on above: Performed By: #### C MP, CBC, ESR #### [address] Albumin/Globulin [Mass ratio] 1.4 {ratio} Normal [facility] Comment on above: Performed By: #### C MP, CBC, ESR #### [address] ALP [Catalytic activity/Vol] 54 U/L Normal 34-104 [facility] Comment on above: Result Comment: PERF ORMED BY: [place] [address] PATHOLOGIST [employer] KACI MCCLAIN M.D. Performed By: #### C MP, CBC, ESR #### [address] ALT [Catalytic activity/Vol] 17 U/L Normal 7-52 [facility] Comment on above: Performed By: #### C MP, CBC, ESR #### [address] Anion gap [Moles/Vol] 12.9 mmol/L Normal 6.0-15.0 [facility] Comment on above: Performed By: #### C MP, CBC, ESR #### [address] AST [Catalytic activity/Vol] 26 U/L Normal 13-39 [facility] Comment on above: Performed By: #### C MP, CBC, ESR #### [address] Bilirubin [Mass/Vol] 1.6 mg/dL High 0.3-1.0 [facility] Comment on above: Result Comment: Samp les from patients who have taken Naproxen have shown spurious elevation in Total Bilirubin levels. A metabolite of Naproxen, O-desmethylnaproxen, has been shown to interfere with the Jendrassik-Grof method for measuring Total Bilirubin. Performed By: #### C MP, CBC, ESR #### [address] Calcium [Mass/Vol] 9.2 mg/dL Normal 8.6-10.3 [facility] Comment on above: Performed By: #### C MP, CBC, ESR #### [address] Chloride [Moles/Vol] 106 mmol/L Normal 98-107 [facility] Comment on above: Performed By: #### C MP, CBC, ESR #### [address] CO2 [Moles/Vol] 24.9 mmol/L Normal 21.0-31.0 [facility] Comment on above: Performed By: #### C MP, CBC, ESR #### [address] Creatinine [Mass/Vol] 1.28 mg/dL Normal 0.70-1.30 [facility] Comment on above: Performed By: #### C MP, CBC, ESR #### [address] Estimated GFR 55.879 mL/Min Normal [facility] Comment on above: Performed By: #### C MP, CBC, ESR #### [address] Globulin (S) [Mass/Vol] 2.7 g/dL Normal [facility] Comment on above: Performed By: #### C MP, CBC, ESR #### [place] [address] [place] Glucose [Mass/Vol] 137 mg/dL High 70-100 [facility] Comment on above: Result Comment: [facility] Glucose Reference Range is dependent on time and content of last meal. Glucose of more than 200 mg/dL in a nonstressed, ambulatory subject supports the diagnosis of Diabetes Mellitus. ADA recommended reference range Performed By: #### C MP, CBC, ESR #### [facility] [address] Potassium [Moles/Vol] 3.8 mmol/L Normal 3.5-5.1 [facility] Comment on above: Performed By: #### C MP, CBC, ESR #### [facility] [address] Protein [Mass/Vol] 6.6 g/dL Normal 6.4-8.9 [facility] Comment on above: Performed By: #### C MP, CBC, ESR #### [facility] [address] Sodium [Moles/Vol] 140 mmol/L Normal 136-145 [facility] Comment on above: Performed By: #### C MP, CBC, ESR #### [facility] [address] [place] [address] [place] Urea nitrogen [Mass/Vol] 28 mg/dL High 7-25 [facility] Comment on above: Performed By: #### C MP, CBC, ESR #### [facility] [address] Creatinine [Mass/volume] in Serum or PlasmaOrdered By: Floyd Bolton on 06-08-2024 Creatinine [Mass/Vol] Creatinine [Mass/v olume] in Serum or Plasma 0.70-1.30 [facility] Eosinophils Auto (Bld) [#/Vo l]Ordered By: Floyd Bolton on 06-08-2024 Eosinophils (Bld) [#/Vol] Automated eosinophil count 0.0-0.45 [facility] Eosinophils/100 WBC Auto (Bl d)Ordered By: Floyd Bolton on 06-08-2024 Eosinophils/100 WBC (Bld) Automated eosinophil % . [facility] Erythrocyte Sedimentation Ra umesh 06-08-2024 ESR (Bld) [Velocity] 19 mm/h Normal 0-19 [facility] Comment on above: Result Comment: PERF ORMED BY: [facility] [address] [place] [address] PATHOLOGIST [employer] KACI MCCLAIN M.D. Performed By: #### C MP, CBC, ESR #### [address] Erythrocyte distribution wid th Auto (RBC) [Ratio]Ordered By: Floyd Bolton on 06-08-2024 Erythrocyte distribution width (RBC) [Ratio] Erythrocyte distribution width [Ratio] by Automated count High 12.0-14.8 [facility] Erythrocyte sedimentation ra te by Photometric methodOrdered By: Floyd Bolton on 06-08-2024 ESR Photometric method (Bld) [Velocity] Erythrocyte sedimentation rate by Photometric method 0-19 [facility] Globulin Calc (S) [Mass/Vol] Ordered By: Floyd Bolton on 06-08-2024 Globulin (S) [Mass/Vol] Serum globulin measurement by calculation (mass/volume) [facility] Glucose [Mass/volume] in Ser um or PlasmaOrdered By: Floyd Bolton on 06-08-2024 Glucose [Mass/Vol] Glucose [Mass/volume ] in Serum or Plasma High 70-100 [facility] Comment on above: ADA recommended [...] of Blood by Automated count Low 38.8-50.0 [facility] Hemoglobin [Mass/volume] in BloodOrdered By: Floyd Bolton on 06-08-2024 Hemoglobin (Bld) [Mass/Vol] Hemoglobin [Mass/volume] in Blood Low 13.0-17.0 [facility] Leukocytes [#/volume] correc liborio for nucleated erythrocytes in Blood by Automated counOrdered By: Floyd Bolton on 06-08-2024 WBC corrected for nucl RBC Auto (Bld) [#/Vol] Leukocytes [#/volume] corrected for nucleated erythrocytes in Blood by Automated coun 4.1-10.5 [facility] Lymphocytes Auto (Bld) [#/Vo l]Ordered By: Floyd Bolton on 06-08-2024 Lymphocytes (Bld) [#/Vol] Lymphocytes [#/volume] in Blood by Automated count Low 1.00-4.8 [facility] Lymphocytes/100 WBC Auto (Bl d)Ordered By: Floyd Bolton on 06-08-2024 Lymphocytes/100 WBC (Bld) Lymphocytes/100 leukocytes in Blood by Automated count . [facility] MCH Auto (RBC) [Entitic mass ]Ordered By: Floyd Bolton on 06-08-2024 MCH (RBC) [Entitic mass] MCH [Entitic mass] by Automated count 27.5-35.2 [facility] MCHC Auto (RBC) [Mass/Vol]Or dered By: Floyd Boltno on 06-08-2024 MCHC (RBC) [Mass/Vol] MCHC [Mass/volume] by Automated count 32.5-35.6 [facility] MCV Auto (RBC) [Entitic vol] Ordered By: Floyd Bolton on 06-08-2024 MCV (RBC) [Entitic vol] MCV [Entitic volume] by Automated count 83.5-101 [facility] Monocytes Auto (Bld) [#/Vol] Ordered By: Floyd Bolton on 06-08-2024 Monocytes (Bld) [#/Vol] Automated blood monocyte count 0.0-0.8 [facility] Monocytes/100 WBC Auto (Bld) Ordered By: Floyd Bolton on 06-08-2024 Monocytes/100 WBC (Bld) Automated monocyte % . [facility] Neutrophils Auto (Bld) [#/Vo l]Ordered By: Floyd Bolton on 06-08-2024 Neutrophils (Bld) [#/Vol] Neutrophils [#/volume] in Blood by Automated count 1.8-7.7 [facility] Neutrophils/100 WBC Auto (Bl d)Ordered By: Floyd Bolton on 06-08-2024 Neutrophils/100 WBC (Bld) Automated neutrophil % . [facility] No Panel InformationOrdered By: Floyd Bolton on 06-08-2024 Estimated GFR (CKD-EPI) 55.879 mL/Min [facility] Creatinine Clearance (Chem N/A [facility] Nucleated erythrocytes [Pres ence] in Blood by Automated countOrdered By: Floyd Bolton on 06-08-2024 Nucleated RBC Auto Ql (Bld) Nucleated erythrocytes [Presence] in Blood by Automated count 0-0.5 [facility] Platelet mean volume Auto (B ld) [Entitic vol]Ordered By: Floyd Bolton on 06-08-2024 Platelet mean volume (Bld) [Entitic vol] Platelet mean volume [Entitic volume] in Blood by Automated count 6.6-10.1 [facility] Platelets Auto (Bld) [#/Vol] Ordered By: Floyd Bolton on 06-08-2024 Platelets (Bld) [#/Vol] Platelets [#/volume] in Blood by Automated count 150-450 [facility] Potassium [Moles/volume] in Serum or PlasmaOrdered By: Floyd Bolton on 06-08-2024 Potassium [Moles/Vol] Potassium [Moles/v olume] in Serum or Plasma 3.5-5.1 [facility] Protein [Mass/volume] in Ser um or PlasmaOrdered By: Floyd Bolton on 06-08-2024 Protein [Mass/Vol] Protein [Mass/volume ] in Serum or Plasma 6.4-8.9 [facility] RBC Auto (Bld) [#/Vol]Ordere d By: Floyd Bolton on 06-08-2024 RBC (Bld) [#/Vol] Erythrocytes [#/volu me] in Blood by Automated count Low 3.90-5.60 [facility] Serum or plasma albumin/glob ulin mass ratioOrdered By: Floyd Bolton on 06-08-2024 Albumin/Globulin [Mass ratio] Serum or plasma albumin/globulin mass ratio [facility] Serum or plasma anion gap de terminationOrdered By: Floyd Bolton on 06-08-2024 Anion gap [Moles/Vol] Serum or plasma an ion gap determination 6.0-15.0 [facility] Sodium [Moles/volume] in Ser um or PlasmaOrdered By: Floyd Bolton on 06-08-2024 Sodium [Moles/Vol] Sodium [Moles/volume ] in Serum or Plasma 136-145 [facility] Urea nitrogen [Mass/volume] in Serum or PlasmaOrdered By: Floyd Bolton on 06-08-2024 Urea nitrogen [Mass/Vol] Urea nitrogen [Mass/volume] in Serum or Plasma High 7-25 [facility] WBC Auto (Bld) [#/Vol]Ordere d By: Floyd Bolton on 06-08-2024 WBC (Bld) [#/Vol] Leukocytes [#/volume ] in Blood by Automated count 4.1-10.5 [facility] Alanine aminotransferase [En zymatic activity/volume] in Serum or PlasmaOrdered By: Floyd Bolton on 04-12-2024 ALT [Catalytic activity/Vol] Alanine aminotransferase [Enzymatic activity/volume] in Serum or Plasma 7-52 [facility] Albumin [Mass/volume] in Ser um or Plasma by Bromocresol green (BCG) dye binding methoOrdered By: Floyd Bolton on 04-12-2024 Albumin BCG dye [Mass/Vol] Albumin [Mass/volume] in Serum or Plasma by Bromocresol green (BCG) dye binding metho 3.5-5.7 [facility] Alkaline phosphatase [Enzyma tic activity/volume] in Serum or PlasmaOrdered By: Floyd Bolton on 04-12-2024 ALP [Catalytic activity/Vol] Alkaline phosphatase [Enzymatic activity/volume] in Serum or Plasma 34-104 [facility] Aspartate aminotransferase [ Enzymatic activity/volume] in Serum or PlasmaOrdered By: Floyd Bolton on 04-12-2024 AST [Catalytic activity/Vol] Aspartate aminotransferase [Enzymatic activity/volume] in Serum or Plasma 13-39 [facility] Basophils Auto (Bld) [#/Vol] Ordered By: Floyd Bolton on 04-12-2024 Basophils (Bld) [#/Vol] Automated basophil count 0.0-0.2 [facility] Basophils/100 WBC Auto (Bld) Ordered By: Floyd Bolton on 01-15-2025 Basophils/100 WBC (Bld) Automated basophil % . [facility] Bilirubin.total [Mass/volume ] in Serum or PlasmaOrdered By: Floyd Bolton on 04-12-2024 Bilirubin [Mass/Vol] Bilirubin.total [Mass/volume] in Serum or Plasma High 0.3-1.0 [facility] Comment on above: Samples from patient s who have taken Naproxen have shown spurious elevation in Total Bilirubin levels. A metabolite of Naproxen, O-desmethylnaproxen, has been shown to interfere with the Femi-Batsheva method for measuring Total Bilirubin. Calcium [Mass/volume] in Ser um or PlasmaOrdered By: Floyd Bolton on 04-12-2024 Calcium [Mass/Vol] Calcium [Mass/volume ] in Serum or Plasma 8.6-10.3 [facility] Carbon dioxide, total [Moles /volume] in Serum or PlasmaOrdered By: Floyd Bolton on 04-12-2024 CO2 [Moles/Vol] Carbon dioxide, tota l [Moles/volume] in Serum or Plasma 21.0-31.0 [facility] Chloride [Moles/volume] in S paulo or PlasmaOrdered By: Floyd Bolton on 04-12-2024 Chloride [Moles/Vol] Chloride [Moles/vol ume] in Serum or Plasma 98-107 [facility] Complete Blood Count Auto Di ffon 04-12-2024 Basophils (Bld) [#/Vol] 0.0 10*3/uL Normal 0.0-0.2 [facility] Comment on above: Performed By: #### C MP, CBC, ESR #### [address] Basophils/100 WBC (Bld) 0.5 % Normal . [facility] Comment on above: Performed By: #### C MP, CBC, ESR #### [address] Eosinophils (Bld) [#/Vol] 0.1 10*3/uL Normal 0.0-0.45 [facility] Comment on above: Performed By: #### C MP, CBC, ESR #### [address] Eosinophils/100 WBC (Bld) 1.2 % Normal . [facility] Comment on above: Performed By: #### C MP, CBC, ESR #### [address] Erythrocyte distribution width (RBC) [Ratio] 18.1 % High 12.0-14.8 [facility] Comment on above: Performed By: #### C MP, CBC, ESR #### [address] Hematocrit (Bld) [Volume fraction] 32.8 % Low 38.8-50.0 [facility] Comment on above: Performed By: #### C MP, CBC, ESR #### [address] Hemoglobin (Bld) [Mass/Vol] 11.0 g/dL Low 13.0-17.0 [facility] Comment on above: Performed By: #### C MP, CBC, ESR #### [address] Lymphocytes (Bld) [#/Vol] 0.6 10*3/uL Low 1.00-4.8 [facility] Comment on above: Performed By: #### C MP, CBC, ESR #### [address] Lymphocytes/100 WBC (Bld) 8.3 % Normal . [facility] Comment on above: Performed By: #### C MP, CBC, ESR #### [address] MCH (RBC) [Entitic mass] 31.1 pg Normal 27.5-35.2 [facility] Comment on above: Performed By: #### C MP, CBC, ESR #### [address] MCV (RBC) [Entitic vol] 92.8 fL Normal 83.5-101 [facility] Comment on above: Performed By: #### C MP, CBC, ESR #### [address] Mean Corpuscular HGB Conc 33.5 g/dL Normal 32.5-35.6 [facility] Comment on above: Performed By: #### C MP, CBC, ESR #### [address] Monocytes (Bld) [#/Vol] 0.9 10*3/uL High 0.0-0.8 [facility] Comment on above: Performed By: #### C MP, CBC, ESR #### [address] Monocytes/100 WBC (Bld) 11.5 % Normal . [facility] Comment on above: Performed By: #### C MP, CBC, ESR #### [address] Neutrophils (Bld) [#/Vol] 6.0 10*3/uL Normal 1.8-7.7 [facility] Comment on above: Performed By: #### C MP, CBC, ESR #### [address] Neutrophils/100 WBC (Bld) 78.5 % Normal . [facility] Comment on above: Performed By: #### C MP, CBC, ESR #### [address] NRBC% 0.1 /100{WBC} Normal 0-0.5 [facility] Comment on above: Performed By: #### C MP, CBC, ESR #### [place] [address] [place] Platelet mean volume (Bld) [Entitic vol] 9.2 fL Normal 6.6-10.1 [facility] Comment on above: Performed By: #### C MP, CBC, ESR #### [place] [address] [place] Platelets (Bld) [#/Vol] 147 10*3/uL Low 150-450 [facility] Comment on above: Performed By: #### C MP, CBC, ESR #### [address] RBC (Bld) [#/Vol] 3.53 10*6/uL Low 3.90-5.60 [facility] Comment on above: Performed By: #### C MP, CBC, ESR #### [address] WBC (Bld) [#/Vol] 7.7 10*3/uL Normal 4.1-10.5 [facility] Comment on above: Performed By: #### C MP, CBC, ESR #### [address] Comprehensive Metabolic Pane mike 04-12-2024 Albumin [Mass/Vol] 3.7 g/dL Normal 3.5-5.7 [facility] Comment on above: Performed By: #### C MP, CBC, ESR #### [address] Albumin/Globulin [Mass ratio] 1.3 {ratio} Normal [facility] Comment on above: Performed By: #### C MP, CBC, ESR #### [address] ALP [Catalytic activity/Vol] 50 U/L Normal 34-104 [facility] Comment on above: Result Comment: PERF ORMED BY: [place] [address] PATHOLOGIST PAPER MILL SUPERINTENDENT KACI MCCLAIN M.D. Performed By: #### C MP, CBC, ESR #### [address] ALT [Catalytic activity/Vol] 22 U/L Normal 7-52 [facility] Comment on above: Performed By: #### C MP, CBC, ESR #### [address] Anion gap [Moles/Vol] 13.6 mmol/L Normal 6.0-15.0 [facility] Comment on above: Performed By: #### C MP, CBC, ESR #### [facility] [address] [id number] [place] AST [Catalytic activity/Vol] 23 U/L Normal 13-39 [facility] Comment on above: Performed By: #### C MP, CBC, ESR #### [facility] [address] [id number] [place] Bilirubin [Mass/Vol] 1.7 mg/dL High 0.3-1.0 [facility] Comment on above: Result Comment: Samp les from patients who have taken Naproxen have shown spurious elevation in Total Bilirubin levels. A metabolite of Naproxen, O-desmethylnaproxen, has been shown to interfere with the Jendrjocelyneik-Grof method for measuring Total Bilirubin. Performed By: #### C MP, CBC, ESR #### [facility] [address] [place] [address] [place] Calcium [Mass/Vol] 9.1 mg/dL Normal 8.6-10.3 [facility] Comment on above: Performed By: #### C MP, CBC, ESR #### [facility] [address] [place] [address] [place] Chloride [Moles/Vol] 104 mmol/L Normal 98-107 [facility] Comment on above: Performed By: #### C MP, CBC, ESR #### [facility] [address] [place] [address] [place] CO2 [Moles/Vol] 26.6 mmol/L Normal 21.0-31.0 [facility] Comment on above: Performed By: #### C MP, CBC, ESR #### [facility] [address] [id number] [place] Creatinine [Mass/Vol] 1.00 mg/dL Normal 0.70-1.30 [facility] Comment on above: Performed By: #### C MP, CBC, ESR #### [facility] [address] [id number] [place] GFR/1.73 sq M.predicted MDRD (S/P/Bld) [Vol rate/Area] mL/min/{1.73_m2} Normal [facility] Comment on above: Performed By: #### C MP, CBC, ESR #### [address] Globulin (S) [Mass/Vol] 2.8 g/dL Normal [facility] Comment on above: Performed By: #### C MP, CBC, ESR #### [address] Glucose [Mass/Vol] 135 mg/dL High 70-100 [facility] Comment on above: Result Comment: [facility] Glucose Reference Range is dependent on time and content of last meal. Glucose of more than 200 mg/dL in a nonstressed, ambulatory subject supports the diagnosis of Diabetes Mellitus. ADA recommended reference range Performed By: #### C MP, CBC, ESR #### [address] Potassium [Moles/Vol] 3.2 mmol/L Low 3.5-5.1 [facility] Comment on above: Performed By: #### C MP, CBC, ESR #### [address] Protein [Mass/Vol] 6.5 g/dL Normal 6.4-8.9 [facility] Comment on above: Performed By: #### C MP, CBC, ESR #### [address] Sodium [Moles/Vol] 141 mmol/L Normal 136-145 [facility] Comment on above: Performed By: #### C MP, CBC, ESR #### [address] Urea nitrogen [Mass/Vol] 23 mg/dL Normal 7-25 [facility] Comment on above: Performed By: #### C MP, CBC, ESR #### [place] [address] [place] Creatinine [Mass/volume] in Serum or PlasmaOrdered By: Floyd Bolton on 04-12-2024 Creatinine [Mass/Vol] Creatinine [Mass/v olume] in Serum or Plasma 0.70-1.30 [facility] Eosinophils Auto (Bld) [#/Vo l]Ordered By: Floyd Bolton on 04-12-2024 Eosinophils (Bld) [#/Vol] Automated eosinophil count 0.0-0.45 [facility] Eosinophils/100 WBC Auto (Bl d)Ordered By: Floyd Bolton on 04-12-2024 Eosinophils/100 WBC (Bld) Automated eosinophil % . [facility] Erythrocyte Sedimentation Ra umesh 04-12-2024 ESR (Bld) [Velocity] 13 mm/h Normal 0-19 [facility] Comment on above: Result Comment: PERF ORMED BY: [facility] [address] [place] [address] PATHOLOGIST PAPER MILL SUPERINTENDENT KACI MCCLAIN M.D. Performed By: #### C MP, CBC, ESR #### [address] Erythrocyte distribution wid th Auto (RBC) [Ratio]Ordered By: Floyd Bolton on 04-12-2024 Erythrocyte distribution width (RBC) [Ratio] Erythrocyte distribution width [Ratio] by Automated count High 12.0-14.8 [facility] Erythrocyte sedimentation ra te by Photometric methodOrdered By: Floyd Bolton on 04-12-2024 ESR Photometric method (Bld) [Velocity] Erythrocyte sedimentation rate by Photometric method 0-19 [facility] Globulin Calc (S) [Mass/Vol] Ordered By: Floyd Bolton on 04-12-2024 Globulin (S) [Mass/Vol] Serum globulin measurement by calculation (mass/volume) [facility] Glucose [Mass/volume] in Ser um or PlasmaOrdered By: Floyd Bolton on 04-12-2024 Glucose [Mass/Vol] Glucose [Mass/volume ] in Serum or Plasma High 70-100 [facility] Comment on above: ADA recommended [...] of Blood by Automated count Low 38.8-50.0 [facility] Hemoglobin [Mass/volume] in BloodOrdered By: Floyd Bolton on 04-12-2024 Hemoglobin (Bld) [Mass/Vol] Hemoglobin [Mass/volume] in Blood Low 13.0-17.0 [facility] Leukocytes [#/volume] correc liborio for nucleated erythrocytes in Blood by Automated counOrdered By: Floyd Bolton on 04-12-2024 WBC corrected for nucl RBC Auto (Bld) [#/Vol] Leukocytes [#/volume] corrected for nucleated erythrocytes in Blood by Automated coun 4.1-10.5 [facility] Lymphocytes Auto (Bld) [#/Vo l]Ordered By: Floyd Bolton on 04-12-2024 Lymphocytes (Bld) [#/Vol] Lymphocytes [#/volume] in Blood by Automated count Low 1.00-4.8 [facility] Lymphocytes/100 WBC Auto (Bl d)Ordered By: Floyd Bolton on 04-12-2024 Lymphocytes/100 WBC (Bld) Lymphocytes/100 leukocytes in Blood by Automated count . [facility] MCH Auto (RBC) [Entitic mass ]Ordered By: Floyd Bolton on 04-12-2024 MCH (RBC) [Entitic mass] MCH [Entitic mass] by Automated count 27.5-35.2 [facility] MCHC Auto (RBC) [Mass/Vol]Or dered By: Floyd Bolton on 04-12-2024 MCHC (RBC) [Mass/Vol] MCHC [Mass/volume] by Automated count 32.5-35.6 [facility] MCV Auto (RBC) [Entitic vol] Ordered By: Floyd Bolton on 04-12-2024 MCV (RBC) [Entitic vol] MCV [Entitic volume] by Automated count 83.5-101 [facility] Monocytes Auto (Bld) [#/Vol] Ordered By: Floyd Bolton on 04-12-2024 Monocytes (Bld) [#/Vol] Automated blood monocyte count High 0.0-0.8 [facility] Monocytes/100 WBC Auto (Bld) Ordered By: Floyd Bolton on 04-12-2024 Monocytes/100 WBC (Bld) Automated monocyte % . [facility] Neutrophils Auto (Bld) [#/Vo l]Ordered By: Floyd Bolton on 04-12-2024 Neutrophils (Bld) [#/Vol] Neutrophils [#/volume] in Blood by Automated count 1.8-7.7 [facility] Neutrophils/100 WBC Auto (Bl d)Ordered By: Floyd Bolton on 04-12-2024 Neutrophils/100 WBC (Bld) Automated neutrophil % . [facility] No Panel InformationOrdered By: Floyd Bolton on 04-12-2024 Estimated GFR (CKD-EPI) > 60.0 mL/Min [facility] Creatinine Clearance (Chem N/A [facility] Nucleated erythrocytes [Pres ence] in Blood by Automated countOrdered By: Floyd Bolton on 04-12-2024 Nucleated RBC Auto Ql (Bld) Nucleated erythrocytes [Presence] in Blood by Automated count 0-0.5 [facility] Platelet mean volume Auto (B ld) [Entitic vol]Ordered By: Floyd Bolton on 04-12-2024 Platelet mean volume (Bld) [Entitic vol] Platelet mean volume [Entitic volume] in Blood by Automated count 6.6-10.1 [facility] Platelets Auto (Bld) [#/Vol] Ordered By: Floyd Bolton on 04-12-2024 Platelets (Bld) [#/Vol] Platelets [#/volume] in Blood by Automated count Low 150-450 [facility] Potassium [Moles/volume] in Serum or PlasmaOrdered By: Floyd Bolton on 04-12-2024 Potassium [Moles/Vol] Potassium [Moles/v olume] in Serum or Plasma Low 3.5-5.1 [facility] Protein [Mass/volume] in Ser um or PlasmaOrdered By: Floyd Bolton on 04-12-2024 Protein [Mass/Vol] Protein [Mass/volume ] in Serum or Plasma 6.4-8.9 [facility] RBC Auto (Bld) [#/Vol]Ordere d By: Floyd Bolton on 04-12-2024 RBC (Bld) [#/Vol] Erythrocytes [#/volu me] in Blood by Automated count Low 3.90-5.60 [facility] Serum or plasma albumin/glob ulin mass ratioOrdered By: Floyd Bolton on 04-12-2024 Albumin/Globulin [Mass ratio] Serum or plasma albumin/globulin mass ratio [facility] Serum or plasma anion gap de terminationOrdered By: Floyd Bolton on 04-12-2024 Anion gap [Moles/Vol] Serum or plasma an ion gap determination 6.0-15.0 [facility] Sodium [Moles/volume] in Ser um or PlasmaOrdered By: Floyd Bolton on 04-12-2024 Sodium [Moles/Vol] Sodium [Moles/volume ] in Serum or Plasma 136-145 [facility] Urea nitrogen [Mass/volume] in Serum or PlasmaOrdered By: Floyd Bolton on 04-12-2024 Urea nitrogen [Mass/Vol] Urea nitrogen [Mass/volume] in Serum or Plasma 7-25 [facility] WBC Auto (Bld) [#/Vol]Ordere d By: Floyd Bolton on 04-12-2024 WBC (Bld) [#/Vol] Leukocytes [#/volume ] in Blood by Automated count 4.1-10.5 [facility] TRANSTHORACIC ECHO (TTE) COM PLETEon 01-12-2024 TRANSTHORACIC ECHO (TTE) COMPLETE [address], [address] [place] [address] TRANSTHORACIC ECHOCARDIOGRAM REPORT Patient Name: SHAHID Haywood Physician: [id number] Pinedo MD Study Date: 01/12/2024 Ordering Provider: [id number] MOLINA MRN/PID: [id number] Fellow: Nurse: Date of /Age: 7 1940 / 83 years Insurance Adjustor: Wen Ron RDCS, [place], RVT Gender: M Additional Staff: Height: 180.34 cm Admit Date: Weight: 90.27 kg Admission Status: Outpatient BSA / BMI: 2.10 m2 / 27.76 Department Location: [facility] kg/[address] Blood Pressure: 134 /62 mmHg Study Type: TRANSTHORACIC ECHO (TTE) COMPLETE Diagnosis/ICD: 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 Evolut FX #34, HX , AFib, CAD, CHF, HTN, DM, Pacemaker, Dilated CM, CPT Codes: Echo Complete w Full Doppler-[id number] Study Detail: The following Echo studies were [...] 0.7 m/s (0.6-0.9m/s) PV Max P.2 mmHg 29610 Joby Pinedo MD Electronically signed on 01/17/2024 at 3:44:31 PM Final Normal [facility] CBC panel Auto (Bld)on 11-12 Erythrocyte distribution width (RBC) [Ratio] 16.8 % High 11.5 - 14.5 % [facility] Hematocrit (Bld) [Volume fraction] 27.9 % Low 41.0 - 52.0 % [facility] Hemoglobin (Bld) [Mass/Vol] 9.2 g/dL Low 13.5 - 17.5 g/dL [facility] Interpretation and review of laboratory results Abnormal [facility] MCH (RBC) [Entitic mass] 31.4 pg 26.0 - 34.0 pg [facility] MCHC (RBC) [Mass/Vol] 33.0 g/dL 32.0 - 36.0 g/dL [facility] MCV (RBC) [Entitic vol] 95 fL 80 - 100 fL [facility] Nucleated RBC/100 WBC (Bld) [Ratio] 0.0 % [facility] Platelets (Bld) [#/Vol] 221 10*3/uL [facility] RBC (Bld) [#/Vol] 2.93 10*6/uL Low [facility] WBC (Bld) [#/Vol] 8.9 10*3/uL [facility] Erythrocyte distribution width (RBC) [Ratio] 16.8 % High 11.5-14.5 [facility] Comment on above: Performed By: #### 5 8410-2 #### CHRIST Jung ([id number]) [facility] ([facility]) [id number] [place] [address] Hematocrit (Bld) [Volume fraction] 27.9 % Low 41.0-52.0 [facility] Comment on above: Performed By: #### 5 8410-2 #### CHRIST Jung ([id number]) [facility] ([facility]) [address] [place] [address] Hemoglobin (Bld) [Mass/Vol] 9.2 g/dL Low 13.5-17.5 [facility] Comment on above: Performed By: #### 5 8410-2 #### CHRIST Jung ([id number]) [facility] ([facility]) [address] [place] [address] MCH (RBC) [Entitic mass] 31.4 pg Normal 26.0-34.0 [facility] Comment on above: Performed By: #### 5 8410-2 #### CHRIST Jung ([id number]) [facility] ([facility]) [address] [place] [address] MCHC (RBC) [Mass/Vol] 33.0 g/dL Normal 32.0-36.0 [facility] Comment on above: Performed By: #### 5 8410-2 #### CHRIST Jung ([id number]) [facility] ([facility]) [address] [place] [address] MCV (RBC) [Entitic vol] 95 fL Normal 80-100 [facility] Comment on above: Performed By: #### 5 8410-2 #### CHRIST Jung ([id number]) [facility] ([facility]) [address] [place] [address]36 Nucleated RBC/100 WBC (Bld) [Ratio] 0.0 /100 WBCs Normal 0.0-0.0 [facility] Comment on above: Performed By: #### 5 8410-2 #### CHRIST Jung ([id number]) [facility] ([facility]) [address] [place] [address] Platelets (Bld) [#/Vol] 221 x10*3/uL Normal 150-450 [facility] Comment on above: Performed By: #### 5 8410-2 #### CHRIST Jung ([id number]) [facility] ([facility]) [address] [place] [address] 33010 RBC (Bld) [#/Vol] 2.93 x10*6/uL Low 4.50-5.90 [facility] Comment on above: Performed By: #### 5 8410-2 #### CHRIST Jung ([id number]) [facility] ([facility]) [address] [place] [address] WBC (Bld) [#/Vol] 8.9 x10*3/uL Normal 4.4-11.3 [facility] Comment on above: Performed By: #### 5 8410-2 #### CHRIST Jung ([id number]) [facility] ([facility]) [address] [place] [address] Comprehensive metabolic 2000 panelon 11-13-2023 Albumin BCP dye [Mass/Vol] 3.4 g/dL 3.4 - 5.0 g/dL [facility] ALP [Catalytic activity/Vol] 60 U/L 33 - 136 U/L [facility] ALT With P-5'-P [Catalytic activity/Vol] 13 U/L 10 - 52 U/L [facility] Anion gap [Moles/Vol] 17 mmol/L 10 - 2 0 mmol/L [facility] AST With P-5'-P [Catalytic activity/Vol] 20 U/L 9 - 39 U/L [facility] Bilirubin [Mass/Vol] 0.8 mg/dL 0.0 - 1 .2 mg/dL [facility] Calcium [Mass/Vol] 8.9 mg/dL 8.6 - 10. 6 mg/dL [facility] Chloride [Moles/Vol] 101 mmol/L 98 - 10 7 mmol/L [facility] CO2 [Moles/Vol] 23 mmol/L 21 - 32 mmol/L [facility] Creatinine [Mass/Vol] 1.51 mg/dL High 0.50 - 1.30 mg/dL [facility] GFR/1.73 sq M.predicted among non-blacks MDRD (S/P/Bld) [Vol rate/Area] 46 mL/min/{1.73_m2} Low - PINF [facility] Glucose [Mass/Vol] 250 mg/dL High 74 - 99 mg/dL [facility] Interpretation and review of laboratory results Abnormal [facility] Potassium [Moles/Vol] 3.9 mmol/L 3.5 - 5.3 mmol/L [facility] Protein [Mass/Vol] 6.5 g/dL 6.4 - 8.2 g/dL [facility] Sodium [Moles/Vol] 137 mmol/L 136 - 145 mmol/L [facility] Urea nitrogen [Mass/Vol] 29 mg/dL High 6 - 23 mg/dL [facility] Albumin BCP dye [Mass/Vol] 3.4 g/dL Normal 3.4-5.0 [facility] Comment on above: Performed By: #### 2 4323-8 #### CHRIST Jung ([id number]) [facility] ([facility]) [address] [place] [address] ALP [Catalytic activity/Vol] 60 U/L Normal 33-136 [facility] Comment on above: Performed By: #### 2 4323-8 #### CHRIST Jung ([id number]) [facility] ([facility]) [address] [place] [address] ALT With P-5'-P [Catalytic activity/Vol] 13 U/L Normal 10-52 [facility] Comment on above: Result Comment: Yenni ents treated with Sulfasalazine may generate falsely decreased results for ALT. Performed By: #### 2 4323-8 #### CHRIST Jung ([id number]) [facility] ([facility]) [address] [place] [address] Anion gap [Moles/Vol] 17 mmol/L Normal 10-20 [facility] Comment on above: Performed By: #### 2 4323-8 #### CHRIST Jung ([id number]) [facility] ([facility]) [address] [place] [address] 6[address] AST With P-5'-P [Catalytic activity/Vol] 20 U/L Normal 9-39 [facility] Comment on above: Performed By: #### 2 4323-8 #### CHRIST CHIRINOS L ([id number]) [facility] ([facility]) [address] [place] [address] Bilirubin [Mass/Vol] 0.8 mg/dL Normal 0.0-1.2 [facility] Comment on above: Performed By: #### 2 4323-8 #### CHRIST MARCELINOER L ([id number]) [facility] ([facility]) [address] [place] [address] Calcium [Mass/Vol] 8.9 mg/dL Normal 8.6-10.6 [facility] Comment on above: Performed By: #### 2 4323-8 #### CHRIST CHIRINOS L ([id number]) [facility] ([facility]) [address] [place] [address] Chloride [Moles/Vol] 101 mmol/L Normal 98-107 [facility] Comment on above: Performed By: #### 2 4323-8 #### CHRIST CHIUMOTZER L ([id number]) [facility] ([facility]) [address] [place] [address] CO2 [Moles/Vol] 23 mmol/L Normal 21-32 [facility] Comment on above: Performed By: #### 2 4323-8 #### CHRIST CHIUMOTZER L ([id number]) [facility] ([facility]) [address] [place] [address] Creatinine [Mass/Vol] 1.51 mg/dL High 0.50-1.30 [facility] Comment on above: Performed By: #### 2 4323-8 #### CHRIST CHIUMOTZER L ([id number]) [facility] ([facility]) [address] [place] [address]2476 Glomerular filtration rate/1.73 sq M.predicted 46 mL/min/1.73m*2 Low >60 [facility] Comment on above: Result Comment: Calc ulations of estimated GFR are performed using the 2020 CKD-EPI Study Refit equation without the race variable for the IDMS-Traceable creatinine methods. https://jasn.asnjournals.org/content//ASN.55834 76820 Performed By: #### 2 4323-8 #### CHRIST Jung ([id number]) [facility] ([facility]) [address] [place] [address] Glucose [Mass/Vol] 250 mg/dL High 74-99 [facility] Comment on above: Performed By: #### 2 4323-8 #### CHRIST Jung ([id number]) [facility] ([facility]) [address] [place] [address] 21172 Potassium [Moles/Vol] 3.9 mmol/L Normal 3.5-5.3 [facility] Comment on above: Performed By: #### 2 4323-8 #### CHRIST Jung ([id number]) [facility] ([facility]) [address] [place] [address] 46020 Protein [Mass/Vol] 6.5 g/dL Normal 6.4-8.2 [facility] Comment on above: Performed By: #### 2 4323-8 #### CHRIST Jung ([id number]) [facility] ([facility]) [address] [place] [address]46 Sodium [Moles/Vol] 137 mmol/L Normal 136-145 [facility] Comment on above: Performed By: #### 2 4323-8 #### CHRIST Jung ([id number]) [facility] ([facility]) [address] [place] [address] 93181 Urea nitrogen [Mass/Vol] 29 mg/dL High 6-23 [facility] Comment on above: Performed By: #### 2 4323-8 #### CHRIST Jung ([id number]) [facility] ([facility]) [address] [place] [address] 95849 Glucose Test strip manual (B ld) [Mass/Vol]on 11-13-2023 Glucose [Mass/Vol] 145 mg/dL High 74 - 99 mg/dL [facility] Interpretation and review of laboratory results Abnormal [facility] Glucose [Mass/Vol] 145 mg/dL High 74-99 [facility] Comment on above: Performed By: #### 2 341-6 #### CHRIST Jung ([id number]) [facility] ([facility]) [address] [place] [address] 31737 Glucose [Mass/Vol] 135 mg/dL High 74 - 99 mg/dL [facility] Interpretation and review of laboratory results Abnormal [facility] Glucose [Mass/Vol] 135 mg/dL High 74-99 [facility] Comment on above: Performed By: #### 2 341-6 #### CHRIST Jung ([id number]) [facility] ([facility]) [address] [place] [address] 16928 Heparin Assay, UFHon 024 Heparin unfractionated Chromogenic method Qn (PPP) 0.2 See Comment Below for Therapeutic Ranges IU/mL [facility] Heparin unfractionated Chromogenic method Qn (PPP) 0.1 See Comment Below for Therapeutic Ranges IU/mL [facility] Heparin unfractionated Chrom ogenic method Qn (PPP)on 11-13-2023 Interpretation and review of laboratory results Normal [facility] Interpretation and review of laboratory results Normal [facility] Heparin.unfractionatedon Heparin unfractionated Chromogenic method Qn (PPP) 0.2 IU/mL Normal See Comment Below for Therapeutic Ranges [facility] Comment on above: Order Comment: Obtai n [...] please refer to local Pharmacy and the [facility] Guidelines for Anticoagulation Therapy available on the [facility] intranet at: [email or web address] Performed By: #### 3 274-8 #### CHRIST Jung ([id number]) [facility] ([facility]) [address] [place] [address] 84078 Magnesiumon 11-13-2023 Magnesium [Mass/Vol] 2.12 mg/dL 1.60 - 2.40 mg/dL [facility] Magnesium [Mass/Vol] 2.12 mg/dL Normal 1.60-2.40 [facility] Comment on above: Performed By: #### 1 9123-9 #### CHRIST Jung ([id number]) [facility] ([facility]) [address] [place] [address] 99902 Magnesium [Mass/Vol]on 11-12 Interpretation and review of laboratory results Normal [facility] No Panel Informationon 11-12 [facility] TRANSTHORACIC ECHO (TTE) BEE ITEDon 11-13-2023 TRANSTHORACIC ECHO (TTE) [facility], [address] [place] [address] and TRANSTHORACIC ECHOCARDIOGRAM REPORT Patient Name: SHAHID Haywood Physician: [id number] Eddie Syed MD Study Date: 11/13/2023 Ordering Provider: [id number] CARON LEÓN MRN/PID: [id number] Fellow: Nurse: Jill Painter RN Date of /Age: 7 1940 / 83 years Insurance Adjustor: Lulú Allen RDCS Gender: M Additional Staff: Height: 180.34 cm Admit Date: 11/11/2023 Weight: 90.26 kg Admission Status: Inpatient - Priority discharge BSA / BMI: 2.10 m2 / 27.75 kg/m2 Blood Pressure: 139/51 mmHg Department Location: [facility] Non Invasive Study Type: TRANSTHORACIC ECHO (TTE) LIMITED Diagnosis/ICD: Nonrheumatic aortic (valve) stenosis-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 Normal [facility] US Heart Transthoracicon Aortic Valve Area by Continuity of Peak Velocity 1.97 cm2 [facility] Work Phone: Aortic Valve Area by Continuity of VTI 1.79 cm2 [facility] Work Phone: AV mn grad 8.1 mmHg [facility] Work Phone: AV pk grad 15.5 mmHg [facility] Work Phone: AV pk [place] 1.97 m/s [facility] Work Phone: LV A4C EF 56.8 [facility] Work Phone: LV EF 53 % [facility] Work Phone: LVIDd 4.79 cm [facility] Work Phone: LVOT diam 1.99 cm [facility] Work Phone: RV free wall pk S' 8.00 cm/s [facility] Work Phone: Tricuspid annular plane systolic excursion 1.3 cm [facility] Work Phone: SYNGO [facility] Work Phone: [facility] Work Phone: XR CHEST 1 VIEWon 11-13-2023 XR CHEST 1 VIEW Interpreted By: Jarvis Isaac, STUDY: XR CHEST 1 VIEW; 11/13/2023 10:40 am INDICATION: Signs/Symptoms:SOB. COMPARISON: Exam dated 11/01/2023 ACCESSION NUMBER(S): [id number] ORDERING CLINICIAN: CARON LEÓN FINDINGS: AP radiograph [...] Jarvis Vallecillo 11/13/2023 3:08 PM Dictation workstation: [id number] Normal [facility] CBC panel Auto (Bld)on 11-11 Erythrocyte distribution width (RBC) [Ratio] 16.7 % High 11.5 - 14.5 % [facility] Hematocrit (Bld) [Volume fraction] 27.2 % Low 41.0 - 52.0 % [facility] Hemoglobin (Bld) [Mass/Vol] 9.0 g/dL Low 13.5 - 17.5 g/dL [facility] Interpretation and review of laboratory results Abnormal [facility] MCH (RBC) [Entitic mass] 31.7 pg 26.0 - 34.0 pg [facility] MCHC (RBC) [Mass/Vol] 33.1 g/dL 32.0 - 36.0 g/dL [facility] MCV (RBC) [Entitic vol] 96 fL 80 - 100 fL [facility] Nucleated RBC/100 WBC (Bld) [Ratio] 0.0 % [facility] Platelets (Bld) [#/Vol] 238 10*3/uL [facility] RBC (Bld) [#/Vol] 2.84 10*6/uL [facility] WBC (Bld) [#/Vol] 6.4 10*3/uL [facility] ECG 12-LEADon 11-12-2023 ECG 12-LEAD Ventricular Rate 68 Atrial Rate 72 P-R Interval 328 QRS Duration 182 Q-T Interval 480 QTC Calculation(Bazett) 510 R [place] -65 T [place] 109 QRS Count 11 Q Onset 203 [...] Silva ([id number]) on 11/15/2023 7:48:54 AM Normal [facility] ECG 12-LEAD Ventricular Rate 71 Atrial Rate 277 QRS Duration 164 Q-T Interval 442 QTC Calculation(Bazett) 480 R [place] -61 T [place] 116 QRS Count 11 Q Onset 209 [...] rhythm, needs review Confirmed by Chun Silva ([id number]) on 11/15/2023 7:47:10 AM Normal [facility] Glucose Test strip manual (B ld) [Mass/Vol]on 11-12-2023 Glucose [Mass/Vol] 186 mg/dL High 74 - 99 mg/dL [facility] Interpretation and review of laboratory results Abnormal [facility] Glucose [Mass/Vol] 122 mg/dL High 74 - 99 mg/dL [facility] Interpretation and review of laboratory results Abnormal [facility] Glucose [Mass/Vol] 111 mg/dL High 74 - 99 mg/dL [facility] Interpretation and review of laboratory results Abnormal [facility] Magnesiumon 11-12-2023 Magnesium [Mass/Vol] 1.96 mg/dL 1.60 - 2.40 mg/dL [facility] Magnesium [Mass/Vol]on 11-11 Interpretation and review of laboratory results Normal [facility] No Panel Informationon 11-11 [facility] Renal function 2000 panelon 11-12-2023 Albumin BCP dye [Mass/Vol] 2.9 g/dL Low 3.4 - 5.0 g/dL [facility] Anion gap [Moles/Vol] 14 mmol/L 10 - 2 0 mmol/L [facility] Calcium [Mass/Vol] 7.8 mg/dL Low 8.6 - 10. 6 mg/dL [facility] Chloride [Moles/Vol] 102 mmol/L 98 - 10 7 mmol/L [facility] CO2 [Moles/Vol] 25 mmol/L 21 - 32 mmol/L [facility] Creatinine [Mass/Vol] 1.37 mg/dL High 0.50 - 1.30 mg/dL [facility] GFR/1.73 sq M.predicted among non-blacks MDRD (S/P/Bld) [Vol rate/Area] 52 mL/min/{1.73_m2} Low - PINF [facility] Glucose [Mass/Vol] 116 mg/dL High 74 - 99 mg/dL [facility] Interpretation and review of laboratory results Abnormal [facility] Phosphate [Mass/Vol] 3.5 mg/dL 2.5 - 4 .9 mg/dL [facility] Potassium [Moles/Vol] 3.4 mmol/L Low 3.5 - 5.3 mmol/L [facility] Sodium [Moles/Vol] 138 mmol/L 136 - 145 mmol/L [facility] Urea nitrogen [Mass/Vol] 29 mg/dL High 6 - 23 mg/dL [facility] Heart TransthoracicOrdere d By: Eddie Syed on 11-12-2023 Aortic Valve Area by Continuity of Peak Velocity 0.92 cm2 [facility] Work Phone: [phone] Aortic Valve Area by Continuity of VTI 0.96 cm2 [facility] Work Phone: [phone] AV mn grad 19.0 mmHg [facility] Work Phone: [phone] AV pk grad 34.8 mmHg [facility] Work Phone: [phone] AV pk [place] 2.95 m/s [facility] Work Phone: [phone] LV A4C EF 48.2 [facility] Work Phone: [phone] LV EF 53 % [facility] Work Phone: [phone] LVIDd 4.60 cm [facility] Work Phone: [phone] LVOT diam 2.40 cm [facility] Work Phone: [phone] [facility] Work Phone: [phone] US Heart Transthoracicon SYNGO [facility] Work Phone: Von Willebrand multimericon 11-12-2023 vWf multimers IB Nom (PPP) Comment [facility] vWf multimers IB Nom (PPP)on 11-12-2023 [facility] Blood type and Indirect anti body screen panel (Bld)on 11-11-2023 ABO group [facility] (Bld) [facility] screen Ql Negative [facility] D Ag Ql (Bld) Negative [facility] CBC panel Auto (Bld)on 11-10 Erythrocyte distribution width (RBC) [Ratio] 16.4 % High 11.5 - 14.5 % [facility] Hematocrit (Bld) [Volume fraction] 30.9 % Low 41.0 - 52.0 % [facility] Hemoglobin (Bld) [Mass/Vol] 10.1 g/dL Low 13.5 - 17.5 g/dL [facility] Interpretation and review of laboratory results Abnormal [facility] MCH (RBC) [Entitic mass] 31.1 pg 26.0 - 34.0 pg [facility] MCHC (RBC) [Mass/Vol] 32.7 g/dL 32.0 - 36.0 g/dL [facility] MCV (RBC) [Entitic vol] 95 fL 80 - 100 fL [facility] Nucleated RBC/100 WBC (Bld) [Ratio] 0.0 % [facility] Platelets (Bld) [#/Vol] 270 10*3/uL [facility] RBC (Bld) [#/Vol] 3.25 10*6/uL [facility] WBC (Bld) [#/Vol] 7.0 10*3/uL [facility] Glucose Test strip manual (B ld) [Mass/Vol]on 11-11-2023 Glucose [Mass/Vol] 106 mg/dL High 74 - 99 mg/dL [facility] Interpretation and review of laboratory results Abnormal [facility] Glucose [Mass/Vol] 238 mg/dL High 74 - 99 mg/dL [facility] Interpretation and review of laboratory results Abnormal [facility] Glucose [Mass/Vol] 106 mg/dL High 74 - 99 mg/dL [facility] Interpretation and review of laboratory results Abnormal [facility] Heparin Assay, UFHon 024 Heparin unfractionated Chromogenic method Qn (PPP) 0.6 See Comment Below for Therapeutic Ranges IU/mL [facility] Heparin unfractionated Chrom ogenic method Qn (PPP)on 11-11-2023 Interpretation and review of laboratory results Normal [facility] Magnesiumon 11-11-2023 Magnesium [Mass/Vol] 2.21 mg/dL 1.60 - 2.40 mg/dL [facility] Magnesium [Mass/Vol]on 11-10 Interpretation and review of laboratory results Normal [facility] No Panel Informationon 11-10 [facility] Renal function 2000 panelon 11-11-2023 Albumin BCP dye [Mass/Vol] 3.7 g/dL 3.4 - 5.0 g/dL [facility] Anion gap [Moles/Vol] 16 mmol/L 10 - 2 0 mmol/L [facility] Calcium [Mass/Vol] 9.2 mg/dL 8.6 - 10. 6 mg/dL [facility] Chloride [Moles/Vol] 94 mmol/L Low 98 - 10 7 mmol/L [facility] CO2 [Moles/Vol] 31 mmol/L 21 - 32 mmol/L [facility] Creatinine [Mass/Vol] 1.66 mg/dL High 0.50 - 1.30 mg/dL [facility] GFR/1.73 sq M.predicted among non-blacks MDRD (S/P/Bld) [Vol rate/Area] 41 mL/min/{1.73_m2} Low - PINF [facility] Glucose [Mass/Vol] 166 mg/dL High 74 - 99 mg/dL [facility] Interpretation and review of laboratory results Abnormal [facility] Phosphate [Mass/Vol] 3.7 mg/dL 2.5 - 4 .9 mg/dL [facility] Potassium [Moles/Vol] 3.7 mmol/L 3.5 - 5.3 mmol/L [facility] Sodium [Moles/Vol] 137 mmol/L 136 - 145 mmol/L [facility] Urea nitrogen [Mass/Vol] 34 mg/dL High 6 - 23 mg/dL [facility] VWF GP1bM Activityon 024 Interpretation and review of laboratory results Abnormal [facility] VWF GP1bM Activity 218 High [facility] CBC panel Auto (Bld)on 11-09 Erythrocyte distribution width (RBC) [Ratio] 16.4 % High 11.5 - 14.5 % [facility] Hematocrit (Bld) [Volume fraction] 30.9 % Low 41.0 - 52.0 % [facility] Hemoglobin (Bld) [Mass/Vol] 10.2 g/dL Low 13.5 - 17.5 g/dL [facility] Interpretation and review of laboratory results Abnormal [facility] MCH (RBC) [Entitic mass] 31.6 pg 26.0 - 34.0 pg [facility] MCHC (RBC) [Mass/Vol] 33.0 g/dL 32.0 - 36.0 g/dL [facility] MCV (RBC) [Entitic vol] 96 fL 80 - 100 fL [facility] Nucleated RBC/100 WBC (Bld) [Ratio] 0.0 % [facility] Platelets (Bld) [#/Vol] 296 10*3/uL [facility] RBC (Bld) [#/Vol] 3.23 10*6/uL [facility] WBC (Bld) [#/Vol] 6.7 10*3/uL [facility] Erythrocyte distribution width (RBC) [Ratio] 16.2 % High 11.5 - 14.5 % [facility] Hematocrit (Bld) [Volume fraction] 31.0 % Low 41.0 - 52.0 % [facility] Hemoglobin (Bld) [Mass/Vol] 10.1 g/dL Low 13.5 - 17.5 g/dL [facility] Interpretation and review of laboratory results Abnormal [facility] MCH (RBC) [Entitic mass] 31.2 pg 26.0 - 34.0 pg [facility] MCHC (RBC) [Mass/Vol] 32.6 g/dL 32.0 - 36.0 g/dL [facility] MCV (RBC) [Entitic vol] 96 fL 80 - 100 fL [facility] Nucleated RBC/100 WBC (Bld) [Ratio] 0.0 % [facility] Platelets (Bld) [#/Vol] 252 10*3/uL [facility] RBC (Bld) [#/Vol] 3.24 10*6/uL [facility] WBC (Bld) [#/Vol] 7.1 10*3/uL [facility] Glucose Test strip manual (B ld) [Mass/Vol]on 11-10-2023 Glucose [Mass/Vol] 233 mg/dL High 74 - 99 mg/dL [facility] Interpretation and review of laboratory results Abnormal [facility] Glucose [Mass/Vol] 197 mg/dL High 74 - 99 mg/dL [facility] Interpretation and review of laboratory results Abnormal [facility] Glucose [Mass/Vol] 176 mg/dL High 74 - 99 mg/dL [facility] Interpretation and review of laboratory results Abnormal [facility] Glucose [Mass/Vol] 113 mg/dL High 74 - 99 mg/dL [facility] Interpretation and review of laboratory results Abnormal [facility] Heparin Assay, UFHon 024 Heparin unfractionated Chromogenic method Qn (PPP) 0.4 See Comment Below for Therapeutic Ranges IU/mL [facility] Heparin unfractionated Chrom ogenic method Qn (PPP)on 11-10-2023 Interpretation and review of laboratory results Normal [facility] Magnesiumon 11-10-2023 Magnesium [Mass/Vol] 2.15 mg/dL 1.60 - 2.40 mg/dL [facility] Magnesium [Mass/Vol] 2.06 mg/dL 1.60 - 2.40 mg/dL [facility] Magnesium [Mass/Vol]on 11-09 Interpretation and review of laboratory results Normal [facility] Interpretation and review of laboratory results Normal [facility] No Panel Informationon 11-09 [facility] Renal function 2000 panelon 11-10-2023 Albumin BCP dye [Mass/Vol] 3.7 g/dL 3.4 - 5.0 g/dL [facility] Anion gap [Moles/Vol] 17 mmol/L 10 - 2 0 mmol/L [facility] Calcium [Mass/Vol] 9.1 mg/dL 8.6 - 10. 6 mg/dL [facility] Chloride [Moles/Vol] 93 mmol/L Low 98 - 10 7 mmol/L [facility] CO2 [Moles/Vol] 30 mmol/L 21 - 32 mmol/L [facility] Creatinine [Mass/Vol] 1.85 mg/dL High 0.50 - 1.30 mg/dL [facility] GFR/1.73 sq M.predicted among non-blacks MDRD (S/P/Bld) [Vol rate/Area] 36 mL/min/{1.73_m2} Low - PINF [facility] Glucose [Mass/Vol] 169 mg/dL High 74 - 99 mg/dL [facility] Interpretation and review of laboratory results Abnormal [facility] Phosphate [Mass/Vol] 4.0 mg/dL 2.5 - 4 .9 mg/dL [facility] Potassium [Moles/Vol] 4.3 mmol/L 3.5 - 5.3 mmol/L [facility] Sodium [Moles/Vol] 136 mmol/L 136 - 145 mmol/L [facility] Urea nitrogen [Mass/Vol] 41 mg/dL High 6 - 23 mg/dL [facility] Albumin BCP dye [Mass/Vol] 3.4 g/dL 3.4 - 5.0 g/dL [facility] Anion gap [Moles/Vol] 17 mmol/L 10 - 2 0 mmol/L [facility] Calcium [Mass/Vol] 8.9 mg/dL 8.6 - 10. 6 mg/dL [facility] Chloride [Moles/Vol] 95 mmol/L Low 98 - 10 7 mmol/L [facility] CO2 [Moles/Vol] 27 mmol/L 21 - 32 mmol/L [facility] Creatinine [Mass/Vol] 1.74 mg/dL High 0.50 - 1.30 mg/dL [facility] GFR/1.73 sq M.predicted among non-blacks MDRD (S/P/Bld) [Vol rate/Area] 39 mL/min/{1.73_m2} Low - PINF [facility] Glucose [Mass/Vol] 169 mg/dL High 74 - 99 mg/dL [facility] Interpretation and review of laboratory results Abnormal [facility] Phosphate [Mass/Vol] 3.1 mg/dL 2.5 - 4 .9 mg/dL [facility] Potassium [Moles/Vol] 3.7 mmol/L 3.5 - 5.3 mmol/L [facility] Sodium [Moles/Vol] 135 mmol/L Low 136 - 145 mmol/L [facility] Urea nitrogen [Mass/Vol] 38 mg/dL High 6 - 23 mg/dL [facility] Glucose Test strip manual (B ld) [Mass/Vol]on 11-09-2023 Glucose [Mass/Vol] 159 mg/dL High 74 - 99 mg/dL [facility] Interpretation and review of laboratory results Abnormal [facility] Glucose [Mass/Vol] 247 mg/dL High 74 - 99 mg/dL [facility] Interpretation and review of laboratory results Abnormal [facility] Glucose [Mass/Vol] 212 mg/dL High 74 - 99 mg/dL [facility] Interpretation and review of laboratory results Abnormal [facility] Glucose [Mass/Vol] 139 mg/dL High 74 - 99 mg/dL [facility] Interpretation and review of laboratory results Abnormal [facility] Heparin Assay, UFHon 024 Heparin unfractionated Chromogenic method Qn (PPP) 0.4 See Comment Below for Therapeutic Ranges IU/mL [facility] Heparin unfractionated Chrom ogenic method Qn (PPP)on 11-09-2023 Interpretation and review of laboratory results Normal [facility] CBC panel Auto (Bld)on 11-07 Erythrocyte distribution width (RBC) [Ratio] 16.2 % High 11.5 - 14.5 % [facility] Hematocrit (Bld) [Volume fraction] 32.3 % Low 41.0 - 52.0 % [facility] Hemoglobin (Bld) [Mass/Vol] 10.4 g/dL Low 13.5 - 17.5 g/dL [facility] Interpretation and review of laboratory results Abnormal [facility] MCH (RBC) [Entitic mass] 31.1 pg 26.0 - 34.0 pg [facility] MCHC (RBC) [Mass/Vol] 32.2 g/dL 32.0 - 36.0 g/dL [facility] MCV (RBC) [Entitic vol] 97 fL 80 - 100 fL [facility] Nucleated RBC/100 WBC (Bld) [Ratio] 0.0 % [facility] Platelets (Bld) [#/Vol] 286 10*3/uL [facility] RBC (Bld) [#/Vol] 3.34 10*6/uL [facility] WBC (Bld) [#/Vol] 8.1 10*3/uL [facility] Cardiac device check - Surge ryOrdered By: Robert Roberson on 11-08-2023 [facility] Work Phone: Glucose Test strip manual (B ld) [Mass/Vol]on 11-08-2023 Glucose [Mass/Vol] 226 mg/dL High 74 - 99 mg/dL [facility] Interpretation and review of laboratory results Abnormal [facility] Glucose [Mass/Vol] 193 mg/dL High 74 - 99 mg/dL [facility] Interpretation and review of laboratory results Abnormal [facility] Glucose [Mass/Vol] 214 mg/dL High 74 - 99 mg/dL [facility] Interpretation and review of laboratory results Abnormal [facility] Glucose [Mass/Vol] 131 mg/dL High 74 - 99 mg/dL [facility] Interpretation and review of laboratory results Abnormal [facility] Heparin Assay, UFHon 024 Heparin unfractionated Chromogenic method Qn (PPP) 0.4 See Comment Below for Therapeutic Ranges IU/mL [facility] Heparin unfractionated Chrom ogenic method Qn (PPP)on 11-08-2023 Interpretation and review of laboratory results Normal [facility] Magnesiumon 11-08-2023 Magnesium [Mass/Vol] 2.16 mg/dL 1.60 - 2.40 mg/dL [facility] Magnesium [Mass/Vol]on 11-07 Interpretation and review of laboratory results Normal [facility] No Panel Informationon 11-07 [facility] Renal function 2000 panelon 11-08-2023 Albumin BCP dye [Mass/Vol] 3.7 g/dL 3.4 - 5.0 g/dL [facility] Anion gap [Moles/Vol] 17 mmol/L 10 - 2 0 mmol/L [facility] Calcium [Mass/Vol] 9.4 mg/dL 8.6 - 10. 6 mg/dL [facility] Chloride [Moles/Vol] 92 mmol/L Low 98 - 10 7 mmol/L [facility] CO2 [Moles/Vol] 29 mmol/L 21 - 32 mmol/L [facility] Creatinine [Mass/Vol] 1.82 mg/dL High 0.50 - 1.30 mg/dL [facility] GFR/1.73 sq M.predicted among non-blacks MDRD (S/P/Bld) [Vol rate/Area] 37 mL/min/{1.73_m2} Low - PINF [facility] Glucose [Mass/Vol] 238 mg/dL High 74 - 99 mg/dL [facility] Interpretation and review of laboratory results Abnormal [facility] Phosphate [Mass/Vol] 4.1 mg/dL 2.5 - 4 .9 mg/dL [facility] Potassium [Moles/Vol] 3.4 mmol/L Low 3.5 - 5.3 mmol/L [facility] Sodium [Moles/Vol] 135 mmol/L Low 136 - 145 mmol/L [facility] Urea nitrogen [Mass/Vol] 40 mg/dL High 6 - 23 mg/dL [facility] Albumin BCP dye [Mass/Vol] 3.6 g/dL 3.4 - 5.0 g/dL [facility] Anion gap [Moles/Vol] 18 mmol/L 10 - 2 0 mmol/L [facility] Calcium [Mass/Vol] 9.7 mg/dL 8.6 - 10. 6 mg/dL [facility] Chloride [Moles/Vol] 93 mmol/L Low 98 - 10 7 mmol/L [facility] CO2 [Moles/Vol] 32 mmol/L 21 - 32 mmol/L [facility] Creatinine [Mass/Vol] 1.75 mg/dL High 0.50 - 1.30 mg/dL [facility] GFR/1.73 sq M.predicted among non-blacks MDRD (S/P/Bld) [Vol rate/Area] 38 mL/min/{1.73_m2} Low - PINF [facility] Glucose [Mass/Vol] 121 mg/dL High 74 - 99 mg/dL [facility] Interpretation and review of laboratory results Abnormal [facility] Phosphate [Mass/Vol] 4.5 mg/dL 2.5 - 4 .9 mg/dL [facility] Potassium [Moles/Vol] 3.9 mmol/L 3.5 - 5.3 mmol/L [facility] Sodium [Moles/Vol] 139 mmol/L 136 - 145 mmol/L [facility] Urea nitrogen [Mass/Vol] 38 mg/dL High 6 - 23 mg/dL [facility] Von Willebrand Factor Antige n; [facility]; VWF - Miscellaneous TestOrdered By: Anabel Callahan on 11-08-2023 Scan Result See Scanned Result [facility] CBC panel Auto (Bld)on 11-06 Erythrocyte distribution width (RBC) [Ratio] 16.3 % High 11.5 - 14.5 % [facility] Hematocrit (Bld) [Volume fraction] 32.0 % Low 41.0 - 52.0 % [facility] Hemoglobin (Bld) [Mass/Vol] 10.2 g/dL Low 13.5 - 17.5 g/dL [facility] Interpretation and review of laboratory results Abnormal [facility] MCH (RBC) [Entitic mass] 31.1 pg 26.0 - 34.0 pg [facility] MCHC (RBC) [Mass/Vol] 31.9 g/dL Low 32.0 - 36.0 g/dL [facility] MCV (RBC) [Entitic vol] 98 fL 80 - 100 fL [facility] Nucleated RBC/100 WBC (Bld) [Ratio] 0.0 % [facility] Platelets (Bld) [#/Vol] 338 10*3/uL [facility] RBC (Bld) [#/Vol] 3.28 10*6/uL [facility] WBC (Bld) [#/Vol] 9.0 10*3/uL [facility] Glucose Test strip manual (B ld) [Mass/Vol]on 11-07-2023 Glucose [Mass/Vol] 258 mg/dL High 74 - 99 mg/dL [facility] Interpretation and review of laboratory results Abnormal [facility] Glucose [Mass/Vol] 145 mg/dL High 74 - 99 mg/dL [facility] Interpretation and review of laboratory results Abnormal [facility] Glucose [Mass/Vol] 215 mg/dL High 74 - 99 mg/dL [facility] Interpretation and review of laboratory results Abnormal [facility] Glucose [Mass/Vol] 137 mg/dL High 74 - 99 mg/dL [facility] Interpretation and review of laboratory results Abnormal [facility] Heparin Assay, UFHon 024 Heparin unfractionated Chromogenic method Qn (PPP) 0.4 See Comment Below for Therapeutic Ranges IU/mL [facility] Heparin unfractionated Chrom ogenic method Qn (PPP)on 11-07-2023 Interpretation and review of laboratory results Normal [facility] Magnesiumon 11-07-2023 Magnesium [Mass/Vol] 2.09 mg/dL 1.60 - 2.40 mg/dL [facility] Magnesium [Mass/Vol]on 11-06 Interpretation and review of laboratory results Normal [facility] No Panel Informationon 11-06 [facility] Renal function 2000 panelon 11-07-2023 Albumin BCP dye [Mass/Vol] 3.7 g/dL 3.4 - 5.0 g/dL [facility] Anion gap [Moles/Vol] 17 mmol/L 10 - 2 0 mmol/L [facility] Calcium [Mass/Vol] 9.8 mg/dL 8.6 - 10. 6 mg/dL [facility] Chloride [Moles/Vol] 92 mmol/L Low 98 - 10 7 mmol/L [facility] CO2 [Moles/Vol] 33 mmol/L High 21 - 32 mmol/L [facility] Creatinine [Mass/Vol] 1.74 mg/dL High 0.50 - 1.30 mg/dL [facility] GFR/1.73 sq M.predicted among non-blacks MDRD (S/P/Bld) [Vol rate/Area] 39 mL/min/{1.73_m2} Low - PINF [facility] Glucose [Mass/Vol] 164 mg/dL High 74 - 99 mg/dL [facility] Interpretation and review of laboratory results Abnormal [facility] Phosphate [Mass/Vol] 4.1 mg/dL 2.5 - 4 .9 mg/dL [facility] Potassium [Moles/Vol] 4.2 mmol/L 3.5 - 5.3 mmol/L [facility] Sodium [Moles/Vol] 138 mmol/L 136 - 145 mmol/L [facility] Urea nitrogen [Mass/Vol] 36 mg/dL High 6 - 23 mg/dL [facility] CBC panel Auto (Bld)on 11-05 Erythrocyte distribution width (RBC) [Ratio] 16.1 % High 11.5 - 14.5 % [facility] Hematocrit (Bld) [Volume fraction] 31.2 % Low 41.0 - 52.0 % [facility] Hemoglobin (Bld) [Mass/Vol] 9.9 g/dL Low 13.5 - 17.5 g/dL [facility] Interpretation and review of laboratory results Abnormal [facility] MCH (RBC) [Entitic mass] 31.3 pg 26.0 - 34.0 pg [facility] MCHC (RBC) [Mass/Vol] 31.7 g/dL Low 32.0 - 36.0 g/dL [facility] MCV (RBC) [Entitic vol] 99 fL 80 - 100 fL [facility] Nucleated RBC/100 WBC (Bld) [Ratio] 0.0 % [facility] Platelets (Bld) [#/Vol] 318 10*3/uL [facility] RBC (Bld) [#/Vol] 3.16 10*6/uL [facility] WBC (Bld) [#/Vol] 8.0 10*3/uL [facility] Erythrocyte distribution width (RBC) [Ratio] 16.1 % High 11.5 - 14.5 % [facility] Hematocrit (Bld) [Volume fraction] 29.4 % Low 41.0 - 52.0 % [facility] Hemoglobin (Bld) [Mass/Vol] 9.6 g/dL Low 13.5 - 17.5 g/dL [facility] Interpretation and review of laboratory results Abnormal [facility] MCH (RBC) [Entitic mass] 31.8 pg 26.0 - 34.0 pg [facility] MCHC (RBC) [Mass/Vol] 32.7 g/dL 32.0 - 36.0 g/dL [facility] MCV (RBC) [Entitic vol] 97 fL 80 - 100 fL [facility] Nucleated RBC/100 WBC (Bld) [Ratio] 0.0 % [facility] Platelets (Bld) [#/Vol] 330 10*3/uL [facility] RBC (Bld) [#/Vol] 3.02 10*6/uL [facility] WBC (Bld) [#/Vol] 8.5 10*3/uL [facility] Glucose Test strip manual (B ld) [Mass/Vol]on 11-06-2023 Glucose [Mass/Vol] 215 mg/dL High 74 - 99 mg/dL [facility] Interpretation and review of laboratory results Abnormal [facility] Glucose [Mass/Vol] 157 mg/dL High 74 - 99 mg/dL [facility] Interpretation and review of laboratory results Abnormal [facility] Glucose [Mass/Vol] 159 mg/dL High 74 - 99 mg/dL [facility] Interpretation and review of laboratory results Abnormal [facility] Glucose [Mass/Vol] 135 mg/dL High 74 - 99 mg/dL [facility] Interpretation and review of laboratory results Abnormal [facility] Heparin Assay, UFHon 024 Heparin unfractionated Chromogenic method Qn (PPP) 0.5 See Comment Below for Therapeutic Ranges IU/mL [facility] Heparin unfractionated Chrom ogenic method Qn (PPP)on 11-06-2023 Interpretation and review of laboratory results Normal [facility] Magnesiumon 11-06-2023 Magnesium [Mass/Vol] 2.15 mg/dL 1.60 - 2.40 mg/dL [facility] Magnesium [Mass/Vol]on 11-05 Interpretation and review of laboratory results Normal [facility] No Panel Informationon 11-05 [facility] Renal function 2000 panelon 11-06-2023 Albumin BCP dye [Mass/Vol] 3.6 g/dL 3.4 - 5.0 g/dL [facility] Anion gap [Moles/Vol] 17 mmol/L 10 - 2 0 mmol/L [facility] Calcium [Mass/Vol] 9.5 mg/dL 8.6 - 10. 6 mg/dL [facility] Chloride [Moles/Vol] 96 mmol/L Low 98 - 10 7 mmol/L [facility] CO2 [Moles/Vol] 30 mmol/L 21 - 32 mmol/L [facility] Creatinine [Mass/Vol] 1.63 mg/dL High 0.50 - 1.30 mg/dL [facility] GFR/1.73 sq M.predicted among non-blacks MDRD (S/P/Bld) [Vol rate/Area] 42 mL/min/{1.73_m2} Low - PINF [facility] Glucose [Mass/Vol] 151 mg/dL High 74 - 99 mg/dL [facility] Interpretation and review of laboratory results Abnormal [facility] Phosphate [Mass/Vol] 3.4 mg/dL 2.5 - 4 .9 mg/dL [facility] Potassium [Moles/Vol] 4.0 mmol/L 3.5 - 5.3 mmol/L [facility] Sodium [Moles/Vol] 139 mmol/L 136 - 145 mmol/L [facility] Urea nitrogen [Mass/Vol] 33 mg/dL High 6 - 23 mg/dL [facility] CBC panel Auto (Bld)on 11-04 Erythrocyte distribution width (RBC) [Ratio] 15.9 % High 11.5 - 14.5 % [facility] Hematocrit (Bld) [Volume fraction] 29.0 % Low 41.0 - 52.0 % [facility] Hemoglobin (Bld) [Mass/Vol] 9.1 g/dL Low 13.5 - 17.5 g/dL [facility] Interpretation and review of laboratory results Abnormal [facility] MCH (RBC) [Entitic mass] 30.7 pg 26.0 - 34.0 pg [facility] MCHC (RBC) [Mass/Vol] 31.4 g/dL Low 32.0 - 36.0 g/dL [facility] MCV (RBC) [Entitic vol] 98 fL 80 - 100 fL [facility] Nucleated RBC/100 WBC (Bld) [Ratio] 0.0 % [facility] Platelets (Bld) [#/Vol] 309 10*3/uL [facility] RBC (Bld) [#/Vol] 2.96 10*6/uL [facility] WBC (Bld) [#/Vol] 8.1 10*3/uL [facility] ECG 12 LeadOrdered By: Hal Dickey on 11-05-2023 Atrial Rate 73 BPM [facility] Work Phone: [phone] Q Onset 214 ms [facility] Work Phone: [phone] QRS Count 11 beats [facility] Work Phone: [phone] QRS Duration 158 ms [facility] Work Phone: [phone] QT Interval 448 ms [facility] Work Phone: [phone] QTC Calculation(Bazett) 483 ms [facility] Work Phone: [phone] QTC Fredericia 471 [facility] Work Phone: [phone] R [place] -60 degrees [facility] Work Phone: T [place] 109 degrees [facility] Work Phone: [phone] T Offset 438 ms [facility] Work Phone: Ventricular Rate 70 BPM [facility] Work Phone: [facility] Work Phone: ECG 12 Leadon 11-05-2023 [facility] Work Phone: Glucose Test strip manual (B ld) [Mass/Vol]on 11-05-2023 Glucose [Mass/Vol] 188 mg/dL High 74 - 99 mg/dL [facility] Interpretation and review of laboratory results Abnormal [facility] Glucose [Mass/Vol] 150 mg/dL High 74 - 99 mg/dL [facility] Interpretation and review of laboratory results Abnormal [facility] Glucose [Mass/Vol] 252 mg/dL High 74 - 99 mg/dL [facility] Interpretation and review of laboratory results Abnormal [facility] Glucose [Mass/Vol] 111 mg/dL High 74 - 99 mg/dL [facility] Interpretation and review of laboratory results Abnormal [facility] Heparin Assay, UFHon 024 Heparin unfractionated Chromogenic method Qn (PPP) 0.6 See Comment Below for Therapeutic Ranges IU/mL [facility] Heparin unfractionated Chromogenic method Qn (PPP) 0.5 See Comment Below for Therapeutic Ranges IU/mL [facility] Heparin unfractionated Chromogenic method Qn (PPP) 0.2 See Comment Below for Therapeutic Ranges IU/mL [facility] Heparin unfractionated Chrom ogenic method Qn (PPP)on 11-05-2023 Interpretation and review of laboratory results Normal [facility] Interpretation and review of laboratory results Normal [facility] Interpretation and review of laboratory results Normal [facility] Magnesiumon 11-05-2023 Magnesium [Mass/Vol] 1.84 mg/dL 1.60 - 2.40 mg/dL [facility] Magnesium [Mass/Vol]on 11-04 Interpretation and review of laboratory results Normal [facility] No Panel Informationon 11-04 [facility] Renal function 2000 panelon 11-05-2023 Albumin BCP dye [Mass/Vol] 3.2 g/dL Low 3.4 - 5.0 g/dL [facility] Anion gap [Moles/Vol] 15 mmol/L 10 - 2 0 mmol/L [facility] Calcium [Mass/Vol] 8.5 mg/dL Low 8.6 - 10. 6 mg/dL [facility] Chloride [Moles/Vol] 93 mmol/L Low 98 - 10 7 mmol/L [facility] CO2 [Moles/Vol] 33 mmol/L High 21 - 32 mmol/L [facility] Creatinine [Mass/Vol] 1.32 mg/dL High 0.50 - 1.30 mg/dL [facility] GFR/1.73 sq M.predicted among non-blacks MDRD (S/P/Bld) [Vol rate/Area] 54 mL/min/{1.73_m2} Low - PINF [facility] Glucose [Mass/Vol] 277 mg/dL High 74 - 99 mg/dL [facility] Interpretation and review of laboratory results Abnormal [facility] Phosphate [Mass/Vol] 3.6 mg/dL 2.5 - 4 .9 mg/dL [facility] Potassium [Moles/Vol] 3.6 mmol/L 3.5 - 5.3 mmol/L [facility] Sodium [Moles/Vol] 137 mmol/L 136 - 145 mmol/L [facility] Urea nitrogen [Mass/Vol] 31 mg/dL High 6 - 23 mg/dL [facility] CBC panel Auto (Bld)on 11-03 Erythrocyte distribution width (RBC) [Ratio] 15.9 % High 11.5 - 14.5 % [facility] Hematocrit (Bld) [Volume fraction] 29.1 % Low 41.0 - 52.0 % [facility] Hemoglobin (Bld) [Mass/Vol] 9.2 g/dL Low 13.5 - 17.5 g/dL [facility] Interpretation and review of laboratory results Abnormal [facility] MCH (RBC) [Entitic mass] 31.3 pg 26.0 - 34.0 pg [facility] MCHC (RBC) [Mass/Vol] 31.6 g/dL Low 32.0 - 36.0 g/dL [facility] MCV (RBC) [Entitic vol] 99 fL 80 - 100 fL [facility] Nucleated RBC/100 WBC (Bld) [Ratio] 0.0 % [facility] Platelets (Bld) [#/Vol] 348 10*3/uL [facility] RBC (Bld) [#/Vol] 2.94 10*6/uL [facility] WBC (Bld) [#/Vol] 8.0 10*3/uL [facility] Glucose Test strip manual (B ld) [Mass/Vol]on 11-04-2023 Glucose [Mass/Vol] 171 mg/dL High 74 - 99 mg/dL [facility] Interpretation and review of laboratory results Abnormal [facility] Glucose [Mass/Vol] 186 mg/dL High 74 - 99 mg/dL [facility] Interpretation and review of laboratory results Abnormal [facility] Glucose [Mass/Vol] 180 mg/dL High 74 - 99 mg/dL [facility] Interpretation and review of laboratory results Abnormal [facility] Glucose [Mass/Vol] 112 mg/dL High 74 - 99 mg/dL [facility] Interpretation and review of laboratory results Abnormal [facility] Haptoglobinon 11-04-2023 Haptoglobin [Mass/Vol] 141 mg/dL 37 - 246 mg/dL [facility] Haptoglobin [Mass/Vol]on Interpretation and review of laboratory results Normal [facility] Heparin Assay, UFHon 024 Heparin unfractionated Chromogenic method Qn (PPP) 0.1 See Comment Below for Therapeutic Ranges IU/mL [facility] Heparin unfractionated Chromogenic method Qn (PPP) 0.3 See Comment Below for Therapeutic Ranges IU/mL [facility] Heparin unfractionated Chrom ogenic method Qn (PPP)on 11-04-2023 Interpretation and review of laboratory results Normal [facility] Interpretation and review of laboratory results Normal [facility] Magnesiumon 11-04-2023 Magnesium [Mass/Vol] 1.57 mg/dL Low 1.60 - 2.40 mg/dL [facility] No Panel Informationon 11-03 Interpretation and review of laboratory results Abnormal [facility] Renal function 2000 panelon 11-04-2023 Albumin BCP dye [Mass/Vol] 3.4 g/dL 3.4 - 5.0 g/dL [facility] Anion gap [Moles/Vol] 15 mmol/L 10 - 2 0 mmol/L [facility] Calcium [Mass/Vol] 8.8 mg/dL 8.6 - 10. 6 mg/dL [facility] Chloride [Moles/Vol] 98 mmol/L 98 - 10 7 mmol/L [facility] CO2 [Moles/Vol] 31 mmol/L 21 - 32 mmol/L [facility] Creatinine [Mass/Vol] 1.38 mg/dL High 0.50 - 1.30 mg/dL [facility] GFR/1.73 sq M.predicted among non-blacks MDRD (S/P/Bld) [Vol rate/Area] 51 mL/min/{1.73_m2} Low - PINF [facility] Glucose [Mass/Vol] 176 mg/dL High 74 - 99 mg/dL [facility] Phosphate [Mass/Vol] 3.5 mg/dL 2.5 - 4 .9 mg/dL [facility] Potassium [Moles/Vol] 3.6 mmol/L 3.5 - 5.3 mmol/L [facility] Sodium [Moles/Vol] 140 mmol/L 136 - 145 mmol/L [facility] Urea nitrogen [Mass/Vol] 32 mg/dL High 6 - 23 mg/dL [facility] CBC panel Auto (Bld)on 11-02 Erythrocyte distribution width (RBC) [Ratio] 15.9 % High 11.5 - 14.5 % [facility] Hematocrit (Bld) [Volume fraction] 29.2 % Low 41.0 - 52.0 % [facility] Hemoglobin (Bld) [Mass/Vol] 9.3 g/dL Low 13.5 - 17.5 g/dL [facility] Interpretation and review of laboratory results Abnormal [facility] MCH (RBC) [Entitic mass] 31.4 pg 26.0 - 34.0 pg [facility] MCHC (RBC) [Mass/Vol] 31.8 g/dL Low 32.0 - 36.0 g/dL [facility] MCV (RBC) [Entitic vol] 99 fL 80 - 100 fL [facility] Nucleated RBC/100 WBC (Bld) [Ratio] 0.0 % [facility] Platelets (Bld) [#/Vol] 339 10*3/uL [facility] RBC (Bld) [#/Vol] 2.96 10*6/uL [facility] WBC (Bld) [#/Vol] 6.0 10*3/uL [facility] Cardiac device check - Surge nichol 11-03-2023 Radiology Study observation (narrative) [facility] Work Phone: EGD Study observation Narrat iveon 11-03-2023 [facility] Work Phone: Radiology Study observation (narrative) [facility] Work Phone: EGD Study observation Narrat iveOrdered By: Fela Dsouza on 11-03-2023 [facility] Work Phone: Glucose Test strip manual (B ld) [Mass/Vol]on 11-03-2023 Glucose [Mass/Vol] 187 mg/dL High 74 - 99 mg/dL [facility] Interpretation and review of laboratory results Abnormal [facility] Glucose [Mass/Vol] 179 mg/dL High 74 - 99 mg/dL [facility] Interpretation and review of laboratory results Abnormal [facility] Glucose [Mass/Vol] 127 mg/dL High 74 - 99 mg/dL [facility] Interpretation and review of laboratory results Abnormal [facility] Glucose [Mass/Vol] 130 mg/dL High 74 - 99 mg/dL [facility] Interpretation and review of laboratory results Abnormal [facility] LDH Lactate to pyruvate reac tion [Catalytic activity/Vol]on 11-03-2023 Interpretation and review of laboratory results Normal [facility] Lactate dehydrogenaseon LDH Lactate to pyruvate reaction [Catalytic activity/Vol] 215 U/L 84 - 246 U/L [facility] Magnesiumon 11-03-2023 Magnesium [Mass/Vol] 1.71 mg/dL 1.60 - 2.40 mg/dL [facility] Magnesium [Mass/Vol]on 11-02 Interpretation and review of laboratory results Normal [facility] No Panel Informationon 11-02 [facility] Renal function 2000 panelon 11-03-2023 Albumin BCP dye [Mass/Vol] 3.2 g/dL Low 3.4 - 5.0 g/dL [facility] Anion gap [Moles/Vol] 12 mmol/L 10 - 2 0 mmol/L [facility] Calcium [Mass/Vol] 8.6 mg/dL 8.6 - 10. 6 mg/dL [facility] Chloride [Moles/Vol] 100 mmol/L 98 - 10 7 mmol/L [facility] CO2 [Moles/Vol] 33 mmol/L High 21 - 32 mmol/L [facility] Creatinine [Mass/Vol] 1.30 mg/dL 0.50 - 1.30 mg/dL [facility] GFR/1.73 sq M.predicted among non-blacks MDRD (S/P/Bld) [Vol rate/Area] 55 mL/min/{1.73_m2} Low - PINF [facility] Glucose [Mass/Vol] 189 mg/dL High 74 - 99 mg/dL [facility] Interpretation and review of laboratory results Abnormal [facility] Phosphate [Mass/Vol] 3.3 mg/dL 2.5 - 4 .9 mg/dL [facility] Potassium [Moles/Vol] 4.0 mmol/L 3.5 - 5.3 mmol/L [facility] Sodium [Moles/Vol] 141 mmol/L 136 - 145 mmol/L [facility] Urea nitrogen [Mass/Vol] 32 mg/dL High 6 - 23 mg/dL [facility] CBC panel Auto (Bld)on 11-01 Erythrocyte distribution width (RBC) [Ratio] 15.9 % High 11.5 - 14.5 % [facility] Hematocrit (Bld) [Volume fraction] 29.9 % Low 41.0 - 52.0 % [facility] Hemoglobin (Bld) [Mass/Vol] 9.7 g/dL Low 13.5 - 17.5 g/dL [facility] Interpretation and review of laboratory results Abnormal [facility] MCH (RBC) [Entitic mass] 31.3 pg 26.0 - 34.0 pg [facility] MCHC (RBC) [Mass/Vol] 32.4 g/dL 32.0 - 36.0 g/dL [facility] MCV (RBC) [Entitic vol] 97 fL 80 - 100 fL [facility] Nucleated RBC/100 WBC (Bld) [Ratio] 0.0 % [facility] Platelets (Bld) [#/Vol] 417 10*3/uL [facility] RBC (Bld) [#/Vol] 3.10 10*6/uL Low [facility] WBC (Bld) [#/Vol] 6.1 10*3/uL [facility] Cobalamin (Vitamin B12) [Mas s/Vol]on 11-02-2023 Interpretation and review of laboratory results Normal [facility] Folateon 11-02-2023 Folate [Mass/Vol] ng/mL 5.0 - PINF ng/mL [facility] Folate [Mass/Vol]on 11-02-19 Interpretation and review of laboratory results Normal [facility] Glucose Test strip manual (B ld) [Mass/Vol]on 11-02-2023 Glucose [Mass/Vol] 147 mg/dL High 74 - 99 mg/dL [facility] Interpretation and review of laboratory results Abnormal [facility] Glucose [Mass/Vol] 217 mg/dL High 74 - 99 mg/dL [facility] Interpretation and review of laboratory results Abnormal [facility] Glucose [Mass/Vol] 195 mg/dL High 74 - 99 mg/dL [facility] Interpretation and review of laboratory results Abnormal [facility] Glucose [Mass/Vol] 135 mg/dL High 74 - 99 mg/dL [facility] Interpretation and review of laboratory results Abnormal [facility] Magnesiumon 11-02-2023 Magnesium [Mass/Vol] 2.06 mg/dL 1.60 - 2.40 mg/dL [facility] Magnesium [Mass/Vol]on 11-01 Interpretation and review of laboratory results Normal [facility] No Panel Informationon 11-01 [facility] Renal function 2000 panelon 11-02-2023 Albumin BCP dye [Mass/Vol] 3.4 g/dL 3.4 - 5.0 g/dL [facility] Anion gap [Moles/Vol] 13 mmol/L 10 - 2 0 mmol/L [facility] Calcium [Mass/Vol] 8.8 mg/dL 8.6 - 10. 6 mg/dL [facility] Chloride [Moles/Vol] 97 mmol/L Low 98 - 10 7 mmol/L [facility] CO2 [Moles/Vol] 32 mmol/L 21 - 32 mmol/L [facility] Creatinine [Mass/Vol] 1.25 mg/dL 0.50 - 1.30 mg/dL [facility] GFR/1.73 sq M.predicted among non-blacks MDRD (S/P/Bld) [Vol rate/Area] 57 mL/min/{1.73_m2} Low - PINF [facility] Glucose [Mass/Vol] 202 mg/dL High 74 - 99 mg/dL [facility] Interpretation and review of laboratory results Abnormal [facility] Phosphate [Mass/Vol] 3.1 mg/dL 2.5 - 4 .9 mg/dL [facility] Potassium [Moles/Vol] 3.1 mmol/L Low 3.5 - 5.3 mmol/L [facility] Sodium [Moles/Vol] 139 mmol/L 136 - 145 mmol/L [facility] Urea nitrogen [Mass/Vol] 37 mg/dL High 6 - 23 mg/dL [facility] Vitamin B12on 11-02-2023 Cobalamin (Vitamin B12) [Mass/Vol] 669 pg/mL 211 - 911 pg/mL [facility] XR Chest 2 Viewson 4 UH MMODAL UH MMODAL [facility] Work Phone: XR Chest 2 ViewsOrdered By: Jessica Danielle on 11-02-2023 [facility] Work Phone: Blood type and Indirect anti body screen panel (Bld)on 11-01-2023 ABO group Nom (Bld) AB [facility] Blood group antibody screen Ql Negative [facility] D Ag Ql (Bld) Negative [facility] CBC panel Auto (Bld)on 10-31 Erythrocyte distribution width (RBC) [Ratio] 15.8 % High 11.5 - 14.5 % [facility] Hematocrit (Bld) [Volume fraction] 27.7 % Low 41.0 - 52.0 % [facility] Hemoglobin (Bld) [Mass/Vol] 9.1 g/dL Low 13.5 - 17.5 g/dL [facility] Interpretation and review of laboratory results Abnormal [facility] MCH (RBC) [Entitic mass] 31.1 pg 26.0 - 34.0 pg [facility] MCHC (RBC) [Mass/Vol] 32.9 g/dL 32.0 - 36.0 g/dL [facility] MCV (RBC) [Entitic vol] 95 fL 80 - 100 fL [facility] Nucleated RBC/100 WBC (Bld) [Ratio] 0.0 % [facility] Platelets (Bld) [#/Vol] 383 10*3/uL [facility] RBC (Bld) [#/Vol] 2.93 10*6/uL [facility] WBC (Bld) [#/Vol] 5.4 10*3/uL [facility] ECG 12-LEADon 11-01-2023 ECG 12-LEAD Ventricular Rate 70 Atrial Rate 73 QRS Duration 158 Q-T Interval 448 QTC Calculation(Bazett) 483 R [place] -60 T [place] 109 QRS Count 11 Q Onset 214 T Offset 438 QTC Fredericia 471 Diagnosis Undetermined rhythm Left axis deviation Left ventricular hypertrophy with QRS widening and repolarization abnormality Lateral infarct , age undetermined Inferior infarct , age undetermined Abnormal ECG No previous ECGs available Confirmed by Hal Dickey ([id number]) on 11/05/2023 12:48:30 PM Normal [facility] Ferritinon 11-01-2023 Ferritin [Mass/Vol] 496 ng/mL High 20 - 300 ng/mL [facility] Free T4 [Mass/Vol]on 024 Interpretation and review of laboratory results Normal [facility] Glucose Test strip manual (B ld) [Mass/Vol]on 11-01-2023 Glucose [Mass/Vol] 189 mg/dL High 74 - 99 mg/dL [facility] Interpretation and review of laboratory results Abnormal [facility] HbA1c (Bld) [Mass fraction]o n 11-01-2023 Average glucose Estimated from glycated hemoglobin (Bld) [Mass/Vol] 151 mg/dL Not Established [facility] Interpretation and review of laboratory results Abnormal [facility] Hemoglobin A1con 11-01-2023 HbA1c (Bld) [Mass fraction] 6.9 % High see below [facility] Iron and Iron binding capaci ty panelon 11-01-2023 Iron [Mass/Vol] 63 ug/dL 35 - 150 ug/dL [facility] Iron binding capacity [Mass/Vol] 259 ug/dL 240 - 445 ug/dL [facility] Iron binding capacity.unsaturated [Mass/Vol] 196 ug/dL 110 - 370 ug/dL [facility] Iron saturation [Mass fraction] 24 % Low 25 - 45 % [facility] Lactateon 11-01-2023 Lactate [Moles/Vol] 1.9 mmol/L 0.4 - 2. 0 mmol/L [facility] Lactate [Moles/Vol]on 2023 Interpretation and review of laboratory results Normal [facility] Magnesiumon 11-01-2023 Magnesium [Mass/Vol] 1.51 mg/dL Low 1.60 - 2.40 mg/dL [facility] Natriuretic peptide B [Mass/ Vol]on 11-01-2023 Interpretation and review of laboratory results Abnormal [facility] Natriuretic peptide B (Bld) [Mass/Vol] 417 pg/mL High 0 - 99 pg/mL [facility] No Panel Informationon 10-31 Interpretation and review of laboratory results Abnormal [facility] PT and aPTT panel Coag (PPP) on 11-01-2023 aPTT Coag (PPP) [Time] 37 s [facility] INR Coag (PPP) [Relative time] 1.2 {INR} High 0.9 - 1.1 [facility] Interpretation and review of laboratory results Abnormal [facility] PT Coag (PPP) [Time] 13.[address] [facility] Renal function 2000 panelon 11-01-2023 Albumin BCP dye [Mass/Vol] 3.3 g/dL Low 3.4 - 5.0 g/dL [facility] Anion gap [Moles/Vol] 15 mmol/L 10 - 2 0 mmol/L [facility] Calcium [Mass/Vol] 8.4 mg/dL Low 8.6 - 10. 6 mg/dL [facility] Chloride [Moles/Vol] 97 mmol/L Low 98 - 10 7 mmol/L [facility] CO2 [Moles/Vol] 32 mmol/L 21 - 32 mmol/L [facility] Creatinine [Mass/Vol] 1.27 mg/dL 0.50 - 1.30 mg/dL [facility] GFR/1.73 sq M.predicted among non-blacks MDRD (S/P/Bld) [Vol rate/Area] 56 mL/min/{1.73_m2} Low - PINF [facility] Glucose [Mass/Vol] 130 mg/dL High 74 - 99 mg/dL [facility] Phosphate [Mass/Vol] 2.5 mg/dL 2.5 - 4 .9 mg/dL [facility] Potassium [Moles/Vol] 3.6 mmol/L 3.5 - 5.3 mmol/L [facility] Sodium [Moles/Vol] 140 mmol/L 136 - 145 mmol/L [facility] Urea nitrogen [Mass/Vol] 41 mg/dL High 6 - 23 mg/dL [facility] TSH with reflex to Free T4 i f abnormalon 11-01-2023 Interpretation and review of laboratory results Abnormal [facility] TSH Qn 8.94 m[IU]/L High [facility] Thyroxine, Freeon 11-01-2023 Free T4 [Mass/Vol] 1.32 ng/dL 0.78 - 1. 48 ng/dL [facility] XR Chest 2 Viewson 4 Radiology Study observation (narrative) [facility] Work Phone: Calcium [Mass/volume] in Ser um or PlasmaOrdered By: Obnydiadamadeline Aguilaromar on 10-26-2023 Calcium [Mass/Vol] 8.5 mg/dL Low 8.6-10.3 [facility] Carbon dioxide, total [Moles /volume] in Serum or PlasmaOrdered By: Obaydah Daromar on 10-26-2023 CO2 [Moles/Vol] 31.2 mmol/L High 21.0-31.0 [facility] Chloride [Moles/volume] in S paulo or PlasmaOrdered By: Obaydah Daromar on 10-26-2023 Chloride [Moles/Vol] 96 mmol/L Low 98-107 [facility] Creatinine [Mass/volume] in Serum or PlasmaOrdered By: Obaydah Daromar on 10-26-2023 Creatinine [Mass/Vol] 1.50 mg/dL High 0.70-1.30 [facility] Erythrocyte distribution wid th Auto (RBC) [Ratio]Ordered By: William Smalls on 10-26-2023 Erythrocyte distribution width (RBC) [Ratio] 16.6 % High 12.0-14.8 [facility] Glucose Glucometer (BldC) [M ass/Vol]Ordered By: William Smalls on 10-26-2023 Glucose [Mass/Vol] 282 mg/dL [facility] Comment on above: Random Glucose Refer ence Range is dependent on time and content of last meal. Glucose of more than 200 mg/dL in a nonstressed, ambulatory subject supports the diagnosis of Diabetes Mellitus. Glucose [Mass/volume] in Ser um or PlasmaOrdered By: Mary Colin on 10-26-2023 Glucose [Mass/Vol] 116 mg/dL High 70-100 [facility] Comment on above: ADA recommended refe rence rangeRandom Glucose Reference Range is dependent on time and content of last meal. Glucose of more than 200 mg/dL in a nonstressed, ambulatory subject supports the diagnosis of Diabetes Mellitus. Hematocrit Auto (Bld) [Volum e fraction]Ordered By: William Smalls on 10-26-2023 Hematocrit (Bld) [Volume fraction] 25.4 % Low 38.8-50.0 [facility] Hemoglobin [Mass/volume] in BloodOrdered By: William Smalls on 10-26-2023 Hemoglobin (Bld) [Mass/Vol] 8.9 g/dL Low 13.0-17.0 [facility] Leukocytes [#/volume] correc liborio for nucleated erythrocytes in Blood by Automated counOrdered By: William Smalls on 10-26-2023 WBC corrected for nucl RBC Auto (Bld) [#/Vol] 6.5 10*3/uL 4.1-10.5 [facility] MCH Auto (RBC) [Entitic mass ]Ordered By: William Smalls on 10-26-2023 MCH (RBC) [Entitic mass] 32.7 pg 27.5-35.2 [facility] MCHC Auto (RBC) [Mass/Vol]Or dered By: William Smalls on 10-26-2023 MCHC (RBC) [Mass/Vol] 35.1 g/dL 32.5-35.6 [facility] MCV Auto (RBC) [Entitic vol] Ordered By: William Smalls on 10-26-2023 MCV (RBC) [Entitic vol] 93.0 fL 83.5-101 [facility] Magnesium [Mass/volume] in S paulo or PlasmaOrdered By: William Smalls on 10-26-2023 Magnesium [Mass/Vol] 1.6 mg/dL Low 1.9-2.7 [facility] No Panel InformationOrdered By: Mary Colin on 10-26-2023 Estimated GFR (CKD-EPI) 46.195 mL/Min [facility] Creatinine Clearance (Chem 44.40 [facility] Platelet mean volume Auto (B ld) [Entitic vol]Ordered By: William Smalls on 10-26-2023 Platelet mean volume (Bld) [Entitic vol] 7.3 fL 6.6-10.1 [facility] Platelets Auto (Bld) [#/Vol] Ordered By: William Smalls on 10-26-2023 Platelets (Bld) [#/Vol] 264 10*3/uL 150-450 [facility] Potassium [Moles/volume] in Serum or PlasmaOrdered By: Mary Colin on 10-26-2023 Potassium [Moles/Vol] 3.4 mmol/L Low 3.5-5.1 [facility] RBC Auto (Bld) [#/Vol]Ordere d By: William Smalls on 10-26-2023 RBC (Bld) [#/Vol] 2.73 10*6/uL Low 3.90-5.60 [facility] Serum or plasma anion gap de terminationOrdered By: Mary Colin on 10-26-2023 Anion gap [Moles/Vol] 14.2 mmol/L 6.0-15.0 [facility] Sodium [Moles/volume] in Ser um or PlasmaOrdered By: Mary Aguilaromar on 10-26-2023 Sodium [Moles/Vol] 138 mmol/L 136-145 [facility] Urea nitrogen [Mass/volume] in Serum or PlasmaOrdered By: Mary Aguilaromar on 10-26-2023 Urea nitrogen [Mass/Vol] 90 mg/dL High 7-25 [facility] No Panel InformationOrdered By: William Smalls on 10-25-2023 Bedside Glucose Comment Glu2: cleaned meter [facility] Basophils Auto (Bld) [#/Vol] Ordered By: Obaydah Daromar on 10-24-2023 Basophils (Bld) [#/Vol] 0.0 10*3/uL 0.0-0.2 [facility] Basophils/100 WBC Auto (Bld) Ordered By: Obaydah Daromar on 10-24-2023 Basophils/100 WBC (Bld) 0.2 % . [facility] Eosinophils Auto (Bld) [#/Vo l]Ordered By: Obaydah Daromar on 10-24-2023 Eosinophils (Bld) [#/Vol] 0.1 10*3/uL 0.0-0.45 [facility] Eosinophils/100 WBC Auto (Bl d)Ordered By: Obaydah Daromar on 10-24-2023 Eosinophils/100 WBC (Bld) 0.4 % . [facility] Lymphocytes Auto (Bld) [#/Vo l]Ordered By: Obaydah Daromar on 10-24-2023 Lymphocytes (Bld) [#/Vol] 0.7 10*3/uL Low 1.00-4.8 [facility] Lymphocytes/100 WBC Auto (Bl d)Ordered By: Obaydah Daromar on 10-24-2023 Lymphocytes/100 WBC (Bld) 5.2 % . [facility] Monocytes Auto (Bld) [#/Vol] Ordered By: Obaydah Daromar on 10-24-2023 Monocytes (Bld) [#/Vol] 1.1 10*3/uL High 0.0-0.8 [facility] Monocytes/100 WBC Auto (Bld) Ordered By: Obaydah Daromar on 10-24-2023 Monocytes/100 WBC (Bld) 8.1 % . [facility] Neutrophils Auto (Bld) [#/Vo l]Ordered By: Obaydah Daromar on 10-24-2023 Neutrophils (Bld) [#/Vol] 11.9 10*3/uL High 1.8-7.7 [facility] Neutrophils/100 WBC Auto (Bl d)Ordered By: Obnydiadamadeline Aguilaromar on 10-24-2023 Neutrophils/100 WBC (Bld) 86.1 % . [facility] Nucleated erythrocytes [Pres ence] in Blood by Automated countOrdered By: Mary Aguilaromar on 10-24-2023 Nucleated RBC Auto Ql (Bld) 0.0 /100{WBC} 0-0.5 [facility] WBC Auto (Bld) [#/Vol]Ordere d By: Obnydiadamadeline Aguilaromar on 10-24-2023 WBC (Bld) [#/Vol] 13.8 10*3/uL High 4.1-10.5 [facility] Alanine aminotransferase [En zymatic activity/volume] in Serum or PlasmaOrdered By: Objenelle Aguilaromar on 10-23-2023 ALT [Catalytic activity/Vol] 25 U/L 7-52 [facility] Albumin [Mass/volume] in Ser um or Plasma by Bromocresol green (BCG) dye binding methoOrdered By: Objenelle Aguilaromar on 10-23-2023 Albumin BCG dye [Mass/Vol] 3.2 g/dL Low 3.5-5.7 [facility] Alkaline phosphatase [Enzyma tic activity/volume] in Serum or PlasmaOrdered By: Objenelle Aguilaromar on 10-23-2023 ALP [Catalytic activity/Vol] 77 U/L 34-104 [facility] Aspartate aminotransferase [ Enzymatic activity/volume] in Serum or PlasmaOrdered By: Obnydiadah Jeffomar on 10-23-2023 AST [Catalytic activity/Vol] 22 U/L 13-39 [facility] Bilirubin.total [Mass/volume ] in Serum or PlasmaOrdered By: Obnydiadah Jeffomar on 10-23-2023 Bilirubin [Mass/Vol] 1.0 mg/dL 0.3-1.0 [facility] Globulin Calc (S) [Mass/Vol] Ordered By: Obnydiadamadeline Aguilaromar on 10-23-2023 Globulin (S) [Mass/Vol] 3.5 g/dL [facility] Protein [Mass/volume] in Ser um or PlasmaOrdered By: Mary Colin on 10-23-2023 Protein [Mass/Vol] 6.7 g/dL 6.4-8.9 [facility] Serum or plasma albumin/glob ulin mass ratioOrdered By: Mary Colin on 10-23-2023 Albumin/Globulin [Mass ratio] 0.9 {ratio} [facility] Bilirubin Test strip Ql (U)O rdered By: Wander Davidson on 10-22-2023 Bilirubin Ql (U) Negative Negative [facility] Color Auto (U)Ordered By: Marbin Davidson on 10-22-2023 Color (U) Light-yellow Yellow [facility] Glucose [Mass/volume] in Uri ne by Test stripOrdered By: Wander Davidson on 10-22-2023 Glucose Test strip (U) [Mass/Vol] Normal mg/dL Normal [facility] Hemoglobin Test strip Ql (U) Ordered By: Wander Davidson on 10-22-2023 Hemoglobin Ql (U) Negative Negative [facility] Ketones Test strip Ql (U)Ord ered By: Wander Davidson on 10-22-2023 Ketones Ql (U) Negative Negative [facility] Leukocyte esterase [Presence ] in Urine by Test stripOrdered By: Wander Davidson on 10-22-2023 Leukocyte esterase Test strip Ql (U) Negative Negative [facility] Nitrite Test strip Ql (U)Ord ered By: Wander Davidson on 10-22-2023 Nitrite Ql (U) Negative Negative [facility] Protein Test strip (U) [Mass /Vol]Ordered By: Wander Davidson on 10-22-2023 Protein (U) [Mass/Vol] Negative Negative [facility] Specific gravity Test strip (U) [Rel density]Ordered By: Wander Davidson on 10-22-2023 Specific gravity (U) [Rel density] 1.007 1.001-1.030 [facility] Urine appearanceOrdered By: Wander Davidson on 10-22-2023 Appearance (U) Clear Clear [facility] Urobilinogen Test strip (U) [Mass/Vol]Ordered By: Wander Davidson on 10-22-2023 Urobilinogen (U) [Mass/Vol] Normal mg/dL Normal [facility] pH Test strip (U)Ordered By: Wander Davidson on 10-22-2023 pH (U) 5.0 [pH] 5.0-9.0 [facility] Anisocytosis LM Ql (Bld)Orde red By: Mary Colin on 10-20-2023 Anisocytosis Ql (Bld) Moderate [facility] Folate [Mass/volume] in Seru m or PlasmaOrdered By: Mary Colin on 10-20-2023 Folate [Mass/Vol] 2.6 ng/mL Low >5.9 [facility] Comment on above: Folate reference ran ge: >5.9 ng/mlThe WHO technical consultation on folate and vitamin [id number] has determined that folate concentrations lessthan 4 ng/ml are considered deficient. INR in Platelet poor plasma by Coagulation assayOrdered By: Mary Colin on 10-20-2023 INR Coag (PPP) [Relative time] 1.9 {INR} [facility] Comment on above: INR Therapeutic Rang [...] Colin on 10-20-2023 Microcytes Ql (Bld) Slight [facility] Ovalocyte detectionOrdered B y: Mary Colin on 10-20-2023 Ovalocytes LM Ql (Bld) Slight [facility] Platelet adequacy [Presence] in Blood by Light microscopyOrdered By: Mary Colin on 10-20-2023 Platelets LM Ql (Bld) Normal Normal [facility] Platelet morphology finding [Identifier] in BloodOrdered By: Mary Colin on 10-20-2023 Platelet morphology finding Nom (Bld) Normal Normal [facility] Poikilocytosis [Presence] in Blood by Light microscopyOrdered By: Mary Colin on 10-20-2023 Poikilocytosis LM Ql (Bld) Moderate [facility] Polychromasia [Presence] in Blood by Light microscopyOrdered By: Mary Colin on 10-20-2023 Polychromasia LM Ql (Bld) Slight [facility] Prothrombin time (PT)Ordered By: Mary Colin on 10-20-2023 PT Coag (PPP) [Time] 21.2 s High 9.0-12.9 [facility] Comment on above: A hematocrit value g reater than 55% may lead to inaccurate results in coagulation testing. Patients having hematocrit values >55% require a special collection tube for coagulation studies. Please contact the laboratory at [phone] for redraw instructions. RBC morphologyOrdered By: Campos Colin on 10-20-2023 RBC morphology finding Nom (Bld) N/A [facility] Schistocytes [Presence] in B lood by Light microscopyOrdered By: Mary Colin on 10-20-2023 Schistocytes LM Ql (Bld) Slight [facility] Teardrop cell detectionOrder ed By: Mary Colin on 10-20-2023 Dacrocytes LM Ql (Bld) Slight [facility] Vitamin B12 ser/plasOrdered By: Mary Colni on 10-20-2023 Cobalamin (Vitamin B12) [Mass/Vol] 515 pg/mL 180-914 [facility] Activated partial thrombopla stin time (aPTT) in platelet poor plasma by coagulation aOrdered By: Wander Davidson on 10-19-2023 aPTT Coag (PPP) [Time] 39.2 s High 25.1-36.5 [facility] Comment on above: A hematocrit value g reater than 55% may lead to inaccurate results in coagulation testing. Patients having hematocrit values >55% require a special collection tube for coagulation studies. Please contact the laboratory at [phone] for redraw instructions. Alanine aminotransferase [En zymatic activity/volume] in Serum or PlasmaOrdered By: Wander Davidson on 10-19-2023 ALT [Catalytic activity/Vol] 39 U/L 7-52 [facility] Albumin [Mass/volume] in Ser um or Plasma by Bromocresol green (BCG) dye binding methoOrdered By: Wander Davidson on 10-19-2023 Albumin BCG dye [Mass/Vol] 3.1 g/dL Low 3.5-5.7 [facility] Alkaline phosphatase [Enzyma tic activity/volume] in Serum or PlasmaOrdered By: Wander Davidson on 10-19-2023 ALP [Catalytic activity/Vol] 68 U/L 34-104 [facility] Anisocytosis LM Ql (Bld)Orde red By: Wander Davidson on 10-19-2023 Anisocytosis Ql (Bld) Slight [facility] Aspartate aminotransferase [ Enzymatic activity/volume] in Serum or PlasmaOrdered By: Wander Davidson on 10-19-2023 AST [Catalytic activity/Vol] 40 U/L High 13-39 [facility] Basophils Auto (Bld) [#/Vol] Ordered By: Wander Davidson on 10-19-2023 Basophils (Bld) [#/Vol] 0.0 10*3/uL 0.0-0.2 [facility] Basophils/100 WBC Auto (Bld) Ordered By: Wander Davidson on 10-19-2023 Basophils/100 WBC (Bld) 0.1 % . [facility] Bilirubin.total [Mass/volume ] in Serum or PlasmaOrdered By: Wander Davidson 10-19-2023 Bilirubin [Mass/Vol] 1.3 mg/dL High 0.3-1.0 [facility] Comment on above: Samples from patient s who have taken Naproxen have shown spurious elevation in Total Bilirubin levels. A metabolite of Naproxen, O-desmethylnaproxen, has been shown to interfere with the Femi-Batsheva method for measuring Total Bilirubin. Calcium [Mass/volume] in Ser um or PlasmaOrdered By: Wander Davidson on 10-19-2023 Calcium [Mass/Vol] 8.7 mg/dL 8.6-10.3 [facility] Carbon dioxide, total [Moles /volume] in Serum or PlasmaOrdered By: Wander Davidson on 10-19-2023 CO2 [Moles/Vol] 23.4 mmol/L 21.0-31.0 [facility] Chloride [Moles/volume] in S paulo or PlasmaOrdered By: Wander Davidson on 10-19-2023 Chloride [Moles/Vol] 90 mmol/L Low 98-107 [facility] Creatine kinase [Enzymatic a ctivity/volume] in Serum or PlasmaOrdered By: Wander Davidson on 10-19-2023 CK [Catalytic activity/Vol] 89 U/L 30-223 [facility] Creatinine [Mass/volume] in Serum or PlasmaOrdered By: Wander Davidson on 10-19-2023 Creatinine [Mass/Vol] 3.47 mg/dL High 0.70-1.30 [facility] Eosinophils Auto (Bld) [#/Vo l]Ordered By: Wander Davidson on 10-19-2023 Eosinophils (Bld) [#/Vol] 0.0 10*3/uL 0.0-0.45 [facility] Eosinophils/100 WBC Auto (Bl d)Ordered By: Wander Davidson on 10-19-2023 Eosinophils/100 WBC (Bld) 0.1 % . [facility] Erythrocyte distribution wid th Auto (RBC) [Ratio]Ordered By: Wander Davidson 10-19-2023 Erythrocyte distribution width (RBC) [Ratio] 16.4 % High 12.0-14.8 [facility] Ferritin [Mass/volume] in Se rum or PlasmaOrdered By: Wander Davidson 10-19-2023 Ferritin [Mass/Vol] 797.8 ng/mL High 23.9-336.2 [facility] Globulin Calc (S) [Mass/Vol] Ordered By: Wander Davidson 10-19-2023 Globulin (S) [Mass/Vol] 3.5 g/dL [facility] Glucose [Mass/volume] in Ser um or PlasmaOrdered By: Wander Davidson on 10-19-2023 Glucose [Mass/Vol] 202 mg/dL High 70-100 [facility] Comment on above: ADA recommended refe rence rangeRandom Glucose Reference Range is dependent on time and content of last meal. Glucose of more than 200 mg/dL in a nonstressed, ambulatory subject supports the diagnosis of Diabetes Mellitus. Hematocrit Auto (Bld) [Volum e fraction]Ordered By: Wander Davidson on 10-19-2023 Hematocrit (Bld) [Volume fraction] 21.3 % Low 38.8-50.0 [facility] Hemoglobin [Mass/volume] in BloodOrdered By: Wander Davidson on 10-19-2023 Hemoglobin (Bld) [Mass/Vol] 7.4 g/dL Low 13.0-17.0 [facility] INR in Platelet poor plasma by Coagulation assayOrdered By: Wander Davidson on 10-19-2023 INR Coag (PPP) [Relative time] 2.0 {INR} [facility] Comment on above: INR Therapeutic Rang [...] 10-19-2023 Iron [Mass/Vol] 39 ug/dL Low 50-212 [facility] Iron binding capacity [Mass/ volume] in Serum or PlasmaOrdered By: Wander Davidson on 10-19-2023 Iron binding capacity [Mass/Vol] 225 ug/dL Low 255-450 [facility] Iron saturation [Mass Fracti on] in Serum or PlasmaOrdered By: Wander Davidson on 10-19-2023 Iron saturation [Mass fraction] 17.3 % Low 20-50 [facility] Leukocytes [#/volume] correc liborio for nucleated erythrocytes in Blood by Automated counOrdered By: Wander Davidson on 10-19-2023 WBC corrected for nucl RBC Auto (Bld) [#/Vol] 12.3 10*3/uL High 4.1-10.5 [facility] Lymphocytes Auto (Bld) [#/Vo l]Ordered By: Wander Davidson on 10-19-2023 Lymphocytes (Bld) [#/Vol] 0.3 10*3/uL Low 1.00-4.8 [facility] Lymphocytes/100 WBC Auto (Bl d)Ordered By: Wander Davidson on 10-19-2023 Lymphocytes/100 WBC (Bld) 2.5 % . [facility] MCH Auto (RBC) [Entitic mass ]Ordered By: Wander Davidson on 10-19-2023 MCH (RBC) [Entitic mass] 32.1 pg 27.5-35.2 [facility] MCHC Auto (RBC) [Mass/Vol]Or dered By: Wander Davidson on 10-19-2023 MCHC (RBC) [Mass/Vol] 34.8 g/dL 32.5-35.6 [facility] MCV Auto (RBC) [Entitic vol] Ordered By: Wander Davidson on 10-19-2023 MCV (RBC) [Entitic vol] 92.2 fL 83.5-101 [facility] Magnesium [Mass/volume] in S paulo or PlasmaOrdered By: Wander Davidson on 10-19-2023 Magnesium [Mass/Vol] 1.8 mg/dL Low 1.9-2.7 [facility] Monocyte distribution width [Entitic volume] in Blood by AutomatedOrdered By: Wander Davidson on 10-19-2023 Monocyte distribution width Auto (Bld) [Entitic vol] 26.69 % High 0.00-20.00 [facility] Comment on above: For adults in ED, MD W > 20.0 may be associated with a higher risk of sepsis during the first 12 hrs of hospital admissionThe predictive value of MDW for identifying sepsis in patients with hematological abnormalities has not been established Monocytes Auto (Bld) [#/Vol] Ordered By: Wander Davidson on 10-19-2023 Monocytes (Bld) [#/Vol] 0.4 10*3/uL 0.0-0.8 [facility] Monocytes/100 WBC Auto (Bld) Ordered By: Wander Davidson on 10-19-2023 Monocytes/100 WBC (Bld) 3.4 % . [facility] Natriuretic peptide B [Mass/ Vol]Ordered By: Wander Davidson on 10-19-2023 Natriuretic peptide B (Bld) [Mass/Vol] 315.0 pg/mL High 5-100 [facility] Neutrophils Auto (Bld) [#/Vo l]Ordered By: Wander Davidson on 10-19-2023 Neutrophils (Bld) [#/Vol] 11.6 10*3/uL High 1.8-7.7 [facility] Neutrophils/100 WBC Auto (Bl d)Ordered By: Wander Davidson on 10-19-2023 Neutrophils/100 WBC (Bld) 93.9 % . [facility] No Panel InformationOrdered By: Wander Davidson on 10-19-2023 Estimated GFR (CKD-EPI) 16.885 mL/Min [facility] Creatinine Clearance (Chem 20.08 [facility] Nucleated erythrocytes [Pres ence] in Blood by Automated countOrdered By: Wander Davidson on 10-19-2023 Nucleated RBC Auto Ql (Bld) 0.1 /100{WBC} 0-0.5 [facility] Platelet adequacy [Presence] in Blood by Light microscopyOrdered By: Wander Davidson on 10-19-2023 Platelets LM Ql (Bld) Normal Normal [facility] Platelet mean volume Auto (B ld) [Entitic vol]Ordered By: Wander Davidson on 10-19-2023 Platelet mean volume (Bld) [Entitic vol] 7.6 fL 6.6-10.1 [facility] Platelet morphology finding [Identifier] in BloodOrdered By: Wander Davidson on 10-19-2023 Platelet morphology finding Nom (Bld) Normal Normal [facility] Platelets Auto (Bld) [#/Vol] Ordered By: Wander Davidson on 10-19-2023 Platelets (Bld) [#/Vol] 210 10*3/uL 150-450 [facility] Potassium [Moles/volume] in Serum or PlasmaOrdered By: Wander Davidson on 10-19-2023 Potassium [Moles/Vol] 5.0 mmol/L 3.5-5.1 [facility] Protein [Mass/volume] in Ser um or PlasmaOrdered By: Wander Davidson on 10-19-2023 Protein [Mass/Vol] 6.6 g/dL 6.4-8.9 [facility] Prothrombin time (PT)Ordered By: Wander Davidson on 10-19-2023 PT Coag (PPP) [Time] 22.8 s High 9.0-12.9 [facility] Comment on above: A hematocrit value g reater than 55% may lead to inaccurate results in coagulation testing. Patients having hematocrit values >55% require a special collection tube for coagulation studies. Please contact the laboratory at [phone] for redraw instructions. RBC Auto (Bld) [#/Vol]Ordere d By: Wander Davidson on 10-19-2023 RBC (Bld) [#/Vol] 2.31 10*6/uL Low 3.90-5.60 [facility] RBC morphologyOrdered By: Marbin Davidson on 10-19-2023 RBC morphology finding Nom (Bld) N/A [facility] Serum or plasma albumin/glob ulin mass ratioOrdered By: Wander Davidson on 10-19-2023 Albumin/Globulin [Mass ratio] 0.9 {ratio} [facility] Serum or plasma anion gap de terminationOrdered By: Wander Davidson on 10-19-2023 Anion gap [Moles/Vol] 18.6 mmol/L High 6.0-15.0 [facility] Sodium [Moles/volume] in Ser um or PlasmaOrdered By: Wander Davidson on 10-19-2023 Sodium [Moles/Vol] 127 mmol/L Low 136-145 [facility] Transferrin [Mass/volume] in Serum or PlasmaOrdered By: Wander Davidson on 10-19-2023 Transferrin [Mass/Vol] 161 mg/dL Low 203-362 [facility] Troponin I.cardiac [Mass/vol ume] in Serum or Plasma by Detection limit <= 0.01 ng/Ordered By: Wander Davidson on 10-19-2023 Troponin I.cardiac DL <= 0.01 ng/mL [Mass/Vol] 28.7 pg/mL High 0.0-20.0 [facility] Urea nitrogen [Mass/volume] in Serum or PlasmaOrdered By: Wander Davidson on 10-19-2023 Urea nitrogen [Mass/Vol] 78 mg/dL High 7-25 [facility] WBC Auto (Bld) [#/Vol]Ordere d By: Wander Davidson on 10-19-2023 WBC (Bld) [#/Vol] 12.3 10*3/uL High 4.1-10.[address] [facility] [address] TAVR low contrast chest a bdomen [...] Jarvis Vallecillo 10/06/2023 2:54 PM Dictation workstation: [id number] MMODAL Interpreted By: Jarvis Isaac, Vandana Reveles STUDY: CT TAVR LOW CONTRAST CHEST ABDOMEN PELVIS; 10/06/2023 1:00 pm INDICATION: Signs/Symptoms:aortic stenosis, dyspnea, fatigue, 02/26/23 Echo; aortic peak [place] 3.92, aortic mean 33. COMPARISON: None. ACCESSION NUMBER(S): [id number] ORDERING CLINICIAN: MEDARDO TASI TECHNIQUE: Multi-detector CT technology was employed. Initial [...] The thoracic aorta normal in course and caliber.Hvxs-ps-cyqaxgqe calcifications of the aorta and branch vessels. [...] is seen.There is mild diffuse peribronchial thickening. Cvotr-vazufjf-yliv-left small pleural effusions. Interlobular septal thickening primarily in dependent portions with associated areas of consolidation and ground-glass opacity. Apical predominant mild emphysema. Mild bronchiectasis in the lwliq-mmwmyky-wtur-left lower lobes. ABDOMINAL AORTA: The abdominal aorta [...] aortic mean 33. COMPARISON: None. ACCESSION NUMBER(S): [id number] ORDERING CLINICIAN: MEDARDO TSAI TECHNIQUE: Multi-detector CT [...] The thoracic aorta normal in course and caliber.Ehsq-qt-nxsicsfa calcifications of the aorta and branch vessels. [...] is seen.There is mild diffuse peribronchial thickening. Wtahp-zusplxi-kqcf-left small pleural effusions. Interlobular septal thickening primarily in dependent portions with associated areas of consolidation and ground-glass opacity. Apical predominant mild emphysema. Mild bronchiectasis in the pmuwy-gtuiqjr-tnur-left lower lobes. ABDOMINAL AORTA: The abdominal aorta [...] thickening or o (more content not included)... [facility] Work Phone: Radiology Study observation (narrative) [facility] Work Phone: CT TAVR low contrast chest a bdomen pelvisOrdered By: Jarvis Vallecillo on 10-06-2023 [facility] Work Phone: Albumin [Mass/volume] in Ser um or Plasma by Bromocresol green (BCG) dye binding methoOrdered By: Medardo Tsai on 09-22-2023 Albumin BCG dye [Mass/Vol] 3.5 g/dL 3.5-5.7 [facility] Calcium [Mass/volume] in Ser um or PlasmaOrdered By: Medardo Tsai on 09-22-2023 Calcium [Mass/Vol] 9.2 mg/dL 8.6-10.3 [facility] Carbon dioxide, total [Moles /volume] in Serum or PlasmaOrdered By: Medardo Tsai on 09-22-2023 CO2 [Moles/Vol] 31.8 mmol/L High 21.0-31.0 [facility] Chloride [Moles/volume] in S paulo or PlasmaOrdered By: Medardo Tsai on 09-22-2023 Chloride [Moles/Vol] 101 mmol/L 98-107 [facility] Creatinine [Mass/volume] in Serum or PlasmaOrdered By: Medardo Tsai on 09-22-2023 Creatinine [Mass/Vol] 1.46 mg/dL High 0.70-1.30 [facility] Glucose [Mass/volume] in Ser um or PlasmaOrdered By: Medardo Tsai on 09-22-2023 Glucose [Mass/Vol] 104 mg/dL High 70-100 [facility] Comment on above: ADA recommended refe rence rangeRandom Glucose Reference Range is dependent on time and content of last meal. Glucose of more than 200 mg/dL in a nonstressed, ambulatory subject supports the diagnosis of Diabetes Mellitus. No Panel InformationOrdered By: Medardo Tsai on 09-22-2023 Estimated GFR (CKD-EPI) 48.015 mL/Min [facility] Creatinine Clearance (Chem N/A [facility] Phosphate [Mass/volume] in S paulo or PlasmaOrdered By: Medardo Tsai on 09-22-2023 Phosphate [Mass/Vol] 4.0 mg/dL 2.5-4.5 [facility] Potassium [Moles/volume] in Serum or PlasmaOrdered By: Medardo Tsai on 09-22-2023 Potassium [Moles/Vol] 4.6 mmol/L 3.5-5.1 [facility] Serum or plasma anion gap de terminationOrdered By: Medardo Tsai on 09-22-2023 Anion gap [Moles/Vol] 12.8 mmol/L 6.0-15.0 [facility] Sodium [Moles/volume] in Ser um or PlasmaOrdered By: Medardo Tsai on 09-22-2023 Sodium [Moles/Vol] 141 mmol/L 136-145 [facility] Urea nitrogen [Mass/volume] in Serum or PlasmaOrdered By: Medardo Tsai on 09-22-2023 Urea nitrogen [Mass/Vol] 41 mg/dL High 7-25 [facility] Basophils Auto (Bld) [#/Vol] Ordered By: Misael Gonzales on 09-15-2023 Basophils (Bld) [#/Vol] 0.0 10*3/uL 0.0-0.2 [facility] Basophils/100 WBC Auto (Bld) Ordered By: Misael Gonzales on 09-15-2023 Basophils/100 WBC (Bld) 0.4 % . [facility] Calcium [Mass/volume] in Ser um or PlasmaOrdered By: Astrid Osman on 09-15-2023 Calcium [Mass/Vol] 8.1 mg/dL Low 8.6-10.3 [facility] Carbon dioxide, total [Moles /volume] in Serum or PlasmaOrdered By: Astrid Osman on 09-15-2023 CO2 [Moles/Vol] 30.4 mmol/L 21.0-31.0 [facility] Chloride [Moles/volume] in S paulo or PlasmaOrdered By: Astrid Osman on 09-15-2023 Chloride [Moles/Vol] 103 mmol/L 98-107 [facility] Creatinine [Mass/volume] in Serum or PlasmaOrdered By: Astrid Osman on 09-15-2023 Creatinine [Mass/Vol] 1.01 mg/dL 0.70-1.30 [facility] Eosinophils Auto (Bld) [#/Vo l]Ordered By: Misael Gonzales on 09-15-2023 Eosinophils (Bld) [#/Vol] 0.1 10*3/uL 0.0-0.45 [facility] Eosinophils/100 WBC Auto (Bl d)Ordered By: Misael Gonzales on 09-15-2023 Eosinophils/100 WBC (Bld) 1.8 % . [facility] Erythrocyte distribution wid th Auto (RBC) [Ratio]Ordered By: Misael Gonzales on 09-15-2023 Erythrocyte distribution width (RBC) [Ratio] 17.7 % High 12.0-14.8 [facility] Glucose Glucometer (BldC) [M ass/Vol]Ordered By: Misael Gonzales on 09-15-2023 Glucose [Mass/Vol] 208 mg/dL [facility] Comment on above: Random Glucose Refer ence Range is dependent on time and content of last meal. Glucose of more than 200 mg/dL in a nonstressed, ambulatory subject supports the diagnosis of Diabetes Mellitus. Glucose [Mass/volume] in Ser um or PlasmaOrdered By: Astrid Osman on 09-15-2023 Glucose [Mass/Vol] 142 mg/dL High 70-100 [facility] Comment on above: ADA recommended refe rence rangeRandom Glucose Reference Range is dependent on time and content of last meal. Glucose of more than 200 mg/dL in a nonstressed, ambulatory subject supports the diagnosis of Diabetes Mellitus. Hematocrit Auto (Bld) [Volum e fraction]Ordered By: Misael Gonzales on 09-15-2023 Hematocrit (Bld) [Volume fraction] 30.8 % Low 38.8-50.0 [facility] Hemoglobin [Mass/volume] in BloodOrdered By: Misael Gonzales on 09-15-2023 Hemoglobin (Bld) [Mass/Vol] 10.5 g/dL Low 13.0-17.0 [facility] Leukocytes [#/volume] correc liborio for nucleated erythrocytes in Blood by Automated counOrdered By: Misael Gonzales on 09-15-2023 WBC corrected for nucl RBC Auto (Bld) [#/Vol] 6.6 10*3/uL 4.1-10.5 [facility] Lymphocytes Auto (Bld) [#/Vo l]Ordered By: Misael Gonzales on 09-15-2023 Lymphocytes (Bld) [#/Vol] 0.8 10*3/uL Low 1.00-4.8 [facility] Lymphocytes/100 WBC Auto (Bl d)Ordered By: Misael Gonzales on 09-15-2023 Lymphocytes/100 WBC (Bld) 12.1 % . [facility] MCH Auto (RBC) [Entitic mass ]Ordered By: Misael Gonzales on 09-15-2023 MCH (RBC) [Entitic mass] 32.0 pg 27.5-35.2 [facility] MCHC Auto (RBC) [Mass/Vol]Or dered By: Misael Gonzales on 09-15-2023 MCHC (RBC) [Mass/Vol] 34.1 g/dL 32.5-35.6 [facility] MCV Auto (RBC) [Entitic vol] Ordered By: Misael Gonzales on 09-15-2023 MCV (RBC) [Entitic vol] 93.8 fL 83.5-101 [facility] Monocytes Auto (Bld) [#/Vol] Ordered By: Misael Gonzales on 09-15-2023 Monocytes (Bld) [#/Vol] 0.7 10*3/uL 0.0-0.8 [facility] Monocytes/100 WBC Auto (Bld) Ordered By: Misael Gonzales on 09-15-2023 Monocytes/100 WBC (Bld) 10.2 % . [facility] Neutrophils Auto (Bld) [#/Vo l]Ordered By: Misael Gonzales on 09-15-2023 Neutrophils (Bld) [#/Vol] 5.0 10*3/uL 1.8-7.7 [facility] Neutrophils/100 WBC Auto (Bl d)Ordered By: Misael Gonzales on 09-15-2023 Neutrophils/100 WBC (Bld) 75.5 % . [facility] No Panel InformationOrdered By: Astrid Osman on 09-15-2023 Estimated GFR (CKD-EPI) > 60.0 mL/Min [facility] Creatinine Clearance (Chem 69.89 [facility] Nucleated erythrocytes [Pres ence] in Blood by Automated countOrdered By: Misael Gonzales on 09-15-2023 Nucleated RBC Auto Ql (Bld) 0.1 /100{WBC} 0-0.5 [facility] Platelet mean volume Auto (B ld) [Entitic vol]Ordered By: Misael Gonzales on 09-15-2023 Platelet mean volume (Bld) [Entitic vol] 8.2 fL 6.6-10.1 [facility] Platelets Auto (Bld) [#/Vol] Ordered By: Misael Gonzales on 09-15-2023 Platelets (Bld) [#/Vol] 163 10*3/uL 150-450 [facility] Potassium [Moles/volume] in Serum or PlasmaOrdered By: Astrid Osman on 09-15-2023 Potassium [Moles/Vol] 3.8 mmol/L 3.5-5.1 [facility] RBC Auto (Bld) [#/Vol]Ordere d By: Misael Gonzales on 09-15-2023 RBC (Bld) [#/Vol] 3.28 10*6/uL Low 3.90-5.60 [facility] Serum or plasma anion gap de terminationOrdered By: Astrid Osman on 09-15-2023 Anion gap [Moles/Vol] 8.4 mmol/L 6.0-15.0 [facility] Sodium [Moles/volume] in Ser um or PlasmaOrdered By: Astrid Osman on 09-15-2023 Sodium [Moles/Vol] 138 mmol/L 136-145 [facility] Urea nitrogen [Mass/volume] in Serum or PlasmaOrdered By: Astrid Osman on 09-15-2023 Urea nitrogen [Mass/Vol] 21 mg/dL 7-25 [facility] WBC Auto (Bld) [#/Vol]Ordere d By: Misael Gonzales on 09-15-2023 WBC (Bld) [#/Vol] 6.6 10*3/uL 4.1-10.5 [facility] Activated partial thrombopla stin time (aPTT) in platelet poor plasma by coagulation aOrdered By: Joby Pinedo on 09-14-2023 aPTT Coag (PPP) [Time] 39.9 s High 25.1-36.5 [facility] Comment on above: A hematocrit value g reater than 55% may lead to inaccurate results in coagulation testing. Patients having hematocrit values >55% require a special collection tube for coagulation studies. Please contact the laboratory at [phone] for redraw instructions. INR in Platelet poor plasma by Coagulation assayOrdered By: Joby Pinedo on 09-14-2023 INR Coag (PPP) [Relative time] 1.1 {INR} [facility] Comment on above: INR Therapeutic Rang [...] 09-14-2023 Magnesium [Mass/Vol] 1.6 mg/dL Low 1.9-2.7 [facility] Prothrombin time (PT)Ordered By: Joby Pinedo on 09-14-2023 PT Coag (PPP) [Time] 13.2 s High 9.0-12.9 [facility] Comment on above: A hematocrit value g reater than 55% may lead to inaccurate results in coagulation testing. Patients having hematocrit values >55% require a special collection tube for coagulation studies. Please contact the laboratory at [phone] for redraw instructions. Triiodothyronine (T3) [Mass/ volume] in Serum or PlasmaOrdered By: Misael Gonzales on 09-14-2023 T3 [Mass/Vol] 0.58 ng/mL Low 0.87-1.78 [facility] Alanine aminotransferase [En zymatic activity/volume] in Serum or PlasmaOrdered By: Nash Harris on 09-13-2023 ALT [Catalytic activity/Vol] 12 U/L 7-52 [facility] Albumin [Mass/volume] in Ser um or Plasma by Bromocresol green (BCG) dye binding methoOrdered By: Nash Harris on 09-13-2023 Albumin BCG dye [Mass/Vol] 3.2 g/dL Low 3.5-5.7 [facility] Alkaline phosphatase [Enzyma tic activity/volume] in Serum or PlasmaOrdered By: Nash Harris on 09-13-2023 ALP [Catalytic activity/Vol] 47 U/L 34-104 [facility] Aspartate aminotransferase [ Enzymatic activity/volume] in Serum or PlasmaOrdered By: Nash Harris on 09-13-2023 AST [Catalytic activity/Vol] 17 U/L 13-39 [facility] Bilirubin.total [Mass/volume ] in Serum or PlasmaOrdered By: Nash Harris on 09-13-2023 Bilirubin [Mass/Vol] 1.5 mg/dL High 0.3-1.0 [facility] Comment on above: Samples from patient s who have taken Naproxen have shown spurious elevation in Total Bilirubin levels. A metabolite of Naproxen, O-desmethylnaproxen, has been shown to interfere with the Femi-Batsheva method for measuring Total Bilirubin. Globulin Calc (S) [Mass/Vol] Ordered By: Nash Harris on 09-13-2023 Globulin (S) [Mass/Vol] 2.2 g/dL [facility] Laboratory - Chemistry and C hemistry - challengeOrdered By: Misael Gonzales on 09-13-2023 CO2 [Moles/Vol] 26.7 mmol/L 23.0-27.0 [facility] HCO3 (Bld) [Moles/Vol] 25.6 mmol/L 23.0-29.0 [facility] No Panel InformationOrdered By: Misael Gonzales on 09-13-2023 Bedside Glucose Comment Glu2: cleaned meter [facility] Arterial Blood Base Excess 2.0 mmol/L -3.0-3.0 [facility] Arterial Blood Oxygen Content 6.3 mmol/L Low 6.6-9.7 [facility] Arterial Blood Oxygen Saturation 87.9 % Low 95.0-100.0 [facility] Arterial Blood Partial Pressure CO2 36.0 mm[Hg] 35.0-45.0 [facility] Arterial Blood Partial Pressure O2 52.6 mm[Hg] Low 80.0-100.0 [facility] Arterial Blood pH 7.47 High 7.35-7.45 [facility] Blood Gas Critical Value See comment [facility] Comment on above: Critical Value alarcon d on: 09/13/2023 at 13:15 Blood Gas Liter Flow 3 L/min [facility] Blood Gas Sample Site Right brachial [facility] FiO2 34 % [facility] Oxygen Delivery Device Nasal cannula [facility] Protein [Mass/volume] in Ser um or PlasmaOrdered By: Nash Harris on 09-13-2023 Protein [Mass/Vol] 5.4 g/dL Low 6.4-8.9 [facility] Serum or plasma albumin/glob ulin mass ratioOrdered By: Nash Harris on 09-13-2023 Albumin/Globulin [Mass ratio] 1.5 {ratio} [facility] Thyroxine (T4) free [Mass/vo lume] in Serum or PlasmaOrdered By: Misael Gonzales on 09-13-2023 Free T4 [Mass/Vol] 1.41 ng/dL High 0.61-1.12 [facility] Alanine aminotransferase [En zymatic activity/volume] in Serum or PlasmaOrdered By: Manny Perez on 09-09-2023 ALT [Catalytic activity/Vol] 16 U/L 7-52 [facility] Albumin [Mass/volume] in Ser um or Plasma by Bromocresol green (BCG) dye binding methoOrdered By: Manny Perez on 09-09-2023 Albumin BCG dye [Mass/Vol] 3.5 g/dL 3.5-5.7 [facility] Alkaline phosphatase [Enzyma tic activity/volume] in Serum or PlasmaOrdered By: Manny Perez on 09-09-2023 ALP [Catalytic activity/Vol] 55 U/L 34-104 [facility] Aspartate aminotransferase [ Enzymatic activity/volume] in Serum or PlasmaOrdered By: Manny Sanfordland on 09-09-2023 AST [Catalytic activity/Vol] 21 U/L 13-39 [facility] Basophils Auto (Bld) [#/Vol] Ordered By: Manny Sanfordland on 09-09-2023 Basophils (Bld) [#/Vol] 0.1 10*3/uL 0.0-0.2 [facility] Basophils/100 WBC Auto (Bld) Ordered By: Manny Sanfordland on 09-09-2023 Basophils/100 WBC (Bld) 0.5 % . [facility] Bilirubin.total [Mass/volume ] in Serum or PlasmaOrdered By: Manny Sanfordland on 09-09-2023 Bilirubin [Mass/Vol] 2.2 mg/dL 0.3-1.0 [facility] Comment on above: Samples from patient s who have taken Naproxen have shown spurious elevation in Total Bilirubin levels. A metabolite of Naproxen, O-desmethylnaproxen, has been shown to interfere with the Jendrjocelyneik-Grodebra method for measuring Total Bilirubin. COVID CepheidOrdered By: Ghanshyam Perez on 09-09-2023 SARS-CoV-2 (COVID-19) Ab IA Ql Negative Negative [facility] Comment on above: This is a duplicate Cepheid Xpert Xpress CoV-2/Flu/RSV Plus RNA by RT-PCR result to be used for statistical tracking purpose only. SARS-CoV-2 (COVID-19) RNA KRISTIE+probe Ql (Unsp spec) [facility] Calcium [Mass/volume] in Ser um or PlasmaOrdered By: Manny Sanfordland 09-09-2023 Calcium [Mass/Vol] 8.8 mg/dL 8.6-10.3 [facility] Carbon dioxide, total [Moles /volume] in Serum or PlasmaOrdered By: Manny Sanfordland on 09-09-2023 CO2 [Moles/Vol] 24.3 mmol/L 21.0-31.0 [facility] Chloride [Moles/volume] in S paulo or PlasmaOrdered By: Manny Sanfordland 09-09-2023 Chloride [Moles/Vol] 102 mmol/L 98-107 [facility] Creatine kinase [Enzymatic a ctivity/volume] in Serum or PlasmaOrdered By: Manny Sanfordland 09-09-2023 CK [Catalytic activity/Vol] 40 U/L 30-223 [facility] Creatinine [Mass/volume] in Serum or PlasmaOrdered By: Manny Sanfordland 09-09-2023 Creatinine [Mass/Vol] 1.21 mg/dL 0.70-1.30 [facility] Eosinophils Auto (Bld) [#/Vo l]Ordered By: [facility] 09-09-2023 Eosinophils (Bld) [#/Vol] 0.1 10*3/uL 0.0-0.45 [facility] Eosinophils/100 WBC Auto (Bl d)Ordered By: [facility] 09-09-2023 Eosinophils/100 WBC (Bld) 0.5 % . [facility] Erythrocyte distribution wid th Auto (RBC) [Ratio]Ordered By: Manny Perez 09-09-2023 Erythrocyte distribution width (RBC) [Ratio] 18.4 % 12.0-14.8 [facility] Globulin Calc (S) [Mass/Vol] Ordered By: [facility] 09-09-2023 Globulin (S) [Mass/Vol] 2.8 g/dL [facility] Glucose [Mass/volume] in Ser um or PlasmaOrdered By: Manny Sanfordland 09-09-2023 Glucose [Mass/Vol] 239 mg/dL 70-100 [facility] Comment on above: ADA recommended refe rence rangeRandom Glucose Reference Range is dependent on time and content of last meal. Glucose of more than 200 mg/dL in a nonstressed, ambulatory subject supports the diagnosis of Diabetes Mellitus. Hematocrit Auto (Bld) [Volum e fraction]Ordered By: Manny Perez on 09-09-2023 Hematocrit (Bld) [Volume fraction] 36.7 % 38.8-50.0 [facility] Hemoglobin [Mass/volume] in BloodOrdered By: Manny Perez on 09-09-2023 Hemoglobin (Bld) [Mass/Vol] 12.6 g/dL 13.0-17.0 [facility] Leukocytes [#/volume] correc liborio for nucleated erythrocytes in Blood by Automated counOrdered By: Manny Perez on 09-09-2023 WBC corrected for nucl RBC Auto (Bld) [#/Vol] 11.0 10*3/uL 4.1-10.5 [facility] Lymphocytes Auto (Bld) [#/Vo l]Ordered By: Manny Perez on 09-09-2023 Lymphocytes (Bld) [#/Vol] 0.4 10*3/uL 1.00-4.8 [facility] Lymphocytes/100 WBC Auto (Bl d)Ordered By: Manny Perez on 09-09-2023 Lymphocytes/100 WBC (Bld) 4.0 % . [facility] MCH Auto (RBC) [Entitic mass ]Ordered By: Manny Perez 09-09-2023 MCH (RBC) [Entitic mass] 31.9 pg 27.5-35.2 [facility] MCHC Auto (RBC) [Mass/Vol]Or dered By: Manny Perez on 09-09-2023 MCHC (RBC) [Mass/Vol] 34.3 g/dL 32.5-35.6 [facility] MCV Auto (RBC) [Entitic vol] Ordered By: Manny Perez on 09-09-2023 MCV (RBC) [Entitic vol] 92.8 fL 83.5-101 [facility] Monocyte distribution width [Entitic volume] in Blood by AutomatedOrdered By: Manny Perez 09-09-2023 Monocyte distribution width Auto (Bld) [Entitic vol] 20.88 % High 0.00-20.00 [facility] Comment on above: For adults in ED, MD W > 20.0 may be associated with a higher risk of sepsis during the first 12 hrs of hospital admission Monocytes Auto (Bld) [#/Vol] Ordered By: Manny Perez on 09-09-2023 Monocytes (Bld) [#/Vol] 0.6 10*3/uL 0.0-0.8 [facility] Monocytes/100 WBC Auto (Bld) Ordered By: Manny Perez on 09-09-2023 Monocytes/100 WBC (Bld) 5.7 % . [facility] Natriuretic peptide B [Mass/ Vol]Ordered By: Manny Perez on 09-09-2023 Natriuretic peptide B (Bld) [Mass/Vol] 517.0 pg/mL High 5-100 [facility] Neutrophils Auto (Bld) [#/Vo l]Ordered By: Manny Sanfordland on 09-09-2023 Neutrophils (Bld) [#/Vol] 9.8 10*3/uL 1.8-7.7 [facility] Neutrophils/100 WBC Auto (Bl d)Ordered By: Manny Sanfordland on 09-09-2023 Neutrophils/100 WBC (Bld) 89.3 % . [facility] No Panel InformationOrdered By: Manny Perez on 09-09-2023 Estimated GFR (CKD-EPI) > 60.0 mL/Min [facility] Creatinine Clearance (Chem 57.51 [facility] Nucleated erythrocytes [Pres ence] in Blood by Automated countOrdered By: Manny Perez on 09-09-2023 Nucleated RBC Auto Ql (Bld) 0.0 /100{WBC} 0-0.5 [facility] Platelet mean volume Auto (B ld) [Entitic vol]Ordered By: Manny Perez on 09-09-2023 Platelet mean volume (Bld) [Entitic vol] 7.8 fL 6.6-10.1 [facility] Platelets Auto (Bld) [#/Vol] Ordered By: Manny Perez 09-09-2023 Platelets (Bld) [#/Vol] 279 10*3/uL 150-450 [facility] Potassium [Moles/volume] in Serum or PlasmaOrdered By: Manny Perez on 09-09-2023 Potassium [Moles/Vol] 3.9 mmol/L 3.5-5.1 [facility] Protein [Mass/volume] in Ser um or PlasmaOrdered By: Manny Perez on 09-09-2023 Protein [Mass/Vol] 6.3 g/dL 6.4-8.9 [facility] RBC Auto (Bld) [#/Vol]Ordere d By: Manny Perez on 09-09-2023 RBC (Bld) [#/Vol] 3.95 10*6/uL 3.90-5.60 [facility] Serum or plasma albumin/glob ulin mass ratioOrdered By: Manny Perez on 09-09-2023 Albumin/Globulin [Mass ratio] 1.3 {ratio} [facility] Serum or plasma anion gap de terminationOrdered By: Manny Perez 09-09-2023 Anion gap [Moles/Vol] 15.6 mmol/L 6.0-15.0 [facility] Sodium [Moles/volume] in Ser um or PlasmaOrdered By: Manny Perez 09-09-2023 Sodium [Moles/Vol] 138 mmol/L 136-145 [facility] Thyrotropin [Units/volume] i n Serum or PlasmaOrdered By: Astrid Osman on 09-09-2023 TSH Qn 5.51 m[IU]/L High 0.45-5.33 [facility] Troponin I.cardiac [Mass/vol ume] in Serum or Plasma by Detection limit <= 0.01 ng/Ordered By: Astrid Osman on 09-09-2023 Troponin I.cardiac DL <= 0.01 ng/mL [Mass/Vol] 22.5 pg/mL High 0.0-20.0 [facility] Troponin I.cardiac [Mass/vol ume] in Serum or Plasma by Detection limit <= 0.01 ng/Ordered By: Manny Perez on 09-09-2023 Troponin I.cardiac DL <= 0.01 ng/mL [Mass/Vol] 15.9 pg/mL 0.0-20.0 [facility] Urea nitrogen [Mass/volume] in Serum or PlasmaOrdered By: Manny Perez on 09-09-2023 Urea nitrogen [Mass/Vol] 27 mg/dL 7-25 [facility] WBC Auto (Bld) [#/Vol]Ordere d By: Manny Perez on 09-09-2023 WBC (Bld) [#/Vol] 11.0 10*3/uL 4.1-10.5 [facility] Calcium [Mass/volume] in Ser um or PlasmaOrdered By: Joby Pinedo on 07-07-2023 Calcium [Mass/Vol] 8.5 mg/dL Low 8.6-10.3 [facility] Carbon dioxide, total [Moles /volume] in Serum or PlasmaOrdered By: Joby Pinedo on 07-07-2023 CO2 [Moles/Vol] 28.2 mmol/L 21.0-31.0 [facility] Chloride [Moles/volume] in S paulo or PlasmaOrdered By: Joby Pinedo on 07-07-2023 Chloride [Moles/Vol] 103 mmol/L 98-107 [facility] Creatinine [Mass/volume] in Serum or PlasmaOrdered By: Joby Pinedo on 07-07-2023 Creatinine [Mass/Vol] 0.89 mg/dL 0.70-1.30 [facility] Glucose [Mass/volume] in Ser um or PlasmaOrdered By: Joby Pinedo on 07-07-2023 Glucose [Mass/Vol] 149 mg/dL High 70-100 [facility] Comment on above: ADA recommended refe rence rangeRandom Glucose Reference Range is dependent on time and content of last meal. Glucose of more than 200 mg/dL in a nonstressed, ambulatory subject supports the diagnosis of Diabetes Mellitus. No Panel InformationOrdered By: Joby Pinedo on 07-07-2023 Estimated GFR (CKD-EPI) > 60.0 mL/Min [facility] Creatinine Clearance (Chem N/A [facility] Potassium [Moles/volume] in Serum or PlasmaOrdered By: Joby Pinedo on 07-07-2023 Potassium [Moles/Vol] 3.9 mmol/L 3.5-5.1 [facility] Serum or plasma anion gap de terminationOrdered By: Joby Pinedo on 07-07-2023 Anion gap [Moles/Vol] 11.7 mmol/L 6.0-15.0 [facility] Sodium [Moles/volume] in Ser um or PlasmaOrdered By: Joby Pinedo on 07-07-2023 Sodium [Moles/Vol] 139 mmol/L 136-145 [facility] Urea nitrogen [Mass/volume] in Serum or PlasmaOrdered By: Joby Pinedo on 07-07-2023 Urea nitrogen [Mass/Vol] 16 mg/dL 7-25 [facility] NUCLEAR STRESS TESTon 2023 NUCLEAR STRESS TEST Interpreted By: Gabe Love and Beal Gina STUDY: MYOCARDIAL PERFUSION STRESS TEST WITH LEXISCAN Performing facility: [facility], [address] [place] [address], [address], [address] Provider: Joby Pinedo MD PCP: Dr. Martin RAYMUNDO Supervising provider: Dian Reyna DO, [facility] INDICATION: SOB HISTORY: Gender: M; Age: 82 y/o ; Height: HT 180.3 cm cm; Weight: WT 104.917 kg kg. High Cholesterol; SOB; HTN; Arrhythmias; AFib, Bradycardia RA, HF, Edema PPM Abnormal EKG; Quit smoking. COMPARISON: No comparison. ACCESSION NUMBER(S): [id number] ORDERING CLINICIAN: JOBY PINEDO TECHNIQUE: ONE DAY [...] Gabe Bowens 07/03/2023 5:07 PM Dictation workstation: [id number] [facility] Activated partial thrombopla stin time (aPTT) in platelet poor plasma by coagulation aOrdered By: Arnulfo Carter on 03-12-2023 aPTT Coag (PPP) [Time] 37.9 s 25.1-36.5 [facility] Comment on above: A hematocrit value g reater than 55% may lead to inaccurate results in coagulation testing. Patients having hematocrit values >55% require a special collection tube for coagulation studies. Please contact the laboratory at [phone] for redraw instructions. Basophils Auto (Bld) [#/Vol] Ordered By: Arnulfo Carter on 03-12-2023 Basophils (Bld) [#/Vol] 0.0 10*3/uL 0.0-0.2 [facility] Basophils/100 WBC Auto (Bld) Ordered By: Arnulfo Carter on 03-12-2023 Basophils/100 WBC (Bld) 1.1 % . [facility] Eosinophils Auto (Bld) [#/Vo l]Ordered By: Arnulfo Carter on 03-12-2023 Eosinophils (Bld) [#/Vol] 0.1 10*3/uL 0.0-0.45 [facility] Eosinophils/100 WBC Auto (Bl d)Ordered By: Arnulfo Carter on 03-12-2023 Eosinophils/100 WBC (Bld) 2.4 % . [facility] Erythrocyte distribution wid th Auto (RBC) [Ratio]Ordered By: Arnulfo Carter on 03-12-2023 Erythrocyte distribution width (RBC) [Ratio] 16.4 % 12.0-14.8 [facility] Glucose Glucometer (BldC) [M ass/Vol]Ordered By: Arnulfo Carter on 03-12-2023 Glucose [Mass/Vol] 126 mg/dL [facility] Comment on above: Random Glucose Refer ence Range is dependent on time and content of last meal. Glucose of more than 200 mg/dL in a nonstressed, ambulatory subject supports the diagnosis of Diabetes Mellitus. Hematocrit Auto (Bld) [Volum e fraction]Ordered By: Arnulfo Carter on 03-12-2023 Hematocrit (Bld) [Volume fraction] 34.2 % 38.8-50.0 [facility] Hemoglobin [Mass/volume] in BloodOrdered By: Arnulfo Carter on 03-12-2023 Hemoglobin (Bld) [Mass/Vol] 11.7 g/dL 13.0-17.0 [facility] INR in Platelet poor plasma by Coagulation assayOrdered By: Arnulfo Carter on 03-12-2023 INR Coag (PPP) [Relative time] 1.1 {INR} [facility] Comment on above: INR Therapeutic Rang [...] RBC Auto (Bld) [#/Vol] 4.6 10*3/uL 4.1-10.5 [facility] Lymphocytes Auto (Bld) [#/Vo l]Ordered By: Arnulfo Carter on 03-12-2023 Lymphocytes (Bld) [#/Vol] 1.0 10*3/uL 1.00-4.8 [facility] Lymphocytes/100 WBC Auto (Bl d)Ordered By: Arnulfo Carter on 03-12-2023 Lymphocytes/100 WBC (Bld) 21.4 % . [facility] MCH Auto (RBC) [Entitic mass ]Ordered By: Arnulfo Carter on 03-12-2023 MCH (RBC) [Entitic mass] 32.7 pg 27.5-35.2 [facility] MCHC Auto (RBC) [Mass/Vol]Or dered By: Arnulfo Carter on 03-12-2023 MCHC (RBC) [Mass/Vol] 34.1 g/dL 32.5-35.6 [facility] MCV Auto (RBC) [Entitic vol] Ordered By: Arnulfo Carter on 03-12-2023 MCV (RBC) [Entitic vol] 95.8 fL 83.5-101 [facility] Monocytes Auto (Bld) [#/Vol] Ordered By: Arnulfo Carter on 03-12-2023 Monocytes (Bld) [#/Vol] 0.4 10*3/uL 0.0-0.8 [facility] Monocytes/100 WBC Auto (Bld) Ordered By: Arnulfo Carter on 03-12-2023 Monocytes/100 WBC (Bld) 7.6 % . [facility] Neutrophils Auto (Bld) [#/Vo l]Ordered By: Arnulfo Carter on 03-12-2023 Neutrophils (Bld) [#/Vol] 3.1 10*3/uL 1.8-7.7 [facility] Neutrophils/100 WBC Auto (Bl d)Ordered By: Arnulfo Carter on 03-12-2023 Neutrophils/100 WBC (Bld) 67.5 % . [facility] No Panel InformationOrdered By: Arnulfo Carter on 03-12-2023 Bedside Glucose Comment Glu2: cleaned meter [facility] Nucleated erythrocytes [Pres ence] in Blood by Automated countOrdered By: Arnulfo Carter on 03-12-2023 Nucleated RBC Auto Ql (Bld) 0.0 /100{WBC} 0-0.5 [facility] Platelet mean volume Auto (B ld) [Entitic vol]Ordered By: Arnulfo Carter on 03-12-2023 Platelet mean volume (Bld) [Entitic vol] 9.1 fL 6.6-10.1 [facility] Platelets Auto (Bld) [#/Vol] Ordered By: Arnulfo Carter on 03-12-2023 Platelets (Bld) [#/Vol] 179 10*3/uL 150-450 [facility] Prothrombin time (PT)Ordered By: Arnulfo Carter on 03-12-2023 PT Coag (PPP) [Time] 13.5 s 9.0-12.9 [facility] Comment on above: A hematocrit value g reater than 55% may lead to inaccurate results in coagulation testing. Patients having hematocrit values >55% require a special collection tube for coagulation studies. Please contact the laboratory at [phone] for redraw instructions. RBC Auto (Bld) [#/Vol]Ordere d By: Arnulfo Carter on 03-12-2023 RBC (Bld) [#/Vol] 3.57 10*6/uL 3.90-5.60 [facility] WBC Auto (Bld) [#/Vol]Ordere d By: Arnulfo Carter on 03-12-2023 WBC (Bld) [#/Vol] 4.6 10*3/uL 4.1-10.5 [facility] Basophils Auto (Bld) [#/Vol] Ordered By: Arnulfo Carter on 03-10-2023 Basophils (Bld) [#/Vol] 0.1 10*3/uL 0.0-0.2 [facility] Basophils/100 WBC Auto (Bld) Ordered By: Arnulfo Carter on 03-10-2023 Basophils/100 WBC (Bld) 1.0 % . [facility] Calcium [Mass/volume] in Ser um or PlasmaOrdered By: Arnulfo Carter on 03-10-2023 Calcium [Mass/Vol] 8.8 mg/dL 8.6-10.3 [facility] Carbon dioxide, total [Moles /volume] in Serum or PlasmaOrdered By: Arnulfo Carter on 03-10-2023 CO2 [Moles/Vol] 24.5 mmol/L 21.0-31.0 [facility] Chloride [Moles/volume] in S paulo or PlasmaOrdered By: Arnulfo Carter on 03-10-2023 Chloride [Moles/Vol] 111 mmol/L 98-107 [facility] Creatinine [Mass/volume] in Serum or PlasmaOrdered By: Arnulfo Carter on 03-10-2023 Creatinine [Mass/Vol] 1.12 mg/dL 0.70-1.30 [facility] Eosinophils Auto (Bld) [#/Vo l]Ordered By: Arnulfo Carter on 03-10-2023 Eosinophils (Bld) [#/Vol] 0.2 10*3/uL 0.0-0.45 [facility] Eosinophils/100 WBC Auto (Bl d)Ordered By: Arnulfo Carter on 03-10-2023 Eosinophils/100 WBC (Bld) 3.1 % . [facility] Erythrocyte distribution wid th Auto (RBC) [Ratio]Ordered By: Arnulfo Carter on 03-10-2023 Erythrocyte distribution width (RBC) [Ratio] 16.4 % 12.0-14.8 [facility] Glucose [Mass/volume] in Ser um or PlasmaOrdered By: Arnulfo Carter on 03-10-2023 Glucose [Mass/Vol] 120 mg/dL 70-100 [facility] Comment on above: ADA recommended refe rence rangeRandom Glucose Reference Range is dependent on time and content of last meal. Glucose of more than 200 mg/dL in a nonstressed, ambulatory subject supports the diagnosis of Diabetes Mellitus. Hematocrit Auto (Bld) [Volum e fraction]Ordered By: Arnulfo Carter on 03-10-2023 Hematocrit (Bld) [Volume fraction] 37.0 % 38.8-50.0 [facility] Hemoglobin [Mass/volume] in BloodOrdered By: Arnulfo Carter on 03-10-2023 Hemoglobin (Bld) [Mass/Vol] 12.6 g/dL 13.0-17.0 [facility] Leukocytes [#/volume] correc liborio for nucleated erythrocytes in Blood by Automated counOrdered By: Arnulfo Carter on 03-10-2023 WBC corrected for nucl RBC Auto (Bld) [#/Vol] 5.5 10*3/uL 4.1-10.5 [facility] Lymphocytes Auto (Bld) [#/Vo l]Ordered By: Arnulfo Carter on 03-10-2023 Lymphocytes (Bld) [#/Vol] 1.0 10*3/uL 1.00-4.8 [facility] Lymphocytes/100 WBC Auto (Bl d)Ordered By: Arnulfo Carter on 03-10-2023 Lymphocytes/100 WBC (Bld) 18.6 % . [facility] MCH Auto (RBC) [Entitic mass ]Ordered By: Arnulfo Carter on 03-10-2023 MCH (RBC) [Entitic mass] 32.5 pg 27.5-35.2 [facility] MCHC Auto (RBC) [Mass/Vol]Or dered By: Arnulfo Carter on 03-10-2023 MCHC (RBC) [Mass/Vol] 34.1 g/dL 32.5-35.6 [facility] MCV Auto (RBC) [Entitic vol] Ordered By: Arnulfo Carter on 03-10-2023 MCV (RBC) [Entitic vol] 95.3 fL 83.5-101 [facility] Monocytes Auto (Bld) [#/Vol] Ordered By: Arnulfo Carter on 03-10-2023 Monocytes (Bld) [#/Vol] 0.5 10*3/uL 0.0-0.8 [facility] Monocytes/100 WBC Auto (Bld) Ordered By: Arnulfo Carter on 03-10-2023 Monocytes/100 WBC (Bld) 9.2 % . [facility] Neutrophils Auto (Bld) [#/Vo l]Ordered By: Arnulfo Carter on 03-10-2023 Neutrophils (Bld) [#/Vol] 3.7 10*3/uL 1.8-7.7 [facility] Neutrophils/100 WBC Auto (Bl d)Ordered By: Arnulfo Carter on 03-10-2023 Neutrophils/100 WBC (Bld) 68.1 % . [facility] No Panel InformationOrdered By: Arnulfo Carter on 03-10-2023 Estimated GFR (CKD-EPI) > 60.0 mL/Min [facility] Creatinine Clearance (Chem N/A [facility] Nucleated erythrocytes [Pres ence] in Blood by Automated countOrdered By: Arnulfo Carter on 03-10-2023 Nucleated RBC Auto Ql (Bld) 0.1 /100{WBC} 0-0.5 [facility] Platelet mean volume Auto (B ld) [Entitic vol]Ordered By: Arnulfo Carter on 03-10-2023 Platelet mean volume (Bld) [Entitic vol] 9.0 fL 6.6-10.1 [facility] Platelets Auto (Bld) [#/Vol] Ordered By: Arnulfo Carter on 03-10-2023 Platelets (Bld) [#/Vol] 183 10*3/uL 150-450 [facility] Potassium [Moles/volume] in Serum or PlasmaOrdered By: Arnulfo Carter on 03-10-2023 Potassium [Moles/Vol] 4.3 mmol/L 3.5-5.1 [facility] RBC Auto (Bld) [#/Vol]Ordere d By: Arnulfo Carter on 03-10-2023 RBC (Bld) [#/Vol] 3.88 10*6/uL 3.90-5.60 [facility] Serum or plasma anion gap de terminationOrdered By: Arnulfo Carter on 03-10-2023 Anion gap [Moles/Vol] 9.8 mmol/L 6.0-15.0 [facility] Sodium [Moles/volume] in Ser um or PlasmaOrdered By: Arnulfo Carter on 03-10-2023 Sodium [Moles/Vol] 141 mmol/L 136-145 [facility] Urea nitrogen [Mass/volume] in Serum or PlasmaOrdered By: Arnulfo Carter on 03-10-2023 Urea nitrogen [Mass/Vol] 22 mg/dL 7-25 [facility] WBC Auto (Bld) [#/Vol]Ordere d By: Arnulfo Carter on 03-10-2023 WBC (Bld) [#/Vol] 5.5 10*3/uL 4.1-10.5 [facility] XR CHEST 2 VIEWSon 3 XR CHEST 2 VIEWS Interpreted By: Erna Yap, STUDY: XR CHEST 2 VIEWS; 03/09/2023 7:14 am INDICATION: Signs/Symptoms:Pacemaker insertion. COMPARISON: None. ACCESSION NUMBER(S): [id number] ORDERING CLINICIAN: JOBY PINEDO FINDINGS: No consolidation. Streaky left basilar opacity suggestive of atelectasis. Trace left pleural effusion. No pneumothorax. Diffuse interstitial pulmonary opacities suggestive of pulmonary edema.. Enlarged heart size. No acute osseous abnormality. Atherosclerosis. Multilevel degenerative change in the spine. IMPRESSION: Cardiomegaly with pulmonary edema. Trace left pleural effusion. Signed by: Erna Velasquez 03/10/2023 11:50 AM Dictation workstation: [id number] [facility] TRANSTHORACIC ECHO (TTE) COM PLETEon 02-26-2023 TRANSTHORACIC ECHO (TTE) COMPLETE [address], [address] [place] [address] TRANSTHORACIC ECHOCARDIOGRAM REPORT Patient Name: SHAHID SANCHEZ Chastity Physician: [id number] Pinedo MD Study Date: 02/26/2023 Ordering Provider: Jeffrey PINEDO MRN/PID: [id number] Fellow: Nurse: Date of /Age: 7 1940 / 82 years Insurance Adjustor: Kaycee Morse RDCS, RVT Gender: M Additional Staff: Height: 180.34 cm Admit Date: Weight: 103.42 kg Admission Status: BSA: 2.23 m2 Department Location: [facility] Study Type: TRANSTHORACIC ECHO (TTE) COMPLETE Diagnosis/ICD: Other persistent AFib-I48.19; Bradycardia, unspecified-R00.1; Chronic systolic (congestive) heart failure (CHF)-I50.22; Essential (primary) hypertension-I10 Indication: Diabetes, POC, Former Smoker, Shortness of Breath, Rheumatoid Arthritis, History of Colon Cancer CPT Codes: Echo Complete w Full Doppler-[id number] Study Detail: The following Echo studies were [...] mmHg PIEDV: 2.71 m/s PADP: 32.4 mmHg [id number] Joby Pinedo MD Electronically signed on 02/26/2023 at 6:13:11 PM Final Normal [facility] US Heart Transthoracicon Aortic Valve Area by Continuity of Peak Velocity 1.08 [facility] Work Phone: Aortic Valve Area by Continuity of VTI 0.96 [facility] Work Phone: AV mn grad 33.0 [facility] Work Phone: AV pk grad 61.5 [facility] Work Phone: AV pk [place] 3.92 [facility] Work Phone: LV A4C EF 63.6 [facility] Work Phone: LVIDd 5.50 [facility] Work Phone: LVOT diam 2.50 [facility] Work Phone: MV avg E/e' ratio 19.30 [facility] Work Phone: MV E/A ratio 1.44 [facility] Work Phone: RVSP 64.2 [facility] Work Phone: [address], [address] [place] [address] TRANSTHORACIC ECHOCARDIOGRAM REPORT Patient Name: SHAHIDRODOLFO MCKEONKRISTOPHER Haywood Physician: [id number] Pinedo MD Study Date: 02/26/2023 Ordering Provider: Jeffrey PINEDO MRN/PID: [id number] Fellow: Nurse: Date of /Age: 7 1940 / 82 years Insurance Adjustor: Kaycee Morse RDCS, RVT Gender: M Additional Staff: Height: 180.34 cm Admit Date: Weight: 103.42 kg Admission Status: BSA: 2.23 m2 Department Location: [facility] Study Type: TRANSTHORACIC ECHO (TTE) COMPLETE Diagnosis/ICD: Other persistent AFib-I48.19; Bradycardia, unspecified-R00.1; Chronic systolic (congestive) heart failure (CHF)-I50.22; Essential (primary) hypertension-I10 Indication: Diabetes, POC, Former Smoker, Shortness of Breath, Rheumatoid Arthritis, History of Colon Cancer CPT Codes: Echo Complete w Full Doppler-[id number] Study Detail: The following Echo studies were [...] not included)... Joby Reeves MD - 02/26/[address], Suite [facility] [place] [address] TRANSTHORACIC ECHOCARDIOGRAM REPORT Patient Name: SHAHID SANCHEZ Reading Physician: [id number] Joby Pinedo MD Study Date: 02/26/2023 Ordering Provider: [id number] JOBY PINEDO MRN/PID: [id number] Fellow: Nurse: Date of /Age: 7 1940 / 82 years Insurance Adjustor: Kaycee Morse RDCS, RVT Gender: M Additional Staff: Height: 180.34 cm Admit Date: Weight: 103.42 kg Admission Status: BSA: 2.23 m2 Department Location: [facility] Study Type: TRANSTHORACIC ECHO (TTE) COMPLETE Diagnosis/ICD: Other persistent AFib-I48.19; Bradycardia, unspecified-R00.1; Chronic systolic (congestive) heart failure (CHF)-I50.22; Essential (primary) hypertension-I10 Indication: Diabetes, POC, Former Smoker, Shortness of Breath, Rheumatoid Arthritis, History of Colon Cancer CPT Codes: Echo Complete w Full Doppler-[id number] Study Detail: The following Echo studies were [...] mmHg PIEDV: 2.71 m/s PADP: 32.4 mmHg [id number] Joby Pinedo MD Electronically signed on 02/26/2023 at 6:13:11 PM Final [facility] Work Phone: [facility] Work Phone: ECG 12 Leadon 02-23-2023 Baseline rhythm appe ars to be atrial fibrillation or junctional with heart rate around 36 bpm. 1 PVC was noted. QRS duration is 156 ms [facility] Work Phone: Alanine aminotransferase [En zymatic activity/volume] in Serum or PlasmaOrdered By: Floyd Bolton on 01-28-2023 ALT [Catalytic activity/Vol] 21 U/L 7-52 [facility] Albumin [Mass/volume] in Ser um or Plasma by Bromocresol green (BCG) dye binding methoOrdered By: Floyd Bolton on 01-28-2023 Albumin BCG dye [Mass/Vol] 3.7 g/dL 3.5-5.7 [facility] Alkaline phosphatase [Enzyma tic activity/volume] in Serum or PlasmaOrdered By: Floyd Bolton on 01-28-2023 ALP [Catalytic activity/Vol] 47 U/L 34-104 [facility] Aspartate aminotransferase [ Enzymatic activity/volume] in Serum or PlasmaOrdered By: Floyd Bolton on 01-28-2023 AST [Catalytic activity/Vol] 22 U/L 13-39 [facility] Basophils Auto (Bld) [#/Vol] Ordered By: Floyd Bolton on 01-28-2023 Basophils (Bld) [#/Vol] 0.0 10*3/uL 0.0-0.2 [facility] Basophils/100 WBC Auto (Bld) Ordered By: Floyd Bolton on 01-28-2023 Basophils/100 WBC (Bld) 0.5 % . [facility] Bilirubin.total [Mass/volume ] in Serum or PlasmaOrdered By: Floyd Bolton on 01-28-2023 Bilirubin [Mass/Vol] 1.2 mg/dL 0.3-1.0 [facility] Calcium [Mass/volume] in Ser um or PlasmaOrdered By: Floyd Bolton on 01-28-2023 Calcium [Mass/Vol] 8.5 mg/dL 8.6-10.3 [facility] Carbon dioxide, total [Moles /volume] in Serum or PlasmaOrdered By: Floyd Bolton on 01-28-2023 CO2 [Moles/Vol] 23.7 mmol/L 21.0-31.0 [facility] Chloride [Moles/volume] in S paulo or PlasmaOrdered By: Floyd Bolton on 01-28-2023 Chloride [Moles/Vol] 110 mmol/L 98-107 [facility] Creatinine [Mass/volume] in Serum or PlasmaOrdered By: Floyd Bolton on 01-28-2023 Creatinine [Mass/Vol] 1.18 mg/dL 0.70-1.30 [facility] Eosinophils Auto (Bld) [#/Vo l]Ordered By: Floyd Bolton on 01-28-2023 Eosinophils (Bld) [#/Vol] 0.1 10*3/uL 0.0-0.45 [facility] Eosinophils/100 WBC Auto (Bl d)Ordered By: Floyd Bolton on 01-28-2023 Eosinophils/100 WBC (Bld) 2.3 % . [facility] Erythrocyte distribution wid th Auto (RBC) [Ratio]Ordered By: Floyd Bolton on 01-28-2023 Erythrocyte distribution width (RBC) [Ratio] 16.5 % 12.0-14.8 [facility] Erythrocyte sedimentation ra te by Photometric methodOrdered By: Floyd Bolton on 01-28-2023 ESR Photometric method (Bld) [Velocity] 16 mm/hr 0-19 [facility] Globulin Calc (S) [Mass/Vol] Ordered By: Floyd Bolton on 01-28-2023 Globulin (S) [Mass/Vol] 2.3 g/dL [facility] Glucose [Mass/volume] in Ser um or PlasmaOrdered By: Floyd Bolton on 01-28-2023 Glucose [Mass/Vol] 148 mg/dL 70-100 [facility] Comment on above: ADA recommended refe rence rangeRandom Glucose Reference Range is dependent on time and content of last meal. Glucose of more than 200 mg/dL in a nonstressed, ambulatory subject supports the diagnosis of Diabetes Mellitus. Hematocrit Auto (Bld) [Volum e fraction]Ordered By: Floyd Bolton on 01-28-2023 Hematocrit (Bld) [Volume fraction] 36.6 % 38.8-50.0 [facility] Hemoglobin [Mass/volume] in BloodOrdered By: Floyd Bolton on 01-28-2023 Hemoglobin (Bld) [Mass/Vol] 12.7 g/dL 13.0-17.0 [facility] Leukocytes [#/volume] correc liborio for nucleated erythrocytes in Blood by Automated counOrdered By: Floyd Bolton on 01-28-2023 WBC corrected for nucl RBC Auto (Bld) [#/Vol] 6.5 10*3/uL 4.1-10.5 [facility] Lymphocytes Auto (Bld) [#/Vo l]Ordered By: Floyd Bolton on 01-28-2023 Lymphocytes (Bld) [#/Vol] 1.0 10*3/uL 1.00-4.8 [facility] Lymphocytes/100 WBC Auto (Bl d)Ordered By: Floyd Bolton on 11-02-2023 Lymphocytes/100 WBC (Bld) 16.1 % . [facility] MCH Auto (RBC) [Entitic mass ]Ordered By: Floyd Bolton on 01-28-2023 MCH (RBC) [Entitic mass] 32.7 pg 27.5-35.2 [facility] MCHC Auto (RBC) [Mass/Vol]Or dered By: Floyd Bolton on 01-28-2023 MCHC (RBC) [Mass/Vol] 34.7 g/dL 32.5-35.6 [facility] MCV Auto (RBC) [Entitic vol] Ordered By: Floyd Bolton on 01-28-2023 MCV (RBC) [Entitic vol] 94.2 fL 83.5-101 [facility] Monocytes Auto (Bld) [#/Vol] Ordered By: Floyd Bolton on 01-28-2023 Monocytes (Bld) [#/Vol] 0.5 10*3/uL 0.0-0.8 [facility] Monocytes/100 WBC Auto (Bld) Ordered By: Floyd Bolton on 01-28-2023 Monocytes/100 WBC (Bld) 7.3 % . [facility] Neutrophils Auto (Bld) [#/Vo l]Ordered By: Floyd Bolton on 01-28-2023 Neutrophils (Bld) [#/Vol] 4.8 10*3/uL 1.8-7.7 [facility] Neutrophils/100 WBC Auto (Bl d)Ordered By: Floyd Bolton on 01-28-2023 Neutrophils/100 WBC (Bld) 73.8 % . [facility] No Panel InformationOrdered By: Floyd Bolton on 01-28-2023 Estimated GFR (CKD-EPI) > 60.0 mL/Min [facility] Creatinine Clearance (Chem N/A [facility] Nucleated erythrocytes [Pres ence] in Blood by Automated countOrdered By: Floyd Bolton on 01-28-2023 Nucleated RBC Auto Ql (Bld) 0.2 /100{WBC} 0-0.5 [facility] Platelet mean volume Auto (B ld) [Entitic vol]Ordered By: Floyd Bolton on 01-28-2023 Platelet mean volume (Bld) [Entitic vol] 9.6 fL 6.6-10.1 [facility] Platelets Auto (Bld) [#/Vol] Ordered By: Floyd Bolton on 01-28-2023 Platelets (Bld) [#/Vol] 212 10*3/uL 150-450 [facility] Potassium [Moles/volume] in Serum or PlasmaOrdered By: Floyd Bolton on 01-28-2023 Potassium [Moles/Vol] 4.2 mmol/L 3.5-5.1 [facility] Protein [Mass/volume] in Ser um or PlasmaOrdered By: Floyd Bolton on 01-28-2023 Protein [Mass/Vol] 6.0 g/dL 6.4-8.9 [facility] RBC Auto (Bld) [#/Vol]Ordere d By: Floyd Bolton on 01-28-2023 RBC (Bld) [#/Vol] 3.89 10*6/uL 3.90-5.60 [facility] Serum or plasma albumin/glob ulin mass ratioOrdered By: Floyd Bolton on 01-28-2023 Albumin/Globulin [Mass ratio] 1.6 {ratio} [facility] Serum or plasma anion gap de terminationOrdered By: Floyd Bolton on 01-28-2023 Anion gap [Moles/Vol] 11.5 mmol/L 6.0-15.0 [facility] Sodium [Moles/volume] in Ser um or PlasmaOrdered By: Floyd Bolton on 01-28-2023 Sodium [Moles/Vol] 141 mmol/L 136-145 [facility] Urea nitrogen [Mass/volume] in Serum or PlasmaOrdered By: Floyd Bolton on 01-28-2023 Urea nitrogen [Mass/Vol] 21 mg/dL 7-25 [facility] WBC Auto (Bld) [#/Vol]Ordere d By: Floyd Bolton on 01-28-2023 WBC (Bld) [#/Vol] 6.5 10*3/uL 4.1-10.5 [facility] Alanine aminotransferase [En zymatic activity/volume] in Serum or PlasmaOrdered By: Floyd Bolton on 2022 ALT [Catalytic activity/Vol] 18 U/L 7-52 [facility] Albumin [Mass/volume] in Ser um or Plasma by Bromocresol green (BCG) dye binding methoOrdered By: Floyd Bolton on 2022 Albumin BCG dye [Mass/Vol] 3.5 g/dL 3.5-5.7 [facility] Alkaline phosphatase [Enzyma tic activity/volume] in Serum or PlasmaOrdered By: Floyd Bolton on 2022 ALP [Catalytic activity/Vol] 50 U/L 34-104 [facility] Aspartate aminotransferase [ Enzymatic activity/volume] in Serum or PlasmaOrdered By: Floyd Bolton on 2022 AST [Catalytic activity/Vol] 19 U/L 13-39 [facility] Basophils Auto (Bld) [#/Vol] Ordered By: Floyd Bolton on 2022 Basophils (Bld) [#/Vol] 0.1 10*3/uL 0.0-0.2 [facility] Basophils/100 WBC Auto (Bld) Ordered By: Floyd Bolton on 2022 Basophils/100 WBC (Bld) 0.8 % . [facility] Bilirubin.total [Mass/volume ] in Serum or PlasmaOrdered By: Floyd Bolton on 2022 Bilirubin [Mass/Vol] 0.9 mg/dL 0.3-1.0 [facility] Calcium [Mass/volume] in Ser um or PlasmaOrdered By: Floyd Bolton on 2022 Calcium [Mass/Vol] 8.6 mg/dL 8.6-10.3 [facility] Carbon dioxide, total [Moles /volume] in Serum or PlasmaOrdered By: Floyd Bolton on 2022 CO2 [Moles/Vol] 22.3 mmol/L 21.0-31.0 [facility] Chloride [Moles/volume] in S paulo or PlasmaOrdered By: Floyd Bolton on 2022 Chloride [Moles/Vol] 108 mmol/L 98-107 [facility] Creatinine [Mass/volume] in Serum or PlasmaOrdered By: Floyd Bolton on 2022 Creatinine [Mass/Vol] 1.21 mg/dL 0.70-1.30 [facility] Eosinophils Auto (Bld) [#/Vo l]Ordered By: Floyd Bolton on 2022 Eosinophils (Bld) [#/Vol] 0.2 10*3/uL 0.0-0.45 [facility] Eosinophils/100 WBC Auto (Bl d)Ordered By: Floyd Bolton on 2022 Eosinophils/100 WBC (Bld) 2.0 % . [facility] Erythrocyte distribution wid th Auto (RBC) [Ratio]Ordered By: Floyd Bolton on 2022 Erythrocyte distribution width (RBC) [Ratio] 15.4 % 12.0-14.8 [facility] Erythrocyte sedimentation ra te by Photometric methodOrdered By: Floyd Bolton on 2022 ESR Photometric method (d) [Velocity] 31 mm/hr 0-19 [facility] Globulin Calc (S) [Mass/Vol] Ordered By: Floyd Bolton on 2022 Globulin (S) [Mass/Vol] 3.0 g/dL [facility] Glucose [Mass/volume] in Ser um or PlasmaOrdered By: Floyd Bolton on 2022 Glucose [Mass/Vol] 144 mg/dL 70-100 [facility] Comment on above: ADA recommended refe rence rangeRandom Glucose Reference Range is dependent on time and content of last meal. Glucose of more than 200 mg/dL in a nonstressed, ambulatory subject supports the diagnosis of Diabetes Mellitus. Hematocrit Auto (Bld) [Volum e fraction]Ordered By: Floyd Bolton on 2022 Hematocrit (Bld) [Volume fraction] 34.6 % 38.8-50.0 [facility] Hemoglobin [Mass/volume] in BloodOrdered By: Floyd Bolton on 2022 Hemoglobin (Bld) [Mass/Vol] 11.9 g/dL 13.0-17.0 [facility] Leukocytes [#/volume] correc liborio for nucleated erythrocytes in Blood by Automated counOrdered By: Floyd Bolton on 2022 WBC corrected for nucl RBC Auto (Bld) [#/Vol] 8.1 10*3/uL 4.1-10.5 [facility] Lymphocytes Auto (Bld) [#/Vo l]Ordered By: Floyd Bolton on 2022 Lymphocytes (Bld) [#/Vol] 0.9 10*3/uL 1.00-4.8 [facility] Lymphocytes/100 WBC Auto (Bl d)Ordered By: Floyd Bolton on 2022 Lymphocytes/100 WBC (Bld) 10.9 % . [facility] MCH Auto (RBC) [Entitic mass ]Ordered By: Floyd Bolton on 2022 MCH (RBC) [Entitic mass] 32.4 pg 27.5-35.2 [facility] MCHC Auto (RBC) [Mass/Vol]Or dered By: Floyd Bolton on 2022 MCHC (RBC) [Mass/Vol] 34.5 g/dL 32.5-35.6 [facility] MCV Auto (RBC) [Entitic vol] Ordered By: Floyd Bolton on 2022 MCV (RBC) [Entitic vol] 94.1 fL 83.5-101 [facility] Monocytes Auto (Bld) [#/Vol] Ordered By: Floyd Bolton on 2022 Monocytes (Bld) [#/Vol] 0.4 10*3/uL 0.0-0.8 [facility] Monocytes/100 WBC Auto (Bld) Ordered By: Floyd Bolton on 2022 Monocytes/100 WBC (Bld) 5.3 % . [facility] Neutrophils Auto (Bld) [#/Vo l]Ordered By: Floyd Bolton on 2022 Neutrophils (Bld) [#/Vol] 6.6 10*3/uL 1.8-7.7 [facility] Neutrophils/100 WBC Auto (Bl d)Ordered By: Floyd Bolton on 2022 Neutrophils/100 WBC (Bld) 81.0 % . [facility] No Panel InformationOrdered By: Floyd Bolton on 07-12-2023 Estimated GFR (CKD-EPI) > 60.0 mL/Min [facility] Creatinine Clearance (Chem N/A [facility] Nucleated erythrocytes [Pres ence] in Blood by Automated countOrdered By: Floyd Bolton on 2022 Nucleated RBC Auto Ql (Bld) 0.1 /100{WBC} 0-0.5 [facility] Platelet mean volume Auto (B ld) [Entitic vol]Ordered By: Floyd Bolton on 2022 Platelet mean volume (Bld) [Entitic vol] 9.0 fL 6.6-10.1 [facility] Platelets Auto (Bld) [#/Vol] Ordered By: Floyd Bolton on 2022 Platelets (Bld) [#/Vol] 190 10*3/uL 150-450 [facility] Potassium [Moles/volume] in Serum or PlasmaOrdered By: Floyd Bolton on 2022 Potassium [Moles/Vol] 3.9 mmol/L 3.5-5.1 [facility] Protein [Mass/volume] in Ser um or PlasmaOrdered By: Floyd Bolton on 2022 Protein [Mass/Vol] 6.5 g/dL 6.4-8.9 [facility] RBC Auto (Bld) [#/Vol]Ordere d By: Floyd Bolton on 2022 RBC (Bld) [#/Vol] 3.67 10*6/uL 3.90-5.60 [facility] Serum or plasma albumin/glob ulin mass ratioOrdered By: Floyd Bolton on 2022 Albumin/Globulin [Mass ratio] 1.2 {ratio} [facility] Serum or plasma anion gap de terminationOrdered By: Floyd Bolton on 2022 Anion gap [Moles/Vol] 11.6 mmol/L 6.0-15.0 [facility] Sodium [Moles/volume] in Ser um or PlasmaOrdered By: Floyd Bolton on 2022 Sodium [Moles/Vol] 138 mmol/L 136-145 [facility] Urea nitrogen [Mass/volume] in Serum or PlasmaOrdered By: Floyd Bolton on 2022 Urea nitrogen [Mass/Vol] 17 mg/dL 7- [facility] WBC Auto (Bld) [#/Vol]Ordere d By: Floyd Bolton on 2022 WBC (Bld) [#/Vol] 8.1 10*3/uL 4.1-10.5 [facility] Ambulatory Visit Summaryon 0 07-21-2022 Ambulatory Visit Summary SHAHID SANCHEZ :1940 Visit Date:07/21/2022 Ambulatory Visit Instructions Your Care Team Attending Physician - MARGARITA CABRERA, Yovayn Lopez Primary Care Physician - AL RAYMUNDO JR, DO This Is Your Medications List apixaban (Eliquis 5 mg oral tablet) cholecalciferol (Vitamin D3 2000 intl units) colesevelam (Welchol 625 mg Tab) cyanocobalamin (Vitamin B12 100 mcg oral tablet) dapagliflozin (Farxiga 10 mg oral tablet) dutasteride (Avodart 0.5 mg Cap) finerenone (Kerendia 20 mg oral tablet) folic acid infliximab (Remicade) ipratropium nasal (Atrovent 0.03% Cove) levothyroxine (Synthroid 50 mcg Tab) metformin (metformin [...] as directed Unchanged ipratropium nasal (Atrovent 0.03% Cove) 2 Sprays Nasal Inhalation 3 times a [...] HTN (hypertension) Hypercholesteremia Hypothyroidism Immunosuppression 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 Medications Atrovent 0.03% Cove, 2 spray(s), Nasal, TID Avodart 0.5 mg [...] Brother. Immunizations Vaccine Date Status SARS-CoV-2 (COVID-19) [id number] 03/03/2022 Recorded influenza virus vaccine, inactivated 12/2021 Recorded SARS-CoV-2 (COVID-19) mRNA-1273 vaccine 06/11/2021 Recorded SARS-CoV-2 (COVID-19) mRNA BNT-162b2 vax 02/06/2021 Recorded SARS-CoV-2 (COVID-19) mRNA BNT-162b2 vax 06/14/2020 Recorded SARS-CoV-2 (COVID-19) mRNA BNT-162b2 vax 05/24/2020 Recorded Normal [facility] Comment on above: Result Comment: Elec tronically Signed By: MARGARITA CABRERA, Yovany Figueredo\Date and Time Signed: 07/21/22 14:14 EDT Reminderson 07-21-2022 Reminders - From: Sarah Patel LPN To: N - Clinical; Sent: 07/21/2022 14:00:46 EDT Show up: 06/08/2027 07:00:00 EDT Subject: colonoscopy recall Due Date/Time: 07/09/2027 07:00:00 EDT Reminder/Recall Patient due for colonoscopy 07/09/2027. Normal [facility] Pathology Noteon 07-13-2022 Pathology Note [id number]:12 7 Normal [facility] Outside Colonoscopyon 2022 Outside Colonoscopy [id number]:12 7 Normal [facility] POINT OF CARE GLUCOSEon 06-27 Glucose [Mass/Vol] 133 mg/dL Critically high 74-106 T [facility] Comment on above: Performed By: #### P OCGLUC ####[facility] [address] [place], [place] [address]YvDorcas Rudd Lab Reportson 07-03-2022 Lab Reports [id number]:12 7 Normal [facility] Alanine aminotransferase [En zymatic activity/volume] in Serum or PlasmaOrdered By: Floyd Bolton on 06-16-2022 ALT [Catalytic activity/Vol] 38 U/L 7-52 [facility] Albumin [Mass/volume] in Ser um or Plasma by Bromocresol green (BCG) dye binding methoOrdered By: Floyd Bolton on 06-16-2022 Albumin BCG dye [Mass/Vol] 3.9 g/dL 3.5-5.7 [facility] Alkaline phosphatase [Enzyma tic activity/volume] in Serum or PlasmaOrdered By: Floyd Bolton on 06-16-2022 ALP [Catalytic activity/Vol] 53 U/L 34-104 [facility] Aspartate aminotransferase [ Enzymatic activity/volume] in Serum or PlasmaOrdered By: Floyd Bolton on 06-16-2022 AST [Catalytic activity/Vol] 33 U/L 13-39 [facility] Basophils Auto (Bld) [#/Vol] Ordered By: Floyd Bolton on 06-16-2022 Basophils (Bld) [#/Vol] 0.1 10*3/uL 0.0-0.2 [facility] Basophils/100 WBC Auto (Bld) Ordered By: Floyd Bolton on 06-16-2022 Basophils/100 WBC (Bld) 0.9 % . [facility] Bilirubin.total [Mass/volume ] in Serum or PlasmaOrdered By: Floyd Bolton on 06-16-2022 Bilirubin [Mass/Vol] 0.8 mg/dL 0.3-1.0 [facility] Calcium [Mass/volume] in Ser um or PlasmaOrdered By: Floyd Bolton on 06-16-2022 Calcium [Mass/Vol] 9.1 mg/dL 8.6-10.3 [facility] Carbon dioxide, total [Moles /volume] in Serum or PlasmaOrdered By: Floyd Bolton on 06-16-2022 CO2 [Moles/Vol] 23.6 mmol/L 21.0-31.0 [facility] Chloride [Moles/volume] in S paulo or PlasmaOrdered By: Floyd Bolton on 06-16-2022 Chloride [Moles/Vol] 107 mmol/L 98-107 [facility] Creatinine [Mass/volume] in Serum or PlasmaOrdered By: Floyd Bolton on 06-16-2022 Creatinine [Mass/Vol] 1.28 mg/dL 0.70-1.30 [facility] Eosinophils Auto (Bld) [#/Vo l]Ordered By: Floyd Bolton on 06-16-2022 Eosinophils (Bld) [#/Vol] 0.2 10*3/uL 0.0-0.45 [facility] Eosinophils/100 WBC Auto (Bl d)Ordered By: Floyd Bolton on 06-16-2022 Eosinophils/100 WBC (Bld) 2.4 % . [facility] Erythrocyte distribution wid th Auto (RBC) [Ratio]Ordered By: Floyd Bolton on 06-16-2022 Erythrocyte distribution width (RBC) [Ratio] 15.8 % 12.0-14.8 [facility] Erythrocyte sedimentation ra te by Photometric methodOrdered By: Floyd Bolton on 06-16-2022 ESR Photometric method (Bld) [Velocity] 22 mm/hr 0-19 [facility] Globulin Calc (S) [Mass/Vol] Ordered By: Floyd Bolton on 06-16-2022 Globulin (S) [Mass/Vol] 2.7 g/dL [facility] Glucose [Mass/volume] in Ser um or PlasmaOrdered By: Floyd Bolton on 06-16-2022 Glucose [Mass/Vol] 133 mg/dL 74-109 [facility] Comment on above: ADA recommended refe rence rangeRandom Glucose Reference Range is dependent on time and content of last meal. Glucose of more than 200 mg/dL in a nonstressed, ambulatory subject supports the diagnosis of Diabetes Mellitus. Hematocrit Auto (Bld) [Volum e fraction]Ordered By: Floyd Bolton on 06-16-2022 Hematocrit (Bld) [Volume fraction] 37.5 % 38.8-50.0 [facility] Hemoglobin [Mass/volume] in BloodOrdered By: Floyd Bolton on 06-16-2022 Hemoglobin (Bld) [Mass/Vol] 12.9 g/dL 13.0-17.0 [facility] Laboratory - Chemistry and C hemistry - challengeOrdered By: Floyd Bolton on 06-16-2022 GFR/1.73 sq M.predicted MDRD (S/P/Bld) [Vol rate/Area] 56.578 mL/min/{1.73_m2} [facility] Leukocytes [#/volume] correc liborio for nucleated erythrocytes in Blood by Automated counOrdered By: Floyd Bolton on 06-16-2022 WBC corrected for nucl RBC Auto (Bld) [#/Vol] 6.6 10*3/uL 4.1-10.5 [facility] Lymphocytes Auto (Bld) [#/Vo l]Ordered By: Floyd Bolton on 06-16-2022 Lymphocytes (Bld) [#/Vol] 1.1 10*3/uL 1.00-4.8 [facility] Lymphocytes/100 WBC Auto (Bl d)Ordered By: Floyd Bolton on 06-16-2022 Lymphocytes/100 WBC (Bld) 17.0 % . [facility] MCH Auto (RBC) [Entitic mass ]Ordered By: Floyd Bolton on 06-16-2022 MCH (RBC) [Entitic mass] 33.2 pg 27.5-35.2 [facility] MCHC Auto (RBC) [Mass/Vol]Or dered By: Floyd Bolton on 06-16-2022 MCHC (RBC) [Mass/Vol] 34.4 g/dL 32.5-35.6 [facility] MCV Auto (RBC) [Entitic vol] Ordered By: Folyd Bolton on 06-16-2022 MCV (RBC) [Entitic vol] 96.3 fL 83.5-101 [facility] Monocytes Auto (Bld) [#/Vol] Ordered By: Floyd Bolton on 06-16-2022 Monocytes (Bld) [#/Vol] 0.7 10*3/uL 0.0-0.8 [facility] Monocytes/100 WBC Auto (Bld) Ordered By: Floyd Bolton on 06-16-2022 Monocytes/100 WBC (Bld) 10.1 % . [facility] Neutrophils Auto (Bld) [#/Vo l]Ordered By: Floyd Bolton on 06-16-2022 Neutrophils (Bld) [#/Vol] 4.6 10*3/uL 1.8-7.7 [facility] Neutrophils/100 WBC Auto (Bl d)Ordered By: Floyd Bolton on 06-16-2022 Neutrophils/100 WBC (Bld) 69.6 % . [facility] No Panel InformationOrdered By: Floyd Bolton on 06-16-2022 Pharmacy Creatinine Clearance (Chem N/A [facility] Nucleated erythrocytes [Pres ence] in Blood by Automated countOrdered By: Floyd Bolton on 06-16-2022 Nucleated RBC Auto Ql (Bld) 0.1 /100{WBC} 0-0.5 [facility] Platelet mean volume Auto (B ld) [Entitic vol]Ordered By: Floyd Bolton on 06-16-2022 Platelet mean volume (Bld) [Entitic vol] 9.0 fL 6.6-10.1 [facility] Platelets Auto (Bld) [#/Vol] Ordered By: Floyd Bolton on 06-16-2022 Platelets (Bld) [#/Vol] 211 10*3/uL 150-450 [facility] Potassium [Moles/volume] in Serum or PlasmaOrdered By: Floyd Bolton on 06-16-2022 Potassium [Moles/Vol] 4.3 mmol/L 3.5-5.1 [facility] Protein [Mass/volume] in Ser um or PlasmaOrdered By: Floyd Bolton on 06-16-2022 Protein [Mass/Vol] 6.6 g/dL 6.4-8.9 [facility] RBC Auto (Bld) [#/Vol]Ordere d By: Floyd Bolton on 06-16-2022 RBC (Bld) [#/Vol] 3.90 10*6/uL 3.90-5.60 [facility] Serum or plasma albumin/glob ulin mass ratioOrdered By: Floyd Bolton on 06-16-2022 Albumin/Globulin [Mass ratio] 1.4 {ratio} [facility] Serum or plasma anion gap de terminationOrdered By: Floyd Bolton on 06-16-2022 Anion gap [Moles/Vol] 11.7 mmol/L 6.0-15.0 [facility] Sodium [Moles/volume] in Ser um or PlasmaOrdered By: Floyd Bolton on 06-16-2022 Sodium [Moles/Vol] 138 mmol/L 136-145 [facility] Urea nitrogen [Mass/volume] in Serum or PlasmaOrdered By: Floyd Bolton on 06-16-2022 Urea nitrogen [Mass/Vol] 21 mg/dL 7-25 [facility] WBC Auto (Bld) [#/Vol]Ordere d By: Floyd Bolton on 06-16-2022 WBC (Bld) [#/Vol] 6.6 10*3/uL 4.1-10.5 [facility] Physician Referralon 023 Physician Referral [id number]:12 7 [facility] Consent for Procedure/Surger yon 06-04-2022 Consent for Procedure/Surgery [id number]:12 7 Normal [facility] Facesheeton 06-04-2022 Facesheet [id number]:12 7 [facility] Ambulatory Visit Summaryon 0 06-03-2022 Ambulatory Visit [...] acid infliximab (Remicade) ipratropium nasal (Atrovent 0.03% Cove) levothyroxine (Synthroid 50 mcg Tab) metformin (metformin [...] or concerns Unchanged ipratropium nasal (Atrovent 0.03% Cove) 2 Sprays Nasal Inhalation 3 times a [...] HTN (hypertension) Hypercholesteremia Hypothyroidism Immunosuppression 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:12 7 Normal [facility] Basophils Auto (Bld) [#/Vol] Ordered By: Floyd Bolton on 04-21-2022 Basophils (Bld) [#/Vol] 0.1 10*3/uL 0.0-0.2 [facility] Basophils/100 WBC Auto (Bld) Ordered By: Floyd Bolton on 04-21-2022 Basophils/100 WBC (Bld) 0.9 % . [facility] Body fluid albumin measureme nt (mass/volume)Ordered By: Floyd Bolton on 04-21-2022 Albumin (Body fld) [Mass/Vol] 3.4 g/dL 3.2-5.5 [facility] Creatinine and Glomerular fi ltration rate.predicted panel (S/P/Bld)Ordered By: Floyd Bolton on 04-21-2022 Creatinine [Mass/Vol] 1.12 mg/dL 0.64-1.27 [facility] Eosinophils Auto (Bld) [#/Vo l]Ordered By: Floyd Bolton on 04-21-2022 Eosinophils (Bld) [#/Vol] 0.2 10*3/uL 0.0-0.45 [facility] Eosinophils/100 WBC Auto (Bl d)Ordered By: Floyd Bolton on 04-21-2022 Eosinophils/100 WBC (Bld) 2.8 % . [facility] Erythrocyte distribution wid th Auto (RBC) [Ratio]Ordered By: Floyd Bolton on 04-21-2022 Erythrocyte distribution width (RBC) [Ratio] 16.1 % 12.0-14.8 [facility] Erythrocyte sedimentation ra te by Photometric methodOrdered By: Floyd Bolton on 04-21-2022 ESR Photometric method (Bld) [Velocity] 25 mm/hr 0-19 [facility] Estimated glomerular filtrat ion rate (GFR) non- AmericanOrdered By: Floyd Bolton on 04-21-2022 GFR/1.73 sq M.predicted among non-blacks MDRD (S/P/Bld) [Vol rate/Area] > 60 mL/Min [facility] Globulin Calc (S) [Mass/Vol] Ordered By: Floyd Bolton on 04-21-2022 Globulin (S) [Mass/Vol] 3.2 g/dL [facility] Hematocrit Auto (Bld) [Volum e fraction]Ordered By: Floyd Bolton on 04-21-2022 Hematocrit (Bld) [Volume fraction] 36.1 % 38.8-50.0 [facility] Hemoglobin [Mass/volume] in BloodOrdered By: Floyd Bolton on 04-21-2022 Hemoglobin (Bld) [Mass/Vol] 12.2 g/dL 13.0-17.0 [facility] Leukocytes [#/volume] correc liborio for nucleated erythrocytes in Blood by Automated counOrdered By: Floyd Bolton on 04-21-2022 WBC corrected for nucl RBC Auto (Bld) [#/Vol] 6.6 10*3/uL 4.1-10.5 [facility] Lymphocytes Auto (Bld) [#/Vo l]Ordered By: Floyd Bolton on 04-21-2022 Lymphocytes (Bld) [#/Vol] 1.3 10*3/uL 1.00-4.8 [facility] Lymphocytes/100 WBC Auto (Bl d)Ordered By: Floyd Bolton on 04-21-2022 Lymphocytes/100 WBC (Bld) 20.5 % . [facility] MCH Auto (RBC) [Entitic mass ]Ordered By: Floyd Bolton on 04-21-2022 MCH (RBC) [Entitic mass] 32.5 pg 27.5-35.2 [facility] MCHC Auto (RBC) [Mass/Vol]Or dered By: Floyd Bolton on 04-21-2022 MCHC (RBC) [Mass/Vol] 33.8 g/dL 32.5-35.6 [facility] MCV Auto (RBC) [Entitic vol] Ordered By: Floyd Bolton on 04-21-2022 MCV (RBC) [Entitic vol] 96.4 fL 83.5-101 [facility] Monocytes Auto (Bld) [#/Vol] Ordered By: Floyd Bolton on 04-21-2022 Monocytes (Bld) [#/Vol] 0.4 10*3/uL 0.0-0.8 [facility] Monocytes/100 WBC Auto (Bld) Ordered By: Floyd Bolton on 04-21-2022 Monocytes/100 WBC (Bld) 6.0 % . [facility] Neutrophils Auto (Bld) [#/Vo l]Ordered By: Floyd Bolton on 04-21-2022 Neutrophils (Bld) [#/Vol] 4.6 10*3/uL 1.8-7.7 [facility] Neutrophils/100 WBC Auto (Bl d)Ordered By: Floyd Bolton on 04-21-2022 Neutrophils/100 WBC (Bld) 69.8 % . [facility] No Panel InformationOrdered By: Floyd Bolton on 04-21-2022 Estimated GFR () > 60 mL/Min [facility] Comment on above: GFR estimated refere nce range: According to KDOQI guidelines, <60 ml/min/1.73m2 is sufficient to diagnose a patient with chronic kidney disease. Pharmacy Creatinine Clearance (Chem N/A [facility] Nucleated erythrocytes [Pres ence] in Blood by Automated countOrdered By: Floyd Bolton on 04-21-2022 Nucleated RBC Auto Ql (Bld) 0.1 /100{WBC} 0-0.5 [facility] Platelet mean volume Auto (B ld) [Entitic vol]Ordered By: Floyd Bolton on 04-21-2022 Platelet mean volume (Bld) [Entitic vol] 9.2 fL 6.6-10.1 [facility] Platelets Auto (Bld) [#/Vol] Ordered By: Floyd Bolton on 04-21-2022 Platelets (Bld) [#/Vol] 202 10*3/uL 150-450 [facility] Protein [Mass/volume] in Ser um or PlasmaOrdered By: Floyd Bolton on 04-21-2022 Protein [Mass/Vol] 6.6 g/dL 6.1-7.9 [facility] RBC Auto (Bld) [#/Vol]Ordere d By: Floyd Bolton on 04-21-2022 RBC (Bld) [#/Vol] 3.74 10*6/uL 3.90-5.60 [facility] Serum or plasma alanine cortez otransferase measurement without P-5'-P (enzymatic activiOrdered By: Floyd Bolton on 04-21-2022 ALT No additional P-5'-P [Catalytic activity/Vol] 68 U/L 10-60 [facility] Serum or plasma albumin/glob ulin mass ratioOrdered By: Floyd Bolton on 04-21-2022 Albumin/Globulin [Mass ratio] 1.1 {ratio} [facility] Serum or plasma alkaline cm sphatase measurement (enzymatic activity/volume)Ordered By: Floyd Bolton on 04-21-2022 ALP [Catalytic activity/Vol] 45 U/L 32-92 [facility] Serum or plasma anion gap de terminationOrdered By: Floyd Bolton on 04-21-2022 Anion gap [Moles/Vol] 13.3 mmol/L 6.0-15.0 [facility] Serum or plasma aspartate am inotransferase measurement (enzymatic activity/volume)Ordered By: Floyd Bolton on 04-21-2022 AST [Catalytic activity/Vol] 64 U/L 10-42 [facility] Serum or plasma calcium wong urement (mass/volume)Ordered By: Floyd Bolton on 04-21-2022 Calcium [Mass/Vol] 9.1 mg/dL 8.2-10.2 [facility] Serum or plasma chloride fan surement (moles/volume)Ordered By: Floyd Bolton on 04-21-2022 Chloride [Moles/Vol] 105 mmol/L 95-114 [facility] Serum or plasma glucose wong urement (mass/volume)Ordered By: Floyd Bolton on 04-21-2022 Glucose [Mass/Vol] 165 mg/dL 70-100 [facility] Comment on above: ADA recommended refe rence rangeRandom Glucose Reference Range is dependent on time and content of last meal. Glucose of more than 200 mg/dL in a nonstressed, ambulatory subject supports the diagnosis of Diabetes Mellitus. Serum or plasma potassium me asurement (moles/volume)Ordered By: Floyd Bolton on 04-21-2022 Potassium [Moles/Vol] 4.1 mmol/L 3.5-5.1 [facility] Serum or plasma sodium measu rement (moles/volume)Ordered By: Floyd Bolton on 04-21-2022 Sodium [Moles/Vol] 135 mmol/L 136-146 [facility] Serum or plasma total biliru bin measurement (mass/volume)Ordered By: Floyd Bolton on 04-21-2022 Bilirubin [Mass/Vol] 0.7 mg/dL 0.3-1.2 [facility] Serum or plasma total carbon dioxide measurement (moles/volume)Ordered By: Floyd Bolton on 04-21-2022 CO2 [Moles/Vol] 20.8 mmol/L 22.0-30.0 [facility] Serum or plasma urea nitroge n measurement (mass/volume)Ordered By: Floyd Bolton on 04-21-2022 Urea nitrogen [Mass/Vol] 14 mg/dL 9 [facility] WBC Auto (Bld) [#/Vol]Ordere d By: Floyd Bolton on 04-21-2022 WBC (Bld) [#/Vol] 6.6 10*3/uL 4.1-10.5 [facility] Albumin [Mass/volume] in Ser um or PlasmaOrdered By: Floyd Bolton on 12-09-2021 Albumin [Mass/Vol] 3.0 g/dL 3.2-5.5 [facility] Basophils Auto (Bld) [#/Vol] Ordered By: Floyd Bolton on 12-09-2021 Basophils (Bld) [#/Vol] 0.0 10*3/uL 0.0-0.2 [facility] Basophils/100 WBC Auto (Bld) Ordered By: Floyd Bolton on 12-09-2021 Basophils/100 WBC (Bld) 0.3 % . [facility] Blood hemoglobin measurement (mass/volume)Ordered By: Floyd Bolton on 12-09-2021 Hemoglobin (Bld) [Mass/Vol] 12.7 g/dL 13.0-17.0 [facility] Blood leukocytes automated c ount (number/volume)Ordered By: Floyd Bolton on 12-09-2021 WBC (Bld) [#/Vol] 4.9 10*3/uL 4.5-11.0 [facility] Creatinine and Glomerular fi ltration rate.predicted panel (S/P/Bld)Ordered By: Floyd Bolton on 12-09-2021 Creatinine [Mass/Vol] 1.27 mg/dL 0.64-1.27 [facility] Eosinophils Auto (Bld) [#/Vo l]Ordered By: Floyd Bolton on 12-09-2021 Eosinophils (Bld) [#/Vol] 0.1 10*3/uL 0.0-0.45 [facility] Eosinophils/100 WBC Auto (Bl d)Ordered By: Floyd Bolton on 12-09-2021 Eosinophils/100 WBC (Bld) 2.7 % . [facility] Erythrocyte distribution wid th Auto (RBC) [Ratio]Ordered By: Floyd Bolton on 12-09-2021 Erythrocyte distribution width (RBC) [Ratio] 16.5 % 12.0-14.8 [facility] Erythrocyte sedimentation ra te by Photometric methodOrdered By: Floyd Bolton on 12-09-2021 ESR Photometric method (d) [Velocity] 23 mm/hr 0-19 [facility] Estimated glomerular filtrat ion rate (GFR) non- AmericanOrdered By: Floyd Bolton on 12-09-2021 GFR/1.73 sq M.predicted among non-blacks MDRD (S/P/Bld) [Vol rate/Area] 55 mL/Min [facility] Globulin Calc (S) [Mass/Vol] Ordered By: Floyd Bolton on 12-09-2021 Globulin (S) [Mass/Vol] 3.1 g/dL [facility] Hematocrit Auto (Bld) [Volum e fraction]Ordered By: Floyd Bolton on 12-09-2021 Hematocrit (Bld) [Volume fraction] 37.2 % 38.8-50.0 [facility] Laboratory - Hematology and Cell countsOrdered By: Floyd Bolton on 12-09-2021 Nucleated RBC/100 WBC (Bld) [Ratio] 0.1 % 0-0.5 [facility] Lymphocytes Auto (Bld) [#/Vo l]Ordered By: Floyd Bolton on 12-09-2021 Lymphocytes (Bld) [#/Vol] 0.8 10*3/uL 1.00-4.8 [facility] Lymphocytes/100 WBC Auto (Bl d)Ordered By: Floyd Bolton on 12-09-2021 Lymphocytes/100 WBC (Bld) 16.5 % . [facility] MCH Auto (RBC) [Entitic mass ]Ordered By: Floyd Bolton on 12-09-2021 MCH (RBC) [Entitic mass] 32.3 pg 27.5-35.2 [facility] MCHC Auto (RBC) [Mass/Vol]Or dered By: Floyd Bolton on 12-09-2021 MCHC (RBC) [Mass/Vol] 34.0 g/dL 32.5-35.6 [facility] MCV Auto (RBC) [Entitic vol] Ordered By: Floyd Bolton on 12-09-2021 MCV (RBC) [Entitic vol] 94.9 fL 83.5-101 [facility] Monocytes Auto (Bld) [#/Vol] Ordered By: Floyd Bolton on 12-09-2021 Monocytes (Bld) [#/Vol] 0.6 10*3/uL 0.0-0.8 [facility] Monocytes/100 WBC Auto (Bld) Ordered By: Floyd Bolton on 12-09-2021 Monocytes/100 WBC (Bld) 11.6 % . [facility] Neutrophils Auto (Bld) [#/Vo l]Ordered By: Floyd Bolton on 12-09-2021 Neutrophils (Bld) [#/Vol] 3.4 10*3/uL 1.8-7.7 [facility] Neutrophils/100 WBC Auto (Bl d)Ordered By: Floyd Bolton on 12-09-2021 Neutrophils/100 WBC (Bld) 68.9 % . [facility] No Panel InformationOrdered By: Floyd Bolton on 12-09-2021 Estimated GFR () > 60 mL/Min [facility] Comment on above: GFR estimated refere nce range: According to KDOQI guidelines, <60 ml/min/1.73m2 is sufficient to diagnose a patient with chronic kidney disease. Pharmacy Creatinine Clearance (Chem N/A [facility] Platelet mean volume Auto (B ld) [Entitic vol]Ordered By: Floyd Bolton on 12-09-2021 Platelet mean volume (Bld) [Entitic vol] 8.9 fL 6.6-10.1 [facility] Platelets Auto (Bld) [#/Vol] Ordered By: Floyd Bolton on 12-09-2021 Platelets (Bld) [#/Vol] 181 10*3/uL 150-450 [facility] Protein [Mass/volume] in Ser um or PlasmaOrdered By: Floyd Bolton on 12-09-2021 Protein [Mass/Vol] 6.1 g/dL 6.1-7.9 [facility] RBC Auto (Bld) [#/Vol]Ordere d By: Floyd Bolton on 12-09-2021 RBC (Bld) [#/Vol] 3.92 10*6/uL 3.90-5.60 [facility] Serum or plasma alanine cortez otransferase measurement without P-5'-P (enzymatic activiOrdered By: Floyd Bolton on 12-09-2021 ALT No additional P-5'-P [Catalytic activity/Vol] 16 U/L 10-60 [facility] Serum or plasma albumin/glob ulin mass ratioOrdered By: Floyd Bolton on 12-09-2021 Albumin/Globulin [Mass ratio] 1.0 {ratio} [facility] Serum or plasma alkaline cm sphatase measurement (enzymatic activity/volume)Ordered By: Floyd Bolton on 12-09-2021 ALP [Catalytic activity/Vol] 48 U/L 32-92 [facility] Serum or plasma anion gap de terminationOrdered By: Floyd Bolton on 12-09-2021 Anion gap [Moles/Vol] 15.9 mmol/L 6.0-15.0 [facility] Serum or plasma aspartate am inotransferase measurement (enzymatic activity/volume)Ordered By: Floyd Bolton on 12-09-2021 AST [Catalytic activity/Vol] 20 U/L 10-42 [facility] Serum or plasma calcium wong urement (mass/volume)Ordered By: Floyd Bolton on 12-09-2021 Calcium [Mass/Vol] 9.1 mg/dL 8.2-10.2 [facility] [facility] Serum or plasma chloride fan surement (moles/volume)Ordered By: Floyd Bolton on 12-09-2021 Chloride [Moles/Vol] 104 mmol/L 95-114 [facility] Serum or plasma glucose wong urement (mass/volume)Ordered By: Floyd Bolton on 09-13-2022 Glucose [Mass/Vol] 162 mg/dL 70-100 [facility] Comment on above: ADA recommended refe rence range Random Glucose Reference Range is dependent on time and content of last meal. Glucose of more than 200 mg/dL in a nonstressed, ambulatory subject supports the diagnosis of Diabetes Mellitus. Serum or plasma potassium me asurement (moles/volume)Ordered By: Floyd Bolton on 12-09-2021 Potassium [Moles/Vol] 4.0 mmol/L 3.5-5.1 [facility] Serum or plasma sodium measu rement (moles/volume)Ordered By: Floyd Bolton on 12-09-2021 Sodium [Moles/Vol] 136 mmol/L 136-146 [facility] Serum or plasma total biliru bin measurement (mass/volume)Ordered By: Floyd Bolton on 12-09-2021 Bilirubin [Mass/Vol] 1.2 mg/dL 0.3-1.2 [facility] Serum or plasma total carbon dioxide measurement (moles/volume)Ordered By: Floyd Botlon on 12-09-2021 CO2 [Moles/Vol] 20.1 mmol/L 22.0-30.0 [facility] Serum or plasma urea nitroge n measurement (mass/volume)Ordered By: Floyd Bolton on 12-09-2021 Urea nitrogen [Mass/Vol] 23 mg/dL - [facility] BNPon 10-22-2021 Natriuretic peptide B (Bld) [Mass/Vol] 4537.0 pg/mL Critically high <=1,800.0 [facility] Comment on above: Performed By: #### C MADM, CRP, BNP, CMP #### [facility] [address] [address] [address] Thomas Rudd CARDIAC JOHANNY ADMITon 022 CK [Catalytic activity/Vol] 76 U/L Normal 39-308 [facility] Comment on above: Performed By: #### C MADM, CRP, BNP, CMP #### [facility] [address] [place], [place] [address] Dr. Thomas Rudd CK.MB [Mass/Vol] 0.66 ng/mL Normal <=3.60 [facility] Comment on above: Performed By: #### C MADM, CRP, BNP, CMP #### [facility] [address] [address] [address] Thomas Rudd HSTROP 22.8 pg/mL Normal 4.0-76.1 [facility] Comment on above: Result Comment: CUT- OFF POINTS HAVE BEEN ESTABLISHED BASED ON THE FOURTH UNIVERSAL DEFINITIONS OF MYOCARDIAL INFARCTION. THE UPPER REFERENCE LIMIT (URL) OF TROPONIN, DEFINED THE 99TH PERCENTILE OF cTnI DISTRIBUTION IN A REFERENCE POPULATION, HAS BEEN CONFIRMED THE DECISION THRESHOLD FOR [place] DIAGNOSIS. Performed By: #### C MADM, CRP, BNP, CMP #### [facility] [address] [address] [address] Thomas Rudd LUCY 184 ng/mL Critically high 16-96 [facility] Comment on above: Performed By: #### C MADM, CRP, BNP, CMP #### [facility] [address] [address] [address] Thomas Rudd CBC AUTO DIFFon 10-22-2021 BASO # 0.0 103/ul Normal 0.0-0.1 [facility] Comment on above: Performed By: #### C BC ####[facility] [address] [address]DrDorcas Rudd Basophils/100 WBC (Bld) 0.1 % Critically low 0.2-2.0 [facility] Comment on above: Performed By: #### C BC ####[facility] [address] [address]Dr. Thomas Rudd EO # 0.0 103/ul Normal 0.0-0.7 [facility] Comment on above: Performed By: #### C BC ####[facility] [address] [address]Dr. Thomas Rudd Eosinophils/100 WBC (Bld) 0.0 % Critically low 0.9-7.0 [facility] Comment on above: Performed By: #### C BC ####[facility] [address] [address]Dr. Thomas Rudd Erythrocyte distribution width (RBC) [Ratio] 15.9 % Critically high 11.0-15.0 [facility] Comment on above: Performed By: #### C BC ####[facility] [address] [address]DrDorcas Rudd Hematocrit (Bld) [Volume fraction] 34.8 % Critically low 42.0-54.0 [facility] Comment on above: Performed By: #### C BC ####[facility] [address] [place], [place] [address]DrDorcas Rudd Hemoglobin (Bld) [Mass/Vol] 12.0 g/dL Critically low 14.0-18.0 [facility] Comment on above: Performed By: #### C BC ####[facility] [address] [place], [place] [address]DrDorcas Rudd IG # 0.15 10e3/ul Critically high 0.00-0.03 [facility] Comment on above: Performed By: #### C BC ####[facility] [address] [place], [place] [address]DrDorcas Rudd IG % 0.9 % Critically high 0.0-0.5 [facility] Comment on above: Performed By: #### C BC ####[facility] [address] [place], [place] [address]DrDorcas Rudd LYMPH # 0.9 103/ul Critically low 1.2-3.8 [facility] Comment on above: Performed By: #### C BC ####[facility] [address] [place], [place] [address]DrDorcas Rudd Lymphocytes/100 WBC (Bld) 5.7 % Critically low 20.5-60.0 [facility] Comment on above: Performed By: #### C BC ####[facility] [address] [place], [place] [address]DrDorcas Rudd MANUAL DIFF REQ NO Normal [facility] Comment on above: Performed By: #### C BC ####[facility] [address] [place], [place] [address]DrDorcas Rudd MCH (RBC) [Entitic mass] 32.4 pg Normal 25.9-34.0 [facility] Comment on above: Performed By: #### C BC ####[facility] [address] [address]DrDorcas Rudd MCHC (RBC) [Mass/Vol] 34.5 g/dL Normal 29.9-35.2 [facility] Comment on above: Performed By: #### C BC ####[facility] [address] [address]DrDorcas Rudd MCV (RBC) [Entitic vol] 94.1 fL Critically high 80.0-94.0 [facility] Comment on above: Performed By: #### C BC ####[facility] [address] [place], [place] [address]DrDorcas Rudd MONO # 1.4 103/ul Critically high 0.3-0.8 [facility] Comment on above: Performed By: #### C BC ####[facility] [address] [place], [place] [address]DrDorcas Rudd Monocytes/100 WBC (Bld) 8.6 % Normal 1.7-12.0 [facility] Comment on above: Performed By: #### C BC ####[facility] [address] [place], [place] [address]DrDorcas Rudd NEUT # 13.6 103/ul Critically high 1.4-6.5 [facility] Comment on above: Performed By: #### C BC ####[facility] [address] [place], [place] [address]DrDorcas Rudd Neutrophils/100 WBC (Bld) 84.7 % Critically high 43.0-75.0 [facility] Comment on above: Performed By: #### C BC ####[facility] [address] [place], [place] [address]DrDorcas Rudd Platelet mean volume (Bld) [Entitic vol] 10.7 fL Normal 9.5-13.5 [facility] Comment on above: Performed By: #### C BC ####[facility] [address] [place], [place] [address]Dr. Thomas Rudd PLT 190 103/ul Normal 150-450 [facility] Comment on above: Performed By: #### C BC ####[facility] [address] [id number]. Thomas Rudd RBC 3.70 106/ul Critically low 4.70-6.10 [facility] Comment on above: Performed By: #### C BC ####[facility] [address] [id number]. Thomas Rudd WBC 16.1 103/ul Critically high 4.0-11.0 [facility] Comment on above: Performed By: #### C BC ####[facility] [address] [address]Dr. Thomas Rudd CRPon 10-22-2021 CRP 12.6 mg/dL Critically high <=1.0 [facility] Comment on above: Performed By: #### C MADM, CRP, BNP, CMP #### [facility] [address] [place] [address] Dr. Thomas Rudd CULTURE BLOODon 10-22-2021 Microscopic examination of blood, culture Culture Observations: NO GROWTH AT 5 DAYS. Normal [facility] Comment on above: Performed By: #### B LDCX2 #### [facility] [address] [place] [address] Dr. Thomas Rudd Microscopic examination of blood, culture Culture Observations: NO GROWTH AT 5 DAYS. Normal [facility] Comment on above: Performed By: #### B LDCX1 ####[facility] [address] [address]Dr. Thomas Rudd Covid-19 PCR (CVDTB)on 09-27 SARS-CoV-2 (COVID-19) RNA KRISTIE+probe Ql (Unsp spec) Not detected Normal NOT DETECTED [facility] Comment on above: Result Comment: When diagnostic [...] for this test is supported by the [employer] of Health and Human Service's declaration that [...] be used). Performed By: #### C VDTBH ####[facility] [address] [address]Dr. Thomas Rudd LACTATE/LACTIC ACIDon 2021 Lactate [Moles/Vol] 1.5 mmol/L Normal 0.4-1.9 [facility] Comment on above: Performed By: #### L ACT #### [facility] [address] [address] [address] Thomas Rudd PROF 14(COMP METB)on 022 Albumin [Mass/Vol] 3.1 g/dL Critically low 3.4-5.0 [facility] Comment on above: Performed By: #### C MADM, CRP, BNP, CMP #### [facility] [address] [address] [address] Thomas Rudd Albumin/Globulin [Mass ratio] 0.9 {ratio} Normal [facility] Comment on above: Performed By: #### C MADM, CRP, BNP, CMP #### [facility] [address] [address] [address] Thomas Rudd ALP [Catalytic activity/Vol] 47 U/L Normal 46-116 [facility] Comment on above: Performed By: #### C MADM, CRP, BNP, CMP #### [facility] [address] [address] [address] Thomas Rudd ALT [Catalytic activity/Vol] 14 U/L Critically low 16-63 [facility] Comment on above: Performed By: #### C MADM, CRP, BNP, CMP #### [facility] [address] [place] [address] Dr. Thomas Rudd Anion gap [Moles/Vol] 13.9 mmol/L Normal Th [facility] Comment on above: Performed By: #### C MADM, CRP, BNP, CMP #### [facility] [address] [address] [address] Thomas Rudd AST [Catalytic activity/Vol] 17 U/L Normal 15-37 [facility] Comment on above: Performed By: #### C MADM, CRP, BNP, CMP #### [facility] [address] [place] [address] Dr. Thomas Rudd Bilirubin [Mass/Vol] 2.9 mg/dL Critically high 0.2-1.0 [facility] Comment on above: Performed By: #### C MADM, CRP, BNP, CMP #### [facility] [address] [place] [address] Dr. Thomas Rudd Calcium [Mass/Vol] 8.5 mg/dL Normal 8.5-10.1 [facility] Comment on above: Performed By: #### C MADM, CRP, BNP, CMP #### [facility] [address] [place] [address] Dr. Thomas Rudd Chloride [Moles/Vol] 103 mmol/L Normal 98-107 [facility] Comment on above: Performed By: #### C MADM, CRP, BNP, CMP #### [facility] [address] [place] [address] Dr. Thomas Rudd CO2 [Moles/Vol] 22.2 mmol/L Normal 21.0-32.0 [facility] Comment on above: Performed By: #### C MADM, CRP, BNP, CMP #### [facility] [address] [place] [address] Dr. Thomas Rudd Creatinine [Mass/Vol] 1.51 mg/dL Critically high 0.70-1.30 [facility] Comment on above: Performed By: #### C MADM, CRP, BNP, CMP #### [facility] [address] [place] [address] Dr. Thomas Rudd EGFR-AF BAHRAINI 54 mL/min/1.73m2 Critically low >=60 [facility] Comment on above: Performed By: #### C MADM, CRP, BNP, CMP #### [facility] [address] [address] [address] Thomas Rudd EGFR-NON AF BAHRAINI 45 mL/min/1.73m2 Critically low >=60 [facility] Comment on above: Performed By: #### C MADM, CRP, BNP, CMP #### [facility] [address] [address] [address] Thomas Rudd Globulin (S) [Mass/Vol] 3.5 g/dL Normal [facility] Comment on above: Performed By: #### C MADM, CRP, BNP, CMP #### [facility] [address] [place] [address] Dr. Thomas Rudd Glucose [Mass/Vol] 178 mg/dL Critically high 74-106 [facility] Comment on above: Performed By: #### C MADM, CRP, BNP, CMP #### [facility] [address] [address] [address] Thomas Rudd Potassium [Moles/Vol] 4.1 mmol/L Normal 3.5-5.1 [facility] Comment on above: Performed By: #### C MADM, CRP, BNP, CMP #### [facility] [address] [place] [address] Dr. Thomas Rudd Protein [Mass/Vol] 6.6 g/dL Normal 6.4-8.2 [facility] Comment on above: Performed By: #### C MADM, CRP, BNP, CMP #### [facility] [address] [address] [address] Thomas Rudd Sodium [Moles/Vol] 135 mmol/L Critically low 136-145 [facility] Comment on above: Performed By: #### C MADM, CRP, BNP, CMP #### [facility] [address] [address] [address] Thomas Rudd Urea nitrogen [Mass/Vol] 19.0 mg/dL Critically high 7.0-18.0 [facility] Comment on above: Performed By: #### C MADM, CRP, BNP, CMP #### [facility] [address] [place] [address] Dr. Thomas Rudd Urea nitrogen/Creatinine [Mass ratio] 12.6 mg/mg Normal [facility] Comment on above: Performed By: #### C MADM, CRP, BNP, CMP #### [facility] [address] [place] [address] Dr. Thomas Rudd PROTIMEon 10-22-2021 INR Coag (PPP) [Relative time] 1.24 {INR} Normal [facility] Comment on above: Performed By: #### P TT, PT #### [facility] [address] [place] [address] Dr. Thomas Rudd INR GUIDELINES SEE BELOW Normal [facility] Comment on above: Result Comment: MADHURI RED INR: 2.0 - 3.0 CONDITIONS NOT LISTED BELOW 2.5 - 3.5 FOR PROSTHETIC HEART VALVE REPLACEMENT 2.5 - 3.5 RECURRENT THROMBOSIS Performed By: #### P TT, PT #### [facility] [address] [place] [address] Dr. Thomas Rudd PT Coag (PPP) [Time] 13.2 s Critically high 9.0-11.6 [facility] Comment on above: Performed By: #### P TT, PT #### [facility] [address] [place] [address] Dr. Thomas Rudd PTTon 10-22-2021 aPTT Coag (Bld) [Time] 38.6 s Critically high 22.3-36. 2 [facility] Comment on above: Performed By: #### P TT, PT #### [facility] [address] [place] [address] Dr. Thomas Rudd SED RATE FAIRFAXERGRENon 2021 SED RATE 33 mm/hr Critically high <=20 [facility] Comment on above: Performed By: #### S EDR #### [facility] [address] [place] [address] Dr. Thomas Rudd TSHon 10-22-2021 TSH 1.538 uIU/mL Normal 0.358-3.740 [facility] Comment on above: Performed By: #### T ####[facility] [address] [place], [place] [address]BqDorcas Rudd XR CHEST 1 Von 10-22-2021 XR [...] JOCELINE HOUGH Date: 2021-10-22 12:47 Normal [facility] Albumin [Mass/volume] in Ser um or PlasmaOrdered By: Floyd Bolton on 08-07-2021 Albumin [Mass/Vol] 3.5 g/dL 3.2-5.5 [facility] Basophils Auto (Bld) [#/Vol] Ordered By: Floyd Bolton on 08-07-2021 Basophils (Bld) [#/Vol] 0.0 10*3/uL 0.0-0.2 [facility] Basophils/100 WBC Auto (Bld) Ordered By: Floyd Bolton on 08-07-2021 Basophils/100 WBC (Bld) 0.5 % [facility] Blood hemoglobin measurement (mass/volume)Ordered By: Floyd Bolton on 08-07-2021 Hemoglobin (Bld) [Mass/Vol] 13.3 g/dL 13.0-17.0 [facility] Blood leukocytes automated c ount (number/volume)Ordered By: Floyd Bolton on 08-07-2021 WBC (Bld) [#/Vol] 5.9 10*3/uL 4.5-11.0 [facility] Creatinine and Glomerular fi ltration rate.predicted panel (S/P/Bld)Ordered By: Floyd Bolton on 08-07-2021 Creatinine [Mass/Vol] 1.09 mg/dL 0.64-1.27 [facility] Eosinophils Auto (Bld) [#/Vo l]Ordered By: Floyd Bolton on 08-07-2021 Eosinophils (Bld) [#/Vol] 0.2 10*3/uL 0.0-0.45 [facility] Eosinophils/100 WBC Auto (Bl d)Ordered By: Floyd Bolton on 08-07-2021 Eosinophils/100 WBC (Bld) 3.0 % [facility] Erythrocyte distribution wid th Auto (RBC) [Ratio]Ordered By: Floyd Bolton on 08-07-2021 Erythrocyte distribution width (RBC) [Ratio] 16.1 % 12.0-14.8 [facility] Estimated glomerular filtrat ion rate (GFR) non- AmericanOrdered By: Floyd Bolton on 08-07-2021 GFR/1.73 sq M.predicted among non-blacks MDRD (S/P/Bld) [Vol rate/Area] > 60 mL/Min [facility] Globulin Calc (S) [Mass/Vol] Ordered By: Floyd Bolton on 08-07-2021 Globulin (S) [Mass/Vol] 2.8 g/dL [facility] Hematocrit Auto (Bld) [Volum e fraction]Ordered By: Floyd Bolton on 08-07-2021 Hematocrit (Bld) [Volume fraction] 38.5 % 38.8-50.0 [facility] - Hematology and Cell countsOrdered By: Floyd Bolton on 08-07-2021 Nucleated RBC/100 WBC (Bld) [Ratio] 0.0 % 0-0.5 [facility] Lymphocytes Auto (Bld) [#/Vo l]Ordered By: Floyd Bolton on 08-07-2021 Lymphocytes (Bld) [#/Vol] 1.0 10*3/uL 1.00-4.8 [facility] Lymphocytes/100 WBC Auto (Bl d)Ordered By: Floyd Bolton on 08-07-2021 Lymphocytes/100 WBC (Bld) 17.7 % [facility] MCH Auto (RBC) [Entitic mass ]Ordered By: Floyd Bolton on 08-07-2021 MCH (RBC) [Entitic mass] 32.6 pg 27.5-35.2 [facility] MCHC Auto (RBC) [Mass/Vol]Or dered By: Floyd Bolton on 08-07-2021 MCHC (RBC) [Mass/Vol] 34.6 g/dL 32.5-35.6 [facility] MCV Auto (RBC) [Entitic vol] Ordered By: Floyd Bolton on 08-07-2021 MCV (RBC) [Entitic vol] 94.1 fL 83.5-101 [facility] Monocytes Auto (Bld) [#/Vol] Ordered By: Floyd Bolton on 08-07-2021 Monocytes (Bld) [#/Vol] 0.6 10*3/uL 0.0-0.8 [facility] Monocytes/100 WBC Auto (Bld) Ordered By: Floyd Bolton on 08-07-2021 Monocytes/100 WBC (Bld) 9.4 % [facility] Neutrophils Auto (Bld) [#/Vo l]Ordered By: Floyd Bolton on 08-07-2021 Neutrophils (Bld) [#/Vol] 4.1 10*3/uL 1.8-7.7 [facility] Neutrophils/100 WBC Auto (Bl d)Ordered By: Floyd Bolton on 08-07-2021 Neutrophils/100 WBC (Bld) 69.4 % [facility] No Panel InformationOrdered By: Floyd Bolton on 08-07-2021 Estimated GFR () > 60 mL/Min [facility] Comment on above: GFR estimated refere nce range: According to KDOQI guidelines, <60 ml/min/1.73m2 is sufficient to diagnose a patient with chronic kidney disease. Pharmacy Creatinine Clearance (Chem N/A [facility] No Panel InformationOrdered By: Al Raymundo on 08-07-2021 Prostate Specific Antigen Screen 0.510 ng/mL 0.000-4.000 [facility] Platelet mean volume Auto (B ld) [Entitic vol]Ordered By: Floyd Bolton on 08-07-2021 Platelet mean volume (Bld) [Entitic vol] 8.6 fL 6.6-10.1 [facility] Platelets Auto (Bld) [#/Vol] Ordered By: Floyd Bolton on 08-07-2021 Platelets (Bld) [#/Vol] 198 10*3/uL 150-450 [facility] Protein [Mass/volume] in Ser um or PlasmaOrdered By: Floyd Bolton on 08-07-2021 Protein [Mass/Vol] 6.3 g/dL 6.1-7.9 [facility] RBC Auto (Bld) [#/Vol]Ordere d By: Floyd Bolton on 08-07-2021 RBC (Bld) [#/Vol] 4.10 10*6/uL 3.90-5.60 [facility] Serum or plasma alanine cortez otransferase measurement without P-5'-P (enzymatic activiOrdered By: Floyd Bolton on 08-07-2021 ALT No additional P-5'-P [Catalytic activity/Vol] 23 U/L 10-60 [facility] Serum or plasma albumin/glob ulin mass ratioOrdered By: Floyd Bolton on 08-07-2021 Albumin/Globulin [Mass ratio] 1.3 {ratio} [facility] Serum or plasma alkaline cm sphatase measurement (enzymatic activity/volume)Ordered By: Floyd Bolton on 08-07-2021 ALP [Catalytic activity/Vol] 52 U/L 32-92 [facility] Serum or plasma aspartate am inotransferase measurement (enzymatic activity/volume)Ordered By: Floyd Bolton on 08-07-2021 AST [Catalytic activity/Vol] 25 U/L 10-42 [facility] Serum or plasma calcium wong urement (mass/volume)Ordered By: Floyd Bolton on 08-07-2021 Calcium [Mass/Vol] 9.0 mg/dL 8.2-10.2 [facility] Serum or plasma chloride fan surement (moles/volume)Ordered By: Floyd Bolton on 08-07-2021 Chloride [Moles/Vol] 104 mmol/L 95-114 [facility] Serum or plasma glucose wong urement (mass/volume)Ordered By: Floyd Bolton on 08-07-2021 Glucose [Mass/Vol] 114 mg/dL 70-100 [facility] Comment on above: ADA recommended refe rence range Random Glucose Reference Range is dependent on time and content of last meal. Glucose of more than 200 mg/dL in a nonstressed, ambulatory subject supports the diagnosis of Diabetes Mellitus. Serum or plasma potassium me asurement (moles/volume)Ordered By: Floyd Bolton on 08-07-2021 Potassium [Moles/Vol] 4.0 mmol/L 3.5-5.1 [facility] Serum or plasma sodium measu rement (moles/volume)Ordered By: Floyd Bolton on 08-07-2021 Sodium [Moles/Vol] 137 mmol/L 136-146 [facility] Serum or plasma total biliru bin measurement (mass/volume)Ordered By: Floyd Bolton on 08-07-2021 Bilirubin [Mass/Vol] 1.5 mg/dL 0.3-1.2 [facility] Comment on above: Samples from patient s who have taken Naproxen have shown spurious elevation in Total Bilirubin levels. A metabolite of Naproxen, O-desmethylnaproxen, has been shown to interfere with the Femi-Batsheva method for measuring Total Bilirubin. Serum or plasma total carbon dioxide measurement (moles/volume)Ordered By: Floyd Bolton on 08-07-2021 CO2 [Moles/Vol] 22.9 mmol/L 22.0-30.0 [facility] Serum or plasma urea nitroge n measurement (mass/volume)Ordered By: Floyd Bolton on 08-07-2021 Urea nitrogen [Mass/Vol] 17 mg/dL 9-23 [facility] Albumin [Mass/volume] in Ser um or Plasmaon 08-22-2020 Albumin [Mass/Vol] 3.6 g/dL 3.2-5.5 [facility] Basophils Auto (Bld) [#/Vol] on 08-22-2020 Basophils (Bld) [#/Vol] 0.0 10*3/uL 0.0-0.2 [facility] Basophils/100 WBC Auto (Bld) on 08-22-2020 Basophils/100 WBC (Bld) 0.2 % [facility] Blood hemoglobin measurement (mass/volume)on 08-22-2020 Hemoglobin (Bld) [Mass/Vol] 12.3 g/dL 13.0-17.0 [facility] Blood leukocytes automated c ount (number/volume)on 08-22-2020 WBC (Bld) [#/Vol] 5.8 10*3/uL 4.5-11.0 [facility] Creatinine and Glomerular fi ltration rate.predicted panel (S/P/Bld)on 08-22-2020 Creatinine [Mass/Vol] 1.33 mg/dL 0.64-1.27 [facility] Eosinophils Auto (Bld) [#/Vo l]on 08-22-2020 Eosinophils (Bld) [#/Vol] 0.1 10*3/uL 0.0-0.45 [facility] Eosinophils/100 WBC Auto (Bl d)on 08-22-2020 Eosinophils/100 WBC (Bld) 2.2 % [facility] Erythrocyte distribution wid th Auto (RBC) [Ratio]on 08-22-2020 Erythrocyte distribution width (RBC) [Ratio] 15.7 % 12.0-14.8 [facility] Erythrocyte sedimentation ra te by Photometric methodon 08-22-2020 ESR Photometric method (Bld) [Velocity] 19 mm/hr 0-19 [facility] Estimated glomerular filtrat ion rate (GFR) non- Americanon 08-22-2020 GFR/1.73 sq M.predicted among non-blacks MDRD (S/P/Bld) [Vol rate/Area] 52 mL/Min [facility] Globulin Calc (S) [Mass/Vol] on 08-22-2020 Globulin (S) [Mass/Vol] 2.8 g/dL [facility] Hematocrit Auto (Bld) [Volum e fraction]on 08-22-2020 Hematocrit (Bld) [Volume fraction] 36.6 % 38.8-50.0 [facility] Laboratory - Hematology and Cell countson 08-22-2020 Nucleated RBC/100 WBC (Bld) [Ratio] 0.1 % 0-0.5 [facility] Lymphocytes Auto (Bld) [#/Vo l]on 08-22-2020 Lymphocytes (Bld) [#/Vol] 1.3 10*3/uL 1.00-4.8 [facility] Lymphocytes/100 WBC Auto (Bl d)on 08-22-2020 Lymphocytes/100 WBC (Bld) 22.1 % [facility] MCH Auto (RBC) [Entitic mass ]on 08-22-2020 MCH (RBC) [Entitic mass] 31.9 pg 27.5-35.2 [facility] MCHC Auto (RBC) [Mass/Vol]on 08-22-2020 MCHC (RBC) [Mass/Vol] 33.5 g/dL 32.5-35.6 [facility] MCV Auto (RBC) [Entitic vol] on 08-22-2020 MCV (RBC) [Entitic vol] 95.1 fL 83.5-101 [facility] Monocytes Auto (Bld) [#/Vol] on 08-22-2020 Monocytes (Bld) [#/Vol] 0.6 10*3/uL 0.0-0.8 [facility] Monocytes/100 WBC Auto (Bld) on 08-22-2020 Monocytes/100 WBC (Bld) 10.5 % [facility] Neutrophils Auto (Bld) [#/Vo l]on 08-22-2020 Neutrophils (Bld) [#/Vol] 3.8 10*3/uL 1.8-7.7 [facility] Neutrophils/100 WBC Auto (Bl d)on 08-22-2020 Neutrophils/100 WBC (Bld) 65.0 % [facility] No Panel Informationon 08-22 Estimated GFR () > 60 mL/Min [facility] Comment on above: GFR estimated refere nce range: According to KDOQI guidelines, <60 ml/min/1.73m2 is sufficient to diagnose a patient with chronic kidney disease. Pharmacy Creatinine Clearance (Chem N/A [facility] Platelet mean volume Auto (B ld) [Entitic vol]on 08-22-2020 Platelet mean volume (Bld) [Entitic vol] 8.4 fL 6.6-10.1 [facility] Platelets Auto (Bld) [#/Vol] on 08-22-2020 Platelets (Bld) [#/Vol] 238 10*3/uL 150-450 [facility] Protein [Mass/volume] in Ser um or Plasmaon 08-22-2020 Protein [Mass/Vol] 6.4 g/dL 6.1-7.9 [facility] RBC Auto (Bld) [#/Vol]on RBC (Bld) [#/Vol] 3.85 10*6/uL 3.90-5.60 [facility] Serum or plasma alanine cortez otransferase measurement without P-5'-P (enzymatic activion 08-22-2020 ALT No additional P-5'-P [Catalytic activity/Vol] 24 U/L 10-60 [facility] Serum or plasma albumin/glob ulin mass ratioon 08-22-2020 Albumin/Globulin [Mass ratio] 1.3 {ratio} [facility] Serum or plasma alkaline cm sphatase measurement (enzymatic activity/volume)on 08-22-2020 ALP [Catalytic activity/Vol] 44 U/L 32-92 [facility] Serum or plasma aspartate am inotransferase measurement (enzymatic activity/volume)on 08-22-2020 AST [Catalytic activity/Vol] 25 U/L 10-42 [facility] Serum or plasma calcium wong urement (mass/volume)on 08-22-2020 Calcium [Mass/Vol] 8.9 mg/dL 8.2-10.2 [facility] Serum or plasma chloride fan surement (moles/volume)on 08-22-2020 Chloride [Moles/Vol] 106 mmol/L 95-114 [facility] Serum or plasma glucose wong urement (mass/volume)on 08-22-2020 Glucose [Mass/Vol] 162 mg/dL 70-100 [facility] Comment on above: ADA recommended refe rence rangeRandom Glucose Reference Range is dependent on time and content of last meal. Glucose of more than 200 mg/dL in a nonstressed, ambulatory subject supports the diagnosis of Diabetes Mellitus. Serum or plasma potassium me asurement (moles/volume)on 08-22-2020 Potassium [Moles/Vol] 4.1 mmol/L 3.5-5.1 [facility] Serum or plasma sodium measu rement (moles/volume)on 08-22-2020 Sodium [Moles/Vol] 137 mmol/L 136-146 [facility] Serum or plasma total biliru bin measurement (mass/volume)on 08-22-2020 Bilirubin [Mass/Vol] 1.2 mg/dL 0.3-1.2 [facility] Serum or plasma total carbon dioxide measurement (moles/volume)on 08-22-2020 CO2 [Moles/Vol] 22.4 mmol/L 22.0-30.0 [facility] Serum or plasma urea nitroge n measurement (mass/volume)on 08-22-2020 Urea nitrogen [Mass/Vol] 25 mg/dL 12-19 [facility] Albumin [Mass/volume] in Ser um or Plasmaon 06-26-2020 Albumin [Mass/Vol] 3.5 g/dL 3.2-5.5 [facility] Basophils Auto (Bld) [#/Vol] on 06-26-2020 Basophils (Bld) [#/Vol] 0.0 10*3/uL 0.0-0.2 [facility] Basophils/100 WBC Auto (Bld) on 06-26-2020 Basophils/100 WBC (Bld) 0.7 % [facility] Blood hemoglobin measurement (mass/volume)on 06-26-2020 Hemoglobin (Bld) [Mass/Vol] 13.2 g/dL 13.0-17.0 [facility] Blood leukocytes automated c ount (number/volume)on 06-26-2020 WBC (Bld) [#/Vol] 6.7 10*3/uL 4.5-11.0 [facility] Creatinine and Glomerular fi ltration rate.predicted panel (S/P/Bld)on 06-26-2020 Creatinine [Mass/Vol] 1.21 mg/dL 0.64-1.27 [facility] Eosinophils Auto (Bld) [#/Vo l]on 06-26-2020 Eosinophils (Bld) [#/Vol] 0.2 10*3/uL 0.0-0.45 [facility] Eosinophils/100 WBC Auto (Bl d)on 06-26-2020 Eosinophils/100 WBC (Bld) 2.3 % [facility] Erythrocyte distribution wid th Auto (RBC) [Ratio]on 06-26-2020 Erythrocyte distribution width (RBC) [Ratio] 16.0 % 12.0-14.8 [facility] Erythrocyte sedimentation ra te by Photometric methodon 06-26-2020 ESR Photometric method (Bld) [Velocity] 21 mm/hr 0-19 [facility] GFR/1.73 sq M.predicted marilia g non-blacks MDRD (S/P/Bld) [Vol rate/Area]on 06-26-2020 GFR/1.73 sq M predicted among non-blacks MDRD (S/P/Bld) [Vol rate/Area] 58 mL/Min [facility] Globulin Calc (S) [Mass/Vol] on 06-26-2020 Globulin (S) [Mass/Vol] 3.2 g/dL [facility] Hematocrit Auto (Bld) [Volum e fraction]on 06-26-2020 Hematocrit (Bld) [Volume fraction] 37.2 % 38.8-50.0 [facility] Lymphocytes Auto (Bld) [#/Vo l]on 06-26-2020 Lymphocytes (Bld) [#/Vol] 1.3 10*3/uL 1.00-4.8 [facility] Lymphocytes/100 WBC Auto (Bl d)on 06-26-2020 Lymphocytes/100 WBC (Bld) 19.7 % [facility] MCH Auto (RBC) [Entitic mass ]on 06-26-2020 MCH (RBC) [Entitic mass] 33.4 pg 27.5-35.2 [facility] MCHC Auto (RBC) [Mass/Vol]on 06-26-2020 MCHC (RBC) [Mass/Vol] 35.4 g/dL 32.5-35.6 [facility] MCV Auto (RBC) [Entitic vol] on 06-26-2020 MCV (RBC) [Entitic vol] 94.2 fL 83.5-101 [facility] Monocytes Auto (Bld) [#/Vol] on 06-26-2020 Monocytes (Bld) [#/Vol] 0.6 10*3/uL 0.0-0.8 [facility] Monocytes/100 WBC Auto (Bld) on 06-26-2020 Monocytes/100 WBC (Bld) 9.1 % [facility] Neutrophils Auto (Bld) [#/Vo l]on 06-26-2020 Neutrophils (Bld) [#/Vol] 4.6 10*3/uL 1.8-7.7 [facility] Neutrophils/100 WBC Auto (Bl d)on 06-26-2020 Neutrophils/100 WBC (Bld) 68.2 % [facility] No Panel Informationon 06-26 Estimated GFR () > 60 mL/Min [facility] Comment on above: GFR estimated refere nce range: According to KDOQI guidelines, <60 ml/min/1.73m2 is sufficient to diagnose a patient with chronic kidney disease. Otheron 06-26-2020 GFR/1.73 sq M.predicted MDRD (S/P/Bld) [Vol rate/Area] > 60 mL/Min [facility] Comment on above: GFR estimated refere nce range: According to KDOQI guidelines, <60 ml/min/1.73m2 is sufficient to diagnose a patient with chronic kidney disease. Nucleated RBC/100 WBC (Bld) [Ratio] 0.1 % 0-0.5 [facility] Pharmacy Creatinine Clearance (Chem N/A [facility] Platelet mean volume Auto (B ld) [Entitic vol]on 06-26-2020 Platelet mean volume (Bld) [Entitic vol] 8.4 fL 6.6-10.1 [facility] Platelets Auto (Bld) [#/Vol] on 06-26-2020 Platelets (Bld) [#/Vol] 241 10*3/uL 150-450 [facility] Protein [Mass/volume] in Ser um or Plasmaon 06-26-2020 Protein [Mass/Vol] 6.7 g/dL 6.1-7.9 [facility] RBC Auto (Bld) [#/Vol]on RBC (Bld) [#/Vol] 3.95 10*6/uL 3.90-5.60 [facility] Serum or plasma alanine cortez otransferase measurement without P-5'-P (enzymatic activion 06-26-2020 ALT No additional P-5'-P [Catalytic activity/Vol] 25 U/L [facility] Serum or plasma albumin/glob ulin mass ratioon 06-26-2020 Albumin/Globulin [Mass ratio] 1.1 {ratio} [facility] Serum or plasma alkaline cm sphatase measurement (enzymatic activity/volume)on 06-26-2020 ALP [Catalytic activity/Vol] 47 U/L [facility] Serum or plasma aspartate am inotransferase measurement (enzymatic activity/volume)on 06-26-2020 AST [Catalytic activity/Vol] 25 U/L 10 [facility] Serum or plasma calcium wong urement (mass/volume)on 06-26-2020 Calcium [Mass/Vol] 9.0 mg/dL 8.2-10.2 [facility] Serum or plasma chloride fan surement (moles/volume)on 06-26-2020 Chloride [Moles/Vol] 103 mmol/L 95-114 [facility] Serum or plasma glucose wong urement (mass/volume)on 06-26-2020 Glucose [Mass/Vol] 220 mg/dL 70-100 [facility] Comment on above: ADA recommended refe rence rangeRandom Glucose Reference Range is dependent on time and content of last meal. Glucose of more than 200 mg/dL in a nonstressed, ambulatory subject supports the diagnosis of Diabetes Mellitus. Serum or plasma potassium me asurement (moles/volume)on 06-26-2020 Potassium [Moles/Vol] 4.0 mmol/L 3.5-5.1 [facility] Serum or plasma sodium measu rement (moles/volume)on 06-26-2020 Sodium [Moles/Vol] 136 mmol/L 136-146 [facility] Serum or plasma total biliru bin measurement (mass/volume)on 06-26-2020 Bilirubin [Mass/Vol] 1.2 mg/dL 0.3-1.2 [facility] Serum or plasma total carbon dioxide measurement (moles/volume)on 06-26-2020 CO2 [Moles/Vol] 21.4 mmol/L 22.0-30.0 [facility] Serum or plasma urea nitroge n measurement (mass/volume)on 06-26-2020 Urea nitrogen [Mass/Vol] 18 mg/dL 12-19 [facility] Vital Signs Date Time Vital Sign Value Performing Clinician Facility 11-13-2024 09:10-0400 Diastolic blood pressure 70 mm[Hg] Al Breanne Work Phone: [facility] 11-13-2024 09:10-0400 Heart rate 76 /min Al Raymundo JR Work Phone: [facility] 11-13-2024 09:10-0400 Respiratory rate 16 /min Al Raymundo JR Work Phone: [facility] 11-13-2024 09:10-0400 SaO2% (BldA) [Mass fraction] 92 % Al Raymundo JR Work Phone: [facility] 11-13-2024 09:10-0400 Systolic blood pressure 148 mm[Hg] Al Raymundo JR Work Phone: [facility] 11-13-2024 06:52-0400 Body height 180.34 cm Al Raymundo JR Work Phone: [facility] 11-13-2024 06:52-0400 Body weight 90.26 kg Al Raymundo JR Work Phone: [facility] 07-12-2024 15:47-0400 Body height 182.9 cm Joby Pinedo MD Work Phone: [facility] 07-12-2024 15:47-0400 Body mass index (BMI) [Ratio] 28.92 kg/m2 Joby Pinedo MD Work Phone: [facility] 07-12-2024 15:47-0400 Body weight 96.71 kg Joyb Pinedo MD Work Phone: [facility] 07-12-2024 15:47-0400 Diastolic blood pressure 52 mm[Hg] Joby Pinedo MD Work Phone: [facility] 07-12-2024 15:47-0400 Heart rate 69 /min Joby Pinedo MD Work Phone: [facility] 07-12-2024 15:47-0400 Systolic blood pressure 130 mm[Hg] Joby Pinedo MD Work Phone: [facility] 05-30-2024 15:03-0500 Body height 182.9 cm Dewey Biedenbach DO Work Phone: [facility] 05-30-2024 15:03-0500 Body mass index (BMI) [Ratio] 30.52 kg/m2 Dewey Biedenbach DO Work Phone: [facility] 05-30-2024 15:03-0500 Body weight 102.06 kg Dewey Biedenbach DO Work Phone: [facility] 05-02-2024 14:50-0500 Body height 182.9 cm Dewey Biedenbach DO Work Phone: [facility] 05-02-2024 14:50-0500 Body mass index (BMI) [Ratio] 30.52 kg/m2 Dewey Biedenbach DO Work Phone: [facility] 05-02-2024 14:50-0500 Body weight 102.06 kg Dewey Biedenbach DO Work Phone: [facility] 04-11-2024 14:26-0500 Body height 182.9 cm Dewey Biedenbach DO Work Phone: [facility] 04-11-2024 14:26-0500 Body mass index (BMI) [Ratio] 30.52 kg/m2 Dewey Biedenbach DO Work Phone: [facility] 04-11-2024 14:26-0500 Body weight 102.06 kg Dewey Biedenbach DO Work Phone: [facility] 01-25-2024 14:33-0400 Body height 182.9 cm Joby Pinedo MD Work Phone: [facility] 01-25-2024 14:33-0400 Body mass index (BMI) [Ratio] 30.11 kg/m2 Joby Pinedo MD Work Phone: [facility] 01-25-2024 14:33-0400 Body weight 100.7 kg Joby Pinedo MD Work Phone: [facility] 01-25-2024 14:33-0400 Diastolic blood pressure 48 mm[Hg] Joby Pinedo MD Work Phone: [facility] 01-25-2024 14:33-0400 Heart rate 56 /min Joby Pinedo MD Work Phone: [facility] 01-25-2024 14:33-0400 Systolic blood pressure 132 mm[Hg] Joby Pinedo MD Work Phone: [facility] 11-13-2023 13:05-0400 Body temperature 97.7 [degF] Milton Camejo MD Work Phone: [facility] 11-13-2023 13:05-0400 Diastolic blood pressure 50 mm[Hg] Milton Camejo MD Work Phone: [facility] 11-13-2023 13:05-0400 Heart rate 69 /min Milton Camejo MD Work Phone: [facility] 11-13-2023 13:05-0400 Respiratory rate 17 /min Milton Camejo MD Work Phone: [facility] 11-13-2023 13:05-0400 SaO2% (BldA) [Mass fraction] 95 % Milton Camejo MD Work Phone: [facility] 11-13-2023 13:05-0400 Systolic blood pressure 133 mm[Hg] Milton Camejo MD Work Phone: [facility] 11-13-2023 04:25-0400 Body mass index (BMI) [Ratio] 27.78 kg/m2 Milton Camejo MD Work Phone: [facility] 11-13-2023 04:25-0400 Body weight 90.35 kg Mitlon Camejo MD Work Phone: [facility] 11-03-2023 09:32-0400 Body height 180.3 cm Milton Camejo MD Work Phone: [facility] 10-26-2023 12:00-0400 Body temperature 97.7 [degF] JR Al Raymundo Work Phone: [facility] 10-26-2023 12:00-0400 Diastolic blood pressure 65 mm[Hg] JR Al Raymundo Work Phone: [facility] 10-26-2023 12:00-0400 Heart rate 68 /min JR Al Navarretetommie Work Phone: [facility] 10-26-2023 12:00-0400 Inhaled oxygen flow rate 3 L/min JR Al Navarretetommie Work Phone: [facility] 10-26-2023 12:00-0400 Respiratory rate 18 /min JR Al Raymundo Work Phone: [facility] 10-26-2023 12:00-0400 SaO2% (BldA) [Mass fraction] 100 % JR Al Raymundo Work Phone: [facility] 10-26-2023 12:00-0400 Systolic blood pressure 161 mm[Hg] JR Al Raymundo Work Phone: [facility] 10-26-2023 06:00-0400 Body weight 97.2 kg JR Al Raymundo Work Phone: [facility] 10-20-2023 16:11-0400 Body height 177.8 cm JR Al Raymundo Work Phone: [facility] 10-19-2023 19:33-0400 Body temperature 97.3 [degF] JR Al Raymundo Work Phone: [facility] 10-19-2023 19:33-0400 Diastolic blood pressure 53 mm[Hg] JR Al Raymundo Work Phone: [facility] 10-19-2023 19:33-0400 Heart rate 80 /min JR Al Raymundo Work Phone: [facility] 10-19-2023 19:33-0400 Inhaled oxygen flow rate 4 L/min JR Al Raymundo Work Phone: [facility] 10-19-2023 19:33-0400 Respiratory rate 17 /min JR Al Raymundo Work Phone: [facility] 10-19-2023 19:33-0400 SaO2% (BldA) [Mass fraction] 95 % JR Al Raymundo Work Phone: [facility] 10-19-2023 19:33-0400 Systolic blood pressure 115 mm[Hg] JR Al Raymundo Work Phone: [facility] 10-19-2023 13:04-0400 Body height 182.88 cm JR Al Raymundo Work Phone: [facility] 10-19-2023 13:04-0400 Body weight 99.79 kg JR Al Raymundo Work Phone: [facility] 10-13-2023 16:01-0400 Body height 180.3 cm Joby Pinedo MD Work Phone: [facility] 10-13-2023 16:01-0400 Body mass index (BMI) [Ratio] 30.4 kg/m2 Joby Pinedo MD Work Phone: [facility] 10-13-2023 16:01-0400 Body weight 98.88 kg Joby Pinedo MD Work Phone: [facility] 10-13-2023 16:01-0400 Diastolic blood pressure 64 mm[Hg] Joby Pinedo MD Work Phone: [facility] 10-13-2023 16:01-0400 Heart rate 70 /min Joby Pinedo MD Work Phone: [facility] 10-13-2023 16:01-0400 Systolic blood pressure 110 mm[Hg] Joby Pinedo MD Work Phone: [facility] 09-15-2023 20:00-0400 Body temperature 97.6 [degF] Al Raymundo Work Phone: [facility] 09-15-2023 20:00-0400 Diastolic blood pressure 59 mm[Hg] Al Raymundo Work Phone: [facility] 09-15-2023 20:00-0400 Heart rate 68 /min Al Raymundo Work Phone: [facility] 09-15-2023 20:00-0400 Inhaled oxygen flow rate 6 L/min Al Raymundo Work Phone: [facility] 09-15-2023 20:00-0400 Respiratory rate 18 /min Al Raymundo Work Phone: [facility] 09-15-2023 20:00-0400 SaO2% (BldA) [Mass fraction] 95 % Al Raymundo Work Phone: [facility] 09-15-2023 20:00-0400 Systolic blood pressure 128 mm[Hg] Al Navarreteone Work Phone: [facility] 09-15-2023 06:00-0400 Body weight 102.4 kg Al Raymundo Work Phone: [facility] 09-10-2023 13:36-0400 Body height 180.34 cm Al Rosalbatommie Work Phone: [facility] 09-09-2023 15:30-0400 Diastolic blood pressure 56 mm[Hg] JR Al Raymundo Work Phone: [facility] 09-09-2023 15:30-0400 Heart rate 69 /min JR Al Raymundo Work Phone: [facility] 09-09-2023 15:30-0400 Inhaled oxygen flow rate 3 L/min JR Al Raymundo Work Phone: [facility] 09-09-2023 15:30-0400 Respiratory rate 18 /min JR Al Raymundo Work Phone: [facility] 09-09-2023 15:30-0400 SaO2% (BldA) [Mass fraction] 95 % JR Al Raymundo Work Phone: [facility] 09-09-2023 15:30-0400 Systolic blood pressure 125 mm[Hg] JR Al Raymundo Work Phone: [facility] 09-09-2023 11:56-0400 Body height 180.34 cm JR Al Raymundo Work Phone: [facility] 09-09-2023 11:56-0400 Body temperature 98.8 [degF] JR Al Raymundo Work Phone: [facility] 09-09-2023 11:56-0400 Body weight 99.33 kg JR Al Raymundo Work Phone: [facility] 07-01-2023 09:59-0400 Diastolic blood pressure 78 mm[Hg] [address] 07-01-2023 09:59-0400 Heart rate 71 /min [address] 07-01-2023 09:59-0400 Systolic blood pressure 138 mm[Hg] [address] 06-23-2023 13:14-0400 Body height 180.3 cm Joby Pinedo MD Work Phone: [facility] 06-23-2023 13:14-0400 Body mass index (BMI) [Ratio] 32.26 kg/m2 Joyb Pinedo MD Work Phone: [facility] 06-23-2023 13:14-0400 Body weight 104.92 kg Joby Pinedo MD Work Phone: [facility] 06-23-2023 13:14-0400 Diastolic blood pressure 78 mm[Hg] Joby Pinedo MD Work Phone: [facility] 06-23-2023 13:14-0400 Heart rate 72 /min Joby Pinedo MD Work Phone: [facility] 06-23-2023 13:14-0400 Systolic blood pressure 138 mm[Hg] Joby Pinedo MD Work Phone: [facility] 03-13-2023 08:00-0500 Body temperature 97.9 [degF] PHYSICIAN NO [facility] 03-13-2023 08:00-0500 Diastolic blood pressure 70 mm[Hg] PHYSICIAN NO [facility] 03-13-2023 08:00-0500 Heart rate 66 /min PHYSICIAN NO [facility] 03-13-2023 08:00-0500 Respiratory rate 17 /min PHYSICIAN NO [facility] 03-13-2023 08:00-0500 SaO2% (BldA) [Mass fraction] 95 % PHYSICIAN NO [facility] 03-13-2023 08:00-0500 Systolic blood pressure 137 mm[Hg] PHYSICIAN NO [facility] 03-13-2023 06:00-0500 Body weight 105.2 kg PHYSICIAN NO [facility] 03-12-2023 12:26-0500 Inhaled oxygen flow rate 8 L/min PHYSICIAN NO [facility] 03-12-2023 11:15-0500 Body height 182.88 cm PHYSICIAN NO [facility] 03-12-2023 11:15-0500 Body mass index (BMI) [Ratio] 31.6 kg/m2 PHYSICIAN NO [facility] 02-26-2023 07:55-0500 Body height 180.[address] 02-26-2023 07:55-0500 Body mass index (BMI) [Ratio] 31.8 kg/m2 [address] 02-26-2023 07:55-0500 Body weight 103.[address] 02-23-2023 13:22-0500 Diastolic blood pressure 60 mm[Hg] Joby Pinedo MD Work Phone: [facility] 02-23-2023 13:22-0500 Systolic blood pressure 144 mm[Hg] Joby Pinedo MD Work Phone: [facility] 02-23-2023 13:21-0500 Body height 180.3 cm Joby Pinedo MD Work Phone: [facility] 02-23-2023 13:21-0500 Body mass index (BMI) [Ratio] 31.8 kg/m2 Joby Pinedo MD Work Phone: [facility] 02-23-2023 13:21-0500 Body weight 103.42 kg Joby Pinedo MD Work Phone: [facility] 02-23-2023 13:21-0500 Heart rate 36 /min Joby Pinedo MD Work Phone: [facility] 06-03-2022 13:15-0500 Blood Pressure Location Yovany AVIL[facility] 06-03-2022 13:15-0500 Diastolic blood pressure 80 mm[Hg] Yovany AVILA [facility] 06-03-2022 13:15-0500 Heart rate 70 /min Yovany AVILA [facility] 06-03-2022 13:15-0500 Respiratory rate 16 /min Yovany AVILA [facility] [place] 06-03-2022 13:15-0500 Systolic blood pressure 130 mm[Hg] Yovany AVILA [facility] Encounters Encounter Date Encounter Type Care Provider Facility Start: 11-13-2024 End: 11-13-2024 ambulatory Shabana L Ly Facility:[facility] Start: 11-13-2024 Non-patient / Non-visit Shabana L Ly DO -[facility] Work Phone: Start: 11-10-2024 End: 11-10-2024 Office outpatient visit 15 minutes Medardo Tsai 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 Work Phone: [facility] Comment on above: S/P TAVR (transcathe ter aortic valve replacement) (Primary Dx); Chronic kidney disease, stage 3b (Multi) Start: 11-10-2024 End: 11-10-[address] [facility] Start: 10-06-2024 End: 10-06-2024 Patient encounter procedure Joby Pinedo MD -Pacemaker Check Start: 10-06-2024 End: 10-06-2024 ambulatory Al Raymundo JR Work Phone: [facility] Work Phone: Start: 10-06-2024 Non-patient / Non-visit Hortencia Mcdonough -[facility] Start: 08-08-2024 End: 08-08-2024 Patient encounter procedure Al Raymundo JR Work Phone: [facility] [address] Work Phone: Start: 08-08-2024 End: 08-08-2024 ambulatory Al Raymundo JR Work Phone: [facility] Work Phone: Start: 07-12-2024 End: 07-12-2024 ambulatory JOBY [facility] Start: 07-12-2024 End: 07-12-2024 Office outpatient visit 25 minutes Joby Pinedo MD Work Phone: [facility] Comment on above: Chronic systolic hea rt failure (Primary Dx); Single vessel coronary artery disease; Severe aortic stenosis; Pulmonary hypertension (Multi); Persistent atrial fibrillation (Multi); Nonrheumatic aortic valve stenosis; Hypercholesteremia; Primary hypertension; History of transcatheter aortic valve replacement (TAVR); Bradycardia; Abnormal ECG; 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; Shortness of breath; Former smoker; BMI 28.0-28.9,adult Start: 07-07-2024 End: 07-07-2024 Patient encounter procedure Al Raymundo Work Phone: [facility]-Pacemaker Check Start: 07-07-2024 End: 07-07-2024 ambulatory Al Jung Rosalbatommie REGALADO Work Phone: [facility] Work Phone: Start: 07-07-2024 Non-patient / Non-visit Rock Raymundo JR Work Phone: [facility] Start: 06-20-2024 End: 06-20-2024 ambulatory DEWEY CHAMORRO Not Available Start: 06-08-2024 End: 06-08-2024 ambulatory Al Raymundo Work Phone: [facility] Work Phone: Start: 06-08-2024 End: 06-08-2024 Patient encounter procedure Al Raymundo Work Phone: [facility] [address] Work Phone: Start: 05-30-2024 [...] Chamorro DO Work Phone: YUSUF BARCLAYEDELBraden Start: 04-12-2024 End: 04-12-2024 Patient encounter procedure Al Raymundo JR Work Phone: [facility] [address] Work Phone: Start: 04-12-2024 End: 04-12-2024 ambulatory Al Raymundo JR Work Phone: [facility] Work Phone: Start: 04-11-2024 End: 04-11-2024 ambulatory DEWEY CHAMORRO Not Available Start: 04-11-2024 End: 04-11-2024 Office outpatient visit 25 minutes Deewy Chamorro DO Work Phone: YUSUF PAUL DENYPARAS Comment on above: Recurrent epistaxis (Primary Dx); Chronic anticoagulation; Nasal septal deviation; Chronic rhinitis Start: 04-11-2024 End: 04-11-2024 Bamboo flowsheet Dewey Chamorro DO Work Phone: NORBERTOLeslie PAUL DENYPARAS Start: 04-11-2024 End: 04-11-2024 Bamboo flowsheet Dewey Chamorro Work Phone: [facility] Start: 04-07-2024 End: 04-07-2024 ambulatory Al Raymundo Facility:[facility] Start: 04-07-2024 Non-patient / Non-visit [facility] Start: 01-25-2024 End: 01-25-2024 ambulatory [facility] Ambulatory Start: 01-25-2024 End: 01-25-2024 Office outpatient visit 25 minutes Joby Pinedo MD Work Phone: [facility] Comment on above: Nonrheumatic aortic valve stenosis (Primary Dx); Single vessel coronary artery disease; Chronic systolic heart failure; Persistent atrial fibrillation (Multi); Edema, unspecified type; Severe aortic stenosis; History of transcatheter aortic valve replacement (TAVR); Pulmonary hypertension (Multi); Primary hypertension; Hypercholesteremia; Abnormal ECG; Shortness of breath; 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; Obstructive sleep apnea syndrome; BMI 30.0-30.9,adult; Former smoker Start: 01-12-2024 End: 01-12-2024 Subsequent hospital visit by physician Nicole Soler Echo/Vasc Room 2 [facility] Comment on above: Aortic stenosis, sev ere; S/P TAVR (transcatheter aortic valve replacement) Start: 01-12-2024 End: 01-12-2024 ambulatory ANDRA MOLINA [facility] Start: 01-06-2024 End: 01-06-2024 ambulatory Al Raymundo Facility:[facility] Start: 01-06-2024 Non-patient / Non-visit JR Heike lopez Valtommie Work Phone: [facility] Start: 11-01-2023 End: 11-13-2023 Evaluation and management of inpatient Milton Camejo MD Work Phone: [facility] Cristh[facility] [place] [facility] Start: 10-23-2023 Non-patient / Non-visit JR Heike lopez Valtommie Work Phone: [facility] Cardiology Work Phone: Start: 10-20-2023 Non-patient / Non-visit JR Heike Raymundo Work Phone: [facility] Physician [facility] Gastroenterology Work Phone: Start: 10-20-2023 Non-patient / Non-visit JR Heike Raymundo Work Phone: [facility] Physician [facility] Nephrology Work Phone: Start: 10-19-2023 End: 10-26-2023 Evaluation and management of inpatient JR Al Raymundo Work Phone: [facility] [place] [facility] Work Phone: Start: 10-13-2023 End: 10-13-2023 Office outpatient visit 25 minutes Joby Pinedo MD Work Phone: [facility] Comment on above: Chronic systolic hea rt failure (Multi) (Primary Dx); Persistent atrial fibrillation (Multi); Nonrheumatic aortic valve stenosis; Pulmonary hypertension (Multi); History of transcatheter aortic valve replacement (TAVR); Primary hypertension; Hypercholesteremia; BMI 30.0-30.9,adult; Bradycardia; Dilated cardiomyopathy (Multi); Edema, unspecified type Start: 10-13-2023 End: 10-13-2023 ambulatory [facility] Ambulatory Start: 10-06-2023 End: 10-06-2023 Subsequent hospital visit by physician [facility] Comment on above: Nonrheumatic aortic valve stenosis Start: 09-22-2023 End: 09-22-2023 ambulatory JR Al Raymundo Work Phone: [facility] Work Phone: Start: 09-22-2023 End: 09-22-2023 Patient encounter procedure JR Al Raymundo Work Phone: [facility] [address] [place] Work Phone: Start: 09-09-2023 End: 09-15-2023 Evaluation and management of inpatient JR Al Raymundo Work Phone: [facility] [place] [facility] Work Phone: Start: 08-24-2023 End: 08-24-2023 ambulatory DEWEY CHAMORRO Not Available Start: 07-07-2023 End: 07-07-2023 ambulatory JR Al Raymundo Work Phone: [facility] Work Phone: Start: 07-07-2023 End: 07-07-2023 Patient encounter procedure JR Al Raymundo Work Phone: [facility] [place] Work Phone: Start: 07-01-2023 End: 07-01-2023 Subsequent hospital visit by physician Nicole Kelly Ri Admin Room 1 [facility] Comment on above: Shortness of breath Start: 07-01-2023 End: 07-01-2023 ambulatory JOBY PINEDO [facility] Start: 06-23-2023 End: 06-23-2023 ambulatory JR Al Raymundo Work Phone: [facility] Work Phone: Start: 06-23-2023 End: 06-23-2023 Patient encounter procedure JR Al Raymundo Work Phone: [facility]-Pacemaker Check Start: 06-23-2023 End: 06-23-2023 Office outpatient visit 25 minutes Joby Pinedo MD Work Phone: [facility] Comment on above: Persistent atrial fi brillation (CMS/HCC) (Primary Dx); Bradycardia; Cardiac pacemaker; Abnormal ECG; Primary hypertension; Hypercholesteremia; 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; Shortness of breath Start: 03-12-2023 End: 03-13-2023 Admission to same day surgery center PHYSICIAN TISHA [facility] [place] Start: 03-12-2023 End: 03-13-2023 ambulatory PHYSICIAN TISHA [facility] Work Phone: Start: 03-10-2023 End: 03-10-2023 ambulatory PHYSICIAN NO [facility] Work Phone: Start: 03-10-2023 End: 03-10-2023 Patient encounter procedure PHYSICIAN NO [facility] [employer] [facility] Work Phone: Start: 03-09-2023 End: 03-09-2023 ambulatory [facility] Start: 02-26-2023 End: 02-26-2023 ambulatory [facility] Start: 02-26-2023 End: 02-26-2023 Subsequent hospital visit by physician Nicole Soler Echo/Vasc Room 2 [facility] Comment on above: Persistent atrial fi brillation (CMS/HCC); Bradycardia; Chronic systolic heart failure (CMS/HCC); Hypertension, unspecified type Start: 02-23-2023 End: 02-23-2023 Office outpatient new 60 minutes Joby Pinedo MD Work Phone: [facility] Comment on above: Bradycardia (Primary Dx); Persistent atrial fibrillation (CMS/HCC); nursing home current use of 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 therapy; Chronic systolic heart failure (CMS/HCC); Hypertension, unspecified type; Type 2 diabetes mellitus without complication, unspecified whether fpc insulin use (CMS/HCC); Heart failure, unspecified HF chronicity, unspecified heart failure type (CMS/HCC); Abnormal ECG; Immunosuppression (CMS/HCC); Permanent atrial fibrillation (CMS/HCC) Start: 01-28-2023 End: 01-28-2023 ambulatory PHYSICIAN TISHA [facility] Work Phone: Start: 01-28-2023 End: 01-28-2023 Patient encounter [address] [facility]YSICIAN [facility] [address] Work Phone: Start: 2022 End: 2022 ambulatory PHYSICIAN NO [facility] Work Phone: Start: 2022 End: 2022 Patient encounter procedure PHYSICIAN NO FAMILY [facility] [address] Work Phone: Start: 07-21-2022 End: 07-22-2022 ambulatory Yovany AVILA Facility: [facility] Start: 07-21-2022 End: 07-21-2022 Patient encounter procedure Yovany Jessica ALANNAL [facility] [place] Start: 07-08-2022 End: 07-09-[address] YOVANY AVILA . Facility: Start: 06-16-2022 End: 06-16-2022 ambulatory MD Solomon Bolton Work Phone: [facility] Work Phone: Start: 06-16-2022 End: 06-16-2022 Patient encounter procedure MD Solomon Bolton Work Phone: [facility] [address] Work Phone: Start: 06-03-2022 End: 06-04-2022 ambulatory Yovany Lopez MARGARITA Facility: [place] Start: 06-03-2022 End: 06-03-2022 Patient encounter procedure Yovany AVILA General Surgery [facility] Start: 05-20-2022 ambulatory AL RAYMUNDO Facility : [place] Start: 04-21-2022 End: 04-21-2022 ambulatory MD Solomon Bolton Work Phone: [facility] Work Phone: Start: 04-21-2022 End: 04-21-2022 Patient encounter procedure MD Solomon Bolton Work Phone: [facility] [place] Work Phone: Start: 12-09-2021 End: 12-09-2021 Patient encounter procedure DO Kelvin Fu Jr Work Phone: [facility] [address] Start: 10-22-2021 End: 10-22-2021 ambulatory NAYAN COLON . Facility: Start: 10-02-2021 End: 10-02-2021 Departed Referred JR Al Raymundo Work Phone: [facility] [place] Start: 08-07-2021 End: 08-07-2021 Patient encounter procedure JR Al Raymundo Work Phone: [facility] [address] Start: 08-22-2020 End: 08-22-2020 Patient encounter procedure Al Raymundo Work Phone: -[facility] [address] Start: 06-26-2020 End: 06-26-2020 Patient encounter procedure Al Raymundo -[facility] [address] Procedures Date Procedure Procedure Detail Performing Clinician Start: 07-12-2024 Ecg routine ecg w/least 12 lds w/i&r Joyb Pinedo MD Work Phone: Start: 11-13-2023 Glucose quantitative blood xcpt reagent strip Milton Camejo MD Work Phone: Start: 11-13-2023 Echo transthorc r-t 2d w/wo m-mode rec f-up/lmtd Caron León MD Work Phone: Start: 11-13-2023 Comprehensive metabolic panel Caron multani MD Work Phone: Start: 11-13-2023 End: 11-13-2023 Heparin assay Andra Molina 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 Work Phone: Start: 11-12-2023 Glucose quantitative blood xcpt reagent strip Milton Camejo MD Work Phone: Start: 11-12-2023 Glucose quantitative blood xcpt reagent strip Milton Camejo MD Work Phone: Start: 11-12-2023 Ecg routine ecg w/least 12 lds trcg only w/o i&r Andra Molina 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 Work Phone: Start: 11-12-2023 End: 11-13-2023 Renal function panel Andra Teja Molina 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 Work Phone: Start: 11-12-2023 Echo transthorc r-t 2d w/wo m-mode rec f-up/lmtd Andra A Molina 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 Work Phone: Start: 11-12-2023 Ecg routine ecg w/least 12 lds trcg only w/o i&r Andra Teja Molina 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 Work Phone: Start: 11-12-2023 Glucose quantitative blood xcpt reagent strip Waldo Saeed MD Work Phone: Start: 11-12-2023 PULSE OXIMETRY, SPOT Andra A Molina 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 Work Phone: Start: 11-12-2023 PULSE OXIMETRY, SPOT Andra A Molina 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 Work Phone: Start: 11-12-2023 PULSE OXIMETRY, SPOT Andra A Molina 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 Work Phone: Start: 11-11-2023 PULSE OXIMETRY, SPOT Andra A Molina 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 Work Phone: Start: 11-11-2023 Renal function panel Andra Teja Molina 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 Work Phone: Start: 11-11-2023 PULSE OXIMETRY, SPOT Andra A Molina 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 Work Phone: Start: 11-11-2023 Glucose quantitative blood xcpt reagent strip Waldo Saeed MD Work Phone: Start: 11-11-2023 Glucose quantitative blood xcpt reagent strip Waldo Saeed MD Work Phone: Start: 11-11-2023 PULSE OXIMETRY, SPOT Andra A Molina 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 Work Phone: Start: 11-11-2023 Blood typing serologic rh (d) Holden hill PA-C Work Phone: Start: 11-11-2023 PULSE OXIMETRY, SPOT Andra A Molina 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 Work Phone: Start: 11-11-2023 Glucose quantitative blood xcpt reagent strip Waldo Saeed MD Work Phone: Start: 11-11-2023 Heparin assay Andra A Molina 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 Work Phone: Start: 11-11-2023 PULSE OXIMETRY, SPOT Andra A Molina 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 Work Phone: Start: 11-11-2023 PULSE OXIMETRY, SPOT Andra A Molina 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 Work Phone: Start: 11-10-2023 Glucose quantitative blood xcpt reagent strip Waldo Saeed MD Work Phone: Start: 11-10-2023 PULSE OXIMETRY, SPOT Andra A Molina 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 Work Phone: Start: 11-10-2023 Renal function panel Andra A Molina 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 Work Phone: Start: 11-10-2023 Glucose quantitative blood xcpt reagent strip Waldo Saeed MD Work Phone: Start: 11-10-2023 PULSE OXIMETRY, SPOT Andra A Molina 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 Work Phone: Start: 11-10-2023 PULSE OXIMETRY, SPOT Andra A Molina 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 Work Phone: Start: 11-10-2023 Glucose quantitative blood xcpt reagent strip Waldo Saeed MD Work Phone: Start: 11-10-2023 End: 11-10-2023 Renal function panel Holden Ornelas PA-C Work Phone: Start: 11-10-2023 PULSE OXIMETRY, SPOT Andra A Molina 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 Work Phone: Start: 11-10-2023 PULSE OXIMETRY, SPOT Andra A Molina 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 Work Phone: Start: 11-10-2023 PULSE OXIMETRY, SPOT Andra A Molina 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 Work Phone: Start: 11-09-2023 Glucose quantitative blood xcpt reagent strip Cody Medeiros MD Work Phone: Start: 11-09-2023 PULSE OXIMETRY, SPOT Andra A Molina 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 Work Phone: Start: 11-09-2023 PULSE OXIMETRY, SPOT Andra A Molina 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 Work Phone: Start: 11-09-2023 Glucose quantitative blood xcpt reagent strip Cody Medeiros MD Work Phone: Start: 11-09-2023 Glucose quantitative blood xcpt reagent strip Cody Medeiros MD Work Phone: Start: 11-09-2023 PULSE OXIMETRY, SPOT Andra A Molina 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 Work Phone: Start: 11-09-2023 End: 11-09-2023 Heparin assay Andra A Molina 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 Work Phone: Start: 11-09-2023 PULSE OXIMETRY, SPOT Andra A Molina 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 Work Phone: Start: 11-09-2023 PULSE OXIMETRY, SPOT Andra A Molina 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 Work Phone: Start: 11-09-2023 PULSE OXIMETRY, SPOT Andra A Molina 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 Work Phone: Start: 11-08-2023 Glucose quantitative blood xcpt reagent strip Cody Medeiros MD Work Phone: Start: 11-08-2023 PULSE OXIMETRY, SPOT Andra A Molina 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 Work Phone: Start: 11-08-2023 Renal function panel Andra A Molina 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 Work Phone: Start: 11-08-2023 Glucose quantitative blood xcpt reagent strip Cody Medeiros MD Work Phone: Start: 11-08-2023 PULSE OXIMETRY, SPOT Andra A Molina 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 Work Phone: Start: 11-08-2023 PULSE OXIMETRY, SPOT Andra A Molina 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 Work Phone: Start: 11-08-2023 Glucose quantitative blood xcpt reagent strip Cody Medeiros MD Work Phone: Start: 11-08-2023 End: 11-08-2023 Renal function panel Micah Mccallum 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 Work Phone: Start: 11-08-2023 PULSE OXIMETRY, SPOT Andra A Molina 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 Work Phone: Start: 11-08-2023 PULSE OXIMETRY, SPOT Andra A Molina 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 Work Phone: Start: 11-08-2023 PULSE OXIMETRY, SPOT Andra A Molina 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 Work Phone: Start: 11-07-2023 Glucose quantitative blood xcpt reagent strip Remi Marie MD MPH Work Phone: Start: 11-07-2023 PULSE OXIMETRY, SPOT Andra A Molina 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 Work Phone: Start: 11-07-2023 Renal function panel Andra A Molina 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 Work Phone: Start: 11-07-2023 Glucose quantitative blood xcpt reagent strip Remi Marie MD MPH Work Phone: Start: 11-07-2023 PULSE OXIMETRY, SPOT Andra A Molina 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 Work Phone: Start: 11-07-2023 PULSE OXIMETRY, SPOT Andra A Molina 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 Work Phone: Start: 11-07-2023 Glucose quantitative blood xcpt reagent strip Remi Marie MD MPH Work Phone: Start: 11-07-2023 End: 11-07-2023 Heparin assay Andra A Molina 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 Work Phone: Start: 11-07-2023 PULSE OXIMETRY, SPOT Andra A Molina 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 Work Phone: Start: 11-07-2023 PULSE OXIMETRY, SPOT Andra A Molina 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 Work Phone: Start: 11-07-2023 PULSE OXIMETRY, SPOT Andra A Molina 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 Work Phone: Start: 11-06-2023 Glucose quantitative blood xcpt reagent strip Remi Marie MD MPH Work Phone: Start: 11-06-2023 PULSE OXIMETRY, SPOT Andra A Molina 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 Work Phone: Start: 11-06-2023 Renal function panel Andra A Molina 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 Work Phone: Start: 11-06-2023 PULSE OXIMETRY, SPOT Andra A Molina 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 Work Phone: Start: 11-06-2023 Glucose quantitative blood xcpt reagent strip Remi Marie MD MPH Work Phone: Start: 11-06-2023 PULSE OXIMETRY, SPOT Andra A Molina 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 Work Phone: Start: 11-06-2023 Glucose quantitative blood xcpt reagent strip Remi Marie MD MPH Work Phone: Start: 11-06-2023 PULSE OXIMETRY, SPOT Andra A Molina 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 Work Phone: Start: 11-06-2023 End: 11-06-2023 Blood count complete automated Trupti Foss PA-C Work Phone: Start: 11-06-2023 PULSE OXIMETRY, SPOT Andra A Molina 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 Work Phone: Start: 11-06-2023 PULSE OXIMETRY, SPOT Andra A Molina 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 Work Phone: Start: 11-05-2023 Glucose quantitative blood xcpt reagent strip Guerita Molina MD PhD Work Phone: Start: 11-05-2023 PULSE OXIMETRY, SPOT Andra A Molina 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 Work Phone: Start: 11-05-2023 End: 11-05-2023 Renal function panel Andra A Molina 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 Work Phone: Start: 11-05-2023 PULSE OXIMETRY, SPOT Andra A Molina 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 Work Phone: Start: 11-05-2023 End: 11-05-2023 Heparin assay Andra A Molina 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 Work Phone: Start: 11-05-2023 PULSE OXIMETRY, SPOT Andra A Molina 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 Work Phone: Start: 11-05-2023 End: 11-05-2023 Heparin assay Andra A Molina 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 Work Phone: Start: 11-05-2023 PULSE OXIMETRY, SPOT Andra A Molina 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 Work Phone: Start: 11-05-2023 Heparin assay Andra A Molina 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 Work Phone: Start: 11-04-2023 PULSE OXIMETRY, SPOT Andra A Molina 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 Work Phone: Start: 11-04-2023 End: 11-04-2023 Renal function panel Andra A Molina 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 Work Phone: Start: 11-04-2023 PULSE OXIMETRY, SPOT Andra A Molina 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 Work Phone: Start: 11-04-2023 End: 11-04-2023 Heparin assay Trupti Foss PA-C Work Phone: Start: 11-04-2023 PULSE OXIMETRY, SPOT Andra A Molina 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 Work Phone: Start: 11-04-2023 Glucose quantitative blood xcpt reagent strip Guerita Molina MD PhD Work Phone: Start: 11-04-2023 PULSE OXIMETRY, SPOT Andra Teja Molina 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 Work Phone: Start: 11-04-2023 Glucose quantitative blood xcpt reagent strip Guerita Molina MD PhD Work Phone: Start: 11-04-2023 PULSE OXIMETRY, SPOT Andra A Molina 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 Work Phone: Start: 11-04-2023 PULSE OXIMETRY, SPOT Andra A Molina 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 Work Phone: Start: 11-03-2023 Glucose quantitative blood xcpt reagent strip Guerita Molina MD PhD Work Phone: Start: 11-03-2023 PULSE OXIMETRY, SPOT Andra A Molina 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 Work Phone: Start: 11-03-2023 Renal function panel Andra A Molina 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 Work Phone: Start: 11-03-2023 PULSE OXIMETRY, SPOT Andra A Molina 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 Work Phone: Start: 11-03-2023 Glucose quantitative blood xcpt reagent strip Guerita Molina MD PhD Work Phone: Start: 11-03-2023 Glucose quantitative blood xcpt reagent strip Guerita Molina MD PhD Work Phone: Start: 11-03-2023 PULSE OXIMETRY, SPOT Andra A Molina 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 Work Phone: Start: 11-03-2023 Esophagogastroduodenoscopy transoral diagnostic Sera Lalito CABRERA Work Phone: Start: 11-03-2023 Susana-px dev eval pm/ldls pm phys/qhp in person Fela Dsouza MD Work Phone: Start: 11-03-2023 PULSE OXIMETRY, SPOT Andra A Molina 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 Work Phone: Start: 11-03-2023 Glucose quantitative blood xcpt reagent strip Gueirta Molina MD PhD Work Phone: Start: 11-03-2023 PULSE OXIMETRY, SPOT Andra A Molina 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 Work Phone: Start: 11-02-2023 Glucose quantitative blood xcpt reagent strip Guerita Molina MD PhD Work Phone: Start: 11-02-2023 PULSE OXIMETRY, SPOT Andra A Molina 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 Work Phone: Start: 11-02-2023 End: 11-02-2023 Renal function panel Andra A Molina 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 Work Phone: Start: 11-02-2023 PULSE OXIMETRY, SPOT Andra A Molina 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 Work Phone: Start: 11-02-2023 End: 11-02-2023 Cyanocobalamin vitamin b-12 Trupti poe PA-C Work Phone: Start: 11-02-2023 PULSE OXIMETRY, SPOT Andra A Molina 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 Work Phone: Start: 11-02-2023 Glucose quantitative blood xcpt reagent strip Guerita Molina MD PhD Work Phone: Start: 11-02-2023 PULSE OXIMETRY, SPOT Andra A Molina 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 Work Phone: Start: 11-02-2023 PULSE OXIMETRY, SPOT Andra A Molina 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 Work Phone: Start: 11-02-2023 PULSE OXIMETRY, SPOT Andra A Molina 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 Work Phone: Start: 11-01-2023 Glucose quantitative blood xcpt reagent strip Guerita Molina MD PhD Work Phone: Start: 11-01-2023 PULSE OXIMETRY, SPOT Andra A Molina 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 Work Phone: Start: 11-01-2023 Radiologic exam chest 2 views Micah tirado 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 Work Phone: Start: 11-01-2023 Blood typing serologic rh (d) Micah tirado 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 Work Phone: Start: 11-01-2023 Renal function panel Andra Teja Molina 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 Work Phone: Start: 11-01-2023 Ecg routine ecg w/least 12 lds trcg only w/o i&r Micah Mccallum 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 Work Phone: Start: 11-01-2023 End: 11-01-2023 PULSE OXIMETRY, SPOT Andrasanto Molina 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 Work Phone: Start: 11-01-2023 Thyrotropin [Units/volume] in [...] DTaP/Tdap/Td Vaccines (3 - Td or Tdap) [facility] Start: 10-25-2030 [facility] Start: 04-12-2025 End: 04-12-2025 Patient encounter procedure 04/12/2025 1:40 PM EST Office Visit [facility] [address] [place] [address] Joby Pinedo MD [address] [place] [address] [facility] Start: 01-11-2025 Echocardiography Echocardiogram [facility] Start: 11-27-2024 Influenza vaccination [facility] Start: 11-13-2024 [facility] Start: 11-12-2024 Creatinine measurement [facility] Start: 11-12-2024 Echocardiography Echocardiogram [facility] Start: 11-12-2024 Potassium measurement [facility] Start: 11-11-2024 [facility] Start: 11-10-2024 End: 11-10-2025 Heart Transthoracic Transthoracic echo (TTE) complete Echocardiography Routine S/P TAVR (transcatheter aortic valve replacement) Expected: 11/10/2024, Expires: 11/10/2025 [facility] Service Area Work Phone: Comment on above: Expected: 11/10/2024, Expires: Start: 11-10-2024 End: 11-10-2024 ambulatory [facility] Start: 11-10-2024 End: 11-10-2024 Telemedicine consultation with patient 11/10/2024 9:00 AM EDT Telemedicine Clinical Support [facility] [address] [place] [id number] [facility] Start: 10-31-2024 Thyroid stimulating hormone measurement [facility] Start: 09-12-2024 Echocardiography Echocardiogram [facility] Start: 07-12-2024 End: 07-12-2024 Patient encounter procedure 07/12/2024 3:30 PM EDT Office Visit [facility] [address] [place] [address] Joby Pinedo MD [address] [place] [address] [facility] Start: 06-20-2024 End: 06-20-2024 Patient encounter procedure 06/20/2024 2:45 PM EDT Office Visit [facility] [address] [place] [phone] Dewey Chamorro, DO [address] [place] [address] [facility] Start: 05-30-2024 End: 05-30-2024 Patient encounter procedure 05/30/2024 2:45 PM EST Office Visit [facility] [address] [place] [address] Dewey Chamorro, DO [address] [place] [address] [facility] Start: 05-02-2024 End: 05-02-2024 Patient encounter procedure 05/02/2024 2:45 PM EST Office Visit [facility] [address] [place] [address] Dewey Chamorro, DO [address] [place] [address] [facility] Start: 02-27-2024 Echocardiography Echocardiogram [facility] Start: 02-01-2024 Hemoglobin A1c measurement [facility] Start: 01-25-2024 End: 01-25-2024 ambulatory [facility] Start: 01-25-2024 End: 01-25-2024 Patient encounter procedure 01/25/2024 2:10 PM EDT Office Visit [facility] [address] [place] [phone] Joby Pinedo MD [address] [place] [address] [facility] Start: 12-16-2023 End: 12-16-2023 ambulatory [facility] Start: 12-13-2023 End: 01-12-2024 US Heart Transthoracic [facility] Work Phone: Start: 11-28-2023 COVID-19 Vaccine () COVID-19 Vaccine () [facility] Start: 11-28-2023 Influenza vaccination [facility] Start: 11-17-2023 End: 02-12-2024 Basic metabolic 2000 panel - Serum or Plasma [facility] Work Phone: Start: 11-17-2023 End: 02-12-2024 CBC panel - Blood by Automated count [facility] Work Phone: Start: 10-26-2023 [facility] Start: 10-20-2023 Comprehensive metabolic 2000 panel - Serum or Plasma [facility] Start: 10-20-2023 [facility] Start: 10-19-2023 Referral to plastic cutter [facility] Start: 10-19-2023 Referral to sewer bricklayer [facility] Start: 10-19-2023 Hospital admission [facility] Start: 10-19-2023 Physical therapy procedure [facility] Start: 10-19-2023 Referral to dag coater [facility] Start: 10-19-2023 Referral to occupational therapist [facility] Start: 10-19-2023 [facility] Start: 10-19-2023 [facility] Start: 10-13-2023 End: 10-13-2023 Patient encounter procedure 10/13/2023 3:30 PM EDT Office Visit [place] [id number] [place] [address] Joby Pinedo MD [address] [facility] [address] [place] [address] [facility] Start: 10-13-2023 End: 10-12-2024 Basic metabolic 2000 panel - Serum or Plasma Basic Metabolic Panel Lab Routine Dilated cardiomyopathy (Multi) Edema, unspecified type Expected: 10/13/2023 (Approximate), Expires: 10/12/2024 [facility] Work Phone: Comment on above: Expected: 10/13/2023 (Approximate), Expi res: 10/12/2024 Start: 10-13-2023 End: 10-12-2025 Heart Transthoracic Transthoracic Echo Complete Echocardiography Routine Nonrheumatic aortic valve stenosis Pulmonary hypertension (Multi) Expected: 10/13/2023 (Approximate), Expires: 10/12/2025 [facility] Service Area Work Phone: Comment on above: Expected: 10/13/2023 (Approximate), Expi res: 10/12/2025 Start: 09-20-2023 [facility] Start: 09-19-2023 [facility] Start: 09-18-2023 [facility] Start: 09-17-2023 [facility] Start: 09-16-2023 End: 09-16-2023 Patient encounter procedure 09/16/2023 3:30 PM EDT Office Visit [facility] [address] [place] [address] Joby Pinedo MD [address] [facility] [address] [place] [address] [facility] Start: 09-16-2023 [facility] Start: 09-15-2023 End: 09-15-2023 [facility] Start: 09-14-2023 End: 09-14-2023 [facility] Start: 09-13-2023 [facility] Start: 09-12-2023 [facility] Start: 09-11-2023 [facility] Start: 09-10-2023 [facility] Start: 09-09-2023 [facility] Start: 09-09-2023 [facility] Start: 09-09-2023 [facility] Start: 09-09-2023 Fluoroscopy of Left Heart using Low Osmolar Contrast Fluoroscopy of Left Heart using Low Osmolar Contrast [facility] Start: 09-09-2023 Fluoroscopy of Multiple Coronary Arteries using Low Osmolar Contrast Fluoroscopy of Multiple Coronary Arteries using Low Osmolar Contrast [facility] Start: 09-09-2023 Measurement of Cardiac Sampling and Pressure, Left Heart, Percutaneous Approach Measurement of Cardiac Sampling and Pressure, Left Heart, Percutaneous Approach [facility] Start: 09-09-2023 Hospital admission [facility] Start: 09-09-2023 Referral to plastic cutter [facility] Start: 09-09-2023 [facility] Start: 07-07-2023 End: 06-22-2024 Basic metabolic 2000 panel - Serum or Plasma Basic Metabolic Panel Lab Routine Shortness of breath Expected: 07/07/2023 (Approximate), Expires: 06/22/2024 [facility] Work Phone: Comment on above: Expected: 07/07/2023 (Approximate), Expi res: 06/22/2024 Start: 07-01-2023 End: 07-01-2023 Patient encounter procedure 07/01/2023 10:15 AM EDT Appointment [facility] [address] [address] [facility] Start: 07-01-2023 End: 07-01-2023 [facility] Start: 06-23-2023 End: 06-22-2025 NM Heart Perfusion W stress and W radionuclide IV Nuclear Stress Test Cardiac Nuclear Medicine Routine Shortness of breath Expected: 06/23/2023 (Approximate), Expires: 06/22/2025 [facility] Service Area Work Phone: Comment on above: Expected: 06/23/2023 (Approximate), Expi res: 06/22/2025 Start: 05-20-2023 COVID-19 Vaccine ( season) COVID-19 Vaccine () [facility] Start: 05-20-2023 COVID-19 Vaccine () COVID-19 Vaccine () [facility] Start: 05-20-2023 [facility] Start: 04-29-2023 End: 04-29-2023 Patient encounter procedure 04/29/2023 2:30 PM EST Office Visit [address] [place] [address] Joby Pinedo MD [address] [facility] [address] [place] [address] [facility] Start: 03-13-2023 [facility] Start: 03-13-2023 [facility] Start: 03-13-2023 Hospital admission [facility] Start: 03-12-2023 [facility] Start: 02-26-2023 End: 02-26-2023 Patient encounter procedure 02/26/2023 7:45 AM EST Appointment [address] [place] [address] [facility] Start: 02-23-2023 End: 02-23-2025 US Heart Transthoracic Transthoracic Echo (TTE) Complete Echocardiography Routine Persistent atrial fibrillation (CMS/HCC) Bradycardia Chronic systolic heart failure (CMS/HCC) Hypertension, unspecified type Expected: 02/23/2023 (Approximate), Expires: 02/23/2025 [facility] Service Area Work Phone: Comment on above: Expected: 02/23/2023 (Approximate), Expi res: 02/23/2025 Start: 09-01-2023 Influenza vaccination Influenza Vaccine (#1) [facility] Start: 04-28-2022 COVID-19 Vaccine (5 - Pfizer risk series) COVID-19 Vaccine (5 - Pfizer risk series) [facility] Start: 2016 RSV High Risk: (Elderly (60+) or Population) (1 - 1-dose 75+ series) RSV High Risk: (Elderly (60+) or Population) (1 - 1-dose 75+ series) [facility] Start: 2006 Pneumococcal Vaccine: 65+ Years (1 of 1 - PCV) Pneumococcal Vaccine: 65+ Years (1 of 1 - PCV) [facility] Start: 2001 RSV patients and/or patients aged 60+ years (1 - 1-dose 60+ series) RSV patients and/or patients aged 60+ years (1 - 1-dose 60+ series) [facility] Start: 2001 [facility] Start: 1960 Pneumococcal vaccination Pneumococcal Vaccine (1 of 2 - PCV) [facility] Start: 1960 Urine screening for protein [facility] Start: 1960 Zoster Vaccines (1 of 2) Zoster Vaccines (1 of 2) [facility] Start: 1960 [facility] Start: 10-08-1951 Diabetic foot examination Diabetes: Foot Exam [facility] Start: 10-08-1951 Glaucoma screening [facility] Start: 10-08-1947 Pneumococcal Vaccine: 65+ Years (1 - PCV) Pneumococcal Vaccine: 65+ Years (1 - PCV) [facility] Start: 10-08-1947 Pneumococcal Vaccine: 65+ Years (1 of 2 - PCV) Pneumococcal Vaccine: 65+ Years (1 of 2 - PCV) [facility] Start: 10-08-1947 [facility] Start: 1941 Creatinine measurement Creatinine Level [facility] Start: 1941 Hemoglobin A1c measurement Diabetes: Hemoglobin A1C [facility] Start: 1941 Lipid panel [facility] Start: 1941 Medicare Annual Wellness Visit [facility] Start: 1941 Potassium measurement Potassium Level [facility] Start: 1941 Thyroid stimulating hormone measurement TSH Level [facility] Start: 1941 Urine screening for protein Diabetes: Urine Protein Screening [facility] End: 11-12-2023 Cardiac catheterization study [facility] Work Phone: Cardiac catheterizat ion study [facility] Work Phone: CBC panel - Blood by Automated count [facility] Work Phone: ECG 12 lead [facility] Work Phone: Electrocardiogram, 1 2-lead PRN ACS symptoms [facility] Work Phone: Electrocardiogram, 1 2-lead PRN ACS symptoms [facility] Work Phone: Glucose [Mass/volume ] in Serum or Plasma [facility] Work Phone: End: 11-04-2023 Hemoglobin.gastrointestinal [Presence] in Stool --1st specimen [facility] Work Phone: Heparin unfractionat ed [Units/volume] in Platelet poor plasma by Chromogenic method [facility] Work Phone: Magnesium [Mass/volu me] in Serum or Plasma [facility] Work Phone: End: 07-01-2023 NM Heart Perfusion W stress and W radionuclide IV [facility] Work Phone: Comment on above: Once for 1 Occurrences starting 07/01/19 24 until 07/01/2023 Patient Education [facility] Work Phone: Patient referral [facility] Work Phone: Pulse oximetry, spot [facility] Work Phone: Renal function 2000 panel - Serum or Plasma [facility] Work Phone: End: 01-12-2024 US Heart Transthoracic [facility] Work Phone: Comment on above: Once for 1 Occurrences starting 01/12/20 24 until 01/12/2024 End: 11-13-2023 XR Chest Single view [facility] Service Area Work Phone: Immunizations Immunization Date Immunization Notes Care Provider Omid samlon 03-03-2022 COVID-19 (Pfizer) Bivalent Booster, Age 12Y+ JR Al Raymundo Work Phone: [facility] 03-03-2022 SARS-CoV-2 (COVID-19 ) [id number] Yovany MONDRAGONL [facility] 12-27-2021 influenza virus vaccine, unspecified formulation Yovany NILL [facility] 06-11-2021 COVID-19 (Moderna), Age 12+ JR Al Raymundo Work Phone: [facility] 06-11-2021 SARS-CoV-2 (COVID-19 ) mRNA-1273 vaccine Yovany NILL [facility] 02-06-2021 COVID-19 (Pfizer) JR Al Raymundo Work Phone: [facility] 02-06-2021 SARS-CoV-2 (COVID-19 ) mRNA BNT-162b2 vax Yovany NILL [facility] 10-25-2020 diphtheria, tetanus toxoids and pertussis vaccine Joby Pinedo MD Work Phone: [facility] Work Phone: 06-14-2020 COVID-19 (Pfizer) JR Al Raymundo Work Phone: [facility] 06-14-2020 SARS-CoV-2 (COVID-19 ) mRNA BNT-162b2 vax Yovany NILL [facility] 05-24-2020 COVID-19 (Pfizer) Al Raymundo Work Phone: [facility] 05-24-2020 SARS-CoV-2 (COVID-19 ) mRNA BNT-162b2 vax Yovany AVILA [facility] 02-05-2017 tetanus and diphther ia toxoids, adsorbed, preservative free, for adult use (5 Lf of tetanus toxoid and 2 Lf of diphtheria toxoid) JR Al Raymundo Work Phone: [facility] 02-05-2017 tetanus toxoid, reduced diphtheria toxoid, and acellular pertussis vaccine, adsorbed Joby Pinedo MD Work Phone: [facility] Work Phone: 03-25-2009 novel [id number], preservative-free, injectable Joby Pinedo MD Work Phone: [facility] Work Phone: 03-25-2009 influenza virus vaccine, unspecified formulation Joby Pinedo MD Work Phone: [facility] Work Phone: Payers Date Payer Category Payer Self-pay [id number] 2022 Medicare supplementa l policy (as second payer) [facility] [id number]. [id number] 2022 Private Health Insurance [id number] .[id number]. [id number] 2022 Unknown [id number]. 1.13.647. 2.7.3.822758.315 2006 Medicare 1.2.840.335081. 1.13.647. 2.7.3.390554.315 1959 Medicare [id number] 1959 Unknown [id number] 1941 Unknown [id number] 2.16.840.1.967776.3.579. 2.593 1941 Unknown [id number] 2.16.840.1.264327.3.579. 2.593 1941 Unknown [id number] 2.16.840.1.376804.3.579. 2.727 1941 Unknown [id number] 2.16.840.1.219290.3.579. 2.727 1941 Unknown [id number] 2.16.840.1.378647.3.579. 2.727 1941 Unknown [id number] 2.16.840.1.891001.3.579. 2.727 1941 Unknown [id number] 2.16.840.1.442140.3.579. 2.1246 1941 Unknown [id number] 2.16.840.1.898769.3.579. 2.124 1941 Unknown [id number] 2.16.840.1.562147.3.579. 2.124 1941 Unknown [id number] 2.16.840.1.759286.3.579. 2.124 1941 Unknown [id number] 2.16.840.1.453171.3.579. 2.124 1941 Unknown [id number] 2.16.840.1.618268.3.579. 2.124 1942 Unknown [id number] 2.16.840.1.027561.3.579. 2.1245 1941 Unknown [id number] 2.16.840.1.467074.3.579. 2.1245 1941 Unknown [id number] 2.16.840.1.434670.3.579. 2.1258 1941 Unknown [id number] 2.16.840.1.503850.3.579. 2.1258 1941 Unknown [id number] 2.16.840.1.907723.3.579. 2.1258 1941 Unknown [id number] 2.16.840.1.444823.3.579. 2.1258 1941 Unknown [id number] 2.840.1.625170.3.579. 2.1258 1941 Unknown [id number] 2..840.1.953006.3.579. 2.1243 1941 Unknown [id number] 2.840.1.578030.3.579. 2.1243 1941 Unknown [id number] 2..840.1.945958.3.579. 2.1243 1941 Unknown [id number] 2.840.1.151752.3.579. 2.1245 Unknown [id number] 2.16.840.1.789745.3.579. 2.531 Unknown [id number] 2.16.840.1.018972.3.579. 2.531 Unknown [id number] 2.16.840.1.892268.3.579. 2.531 Unknown [id number] 2.16.840.1.693412.3.579. 2.531 Unknown [id number] 2.16.840.1.032682.3.579. 2.531 Unknown [id number] 2.16.840.1.847101.3.579. 2.531 Unknown [id number] 2.16.840.1.323495.3.579. 2.531 Unknown [id number] 2.16.840.1.320364.3.579. 2.531 Social History Date Type Detail Facility [facility] Start: 1940 Sex Assigned At Male F [facility] Start: 06-03-2022 End: 11-13-2024 Tobacco smoking status Ex-smoker (finding) [facility] Start: 02-05-2023 Tobacco smoking status Never [facility] Start: 02-23-2023 End: 11-01-2023 Sex Assigned At Male Jose Null [facility] End: 03-29-1979 History of tobacco use Current smoker [facility] Work Phone: End: 03-29-1979 History of tobacco use Cigarette Smoker [facility] Work Phone: Start: 02-23-2023 End: 04-11-2024 Tobacco use and exposure Smokeless tobacco non-user [facility] Work Phone: Start: 02-23-2023 End: 01-25-2024 Alcohol intake Current drinker of alcohol (finding) [facility] Work Phone: Start: 02-23-2023 End: 11-01-2023 History of Social function [facility] Start: 1940 Sex Assigned At Not on file [facility] Work Phone: Start: 02-13-2023 End: 07-12-2024 Exposure to SARS-CoV-2 (event) Not sure [facility] Start: 06-23-2023 End: 11-10-2024 Alcohol intake Ex-drinker (finding) [facility] Work Phone: How often to you hav e a drink containing alcohol? Never [facility] In the past 12 month s, was there a time when you were not able to pay the mortgage or rent on time? No [facility] Work Phone: Start: 01-25-2024 Alcohol Comment rarely [facility] Work Phone: Start: 04-08-2024 End: 08-09-2024 Sex Male (finding) [facility] Medical Equipment Procedure Code Equipment Code Equipment Origin al Text Equipment Identifier Dates Insertion, pacemaker Endocardial pacing lead [id number] FDA Start: 03-12-2023 Insertion, pacemaker Single-chamber implantable pacemaker, rate-responsive [id number] FDA Start: 03-12-2023 [id number] Start: 11-12-2023 Goals Date Patient Goal Desired Activity /State Functional Status Date Assessment Result Facility 10-26-2023 Functional status Patient Not at Baseline [facility] Work Phone: 10-19-2023 Functional status Patient Not at Baseline [facility] Work Phone: 09-15-2023 Functional status Patient at Baseline [facility] Work Phone: 09-09-2023 Functional status Patient at Baseline [facility] Work Phone: 03-13-2023 Functional status Patient at Baseline [facility] Work Phone: 06-03-2022 Functional Status N/A [facility] Mental Status Date Assessment Result Facility 10-26-2023 Cognitive function Cognitive Sta tus Patient at Baseline [facility] Work Phone: 10-19-2023 Cognitive function Cognitive Sta tus Patient at Baseline [facility] Work Phone: 09-15-2023 Cognitive function Cognitive Sta tus Patient at Baseline [facility] Work Phone: 09-09-2023 Cognitive function Cognitive Sta tus Patient at Baseline [facility] Work Phone: 03-13-2023 Cognitive function Cognitive Sta tus Patient at Baseline [facility] Work Phone: Clinical Notes 05-07-2020 to 11-10-2024 Medardo Teja 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, 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 - 11/10/2024 9:00 AM Jet Pinedo MD [...] Transthoracic echo (TTE) complete Result Date: 01/17/[address], [address] [address] TRANSTHORACIC ECHOCARDIOGRAM REPORT Patient Name: SHAHID SANCHEZ Reading Physician: [id number] Joby Pinedo MD Study Date: 01/12/2024 Ordering Provider: [id number] MOLINA MRN/PID: [id number] Fellow: Nurse: Date of /Age: 7 1940 / 83 years Insurance Adjustor: Wen Ron RDCS, [place], RVT Gender: M Additional Staff: Height: 180.34 cm Admit Date: Weight: 90.27 kg Admission Status: Outpatient BSA / BMI: 2.10 m2 / 27.76 Department Location: [facility] kg/[address] Blood Pressure: 134 /62 mmHg Study Type: TRANSTHORACIC ECHO (TTE) COMPLETE Diagnosis/ICD: 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 Evolut FX #34, HX , AFib, CAD, CHF, HTN, DM, Pacemaker, Dilated CM, CPT Codes: Echo Complete w Full Doppler-65812 Study Detail: The following Echo studies were [...] 0.7 m/s (0.6-0.9m/s) PV Max P.2 mmHg [id number] Joby Pinedo MD Electronically signed on 01/17/2024 at 3:44:31 PM Final Transthoracic Echo (TTE) Limited Result Date: 11/15/2023 [facility], [address] [place] [address] and TRANSTHORACIC ECHOCARDIOGRAM REPORT Patient Name: SHAHID SANCHEZ Reading Physician: [id number] Eddie Syed MD Study Date: 11/13/2023 Ordering Provider: [id number] CARON LEÓN MRN/PID: [id number] Fellow: Nurse: Jill Painter RN Date of /Age: 7 1940 / 83 years Insurance Adjustor: Lulú Allen [facility] Gender: M Additional Staff: Height: 180.34 cm Admit Date: 11/11/2023 Weight: 90.26 kg Admission Status: Inpatient - Priority discharge BSA / BMI: 2.10 m2 / 27.75 kg/m2 Blood Pressure: 139/51 mmHg Department Location: [facility] Non Invasive Study Type: TRANSTHORACIC ECHO (TTE) LIMITED Diagnosis/ICD: Nonrheumatic aortic (valve) stenosis-I35.0 Indication: S/P TAVR CPT Code: Echo Limited-63218; Doppler Limited-54917; Color Doppler-73471 Patient History: Diabetes: Yes Pertinent History: A-Fib, [...] an FDA cleared automated machine learning algorithm (AvensoGo Heart Failure by [employer]), the analysis of the apical 4-chamber echocardiogram [...] LA Area A4C: 29.0 cm2 LA [place] A4C: 7.1 cm LA Vol A4C: 97.0 [...] TAPSE: 13.0 mm RV s' 0.08 m/s [id number] Eddie Syed MD Electronically signed on 11/13/2023 at 2:51:07 PM Final (Updated) Transthoracic Echo (TTE) Limited Result Date: 11/12/2023 [facility], [address] [place] [address] and TRANSTHORACIC ECHOCARDIOGRAM REPORT Patient Name: SHAHID SANCHEZ Chastity Physician: [id number] Eddie Syed MD Study Date: 11/12/2023 Ordering Provider: [id number] MOLINA MRN/PID: [id number] Fellow: Nurse: Date of /Age: 7 1940 / 83 years Insurance Adjustor: Jena Ag RDCS Gender: M Additional Staff: Height: 180.34 cm Admit Date: Weight: 90.27 kg Admission Status: Inpatient - Routine BSA / BMI: 2.10 m2 / 27.76 kg/m2 Blood Pressure: 132/66 mmHg Department Location: [facility] Ironing Pleater Study Type: TRANSTHORACIC ECHO (TTE) LIMITED Diagnosis/ICD: Nonrheumatic aortic (valve) stenosis-I35.0 Indication: TAVR periprocedure CPT Code: Echo Limited-36475; Doppler Limited-23319; Color Doppler-31039 Patient History: Pertinent History: HTN, DM, HLD, [...] 0.21 AoV Dimensionless Index Post TAVR: 0.56 [id number] Eddie Syed MD Electronically signed on 11/12/2023 [...] 4. 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 Slightly limited C.) Visiting family or [...] of the visit. documented in this encounter [facility] Work Phone: 07-12-2024 History of Present illness [...] 1 (one) time per week in the quotation clerk.. cholecalciferol (VITAMIN D-3) 5,000 Units, oral, Daily [...] (TAVR) 10. Bradycardia 11. Abnormal ECG 12. 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 13. Shortness of breath 14. Former smoker 15. BMI 28.0-28.9,adult Scribe Attestation By signing my name below, I, Minna Lane LPN, Scribe attest that this documentation [...] discussion and plan. documented in this encounter [facility] Work Phone: 07-12-2024 Instructions Minna Myers LPN [...] cannot be sent through Care Everywhere.DASH Diet (Guamanian)documented in this encounter [facility] Work Phone: 05-30-2024 History of Present illness [...] Allergies) Past Medical History: Diagnosis Date A-fib ([facility]) 08/09/2023 Abnormal ECG 01/21/2017 Adenocarcinoma of colon ([facility]) 02/23/2023 Benign neoplasm of descending colon 02/23/2023 Benign neoplasm of descending colon 08/09/2023 Benign neoplasm of transverse colon 02/23/2023 BMI 29.0-29.9,adult 08/09/2023 BMI 32.0-32.9,adult 06/23/2023 Bradycardia 02/23/2023 Chronic systolic heart failure ([facility]) 02/23/2023 Diabetes mellitus ([facility]) 02/23/2023 Former smoker 01/25/2024 Heart block, AV 08/09/2023 Heart disease, hypertensive ([facility]) 08/09/2023 Heart failure ([facility]) 02/23/2023 History of transcatheter aortic valve replacement (TAVR) 10/13/2023 HTN (hypertension) ([facility]) 02/23/2023 Hypercholesteremia ([facility]) 02/23/2023 Hypothyroidism ([facility]) 02/23/2023 Immunosuppression ([facility]) 02/23/2023 Kidney disease 02/23/2023 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 02/23/2023 Nonrheumatic aortic valve stenosis 10/13/2023 Other specified anemias 11/04/2023 Persistent atrial fibrillation (HCC) ([facility]) 02/23/2023 Personal history of colon cancer, stage II 02/23/2023 Positive colorectal cancer screening using Cologuard test 02/23/2023 Pulmonary hypertension ([facility]) 06/23/2023 Rheumatoid arthritis ([facility]) 02/23/2023 Shortness of breath 02/23/2023 Single vessel coronary artery disease ([facility]) 10/13/2023 Sleep apnea 02/23/2023 Vitamin D deficiency [...] Resource Strain: Low Risk (11/01/2023) Received from [facility] Overall Financial Resource Strain (CARDIA) Difficulty of Paying Living Expenses: Not hard at all Food Insecurity: Not on file Transportation Needs: No Transportation Needs (11/01/2023) Received from [facility] PRAPARE - Transportation Lack of Transportation (Medical): No Lack of Transportation (Non-Medical): No Physical Activity: Not on file Stress: Not on file Social Connections: Not on file Intimate Partner Violence: Not on file Housing Stability: Low Risk (11/01/2023) Received from [facility] Housing Stability Vital Sign Unable to Pay [...] in 3 weeks documented in this encounter [facility] 05-02-2024 History of Present illness Narrative [...] Allergies) Past Medical History: Diagnosis Date A-fib ([facility]) 08/09/2023 Abnormal ECG 01/21/2017 Adenocarcinoma of colon ([facility]) 02/23/2023 Benign neoplasm of descending colon 02/23/2023 Benign neoplasm of descending colon 08/09/2023 Benign neoplasm of transverse colon 02/23/2023 BMI 29.0-29.9,adult 08/09/2023 BMI 32.0-32.9,adult 06/23/2023 Bradycardia 02/23/2023 Chronic systolic heart failure ([facility]) 02/23/2023 Diabetes mellitus ([facility]) 02/23/2023 Former smoker 01/25/2024 Heart block, AV 08/09/2023 Heart disease, hypertensive ([facility]) 08/09/2023 Heart failure ([facility]) 02/23/2023 History of transcatheter aortic valve replacement (TAVR) 10/13/2023 HTN (hypertension) ([facility]) 02/23/2023 Hypercholesteremia ([facility]) 02/23/2023 Hypothyroidism ([facility]) 02/23/2023 Immunosuppression ([facility]) 02/23/2023 Kidney disease 02/23/2023 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 02/23/2023 Nonrheumatic aortic valve stenosis 10/13/2023 Other specified anemias 11/04/2023 Persistent atrial fibrillation (HCC) ([facility]) 02/23/2023 Personal history of colon cancer, stage II 02/23/2023 Positive colorectal cancer screening using Cologuard test 02/23/2023 Pulmonary hypertension ([facility]) 06/23/2023 Rheumatoid arthritis ([facility]) 02/23/2023 Shortness of breath 02/23/2023 Single vessel coronary artery disease ([facility]) 10/13/2023 Sleep apnea 02/23/2023 Vitamin D deficiency [...] Resource Strain: Low Risk (11/01/2023) Received from [facility] Overall Financial Resource Strain (CARDIA) Difficulty of Paying Living Expenses: Not hard at all Food Insecurity: Not on file Transportation Needs: No Transportation Needs (11/01/2023) Received from [facility] PRAPARE - Transportation Lack of Transportation (Medical): No Lack of Transportation (Non-Medical): No Physical Activity: Not on file Stress: Not on file Social Connections: Not on file Intimate Partner Violence: Not on file Housing Stability: Low Risk (11/01/2023) Received from [facility] Housing Stability Vital Sign Unable to Pay [...] in 3 weeks documented in this encounter [facility] 04-11-2024 History of Present illness Narrative [...] 06/23/2023 Bradycardia 02/23/2023 Chronic systolic heart failure ([facility]) 02/23/2023 Diabetes mellitus ([facility]) 02/23/2023 Former smoker 01/25/2024 Heart block, AV 08/09/2023 Heart disease, hypertensive ([facility]) 08/09/2023 Heart failure ([facility]) 02/23/2023 History of transcatheter aortic valve replacement (TAVR) 10/13/2023 HTN (hypertension) ([facility]) 02/23/2023 Hypercholesteremia ([facility]) 02/23/2023 Hypothyroidism ([facility]) 02/23/2023 Immunosuppression ([facility]) 02/23/2023 Kidney disease 02/23/2023 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 02/23/2023 Nonrheumatic aortic valve stenosis 10/13/2023 Other specified anemias 11/04/2023 Persistent atrial fibrillation (HCC) ([facility]) 02/23/2023 Personal history of colon cancer, stage II 02/23/2023 Positive colorectal cancer screening using Cologuard test 02/23/2023 Pulmonary hypertension ([facility]) 06/23/2023 Rheumatoid arthritis ([facility]) 02/23/2023 Shortness of breath 02/23/2023 Single vessel coronary artery disease ([facility]) 10/13/2023 Sleep apnea 02/23/2023 Vitamin D deficiency [...] Resource Strain: Low Risk (11/01/2023) Received from [facility] Overall Financial Resource Strain (CARDIA) Difficulty of Paying Living Expenses: Not hard at all Food Insecurity: Not on file Transportation Needs: No Transportation Needs (11/01/2023) Received from [facility] PRAPARE - Transportation Lack of Transportation (Medical): No Lack of Transportation (Non-Medical): No Physical Activity: Not on file Stress: Not on file Social Connections: Not on file Intimate Partner Violence: Not on file Housing Stability: Low Risk (11/01/2023) Received from [facility] Housing Stability Vital Sign Unable to Pay [...] in 3 weeks documented in this encounter [facility] 01-25-2024 History of Present illness Narrative [...] 1 (one) time per week in the quotation clerk.., Disp: , Rfl: cholecalciferol (Vitamin D-3) 5,000 [...] Abnormal ECG 12. Shortness of breath 13. 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 14. Obstructive [...] discussion and plan. documented in this encounter [facility] Work Phone: 01-25-2024 Instructions Nnacy Phillips LPN - 01/25/2024 2:10 PM EDT [...] be sent through Care Everywhere.Heart Healthy Diet (Guamanian)documented in this encounter [facility] Work Phone: 11-12-2023 Miscellaneous Notes The patient's [...] 11/12/2023 OR Location: [facility]F Cardiac Ironing Pleater Name: Shahid Sanchez, : 1940, Age: 83 y.o., , Sex: male Diagnosis Pre-op Diagnosis * Aortic stenosis [I35.0] Post-op Diagnosis * Aortic stenosis [I35.0] Procedures TVP for TAVR TAVR-OR TAVR (Transcatheter AV Replacement) 23236 - AL REPLACE AORTIC VALVE PERQ FEMORAL ARTRY APPROACH 1) Transcatheter Aortic Valve Replacement (34 mm Medtronic Evolut Pro Plus SN: [id number]) via right femoral artery 2) Percutaneous placement of balloon tipped pacing catheter (Right internal jugular vein) 3) Left heart catheterization including left ventricular end diastolic pressure 4) Percutaneous balloon aortic valvuloplasty (21 mm True Balloon) 5) Percutaneous pre-close of the right common femoral artery Surgeons Panel 1: * Milton Camejo - Primary Panel 2: * Medardo Rowe - Primary Resident/Fellow/Other Torch Operator: Surgeons and Role: * No surgeons found [...] Specimen: No specimens collected Staff: Scrub Person: Carrier Loader: Ashish Carrier Loader: Kayode Drains and/or Catheters: * None in log * Tourniquet Times: N/A Implants: Implants Type Name Action Serial No. Heart Valve Repair DELIVERY SYSTEM, EVOLUT FX, 34MM - [id number] Used, Not Implanted Heart Valve Repair VALVE, AORTIC, 34MM, EVOLUT FX TRANSCATHETER - [id number] - [id number] Implanted [id number] Findings: Severe calcification of the aortic valve [...] cardiology catheterization laboratory and placed on the Ironing Pleater table. A timeout was performed with the correct patient, correct procedure, the correct laterality, timing and dosage of antibiotics, the availability of blood products, and all correct equipment was verified as being present prior to beginning the case. Ultrasound guidance was utilized to place a 7 Surinamese locking sheath in the right internal jugular [...] technique. This was exchanged for an 8 Surinamese sheath, and then 2 Pro-glide Perclose sutures were placed. Next the right common femoral artery was dilated to a 18 Surinamese size, and a 18 Surinamese sheath was placed in the right common [...] removed from the body. Next the 18 Surinamese sheath was removed from the right common femoral artery, over the safari wire, and the delivery system and valve replaced bareback into the right common femoral artery. The valve was then advanced on the delivery system through to the ascending aorta, and we verified our correct projection. The evolute valve was then advanced across the [place] aortic valve, and slowly this was deployed [...] 3 - EK11/01/2023 AV paced, HR 70, AL -, QRS 158 ms - TTE: 09/13/2023 [...] participate in the patient care. Please page [phone] if further questions and concerns. MARGARITA John [...] past 2 weeks. 1 month Structural Heart GILL BOX OPERATOR follow-up A.) Showering/bathing 4. Slightly B.) Walking [...] 3. 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 Moderately limited C.) Visiting family or [...] a solution tomorrow documented in this encounter [facility] Work Phone: 11-12-2023 History of Present illness Narrative Subjective Data: Patient sitting up in chair this morning prior to his TAVR. He reports feeling well and eager for procedure today. All questions were answered and addressed. - TAVR this morning - team to cover patient's care for the next 24hr, will likely come back to [facility] after 24hr for further diuresis and to [...] Years): 07/01/23 NM stress IMPRESSION: Normal Lexiscan [place] cardiac perfusion stress test. No evidence of [...] NICM Severe aortic stenosis, HUBER 0.7cm - plastic cutter Dr. Cruz, last seen 10/12 in decompensated CHF, Zaroxyln 2.5mg daily was started - team 10/[address] Dr[address] Reese [address] Dr. Brenner, CT TAVR 10/05. Planned for TAVR 11/04 if Hgb remained stable >8. - Hgb (09/13) 10.7, (10/04) 8.4. when given update of recommendations, he reported dark stools, was asked to follow up with PCP Dr. Raymudno for suspected AVMs, see above - TTE [...] diuretic: bumex 1mg BID (upon dc from [facility] 10/25) - cont hold [place] 25 mg daily iso MAYLIN - held AM metop succ 50mg per SH prior to TAVR - 2gram sodium diet, 2L fluid restriction, daily standing weights, strict I&O's CAD - 07/01/23 lexiscan stress test negative for ischemia with EF 51% - [facility] 09/13: single vessel mild pRCA dz [...] of epistaxis - seen by GI at [facility] felt to be high risk for endoscopy locally. GI suggesting transfer to [facility] (patient ultimately discharged to SNF) S/P 2 [...] as 127 (10/18)> [place] [facility] [place] - Per patient, was started on [...] - on percocet and lidocaine patch at [facility] prior to admit- pt refusing lidocaine patch - cont PRN percocet 1 tab q4h DM2 - on metformin outpatient prior to admission - on humalog SS at [facility] - HgbA1C 10/31: 6.9 % - SSI [...] next 24hr, will likely come back to [facility] after 24hr for further diuresis and to [...] NICM Severe aortic stenosis, HUBER 0.7cm - plastic cutter Dr. Cruz, last seen 10/12 in decompensated [...] diuretic: bumex 1mg BID (upon dc from [facility] 10/25) - cont hold [place] 25 mg daily iso MAYLIN - cont: Toprol XL 50 mg daily (holding tomorrow AM metop succ per SH) - 2gram sodium diet, 2L fluid restriction, daily standing weights, strict I&O's CAD - 07/01/23 lexiscan stress test negative for ischemia with EF 51% - [facility] 09/13: single vessel mild pRCA dz [...] of epistaxis - seen by GI at [facility] felt to be high risk for endoscopy locally. GI suggesting transfer to [facility] (patient ultimately discharged to SNF) S/P 2 [...] as 127 (10/18)> St[place] [facility] [place] - Per patient, was started on finerenone 20mg daily July or August 2023 to help with kidney function - Cr today: 1.85 (1.74, 1.82, 1.75, 1.74, 1.63,1.32, 1.38, 1.30, 1.25,1.27-admit) - Avoid nephrotoxins and hypotension, trend daily RFP Chronic back pain due to Rheumatoid arthritis - on methotrexate at home, but stopped due to MAYLIN - on percocet and lidocaine patch at [facility] prior to admit- pt refusing lidocaine patch - cont PRN percocet 1 tab q4h DM2 - on metformin outpatient prior to admission - on humalog SS at [facility] - HgbA1C 10/31: 6.9 % - SSI [...] NICM Severe aortic stenosis, HUBER 0.7cm - plastic cutter Dr. Cruz, last seen 10/12 in decompensated [...] diuretic: bumex 1mg BID (upon dc from [facility] 10/25) - hold Devin 25 mg daily iso MAYLIN - cont: Toprol XL 50 mg daily - 2gram sodium diet, 2L fluid restriction, daily standing weights, strict I&O's CAD - 07/01/23 lexiscan stress test negative for ischemia with EF 51% - [facility] 09/13: single vessel mild pRCA dz [...] of epistaxis - seen by GI at [facility] felt to be high risk for endoscopy locally. GI suggesting transfer to [facility] (patient ultimately discharged to [facility]) S/P 2 units PRBC. Eliquis stopped with [...] as 127 (10/18)> Stable while here [place] [facility] [place] - Per patient, was started on finerenone 20mg daily July or August 2023 to help with kidney function - Cr today: 1.74 (1.82, 1.75, 1.74, 1.63,1.32, 1.38, 1.30, 1.25,1.27-admit) - Avoid nephrotoxins and hypotension, trend daily RFP Chronic back pain due to Rheumatoid arthritis - on methotrexate at home, but stopped due to MAYLIN - on percocet and lidocaine patch at [facility] prior to admit- pt refusing lidocaine patch - cont PRN percocet 1 tab q4h DM2 - on metformin outpatient prior to admission - on humalog SS at [facility] - HgbA1C 10/31: 6.9 % - [...] Prior Function Per Pt/Caregiver Report Level of [place]: Independent with ADLs and functional transfers, Independent with homemaking with ambulation 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 Cruz, last seen 10/12 in decompensated [...] Cr today 1.82, cont diuretic holiday, hold [place] 25 mg daily - PVR today with ~75 cc - SH following, TAVR Saturday 11/11, team aware that he will be inpatient until procedure (pt appealed dc) - on vericiguat for 1 week at home per pt, possibly as a trial, not on formulary here, follow up with outpt prescriber - home diuretic: bumex 1mg BID (upon dc from [facility] 10/25) - cont: Toprol XL 50 mg daily - 2gram sodium diet, 2L fluid restriction, daily standing weights, strict I&O's CAD - 07/01/23 lexiscan stress test negative for ischemia with EF 51% - [facility] 09/13: single vessel mild pRCA dz [...] of epistaxis - seen by GI at [facility] felt to be high risk for endoscopy locally. GI suggesting transfer to [facility] (patient ultimately discharged to [facility]) S/P 2 units PRBC. Eliquis stopped with [...] as 127 (10/18)> Stable [place] [facility] [place] - Per patient, was started on finerenone 20mg daily July or August 2023 to help with kidney function - Cr today: 1.82 (1.75, 1.74, 1.63,1.32, 1.38, 1.30, 1.25,1.27-admit) - Avoid nephrotoxins and hypotension, trend daily RFP Chronic back pain due to Rheumatoid arthritis - on methotrexate at home, but stopped due to MAYLIN - on percocet and lidocaine patch at [facility] prior to admit- pt refusing lidocaine patch - cont PRN percocet 1 tab q4h DM2 - on metformin outpatient prior to admission - on humalog SS at [facility] - HgbA1C 10/31: 6.9 % - SSI [...] and plan of care discussed with Dr. Mlaa Mccallum, ROSSY-PRINTING GREY CLOTH TENDER Associated attestation - Cody Medeiros MD - [...] Sleep apnea 02/23/2023 Vitamin D deficiency 02/23/2023 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 02/23/2023 Bradycardia [...] 3 - EK11/01/2023 AV paced, HR 70, AL -, QRS 158 ms - TTE: 09/13/2023 [...] participate in the patient care. Please page [phone] if further questions and concerns. Andra A. Molina, 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 Subjective Data: Denies SOB, states he feels [...] NICM Severe aortic stenosis, HUBER 0.7cm - plastic cutter Dr. Cruz, last seen 10/12 in decompensated [...] diuretic: bumex 1mg BID (upon dc from [facility] 10/25) - cont: Toprol XL 50 mg daily, Spironolactone 25 mg daily - 2gram sodium diet, 2L fluid restriction, daily standing weights, strict I&O's CAD - 07/01/23 lexiscan stress test negative for ischemia with EF 51% - [facility] 09/13: single vessel mild pRCA dz [...] of epistaxis - seen by GI at [facility] felt to be high risk for endoscopy locally. GI suggesting transfer to [facility] (patient ultimately discharged to [facility]) S/P 2 units PRBC. Eliquis stopped with [...] as 127 (10/18)> Stable [place] [facility] [place] - today Ob=972 - Per patient, was started on finerenone 20mg daily July or August 2023 to help with kidney function - Cr today: 1.74 (.63,1.32, 1.38, 1.30, 1.25,1.27-admit) - Avoid nephrotoxins and hypotension, trend daily RFP Chronic back pain due to Rheumatoid arthritis - on methotrexate at home, but stopped due to MAYLIN - on percocet and lidocaine patch at [facility] prior to admit- pt refusing lidocaine patch - cont PRN percocet 1 tab q4h DM2 - on metformin outpatient prior to admission - on humalog SS at [facility] - HgbA1C 10/31: 6.9 % - SSI [...] Medeiros Code Status: Full Code Tami Beyer APRN-PRINTING GREY CLOTH TENDER Associated attestation - Cody Medeiros MD - [...] Coordination I was informed by my dept network contract manager that pt had appealed discharge. Discussed with Cardiology PRINTING GREY CLOTH TENDER. No plan for discharge today. Not medically ready. No discharge order had been placed.. Discussed with pt. He appealed as he was told he might be discharged home on Wednesday. Advised that he will not discharge today. The option to appeal is still open once the discharge order is placed. Planned TAVR for 11/11. Message left with Petra [phone] to advise pt not medically ready for [...] (11/07/23 1050) Telemetry 11/07/2023 (personally reviewed): AF Geographic Area Intelligence Officer 60-70s. with occ PVCs vs Vs beats [...] NICM Severe aortic stenosis, HUBER 0.7cm - plastic cutter Dr. Cruz, last seen 10/12 in decompensated [...] diuretic: bumex 1mg BID (upon dc from [facility] 10/25) - cont: Toprol XL 50 mg daily, Spironolactone 25 mg daily - 2gram sodium diet, 2L fluid restriction, daily standing weights, strict I&O's CAD - 07/01/23 lexiscan stress test negative for ischemia with EF 51% - [facility] 09/13: single vessel mild pRCA dz [...] of epistaxis - seen by GI at [facility] felt to be high risk for endoscopy locally. GI suggesting transfer to [facility] (patient ultimately discharged to [facility]) S/P 2 units PRBC. Eliquis stopped with [...] as 127 (10/18)> St[place] [facility] [place] - Per patient, was started on [...] to admission - on humalog SS at [facility] - HgbA1C 10/31: 6.9 % - SSI [...] seen and discussed with Dr. Frank Mccallum, ROSSY-PRINTING GREY CLOTH TENDER Interval events: No acute events overnight Subjective: [...] (11/06/23 1555) Telemetry 11/06/2023 (personally reviewed): AF Geographic Area Intelligence Officer 60-70s. with occ PVCs vs Vs beats [...] NICM Severe aortic stenosis, HUBER 0.7cm - plastic cutter Dr. Cruz, last seen 10/12 in decompensated [...] diuretic: bumex 1mg BID (upon dc from [facility] 10/25) - cont: Toprol XL 50 mg daily, Spironolactone 25 mg daily - 2gram sodium diet, 2L fluid restriction, daily standing weights, strict I&O's CAD - 07/01/23 lexiscan stress test negative for ischemia with EF 51% - [facility] 09/13: single vessel mild pRCA dz [...] of epistaxis - seen by GI at [facility] felt to be high risk for endoscopy locally. GI suggesting transfer to [facility] (patient ultimately discharged to [facility]) S/P 2 units PRBC. Eliquis stopped with [...] as 127 (10/18)> St[place] [facility] [place] - Per patient, was started on finerenone 20mg daily July or August 2023 to help with kidney function - Cr today: 1.32 (1.38, 1.30, 1.25,1.27-admit) - Avoid nephrotoxins and hypotension, trend daily RFP Chronic back pain due to Rheumatoid arthritis - on methotrexate at home, but stopped due to MAYLIN - on percocet and lidocaine patch at [facility] prior to admit - cont PRN percocet 1 tab q4h DM2 - on metformin outpatient prior to admission - on humalog SS at [facility] - HgbA1C 10/31: 6.9 % - SSI [...] seen and discussed with Dr. Frank Mccallum, 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 Interval events: No acute events overnight Subjective: [...] (11/05/23 1001) Telemetry 11/05/2023 (personally reviewed): AF Geographic Area Intelligence Officer 60-70s. with occ PVCs vs Vs beats [...] of epistaxis - seen by GI at [facility] felt to be high risk for endoscopy locally. GI suggesting transfer to [facility] (patient ultimately discharged to SNF) S/P 2 [...] 35% Severe aortic stenosis, HUBER 0.7cm - plastic cutter Dr. Cruz, last seen 10/12 in decompensated [...] brings in from home - Discharged at [facility] on bumex 1mg BID - Hypervolemic. 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 09/13 - Medical therapy was recommended: [...] as 127 (10/18)> St[place] [facility] [place] Per patient, was started on finerenone 20mg daily July or August 2023 to help with kidney function - Cr today 1.38, 1.30 stable (1.25,1.27) Chronic back pain due to Rheumatoid arthritis - on methotrexate at home, but stopped due to MAYLIN - on percocet and lidocaine patch at [facility] prior to admit. Currently has percocet PRN DM2 - on metformin outpatient prior to admission - on humalog SS at [facility] - HgbA1C 10/31: 6.9 % - SS#1 while inpatient - Diabetic carb control diet History of hypothyroidism - TSH high but T4 WNL. - continue levoxyl DVT ppx: heparin gtt DISPO: pending TAVR eval, diuresis. Code status: Full Code Patient seen and discussed with Dr. Guerita Molina. Imani Garcia APRN-PRINTING GREY CLOTH TENDER Associated attestation - Guerita Molina MD PhD [...] occult stool - Check to see if [facility] EGD/c-scope records sent - Escalate diuresis. [...] Last Rate Telemetry 11/04/2023 (personally reviewed): AF Geographic Area Intelligence Officer 60-70s. with occ PVCs vs Vs beats [...] of epistaxis - seen by GI at [facility] felt to be high risk for endoscopy locally. GI suggesting transfer to [facility] (patient ultimately discharged to [facility]) S/P 2 units PRBC. Eliquis stopped with [...] 35% Severe aortic stenosis, HUBER 0.7cm - plastic cutter Dr. Cruz, last seen 10/12 in decompensated [...] brings in from home - Discharged at [facility] on bumex 1mg BID - Hypervolemic. 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 09/13 - Medical therapy was recommended: [...] as 127 (10/18)> Stable [place] [facility] [place] - Per patient, was started on finerenone 20mg daily July or August 2023 to help with kidney function - Cr today 1.30 stable (1.25,1.27) Chronic back pain due to Rheumatoid arthritis - on methotrexate at home, but stopped due to MAYLIN - on percocet and lidocaine patch at [facility] prior to admit. Currently has percocet PRN DM2 - on metformin outpatient prior to admission - on humalog SS at [facility] - HgbA1C 10/31: 6.9 % - SS#1 [...] team wrt timing of his valve intervention. uGerita Molina MD PhD Images from the original note were not included. [facility] [place] PROGRESS NOTE Source of Information: The source [...] Cyndie had held post recent admission at [facility] requiring 2U pRBC for Hb drop. Although [...] back. Castillo Enamorado MD, ALFREDO Chief Medical Cheese Production Supervisor [facility] [place] Associate Chief and Director of Clinical Operations Division of Gastroenterology & Liver Disease Master Clinician [facility] casting chipper [facility] Interval events: No acute events overnight Subjective: Did not urinate that much yesterday. No SOB. Legs still swollen. Today in brief: - EGD today to rule out UGIB source - Haptoglobin labs - Obtain [facility] EGD/c-scope records - Escalate diuresis to [...] Last Rate Telemetry 11/03/2023 (personally reviewed): AF Geographic Area Intelligence Officer 60-70s. with occ PVCs vs Vs beats [...] of epistaxis - seen by GI at [facility] felt to be high risk for endoscopy locally. GI suggesting transfer to [facility] (patient ultimately discharged to SNF) S/P 2 [...] 35% Severe aortic stenosis, HUBER 0.7cm - plastic cutter Dr. Cruz, last seen 10/12 in decompensated [...] restarted at discharge 10/25 - Discharged at [facility] on bumex 1mg BID - Hypervolemic. [...] as 127 (10/18)> Stable [place] [facility] [place] - Per patient, was started on finerenone 20mg daily July or August 2023 to help with kidney function - Cr today 1.25 stable (1.27) Chronic back pain due to Rheumatoid arthritis - on methotrexate at home, but stopped due to MAYLIN - on percocet and lidocaine patch at [facility] prior to admit. Currently has percocet PRN DM2 - on metformin outpatient prior to admission - on humalog SS at [facility] - HgbA1C 10/31: 6.9 % - SS#1 [...] at home. New [facility] 02. [facility] Interval events: No acute events overnight Subjective: [...] 448 ms QTC Calculation(Bazett) 483 ms R Centerfield -60 degrees T Centerfield 109 degrees QRS Count 11 beats Q [...] of epistaxis - seen by GI at [facility] felt to be high risk for endoscopy locally. GI suggesting transfer to [facility] (patient ultimately discharged to SNF) S/P 2 units PRBC. Eliquis stopped with consideration to restart if Hgb stable down the road. Hemoglobin stable during admission. Possible candidate for watchman. - Hgb 10/24 8.9. 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 Cruz, last seen 10/12 in decompensated [...] restarted at discharge 10/25 - Discharged at [facility] on bumex 1mg BID - CXR pending. Appears hypervolemic. Diuresis with lasix 40mg IV x1 today. Increase to BID pending UOP. Wean O2 as tolerated. 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 09/13 - medical therapy was recommended: [...] lidocaine patch inpatient which was continued at [facility] DM2 - on metformin outpatient prior to admission for MAYLIN - on humalog SS at [facility] - HgbA1C 10/31: 6.9 % - will [...] Aortic stenosis, severe. Pharmacy reviewed the patient's [id number] medications and allergies for accuracy. The list below reflects the updated BR[facility] CUTTER list. Prior to Admission Medications Prescriptions Last Dose Informant Bydureon BCise 2 mg/0.85 mL auto-injector few weeks Self, Family Member Sig: Inject 2 mg under the skin 1 (one) time per week in the quotation clerk.. Eliquis 5 mg tablet 10/19/2023 Self, Family [...] accepts M2B at discharge. Local pharmacy: [facility] in [place], [place] (previously used [facility], this pharmacy is closing) Sources: Pt interview - good historian, conversational. Familiar with most medications when prompted with drug name, pt can provide details (frequency, # of tablets) Interview with family members - supported patient with interview and confirming details of medications Dispense hx [facility] medication list 10/13/23 cardiology office visit Additional [...] Secure Chat preferred If no response call [phone] or [employer] Rec documented in this encounter [facility] Work Phone: 11-12-2023 History and physical note [...] and daughter in law at bedside. Patient's plastic cutter Dr. Cruz, last seen 10/12 in decompensated [...] spirolactone. His most recently discharged 10/26/23 from [facility] due to fall. Of note, patient fell 4 days prior to admission 10/19/23 because his legs gave out and he called a squad to help him get back up. He was not admitted at that time. Lives alone. Patient states he suddenly fell, no prodrome or LOC. Work up at [facility] showed Hgb of 7.4, hyponatremia with [...] Hgb remained stable. He was discharged to [facility] for rehab and to consider scope by [...] not feel stable walking. Was discharged to [facility] for rehab. Family History: Family History Problem [...] 1 (one) time per week in the quotation clerk.. cholecalciferol (VITAMIN D-3) 5,000 Units, oral, Daily [...] no recurrence - seen by GI at [facility] felt to be high risk for endoscopy locally. GI suggesting transfer to [facility] (patient ultimately discharged to SNF) S/P 2 [...] HFrEF exacerbation NICM Aortic valve disease. - plastic cutter Dr. 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 09/14/23 - medical therapy was recommended [...] lidocaine patch inpatient which was continued at [facility] DM2 - on metformin outpatient prior to admission for MAYLIN - on humalog SS at [place] - will initiate SS inpatient - HgbA1C ordered History of hypothyroidism - continue levothyroxine - TSH and free t4 ordered Dispo: pending TAVR eval, diuresis. DVT ppx pending labs, SCD ordered. STAN Denise daughter in law [phone] Peripheral IV 11/01/23 20 G Left Wrist (Active) Site Assessment Clean;Dry;Intact 11/01/23 1627 Dressing Status Clean;Dry 11/01/23 1627 Number of days: 0 Code Status: Full Code To be staffed in am Wida M Gutierrez, 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 Associated attestation - Guerita Molina MD PhD [...] being evaluated by an ENT team in [place] and was due for a procedure but [...] [facility] team has already been [...] Molina MD PhD documented in this encounter [facility] Work Phone: 11-02-2023 Consult note Associated Order [...] O2. Patient presented to directed admission to [facility] for HFrEF exacerbation, anemia and possible expedited [...] notes indicate patient was recently discharged from [facility] on 10/26/23 after a fall for [...] 10 mg, oral, Daily, Wida M Gutierrez, 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 Family History Family History Problem Relation Name [...] 448 ms QTC Calculation(Bazett) 483 ms R Centerfield -60 degrees T Centerfield 109 degrees QRS Count 11 beats Q [...] O2. Patient presented to directed admission to [facility] for HFrEF exacerbation, anemia and possible expedited [...] sprays 4x daily for 10 days - Fabens nasal gel 2x daily for 10 days [...] Head & Neck Surgery ENT Consult pager: [phone] Please page if urgent I personally examined [...] was stable post transfusion. Now transfer to [facility] for further management of his ADHF [...] 3/5 - EK11/01/2023 AV paced, HR 70, AL -, QRS 158 ms - TTE: 09/13/2023 [...] 1 (one) time per week in the quotation clerk.. cholecalciferol (VITAMIN D-3) 5,000 Units, oral, Daily [...] was stable post transfusion. Now transfer to [facility] for further management of his ADHF [...] participate in the patient care Please page [phone] if further questions and concerns. MARGARITA John Associated Order(s): IP CONSULT TO GASTROENTEROLOGY Images from the original note were not included. [facility] [place] INITIAL CONSULT NOTE Source of Information: The [...] and possible expedited TAVR. Recent admission at [facility] (10/19-10/25) for weakness. Found to have acute on chronic anemia of Hb 7.4 from baseline 8-9 requiring 2U pRBC to which pt responded appropriately. FOB positive. GI was consulted but EGD was deferred as felt to be to high risk for endoscopy locally and recommended at tertiary center. Eliquis was held since the DC. On admission to [facility], Hb 9.1-->9.7. UN 37. PT denies overt signs of GI bleed. Reports had one day of dark stool while being admitted at [facility] but resolved. Denies taking eliquis. Other pertinent lab; Ferritin 496 (10/31), Tsat 24 (8/), MCV 97. Reports that he had EGD and colonoscopy as a work up for TAVR at [facility]. Does not recall details. Also reports history [...] 448 ms QTC Calculation(Bazett) 483 ms R Centerfield -60 degrees T Centerfield 109 degrees QRS Count 11 beats Q [...] Cyndie had held post recent admission at [facility] requiring 2U pRBC for Hb drop. Although [...] Tristian Garcia MD documented in this encounter [facility] Work Phone: 10-26-2023 Progress note Note Date/Time October 26, 2023 10:40am [facility] [address] [place] [address] Cardiology Progress Note Signed Patient: Shahid Sanchez MR#: [id number] : 1940 Acct:[id number] Age/Sex: 83 / M Adm Date: 4 Loc: 4 Room: [address] [place] [address] Type: ADM IN Attending Dr: William Smalls [...] signed by MD Joby Pinedo> 10/26/23 1041 [facility] Work Phone: 1(557) 841-438307-29-2024 Progress note Author William Smalls [facility] October 25, 2023 4:27pm Note Date/Time October 25, 2023 4:25 pm [facility] [address] [place] [address] Hospitalist Progress Note Signed Patient: Shahid Sanchez MR#: [id number] : 1940 Acct:[id number] Age/Sex: 83 / M Adm Date: 4 Loc: Room: [address] [place] [address] Type: ADM IN Attending Dr: William Smalls [...] that his daughter is his power of energy attorney and would like to discuss further with him to confirm his wishes we will keep him full code for now. Status: inpatient Anticipate discharge tomorrow pending renal function Documented By: William Smalls DO 10/25/231621 Signed By: <Electronically signed by William Smalls DO> 10/25/237 [facility] Work Phone: 1(548) 601-504107-29-2024 Progress note Author Lamont Spicer [facility] October 25, 2023 2:12pm Note Date/Time October 25, 2023 2:12 pm [facility] [address] [place] [address] Nephrology Progress Note Signed Patient: Shahid Sanchez MR#: [id number] : 1940 Acct:[id number] Age/Sex: 83 / M Adm Date: 4 Loc: 4 Room: [id number] Type: ADM IN Attending Dr: William Smalls [...] concerning for CHF.Patient was recently admitted at [facility] for acute CHF exacerbation and respiratory [...] 300 Units/3 Ml Insuln.Pen) 0 units SUBCUT TID..[facility]; Protocol Stop: 10/19/24 11:59 Last [...] <Electronically signed by Lamont Spicer MD> 10/25/23 1418 [facility] Work Phone: 1(668) 487-424807-29-2024 Progress note Author Joby Pinedo [facility] October 25, 2023 1:18pm Note Date/Time October 25, 2023 1:12 pm [facility] [address] [place] [address] Cardiology Progress Note Signed Patient: Shahid Sanchez MR#: [id number] : 1940 Acct:[id number] Age/Sex: 83 / M Adm Date: 4 Loc: Room: [address] [place] [address] Type: ADM IN Attending Dr: William Smalls [...] signed by MD Joby Pinedo> 10/25/23 1318 [facility] Work Phone: [phone]) 878-754207-28-2024 Progress note Author Kelvin Qureshi [facility] October 24, 2023 3:36pm Note Date/Time October 24, 2023 3:36 pm [facility] [address] [place] [address] Cardiology Progress Note Signed Patient: Shahid Sanchez MR#: [id number] : 1940 Acct:[id number] Age/Sex: 83 / M Adm Date: 4 Loc: Room: [address] [place] [address] Type: ADM IN Attending Dr: Mary Colin [...] % (Auto) 86.1 Lymph % (Auto) 5.2 Beaver % (Auto) 8.1 Eos % (Auto) 0.4 Baso % (Auto) 0.2 Nucleat RBC Rel Count 0.0 Neut # (Auto) 11.9 H Lymph # (Auto) 0.7 L Beaver # (Auto) 1.1 H Eos # (Auto) [...] MPV Neut % (Auto) Lymph % (Auto) Beaver % (Auto) Eos % (Auto) Baso % (Auto) Nucleat RBC Rel Count Neut # (Auto) Lymph # (Auto) Beaver # (Auto) Eos # (Auto) Baso # [...] signed by Kelvin Qureshi MD> 10/24/23 1536 [facility] Work Phone: 1(306) 398-846407-28-2024 Progress note Author Mary Colin [facility] October 24, 2023 2:09pm Note Date/Time October 24, 2023 2:09 pm [facility] [address] [place] [address] Hospitalist Progress Note Signed Patient: Shahid Sanchez MR#: [id number] : 1940 Acct:[id number] Age/Sex: 83 / M Adm Date: 4 Loc: 4 Room: [id number] Type: ADM IN Attending Dr: Mary Colin [...] that his daughter is his power of energy attorney and would like to discuss further [...] signed by Mary Colin MD> 10/24/23 1409 [facility] Work Phone: [phone]) [phone] Progress note Author Valerio Saeed [facility] October 24, 2023 10:39am Note Date/Time October 24, 2023 10:3 9am [facility] [address] [place] [address] Nephrology Progress Note Signed Patient: Shahid Sanchez MR#: [id number] : 1940 Acct:[id number] Age/Sex: 83 / M Adm Date: 4 Loc: Room: [address] [place] [address] Type: ADM IN Attending Dr: Mary Colin [...] concerning for CHF.Patient was recently admitted at [facility] for acute CHF exacerbation and respiratory [...] mass Skin: No rashes, warm to touch GAMEMASTER: Awake,Alert, following simple command Musculoskeletal: No swelling [...] signed by Valerio Saeed MD> 10/24/23 1039 [facility] Work Phone: 1([phone]) 842-426407-27-2024 Progress note Author Kelvin Qureshi [facility] October 23, 2023 3:06pm Note Date/Time October 23, 2023 3:05 pm [facility] [address] [place] [address] Cardiology Progress Note Signed Patient: Shahid Sanchez MR#: [id number] : 1940 Acct:[id number] Age/Sex: 83 / M Adm Date: 4 Loc: 4 Room: [address] [place] [address] Type: ADM IN Attending Dr: Mary Colin [...] % (Auto) 85.8 Lymph % (Auto) 5.9 Beaver % (Auto) 7.4 Eos % (Auto) 0.7 Baso % (Auto) 0.2 Nucleat RBC Rel Count 0.0 Neut # (Auto) 9.7 H Lymph # (Auto) 0.7 L Beaver # (Auto) 0.8 Eos # (Auto) 0.1 [...] MPV Neut % (Auto) Lymph % (Auto) Beaver % (Auto) Eos % (Auto) Baso % (Auto) Nucleat RBC Rel Count Neut # (Auto) Lymph # (Auto) Beaver # (Auto) Eos # (Auto) Baso # [...] Documented By: Kelvin Qureshi MD 09/27 10/19 4377 Signed By: <Electronically signed by Kelvin Qureshi MD> 10/23/23 4137 [facility] Work Phone: 1(934) 721-895107-27-2024 Progress note Author Mary Colin [facility] October 23, 2023 12:10pm Note Date/Time October 23, 2023 12:1 1pm [facility] [address] [place] [address] Hospitalist Progress Note Signed Patient: Shahid Sanchez MR#: [id number] : 1940 Acct:[id number] Age/Sex: 83 / M Adm Date: 4 Loc: Room: [address] [place] [address] Type: ADM IN Attending Dr: Mary Colin [...] that his daughter is his power of energy attorney and would like to discuss further [...] signed by Mary Colin MD> 10/23/23 1210 [facility] Work Phone: 1(897) 327-545807-27-2024 Progress note Author Valerio Saeed [facility] October 23, 2023 9:23am Note Date/Time October 23, 2023 9:23 am [facility] [address] [place] [address] Nephrology Progress Note Signed Patient: Shahid Sanchez MR#: [id number] : 1940 Acct:[id number] Age/Sex: 83 / M Adm Date: 4 Loc: Room: [id number] Type: ADM IN Attending Dr: Mary Colin [...] concerning for CHF.Patient was recently admitted at [facility] for acute CHF exacerbation and respiratory [...] mass Skin: No rashes, warm to touch GAMEMASTER: Awake,Alert, following simple command Musculoskeletal: No swelling [...] 300 Units/3 Ml Insuln.Pen) 0 units SUBCUT TID.[facility]; Protocol Stop: 10/19/24 11:59 Last [...] Appearance Clear Urine pH 5.0 Ur Specific Kennedy 1.007 Urine Protein Negative Urine Glucose (UA) Normal Urine Ketones Negative Urine Occult Blood Negative Urine Nitrite Negative Ur Leukocyte Esterase Negative Radiology Impressions Impressions - last 24 hours: Any impression(s) listed above is documentation that was entered by the reading physician into a diagnostic report(s) for Shahid Debra Daniel. I have reviewed the report(s) and am [...] <Electronically signed by Valerio Saeed MD> 10/23/23922 [facility] Work Phone: 1(217) 145-208107-26-2024 Progress note Author Joby Pinedo [facility] October 22, 2023 2:25pm Note Date/Time October 22, 2023 2:24 pm [facility] [address] [place] [address] Cardiology Progress Note Signed Patient: Shahid Sanchez MR#: [id number] : 1940 Acct:[id number] Age/Sex: 83 / M Adm Date: 4 Loc: Room: [address] [place] [address] Type: ADM IN Attending Dr: Mary Colin [...] MPV Neut % (Auto) Lymph % (Auto) Beaver % (Auto) Eos % (Auto) Baso % (Auto) Nucleat RBC Rel Count Neut # (Auto) Lymph # (Auto) Beaver # (Auto) Eos # (Auto) Baso # (Auto) PHA Creatinine Clear Sodium Potassium Chloride Carbon Dioxide Anion Gap BUN Creatinine Est GFR (CKD-EPI) Glucose POC Glucose 238 Calcium Magnesium Total Bilirubin AST ALT Alkaline Phosphatase Total Protein Albumin Globulin Albumin/Globulin Ratio Urine Color Light-yellow Urine Appearance Clear Urine pH 5.0 Ur Specific Kennedy 1.009 Urine Protein Negative Urine Glucose (UA) [...] % (Auto) 87.8 Lymph % (Auto) 5.0 Beaver % (Auto) 6.1 Eos % (Auto) 0.9 Baso % (Auto) 0.2 Nucleat RBC Rel Count 0.0 Neut # (Auto) 10.6 H Lymph # (Auto) 0.6 L Beaver # (Auto) 0.7 Eos # (Auto) 0.1 [...] Color Urine Appearance Urine pH Ur Specific Kennedy Urine Protein Urine Glucose (UA) Urine Ketones Urine Occult Blood Urine Nitrite Urine Bilirubin Urine Urobilinogen Ur Leukocyte Esterase Blood Type Antibody Screen Crossmatch ([facility]) 10/22/23 10/22/23 09:00 12:01 Corrected WBC Uncorrected WBC Count RBC Hgb Hct MCV MCH MCHC RDW Plt Count MPV Neut % (Auto) Lymph % (Auto) Beaver % (Auto) Eos % (Auto) Baso % (Auto) Nucleat RBC Rel Count Neut # (Auto) Lymph # (Auto) Beaver # (Auto) Eos # (Auto) Baso # (Auto) PHA Creatinine Clear Sodium Potassium Chloride Carbon Dioxide Anion Gap BUN Creatinine Est GFR (CKD-EPI) Glucose POC Glucose 263 Calcium Magnesium Total Bilirubin AST ALT Alkaline Phosphatase Total Protein Albumin Globulin Albumin/Globulin Ratio Urine Color Light-yellow Urine Appearance Clear Urine pH 5.0 Ur Specific Kennedy 1.007 Urine Protein Negative Urine Glucose (UA) [...] <Electronically signed by MD Joby Pinedo> 10/22/23 142 [facility] Work Phone: 1([phone]) 206-123407-26-2024 Progress note Author Mary Colin [facility] October 22, 2023 12:01pm Note Date/Time October 22, 2023 11:5 6am [facility] [address] [place] [address] Hospitalist Progress Note Signed Patient: Shahid Sanchez MR#: [id number] : 1940 Acct:[id number] Age/Sex: 83 / M Adm Date: 4 Loc: Room: [address] [place] [address] Type: ADM IN Attending Dr: Mary Colin [...] that his daughter is his power of energy attorney and would like to discuss further [...] signed by Mary Colin MD> 10/22/23 1201 [facility] Work Phone: 1([phone]) 581-593407-26-2024 Progress note Author Valerio Saeed [facility] October 22, 2023 11:18am Note Date/Time October 22, 2023 11:1 7am [facility] [address] [place] [address] Nephrology Progress Note Signed Patient: Shahid Sanchez MR#: [id number] : 1940 Acct:[id number] Age/Sex: 83 / M Adm Date: 4 Loc: Room: [address] [place] [address] Type: ADM IN Attending Dr: Mary Colin [...] concerning for CHF.Patient was recently admitted at [facility] for acute CHF exacerbation and respiratory [...] mass Skin: No rashes, warm to touch GAMEMASTER: Awake,Alert, following simple command Musculoskeletal: No swelling [...] Units/3 Ml Insuln.Pen) 0 units SUBCUT TID.WM.[facility]; Protocol Stop: 10/19/24 11:59 Last Admin: 10/22/23 [...] Clear Urine pH 5.0 5.0 Ur Specific Kennedy 1.009 1.007 Urine Protein Negative Negative Urine [...] <Electronically signed by Valerio Saeed MD> 10/22/23 1112 [facility] Work Phone: 1(224) 496-514107-25-2024 Progress note Author Valerio Saeed [facility] October 21, 2023 4:57pm Note Date/Time October 21, 2023 4:55 pm [facility] [address] [place] [address] Nephrology Progress Note Signed Patient: Shahid Sanchez MR#: [id number] : 1940 Acct:[id number] Age/Sex: 83 / M Adm Date: 4 Loc: Room: [address] [place] [address] Type: ADM IN Attending Dr: Mary Colin [...] concerning for CHF.Patient was recently admitted at [facility] for acute CHF exacerbation and respiratory [...] mass Skin: No rashes, warm to touch GAMEMASTER: Awake,Alert, following simple command Musculoskeletal: No swelling [...] 300 Units/3 Ml Insuln.Pen) 0 units SUBCUT TID.[facility]; Protocol Stop: 10/19/24 11:59 Last [...] superimposed on CKD: Assessment/Problem Details: He has MALYIN on CKD likely due to the cardiorenal [...] * I spoke to the patient's grand atfzvwkx-nt-hot about possible need of dialysis if renal function continues to decline. I also explained to the patient. Documented By: Valerio Saeed MD 10/21/231651 Signed By: <Electronically signed by Valerio Saeed MD> 10/21/231656 [facility] Work Phone: 1(366) 634-900807-25-2024 Progress note Author Joby Pinedo [facility] October 21, 2023 3:43pm Note Date/Time October 21, 2023 3:43 pm [facility] [address] [place] [address] Cardiology Progress Note Signed Patient: Shahid Sanchez MR#: [id number] : 1940 Acct:[id number] Age/Sex: 83 / M Adm Date: 4 Loc: Room: [address] [place] [address] Type: ADM IN Attending Dr: Mary Colin [...] MPV Neut % (Auto) Lymph % (Auto) Beaver % (Auto) Eos % (Auto) Baso % (Auto) Nucleat RBC Rel Count Neut # (Auto) Lymph # (Auto) Beaver # (Auto) Eos # (Auto) Baso # [...] % (Auto) 88.6 Lymph % (Auto) 5.9 Beaver % (Auto) 4.7 Eos % (Auto) 0.6 Baso % (Auto) 0.2 Nucleat RBC Rel Count 0.1 Neut # (Auto) 9.7 H Lymph # (Auto) 0.6 L Beaver # (Auto) 0.5 Eos # (Auto) 0.1 [...] signed by MD Joby Pinedo> 10/21/23 1543 [facility] Work Phone: 1([phone] 800-420907-25-2024 Progress note Author Mary Colin [facility] October 21, 2023 12:06pm Note Date/Time October 21, 2023 12:0 1pm [facility] [address] [place] [address] Hospitalist Progress Note Signed Patient: Shahid Sanchez MR#: [id number] : 1940 Acct:[id number] Age/Sex: 83 / M Adm Date: 4 Loc: Room: [address] [place] [address] Type: ADM IN Attending Dr: Mary Colin [...] signed by Mary Colin MD> 10/21/23 1206 [facility] Work Phone: 1([phone] 975-573407-24-2024 Consult note Author Joby Pinedo [facility] October 20, 2023 4:05pm Note Date/Time October 20, 2023 4:00 pm [facility] [address] [place] [address] Cardiology Consult Note Signed Patient: Shahid Sanchez MR#: [id number] : 1940 Acct:[id number] Age/Sex: 83 / M Adm Date: 4 Loc: Room: [address] [place] [address] Type: ADM IN Attending Dr: Mary Colin [...] and no additional complaints, except as documented [facility] Source: Unable to Obtain Medical History (Updated [...] x10E3/uL Lymph # (Auto) 1.1 (1.00-4.8) x10E3/uL Beaver # (Auto) 0.4 (0.0-0.8) x10E3/uL Eos # [...] 1000 ,000 ml @ 75 mls/hr IV .[id number] [facility] Rx#:[id number] Oral 200 / 200 Output: Urine Amount (Catheter) 0 / 0 Purwick 0 / 0 Other: Total Intake (Blood Product) Cumulative Amt Irradiated Leuko Red Rbc Unit 325 [id number] # Unmeasured Voids 1 Weight 101.7 kg [...] be done locally. GI suggesting transfer to [facility] / [facility] which I agree with 5. Down [address] consider Watchman device Documented By: Joby Pinedo MD 10/20/23 1555 Signed By: <Electronically signed by MD Joby Pinedo> 10/20/23 1609 [facility] Work Phone: 1([phone] 937-500407-24-2024 Progress note Author Mary Colin [facility] October 20, 2023 1:53pm Note Date/Time October 20, 2023 1:45 pm [facility] [address] [place] [address] Hospitalist Progress Note Signed Patient: Shahid Sanchez MR#: [id number] : 1940 Acct:[id number] Age/Sex: 83 / M Adm Date: 4 Loc: Room: 8Y1582-8 Type: ADM IN Attending Dr: Mary Colin [...] <Electronically signed by Mary Colin MD> 10/20/23 2566 [facility] Work Phone: 1([phone] 498-776707-24-2024 Consult note Author Ananth Wilde [facility] October 20, 2023 1:20pm Note Date/Time October 20, 2023 1:20 pm [facility] [address] [place] [address] Gastroenterology Consult Note Signed Patient: Shahid Sanchez MR#: [id number] : 1940 Acct:[id number] Age/Sex: 83 / M Adm Date: 4 Loc: Room: 3G0327-7 Type: ADM IN Attending Dr: Mary Colin [...] of Systems Unobtainable due to mental status [facility] Medical History (Updated 10/20/23 @ 13:16 by Ananth Wilde MD) Skin cancer head, removed yearly Arthritis Hearing impaired hearing aids, doesnt always wear Arrhythmia Hypertension Hypercholesteremia CERVANTSE (dyspnea on exertion) Chronic UTI Rheumatoid arthritis [...] % (Auto) 93.9 Lymph % (Auto) 2.5 Beaver % (Auto) 3.4 Eos % (Auto) 0.1 Baso % (Auto) 0.1 Nucleat RBC Rel Count 0.1 Neut # (Auto) 11.6 H Lymph # (Auto) 0.3 L Beaver # (Auto) 0.4 Eos # (Auto) 0.0 [...] Type Blood Type Recheck Antibody Screen Crossmatch ([facility]) 10/19/23 10/19/23 10/19/23 14:10 14:10 14:10 Corrected WBC Uncorrected WBC Count RBC Hgb Hct MCV MCH MCHC RDW Plt Count MPV Neut % (Auto) Lymph % (Auto) Beaver % (Auto) Eos % (Auto) Baso % (Auto) Nucleat RBC Rel Count Neut # (Auto) Lymph # (Auto) Beaver # (Auto) Eos # (Auto) Baso # [...] Type Blood Type Recheck Antibody Screen Crossmatch ([facility]) 10/19/23 10/19/23 10/19/23 14:10 15:26 16:53 Corrected WBC Uncorrected WBC Count RBC Hgb Hct MCV MCH MCHC RDW Plt Count MPV Neut % (Auto) Lymph % (Auto) Beaver % (Auto) Eos % (Auto) Baso % (Auto) Nucleat RBC Rel Count Neut # (Auto) Lymph # (Auto) Beaver # (Auto) Eos # (Auto) Baso # [...] Recheck AB Negative Antibody Screen Negative Crossmatch ([facility]) See Detail 10/19/23 10/20/23 10/20/23 22:49 04:43 12:00 Corrected WBC 12.0 H Uncorrected WBC Count 12.0 H RBC 2.58 L Hgb 8.4 L Hct 23.6 L MCV 91.6 MCH 32.6 MCHC 35.6 RDW 16.3 H Plt Count 171 MPV 7.6 Neut % (Auto) 87.2 Lymph % (Auto) 9.3 Beaver % (Auto) 3.4 Eos % (Auto) 0.0 Baso % (Auto) 0.1 Nucleat RBC Rel Count 0.1 Neut # (Auto) 10.5 H Lymph # (Auto) 1.1 Beaver # (Auto) 0.4 Eos # (Auto) 0.0 [...] Type Blood Type Recheck Antibody Screen Crossmatch ([facility]) A&P - Gastroenterology Assessment/Plan (1) Acute on [...] [facility] and sounds like he had his previous EGDand colonoscopy. -If he has AVMs of the small bowel then can consider outpatient octreotide through [facility]. -recommend obtaining his outside records from prior workup. Thank you for this consult, little further to add from a GI standpoint. I will peripherally follow. Documented By: Ananth Wilde MD 10/20/23 1306 Signed By: <Electronically signed by Ananth Wilde MD> 10/20/23 1320 [facility] Work Phone: [phone] Consult note Author Valerio Saeed [facility] October 20, 2023 11:31am Note Date/Time October 20, 2023 11:2 3am [facility] [address] [place] [address] Nephrology Consult Note Signed Patient: Shahid Sanchez MR#: [id number] : 1940 Acct:[id number] Age/Sex: 83 / M Adm Date: 4 Loc: Room: [address] [place] [address] Type: ADM IN Attending Dr: Mary Colin [...] concerning for CHF.Patient was recently admitted at [facility] for acute CHF exacerbation and respiratory [...] polydipsia Dermatological: denies any itching or rash [facility] Medical History (Updated 10/20/23 @ 11:14 by [...] 300 Units/3 Ml Insuln.Pen) 0 units SUBCUT TID.[facility]; Protocol Stop: 10/19/24 11:59 Morphine [...] mass Skin: No rashes, warm to touch GAMEMASTER: Awake,Alert, following simple command Musculoskeletal: No swelling [...] Wilberto Jacobo M.D.10/19/2023 1:59 PM Dictation Location: [place] [address] 10/19/23 13:29 IMPRESSION: No acute [...] Wilberto Jacobo M.D.10/19/2023 2:38 PM Dictation Location: [place] [address] Any impression(s) listed above is documentation that [...] question. Documented By: Valerio Saeed MD 10/20/23 0851 Signed By: <Electronically signed by Valerio Saeed MD> 10/20/23 2498 [facility] Work Phone: 1([phone] 483-433207-23-2024 History and physical note Author Mary Colin [facility] October 19, 2023 6:06pm Note Date/Time October 19, 2023 4:11 pm [facility] [address] [place] [address] Hospitalist H&P Signed Patient: Shahid Sanchez MR#: [id number] : 1940 Acct:[id number] Age/Sex: 83 / M Adm Date: 4 Loc: Room: [address] [place] [address] Type: ADM IN Attending Dr: Mary Colin [...] planned for outpatient aortic valve replacement through [facility]. He was medically optimized and [...] except as mentioned elsewhere in the documentation [facility] Medical History Skin cancer head, removed yearly [...] % (Auto) 2.5 % (.) 10/19/23 14:10 Beaver % (Auto) 3.4 % (.) 10/19/23 14:10 Eos % (Auto) 0.1 % (.) 10/19/23 14:10 Baso % (Auto) 0.1 % (.) 10/19/23 14:10 Nucleat RBC Rel Count 0.1 /100 WBC (0-0.5) 10/19/23 14:10 Neut # (Auto) 11.6 x10E3/uL (1.8-7.7) H 10/19/23 14:10 Lymph # (Auto) 0.3 x10E3/uL (1.00-4.8) L 10/19/23 14:10 Beaver # (Auto) 0.4 x10E3/uL (0.0-0.8) 10/19/23 14:10 [...] signed by Mary Colin MD> 10/19/23 1806 [facility] Work Phone: 1([phone] 699-430307-23-2024 History and physical note Author Mary Colin [facility] October 19, 2023 6:06pm Note Date/Time October 19, 2023 4:11 pm [facility] [address] [place] [address] Hospitalist H&P Signed Patient: Shahid Sanchez MR#: [id number] : 1940 Acct:[id number] Age/Sex: 83 / M Adm Date: 4 Loc: Room: [address] [place] [address] Type: ADM IN Attending Dr: Mary Colin [...] planned for outpatient aortic valve replacement through [facility]. He was medically optimized and [...] except as mentioned elsewhere in the documentation [facility] Medical History Skin cancer head, removed yearly [...] % (Auto) 2.5 % (.) 10/19/23 14:10 Beaver % (Auto) 3.4 % (.) 10/19/23 14:10 Eos % (Auto) 0.1 % (.) 10/19/23 14:10 Baso % (Auto) 0.1 % (.) 10/19/23 14:10 Nucleat RBC Rel Count 0.1 /100 WBC (0-0.5) 10/19/23 14:10 Neut # (Auto) 11.6 x10E3/uL (1.8-7.7) H 10/19/23 14:10 Lymph # (Auto) 0.3 x10E3/uL (1.00-4.8) L 10/19/23 14:10 Beaver # (Auto) 0.4 x10E3/uL (0.0-0.8) 10/19/23 14:10 [...] signed by Mary Colin MD> 10/19/23 1806 [facility] Work Phone: 1([phone]) 755-334307-17-2024 History of Present illness Narrative* Joby Pinedo [...] infusion, 300 mL/hr, intravenous, Once, Andra Molina APRN-[employer] Assessment/Plan 1. Chronic systolic heart failure (Multi) [...] exam, discussion and plan. documented in this [facility] Work Phone: 1([phone]) 905-731007-17-2024 Instructions* Patient Instructions* Vivian Mack LPN - [...] instructions on dietary changes. documented in this [facility] Work Phone: [phone]) 874-965206-19-2024 Progress note Author Joby Pinedo [facility] September 15, 2023 11:20am Note Date/Time September 15, 2023 11:1 8am [facility] [address] [place] [address] Cardiology Progress Note Signed Patient: Shahid Sanchez MR#: [id number] : 1940 Acct:[id number] Age/Sex: 82 / M Adm Date: 4 Loc: 3T Room: [address] [place] [address] Type: ADM IN Attending Dr: Misael Gonzales [...] for the patient to be evaluated at [facility] for TAVR Documented By: Joby Pinedo MD 09/15/23 1116 Signed By: <Electronically signed by MD Joby Pinedo> 09/15/23 1120 [facility] Work Phone: [phone] 496-527906-18-2024 Progress note Author Misael Gonzales [facility] September 14, 2023 9:21pm Note Date/Time September 14, 2023 5:27 pm [facility] [address] [place] [address] Hospitalist Progress Note Signed Patient: Shahid Sanchez MR#: [id number] : 1940 Acct:[id number] Age/Sex: 82 / M Adm Date: 4 Loc: Room: [address] [place] [address] Type: ADM IN Attending Dr: Misael Gonzales [...] per cardiology: Metoprolol, amlodipine, spironolactone DM type BC-lhmygai-ncmgd insulin, hypoglycemia protocol, DM diet Hypothyroidism-TSH elevated, check free T4 Chronic medical conditions noted below, continue home regimens unless otherwise specified: Hypertension Hyperlipidemia Rheumatoid arthritis on methotrexate CODE STATUS: Full code DVT prophylaxis- Switched to Lovenox Documented By: Misael Gonzales MD 4 [id number] Signed By: <Electronically signed by Misael Gonzales MD> 09/14/23 3035 [facility] Work Phone: [phone] 124-498806-18-2024 Progress note Author Joby Pinedo [facility] September 14, 2023 11:10am Note Date/Time September 14, 2023 11:1 0am [facility] [address] [place] [address] Cardiology Progress Note Signed Patient: Shahid Sanchez MR#: [id number] : 1940 Acct:[id number] Age/Sex: 82 / M Adm Date: 4 Loc: Room: [address] [place] [address] Type: ADM IN Attending Dr: Misael Gonzales [...] MPV Neut % (Auto) Lymph % (Auto) Beaver % (Auto) Eos % (Auto) Baso % (Auto) Nucleat RBC Rel Count Neut # (Auto) Lymph # (Auto) Beaver # (Auto) Eos # (Auto) Baso # [...] % (Auto) 70.1 Lymph % (Auto) 15.7 Beaver % (Auto) 10.8 Eos % (Auto) 2.6 Baso % (Auto) 0.8 Nucleat RBC Rel Count 0.0 Neut # (Auto) 3.1 Lymph # (Auto) 0.7 L Beaver # (Auto) 0.5 Eos # (Auto) 0.1 [...] signed by MD Joby Pinedo> 09/14/23 1110 [facility] Work Phone: [phone] 507-332206-18-2024 [facility] Progress note Author Misael Gonzales [facility] September 13, 2023 3:22pm Note Date/Time September 13, 2023 2:45 pm [facility] [address] [place] [address] Hospitalist Progress Note Signed Patient: Shahid Sanchez MR#: [id number] : 1940 Acct:[id number] Age/Sex: 82 / M Adm Date: 4 Loc: Room: [address] [place] [address] Type: ADM IN Attending Dr: Misael Gonzales [...] him about [facility] I did explain that we will have [...] Ml Insuln.Pen SUBCUT 09/08/24 16:59 Not Given TID.[facility] Protocol Levothyroxine Sodium 50 mcg [...] per cardiology: Metoprolol, amlodipine, spironolactone DM type HF-rrwqtkz-onvdj insulin, hypoglycemia protocol, DM diet Hypothyroidism-TSH elevated, check free T4 Chronic medical conditions noted below, continue home regimens unless otherwise specified: Hypertension Hyperlipidemia Rheumatoid arthritis on methotrexate CODE STATUS: Full code DVT prophylaxis- Switched to Lovenox Documented By: Misael Gonzales MD 4 1440 Signed By: <Electronically signed by Misael Gonzales MD> 09/13/23 1522 [facility] Work Phone: [phone] Progress note Author Joby Pinedo [facility] September 13, 2023 10:55am Note Date/Time September 13, 2023 10:5 5am [facility] [address] [place] [address] Cardiology Progress Note Signed Patient: Shahid Sanchez MR#: [id number] : 1940 Acct:[id number] Age/Sex: 82 / M Adm Date: 4 Loc: Room: [address] [place] [address] Type: ADM IN Attending Dr: Misael Gonzales [...] MPV Neut % (Auto) Lymph % (Auto) Beaver % (Auto) Eos % (Auto) Baso % (Auto) Nucleat RBC Rel Count Neut # (Auto) Lymph # (Auto) Beaver # (Auto) Eos # (Auto) Baso # [...] MPV Neut % (Auto) Lymph % (Auto) Beaver % (Auto) Eos % (Auto) Baso % (Auto) Nucleat RBC Rel Count Neut # (Auto) Lymph # (Auto) Beaver # (Auto) Eos # (Auto) Baso # [...] % (Auto) 73.6 Lymph % (Auto) 12.9 Beaver % (Auto) 8.1 Eos % (Auto) 4.5 Baso % (Auto) 0.9 Nucleat RBC Rel Count 0.1 Neut # (Auto) 4.1 Lymph # (Auto) 0.7 L Beaver # (Auto) 0.5 Eos # (Auto) 0.3 [...] to sever Documented By: Joby Pinedo MD 09/13/23 1053 Signed By: <Electronically signed by MD Joby Pinedo> 09/13/23 1058 [facility] Work Phone: [phone] Progress note Author Nash Harris [facility] September 12, 2023 3:38pm Note Date/Time September 12, 2023 3:38 pm [facility] [address] [place] [address] Hospitalist Progress Note Signed Patient: Shahid Sanchez MR#: [id number] : 1940 Acct:[id number] Age/Sex: 82 / M Adm Date: 4 Loc: Room: [address] [place] [address] Type: ADM IN Attending Dr: Nash Harris [...] Benzocaine 1 applic 09/13/23 10:00 Benzocaine 20% Cove 57 Gm Can MUCOUS MEM ONCE PRN [...] signed by Nash Harris MD> 09/12/23 1538 [facility] Work Phone: [phone] 568-781206-16-2024 Progress note Author Gabe Bowens [facility] September 12, 2023 11:29am Note Date/Time September 12, 2023 11:2 9am [facility] [address] [place] [address] Cardiology Progress Note Signed Patient: Shahid Snachez MR#: [id number] : 1940 Acct:[id number] Age/Sex: 82 / M Adm Date: 4 Loc: Room: [address] [place] [address] Type: ADM IN Attending Dr: Nash Harris [...] % (Auto) 75.2 Lymph % (Auto) 14.8 Beaver % (Auto) 5.8 Eos % (Auto) 3.5 Baso % (Auto) 0.7 Nucleat RBC Rel Count 0.0 Neut # (Auto) 4.9 Lymph # (Auto) 1.0 Beaver # (Auto) 0.4 Eos # (Auto) 0.2 [...] MPV Neut % (Auto) Lymph % (Auto) Beaver % (Auto) Eos % (Auto) Baso % (Auto) Nucleat RBC Rel Count Neut # (Auto) Lymph # (Auto) Beaver # (Auto) Eos # (Auto) Baso # [...] to sever Documented By: Gabe Bowens MD, [facility] 4 1127 Signed By: <Electronically signed by [facility] Gabe Bowens> 09/12/23 1129 [facility] Work Phone: 1([phone] 333-373306-15-2024 Progress note Author Nash Harris [facility] September 11, 2023 7:49pm Note Date/Time September 11, 2023 7:49 pm [facility] [address] [place] [address] Hospitalist Progress Note Signed Patient: Shahid Sanchez MR#: [id number] : 1940 Acct:[id number] Age/Sex: 82 / M Adm Date: 4 Loc: Room: [address] [place] [address] Type: ADM IN Attending Dr: Nash Harris [...] Benzocaine 1 applic 09/13/23 10:00 Benzocaine 20% Cove 57 Gm Can MUCOUS MEM ONCE PRN [...] telemetry Resume IV Lasix diuresis as per plastic cutter. Monitor intake and output, daily weights, low-salt [...] <Electronically signed by Nash Harris MD> 09/11/231948 [facility] Work Phone: [phone] 626-861206-15-2024 Progress note Author Gabe Bowens [facility] September 11, 2023 12:46pm Note Date/Time September 11, 2023 12:3 9pm [facility] [address] [place] [address] Cardiology Progress Note Signed Patient: Shahid Sanchez MR#: [id number] : 1940 Acct:[id number] Age/Sex: 82 / M Adm Date: 4 Loc: Room: [address] [place] [address] Type: ADM IN Attending Dr: Nash Harris [...] % (Auto) 80.6 Lymph % (Auto) 11.4 Beaver % (Auto) 4.5 Eos % (Auto) 2.9 Baso % (Auto) 0.6 Nucleat RBC Rel Count 0.0 Neut # (Auto) 5.1 Lymph # (Auto) 0.7 L Beaver # (Auto) 0.3 Eos # (Auto) 0.2 [...] to sever Documented By: Gabe Bowens MD, [facility] 4 1237 Signed By: <Electronically signed by [facility] Gabe Bowens> 09/11/23 6771 [facility] Work Phone: [phone]) 256-619406-14-2024 Progress note Author Joby Pinedo [facility] September 10, 2023 2:02pm Note Date/Time September 10, 2023 1:59 pm [facility] [address] [place] [address] Cardiology Progress Note Signed Patient: Shahid Snachez MR#: [id number] : 1940 Acct:[id number] Age/Sex: 82 / M Adm Date: 4 Loc: 3T Room: [address] [place] [address] Type: ADM IN Attending Dr: Astrid Osman [...] sever Documented By: Joby Pinedo MD 09/10/23 1241 Signed By: <Electronically signed by MD Joby Pinedo> 09/10/23 1405 [facility] Work Phone: 1([phone] 239-530506-14-2024 Progress note Author Astrid Osman [facility] September 10, 2023 1:18pm Note Date/Time September 10, 2023 1:19 pm [facility] [address] [place] [address] Hospitalist Progress Note Signed Patient: Shahid Sanchez MR#: [id number] : 1940 Acct:[id number] Age/Sex: 82 / M Adm Date: 4 Loc: Room: [address] [place] [address] Type: ADM IN Attending Dr: Astrid Osman [...] Tablet PO 09/09/24 06:29 Not Given MoTuWeThFrSa@0630 [facility] Levothyroxine Sodium 100 mcg 09/12/23 06:30 Levothyroxine 50 Mcg Tablet PO 09/11/24 06:29 Adams@0630 [facility] Metoprolol Tartrate 25 mg 09/10/23 09:00 09/10/23 [...] Hypothyroidism: Plan Admit to medical floor with monitoring coordinator Resume IV Lasix diuresis as per plastic cutter. Monitor intake and output, daily weights, low-salt [...] signed by Astrid Osman DO> 09/10/23 1318 [facility] Work Phone: [phone] Consult note Author Arnulfo Carter [facility] September 09, 2023 4:38pm Note Date/Time September 09, 2023 4:38 pm [facility] [address] [place] [address] Cardiology Consult Note Signed Patient: Shahid Sanchez MR#: [id number] : 1940 Acct:[id number] Age/Sex: 82 / M Adm Date: 4 Loc: Room: [address] [place] [address] Type: ADM IN Attending Dr: Astrid Osman [...] and no additional complaints, except as documented [facility] Medical History (Updated 09/09/23 @ 16:37 by [...] Lymph # (Auto) 0.4 L (1.00-4.8) x10E3/uL Beaver # (Auto) 0.6 (0.0-0.8) x10E3/uL Eos # [...] <Electronically signed by MD Arnulfo Carter> 09/09/23 0088 [facility] Work Phone: 1(338) 918-477706-13-2024 History and physical note Author Astrid Osman 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8 x10E3/uL (1.8-7.7) H 09/09/23 12:15 Lymph # (Auto) 0.4 x10E3/uL (1.00-4.8) L 09/09/23 12:15 Beaver # (Auto) 0.6 x10E3/uL (0.0-0.8) 09/09/23 12:15 [...] Hypothyroidism: Plan Admit to medical floor with monitoring coordinator Lasix 40 mg IV twice daily Monitor [...] signed by Astrid Osman DO> 09/09/23 1439 [facility] Work Phone: 1(373) 303-645606-13-2024 History and physical note Author Astrid Osman 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, followed with [facility] cardiology group, hypothyroidism, rheumatoid arthritis on methotrexate [...] negative unless noted below or in HPI [facility] Medical History (Updated 09/09/23 @ 14:36 by [...] exenatide microspheres 2 mg/0.85 mL subcutaneous auto-injector (ByChessParkse) 2 mg subcut QWEEK 03/10/23 [History Confirmed [...] % (Auto) 4.0 % (.) 09/09/23 12:15 Beaver % (Auto) 5.7 % (.) 09/09/23 12:15 Eos % (Auto) 0.5 % (.) 09/09/23 12:15 Baso % (Auto) 0.5 % (.) 09/09/23 12:15 Nucleat RBC Rel Count 0.0 /100 WBC (0-0.5) 09/09/23 12:15 Neut # (Auto) 9.8 x10E3/uL (1.8-7.7) H 09/09/23 12:15 Lymph # (Auto) 0.4 x10E3/uL (1.00-4.8) L 09/09/23 12:15 Beaver # (Auto) 0.6 x10E3/uL (0.0-0.8) 09/09/23 12:15 [...] Hypothyroidism: Plan Admit to medical floor with monitoring coordinator Lasix 40 mg IV twice daily Monitor [...] signed by Astrid Osman DO> 09/09/23 1439 [facility] Work Phone: 1(142) 251-560803-27-2024 History of Present illness Narrative* Joby Pinedo [...] ECG 5. Primary hypertension 6. Hypercholesteremia 7. nursing home current use of 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 therapy 8. Shortness [...] exam, discussion and plan. [facility] Work Phone: [phone]) 452-766503-27-2024 Instructions* Patient Instructions* Vivian Mack LPN - [...] Provided instructions on exercise. [facility] Work Phone: 1(212) 252-724212-16-2023 Progress note Author Arnulfo Carter [facility] March 13, 2023 10:08am Note Date/Time March 13, 2023 10:08am [facility] [address] [place] [address] Cardiology Progress Note Signed Patient: Shahid Sanchez MR#: [id number] : 1940 Acct:[id number] Age/Sex: 82 / M Adm Date: 3 Loc: Room: [address] [place] [address] Type: [facility] Attending Dr: Arnulfo Carter MD Copies to: [...] clindamycin has been sent to [facility]. He has been instructed to initiate the [...] % (Auto) 67.5 Lymph % (Auto) 21.4 Beaver % (Auto) 7.6 Eos % (Auto) 2.4 Baso % (Auto) 1.1 Nucleat RBC Rel Count 0.0 Neut # (Auto) 3.1 Lymph # (Auto) 1.0 Beaver # (Auto) 0.4 Eos # (Auto) 0.1 [...] atrioventricular block (2) A-fib: Assessment/Problem Details: Longstanding. Protestant of rhythm deemed not possible hence treated with antithrombotic therapy and rate control strategy. Code(s): I48.91 - Unspecified atrial fibrillation Plan Discharge today on clindamycin 600 mg p.o. 3 times daily for 2 days. Other homemeds as before including Eliquis. Documented By: Arnulfo Carter MD [id number] Signed By: <Electronically signed by MD Arnulfo Carter> 03/13/23 1007 [facility] Work Phone: [phone]) 782-539111-28-2023 History of Present illness Narrative* Joby Pinedo [...] a stress test back in 2018 at [facility] that showed questionable area of inferior wall [...] wall ischemia back in 2018 at the [facility] 4. Patient carries a diagnosis of heart failure the last echo that I have was back in 2018 at [facility] showing normal LV systolic function [...] following that we will arrange for either cell maker or defibrillator based on the finding [...] Up In Cardiology ECG 12 Lead 3. 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 4. Chronic systolic heart failure (CMS/HCC) Transthoracic Echo (TTE) Complete 5. Hypertension, unspecified type Transthoracic Echo (TTE) Complete 6. Type 2 diabetes mellitus without complication, unspecified whether fpc insulin use (CMS/HCC) 7. Heart failure, unspecified HF chronicity, unspecified heart failure type (CMS/HCC) 8. Abnormal ECG 9. Immunosuppression (CMS/HCC) 10. Permanent atrial fibrillation (CMS/HCC) documented in this [facility] Work Phone: [phone]) [phone] Instructions* Patient Instructions* Cm Nicole MA - [...] time of your visit. documented in this [facility] Work Phone: [phone]) 989-531804-12-2023 NoteOPERATIVE NOTE OPERATION DATE: 07/08/2022 PREOPERATIVE DIAGNOSIS: [...] on the pathology results. CC: Al Raymundo D.O.[facility]03-08-2023 NoteChief Complaint consultation for positive Cologuard HPI [...] HTN (hypertension) Hypercholesteremia Hypothyroidism Immunosuppression Kidney disease salvage determiner current use of 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 Personal history of [...] repair, Rotator cuff repair. Medications Atrovent 0.03% Cove, 2 spray(s), Nasal, TID Avodart 0.5 mg Cap, 0.5 mg= 1 cap(s), Oral, Daily Crestor 10 mg Tab, 10 mg= 1 tab(s), Oral, Daily Eliquis 5 mg oral tablet, 5 mg= 1 tab(s), Oral, BID Entresto 24 (more content not included)...[facility] Hospital[facility] on above:Result Comment: Electronically Signed By: MARGARITA CABRERA, Yovany Figueredo\Date and Time Signed: 06/03/22 13:54 [id number] NotePROCEDURE: XR ELBOW RT MIN 3 VIEWS [...] Electronically authenticated by: JOCELINE HOUGH Date: 2021-10-22 12:53[facility]02-09-2021 NotePatient Outreach (COVAMN) SHAHID SANCHEZ ([id number]) 1940 M Date Time Provider Department 05/07/20 JEFFRY BLISS During your visit today, we recorded the following information about you: Allergies As of Date: 05/07/2020 (No Known Allergies) Date Reviewed: 01/05/2019 Reviewed by: Teresa Thompson Ma - Fully Assessed Order(s):SARS-COVID VACCINE 1ST DOSE APPT [[id number]] Order #: [id number] FUTURE Prescriptions as of 05/07/2020 Sig: OLMESARTAN 40 MG TABLET Take 40 mg by mouth once aly* OXYBUTYNIN CHLORIDE 5 MG TABL* Take 5 [...] Text Encounter Status:Closed by CLAUDIA BRUNNER on 05/10/20[facility] Consult note Author Arnulfo Carter [facility] September 09, 2023 4:38pm Note Date/Time September 09, 2023 4:38 pm [facility] [address] [place] [address] Cardiology Consult Note Signed Patient: Shahid Sanchez MR#: [id number] : 1940 Acct:[id number] Age/Sex: 82 / M Adm Date: 4 Loc: Room: 9N5797-7 Type: ADM IN Attending Dr: Astrid Osman [...] and no additional complaints, except as documented [facility] Medical History (Updated 09/09/23 @ 16:37 by [...] exenatide microspheres 2 mg/0.85 mL subcutaneous auto-injector ([employer] BCise) 2 mg subcut QWEEK 03/10/23 [History [...] Lymph # (Auto) 0.4 L (1.00-4.8) x10E3/uL Beaver # (Auto) 0.6 (0.0-0.8) x10E3/uL Eos # [...] signed by MD Arnulfo Carter> 09/09/23 1638 [facility] Work Phone: Discharge summary Author Misael Gonzales [facility] September 15, 2023 7:10pm Note Date/Time September 15, 2023 7:10 pm [facility] [address] [place] [address] Discharge Summary Signed Patient: Shahid Sanchez MR#: [id number] : 1940 Acct:[id number] Age/Sex: 82 / M Adm Date: 4 Loc: Room: [address] [place] [address]: Misael Gonzales MD Copies to: DO Misael Alvarez Jr, MD~ Providers Date of Discharge: 09/15/23 Discharging Provider: Misael Gonzales Primary Care Provider: Al Raymundo Consults: 09/09/23 13:55 Consult to Cardiology Routine Comment: Consulting Provider: [employer] Reason For Exam: ?new CHF Has Provider [...] planned for outpatient aortic valve replacement through [facility]. He was medically optimized and [...] with any activity. DISCHARGE INSTRUCTIONS FOR CARDIAC BI CONSULTANT PROCEDURE: Heart Cath The following instructions have [...] cold, numb, blue or white, call the plastic cutter immediately. 4. ACTIVITY: You are advised to [...] bottle, follow the instructions on the bottle. [facility] information [...] % (Auto) 75.5, Lymph % (Auto) 12.1, Beaver % (Auto) 10.2, Eos % (Auto) 1.8, Baso % (Auto) 0.4, Nucleat RBC Rel Count 0.1, Neut # (Auto) 5.0, Lymph # (Auto) 0.8 L, Beaver # (Auto) 0.7, Eos # (Auto) 0.1, Baso # (Auto) 0.0 09/15/23 06:45: POC Glucose 130 09/15/23 05:43: PHA Creatinine Clear 69.89, Sodium 138, Potassium 3.8, Chloride 103, Carbon Dioxide 30.4, Anion Gap 8.4, BUN 21, Creatinine 1.01, Est GFR (CKD-EPI) > 60.0, Glucose 142 H, Calcium 8.1 L 09/14/23 20:49: POC Glucose 233 Documented By: Misael Gonzales MD 4 [id number] Signed By: <Electronically signed by Misael Gonzales MD> 09/15/23 191 [facility] Work Phone: Evaluation + Plan note No data available for this section General Surgery [facility] Evaluation noteNo assessment information available [facility]* Diagnosis Bradycardia- Primary Other specified cardiac dysrhythmias Persistent atrial fibrillation ([facility]/HCC) Atrial fibrillation nursing home current use of 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 therapy Chronic systolic heart failure ([facility]/HCC) Chronic systolic heart failure Hypertension, unspecified type Type 2 diabetes mellitus without complication, unspecified whether fpc insulin use ([facility]) Heart failure, unspecified HF chronicity, unspecified heart failure type ([facility]) Abnormal ECG Nonspecific abnormal electrocardiogram (ECG) (EKG) Immunosuppression ([facility]) Permanent atrial fibrillation ([facility]) Atrial fibrillation [facility] Work Phone: Evaluation note* Diagnosis Persistent atrial fibrillation ([facility]) Atrial fibrillation Bradycardia Other specified cardiac dysrhythmias Chronic systolic heart failure ([facility]) Chronic systolic heart failure Hypertension, unspecified type documented in this encounter [facility] Work Phone: Evaluation note* Diagnosis Onset Date Resolution Status A-fib acute Heart block, AV acute [facility] Work Phone: Evaluation note* Diagnosis Persistent atrial fibrillation ([facility])- Primary Atrial fibrillation Bradycardia Other specified cardiac dysrhythmias Cardiac pacemaker Cardiac pacemaker in situ Abnormal ECG Nonspecific abnormal electrocardiogram (ECG) (EKG) Primary hypertension Unspecified essential hypertension Hypercholesteremia Pure hypercholesterolemia nursing home current use of 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 therapy Shortness of breath documented [facility] Work Phone: Evaluation note* Diagnosis Shortness of breath documented in [facility] encounter [facility] Work Phone: Evaluation note* Diagnosis Onset Date Resolution Status A-fib acute Acute exacerbation of CHF (congestive heart failure) acute Heart block, AV acute Hypercholesteremia acute Hypertension acute Hypothyroidism acute Rheumatoid arthritis acute [facility] Work Phone: Evaluation note* Diagnosis Onset Date Resolution Status A-fib acute Acute exacerbation of CHF (congestive heart failure) acute Acute systolic (congestive) heart failure acute Heart block, AV acute Hypercholesteremia acute Hypertension acute Hypokalemia acute Hypothyroidism acute Rheumatoid arthritis acute Severe aortic stenosis acute Sick sinus syndrome acute [facility] Work Phone: Evaluation note* Diagnosis Onset Date Resolution Status A-fib acute Hypercholesteremia acute Hypertension acute Hypokalemia acute Hypothyroidism acute Rheumatoid arthritis acute Severe aortic stenosis acute Sick sinus syndrome acute Acute exacerbation of CHF (congestive heart failure) resolved Acute systolic (congestive) heart failure resolved Heart block, AV resolved [facility] Work Phone: Evaluation note* Diagnosis Onset Date [...] CKD acute [place] (acute kidney injury) [place] Anemia acute Chronic systolic dysfunction of left ventricle acute GI (gastrointestinal bleed) acute Severe aortic stenosis acute [facility] Work Phone: Evaluation note* Diagnosis Onset Date [...] failure acute [place] (acute kidney injury) [place] Anemia acute Aortic stenosis acute Chronic systolic dysfunction of left ventricle acute GI (gastrointestinal bleed) acute Hyponatremia acute Pulmonary hypertension acute Severe aortic stenosis acute [facility] Work Phone: Evaluation note* Diagnosis Onset Date Resolution Status Anemia acute Aortic stenosis acute Severe aortic stenosis acute Acute anemia resolved Acute hyponatremia resolved Acute kidney injury superimposed on CKD resolved Acute on chronic anemia reso lved Acute on chronic systolic (congestive) heart failure resolved MAYLIN (acute kidney injury) re solved [facility] Work Phone: Evaluation note* Diagnosis Aortic stenosis, severe S/P TAVR (transcatheter aortic valve replacement) documented in [facility] Work Phone: Evaluation note* Diagnosis Nonrheumatic aortic valve stenosis- Primary Single vessel coronary artery disease Coronary atherosclerosis of unspecified type of vessel, [place] or graft Chronic systolic heart failure Persistent atrial fibrillation (Multi) Atrial fibrillation Edema, unspecified type Severe aortic stenosis Aortic valve disorders History of transcatheter aortic valve replacement (TAVR) Pulmonary hypertension (Multi) Other chronic pulmonary heart diseases Primary hypertension Unspecified essential hypertension Hypercholesteremia Pure hypercholesterolemia Abnormal ECG Nonspecific abnormal electrocardiogram (ECG) (EKG) Shortness of breath nursing home current use of 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 therapy Obstructive sleep apnea syndrome Obstructive sleep apnea (adult) (pediatric) BMI 30.0-30.9,adult Former smoker Personal history of tobacco use, presenting hazards to health documented in this encounter [facility] Work Phone: Evaluation note* Diagnosis Nonrheumatic aortic valve stenosis documented in this encounter [facility] Work Phone: Evaluation note* Diagnosis Chronic systolic [...] Edema, unspecified type documented in this encounter [facility] Work Phone: Evaluation note* Diagnosis Aortic stenosis- [...] ejection fraction) (Multi) documented in this encounter [facility] Work Phone: Evaluation note* Diagnosis Recurrent epistaxis- Primary Chronic anticoagulation Encounter for long-term (current) use of 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s Nasal septal deviation Deviated nasal septum Chronic rhinitis [facility]* Diagnosis Nasal septal deviation- Primary Deviated nasal septum Chronic anticoagulation Encounter for long-term (current) use of 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s Recurrent epistaxis documented in this encounter [facility]* Diagnosis Chronic systolic heart failure- Primary Single vessel coronary artery disease Coronary atherosclerosis of unspecified type of vessel, [place] or graft Severe aortic stenosis Aortic valve disorders Pulmonary hypertension (Multi) Other chronic pulmonary heart diseases Persistent atrial fibrillation (Multi) Atrial fibrillation Nonrheumatic aortic valve stenosis Hypercholesteremia Pure hypercholesterolemia Primary hypertension Unspecified essential hypertension History of transcatheter aortic valve replacement (TAVR) Bradycardia Other specified cardiac dysrhythmias Abnormal ECG Nonspecific abnormal electrocardiogram (ECG) (EKG) 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 Shortness of breath Former smoker Personal history of tobacco use, presenting hazards to health BMI 28.0-28.9,adult documented in this encounter [facility] Work Phone: Evaluation note* Diagnosis S/P TAVR (transcatheter aortic valve replacement)- Primary Chronic kidney disease, stage 3b (Multi) documented in this encounter [facility] Work Phone: Hospital Discharge instructions No data available for this section [facility] Discharge instructions Additional Instructions DISCHARGE INSTRUCTIONS [...] with nurse for incision check in the [facility] on 03/23/2023 at 10:30am. 2. Chest x-ray to be done the same day as your device check at [facility] on 06/17/2023. 3. Pacemaker/ICD clinic appointment at [facility] on 06/17/2023 at 1:30pm. 4. Office visit with Dr. Pinedo at the [facility] on 05/29/2023 at 1:00pm. [][facility] Work Phone: Hospital Discharge instructions Additional Instructions Please wear your home oxygen at 3l at rest and increase it to 6l with any activity. DISCHARGE INSTRUCTIONS FOR CARDIAC BI CONSULTANT PROCEDURE: Heart Cath The following instructions have [...] cold, numb, blue or white, call the plastic cutter immediately. 4. ACTIVITY: You are advised to [...] bottle, follow the instructions on the bottle. [facility] is not responsible for incorrect prescription information provided by the patient during their visit. Do not stop your medications without consulting your health care provider. Please take the list with you to your next doctor's appointment.[facility] Work Phone: Hospital Discharge instructions Additional Instructions [...] -Follow up with PCP. - Office number [phone]. [facility] Work Phone: Progress note No data available for this section General Surgery [facility] Reason for referral (narrative)* Consultation (Routine) - Authorized Specialty Diagnoses / Procedures Referred By Contac t Referred To Contact Cardiology Diagnoses Persistent atrial fibrillation (CMS/HCC) Procedures Follow Up In Cardiology Joby Pinedo MD [address] [facility] 2, [place] [address] [place] [id number] Joby Pinedo MD [facility] 2, [address] [address] Referral ID Status Reason Start Date Expiration Date V isits Requested Visits Authorized [id number] Authorized 06/23/2023 06/22/2024 1 1 * Cardiac Stress Testing (Routine) - Pending Review Specialty Diagnoses / Procedures Referred By Fátima t Referred To Contact Radiology Diagnoses Shortness of breath Procedures Nuclear Stress Test CHG MYOCARDIAL SPECT MULTIPLE STUDIES Joby Pinedo MD [facility] [facility] 2, [address] [address] Referral ID Status Reason Start Date Expiration Date V isits Requested Visits Authorized [id number] Pending Review 06/23/2023 06/22/2024 5 5 [facility] Work Phone: Reason for referral (narrative)* Consultation (Routine) - Authorized Specialty Diagnoses / Procedures Referred By Contac t Referred To Contact Cardiology Diagnoses Nonrheumatic aortic valve stenosis Edema, unspecified type Procedures Follow Up In Cardiology Joby Pinedo MD [address] [facility] 2, [address] [address] Joby Pinedo MD [address] [facility] 2, [address] [address] Referral ID Status Reason Start Date Expiration Date V isits Requested Visits Authorized [id number] Authorized 10/13/2023 10/12/2024 1 1 * CV Imaging (Routine) - Pending Review Specialty Diagnoses / Procedures Referred By Contac t Referred To Contact Cardiology Diagnoses Nonrheumatic aortic valve stenosis Pulmonary hypertension (Multi) Procedures Transthoracic Echo Complete AL ECHO TTHRC R-T 2D W/WOM-MODE COMPL SPEC&COLR D Joby Pinedo MD [address] [facility] 2, [address] [address] Referral ID Status Reason Start Date Expiration Date Visits Requested Visits Authorized [id number] Pending Review Perform Procedure 10/13/2023 10/12/2024 1 1 [facility] Work Phone: Reokvw for referral (narrative)No reason for referral information [facility] Work Phone: Reason for visit Narrative* CV Imaging (Routine) - Authorized Specialty Diagnoses / Procedures Referred By Contac t Referred To Contact Cardiology Diagnoses Aortic stenosis, severe S/P TAVR (transcatheter aortic valve replacement) Procedures Transthoracic echo (TTE) complete AL ECHO TTHRC R-T 2D W/WOM-MODE COMPL SPEC&COLR D Andra Molina, 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 [address] [place] [address] Phone: tel: fax: Referral ID Status Reason Start Date Expiration Date Visits Requested Visits Authorized [id number] Authorized Perform Procedure 11/12/2023 11/11/2024 1 1 [facility] Work Phone: Glory for visit Narrative* Auth/Cert Specialty Diagnoses / Procedures Referred By Fátima t Referred To Contact Diagnoses Aortic stenosis, severe Procedures na [facility] Service Area [address] [place] [address] [place] [address] [place] [address] Referral ID Status Reason Start Date Expiration Date Visits Re quested Visits Authorized [id number] 1 1 [facility] Work Phone: Advance Directives No Advanced Directives Records Found Advance Directive Response Recorded Date/ Time Advance Directives No November 2:59pm Advance Directive Response Recorded Date/ Time Advance Directives No November 1:59pm Documents on File Type Date Recorded 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 Living Will 11/15/2023 Date Activated Date Inactivated Comments 11/01/2023 4:50 PM Question Answer Comments Plan of Care: Code Status Discussion Completed Decision Maker: Patient Healthcare Agents on File Name Relationship Healthcare Agent Relationship Communication Lilliana Bullard Daughter First Altern ate Health Care Agent [email or web address] Paddy Mann Daughter Second Alternate Health Care Agent Healthcare Agents on File Name Relationship Healthcare Agent Relationship Communication Lilliana Bullard Daughter First Altern ate Health Care Agent [email or web address] Paddy Mann Daughter Second Alternate Health Care Agent Healthcare Agents on File Name Relationship Healthcare Agent Relationship Communication Lilliana Bullard Daughter First Altern ate Health Care Agent [email or web address] Paddy Mann Daughter Second Alternate Health Care Agent Healthcare Agents on File Name Relationship Healthcare Agent Relationship Communication Lilliana Bullard Daughter First Altern ate Health Care Agent [email or web address] Paddy Mann Daughter Second Alternate Health Care [...] Breathing Difficulty Breathing Difficulty Breathing Difficulty Breathing [facility] Reason for Visit Anemia Aortic stenosis Severe aortic stenosis Acute anemia Acute hyponatremia Acute kidney injury superimposed on CKD Acute on chronic anemia Acute on chronic systolic (congestive) heart failure MAYLIN (acute kidney injury) Chief Complaint Admit Date [facility] April 07, 2024 2 :13pm Chief Complaint Admit Date [facility] April 07, 2024 2 :13pm M05.79 [...] Date soof August 08, 2024 10:59 am [facility] October 06, 2024 9:00 am [facility] October 06, 2024 11:0 0am Chief Complaint Admit Date [facility] October 06, 2024 9:00 am [facility] October 06, 2024 11:0 0am hx [...] valve replacement) Procedures Transthoracic echo (TTE) complete AL ECHO TTHRC R-T 2D W/WOM-MODE COMPL SPEC&COLR D Andra Molina, 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 [address] [place] [id number] Referral ID Status Reason Start Date Expiration Date Visits Requested Visits Authorized [id number] Authorized Perform Procedure 11/12/2023 11/11/2024 1 1 Specialty Diagnoses / Procedures Referred By Contac t Referred To Contact Radiology Diagnoses Nonrheumatic aortic valve stenosis Procedures CT TAVR low contrast chest abdomen pelvis Medardo Tsai, 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 [address] [place] [address] Referral ID Status Reason Start Date Expiration Date Visits Requested Visits Authorized [id number] Pending Review Perform Procedure 09/23/2023 09/22/2024 1 1 Specialty Diagnoses / Procedures Referred By Contac t Referred To Contact Radiology Diagnoses Shortness of breath Procedures Nuclear Stress Test CHG MYOCARDIAL SPECT MULTIPLE STUDIES Joby Pinedo MD [address] [facility] 2, [place] [address] [place] [id number] Referral ID Status Reason Start Date Expiration Date V isits Requested Visits Authorized [id number] Pending Review 06/23/2023 06/22/2024 5 5 Specialty Diagnoses / Procedures Referred By Contac t Referred To Contact Diagnoses Persistent atrial fibrillation (CMS/HCC) Procedures ECG 12 Lead Joby Pinedo MD [address] [facility] 2, [address] [place] [address] Referral ID Status Reason Start Date Expiration Date V isits Requested Visits Authorized [id number] Pending Review 02/23/2023 02/23/2024 1 1 Specialty Diagnoses / Procedures Referred By Contac t Referred To Contact Cardiology Diagnoses Persistent atrial fibrillation (CMS/HCC) Procedures Follow Up In Cardiology Joby Pinedo MD [address] [facility] 2, [place] [phone] Joby Pinedo MD [address] [place] [address] 2, [place] [phone] Referral ID Status Reason Start Date Expiration Date V isits Requested Visits Authorized [id number] Authorized 02/23/2023 02/23/2024 1 1 Specialty Diagnoses / Procedures Referred By Fátima owusu Referred To Contact Cardiology Diagnoses Persistent atrial fibrillation (CMS/HCC) Bradycardia Chronic systolic heart failure (CMS/HCC) Hypertension, unspecified type Procedures Transthoracic Echo (TTE) Complete AL ECHO TRANSTHORC R-T 2D W/WO M-MODE REC F-UP/LMTD AL DOP ECHOCARD COLOR FLOW VELOCITY MAPPING AL DOP ECHOCARD PULSE WAVE W/SPECTRAL F-UP/LMTD STD Joby Pinedo MD [address] [place] [address], [place] [phone] Referral ID Status Reason Start Date Expiration Date Visits Requested Visits Authorized [id number] Pending Review Perform Procedure 02/23/2024 1 1 [...] section and content) DATE CREATED AUTHOR 05/01/2021 [facility] DATE CREATED AUTHOR AUTHOR'S ORGANIZ ATION 07/16/2022 [facility] DATE CREATED AUTHOR AUTHOR'S ORGANIZ ATION 07/22/2022 [facility] DATE CREATED AUTHOR AUTHOR'S ORGANIZ ATION 11/15/2023 [facility] DATE CREATED AUTHOR AUTHOR'S ORGANIZ ATION 01/31/2024 [facility] DATE CREATED AUTHOR AUTHOR'S ORGANIZ ATION 06/21/2024 [facility] DATE CREATED AUTHOR AUTHOR'S ORGANIZ ATION 08/31/2024 [facility] DATE CREATED AUTHOR AUTHOR'S ORGANIZ ATION 11/11/2024 [facility] DATE CREATED AUTHOR AUTHOR'S ORGANIZ ATION 11/19/2024 [facility] Care Teams (unrecognized sec tion [...] Team Status: Active Member Role Status Dates lA Raymundo JR DO Primary Care Provider Active [...] Active Floyd Bolton MD Attending Provider Active Tab Cutter Relationship Specialty Start Date End Date Al Raymundo DO [address] [place] [address] PCP - General Internal Medicine 02/05/23 Tab Cutter Relationship Specialty Start Date End Date Al Raymundo DO [address] [facility] [place] [address] PCP - General Internal Medicine 02/05/23 Team Status: Inactive Member Role Status Dates Arnulfo Carter MD Attending Provider Active Al Raymundo JR DO Primary Care Provider Active Tab Cutter Relationship Specialty Start Date End Date Al Raymundo DO PCP - General Internal Medicine 02/05/23 Team Status: Inactive Member Role Status Dates Joby Pinedo MD Attending Provider Active Start: June 23, 2023 End: June 23, 2023 Al Raymundo JR DO Primary Care Provider Active Start: June 23, 2023 End: June 23, 2023 Tab Cutter Relationship Specialty Start Date End Date Al Raymnudo DO [address] [place] [address] PCP - General Internal Medicine 07/01/23 Tab Cutter Relationship Specialty Start Date End Date Al Raymundo DO [address] [facility] [place], [place] [id number] PCP - General Internal Medicine 07/01/23 Tab Cutter Relationship Specialty Start Date End Date Al Raymundo DO [address] [place] [address] PCP - General Internal Medicine 07/01/23 Team [...] Provider Active Start: September 09, 2023 Joby Pinedo MD Other Provider Active [...] Start: J une 2023 Concetta Horta , [facility]- Other Provider Active Sta rt: September 09, [...] End: September 15, 2023 Concetta Horta , [facility]- Other Provider Active Sta rt: September 09, 2023 End: September 15, 2023 Misael Gonzales MD Attending Provider Active Start: September 09, 2023 End: September 15, 2023 Team Status: Inactive Member Role Status Dates Al Raymundo JR DO Primary Care Provider Active Start: September 22, 2023 End: September 22, 2023 POP Lyle RN [employer]-C Attending Provider Active Start: September 21 End: [...] Attending Provider Active Start: January 06, 2024 Tab Cutter Relationship Specialty Start Date End Date Al Raymundo DO [facility] [place] [address] PCP - General Internal Medicine 07/01/23 Tab Cutter Relationship Specialty Start Date End Date Al Raymundo DO [address] [place] [address] PCP - General Internal Medicine 07/01/23 Tab Cutter Relationship Specialty Start Date End Date Al Raymundo DO [facility] [place] [address] PCP - General Internal Medicine 07/01/23 Tab Cutter Relationship Specialty Start Date End Date Al Raymundo DO [address] [place] [address] PCP - General Internal Medicine 07/01/23 Tab Cutter Relationship Specialty Start Date End Date Al Raymundo DO [facility] [place] [address] PCP - General Internal Medicine 07/01/23 Tab Cutter Relationship Specialty Start Date End Date Al Rayumndo MD [facility] [place], [place] [id number] PCP - General Internal Medicine 07/24/23 Dewey Chamorro DO [address] [place] [address] Otolaryngology 08/24/23 Tab Cutter Relationship Specialty Start Date End Date Al Raymundo MD [address] [place] [address] PCP - General Internal Medicine 07/24/23 Dewey Chamorro DO [address] [place] [address] Otolaryngology 08/24/23 Tab Cutter Relationship Specialty Start Date End Date Al Raymundo MD [address] [place] [address] PCP - General Internal Medicine 07/24/23 Dewey Chamorro DO [address] [place] [address] Otolaryngology 08/24/23 Tab Cutter Relationship Specialty Start Date End Date Al Raymundo MD [address] [place] [address] PCP - General Internal Medicine 07/24/23 Dewey Chamorro DO [address] [place] [address] Otolaryngology 08/24/23 Tab Cutter Relationship Specialty Start Date End Date Al Raymundo DO [address] [place] [address] PCP - General Internal Medicine 07/01/23 Team Status: Inactive Member Role Status Dates Al Raymundo JR DO Primary Care Provider Active Start: August 08, 2024 End: August 08, 2024 Floyd Bolton MD Attending Provider Active art: August 08, 2024 End: August 08, 2024 Tab Cutter Relationship Specialty Start Date End Date Breanne Al JungDO [address] [place] [address] PCP - General Internal Medicine 07/01/23 Reason for Visit (unrecogniz ed section and content) Reason Comments Establish Care Breanne-bradycardia,a bn,holter Specialty Diagnoses / Procedures Referred By Contac t Referred To Contact Diagnoses Persistent atrial fibrillation (CMS/HCC) Procedures ECG 12 Lead Joby Pinedo MD [address] [place] [address] [facility] 2, [address] [address] Referral ID Status Reason Start Date Expiration Date V isits Requested Visits Authorized [id number] Pending Review 02/23/2023 02/23/2024 1 1 Specialty Diagnoses / Procedures Referred By Contac t Referred To Contact Cardiology Diagnoses Persistent atrial fibrillation (CMS/HCC) Bradycardia Chronic systolic heart failure (CMS/HCC) Hypertension, unspecified type Procedures Transthoracic Echo (TTE) Complete AL ECHO TRANSTHORC R-T 2D W/WO M-MODE REC F-UP/LMTD AL DOP ECHOCARD COLOR FLOW VELOCITY MAPPING AL DOP ECHOCARD PULSE WAVE W/SPECTRAL F-UP/LMTD STD Joby Pinedo MD [address] [facility] 2, [address] [address] Referral ID Status Reason Start Date Expiration Date Visits Requested Visits Authorized [id number] Pending Review Perform Procedure 3 02/23/2024 1 1 Reason Comments Follow-up 15 wk PC Insert Specialty Diagnoses / Procedures Referred By Contac t Referred To Contact Cardiology Diagnoses Bradycardia Cardiac pacemaker Procedures Follow Up In Cardiology Joby Pinedo MD [address], [address] [address] Joby Pinedo MD [address], [address] [address] Referral ID Status Reason Start Date Expiration Date V isits Requested Visits Authorized [id number] Authorized 03/02/2023 03/01/2024 1 1 Specialty Diagnoses / Procedures Referred By Contac t Referred To Contact Radiology Diagnoses Shortness of breath Procedures Nuclear Stress Test CHG MYOCARDIAL SPECT MULTIPLE STUDIES Joby Pinedo MD [address] [place] [address] 2, [place] [phone] Referral ID Status Reason Start Date Expiration Date V isits Requested Visits Authorized [id number] Pending Review 06/23/2023 06/22/2024 5 5 Reason Comments Follow-up 3m with ECHO results Specialty Diagnoses / Procedures Referred By Contac t Referred To Contact Cardiology Diagnoses Nonrheumatic aortic valve stenosis Edema, unspecified type Procedures Follow Up In Cardiology Joby Pinedo MD [address] [place] [address] 2, [place] [phone] Phone: tel: fax: Joby Pinedo MD [address] [place] [address] 2, [address] [address] Phone: tel: fax: Referral ID Status Reason Start Date Expiration Date V isits Requested Visits Authorized [id number] Authorized 10/13/2023 10/12/2024 1 1 Specialty Diagnoses / Procedures Referred By Contac t Referred To Contact Radiology Diagnoses Nonrheumatic aortic valve stenosis Procedures CT TAVR low contrast chest abdomen pelvis Medardo Tsai, 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 [address] [place] [address] Referral ID Status Reason Start Date Expiration Date Visits Requested Visits Authorized [id number] Pending Review Perform Procedure 09/23/2023 09/22/2024 1 1 Reason Comments Hospital Follow-up Specialty Diagnoses / Procedures Referred By Contac t Referred To Contact Cardiology Diagnoses Persistent atrial fibrillation (Multi) Procedures Follow Up In Cardiology Joby Pinedo MD [address] [place] [address] 2, [address] [address] Joby Pinedo MD [address] [place] [address] 2, [address] [address] Referral ID Status Reason Start Date Expiration Date V isits Requested Visits Authorized [id number] Authorized 06/23/2023 06/22/2024 1 1 Reason Comments Epistaxis (Nose Bleed) Nosebleeds / last seen in July Reason Comments Epistaxis (Nose Bleed) 3 week [place]en[place] noseb kaley Reason Comments Epistaxis (Nose Bleed) 3 week [place] Reason Comments Follow-up 6 month with EKG, ch [facility] systolic heart failure Specialty Diagnoses / Procedures Referred By Contac t Referred To Contact Cardiology Diagnoses Chronic systolic heart failure Procedures Follow Up In Cardiology Joby Pinedo MD [address] [place] [address], [place] [phone] Phone: tel: fax: Joby Pinedo MD [address] [place] [address], [address] [address] Phone: tel: fax: Referral ID Status Reason Start Date Expiration Date V isits Requested Visits Authorized [id number] Authorized 01/25/2024 01/24/2025 1 1 Scheduled Active [...] 0613 (Given - Provider: Joselin Cheatham RN) lidocaine 4 % patch 1 patch [...] LPN) 2100 (Due) 2100 (Due) sodium chloride ([place]) 0.65 % nasal spray 1 spray () [...] (Dose Auto Held - Provider: Micah Mccallum APRN-PRINTING [employer] TENDER) tamsulosin (Flomax) 24 hr capsule 0.4 mg [...] (Unheld by provider - Provider: Andra Molina APRN-PRINTING [employer] TENDER) heparin 25,000 Units in dextrose 5% 250 [...] resume nomogram. 2117 (New Bag - Provider: oJselin Cheatham, PATRICIA) 0152 (Rate/Dose Change - Provider: [...] pain scores based on patient preference? Yes 6211 (Given - Provider: Yang Schumacher RN) aspirin [...] BE BASED ON THE PRIMARY CLINICAL RECORDS. [employer] provides no warranty or guarantee of the accuracy or completeness of information in this document.
[2024-12-05 11:28] LABS: Cholesterol 100 mg/dL (<=200); HDL Cholesterol 44 mg/dL (40-60); Triglycerides 118 mg/dL (<=150); VLDL CHOLESTEROL 23.6 mg/dL
[2024-12-05 12:09] LABS: NT Pro B Type Natriuretic Pept 2456.0 pg/mL (<=1800.0)
== END 2024-12-05 09:27 | disposition home or self-care (01) ==
PROVIDERS: PCP Internal Medicine; Visit Provider Internal Medicine
DX: D50.9 Iron deficiency anemia, unspecified (principal); N18.31 Chronic kidney disease, stage 3a; R06.02 Shortness of breath; E11.65 Type 2 diabetes mellitus with hyperglycemia
CPT/HCPCS: 36415; 80061; 83036; 83880

== ENCOUNTER 2025-03-19 12:59 | Outpatient (RCR) | payer MEDICARE, SELFPAY ==
[2025-03-07 12:30] VITALS: BP 138/69; PULSE 70; TEMP 36.4; O2SAT 92
[2025-03-07 13:18] LABS: Hematocrit 21.6 % (42.0-54.0); Hemoglobin 6.9 g/dL (14.0-18.0)
[2025-03-07 14:18] VITALS: BP 138/61; PULSE 70; TEMP 35.8; O2SAT 93
--- NOTE | 2025-03-07 14:26 | PC.NURSE ---
1418: 1 Unit PRBc's initiated at this time. VSS. Pt relays comfort.
[2025-03-07 14:38] VITALS: BP 147/72; TEMP 36.3; O2SAT 93
--- NOTE | 2025-03-07 14:39 | PC.NURSE ---
1438: Tolerating PRBC without s&s of transfusion reaction. VSS.
[2025-03-07 15:18] VITALS: BP 155/89; PULSE 92; TEMP 35.8; O2SAT 94
--- NOTE | 2025-03-07 15:30 | PC.NURSE ---
1518: Pt. without change. VSS. Denies needs or c/o.
[2025-03-07 15:32] LABS: Iron 20.0 ug/dL (65.0-175.0)
[2025-03-07 15:38] VITALS: BP 146/69; PULSE 72; TEMP 36.4; O2SAT 96
[2025-03-07 16:10] VITALS: BP 144/78; PULSE 77; TEMP 36.1; O2SAT 94
[2025-03-09 14:33] LABS: Hematocrit 24.1 % (42.0-54.0); Hemoglobin 7.8 g/dL (14.0-18.0)
[2025-03-09 14:38] VITALS: PULSE 70; TEMP 36.4; O2SAT 97
[2025-03-09 14:54] VITALS: BP 130/63; PULSE 70; TEMP 36.3; O2SAT 95
[2025-03-09] MEDS: 0.9 % SODIUM CHLORIDE 250 ML 10 ML IV (15:00)
[2025-03-09 15:04] VITALS: BP 130/63; PULSE 84; TEMP 36.6; O2SAT 96
[2025-03-09 15:23] VITALS: BP 116/78; PULSE 76; TEMP 36; O2SAT 96
[2025-03-09 16:15] VITALS: BP 118/74; PULSE 72; TEMP 36.1
--- NOTE | 2025-03-09 16:15 | PC.NURSE ---
Tolerating prbc's without any s/s of reaction, rate increased to 240 ml/hr. reclining in chair.
[2025-03-09 16:47] VITALS: BP 145/68; PULSE 68; TEMP 35.9; O2SAT 98
[2025-03-12 13:35] VITALS: BP 135/58; PULSE 68; TEMP 36.3; O2SAT 94
[2025-03-12] MEDS: FERRIC CARBOXYMALTOSE 750 MG in 0.9 % SODIUM CHLORIDE 250 ML 795 MG IV (13:38)
[2025-03-19 13:04] VITALS: BP 123/54; PULSE 60; TEMP 35.6; O2SAT 93
[2025-03-19] MEDS: FERRIC CARBOXYMALTOSE 750 MG in 0.9 % SODIUM CHLORIDE 250 ML 795 MG IV (13:23)
--- NOTE | 2025-03-19 14:35 | PC.NURSE ---
1430 Released per wheelchair to elizabeth dorman, daughter accompanied patient.
== END 2025-03-28 23:59 | disposition home or self-care (01) ==
LOC: INF 12:59
PROVIDERS: PCP Internal Medicine; Visit Provider Internal Medicine
DX: K92.2 Gastrointestinal hemorrhage, unspecified (principal); D63.8 Anemia in other chronic diseases classified elsewhere
CPT/HCPCS: 36415; 36430; 36592; 83540; 85014; 85018; 86850; 86900; 86901; 86923; 96365; J1439; P9016